=== PATIENT | female | born 1970 ===

== ENCOUNTER → 2022-07-25 13:51 | Outpatient (BNVA) | payer OTHER, SELFPAY | PROVIDERS: PCP Family Medicine; Visit Provider Physician Assistant | DX: M51.26 Other intervertebral disc displacement, lumbar region (principal) | CPT/HCPCS: 99212 ==

== ENCOUNTER 2022-08-25 12:40 | Outpatient (REF) | payer OTHER, SELFPAY ==
--- NOTE | ~2022-08-25 | MR_ITS ---
EXAMINATION: MR LUMBAR SPINE WITHOUT AND WITH CONTRAST CLINICAL INFORMATION: Other intervertebral disc displacement, lumbar region. Status post surgery. COMPARISON: Lumbar spine MRI 12/18/2021. TECHNIQUE: MRI of the lumbar spine was obtained using routine sequences without and with intravenous contrast. A total of 7 mL Gadavist was intravenously administered. FINDINGS: The lumbar vertebral bodies maintain normal heights and alignment. There is mild disc height loss at L4-L5. No bone marrow edema is seen. The distal spinal cord appears normal. The conus medullaris terminates normally at the T12-L1 level. There is no abnormal cauda equina nerve root enhancement. The extraspinal soft tissues are within normal limits. SPINAL LEVELS: L1-L2: No posterior disc abnormality. No spinal canal or neural foraminal stenosis. L2-L3: Unchanged shallow left foraminal protrusion. No spinal canal or neural foraminal stenosis. L3-L4: Postsurgical changes seen within the soft tissues presumably related to microdiscectomy. Small shallow left foraminal protrusion, decreased in size from prior and without compression of the exiting left L3 nerve root. No spinal canal stenosis. Mild facet arthropathy. L4-L5: Disc bulging with moderate facet arthropathy. Bilateral subarticular stenosis with compression of both traversing L5 nerve roots in the subarticular zones without significant change. No neural foraminal stenosis. L5-S1: Disc bulging with moderate facet arthropathy. Mild narrowing left subarticular zone without significant change. MR/MR lumbar spine wo/w con IMPRESSION: 1. At L4-L5 there is bilateral subarticular stenosis with compression of both traversing L5 nerve roots without significant change. 2. At L3-L4 there is interval decrease size of the left foraminal protrusion without compression of the exiting left L3 nerve root. 3. At L2-L3 there is unchanged shallow left foraminal protrusion without nerve root compression.
== END 2022-08-25 12:41 | disposition home or self-care (01) ==
LOC: HO.MRI 12:40
PROVIDERS: PCP Family Medicine; Visit Provider Physician Assistant
DX: M51.26 Other intervertebral disc displacement, lumbar region (principal)
CPT/HCPCS: 72158; A9585

== ENCOUNTER → 2022-08-29 15:16 | Outpatient (BNVA) | payer OTHER, SELFPAY | PROVIDERS: PCP Family Medicine; Visit Provider Physician Assistant | DX: M51.26 Other intervertebral disc displacement, lumbar region (principal); M54.40 Lumbago with sciatica, unspecified side | CPT/HCPCS: 99212 ==

== ENCOUNTER 2022-10-30 11:21 | Day surgery (SDC) | payer OTHER, SELFPAY ==
--- NOTE | 2022-09-25 | ECG_ITS ---
Test Reason : PREOP Blood Pressure : / mmHG Vent. Rate : 056 BPM Atrial Rate : 056 BPM P-R Int : 190 ms QRS Dur : 098 ms QT Int : 416 ms P-R-T Axes : 059 005 -01 degrees QTc Int : 401 ms Sinus bradycardia Nonspecific T wave abnormality Abnormal ECG No previous ECGs available Referred By: Genna Still Electronically Signed By:SCOTT MAS
[2022-09-25 13:35] VITALS: BP 132/87; PULSE 70; RESP 20; O2SAT 96; BMI 31.4
--- NOTE | 2022-09-25 13:59 | P.CONAN_ITS ---
HPI - Anesthesia Eval Consult details Narrative: 52yo F for Left L4-5 Lumbar Laminectomy/disc/decompression, 10/30/22 Medically optimized Chronic opioid No recent illness No chest pain. Chronic SOB at baseline. Activity limited to back pain MARILIN with CPAP QHS FBS ~140-150 PMFSH Active Problems Active Problems: All Active Problems (Updated 09/24/22 @ 13:53 by Nola Parmar RN) Lumbar disc herniation (Acute) Past Medical History Medical History (Updated 10/30/22 @ 13:21 by SYLVIE Wise) Anxiety Asthma Bipolar 1 disorder Depression Diabetes Elevated cholesterol GERD (gastroesophageal reflux disease) HTN (hypertension) Numbness Sleep apnea Family History Family history of problems with anesthesia: No Surgical History Surgical History (Updated 09/24/22 @ 13:55 by Nola Parmar RN) History of back surgery Hx of carpal tunnel repair Hx of section Hx of cholecystectomy Hx of knee surgery History of Problems with Anesthesia: No Social History Social History Are you a primary career development coordinator/teacher to a significant other at home: No Do you presently have visiting nurse or other home services: Yes Patient Tobacco Use Status: Current everyday Tobacco user Tobacco use type: Cigarette Cigarettes Per Day: 10 Meds Allergies Allergy/AdvReac Type Severity Reaction Status Date / Time morphine [From MS Contin] Allergy Itching Verified 09/24/22 13:56 quetiapine [From Seroquel] Allergy Swelling Verified 09/24/22 13:55 Home Medications Medication Instructions Recorded Confirmed Last Taken Type acetaminophen 325 mg tablet 650 mg PO TID PRN Headache 09/25/22 09/25/22 Unknown History albuterol sulfate 2.5 mg/3 mL 2.5 mg inhalation BID PRN Wheezing 09/25/22 09/25/22 10/30/22 History (0.083 %) solution for nebulization amlodipine 5 mg tablet 5 mg PO DAILY 09/25/22 09/25/22 Unknown History cetirizine 10 mg tablet 10 mg PO DAILY 09/25/22 09/25/22 Unknown History cholecalciferol (vitamin D3) 125 125 mcg PO DAILY 09/25/22 09/25/22 Unknown History mcg (5,000 unit) tablet clonazepam 0.5 mg tablet 0.5 mg PO BID PRN Anxiety 09/25/22 09/25/22 Unknown History clonidine HCl 0.3 mg tablet 0.3 mg PO BEDTIME 09/25/22 09/25/22 Unknown History dulaglutide 0.75 mg/0.5 mL 0.75 mg subcut QWEEK 09/25/22 09/25/22 10/25/22 History subcutaneous pen injector (Trulicity) duloxetine 60 mg capsule,delayed 120 mg PO DAILY 09/25/22 09/25/22 Unknown History release empagliflozin 10 mg tablet 10 mg PO DAILY 09/25/22 09/25/22 Unknown History (Jardiance) fluticasone 500 mcg-salmeterol 50 1 ea inhalation DAILY 09/25/22 09/25/22 Unknown History mcg/dose blistr powdr for inhalation (Advair Diskus) fluticasone propionate 50 2 spray intranasal DAILY 09/25/22 09/25/22 Unknown History mcg/actuation nasal spray,suspension ibuprofen 800 mg tablet 800 mg PO Q8H PRN Pain 09/25/22 09/25/22 Unknown History insulin glargine 100 unit/mL 40 unit subcut BEDTIME PRN 09/25/22 09/25/22 10/29/22 History subcutaneous solution (Lantus Hyperglycemia U-100 Insulin) lidocaine 5 % topical patch 1 patch topical DAILY 09/25/22 09/25/22 Unknown History lisinopril 20 mg tablet 20 mg PO DAILY 09/25/22 09/25/22 Unknown History mirtazapine 30 mg tablet 30 mg PO BEDTIME 09/25/22 09/25/22 Unknown History omeprazole 40 mg capsule,delayed 40 mg PO DAILY 09/25/22 09/25/22 Unknown History release oxycodone 15 mg tablet 15 mg PO TID PRN Pain 09/25/22 09/25/22 Unknown History prazosin 2 mg capsule 2 mg PO BEDTIME 09/25/22 09/25/22 Unknown History sennosides 8.6 mg-docusate sodium 2 tab PO BEDTIME 09/25/22 09/25/22 Unknown History 50 mg tablet (Senna Plus) tizanidine 4 mg tablet 4 mg PO TID 09/25/22 09/25/22 Unknown History trazodone 50 mg tablet 50 mg PO BEDTIME 09/25/22 09/25/22 Unknown History Exam Exam Date and Time: September 25, 2022 1359 Height,Weight and Vital Signs: Height 5 ft 1 in Weight 75.4 kg Last Vital Signs Pulse 70 09/25/22 13:35 Resp 20 09/25/22 13:35 BP 132/87 09/25/22 13:35 Pulse Ox 96 09/25/22 13:35 O2 Del Method Room Air 09/25/22 13:35 Pertinent Lab Results Pertinent Lab Results: Lab Results 09/25/22 09/25/22 Range/Units 14:23 14:23 WBC 9.1 (4.8-10.8) X10*3/uL RBC 5.08 (4.20-5.50) X10*6/uL Hgb 14.3 (12.0-16.0) g/dl Hct 43.0 (37.0-47.0) % MCV 84.6 (80.0-98.0) fL MCH 28.1 (27.0-33.0) pg MCHC 33.3 (31.0-35.0) g/dl RDW 14.8 (11.0-16.0) % Plt Count 297 (160-400) X10*3/uL MPV 10.2 (9.4-12.3) fL Absolute Nucleated RBC 0.000 (0.0-0.012) X10*3/uL Nucleated RBC % (auto) 0.0 (0.0-0.2) /100WBC Sodium 140 (135-145) mmol/L Potassium 4.0 (3.3-5.1) mmol/L Chloride 105 (96-108) mmol/L Carbon Dioxide 26 (22-29) mmol/L Anion Gap 13 (12-20) BUN 12 (9-16) mg/dL Creatinine 0.69 (0.5-1.4) mg/dL Estim Creat Clear Calc 87.6 Estimated GFR > 60 Random Glucose 96 (60-115) mg/dL Calcium 9.8 (8.4-10.2) mg/dL Narrative Narrative: EKG 09/2022 Vent. Rate : 056 BPM ? ? Atrial Rate : 056 BPM ?? P-R Int : 190 ms? QRS Dur : 098 ms ? ? QT Int : 416 ms ? ? ? P-R-T Axes : 059 005 -01 degrees ?? QTc Int : 401 ms ? Sinus bradycardia Nonspecific T wave abnormality Abnormal ECG No previous ECGs available (No change c/w outside facility) Airway Mallampati Class: I TM Dist: >3cm Neck ROM: Limited Loose/Missing/Broken Teeth: Yes (temporary crown right upper) Heart: RRR Lungs: CTAB Assessment and Plan Assessment Anesthesia Assessment: Anesthesia Plan Discussed, Smoking Cess. Discussed and PAT Visit Final Anesthetic Review Family History of Problems with Anesthesia: No History of Problems with Anesthesia: No
[2022-09-25 14:53] LABS: Hemoglobin 14.3 g/dl (12.0-16.0); Mean Corpuscular HGB Conc 33.3 g/dl (31.0-35.0); Mean Corpuscular Hemoglobin 28.1 pg (27.0-33.0); Mean Corpuscular Volume 84.6 fL (80.0-98.0); Mean Platelet Volume 10.2 fL (9.4-12.3); Platelet Count 297 X10*3/uL (160-400); Red Blood Count 5.08 X10*6/uL (4.20-5.50); Red Cell Distribution Width 14.8 % (11.0-16.0); White Blood Count 9.1 X10*3/uL (4.8-10.8)
[2022-09-25 16:12] LABS: Anion Gap 13 (12-20); Blood Urea Nitrogen 12 mg/dL (9-16); Calcium 9.8 mg/dL (8.4-10.2); Carbon Dioxide 26 mmol/L (22-29); Chloride 105 mmol/L (96-108); Creatinine Clr Calc Pharmacy 87.6; Estimated Glomerular Filt Rate > 60; Glucose Random 96 mg/dL (60-115); Sodium 140 mmol/L (135-145)
[2022-10-30] VITALS (13 sets, daily range): BP systolic 104–155; BP diastolic 66–93; PULSE 63–86; RESP 16–24; TEMP 36.1–36.4; O2SAT 93–98
--- NOTE | ~2022-10-30 | FL_ITS ---
EXAMINATION: XR FLUOROSCOPY WITH IMAGES CLINICAL INFORMATION: L4-L5 lumbar laminectomy-decompression, left. COMPARISON: None available. TECHNIQUE: Fluoroscopy Supervised By: Dr. Perez Colmenares. Fluoroscopy Time: 0.0 minutes (less than 10 seconds). Cumulative Dose: 1.25 mGy. DAP: 0.0201 Gycm2. Images: 1. FINDINGS: Single lateral interoperative view of the lumbar spine demonstrates instrument placement projecting over the posterior elements at the L4-L5 level. FL/FL guidance in OR IMPRESSION: Fluoroscopy for pain management procedure.
--- NOTE | 2022-10-30 07:13 | P.HPSUR_ITS ---
Pre-Procedural Eval Section A Date of Service: 10/30/22 The patient is an INPATIENT: No Changes since office visit: No Cold of Flu in the past 2 weeks, No New Medical Problems, No Changes in Medication and No Patient answered all questions The History & Physical has been completed within 30 days and I have reviewed it.: No Section B Chief Complaint: Lumbago with sciatica,intervertebral disc displace Allergies: Allergies Allergy/AdvReac Type Severity Reaction Status Date / Time morphine [From MS Contin] Allergy Itching Verified 09/24/22 13:56 quetiapine [From Seroquel] Allergy Swelling Verified 09/24/22 13:55 Review of Systems Sugical H&P ROS: Negative: Constitution, Cardiovascular, Respiratory, N eurological, Psychiatric, Hem-Onc, Allergic/Immunologic, Gastrointestinal, Genitourinary, Musculoskeletal, Integumentary, Endocrine and Eyes/Ears/Nose/Throat Exam Surgical H&P Exam: Not Evaluated: HEENT, Not Evaluated: Heart, Not Evaluated: Lungs, Not Evaluated: Extremities, Not Evaluated: Abdomen, Not Evaluated: Skin and Not Evaluated: Neurological Plan Diagnosis/Plan: Unchanged I have reviewed the history and physical and performed a pertinent physical examination on my patient. No changes have occurred unless specified. left L4-5 laminotomy and decompression Time Spent With Patient Time: Total time managing care of this patient today _10___ minutes.
--- NOTE | 2022-10-30 11:38 | P.CONAN_ITS ---
[facility] Active Problems Active Problems: All Active Problems (Updated 09/24/22 @ 13:53 by Nola Parmar RN) Lumbar disc herniation (Acute) Past Medical History Medical History (Updated 09/24/22 @ 13:53 by Nola Parmar RN) Anxiety Asthma Bipolar 1 disorder Depression Diabetes Elevated cholesterol GERD (gastroesophageal reflux disease) HTN (hypertension) Numbness Sleep apnea Family History Family history of problems with anesthesia: No Surgical History Surgical History (Updated 09/24/22 @ 13:55 by Nola Parmar RN) History of back surgery Hx of carpal tunnel repair Hx of section Hx of cholecystectomy Hx of knee surgery History of Problems with Anesthesia: No Social History Social History Are you a primary insurance healthcare consultant to a significant other at home: No Do you presently have visiting nurse or other home services: Yes Patient Tobacco Use Status: Current everyday Tobacco user Tobacco use type: Cigarette Cigarettes Per Day: 10 Use of substances other than those prescribed or required for medical reasons: No Have you been hit, kicked, punched, or otherwise hurt by someone within the past year? If so, by whom?: No Are you DNR?: No Advance Directives: No Advance Directives Information Provided: Yes Advance Directives on File: No Recently lost weight without trying: No Eating poorly because of decreased appetite: No Nutrition Risks: No Nutritional Risk Patient : No : No Poor oral hygiene: Yes (crown on the top) Meds Allergies Allergy/AdvReac Type Severity Reaction Status Date / Time morphine [From MS Contin] Allergy Itching Verified 09/24/22 13:56 quetiapine [From Seroquel] Allergy Swelling Verified 09/24/22 13:55 Active Medications: Current Medications Albuterol Sulfate (Albuterol Sulfate (0.083%) 2.5 Mg/3 Ml Vial.Neb) 2.5 mg INHALE ONCE PRN PRN Reason: Shortness of Breath/Wheezing Lactated Ringer's (Lr) 1,000 mls @ 100 mls/hr IVCONT .Q10H [facility] Home Medications Medication Instructions Recorded Confirmed Last Taken Type acetaminophen 325 mg tablet 650 mg PO TID PRN Headache 09/25/22 09/25/22 Unknown History albuterol sulfate 2.5 mg/3 mL 2.5 mg inhalation BID PRN Wheezing 09/25/22 09/25/22 Unknown History (0.083 %) solution for nebulization amlodipine 5 mg tablet 5 mg PO DAILY 09/25/22 09/25/22 Unknown History cetirizine 10 mg tablet 10 mg PO DAILY 09/25/22 09/25/22 Unknown History cholecalciferol (vitamin D3) 125 125 mcg PO DAILY 09/25/22 09/25/22 Unknown History mcg (5,000 unit) tablet clonazepam 0.5 mg tablet 0.5 mg PO BID PRN Anxiety 09/25/22 09/25/22 Unknown History clonidine HCl 0.3 mg tablet 0.3 mg PO BEDTIME 09/25/22 09/25/22 Unknown History dulaglutide 0.75 mg/0.5 mL 0.75 mg subcut QWEEK 09/25/22 09/25/22 Unknown History subcutaneous pen injector (Trulicity) duloxetine 60 mg capsule,delayed 120 mg PO DAILY 09/25/22 09/25/22 Unknown History release empagliflozin 10 mg tablet 10 mg PO DAILY 09/25/22 09/25/22 Unknown History (Jardiance) fluticasone 500 mcg-salmeterol 50 1 ea inhalation DAILY 09/25/22 09/25/22 Unknown History mcg/dose blistr powdr for inhalation (Advair Diskus) fluticasone propionate 50 2 spray intranasal DAILY 09/25/22 09/25/22 Unknown History mcg/actuation nasal spray,suspension ibuprofen 800 mg tablet 800 mg PO Q8H PRN Pain 09/25/22 09/25/22 Unknown History insulin glargine 100 unit/mL 40 unit subcut BEDTIME PRN 09/25/22 09/25/22 Unknown History subcutaneous solution (Lantus Hyperglycemia U-100 Insulin) lidocaine 5 % topical patch 1 patch topical DAILY 09/25/22 09/25/22 Unknown History lisinopril 20 mg tablet 20 mg PO DAILY 09/25/22 09/25/22 Unknown History mirtazapine 30 mg tablet 30 mg PO BEDTIME 09/25/22 09/25/22 Unknown History omeprazole 40 mg capsule,delayed 40 mg PO DAILY 09/25/22 09/25/22 Unknown History release oxycodone 15 mg tablet 15 mg PO TID PRN Pain 09/25/22 09/25/22 Unknown History prazosin 2 mg capsule 2 mg PO BEDTIME 09/25/22 09/25/22 Unknown History sennosides 8.6 mg-docusate sodium 2 tab PO BEDTIME 09/25/22 09/25/22 Unknown History 50 mg tablet (Senna Plus) tizanidine 4 mg tablet 4 mg PO TID 09/25/22 09/25/22 Unknown History trazodone 50 mg tablet 50 mg PO BEDTIME 09/25/22 09/25/22 Unknown History Exam Exam Date and Time: October 30, 2022 1138 Height,Weight and Vital Signs: Height 5 ft 1 in Weight 75.4 kg Last Vital Signs Pulse 70 09/25/22 13:35 Resp 20 09/25/22 13:35 BP 132/87 09/25/22 13:35 Pulse Ox 96 09/25/22 13:35 O2 Del Method Room Air 09/25/22 13:35 Pertinent Lab Results Pertinent Lab Results: Laboratory Tests 09/25/22 09/25/22 14:23 14:23 WBC 9.1 RBC 5.08 Hgb 14.3 Hct 43.0 MCV 84.6 MCH 28.1 MCHC 33.3 RDW 14.8 Plt Count 297 MPV 10.2 Absolute Nucleated RBC 0.000 Nucleated RBC % (auto) 0.0 Sodium 140 Potassium 4.0 Chloride 105 Carbon Dioxide 26 Anion Gap 13 BUN 12 Creatinine 0.69 Estim Creat Clear Calc 87.6 Estimated GFR > 60 Random Glucose 96 Calcium 9.8 Airway Mallampati Class: II TM Dist: >3cm Neck ROM: Full Assessment and Plan Assessment Anesthesia Assessment: Anesthesia Plan Discussed and Chart Reviewed Final Anesthetic Review Family History of Problems with Anesthesia: No History of Problems with Anesthesia: No NPO: Yes ASA Class: III Final Preanesthetic Review: No Changes in Pt Med Stat, Meds/Allgs Chart Reviewed, Consent Obtained/Reviewed and Anes Risks/Benef Reviewed Patient Risk: Intermediate Procedure Risk: Intermediate Anesthetic Plan Anesthetic Plan: GA Disposition: Standard PACU
[2022-10-30 12:09] LABS: Glucose, Whole Blood 138 mg/dL (60-115)
[2022-10-30] MEDS: methocarbamoL 750 MG TABLET PO (12:31)
[2022-10-30] MEDS: Lactated Ringers 1,000 ML 100 ML IVCONT (12:31)
[2022-10-30] MEDS: Gabapentin 300 MG CAPSULE PO (12:31)
--- NOTE | 2022-10-30 13:20 | P.DS_ITS ---
DS: Providers Provider Date of Service: 10/30/22 Primary care physician: Leonora Bai NP DS: Diagnosis Discharge Diagnosis (1) Lumbago: Status: Acute DS: Summary Time Spent with Patient Time attestation: Total time managing care of this patient today ____ minutes. Discharge coordination time: Less than 30 minutes Quality: Safe Use of Opioids Does Pt have an Active Cancer Diagnosis on the Problem List?: No Quality: Stroke Does the patient have a stroke diagnosis?: No Physical Exam Vital Signs: Vital Signs: Last Vital Signs Temp 97.0 F 10/30/22 12:01 Pulse 63 10/30/22 12:01 Resp 18 10/30/22 12:01 BP 146/80 H 10/30/22 12:01 Pulse Ox 97 10/30/22 12:01 O2 Del Method Room Air 10/30/22 12:01 BMI result Body Mass Index 31.4 DS: Data Data Completed and Pending Labs on day of discharge: Laboratory Results - last 24 hr 10/30/22 12:05 POC Glucose 138 H Discharge Plan Discharge Patient Disposition: Home, Self-Care Referrals: Leonora Bai NP [Primary Care Provider] - 1 Week Discharge Medications: Continued insulin glargine [Lantus U-100 Insulin] 100 unit/mL solution 40 unit subcut BEDTIME PRN (Reason: Hyperglycemia) Patient Comments: 10 units lantus last pm Dose Change Rx Instructions: if Blood sugar is greater that 140 duloxetine 60 mg capsule,delayed release(DR/EC) 120 mg PO DAILY cetirizine 10 mg tablet 10 mg PO DAILY tizanidine 4 mg tablet 4 mg PO TID cholecalciferol (vitamin D3) 125 mcg (5,000 unit) tablet 125 mcg PO DAILY fluticasone propionate 50 mcg/actuation [place],Suspension 2 spray INTRANASAL DAILY Rx Instructions: administer into each nostril fluticasone propion-salmeterol [Advair Diskus] 500-50 mcg/dose blister with device 1 ea inhalation DAILY sennosides-docusate sodium [Senna Plus] 8.6-50 mg tablet 2 tab PO BEDTIME oxycodone 15 mg tablet 15 mg PO TID PRN (Reason: Pain) lidocaine 5 % adhesive patch,medicated 1 patch topical DAILY prazosin 2 mg capsule 2 mg PO BEDTIME clonazepam 0.5 mg tablet 0.5 mg PO BID PRN (Reason: Anxiety) mirtazapine 30 mg tablet 30 mg PO BEDTIME albuterol sulfate 2.5 mg /3 mL (0.083 %) solution for nebulization 2.5 mg inhalation BID PRN (Reason: Wheezing) Trulicity 0.75 mg/0.5 mL Pen Injector 0.75 mg SUBCUT QWEEK Rx Instructions: thursday acetaminophen 325 mg Tablet 650 mg PO TID PRN (Reason: Headache) omeprazole 40 mg Capsule,Delayed Release(Dr/Ec) 40 mg PO DAILY trazodone 50 mg tablet 50 mg PO BEDTIME ibuprofen 800 mg Tablet 800 mg PO Q8H PRN (Reason: Pain) lisinopril 20 mg tablet 20 mg PO DAILY clonidine HCl 0.3 mg tablet 0.3 mg PO BEDTIME amlodipine 5 mg tablet 5 mg PO DAILY Jardiance 10 mg tablet 10 mg PO DAILY Discharge Orders: Discharge Order (Routine); Ordered 10/30/22 Ordered By: Karl Honeycutt Diet: Advance to usual diet Activity on Discharge: As tolerated Activity Restrictions/Additional Instructions: After your spinal surgery we ask you to observe the following restrictions/guidelines: Activity: It is normal to feel some discomfort as you increase your activity, but that will improve with time. We ask you avoid heavy lifting or acitivities that cause pain. As a general rule, 8lbs is a safe limit for lifting right after surgery. Walk as much as you feel comfortable but not to exhaustion. You will feel extra tired the first few days after surgery. Stay well hydrated. It is OK to walk up and down stairs You may return to driving when you are off narcotics (such as vicodin, oxycodone, dilaudid, etc), and you are back to normal functional capacity. If you have any concerns please check with office before driving. Return to work is specific to each patient and each surgery, so please speak with your doctor/PA at first follow up. Please bring paperwork such as FMLA at that time if you need it filled out. Medications: We will give you a short supply of narcotics after surgery (usually one weeks worth). If you need more please call the office but do not use more than pres cribed. You will need to give our office 48 hours notice if you need narcotics refilled and we do not fill narcotics on weekends or evenings. If you are on a narcotic, it is a good idea to take a stool softener such as colace or senna to avoid constipation If you take blood thinner such as aspirin, Plavix, Coumadin, Effient, Eliquis etc for conditions such as Afib, DVT, Pulmonary embolus, coronary disease, stents etc please speak with your surgeon about specific details as to when you can resume these medications. You can resume NSAIDs on post op day 1 (eg: Motrin, Naproxen, etc). Follow up: Please call the office, , after surgery to arrange a 3 week follow up for wound check. Wound Care: You may remove your dressing on the first day after surgery. You may leave open to air. Please do not remove the steri strips underneath. they will fall off on their own in one week. IT IS NORMAL FOR THE WOUND TO OOZE OR BE BLOODY FOR A FEW DAYS AFTER SURGERY. IF THIS HAPPENS JUST PLACE NEW DRESSING OVER IT TO AVOID STAINING CLOTHES. You may shower on post op day # 1 We ask that you do not let the water soak the wound. If it does get wet, just towel dry lightly. Please do not scrub your incision or place any type of chemical/ointment on the wound. No tub baths, pools or jacuzzis for one month. If you have any leaking or redness from your wound, or fevers, please call office Discharge Date/Time: 10/30/22 17:55
--- NOTE | 2022-10-30 15:12 | P.OP_ITS ---
Operative Note Operative Note Date of Service: 10/30/22 Narrative: Preoperative Diagnosis: Left L4-5 lateral recess stenosis with left radiculopathy Operation: left L4-5 pk Laminotomy, Partial facetectomy and foraminotomy with use of microscope Consent Informed Consent was obtained for this operation. I have explained the nature, purpose and benefits of the operation. I have discussed the risks and benefit of the operation including possible complications or adverse events with patient/family. Alternative(s) were discussed with the patient with their relative benefits and risks as well as the consequences of not accepting the operation were included in obtaining consent. Surgeon: CARMEN MOSER MD, PHD Procedure Assisted By: Jose Ramon Pac] Description of Procedure the patient is suffering from severe left lumbar radiculopathy. MRI shows mild to moderate L4-5 lateral recess stenosis.. The patient was offered a decompression Of the left L5 nerve root. The procedure complications were explained. The patient was consented. The patient was brought to the operating room and endotracheally intubated. The patient was turned in prone position on the Cale frame. Prep and drape was done followed by timeout. The Physician furniture removalist's assistant provided access. A mid lumbar incision was made followed by release of the paravertebral muscle on the left side to expose the L4-5 lamina and facet joints. An intraoperative x-ray was obtained to confirm the correct level. The microscope was brought in. I took over the procedure. The high-speed drill was used to do a L4-5 pk laminotomy until flavum ligament was reached. a 2. Kerr[place] was used to expand the laminotomy near flush to the pedicles and to include a partial facetectomy. The flavum and was opened and resected with a 3. Kerrison to decompress the underlying thecal sac. The flavum ligament was re moved from the lateral recess to decompress the exiting L5 nerve root. A long nerve hook could be easily passed along the medial side of the pedicle as a sign of adequate decompression. The microscope was removed. Hemostasis was done. The physician furniture removalist's assistant close the Incision in 2 layers. Steri-Strips were used to approximate incision. An OpSite with Tegaderm was used to cover the incision. Al l sponge needle counts were correct. Patient was extubated and transported in stable is to recovery room. Anesthesia: General Estimated Blood Loss (ml): 20 Complications: None Duration of Surgery: Under 30 Minutes Postoperative Plan: Discharge to home
[2022-10-30] MEDS: oxyCODONE HCl Immed Release 5 MG TABLET 10 MG PO (16:20)
[2022-10-30] MEDS: HYDROmorphone HCl 0.5 MG/0.5 ML SYRINGE IVPUSH ×4 (16:20→16:55)
== END 2022-10-30 17:55 | disposition home or self-care (01) ==
PROVIDERS: Nurse Practitioner; PCP Nurse Practitioner Family; Visit Provider Neurological Surgery
PROC: (CPT 63047; principal; 2022-10-30 13:10)
DX: M51.26 Other intervertebral disc displacement, lumbar region (principal); M54.40 Lumbago with sciatica, unspecified side; G89.29 Other chronic pain; M48.061 Spinal stenosis, lumbar region without neurogenic claudication; R20.0 Anesthesia of skin; J45.909 Unspecified asthma, uncomplicated; I10 Essential (primary) hypertension; E11.9 Type 2 diabetes mellitus without complications; E78.00 Pure hypercholesterolemia, unspecified; G47.33 Obstructive sleep apnea (adult) (pediatric); Z79.85 Long-term (current) use of injectable non-insulin antidiabetic drugs; Z79.899 Other long term (current) drug therapy; Z99.89 Dependence on other enabling machines and devices; F17.200 Nicotine dependence, unspecified, uncomplicated
CPT/HCPCS: 63047; 36415; 80048; 82947; 85027; 93005; J0131; J0690; J1100; J1170; J1885; J2250; J2370; J2371; J2405; J3010

== ENCOUNTER → 2022-10-30 11:21 | Outpatient (BNV) | payer OTHER, SELFPAY | PROVIDERS: PCP Nurse Practitioner Family; Visit Provider Neurological Surgery | DX: M48.07 Spinal stenosis, lumbosacral region (principal) | CPT/HCPCS: 63047; 99499 ==

== ENCOUNTER 2022-12-09 15:23 | Outpatient (AMB) | payer OTHER, SELFPAY ==
--- NOTE | 2022-12-09 15:29 | A.SPINEOV_ITS ---
Intake Intake Visit Reasons: 1st post op Intake Note: Mr. Virgilio Silvestre is here today for her 1st post-op visit. 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 ?She underwent a left L4-5 pk-laminotomy, partial facetectomy and foraminotomy on October 30 2022. She states that her left leg pain is slightly improved, but reports she continue radicular symptoms originating in her low back and radiating around the front of her leg to the top of her foot. She does feel that her low back is less painful, but still endorses axial low back pain. She states that she has been taking [id number] medications to help deal with the pain, and also will be starting physical therapy on December 11. She is hopeful that physical therapy will help her to increase her strength and reduce her pain in the lower extremities. She is able to complete the majority of her ADLs, and does feel that she is slowly getting better. We will schedule her for 6 week follow-up at which time we will review her progress with physical therapy, and obtain standing x-rays. On physical exam the patient has sensation grossly intact. She ambulates with the assistance of a walker. Her incision site is clean, dry, intact, and appears well healing. It is without erythema, edema, fluctuance, or purulence. Total amount of time spent in this visit was 20 minutes in discussion of symptoms, operative XR imaging results and subsequent plan of care. Karl Colmenares MD,PhD [facility] Coding Level of Care Code Est Pt Level 3 (57751) Diagnoses Status post lumbar spine surgery for decompression of spinal cord Z98.890
== END 2022-12-09 16:00 | disposition home or self-care (01) ==
PROVIDERS: PCP Nurse Practitioner Family; Visit Provider Physician Assistant
DX: Z98.890 Other specified postprocedural states (principal)
CPT/HCPCS: 99213

== ENCOUNTER → 2022-12-09 15:23 | Outpatient (BNVA) | payer OTHER, SELFPAY | PROVIDERS: PCP Nurse Practitioner Family; Visit Provider Physician Assistant | DX: Z48.89 Encounter for other specified surgical aftercare (principal) | CPT/HCPCS: 99212 ==

== ENCOUNTER 2022-12-30 11:54 | Outpatient (REF) | payer OTHER, SELFPAY | END 2022-12-30 11:55 | disposition home or self-care (01) | LOC: HO.HOSX 11:54 | PROVIDERS: Visit Provider Physician Assistant | DX: Z13.89 Encounter for screening for other disorder (principal) ==

== ENCOUNTER 2023-01-21 14:45 | Outpatient (REF) | payer OTHER, SELFPAY ==
--- NOTE | ~2023-01-21 | XR_ITS ---
EXAMINATION: XR LUMBOSACRAL SPINE WITH OBLIQUES CLINICAL INFORMATION: Postprocedural status. Status post L4-L5 laminectomy decompression left 11/05/2022, COMPARISON: Fluoroscopic guidance 06/02/2022. MR lumbar spine 08/25/2022. TECHNIQUE: 4 views of the lumbar spine including AP, lateral, flexion, extension. FINDINGS: Slight leftward curvature of the lumbar spine. Mild degenerative changes in the imaged lower thoracic spine. Straightening of the normal lumbar lordosis. Facet arthritis in the lower lumbar spine. Multilevel lumbar spondylosis most notable at L4-L5 with loss of disc space height and hypertrophic change. Alignment is preserved on flexion and extension views. XR/XR lumbar spine 4V min IMPRESSION: Multilevel lumbar spondylosis most notable at L4-L5 with loss of disc space height and hypertrophic change. Alignment is preserved on flexion and extension views.
== END 2023-01-21 14:46 | disposition home or self-care (01) ==
LOC: HO.HOSX 14:45
PROVIDERS: Visit Provider Physician Assistant
DX: Z48.89 Encounter for other specified surgical aftercare (principal)
CPT/HCPCS: 72110; 99212

== ENCOUNTER 2023-01-21 14:45 | Outpatient (AMB) | payer OTHER, SELFPAY ==
--- NOTE | 2023-01-21 15:44 | MHC.OFFVIS ---
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 Allergies morphine [From MS Contin] Allergy (Verified 09/24/22 13:56) Itching quetiapine [From Seroquel] Allergy (Verified 09/24/22 13:55) Swelling PFS Medical History (Updated 01/21/23 @ 15:54 by SYLVIE Wise) Diabetes GERD (gastroesophageal reflux disease) Bipolar 1 disorder Anxiety Depression Numbness Sleep apnea Asthma Elevated cholesterol HTN (hypertension) Surgical History (Updated 12/09/22 @ 16:11 by SYLVIE Wise) History of back surgery Hx of knee surgery Hx of carpal tunnel repair Hx of cholecystectomy Hx of section Social History Are you a primary health care marketing specialist to a significant other at home: No Do you presently have visiting nurse or other home services: Yes Patient Tobacco Use Status: Current everyday Tobacco user Tobacco use type: Cigarette Cigarettes Per Day: 10 Assessment & Plan Assessment & Plan (1) Left lumbar radiculopathy: Code(s): M54.16 - Radiculopathy, lumbar region Plan Procedure: Left L4-5 pk Laminotomy Josie comes in today for her 2nd postoperative visit after previously reporting she had no significant resolution of symptoms at her last visit. Unfortunately she continues to have her left lower extremity radiculopathy, and states that her pain is not improved much since she last saw us. She continues to describe her radiculopathy as a shooting pain that originates in her low back shoots down her left posterior thigh wraps around the anterior knee and through the anterior tibialis. On physical exam she has 5/5 strength in her lower extremities with the exception of 4/5 strength on the left with knee extension. She reports that this strength deficit is pain limiting. She has no other neurological deficits. She is able to ambulate without the assistance of a cane or walker. She is able to rise from seated position without help but does utilize the chair to do so. We completed a set of lumbar x-rays in the office today which cannot shows any information regarding central canal stenosis or foraminal stenosis/nerve root impingement. Due to the persistence of her radiculopathy despite decompression surgery, tincture of time, and continued pain medication regimens (currently on Oxycodone 15mg TID and Tizanidine and Ibuprofen), it is recommended that she have an MRI of the lumbar spine with and without contrast completed at this time. We will call her with the results of her MRI. Karl Colmenares MD,PhD [facility] Orders: Orders MR lumbar spine wo/w con Today M54.16 - Radiculopathy, lumbar region Coding Level of Care Code Global (38225) Diagnoses Left lumbar radiculopathy M54.16
== END 2023-01-21 15:59 | disposition home or self-care (01) ==
PROVIDERS: PCP Nurse Practitioner Family; Visit Provider Physician Assistant
DX: M54.16 Radiculopathy, lumbar region (principal)
CPT/HCPCS: 99024

== ENCOUNTER → 2023-01-21 14:45 | Outpatient (BNVA) | payer OTHER, SELFPAY | PROVIDERS: PCP Nurse Practitioner Family; Visit Provider Physician Assistant ==

== ENCOUNTER 2023-03-09 10:12 | Outpatient (AMB) | payer OTHER, SELFPAY ==
--- NOTE | 2023-03-09 10:18 | A.OFFVIS_ITS ---
Intake Vital Signs 3 03/09/23 10:19 Height 5 ft 4 in Weight 170 lb BMI 29.2 Blood Pressure Location Rt brachial Position Sitting Respiration 12 Pulse 89 Pulse Source Pulse Oximeter Pulse Oximetry (%) 95 Oxygen Delivery Method Room Air Intake Visit Reasons: Radiculopathy lumbar, eval for SCS/conf Allergies morphine [From MS Contin] Allergy (Verified 03/09/23 10:21) Itching quetiapine [From Seroquel] Allergy (Verified 03/09/23 10:21) Swelling Medication List - Last Reconciled 03/09/23 by Robyn Watts LPN acetaminophen 650 mg PO TID PRN albuterol sulfate 2.5 mg inhalation BID PRN amlodipine 5 mg PO DAILY cetirizine 10 mg PO DAILY cholecalciferol (vitamin D3) 125 mcg PO DAILY clonazepam 0.5 mg PO BID PRN clonidine HCl 0.3 mg PO BEDTIME dulaglutide (Trulicity) 0.75 mg subcut QWEEK duloxetine 120 mg PO DAILY empagliflozin (Jardiance) 10 mg PO DAILY fluticasone propion-salmeterol 500-50 mcg/dose (Advair Diskus) 1 ea inhalation DAILY fluticasone propionate 50 mcg/actuation 2 sprays intranasal DAILY ibuprofen 800 mg PO Q8H PRN insulin glargine (Lantus U-100 Insulin) 40 units subcut BEDTIME PRN lidocaine 5% 1 patch topical DAILY lisinopril 20 mg PO DAILY mirtazapine 30 mg PO BEDTIME omeprazole 40 mg PO DAILY oxycodone 15 mg PO TID PRN prazosin 2 mg PO BEDTIME sennosides-docusate sodium 8.6-50 mg (Senna Plus) 2 tabs PO BEDTIME tizanidine 4 mg PO TID trazodone 50 mg PO BEDTIME HPI Radiculopathy lumbar, eval for SCS/conf 2 HPI0 Details 52-year-old female who presents today to the office for an evaluation of lumbar radiculopathy. She underwent a left L4-5 pk-laminotomy, a partial facetectomy, and a foraminotomy on October 30, 2022. She underwent L3-4 left-sided decompression last year, for which she had excellent initial results before worsening again. She reports axial low back pain that shoots down her left posterior thigh and sides and wraps around the anterior knee and through the anterior tibialis. The pain is described as constant pins and needle sensations and is rated at 10/10 in intensity. She is taking OTC medication, which helps to take the edge off. She is currently on oxycodone 15mg TID, Tizanidine, and Ibuprofen. She is unable to go to sleep or do her daily activities. She is on permanent disability. [facility] Medical History (Updated 03/13/23 @ 09:10 by Ayaan Maza MD) Diabetes GERD (gastroesophageal reflux disease) Bipolar 1 disorder Anxiety Depression Numbness Sleep apnea Asthma Elevated cholesterol HTN (hypertension) Surgical History (Updated 12/09/22 @ 16:11 by SYLVIE Wise) History of back surgery Hx of knee surgery Hx of carpal tunnel repair Hx of cholecystectomy Hx of section Social History Are you a primary manager urgent care to a significant other at home: No Do you presently have visiting nurse or other home services: Yes Patient Tobacco Use Status: Current everyday Tobacco user Tobacco use type: Cigarette Cigarettes Per Day: 10 Review of Systems Const All systems reviewed & are unremarkable except as noted in HPI and below Physical Exam Vital Signs: Last Vital Signs Pulse 89 03/09/23 10:19 Resp 12 03/09/23 10:19 Pulse Ox 95 03/09/23 10:19 Oxygen Delivery Method Room Air 03/09/23 10:19 BMI result Body Mass Index 29.2 General: Appears afebrile. Alert and oriented. Mood and affect appropriate. Follows and participates in conversation appropriately. Respiratory effort is unlabored. Able to transition from sit to stand unassisted. Ambulates with bilaterally normal heel strike and toe off. There is a lidocaine patches in place overlying the left sacroiliac joint. SIJ provocation tests including thigh thrust, compression, distraction and Marlyn are all positive Results Reviewed Results Reviewed: 02/14/23: MR LUMBAR SPINE 01/21/23: XR LUMBOSACRAL SPINE WITH OBLIQUES FINDINGS: Slight leftward curvature of the lumbar spine. Mild degenerative changes in the imaged lower thoracic spine. Straightening of the normal lumbar lordosis. Facet arthritis in the lower lumbar spine. Multilevel lumbar spondylosis most notable at L4-L5 with loss of disc space height and hypertrophic change. Alignment is preserved on flexion and extension views. IMPRESSION: Multilevel lumbar spondylosis most notable at L4-L5 with loss of disc space height and hypertrophic change. Alignment is preserved on flexion and extension views. 08/25/22: MR LUMBAR SPINE WITHOUT AND WITH CONTRAST FINDINGS: The lumbar vertebral bodies maintain normal heights and alignment. There is mild disc height loss at L4-L5. No bone marrow edema is seen. The distal spinal cord appears normal. The conus medullaris terminates normally at the T12-L1 level. There is no abnormal cauda equina nerve root enhancement. The extraspinal soft tissues are within normal limits. SPINAL LEVELS: L1-L2: No posterior disc abnormality. No spinal canal or neural foraminal stenosis. L2-L3: Unchanged shallow left foraminal protrusion. No spinal canal or neural foraminal stenosis. L3-L4: Postsurgical changes seen within the soft tissues presumably related to microdiscectomy. Small shallow left foraminal protrusion, decreased in size from prior and without compression of the exiting left L3 nerve root. No spinal canal stenosis. Mild facet arthropathy. L4-L5: Disc bulging with moderate facet arthropathy. Bilateral subarticular stenosis with compression of both traversing L5 nerve roots in the subarticular zones without significant change. No neural foraminal stenosis. L5-S1: Disc bulging with moderate facet arthropathy. Mild narrowing left subarticular zone without significant change. IMPRESSION: 1. At L4-L5 there is bilateral subarticular stenosis with compression of both traversing L5 nerve roots without significant change. 2. At L3-L4 there is interval decrease size of the left foraminal protrusion without compression of the exiting left L3 nerve root. 3. At L2-L3 there is unchanged shallow left foraminal protrusion without nerve root compression. Assessment & Plan Assessment & Plan (1) Post laminectomy syndrome: Code(s): M96.1 - Postlaminectomy syndrome, not elsewhere classified (2) Sacroiliac joint dysfunction: Code(s): M53.3 - Sacrococcygeal disorders, not elsewhere classified Plan Symptoms are likely a combination of post-laminectomy syndrome as well as sacroiliac joint dysfunction. To start off with we will schedule her for a left diagnostic sacroiliac joint injection. Discussed the risks and benefits of the procedure with the patient in detail. All questions were answered. The patient is on board with the plan. Justification for interventional therapy: ? Patient with average pain > 6/10 ? Patient has exhausted conservative therapy including acetaminophen, NSAIDs and neuropathic medications. Her pain precludes participation in physical therapy. I did have a discussion about the details of the spinal cord stimulation trial and implant procedures, as well as the psychology evaluation. If the diagnostic sacroiliac joint injection is not helpful, we will proceed with the process for a spinal cord stimulation implant. The patient is in agreement. Scribed for Dr. Maza by Trino Sanchez, certified medical technician assistant, on 03/09/2023. I, Dr. Maza, have personally reviewed and agree with the information entered by the scribe. Coding Level of Care Code New Pt Level 4 (92283) Diagnoses Post laminectomy syndrome M96.1 Sacroiliac joint dysfunction M53.3
[2023-03-09 10:19] VITALS: PULSE 89; RESP 12; O2SAT 95; BMI 29.2
== END 2023-03-09 11:33 | disposition home or self-care (01) ==
PROVIDERS: PCP Nurse Practitioner Family; Referring Provider Physician Assistant; Visit Provider Internal Medicine
DX: M96.1 Postlaminectomy syndrome, not elsewhere classified (principal); M53.3 Sacrococcygeal disorders, not elsewhere classified
CPT/HCPCS: 99204

== ENCOUNTER → 2023-03-09 10:12 | Outpatient (BNVA) | payer OTHER, SELFPAY | PROVIDERS: PCP Nurse Practitioner Family; Referring Provider Physician Assistant; Visit Provider Internal Medicine | DX: M96.1 Postlaminectomy syndrome, not elsewhere classified (principal); M53.3 Sacrococcygeal disorders, not elsewhere classified | CPT/HCPCS: 99202 ==

== ENCOUNTER 2023-03-25 06:31 | Outpatient (REF) | payer OTHER, SELFPAY ==
--- NOTE | ~2023-03-25 | FL_ITS ---
EXAMINATION: XR FLUOROSCOPY WITH IMAGES CLINICAL INFORMATION: Sacrococcygeal disorders, not elsewhere classified. COMPARISON: None available. TECHNIQUE: Fluoroscopy Supervised By: Dr. Ayaan Maza. Fluoroscopy Time: 0.1 minute. Cumulative Dose: 3.47 mGy. DAP: 0.372 Gycm2. Images: 2. FINDINGS: Images demonstrate needle placement injecting over the left sacroiliac joint FL/FL guidance in treatment room IMPRESSION: Fluoroscopy guidance for left sacroiliac joint injection.
== END 2023-03-25 06:32 | disposition home or self-care (01) ==
LOC: CF 06:31
PROVIDERS: Visit Provider Internal Medicine
DX: M53.3 Sacrococcygeal disorders, not elsewhere classified (principal)
CPT/HCPCS: 27096; J2795

== ENCOUNTER 2023-03-25 08:15 | Outpatient (AMB) | payer OTHER, SELFPAY ==
--- OUTSIDE RECORDS SUMMARY | 2023-03-25 08:17 | XMS_ITS | Continuity of Care Document ---
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 Name Role Phone Richardson BEND UP, Leonora Pérez Primary Care Physician [phone] Encounter [facility] Date(s): 05/14/19 - 05/14/[address] [address]- [facility] Discharge Disposition: A-D/C Home Attending Physician: Kole Steward MD Admitting Physician: Kole Steward MD Referring Physician: Not on Staff, Referring MD Allergies, Adverse Reactions, Alerts Substance Reaction Severity Status gabapentin swelling Active Lyrica dysphagia Active SEROquel body swelling - all over Act tony Immunizations Given and Recorded Vaccine Date Status Refusal Reason pneumococcal 23-valent vaccine 03/12/19 Given influenza virus vaccine, inactivated 03/12/19 Give n influenza virus vaccine, inactivated 01/19/18 Give n influenza virus vaccine, inactivated 02/16/17 Give n tetanus/diphtheria/pertussis, acel(Tdap) 07/29/13 Given Medications Advair Diskus 500 mcg-50 mcg inhalation powder 1, puffs, Inhalation, 2 times a day, j45.909, # 1 each, Refills 6, Tot. Refills 6, Maintenance, 04/27/19 12:48:00 EST, Powder, Route to Pharmacy Electronically, [id number], [facility]/pharmacy #[id number], 158, cm, 04/26/19 9:58:00 EST, H... Start Date: 04/27/19 Status: Ordered albuterol 0.083% inhalation solution 3 mL = 2.5 mg, Inhalation, Every 4 hours, PRN for wheezing, # 100 each, 1 Refills, Maintenance, 12/28/18 13:21:26 EDT, Solution Start Date: 12/28/18 Stop Date: 01/04/19 Status: Ordered amitriptyline 50 mg oral tablet 1 tablet = 50 mg, By Mouth, Daily at bedtime, # 30 tablet, 5 Refills, Maintenance, 03/10/19 12:34:52 EST, Tablet, note increased dose, 163, cm, 02/28/19 16:57:41 EST, Height, 81, kg, 12/28/18 12:53:19 EDT, Dry Weight Start Date: 03/10/19 Status: Ordered cetirizine 10 mg oral tablet 1 tablet = 10 mg, By Mouth, Daily, # 30 tablet, 5 Refills, Maintenance, 04/19/19 15:40:00 EST, Tablet, [facility]/pharmacy #[id number], 158, cm, 04/04/19 15:21:00 EST, Height, 82, kg, 04/01/19 16:10:00 EST, Dry Weight Start Date: 04/19/19 Status: Ordered clonazePAM 1 mg oral tablet 1 tablet = 1 mg, By Mouth, 2 times a day, # 60 tablet, 0 Refills, Maintenance, 04/04/19 15:30:00 EST, Tablet, 158, cm, 04/04/19 15:21:00 EST, Height, 82, kg, 04/01/19 16:10:00 EST, Dry Weight Start Date: 04/04/19 Status: Ordered Disposable absorbant bed pads Disposable absorbant bed pads, See Instructions, # 60 each, Refills 11, Tot. Refills 11, Maintenance, Dx: stress urinary incontinence Use two per day Duration 1 year, 04/08/19 14:16:00 EST, Compound Start Date: 04/08/19 Status: Ordered duloxetine 60 mg oral enteric coated capsule TAKE 1 CAPSULE BY MOUTH EVERY DAY Start Date: 10/29/17 Status: Ordered fluticasone 50 mcg/inh nasal spray See Instructions, # 16 mL, Refills 5 Tot. Refills 5, USE 1 SPRAY IN BOTH NOSTRILS DAILY, [facility]/pharmacy #[id number] Start Date: 12/01/18 Status: Ordered Freestyle Lite Test Strips See Instructions, # 100 each, Refills 11, Tot. Refills 11, Maintenance, Dx: DM2 twice daily checks,04/11/19 12:32:00 EST, Compound, 158, cm, 04/04/19 15:21:00 EST, Height, 82, kg, 04/01/19 16:10:00 EST, Dry Weight Start Date: 04/11/19 Status: Ordered glipiZIDE 10 mg oral tablet, extended release 2 tablet = 20 mg, By Mouth, Daily, # 60 tablet, 11 Refills, Maintenance, 12/20/18 18:11:47 EDT, note dose increase Start Date: 12/20/18 Status: Ordered Golytely - oral powder for reconstitution 240 mL, By Mouth, Every 10 minutes, # 1 each, 0 Refills, Maintenance, 04/28/19 15:58:00 EST, REC Powder, [facility]/pharmacy #[id number], 240 mL By Mouth Every 10 minutes, 158, cm, 04/28/19 14:51:00 EST, Height, 82, kg, 04/01/19 16:10:00 EST, Dry Weight Start Date: 04/28/19 Status: Ordered Januvia 100 mg oral tablet 1 tablet = 100 mg, By Mouth, Daily, # 30 tablet, 5 Refills, Maintenance, 04/28/19 16:05:00 EST, Tablet, [facility]/pharmacy #[id number], 158, cm, 04/28/19 14:51:00 EST, Height, 82, kg, 04/01/19 16:10:00 EST, Dry Weight Start Date: 04/28/19 Status: Ordered lisinopril 10 mg oral tablet 10 mg, 1, tablet, By Mouth, Daily, # 90 tablet, Refills 3, Tot. Refills 3, Maintenance, 05/08/19 20:27:00 EST, Route to Pharmacy Electronically, [facility]/pharmacy #[id number], to replace 2.5mg dose, 158, cm, 05/05/19 13:36:00 EST, Height, 82, kg, 04/01/19 16:10:... Start Date: 05/08/19 Stop Date: 05/02/20 Status: Ordered lithium 450 mg oral tablet, extended release = 600 mg, By Mouth, Daily at bedtime, 0 Refills, Maintenance, 11/25/18 10:11:53 EDT Start Date: 11/25/18 Status: Ordered Medrol 4 mg oral tablet 1 pack/packet, By Mouth, Once, # 21 tablet, 0 Refills, Soft Stop, 05/14/19 19:08:00 EST, Tablet, [facility]/pharmacy #[id number], 163, cm, 05/14/19 17:09:00 EST, Height, 85.6, kg, 05/14/19 17:09:00 EST, Dry Weight Start Date: 05/14/19 Status: Ordered menthol-methyl salicylate 1%-15% topical cream See Instructions, Please apply to lower back, # 15 mL, 0 Refills, Maintenance, 04/04/19 16:22:00 EST, [facility]/pharmacy #[id number], Please apply to lower back, 158, cm, 04/04/19 15:21:00 EST, Height, 82, kg, 04/01/19 16:10:00 EST, Dry Weight Start Date: 04/04/19 Status: Ordered metFORMIN 750 mg oral tablet, extended release 1 tablet = 750 mg, By Mouth, Daily, # 30 tablet, 6 Refills, Maintenance, 04/04/19 16:29:00 EST, ER Tablet, [facility]/pharmacy #[id number], 158, cm, 04/04/19 15:21:00 EST, Height, 82, kg, 04/01/19 16:10:00 EST, Dry Weight Start Date: 04/04/19 Status: Ordered Nebulizer/Compressor See Instructions, # 1 each, Maintenance, Dx: uncontrolled Asthma, severe Use Q4hr PRN Duration: 1 year, 02/24/19 14:36:56 EST, Compound Start Date: 02/24/19 Status: Ordered oxyCODONE 10 mg oral tablet 1 tablet = 10 mg, By Mouth, 2 times a day, PRN pain, for 28 days, on contract at [facility]., # 56 tablet, 0 Refills, Acute 06/01/19 9:36:00 EST, 05/04/19 9:36:00 EST, [facility] #[id number], Partial fill uponpatient request, 158, cm, 04/28/19 14:51:00 EST, He... Start Date: 05/04/19 Stop Date: 06/01/19 Status: Ordered Pulmicort Flexhaler 180 mcg 1 puffs, Inhalation, 2 times a day, # 1 each, 5 Refills, Maintenance, 02/28/19 17:47:06 EST, Powder, 1 puffs Inhalation 2 times a day Start Date: 02/28/19 Status: Ordered raNITIdine 300 mg oral tablet See Instructions, # 30 tablet, Refills 2 Tot. Refills 2, TAKE 1 TABLET BY MOUTH EVERYDAY AT BEDTIME, [facility]/pharmacy #[id number] Start Date: 01/27/19 Status: Ordered Senexon-S 2 tablet, By Mouth, Daily at bedtime, 0 Refills, Maintenance, 11/25/18 10:10:49 EDT Start Date: 11/25/18 Status: Ordered senna 187 mg oral tablet 1 tablet = 8.6 mg, By Mouth, Daily at bedtime, PRN as needed for constipation, # 100 tablet, 5 Refills, Maintenance, 05/04/19 9:35:00 EST, [facility]/pharmacy #[id number], 158, cm, 04/28/19 14:51:00 EST, Height, 82, kg, 04/01/19 16:10:00 EST, Dry Weight Start Date: 05/04/19 Status: Ordered Spiriva Respimat 60 ACT 2.5 mcg/inh inhalation aerosol 2 puffs, Inhalation, Daily, # 1 each, 5 Refills, Maintenance, 04/26/19 10:30:00 EST, [facility]/pharmacy #[id number], 158, cm, 04/26/19 9:58:00 EST, Height, 82, kg, 04/01/19 16:10:00 EST, Dry Weight Start Date: 04/26/19 Status: Ordered Tums 500 mg oral tablet, chewable 500 mg, 1, tablet, Chew, 2 times a day, PRN, # 45 tablet, Refills 0, Tot. Refills 0, Maintenance, as needed for dyspepsia, 10/18/18 15:31:54 EDT, Route to Pharmacy Electronically, [id number], [facility]/pharmacy #[id number] Start Date: 10/18/18 Status: Ordered Urinary incontinence pantiliners Urinary incontinence pantiliners, See Instructions, # 90 each, Refills 11, Tot. Refills 11, Maintenance, Dx: stress urinary incontinence Use three per day. Duration 1 year, 04/08/19 14:16:00 EST, Compound Start Date: 04/08/19 Status: Ordered Vitamin D3 5000 intl units oral tablet 1 tablet = 5,000 International_Units, By Mouth, Daily, # 100 tablet, 0 Refills, Maintenance, 12/16/16 14:23:06, Tablet Start Date: 12/16/16 Status: Ordered Problem List Condition Effective Dates Status Health Status Inform ant Cutaneous abscess of abdomin al wall(Confirmed) Active Acute medial meniscus tear o f left knee(Confirmed) 1 10/2015 Active Back pain(Confirmed) 2, 3 Active Anxiety(Confirmed) Active Chronic low back pain(Confirmed) Active Pancreatic lesion(Confirmed) 4 Active Hypertension(Confirmed) Active Fibromyalgia(Confirmed) Active S/P total abdominal hysterectomy(Confirmed) 2011 Active Hyperlipidemia(Confirmed) Active Lesion of liver(Confirmed) 6 Active Hyperactivity of bladder(Confirmed) Active Facet syndrome, lumbar(Confirmed) Active Lumbar radiculopathy(Confirmed) Active Major depressive disorder(Confirmed) Active Obesity(Confirmed) Active MARILIN on CPAP(Confirmed) Active Panic attacks(Confirmed) Active *BHN/BHCP/SARAHarmony MacdonaldIadsmty-[phone]/Health [facility], active care coordination(Confirmed) Active Acute meniscal tear of right knee(Confirmed) 7 06/2015 Active Tobacco dependence(Confirmed) Active DM2 (diabetes mellitus, type 2)(Confirmed) 04/03/17 Active Incontinence of urine(Confirmed) 8 Active 1surgically repaired November 2015, Dr. Sg MENDEZ 2DJD Lumbar Spine per MRI 3L3-L4 disc herniation per client report 4seen on MRI 10/2016, rec repeat imaging in October 2017 5done in [place] 6seen on CT Abd 09/18/16 at [facility], pending MRI 7surgically repaired July 2015 Dr. Sg MENDEZ 8urge and stress Vital Signs Most recent to oldest [Reference Range]: 1 2 Height 163 cm (05/14/19 5:09 PM) Weight 85.6 kg (05/14/19 5:09 PM) Oxygen Saturation [94-100 %] 97 % (05/14/19 6:38 PM) 95 % (05/14/19 5:09 PM) Pulse Rate [55-90 bpm] 79 bpm (05/14/19 6:38 PM) 98 bpm *H* (05/14/19 5:09 PM) Blood Pressure [90-138/55-84 mm Hg] 135/ 103mm Hg (05/14/19 6:38 PM) 166/110mm Hg *H* (05/14/19 5:09 PM) Respiratory Rate [16-30 br/min] 20 br/mi n (05/14/19 6:38 PM) 22 br/min (05/14/19 5:09 PM) Temperature [96.8-100.4 DegF] 97.9 DegF (05/14/19 6:38 PM) 99.2 DegF (05/14/19 5:09 PM) Mode of Delivery (Oxygen) Room air (05/14/19 6:38 PM) Room air (05/14/19 5:09 PM) Blood pressure sites Arm, left (05/14/19 6:38 PM) Arm, left (05/14/19 5:09 PM) Temperature Route Oral (05/14/19 6:38 PM) Oral (05/14/19 5:09 PM) Dry Weight 85.6 kg (05/14/19 5:09 PM) Weight Obtained Via Standing scale (05/14/19 5:09 PM) Dry Weight Obtained Via Standing scale (05/14/19 5:09 PM) Social History Social History Type Response Tobacco Use: Pt states she q uit smoking 1 week ago. Sex Female
--- OUTSIDE RECORDS SUMMARY | 2023-03-25 08:18 | XMS_ITS | Continuity of Care Document ---
Author Name Unknown Organization [facility] Address [address] [address]- Care Team Providers Care Studio Engineer Name Role Phone Richardson QUIROZ, Leonora Pérez Primary Care Physician [facility] Date[facility]s): 07/18/19 - 07/28/19 [facility] [address] [place] [id number] [facility] Attending Physician: Clarence Reynaga Admitting Physician: AdmClarence brown Referring Physician: AdmtrClarence Allergies, Adverse Reactions, Alerts Substance Reaction Severity [...] 12:48:00 EST, Powder, Route to Pharmacy Electronically, [id number], [facility]/pharmacy #[id number], 158, cm, 04/26/19 9:58:00 EST, H... Start Date: 04/27/19 Status: Ordered albuterol 0.083% inhalation solution 3 mL = 2.5 mg, Inhalation, Every 4 hours, PRN for wheezing, # 100 each, 5 Refills, Maintenance, 03/23/20 14:32:00 EDT, Solution, [facility]/pharmacy #[id number], 160, cm, 06/01/19 14:08:00 EST, Height, 88.9, kg, 05/23/19 22:09:00 EST, Dry Weight Start Date: 06/27/19 Status: Ordered amitriptyline 50 mg oral tablet 1 tablet = 50 mg, By Mouth, Daily at bedtime, # 30 tablet, 5 Refills, Maintenance, 03/10/19 12:34:52 EST, Tablet, note increased dose, 163, cm, 02/28/19 16:57:41 EST, Height, 81, kg, 12/28/18 12:53:19 EDT, Dry Weight Start Date: 03/10/19 Status: Ordered atorvastatin 20 mg oral tablet 1 tablet = 20 mg, By Mouth, Daily, Maintenance, 05/24/19 9:12:00 EST, Tablet Start Date: 05/24/19 Status: Ordered Bactrim DS 800 mg-160 mg oral tablet 1 tablet, By Mouth, 2 times a day, for 10 days, # 20 tablet, 0 Refills, Acute 08/01/19 15:23:00 EDT, 07/22/19 15:23:00 EDT, Tablet, [facility]/pharmacy #[id number], 1 tablet By Mouth 2 times a day,x10 days, 160, cm, 07/22/19 15:08:00 EDT, Height, 86.8, kg, ... Start Date: 07/22/19 Stop Date: 08/01/19 Status: Ordered cetirizine 10 mg oral tablet 1 tablet = 10 mg, By Mouth, Daily, # 30 tablet, 5 Refills, Maintenance, 04/19/19 15:40:00 EST, Tablet, [facility]/pharmacy #[id number], 158, cm, 04/04/19 15:21:00 EST, Height, 82, kg, 04/01/19 16:10:00 EST, Dry Weight Start Date: 04/19/19 Status: Ordered clonazePAM 0.5 mg oral tablet TAKE 1 TABLET BY MOUTH TWICE A DAY NEEDED Start Date: 06/02/19 Status: Ordered clotrimazole 1% topical cream 1 application, Topically, 2 times a day, # 30 Gm, 0 Refills, Maintenance, 05/30/19 19:02:00 EST, Cream, [facility]/pharmacy #[id number], 1 application Topically 2 times a day, 160, cm, 05/30/19 18:08:00 EST, Height, 88.9, kg, 05/23/19 22:09:00 EST, Dry Weight Start Date: 05/30/19 Status: Ordered duloxetine 60 mg oral enteric coated capsule TAKE 1 CAPSULE BY MOUTH EVERY DAY Start Date: 10/29/17 Status: Ordered glipiZIDE 10 mg oral tablet, extended release 2 tablet = 20 mg, By Mouth, Daily, # 60 tablet, 11 Refills, Maintenance, 12/20/18 18:11:47 EDT, note dose increase Start Date: 12/20/18 Status: Ordered hydroCHLOROthiazide 12.5 mg oral capsule 1 capsule = 12.5 mg, By Mouth, Daily, Maintenance, 05/24/19 9:12:00 EST, Capsule Start Date: 05/24/19 Status: Ordered Januvia 100 mg oral tablet 1 tablet = 100 mg, By Mouth, Daily, # 30 tablet, 5 Refills, Maintenance, 04/28/19 16:05:00 EST, Tablet, [facility]/pharmacy #[id number], 158, cm, 04/28/19 14:51:00 EST, Height, 82, kg, 04/01/19 16:10:00 EST, Dry Weight Start Date: 04/28/19 Status: Ordered lidocaine 5% topical film 1 patch, Topically, Daily, For chronic radicular back pain, # 30 patch, 5 Refills, Maintenance, 06/27/19 14:37:00 EDT, [facility]/pharmacy #[id number], 1 patch Topically Daily,Instr:For chronic radicular back pain, 160, cm, 06/01/19 14:08:00 EST, Height, 88.9, kg,... Start Date: 06/27/19 Status: Ordered lisinopril 10 mg oral tablet 10 mg, 1, tablet, By Mouth, Daily, # 90 tablet, Refills 3, Tot. Refills 3, Maintenance, 05/08/19 20:27:00 EST, Route to Pharmacy Electronically, [facility]/pharmacy #[id number], to replace 2.5mg dose, 158, cm, 05/05/19 13:36:00 EST, Height, 82, kg, 04/01/19 16:10:... Start Date: 05/08/19 Stop Date: 05/02/20 Status: Ordered lithium 300 mg oral tablet, extended release 2 tablet = 600 mg, By Mouth, Daily at bedtime, Maintenance, 05/24/19 9:12:00 EST, ER Tablet Start Date: 05/24/19 Status: Ordered Mapap 325 mg oral tablet 2 tablet = 650 mg, By Mouth, Every 4 hours, PRN for pain, not to exceed 3000 mg/day. instructions in maldivian, # 120 tablet, 2 Refills, Maintenance, 07/25/19 8:41:00 EDT, Tablet, [facility]/pharmacy #[id number], 160, cm, 07/22/19 15:08:00 EDT, Height, 86.8, kg, 04... Start Date: 07/25/19 Status: Ordered metFORMIN 750 mg oral tablet, extended release 1 tablet = 750 mg, By Mouth, 2 times a day, # 60 tablet, 6 Refills, Maintenance, 05/30/19 18:54:00 EST, ER Tablet, [facility]/pharmacy #[id number], dose increased to BID 05/30/19, 160, cm, 05/30/19 18:08:00 EST, Height, 88.9, kg, 05/23/19 22:09:00 EST, Dry Weight Start Date: 05/30/19 Status: Ordered mirtazapine 30 mg oral tablet 1 tablet = 30 mg, By Mouth, Daily at bedtime, Maintenance, 05/24/19 9:12:00 EST, Tablet Start Date: 05/24/19 Status: Ordered oxyCODONE 10 mg oral tablet 1 tablet = 10 mg, By Mouth, 2 times a day, PRN pain, for 28 days, on contract at [facility]., # 56 tablet, 0 Refills, Acute 08/04/19 13:49:00 EDT, 07/07/19 13:49:00 EDT, [facility]/pharmacy #[id number], Partial fill upon patient request, 160, cm, 06/01/19 14:08:00 EST,... Start Date: 07/07/19 Stop Date: 08/04/19 Status: Ordered prazosin 1 mg oral capsule 1 mg, 1, capsule, By Mouth, Daily at bedtime, for nightmares, # 30 capsule, Refills 0, Tot. Refills0, Maintenance, 05/30/19 18:52:00 EST, Route to Pharmacy Electronically, [facility]/pharmacy #[id number], 160, cm, 05/30/19 18:08:00 EST, Height, 88.9, kg, 05/23/19... Start Date: 05/30/19 Status: Ordered predniSONE 20 mg oral tablet 2 tablet = 40 mg, By Mouth, Daily, for 5 days, # 10 tablet, 0 Refills, Acute 08/02/19 11:55:00 EDT,07/28/19 11:55:00 EDT, [facility]/pharmacy #[id number], 160, cm, 07/22/19 15:08:00 EDT, Height, 86.8, kg, 07/22/19 15:13:00 EDT, Dry Weight Start Date: 07/28/19 Stop Date: 08/02/19 Status: Ordered raNITIdine 300 mg oral tablet See Instructions, # 30 tablet, Refills 2 Tot. Refills 2, TAKE 1 TABLET BY MOUTH EVERYDAY AT BEDTIME, [facility]/pharmacy #[id number] Start Date: 01/27/19 Status: Ordered Senexon-S 2 tablet, By Mouth, Daily at bedtime, 0 Refills, Maintenance, 11/25/18 10:10:49 EDT Start Date: 11/25/18 Status: Ordered senna 187 mg oral tablet 1 tablet = 8.6 mg, By Mouth, Daily at bedtime, PRN as needed for constipation, # 100 tablet, 5 Refills, Maintenance, 05/04/19 9:35:00 EST, [facility]/pharmacy #[id number], 158, cm, 04/28/19 14:51:00 EST, Height, 82, kg, 04/01/19 16:10:00 EST, Dry Weight Start Date: 05/04/19 Status: Ordered Senna 8.6 mg oral tablet 8.6 mg, 1, tablet, By Mouth, Daily at bedtime, # 100 tablet, Refills 2, Tot. Refills 2, Maintenance, 06/10/19 16:12:00 EST, Route to Pharmacy Electronically, [facility]/pharmacy #[id number], 160, cm, 06/01/19 14:08:00 EST, Height, 88.9, kg, 05/23/19 22:09:00 EST,... Start Date: 06/10/19 Status: Ordered Spiriva Respimat 60 ACT 2.5 mcg/inh inhalation aerosol 2 puffs, Inhalation, Daily, # 1 each, 5 Refills, Maintenance, 04/26/19 10:30:00 EST, [facility]/pharmacy #[id number], 158, cm, 04/26/19 9:58:00 EST, Height, 82, kg, 04/01/19 16:10:00 EST, Dry Weight Start Date: 04/26/19 Status: Ordered tiZANidine 2 mg oral tablet 2 mg, 1, tablet, By Mouth, 2 times a day, PRN, # 30 tablet, Refills 2, Tot. Refills 2, Maintenance,as needed for muscle spasm, 07/25/19 8:41:00 EDT, Route to Pharmacy Electronically, [facility]/pharmacy #[id number], 160, cm, 07/22/19 15:08:00 EDT, Height, 86.8, k... Start Date: 07/25/19 Status: Ordered Vitamin D3 5000 intl units oral tablet 1 tablet = 5,000 International_Units, By Mouth, Daily, # 100 tablet, 0 Refills, Maintenance, 12/16/16 14:23:06, Tablet Start Date: 12/16/16 Status: Ordered Problem List Condition Effective Dates Status Health Status Inform ant Acute medial meniscus tear o f left knee(Confirmed) 1 10/2015 Active Back pain(Confirmed) 2, 3 Active Anxiety(Confirmed) Active Chronic low back pain(Confirmed) Active Pancreatic lesion(Confirmed) 4 Active Hypertension(Confirmed) Active Fibromyalgia(Confirmed) Active Hyperlipidemia(Confirmed) Active Lesion of liver(Confirmed) 5 Active Hyperactivity of bladder(Confirmed) Active Facet syndrome, lumbar(Confirmed) Active Lumbar radiculopathy(Confirmed) Active Major depressive disorder(Confirmed) Active Obesity(Confirmed) Active MARILIN on CPAP(Confirmed) Active Panic attacks(Confirmed) Active *[facility]Efrem Macdonald-[phone][facility], active care coordination(Confirmed) Active Acute meniscal tear of right knee(Confirmed) 6 06/2015 Active Tobacco dependence(Confirmed) Active DM2 (diabetes mellitus, type 2)(Confirmed) 04/03/17 Active Incontinence of urine(Confirmed) 7 Active 1surgically repaired November 2015, Dr. Sg MENDEZ 2DJD Lumbar Spine per MRI 3L3-L4 disc herniation per client report 4seen on MRI 10/2016, rec repeat imaging in October [address] Abd 09/18/16 at [facility], pending MRI 6surgically repaired July 2015 Dr. Sg MENDEZ 7urge and stress Social History Social History Type Response Tobacco Use: Pt states she q uit smoking 1 week ago. Sex Female
--- OUTSIDE RECORDS SUMMARY | 2023-03-25 08:18 | XMS_ITS | Continuity of Care Document ---
Author Name Unknown Organization [facility] Address [address] [place] [address]- Care Team Providers Care Photographic Engineer Name Role Phone Richardson QUIROZ, Leonora Pérez Primary Care Physician [facility] Date[facility]): 09/21[facility]20 - 10/21/20 [facility] [address] [place] [address]- Encounter Diagnosis INA (stress urinary incontinence, female)(Discharge Diagnosis) - 02/11/19 Attending Physician: Clarence Reynaga Admitting Physician: Clarence Reynaga Referring Physician: AdmtrClarence Allergies, Adverse Reactions, Alerts Substance Reaction Severity Status gabapentin swelling Active Lyrica dysphagia Active MetFORMIN Hydrochloride ER black tarry stool Active SEROquel body swelling - all over Act tony Immunizations Given and Recorded Vaccine Date Status Refusal Reason SARS-CoV-2 (COVID-19) mRNA BNT-162b2 vac 10/19/20 Given SARS-CoV-2 (COVID-19) mRNA BNT-162b2 vac 09/28/20 Given influenza virus vaccine, inactivated 1 04/19/20 Gi tonio influenza virus vaccine, inactivated 03/12/19 Give n influenza virus vaccine, inactivated 01/19/18 Give n influenza virus vaccine, inactivated 02/16/17 Give n pneumococcal 23-valent vaccine 03/12/19 Given tetanus/diphtheria/pertussis, acel(Tdap) 07/29/13 Given 1Early/Late Reason: Early/Late Reason: Patient Not Available/Off Unit Medications Advair Diskus 500 mcg-50 mcg inhalation powder 1, puffs, Inhalation, 2 times a day, [id number], # 1 each, Refills 11, Tot. Refills 11, Maintenance, 04/05/20 14:12:00 EST, Powder, Route to Pharmacy Electronically, [id number], [facility]/pharmacy #[id number], 162.56, cm, 03/27/20 11:36:00... Start Date: 04/05/20 Status: Ordered albuterol 0.083% inhalation solution 3 mL = 2.5 mg, Inhalation, Every 4 hours, PRN for wheezing, # 100 each, 2 Refills, Maintenance, 08/15/20 10:22:00 EDT, Solution, [facility]/pharmacy #[id number], 163, cm, 08/09/20 8:45:00 EDT, Height, 84.8, kg, 06/25/20 20:28:00 EDT, Dry Weight Start Date: 08/15/20 Status: Ordered amitriptyline 75 mg oral tablet 1 tablet = 75 mg, By Mouth, Daily at bedtime, # 30 tablet, 5 Refills, Maintenance, 08/16/20 11:58:00 EDT, Tablet, [facility]/pharmacy #[id number], Partial fill upon patient request if the prescription is for a schedule II opioid drug. INSTEAD OF 50mg SCRIPT PLEASE... Start Date: 08/16/20 Status: Ordered atorvastatin 20 mg oral tablet 1 tablet = 20 mg, By Mouth, Daily, # 90 tablet, 3 Refills, Maintenance, 04/05/20 14:11:00 EST, Tablet, [facility]/pharmacy #[id number], Partial fill upon patient request if the prescription is for a schedule II opioid drug., 162.56, cm, 03/27/20 11:36:00 EST, Heig... Start Date: 04/05/20 Status: Ordered capsaicin 0.025% topical cream 1 application, Topically, 3 times a day, # 45 Gm, 3 Refills, Maintenance, 11/01/19 15:25:00 EDT, Cream, [facility]/pharmacy #[id number], 1 application Topically 3 times a day, 163, cm, 11/01/19 14:40:00 EDT, Height, 80, kg, 10/29/19 0:29:00 EDT, Dry Weight Start Date: 11/01/19 Status: Ordered cetirizine 10 mg oral tablet 1 tablet = 10 mg, By Mouth, Daily, # 30 tablet, 5 Refills, Maintenance, 06/20/20 13:18:00 EDT, Tablet, [facility]/pharmacy #[id number], 162, cm, 05/24/20 9:01:00 EST, Height, 80, kg, 04/18/20 9:48:00 EST, Dry Weight Start Date: 06/20/20 Status: Ordered clonazePAM 0.5 mg oral tablet TAKE 1 TABLET BY MOUTH TWICE A DAY NEEDED Start Date: 06/02/19 Status: Ordered clotrimazole 1% topical cream 1 application, Topically, 2 times a day, # 30 Gm, 1 Refills, Maintenance, 07/30/20 19:49:00 EDT, Cream, [facility]/pharmacy #[id number], 1 application Topically 2 times a day, 163, cm, 07/05/20 9:29:00 EDT, Height, 84.8, kg, 06/25/20 20:28:00 EDT, Dry Weight Start Date: 07/30/20 Status: Ordered Disposable Bedpad Disposable Bedpad, See Instructions, # 120 each, Refills 11, Tot. Refills 11, Maintenance, 4 per day dx: N32.81, N39.46 duration: lifetime, 05/31/20 10:16:00 EST, Supply Start Date: 05/31/20 Status: Ordered duloxetine 60 mg oral enteric coated capsule 2 capsule = 120 mg, By Mouth, Daily, # 60 capsule, 5 Refills, Maintenance, 03/02/20 11:18:00 EST, Capsule, [facility]/pharmacy #[id number], Partial fill upon patient request. NOT INCREASED DOSE, 163, cm, 12/25/2012:58:00 EDT, Height, 80, kg, 10/29/19 0:29:00 EDT,... Start Date: 03/02/20 Status: Ordered fluticasone 50 mcg/inh nasal spray See Instructions, USE 1 SPRAY IN BOTH NOSTRILS 2 TIMES A DAY, # 16 mL, 1 Refills, Maintenance, [facility]ORE [id number], 30, USE 1 SPRAY IN BOTH NOSTRILS 2 TIMES A DAY, 163, cm, 08/15/20 14:23:00 EDT, Height,84.8, kg, 06/25/20 20:28:00 EDT, Dry Weight Start Date: 09/07/20 Status: Ordered hydrochlorothiazide 12.5 mg oral tablet 1 tablet = 12.5 mg, By Mouth, Daily, # 90 tablet, 3 Refills, Maintenance, 01/19/20 10:28:00 EDT, Tablet, [facility]/pharmacy #[id number], 163, cm, 12/26/19 13:58:00 EDT, Height, 80, kg, 10/29/19 0:29:00 EDT, Dry Weight Start Date: 01/19/20 Status: Ordered Januvia 100 mg oral tablet 1 tablet = 100 mg, By Mouth, Daily, # 30 tablet, 2 Refills, Maintenance, 08/27/20 11:00:00 EDT, Tablet, [facility]/pharmacy #[id number], 163, cm, 08/15/20 14:23:00 EDT, Height, 84.8, kg, 06/25/20 20:28:00 EDT, Dry Weight Start Date: 08/27/20 Status: Ordered Lantus 100 u/ml subcutaneous solution = 40 units, Subcutaneous Injection, Daily, # 12 mL, 11 Refills, Maintenance, 05/07/20 13:24:00 EST,Solution, [facility]/pharmacy #[id number], increased dose 12/26/19, 162, cm, 04/21/20 11:33:00 EST, Height, 80, kg, 04/18/20 9:48:00 EST, Dry Weight Start Date: 05/07/20 Status: Ordered lidocaine 5% topical film 1 patch, Topically, Daily, For chronic radicular back pain, # 30 patch, 5 Refills, Maintenance, 10/11/20 8:15:00 EDT, [facility]/pharmacy #[id number], 1 patch Topically Daily,Instr:For chronic radicular back pain, 163, cm, 08/15/20 14:23:00 EDT, Height, 84.8, kg,... Start Date: 10/11/20 Status: Ordered lisinopril 20 mg oral tablet 20 mg, 1, tablet, By Mouth, Daily, # 30 tablet, Refills 11, Tot. Refills 11, Maintenance, 05/07/20 13:30:00 EST, Route to Pharmacy Electronically, [facility]/pharmacy #[id number], 162, cm, 04/21/20 11:33:00 EST, Height, 80, kg, 04/18/20 9:48:00 EST, Dry Weight Start Date: 05/07/20 Status: Ordered loratadine 10 mg oral capsule 1 capsule = 10 mg, By Mouth, Daily, # 40 capsule, 0 Refills, Maintenance, 08/15/20 15:59:00 EDT, Capsule, [facility]/pharmacy #[id number], Partial fill upon patient request if the prescription is for a schedule II opioid drug., 163, cm, 08/15/20 14:23:00 EDT, Heig... Start Date: 08/15/20 Status: Ordered Mapap 325 mg oral tablet 2 tablet = 650 mg, By Mouth, Every 4 hours, PRN for pain, not to exceed 3000 mg/day. instructions in romanian, # 120 tablet, 2 Refills, Maintenance, 11/01/19 15:24:00 EDT, Tablet, [facility]/pharmacy #[id number], 163, cm, 11/01/19 14:40:00 EDT, Height, 80, kg, ... Start Date: 11/01/19 Status: Ordered mirtazapine 30 mg oral tablet 1 tablet = 30 mg, By Mouth, Daily at bedtime, Maintenance, 05/24/19 9:12:00 EST, Tablet Start Date: 05/24/19 Status: Ordered naproxen 500 mg oral tablet 1 tablet = 500 mg, By Mouth, 2 times a day, For back pain, # 60 tablet, 2 Refills, Maintenance, 04/05/20 14:08:00 EST, Tablet, [id number], Partial fill upon patient request if the prescription is for a schedule II opioid drug., 162.56, cm, ... Start Date: 04/05/20 Status: Ordered omeprazole 40 mg oral enteric coated capsule 1 capsule = 40 mg, By Mouth, Daily, # 90 capsule, 0 Refills, Maintenance, 08/13/20 10:34:00 EDT, ECCapsule, [id number], 163, cm, 08/09/20 8:45:00 EDT, Height, 84.8, kg, 06/25/20 20:28:00 EDT, Dry Weight Start Date: 08/13/20 Status: Ordered Oxycodone = 10 mg, By Mouth, Every 12 hours, PRN Pain , Severe, LBP, 0 Refills, Maintenance, 12/07/19 15:23:00 EDT, Partial fill upon patient request Start Date: 12/07/19 Status: Ordered oxyCODONE 10 mg oral tablet 1 tablet = 10 mg, By Mouth, 2 times a day, for 28 days, on contract at [facility], # 56 tablet, 0 Refills, Acute 10/25/20 15:14:00 EDT, 09/27/20 15:14:00 EDT, [facility]/pharmacy #[id number], Partial fill upon patient request if the prescription is for a schedule II opi... Start Date: 09/27/20 Stop Date: 10/25/20 Status: Ordered prazosin 2 mg oral capsule TAKE 1 CAPSULE BY MOUTH EVERYDAY AT BEDTIME Start Date: 08/09/20 Status: Ordered Senna 8.6 mg oral tablet 8.6 mg, 1, tablet, By Mouth, Daily at bedtime, # 100 tablet, Refills 2, Tot. Refills 2, Maintenance, 06/04/20 12:46:00 EST, Route to Pharmacy Electronically, [facility]/pharmacy #[id number], 162, cm, 05/24/20 9:01:00 EST, Height, 80, kg, 04/18/20 9:48:00 EST, Dry... Start Date: 06/04/20 Status: Ordered Soma 350 mg oral tablet 350 mg, 1, tablet, By Mouth, 3 times a day, # 9 tablet, Refills 0, Tot. Refills 0, Maintenance, 05/04/20 15:46:00 EST, Route to Pharmacy Electronically, [facility]/pharmacy #[id number], Partial fill upon patient request if the prescription is for a schedule II opi... Start Date: 05/04/20 Status: Ordered Spiriva Respimat 60 ACT 2.5 mcg/inh inhalation aerosol 2 puffs, Inhalation, Daily, # 1 each, 11 Refills, Maintenance, 04/05/20 14:17:00 EST, [id number], Partial fill upon patient request if the prescription is for a schedule II opioid drug., 162.56, cm, 03/27/20 11:36:00 EST, Height, 81.81, kg, 12... Start Date: 04/05/20 Status: Ordered Splint See Instructions, # 1 each, Maintenance, Right COCK-UP wrist splint for CTS, use nightly, 08/09/20 9:26:00 EDT, Supply Start Date: 08/09/20 Status: Ordered tiZANidine 4 mg oral tablet 4 mg, 1, tablet, By Mouth, Every 8 hours, PRN, # 84 tablet, Refills 1, Tot. Refills 1, Maintenance,Spasm, 08/16/20 11:59:00 EDT, Route to Pharmacy Electronically, [facility]/pharmacy #[id number], 163, cm, 08/15/20 14:23:00 EDT, Height, 84.8, kg, 06/25/20 20:28:00... Start Date: 08/16/20 Stop Date: 10/11/20 Status: Ordered Urinary Liners Urinary Liners, See Instructions, # 180 each, Refills 11, Tot. Refills 11, Maintenance, 6 per day dx: N32.81, N39.46 duration:lifetime, 05/31/20 10:13:00 EST, Supply Start Date: 05/31/20 Status: Ordered Vitamin D3 5000 intl units oral tablet 1 tablet = 5,000 International_Units, By Mouth, Daily, # 100 tablet, 0 Refills, Maintenance, 12/16/16 14:23:06, Tablet Start Date: 12/16/16 Status: Ordered Problem List Condition Effective Dates Status Health Status Inform ant Anxiety(Confirmed) Active Chronic low back pain(Confirmed) Active Pancreatic lesion(Confirmed) 1 Active Hypertension(Confirmed) Active Fibromyalgia(Confirmed) Active Food insecurity(Confirmed) Active Hyperglycemia due to diabete s mellitus(Confirmed) Active Hyperlipidemia(Confirmed) Active Hypokalemia(Confirmed) Active Lesion of liver(Confirmed) 2 Active Hyperactivity of bladder(Confirmed) Active Facet syndrome, lumbar(Confirmed) Active Lumbar radiculopathy(Confirmed) Active Major depressive disorder(Confirmed) Active Obesity(Confirmed) Active MARILIN on CPAP(Confirmed) Active Panic attacks(Confirmed) Active Syncope and collapse(Confirmed) Active Tobacco dependence(Confirmed) Active DM2 (diabetes mellitus, type 2)(Confirmed) 04/03/17 Active Incontinence of urine(Confirmed) 3 Active 1seen on MRI 10/2016, rec repeat imaging in October [address] Abd 09/18/16 at [facility], pending MRI 3urge and stress Diagnosis Diagnosis Type Effective Dates Health Status Cl inical Service Informant INA (stress urinary incontinence, female) Discharge Diagnosis 02/11/19 Social History Social History Type Response Tobacco Use: Pt states she q uit smoking 1 week ago. Sex
--- OUTSIDE RECORDS SUMMARY | 2023-03-25 08:18 | XMS_ITS | Continuity of Care Document ---
Author Name Unknown Organization [facility] Address [address] [place] [address]- Care Team Providers Care Quarter Backer Name Role Phone Richardson QUIROZ, Leonora Pérez Primary Care Physician [facility]): 07[facility]20 - 08/29/20 [facility] [address] [place] [address]- Allergies, Adverse Reactions, Alerts Substance Reaction Severity Status gabapentin swelling Active Lyrica dysphagia Active SEROquel body swelling - all over Act tony MetFORMIN Hydrochloride ER black tarry stool Active Immunizations Given and Recorded Vaccine Date Status Refusal Reason influenza virus vaccine, inactivated 1 04/19/20 Gi [...] 14:12:00 EST, Powder, Route to Pharmacy Electronically, [id number], [facility]/pharmacy #[id number], 162.56, cm, 03/27/20 11:36:00... Start Date: 04/05/20 Status: Ordered albuterol 0.083% inhalation solution 3 mL = 2.5 mg, Inhalation, Every 4 hours, PRN for wheezing, # 100 each, 2 Refills, Maintenance, 08/15/20 10:22:00 EDT, Solution, [id number], 163, cm, 08/09/20 8:45:00 EDT, Height, 84.8, kg, 06/25/20 20:28:00 EDT, Dry Weight Start Date: 08/15/20 Status: Ordered amitriptyline 75 mg oral tablet 1 tablet = 75 mg, By Mouth, Daily at bedtime, # 30 tablet, 5 Refills, Maintenance, 08/16/20 11:58:00 EDT, Tablet, [id number], Partial fill upon patient request if the prescription is for a schedule II opioid drug. INSTEAD OF 50mg SCRIPT PLEASE... Start Date: 08/16/20 Status: Ordered atorvastatin 20 mg oral tablet 1 tablet = 20 mg, By Mouth, Daily, # 90 tablet, 3 Refills, Maintenance, 04/05/20 14:11:00 EST, Tablet, [id number], Partial fill upon patient request if the prescription is for a schedule II opioid drug., 162.56, cm, 03/27/20 11:36:00 EST, Heig... Start Date: 04/05/20 Status: Ordered capsaicin 0.025% topical cream 1 application, Topically, 3 times a day, # 45 Gm, 3 Refills, Maintenance, 11/01/19 15:25:00 EDT, Cream, [id number], 1 application Topically 3 times a day, 163, cm, 11/01/19 14:40:00 EDT, Height, 80, kg, 10/29/19 0:29:00 EDT, Dry Weight Start Date: 11/01/19 Status: Ordered cetirizine 10 mg oral tablet 1 tablet = 10 mg, By Mouth, Daily, # 30 tablet, 5 Refills, Maintenance, 06/20/20 13:18:00 EDT, Tablet, [id number], 162, cm, 05/24/20 9:01:00 EST, Height, 80, kg, 04/18/20 9:48:00 EST, Dry Weight Start Date: 06/20/20 Status: Ordered clonazePAM 0.5 mg oral tablet TAKE 1 TABLET BY MOUTH TWICE A DAY NEEDED Start Date: 06/02/19 Status: Ordered clotrimazole 1% topical cream 1 application, Topically, 2 times a day, # 30 Gm, 1 Refills, Maintenance, 07/30/20 19:49:00 EDT, Cream, [id number], 1 application Topically 2 times a [...] 5 Refills, Maintenance, 03/02/20 11:18:00 EST, Capsule, [id number], Partial fill upon patient request. NOT INCREASED DOSE, 163, cm, 12/25/2012:58:00 EDT, Height, 80, kg, 10/29/19 0:29:00 EDT,... Start Date: 03/02/20 Status: Ordered Flonase 50 mcg/inh nasal spray 1 sprays, Nares, Both, 2 times a day, in each nostril, # 16 Gm, 1 Refills, Maintenance, 08/15/20 15:59:00 EDT, [place], [id number], Partial fill upon patient request if the prescription is for a schedule II opioid drug., 1 sprays Nares, Both 2 t... Start Date: 08/15/20 Status: Ordered hydrochlorothiazide 12.5 mg oral tablet 1 tablet = 12.5 mg, By Mouth, Daily, # 90 tablet, 3 Refills, Maintenance, 01/19/20 10:28:00 EDT, Tablet, [id number], 163, cm, 12/26/19 13:58:00 EDT, Height, 80, kg, 10/29/19 0:29:00 EDT, Dry Weight Start Date: 01/19/20 Status: Ordered Januvia 100 mg oral tablet 1 tablet = 100 mg, By Mouth, Daily, # 30 tablet, 2 Refills, Maintenance, 08/27/20 11:00:00 EDT, Tablet, [facility]/pharmacy #[id number], 163, cm, 08/15/20 14:23:00 EDT, Height, 84.8, kg, 06/25/20 20:28:00 EDT, Dry Weight Start Date: 08/27/20 Status: Ordered Lantus 100 u/ml subcutaneous solution = 40 units, Subcutaneous Injection, Daily, # 12 mL, 11 Refills, Maintenance, 05/07/20 13:24:00 EST,Solution, [facility]/pharmacy #[id number], increased dose 12/26/19, 162, cm, 04/21/20 11:33:00 EST, Height, 80, kg, 04/18/20 9:48:00 EST, Dry Weight Start Date: 05/07/20 Status: Ordered lidocaine 5% topical film 1 patch, Topically, Daily, For chronic radicular back pain, # 30 patch, 5 Refills, Maintenance, 03/09/20 8:53:00 EST, [facility]/pharmacy #[id number], 1 patch Topically Daily,Instr:For chronic radicular back pain, 163, cm, 12/26/19 13:58:00 EDT, Height, 80, kg, 07... Start Date: 03/09/20 Status: Ordered lisinopril 20 mg oral tablet 20 mg, 1, tablet, By Mouth, Daily, # 30 tablet, Refills 11, Tot. Refills 11, Maintenance, 05/07/20 13:30:00 EST, Route to Pharmacy Electronically, [facility]/pharmacy #[id number], 162, cm, 04/21/20 11:33:00 EST, Height, 80, kg, 04/18/20 9:48:00 EST, Dry Weight Start Date: 05/07/20 Status: Ordered loratadine 10 mg oral capsule 1 capsule = 10 mg, By Mouth, Daily, # 40 capsule, 0 Refills, Maintenance, 08/15/20 15:59:00 EDT, Capsule, [facility]/pharmacy #[id number], Partial fill upon patient request if the prescription is for a schedule II opioid drug., 163, cm, 08/15/20 14:23:00 EDT, Heig... Start Date: 08/15/20 Status: Ordered Mapap 325 mg oral tablet 2 tablet = 650 mg, By Mouth, Every 4 hours, PRN for pain, not to exceed 3000 mg/day. instructions in andorran, # 120 tablet, 2 Refills, Maintenance, 11/01/19 [...] for 28 days, on contract at [facility], # 56 tablet, 0 Refills, Acute 09/24/20 15:18:00 EDT, 08/27/20 15:18:00 EDT, [id number], Partial fill upon patient request if the prescription is for a schedule II opi... Start Date: 08/27/20 Stop Date: 09/24/20 Status: Ordered prazosin 2 mg oral capsule TAKE 1 CAPSULE BY MOUTH EVERYDAY AT BEDTIME Start Date: 08/09/20 Status: Ordered Senna 8.6 mg oral tablet 8.6 mg, 1, tablet, By Mouth, Daily at bedtime, # 100 tablet, Refills 2, Tot. Refills 2, Maintenance, 06/04/20 12:46:00 EST, Route to Pharmacy Electronically, [facility]/pharmacy #[id number], 162, cm, 05/24/20 9:01:00 EST, Height, 80, kg, 04/18/20 9:48:00 EST, Dry... Start Date: 06/04/20 Status: Ordered Soma 350 mg oral tablet 350 mg, 1, tablet, By Mouth, 3 times a day, # 9 tablet, Refills 0, Tot. Refills 0, Maintenance, 05/04/20 15:46:00 EST, Route to Pharmacy Electronically, [facility]/pharmacy #[id number], Partial fill upon patient request if the prescription is for a schedule II opi... Start Date: 05/04/20 Status: Ordered Spiriva Respimat 60 ACT 2.5 mcg/inh inhalation aerosol 2 puffs, Inhalation, Daily, # 1 each, 11 Refills, Maintenance, 04/05/20 14:17:00 EST, [facility]/pharmacy #[id number], Partial fill upon patient request if [...] 08/16/20 11:59:00 EDT, Route to Pharmacy Electronically, [facility]/pharmacy #[id number], 163, cm, 08/15/20 14:23:00 EDT, Height, [...] [address] [place] [facility] 3urge and stress Social History Social History Type Response Tobacco Use: Pt states she q uit smoking 1 week ago. Sex
--- OUTSIDE RECORDS SUMMARY | 2023-03-25 08:18 | XMS_ITS | Continuity of Care Document ---
Author Name Unknown Organization [facility]3] Adult Medicine Address [address] [place] [address]- Care Team Providers Care Wholesale Agronomist Name Role Phone Richardson QUIROZ, Leonora Pérez Primary Care Physician [facility] Date[facility]): 10/25[facility]20 - 11/24/20 [facility] Adult Medicine [address] [place] [address]- Allergies, Adverse Reactions, Alerts Substance Reaction Severity [...] 14:12:00 EST, Powder, Route to Pharmacy Electronically, [id number], [facility]/pharmacy #[id number], 162.56, cm, 03/27/20 11:36:00... Start Date: 04/05/20 Status: Ordered albuterol 0.083% inhalation solution 3 mL = 2.5 mg, Inhalation, Every 4 hours, PRN for wheezing, # 100 each, 2 Refills, Maintenance, 08/15/20 10:22:00 EDT, Solution, [facility]/pharmacy #[id number], 163, cm, 08/09/20 8:45:00 [...] 0:29:00 EDT,... Start Date: 03/02/20 Status: Ordered fluconazole 150 mg oral tablet 1 tablet = 150 mg, By Mouth, Once, epeat dose if still having symptoms in 72 hours, # 2 tablet, 0 Refills, Soft Stop, 11/23/20 14:43:00 EDT, Tablet, [id number], Partial fill upon patient request if the prescription is for a schedule II opioid... Start Date: 11/23/20 Status: Ordered fluticasone 50 mcg/inh nasal spray See Instructions, USE 1 SPRAY IN BOTH NOSTRILS 2 TIMES A DAY, # 16 mL, 1 Refills, Maintenance, [id number], 30, USE 1 SPRAY IN BOTH NOSTRILS 2 TIMES A DAY, 163, cm, 08/15/20 14:23:00 EDT, Height,84.8, kg, 06/25/20 20:28:00 EDT, Dry Weight Start Date: 09/07/20 Status: Ordered hydrochlorothiazide 12.5 mg oral tablet 1 tablet = 12.5 mg, By Mouth, Daily, # 90 tablet, 3 Refills, Maintenance, 01/19/20 10:28:00 EDT, Tablet, [facility]/pharmacy #[id number], 163, cm, 12/26/19 13:58:00 EDT, Height, 80, kg, 10/29/19 0:29:00 EDT, Dry Weight Start Date: 01/19/20 Status: Ordered Januvia 100 mg oral tablet 1 tablet = 100 mg, By Mouth, Daily, # 30 tablet, 2 Refills, Maintenance, 10/29/20 14:07:00 EDT, Tablet, [facility]/pharmacy #[id number], 163, cm, 08/15/20 14:23:00 EDT, Height, 84.8, kg, 06/25/20 20:28:00 EDT, Dry Weight Start Date: 10/29/20 Status: Ordered Lantus 100 u/ml subcutaneous solution = 40 units, Subcutaneous Injection, Daily, # 12 mL, 11 Refills, Maintenance, 05/07/20 13:24:00 EST,Solution, [facility]/pharmacy #[id number], increased dose 12/26/19, 162, cm, 04/21/20 11:33:00 EST, Height, 80, kg, 04/18/20 9:48:00 EST, Dry Weight Start Date: 05/07/20 Status: Ordered lidocaine 5% topical film 1 patch, Topically, Daily, For chronic radicular back pain, # 30 patch, 5 Refills, Maintenance, 10/11/20 8:15:00 EDT, [facility]/pharmacy #[id number], 1 patch Topically Daily,Instr:For chronic radicular back pain, 163, cm, 08/15/20 14:23:00 EDT, Height, 84.8, kg,... Start Date: 10/11/20 Status: Ordered lisinopril 20 mg oral tablet 20 mg, 1, tablet, By Mouth, Daily, # 30 tablet, Refills 11, Tot. Refills 11, Maintenance, 05/07/20 13:30:00 EST, Route to Pharmacy Electronically, [facility]/pharmacy #[id number], 162, cm, 04/21/20 11:33:00 EST, Height, 80, kg, 04/18/20 9:48:00 EST, Dry Weight Start Date: 05/07/20 Status: Ordered loratadine 10 mg oral capsule 1 capsule = 10 mg, By Mouth, Daily, # 40 capsule, 0 Refills, Maintenance, 08/15/20 15:59:00 EDT, Capsule, [facility]/pharmacy #[id number], Partial fill upon patient request if the prescription is for a schedule II opioid drug., 163, cm, 08/15/20 14:23:00 EDT, Heig... Start Date: 08/15/20 Status: Ordered Mapap 325 mg oral tablet 2 tablet = 650 mg, By Mouth, Every 4 hours, PRN for pain, not to exceed 3000 mg/day. instructions in [place], # 120 tablet, 2 Refills, Maintenance, 11/01/19 15:24:00 EDT, Tablet, [facility]/pharmacy #[id number], 163, cm, 11/01/19 14:40:00 EDT, Height, [...] 2 Refills, Maintenance, 04/05/20 14:08:00 EST, Tablet, [facility]/pharmacy #[id number], Partial fill upon patient request if the prescription is for a schedule II opioid drug., 162.56, cm, ... Start Date: 04/05/20 Status: Ordered omeprazole 40 mg oral enteric coated capsule 1 capsule = 40 mg, By Mouth, Daily, # 90 capsule, 0 Refills, Maintenance, 08/13/20 10:34:00 EDT, ECCapsule, [facility]/pharmacy #[id number], 163, cm, 08/09/20 8:45:00 [...] day, for 28 days, on contract at [facility], # 56 tablet, 0 Refills, Acute 11/27/20 11:37:00 EDT, 10/30/20 11:37:00 EDT, [facility]/pharmacy #[id number], Partial fill upon patient request if the prescription is for a schedule II opi... Start Date: 10/30/20 Stop Date: 11/27/20 Status: Ordered prazosin 2 mg oral capsule TAKE 1 CAPSULE BY MOUTH EVERYDAY AT BEDTIME Start Date: 08/09/20 Status: Ordered Senna 8.6 mg oral tablet 8.6 mg, 1, tablet, By Mouth, Daily at bedtime, # 100 tablet, Refills 11, Tot. Refills 11, Maintenance, 10/30/20 11:37:00 EDT, Route to Pharmacy Electronically, [facility]/pharmacy #[id number], 163, cm, 08/15/20 14:23:00 EDT, Height, 84.8, kg, 06/25/20 20:28:00 EDT... Start Date: 10/30/20 Status: Ordered Soma 350 mg oral tablet 350 mg, 1, tablet, By Mouth, 3 times a day, # 9 tablet, Refills 0, Tot. Refills 0, Maintenance, 05/04/20 15:46:00 EST, Route to Pharmacy Electronically, [facility]/pharmacy #[id number], Partial fill upon patient request if the prescription is for a schedule II opi... Start Date: 05/04/20 Status: Ordered Spiriva Respimat 60 ACT 2.5 mcg/inh inhalation aerosol 2 puffs, Inhalation, Daily, # 1 each, 11 Refills, Maintenance, 04/05/20 14:17:00 EST, [facility]/pharmacy #[id number], Partial fill upon patient [...] 08/16/20 11:59:00 EDT, Route to Pharmacy Electronically, [facility]/pharmacy #[id number], 163, cm, 08/15/20 14:23:00 EDT, Height, 84.8, kg, 06/25/20 20:28:00... Start Date: 08/16/20 Stop Date: 10/11/20 Status: Ordered Trulicity Pen 0.75 mg/0.5 mL subcutaneous solution 0.5 mL = 0.75 mg, Subcutaneous Injection, Every week, rotate injection sites, # 2 mL, 5 Refills, Maintenance, 10/31/20 15:27:00 EDT, Solution, [facility]/pharmacy #[id number], Partial fill upon patient request ifthe prescription is for a schedule II opioid drug.,... Start Date: 10/31/20 Status: Ordered Urinary Liners Urinary Liners, See [...] [address] Abd 09/18/16 at [facility] [place], pending MRI 3urge and stress Social History Social History Type Response Tobacco Use: Pt states she q uit smoking 1 week ago. Sex
--- OUTSIDE RECORDS SUMMARY | 2023-03-25 08:18 | XMS_ITS | Continuity of Care Document ---
Author Name Unknown Organization [facility] Address [address] [place] [address]- Care Team Providers Care Fashion Journalist Name Role Phone Richardson QUIROZ, Leonora Pérez Primary Care Physician [facility]): 06[facility]20 - 07/26/20 [facility] [address] [place] [address]- Allergies, Adverse Reactions, Alerts Substance Reaction Severity [...] 14:12:00 EST, Powder, Route to Pharmacy Electronically, [id number], [facility]/pharmacy #[id number], 162.56, cm, 03/27/20 11:36:00... Start Date: 04/05/20 Status: Ordered albuterol 0.083% inhalation solution 3 mL = 2.5 mg, Inhalation, Every 4 hours, PRN for wheezing, # 100 each, 5 Refills, Maintenance, 06/27/19 14:32:00 EDT, Solution, [facility]/pharmacy #[id number], 160, cm, 06/01/19 14:08:00 EST, Height, 88.9, kg, 05/23/19 22:09:00 EST, Dry Weight Start Date: 06/27/19 Status: Ordered amitriptyline 50 mg oral tablet 1 tablet = 50 mg, By Mouth, Daily at bedtime, # 30 tablet, 5 Refills, Maintenance, 12/30/19 18:21:00 EDT, Tablet, [facility]/pharmacy #[id number], 163, cm, 12/26/19 13:58:00 EDT, Height, 80, kg, 10/29/19 0:29:00 EDT, Dry Weight Start Date: 12/30/19 Status: Ordered atorvastatin 20 mg oral tablet 1 tablet = 20 mg, By Mouth, Daily, # 90 tablet, 3 Refills, Maintenance, 04/05/20 14:11:00 EST, Tablet, [facility]/pharmacy #[id number], Partial fill upon patient request if the prescription is for a schedule II opioid drug., 162.56, cm, 03/27/20 11:36:00 EST, Heig... Start Date: 04/05/20 Status: Ordered capsaicin 0.025% topical cream 1 application, Topically, 3 times a day, # 45 Gm, 3 Refills, Maintenance, 11/01/19 15:25:00 EDT, Cream, [facility]/pharmacy #[id number], 1 application Topically 3 times a day, 163, cm, 11/01/19 14:40:00 EDT, Height, 80, kg, 10/29/19 0:29:00 EDT, Dry Weight Start Date: 11/01/19 Status: Ordered cetirizine 10 mg oral tablet 1 tablet = 10 mg, By Mouth, Daily, # 30 tablet, 5 Refills, Maintenance, 06/20/20 13:18:00 EDT, Tablet, [facility]/pharmacy #[id number], 162, cm, 05/24/20 9:01:00 EST, Height, 80, kg, 04/18/20 9:48:00 EST, Dry Weight Start Date: 06/20/20 Status: Ordered clonazePAM 0.5 mg oral tablet TAKE 1 TABLET BY MOUTH TWICE A DAY NEEDED Start Date: 06/02/19 Status: Ordered clotrimazole 1% topical cream 1 application, Topically, 2 times a day, # 30 Gm, 1 Refills, Maintenance, 06/04/20 12:46:00 EST, Cream, [facility]/pharmacy #[id number], 1 application Topically 2 times a day, 162, cm, 05/24/20 9:01:00 EST, Height, 80, kg, 04/18/20 9:48:00 EST, Dry Weight Start Date: 06/04/20 Status: Ordered Disposable Bedpad Disposable Bedpad, See Instructions, # 120 each, Refills 11, Tot. 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 NOT INCREASED DOSE, 163, cm, 12/25/2012:58:00 EDT, Height, 80, kg, 10/29/19 0:29:00 EDT,... Start Date: 03/02/20 Status: Ordered hydrochlorothiazide 12.5 mg oral tablet [...] Daily, # 30 tablet, 5 Refills, Maintenance, 12/30/19 18:21:00 EDT, Tablet, [id number], 163, cm, 12/26/19 13:58:00 EDT, Height, 80, kg, 10/29/19 0:29:00 EDT, Dry Weight Start Date: 12/30/19 Status: Ordered Lantus 100 u/ml subcutaneous solution = 40 units, Subcutaneous Injection, Daily, # 12 mL, 11 Refills, Maintenance, 05/07/20 13:24:00 EST,Solution, [facility]/pharmacy #[id number], increased dose 12/26/19, 162, cm, 04/21/20 11:33:00 EST, Height, 80, kg, 04/18/20 9:48:00 EST, Dry Weight Start Date: 05/07/20 Status: Ordered lidocaine 5% topical film 1 patch, Topically, Daily, For chronic radicular back pain, # 30 patch, 5 Refills, Maintenance, 03/09/20 8:53:00 EST, [facility]/pharmacy #[id number], 1 patch Topically Daily,Instr:For chronic radicular back pain, 163, cm, 12/26/19 13:58:00 EDT, Height, 80, kg, 07... Start Date: 03/09/20 Status: Ordered lisinopril 20 mg oral tablet 20 mg, 1, tablet, By Mouth, Daily, # 30 tablet, Refills 11, Tot. Refills 11, Maintenance, 05/07/20 13:30:00 EST, Route to Pharmacy Electronically, [facility]/pharmacy #[id number], 162, cm, 04/21/20 11:33:00 EST, Height, 80, kg, 04/18/20 9:48:00 EST, Dry Weight Start Date: 05/07/20 Status: Ordered Mapap 325 mg oral tablet 2 tablet = 650 mg, By Mouth, Every 4 hours, PRN for pain, not to exceed 3000 mg/day. instructions in serbian, # 120 tablet, 2 Refills, Maintenance, 11/01/19 15:24:00 EDT, Tablet, [facility]/pharmacy #[id number], 163, cm, 11/01/19 14:40:00 EDT, Height, 80, kg, 07/... Start Date: 11/01/19 Status: Ordered mirtazapine 30 mg oral tablet 1 tablet = 30 mg, By Mouth, Daily at bedtime, Maintenance, 05/24/19 9:12:00 EST, Tablet Start Date: 05/24/19 Status: Ordered naproxen 500 mg oral tablet 1 tablet = 500 mg, By Mouth, 2 times a day, For back pain, # 60 tablet, 2 Refills, Maintenance, 04/05/20 14:08:00 EST, Tablet, [facility]/pharmacy #[id number], Partial fill upon patient request if the prescription is for a schedule II opioid drug., 162.56, cm, ... Start Date: 04/05/20 Status: Ordered omeprazole 40 mg oral enteric coated capsule 1 capsule = 40 mg, By Mouth, Daily, # 30 capsule, 3 Refills, Maintenance, 05/24/20 9:40:00 EST, EC Capsule, [facility]/pharmacy #[id number], note dose increase, 162, cm, 05/24/20 9:01:00 EST, Height, 80, kg, 04/18/20 9:48:00 EST, Dry Weight Start Date: 05/24/20 Status: Ordered Oxycodone = 10 mg, By Mouth, Every 12 hours, PRN Pain , Severe, LBP, 0 Refills, Maintenance, 12/07/19 15:23:00 EDT, Partial fill upon patient request Start Date: 12/07/19 Status: Ordered oxyCODONE 10 mg oral tablet 1 tablet = 10 mg, By Mouth, 2 times a day, for 28 days, on contract at [facility], # 56 tablet, 0 Refills, Acute 07/30/20 8:00:00 EDT, 07/02/20 8:00:00 EDT, [facility]/pharmacy #[id number], Partial fill upon patient request if the prescription is for a schedule II opioi... Start Date: 07/02/20 Stop Date: 07/30/20 Status: Ordered Senna 8.6 mg oral tablet 8.6 mg, 1, tablet, By Mouth, Daily at bedtime, # 100 tablet, Refills 2, Tot. Refills 2, Maintenance, 06/04/20 12:46:00 EST, Route to Pharmacy Electronically, [facility]/pharmacy #[id number], 162, cm, 05/24/20 9:01:00 EST, Height, 80, kg, 04/18/20 9:48:00 EST, Dry... Start Date: 06/04/20 Status: Ordered Soma 350 mg oral tablet 350 mg, 1, tablet, By Mouth, 3 times a day, # 9 tablet, Refills 0, Tot. Refills 0, Maintenance, 05/04/20 15:46:00 EST, Route to Pharmacy Electronically, [facility]/pharmacy #[id number], Partial fill upon patient request if the prescription is for a schedule II opi... Start Date: 05/04/20 Status: Ordered Spiriva Respimat 60 ACT 2.5 mcg/inh inhalation aerosol 2 puffs, Inhalation, Daily, # 1 each, 11 Refills, Maintenance, 04/05/20 14:17:00 EST, [facility]/pharmacy #[id number], Partial fill upon patient request if the prescription is for a schedule II opioid drug., 162.56, cm, 03/27/20 11:36:00 EST, Height, 81.81, kg, 12... Start Date: 04/05/20 Status: Ordered tiZANidine 4 mg oral tablet 4 mg, 1, tablet, By Mouth, Every 8 hours, PRN, # 84 tablet, Refills 1, Tot. Refills 1, Maintenance,Spasm, 05/03/20 11:26:00 EST, [id number] 162, cm, 04/21/20 11:33:00 EST, Height, 80, kg, 04/18/20 9:48:00 ES... Start Date: 05/03/20 Stop Date: 06/28/20 Status: Ordered Urinary Liners Urinary Liners, See [...] [address] Abd 09/18/16 at [place], pending MRI 3urge and stress Social History Social History Type Response Tobacco Use: Pt states she q uit smoking 1 week ago. Sex
--- OUTSIDE RECORDS SUMMARY | 2023-03-25 08:18 | XMS_ITS | Continuity of Care Document ---
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, Leonora Pérez Primary Care Physician Encounter [facility] Date(s): 10/14/22 - 11/13/22 [facility] [address] [place] [address]- Allergies, Adverse Reactions, Alerts Substance Reaction Severity Status morphine Active gabapentin swelling Active Lyrica dysphagia Active SEROquel body swelling - all over Act tony MetFORMIN Hydrochloride ER black tarry stool Active Immunizations Given and Recorded Vaccine Date Status Refusal Reason [id number] 12y+ bivalent booster vax 01/30/22 Given influenza virus vaccine, inactivated 01/30/22 Give n influenza virus vaccine, inactivated 02/04/21 Give n influenza virus vaccine, inactivated 1 04/19/20 Gi tonio influenza virus vaccine, inactivated 03/12/19 Give n influenza virus vaccine, inactivated 01/19/18 Give n influenza virus vaccine, inactivated 02/16/17 Give n pneumococcal 20-valent conjugate vaccine 12/26/21 Given SARS-CoV-2 mRNA (pituteu-aiit-ynego) vax 05/14/21 Given SARS-CoV-2 (COVID-19) mRNA BNT-162b2 vac 2 10/19/20 Given SARS-CoV-2 (COVID-19) mRNA BNT-162b2 vac 09/28/20 Given pneumococcal 23-valent vaccine 03/12/19 Given tetanus/diphtheria/pertussis, acel(Tdap) 07/29/13 Given 1Early/Late Reason: Early/Late Reason: Patient Not Available/Off Unit 2? Unknown: Resend to [facility]. Resend to [facility]. Medications acetaminophen 325 mg oral tablet 650 mg, 2, tablet, By Mouth, 3 times a day, # 100 tablet, Refills 5, Tot. Refills 5, Maintenance, 09/25/22 17:00:00 EDT, Route to Pharmacy Electronically, [facility], Partial fill upon patient request if the prescription is for a sched... Start Date: 09/25/22 Status: Ordered Advair Diskus 500 mcg-50 mcg inhalation powder 1, inhalation, Inhalation, 2 times a day, rinse mouth and throat after use, # 60 each, Refills 11, Tot. Refills 11, Maintenance, 09/25/22 17:00:00 EDT, Inhaler, Route to Pharmacy Electronically, [id number], [facility]... Start Date: 09/25/22 Status: Ordered albuterol 0.083% inhalation solution 3 mL = 2.5 mg, 0 Refills, Maintenance, 02/06/22 16:39:00 EDT, Partial fill upon patient request if the prescription is for a schedule II opioid drug. Start Date: 02/06/22 Status: Ordered All Day Allergy 10 mg oral tablet 1 tablet, By Mouth, Daily, # 90 tablet, 1 Refills, Maintenance, 07/25/22 12:30:00 EDT, [facility], 163, cm, 07/11/22 14:19:00 EDT, Height, 83, kg, 02/11/22 19:19:00 EST, Dry Weight Start Date: 07/25/22 Status: Ordered amLODIPine 5 mg oral tablet 5 mg, 1, tablet, By Mouth, Daily, # 90 tablet, Refills 3, Tot. Refills 3, Maintenance, 04/29/22 11:56:00 EST, Route to Pharmacy Electronically, [facility], Partial fill upon patient request if the prescription is for a schedule II opio... Start Date: 04/29/22 Status: Ordered atorvastatin 40 mg oral tablet 1 tablet = 40 mg, By Mouth, Daily, # 90 tablet, 3 Refills, Maintenance, 09/25/22 16:58:00 EDT, Tablet, [facility] Partial fill upon patient request if the prescription is for a schedule II opioid drug., 163, cm, 09/25/22 16:20:00 EDT,... Start Date: 09/25/22 Status: Ordered Bed Pads Bed Pads, See Instructions, # 60 each, Refills 11, Tot. Refills 11, Maintenance, Dx: mixed urinary incontinence, two per day, 11/10/22 9:43:00 EDT, Supply Start Date: 11/10/22 Status: Ordered clonazePAM 0.5 mg oral tablet 1 tablet = 0.5 mg, By Mouth, 2 times a day, # 60 tablet, 0 Refills, Maintenance, 07/25/22 17:58:00 EDT, [facility] Partial fill upon patient request if the prescription is for a schedule II opioid drug., 163, cm, 07/11/22 14:19:00 EDT... Start Date: 07/25/22 Status: Ordered clonazePAM 0.5 mg oral tablet TAKE 1 TABLET BY MOUTH TWICE A DAY NEEDED Start Date: 06/02/19 Status: Ordered clotrimazole 1% topical cream See Instructions, APPLY TOPICALLY TO AFFECTED AREA TWO TIMES A DAY, # 30 Gm, 1 Refills, Maintenance, 09/03/22 14:02:00 EDT, [facility], 15, APPLY TOPICALLY TO AFFECTED AREA TWO TIMES A DAY,163, cm, 08/14/22 16:50:00 EDT, Height, 83, kg, 11/... Start Date: 09/03/22 Status: Ordered docusate-senna 50 mg-187 mg oral tablet 2 tablet, By Mouth, 2 times a day, PRN Constipation, # 100 tablet, 11 Refills, Maintenance, 08/14/22 16:57:00 EDT, Tablet, [facility]., Partial fill upon patient request if the prescription is for a schedule II opioid drug., 2 tablet By... Start Date: 08/14/22 Status: Ordered duloxetine 60 mg oral enteric coated capsule 2 capsule = 120 mg, By Mouth, Daily, # 60 capsule, 5 Refills, Maintenance, 05/26/22 17:03:00 EST, Capsule, [facility] Partial fill upon patient request. NOT INCREASED DOSE. Please cancel all other Duloxetine scripts, 163, cm, 05/19/22... Start Date: 05/26/22 Status: Ordered empagliflozin 10 mg oral tablet 1 tablet = 10 mg, By Mouth, Daily in AM, # 90 tablet, 3 Refills, Maintenance, 09/25/22 17:01:00 EDT, Tablet, [facility]., Partial fill upon patient request if the prescription is for aschedule II opioid drug., 163, cm, 09/25/22 16:20:0... Start Date: 09/25/22 Status: Ordered Four wheeled walker with seat and brakes Four wheeled walker with seat and brakes, See Instructions, # 1 each, Refills 0, Tot. Refills 0, Maintenance, Use as directed when ambulating for fall prevention. Dx M54.9, M54.16, R26.81 Duration: Lifetime, 09/30/22 10:09:00 EDT, Supply Start Date: 09/30/22 Status: Ordered ibuprofen 800 mg oral tablet 1, tablet, By Mouth, 3 times a day, PRN, # 90 tablet, Refills 1, Tot. Refills 1, Maintenance, NEEDED FOR PAIN, 10/22/22 15:19:00 EDT, Route to Pharmacy Electronically, [facility] 163, cm, 09/25/22 16:20:00 EDT, Height, 83, kg, 11/0... Start Date: 10/22/22 Status: Ordered lidocaine 5% topical film 1 patch, Topically, Daily, PRN Pain , Mild, remove after 12 hours, # 13 each, 5 Refills, Maintenance, 09/25/22 16:59:00 EDT, Film, [facility] Partial fill upon patient request if theprescription is for a schedule II opioid drug., 1 p... Start Date: 09/25/22 Status: Ordered lisinopril 20 mg oral tablet 20 mg, 1, tablet, By Mouth, Daily, # 90 tablet, Refills 1, Tot. Refills 1, Maintenance, 07/25/22 12:31:00 EDT, Route to Pharmacy Electronically, [facility], 163, cm, 07/11/22 14:19:00EDT, Height, 83, kg, 02/11/22 19:19:00 EST, Dry Weight Start Date: 07/25/22 Status: Ordered mirtazapine 30 mg oral tablet 1 tablet = 30 mg, By Mouth, Daily at bedtime, # 90 tablet, 1 Refills, Maintenance, 09/25/22 17:00:00 EDT, Tablet, [facility], Partial fill upon patient request if the prescription is for a schedule II opioid drug., 163, cm, 09/25/22 16... Start Date: 09/25/22 Status: Ordered omeprazole 40 mg oral enteric coated capsule 1 capsule, By Mouth, Daily, PRN NEEDED, # 30 capsule, 2 Refills, 08/26/22 13:27:00 EDT, [facility], 163, cm, 08/14/22 16:50:00 EDT, Height, 83, kg, 02/11/22 19:19:00 EST, Dry Weight Start Date: 08/26/22 Status: Ordered oxyCODONE 15 mg oral tablet 1 tablet = 15 mg, By Mouth, 3 times a day, on contract at [facility], # 84 tablet, 0 Refills, Maintenance, 10/24/22 11:04:00 EDT, [facility], Partial fill upon patient request if the prescription is for a schedule II opioid drug., 163, cm, 0... Start Date: 10/24/22 Stop Date: 11/21/22 Status: Ordered Panty liners Panty liners, See Instructions, # 120 each, Refills 11, Tot. Refills 11, Maintenance, Dx: mixed urinary incontinence, four per day, 11/10/22 9:43:00 EDT, Supply Start Date: 11/10/22 Status: Ordered prazosin 2 mg oral capsule 0 Refills, Maintenance, 02/06/22 16:42:00 EDT, Partial fill upon patient request if the prescription is for a schedule II opioid drug. Start Date: 02/06/22 Status: Ordered tiZANidine 4 mg oral capsule 1 capsule = 4 mg, By Mouth, 3 times a day, PRN Pain , Severe, # 90 capsule, 1 Refills, Maintenance,09/25/22 16:54:00 EDT, [facility], 163, cm, 09/25/22 16:20:00 EDT, Height, 83, kg, 02/11/22 19:19:00 EST, Dry Weight Start Date: 09/25/22 Status: Ordered traZODone 50 mg oral tablet 1/2 TO 1 TABLET, By Mouth, Daily at bedtime, # 30 tablet, Refills 5, Maintenance, 08/29/22 11:31:00EDT, Route to Pharmacy Electronically, [facility], 163, cm, 08/14/22 16:50:00 EDT, Height, 83, kg, 02/11/22 19:19:00 EST, Dry Weight Start Date: 08/29/22 Status: Ordered triamcinolone 55 mcg/inh nasal spray 1 sprays = 55 mcg, Nares, Both, Daily, # 1 each, 5 Refills, Maintenance, 08/14/22 16:59:00 EDT, [facility], Partial fill upon patient request if the prescription is for a schedule II opioid drug., 1 sprays Nares, Both Daily, 163, cm, 0... Start Date: 08/14/22 Status: Ordered Trulicity Pen 1.5 mg/0.5 mL subcutaneous solution = 1.5 mg, Subcutaneous Infusion, Every week, # 4 each, 5 Refills, Maintenance, 07/25/22 18:12:00 EDT, [facility], Partial fill upon patient request if the prescription is for a schedule II opioid drug., 163, cm, 07/11/22 14:19:00 EDT,... Start Date: 07/25/22 Status: Ordered Walker See Instructions, # 1 each, Maintenance, Dispense: wheeled walker with seat and breaks Dx: Lumbar radiculopathy, 09/30/22 10:10:00 EDT, Supply Start Date: 09/30/22 Status: Ordered Problem List Condition Confirmation Course Effective Dates Status H ealth Status Informant Carpal tunnel syndrome, right Confirmed Active Anxiety Confirmed Active Chronic low back pain Confirmed Active Pancreatic lesion 1 Confirmed Active Hypertension Confirmed Active Fibromyalgia Confirmed Active Food insecurity Confirmed Active Hyperglycemia due to diabetes mellitus Confirmed Active Hyperlipidemia Confirmed Active Hypokalemia Confirmed Active Lesion of liver 2 Confirmed Active Hyperactivity of bladder Confirmed Active Facet syndrome, lumbar Confirmed Active Lumbar radiculopathy Confirmed Active Major depressive disorder Confirmed Active Obesity Confirmed Active MARILIN on CPAP Confirmed Active Panic attacks Confirmed Active 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 [phone] Confirmed Active Syncope and collapse Confirmed Active Tobacco dependence Confirmed Active DM2 (diabetes mellitus, type 2) Confirmed 04/03/17 Active Incontinence of urine 3 Confirmed Active 1seen on MRI 10/2016, rec repeat imaging in October [address] Abd 09/18/16 at [facility], pending MRI 3urge and stress Social History Social History Type Response Smoking Status Current every day sm oker; Type: Cigarettes; Tobacco use times per day: 1/2 ppd; entered on: 12/24/17 Sex Patient Care team information Care Team Personnel Name: Sindy Bernal RN Position: [facility] RN Member Role: Primary Care Nurse Name: Graciela Thrasher RN Position: [facility] RN Member Role: Primary Care Nurse Name: Stevie Angel RN Position: [facility] RN Member Role: Primary Care Nurse Name: Leonora Bai NP Position: [facility] PCO Associate Professional Member Role: PCP Address: Address: [address] [place] [id number] Name: Keily Ortega RN Position: [facility] RN Member Role: Primary Care Nurse Name: Nichole Pichardo RN Position: [facility] RN Member Role: Primary Care Nurse Name: Melvin Whitfield RN Position: [facility] AMB Nurse Member Role: Primary Care Nurse Name: Phuong Berkowitz RN Position: [facility] RN Member Role: Primary Care Nurse Name: Joselyn Rain RN Position: [facility] Hospital 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
--- OUTSIDE RECORDS SUMMARY | 2023-03-25 08:18 | XMS_ITS | Continuity of Care Document ---
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 Start Date: 04/05/20 Status: Ordered albuterol 0.083% inhalation solution 3 mL = 2.5 mg, Inhalation, Every 4 hours, PRN for wheezing, # 100 each, 5 Refills, Maintenance, 06/27/19 14:32:00 EDT, Solution, [id number], 160, cm, 06/01/19 14:08:00 EST, Height, [...] opioid drug., 162.56, cm, 03/27/20 11:36:00 EST, Dilshadig... Start Date: 04/05/20 Status: Ordered capsaicin 0.025% [...] Daily, # 30 tablet, 5 Refills, Maintenance, 12/13/19 18:32:00 EDT, Tablet, [id number], 163, cm, 12/13/19 15:57:00 EDT, Height, 80, kg, 10/29/19 0:29:00 EDT, Dry Weight Start Date: 12/13/19 Status: Ordered clonazePAM 0.5 mg oral tablet TAKE 1 TABLET BY MOUTH TWICE A DAY NEEDED Start Date: 06/02/19 Status: Ordered clotrimazole 1% topical cream 1 application, Topically, 2 times a day, # 30 Gm, 1 Refills, Maintenance, 02/03/20 13:47:00 EDT, Cream, [facility]acy #[id number], 1 application Topically 2 times a day, 163, cm, 12/26/19 13:58:00 EDT, Height, 80, kg, 10/29/19 0:29:00 EDT, Dry Weight Start Date: 02/03/20 Status: Ordered duloxetine 60 mg oral enteric [...] 5 Refills, Maintenance, 12/30/19 18:21:00 EDT, Tablet, [facility]pharmacy #[id number], 163, cm, 12/26/19 13:58:00 EDT, Height, 80, kg, 10/29/19 0:29:00 EDT, Dry Weight Start Date: 12/30/19 Status: Ordered Lantus 100 u/ml subcutaneous solution = 30 units, Subcutaneous Injection, Daily, # 10 mL, 11 Refills, Maintenance, 12/26/19 14:22:00 EDT,Solution, [id number], increased dose 12/26/19, 163, cm, 12/26/19 13:58:00 EDT, Height, 80, kg, 10/29/19 0:29:00 EDT, Dry Weight Start Date: 12/26/19 Status: Ordered lidocaine 5% topical film 1 patch, Topically, Daily, For chronic radicular back pain, # 30 patch, 5 Refills, Maintenance, 03/09/20 8:53:00 EST, [facility]/pharmacy #[id number], 1 patch Topically Daily,Instr:For chronic radicular back pain, 163, cm, 12/26/19 13:58:00 EDT, Height, 80, kg, 07... Start Date: 03/09/20 Status: Ordered lisinopril 20 mg oral tablet 20 mg, 1, tablet, By Mouth, Daily, # 30 tablet, Refills 0, Tot. Refills 0, Maintenance, 12/13/19 14:04:00 EDT, Print Requisition Start Date: 12/13/19 Status: Ordered Mapap 325 mg oral tablet 2 tablet = 650 mg, By Mouth, Every 4 hours, PRN for pain, not to exceed 3000 mg/day. instructions in [place], # 120 tablet, 2 Refills, Maintenance, 11/01/19 15:24:00 EDT, Tablet, [facility]/pharmacy #[id number], 163, cm, 11/01/19 14:40:00 EDT, Height, [...] 2 Refills, Maintenance, 04/05/20 14:08:00 EST, Tablet, [facility]/pharmacy #[id number], Partial fill upon patient request if the prescription is for a schedule II opioid drug., 162.56, cm, ... Start Date: 04/05/20 Status: Ordered omeprazole 20 mg oral enteric coated capsule 1 capsule = 20 mg, By Mouth, Daily, Use as little as possible to control symptoms., # 30 capsule, 2Refills, Maintenance, 10/06/19 7:45:00 EDT, EC Capsule, [facility]/pharmacy #[id number], cancel Ranitidine, 160,cm, 09/28/19 8:58:00 EDT, Height, 86.8, kg, ... Start Date: 10/06/19 Status: Ordered Oxycodone = 10 mg, By Mouth, Every 12 hours, PRN Pain , Severe, LBP, 0 Refills, Maintenance, 12/07/19 15:23:00 EDT, Partial fill upon patient request Start Date: 12/07/19 Status: Ordered oxyCODONE 10 mg oral tablet 1 tablet = 10 mg, By Mouth, 2 times a day, for 28 days, # 56 tablet, 0 Refills, Acute 05/03/20 14:10:00 EST, 04/05/20 14:10:00 EST, [facility]/pharmacy #[id number], Partial fill upon patient request if the prescription is for a schedule II opioid drug. Client on c... Start Date: 04/05/20 Stop Date: 05/03/20 Status: Ordered Senna 8.6 mg oral tablet 8.6 mg, 1, tablet, By Mouth, Daily at bedtime, # 100 tablet, Refills 2, Tot. Refills 2, Maintenance, 06/10/19 16:12:00 EST, Route to Pharmacy Electronically, [facility]/pharmacy #[id number], 160, cm, 06/01/19 14:08:00 EST, Height, 88.9, kg, 05/23/19 22:09:00 EST,... Start Date: 06/10/19 Status: Ordered Spiriva Respimat 60 ACT 2.5 mcg/inh inhalation aerosol 2 puffs, Inhalation, Daily, # 1 each, 11 Refills, Maintenance, 04/05/20 14:17:00 EST, [facility]/pharmacy #[id number], Partial fill upon patient request if the prescription is for a schedule II opioid drug., 162.56, cm, 03/27/20 11:36:00 EST, Height, 81.81, kg, 12... Start Date: 04/05/20 Status: Ordered tiZANidine 4 mg oral tablet 4 mg, 1, tablet, By Mouth, Every 8 hours, PRN, # 84 tablet, Refills 1, Tot. Refills 1, Maintenance,Spasm, 02/03/20 13:47:00 EDT, Route to Pharmacy Electronically, [facility]/pharmacy #[id number], 163, cm, 12/26/19 13:58:00 EDT, Height, 80, kg, 10/29/19 0:29:00 ED... Start Date: 02/03/20 Stop Date: 03/30/20 Status: Ordered Vitamin D3 5000 intl units [...] [address] Abd 09/18/16 at [facility], [place] 3urge and stress Social History Social History Type Response Tobacco Use: Pt states she q uit smoking 1 week ago. Sex Female
--- OUTSIDE RECORDS SUMMARY | 2023-03-25 08:18 | XMS_ITS | Continuity of Care Document ---
Author Name Unknown Organization [facility] Adult Medicine Address [address] [place] [address]- Care Team Providers Care Machine Candle Molder Name Role Phone Richardson DIETETICS PROFESSOR, Leonora Pérez Primary Care Physician [phone] Encounter [facility] Date(s): 10/01/22 - 10/31/22 [facility] Adult Medicine [address] [place] [address]- Allergies, Adverse Reactions, Alerts Substance Reaction Severity Status morphine Active gabapentin swelling Active Lyrica dysphagia Active SEROquel body swelling - all over Act tony MetFORMIN Hydrochloride ER black tarry stool Active Immunizations Given and Recorded Vaccine Date Status Refusal Reason [id number] 12y+ bivalent booster vax 01/30/22 Given influenza virus vaccine, inactivated 01/30/22 Give n influenza virus vaccine, inactivated 02/04/21 Give n influenza virus vaccine, inactivated 1 04/19/20 Gi tonio influenza virus vaccine, inactivated 03/12/19 Give n influenza virus vaccine, inactivated 01/19/18 Give n influenza virus vaccine, inactivated 02/16/17 Give n pneumococcal 20-valent conjugate vaccine 12/26/21 Given SARS-CoV-2 mRNA ([id number]) vax 05/14/21 Given SARS-CoV-2 (COVID-19) mRNA BNT-162b2 [...] 09/25/22 17:00:00 EDT, Route to Pharmacy Electronically, [facility], Partial fill upon patient request if the prescription is for a sched... Start Date: 09/25/22 Status: Ordered Advair Diskus 500 mcg-50 mcg inhalation powder 1, inhalation, Inhalation, 2 times a day, rinse mouth and throat after use, # 60 each, Refills 11, Tot. Refills 11, Maintenance, 09/25/22 17:00:00 EDT, Inhaler, Route to Pharmacy Electronically, [id number], [facility]... Start Date: 09/25/22 Status: Ordered albuterol 0.083% inhalation solution 3 mL = 2.5 mg, 0 Refills, Maintenance, 02/06/22 16:39:00 EDT, Partial fill upon patient request if the prescription is for a schedule II opioid drug. Start Date: 02/06/22 Status: Ordered All Day Allergy 10 mg oral tablet 1 tablet, By Mouth, Daily, # 90 tablet, 1 Refills, Maintenance, 07/25/22 12:30:00 EDT, [facility], 163, cm, 07/11/22 14:19:00 EDT, Height, 83, kg, 02/11/22 19:19:00 EST, Dry Weight Start Date: 07/25/22 Status: Ordered amLODIPine 5 mg oral tablet 5 mg, 1, tablet, By Mouth, Daily, # 90 tablet, Refills 3, Tot. Refills 3, Maintenance, 04/29/22 11:56:00 EST, Route to Pharmacy Electronically, [facility], Partial fill upon patient request if the prescription is for a schedule II opio... Start Date: 04/29/22 Status: Ordered atorvastatin 40 mg oral tablet 1 tablet = 40 mg, By Mouth, Daily, # 90 tablet, 3 Refills, Maintenance, 09/25/22 16:58:00 EDT, Tablet, [facility] Partial fill upon patient request if the prescription is for a schedule II opioid drug., 163, cm, 09/25/22 16:20:00 EDT,... Start Date: 09/25/22 Status: Ordered Bed Pads Bed Pads, See Instructions, # 60 each, Refills 11, Tot. Refills 11, Maintenance, Dx: mixed urinary incontinence, two per day, 10/22/22 15:02:00 EDT, Supply Start Date: 10/22/22 Status: Ordered clonazePAM 0.5 mg oral tablet 1 tablet = 0.5 mg, By Mouth, 2 times a day, # 60 tablet, 0 Refills, Maintenance, 07/25/22 17:58:00 EDT, [facility]., Partial fill upon patient request if the [...] Gm, 1 Refills, Maintenance, 09/03/22 14:02:00 EDT, [facility], 15, APPLY TOPICALLY TO AFFECTED AREA TWO TIMES A DAY,163, cm, 08/14/22 16:50:00 EDT, Height, 83, kg, 11/... Start Date: 09/03/22 Status: Ordered docusate-senna 50 mg-187 mg oral tablet 2 tablet, By Mouth, 2 times a day, PRN Constipation, # 100 tablet, 11 Refills, Maintenance, 08/14/22 16:57:00 EDT, Tablet, [facility]., Partial fill upon patient request if the prescription is for a schedule II opioid drug., 2 tablet By... Start Date: 08/14/22 Status: Ordered duloxetine 60 mg oral enteric coated capsule 2 capsule = 120 mg, By Mouth, Daily, # 60 capsule, 5 Refills, Maintenance, 05/26/22 17:03:00 EST, Capsule, [facility] Partial fill upon patient request. NOT INCREASED DOSE. Please cancel all other Duloxetine scripts, 163, cm, 05/19/22... Start Date: 05/26/22 Status: Ordered empagliflozin 10 mg oral tablet 1 tablet = 10 mg, By Mouth, Daily in AM, # 90 tablet, 3 Refills, Maintenance, 09/25/22 17:01:00 EDT, Tablet, [facility]., Partial fill upon patient request if the [...] 10/22/22 15:19:00 EDT, Route to Pharmacy Electronically, [facility]., 163, cm, 09/25/22 16:20:00 EDT, Height, 83, kg, 11/0... Start Date: 10/22/22 Status: Ordered lidocaine 5% topical film 1 patch, Topically, Daily, PRN Pain , Mild, remove after 12 hours, # 13 each, 5 Refills, Maintenance, 09/25/22 16:59:00 EDT, Film, [facility]., Partial fill upon patient request if theprescription is for a schedule II opioid drug., 1 p... Start Date: 09/25/22 Status: Ordered lisinopril 20 mg oral tablet 20 mg, 1, tablet, By Mouth, Daily, # 90 tablet, Refills 1, Tot. Refills 1, Maintenance, 07/25/22 12:31:00 EDT, Route to Pharmacy Electronically, [facility], 163, cm, 07/11/22 14:19:00EDT, Height, 83, kg, 02/11/22 19:19:00 EST, Dry Weight Start Date: 07/25/22 Status: Ordered mirtazapine 30 mg oral tablet 1 tablet = 30 mg, By Mouth, Daily at bedtime, # 90 tablet, 1 Refills, Maintenance, 09/25/22 17:00:00 EDT, Tablet, [facility], Partial fill upon patient request if the prescription is for a schedule II opioid drug., 163, cm, 09/25/22 16... Start Date: 09/25/22 Status: Ordered omeprazole 40 mg oral enteric coated capsule 1 capsule, By Mouth, Daily, PRN NEEDED, # 30 capsule, 2 Refills, 08/26/22 13:27:00 EDT, [facility], 163, cm, 08/14/22 16:50:00 EDT, Height, 83, kg, 02/11/22 19:19:00 EST, Dry Weight Start Date: 08/26/22 Status: Ordered oxyCODONE 15 mg oral tablet 1 tablet = 15 mg, By Mouth, 3 times a day, on contract at [facility], # 84 tablet, 0 Refills, Maintenance, 10/24/22 11:04:00 EDT, [facility], Partial fill upon patient request if the prescription is for a schedule II opioid drug., 163, cm, 0... Start Date: 10/24/22 Stop Date: 11/21/22 Status: Ordered Panty liners Panty liners, See Instructions, # 120 each, Refills 11, Tot. Refills 11, Maintenance, Dx: mixed urinary incontinence, four per day, 10/22/22 15:05:00 EDT, Supply Start Date: 10/22/22 Status: Ordered prazosin 2 mg oral capsule 0 Refills, Maintenance, 02/06/22 16:42:00 EDT, Partial fill upon patient request if the prescription is for a schedule II opioid drug. Start Date: 02/06/22 Status: Ordered tiZANidine 4 mg oral capsule 1 capsule = 4 mg, By Mouth, 3 times a day, PRN Pain , Severe, # 90 capsule, 1 Refills, Maintenance,09/25/22 16:54:00 EDT, [facility], 163, cm, 09/25/22 16:20:00 EDT, Height, 83, kg, 02/11/22 19:19:00 EST, Dry Weight Start Date: 09/25/22 Status: Ordered traZODone 50 mg oral tablet 1/2 TO 1 TABLET, By Mouth, Daily at bedtime, # 30 tablet, Refills 5, Maintenance, 08/29/22 11:31:00EDT, Route to Pharmacy Electronically, [facility], 163, cm, 08/14/22 16:50:00 EDT, Height, 83, kg, 02/11/22 19:19:00 EST, Dry Weight Start Date: 08/29/22 Status: Ordered triamcinolone 55 mcg/inh nasal spray 1 sprays = 55 mcg, Nares, Both, Daily, # 1 each, 5 Refills, Maintenance, 08/14/22 16:59:00 EDT, [facility], Partial fill upon patient request if the prescription is for a schedule II opioid drug., 1 sprays Nares, Both Daily, 163, cm, 0... Start Date: 08/14/22 Status: Ordered Trulicity Pen 1.5 mg/0.5 mL subcutaneous solution = 1.5 mg, Subcutaneous Infusion, Every week, # 4 each, 5 Refills, Maintenance, 07/25/22 18:12:00 EDT, [facility], Partial fill upon patient request if the [...] Confirmed Active Panic attacks Confirmed Active N/CP School Psychologist Assistant Charlene Fabian [phone] Confirmed Active Syncope and collapse Confirmed Active Tobacco dependence Confirmed Active DM2 (diabetes mellitus, type 2) Confirmed 04/03/17 Active Incontinence of urine 3 Confirmed Active 1seen on MRI 10/2016, rec repeat imaging in October [address] Abd 09/18/16 at [facility], pending MRI 3urge and stress Social History Social History Type Response Smoking Status Current every day sm oker; Type: Cigarettes; Tobacco use times per day: 1/2 ppd; entered on: 12/24/17 Sex Patient Care team information Care Team Personnel Name: Sindy Bernal RN Position: [facility] RN Member Role: Primary Care Nurse Name: Graciela Thrasher RN Position: [facility] RN Member Role: Primary Care Nurse Name: Stevie Angel RN Position: [facility] RN Member Role: Primary Care Nurse Name: Leonora Bai NP Position: [facility] PCO Associate Professional Member Role: PCP Address: Address: [address] [place] [id number] Name: Keily Ortega RN Position: [facility] RN Member Role: Primary Care Nurse Name: Nichole Pichardo RN Position: [facility] RN Member Role: Primary Care Nurse Name: Melvin Whitfield RN Position: [facility] AMB Nurse Member Role: Primary Care Nurse Name: Phuong Berkowitz RN Position: [facility] RN Member Role: Primary Care Nurse Name: Joselyn Rain RN Position: [facility] Hospital Progressive Care Nurse Member Role: Primary Care Nurse Care Team Related Persons Name: NICK IRA Address: home [address] [place] [address] Name: JHON LARSON Address: [address] [place] [address] Name: JHON LARSON Address: [address] [place] [address] Name: GALO CATALAN Name: NANCY CATALAN Address: home [address] [place] [address]
--- OUTSIDE RECORDS SUMMARY | 2023-03-25 08:18 | XMS_ITS | Continuity of Care Document ---
Author Name Unknown Organization [facility] Adult Medicine Address [address] [place] [address]- Care Team Providers Care Activities Leader Name Role Phone Richardson QUIROZ, Leonora Pérez Primary Care Physician Encounter [facility] Date(s): 09/27/19 - 10/28/19 [facility] [address] [place] [address]- [facility] Attending Physician: Not on Staff, Attending MD Allergies, Adverse Reactions, Alerts Substance Reaction [...] 12:48:00 EST, Powder, Route to Pharmacy Electronically, [id number], [id number], 158, cm, 04/26/19 9:58:00 EST, H... Start Date: 04/27/19 Status: Ordered albuterol 0.083% inhalation solution 3 mL = 2.5 mg, Inhalation, Every 4 hours, PRN for wheezing, # 100 each, 5 Refills, Maintenance, 06/27/19 14:32:00 EDT, Solution, [id number], 160, cm, 06/01/19 14:08:00 EST, Height, 88.9, kg, 05/23/19 22:09:00 EST, Dry Weight Start Date: 06/27/19 Status: Ordered Alcohol Pads See Instructions, # 200 each, Refills 11, Tot. Refills 11, Maintenance, Dx: DM2, once daily injections, for injection site hygiene, 09/05/19 14:11:00 EDT, Supply, 160, cm, 07/22/19 15:08:00 EDT, Height, 86.8, kg, 07/22/19 15:13:00 EDT, Dry Weight Start Date: 09/05/19 Status: Ordered amitriptyline 50 mg oral tablet 1 tablet = 50 mg, By Mouth, Daily at bedtime, # 30 tablet, 5 Refills, Maintenance, 10/06/19 7:45:00EDT, Tablet, [id number], 160, cm, 09/28/19 8:58:00 EDT, Height, 86.8, kg, 07/22/19 15:13:00EDT, Dry Weight Start Date: 10/06/19 Status: Ordered atorvastatin 20 mg oral tablet 1 tablet = 20 mg, By Mouth, Daily, Maintenance, 05/24/19 9:12:00 EST, Tablet Start Date: 05/24/19 Status: Ordered cetirizine 10 mg oral tablet 1 tablet = 10 mg, By Mouth, Daily, # 30 tablet, 5 Refills, Maintenance, 04/19/19 15:40:00 EST, Tablet, [id number], 158, cm, 04/04/19 15:21:00 EST, Height, 82, kg, 04/01/19 16:10:00 EST, Dry Weight Start Date: 04/19/19 Status: Ordered clonazePAM 0.5 mg oral tablet TAKE 1 TABLET BY MOUTH TWICE A DAY NEEDED Start Date: 06/02/19 Status: Ordered duloxetine 60 mg oral enteric coated capsule TAKE 1 CAPSULE BY MOUTH EVERY DAY Start Date: 10/29/17 Status: Ordered hydrochlorothiazide 12.5 mg oral tablet 1 tablet = 12.5 mg, By Mouth, Daily, # 90 tablet, 3 Refills, Maintenance, 09/02/19 10:23:00 EDT, Tablet, [id number], PLEASE CANCEL LISINOPRIL, 160, cm, 07/22/19 15:08:00 EDT, Height, 86.8, kg, 07/22/19 15:13:00 EDT, Dry Weight Start Date: 09/02/19 Status: Ordered HYDROmorphone 2 mg oral tablet 1 tablet = 2 mg, By Mouth, Every 4 hours, PRN for pain, Causes sedation. Do not drive or drink alcohol while taking. Do not combine with other narcotic medication., # 20 tablet, 0 Refills, Acute 11/01/19 7:00:00 EDT, 10/27/19 7:30:00 EDT, Tablet, [facility]... Start Date: 10/27/19 Stop Date: 11/01/19 Status: Ordered Insulin Syringe, BD Ultra-Fine 1 cc 31 G x 8 mm (516in) See Instructions, # 30 each, Refills 11, Tot. Refills 11, Maintenance, use to inject insulin daily dx DM E11.9, 09/08/19 13:30:00 EDT, Supply, 160, cm, 07/22/19 15:08:00 EDT, Height, 86.8, kg, 07/22/19 15:13:00 EDT, Dry Weight Start Date: 09/08/19 Status: Ordered Januvia 100 mg oral tablet 1 tablet = 100 mg, By Mouth, Daily, # 30 tablet, 5 Refills, Maintenance, 04/28/19 16:05:00 EST, Tablet, [id number], 158, cm, 04/28/19 14:51:00 EST, Height, 82, kg, 04/01/19 16:10:00 EST, Dry Weight Start Date: 04/28/19 Status: Ordered Lantus 100 u/ml subcutaneous solution = 13 units, Subcutaneous Injection, Daily, # 10 mL, 11 Refills, Maintenance, 09/05/19 14:10:00 EDT,Solution, [id number], 160, cm, 07/22/19 15:08:00 EDT, Height, 86.8, kg, 07/22/19 15:13:00 EDT, Dry Weight Start Date: 09/05/19 Status: Ordered lidocaine 5% topical film 1 patch, Topically, Daily, For chronic radicular back pain, # 30 patch, 5 Refills, Maintenance, 06/27/19 14:37:00 EDT, [id number], 1 patch Topically Daily,Instr:For chronic radicular back pain, 160, cm, 06/01/19 14:08:00 EST, Height, 88.9, kg,... Start Date: 06/27/19 Status: Ordered lithium 300 mg oral tablet, extended release 2 tablet = 600 mg, By Mouth, Daily at bedtime, Maintenance, 05/24/19 9:12:00 EST, ER Tablet Start Date: 05/24/19 Status: Ordered metFORMIN 1000 mg oral tablet 1 tablet = 1,000 mg, By Mouth, 2 times a day, # 60 tablet, 6 Refills, Maintenance, 09/12/19 14:39:00 EDT, Tablet, [id number], 160, cm, 07/22/19 15:08:00 EDT, Height, 86.8, kg, 07/22/19 15:13:00 EDT, Dry Weight Start Date: 09/12/19 Status: Ordered mirtazapine 30 mg oral tablet 1 tablet = 30 mg, By Mouth, Daily at bedtime, Maintenance, 05/24/19 9:12:00 EST, Tablet Start Date: 05/24/19 Status: Ordered omeprazole 20 mg oral enteric coated capsule 1 capsule = 20 mg, By Mouth, Daily, Use as little as possible to control symptoms., # 30 capsule, 2Refills, Maintenance, 10/06/19 7:45:00 EDT, EC Capsule, [id number], cancel Ranitidine, 160,cm, 09/28/19 8:58:00 EDT, Height, 86.8, kg, ... Start Date: 10/06/19 Status: Ordered Pen [place], 31 G x 5 mm BD Ultra Fine III See Instructions, # 100 each, Refills 11, Tot. Refills 11, Maintenance, Dx: Dm2, once daily injections, 09/05/19 14:11:00 EDT, Supply, 160, cm, 07/22/19 15:08:00 EDT, Height, 86.8, kg, 07/22/19 15:13:00 EDT, Dry Weight Start Date: 09/05/19 Status: Ordered prazosin 1 mg oral capsule 1 mg, 1, capsule, By Mouth, Daily at bedtime, for nightmares, # 30 capsule, Refills 0, Tot. Refills0, Maintenance, 05/30/19 18:52:00 EST, Route to Pharmacy Electronically, [id number], 160, cm, 05/30/19 18:08:00 EST, Height, 88.9, kg, 05/23/19... Start Date: 05/30/19 Status: Ordered predniSONE 20 mg oral tablet 2 tablet = 40 mg, By Mouth, Daily, for 4 days, To begin taking the morning of 10/28/19, # 8 tablet, 0 Refills, Acute 10/31/19 23:53:00 EDT, 10/27/19 23:53:00 EDT, Tablet, [id number], 163, cm, 10/27/19 21:10:00 EDT, Height, 75, kg, 10/27/19 21:1... Start Date: 10/27/19 Stop Date: 10/31/19 Status: Ordered Senexon-S 2 tablet, By Mouth, Daily at bedtime, 0 Refills, Maintenance, 11/25/18 10:10:49 EDT Start Date: 11/25/18 Status: Ordered Senna 8.6 mg oral tablet 8.6 mg, 1, tablet, By Mouth, Daily at bedtime, # 100 tablet, Refills 2, Tot. Refills 2, Maintenance, 06/10/19 16:12:00 EST, Route to Pharmacy Electronically, [id number], 160, cm, 06/01/19 14:08:00 EST, Height, 88.9, kg, 05/23/19 22:09:00 EST,... Start Date: 06/10/19 Status: Ordered Spiriva Respimat 60 ACT 2.5 mcg/inh inhalation aerosol 2 puffs, Inhalation, Daily, # 1 each, 5 Refills, Maintenance, 04/26/19 10:30:00 EST, [id number], 158, cm, 04/26/19 9:58:00 EST, Height, 82, kg, 04/01/19 16:10:00 EST, Dry Weight Start Date: 04/26/19 Status: Ordered tiZANidine 4 mg oral tablet 4 mg, 1, tablet, By Mouth, Every 8 hours, # 90 tablet, Refills 1, Tot. Refills 1, Maintenance, 09/02/19 10:12:00 EDT, Route to Pharmacy Electronically, [id number], 160, cm, 07/22/19 15:08:00 EDT, Height, 86.8, kg, 07/22/19 15:13:00 EDT, Dry We... Start Date: 09/02/19 Status: Ordered Vitamin D3 5000 intl units [...] lesion(Confirmed) 4 Active Hypertension(Confirmed) Active Fibromyalgia(Confirmed) Active Food insecurity(Confirmed) Active Hyperlipidemia(Confirmed) Active Lesion of liver(Confirmed) 5 Active Hyperactivity of bladder(Confirmed) Active Facet syndrome, lumbar(Confirmed) Active Lumbar radiculopathy(Confirmed) Active Major depressive disorder(Confirmed) Active Obesity(Confirmed) Active MARILIN on CPAP(Confirmed) Active Panic attacks(Confirmed) Active Acute meniscal tear of right knee(Confirmed) 6 06/2015 Active Tobacco dependence(Confirmed) Active DM2 (diabetes mellitus, type 2)(Confirmed) 04/03/17 Active Incontinence of urine(Confirmed) 7 Active 1surgically repaired November 2015, Dr. Sg MENDEZ 2DJD Lumbar Spine per MRI 3L3-L4 disc herniation per client report 4seen on MRI 10/2016, rec repeat imaging in October [address] Abd 09/18/16 at [facility], pending MRI 6surgically repaired July 2015 Dr. Sg MENDEZ 7urge and stress Vital Signs Most recent to oldest [Reference Range]: 1 Height 160 cm (09/28/19 8:58 AM) Social History Social History Type Response Tobacco Use: Pt states she q uit smoking 1 week ago. Sex Female
--- OUTSIDE RECORDS SUMMARY | 2023-03-25 08:18 | XMS_ITS | Continuity of Care Document ---
Author Name Unknown Organization [facility] Address [address] [place] [address]- Care Team Providers Care Property Field Inspector Name Role Phone Richardson QUIROZ, Leonora Pérez Primary Care Physician [phone] Encounter [facility] Date(s): 04/26/19 - 08/21/19 [facility] [address] [place] [address]- [facility] Attending Physician: Maame Luu MD Admitting Physician: Maame Luu MD Allergies, Adverse Reactions, Alerts Substance Reaction Severity Status gabapentin swelling Active Lyrica dysphagia Active SEROquel body swelling - all over Act toyn Immunizations Given and Recorded Vaccine Date Status [...] 12:48:00 EST, Powder, Route to Pharmacy Electronically, [id number], [facility]/pharmacy #[id number], 158, cm, 04/26/19 9:58:00 EST, H... Start Date: 04/27/19 Status: Ordered albuterol 0.083% inhalation solution 3 mL = 2.5 mg, Inhalation, Every 4 hours, PRN for wheezing, # 100 each, 5 Refills, Maintenance, 06/27/19 14:32:00 EDT, Solution, [facility]/pharmacy #[id number], 160, cm, 06/01/19 14:08:00 EST, [...] 5 Refills, Maintenance, 04/19/19 15:40:00 EST, Tablet, [facility]/pharmacy #[id number], 158, cm, 04/04/19 15:21:00 EST, Height, 82, kg, 04/01/19 16:10:00 EST, Dry Weight Start Date: 04/19/19 Status: Ordered clonazePAM 0.5 mg oral tablet TAKE 1 TABLET BY MOUTH TWICE A DAY NEEDED Start Date: 06/02/19 Status: Ordered clotrimazole 1% topical cream 1 application, Topically, 2 times a day, # 30 Gm, 0 Refills, Maintenance, 05/30/19 19:02:00 EST, Cream, [facility]/pharmacy #[id number], 1 application Topically 2 times [...] 5 Refills, Maintenance, 04/28/19 16:05:00 EST, Tablet, [facility]/pharmacy #[id number], 158, cm, 04/28/19 14:51:00 EST, Height, 82, kg, 04/01/19 16:10:00 EST, Dry Weight Start Date: 04/28/19 Status: Ordered lidocaine 5% topical film 1 patch, Topically, Daily, For chronic radicular back pain, # 30 patch, 5 Refills, Maintenance, 06/27/19 14:37:00 EDT, [facility]/pharmacy #[id number], 1 patch Topically Daily,Instr:For chronic radicular back pain, 160, cm, 06/01/19 14:08:00 EST, Height, 88.9, kg,... Start Date: 06/27/19 Status: Ordered lisinopril 10 mg oral tablet 10 mg, 1, tablet, By Mouth, Daily, # 90 tablet, Refills 3, Tot. Refills 3, Maintenance, 05/08/19 20:27:00 EST, Route to Pharmacy Electronically, [facility]/pharmacy #[id number], to replace 2.5mg dose, 158, [...] not to exceed 3000 mg/day. instructions in upper sorbian, # 120 tablet, 2 Refills, Maintenance, 07/25/19 8:41:00 EDT, Tablet, [facility]/pharmacy #[id number], 160, cm, 07/22/19 15:08:00 EDT, Height, 86.8, kg, 04... Start Date: 07/25/19 Status: Ordered metFORMIN 750 mg oral tablet, extended release 1 tablet = 750 mg, By Mouth, 2 times a day, # 60 tablet, 6 Refills, Maintenance, 05/30/19 18:54:00 EST, ER Tablet, [id number], dose increased to BID 05/30/19, 160, [...] pain, for 28 days, on contract at [facility] # 56 tablet, 0 Refills, Acute 09/12/19 14:55:00 EDT, 08/15/19 14:55:00 EDT, [facility]/pharmacy #[id number], Partial fill upon patient request, 160, cm, 07/22/19 15:08:00 EDT,... Start Date: 08/15/19 Stop Date: 09/12/19 Status: Ordered prazosin 1 mg oral capsule 1 mg, 1, capsule, By Mouth, Daily at bedtime, for nightmares, # 30 capsule, Refills 0, Tot. Refills0, Maintenance, 05/30/19 18:52:00 EST, Route to Pharmacy Electronically, [id number], 160, cm, 05/30/19 18:08:00 EST, Height, 88.9, kg, 05/23/19... Start Date: 05/30/19 Status: Ordered raNITIdine 300 mg oral tablet See Instructions, # 30 tablet, Refills 2 Tot. Refills 2, TAKE 1 TABLET BY MOUTH EVERYDAY AT BEDTIME, [id number] Start Date: 01/27/19 Status: Ordered Senexon-S 2 tablet, By Mouth, Daily at bedtime, 0 Refills, Maintenance, 11/25/18 10:10:49 EDT Start Date: 11/25/18 Status: Ordered senna 187 mg oral tablet 1 tablet = 8.6 mg, By Mouth, Daily at bedtime, PRN as needed for constipation, # 100 tablet, 5 Refills, Maintenance, 05/04/19 9:35:00 EST, [facility]/pharmacy #[id number], 158, cm, 04/28/19 14:51:00 EST, Height, 82, kg, 04/01/19 16:10:00 EST, Dry Weight Start Date: 05/04/19 Status: Ordered Senna 8.6 mg oral tablet 8.6 mg, 1, tablet, By Mouth, Daily at bedtime, # 100 tablet, Refills 2, Tot. Refills 2, Maintenance, 06/10/19 16:12:00 EST, Route to Pharmacy Electronically, [facility]/pharmacy #[id number], 160, cm, 06/01/19 14:08:00 EST, Height, 88.9, kg, 05/23/19 22:09:00 EST,... Start Date: 06/10/19 Status: Ordered Spiriva Respimat 60 ACT 2.5 mcg/inh inhalation aerosol 2 puffs, Inhalation, Daily, # 1 each, 5 Refills, Maintenance, 04/26/19 10:30:00 EST, [facility]/pharmacy #[id number], 158, cm, 04/26/19 9:58:00 EST, Height, 82, kg, 04/01/19 16:10:00 EST, Dry Weight Start Date: 04/26/19 Status: Ordered tiZANidine 2 mg oral tablet 2 mg, 1, tablet, By Mouth, 2 times a day, PRN, # 30 tablet, Refills 2, Tot. Refills 2, Maintenance,as needed for muscle spasm, 07/25/19 8:41:00 EDT, Route to Pharmacy Electronically, [facility]/pharmacy #[id number], 160, cm, 07/22/19 15:08:00 EDT, Height, [...] on CPAP(Confirmed) Active Panic attacks(Confirmed) Active *BHN/BHCP/Efrem Macdonald-[phone]/[facility], active care coordination(Confirmed) Active Acute meniscal tear of right knee(Confirmed) 6 06/2015 Active Tobacco dependence(Confirmed) Active DM2 (diabetes mellitus, type 2)(Confirmed) 04/03/17 Active Incontinence of urine(Confirmed) 7 Active 1surgically repaired November 2015, Dr. Sg MENDEZ 2DJD Lumbar Spine per MRI 3L3-L4 disc herniation per client report 4seen on MRI 10/2016, rec repeat imaging in October [address] Abd 09/18/16 at [facility], pending MRI 6surgically repaired July 2015 Dr. Sg MENDEZ 7urge and stress Social History Social History Type Response Tobacco Use: Pt states she q uit smoking 1 week ago. Sex Female
--- OUTSIDE RECORDS SUMMARY | 2023-03-25 08:18 | XMS_ITS | Continuity of Care Document ---
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 Name Role Phone Richardson QUIROZ, Leonora Pérez Primary Care Physician [phone] Encounter [facility] Date(s): 01/06/22 - 01/06/22 [facility] [address] [place] [address]- Encounter Diagnosis Syncope(Final) - 01/06/22 Discharge Disposition: A-D/C Home Attending Physician: Hugo Lua MD Admitting Physician: Hugo Lua MD Referring Physician: Not on Staff, Referring MD Allergies, Adverse Reactions, Alerts Substance Reaction Severity Status morphine Active gabapentin swelling Active Lyrica dysphagia Active SEROquel body swelling - all over Act tony MetFORMIN Hydrochloride ER black tarry stool Active Immunizations Given and Recorded Vaccine Date Status Refusal Reason pneumococcal 20-valent conjugate vaccine 12/26/21 Given SARS-CoV-2 mRNA ([id number]) vax 05/14/21 Given influenza virus vaccine, inactivated 02/04/21 Give n influenza virus vaccine, inactivated 1 04/19/20 Gi tonio influenza virus vaccine, inactivated 03/12/19 Give n influenza virus vaccine, inactivated 01/19/18 Give n influenza virus vaccine, inactivated 02/16/17 Give n SARS-CoV-2 (COVID-19) mRNA BNT-162b2 vac 2 10/19/20 Given SARS-CoV-2 (COVID-19) mRNA BNT-162b2 vac 09/28/20 Given pneumococcal 23-valent vaccine 03/12/19 Given tetanus/diphtheria/pertussis, acel(Tdap) 07/29/13 Given 1Early/Late Reason: Early/Late Reason: Patient Not Available/Off Unit 2? Unknown: Resend to [facility]. Resend to [facility]. Medications acetaminophen 325 mg oral tablet 650 mg, 2, tablet, By Mouth, 3 times a day, # 100 tablet, Refills 1, Tot. Refills 1, Maintenance, 10/22/21 9:23:00 EDT, Route to Pharmacy Electronically, [facility], Partial fill uponpatient request if the prescription is for a schedu... Start Date: 10/22/21 Status: Ordered Advair Diskus 500 mcg-50 mcg inhalation powder 1, puffs, Inhalation, 2 times a day, [id number], # 1 each, Refills 5, Tot. Refills 5, Maintenance, 05/15/21 9:20:00 EST, Powder, Route to Pharmacy Electronically, [id number], [facility], 162.5, cm, 05/10/21 14:47... Start Date: 05/15/21 Status: Ordered albuterol 0.083% inhalation solution 3 mL = 2.5 mg, Inhalation, Every 4 hours, PRN for wheezing, # 100 each, 2 Refills, Maintenance, 11/22/21 12:30:00 EDT, Solution, [facility], 162, cm, 11/14/21 11:01:00 EDT, Height, 86, kg, 07/23/21 0:58:00 EDT, Dry Weight Start Date: 11/22/21 Status: Ordered amitriptyline 25 mg oral tablet 25 mg, 1, tablet, By Mouth, Daily at bedtime, # 30 tablet, Refills 2, Tot. Refills 2, Maintenance, 08/30/21 12:06:00 EDT, Route to Pharmacy Electronically, [facility], Partial fill upon patient request if the prescription is for a sche... Start Date: 08/30/21 Status: Ordered Atrovent HFA 17 mcg/inh inhalation aerosol 2 puffs, Inhalation, 4 times a day, # 12.9 Gm, 5 Refills, Maintenance, 12/26/21 10:37:00 EDT, Aerosol, [facility] Partial fill upon patient request if the prescription is for a schedule II opioid drug., 162, cm, 12/26/21 10:16:00 EDT,... Start Date: 12/26/21 Status: Ordered cetirizine 10 mg oral tablet 1 tablet = 10 mg, By Mouth, Daily, # 30 tablet, 5 Refills, Maintenance, 08/28/21 9:07:00 EDT, Tablet, [facility] 162, cm, 08/22/21 9:46:00 EDT, Height, 86, kg, 07/23/21 0:58:00 EDT, Dry Weight Start Date: 08/28/21 Status: Ordered cholecalciferol 5000 intl units oral capsule 1 capsule = 125 mcg, By Mouth, Daily, with food, # 100 capsule, 2 Refills, Maintenance, 02/11/21 11:17:00 EST, Capsule, [facility]/pharmacy #[id number], Partial fill upon patient request if the prescription is for a schedule II opioid drug., 155, cm, 02/11/21 8:53... Start Date: 02/11/21 Status: Ordered clonazePAM 0.5 mg oral tablet TAKE 1 TABLET BY MOUTH TWICE A DAY NEEDED Start Date: 06/02/19 Status: Ordered cloNIDine 0.1 mg oral tablet 0.1 mg, 1, tablet, By Mouth, Daily at bedtime, # 30 tablet, Refills 0, Maintenance, 08/22/21 10:51:00 EDT, Partial fill upon patient request if the prescription is for a schedule II opioid drug. Start Date: 08/22/21 Status: Ordered clotrimazole 1% topical cream 1 application, Topically, 2 times a day, # 30 Gm, 1 Refills, Maintenance, 12/26/21 10:38:00 EDT, Cream, [facility] 1 application Topically 2 times a day, 162, cm, 12/26/21 10:16:00 EDT, Height, 86, kg, 07/23/21 0:58:00 EDT, Dry Weight Start Date: 12/26/21 Status: Ordered Disposable Bedpad Disposable Bedpad, See Instructions, # 120 each, Refills 11, Tot. Refills 11, Maintenance, 4 per day dx: N32.81, N39.46 duration: lifetime, 07/08/21 9:46:00 EDT, Supply Start Date: 07/08/21 Status: Ordered docusate-senna 50 mg-187 mg oral tablet 2 tablet, By Mouth, 2 times a day, PRN Constipation, # 100 tablet, 0 Refills, Maintenance, 10/24/2219:09:00 EDT, Tablet, [facility] Partial fill upon patient request if the prescription is for a schedule II opioid drug., 2 tablet By... Start Date: 10/23/21 Status: Ordered duloxetine 60 mg oral enteric coated capsule 2 capsule = 120 mg, By Mouth, Daily, # 60 capsule, 5 Refills, Maintenance, 11/14/21 11:41:00 EDT, Capsule, [facility] Partial fill upon patient request. NOT INCREASED DOSE. Please cancel all other Duloxetine scripts, 162, cm, 11/14/21... Start Date: 11/14/21 Status: Ordered empagliflozin 10 mg oral tablet 1 tablet = 10 mg, By Mouth, Daily in AM, # 30 tablet, 5 Refills, Maintenance, 08/28/21 9:07:00 EDT,Tablet, [facility] Partial fill upon patient request if the prescription is for a schedule II opioid drug., 162, cm, 08/22/21 9:46:00... Start Date: 08/28/21 Status: Ordered fluticasone 50 mcg/inh nasal spray See Instructions, USE 1 SPRAY IN BOTH NOSTRILS 2 TIMES A DAY, # 16 mL, 1 Refills, 07/08/21 9:44:00 EDT, [facility] 30, USE 1 SPRAY IN BOTH NOSTRILS 2 TIMES A DAY, 162.5, cm, 228:49:00 EDT, Height, 85.8, kg, 06/04/21 10:03:00 ES... Start Date: 07/08/21 Status: Ordered Hand held shower head Hand held shower head, See Instructions, # 1 each, Refills 0, Tot. Refills 0, Maintenance, Dx: severe lumbar DJD, risk of falls, 10/11/21 14:19:00 EDT, Supply Start Date: 10/11/21 Status: Ordered hydrochlorothiazide 12.5 mg oral tablet 1 tablet, By Mouth, Daily, # 30 tablet, 5 Refills, [facility], 162, cm, 11/14/21 11:01:00EDT, Height, 86, kg, 07/23/21 0:58:00 EDT, Dry Weight Start Date: 11/19/21 Status: Ordered ibuprofen 800 mg oral tablet 800 mg, 1, tablet, By Mouth, 3 times a day, PRN, # 90 tablet, Refills 1, Tot. Refills 1, Maintenance, Pain , Mild, 01/06/22 12:22:00 EDT, Route to Pharmacy Electronically, [facility],please fill 800mg instead of 600mg, 163, cm, 01/03/... Start Date: 01/06/22 Status: Ordered Insulin Syringe, BD Ultra-Fine 0.5 cc 31 G x 8 mm (5/16in) See Instructions, # 100 each, Refills 11, Tot. Refills 11, Maintenance, Dx: DM2 once daily injections, 07/08/21 9:48:00 EDT, Supply, 162.5, cm, 07/08/21 8:49:00 EDT, Height, 85.8, kg, 06/04/21 10:03:00 EST, Dry Weight Start Date: 07/08/21 Status: Ordered Januvia 100 mg oral tablet 1 tablet = 100 mg, By Mouth, Daily, # 90 tablet, 3 Refills, Maintenance, 06/18/21 21:04:00 EDT, Tablet, [facility], 162.5, cm, 06/17/21 13:04:00 EDT, Height, 85.8, kg, 06/04/21 10:03:00 EST, Dry Weight Start Date: 06/18/21 Status: Ordered Lantus 100 u/ml subcutaneous solution = 50 units, Subcutaneous Injection, Daily, # 15 mL, 2 Refills, Maintenance, 01/06/22 12:07:00 EDT, Solution, [facility], ;, 163, cm, 01/03/22 11:20:00 EDT, Height, 84, kg, 01/02/22 19:36:00 EDT, Dry Weight Start Date: 01/06/22 Status: Ordered lidocaine 5% topical film 1 patch, Topically, Daily, PRN Pain , Mild, remove after 12 hours, # 13 each, 5 Refills, Maintenance, 12/26/21 10:37:00 EDT, Film, [facility] Partial fill upon patient request if theprescription is for a schedule II opioid drug., 1 p... Start Date: 12/26/21 Status: Ordered lisinopril 20 mg oral tablet 20 mg, 1, tablet, By Mouth, Daily, # 90 tablet, Refills 3, Tot. Refills 3, Maintenance, 08/28/21 9:07:00 EDT, Route to Pharmacy Electronically, [facility], 162, cm, 08/22/21 9:46:00 EDT, Height, 86, kg, 07/23/21 0:58:00 EDT, Dry Weight Start Date: 08/28/21 Status: Ordered Melatonin 10 mg oral tablet 1 tablet = 10 mg, By Mouth, Daily at bedtime, # 30 each, 5 Refills, Maintenance, 11/14/21 11:42:00 EDT, [facility], Partial fill upon patient request if the prescription is for a schedule II opioid drug., 162, cm, 11/14/21 11:01:00 EDT... Start Date: 11/14/21 Status: Ordered mirtazapine 30 mg oral tablet 1 tablet = 30 mg, By Mouth, Daily at bedtime, Maintenance, 05/24/19 9:12:00 EST, Tablet Start Date: 05/24/19 Status: Ordered nystatin topical 842893 u/gm powder 1 application, Topically, 2 times a day, # 60 Gm, 1 Refills, Maintenance, 12/26/21 10:38:00 EDT, Powder, [facility]., Partial fill upon patient request if the prescription is for a schedule II opioid drug., 1 application Topically 2 quinton... Start Date: 12/26/21 Status: Ordered omeprazole 40 mg oral enteric coated capsule 1 capsule, By Mouth, Daily, PRN NEEDED, # 30 capsule, 2 Refills, [facility], 162, cm, 06/03/22 13:04:00 EDT, Height, 86, kg, 07/23/21 0:58:00 EDT, Dry Weight Start Date: 10/02/21 Status: Ordered oxyCODONE 5 mg oral tablet 5 mg, 1, tablet, By Mouth, 2 times a day, for 26 days, # 52 tablet, Refills 0, Tot. Refills 0, Acute 01/21/22 10:39:00 EDT, 12/26/21 10:39:00 EDT, Route to Pharmacy Electronically, [facility], Partial fill upon patient request if the p... Start Date: 12/26/21 Stop Date: 01/21/22 Status: Ordered OxyCONTIN 10 mg oral tablet, extended release 10 mg, 1, tablet, By Mouth, Every 12 hours, # 56 tablet, Refills 0, Tot. Refills 0, Maintenance, 12/23/21 17:17:00 EDT, Route to Pharmacy Electronically, [facility], Partial fill uponpatient request if the prescription is for a schedu... Start Date: 12/23/21 Stop Date: 01/20/22 Status: Ordered potassium chloride 10 mEq oral capsule, extended release 2 capsule = 20 mEq, By Mouth, Daily, do not crush or chew. with a full glass of water. with food., # 60 capsule, 0 Refills, Maintenance, 01/03/22 11:56:00 EDT, CR Capsule, [facility],Partial fill upon patient request if the pres... Start Date: 01/03/22 Stop Date: 02/02/22 Status: Ordered Senna 8.6 mg oral tablet 8.6 mg, 1, tablet, By Mouth, Daily at bedtime, # 100 tablet, Refills 11, Tot. Refills 11, Maintenance, 07/08/21 9:39:00 EDT, Route to Pharmacy Electronically, [facility], 162.5, cm, 07/08/21 8:49:00 EDT, Height, 85.8, kg, 06/04/21 10:0... Start Date: 07/08/21 Status: Ordered Tessalon Perles 100 mg oral capsule 1 capsule = 100 mg, By Mouth, 3 times a day, PRN Cough, for 14 days, # 42 capsule, 0 Refills, Acute01/17/22 11:55:00 EDT, 01/03/22 11:55:00 EDT, Capsule, [facility] Partial fill upon patient request if the prescription is for a sched... Start Date: 01/03/22 Stop Date: 01/17/22 Status: Ordered Trulicity Pen 3 mg/0.5 mL subcutaneous solution 0.5 mL = 3 mg, Subcutaneous Injection, Every week, rotate injection sites, # 2 mL, 5 Refills, Maintenance, 09/03/21 15:49:00 EDT, Solution, [facility] Partial fill upon patient request if the prescription is for a schedule II opioid d... Start Date: 09/03/21 Status: Ordered Urinary Liners Urinary Liners, See Instructions, # 180 each, Refills 11, Tot. 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 [phone] Confirmed Active Syncope and collapse Confirmed Active Tobacco dependence Confirmed Active DM2 (diabetes mellitus, type 2) Confirmed 04/03/17 Active Incontinence of urine 3 Confirmed Active 1seen on MRI 10/2016, rec repeat imaging in October [address] Abd 09/18/16 at [facility], pending MRI 3urge and stress Results Radiology Reports * Exam Date Time Procedure Performing Provider Status 01/06/22 5:04 AM Chest 2 Views Frontal and Lat Marilyn , Tom; Auth (Verified) Notes: (Chest 2 Views Frontal and Lat) Reason For Exam: Shortness of Breath, Fever;Other: RESULT: Chest 2 Views Frontal and Lat Examination: Chest performed on 01/06/2022. History: Syncopal episode. Shortness of breath. Findings: Frontal and lateral views of the chest are compared to a prior study dated 01/01/2022. The cardiac and mediastinal silhouettes are within normal limits. The lungs are clear. The osseous and soft tissue structures are unremarkable. Impression: There is no acute cardiopulmonary disease. WSN: [id number] Ordering Physician: Leonel Thomas Dictated By: Mago Allen MD Dictated Date/Time: 01/06/22 7:56 am Reviewed By: Mago Allen MD Signed By: Mago Allen MD Signed Date/Time: 01/06/22 7:56 am Transcribed By: WILVER Transcribed Date/Time: 01/06/22 7:56 am Vital Signs Most recent to oldest [Reference Range]: 1 2 3 Oxygen Saturation [94-100 %] 97 % (01/06/22 9:12 AM) 95 % (01/06/22 8:06 AM) 94 % (01/06/22 5:36 AM) Pulse Rate [55-90 bpm] 63 bpm (01/06/22 9:12 AM) 65 bpm (01/06/22 8:06 AM) 64 bpm (01/06/22 5:36 AM) Blood Pressure [90-138/55-84 mm Hg] 127/91mm Hg (01/06/22 9:12 AM) 116/85mm Hg (01/06/22 8:06 AM) 104/67mm Hg (01/06/22 5:36 AM) Respiratory Rate [16-30 br/min] 16 br/min (01/06/22 9:12 AM) 13 br/min *L* (01/06/22 8:06 AM) 16 br/min (01/06/22 5:36 AM) Temperature [96.8-100.4 DegF] 97.9 DegF (01/06/22 8:06 AM) 97.6 DegF (01/06/22 4:17 AM) 97.4 DegF (01/06/22 3:15 AM) Mode of Delivery (Oxygen) Room air (01/06/22 9:12 AM) Room air (01/06/22 8:06 AM) Room air (01/06/22 5:36 AM) Blood pressure sites Arm, left (01/06/22 9:12 AM) Arm, left (01/06/22 8:06 AM) Arm, left (01/06/22 4:17 AM) Temperature Route Oral (01/06/22 8:06 AM) Oral (01/06/22 4:17 AM) Oral (01/06/22 3:15 AM) Social History Social History Type Response Smoking Status Current every day sm oker; Type: Cigarettes; Tobacco use times per day: 1/2 ppd; entered on: 12/24/17 Sex Note * BHSP[facility]erscribe , CIS S: TRANSCRIBE Mago Allen MD: VERIFY Event Display: Result: Authored Date: [id number] Examination: Chest performed on 01/06/2022. History: Syncopal episode. Shortness of breath. Findings: Frontal and lateral views of the chest are compared to a prior study dated 01/01/2022. The cardiac and mediastinal silhouettes are within normal limits. The lungs are clear. The osseous and soft tissue structures are unremarkable. Impression: There is no acute cardiopulmonary disease. WSN: [id number] Ordering Physician: Leonel Thomas Dictated By: Mago Allen MD Dictated Date/Time: 01/06/22 7:56 am Reviewed By: Mago Allen MD Signed By: Mago Allen MD Signed Date/Time: 01/06/22 7:56 am Transcribed By: WILVER Transcribed Date/Time: 01/06/22 7:56 am Patient Care team information Personnel Name: Leonora Bai NP Address: Address: [address] [place] [address]
--- OUTSIDE RECORDS SUMMARY | 2023-03-25 08:18 | XMS_ITS | Continuity of Care Document ---
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 Name Role Phone Richardson QUIROZ, Leonora Pérez Primary Care Physician [facility] Date[facility]): 10/[facility]/19 - 11/04/19 [facility] [address] [place] [address]- [facility] Allergies, Adverse Reactions, Alerts Substance Reaction Severity [...] 12:48:00 EST, Powder, Route to Pharmacy Electronically, [id number], [id number], 158, cm, 04/26/19 9:58:00 EST, [...] tablet, 5 Refills, Maintenance, 10/06/19 7:45:00EDT, Tablet, [facility]/pharmacy #[id number], 160, cm, 09/28/19 8:58:00 EDT, Height, 86.8, kg, 07/22/19 15:13:00EDT, Dry Weight Start Date: 10/06/19 Status: Ordered atorvastatin 20 mg oral tablet 1 tablet = 20 mg, By Mouth, Daily, Maintenance, 05/24/19 9:12:00 EST, Tablet Start Date: 05/24/19 Status: Ordered capsaicin 0.025% topical cream 1 application, Topically, 3 times a day, # 45 Gm, 3 Refills, Maintenance, 11/01/19 15:25:00 EDT, Cream, [facility]/pharmacy #[id number], 1 application Topically 3 times a day, 163, cm, 11/01/19 14:40:00 EDT, Height, 80, kg, 10/29/19 0:29:00 EDT, Dry Weight Start Date: 11/01/19 Status: Ordered cetirizine 10 mg oral tablet 1 tablet = 10 mg, By Mouth, Daily, # 30 tablet, 5 Refills, Maintenance, 04/19/19 15:40:00 EST, Tablet, [facility]/pharmacy #[id number], 158, cm, 04/04/19 15:21:00 EST, Height, [...] 3 Refills, Maintenance, 09/02/19 10:23:00 EDT, Tablet, [facility]/pharmacy #[id number], PLEASE CANCEL LISINOPRIL, 160, cm, 07/22/19 15:08:00 EDT, Height, 86.8, kg, 07/22/19 15:13:00 EDT, Dry Weight Start Date: 09/02/19 Status: Ordered Insulin Syringe, BD Ultra-Fine 1 cc 31 G x 8 mm (5/16in) See Instructions, # 30 each, Refills 11, [...] 5 Refills, Maintenance, 04/28/19 16:05:00 EST, Tablet, [facility]/pharmacy #[id number], 158, cm, 04/28/19 14:51:00 EST, Height, 82, kg, 04/01/19 16:10:00 EST, Dry Weight Start Date: 04/28/19 Status: Ordered Lantus 100 u/ml subcutaneous solution = 13 units, Subcutaneous Injection, Daily, # 10 mL, 11 Refills, Maintenance, 09/05/19 14:10:00 EDT,Solution, [id number], 160, cm, 07/22/19 15:08:00 EDT, Height, 86.8, kg, 07/22/19 15:13:00 EDT, Dry Weight Start Date: 09/05/19 Status: Ordered lidocaine 5% topical film 1 patch, Topically, Daily, For chronic radicular back pain, # 30 patch, 5 Refills, Maintenance, 06/27/19 14:37:00 EDT, [facility]/pharmacy #[id number], 1 patch Topically Daily,Instr:For chronic [...] sorbian, # 120 tablet, 2 Refills, Maintenance, 11/01/19 15:24:00 EDT, Tablet, [facility]/pharmacy #[id number], 163, cm, 11/01/19 14:40:00 EDT, Height, 80, kg, 07/... Start Date: 11/01/19 Status: Ordered metFORMIN 1000 mg oral tablet 1 tablet = 1,000 mg, By Mouth, 2 times a day, # 60 tablet, 6 Refills, Maintenance, 09/12/19 14:39:00 EDT, Tablet, [facility]/pharmacy #[id number], 160, cm, 07/22/19 15:08:00 EDT, Height, [...] 2Refills, Maintenance, 10/06/19 7:45:00 EDT, EC Capsule, [facility]/pharmacy #[id number], cancel Ranitidine, 160,cm, 09/28/19 8:58:00 EDT, Height, 86.8, kg, ... Start Date: 10/06/19 Status: Ordered Pen [employer], 31 G x 5 mm BD Ultra [...] 05/30/19 18:52:00 EST, Route to Pharmacy Electronically, [facility]/pharmacy #[id number], 160, cm, 05/30/19 18:08:00 EST, Height, 88.9, kg, 05/23/19... Start Date: 05/30/19 Status: Ordered Senexon-S 2 tablet, By Mouth, Daily at bedtime, 0 Refills, Maintenance, 11/25/18 10:10:49 EDT Start Date: 11/25/18 Status: Ordered Senna 8.6 mg oral tablet 8.6 mg, 1, tablet, By Mouth, Daily at bedtime, # 100 tablet, Refills 2, Tot. Refills 2, Maintenance, 06/10/19 16:12:00 EST, Route to Pharmacy Electronically, [facility]/pharmacy #[id number], 160, cm, 06/01/19 14:08:00 EST, Height, 88.9, kg, 05/23/19 22:09:00 EST,... Start Date: 06/10/19 Status: Ordered Spiriva Respimat 60 ACT 2.5 mcg/inh inhalation aerosol 2 puffs, Inhalation, Daily, # 1 each, 5 Refills, Maintenance, 04/26/19 10:30:00 EST, [facility]/pharmacy #[id number], 158, cm, 04/26/19 9:58:00 EST, Height, 82, kg, 04/01/19 16:10:00 EST, Dry Weight Start Date: 04/26/19 Status: Ordered tiZANidine 4 mg oral tablet 4 mg, 1, tablet, By Mouth, Every 8 hours, # 21 tablet, Refills 1, Tot. Refills 1, Maintenance, 11/01/19 15:23:00 EDT, Route to Pharmacy Electronically, [facility]/pharmacy #[id number], 163, cm, 11/01/19 14:40:00 EDT, Height, 80, kg, 10/29/19 0:29:00 EDT, Dry Weight Start Date: 11/01/19 Stop Date: 11/15/19 Status: Ordered Vitamin D3 5000 intl units [...] [address] Abd 09/18/16 at [facility] [place], pending MRI 6surgically repaired July 2015 Dr. Sg MENDEZ 7urge and stress Social History Social History Type Response Tobacco Use: Pt states she q uit smoking 1 week ago. Sex Female
--- OUTSIDE RECORDS SUMMARY | 2023-03-25 08:18 | XMS_ITS | Continuity of Care Document ---
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 Role Phone Richardson QUIROZ, Leonora Pérez Primary Care Physician [facility] Date[facility]s): 10/23/21 - 11/22/21 [facility] [address] [place], [place] [address] Allergies, Adverse Reactions, Alerts Substance Reaction Severity Status morphine Active gabapentin swelling Active Lyrica dysphagia Active SEROquel body swelling - all over Act tony MetFORMIN Hydrochloride ER black tarry stool Active Immunizations Given and Recorded Vaccine Date Status Refusal Reason SARS-CoV-2 mRNA ([id number]) vax 05/14/21 Given influenza virus vaccine, inactivated [...] 10/22/21 9:23:00 EDT, Route to Pharmacy Electronically, [facility], Partial fill uponpatient request if the prescription is for a schedu... Start Date: 10/22/21 Status: Ordered Advair Diskus 500 mcg-50 mcg inhalation powder 1, puffs, Inhalation, 2 times a day, [id number], # 1 each, Refills 5, Tot. Refills 5, Maintenance, 05/15/21 9:20:00 EST, Powder, Route to Pharmacy Electronically, [id number], [facility], 162.5, cm, 05/10/21 14:47... Start Date: 05/15/21 Status: Ordered albuterol 0.083% inhalation solution 3 mL = 2.5 mg, Inhalation, Every 4 hours, PRN for wheezing, # 100 each, 2 Refills, Maintenance, 11/22/21 12:30:00 EDT, Solution, [facility], 162, cm, 11/14/21 11:01:00 EDT, Height, 86, kg, 07/23/21 0:58:00 EDT, Dry Weight Start Date: 11/22/21 Status: Ordered amitriptyline 25 mg oral tablet 25 mg, 1, tablet, By Mouth, Daily at bedtime, # 30 tablet, Refills 2, Tot. Refills 2, Maintenance, 08/30/21 12:06:00 EDT, Route to Pharmacy Electronically, [facility], Partial fill upon patient request if the prescription is for a sche... Start Date: 08/30/21 Status: Ordered CANCEL ATORVASTATIN CANCEL ATORVASTATIN, See Instructions, # 1 each, Refills 0, Tot. Refills 0, Maintenance, please cancel all atorvastatin script, 11/14/21 11:39:00 EDT, Supply, 162, cm, 11/14/21 11:01:00 EDT, Height, 86, kg, 07/23/21 0:58:00 EDT, Dry Weight Start Date: 11/14/21 Status: Ordered cetirizine 10 mg oral tablet 1 tablet = 10 mg, By Mouth, Daily, # 30 tablet, 5 Refills, Maintenance, 08/28/21 9:07:00 EDT, Tablet, [facility] 162, cm, 08/22/21 9:46:00 EDT, Height, 86, kg, 07/23/21 0:58:00 EDT, Dry Weight Start Date: 08/28/21 Status: Ordered cholecalciferol 5000 intl units oral capsule 1 capsule = 125 mcg, By Mouth, Daily, with food, # 100 capsule, 2 Refills, Maintenance, 02/11/21 11:17:00 EST, Capsule, [facility]/pharmacy #[id number], Partial fill upon patient request if [...] day, # 30 Gm, 1 Refills, Maintenance, 07/08/21 9:45:00 EDT, Cream, [facility]., PLEASE CANCEL ESTRADIOL VAGINAL CREAM, 1 application Topically 2 times a day, 162.5, cm, 07/08/21 8:49:00 EDT, Height, 8... Start Date: 07/08/21 Status: Ordered Disposable Bedpad Disposable Bedpad, See Instructions, # 120 each, Refills 11, Tot. Refills 11, Maintenance, 4 per day dx: N32.81, N39.46 duration: lifetime, 07/08/21 9:46:00 EDT, Supply Start Date: 07/08/21 Status: Ordered docusate-senna 50 mg-187 mg oral tablet 2 tablet, By Mouth, 2 times a day, PRN Constipation, # 100 tablet, 0 Refills, Maintenance, 10/24/2219:09:00 EDT, Tablet, [facility] Partial fill upon patient request if the prescription is for a schedule II opioid drug., 2 tablet By... Start Date: 10/23/21 Status: Ordered duloxetine 60 mg oral enteric coated capsule 2 capsule = 120 mg, By Mouth, Daily, # 60 capsule, 5 Refills, Maintenance, 11/14/21 11:41:00 EDT, Capsule, [facility] Partial fill upon patient request. NOT INCREASED DOSE. Please cancel all other Duloxetine scripts, 162, cm, 11/14/21... Start Date: 11/14/21 Status: Ordered empagliflozin 10 mg oral tablet 1 tablet = 10 mg, By Mouth, Daily in AM, # 30 tablet, 5 Refills, Maintenance, 08/28/21 9:07:00 EDT,Tablet, [facility] Partial fill upon patient request if the prescription is for a schedule II opioid drug., 162, cm, 08/22/21 9:46:00... Start Date: 08/28/21 Status: Ordered fluticasone 50 mcg/inh nasal spray See Instructions, USE 1 SPRAY IN BOTH NOSTRILS 2 TIMES A DAY, # 16 mL, 1 Refills, 07/08/21 9:44:00 EDT, [facility] 30, USE 1 SPRAY IN BOTH NOSTRILS 2 TIMES A DAY, 162.5, cm, :49:00 EDT, Height, 85.8, kg, 06/04/21 10:03:00 ES... Start Date: 07/08/21 Status: Ordered Hand held shower head Hand held shower head, See Instructions, # 1 each, Refills 0, Tot. Refills 0, Maintenance, Dx: severe lumbar DJD, risk of falls, 10/11/21 14:19:00 EDT, Supply Start Date: 10/11/21 Status: Ordered hydrochlorothiazide 12.5 mg oral tablet 1 tablet, By Mouth, Daily, # 30 tablet, 5 Refills, [facility], 162, cm, 11/14/21 11:01:00EDT, Height, 86, kg, 07/23/21 0:58:00 EDT, Dry Weight Start Date: 11/19/21 Status: Ordered ibuprofen 800 mg oral tablet 800 mg, 1, tablet, By Mouth, 3 times a day, PRN, # 90 tablet, Refills 1, Tot. Refills 1, Maintenance, Pain , Mild, 10/31/21 13:59:00 EDT, Route to Pharmacy Electronically, [facility],please fill 800mg instead of 600mg, 162, cm, ... Start Date: 10/31/21 Status: Ordered Insulin Syringe, BD Ultra-Fine 0.5 cc 31 G x 8 mm (516in) See Instructions, # 100 each, Refills 11, Tot. Refills 11, Maintenance, Dx: DM2 once daily injections, 07/08/21 9:48:00 EDT, Supply, 162.5, cm, 07/08/21 8:49:00 EDT, Height, 85.8, kg, 06/04/21 10:03:00 EST, Dry Weight Start Date: 07/08/21 Status: Ordered Januvia 100 mg oral tablet 1 tablet = 100 mg, By Mouth, Daily, # 90 tablet, 3 Refills, Maintenance, 06/18/21 21:04:00 EDT, Tablet, [facility], 162.5, cm, 06/17/21 13:04:00 EDT, Height, 85.8, kg, 06/04/21 10:03:00 EST, Dry Weight Start Date: 06/18/21 Status: Ordered Lantus 100 u/ml subcutaneous solution = 50 units, Subcutaneous Injection, Daily, # 15 mL, 5 Refills, Maintenance, 07/08/21 9:38:00 EDT, Solution, [facility], ;, 162.5, cm, 07/08/21 8:49:00 EDT, Height, 85.8, kg, 06/04/21 10:03:00 EST, Dry Weight Start Date: 07/08/21 Status: Ordered lisinopril 20 mg oral tablet 20 mg, 1, tablet, By Mouth, Daily, # 90 tablet, Refills 3, Tot. Refills 3, Maintenance, 08/28/21 9:07:00 EDT, Route to Pharmacy Electronically, [facility], 162, cm, 08/22/21 9:46:00 EDT, Height, 86, kg, 07/23/21 0:58:00 EDT, Dry Weight Start Date: 08/28/21 Status: Ordered Melatonin 10 mg oral tablet 1 tablet = 10 mg, By Mouth, Daily at bedtime, # 30 each, 5 Refills, Maintenance, 11/14/21 11:42:00 EDT, [facility], Partial fill upon patient request if the prescription is for a schedule II opioid drug., 162, cm, 11/14/21 11:01:00 EDT... Start Date: 11/14/21 Status: Ordered mirtazapine 30 mg oral tablet 1 tablet = 30 mg, By Mouth, Daily at bedtime, Maintenance, 05/24/19 9:12:00 EST, Tablet Start Date: 05/24/19 Status: Ordered omeprazole 40 mg oral enteric coated capsule 1 capsule, By Mouth, Daily, PRN NEEDED, # 30 capsule, 2 Refills, [facility], 162, cm, 09/06/21 13:04:00 EDT, Height, 86, kg, 07/23/21 0:58:00 EDT, Dry Weight Start Date: 10/02/21 Status: Ordered OxyCONTIN 15 mg oral tablet, extended release 1 tablet = 15 mg, By Mouth, Every 12 hours, # 56 tablet, 0 Refills, Maintenance, 11/26/21 8:00:00 EDT, ER Tablet, [facility], Partial fill upon patient request if the prescription is for a schedule II opioid drug. For fill 11/26/21, dos... Start Date: 11/26/21 Stop Date: 12/24/21 Status: Ordered OxyCONTIN 30 mg oral tablet, extended release 1 tablet = 30 mg, By Mouth, Every 12 hours, # 56 tablet, 0 Refills, Maintenance, 10/29/21 17:34:00 EDT, ER Tablet, [facility]/pharmacy #[id number], Partial fill upon patient request if the prescription is for a schedule II opioid drug. ON contract at [facility], 30mg E... Start Date: 10/29/21 Stop Date: 11/26/21 Status: Ordered Senna 8.6 mg oral tablet 8.6 mg, 1, tablet, By Mouth, Daily at bedtime, # 100 tablet, Refills 11, Tot. Refills 11, Maintenance, 07/08/21 9:39:00 EDT, Route to Pharmacy Electronically, [facility], 162.5, cm, 07/08/21 8:49:00 EDT, Height, 85.8, kg, 06/04/21 10:0... Start Date: 07/08/21 Status: Ordered Tessalon Perles 100 mg oral capsule 1 capsule = 100 mg, By Mouth, 3 times a day, for 10 days, # 30 capsule, 0 Refills, Acute 12/02/21 13:25:00 EDT, 11/22/21 13:25:00 EDT, Capsule, [facility], Partial fill upon patient request if the prescription is for a schedule II opio... Start Date: 11/22/21 Stop Date: 12/02/21 Status: Ordered Trulicity Pen 3 mg/0.5 mL subcutaneous solution 0.5 mL = 3 mg, Subcutaneous Injection, Every week, rotate injection sites, # 2 mL, 5 Refills, Maintenance, 09/03/21 15:49:00 EDT, Solution, [facility], Partial fill upon patient request if the prescription is for a schedule II opioid d... Start Date: 09/03/21 Status: Ordered Urinary Liners Urinary Liners, See Instructions, # 180 each, Refills 11, Tot. Refills 11, Maintenance, 6 per day dx: N32.81, N39.46 duration:lifetime, 07/08/21 9:46:00 EDT, Supply Start Date: 07/08/21 Status: Ordered Problem List Condition Effective Dates Status Health Status Inform ant Carpal tunnel syndrome, right(Confirmed) Active Anxiety(Confirmed) Active Chronic low back pain(Confirmed) Active Pancreatic lesion(Confirmed) 1 Active Hypertension(Confirmed) Active Fibromyalgia(Confirmed) Active Food insecurity(Confirmed) Active Hyperglycemia due to diabete s mellitus(Confirmed) Active Hyperlipidemia(Confirmed) Active Hypokalemia(Confirmed) Active Lesion of liver(Confirmed) 2 Active Hyperactivity of bladder(Confirmed) Active Facet syndrome, lumbar(Confirmed) Active Lumbar radiculopathy(Confirmed) Active Major depressive disorder(Confirmed) Active Obesity(Confirmed) Active MARILIN on CPAP(Confirmed) Active Panic attacks(Confirmed) Active 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
--- OUTSIDE RECORDS SUMMARY | 2023-03-25 08:18 | XMS_ITS | Continuity of Care Document ---
Author Name Unknown Organization [facility] Address [address] [place] [address]- Care Team Providers Care Sales And Marketing Director Name Role Phone Richardson QUIROZ, Leonora Pérez Primary Care Physician [phone] Encounter [facility] Date(s): 07/01/21 - 07/31/21 [facility] [address] [place] [address]- Allergies, Adverse Reactions, Alerts Substance Reaction Severity Status morphine Active gabapentin swelling Active MetFORMIN Hydrochloride ER black tarry stool Active Lyrica dysphagia Active SEROquel body swelling - all over Act tony Immunizations Given and Recorded Vaccine Date Status Refusal Reason SARS-CoV-2 mRNA ([id number]) vax 05/14/21 Given influenza virus vaccine, inactivated [...] tablet, Refills 1, Tot. Refills 1, Maintenance, 07/18/21 15:15:00 EDT, Route to Pharmacy Electronically, [facility] Partial fill upon patient request if the prescription is for a sched... Start Date: 07/18/21 Status: Ordered Advair Diskus 500 mcg-50 mcg inhalation powder 1, puffs, Inhalation, 2 times a day, j45.909, # 1 each, Refills 5, Tot. Refills 5, Maintenance, 05/15/21 9:20:00 EST, Powder, Route to Pharmacy Electronically, [id number], [facility]., 162.5, cm, 05/10/21 14:47... Start Date: 05/15/21 Status: Ordered albuterol 0.083% inhalation solution 3 mL = 2.5 mg, Inhalation, Every 4 hours, PRN for wheezing, # 100 each, 2 Refills, Maintenance, 05/15/21 9:30:00 EST, Solution, [facility]., 162.5, cm, 05/10/21 14:47:00 EST, Height, 90.9, kg, 02/02/21 5:59:00 EDT, Dry Weight Start Date: 05/15/21 Status: Ordered amitriptyline 75 mg oral tablet 1 tablet = 75 mg, By Mouth, Daily at bedtime, # 90 tablet, 1 Refills, Maintenance, 05/07/21 10:21:00 EST, Tablet, [facility]., Partial fill upon patient request if the prescription is for a schedule II opioid drug., 162.5, cm, 03/22/21... Start Date: 05/07/21 Status: Ordered atorvastatin 40 mg oral tablet 1 tablet = 40 mg, By Mouth, Daily, # 90 tablet, 3 Refills, Maintenance, 07/08/21 9:47:00 EDT, Tablet, [facility]., Partial fill upon patient request if the prescription is for a schedule II opioid drug., 162.5, cm, 07/08/21 8:49:00 EDT,... Start Date: 07/08/21 Status: Ordered cetirizine 10 mg oral tablet 1 tablet = 10 mg, By Mouth, Daily, # 30 tablet, 5 Refills, Maintenance, 07/08/21 9:44:00 EDT, Tablet, [facility] 162.5, cm, 07/08/21 8:49:00 EDT, Height, 85.8, kg, 06/04/21 10:03:00 EST, Dry Weight Start Date: 07/08/21 Status: Ordered cholecalciferol 5000 intl units oral capsule 1 capsule = 125 mcg, By Mouth, Daily, with food, # 100 capsule, 2 Refills, Maintenance, 02/11/21 11:17:00 EST, Capsule, [facility]/pharmacy #[id number], Partial fill upon patient [...] 1 Refills, Maintenance, 07/08/21 9:45:00 EDT, Cream, [facility]., PLEASE CANCEL ESTRADIOL VAGINAL CREAM, 1 application Topically 2 times a day, 162.5, cm, 07/08/21 8:49:00 EDT, Height, 8... Start Date: 07/08/21 Status: Ordered cyclobenzaprine 10 mg oral tablet 10 mg, 1, tablet, By Mouth, 3 times a day, PRN, Refills 0, Maintenance, Spasm, 07/24/21 15:31:00 EDT, Partial fill upon patient request if the prescription is for a schedule II opioid drug. Start Date: 07/24/21 Status: Ordered Disposable Bedpad Disposable Bedpad, See Instructions, # 120 each, Refills 11, Tot. Refills 11, Maintenance, 4 per day dx: N32.81, N39.46 duration: lifetime, 07/08/21 9:46:00 EDT, Supply Start Date: 07/08/21 Status: Ordered Docusate/Senna Tablet 1 tablet, By Mouth, 2 times a day, PRN Constipation, 0 Refills, Maintenance, 07/24/21 15:31:00 EDT,Tablet, Partial fill upon patient request if the prescription is for a schedule II opioid drug. Start Date: 07/24/21 Status: Ordered duloxetine 60 mg oral enteric coated capsule 2 capsule = 120 mg, By Mouth, Daily, # 60 capsule, 5 Refills, Maintenance, 02/18/21 15:09:00 EST, Capsule, [facility]/pharmacy #[id number], Partial fill upon patient request. NOT INCREASED DOSE, 155, cm, 02/18/2114:54:00 EST, Height, 90.9, kg, 02/02/21 5:59:00 ED... Start Date: 02/18/21 Status: Ordered empagliflozin 10 mg oral tablet 1 tablet = 10 mg, By Mouth, Daily in AM, # 30 tablet, 5 Refills, Maintenance, 07/08/21 9:43:00 EDT,Tablet, [facility], Partial fill upon patient request if the prescription is for a schedule II opioid drug., 162.5, cm, 07/08/21 8:49:0... Start Date: 07/08/21 Status: Ordered fluticasone 50 mcg/inh nasal spray See Instructions, USE 1 SPRAY IN BOTH NOSTRILS 2 TIMES A DAY, # 16 mL, 1 Refills, 07/08/21 9:44:00 EDT, [facility] 30, USE 1 SPRAY IN BOTH NOSTRILS 2 TIMES A DAY, 162.5, cm, :49:00 EDT, Height, 85.8, kg, 06/04/21 10:03:00 ES... Start Date: 07/08/21 Status: Ordered hydrochlorothiazide 12.5 mg oral tablet 1 tablet = 12.5 mg, By Mouth, Daily, TAKE 1 TABLET BY MOUTH EVERY DAY, # 30 capsule, 2 Refills, Maintenance, 05/15/21 9:20:00 EST, [facility] 162.5, cm, 05/10/21 14:47:00 EST, Height, 90.9, kg, 02/02/21 5:59:00 EDT, Dry Weight Start Date: 05/15/21 Status: Ordered Insulin Syringe, BD Ultra-Fine 0.5 [...] 3 Refills, Maintenance, 06/18/21 21:04:00 EDT, Tablet, [facility] 162.5, cm, 06/17/21 13:04:00 EDT, Height, 85.8, kg, 06/04/21 10:03:00 EST, Dry Weight Start Date: 06/18/21 Status: Ordered Lantus 100 u/ml subcutaneous solution = 50 units, Subcutaneous Injection, Daily, # 15 mL, 5 Refills, Maintenance, 07/08/21 9:38:00 EDT, Solution, [facility] ;, 162.5, cm, 07/08/21 8:49:00 EDT, Height, 85.8, kg, 06/04/21 10:03:00 EST, Dry Weight Start Date: 07/08/21 Status: Ordered lisinopril 20 mg oral tablet 20 mg, 1, tablet, By Mouth, Daily, # 90 tablet, Refills 3, Tot. Refills 3, Maintenance, 04/12/21 13:24:00 EST, Route to Pharmacy Electronically, [facility]/pharmacy #[id number], 162.5, cm, 03/22/21 14:58:00 EST, Height, 90.9, kg, 02/02/21 5:59:00 EDT, Dry Weight Start Date: 04/12/21 Status: Ordered meloxicam 7.5 mg oral tablet 1 tablet = 7.5 mg, By Mouth, Daily, # 30 tablet, 1 Refills, Maintenance, 06/24/21 16:30:00 EDT, Tablet, [facility] Partial fill upon patient request if the prescription is for a schedule II opioid drug., 162.5, cm, 06/24/21 15:35:00 E... Start Date: 06/24/21 Status: Ordered MiraLax Powder 1 pack/packet = 17 Gm, By Mouth, Daily, PRN Constipation, 0 Refills, Maintenance, 07/24/21 15:32:00EDT, Powder, Partial fill upon patient request if the prescription is for a schedule II opioid drug. Start Date: 07/24/21 Status: Ordered mirtazapine 30 mg oral tablet 1 tablet = 30 mg, By Mouth, Daily at bedtime, Maintenance, 05/24/19 9:12:00 EST, Tablet Start Date: 05/24/19 Status: Ordered omeprazole 40 mg oral enteric coated capsule 1 capsule = 40 mg, By Mouth, Daily, PRN Dyspepsia, # 90 capsule, 0 Refills, Maintenance, 05/09/21 10:45:00 EST, EC Capsule, [facility], 162.5, cm, 03/22/21 14:58:00 EST, Height, 90.9,kg, 02/02/21 5:59:00 EDT, Dry Weight Start Date: 05/09/21 Status: Ordered prazosin 2 mg oral capsule See Instructions, 0 Refills, Maintenance, 03/14/21 10:48:00 EST, Partial fill upon patient request if the prescription is for a schedule II opioid drug. Start Date: 03/14/21 Status: Ordered Robitussin DM Liquid 10 mL, By Mouth, Every 4 hours, PRN Cough, 0 Refills, Maintenance, 07/24/21 15:32:00 EDT, Syrup, Partial fill upon patient request if the prescription is for a schedule II opioid drug. Start Date: 07/24/21 Status: Ordered Senna 8.6 mg oral tablet 8.6 mg, 1, tablet, By Mouth, Daily at bedtime, # 100 tablet, Refills 11, Tot. Refills 11, Maintenance, 07/08/21 9:39:00 EDT, Route to Pharmacy Electronically, [facility], 162.5, cm, 07/08/21 8:49:00 EDT, Height, 85.8, kg, 06/04/21 10:0... Start Date: 07/08/21 Status: Ordered tiZANidine 4 mg oral tablet 4 mg, 1, tablet, By Mouth, Every 8 hours, PRN, # 84 tablet, Refills 1, Tot. Refills 1, Maintenance,Spasm, 06/24/21 19:16:00 EDT, Route to Pharmacy Electronically, [facility] 162.5, cm, 06/24/21 15:35:00 EDT, Height, 85.8, kg, ... Start Date: 06/24/21 Stop Date: 08/19/21 Status: Ordered topiramate 25 mg oral tablet 2 tablet = 50 mg, By Mouth, Daily, For nerve pain and headaches, # 60 tablet, 1 Refills, Maintenance, 07/01/21 15:05:00 EDT, Tablet, [facility], Partial fill upon patient request if the prescription is for a schedule II opioid drug., 1... Start Date: 07/01/21 Status: Ordered Trulicity Pen 1.5 mg/0.5 mL subcutaneous solution 0.5 mL = 1.5 mg, Subcutaneous Injection, Every week, # 2.5 mL, 11 Refills, Maintenance, 04/30/21 12:00:00 EST, Solution, [facility], Partial fill upon patient request if the prescription is for a schedule II opioid drug., 162.5, cm, 12... 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
--- OUTSIDE RECORDS SUMMARY | 2023-03-25 08:18 | XMS_ITS | Continuity of Care Document ---
Author Name Unknown Organization [facility] Address [address] [place] [id number] Care Team Providers Care Beauty Shop Manager Name Role Phone Richardson QUIROZ, Leonora Pérez Primary Care Physician Encounter [facility] Date(s): 04/11/19 - 05/28/19 [facility] [address] [place] [id number]- [facility] Attending Physician: Silviano Zurita MD Admitting Physician: Silviano Zurita MD Allergies, Adverse Reactions, Alerts Substance Reaction [...] 12:48:00 EST, Powder, Route to Pharmacy Electronically, [id number], [facility]/pharmacy #[id number], 158, cm, 04/26/19 9:58:00 EST, H... [...] 5 Refills, Maintenance, 04/19/19 15:40:00 EST, Tablet, [facility]/pharmacy #[id number], 158, cm, 04/04/19 15:21:00 EST, [...] Dry Weight Start Date: 04/04/19 Status: Ordered duloxetine 60 mg oral enteric coated capsule TAKE 1 CAPSULE BY MOUTH EVERY DAY Start Date: 10/29/17 Status: Ordered fluticasone 50 mcg/inh nasal spray See Instructions, # 16 mL, Refills 5 Tot. Refills 5, USE 1 SPRAY IN BOTH NOSTRILS DAILY, [facility]/pharmacy #[id number] Start Date: 12/01/18 Status: Ordered glipiZIDE 10 mg oral tablet, [...] 5 Refills, Maintenance, 04/28/19 16:05:00 EST, Tablet, [facility]/pharmacy #[id number], 158, cm, 04/28/19 14:51:00 EST, Height, 82, kg, 04/01/19 16:10:00 EST, Dry Weight Start Date: 04/28/19 Status: Ordered lisinopril 10 mg oral tablet 10 mg, 1, tablet, By Mouth, Daily, # 90 tablet, Refills 3, Tot. Refills 3, Maintenance, 05/08/19 20:27:00 EST, Route to Pharmacy Electronically, [facility]/pharmacy #[id number], to replace 2.5mg dose, 158, cm, [...] not to exceed 3000 mg/day. instructions in tajik, # 120 tablet, 2 Refills, Maintenance, 05/04/19 9:35:00 EST, Tablet, [facility]/pharmacy #[id number], 158, cm, 04/28/19 14:51:00 EST, Height, 82, kg, 2... Start Date: 05/04/19 Status: Ordered metFORMIN 750 mg oral tablet, extended release 1 tablet = 750 mg, By Mouth, Daily, # 30 tablet, 6 Refills, Maintenance, 04/04/19 16:29:00 EST, ER Tablet, [facility]/pharmacy #[id number], 158, cm, 04/04/19 15:21:00 EST, Height, 82, kg, 04/01/19 16:10:00 EST, Dry Weight Start Date: 04/04/19 Status: Ordered mirtazapine 30 mg oral tablet 1 tablet = 30 mg, By Mouth, Daily at bedtime, Maintenance, 05/24/19 9:12:00 EST, Tablet Start Date: 05/24/19 Status: Ordered oxyCODONE 10 mg oral tablet 1 tablet = 10 mg, By Mouth, 2 times a day, PRN pain, for 28 days, on contract at [facility]., # 56 tablet, 0 Refills, Acute 06/01/19 9:36:00 EST, 05/04/19 9:36:00 EST, [facility]/pharmacy #[id number], Partial fill uponpatient request, 158, cm, 04/28/19 14:51:00 EST, He... Start Date: 05/04/19 Stop Date: 06/01/19 Status: Ordered raNITIdine 300 mg oral tablet See Instructions, # 30 tablet, Refills 2 Tot. Refills 2, TAKE 1 TABLET BY MOUTH EVERYDAY AT BEDTIME, [facility]/pharmacy #[id number] Start Date: 01/27/19 Status: Ordered Senexon-S 2 tablet, By Mouth, Daily at bedtime, 0 Refills, Maintenance, 11/25/18 10:10:49 EDT Start Date: 11/25/18 Status: Ordered senna 187 mg oral tablet 1 tablet = 8.6 mg, By Mouth, Daily at bedtime, PRN as needed for constipation, # 100 tablet, 5 Refills, Maintenance, 05/04/19 9:35:00 EST, [facility]/pharmacy #[id number], 158, cm, 04/28/19 14:51:00 EST, Height, 82, kg, 04/01/19 16:10:00 EST, Dry Weight Start Date: 05/04/19 Status: Ordered Spiriva Respimat 60 ACT 2.5 mcg/inh inhalation aerosol 2 puffs, Inhalation, Daily, # 1 each, 5 Refills, Maintenance, 04/26/19 10:30:00 EST, [facility]pharmacy #[id number], 158, cm, 04/26/19 9:58:00 EST, Height, 82, kg, 04/01/19 16:10:00 EST, Dry Weight Start Date: 04/26/19 Status: Ordered Vitamin D3 5000 intl units [...] on CPAP(Confirmed) Active Panic attacks(Confirmed) Active *BHN/BHCP/Efrem Macdonald-[phone]/[facility], active care coordination(Confirmed) Active Acute meniscal tear of right knee(Confirmed) 6 06/2015 Active Tobacco dependence(Confirmed) Active DM2 (diabetes mellitus, type 2)(Confirmed) 04/03/17 Active Incontinence of urine(Confirmed) 7 Active 1surgically repaired November 2015, Dr. Sg MENDEZ 2DJD Lumbar Spine per MRI 3L3-L4 disc herniation per client report 4seen on MRI 10/2016, rec repeat imaging in October [address] Abd 09/18/16 at [facility], pending MRI 6surgically repaired July 2015 Dr. Sg MENDEZ 7urge and stress Social History Social History Type Response Tobacco Use: Pt states she q uit smoking 1 week ago. Sex Female
--- OUTSIDE RECORDS SUMMARY | 2023-03-25 08:18 | XMS_ITS | Continuity of Care Document ---
Author Name Unknown Organization [facility] Address [address] [place] [address]- Care Team Providers Care Programming Equipment Operator Name Role Phone Aaron GERARDO, Pura Mahajan Primary Care Physician Encounter [facility] [place] Date(s): 01/16/23 - 02/15/23 [facility] [address] [place] [address]- Allergies, Adverse Reactions, Alerts Substance Reaction Severity Status morphine Active gabapentin swelling Active Lyrica dysphagia Active SEROquel body swelling - all over Act tony MetFORMIN Hydrochloride ER black tarry stool Active Immunizations Given and Recorded Vaccine Date Status Refusal Reason [id number] 12y+ bivalent booster vax 01/30/22 Given influenza virus vaccine, inactivated 01/30/22 Give n influenza virus vaccine, inactivated 02/04/21 Give n influenza virus vaccine, inactivated 1 04/19/20 Gi tonio influenza virus vaccine, inactivated 03/12/19 Give n influenza virus vaccine, inactivated 01/19/18 Give n influenza virus vaccine, inactivated 02/16/17 Give n pneumococcal 20-valent conjugate vaccine 12/26/21 Given SARS-CoV-2 mRNA ([id number]) vax 05/14/21 Given SARS-CoV-2 (COVID-19) mRNA BNT-162b2 [...] 09/25/22 17:00:00 EDT, Route to Pharmacy Electronically, [facility], Partial fill upon patient request if the prescription is for a sched... Start Date: 09/25/22 Status: Ordered Advair Diskus 500 mcg-50 mcg inhalation powder 1, inhalation, Inhalation, 2 times a day, rinse mouth and throat after use, # 60 each, Refills 11, Tot. Refills 11, Maintenance, 09/25/22 17:00:00 EDT, Inhaler, Route to Pharmacy Electronically, [id number], [facility]-... Start Date: 09/25/22 Status: Ordered albuterol 0.083% inhalation solution 3 mL = 2.5 mg, Neb, Every 4 hours, PRN Wheezing/Shortness of Breath, # 100 each, 11 Refills, Maintenance, 12/26/22 8:14:00 EDT, Inhalation Solution, [facility], Partial fill upon patient request if the prescription is for a schedule II... Start Date: 12/26/22 Status: Ordered All Day Allergy 10 mg oral tablet 1 tablet, By Mouth, Daily, # 90 tablet, 3 Refills, Maintenance, 11/20/22 16:48:00 EDT, [facility], 163, cm, 11/20/22 16:00:00 EDT, Height, 83, kg, 02/11/22 19:19:00 EST, Dry Weight Start Date: 11/20/22 Status: Ordered amLODIPine 5 mg oral tablet 5 mg, 1, tablet, By Mouth, Daily, # 90 tablet, Refills 3, Tot. Refills 3, Maintenance, 04/29/22 11:56:00 EST, Route to Pharmacy Electronically, [facility], Partial fill upon patient request if the prescription is for a schedule II opio... Start Date: 04/29/22 Status: Ordered atorvastatin 40 mg oral tablet 1 tablet = 40 mg, By Mouth, Daily, # 90 tablet, 3 Refills, Maintenance, 09/25/22 16:58:00 EDT, Tablet, [facility] Partial fill upon patient request if the prescription is for a schedule II opioid drug., 163, cm, 09/25/22 16:20:00 EDT,... Start Date: 09/25/22 Status: Ordered clonazePAM 0.5 mg oral tablet via psychiatry A Lara, 0 Refills, Maintenance, 01/19/23 21:19:00 EDT, Partial fill upon patient request if the prescription is for a schedule II opioid drug. Start Date: 01/19/23 Status: Ordered cloNIDine 0.3 mg oral tablet via psychiatry A Lara, 0 Refills, Maintenance, 01/19/23 21:19:00 EDT, Partial fill upon patient request if the prescription is for a schedule II opioid drug. Start Date: 01/19/23 Status: Ordered clotrimazole 1% topical cream See Instructions, APPLY TOPICALLY TO AFFECTED AREA TWO TIMES A DAY FOR TWO WEEKS, # 30 Gm, 2 Refills, Maintenance, 12/26/22 8:13:00 EDT, [facility]., 15, APPLY TOPICALLY TO AFFECTED AREA TWO TIMES A DAY FOR TWO WEEKS, 163, cm, ... Start Date: 12/26/22 Status: Ordered docusate-senna 50 mg-187 mg oral tablet 2 tablet, By Mouth, 2 times a day, PRN Constipation, # 100 tablet, 11 Refills, Maintenance, 08/14/22 16:57:00 EDT, Tablet, [facility]., Partial fill upon patient request if the prescription is for a schedule II opioid drug., 2 tablet By... Start Date: 08/14/22 Status: Ordered duloxetine 20 mg oral enteric coated capsule via psychiatry A Lara, 0 Refills, Maintenance, 01/19/23 21:19:00 EDT, Partial fill upon patient request if the prescription is for a schedule II opioid drug. Start Date: 01/19/23 Status: Ordered empagliflozin 10 mg oral tablet 1 tablet = 10 mg, By Mouth, Daily in AM, # 90 tablet, 3 Refills, Maintenance, 09/25/22 17:01:00 EDT, Tablet, [facility], Partial fill upon patient request if the prescription is for aschedule II opioid drug., 163, cm, 09/25/22 16:20:0... Start Date: 09/25/22 Status: Ordered ibuprofen 800 mg oral tablet 1, tablet, By Mouth, 3 times a day, PRN, # 90 tablet, Refills 1, Tot. Refills 1, Maintenance, NEEDED FOR PAIN, 10/22/22 15:19:00 EDT, Route to Pharmacy Electronically, [facility], 163, cm, 09/25/22 16:20:00 EDT, Height, 83, kg, 11/0... Start Date: 10/22/22 Status: Ordered Januvia 100 mg oral tablet 1 tablet, By Mouth, Daily, # 30 tablet, 11 Refills, Maintenance, 11/26/22 10:02:00 EDT, [facility], 163, cm, 11/20/22 16:00:00 EDT, Height, 83, kg, 02/11/22 19:19:00 EST, Dry Weight Start Date: 11/26/22 Status: Ordered lidocaine 5% topical film 1 patch, Topically, Daily, PRN Pain , Mild, remove after 12 hours, # 13 each, 5 Refills, Maintenance, 09/25/22 16:59:00 EDT, Film, [facility], Partial fill upon patient request if theprescription is for a schedule II opioid drug., 1 p... Start Date: 09/25/22 Status: Ordered lisinopril 20 mg oral tablet 20 mg, 1, tablet, By Mouth, Daily, # 90 tablet, Refills 3, Tot. Refills 3, Maintenance, 11/20/22 16:48:00 EDT, Route to Pharmacy Electronically, [facility], 163, cm, 11/20/22 16:00:00EDT, Height, 83, kg, 02/11/22 19:19:00 EST, Dry Weight Start Date: 11/20/22 Status: Ordered mirtazapine 30 mg oral tablet 1 tablet = 30 mg, By Mouth, Daily at bedtime, # 90 tablet, 1 Refills, Maintenance, 09/25/22 17:00:00 EDT, Tablet, [facility] Partial fill upon patient request if the prescription is for a schedule II opioid drug., 163, cm, 09/25/22 16... Start Date: 09/25/22 Status: Ordered omeprazole 40 mg oral enteric coated capsule 1 capsule, By Mouth, Daily, PRN NEEDED, # 90 capsule, 1 Refills, Maintenance, 11/25/22 10:53:00 EDT, [facility], 163, cm, 11/20/22 16:00:00 EDT, Height, 83, kg, 02/11/22 19:19:00 EST, Dry Weight Start Date: 11/25/22 Status: Ordered oxyCODONE 15 mg oral tablet 1 tablet = 15 mg, By Mouth, Every 8 hours, PRN Pain , Severe, # 84 tablet, 0 Refills, Maintenance, 01/21/23 9:27:00 EDT, [facility]., Partial fill upon patient request if the prescription is for a schedule II opioid drug., 163, cm, 11/04... Start Date: 01/21/23 Stop Date: 02/18/23 Status: Ordered prazosin 2 mg oral capsule via psychiatry A Lara, 0 Refills, Maintenance, 01/19/23 21:19:00 EDT, Partial fill upon patient request if the prescription is for a schedule II opioid drug. Start Date: 01/19/23 Status: Ordered tiZANidine 4 mg oral tablet 1, tablet, By Mouth, 3 times a day, PRN, # 90 tablet, Refills 3, Tot. Refills 3, Maintenance, NEEDED FOR SEVERE PAIN, 01/27/23 9:28:00 EDT, Route to Pharmacy Electronically, [facility] 163, cm, 11/20/22 16:00:00 EDT, Height, 83, kg... Start Date: 01/27/23 Status: Ordered traZODone 50 mg oral tablet 1/2 TO 1 TABLET, By Mouth, Daily at bedtime, # 30 tablet, Refills 5, Maintenance, 08/29/22 11:31:00EDT, Route to Pharmacy Electronically, [facility], 163, cm, 08/14/22 16:50:00 EDT, Height, 83, kg, 02/11/22 19:19:00 EST, Dry Weight Start Date: 08/29/22 Status: Ordered triamcinolone 55 mcg/inh nasal spray 1 sprays = 55 mcg, Nares, Both, Daily, # 1 each, 5 Refills, Maintenance, 08/14/22 16:59:00 EDT, [facility], Partial fill upon patient request if the prescription is for a schedule II opioid drug., 1 sprays Nares, Both Daily, 163, cm, 0... Start Date: 08/14/22 Status: Ordered Trulicity Pen 1.5 mg/0.5 mL subcutaneous solution = 1.5 mg, Subcutaneous Infusion, Every week, # 4 each, 11 Refills, Maintenance, 11/20/22 16:49:00 EDT, [facility], Partial fill upon patient request if the prescription is for a schedule II opioid drug., 163, cm, 11/20/22 16:00:00 EDT,... Start Date: 11/20/22 Status: Ordered Problem List Condition Confirmation Course Effective Dates Status H ealth Status Informant Carpal tunnel syndrome, right Confirmed Active Anxiety Confirmed Active Chronic low back pain Confirmed Active Oxygen desaturation during sleep 1 Confirmed Active Pancreatic lesion 2 Confirmed Active Hypertension Confirmed Active Fibromyalgia - PMR Dr Diop thought this was source/cause of pain 3 Confirmed Active Food insecurity Confirmed Active Hyperglycemia due to diabetes mellitus Confirmed Active Hyperlipidemia Confirmed Active Hypokalemia Confirmed Active Lesion of liver 4 Confirmed Active Hyperactivity of bladder Confirmed Active Facet syndrome, lumbar Confirmed Active Lumbar radiculopathy Confirmed Active 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 Active Depression: Major depressive disorder/ setting of bipolar Confirmed Active Obesity Confirmed Active MARILIN on CPAP - Obstructive sleep apnea, sleep team /due Confirmed Active Panic attacks Confirmed Active BHN/BHCP Receivable Clerk Charlene Fabian [phone] Confirmed Active Syncope and collapse Confirmed Active Tobacco dependence Confirmed Active DM2 (diabetes mellitus, type 2) Confirmed 04/03/17 Active Incontinence of urine 5 Confirmed Active 1on polysomnogram 2seen on MRI 10/2016, rec repeat imaging in October 2017 pain managemnt team/ Dr Diop indicated they thought pain was fibromyalgia 4seen on CT Abd 09/18/16 at [facility] [place], pending MRI 5urge and stress Social History Social History Type Response Smoking Status Current every day sm oker; Type: Cigarettes; Tobacco use times per day: 1/2 ppd; entered on: 12/24/17 Sex Patient Care team information Care Team Personnel Name: Sindy Bernal RN Position: [facility] RN Member Role: Primary Care Nurse Name: Graciela Thrasher RN Position: [facility] SN RN Member Role: Primary Care Nurse Name: Stevie Angel RN Position: [facility] RN Member Role: Primary Care Nurse Name: Keily Ortega RN Position: [facility] RN Member Role: Primary Care Nurse Name: Graciela Munroe RN Position: [facility] RN Member Role: Primary Care Nurse Name: Nichole Pichardo RN Position: [facility] RN Member Role: Primary Care Nurse Name: Melvin Whitfield RN Position: [facility] AMB Nurse Member Role: Primary Care Nurse Name: Phuong Berkowitz RN Position: [facility] RN Member Role: Primary Care Nurse Name: Pura Walker MD Position: [facility] Physician - Primary Care Member Role: PCP Address: Address: [address] [place] [address] Name: Joselyn Rain RN Position: [facility] Hospital Senior Clinical Data Coordinator Member Role: Primary Care Nurse Care Team Related Persons Name: IRA ROMERO Address: home [address] [place] [address] Name: JHON LARSON Address: [address] [place] [address] Name: JHON LARSON Address: [address] [place] [address] Name: GALO CATALAN Name: NANCY CATALAN Address: home [address] [place] [address]
--- OUTSIDE RECORDS SUMMARY | 2023-03-25 08:18 | XMS_ITS | Continuity of Care Document ---
Author Name Unknown Organization [facility] Address [address] [place] [address]- Care Team Providers Care Slotter Operator Name Role Phone Richardson CONTESTANT COORDINATOR, Leonora Pérez Primary Care Physician Encounter [facility] [place] Date(s): 08/15/22 - 09/14/22 [facility] [address] [place] [address]- Allergies, Adverse Reactions, Alerts Substance Reaction Severity Status morphine Active gabapentin swelling Active Lyrica dysphagia Active SEROquel body swelling - all over Act tony MetFORMIN Hydrochloride ER black tarry stool Active Immunizations Given and Recorded Vaccine Date Status Refusal Reason [id number] 12y+ bivalent booster vax 01/30/22 Given influenza virus vaccine, inactivated 01/30/22 Give n influenza virus vaccine, inactivated 02/04/21 Give n influenza virus vaccine, inactivated 1 04/19/20 Gi tonio influenza virus vaccine, inactivated 03/12/19 Give n influenza virus vaccine, inactivated 01/19/18 Give n influenza virus vaccine, inactivated 02/16/17 Give n pneumococcal 20-valent conjugate vaccine 12/26/21 Given SARS-CoV-2 mRNA ([id number]) vax 05/14/21 Given SARS-CoV-2 (COVID-19) mRNA BNT-162b2 [...] 10/22/21 9:23:00 EDT, Route to Pharmacy Electronically, [facility], Partial fill uponpatient request if the prescription is for a schedu... Start Date: 10/22/21 Status: Ordered Advair Diskus 500 mcg-50 mcg inhalation powder 1, inhalation, Inhalation, 2 times a day, rinse mouth and throat after use, Refills 0, Maintenance,02/06/22 13:13:00 EDT, Powder Start Date: 02/06/22 Status: Ordered albuterol 0.083% inhalation solution 3 mL = 2.5 mg, 0 Refills, Maintenance, 02/06/22 16:39:00 EDT, Partial fill upon patient request if the prescription is for a schedule II opioid drug. Start Date: 02/06/22 Status: Ordered All Day Allergy 10 mg oral tablet 1 tablet, By Mouth, Daily, # 90 tablet, 1 Refills, Maintenance, 07/25/22 12:30:00 EDT, [facility]., 163, cm, 07/11/22 14:19:00 EDT, Height, 83, kg, 02/11/22 19:19:00 EST, Dry Weight Start Date: 07/25/22 Status: Ordered amLODIPine 5 mg oral tablet 5 mg, 1, tablet, By Mouth, Daily, # 90 tablet, Refills 3, Tot. Refills 3, Maintenance, 04/29/22 11:56:00 EST, Route to Pharmacy Electronically, [facility], Partial fill upon patient request if the prescription is for a schedule II opio... Start Date: 04/29/22 Status: Ordered cholecalciferol 5000 intl units oral capsule 1 capsule = 125 mcg, By Mouth, Daily, with food, # 100 capsule, 2 Refills, Maintenance, 02/11/21 11:17:00 EST, Capsule, [facility]/pharmacy #[id number], Partial fill upon patient request if the prescription is for a schedule II opioid drug., 155, cm, 02/11/21 8:53... Start Date: 02/11/21 Status: Ordered clonazePAM 0.5 mg oral tablet 1 tablet = 0.5 mg, By Mouth, 2 times a day, # 60 tablet, 0 Refills, Maintenance, 07/25/22 17:58:00 EDT[facility] fill upon patient request if [...] Gm, 1 Refills, Maintenance, 09/03/22 14:02:00 EDT, [facility], 15, APPLY TOPICALLY TO AFFECTED AREA TWO TIMES A DAY,163, cm, 08/14/22 16:50:00 EDT, Height, 83, kg, 11/... Start Date: 09/03/22 Status: Ordered docusate-senna 50 mg-187 mg oral tablet 2 tablet, By Mouth, 2 times a day, PRN Constipation, # 100 tablet, 11 Refills, Maintenance, 08/14/22 16:57:00 EDT, Tablet, [facility] Partial fill upon patient request if the prescription is for a schedule II opioid drug., 2 tablet By... Start Date: 08/14/22 Status: Ordered duloxetine 60 mg oral enteric coated capsule 2 capsule = 120 mg, By Mouth, Daily, # 60 capsule, 5 Refills, Maintenance, 05/26/22 17:03:00 EST, Capsule, [facility] Partial fill upon patient request. NOT INCREASED DOSE. Please cancel all other Duloxetine scripts, 163, cm, 05/19/22... Start Date: 05/26/22 Status: Ordered empagliflozin 10 mg oral tablet 1 tablet = 10 mg, By Mouth, Daily in AM, # 30 tablet, 5 Refills, Maintenance, 02/20/22 12:04:00 EST, Tablet, [facility], Partial fill upon patient request if the prescription is for aschedule II opioid drug., 163, cm, 02/11/22 19:19:0... Start Date: 02/20/22 Status: Ordered ibuprofen 800 mg oral tablet 1, tablet, By Mouth, 3 times a day, PRN, # 90 tablet, Refills 1, Tot. Refills 1, Maintenance, NEEDED FOR PAIN, 07/11/22 15:09:00 EDT, Route to Pharmacy Electronically, [facility], 163, cm, 07/11/22 14:19:00 EDT, Height, 83, kg, 110... Start Date: 07/11/22 Status: Ordered Lantus 100 u/ml subcutaneous solution = 50 units, Subcutaneous Injection, Daily, # 15 mL, 2 Refills, Maintenance, 01/06/22 12:07:00 EDT, Solution, [facility], ;, 163, cm, 01/03/22 11:20:00 EDT, Height, 84, kg, 01/02/22 19:36:00 EDT, Dry Weight Start Date: 01/06/22 Status: Ordered lidocaine 5% topical film 1 patch, Topically, Daily, PRN Pain , Mild, remove after 12 hours, # 13 each, 5 Refills, Maintenance, 04/29/22 11:56:00 EST, Film, [facility], Partial fill upon patient request if theprescription is for a schedule II opioid drug., 1 p... Start Date: 04/29/22 Status: Ordered lisinopril 20 mg oral tablet 20 mg, 1, tablet, By Mouth, Daily, # 90 tablet, Refills 1, Tot. Refills 1, Maintenance, 07/25/22 12:31:00 EDT, Route to Pharmacy Electronically, [facility], 163, cm, 07/11/22 14:19:00EDT, Height, 83, [...] 30 capsule, 2 Refills, 08/26/22 13:27:00 EDT, [facility], 163, cm, 08/14/22 16:50:00 EDT, Height, 83, kg, 02/11/22 19:19:00 EST, Dry Weight Start Date: 08/26/22 Status: Ordered oxyCODONE 15 mg oral tablet 1 tablet = 15 mg, By Mouth, 3 times a day, on contract at [facility], # 84 tablet, 0 Refills, Maintenance, 08/26/22 13:21:00 EDT, [facility], Partial fill upon patient request if the prescription is for a schedule II opioid drug., 163, cm, 0... Start Date: 08/26/22 Stop Date: 09/23/22 Status: Ordered prazosin 2 mg oral capsule 0 Refills, Maintenance, 02/06/22 16:42:00 EDT, Partial fill upon patient request if the prescription is for a schedule II opioid drug. Start Date: 02/06/22 Status: Ordered tiZANidine 4 mg oral capsule See Instructions, PRN Pain , Severe, take as little as possible to control pain not to exceed 3 doses/day, # 60 capsule, 0 Refills, Maintenance, 08/26/22 13:22:00 EDT, [facility], 163, cm, 08/14/22 16:50:00 EDT, Height, 83, kg, ... Start Date: 08/26/22 Status: Ordered traZODone 50 mg oral tablet 1/2 TO 1 TABLET, By Mouth, Daily at bedtime, # 30 tablet, Refills 5, Maintenance, 08/29/22 11:31:00EDT, Route to Pharmacy Electronically, [facility], 163, cm, 08/14/22 16:50:00 EDT, Height, 83, kg, 02/11/22 19:19:00 EST, Dry Weight Start Date: 08/29/22 Status: Ordered triamcinolone 55 mcg/inh nasal spray 1 sprays = 55 mcg, Nares, Both, Daily, # 1 each, 5 Refills, Maintenance, 08/14/22 16:59:00 EDT, [facility] Partial fill upon patient request if the prescription is for a schedule II opioid drug., 1 sprays Nares, Both Daily, 163, cm, 0... Start Date: 08/14/22 Status: Ordered Trulicity Pen 1.5 mg/0.5 mL subcutaneous solution = 1.5 mg, Subcutaneous Infusion, Every week, # 4 each, 5 Refills, Maintenance, 07/25/22 18:12:00 EDT, [facility]., Partial fill upon patient request if the prescription is for a schedule II opioid drug., 163, cm, 07/11/22 14:19:00 EDT,... Start Date: 07/25/22 Status: Ordered Problem List Condition Confirmation Course [...] Confirmed Active Panic attacks Confirmed Active N/CP Accounting Coordinator Charlene Fabian [phone] Confirmed Active Syncope and collapse Confirmed Active [...] Team Personnel Name: Sindy Bernal RN Position: [facility] RN Member Role: Primary Care Nurse Name: Graciela Thrasher RN Position: [facility] RN Member Role: Primary Care Nurse Name: Stevie Angel RN Position: [facility] RN Member Role: Primary Care Nurse Name: Leonora Bai NP Position: [facility] PCO Associate Professional Member Role: PCP Address: Address: [address] [place] [address] [place] [address]- Name: Keily Ortega RN Position: [facility] RN Member Role: Primary Care Nurse Name: Nichole Pichardo RN Position: [facility] RN Member Role: Primary Care Nurse Name: Melvin Whitfield RN Position: [facility] AMB Nurse Member Role: Primary Care Nurse Name: Phuong Berkowitz RN Position: [facility] RN Member Role: Primary Care Nurse Name: Joselyn Rain RN Position: [facility] Hospital Countersinker Balance Screw Hole Member Role: Primary Care Nurse Care Team Related Persons Name: ROMERO IRA Address: [address] [place] [address] Name: JHON LARSON Address: [address] [place] [address] Name: JHON LARSON Address: [address] [place] [address] Name: GALO CATALAN Name: NANCY CATALAN Address: home [address] [place] [address]
--- OUTSIDE RECORDS SUMMARY | 2023-03-25 08:18 | XMS_ITS | Continuity of Care Document ---
Author Name Unknown Organization [facility] Address [address] [place] [id number]- Care Team Providers Care Traffic Safety Administrator Name Role Phone Richardson QUIROZ, Leonora Pérez Primary Care Physician [place] [facility] [place] - 08/17/19 [facility] [address] [place] [id number] [facility] Attending Physician: Anatoly López MD Admitting Physician: Anatoly López MD Referring Physician: Richardson QUIROZ, Leonora Pérez Allergies, Adverse Reactions, Alerts Substance Reaction Severity [...] 12:48:00 EST, Powder, Route to Pharmacy Electronically, [id number], [facility]/pharmacy #[id number], 158, cm, 04/26/19 9:58:00 EST, H... Start Date: 04/27/19 Status: Ordered albuterol 0.083% inhalation solution 3 mL = 2.5 mg, Inhalation, Every 4 hours, PRN for wheezing, # 100 each, 5 Refills, Maintenance, 06/27/19 14:32:00 EDT, Solution, [facility]/pharmacy #[id number], 160, cm, 06/01/19 14:08:00 EST, Height, [...] 5 Refills, Maintenance, 04/19/19 15:40:00 EST, Tablet, [facility]/pharmacy #[id number], 158, cm, 04/04/19 15:21:00 EST, Height, 82, kg, 04/01/19 16:10:00 EST, Dry Weight Start Date: 04/19/19 Status: Ordered clonazePAM 0.5 mg oral tablet TAKE 1 TABLET BY MOUTH TWICE A DAY NEEDED Start Date: 06/02/19 Status: Ordered clotrimazole 1% topical cream 1 application, Topically, 2 times a day, # 30 Gm, 0 Refills, Maintenance, 05/30/19 19:02:00 EST, Cream, [facility]/pharmacy #[id number], 1 application Topically 2 times a [...] 5 Refills, Maintenance, 04/28/19 16:05:00 EST, Tablet, [facility]/pharmacy #[id number], 158, cm, 04/28/19 14:51:00 EST, Height, 82, kg, 04/01/19 16:10:00 EST, Dry Weight Start Date: 04/28/19 Status: Ordered lidocaine 5% topical film 1 patch, Topically, Daily, For chronic radicular back pain, # 30 patch, 5 Refills, Maintenance, 06/27/19 14:37:00 EDT, [facility]/pharmacy #[id number], 1 patch Topically Daily,Instr:For chronic radicular back pain, 160, cm, 06/01/19 14:08:00 EST, Height, 88.9, kg,... Start Date: 06/27/19 Status: Ordered lisinopril 10 mg oral tablet 10 mg, 1, tablet, By Mouth, Daily, # 90 tablet, Refills 3, Tot. Refills 3, Maintenance, 05/08/19 20:27:00 EST, Route to Pharmacy Electronically, [facility]/pharmacy #[id number], to replace 2.5mg dose, 158, cm, [...] not to exceed 3000 mg/day. instructions in romansh, # 120 tablet, 2 Refills, Maintenance, 07/25/19 8:41:00 EDT, Tablet, [facility]/pharmacy #[id number], 160, cm, 07/22/19 15:08:00 EDT, Height, 86.8, kg, 04... Start Date: 07/25/19 Status: Ordered metFORMIN 750 mg oral tablet, extended release 1 tablet = 750 mg, By Mouth, 2 times a day, # 60 tablet, 6 Refills, Maintenance, 05/30/19 18:54:00 EST, ER Tablet, [facility]/pharmacy #[id number], dose increased to BID 05/30/19, 160, [...] pain, for 28 days, on contract at [facility]., # 56 tablet, 0 Refills, Acute 09/12/19 14:55:00 EDT, 08/15/19 14:55:00 EDT, [facility]/pharmacy #[id number], Partial fill upon patient request, 160, cm, 07/22/19 15:08:00 EDT,... Start Date: 08/15/19 Stop Date: 09/12/19 Status: Ordered prazosin 1 mg oral capsule 1 mg, 1, capsule, By Mouth, Daily at bedtime, for nightmares, # 30 capsule, Refills 0, Tot. Refills0, Maintenance, 05/30/19 18:52:00 EST, Route to Pharmacy Electronically, [facility]/pharmacy #[id number], 160, cm, 05/30/19 18:08:00 EST, Height, [...] tablet, 5 Refills, Maintenance, 05/04/19 9:35:00 EST, [facility]/pharmacy #[id number], 158, cm, 04/28/19 14:51:00 EST, Height, 82, kg, 04/01/19 16:10:00 EST, Dry Weight Start Date: 05/04/19 Status: Ordered Senna 8.6 mg oral tablet 8.6 mg, 1, tablet, By Mouth, Daily at bedtime, # 100 tablet, Refills 2, Tot. Refills 2, Maintenance, 06/10/19 16:12:00 EST, Route to Pharmacy Electronically, [facility]/pharmacy #[id number], 160, cm, 06/01/19 14:08:00 EST, Height, 88.9, kg, 05/23/19 22:09:00 EST,... Start Date: 06/10/19 Status: Ordered Spiriva Respimat 60 ACT 2.5 mcg/inh inhalation aerosol 2 puffs, Inhalation, Daily, # 1 each, 5 Refills, Maintenance, 04/26/19 10:30:00 EST, [facility]/pharmacy #[id number], 158, cm, 04/26/19 9:58:00 EST, Height, 82, kg, 04/01/19 16:10:00 EST, Dry Weight Start Date: 04/26/19 Status: Ordered tiZANidine 2 mg oral tablet 2 mg, 1, tablet, By Mouth, 2 times a day, PRN, # 30 tablet, Refills 2, Tot. Refills 2, Maintenance,as needed for muscle spasm, 07/25/19 8:41:00 EDT, Route to Pharmacy Electronically, [facility]/pharmacy #[id number], 160, cm, 07/22/19 15:08:00 EDT, Height, 86.8, k... Start Date: 07/25/19 Status: Ordered Vitamin D3 5000 intl units oral tablet 1 tablet = 5,000 International_Units, By Mouth, Daily, # 100 tablet, 0 Refills, Maintenance, 12/16/16 14:23:06, Tablet Start Date: 12/16/16 Status: Ordered Problem List Condition Effective Dates Status Health Status Inform ant Acute medial meniscus tear o f left knee(Confirmed) 10/2015 Active Back pain(Confirmed) 2, 3 Active Anxiety(Confirmed) Active Chronic low back pain(Confirmed) Active Pancreatic lesion(Confirmed) 4 Active Hypertension(Confirmed) Active Fibromyalgia(Confirmed) Active Hyperlipidemia(Confirmed) Active Lesion of liver(Confirmed) 5 Active Hyperactivity of bladder(Confirmed) Active Facet syndrome, lumbar(Confirmed) Active Lumbar radiculopathy(Confirmed) Active Major depressive disorder(Confirmed) Active Obesity(Confirmed) Active MARILIN on CPAP(Confirmed) Active Panic attacks(Confirmed) Active *BHN/BHCP/Efrem Macdonald-[phone]/[facility], active care coordination(Confirmed) Active Acute meniscal tear of right knee(Confirmed) 6 06/2015 Active Tobacco dependence(Confirmed) Active DM2 (diabetes mellitus, type 2)(Confirmed) 04/03/17 Active Incontinence of urine(Confirmed) 7 Active 1surgically repaired November 2015, Dr. Sg MENDEZ 2DJD Lumbar Spine per MRI 3L3-L4 disc herniation per client report 4seen on MRI 10/2016, rec repeat imaging in October [address] Abd 09[place]18[place]16 [place] [facility] [place] 6surgically repaired July 2015 Dr. Sg MENDEZ 7urge and stress Social History Social History Type Response Tobacco Use: Pt states she q uit smoking 1 week ago. Sex Female
--- OUTSIDE RECORDS SUMMARY | 2023-03-25 08:18 | XMS_ITS | Continuity of Care Document ---
Author Name Unknown Organization [facility] Address [address] [place] [address]- Care Team Providers Care Edge Sander Name Role Phone Richardson WET MACHINE OPERATOR, Leonora Pérez Primary Care Physician Encounter [facility] [place] Date(s): 02/04/21 - 03/13/21 [facility] [address] [place] [address]- Attending Physician: Alon Cleveland MD Admitting Physician: Alon Cleveland MD Allergies, Adverse Reactions, Alerts Substance Reaction Severity Status gabapentin swelling Active Lyrica dysphagia Active SEROquel body swelling - all over Act tony MetFORMIN Hydrochloride ER black tarry stool Active Immunizations Given and Recorded Vaccine Date Status Refusal Reason influenza virus vaccine, inactivated 02/04/21 Give n [...] tablet, Refills 1, Tot. Refills 1, Maintenance, 01/16/21 19:30:00 EDT, Route to Pharmacy Electronically, [facility]/pharmacy #[id number], Partial fill upon patient request if the prescription is for a schedule II o... Start Date: 01/16/21 Status: Ordered Advair Diskus 500 mcg-50 mcg inhalation powder 1, puffs, Inhalation, 2 times a day, [id number], # 1 each, Refills 11, Tot. Refills 11, Maintenance, 04/05/20 14:12:00 EST, Powder, Route to Pharmacy Electronically, [id number], [facility]/pharmacy #[id number], 162.56, cm, 03/27/20 11:36:00... Start Date: 04/05/20 Status: Ordered albuterol 0.083% inhalation solution 3 mL = 2.5 mg, Inhalation, Every 4 hours, PRN for wheezing, # 100 each, 2 Refills, Maintenance, 08/15/20 10:22:00 EDT, Solution, [facility]/pharmacy #[id number], 163, cm, 08/09/20 8:45:00 EDT, Height, 84.8, kg, 06/25/20 20:28:00 EDT, Dry Weight Start Date: 08/15/20 Status: Ordered amitriptyline 50 mg oral tablet 1 tablet, By Mouth, Daily at bedtime, # 90 tablet, 1 Refills, [facility] [id number], 155, cm, 02/04/21 11:46:00 EDT, Height, 90.9, kg, 02/02/21 5:59:00 EDT, Dry Weight Start Date: 02/07/21 Status: Ordered atorvastatin 20 mg oral tablet 1 tablet = 20 mg, By Mouth, Daily, # 90 tablet, 3 Refills, Maintenance, 04/05/20 14:11:00 EST, Tablet, [facility]/pharmacy #[id number], Partial fill upon patient request if the prescription is for a schedule II opioid drug., 162.56, cm, 03/27/20 11:36:00 EST, Heig... Start Date: 04/05/20 Status: Ordered capsaicin 0.025% topical cream 1 application, Topically, 3 times a day, # 45 Gm, 3 Refills, Maintenance, 11/01/19 15:25:00 EDT, Cream, [facility]/pharmacy #[id number], 1 application Topically 3 times a day, 163, cm, 11/01/19 14:40:00 EDT, Height, 80, kg, 10/29/19 0:29:00 EDT, Dry Weight Start Date: 11/01/19 Status: Ordered cetirizine 10 mg oral tablet 1 tablet = 10 mg, By Mouth, Daily, # 30 tablet, 5 Refills, Maintenance, 06/20/20 13:18:00 EDT, Tablet, [facility]/pharmacy #[id number], 162, cm, 05/24/20 9:01:00 EST, Height, 80, kg, 04/18/20 9:48:00 EST, Dry Weight Start Date: 06/20/20 Status: Ordered cholecalciferol 5000 intl units oral capsule 1 capsule = 125 mcg, By Mouth, Daily, with food, # 100 capsule, 2 Refills, Maintenance, 02/11/21 11:17:00 EST, Capsule, [facility]/pharmacy #[id number], Partial fill upon patient request if the prescription is for a schedule II opioid drug., 155, cm, 02/11/21 8:53... Start Date: 02/11/21 Status: Ordered clonazePAM 0.5 mg oral tablet TAKE 1 TABLET BY MOUTH TWICE A DAY NEEDED Start Date: 06/02/19 Status: Ordered clotrimazole 1% topical cream 1 application, Topically, 2 times a day, # 30 Gm, 1 Refills, Maintenance, 12/05/20 12:42:00 EDT, Cream, [facility]/pharmacy #[id number], 1 application Topically 2 times a day, 165, cm, 11/22/20 8:40:00 EDT, Height, 84.8, kg, 06/25/20 20:28:00 EDT, Dry Weight Start Date: 12/05/20 Status: Ordered Disposable Bedpad Disposable Bedpad, See Instructions, # 120 each, Refills 11, Tot. Refills 11, Maintenance, 4 per day dx: N32.81, N39.46 duration: lifetime, 05/31/20 10:16:00 EST, Supply Start Date: 05/31/20 Status: Ordered duloxetine 60 mg oral enteric coated capsule 2 capsule = 120 mg, By Mouth, Daily, # 60 capsule, 5 Refills, Maintenance, 02/18/21 15:09:00 EST, Capsule, [facility]/pharmacy #[id number], Partial fill upon patient request. NOT INCREASED DOSE, 155, cm, 02/18/2114:54:00 EST, Height, 90.9, kg, 02/02/21 5:59:00 ED... Start Date: 02/18/21 Status: Ordered estradiol 0.1 mg/g vaginal cream = 1 Gm, Vaginally, Daily at bedtime, # 30 Gm, 11 Refills, Maintenance, 12/31/20 15:58:00 EDT, [id number], Partial fill upon patient request if the prescription is for a schedule II opioid drug., 165, cm, 12/31/20 14:56:00 EDT, Height, 87.6, kg... Start Date: 12/31/20 Status: Ordered fluticasone 50 mcg/inh nasal spray See Instructions, USE 1 SPRAY IN BOTH NOSTRILS 2 TIMES A DAY, # 16 mL, 1 Refills, Maintenance, [id number], 30, USE 1 SPRAY IN BOTH NOSTRILS 2 TIMES A DAY, 163, cm, 08/15/20 14:23:00 EDT, Height,84.8, kg, 06/25/20 20:28:00 EDT, Dry Weight Start Date: 09/07/20 Status: Ordered hydrochlorothiazide 12.5 mg oral tablet 1 tablet = 12.5 mg, By Mouth, Daily, # 30 tablet, 0 Refills, Maintenance, 02/11/21 11:07:00 EST, Tablet, Partial fill upon patient request if the prescription is for a schedule II opioid drug. Start Date: 02/11/21 Status: Ordered Januvia 100 mg oral tablet 1 tablet = 100 mg, By Mouth, Daily, # 30 tablet, 2 Refills, Maintenance, 03/01/21 12:42:00 EST, Tablet, [id number], 155, cm, 02/18/21 14:54:00 EST, Height, 90.9, kg, 02/02/21 5:59:00 EDT, DryWeight Start Date: 03/01/21 Status: Ordered Lantus 100 u/ml subcutaneous solution = 40 units, Subcutaneous Injection, Daily, # 12 mL, 2 Refills, Maintenance, 03/01/21 12:42:00 EST, Solution, [facility]/pharmacy #[id number], increased dose 12/26/19, 155, cm, 02/18/21 14:54:00 EST, Height, 90.9, kg, 02/02/21 5:59:00 EDT, Dry Weight Start Date: 03/01/21 Status: Ordered lidocaine 5% topical film 1 patch, Topically, Daily, For chronic radicular back pain, # 30 patch, 5 Refills, Maintenance, 10/11/20 8:15:00 EDT, [id number], 1 patch Topically Daily,Instr:For chronic radicular back pain, 163, cm, 08/15/20 14:23:00 EDT, Height, 84.8, kg,... Start Date: 10/11/20 Status: Ordered lisinopril 20 mg oral tablet 20 mg, 1, tablet, By Mouth, Daily, # 30 tablet, Refills 0, Maintenance, 02/11/21 11:07:00 EST, Partial fill upon patient request if the prescription is for a schedule II opioid drug. Start Date: 02/11/21 Status: Ordered loratadine 10 mg oral capsule 1 capsule = 10 mg, By Mouth, Daily, # 40 capsule, 0 Refills, Maintenance, 08/15/20 15:59:00 EDT, Capsule, [facility]/pharmacy #[id number], Partial fill upon patient request if the prescription is for a schedule II opioid drug., 163, cm, 08/15/20 14:23:00 EDT, Heig... Start Date: 08/15/20 Status: Ordered mirabegron 25 mg oral tablet, extended release 1 tablet = 25 mg, By Mouth, Daily, do not crush or chew, # 30 tablet, 11 Refills, Maintenance, 12/31/20 15:58:00 EDT, ER Tablet, [facility]/pharmacy #[id number], Partial fill upon patient request if the prescription is for a schedule II opioid drug., 165, cm, 12/06... Start Date: 12/31/20 Status: Ordered mirtazapine 30 mg oral tablet 1 tablet = 30 mg, By Mouth, Daily at bedtime, Maintenance, 05/24/19 9:12:00 EST, Tablet Start Date: 05/24/19 Status: Ordered nabumetone 750 mg oral tablet 1 tablet = 750 mg, By Mouth, 2 times a day, Do not take with Naproxen, # 60 tablet, 1 Refills, Maintenance, 01/31/21 14:16:00 EDT, Tablet, [facility], Partial fill upon patient request if the prescription is for a schedule II opioid . Start Date: 01/31/21 Status: Ordered omeprazole 40 mg oral enteric coated capsule 1 capsule = 40 mg, By Mouth, Daily, PRN Dyspepsia, # 90 capsule, 0 Refills, Maintenance, 01/11/21 13:46:00 EDT, EC Capsule, [facility]/pharmacy #[id number], 165, cm, 12/31/20 14:56:00 EDT, Height, 87.6, kg, 12/31/20 14:56:00 EDT, Dry Weight Start Date: 01/11/21 Status: Ordered oxyCODONE 15 mg oral tablet 1 tablet = 15 mg, By Mouth, 2 times a day, for 28 days, # 56 tablet, 0 Refills, Acute 03/18/21 15:20:00 EST, 02/18/21 15:20:00 EST, [facility], Client on contract at [facility], failed Morphine, switching to oxycodone 15mg BID today 02/18/21... Start Date: 02/18/21 Stop Date: 03/18/21 Status: Ordered Senna 8.6 mg oral tablet 8.6 mg, 1, tablet, By Mouth, Daily at bedtime, # 100 tablet, Refills 11, Tot. Refills 11, Maintenance, 10/30/20 11:37:00 EDT, Route to Pharmacy Electronically, [facility]/pharmacy #[id number], 163, cm, 08/15/20 14:23:00 EDT, Height, 84.8, kg, 06/25/20 20:28:00 EDT... Start Date: 10/30/20 Status: Ordered Spiriva Respimat 60 ACT 2.5 mcg/inh inhalation aerosol 2 puffs, Inhalation, Daily, # 1 each, 11 Refills, Maintenance, 04/05/20 14:17:00 EST, [facility]/pharmacy #[id number], Partial fill upon patient request [...] tablet, Refills 1, Tot. Refills 1, Maintenance,Spasm, 12/05/20 12:45:00 EDT, Route to Pharmacy Electronically, [facility]/pharmacy #[id number], 165, cm, 11/22/20 8:40:00 EDT, Height, 84.8, kg, 06/25/20 20:28:00... Start Date: 12/05/20 Stop Date: 01/30/21 Status: Ordered Trulicity Pen 0.75 mg/0.5 mL subcutaneous solution 0.5 mL = 0.75 mg, Subcutaneous Injection, Every week, rotate injection sites, # 2 mL, 5 Refills, Maintenance, 10/31/20 15:27:00 EDT, Solution, [facility]/pharmacy #[id number], Partial fill upon patient request ifthe prescription is for a schedule II opioid drug.,... Start Date: 10/31/20 Status: Ordered Urinary Liners Urinary Liners, See Instructions, # 180 each, Refills 11, Tot. Refills 11, Maintenance, 6 per day dx: N32.81, N39.46 duration:lifetime, 05/31/20 10:13:00 EST, Supply Start Date: 05/31/20 Status: Ordered Problem List Condition Effective Dates Status Health Status Inform ant Anxiety(Confirmed) Active Chronic low back pain(Confirmed) Active Pancreatic lesion(Confirmed) 1 Active Hypertension(Confirmed) Active Fibromyalgia(Confirmed) Active Food insecurity(Confirmed) Active Hyperglycemia due to diabete s mellitus(Confirmed) Active Hyperlipidemia(Confirmed) Active Hypokalemia(Confirmed) Active Lesion of liver(Confirmed) 2 Active Hyperactivity of bladder(Confirmed) Active Facet syndrome, lumbar(Confirmed) Active Lumbar radiculopathy(Confirmed) Active Major depressive disorder(Confirmed) Active Obese class II(Confirmed) Active Obesity(Confirmed) Active MARILIN on CPAP(Confirmed) Active Panic attacks(Confirmed) Active BHN/BHCP Bioinformatics Support Specialist Jb Fabian [phone](Confirmed) Active Syncope and collapse(Confirmed) Active Tobacco dependence(Confirmed) Active DM2 (diabetes mellitus, type 2)(Confirmed) 04/03/17 Active Incontinence of urine(Confirmed) 3 Active 1seen on MRI 10/2016, rec repeat imaging in October [address] Abd 09/18/[address] [facility] [place], pending MRI 3urge and stress Social History Social History Type Response Smoking Status Current every day kaitlin valle; Type: Cigarettes; Tobacco use times per day: 1/2 ppd; entered on: 12/24/17 Sex
--- OUTSIDE RECORDS SUMMARY | 2023-03-25 08:18 | XMS_ITS | Continuity of Care Document ---
Author Name Unknown Organization [facility] Address [address] [place] [address]- Care Team Providers Care Reed Maker Name Role Phone Richardson QUIROZ, Leonora Pérez Primary Care Physician [phone] Encounter [facility] Date(s): 07/29/21 - 10/04/21 [facility] [address] [place] [address]- Attending Physician: Not on Staff, Attending MD Allergies, Adverse Reactions, Alerts Substance Reaction Severity Status morphine Active gabapentin swelling Active MetFORMIN Hydrochloride ER black tarry stool Active Lyrica dysphagia Active SEROquel body swelling - all over Act tony Immunizations Given and Recorded Vaccine Date Status Refusal Reason SARS-CoV-2 mRNA ([id number]) vax 05/14/21 Given influenza virus vaccine, inactivated [...] tablet, Refills 1, Tot. Refills 1, Maintenance, 09/09/21 13:08:00 EDT, Route to Pharmacy Electronically, [facility], Partial fill upon patient request if the prescription is for a sched... Start Date: 09/09/21 Status: Ordered Advair Diskus 500 mcg-50 mcg inhalation powder 1, puffs, Inhalation, 2 times a day, j45.909, # 1 each, Refills 5, Tot. Refills 5, Maintenance, 05/15/21 9:20:00 EST, Powder, Route to Pharmacy Electronically, [id number], [facility], 162.5, cm, 05/10/21 14:47... Start Date: 05/15/21 Status: Ordered albuterol 0.083% inhalation solution 3 mL = 2.5 mg, Inhalation, Every 4 hours, PRN for wheezing, # 100 each, 2 Refills, Maintenance, 05/15/21 9:30:00 EST, Solution, [facility], 162.5, cm, 05/10/21 14:47:00 EST, Height, 90.9, kg, 02/02/21 5:59:00 EDT, Dry Weight Start Date: 05/15/21 Status: Ordered amitriptyline 25 mg oral tablet 25 mg, 1, tablet, By Mouth, Daily at bedtime, # 30 tablet, Refills 2, Tot. Refills 2, Maintenance, 08/30/21 12:06:00 EDT, Route to Pharmacy Electronically, [facility], Partial fill upon patient request if the prescription is for a sche... Start Date: 08/30/21 Status: Ordered cetirizine 10 mg oral tablet 1 tablet = 10 mg, By Mouth, Daily, # 30 tablet, 5 Refills, Maintenance, 08/28/21 9:07:00 EDT, Tablet, [facility], 162, cm, 08/22/21 9:46:00 EDT, Height, 86, kg, 07/23/21 0:58:00 EDT, Dry Weight Start Date: 08/28/21 Status: Ordered cholecalciferol 5000 intl units oral capsule 1 capsule = 125 mcg, By Mouth, Daily, with food, # 100 capsule, 2 Refills, Maintenance, 02/11/21 11:17:00 EST, Capsule, [facility] #[id number], Partial fill upon patient request if [...] 1 Refills, Maintenance, 07/08/21 9:45:00 EDT, Cream, [facility], PLEASE CANCEL ESTRADIOL VAGINAL CREAM, 1 application [...] tablet, 5 Refills, Maintenance, 08/28/21 9:07:00 EDT,Tablet, [facility], Partial fill upon patient request if the prescription is for a schedule II opioid drug., 162, cm, 08/22/21 9:46:00... Start Date: 08/28/21 Status: Ordered fluticasone 50 mcg/inh nasal spray See Instructions, USE 1 SPRAY IN BOTH NOSTRILS 2 TIMES A DAY, # 16 mL, 1 Refills, 07/08/21 9:44:00 EDT, [facility], 30, USE 1 SPRAY IN BOTH NOSTRILS 2 TIMES A DAY, 162.5, cm, :49:00 EDT, Height, 85.8, kg, 06/04/21 10:03:00 ES... Start Date: 07/08/21 Status: Ordered hydrochlorothiazide 12.5 mg oral tablet 1 tablet = 12.5 mg, By Mouth, Daily, TAKE 1 TABLET BY MOUTH EVERY DAY, # 30 capsule, 2 Refills, Maintenance, 08/28/21 9:07:00 EDT, [facility], 162, cm, 08/22/21 9:46:00 EDT, Height, 86, kg, 07/23/21 0:58:00 EDT, Dry Weight Start Date: 08/28/21 Status: Ordered ibuprofen 800 mg oral tablet 800 mg, 1, tablet, By Mouth, 3 times a day, PRN, # 90 tablet, Refills 1, Tot. Refills 1, Maintenance, Pain , Mild, 09/10/21 14:23:00 EDT, Route to Pharmacy Electronically, [facility],please fill 800mg instead of 600mg, 162, cm, 09/06/... Start Date: 09/10/21 Status: Ordered Insulin Syringe, BD Ultra-Fine 0.5 cc 31 G x 8 mm (16in) See Instructions, # 100 each, Refills 11, Tot. Refills 11, Maintenance, Dx: DM2 once daily injections, 07/08/21 9:48:00 EDT, Supply, 162.5, cm, 07/08/21 8:49:00 EDT, Height, 85.8, kg, 06/04/21 10:03:00 EST, Dry Weight Start Date: 07/08/21 Status: Ordered Januvia 100 mg oral tablet 1 tablet = 100 mg, By Mouth, Daily, # 90 tablet, 3 Refills, Maintenance, 06/18/21 21:04:00 EDT, Tablet, [facility], 162.5, cm, 06/17/21 13:04:00 EDT, Height, 85.8, kg, 06/04/21 10:03:00 EST, Dry Weight Start Date: 06/18/21 Status: Ordered Lantus 100 u/ml subcutaneous solution = 50 units, Subcutaneous Injection, Daily, # 15 mL, 5 Refills, Maintenance, 07/08/21 9:38:00 EDT, Solution, [facility], ;, 162.5, cm, 07/08/21 8:49:00 EDT, Height, 85.8, kg, 06/04/21 10:03:00 EST, Dry Weight Start Date: 07/08/21 Status: Ordered lisinopril 20 mg oral tablet 20 mg, 1, tablet, By Mouth, Daily, # 90 tablet, Refills 3, Tot. Refills 3, Maintenance, 08/28/21 9:07:00 EDT, Route to Pharmacy Electronically, [facility], 162, cm, 08/22/21 9:46:00 EDT, Height, 86, kg, 07/23/21 0:58:00 EDT, Dry Weight Start Date: 08/28/21 Status: Ordered mirtazapine 30 mg oral tablet 1 tablet = 30 mg, By Mouth, Daily at bedtime, Maintenance, 05/24/19 9:12:00 EST, Tablet Start Date: 05/24/19 Status: Ordered omeprazole 40 mg oral enteric coated capsule 1 capsule, By Mouth, Daily, PRN NEEDED, # 30 capsule, 2 Refills, [facility], 162, cm, 09/06/21 13:04:00 EDT, Height, 86, kg, 07/23/21 0:58:00 EDT, Dry Weight Start Date: 10/02/21 Status: Ordered OxyCONTIN 30 mg oral tablet, extended release 1 tablet = 30 mg, By Mouth, Every 12 hours, # 56 tablet, 0 Refills, Maintenance, 10/02/21 8:02:00 EDT, ER Tablet, [facility], Partial fill upon patient request if the prescription is for a schedule II opioid drug. ON contract at [facility],... Start Date: 10/02/21 Stop Date: 10/30/21 Status: Ordered Senna 8.6 mg oral tablet 8.6 mg, 1, tablet, By Mouth, Daily at bedtime, # 100 tablet, Refills 11, Tot. Refills 11, Maintenance, 07/08/21 9:39:00 EDT, Route to Pharmacy Electronically, [facility], 162.5, cm, 07/08/21 8:49:00 EDT, Height, 85.8, kg, 06/04/21 10:0... Start Date: 07/08/21 Status: Ordered Trulicity Pen 3 mg/0.5 mL subcutaneous solution 0.5 mL = 3 mg, Subcutaneous Injection, Every week, rotate injection sites, # 2 mL, 5 Refills, Maintenance, 09/03/21 15:49:00 EDT, Solution, [facility], Partial fill upon patient request if [...] on CPAP(Confirmed) Active Panic attacks(Confirmed) Active BHN/BHCP Jig Hand Jb Fabian [phone](Confirmed) Active Syncope and collapse(Confirmed) Active Tobacco dependence(Confirmed) Active DM2 (diabetes mellitus, type 2)(Confirmed) 04/03/17 Active Incontinence of urine(Confirmed) 3 Active 1seen on MRI 10/2016, rec repeat imaging in October [address] [place] [facility] [place] 3urge and stress Social History Social History Type Response Smoking Status Current every day kaitlin valle; Type: Cigarettes; Tobacco use times per day: 1/2 ppd; entered on: 12/24/17 Sex
--- OUTSIDE RECORDS SUMMARY | 2023-03-25 08:19 | XMS_ITS | Continuity of Care Document ---
Author Name Unknown Organization [facility] Address [address] [place] [address]- Care Team Providers Care Smog Technician Name Role Phone Richardson QUIROZ, Leonora Pérez Primary Care Physician [facility]counter [facility] Date(s): 08/09/21 - 09/08/21 [facility] [address], [place] [address] Allergies, Adverse Reactions, Alerts Substance Reaction Severity Status morphine Active gabapentin swelling Active Lyrica dysphagia Active SEROquel body swelling - all over Act tony MetFORMIN Hydrochloride ER black tarry stool Active Immunizations Given and Recorded Vaccine Date Status Refusal Reason SARS-CoV-2 mRNA ([id number]) vax 05/14/21 Given influenza virus vaccine, inactivated [...] 07/18/21 15:15:00 EDT, Route to Pharmacy Electronically, [facility], Partial fill upon patient request if the prescription is for a sched... Start Date: 07/18/21 Status: Ordered Advair Diskus 500 mcg-50 mcg inhalation powder 1, puffs, Inhalation, 2 times a day, j45.909, # 1 each, Refills 5, Tot. Refills 5, Maintenance, 05/15/21 9:20:00 EST, Powder, Route to Pharmacy Electronically, [id number], [facility], 162.5, cm, 05/10/21 14:47... Start Date: 05/15/21 Status: Ordered albuterol 0.083% inhalation solution 3 mL = 2.5 mg, Inhalation, Every 4 hours, PRN for wheezing, # 100 each, 2 Refills, Maintenance, 05/15/21 9:30:00 EST, Solution, [facility], 162.5, cm, 05/10/21 14:47:00 EST, Height, 90.9, kg, 02/02/21 5:59:00 EDT, Dry Weight Start Date: 05/15/21 Status: Ordered amitriptyline 25 mg oral tablet 25 mg, 1, tablet, By Mouth, Daily at bedtime, # 30 tablet, Refills 2, Tot. Refills 2, Maintenance, 08/30/21 12:06:00 EDT, Route to Pharmacy Electronically, [facility], Partial fill upon patient request if the prescription is for a sche... Start Date: 08/30/21 Status: Ordered cetirizine 10 mg oral tablet 1 tablet = 10 mg, By Mouth, Daily, # 30 tablet, 5 Refills, Maintenance, 08/28/21 9:07:00 EDT, Tablet, [facility], 162, cm, 08/22/21 9:46:00 EDT, Height, 86, kg, 07/23/21 0:58:00 EDT, Dry Weight Start Date: 08/28/21 Status: Ordered cholecalciferol 5000 intl units oral capsule 1 capsule = 125 mcg, By Mouth, Daily, with food, # 100 capsule, 2 Refills, Maintenance, 02/11/21 11:17:00 EST, Capsule, [id number], Partial fill upon patient request [...] 1 Refills, Maintenance, 07/08/21 9:45:00 EDT, Cream, [facility], PLEASE CANCEL ESTRADIOL VAGINAL CREAM, 1 [...] tablet, 5 Refills, Maintenance, 08/28/21 9:07:00 EDT,Tablet, [facility], Partial fill upon patient request if the prescription is for a schedule II opioid drug., 162, cm, 08/22/21 9:46:00... Start Date: 08/28/21 Status: Ordered fluticasone 50 mcg/inh nasal spray See Instructions, USE 1 SPRAY IN BOTH NOSTRILS 2 TIMES A DAY, # 16 mL, 1 Refills, 07/08/21 9:44:00 EDT, [facility]., 30, USE 1 SPRAY IN BOTH NOSTRILS 2 TIMES A DAY, 162.5, cm, :49:00 EDT, Height, 85.8, kg, 06/04/21 10:03:00 ES... Start Date: 07/08/21 Status: Ordered hydrochlorothiazide 12.5 mg oral tablet 1 tablet = 12.5 mg, By Mouth, Daily, TAKE 1 TABLET BY MOUTH EVERY DAY, # 30 capsule, 2 Refills, Maintenance, 08/28/21 9:07:00 EDT, [facility]., 162, cm, 08/22/21 9:46:00 EDT, Height, 86, kg, 07/23/21 0:58:00 EDT, Dry Weight Start Date: 08/28/21 Status: Ordered Insulin Syringe, BD Ultra-Fine 0.5 [...] 3 Refills, Maintenance, 06/18/21 21:04:00 EDT, Tablet, [facility], 162.5, cm, 06/17/21 13:04:00 EDT, Height, 85.8, kg, 06/04/21 10:03:00 EST, Dry Weight Start Date: 06/18/21 Status: Ordered Lantus 100 u/ml subcutaneous solution = 50 units, Subcutaneous Injection, Daily, # 15 mL, 5 Refills, Maintenance, 07/08/21 9:38:00 EDT, Solution, [facility], ;, 162.5, cm, 07/08/21 8:49:00 EDT, Height, 85.8, kg, 06/04/21 10:03:00 EST, Dry Weight Start Date: 07/08/21 Status: Ordered lisinopril 20 mg oral tablet 20 mg, 1, tablet, By Mouth, Daily, # 90 tablet, Refills 3, Tot. Refills 3, Maintenance, 08/28/21 9:07:00 EDT, Route to Pharmacy Electronically, [facility], 162, cm, 08/22/21 9:46:00 EDT, Height, [...] Refills, Maintenance, 05/09/21 10:45:00 EST, EC Capsule, [facility], 162.5, cm, 03/22/21 14:58:00 EST, Height, 90.9,kg, 02/02/21 5:59:00 EDT, Dry Weight Start Date: 05/09/21 Status: Ordered OxyCONTIN 30 mg oral tablet, extended release 1 tablet = 30 mg, By Mouth, Every 12 hours, # 56 tablet, 0 Refills, Maintenance, 09/06/21 13:32:00 EDT, ER Tablet, [facility], Partial fill upon patient request if the prescription isfor a schedule II opioid drug. ON contract at [facility],... Start Date: 09/06/21 Stop Date: 10/04/21 Status: Ordered Senna 8.6 mg oral tablet 8.6 mg, 1, tablet, By Mouth, Daily at bedtime, # 100 tablet, Refills 11, Tot. Refills 11, Maintenance, 07/08/21 9:39:00 EDT, Route to Pharmacy Electronically, [facility], 162.5, cm, 07/08/21 8:49:00 EDT, Height, 85.8, kg, 06/04/21 10:0... 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
--- OUTSIDE RECORDS SUMMARY | 2023-03-25 08:19 | XMS_ITS | Continuity of Care Document ---
Author Name Unknown Organization [facility] Address [address] [place] [address]- Care Team Providers Care Trustee Of Estate Name Role Phone Richardson RIDING SILKS CUSTODIAN, Leonora Pérez Primary Care Physician Encounter [facility] Date(s): 07/11/22 - 08/10/22 [facility] [address] [place] [address]- Encounter Diagnosis INA (stress urinary incontinence, female)(Discharge Diagnosis) - 02/11/19 Attending Physician: Clarence Reynaga Admitting Physician: Clarence Reynaga Referring Physician: AdmtrClarence Allergies, Adverse Reactions, Alerts Substance Reaction Severity Status morphine Active gabapentin swelling Active Lyrica dysphagia Active SEROquel body swelling - all over Act tony MetFORMIN Hydrochloride ER black tarry stool Active Immunizations Given and Recorded Vaccine Date Status Refusal Reason [id number] 12y+ bivalent booster vax 01/30/22 Given influenza virus vaccine, inactivated 01/30/22 Give n influenza virus vaccine, inactivated 02/04/21 Give n influenza virus vaccine, inactivated 1 04/19/20 Gi tonio influenza virus vaccine, inactivated 03/12/19 Give n influenza virus vaccine, inactivated 01/19/18 Give n influenza virus vaccine, inactivated 02/16/17 Give n pneumococcal 20-valent conjugate vaccine 12/26/21 Given SARS-CoV-2 mRNA ([id number]) vax 05/14/21 Given SARS-CoV-2 (COVID-19) mRNA [id number] [...] 10/22/21 9:23:00 EDT, Route to Pharmacy Electronically, [facility], Partial fill uponpatient request if the prescription [...] tablet, 1 Refills, Maintenance, 07/25/22 12:30:00 EDT, [facility], 163, cm, 07/11/22 14:19:00 EDT, Height, 83, kg, 02/11/22 19:19:00 EST, Dry Weight Start Date: 07/25/22 Status: Ordered amLODIPine 5 mg oral tablet 5 mg, 1, tablet, By Mouth, Daily, # 90 tablet, Refills 3, Tot. Refills 3, Maintenance, 04/29/22 11:56:00 EST, Route to Pharmacy Electronically, [facility], Partial fill upon patient request if the prescription is for a schedule II opio... Start Date: 04/29/22 Status: Ordered cholecalciferol 5000 intl units oral capsule 1 capsule = 125 mcg, By Mouth, Daily, with food, # 100 capsule, 2 Refills, Maintenance, 02/11/21 11:17:00 EST, Capsule, [facility]/pharmacy #[id number], Partial fill upon patient request if the prescription is for a schedule II opioid drug., 155, cm, 02/11/21 8:53... Start Date: 02/11/21 Status: Ordered clonazePAM 0.5 mg oral tablet 1 tablet = 0.5 mg, By Mouth, 2 times a day, # 60 tablet, 0 Refills, Maintenance, 07/25/22 17:58:00 EDT, [facility] Partial fill upon patient request if the prescription is for a schedule II opioid drug., 163, cm, 07/11/22 14:19:00 EDT... Start Date: 07/25/22 Status: Ordered clonazePAM 0.5 mg oral tablet TAKE 1 TABLET BY MOUTH TWICE A DAY NEEDED Start Date: 06/02/19 Status: Ordered docusate-senna 50 mg-187 mg oral tablet 2 tablet, By Mouth, 2 times a day, PRN Constipation, # 100 tablet, 11 Refills, Maintenance, 02/21/22 10:35:00 EST, Tablet, [facility] Partial fill upon patient request if the prescription is for a schedule II opioid drug., 2 tablet By... Start Date: 02/21/22 Status: Ordered duloxetine 60 mg oral enteric coated capsule 2 capsule = 120 mg, By Mouth, Daily, # 60 capsule, 5 Refills, Maintenance, 05/26/22 17:03:00 EST, Capsule, [facility] Partial fill upon patient request. NOT INCREASED DOSE. Please cancel all other Duloxetine scripts, 163, cm, 05/19/22... Start Date: 05/26/22 Status: Ordered empagliflozin 10 mg oral tablet 1 tablet = 10 mg, By Mouth, Daily in AM, # 30 tablet, 5 Refills, Maintenance, 02/20/22 12:04:00 EST, Tablet, [facility] Partial fill upon patient request if the prescription is for aschedule II opioid drug., 163, cm, 02/11/22 19:19:0... Start Date: 02/20/22 Status: Ordered fluticasone 50 mcg/inh nasal spray See Instructions, USE 1 SPRAY IN BOTH NOSTRILS 2 TIMES A DAY, # 16 mL, 1 Refills, 07/08/21 9:44:00 EDT, [facility] 30, USE 1 SPRAY IN BOTH NOSTRILS 2 TIMES A DAY, 162.5, cm, 228:49:00 EDT, Height, 85.8, kg, 06/04/21 10:03:00 ES... Start Date: 07/08/21 Status: Ordered ibuprofen 800 mg oral tablet 1, tablet, By Mouth, 3 times a day, PRN, # 90 tablet, Refills 1, Tot. Refills 1, Maintenance, NEEDED FOR PAIN, 07/11/22 15:09:00 EDT, Route to Pharmacy Electronically, [facility], 163, cm, 07/11/22 14:19:00 EDT, Height, 83, kg, 11/0... Start Date: 07/11/22 Status: Ordered Januvia 100 mg oral tablet 1 tablet = 100 mg, By Mouth, Daily, # 90 tablet, 3 Refills, Maintenance, 06/18/21 21:04:00 EDT, Tablet, [facility]., 162.5, cm, 06/17/21 13:04:00 EDT, Height, 85.8, kg, 06/04/21 10:03:00 EST, Dry Weight Start Date: 06/18/21 Status: Ordered Lantus 100 u/ml subcutaneous solution = 50 units, Subcutaneous Injection, Daily, # 15 mL, 2 Refills, Maintenance, 01/06/22 12:07:00 EDT, Solution, [facility]., ;, 163, cm, 01/03/22 11:20:00 EDT, Height, 84, kg, 01/02/22 19:36:00 EDT, Dry Weight Start Date: 01/06/22 Status: Ordered lidocaine 5% topical film 1 patch, Topically, Daily, PRN Pain , Mild, remove after 12 hours, # 13 each, 5 Refills, Maintenance, 04/29/22 11:56:00 EST, Film, [facility], Partial fill upon patient request if theprescription is for a schedule II opioid drug., 1 p... Start Date: 04/29/22 Status: Ordered lisinopril 20 mg oral tablet 20 mg, 1, tablet, By Mouth, Daily, # 90 tablet, Refills 1, Tot. Refills 1, Maintenance, 07/25/22 12:31:00 EDT, Route to Pharmacy Electronically, [facility], 163, cm, 07/11/22 14:19:00EDT, Height, 83, kg, 02/11/22 19:19:00 EST, Dry Weight Start Date: 07/25/22 Status: Ordered mirtazapine 30 mg oral tablet 1 tablet = 30 mg, By Mouth, Daily at bedtime, Maintenance, 05/24/19 9:12:00 EST, Tablet Start Date: 05/24/19 Status: Ordered omeprazole 40 mg oral enteric coated capsule 1 capsule, By Mouth, Daily, PRN NEEDED, # 30 capsule, 2 Refills, [facility], 162, cm, 09/06/21 13:04:00 EDT, Height, 86, kg, 07/23/21 0:58:00 EDT, Dry Weight Start Date: 10/02/21 Status: Ordered oxyCODONE 15 mg oral tablet 1 tablet = 15 mg, By Mouth, 3 times a day, on contract at [facility], # 84 tablet, 0 Refills, Maintenance, 07/22/22 9:08:00 EDT, [facility], Partial fill upon patient request if the prescription is for a schedule II opioid drug., 163, cm, 04... Start Date: 07/22/22 Stop Date: 08/19/22 Status: Ordered prazosin 2 mg oral capsule 0 Refills, Maintenance, 02/06/22 16:42:00 EDT, Partial fill upon patient request if the prescription is for a schedule II opioid drug. Start Date: 02/06/22 Status: Ordered Senna 8.6 mg oral tablet 8.6 mg, 1, tablet, By Mouth, Daily at bedtime, # 100 tablet, Refills 11, Tot. Refills 11, Maintenance, 07/08/21 9:39:00 EDT, Route to Pharmacy Electronically, [facility], 162.5, cm, 07/08/21 8:49:00 EDT, Height, 85.8, kg, 06/04/21 10:0... Start Date: 07/08/21 Status: Ordered tiZANidine 4 mg oral capsule See Instructions, PRN Pain , Severe, take as little as possible to control pain not to exceed 3 doses/day, # 60 capsule, 0 Refills, Maintenance, 07/25/22 17:17:00 EDT, [facility]., 163, cm, 07/11/22 14:19:00 EDT, Height, 83, kg, ... Start Date: 07/25/22 Status: Ordered traZODone 50 mg oral tablet See Instructions, 1/2- 1 tablet By Mouth Daily at bedtime, # 30 each, Refills 1, Tot. Refills 1, Maintenance, 06/30/22 14:07:00 EDT, Instructions Replace Required Details, Route to Pharmacy Electronically, [facility], Partial fill upon... Start Date: 06/30/22 Status: Ordered Trulicity Pen 1.5 mg/0.5 mL subcutaneous solution = 1.5 mg, Subcutaneous Infusion, Every week, # 4 each, 5 Refills, Maintenance, 07/25/22 18:12:00 EDT, [facility], Partial fill upon patient request if the prescription is for a schedule II opioid drug., 163, cm, 07/11/22 14:19:00 EDT,... Start Date: 07/25/22 Status: Ordered Trulicity Pen 3 mg/0.5 mL subcutaneous solution See Instructions, INJECT 0.5 ML SUBCUTANEOUSLY EVERY WEEK. 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 Fabian [phone] Confirmed Active Syncope and collapse Confirmed Active Tobacco dependence Confirmed Active DM2 (diabetes mellitus, type 2) Confirmed 04/03/17 Active Incontinence of urine 3 Confirmed Active 1seen on MRI 10/2016, rec repeat imaging in October [address] Abd 09/18/16 at [facility], pending MRI 3urge and stress Diagnosis Diagnosis Type Effective Dates Health Status Cl inical Service Informant INA (stress urinary incontinence, female) Discharge Diagnosis 02/11/19 Social History Social History Type Response Smoking Status Current every day sm oker; Type: Cigarettes; Tobacco use times per day: 1/2 ppd; entered on: 12/24/17 Sex Radiology * Event Display: MRI Spine, Non- BH Authored Date: * Event Display: X-Ray Spine, Non- Authored Date: * Event Display: MRI Spine, Non- BH Authored Date: * Event Display: IR Special Procedures, Non- Authored Date: Patient Care team information Care Team Personnel Name: Sindy Bernal RN Position: [facility] RN Member Role: Primary Care Nurse Name: Graciela Thrasher RN Position: [facility] SN RN Member Role: Primary Care Nurse Name: Stevie Angel RN Position: [facility] RN Member Role: Primary Care Nurse Name: Leonora Bai NP Position: [facility] Associate Professional Member Role: PCP Address: Address: [address] [place] [id number]- Name: Keily Ortega RN Position: S RN Member Role: Primary Care Nurse Name: Graciela Munroe RN Position: S RN Member Role: Primary Care Nurse Name: Nichole Pichardo RN Position: S RN Member Role: Primary Care Nurse Name: Melvin Whitfield RN Position: [facility] RN Member Role: Primary Care Nurse Name: Phuong Berkowitz RN Position: [facility] RN Member Role: Primary Care Nurse Name: Joselyn Rain RN Position: [facility] Hospital Computer Systems Analyst Member Role: Primary Care Nurse Care Team Related Persons Name: NICK IRA Address: home [address] [place] [address] Name: JHON LARSON Address: home [address] [place] [address] Name: JHON LARSON Address: home [address] [place] [address] Name: GALO CATALAN Name: NANCY CATALAN Address: home [address] [place] [address]
--- OUTSIDE RECORDS SUMMARY | 2023-03-25 08:19 | XMS_ITS | Continuity of Care Document ---
Author Name Unknown Organization [facility] Address [address] [place] [address]- Care Team Providers Care Group Account Director Name Role Phone Richardson QUIROZ, Leonora Pérez Primary Care Physician [phone] Encounter [facility] Date(s): 07/22/21 - 08/21/21 [facility] [address] [place], [place] [address] Allergies, Adverse Reactions, Alerts Substance Reaction Severity Status morphine Active gabapentin swelling Active Lyrica dysphagia Active SEROquel body swelling - all over Act tony MetFORMIN Hydrochloride ER black tarry stool Active Immunizations Given and Recorded Vaccine Date Status Refusal Reason SARS-CoV-2 mRNA ([id number]) vax 05/14/21 Given influenza virus vaccine, inactivated [...] 07/18/21 15:15:00 EDT, Route to Pharmacy Electronically, [facility], Partial fill upon patient request if the prescription is for a sched... Start Date: 07/18/21 Status: Ordered Advair Diskus 500 mcg-50 mcg inhalation powder 1, puffs, Inhalation, 2 times a day, [id number], # 1 each, Refills 5, Tot. Refills 5, Maintenance, 05/15/21 9:20:00 EST, Powder, Route to Pharmacy Electronically, [id number], [facility], 162.5, cm, 05/10/21 14:47... Start Date: 05/15/21 Status: Ordered albuterol 0.083% inhalation solution 3 mL = 2.5 mg, Inhalation, Every 4 hours, PRN for wheezing, # 100 each, 2 Refills, Maintenance, 05/15/21 9:30:00 EST, Solution, [facility], 162.5, cm, 05/10/21 14:47:00 EST, Height, 90.9, kg, 02/02/21 5:59:00 EDT, Dry Weight Start Date: 05/15/21 Status: Ordered amitriptyline 25 mg oral tablet 25 mg, 1, tablet, By Mouth, Daily at bedtime, Dose decrease, # 30 tablet, Refills 0, Tot. Refills 0, Maintenance, 08/01/21 15:07:00 EDT, Route to Pharmacy Electronically, [facility], Partial fill upon patient request if the prescriptio... Start Date: 08/01/21 Status: Ordered atorvastatin 40 mg oral tablet 1 tablet = 40 mg, By Mouth, Daily, # 90 tablet, 3 Refills, Maintenance, 07/08/21 9:47:00 EDT, Tablet, [facility], Partial fill upon patient request if the prescription is for a schedule II opioid drug., 162.5, cm, 07/08/21 8:49:00 EDT,... Start Date: 07/08/21 Status: Ordered cetirizine 10 mg oral tablet 1 tablet = 10 mg, By Mouth, Daily, # 30 tablet, 5 Refills, Maintenance, 07/08/21 9:44:00 EDT, Tablet, [facility] 162.5, cm, 07/08/21 8:49:00 EDT, Height, 85.8, kg, 06/04/21 10:03:00 EST, Dry Weight Start Date: 07/08/21 Status: Ordered cholecalciferol 5000 intl units oral capsule 1 capsule = 125 mcg, By Mouth, Daily, with food, # 100 capsule, 2 Refills, Maintenance, 02/11/21 11:17:00 EST, Capsule, [facility]/pharmacy #[id number], Partial fill upon patient request [...] 1 Refills, Maintenance, 07/08/21 9:45:00 EDT, Cream, [facility], PLEASE CANCEL ESTRADIOL VAGINAL CREAM, 1 application [...] 5 Refills, Maintenance, 02/18/21 15:09:00 EST, Capsule, [facility]/pharmacy #[id number], Partial fill upon patient request. NOT INCREASED DOSE, 155, cm, 02/18/2114:54:00 EST, Height, 90.9, kg, 02/02/21 5:59:00 ED... Start Date: 02/18/21 Status: Ordered empagliflozin 10 mg oral tablet 1 tablet = 10 mg, By Mouth, Daily in AM, # 30 tablet, 5 Refills, Maintenance, 07/08/21 9:43:00 EDT,Tablet, [facility], Partial fill upon patient request if the prescription is for a schedule II opioid drug., 162.5, cm, 07/08/21 8:49:0... Start Date: 07/08/21 Status: Ordered fluticasone 50 mcg/inh nasal spray See Instructions, USE 1 SPRAY IN BOTH NOSTRILS 2 TIMES A DAY, # 16 mL, 1 Refills, 07/08/21 9:44:00 EDT, [facility] 30, USE 1 SPRAY IN BOTH NOSTRILS 2 TIMES A DAY, 162.5, cm, :49:00 EDT, Height, 85.8, kg, 06/04/21 10:03:00 ES... Start Date: 07/08/21 Status: Ordered hydrochlorothiazide 12.5 mg oral tablet 1 tablet = 12.5 mg, By Mouth, Daily, TAKE 1 TABLET BY MOUTH EVERY DAY, # 30 capsule, 2 Refills, Maintenance, 05/15/21 9:20:00 EST, [facility] 162.5, cm, 05/10/21 14:47:00 EST, Height, 90.9, [...] 3 Refills, Maintenance, 06/18/21 21:04:00 EDT, Tablet, [facility] 162.5, cm, 06/17/21 13:04:00 EDT, Height, 85.8, kg, 06/04/21 10:03:00 EST, Dry Weight Start Date: 06/18/21 Status: Ordered Lantus 100 u/ml subcutaneous solution = 50 units, Subcutaneous Injection, Daily, # 15 mL, 5 Refills, Maintenance, 07/08/21 9:38:00 EDT, Solution, [facility] ;, 162.5, cm, 07/08/21 8:49:00 EDT, Height, 85.8, kg, 06/04/21 10:03:00 EST, Dry Weight Start Date: 07/08/21 Status: Ordered lisinopril 20 mg oral tablet 20 mg, 1, tablet, By Mouth, Daily, # 90 tablet, Refills 3, Tot. Refills 3, Maintenance, 04/12/21 13:24:00 EST, Route to Pharmacy Electronically, [facility]/pharmacy #[id number], 162.5, cm, 03/22/21 14:58:00 EST, Height, 90.9, kg, 02/02/21 5:59:00 EDT, Dry Weight Start Date: 04/12/21 Status: Ordered meloxicam 7.5 mg oral tablet 1 tablet = 7.5 mg, By Mouth, Daily, # 30 tablet, 1 Refills, Maintenance, 06/24/21 16:30:00 EDT, Tablet, [facility] Partial fill upon patient request [...] Refills, Maintenance, 05/09/21 10:45:00 EST, EC Capsule, [facility], 162.5, cm, 03/22/21 14:58:00 EST, Height, 90.9,kg, 02/02/21 5:59:00 EDT, Dry Weight Start Date: 05/09/21 Status: Ordered OxyCONTIN 15 mg oral tablet, extended release 1 tablet = 15 mg, By Mouth, Every 12 hours, # 56 tablet, 0 Refills, Maintenance, 08/03/21 7:30:00 EDT, ER Tablet, [facility], Partial fill upon patient request if the prescription is for a schedule II opioid drug. Patient on contract.... Start Date: 08/03/21 Stop Date: 08/31/21 Status: Ordered prazosin 2 mg oral capsule See Instructions, 0 Refills, Maintenance, 03/14/21 10:48:00 EST, Partial fill upon patient request if the prescription is for a schedule II opioid drug. Start Date: 03/14/21 Status: Ordered Senna 8.6 mg oral tablet [...] 06/24/21 19:16:00 EDT, Route to Pharmacy Electronically, [facility], 162.5, cm, 06/24/21 15:35:00 EDT, Height, 85.8, kg, ... Start Date: 06/24/21 Stop Date: 08/19/21 Status: Ordered topiramate 25 mg oral tablet See Instructions, Take 1 tablet by mouth in the AM, Take 2 tablets by mouth in PM for 1 week Then, take 2 tablets in AM and 2 tablets in PM Then follow up as schedule, # 105 tablet, 0 Refills, Maintenance, 08/01/21 14:59:00 EDT, Tablet, [facility]... Start Date: 08/01/21 Status: Ordered Trulicity Pen 3 mg/0.5 mL subcutaneous solution 0.5 mL = 3 mg, Subcutaneous Injection, Every week, rotate injection sites, # 2 mL, 5 Refills, Maintenance, 08/05/21 17:53:00 EDT, Solution, [facility], Partial fill upon patient request if the prescription is for a schedule II opioid d... 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
--- OUTSIDE RECORDS SUMMARY | 2023-03-25 08:19 | XMS_ITS | Continuity of Care Document ---
Author Name Unknown Organization [facility] Address [address] [place] [address]- Care Team Providers Care Odd Ticket Clerk Name Role Phone Richardson QUIROZ, Leonora Pérez Primary Care Physician [phone] [place]counter [facility] [place] Date(s): 03/13/21 - 04/12/21 [facility] [address], [place] [address] Encounter Diagnosis INA (stress urinary incontinence, female)(Discharge Diagnosis) - 02/11/19 Attending Physician: Clarence Reynaga Admitting Physician: Clarence Reynaga Referring Physician: AdmClarence brown Allergies, Adverse Reactions, Alerts Substance Reaction Severity [...] 01/16/21 19:30:00 EDT, Route to Pharmacy Electronically, [facility]/pharmacy #[id number], Partial fill upon patient request if the prescription is for a schedule II o... Start Date: 01/16/21 Status: Ordered Advair Diskus 500 mcg-50 mcg inhalation powder 1, puffs, Inhalation, 2 times a day, [id number], # 1 each, Refills 11, Tot. Refills 11, Maintenance, 04/05/20 14:12:00 EST, Powder, Route to Pharmacy Electronically, [id number], [facility]/pharmacy #[id number], 162.56, cm, 03/27/20 11:36:00... Start Date: 04/05/20 Status: Ordered albuterol 0.083% inhalation solution 3 mL = 2.5 mg, Inhalation, Every 4 hours, PRN for wheezing, # 100 each, 2 Refills, Maintenance, 08/15/20 10:22:00 EDT, Solution, [facility]/pharmacy #[id number], 163, cm, 08/09/20 8:45:00 EDT, Height, 84.8, kg, 06/25/20 20:28:00 EDT, Dry Weight Start Date: 08/15/20 Status: Ordered amitriptyline 50 mg oral tablet See Instructions, 1.5 tablets by Mouth Daily at bedtime, # 45 each, 1 Refills, 03/21/21 16:11:00 EST, [facility]/pharmacy #[id number], 162.5, cm, 03/14/21 10:31:00 EST, Height, 90.9, kg, 02/02/21 5:59:00 EDT, DryWeight Start Date: 03/21/21 Status: Ordered atorvastatin 20 mg oral tablet 3 tablet = 60 mg, By Mouth, Daily, # 90 tablet, 3 Refills, Maintenance, 04/05/20 14:11:00 EST, Tablet, [facility]/pharmacy #[id number], Partial fill upon patient [...] 1 Refills, Maintenance, 12/05/20 12:42:00 EDT, Cream, [id number], 1 application Topically [...] 5 Refills, Maintenance, 02/18/21 15:09:00 EST, Capsule, [facility]/pharmacy #[id number], Partial fill upon patient request. NOT INCREASED DOSE, 155, cm, 02/18/2114:54:00 EST, Height, 90.9, kg, 02/02/21 5:59:00 ED... Start Date: 02/18/21 Status: Ordered estradiol 0.1 mg/g vaginal cream = 1 Gm, Vaginally, Daily at bedtime, # 30 Gm, 11 Refills, Maintenance, 12/31/20 15:58:00 EDT, [facility]/pharmacy #[id number], Partial fill upon patient request if the prescription is for a schedule II opioid drug., 165, cm, 12/31/20 14:56:00 EDT, Height, 87.6, kg... Start Date: 12/31/20 Status: Ordered fluticasone 50 mcg/inh nasal spray See Instructions, USE 1 SPRAY IN BOTH NOSTRILS 2 TIMES A DAY, # 16 mL, 1 Refills, Maintenance, [id number], 30, USE 1 SPRAY IN BOTH NOSTRILS 2 TIMES A DAY, 163, cm, 08/15/20 14:23:00 EDT, Height,84.8, kg, 06/25/20 20:28:00 EDT, Dry Weight Start Date: 09/07/20 Status: Ordered hydrochlorothiazide 12.5 mg oral tablet 1 tablet = 12.5 mg, By Mouth, Daily, TAKE 1 TABLET BY MOUTH EVERY DAY, # 30 capsule, 2 Refills, Maintenance, 03/22/21 16:20:00 EST, [id number], 162.5, cm, 03/14/21 10:31:00 EST, Height, 90.9,kg, 02/02/21 5:59:00 EDT, Dry Weight Start Date: 03/22/21 Status: Ordered hydrochlorothiazide 12.5 mg oral tablet [...] 2 Refills, Maintenance, 03/01/21 12:42:00 EST, Tablet, [facility]/pharmacy #[id number], 155, cm, 02/18/21 14:54:00 EST, Height, 90.9, kg, 02/02/21 5:59:00 EDT, DryWeight Start Date: 03/01/21 Status: Ordered Lantus 100 u/ml subcutaneous solution = 40 units, Subcutaneous Injection, Daily, # 12 mL, 2 Refills, Maintenance, 03/01/21 12:42:00 EST, Solution, [facility]/pharmacy #[id number], increased dose 12/26/19, 155, cm, 02/18/21 14:54:00 EST, Height, 90.9, kg, 02/02/21 5:59:00 EDT, Dry Weight Start Date: 03/01/21 Status: Ordered lidocaine 5% topical film 1 patch, Topically, Daily, For chronic radicular back pain, # 30 patch, 5 Refills, Maintenance, 10/11/20 8:15:00 EDT, [facility]/pharmacy #[id number], 1 patch Topically Daily,Instr:For chronic radicular back pain, 163, cm, 08/15/20 14:23:00 EDT, Height, 84.8, kg,... Start Date: 10/11/20 Status: Ordered lisinopril 20 mg oral tablet 20 mg, 1, tablet, By Mouth, Daily, # 90 tablet, Refills 3, Tot. Refills 3, Maintenance, 04/12/21 13:24:00 EST, Route to Pharmacy Electronically, [facility]/pharmacy #[id number], 162.5, cm, 03/22/21 14:58:00 EST, Height, 90.9, kg, 02/02/21 5:59:00 EDT, Dry Weight Start Date: 04/12/21 Status: Ordered lisinopril 20 mg oral tablet [...] Refills, Maintenance, 08/15/20 15:59:00 EDT, Capsule, [facility]/pharmacy #[id number], Partial fill upon patient request if the prescription is for a schedule II opioid drug., 163, cm, 08/15/20 14:23:00 EDT, .. Start Date: 08/15/20 Status: Ordered mirabegron 25 mg oral tablet, extended release 1 tablet = 25 mg, By Mouth, Daily, do not crush or chew, # 30 tablet, 11 Refills, Maintenance, 12/31/20 15:58:00 EDT, ER Tablet, [facility]/pharmacy #[id number], Partial fill upon patient [...] 1 Refills, Maintenance, 01/31/21 14:16:00 EDT, Tablet, [facility], Partial fill upon patient request if the prescription is for a schedule II opioid drJose. Start Date: 01/31/21 Status: Ordered omeprazole 40 mg oral enteric coated capsule 1 capsule = 40 mg, By Mouth, Daily, PRN Dyspepsia, # 90 capsule, 0 Refills, Maintenance, 01/11/21 13:46:00 EDT, EC Capsule, [id number], 165, cm, 12/31/20 14:56:00 EDT, Height, 87.6, kg, 12/31/20 14:56:00 EDT, Dry Weight Start Date: 01/11/21 Status: Ordered oxyCODONE 15 mg oral tablet 1 tablet = 15 mg, By Mouth, 2 times a day, for 28 days, # 56 tablet, 0 Refills, Acute 04/19/21 11:49:00 EST, 03/22/21 11:49:00 EST, [id number], Client on contract at [facility], failed Morphine, switching to oxycodone 15mg BID today 02/18/21, 162.5,... Start Date: 03/22/21 Stop Date: 04/19/21 Status: Ordered prazosin 2 mg oral capsule [...] 10/30/20 11:37:00 EDT, Route to Pharmacy Electronically, [facility]/pharmacy #[id number], 163, cm, 08/15/20 14:23:00 EDT, Height, 84.8, kg, 06/25/20 20:28:00 EDT... Start Date: 10/30/20 Status: Ordered Spiriva Respimat 60 ACT 2.5 mcg/inh inhalation aerosol 2 puffs, Inhalation, Daily, # 1 each, 11 Refills, Maintenance, 04/05/20 14:17:00 EST, [facility]/pharmacy #[id number], Partial fill upon patient [...] 12/05/20 12:45:00 EDT, Route to Pharmacy Electronically, [facility]/pharmacy #[id number], 165, cm, 11/22/20 8:40:00 EDT, Height, 84.8, kg, 06/25/20 20:28:00... Start Date: 12/05/20 Stop Date: 01/30/21 Status: Ordered Trulicity Pen 0.75 mg/0.5 mL subcutaneous solution 0.5 mL = 0.75 mg, Subcutaneous Injection, Every week, rotate injection sites, # 2 mL, 5 Refills, Maintenance, 10/31/20 15:27:00 EDT, Solution, [facility]/pharmacy #[id number], Partial fill upon patient request ifthe prescription is for a schedule II opioid drug.,... Start Date: 10/31/20 Status: Ordered Urinary Liners Urinary Liners, See Instructions, # 180 each, Refills 11, Tot. Refills 11, Maintenance, 6 per day dx: N32.81, N39.46 duration:lifetime, 05/31/20 10:13:00 EST, Supply Start Date: 05/31/20 Status: Ordered VITAMIN D3 5,000 UNIT SOFTGEL See Instructions, Maintenance, 5000, 03/14/21 10:47:00 EST, Supply Start Date: 03/14/21 Status: Ordered Problem List Condition Effective Dates [...] on CPAP(Confirmed) Active Panic attacks(Confirmed) Active BHN/BHCP Consulting Technical Director Jb Fabian [phone](Confirmed) Active Syncope and collapse(Confirmed) Active Tobacco dependence(Confirmed) Active DM2 (diabetes mellitus, type 2)(Confirmed) 04/03/17 Active Incontinence of urine(Confirmed) 3 Active 1seen on MRI 10/2016, rec repeat imaging in October [address] [place] 09[place]18[place]16 [place] [facility] [place], pending [place] 3urge and stress Diagnosis Diagnosis Type Effective Dates Health Status Cl inical Service Informant INA (stress urinary incontinence, female) Discharge Diagnosis 02/11/19 Social History Social History Type Response Smoking Status Current every day kaitlin valle; Type: Cigarettes; Tobacco use times per day: 04/07 ppd; entered on: 12/24/17 Sex
--- OUTSIDE RECORDS SUMMARY | 2023-03-25 08:19 | XMS_ITS | Continuity of Care Document ---
Author Name Unknown Organization [facility] Address [address] [place] [address]- Care Team Providers Care Trust Manager Assistant Name Role Phone Richardson QUIROZ, Leonora Pérez Primary Care Physician Encounter [facility] Date(s): 10/09/20 - 11/08/20 [facility] [address] [place] [address]- Allergies, Adverse Reactions, Alerts Substance Reaction Severity [...] 14:12:00 EST, Powder, Route to Pharmacy Electronically, [id number], [facility]/pharmacy #[id number], 162.56, cm, 03/27/20 11:36:00... Start Date: 04/05/20 Status: Ordered albuterol 0.083% inhalation solution 3 mL = 2.5 mg, Inhalation, Every 4 hours, PRN for wheezing, # 100 each, 2 Refills, Maintenance, 08/15/20 10:22:00 EDT, Solution, [facility]/pharmacy #[id number], 163, cm, 08/09/20 8:45:00 EDT, [...] 3 Refills, Maintenance, 11/01/19 15:25:00 EDT, Cream, [facility]/pharmacy #[id number], 1 application Topically 3 times [...] 16 mL, 1 Refills, Maintenance, [id number], 30, USE 1 SPRAY IN BOTH NOSTRILS [...] 2 Refills, Maintenance, 10/29/20 14:07:00 EDT, Tablet, [facility]/pharmacy #[id number], 163, cm, 08/15/20 14:23:00 EDT, Height, 84.8, kg, 06/25/20 20:28:00 EDT, Dry Weight Start Date: 10/29/20 Status: Ordered Lantus 100 u/ml subcutaneous solution = 40 units, Subcutaneous Injection, Daily, # 12 mL, 11 Refills, Maintenance, 05/07/20 13:24:00 EST,Solution, [facility]/pharmacy #[id number], increased dose 12/26/19, 162, cm, 04/21/20 11:33:00 EST, Height, 80, kg, 04/18/20 9:48:00 EST, Dry Weight Start Date: 05/07/20 Status: Ordered lidocaine 5% topical film 1 patch, Topically, Daily, For chronic radicular back pain, # 30 patch, 5 Refills, Maintenance, 10/11/20 8:15:00 EDT, [facility]/pharmacy #[id number], 1 patch Topically Daily,Instr:For chronic radicular back pain, 163, cm, 08/15/20 14:23:00 EDT, Height, 84.8, kg,... Start Date: 10/11/20 Status: Ordered lisinopril 20 mg oral tablet 20 mg, 1, tablet, By Mouth, Daily, # 30 tablet, Refills 11, Tot. Refills 11, Maintenance, 05/07/20 13:30:00 EST, Route to Pharmacy Electronically, [facility]/pharmacy #[id number], 162, cm, 04/21/20 11:33:00 EST, Height, 80, kg, 04/18/20 9:48:00 EST, Dry Weight Start Date: 05/07/20 Status: Ordered loratadine 10 mg oral capsule 1 capsule = 10 mg, By Mouth, Daily, # 40 capsule, 0 Refills, Maintenance, 08/15/20 15:59:00 EDT, Capsule, [facility]/pharmacy #[id number], Partial fill upon patient request if the prescription is for a schedule II opioid drug., 163, cm, 08/15/20 14:23:00 EDT, Heig... Start Date: 08/15/20 Status: Ordered Mapap 325 mg oral tablet 2 tablet = 650 mg, By Mouth, Every 4 hours, PRN for pain, not to exceed 3000 mg/day. instructions in bangladeshi, # 120 tablet, 2 Refills, Maintenance, 11/01/19 [...] 2 Refills, Maintenance, 04/05/20 14:08:00 EST, Tablet, [facility]/pharmacy #[id number], Partial fill upon patient request if the prescription is for a schedule II opioid drug., 162.56, cm, ... Start Date: 04/05/20 Status: Ordered omeprazole 40 mg oral enteric coated capsule 1 capsule = 40 mg, By Mouth, Daily, # 90 capsule, 0 Refills, Maintenance, 08/13/20 10:34:00 EDT, ECCapsule, [facility]/pharmacy #[id number], 163, cm, 08/09/20 8:45:00 EDT, [...] day, for 28 days, on contract at [facility], # 56 tablet, 0 Refills, Acute 11/27/20 11:37:00 EDT, 10/30/20 11:37:00 EDT, [facility]/pharmacy #[id number], Partial fill upon patient request [...] 10/30/20 11:37:00 EDT, Route to Pharmacy Electronically, [facility]/pharmacy #[id number], 163, cm, 08/15/20 14:23:00 EDT, Height, 84.8, kg, 06/25/20 20:28:00 EDT... Start Date: 10/30/20 Status: Ordered Soma 350 mg oral tablet 350 mg, 1, tablet, By Mouth, 3 times a day, # 9 tablet, Refills 0, Tot. Refills 0, Maintenance, 05/04/20 15:46:00 EST, Route to Pharmacy Electronically, [facility]/pharmacy #[id number], Partial fill upon patient request if the prescription is for a schedule II opi... Start Date: 05/04/20 Status: Ordered Spiriva Respimat 60 ACT 2.5 mcg/inh inhalation aerosol 2 puffs, Inhalation, Daily, # 1 each, 11 Refills, Maintenance, 04/05/20 14:17:00 EST, [facility]/pharmacy #[id number], Partial fill upon patient request [...] 08/16/20 11:59:00 EDT, Route to Pharmacy Electronically, [facility]/pharmacy #[id number], 163, cm, 08/15/20 14:23:00 EDT, Height, 84.8, kg, 06/25/20 20:28:00... Start Date: 08/16/20 Stop Date: 10/11/20 Status: Ordered Trulicity Pen 0.75 mg/0.5 mL subcutaneous solution 0.5 mL = 0.75 mg, Subcutaneous Injection, Every week, rotate injection sites, # 2 mL, 5 Refills, Maintenance, 10/31/20 15:27:00 EDT, Solution, [facility]/pharmacy #[id number], Partial fill upon patient request ifthe prescription [...] [address] Abd 09/18/16 at [facility] [place], pending MRI 3urge and stress Social History Social History Type Response Tobacco Use: Pt states she q uit smoking 1 week ago. Sex
--- OUTSIDE RECORDS SUMMARY | 2023-03-25 08:19 | XMS_ITS | Continuity of Care Document ---
Author Name Unknown Organization [facility] Address [address] [place] [address]- Care Team Providers Care Pharmacy Care Coordinator Name Role Phone Richardson QUIROZ, Leonora Pérez Primary Care Physician Encounter [facility] Date(s): 08/25/19 - 09/01/19 [facility] [address] [place] [address]- [facility] Attending Physician: Megha GERARDO, Alon Rdz Allergies, Adverse Reactions, Alerts Substance Reaction Severity [...] 12:48:00 EST, Powder, Route to Pharmacy Electronically, [id number], [facility]/pharmacy #[id number], 158, cm, 04/26/19 9:58:00 EST, [...] 5 Refills, Maintenance, 04/19/19 15:40:00 EST, Tablet, [facility]/pharmacy #[id number], 158, cm, 04/04/19 15:21:00 EST, Height, 82, kg, 04/01/19 16:10:00 EST, Dry Weight Start Date: 04/19/19 Status: Ordered clonazePAM 0.5 mg oral tablet TAKE 1 TABLET BY MOUTH TWICE A DAY NEEDED Start Date: 06/02/19 Status: Ordered clotrimazole 1% topical cream 1 application, Topically, 2 times a day, # 30 Gm, 0 Refills, Maintenance, 05/30/19 19:02:00 EST, Cream, [facility]/pharmacy #[id number], 1 application Topically 2 times [...] 5 Refills, Maintenance, 04/28/19 16:05:00 EST, Tablet, [facility]/pharmacy #[id number], 158, cm, 04/28/19 14:51:00 EST, Height, 82, kg, 04/01/19 16:10:00 EST, Dry Weight Start Date: 04/28/19 Status: Ordered lidocaine 5% topical film 1 patch, Topically, Daily, For chronic radicular back pain, # 30 patch, 5 Refills, Maintenance, 06/27/19 14:37:00 EDT, [facility]/pharmacy #[id number], 1 patch Topically Daily,Instr:For chronic radicular back pain, 160, cm, 06/01/19 14:08:00 EST, Height, 88.9, kg,... Start Date: 06/27/19 Status: Ordered lisinopril 10 mg oral tablet 10 mg, 1, tablet, By Mouth, Daily, # 90 tablet, Refills 3, Tot. Refills 3, Maintenance, 05/08/19 20:27:00 EST, Route to Pharmacy Electronically, [facility]/pharmacy #[id number], to replace 2.5mg dose, 158, [...] not to exceed 3000 mg/day. instructions in chilean, # 120 tablet, 2 Refills, Maintenance, 07/25/19 8:41:00 EDT, Tablet, [facility]/pharmacy #[id number], 160, cm, 07/22/19 15:08:00 EDT, [...] pain, for 28 days, on contract at [facility]., # 56 tablet, 0 Refills, Acute 09/12/19 14:55:00 EDT, 08/15/19 14:55:00 EDT, [facility]/pharmacy #[id number], Partial fill upon patient request, 160, cm, 07/22/19 15:08:00 EDT,... Start Date: 08/15/19 Stop Date: 09/12/19 Status: Ordered prazosin 1 mg oral capsule 1 mg, 1, capsule, By Mouth, Daily at bedtime, for nightmares, # 30 capsule, Refills 0, Tot. Refills0, Maintenance, 05/30/19 18:52:00 EST, Route to Pharmacy Electronically, [facility]/pharmacy #[id number], 160, cm, 05/30/19 18:08:00 EST, Height, [...] tablet, 5 Refills, Maintenance, 05/04/19 9:35:00 EST, [facility]/pharmacy #[id number], 158, cm, 04/28/19 14:51:00 EST, Height, 82, kg, 04/01/19 16:10:00 EST, Dry Weight Start Date: 05/04/19 Status: Ordered Senna 8.6 mg oral tablet 8.6 mg, 1, tablet, By Mouth, Daily at bedtime, # 100 tablet, Refills 2, Tot. Refills 2, Maintenance, 06/10/19 16:12:00 EST, Route to Pharmacy Electronically, [facility]/pharmacy #[id number], 160, cm, 06/01/19 14:08:00 EST, Height, 88.9, kg, 05/23/19 22:09:00 EST,... Start Date: 06/10/19 Status: Ordered Spiriva Respimat 60 ACT 2.5 mcg/inh inhalation aerosol 2 puffs, Inhalation, Daily, # 1 each, 5 Refills, Maintenance, 04/26/19 10:30:00 EST, [facility]/pharmacy #[id number], 158, cm, 04/26/19 9:58:00 EST, Height, 82, kg, 04/01/19 16:10:00 EST, Dry Weight Start Date: 04/26/19 Status: Ordered tiZANidine 2 mg oral tablet 2 mg, 1, tablet, By Mouth, 2 times a day, PRN, # 30 tablet, Refills 2, Tot. Refills 2, Maintenance,as needed for muscle spasm, 07/25/19 8:41:00 EDT, Route to Pharmacy Electronically, [facility]/pharmacy #[id number], 160, cm, 07/22/19 15:08:00 EDT, [...] on CPAP(Confirmed) Active Panic attacks(Confirmed) Active *BHN/BHCP/SARAHarmony MacdonaldSxcfvds-[phone]/Health retirement, active care coordination(Confirmed) Active Acute meniscal tear of right knee(Confirmed) 6 06/2015 Active Tobacco dependence(Confirmed) Active DM2 (diabetes mellitus, type 2)(Confirmed) 04/03/17 Active Incontinence of urine(Confirmed) 7 Active 1surgically repaired November 2015, Dr. 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 Sg MENDEZ 7urge and stress Social History Social History Type Response Tobacco Use: Pt states she q uit smoking 1 week ago. Sex Female
--- OUTSIDE RECORDS SUMMARY | 2023-03-25 08:19 | XMS_ITS | Continuity of Care Document ---
Author Name Unknown Organization [facility] Address [address] [place] [address]- Care Team Providers Care Watershed Tender Name Role Phone Richardson CHIEF MEDICAL OFFICER, Leonora Pérez Primary Care Physician [facility]): 01/29/21 - 02/28/21 [facility] [address] [place] [address]- Allergies, Adverse Reactions, Alerts Substance Reaction Severity [...] Give n SARS-CoV-2 (COVID-19) mRNA BNT-162b2 vac 10/19/20 Given SARS-CoV-2 (COVID-19) mRNA BNT-162b2 vac 09/28/20 Given pneumococcal 23-valent vaccine 03/12/19 Given tetanus/diphtheria/pertussis, acel(Tdap) 07/29/13 Given 1Early/Late Reason: Early/Late Reason: Patient Not Available/Off Unit Medications acetaminophen 325 mg oral tablet 650 mg, 2, tablet, By Mouth, 3 times a day, # 100 tablet, Refills 1, Tot. Refills 1, Maintenance, 01/16/21 19:30:00 EDT, Route to Pharmacy Electronically, [facility]/pharmacy #[id number], Partial fill upon patient request if the prescription is for a schedule II o... Start Date: 01/16/21 Status: Ordered Advair Diskus 500 mcg-50 mcg inhalation powder 1, puffs, Inhalation, 2 times a day, [id number], # 1 each, Refills 11, Tot. Refills 11, Maintenance, 04/05/20 14:12:00 EST, Powder, Route to Pharmacy Electronically, [id number], [facility]/pharmacy #[id number], 162.56, cm, 03/27/20 11:36:00... Start Date: 04/05/20 Status: Ordered albuterol 0.083% inhalation solution 3 mL = 2.5 mg, Inhalation, Every 4 hours, PRN for wheezing, # 100 each, 2 Refills, Maintenance, 08/15/20 10:22:00 EDT, Solution, [facility]/pharmacy #[id number], 163, cm, 08/09/20 8:45:00 EDT, Height, 84.8, kg, 06/25/20 20:28:00 EDT, Dry Weight Start Date: 08/15/20 Status: Ordered amitriptyline 50 mg oral tablet 1 tablet, By Mouth, Daily at bedtime, # 90 tablet, 1 Refills, [facility] STORE [id number], 155, cm, 02/04/21 11:46:00 EDT, Height, 90.9, kg, 02/02/21 5:59:00 EDT, Dry Weight Start Date: 02/07/21 Status: Ordered atorvastatin 20 mg oral tablet 1 tablet = 20 mg, By Mouth, Daily, # 90 tablet, 3 Refills, Maintenance, 04/05/20 14:11:00 EST, Tablet, [facility]/pharmacy #[id number], Partial fill upon patient request if the prescription is for a schedule II opioid drug., 162.56, cm, 03/27/20 11:36:00 EST, Heig... Start Date: 04/05/20 Status: Ordered capsaicin 0.025% topical cream 1 application, Topically, 3 times a day, # 45 Gm, 3 Refills, Maintenance, 11/01/19 15:25:00 EDT, Cream, [facility]/pharmacy #[id number], 1 application Topically 3 times [...] DAY, # 16 mL, 1 Refills, Maintenance, [facility] STORE [id number], 30, USE 1 SPRAY IN BOTH NOSTRILS [...] 2 Refills, Maintenance, 10/29/20 14:07:00 EDT, Tablet, [facility]/pharmacy #[id number], 163, cm, 08/15/20 14:23:00 EDT, Height, 84.8, kg, 06/25/20 20:28:00 EDT, Dry Weight Start Date: 10/29/20 Status: Ordered Lantus 100 u/ml subcutaneous solution = 40 units, Subcutaneous Injection, Daily, # 12 mL, 11 Refills, Maintenance, 05/07/20 13:24:00 EST,Solution, [facility]/pharmacy #[id number], increased dose 12/26/19, 162, cm, 04/21/20 11:33:00 EST, Height, 80, kg, 04/18/20 9:48:00 EST, Dry Weight Start Date: 05/07/20 Status: Ordered lidocaine 5% topical film 1 patch, Topically, Daily, For chronic radicular back pain, # 30 patch, 5 Refills, Maintenance, 10/11/20 8:15:00 EDT, [facility]/pharmacy #[id number], 1 patch Topically Daily,Instr:For chronic [...] 0 Refills, Maintenance, 08/15/20 15:59:00 EDT, Capsule, [facility]/pharmacy #[id number], Partial fill upon patient request if the prescription is for a schedule II opioid drug., 163, cm, 08/15/20 14:23:00 EDT, Heig... Start Date: 08/15/20 Status: Ordered mirabegron 25 mg oral tablet, extended release 1 tablet = 25 mg, By Mouth, Daily, do not crush or chew, # 30 tablet, 11 Refills, Maintenance, 12/31/20 15:58:00 EDT, ER Tablet, [facility]/pharmacy #[id number], Partial fill upon patient request [...] 1 Refills, Maintenance, 01/31/21 14:16:00 EDT, Tablet, [facility], Partial fill upon patient request if the prescription is for a schedule II opioid drJose. Start Date: 01/31/21 Status: Ordered omeprazole 40 mg oral enteric coated capsule 1 capsule = 40 mg, By Mouth, Daily, PRN Dyspepsia, # 90 capsule, 0 Refills, Maintenance, 01/11/21 13:46:00 EDT, EC Capsule, [facility]/pharmacy #[id number], 165, cm, 12/31/20 14:56:00 EDT, Height, 87.6, kg, 12/31/20 14:56:00 EDT, Dry Weight Start Date: 01/11/21 Status: Ordered oxyCODONE 15 mg oral tablet 1 tablet = 15 mg, By Mouth, 2 times a day, for 28 days, # 56 tablet, 0 Refills, Acute 03/18/21 15:20:00 EST, 02/18/21 15:20:00 EST, [facility], Client on contract at [facility], failed Morphine, switching to oxycodone 15mg BID today 02/18/21... Start Date: 02/18/21 Stop Date: 03/18/21 Status: Ordered Senna 8.6 mg oral tablet 8.6 mg, 1, tablet, By Mouth, Daily at bedtime, # 100 tablet, Refills 11, Tot. Refills 11, Maintenance, 10/30/20 11:37:00 EDT, Route to Pharmacy Electronically, [facility]/pharmacy #[id number], 163, cm, 08/15/20 14:23:00 EDT, Height, 84.8, kg, 06/25/20 20:28:00 EDT... Start Date: 10/30/20 Status: Ordered Spiriva Respimat 60 ACT 2.5 mcg/inh inhalation aerosol 2 puffs, Inhalation, Daily, # 1 each, 11 Refills, Maintenance, 04/05/20 14:17:00 EST, [facility]/pharmacy #[id number], Partial fill upon patient request [...] 12/05/20 12:45:00 EDT, Route to Pharmacy Electronically, [facility]/pharmacy #[id number], 165, cm, 11/22/20 8:40:00 EDT, Height, 84.8, kg, 06/25/20 20:28:00... 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
--- OUTSIDE RECORDS SUMMARY | 2023-03-25 08:19 | XMS_ITS | Continuity of Care Document ---
Author Name Unknown Organization [facility] Address [address] [place] [address]- Care Team Providers Care Ordnance Handler Name Role Phone Richardson QUIROZ, Leonora Pérez Primary Care Physician [facility] Date[facility]): 08/13/20 - 09/12/20 [facility] [address] [place] [address]- Allergies, Adverse Reactions, Alerts Substance Reaction Severity [...] 14:12:00 EST, Powder, Route to Pharmacy Electronically, [id number], [facility]/pharmacy #[id number], 162.56, cm, 03/27/20 11:36:00... Start Date: 04/05/20 Status: Ordered albuterol 0.083% inhalation solution 3 mL = 2.5 mg, Inhalation, Every 4 hours, PRN for wheezing, # 100 each, 2 Refills, Maintenance, 08/15/20 10:22:00 EDT, Solution, [facility]/pharmacy #[id number], 163, cm, 08/09/20 8:45:00 EDT, Height, 84.8, kg, 06/25/20 20:28:00 EDT, Dry Weight Start Date: 08/15/20 Status: Ordered amitriptyline 75 mg oral tablet 1 tablet = 75 mg, By Mouth, Daily at bedtime, # 30 tablet, 5 Refills, Maintenance, 08/16/20 11:58:00 EDT, Tablet, [facility]/pharmacy #[id number], Partial fill upon patient request if the prescription is for a schedule II opioid drug. INSTEAD OF 50mg SCRIPT PLEASE... Start Date: 08/16/20 Status: Ordered atorvastatin 20 mg oral tablet 1 tablet = 20 mg, By Mouth, Daily, # 90 tablet, 3 Refills, Maintenance, 04/05/20 14:11:00 EST, Tablet, [facility]/pharmacy #[id number], Partial fill upon patient request if the prescription is for a schedule II opioid drug., 162.56, cm, 03/27/20 11:36:00 EST, Heig... Start Date: 04/05/20 Status: Ordered capsaicin 0.025% topical cream 1 application, Topically, 3 times a day, # 45 Gm, 3 Refills, Maintenance, 11/01/19 15:25:00 EDT, Cream, [facility]/pharmacy #[id number], 1 application Topically 3 times a day, 163, cm, 11/01/19 14:40:00 EDT, Height, 80, kg, 10/29/19 0:29:00 EDT, Dry Weight Start Date: 11/01/19 Status: Ordered cetirizine 10 mg oral tablet 1 tablet = 10 mg, By Mouth, Daily, # 30 tablet, 5 Refills, Maintenance, 06/20/20 13:18:00 EDT, Tablet, [facility]/pharmacy #[id number], 162, cm, 05/24/20 9:01:00 EST, Height, 80, kg, 04/18/20 9:48:00 EST, Dry Weight Start Date: 06/20/20 Status: Ordered clonazePAM 0.5 mg oral tablet TAKE 1 TABLET BY MOUTH TWICE A DAY NEEDED Start Date: 06/02/19 Status: Ordered clotrimazole 1% topical cream 1 application, Topically, 2 times a day, # 30 Gm, 1 Refills, Maintenance, 07/30/20 19:49:00 EDT, Cream, [facility]/pharmacy #[id number], 1 application Topically 2 times a [...] 5 Refills, Maintenance, 03/02/20 11:18:00 EST, Capsule, [facility]/pharmacy #[id number], Partial fill upon patient request. NOT INCREASED DOSE, 163, cm, 12/25/2012:58:00 EDT, Height, 80, kg, 10/29/19 0:29:00 EDT,... Start Date: 03/02/20 Status: Ordered fluticasone 50 mcg/inh nasal spray See Instructions, USE 1 SPRAY IN BOTH NOSTRILS 2 TIMES A DAY, # 16 mL, 1 Refills, Maintenance, [facility] STORE [id number], 30, USE 1 SPRAY IN BOTH NOSTRILS 2 TIMES A DAY, 163, cm, 08/15/20 14:23:00 EDT, Height,84.8, kg, 06/25/20 20:28:00 EDT, Dry Weight Start Date: 09/07/20 Status: Ordered hydrochlorothiazide 12.5 mg oral tablet 1 tablet = 12.5 mg, By Mouth, Daily, # 90 tablet, 3 Refills, Maintenance, 01/19/20 10:28:00 EDT, Tablet, [facility]/pharmacy #[id number], 163, cm, 12/26/19 13:58:00 EDT, Height, 80, kg, 10/29/19 0:29:00 EDT, Dry Weight Start Date: 01/19/20 Status: Ordered Januvia 100 mg oral tablet 1 tablet = 100 mg, By Mouth, Daily, # 30 tablet, 2 Refills, Maintenance, 08/27/20 11:00:00 EDT, Tablet, [facility]/pharmacy #[id number], 163, cm, 08/15/20 14:23:00 EDT, Height, 84.8, kg, 06/25/20 20:28:00 EDT, Dry Weight Start Date: 08/27/20 Status: Ordered Lantus 100 u/ml subcutaneous solution = 40 units, Subcutaneous Injection, Daily, # 12 mL, 11 Refills, Maintenance, 05/07/20 13:24:00 EST,Solution, [facility]/pharmacy #[id number], increased dose 12/26/19, 162, cm, 04/21/20 11:33:00 EST, Height, 80, kg, 04/18/20 9:48:00 EST, Dry Weight Start Date: 05/07/20 Status: Ordered lidocaine 5% topical film 1 patch, Topically, Daily, For chronic radicular back pain, # 30 patch, 5 Refills, Maintenance, 03/09/20 8:53:00 EST, [facility]/pharmacy #[id number], 1 patch Topically Daily,Instr:For chronic radicular back pain, 163, cm, 12/26/19 13:58:00 EDT, Height, 80, kg, 07... Start Date: 03/09/20 Status: Ordered lisinopril 20 mg oral tablet 20 mg, 1, tablet, By Mouth, Daily, # 30 tablet, Refills 11, Tot. Refills 11, Maintenance, 05/07/20 13:30:00 EST, Route to Pharmacy Electronically, [facility]/pharmacy #[id number], 162, cm, 04/21/20 11:33:00 EST, Height, 80, kg, 04/18/20 9:48:00 EST, Dry Weight Start Date: 05/07/20 Status: Ordered loratadine 10 mg oral capsule 1 capsule = 10 mg, By Mouth, Daily, # 40 capsule, 0 Refills, Maintenance, 08/15/20 15:59:00 EDT, Capsule, [facility]/pharmacy #[id number], Partial fill upon patient request if the prescription is for a schedule II opioid drug., 163, cm, 08/15/20 14:23:00 EDT, Heig... Start Date: 08/15/20 Status: Ordered Mapap 325 mg oral tablet 2 tablet = 650 mg, By Mouth, Every 4 hours, PRN for pain, not to exceed 3000 mg/day. instructions in maori, # 120 tablet, 2 Refills, Maintenance, 11/01/19 [...] day, for 28 days, on contract at [facility], # 56 tablet, 0 Refills, Acute 09/24/20 [...] 06/04/20 12:46:00 EST, Route to Pharmacy Electronically, [facility]/pharmacy #[id number], 162, cm, 05/24/20 9:01:00 EST, Height, 80, kg, 04/18/20 9:48:00 EST, Dry... Start Date: 06/04/20 Status: Ordered Soma 350 mg oral tablet 350 mg, 1, tablet, By Mouth, 3 times a day, # 9 tablet, Refills 0, Tot. Refills 0, Maintenance, 05/04/20 15:46:00 EST, Route to Pharmacy Electronically, [facility]/pharmacy #[id number], Partial fill upon patient request if [...] 08/16/20 11:59:00 EDT, Route to Pharmacy Electronically, [facility]/pharmacy #[id number], 163, cm, 08/15/20 14:23:00 EDT, Height, [...] [address] Abd 09/18/16 at [facility], pending MRI 3urge and stress Social History Social History Type Response Tobacco Use: Pt states she q uit smoking 1 week ago. Sex
--- OUTSIDE RECORDS SUMMARY | 2023-03-25 08:19 | XMS_ITS | Continuity of Care Document ---
Author Name Unknown Organization [facility] Address [address] [place] [address]- Care Team Providers Care Payroll Accounting Manager Name Role Phone Richardson QUIROZ, Leonora Pérez Primary Care Physician [phone] [facility]counter [facility] Date[facility]s): 12/13/19 - 01/12/20 [facility] [address] [place] [address]- [facility] Allergies, Adverse Reactions, Alerts Substance Reaction Severity [...] 12:48:00 EST, Powder, Route to Pharmacy Electronically, [id number], [facility]pharmacy #[id number], 158, cm, 04/26/19 9:58:00 EST, [...] EST, Tablet Start Date: 05/24/19 Status: Ordered Cane See Instructions, # 1 each, Maintenance, quad cane to assist with balance/ambulation d/t back pain M54.16, 01/10/20 13:37:00 EDT, Supply Start Date: 01/10/20 Status: Ordered capsaicin 0.025% topical cream 1 [...] day, # 30 Gm, 1 Refills, Maintenance, 12/15/19 9:12:00 EDT, Cream, [facility]/pharmacy #[id number], 1 application Topically 2 times a day, 163, cm, 12/13/19 15:57:00 EDT, Height, 80, kg, 10/29/19 0:29:00 EDT, Dry Weight Start Date: 12/15/19 Status: Ordered duloxetine 60 mg oral enteric coated capsule TAKE 1 CAPSULE BY MOUTH EVERY DAY Start Date: 10/29/17 Status: Ordered hydrochlorothiazide 12.5 mg oral tablet 1 tablet = 12.5 mg, By Mouth, Daily, # 90 tablet, 3 Refills, Maintenance, 12/26/19 14:21:00 EDT, Tablet, [facility]/pharmacy #[id number], 163, cm, 12/26/19 13:58:00 EDT, Height, 80, kg, 10/29/19 0:29:00 EDT, Dry Weight Start Date: 12/26/19 Status: Ordered Insulin Syringe, BD Ultra-Fine 1 [...] 5 Refills, Maintenance, 12/30/19 18:21:00 EDT, Tablet, [facility]/pharmacy #[id number], 163, cm, 12/26/19 13:58:00 EDT, Height, 80, kg, 10/29/19 0:29:00 EDT, Dry Weight Start Date: 12/30/19 Status: Ordered Lantus 100 u/ml subcutaneous solution = 35 units, Subcutaneous Injection, Daily, # 10 mL, 11 Refills, Maintenance, 12/26/19 14:22:00 EDT,Solution, [facility]/pharmacy #[id number], increased dose 12/26/19, 163, cm, 12/26/19 13:58:00 EDT, Height, 80, kg, 10/29/19 0:29:00 EDT, Dry Weight Start Date: 12/26/19 Status: Ordered lidocaine 5% topical film 1 patch, Topically, Daily, For chronic radicular back pain, # 30 patch, 5 Refills, Maintenance, 06/27/19 14:37:00 EDT, [facility]/pharmacy #[id number], 1 patch Topically Daily,Instr:For chronic radicular back pain, 160, cm, 06/01/19 14:08:00 EST, Height, 88.9, kg,... Start Date: 06/27/19 Status: Ordered lisinopril 20 mg oral tablet 20 mg, 1, tablet, By Mouth, Daily, # 30 tablet, Refills 0, Tot. Refills 0, Maintenance, 12/13/19 14:04:00 EDT, Print Requisition Start Date: 12/13/19 Status: Ordered lithium 300 mg oral tablet, extended release 2 tablet = 600 mg, By Mouth, Daily at bedtime, Maintenance, 05/24/19 9:12:00 EST, ER Tablet Start Date: 05/24/19 Status: Ordered Mapap 325 mg oral tablet 2 tablet = 650 mg, By Mouth, Every 4 hours, PRN for pain, not to exceed 3000 mg/day. instructions in omani, # 120 tablet, 2 Refills, Maintenance, 11/01/19 15:24:00 EDT, Tablet, [facility]/pharmacy #[id number], 163, cm, 11/01/19 14:40:00 EDT, Height, 80, kg, 07/... Start Date: 11/01/19 Status: Ordered mirtazapine 30 mg oral tablet 1 tablet = 30 mg, By Mouth, Daily at bedtime, Maintenance, 05/24/19 9:12:00 EST, Tablet Start Date: 05/24/19 Status: Ordered nitrofurantoin macrocrystals-monohydrate 100 mg oral capsule 1 capsule = 100 mg, By Mouth, 2 times a day, for 5 days, # 10 capsule, 0 Refills, Acute 01/16/20 15:00:00 EDT, 01/11/20 15:00:00 EDT, Capsule, [facility]/pharmacy #[id number], 163, cm, 12/26/19 13:58:00 EDT, Height, 80, kg, 10/29/19 0:29:00 EDT, Dry Weight Start Date: 01/11/20 Stop Date: 01/16/20 Status: Ordered omeprazole 20 mg oral enteric coated capsule 1 capsule = 20 mg, By Mouth, Daily, Use as little as possible to control symptoms., # 30 capsule, 2Refills, Maintenance, 10/06/19 7:45:00 EDT, EC Capsule, [facility]/pharmacy #[id number], cancel Ranitidine, 160,cm, 09/28/19 8:58:00 [...] pain, for 28 days, on contract at [facility]., # 56 tablet, 0 Refills, Acute 01/27/20 17:24:00 EDT, 12/30/19 17:24:00 EDT, [id number], Partial fill upon patient request, 163, cm, 12/26/19 13:58:00 EDT,... Start Date: 12/30/19 Stop Date: 01/27/20 Status: Ordered Pen [place], 31 G x 5 mm BD Ultra [...] 05/30/19 18:52:00 EST, Route to Pharmacy Electronically, [facility]/pharmacy #[id number], 160, cm, 05/30/19 18:08:00 EST, Height, 88.9, kg, 05/23/19... Start Date: 05/30/19 Status: Ordered Senna 8.6 mg oral tablet 8.6 mg, 1, tablet, By Mouth, Daily at bedtime, # 100 tablet, Refills 2, Tot. Refills 2, Maintenance, 06/10/19 16:12:00 EST, Route to Pharmacy Electronically, [facility]/pharmacy #[id number], 160, cm, 06/01/19 14:08:00 EST, Height, 88.9, kg, 05/23/19 22:09:00 EST,... Start Date: 06/10/19 Status: Ordered Spiriva Respimat 60 ACT 2.5 mcg/inh inhalation aerosol 2 puffs, Inhalation, Daily, # 1 each, 5 Refills, Maintenance, 04/26/19 10:30:00 EST, [facility]/pharmacy #[id number], 158, cm, 04/26/19 9:58:00 EST, Height, 82, kg, 04/01/19 16:10:00 EST, Dry Weight Start Date: 04/26/19 Status: Ordered tiZANidine 4 mg oral tablet 4 mg, 1, tablet, By Mouth, Every 8 hours, # 84 tablet, Refills 1, Tot. Refills 1, Maintenance, 11/24/19 8:16:00 EDT, Route to Pharmacy Electronically, [facility]/pharmacy #[id number], 163, cm, 11/01/19 14:40:00 EDT, Height, 80, kg, 10/29/19 0:29:00 EDT, Dry Weight Start Date: 11/24/19 Stop Date: 01/19/20 Status: Ordered Vitamin D3 5000 intl units [...] insecurity(Confirmed) Active Hyperlipidemia(Confirmed) Active Lesion of liver(Confirmed) 2 Active Hyperactivity of bladder(Confirmed) Active Facet syndrome, lumbar(Confirmed) Active Lumbar radiculopathy(Confirmed) Active Major depressive disorder(Confirmed) Active Obesity(Confirmed) Active MARILIN on CPAP(Confirmed) Active Panic attacks(Confirmed) Active Tobacco dependence(Confirmed) Active DM2 (diabetes mellitus, type 2)(Confirmed) 04/03/17 Active Incontinence of urine(Confirmed) 3 Active 1seen on MRI 10/2016, rec repeat imaging in October [address] Abd 09/18/16 at [facility], pending MRI 3urge and stress Social History Social History Type Response Tobacco Use: Pt states she q uit smoking 1 week ago. Sex Female
--- OUTSIDE RECORDS SUMMARY | 2023-03-25 08:19 | XMS_ITS | Continuity of Care Document ---
Author Name Unknown Organization [facility] Address [address] [place] [address]- Care Team Providers Care Customs House Broker Name Role Phone Richardson SHIPPING LEAD PERSON, Leonora Pérez Primary Care Physician [phone] Encounter [facility] Date(s): 10/09/22 - 11/08/22 [facility] [address] [place] [address]- Allergies, Adverse Reactions, Alerts Substance Reaction Severity Status morphine Active gabapentin swelling Active Lyrica dysphagia Active SEROquel body swelling - all over Act tony MetFORMIN Hydrochloride ER black tarry stool Active Immunizations Given and Recorded Vaccine Date Status Refusal Reason [id number] 12y+ bivalent booster vax 01/30/22 Given influenza virus vaccine, inactivated 01/30/22 Give n influenza virus vaccine, inactivated 02/04/21 Give n influenza virus vaccine, inactivated 1 04/19/20 Gi tonio influenza virus vaccine, inactivated 03/12/19 Give n influenza virus vaccine, inactivated 01/19/18 Give n influenza virus vaccine, inactivated 02/16/17 Give n pneumococcal 20-valent conjugate vaccine 12/26/21 Given SARS-CoV-2 mRNA ([id number]) vax 05/14/21 Given SARS-CoV-2 (COVID-19) mRNA BNT-162b2 [...] 09/25/22 17:00:00 EDT, Route to Pharmacy Electronically, [facility], Partial fill upon patient request if the prescription is for a sched... Start Date: 09/25/22 Status: Ordered Advair Diskus 500 mcg-50 mcg inhalation powder 1, inhalation, Inhalation, 2 times a day, rinse mouth and throat after use, # 60 each, Refills 11, Tot. Refills 11, Maintenance, 09/25/22 17:00:00 EDT, Inhaler, Route to Pharmacy Electronically, [id number], [facility]... Start Date: 09/25/22 Status: Ordered albuterol 0.083% inhalation solution 3 mL = 2.5 mg, 0 Refills, Maintenance, 02/06/22 16:39:00 EDT, Partial fill upon patient request if the prescription is for a schedule II opioid drug. Start Date: 02/06/22 Status: Ordered All Day Allergy 10 mg oral tablet 1 tablet, By Mouth, Daily, # 90 tablet, 1 Refills, Maintenance, 07/25/22 12:30:00 EDT, [facility], 163, cm, 07/11/22 14:19:00 EDT, Height, 83, kg, 02/11/22 19:19:00 EST, Dry Weight Start Date: 07/25/22 Status: Ordered amLODIPine 5 mg oral tablet 5 mg, 1, tablet, By Mouth, Daily, # 90 tablet, Refills 3, Tot. Refills 3, Maintenance, 04/29/22 11:56:00 EST, Route to Pharmacy Electronically, [facility], Partial fill upon patient request if the prescription is for a schedule II opio... Start Date: 04/29/22 Status: Ordered atorvastatin 40 mg oral tablet 1 tablet = 40 mg, By Mouth, Daily, # 90 tablet, 3 Refills, Maintenance, 09/25/22 16:58:00 EDT, Tablet, [facility] Partial fill upon patient request if [...] tablet, 0 Refills, Maintenance, 07/25/22 17:58:00 EDT, [facility]., Partial fill upon patient request if the [...] Gm, 1 Refills, Maintenance, 09/03/22 14:02:00 EDT, [facility], 15, APPLY TOPICALLY TO AFFECTED AREA TWO TIMES A DAY,163, cm, 08/14/22 16:50:00 EDT, Height, 83, kg, 11/... Start Date: 09/03/22 Status: Ordered docusate-senna 50 mg-187 mg oral tablet 2 tablet, By Mouth, 2 times a day, PRN Constipation, # 100 tablet, 11 Refills, Maintenance, 08/14/22 16:57:00 EDT, Tablet, [facility]., Partial fill upon patient request if the prescription is for a schedule II opioid drug., 2 tablet By... Start Date: 08/14/22 Status: Ordered duloxetine 60 mg oral enteric coated capsule 2 capsule = 120 mg, By Mouth, Daily, # 60 capsule, 5 Refills, Maintenance, 05/26/22 17:03:00 EST, Capsule, [facility] Partial fill upon patient request. NOT INCREASED DOSE. Please cancel all other Duloxetine scripts, 163, cm, 05/19/22... Start Date: 05/26/22 Status: Ordered empagliflozin 10 mg oral tablet 1 tablet = 10 mg, By Mouth, Daily in AM, # 90 tablet, 3 Refills, Maintenance, 09/25/22 17:01:00 EDT, Tablet, [facility] Partial fill upon patient request if [...] 10/22/22 15:19:00 EDT, Route to Pharmacy Electronically, [facility] 163, cm, 09/25/22 16:20:00 EDT, Height, 83, kg, 11/0... Start Date: 10/22/22 Status: Ordered lidocaine 5% topical film 1 patch, Topically, Daily, PRN Pain , Mild, remove after 12 hours, # 13 each, 5 Refills, Maintenance, 09/25/22 16:59:00 EDT, Film, [facility]., Partial fill upon patient request if theprescription is for a schedule II opioid drug., 1 p... Start Date: 09/25/22 Status: Ordered lisinopril 20 mg oral tablet 20 mg, 1, tablet, By Mouth, Daily, # 90 tablet, Refills 1, Tot. Refills 1, Maintenance, 07/25/22 12:31:00 EDT, Route to Pharmacy Electronically, [facility], 163, cm, 07/11/22 14:19:00EDT, Height, 83, kg, 02/11/22 19:19:00 EST, Dry Weight Start Date: 07/25/22 Status: Ordered mirtazapine 30 mg oral tablet 1 tablet = 30 mg, By Mouth, Daily at bedtime, # 90 tablet, 1 Refills, Maintenance, 09/25/22 17:00:00 EDT, Tablet, [facility], Partial fill upon patient request if the prescription is for a schedule II opioid drug., 163, cm, 09/25/22 16... Start Date: 09/25/22 Status: Ordered omeprazole 40 mg oral enteric coated capsule 1 capsule, By Mouth, Daily, PRN NEEDED, # 30 capsule, 2 Refills, 08/26/22 13:27:00 EDT, [facility], 163, cm, 08/14/22 16:50:00 EDT, Height, 83, kg, 02/11/22 19:19:00 EST, Dry Weight Start Date: 08/26/22 Status: Ordered oxyCODONE 15 mg oral tablet 1 tablet = 15 mg, By Mouth, 3 times a day, on contract at [facility], # 84 tablet, 0 Refills, Maintenance, 10/24/22 11:04:00 EDT, [facility], Partial fill upon patient request if [...] 90 capsule, 1 Refills, Maintenance,09/25/22 16:54:00 EDT, [facility], 163, cm, 09/25/22 16:20:00 EDT, Height, 83, kg, 02/11/22 19:19:00 EST, Dry Weight Start Date: 09/25/22 Status: Ordered traZODone 50 mg oral tablet 1/2 TO 1 TABLET, By Mouth, Daily at bedtime, # 30 tablet, Refills 5, Maintenance, 08/29/22 11:31:00EDT, Route to Pharmacy Electronically, [facility], 163, cm, 08/14/22 16:50:00 EDT, Height, 83, kg, 02/11/22 19:19:00 EST, Dry Weight Start Date: 08/29/22 Status: Ordered triamcinolone 55 mcg/inh nasal spray 1 sprays = 55 mcg, Nares, Both, Daily, # 1 each, 5 Refills, Maintenance, 08/14/22 16:59:00 EDT, [facility], Partial fill upon patient request if the prescription is for a schedule II opioid drug., 1 sprays Nares, Both Daily, 163, cm, 0... Start Date: 08/14/22 Status: Ordered Trulicity Pen 1.5 mg/0.5 mL subcutaneous solution = 1.5 mg, Subcutaneous Infusion, Every week, # 4 each, 5 Refills, Maintenance, 07/25/22 18:12:00 EDT, [facility], Partial fill upon patient request if [...] Confirmed Active Panic attacks Confirmed Active N/CP Intelligence Engineer Charlene Fabian [phone] Confirmed Active Syncope and collapse Confirmed Active [...] Team Personnel Name: Sindy Bernal RN Position: [facility] RN Member Role: Primary Care Nurse Name: Graciela Thrasher RN Position: [facility] RN Member Role: Primary Care Nurse Name: Stevie Angel RN Position: [facility] RN Member Role: Primary Care Nurse Name: Leonora Bai NP Position: [facility] PCO Associate Professional Member Role: PCP Address: Address: [address] [place] [id number] Name: Keily Ortega RN Position: [facility] RN Member Role: Primary Care Nurse Name: Nichole Pichardo RN Position: [facility] RN Member Role: Primary Care Nurse Name: Melvin Whitfield RN Position: [facility] AMB Nurse Member Role: Primary Care Nurse Name: Phuong Berkowitz RN Position: [facility] RN Member Role: Primary Care Nurse Name: Joselyn Rain RN Position: [facility] Hospital Machine Molder Member Role: Primary Care Nurse Care Team Related Persons Name: NICK IRA Address: home [address] [place] [address] Name: JHON LARSON Address: [address] [place] [address] Name: JHON LARSON Address: [address] [place] [address] Name: GALO CATALAN Name: NANCY CATALAN Address: home [address] [place] [address]
--- OUTSIDE RECORDS SUMMARY | 2023-03-25 08:19 | XMS_ITS | Continuity of Care Document ---
Author Name Unknown Organization [facility] Address [address] [place] [address]- Care Team Providers Care Telegraph Office Manager Name Role Phone Richardson PICKING TABLE WORKER, Leonora Pérez Primary Care Physician [phone] Encounter [facility] Date(s): 10/31/22 - 11/30/22 [facility] [address] [place] [address]- Allergies, Adverse Reactions, Alerts Substance Reaction Severity Status morphine Active gabapentin swelling Active Lyrica dysphagia Active SEROquel body swelling - all over Act tony MetFORMIN Hydrochloride ER black tarry stool Active Immunizations Given and Recorded Vaccine Date Status Refusal Reason [id number] 12y+ bivalent booster vax 01/30/22 Given influenza virus vaccine, inactivated 01/30/22 Give n influenza virus vaccine, inactivated 02/04/21 Give n influenza virus vaccine, inactivated 1 04/19/20 Gi tonio influenza virus vaccine, inactivated 03/12/19 Give n influenza virus vaccine, inactivated 01/19/18 Give n influenza virus vaccine, inactivated 02/16/17 Give n pneumococcal 20-valent conjugate vaccine 12/26/21 Given SARS-CoV-2 mRNA ([id number]) vax 05/14/21 Given SARS-CoV-2 (COVID-19) mRNA BNT-162b2 [...] 09/25/22 17:00:00 EDT, Route to Pharmacy Electronically, [facility], Partial fill upon patient request if the prescription is for a sched... Start Date: 09/25/22 Status: Ordered Advair Diskus 500 mcg-50 mcg inhalation powder 1, inhalation, Inhalation, 2 times a day, rinse mouth and throat after use, # 60 each, Refills 11, Tot. Refills 11, Maintenance, 09/25/22 17:00:00 EDT, Inhaler, Route to Pharmacy Electronically, [id number], [facility]... Start Date: 09/25/22 Status: Ordered albuterol 0.083% inhalation solution 3 mL = 2.5 mg, 0 Refills, Maintenance, 02/06/22 16:39:00 EDT, Partial fill upon patient request if the prescription is for a schedule II opioid drug. Start Date: 02/06/22 Status: Ordered All Day Allergy 10 mg oral tablet 1 tablet, By Mouth, Daily, # 90 tablet, 3 Refills, Maintenance, 11/20/22 16:48:00 EDT, [facility], 163, cm, 11/20/22 16:00:00 EDT, Height, 83, kg, 02/11/22 19:19:00 EST, Dry Weight Start Date: 11/20/22 Status: Ordered amLODIPine 5 mg oral tablet 5 mg, 1, tablet, By Mouth, Daily, # 90 tablet, Refills 3, Tot. Refills 3, Maintenance, 04/29/22 11:56:00 EST, Route to Pharmacy Electronically, [facility], Partial fill upon patient request if the prescription is for a schedule II opio... Start Date: 04/29/22 Status: Ordered atorvastatin 40 mg oral tablet 1 tablet = 40 mg, By Mouth, Daily, # 90 tablet, 3 Refills, Maintenance, 09/25/22 16:58:00 EDT, Tablet, [facility] Partial fill upon patient [...] tablet, 0 Refills, Maintenance, 07/25/22 17:58:00 EDT, [facility]., Partial fill upon patient request if the [...] Gm, 1 Refills, Maintenance, 09/03/22 14:02:00 EDT, [facility], 15, APPLY TOPICALLY TO AFFECTED AREA TWO TIMES A DAY,163, cm, 08/14/22 16:50:00 EDT, Height, 83, kg, 11/... Start Date: 09/03/22 Status: Ordered docusate-senna 50 mg-187 mg oral tablet 2 tablet, By Mouth, 2 times a day, PRN Constipation, # 100 tablet, 11 Refills, Maintenance, 08/14/22 16:57:00 EDT, Tablet, [facility]., Partial fill upon patient request if the prescription is for a schedule II opioid drug., 2 tablet By... Start Date: 08/14/22 Status: Ordered duloxetine 60 mg oral enteric coated capsule 2 capsule = 120 mg, By Mouth, Daily, # 60 capsule, 11 Refills, Maintenance, 11/20/22 16:48:00 EDT, Capsule, [facility]., Partial fill upon patient request. NOT INCREASED DOSE. Please cancel all other Duloxetine scripts, 163, cm, ... Start Date: 11/20/22 Status: Ordered empagliflozin 10 mg oral tablet 1 tablet = 10 mg, By Mouth, Daily in AM, # 90 tablet, 3 Refills, Maintenance, 09/25/22 17:01:00 EDT, Tablet, [facility]., Partial fill upon patient request if the [...] 10/22/22 15:19:00 EDT, Route to Pharmacy Electronically, [facility]., 163, cm, 09/25/22 16:20:00 EDT, Height, 83, kg, 11/0... Start Date: 10/22/22 Status: Ordered Januvia 100 mg oral tablet 1 tablet, By Mouth, Daily, # 30 tablet, 11 Refills, Maintenance, 11/26/22 10:02:00 EDT, [facility], 163, cm, 11/20/22 16:00:00 EDT, Height, 83, kg, 02/11/22 19:19:00 EST, Dry Weight Start Date: 11/26/22 Status: Ordered lidocaine 5% topical film 1 patch, Topically, Daily, PRN Pain , Mild, remove after 12 hours, # 13 each, 5 Refills, Maintenance, 09/25/22 16:59:00 EDT, Film, [facility]., Partial fill upon patient request if theprescription is for a schedule II opioid drug., 1 p... Start Date: 09/25/22 Status: Ordered lisinopril 20 mg oral tablet 20 mg, 1, tablet, By Mouth, Daily, # 90 tablet, Refills 3, Tot. Refills 3, Maintenance, 11/20/22 16:48:00 EDT, Route to Pharmacy Electronically, [facility]., 163, cm, 11/20/22 16:00:00EDT, Height, 83, kg, 02/11/22 19:19:00 EST, Dry Weight Start Date: 11/20/22 Status: Ordered mirtazapine 30 mg oral tablet 1 tablet = 30 mg, By Mouth, Daily at bedtime, # 90 tablet, 1 Refills, Maintenance, 09/25/22 17:00:00 EDT, Tablet, [facility]., Partial fill upon patient request if the prescription is for a schedule II opioid drug., 163, cm, 09/25/22 16... Start Date: 09/25/22 Status: Ordered omeprazole 40 mg oral enteric coated capsule 1 capsule, By Mouth, Daily, PRN NEEDED, # 90 capsule, 1 Refills, Maintenance, 11/25/22 10:53:00 EDT, [facility], 163, cm, 11/20/22 16:00:00 EDT, Height, 83, kg, 02/11/22 19:19:00 EST, Dry Weight Start Date: 11/25/22 Status: Ordered oxyCODONE 15 mg oral tablet 1 tablet = 15 mg, By Mouth, 3 times a day, on contract at [facility], # 84 tablet, 0 Refills, Maintenance, 11/21/22 15:54:00 EDT, [facility]., Partial fill upon patient request if the prescription is for a schedule II opioid drug., 163, cm, 0... Start Date: 11/21/22 Stop Date: 12/19/22 Status: Ordered Panty liners Panty liners, See [...] 02/06/22 Status: Ordered tiZANidine 4 mg oral tablet 1, tablet, By Mouth, 3 times a day, PRN, # 90 tablet, Refills 1, Maintenance, NEEDED FOR SEVERE PAIN, 11/21/22 15:54:00 EDT, Route to Pharmacy Electronically, [facility], 163, cm, 11/20/22 16:00:00 EDT, Height, 83, kg, 02/11/22 19:19:00 E... Start Date: 11/21/22 Status: Ordered traZODone 50 mg oral tablet 1/2 TO 1 TABLET, By Mouth, Daily at bedtime, # 30 tablet, Refills 5, Maintenance, 08/29/22 11:31:00EDT, Route to Pharmacy Electronically, [facility], 163, cm, 08/14/22 16:50:00 EDT, Height, 83, kg, 02/11/22 19:19:00 EST, Dry Weight Start Date: 08/29/22 Status: Ordered triamcinolone 55 mcg/inh nasal spray 1 sprays = 55 mcg, Nares, Both, Daily, # 1 each, 5 Refills, Maintenance, 08/14/22 16:59:00 EDT, [facility], Partial fill upon patient request if the prescription is for a schedule II opioid drug., 1 sprays Nares, Both Daily, 163, cm, 0... Start Date: 08/14/22 Status: Ordered Trulicity Pen 1.5 mg/0.5 mL subcutaneous solution = 1.5 mg, Subcutaneous Infusion, Every week, # 4 each, 11 Refills, Maintenance, 11/20/22 16:49:00 EDT, [facility], Partial fill upon patient request if the prescription is for a schedule II opioid drug., 163, cm, 11/20/22 16:00:00 EDT,... Start Date: 11/20/22 Status: Ordered Walker See Instructions, # 1 [...] Confirmed Active Panic attacks Confirmed Active N/CP Sugar Controller Charlene Fabian [phone] Confirmed Active Syncope and collapse Confirmed Active Tobacco dependence Confirmed Active DM2 (diabetes mellitus, type 2) Confirmed 04/03/17 Active Incontinence of urine 3 Confirmed Active 1seen on MRI 10/2016, rec repeat imaging in October [address] Abd 09/18/16 at [facility], pending MRI 3urge and stress Social History Social History Type Response Smoking Status Current every day sm oker; Type: Cigarettes; Tobacco use times per day: 1/2 ppd; entered on: 12/24/17 Sex Patient Care team information Care Team Personnel Name: Sindy Bernal RN Position: [facility] RN Member Role: Primary Care Nurse Name: Graciela Thrasher RN Position: [facility] SN RN Member Role: Primary Care Nurse Name: Stevie Angel RN Position: [facility] RN Member Role: Primary Care Nurse Name: Leonora Bai NP Position: [facility] PCO Associate Professional Member Role: PCP Address: Address: [address] [place] [id number] Name: Keily Ortega RN Position: [facility] RN Member Role: Primary Care Nurse Name: Nichole Pichardo RN Position: [facility] RN Member Role: Primary Care Nurse Name: Melvin Whitfield RN Position: [facility] AMB Nurse Member Role: Primary Care Nurse Name: Phuong Berkowitz RN Position: [facility] RN Member Role: Primary Care Nurse Name: Joselyn Rain RN Position: [facility] Hospital Abalone Fisherman Member Role: Primary Care Nurse Care Team Related Persons Name: IRA ROMERO Address: home [address] [place] [address] Name: JHON LARSON Address: [address] [place] [address] Name: JHON LARSON Address: [address] [place] [address] Name: GALO CATALAN Name: NANCY CATALAN Address: home [address] [place] [address]
--- OUTSIDE RECORDS SUMMARY | 2023-03-25 08:19 | XMS_ITS | Continuity of Care Document ---
Author Name Unknown Organization [facility] Address [address] [place] [address]- Care Team Providers Care Detailer Furniture Name Role Phone Richardson HEAD TENNIS PROFESSIONAL, Leonora Pérez Primary Care Physician [place] [facility] [place]22 [facility] [address] [place] [address]- Allergies, Adverse Reactions, Alerts Substance Reaction Severity Status morphine Active gabapentin swelling Active Lyrica dysphagia Active SEROquel body swelling - all over Act tony MetFORMIN Hydrochloride ER black tarry stool Active Immunizations Given and Recorded Vaccine Date Status Refusal Reason [id number] 12y+ bivalent booster vax 01/30/22 Given influenza virus vaccine, inactivated 01/30/22 Give n influenza virus vaccine, inactivated 02/04/21 Give n influenza virus vaccine, inactivated 1 04/19/20 Gi tonio influenza virus vaccine, inactivated 03/12/19 Give n influenza virus vaccine, inactivated 01/19/18 Give n influenza virus vaccine, inactivated 02/16/17 Give n pneumococcal 20-valent conjugate vaccine 12/26/21 Given SARS-CoV-2 mRNA ([id number]) vax 05/14/21 Given SARS-CoV-2 (COVID-19) mRNA BNT-162b2 [...] 10/22/21 9:23:00 EDT, Route to Pharmacy Electronically, [facility], Partial fill uponpatient request if [...] tablet, 1 Refills, Maintenance, 07/25/22 12:30:00 EDT, [facility]., 163, cm, 07/11/22 14:19:00 EDT, Height, 83, kg, 02/11/22 19:19:00 EST, Dry Weight Start Date: 07/25/22 Status: Ordered amLODIPine 5 mg oral tablet 5 mg, 1, tablet, By Mouth, Daily, # 90 tablet, Refills 3, Tot. Refills 3, Maintenance, 04/29/22 11:56:00 EST, Route to Pharmacy Electronically, [facility], Partial fill upon patient request if the prescription is for a schedule II opio... Start Date: 04/29/22 Status: Ordered cholecalciferol 5000 intl units oral capsule 1 capsule = 125 mcg, By Mouth, Daily, with food, # 100 capsule, 2 Refills, Maintenance, 02/11/21 11:17:00 EST, Capsule, [facility]/pharmacy #[id number], Partial fill upon patient request if the prescription is for a schedule II opioid drug., 155, cm, 02/11/21 8:53... Start Date: 02/11/21 Status: Ordered clonazePAM 0.5 mg oral tablet 1 tablet = 0.5 mg, By Mouth, 2 times a day, # 60 tablet, 0 Refills, Maintenance, 07/25/22 17:58:00 EDT[facility] fill upon patient request [...] 11 Refills, Maintenance, 02/21/22 10:35:00 EST, Tablet, [facility] Partial fill upon patient request if the prescription is for a schedule II opioid drug., 2 tablet By... Start Date: 02/21/22 Status: Ordered duloxetine 60 mg oral enteric coated capsule 2 capsule = 120 mg, By Mouth, Daily, # 60 capsule, 5 Refills, Maintenance, 05/26/22 17:03:00 EST, Capsule, [facility] Partial fill upon patient request. NOT INCREASED DOSE. Please cancel all other Duloxetine scripts, 163, cm, 05/19/22... Start Date: 05/26/22 Status: Ordered empagliflozin 10 mg oral tablet 1 tablet = 10 mg, By Mouth, Daily in AM, # 30 tablet, 5 Refills, Maintenance, 02/20/22 12:04:00 EST, Tablet, [facility] Partial fill upon patient request if the prescription is for aschedule II opioid drug., 163, cm, 02/11/22 19:19:0... Start Date: 02/20/22 Status: Ordered fluticasone 50 mcg/inh nasal spray See Instructions, USE 1 SPRAY IN BOTH NOSTRILS 2 TIMES A DAY, # 16 mL, 1 Refills, 07/08/21 9:44:00 EDT, [facility] 30, USE 1 SPRAY IN BOTH NOSTRILS 2 TIMES A DAY, 162.5, cm, :49:00 EDT, Height, 85.8, kg, 06/04/21 10:03:00 ES... Start Date: 07/08/21 Status: Ordered ibuprofen 800 mg oral tablet 1, tablet, By Mouth, 3 times a day, PRN, # 90 tablet, Refills 1, Tot. Refills 1, Maintenance, NEEDED FOR PAIN, 07/11/22 15:09:00 EDT, Route to Pharmacy Electronically, [facility], 163, cm, 07/11/22 14:19:00 EDT, Height, 83, kg, 11/0... Start Date: 07/11/22 Status: Ordered Januvia 100 mg oral tablet 1 tablet = 100 mg, By Mouth, Daily, # 90 tablet, 3 Refills, Maintenance, 06/18/21 21:04:00 EDT, Tablet, [facility], 162.5, cm, 06/17/21 13:04:00 EDT, Height, 85.8, kg, 06/04/21 10:03:00 EST, Dry Weight Start Date: 06/18/21 Status: Ordered Lantus 100 u/ml subcutaneous solution = 50 units, Subcutaneous Injection, Daily, # 15 mL, 2 Refills, Maintenance, 01/06/22 12:07:00 EDT, Solution, [facility]., ;, 163, cm, 01/03/22 11:20:00 EDT, Height, 84, kg, 01/02/22 19:36:00 EDT, Dry Weight Start Date: 01/06/22 Status: Ordered lidocaine 5% topical film 1 patch, Topically, Daily, PRN Pain , Mild, remove after 12 hours, # 13 each, 5 Refills, Maintenance, 04/29/22 11:56:00 EST, Film, [facility], Partial fill upon patient request if theprescription is for a schedule II opioid drug., 1 p... Start Date: 04/29/22 Status: Ordered lisinopril 20 mg oral tablet 20 mg, 1, tablet, By Mouth, Daily, # 90 tablet, Refills 1, Tot. Refills 1, Maintenance, 07/25/22 12:31:00 EDT, Route to Pharmacy Electronically, [facility], 163, cm, 07/11/22 14:19:00EDT, Height, [...] NEEDED, # 30 capsule, 2 Refills, [facility], 162, cm, 09/06/21 13:04:00 EDT, Height, 86, kg, 07/23/21 0:58:00 EDT, Dry Weight Start Date: 10/02/21 Status: Ordered oxyCODONE 15 mg oral tablet 1 tablet = 15 mg, By Mouth, 3 times a day, on contract at [facility], # 84 tablet, 0 Refills, Maintenance, 07/22/22 9:08:00 EDT, [facility], Partial fill upon patient request [...] 07/08/21 9:39:00 EDT, Route to Pharmacy Electronically, [facility], 162.5, cm, 07/08/21 8:49:00 EDT, Height, 85.8, kg, 06/04/21 10:0... Start Date: 07/08/21 Status: Ordered tiZANidine 4 mg oral capsule See Instructions, PRN Pain , Severe, take as little as possible to control pain not to exceed 3 doses/day, # 60 capsule, 0 Refills, Maintenance, 07/25/22 17:17:00 EDT, [facility]., 163, cm, 07/11/22 14:19:00 EDT, Height, 83, kg, ... Start Date: 07/25/22 Status: Ordered traZODone 50 mg oral tablet See Instructions, 1/2- 1 tablet By Mouth Daily at bedtime, # 30 each, Refills 1, Tot. Refills 1, Maintenance, 06/30/22 14:07:00 EDT, Instructions Replace Required Details, Route to Pharmacy Electronically, [facility], Partial fill upon... Start Date: 06/30/22 Status: Ordered Trulicity Pen 1.5 mg/0.5 mL subcutaneous solution = 1.5 mg, Subcutaneous Infusion, Every week, # 4 each, 5 Refills, Maintenance, 07/25/22 18:12:00 EDT, [facility], Partial fill upon patient request if the prescription is for a schedule II opioid drug., 163, cm, 07/11/22 14:19:00 EDT,... Start Date: 07/25/22 Status: Ordered Trulicity Pen 3 mg/0.5 mL subcutaneous solution See Instructions, INJECT 0.5 ML SUBCUTANEOUSLY EVERY WEEK. ROTATE INJECTION SITES, # 2 mL, 5 Refills, Maintenance, 02/05/22 19:58:00 EDT, [facility] 163, cm, 02/05/22 11:00:00 EDT, Height,84, kg, [...] Confirmed Active Panic attacks Confirmed Active BHN/BHCP Director Learning And Development Charlene Chung Caren [phone] Confirmed Active Syncope and collapse Confirmed Active Tobacco dependence Confirmed Active DM2 (diabetes mellitus, type 2) Confirmed 04/03/17 Active Incontinence of urine 3 Confirmed Active 1seen on MRI 10/2016, rec repeat imaging in October [address] [place] [facility] [place] 3urge and stress Social History Social History Type Response Smoking Status Current every day sm oker; Type: Cigarettes; Tobacco use times per day: 1/2 ppd; entered on: 12/24/17 Sex Patient Care team information Care Team Personnel Name: Sindy Bernal RN Position: [facility] RN Member Role: Primary Care Nurse Name: Graciela Thrasher RN Position: [facility] SN RN Member Role: Primary Care Nurse Name: Stevie Angel RN Position: [facility] RN Member Role: Primary Care Nurse Name: Richardson QUIROZ, Leonora Pérez Position: [facility] PCO Associate Professional Member Role: PCP Address: Address: [address] [place] [id number] Name: Keily Ortega RN Position: [facility] RN Member Role: Primary Care Nurse Name: Graciela Munroe RN Position: [facility] RN Member Role: Primary Care Nurse Name: Nichole Pichardo RN Position: [facility] RN Member Role: Primary Care Nurse Name: Melvin Whitfield RN Position: [facility] PCO RN Member Role: Primary Care Nurse Name: Phuong Berkowitz RN Position: [facility] RN Member Role: Primary Care Nurse Name: Joselyn Rain RN Position: [facility] Hadoop Architect Member Role: Primary Care Nurse Care Team Related Persons Name: NICK IRA Address: home [address] [place] [address] Name: JHON LARSON Address: [address] [place] [address] Name: JHON LARSON Address: home [address] [place] [address] Name: GALO CATALAN Name: NANCY CATALAN Address: home [address] [place] [address]
--- OUTSIDE RECORDS SUMMARY | 2023-03-25 08:19 | XMS_ITS | Continuity of Care Document ---
Author Name Unknown Organization [facility] Address [address] [place] [id number]- Care Team Providers Care Cook Morning Name Role Phone Richardson FRONT LINE LEADER, Leonora Pérez Primary Care Physician [phone] Encounter [facility] Date(s): 12/17/18 - 04/16/19 [facility] [address] [place] [id number] Attending Physician: Anatoly López MD Admitting Physician: Anatoly López MD Allergies, Adverse Reactions, Alerts Substance Reaction [...] 1, puffs, Inhalation, 2 times a day, # 1 cartridge, Refills 5, Tot. Refills 5, Maintenance, 11/15/18 15:03:51 EDT, Powder, Route to Pharmacy Electronically, [id number], [facility]/pharmacy #[id number] Start Date: 11/15/18 Status: Ordered albuterol 0.083% inhalation solution 3 [...] = 20 mg, By Mouth, Daily, # 30 tablet, 11 Refills, Maintenance, 12/20/18 18:02:55 EDT, Tablet Start Date: 12/20/18 Status: Ordered cetirizine 10 mg oral tablet 1 tablet = 10 mg, By Mouth, Daily, # 30 tablet, 5 Refills, Maintenance, 05/07/18 15:13:13 EST, Tablet Start Date: 05/07/18 Status: Ordered clonazePAM 1 mg oral tablet [...] USE 1 SPRAY IN BOTH NOSTRILS DAILY, [facility]/pharmacy #[id number] Start Date: 12/01/18 Status: Ordered Freestyle [...] dose increase Start Date: 12/20/18 Status: Ordered lisinopril 10 mg oral tablet 10 mg, 1, tablet, By Mouth, Daily, # 90 tablet, Refills 0, Tot. Refills 0, Maintenance, 04/01/19 8:48:00 EST, Route to Pharmacy Electronically, [facility]/pharmacy #[id number], to replace 2.5mg dose, 163, cm, 04/01/19 8:32:00 EST, Height, 84.8, kg, 03/11/19 20:38:... Start Date: 04/01/19 Stop Date: 06/30/19 Status: Ordered lithium 450 mg oral tablet, extended release = 600 mg, By Mouth, Daily at bedtime, 0 Refills, Maintenance, 11/25/18 10:11:53 EDT Start Date: 11/25/18 Status: Ordered Mapap 325 mg oral tablet 2 tablet = 650 mg, By Mouth, Every 4 hours, PRN for pain, not to exceed 3000 mg/day. instructions in persian, # 120 tablet, 2 Refills, Maintenance, 11/04/18 13:51:30 EDT, Tablet Start Date: 11/04/18 Status: Ordered menthol-methyl salicylate 1%-15% topical cream See Instructions, Please apply to lower back, # 15 mL, 0 Refills, Maintenance, 04/04/19 16:22:00 EST, [facility]/pharmacy #[id number], Please apply to lower back, 158, cm, 04/04/19 15:21:00 EST, Height, 82, kg, 04/01/19 16:10:00 EST, Dry Weight Start Date: 04/04/19 Status: Ordered metFORMIN 750 mg oral tablet, extended release 1 tablet = 750 mg, By Mouth, Daily, # 30 tablet, 6 Refills, Maintenance, 04/04/19 16:29:00 EST, ER Tablet, [facility]/pharmacy #[id number], 158, cm, 04/04/19 15:21:00 EST, Height, [...] pain, for 28 days, on contract at [facility]., # 56 tablet, 0 Refills, Acute 04/29/19 8:51:00 EST, 04/01/19 8:51:00 EST, [facility]/pharmacy #[id number], Partial fill uponpatient request, 163, cm, 04/01/19 8:32:00 EST, Hei... Start Date: 04/01/19 Stop Date: 04/29/19 Status: Ordered Pulmicort Flexhaler 180 mcg 1 puffs, Inhalation, 2 times a day, # 1 each, 5 Refills, Maintenance, 02/28/19 17:47:06 EST, Powder, 1 puffs Inhalation 2 times a day Start Date: 02/28/19 Status: Ordered raNITIdine 300 mg oral tablet See Instructions, # 30 tablet, Refills 2 Tot. Refills 2, TAKE 1 TABLET BY MOUTH EVERYDAY AT BEDTIME, [facility]/pharmacy #[id number] Start Date: 01/27/19 Status: Ordered Senexon-S 2 tablet, By Mouth, Daily at bedtime, 0 Refills, Maintenance, 11/25/18 10:10:49 EDT Start Date: 11/25/18 Status: Ordered tiZANidine 2 mg oral capsule 1 capsule = 2 mg, By Mouth, 2 times a day, PRN as needed for muscle spasm, # 30 capsule, 0 Refills,Maintenance, 04/04/19 16:17:00 EST, Capsule Start Date: 04/04/19 Stop Date: 05/04/19 Status: Ordered Tums 500 mg oral tablet, chewable 500 mg, 1, tablet, Chew, 2 times a day, PRN, # 45 tablet, Refills 0, Tot. Refills 0, Maintenance, as needed for dyspepsia, 10/18/18 15:31:54 EDT, Route to Pharmacy Electronically, [id number], [facility]/pharmacy #[id number] Start Date: 10/18/18 Status: Ordered Urinary [...] on CPAP(Confirmed) Active Panic attacks(Confirmed) Active *BHN/BHCP/SARAHarmony MacdonaldKpqsxod-[phone]/Health intermediate, active care coordination(Confirmed) Active Acute meniscal tear of right knee(Confirmed) 06/2015 Active Tobacco dependence(Confirmed) Active DM2 (diabetes mellitus, type 2)(Confirmed) 04/03/17 Active Incontinence of urine(Confirmed) 8 Active 1surgically repaired November 2015, Dr. Sg MENDEZ 2DJD Lumbar Spine per MRI 3L3-L4 disc herniation per client report 4seen on MRI 10/2016, rec repeat imaging in October 2017 5done in [place] 6seen on CT Abd 09/18/16 [place] [facility] [place], [place] 7surgically repaired July 2015 Dr. Sg MENDEZ 8urge and stress Social History Social History Type Response Tobacco Use: Pt states she q uit smoking 1 week ago. Sex Female
--- OUTSIDE RECORDS SUMMARY | 2023-03-25 08:19 | XMS_ITS | Continuity of Care Document ---
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 Name Role Phone Richardson QUIROZ, Leonora Pérez Primary Care Physician Encounter [facility] Date(s): 02/11/22 - 02/11/[address] [address]- Discharge Disposition: A-D/C Home Attending Physician: Rocky Carrillo MD Admitting Physician: Gerardo GERARDO, Rocky Kyle Referring Physician: Not on Staff, Referring MD Allergies, Adverse Reactions, Alerts Substance Reaction Severity Status morphine Active gabapentin swelling Active Lyrica dysphagia Active SEROquel body swelling - all over Act tony MetFORMIN Hydrochloride ER black tarry stool Active Immunizations Given and Recorded Vaccine Date Status Refusal Reason [id number] 12y+ bivalent booster vax 01/30/22 Given influenza virus vaccine, inactivated 01/30/22 Give n influenza virus vaccine, inactivated 02/04/21 Give n influenza virus vaccine, inactivated 1 04/19/20 Gi tonio influenza virus vaccine, inactivated 03/12/19 Give n influenza virus vaccine, inactivated 01/19/18 Give n influenza virus vaccine, inactivated 02/16/17 Give n pneumococcal 20-valent conjugate vaccine 12/26/21 Given SARS-CoV-2 mRNA ([id number]) vax 05/14/21 Given SARS-CoV-2 (COVID-19) mRNA [id number] [...] 10/22/21 9:23:00 EDT, Route to Pharmacy Electronically, [facility], Partial fill uponpatient request if the [...] opioid drug. Start Date: 02/06/22 Status: Ordered amitriptyline 25 mg oral tablet 25 mg, 1, tablet, By Mouth, Daily at bedtime, # 30 tablet, Refills 2, Tot. Refills 2, Maintenance, 08/30/21 12:06:00 EDT, Route to Pharmacy Electronically, [facility], Partial fill upon patient request if the prescription is for a sche... Start Date: 08/30/21 Status: Ordered amLODIPine 5 mg oral tablet 5 mg, 1, tablet, By Mouth, Daily, # 90 tablet, Refills 0, Tot. Refills 0, Maintenance, 01/30/22 10:50:00 EDT, Route to Pharmacy Electronically, [facility], Partial fill upon patient request if the prescription is for a schedule II opio... Start Date: 01/30/22 Status: Ordered cetirizine 10 mg oral tablet 1 tablet = 10 mg, By Mouth, Daily, # 30 tablet, 5 Refills, Maintenance, 08/28/21 9:07:00 EDT, Tablet, [facility], 162, cm, 08/22/21 9:46:00 EDT, Height, 86, kg, 07/23/21 0:58:00 EDT, Dry Weight Start Date: 08/28/21 Status: Ordered cholecalciferol 5000 intl units oral capsule 1 capsule = 125 mcg, By Mouth, Daily, with food, # 100 capsule, 2 Refills, Maintenance, 02/11/21 11:17:00 EST, Capsule, [facility]/pharmacy #[id number], Partial fill upon patient request if [...] opioid drug. Start Date: 08/22/21 Status: Ordered docusate-senna 50 mg-187 mg oral tablet 2 tablet, By Mouth, 2 times a day, PRN Constipation, # 100 tablet, 0 Refills, Maintenance, 10/24/2219:09:00 EDT, Tablet, [facility], Partial fill upon patient request if the prescription is for a schedule II opioid drug., 2 tablet By... Start Date: 10/23/21 Status: Ordered doxycycline monohydrate 100 mg oral capsule 1 capsule = 100 mg, By Mouth, 2 times a day, for 7 days, stay out of the sun while taking this medication as it increases risk of severe sunburn, # 14 capsule, 0 Refills, Acute 02/18/22 19:12:00 EST,02/11/22 19:12:00 EST, [facility] Start Date: 02/11/22 Stop Date: 02/18/22 Status: Ordered duloxetine 60 mg oral enteric coated capsule 2 capsule = 120 mg, By Mouth, Daily, # 60 capsule, 5 Refills, Maintenance, 11/14/21 11:41:00 EDT, Capsule, [facility] Partial fill upon patient request. NOT INCREASED DOSE. Please cancel all other Duloxetine scripts, 162, cm, 11/14/21... Start Date: 11/14/21 Status: Ordered empagliflozin 10 mg oral tablet 1 tablet = 10 mg, By Mouth, Daily in AM, # 30 tablet, 5 Refills, Maintenance, 08/28/21 9:07:00 EDT,Tablet, [facility]., Partial fill upon patient request if the prescription is for a schedule II opioid drug., 162, cm, 08/22/21 9:46:00... Start Date: 08/28/21 Status: Ordered fluticasone 50 mcg/inh nasal spray See Instructions, USE 1 SPRAY IN BOTH NOSTRILS 2 TIMES A DAY, # 16 mL, 1 Refills, 07/08/21 9:44:00 EDT, [facility]., 30, USE 1 SPRAY IN BOTH NOSTRILS 2 TIMES A DAY, 162.5, cm, :49:00 EDT, Height, 85.8, kg, 06/04/21 10:03:00 ES... Start Date: 07/08/21 Status: Ordered ibuprofen 800 mg oral tablet 800 mg, 1, tablet, By Mouth, 3 times a day, PRN, # 90 tablet, Refills 1, Tot. Refills 1, Maintenance, Pain , Mild, 01/06/22 12:22:00 EDT, Route to Pharmacy Electronically, [facility].,please fill 800mg instead of 600mg, 163, cm, 01/03/... Start Date: 01/06/22 Status: Ordered Januvia 100 mg oral tablet 1 tablet = 100 mg, By Mouth, Daily, # 90 tablet, 3 Refills, Maintenance, 06/18/21 21:04:00 EDT, Tablet, [facility] 162.5, cm, 06/17/21 13:04:00 EDT, Height, 85.8, kg, 06/04/21 10:03:00 EST, Dry Weight Start Date: 06/18/21 Status: Ordered Lantus 100 u/ml subcutaneous solution = 50 units, Subcutaneous Injection, Daily, # 15 mL, 2 Refills, Maintenance, 01/06/22 12:07:00 EDT, Solution, [facility]., ;, 163, cm, 01/03/22 11:20:00 EDT, Height, 84, kg, 01/02/22 19:36:00 EDT, Dry Weight Start Date: 01/06/22 Status: Ordered lidocaine 5% topical film 1 patch, Topically, Daily, PRN Pain , Mild, remove after 12 hours, # 13 each, 5 Refills, Maintenance, 12/26/21 10:37:00 EDT, Film, [facility]., Partial fill upon patient request if theprescription is for a schedule II opioid drug., 1 p... Start Date: 12/26/21 Status: Ordered lisinopril 20 mg oral tablet 20 mg, 1, tablet, By Mouth, Daily, # 90 tablet, Refills 3, Tot. Refills 3, Maintenance, 08/28/21 9:07:00 EDT, Route to Pharmacy Electronically, [facility], 162, cm, 08/22/21 9:46:00 EDT, Height, 86, kg, 07/23/21 0:58:00 EDT, Dry Weight Start Date: 08/28/21 Status: Ordered Melatonin 10 mg oral tablet 1 tablet = 10 mg, By Mouth, Daily at bedtime, # 30 each, 5 Refills, Maintenance, 11/14/21 11:42:00 EDT, [facility], Partial fill upon patient request if [...] PRN NEEDED, # 30 capsule, 2 Refills, [facility], 162, cm, 09/06/21 13:04:00 EDT, Height, 86, kg, 07/23/21 0:58:00 EDT, Dry Weight Start Date: 10/02/21 Status: Ordered oxyCODONE 15 mg oral tablet 1 tablet = 15 mg, By Mouth, 3 times a day, for 28 days, On contract at [facility]. Switching regimen and disposing of current tablets in exchange for these, # 84 tablet, 0 Refills, Acute 02/27/22 10:25:00 EST, 01/30/22 10:25:00 EDT, [facility]... Start Date: 01/30/22 Stop Date: 02/27/22 Status: Ordered prazosin 2 mg oral capsule 0 Refills, Maintenance, 02/06/22 16:42:00 EDT, Partial fill upon patient request if the prescription is for a schedule II opioid drug. Start Date: 02/06/22 Status: Ordered Senna 8.6 mg oral tablet 8.6 mg, 1, tablet, By Mouth, Daily at bedtime, # 100 tablet, Refills 11, Tot. Refills 11, Maintenance, 07/08/21 9:39:00 EDT, Route to Pharmacy Electronically, [facility], 162.5, cm, 07/08/21 8:49:00 EDT, Height, 85.8, kg, 06/04/21 10:0... Start Date: 07/08/21 Status: Ordered tiZANidine 4 mg oral capsule 1 capsule = 4 mg, By Mouth, 3 times a day, # 90 capsule, 0 Refills, Maintenance, 02/06/22 15:53:00 EDT, [facility], Partial fill upon patient request if the prescription is for a schedule II opioid drug., 163, cm, 02/06/22 15:10:00 EDT... Start Date: 02/06/22 Stop Date: 03/08/22 Status: Ordered Trulicity Pen 3 mg/0.5 mL subcutaneous solution See Instructions, INJECT 0.5 ML SUBCUTANEOUSLY EVERY WEEK. 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 [phone] Confirmed Active Syncope and collapse Confirmed Active Tobacco dependence Confirmed Active DM2 (diabetes mellitus, type 2) Confirmed 04/03/17 Active Incontinence of urine 3 Confirmed Active 1seen on MRI 10/2016, rec repeat imaging in October [address] Abd 09/18/16 at [facility], pending MRI 3urge and stress Vital Signs Most recent to oldest [Reference Range]: 1 2 3 Height 163 cm (02/11/22 7:19 PM) 163 cm (02/11/22 3:41 PM) 163 cm (02/11/22 3:38 PM) Weight 83 kg (02/11/22 7:19 PM) 83 kg (02/11/22 3:41 PM) 83 kg (02/11/22 3:38 PM) Oxygen Saturation [94-100 %] 94 % (02/11/22 7:19 PM) 96 % (02/11/22 3:38 PM) Pulse Rate [55-90 bpm] 74 bpm (02/11/22 7:19 PM) 86 bpm (02/11/22 3:38 PM) Body Mass Index [18.5-24.99 kg/m2] 31.24 kg/m2 *>HHI* (02/11/22 7:19 PM) 31.24 kg/m2 *>HHI* (02/11/22 3:38 PM) Blood Pressure [90-138/55-84 mm Hg] 138/94mm Hg (02/11/22 7:19 PM) 137/90mm Hg (02/11/22 3:38 PM) Respiratory Rate [16-30 br/min] 18 br/min (02/11/22 7:19 PM) 20 br/min (02/11/22 3:38 PM) Temperature [96.8-100.4 DegF] 98.2 DegF (02/11/22 7:19 PM) 98.9 DegF (02/11/22 3:38 PM) Mode of Delivery (Oxygen) Room air (02/11/22 7:19 PM) Room air (02/11/22 3:38 PM) Blood pressure sites Arm, left (02/11/22 7:19 PM) Arm, right (02/11/22 3:38 PM) Temperature Route Oral (02/11/22 7:19 PM) Oral (02/11/22 3:38 PM) Dry Weight 83 kg (02/11/22 7:19 PM) 83 kg (02/11/22 3:41 PM) 83 kg (02/11/22 3:38 PM) Dry Weight Obtained Via Standing scale (02/11/22 3:38 PM) Social History Social History Type Response Smoking Status Current every day sm oker; Type: Cigarettes; Tobacco use times per day: 1/2 ppd; entered on: 12/24/17 Sex Note * Vesna William: PERFORM, SIGN, VERIFY Event Display: Patient Education Handout Authored Date: Patient Care team information Care Team Personnel Name: Sindy Bernal RN Position: [facility] RN Member Role: Primary Care Nurse Name: Graciela Thrasher RN Position: [facility] RN Member Role: Primary Care Nurse Name: Stevie Angel RN Position: [facility] RN Member Role: Primary Care Nurse Name: Leonora Bai NP Position: [facility] Associate Professional Member Role: PCP Address: Address: [address] [place] [id number] Name: Keily Ortega RN Position: [facility] RN Member Role: Primary Care Nurse Name: Graciela Munroe RN Position: [facility] RN Member Role: Primary Care Nurse Name: Nichole Pichardo RN Position: [facility] RN Member Role: Primary Care Nurse Name: Melvin Whitfield RN Position: [facility] PCO RN Member Role: Primary Care Nurse Name: Phuong Berkowitz RN Position: [facility] RN Member Role: Primary Care Nurse Name: Joselyn Rain RN Position: [facility] Recreational Therapy Technician Member Role: Primary Care Nurse Name: Lolis Fraser RN Position: [facility] ED RN W/OE and Tasks Member Role: Patient Care Provider Name: Vesna William Position: [facility] Associate Professional Member Role: Physician Business Job Titles Address: Address: [address] [facility] [place] [address]- Name: Aria Ivy Position: [facility] ED OA Name: Rocky Carrillo MD Position: [facility] ED Medicine MD Member Role: Admitting Physician Address: Address: [address] [place] [address]- Care Team Related Persons Name: IRA ROMERO Address: home [address] [place] [address] Name: JHON LARSON Address: home [address] [place] [address] Name: JHON LARSON Address: home [address] [place] [address] Name: GALO CATALAN Name: NANCY CATALAN Address: home [address] [place] [address]
--- OUTSIDE RECORDS SUMMARY | 2023-03-25 08:19 | XMS_ITS | Continuity of Care Document ---
Author Name Unknown Organization [facility] Address [address] [place] [address]- Care Team Providers Care Fill Technician Name Role Phone Richardson QUIROZ, Leonora Pérez Primary Care Physician Encounter [facility] Date(s): 04/15/21 - 05/17/21 [facility] [address] [place] [address]- Attending Physician: Alon Cleveland MD Admitting Physician: Alon Cleveland MD Allergies, Adverse Reactions, Alerts Substance Reaction Severity Status morphine Active gabapentin swelling Active Lyrica dysphagia Active SEROquel body swelling - all over Act tony MetFORMIN Hydrochloride ER black tarry stool Active Immunizations Given and Recorded Vaccine Date Status Refusal Reason SARS-CoV-2 mRNA ([id number]) vax 05/14/21 Given influenza virus vaccine, inactivated [...] 01/16/21 19:30:00 EDT, [id number] Partial fill upon patient request if the prescription is for a schedule II o... Start Date: 01/16/21 Status: Ordered Advair Diskus 500 mcg-50 mcg inhalation powder 1, puffs, Inhalation, 2 times a day, [id number], # 1 each, Refills 5, Tot. Refills 5, Maintenance, 05/15/21 9:20:00 EST, Powder, Route to Pharmacy Electronically, [id number], [facility]., 162.5, cm, 05/10/21 14:47... Start Date: 05/15/21 Status: Ordered albuterol 0.083% inhalation solution 3 mL = 2.5 mg, Inhalation, Every 4 hours, PRN for wheezing, # 100 each, 2 Refills, Maintenance, 05/15/21 9:30:00 EST, Solution, [facility]., 162.5, cm, 05/10/21 14:47:00 EST, Height, 90.9, kg, 02/02/21 5:59:00 EDT, Dry Weight Start Date: 05/15/21 Status: Ordered amitriptyline 75 mg oral tablet 1 tablet = 75 mg, By Mouth, Daily at bedtime, # 90 tablet, 1 Refills, Maintenance, 05/07/21 10:21:00 EST, Tablet, [facility], Partial fill upon patient request if the prescription is for a schedule II opioid drug., 162.5, cm, 03/22/21... Start Date: 05/07/21 Status: Ordered atorvastatin 20 mg oral tablet 3 tablet = 60 mg, By Mouth, Daily, # 90 tablet, 3 Refills, Maintenance, 04/05/20 14:11:00 EST, Tablet, [id number] Partial fill upon patient request if the prescription is for a schedule II opioid drug., 162.56, cm, 03/27/20 11:36:00 EST, [place]ig... Start Date: 04/05/20 Status: Ordered capsaicin 0.025% topical cream 1 application, Topically, 3 times a day, # 45 Gm, 3 Refills, Maintenance, 11/01/19 15:25:00 EDT, Cream, [facility]/pharmacy #[id number], 1 application Topically 3 times a day, 163, cm, 11/01/19 14:40:00 EDT, Height, 80, kg, 10/29/19 0:29:00 EDT, Dry Weight Start Date: 11/01/19 Status: Ordered cetirizine 10 mg oral tablet 1 tablet = 10 mg, By Mouth, Daily, # 30 tablet, 5 Refills, Maintenance, 06/20/20 13:18:00 EDT, Tablet, [facility]/pharmacy #[id number], 162, cm, 05/24/20 9:01:00 EST, [...] 5 Refills, Maintenance, 02/18/21 15:09:00 EST, Capsule, [facility]/pharmacy #[id number], Partial fill upon patient request. NOT INCREASED DOSE, 155, cm, 02/18/2114:54:00 EST, Height, 90.9, kg, 02/02/21 5:59:00 ED... Start Date: 02/18/21 Status: Ordered estradiol 0.1 mg/g vaginal cream = 1 Gm, Vaginally, Daily at bedtime, # 30 Gm, 11 Refills, Maintenance, 12/31/20 15:58:00 EDT, [facility]/pharmacy #[id number], Partial fill upon patient request if the prescription is for a schedule II opioid drug., 165, cm, 12/31/20 14:56:00 EDT, Height, 87.6, kg... Start Date: 12/31/20 Status: Ordered fluticasone 50 mcg/inh nasal spray See Instructions, USE 1 SPRAY IN BOTH NOSTRILS 2 TIMES A DAY, # 16 mL, 1 Refills, Maintenance, [id number], 30, USE 1 SPRAY IN BOTH NOSTRILS [...] opioid drug. Start Date: 02/11/21 Status: Ordered hydrochlorothiazide 12.5 mg oral tablet 1 tablet = 12.5 mg, By Mouth, Daily, TAKE 1 TABLET BY MOUTH EVERY DAY, # 30 capsule, 2 Refills, Maintenance, 05/15/21 9:20:00 EST, [facility]., 162.5, cm, 05/10/21 14:47:00 EST, Height, 90.9, kg, 02/02/21 5:59:00 EDT, Dry Weight Start Date: 05/15/21 Status: Ordered Insulin Syringe, BD Ultra-Fine 0.5 cc 31 G x 8 mm (5/16in) See Instructions, # 100 each, Refills 11, Tot. Refills 11, Maintenance, Dx: DM2 once daily injections, 05/15/21 9:31:00 EST, Supply, 162.5, cm, 05/10/21 14:47:00 EST, Height, 90.9, kg, 02/02/21 5:59:00 EDT, Dry Weight Start Date: 05/15/21 Status: Ordered Januvia 100 mg oral tablet 1 tablet = 100 mg, By Mouth, Daily, # 30 tablet, 2 Refills, Maintenance, 03/01/21 12:42:00 EST, Tablet, [facility]/pharmacy #[id number], 155, cm, 02/18/21 14:54:00 EST, Height, 90.9, kg, 02/02/21 5:59:00 EDT, DryWeight Start Date: 03/01/21 Status: Ordered Lantus 100 u/ml subcutaneous solution = 40 units, Subcutaneous Injection, Daily, # 12 mL, 2 Refills, Maintenance, 03/01/21 12:42:00 EST, Solution, [facility]/pharmacy #[id number], increased dose 12/26/19, 155, cm, [...] 04/12/21 13:24:00 EST, Route to Pharmacy Electronically, [facility]/pharmacy #[id number], 162.5, cm, 03/22/21 14:58:00 EST, [...] 0 Refills, Maintenance, 08/15/20 15:59:00 EDT, Capsule, [facility]/pharmacy #[id number], Partial fill upon patient request if the prescription is for a schedule II opioid drug., 163, cm, 08/15/20 14:23:00 EDT, Heig... Start Date: 08/15/20 Status: Ordered mirabegron 25 mg oral tablet, extended release 1 tablet = 25 mg, By Mouth, Daily, do not crush or chew, # 30 tablet, 11 Refills, Maintenance, 12/31/20 15:58:00 EDT, ER Tablet, [facility]/pharmacy #[id number], Partial fill upon [...] 2 times a day, # 60 tablet, 1 Refills, Maintenance, 05/17/21 9:57:00 EST, Tablet, [facility], Partial fill upon patient request if the prescription is fora schedule II opioid drug., 162.5, cm, 05/17/21 9:2... Start Date: 05/17/21 Status: Ordered omeprazole 40 mg oral enteric coated capsule 1 capsule = 40 mg, By Mouth, Daily, PRN Dyspepsia, # 90 capsule, 0 Refills, Maintenance, 05/09/21 10:45:00 EST, EC Capsule, [facility]., 162.5, cm, 03/22/21 14:58:00 EST, Height, 90.9,kg, 02/02/21 5:59:00 EDT, Dry Weight Start Date: 05/09/21 Status: Ordered oxyCODONE 15 mg oral tablet 1 tablet = 15 mg, By Mouth, 3 times a day, for 28 days, MASSPAT CHECKED PT ON CONTRACT AT [facility], # 84 tablet, 0 Refills, Acute 06/14/21 10:00:00 EST, 05/17/21 10:00:00 EST, [facility]., Increase to TID 05/10/21, please request... Start Date: 05/17/21 Stop Date: 06/14/21 Status: Ordered Physical Therapy Physical Therapy, See Instructions, # 1 each, Refills 0, Tot. Refills 0, Maintenance, Physical Therapy Outpatient ICD: M79.605, M54.50 For chronic low back pain and left leg pain, 05/10/21 15:16:00 EST, Supply Start Date: 05/10/21 Status: Ordered prazosin 2 mg oral capsule See Instructions, 0 Refills, Maintenance, 03/14/21 10:48:00 EST, Partial fill upon patient request if the prescription is for a schedule II opioid drug. Start Date: 03/14/21 Status: Ordered predniSONE 20 mg oral tablet 2 tablet = 40 mg, By Mouth, Daily, for 5 days, # 10 tablet, 0 Refills, Acute 05/22/21 10:01:00 EST,05/17/21 10:01:00 EST, [facility], Partial fill upon patient request if the prescription is for a schedule II opioid drug., 162.5, cm,... Start Date: 05/17/21 Stop Date: 05/22/21 Status: Ordered Senna 8.6 mg oral tablet 8.6 mg, 1, tablet, By Mouth, Daily at bedtime, # 100 tablet, Refills 11, Tot. Refills 11, Maintenance, 10/30/20 11:37:00 EDT, [id number], 163, cm, 08/15/20 14:23:00 EDT, Height, 84.8, kg, 06/25/20 20:28:00 EDT... Start Date: 10/30/20 Status: Ordered Spiriva Respimat 60 ACT 2.5 mcg/inh inhalation aerosol 2 puffs, Inhalation, Daily, # 1 each, 11 Refills, Maintenance, 04/05/20 14:17:00 EST, [facility]/pharmacy #[id number], Partial fill upon [...] tablet, Refills 1, Tot. Refills 1, Maintenance,Spasm, 04/24/21 8:58:00 EST, Route to Pharmacy Electronically, [facility]., 162.5, cm, 03/22/21 14:58:00 EST, Height, 90.9, kg, 02/02/21... 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
--- OUTSIDE RECORDS SUMMARY | 2023-03-25 08:19 | XMS_ITS | Continuity of Care Document ---
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/pharmacy #[id number], 158, cm, 04/26/19 9:58:00 EST, H... Start Date: 04/27/19 Status: Ordered albuterol 0.083% inhalation solution 3 mL = 2.5 mg, Inhalation, Every 4 hours, PRN for wheezing, # 100 each, 5 Refills, Maintenance, 06/27/19 14:32:00 EDT, Solution, [facility]/pharmacy #[id number], 160, cm, 06/01/19 14:08:00 EST, Height, [...] 5 Refills, Maintenance, 04/19/19 15:40:00 EST, Tablet, [facility]/pharmacy #[id number], 158, cm, 04/04/19 15:21:00 EST, Height, 82, kg, 04/01/19 16:10:00 EST, Dry Weight Start Date: 04/19/19 Status: Ordered clonazePAM 0.5 mg oral tablet TAKE 1 TABLET BY MOUTH TWICE A DAY NEEDED Start Date: 06/02/19 Status: Ordered clotrimazole 1% topical cream 1 application, Topically, 2 times a day, # 30 Gm, 0 Refills, Maintenance, 05/30/19 19:02:00 EST, Cream, [facility]/pharmacy #[id number], 1 application Topically 2 times a [...] 5 Refills, Maintenance, 04/28/19 16:05:00 EST, Tablet, [facility]/pharmacy #[id number], 158, cm, 04/28/19 14:51:00 EST, Height, 82, kg, 04/01/19 16:10:00 EST, Dry Weight Start Date: 04/28/19 Status: Ordered lidocaine 5% topical film 1 patch, Topically, Daily, For chronic radicular back pain, # 30 patch, 5 Refills, Maintenance, 06/27/19 14:37:00 EDT, [facility]/pharmacy #[id number], 1 patch Topically Daily,Instr:For chronic radicular back pain, 160, cm, 06/01/19 14:08:00 EST, Height, 88.9, kg,... Start Date: 06/27/19 Status: Ordered lisinopril 10 mg oral tablet 10 mg, 1, tablet, By Mouth, Daily, # 90 tablet, Refills 3, Tot. Refills 3, Maintenance, 05/08/19 20:27:00 EST, Route to Pharmacy Electronically, [facility]/pharmacy #[id number], to replace 2.5mg dose, 158, cm, [...] not to exceed 3000 mg/day. instructions in belarusian, # 120 tablet, 2 Refills, Maintenance, 07/25/19 8:41:00 EDT, Tablet, [facility]/pharmacy #[id number], 160, cm, 07/22/19 15:08:00 EDT, Height, [...] pain, for 28 days, on contract at [facility]., # 56 tablet, 0 Refills, Acute 09/12/19 14:55:00 EDT, 08/15/19 14:55:00 EDT, [facility]/pharmacy #[id number], Partial fill upon patient request, 160, cm, 07/22/19 15:08:00 EDT,... Start Date: 08/15/19 Stop Date: 09/12/19 Status: Ordered prazosin 1 mg oral capsule 1 mg, 1, capsule, By Mouth, Daily at bedtime, for nightmares, # 30 capsule, Refills 0, Tot. Refills0, Maintenance, 05/30/19 18:52:00 EST, Route to Pharmacy Electronically, [facility]/pharmacy #[id number], 160, cm, 05/30/19 18:08:00 EST, Height, 88.9, kg, 05/23/19... Start Date: 05/30/19 Status: Ordered raNITIdine 300 mg oral tablet See Instructions, # 30 tablet, Refills 2 Tot. Refills 2, TAKE 1 TABLET BY MOUTH EVERYDAY AT BEDTIME, [facility]/pharmacy #[id number] Start Date: 01/27/19 Status: Ordered Senexon-S 2 tablet, By Mouth, Daily at bedtime, 0 Refills, Maintenance, 11/25/18 10:10:49 EDT Start Date: 11/25/18 Status: Ordered senna 187 mg oral tablet 1 tablet = 8.6 mg, By Mouth, Daily at bedtime, PRN as needed for constipation, # 100 tablet, 5 Refills, Maintenance, 05/04/19 9:35:00 EST, [facility]/pharmacy #[id number], 158, cm, 04/28/19 14:51:00 EST, Height, 82, kg, 04/01/19 16:10:00 EST, Dry Weight Start Date: 05/04/19 Status: Ordered Senna 8.6 mg oral tablet 8.6 mg, 1, tablet, By Mouth, Daily at bedtime, # 100 tablet, Refills 2, Tot. Refills 2, Maintenance, 06/10/19 16:12:00 EST, Route to Pharmacy Electronically, [facility]/pharmacy #[id number], 160, cm, 06/01/19 14:08:00 EST, Height, 88.9, kg, 05/23/19 22:09:00 EST,... Start Date: 06/10/19 Status: Ordered Spiriva Respimat 60 ACT 2.5 mcg/inh inhalation aerosol 2 puffs, Inhalation, Daily, # 1 each, 5 Refills, Maintenance, 04/26/19 10:30:00 EST, [facility]/pharmacy #[id number], 158, cm, 04/26/19 9:58:00 EST, Height, 82, kg, 04/01/19 16:10:00 EST, Dry Weight Start Date: 04/26/19 Status: Ordered tiZANidine 2 mg oral tablet 2 mg, 1, tablet, By Mouth, 2 times a day, PRN, # 30 tablet, Refills 2, Tot. Refills 2, Maintenance,as needed for muscle spasm, 07/25/19 8:41:00 EDT, Route to Pharmacy Electronically, [facility]/pharmacy #[id number], 160, cm, 07/22/19 15:08:00 EDT, Height, [...] on CPAP(Confirmed) Active Panic attacks(Confirmed) Active *[facility]/Efrem Macdonald-[phone]/Health residential, active care coordination(Confirmed) Active Acute meniscal tear of right knee(Confirmed) 6 06/2015 Active Tobacco dependence(Confirmed) Active DM2 (diabetes mellitus, type 2)(Confirmed) 04/03/17 Active Incontinence of urine(Confirmed) 7 Active 1surgically repaired November 2015, Dr. Sg MENDEZ 2DJD Lumbar Spine per MRI 3L3-L4 disc herniation per client report 4seen on MRI 10/2016, rec repeat imaging in October [address] Abd 09/18/16 at [facility] [place], pending MRI 6surgically repaired July 2015 Dr. Sg MENDEZ 7urge and stress Social History Social History Type Response Tobacco Use: Pt states she q uit smoking 1 week ago. Sex Female
--- OUTSIDE RECORDS SUMMARY | 2023-03-25 08:19 | XMS_ITS | Continuity of Care Document ---
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 Start Date: 04/05/20 Status: Ordered albuterol 0.083% inhalation solution 3 mL = 2.5 mg, Inhalation, Every 4 hours, PRN for wheezing, # 100 each, 5 Refills, Maintenance, 06/27/19 14:32:00 EDT, Solution, [facility]/pharmacy #[id number], 160, cm, 06/01/19 14:08:00 EST, Height, 88.9, kg, 05/23/19 22:09:00 EST, Dry Weight Start Date: 06/27/19 Status: Ordered amitriptyline 50 mg oral tablet 1 tablet = 50 mg, By Mouth, Daily at bedtime, # 30 tablet, 5 Refills, Maintenance, 12/30/19 18:21:00 EDT, Tablet, [facility]/pharmacy #[id number], 163, cm, 12/26/19 13:58:00 EDT, Height, 80, kg, 10/29/19 0:29:00 EDT, Dry Weight Start Date: 12/30/19 Status: Ordered atorvastatin 20 mg oral tablet 1 tablet = 20 mg, By Mouth, Daily, # 90 tablet, 3 Refills, Maintenance, 04/05/20 14:11:00 EST, Tablet, [facility]/pharmacy #[id number], Partial fill upon patient request if the prescription is for a schedule II opioid drug., 162.56, cm, 03/27/20 11:36:00 EST, Heig... Start Date: 04/05/20 Status: Ordered capsaicin 0.025% topical cream 1 application, Topically, 3 times a day, # 45 Gm, 3 Refills, Maintenance, 11/01/19 15:25:00 EDT, Cream, [facility]/pharmacy #[id number], 1 application Topically 3 times a day, 163, cm, 11/01/19 14:40:00 EDT, Height, 80, kg, 10/29/19 0:29:00 EDT, Dry Weight Start Date: 11/01/19 Status: Ordered cetirizine 10 mg oral tablet 1 tablet = 10 mg, By Mouth, Daily, # 30 tablet, 5 Refills, Maintenance, 06/20/20 13:18:00 EDT, Tablet, [facility]/pharmacy #[id number], 162, cm, 05/24/20 9:01:00 EST, Height, 80, kg, 04/18/20 9:48:00 EST, Dry Weight Start Date: 06/20/20 Status: Ordered clonazePAM 0.5 mg oral tablet TAKE 1 TABLET BY MOUTH TWICE A DAY NEEDED Start Date: 06/02/19 Status: Ordered clotrimazole 1% topical cream 1 application, Topically, 2 times a day, # 30 Gm, 1 Refills, Maintenance, 06/04/20 12:46:00 EST, Cream, [facility]/pharmacy #[id number], 1 application Topically 2 times [...] 5 Refills, Maintenance, 03/02/20 11:18:00 EST, Capsule, [facility]/pharmacy #[id number], Partial fill upon patient request. [...] mL, 11 Refills, Maintenance, 05/07/20 13:24:00 EST,Solution, [facility]/pharmacy #[id number], increased dose 12/26/19, 162, cm, 04/21/20 11:33:00 EST, Height, 80, kg, 04/18/20 9:48:00 EST, Dry Weight Start Date: 05/07/20 Status: Ordered lidocaine 5% topical film 1 patch, Topically, Daily, For chronic radicular back pain, # 30 patch, 5 Refills, Maintenance, 03/09/20 8:53:00 EST, [facility]/pharmacy #[id number], 1 patch Topically Daily,Instr:For chronic radicular back pain, 163, cm, 12/26/19 13:58:00 EDT, Height, 80, kg, 07... Start Date: 03/09/20 Status: Ordered lisinopril 20 mg oral tablet 20 mg, 1, tablet, By Mouth, Daily, # 30 tablet, Refills 11, Tot. Refills 11, Maintenance, 05/07/20 13:30:00 EST, Route to Pharmacy Electronically, [facility]/pharmacy #[id number], 162, cm, 04/21/20 11:33:00 EST, Height, 80, kg, 04/18/20 9:48:00 EST, Dry Weight Start Date: 05/07/20 Status: Ordered Mapap 325 mg oral tablet 2 tablet = 650 mg, By Mouth, Every 4 hours, PRN for pain, not to exceed 3000 mg/day. instructions in hebrew, # 120 tablet, 2 Refills, Maintenance, 11/01/19 15:24:00 EDT, Tablet, [facility]/pharmacy #[id number], 163, cm, 11/01/19 14:40:00 EDT, [...] 2 Refills, Maintenance, 04/05/20 14:08:00 EST, Tablet, [facility]/pharmacy #[id number], Partial fill upon patient request if the prescription is for a schedule II opioid drug., 162.56, cm, ... Start Date: 04/05/20 Status: Ordered omeprazole 40 mg oral enteric coated capsule 1 capsule = 40 mg, By Mouth, Daily, # 30 capsule, 3 Refills, Maintenance, 05/24/20 9:40:00 EST, EC Capsule, [facility]/pharmacy #[id number], note dose increase, 162, cm, 05/24/20 [...] day, for 28 days, on contract at [facility], # 56 tablet, 0 Refills, Acute 07/30/20 8:00:00 EDT, 07/02/20 8:00:00 EDT, [facility]/pharmacy #[id number], Partial fill upon patient request if the prescription is for a schedule II opioi... Start Date: 07/02/20 Stop Date: 07/30/20 Status: Ordered Senna 8.6 mg oral tablet 8.6 mg, 1, tablet, By Mouth, Daily at bedtime, # 100 tablet, Refills 2, Tot. Refills 2, Maintenance, 06/04/20 12:46:00 EST, Route to Pharmacy Electronically, [facility]/pharmacy #[id number], 162, cm, 05/24/20 9:01:00 EST, Height, 80, kg, 04/18/20 9:48:00 EST, Dry... Start Date: 06/04/20 Status: Ordered Soma 350 mg oral tablet 350 mg, 1, tablet, By Mouth, 3 times a day, # 9 tablet, Refills 0, Tot. Refills 0, Maintenance, 05/04/20 15:46:00 EST, Route to Pharmacy Electronically, [facility]/pharmacy #[id number], Partial fill upon patient request if the prescription is for a schedule II opi... Start Date: 05/04/20 Status: Ordered Spiriva Respimat 60 ACT 2.5 mcg/inh inhalation aerosol 2 puffs, Inhalation, Daily, # 1 each, 11 Refills, Maintenance, 04/05/20 14:17:00 EST, [facility]/pharmacy #[id number], Partial fill upon patient request if the prescription is for a schedule II opioid drug., 162.56, cm, 03/27/20 11:36:00 EST, Height, 81.81, kg, 12... Start Date: 04/05/20 Status: Ordered tiZANidine 4 mg oral tablet 4 mg, 1, tablet, By Mouth, Every 8 hours, PRN, # 84 tablet, Refills 1, Tot. Refills 1, Maintenance,Spasm, 05/03/20 11:26:00 EST, [id number], cm, 04/21/20 11:33:00 EST, Height, [...]
--- OUTSIDE RECORDS SUMMARY | 2023-03-25 08:19 | XMS_ITS | Continuity of Care Document ---
Author Name Unknown Organization [facility] Address [address] [place] [address]- Care Team Providers Care Communications Associate Name Role Phone Richardson QUIROZ, Leonora Pérez Primary Care Physician Encounter [facility] Date(s): 05/09/20 - 06/08/20 [facility] [address] [place] [address]- Allergies, Adverse Reactions, Alerts Substance Reaction Severity [...] 14:12:00 EST, Powder, Route to Pharmacy Electronically, [id number], [facility]/pharmacy #[id number], 162.56, cm, 03/27/20 11:36:00... Start [...] 5 Refills, Maintenance, 12/30/19 18:21:00 EDT, Tablet, [facility]/pharmacy #[id number], 163, cm, 12/26/19 13:58:00 EDT, Height, 80, kg, 10/29/19 0:29:00 EDT, Dry Weight Start Date: 12/30/19 Status: Ordered atorvastatin 20 mg oral tablet 1 tablet = 20 mg, By Mouth, Daily, # 90 tablet, 3 Refills, Maintenance, 04/05/20 14:11:00 EST, Tablet, [facility]/pharmacy #[id number], Partial fill upon patient request if the prescription is for a schedule II opioid drug., 162.56, cm, 03/27/20 11:36:00 EST, Heig... Start Date: 04/05/20 Status: Ordered capsaicin 0.025% topical cream 1 application, Topically, 3 times a day, # 45 Gm, 3 Refills, Maintenance, 11/01/19 15:25:00 EDT, Cream, [facility]/pharmacy #[id number], 1 application Topically 3 times a day, 163, cm, 11/01/19 14:40:00 EDT, Height, 80, kg, 10/29/19 0:29:00 EDT, Dry Weight Start Date: 11/01/19 Status: Ordered cetirizine 10 mg oral tablet 1 tablet = 10 mg, By Mouth, Daily, # 30 tablet, 5 Refills, Maintenance, 12/13/19 18:32:00 EDT, Tablet, [facility]/pharmacy #[id number], 163, cm, 12/13/19 15:57:00 EDT, Height, 80, kg, 10/29/19 0:29:00 EDT, Dry Weight Start Date: 12/13/19 Status: Ordered clonazePAM 0.5 mg oral tablet TAKE 1 TABLET BY MOUTH TWICE A DAY NEEDED Start Date: 06/02/19 Status: Ordered clotrimazole 1% topical cream 1 application, Topically, 2 times a day, # 30 Gm, 1 Refills, Maintenance, 06/04/20 12:46:00 EST, Cream, [facility]/pharmacy #[id number], 1 application Topically 2 [...] mL, 11 Refills, Maintenance, 05/07/20 13:24:00 EST,Solution, [facility]/pharmacy #[id number], increased dose 12/26/19, 162, cm, 04/21/20 11:33:00 EST, Height, 80, kg, 04/18/20 9:48:00 EST, Dry Weight Start Date: 05/07/20 Status: Ordered lidocaine 5% topical film 1 patch, Topically, Daily, For chronic radicular back pain, # 30 patch, 5 Refills, Maintenance, 03/09/20 8:53:00 EST, [facility]/pharmacy #[id number], 1 patch Topically Daily,Instr:For chronic radicular back pain, 163, cm, 12/26/19 13:58:00 EDT, Height, 80, kg, 07... Start Date: 03/09/20 Status: Ordered lisinopril 20 mg oral tablet 20 mg, 1, tablet, By Mouth, Daily, # 30 tablet, Refills 11, Tot. Refills 11, Maintenance, 05/07/20 13:30:00 EST, Route to Pharmacy Electronically, [facility]/pharmacy #[id number], 162, cm, 04/21/20 11:33:00 EST, Height, 80, kg, 04/18/20 9:48:00 EST, Dry Weight Start Date: 05/07/20 Status: Ordered Mapap 325 mg oral tablet 2 tablet = 650 mg, By Mouth, Every 4 hours, PRN for pain, not to exceed 3000 mg/day. instructions in [place], # 120 tablet, 2 Refills, Maintenance, 11/01/19 15:24:00 EDT, Tablet, [facility]/pharmacy #[id number], 163, cm, 11/01/19 14:40:00 EDT, [...] 2 Refills, Maintenance, 04/05/20 14:08:00 EST, Tablet, [facility]/pharmacy #[id number], Partial fill upon patient request if the prescription is for a schedule II opioid drug., 162.56, cm, ... Start Date: 04/05/20 Status: Ordered omeprazole 40 mg oral enteric coated capsule 1 capsule = 40 mg, By Mouth, Daily, # 30 capsule, 3 Refills, Maintenance, 05/24/20 9:40:00 EST, EC Capsule, [facility]/pharmacy #[id number], note dose increase, 162, cm, [...] days, # 56 tablet, 0 Refills, Acute 07/02/20 12:45:00 EDT, 06/04/20 12:45:00 EST, [facility]/pharmacy #[id number], Partial fill upon patient request if the prescription is for a schedule II opioid drug. Client on c... Start Date: 06/04/20 Stop Date: 07/02/20 Status: Ordered Senna 8.6 mg oral tablet 8.6 mg, 1, tablet, By Mouth, Daily at bedtime, # 100 tablet, Refills 2, Tot. Refills 2, Maintenance, 06/04/20 12:46:00 EST, Route to Pharmacy Electronically, [facility]/pharmacy #[id number], 162, cm, 05/24/20 9:01:00 EST, Height, 80, kg, 04/18/20 9:48:00 EST, Dry... Start Date: 06/04/20 Status: Ordered Soma 350 mg oral tablet 350 mg, 1, tablet, By Mouth, 3 times a day, # 9 tablet, Refills 0, Tot. Refills 0, Maintenance, 05/04/20 15:46:00 EST, Route to Pharmacy Electronically, [facility]/pharmacy #[id number], Partial fill upon patient request if the prescription is for a schedule II opi... Start Date: 05/04/20 Status: Ordered Spiriva Respimat 60 ACT 2.5 mcg/inh inhalation aerosol 2 puffs, Inhalation, Daily, # 1 each, 11 Refills, Maintenance, 04/05/20 14:17:00 EST, [facility]/pharmacy #[id number], Partial fill upon patient request if the prescription is for a schedule II opioid drug., 162.56, cm, 03/27/20 11:36:00 EST, Height, 81.81, kg, 12... Start Date: 04/05/20 Status: Ordered tiZANidine 4 mg oral tablet 4 mg, 1, tablet, By Mouth, Every 8 hours, PRN, # 84 tablet, Refills 1, Tot. Refills 1, Maintenance,Spasm, 05/03/20 11:26:00 EST, Route to Pharmacy Electronically, [facility]/pharmacy #[id number], 162, cm, 04/21/20 11:33:00 EST, [...] [address] Abd 09/18/16 at [facility], [place] 3urge and stress Social History Social History Type Response Tobacco Use: Pt states she q uit smoking 1 week ago. Sex
--- OUTSIDE RECORDS SUMMARY | 2023-03-25 08:19 | XMS_ITS | Continuity of Care Document ---
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 Role Phone Richardson QUIROZ, Leonora Pérez Primary Care Physician [facility] [facility] Date(s): 11/20/22 - 12/20/22 [facility] [address], [place] [address] Encounter Diagnosis INA (stress urinary incontinence, female)(Discharge Diagnosis) - 02/11/19 Attending Physician: Clarence Reynaga Admitting Physician: Clarence Reynaga Referring Physician: Clarence Reynaga Allergies, Adverse Reactions, Alerts Substance Reaction Severity Status morphine Active gabapentin swelling Active Lyrica dysphagia Active SEROquel body swelling - all over Act tony MetFORMIN Hydrochloride ER black tarry stool Active Immunizations Given and Recorded Vaccine Date Status Refusal Reason [id number] 12y+ bivalent booster vax 01/30/22 Given influenza virus vaccine, inactivated 01/30/22 Give n influenza virus vaccine, inactivated 02/04/21 Give n influenza virus vaccine, inactivated 1 04/19/20 Gi tonio influenza virus vaccine, inactivated 03/12/19 Give n influenza virus vaccine, inactivated 01/19/18 Give n influenza virus vaccine, inactivated 02/16/17 Give n pneumococcal 20-valent conjugate vaccine 12/26/21 Given SARS-CoV-2 mRNA ([id number]) vax 05/14/21 Given SARS-CoV-2 (COVID-19) mRNA BNT-162b2 [...] 09/25/22 17:00:00 EDT, Route to Pharmacy Electronically, [facility], Partial fill upon patient request if the prescription is for a sched... Start Date: 09/25/22 Status: Ordered Advair Diskus 500 mcg-50 mcg inhalation powder 1, inhalation, Inhalation, 2 times a day, rinse mouth and throat after use, # 60 each, Refills 11, Tot. Refills 11, Maintenance, 09/25/22 17:00:00 EDT, Inhaler, Route to Pharmacy Electronically, [id number], [facility]... Start Date: 09/25/22 Status: Ordered albuterol 0.083% inhalation solution 3 mL = 2.5 mg, 0 Refills, Maintenance, 02/06/22 16:39:00 EDT, Partial fill upon patient request if the prescription is for a schedule II opioid drug. Start Date: 02/06/22 Status: Ordered All Day Allergy 10 mg oral tablet 1 tablet, By Mouth, Daily, # 90 tablet, 3 Refills, Maintenance, 11/20/22 16:48:00 EDT, [facility], 163, cm, 11/20/22 16:00:00 EDT, Height, 83, kg, 02/11/22 19:19:00 EST, Dry Weight Start Date: 11/20/22 Status: Ordered amLODIPine 5 mg oral tablet 5 mg, 1, tablet, By Mouth, Daily, # 90 tablet, Refills 3, Tot. Refills 3, Maintenance, 04/29/22 11:56:00 EST, Route to Pharmacy Electronically, [facility], Partial fill upon patient request if the prescription is for a schedule II opio... Start Date: 04/29/22 Status: Ordered atorvastatin 40 mg oral tablet 1 tablet = 40 mg, By Mouth, Daily, # 90 tablet, 3 Refills, Maintenance, 09/25/22 16:58:00 EDT, Tablet, [facility] Partial fill upon patient request if [...] 0 Refills, Maintenance, 07/25/22 17:58:00 EDT, [facility]., Partial fill upon patient request [...] Gm, 1 Refills, Maintenance, 09/03/22 14:02:00 EDT, [facility], 15, APPLY TOPICALLY TO AFFECTED AREA TWO TIMES A DAY,163, cm, 08/14/22 16:50:00 EDT, Height, 83, kg, 11/... Start Date: 09/03/22 Status: Ordered docusate-senna 50 mg-187 mg oral tablet 2 tablet, By Mouth, 2 times a day, PRN Constipation, # 100 tablet, 11 Refills, Maintenance, 08/14/22 16:57:00 EDT, Tablet, [facility] Partial fill upon patient request if the prescription is for a schedule II opioid drug., 2 tablet By... Start Date: 08/14/22 Status: Ordered duloxetine 60 mg oral enteric coated capsule 2 capsule = 120 mg, By Mouth, Daily, # 60 capsule, 11 Refills, Maintenance, 11/20/22 16:48:00 EDT, Capsule, [facility], Partial fill upon patient request. NOT INCREASED DOSE. Please cancel all other Duloxetine scripts, 163, cm, ... Start Date: 11/20/22 Status: Ordered empagliflozin 10 mg oral tablet 1 tablet = 10 mg, By Mouth, Daily in AM, # 90 tablet, 3 Refills, Maintenance, 09/25/22 17:01:00 EDT, Tablet, [facility], Partial fill upon patient [...] 10/22/22 15:19:00 EDT, Route to Pharmacy Electronically, [facility], 163, cm, 09/25/22 16:20:00 EDT, Height, 83, kg, 11/0... Start Date: 10/22/22 Status: Ordered Januvia 100 mg oral tablet 1 tablet, By Mouth, Daily, # 30 tablet, 11 Refills, Maintenance, 11/26/22 10:02:00 EDT, [facility], 163, cm, 11/20/22 16:00:00 EDT, Height, 83, kg, 02/11/22 19:19:00 EST, Dry Weight Start Date: 11/26/22 Status: Ordered lidocaine 5% topical film 1 patch, Topically, Daily, PRN Pain , Mild, remove after 12 hours, # 13 each, 5 Refills, Maintenance, 09/25/22 16:59:00 EDT, Film, [facility]., Partial fill upon patient request if theprescription is for a schedule II opioid drug., 1 p... Start Date: 09/25/22 Status: Ordered lisinopril 20 mg oral tablet 20 mg, 1, tablet, By Mouth, Daily, # 90 tablet, Refills 3, Tot. Refills 3, Maintenance, 11/20/22 16:48:00 EDT, Route to Pharmacy Electronically, [facility]., 163, cm, 11/20/22 16:00:00EDT, Height, 83, kg, 02/11/22 19:19:00 EST, Dry Weight Start Date: 11/20/22 Status: Ordered mirtazapine 30 mg oral tablet 1 tablet = 30 mg, By Mouth, Daily at bedtime, # 90 tablet, 1 Refills, Maintenance, 09/25/22 17:00:00 EDT, Tablet, [facility], Partial fill upon patient request if the prescription is for a schedule II opioid drug., 163, cm, 09/25/22 16... Start Date: 09/25/22 Status: Ordered omeprazole 40 mg oral enteric coated capsule 1 capsule, By Mouth, Daily, PRN NEEDED, # 90 capsule, 1 Refills, Maintenance, 11/25/22 10:53:00 EDT, [facility], 163, cm, 11/20/22 16:00:00 EDT, Height, 83, kg, 02/11/22 19:19:00 EST, Dry Weight Start Date: 11/25/22 Status: Ordered oxyCODONE 15 mg oral tablet 1 tablet = 15 mg, By Mouth, 3 times a day, on contract at [facility], # 84 tablet, 0 Refills, Maintenance, 11/21/22 15:54:00 EDT, [facility]., Partial fill upon patient request [...] 11/21/22 15:54:00 EDT, Route to Pharmacy Electronically, [facility], 163, cm, 11/20/22 16:00:00 EDT, Height, 83, kg, 02/11/22 19:19:00 E... Start Date: 11/21/22 Status: Ordered traZODone 50 mg oral tablet 1/2 TO 1 TABLET, By Mouth, Daily at bedtime, # 30 tablet, Refills 5, Maintenance, 08/29/22 11:31:00EDT, Route to Pharmacy Electronically, [facility], 163, cm, 08/14/22 16:50:00 EDT, Height, 83, kg, 02/11/22 19:19:00 EST, Dry Weight Start Date: 08/29/22 Status: Ordered triamcinolone 55 mcg/inh nasal spray 1 sprays = 55 mcg, Nares, Both, Daily, # 1 each, 5 Refills, Maintenance, 08/14/22 16:59:00 EDT, [facility]., Partial fill upon patient request if the prescription is for a schedule II opioid drug., 1 sprays Nares, Both Daily, 163, cm, 0... 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 Charlene Fabian [phone] Confirmed Active Syncope and collapse Confirmed Active Tobacco dependence Confirmed Active DM2 (diabetes mellitus, type 2) Confirmed 04/03/17 Active Incontinence of urine 3 Confirmed Active 1seen on MRI 10/2016, rec repeat imaging in October [address] Abd 09/18/16 at [facility], pending [place] 3urge and stress Diagnosis Diagnosis [...] Date: * Event Display: X-Ray Spine, Non- BH Authored Date: * Event Display: MRI Spine, Non- BH Authored Date: * Event Display: IR Special Procedures, Non-BH Authored Date: Patient Care team information Care Team Personnel Name: Sindy Bernal RN Position: S RN Member Role: Primary Care Nurse Name: Graciela Thrasher RN Position: S RN Member Role: Primary Care Nurse Name: Stevie Angel RN Position: S RN Member Role: Primary Care Nurse Name: Richardson QUIROZ, Leonora Pérez Position: [facility] PCO Associate Professional Member Role: PCP Address: Address: [address] [place] [address] [place] [address]- Name: Keily Ortega RN Position: [facility] RN Member Role: Primary Care Nurse Name: Nichole Pichardo RN Position: [facility] RN Member Role: Primary Care Nurse Name: Melvin Whitfield RN Position: [facility] AMB Nurse Member Role: Primary Care Nurse Name: Phuong Berkowitz RN Position: [facility] RN Member Role: Primary Care Nurse Name: Joselyn Rain RN Position: [facility] Hospital Donor Support Technician Member Role: Primary Care Nurse Care Team Related Persons Name: IRA ROMERO Address: home [address] [place] [address] Name: JHON LARSON Address: home [address] [place] [address] Name: JHON LARSON Address: [address] [place] [address] Name: GALO CATALAN Name: NANCY CATALAN Address: home [address] [place] [address]
--- OUTSIDE RECORDS SUMMARY | 2023-03-25 08:19 | XMS_ITS | Continuity of Care Document ---
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 Start Date: 04/27/19 Status: Ordered albuterol 0.083% inhalation solution 3 mL = 2.5 mg, Inhalation, Every 4 hours, PRN for wheezing, # 100 each, 5 Refills, Maintenance, 06/27/19 14:32:00 EDT, Solution, [facility]/pharmacy #[id number], 160, cm, 06/01/19 14:08:00 EST, [...] 08/01/19 15:23:00 EDT, 07/22/19 15:23:00 EDT, Tablet, [facility]/pharmacy #[id number], 1 tablet By Mouth 2 times a day,x10 days, 160, cm, 07/22/19 15:08:00 EDT, Height, 86.8, kg, ... Start Date: 07/22/19 Stop Date: 08/01/19 Status: Ordered cetirizine 10 mg oral tablet 1 tablet = 10 mg, By Mouth, Daily, # 30 tablet, 5 Refills, Maintenance, 04/19/19 15:40:00 EST, Tablet, [facility]/pharmacy #[id number], 158, cm, 04/04/19 15:21:00 EST, Height, 82, kg, 04/01/19 16:10:00 EST, Dry Weight Start Date: 04/19/19 Status: Ordered clonazePAM 0.5 mg oral tablet TAKE 1 TABLET BY MOUTH TWICE A DAY NEEDED Start Date: 06/02/19 Status: Ordered clotrimazole 1% topical cream 1 application, Topically, 2 times a day, # 30 Gm, 0 Refills, Maintenance, 05/30/19 19:02:00 EST, Cream, [facility]/pharmacy #[id number], 1 application Topically 2 times [...] 5 Refills, Maintenance, 04/28/19 16:05:00 EST, Tablet, [facility]/pharmacy #[id number], 158, cm, 04/28/19 14:51:00 EST, Height, 82, kg, 04/01/19 16:10:00 EST, Dry Weight Start Date: 04/28/19 Status: Ordered lidocaine 5% topical film 1 patch, Topically, Daily, For chronic radicular back pain, # 30 patch, 5 Refills, Maintenance, 06/27/19 14:37:00 EDT, [facility]/pharmacy #[id number], 1 patch Topically Daily,Instr:For chronic radicular back pain, 160, cm, 06/01/19 14:08:00 EST, Height, 88.9, kg,... Start Date: 06/27/19 Status: Ordered lisinopril 10 mg oral tablet 10 mg, 1, tablet, By Mouth, Daily, # 90 tablet, Refills 3, Tot. Refills 3, Maintenance, 05/08/19 20:27:00 EST, Route to Pharmacy Electronically, [facility]/pharmacy #[id number], to replace 2.5mg dose, 158, cm, 05/05/19 13:36:00 EST, Height, 82, kg, 12/27/19 16:10:... Start Date: 05/08/19 Stop Date: 05/02/20 [...] romanian, # 120 tablet, 2 Refills, Maintenance, 07/25/19 8:41:00 EDT, Tablet, [facility]/pharmacy #[id number], 160, cm, 07/22/19 15:08:00 EDT, [...] pain, for 28 days, on contract at [facility]., # 56 tablet, 0 Refills, Acute 08/04/19 13:49:00 EDT, 07/07/19 13:49:00 EDT, [id number], Partial fill upon patient request, 160, cm, 06/01/19 14:08:00 EST,... Start Date: 07/07/19 Stop Date: 08/04/19 Status: Ordered prazosin 1 mg oral capsule 1 mg, 1, capsule, By Mouth, Daily at bedtime, for nightmares, # 30 capsule, Refills 0, Tot. Refills0, Maintenance, 05/30/19 18:52:00 EST, Route to Pharmacy Electronically, [facility]/pharmacy #[id number], 160, cm, 05/30/19 18:08:00 EST, Height, 88.9, kg, 05/23/19... Start Date: 05/30/19 Status: Ordered raNITIdine 300 mg oral tablet See Instructions, # 30 tablet, Refills 2 Tot. Refills 2, TAKE 1 TABLET BY MOUTH EVERYDAY AT BEDTIME, [facility]/pharmacy #[id number] Start Date: 01/27/19 Status: Ordered Senexon-S 2 tablet, By Mouth, Daily at bedtime, 0 Refills, Maintenance, 11/25/18 10:10:49 EDT Start Date: 11/25/18 Status: Ordered senna 187 mg oral tablet 1 tablet = 8.6 mg, By Mouth, Daily at bedtime, PRN as needed for constipation, # 100 tablet, 5 Refills, Maintenance, 05/04/19 9:35:00 EST, [facility]/pharmacy #[id number], 158, cm, 04/28/19 14:51:00 EST, Height, 82, kg, 04/01/19 16:10:00 EST, Dry Weight Start Date: 05/04/19 Status: Ordered Senna 8.6 mg oral tablet 8.6 mg, 1, tablet, By Mouth, Daily at bedtime, # 100 tablet, Refills 2, Tot. Refills 2, Maintenance, 06/10/19 16:12:00 EST, Route to Pharmacy Electronically, [facility]/pharmacy #[id number], 160, cm, 06/01/19 14:08:00 EST, Height, 88.9, kg, 05/23/19 22:09:00 EST,... Start Date: 06/10/19 Status: Ordered Spiriva Respimat 60 ACT 2.5 mcg/inh inhalation aerosol 2 puffs, Inhalation, Daily, # 1 each, 5 Refills, Maintenance, 04/26/19 10:30:00 EST, [facility]/pharmacy #[id number], 158, cm, 04/26/19 9:58:00 EST, Height, 82, kg, 04/01/19 16:10:00 EST, Dry Weight Start Date: 04/26/19 Status: Ordered tiZANidine 2 mg oral tablet 2 mg, 1, tablet, By Mouth, 2 times a day, PRN, # 30 tablet, Refills 2, Tot. Refills 2, Maintenance,as needed for muscle spasm, 07/25/19 8:41:00 EDT, Route to Pharmacy Electronically, [facility]/pharmacy #[id number], 160, cm, 07/22/19 15:08:00 EDT, [...] on CPAP(Confirmed) Active Panic attacks(Confirmed) Active *BHN/BHCP/Efrem Macdonald-[phone]/Health retirement, active care coordination(Confirmed) Active Acute meniscal tear of right knee(Confirmed) 06/2015 Active Tobacco dependence(Confirmed) Active DM2 (diabetes mellitus, type 2)(Confirmed) 04/03/17 Active Incontinence of urine(Confirmed) 7 Active 1surgically repaired November 2015, Dr. Sg MENDEZ 2DJD Lumbar Spine per MRI 3L3-L4 disc herniation per client report 4seen on MRI 10/2016, rec repeat imaging in October [address] Abd 09/18/16 at [facility], pending MRI 6surgically repaired July 2015 Dr. Sg MENDEZ 7urge and stress Vital Signs Most recent to oldest [Reference Range]: 1 Height 160 cm (07/18/19 2:05 PM) Weight 81.81 kg (07/18/19 2:05 PM) Body Mass Index [18.5-24.99] 31.96 *>HHI* (07/18/19 2:05 PM) Social History Social History Type Response Tobacco Use: Pt states she q uit smoking 1 week ago. Sex Female
--- OUTSIDE RECORDS SUMMARY | 2023-03-25 08:20 | XMS_ITS | Continuity of Care Document ---
Author Name Unknown Organization [facility] [facility] Address 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. Start Date: 01/16/21 Status: Ordered Advair Diskus 500 mcg-50 mcg inhalation powder 1, puffs, Inhalation, 2 times a day, [id number], # 1 each, Refills 11, Tot. Refills 11, Maintenance, 04/05/20 14:12:00 EST, Powder, Route to Pharmacy Electronically, [id number], [facility]/pharmacy #[id number], 162.56, cm, 03/27/20 11:36:00... Start Date: 04/05/20 Status: Ordered albuterol 0.083% inhalation solution 3 mL = 2.5 mg, Inhalation, Every 4 hours, PRN for wheezing, # 100 each, 2 Refills, Maintenance, 08/15/20 10:22:00 EDT, Solution, [facility]/pharmacy #[id number], 163, cm, 08/09/20 8:45:00 EDT, Height, 84.8, kg, 06/25/20 20:28:00 EDT, Dry Weight Start Date: 08/15/20 Status: Ordered amitriptyline 50 mg oral tablet See Instructions, 1.5 tablets by Mouth Daily at bedtime, # 45 each, 1 Refills, 03/21/21 16:11:00 EST, [facility]/pharmacy #[id number], 162.5, cm, 03/14/21 10:31:00 EST, Height, 90.9, kg, 02/02/21 5:59:00 EDT, DryWeight Start Date: 03/21/21 Status: Ordered atorvastatin 20 mg oral tablet 3 tablet = 60 mg, By Mouth, Daily, # 90 tablet, 3 Refills, Maintenance, 04/05/20 14:11:00 EST, Tablet, [facility]/pharmacy #[id number], Partial fill upon patient request if the prescription is for a schedule II opioid drug., 162.56, cm, 03/27/20 11:36:00 EST, Heig... Start Date: 04/05/20 Status: Ordered capsaicin 0.025% topical cream 1 application, Topically, 3 times a day, # 45 Gm, 3 Refills, Maintenance, 11/01/19 15:25:00 EDT, Cream, [facility]/pharmacy #[id number], 1 application Topically 3 times a day, 163, cm, 11/01/19 14:40:00 EDT, Height, 80, kg, 10/29/19 0:29:00 EDT, Dry Weight Start Date: 11/01/19 Status: Ordered cetirizine 10 mg oral tablet 1 tablet = 10 mg, By Mouth, Daily, # 30 tablet, 5 Refills, Maintenance, 06/20/20 13:18:00 EDT, Tablet, [facility]/pharmacy #[id number], 162, cm, 05/24/20 9:01:00 EST, Height, 80, kg, 04/18/20 9:48:00 EST, Dry Weight Start Date: 06/20/20 Status: Ordered cholecalciferol 5000 intl units oral capsule 1 capsule = 125 mcg, By Mouth, Daily, with food, # 100 capsule, 2 Refills, Maintenance, 02/11/21 11:17:00 EST, Capsule, [facility]/pharmacy #[id number], Partial fill upon patient request [...] 16 mL, 1 Refills, Maintenance, [id number], 30, USE 1 SPRAY IN BOTH NOSTRILS [...] 2 Refills, Maintenance, 03/01/21 12:42:00 EST, Tablet, [facility]/pharmacy #[id number], 155, cm, 02/18/21 14:54:00 EST, Height, 90.9, kg, 02/02/21 5:59:00 EDT, DryWeight Start Date: 03/01/21 Status: Ordered Lantus 100 u/ml subcutaneous solution = 40 units, Subcutaneous Injection, Daily, # 12 mL, 2 Refills, Maintenance, 03/01/21 12:42:00 EST, Solution, [facility]/pharmacy #[id number], increased dose 12/26/19, 155, cm, 02/18/21 14:54:00 EST, Height, 90.9, kg, 02/02/21 5:59:00 EDT, Dry Weight Start Date: 03/01/21 Status: Ordered lidocaine 5% topical film 1 patch, Topically, Daily, For chronic radicular back pain, # 30 patch, 5 Refills, Maintenance, 10/11/20 8:15:00 EDT, [facility]/pharmacy #[id number], 1 patch Topically Daily,Instr:For chronic radicular back pain, 163, cm, 08/15/20 14:23:00 EDT, Height, 84.8, kg,... Start Date: 10/11/20 Status: Ordered lisinopril 20 mg oral tablet 20 mg, 1, tablet, By Mouth, Daily, # 90 tablet, Refills 3, Tot. Refills 3, Maintenance, 04/12/21 13:24:00 EST, Route to Pharmacy Electronically, [facility]/pharmacy #[id number], 162.5, cm, 03/22/21 14:58:00 EST, [...] 0 Refills, Maintenance, 08/15/20 15:59:00 EDT, Capsule, [facility]/pharmacy #[id number], Partial fill upon patient request if the prescription is for a schedule II opioid drug., 163, cm, 08/15/20 14:23:00 EDT, Heig... Start Date: 08/15/20 Status: Ordered mirabegron 25 mg oral tablet, extended release 1 tablet = 25 mg, By Mouth, Daily, do not crush or chew, # 30 tablet, 11 Refills, Maintenance, 12/31/20 15:58:00 EDT, ER Tablet, [facility]/pharmacy #[id number], Partial fill upon patient request [...] 1 Refills, Maintenance, 01/31/21 14:16:00 EDT, Tablet, [facility], Partial fill upon patient request if the prescription is for a schedule II opioid drNishant.. Start Date: 01/31/21 Status: Ordered omeprazole 40 [...] 2 times a day, for 28 days, MASSPAT CHECKED PT ON CONTRACT AT [facility], # 56 tablet, 0 Refills, Acute 05/22/21 8:57:00 EST, 04/24/21 8:57:00 EST, [facility]., KELLEYPAT CHECKED ; PT ON CONTRACT AT [facility]... Start Date: 04/24/21 Stop Date: 05/22/21 Status: Ordered prazosin 2 mg oral capsule [...] 10/30/20 11:37:00 EDT, Route to Pharmacy Electronically, [facility]/pharmacy #[id number], 163, cm, 08/15/20 14:23:00 EDT, Height, 84.8, kg, 06/25/20 20:28:00 EDT... Start Date: 10/30/20 Status: Ordered Spiriva Respimat 60 ACT 2.5 mcg/inh inhalation aerosol 2 puffs, Inhalation, Daily, # 1 each, 11 Refills, Maintenance, 04/05/20 14:17:00 EST, [facility]/pharmacy #[id number], Partial fill upon patient request [...] 04/24/21 8:58:00 EST, Route to Pharmacy Electronically, [facility]., 162.5, cm, 03/22/21 14:58:00 EST, Height, 90.9, kg, 02/02/21... 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
--- OUTSIDE RECORDS SUMMARY | 2023-03-25 08:20 | XMS_ITS | Continuity of Care Document ---
Author Name Unknown Organization [facility] ter Address [address] [place] [id number]- Care Team Providers Care Thread Reeler Name Role Phone Richardson QUIROZ, Leonora Pérez Primary Care Physician [phone] Encounter [facility] Date(s): 05/04/20 - 05/04/[address] [address]- Discharge Disposition: A-D/C Home Attending Physician: Binh Goodman MD Admitting Physician: Binh Goodman MD Referring Physician: Not on Staff, Referring [...] 14:12:00 EST, Powder, Route to Pharmacy Electronically, [id number], [facility]/pharmacy #[id number], 162.56, cm, 03/27/20 11:36:00... Start Date: 04/05/20 Status: Ordered albuterol 0.083% inhalation solution 3 mL = 2.5 mg, Inhalation, Every 4 hours, PRN for wheezing, # 100 each, 5 Refills, Maintenance, 06/27/19 14:32:00 EDT, Solution, [facility]/pharmacy #[id number], 160, cm, 06/01/19 14:08:00 EST, Height, 88.9, kg, 05/23/19 22:09:00 EST, Dry Weight Start Date: 06/27/19 Status: Ordered amitriptyline 50 mg oral tablet 1 tablet = 50 mg, By Mouth, Daily at bedtime, # 30 tablet, 5 Refills, Maintenance, 12/30/19 18:21:00 EDT, Tablet, [facility]/pharmacy #[id number], 163, cm, 12/26/19 13:58:00 EDT, Height, 80, kg, 10/29/19 0:29:00 EDT, Dry Weight Start Date: 12/30/19 Status: Ordered atorvastatin 20 mg oral tablet 1 tablet = 20 mg, By Mouth, Daily, # 90 tablet, 3 Refills, Maintenance, 04/05/20 14:11:00 EST, Tablet, [facility]/pharmacy #[id number], Partial fill upon patient request if the prescription is for a schedule II opioid drug., 162.56, cm, 03/27/20 11:36:00 EST, Heig... Start Date: 04/05/20 Status: Ordered capsaicin 0.025% topical cream 1 application, Topically, 3 times a day, # 45 Gm, 3 Refills, Maintenance, 11/01/19 15:25:00 EDT, Cream, [facility]/pharmacy #[id number], 1 application Topically 3 [...] 1 Refills, Maintenance, 02/03/20 13:47:00 EDT, Cream, [facility]/pharmacy #[id number], 1 application Topically 2 times a day, 163, cm, 12/26/19 13:58:00 EDT, Height, 80, kg, 10/29/19 0:29:00 EDT, Dry Weight Start Date: 02/03/20 Status: Ordered duloxetine 60 mg oral enteric coated capsule 2 capsule = 120 mg, By Mouth, Daily, # 60 capsule, 5 Refills, Maintenance, 03/02/20 11:18:00 EST, Capsule, [facility]/pharmacy #[id number], Partial fill upon patient request. NOT INCREASED DOSE, 163, cm, 12/25/2012:58:00 EDT, Height, 80, kg, 10/29/19 0:29:00 EDT,... Start Date: 03/02/20 Status: Ordered hydrochlorothiazide 12.5 mg oral tablet 1 tablet = 12.5 mg, By Mouth, Daily, # 90 tablet, 3 Refills, Maintenance, 01/19/20 10:28:00 EDT, Tablet, [facility]/pharmacy #[id number], 163, cm, 12/26/19 13:58:00 EDT, Height, 80, kg, 10/29/19 0:29:00 EDT, Dry Weight Start Date: 01/19/20 Status: Ordered Januvia 100 mg oral tablet 1 tablet = 100 mg, By Mouth, Daily, # 30 tablet, 5 Refills, Maintenance, 12/30/19 18:21:00 EDT, Tablet, [facility]/pharmacy #[id number], 163, cm, 12/26/19 13:58:00 EDT, [...] patch, 5 Refills, Maintenance, 03/09/20 8:53:00 EST, [facility]/pharmacy #[id number], 1 patch Topically Daily,Instr:For [...] not to exceed 3000 mg/day. instructions in yemeni, # 120 tablet, 2 Refills, Maintenance, 11/01/19 15:24:00 EDT, Tablet, [facility]/pharmacy #[id number], 163, cm, 11/01/19 14:40:00 [...] 2 Refills, Maintenance, 04/05/20 14:08:00 EST, Tablet, [facility]/pharmacy #[id number], Partial fill upon patient request if the prescription is for a schedule II opioid drug., 162.56, cm, ... Start Date: 04/05/20 Status: Ordered omeprazole 20 mg oral enteric coated capsule 1 capsule = 20 mg, By Mouth, Daily, Use as little as possible to control symptoms., # 30 capsule, 2Refills, Maintenance, 10/06/19 7:45:00 EDT, EC Capsule, [facility]/pharmacy #[id number], cancel Ranitidine, 160,cm, 09/28/19 [...] days, # 56 tablet, 0 Refills, Acute 05/31/20 17:54:00 EST, 05/03/20 17:54:00 EST, [facility]/pharmacy #[id number], Partial fill upon patient request if the prescription is for a schedule II opioid drug. Client on c... Start Date: 05/03/20 Stop Date: 05/31/20 Status: Ordered Senna 8.6 mg oral tablet 8.6 mg, 1, tablet, By Mouth, Daily at bedtime, # 100 tablet, Refills 2, Tot. Refills 2, Maintenance, 06/10/19 16:12:00 EST, Route to Pharmacy Electronically, [facility]/pharmacy #[id number], 160, cm, 06/01/19 14:08:00 EST, Height, 88.9, kg, 05/23/19 22:09:00 EST,... Start Date: 06/10/19 Status: Ordered Soma 350 mg oral tablet 350 mg, 1, tablet, By Mouth, 3 times a day, # 9 tablet, Refills 0, Tot. Refills 0, Maintenance, 05/04/20 15:46:00 EST, Route to Pharmacy Electronically, [facility]/pharmacy #[id number], Partial fill upon patient request if the prescription is for a schedule II opi... Start Date: 05/04/20 Status: Ordered Spiriva Respimat 60 ACT 2.5 mcg/inh inhalation aerosol 2 puffs, Inhalation, Daily, # 1 each, 11 Refills, Maintenance, 04/05/20 14:17:00 EST, [facility]/pharmacy #[id number], Partial fill upon patient request if the prescription is for a schedule II opioid drug., 162.56, cm, 03/27/20 11:36:00 EST, Height, 81.81, kg, 12... Start Date: 04/05/20 Status: Ordered tiZANidine 4 mg oral tablet 4 mg, 1, tablet, By Mouth, Every 8 hours, PRN, # 84 tablet, Refills 1, Tot. Refills 1, Maintenance,Spasm, 05/03/20 11:26:00 EST, Route to Pharmacy Electronically, [facility]/pharmacy #[id number], 162, cm, 04/21/20 11:33:00 EST, Height, 80, kg, 04/18/20 9:48:00 ES... Start Date: 05/03/20 Stop Date: 06/28/20 Status: Ordered Vitamin D3 5000 intl units [...] [address] Abd 09/18/16 at [facility], pending MRI 3urge and stress Results Radiology Reports * Exam Date Time Procedure Performing Provider Status 05/04/20 12:19 PM Chest Portable Ekencynger , Mellisa L; Auth (Verified) Notes: (Chest Portable) Reason For Exam: Chest Pain;Other: RESULT: Chest Portable Chest Portable HX OF PRESENT ILLNESS: Patient reports high blood pressure, high blood sugars, headache, chest pressure, SOB and N V. x 2-3 days.; Reason: Chest Pain COMPARISON: 04/18/2020 FINDINGS: LINES AND TUBES: None. LUNGS AND PLEURA: Low lung volumes with a few small areas of linear scarring or atelectasis. No evidence of consolidation or pulmonary edema. No pleural effusion. No pneumothorax. HEART, MEDIASTINUM AND [place]: Heart is normal in size. Normal mediastinal and hilar contour. BONES AND SOFT TISSUES: No acute abnormality. IMPRESSION: No evidence of acute abnormality. WSN: [id number] Ordering Physician: Dia Calderon Dictated By: Cuba Willis MD Dictated Date/Time: 05/04/20 12:34 p Reviewed By: Cuba Willis MD Signed By: Cuba Willis MD Signed Date/Time: 05/04/20 12:34 pm Transcribed By: WILVER Transcribed Date/Time: 05/04/20 12:33 pm Vital Signs Most recent to oldest [Reference Range]: 1 2 3 Oxygen Saturation [94-100 %] 96 % (05/04/20 4:13 PM) 98 % (05/04/20 11:20 AM) Pulse Rate [55-90 bpm] 78 bpm (05/04/20 4:13 PM) 80 bpm (05/04/20 11:20 AM) Blood Pressure [90-138/55-84 mm Hg] 151/96mm Hg *H* (05/04/20 4:13 PM) 155/101mm Hg *H* (05/04/20 11:21 AM) 160/105mm Hg *H* (05/04/20 11:20 AM) Respiratory Rate [16-30 br/min] 18 br/min (05/04/20 4:13 PM) 20 br/min (05/04/20 11:20 AM) Temperature [96.8-100.4 DegF] 98.4 DegF (05/04/20 4:13 PM) 97.9 DegF (05/04/20 11:20 AM) Mode of Delivery (Oxygen) Room air (05/04/20 4:13 PM) Room air (05/04/20 11:20 AM) Blood pressure sites Arm, right (05/04/20 4:13 PM) Arm, left (05/04/20 11:21 AM) Arm, left (05/04/20 11:20 AM) Temperature Route Oral (05/04/20 4:13 PM) Oral (05/04/20 11:20 AM) Social History Social History Type Response Tobacco Use: Pt states she q uit smoking 1 week ago. Sex
--- OUTSIDE RECORDS SUMMARY | 2023-03-25 08:20 | XMS_ITS | Continuity of Care Document ---
Author Name Unknown Organization [facility] ter Address [address] [place] [address]- Care Team Providers Care Wood Heel Flap Trimmer Name Role Phone Richardson QUIROZ, Leonora Pérez Primary Care Physician Encounter [facility] Date(s): 03/27/21 - 05/09/[address] [address] Attending Physician: Santana Hernandez MD Allergies, Adverse Reactions, Alerts Substance Reaction [...] 01/16/21 19:30:00 EDT, Route to Pharmacy Electronically, [facility]/pharmacy #[id number], Partial fill upon patient request if the prescription is for a schedule II o... Start Date: 01/16/21 Status: Ordered Advair Diskus 500 mcg-50 mcg inhalation powder 1, puffs, Inhalation, 2 times a day, [id number], # 1 each, Refills 11, Tot. Refills 11, Maintenance, 04/05/20 14:12:00 EST, Powder, Route to Pharmacy Electronically, [id number], [facility]/pharmacy #[id number], 162.56, cm, 03/27/20 11:36:00... Start Date: 04/05/20 Status: Ordered albuterol 0.083% inhalation solution 3 mL = 2.5 mg, Inhalation, Every 4 hours, PRN for wheezing, # 100 each, 2 Refills, Maintenance, 08/15/20 10:22:00 EDT, Solution, [facility]/pharmacy #[id number], 163, cm, 08/09/20 8:45:00 EDT, Height, 84.8, kg, 06/25/20 20:28:00 EDT, Dry Weight Start Date: 08/15/20 Status: Ordered amitriptyline 75 mg oral tablet 1 tablet = 75 mg, By Mouth, Daily at bedtime, # 90 tablet, 1 Refills, Maintenance, 05/07/21 10:21:00 EST, Tablet, [facility], Partial fill upon patient request if the prescription is for a schedule II opioid drug., 162.5, cm, 03/22/21... Start Date: 05/07/21 Status: Ordered atorvastatin 20 mg oral tablet 3 tablet = 60 mg, By Mouth, Daily, # 90 tablet, 3 Refills, Maintenance, 04/05/20 14:11:00 EST, Tablet, [facility]/pharmacy #[id number], Partial fill upon patient request if the prescription is for a schedule II opioid drug., 162.56, cm, 03/27/20 11:36:00 EST, Heig... Start Date: 04/05/20 Status: Ordered capsaicin 0.025% topical cream 1 application, Topically, 3 times a day, # 45 Gm, 3 Refills, Maintenance, 11/01/19 15:25:00 EDT, Cream, [facility]/pharmacy #[id number], 1 application Topically 3 times a day, 163, cm, 11/01/19 14:40:00 EDT, Height, 80, kg, 10/29/19 0:29:00 EDT, Dry Weight Start Date: 11/01/19 Status: Ordered cetirizine 10 mg oral tablet 1 tablet = 10 mg, By Mouth, Daily, # 30 tablet, 5 Refills, Maintenance, 06/20/20 13:18:00 EDT, Tablet, [facility]/pharmacy #[id number], 162, cm, 05/24/20 9:01:00 EST, Height, 80, kg, 04/18/20 9:48:00 EST, Dry Weight Start Date: 06/20/20 Status: Ordered cholecalciferol 5000 intl units oral capsule 1 capsule = 125 mcg, By Mouth, Daily, with food, # 100 capsule, 2 Refills, Maintenance, 02/11/21 11:17:00 EST, Capsule, [facility]/pharmacy #[id number], Partial fill upon patient [...] 1 Refills, Maintenance, 12/05/20 12:42:00 EDT, Cream, [facility]/pharmacy #[id number], 1 application Topically 2 [...] 16 mL, 1 Refills, Maintenance, [id number], 30, USE 1 SPRAY IN BOTH NOSTRILS [...] 2 Refills, Maintenance, 03/01/21 12:42:00 EST, Tablet, [facility]/pharmacy #[id number], 155, cm, 02/18/21 14:54:00 EST, Height, 90.9, kg, 02/02/21 5:59:00 EDT, DryWeight Start Date: 03/01/21 Status: Ordered Lantus 100 u/ml subcutaneous solution = 40 units, Subcutaneous Injection, Daily, # 12 mL, 2 Refills, Maintenance, 03/01/21 12:42:00 EST, Solution, [facility]/pharmacy #[id number], increased dose 12/26/19, 155, cm, 02/18/21 14:54:00 EST, Height, 90.9, kg, 02/02/21 5:59:00 EDT, Dry Weight Start Date: 03/01/21 Status: Ordered lidocaine 5% topical film 1 patch, Topically, Daily, For chronic radicular back pain, # 30 patch, 5 Refills, Maintenance, 10/11/20 8:15:00 EDT, [facility]/pharmacy #[id number], 1 patch Topically Daily,Instr:For chronic radicular back pain, 163, cm, 08/15/20 14:23:00 EDT, Height, 84.8, kg,... Start Date: 10/11/20 Status: Ordered lisinopril 20 mg oral tablet 20 mg, 1, tablet, By Mouth, Daily, # 90 tablet, Refills 3, Tot. Refills 3, Maintenance, 04/12/21 13:24:00 EST, Route to Pharmacy Electronically, [facility]/pharmacy #[id number], 162.5, cm, 03/22/21 14:58:00 [...] 0 Refills, Maintenance, 08/15/20 15:59:00 EDT, Capsule, [facility]/pharmacy #[id number], Partial fill upon patient request if the prescription is for a schedule II opioid drug., 163, cm, 08/15/20 14:23:00 EDT, Aj Start Date: 08/15/20 Status: Ordered mirabegron 25 mg oral tablet, extended release 1 tablet = 25 mg, By Mouth, Daily, do not crush or chew, # 30 tablet, 11 Refills, Maintenance, 12/31/20 15:58:00 EDT, ER Tablet, [facility]/pharmacy #[id number], Partial fill upon patient [...] 1 Refills, Maintenance, 01/31/21 14:16:00 EDT, Tablet, [facility], Partial fill upon patient request if the prescription is for a schedule II opioid drCain Start Date: 01/31/21 Status: Ordered omeprazole 40 mg oral enteric coated capsule 1 capsule = 40 mg, By Mouth, Daily, PRN Dyspepsia, # 90 capsule, 0 Refills, Maintenance, 05/09/21 10:45:00 EST, EC Capsule, [facility]., 162.5, cm, 03/22/21 14:58:00 EST, Height, 90.9,kg, 02/02/21 5:59:00 EDT, Dry Weight Start Date: 05/09/21 Status: Ordered oxyCODONE 15 mg oral tablet 1 tablet = 15 mg, By Mouth, 2 times a day, for 28 days, MASSPAT CHECKED PT ON CONTRACT AT [facility], # 56 tablet, 0 Refills, Acute 05/22/21 8:57:00 EST, 04/24/21 8:57:00 EST, [facility]., MASSPAT CHECKED ; PT ON CONTRACT AT [facility]... Start Date: 04/24/21 Stop Date: 05/22/21 Status: [...] 11:37:00 EDT, [id number] 163, cm, 08/15/20 14:23:00 EDT, Height, 84.8, kg, 06/25/20 20:28:00 EDT... Start Date: 10/30/20 Status: Ordered Spiriva Respimat 60 ACT 2.5 mcg/inh inhalation aerosol 2 puffs, Inhalation, Daily, # 1 each, 11 Refills, Maintenance, 04/05/20 14:17:00 EST, [facility]/pharmacy #[id number], Partial fill upon patient [...] 04/24/21 8:58:00 EST, Route to Pharmacy Electronically, [facility]., 162.5, cm, 03/22/21 14:58:00 EST, Height, 90.9, kg, 02/02/21... Start Date: 04/24/21 Stop Date: 06/19/21 Status: Ordered Trulicity Pen 1.5 mg/0.5 mL subcutaneous solution 0.5 mL = 1.5 mg, Subcutaneous Injection, Every week, # 2.5 mL, 11 Refills, Maintenance, 04/30/21 12:00:00 EST, [facility] upon patient request [...] on CPAP(Confirmed) Active Panic attacks(Confirmed) Active BHN/BHCP Almond Huller Jb Fabian [phone](Confirmed) Active Syncope and collapse(Confirmed) Active Tobacco dependence(Confirmed) Active DM2 (diabetes mellitus, type 2)(Confirmed) 04/03/17 Active Incontinence of urine(Confirmed) 3 Active 1seen on MRI 10/2016, rec repeat imaging in October [address] Abd 09/18/16 at [facility], pending MRI 3urge and stress Social History Social History Type Response Smoking Status Current every day sm oker; Type: Cigarettes; Tobacco use times per day: 1/2 ppd; entered on: 12/24/17 Sex
--- OUTSIDE RECORDS SUMMARY | 2023-03-25 08:20 | XMS_ITS | Continuity of Care Document ---
Author Name Unknown Organization [facility] Address [address] [place] [address]- Care Team Providers Care Receiving Checker Name Role Phone Richardson QUIROZ, Leonora Pérez Primary Care Physician [phone] Encounter [facility] Date(s): 07/19/19 - 07/26/19 [facility] [address] [place] [address]- [facility] Attending Physician: Richardson QUIROZ, Leonora Pérez Allergies, Adverse [...] 12:48:00 EST, Powder, Route to Pharmacy Electronically, [id number], [id number], 158, cm, 04/26/19 9:58:00 EST, [...] 08/01/19 15:23:00 EDT, 07/22/19 15:23:00 EDT, Tablet, [facility]/pharmacy #[id number], 1 tablet By Mouth 2 times a day,x10 days, 160, cm, 07/22/19 15:08:00 EDT, Height, 86.8, kg, ... Start Date: 07/22/19 Stop Date: 08/01/19 Status: Ordered cetirizine 10 mg oral tablet 1 tablet = 10 mg, By Mouth, Daily, # 30 tablet, 5 Refills, Maintenance, 04/19/19 15:40:00 EST, Tablet, [facility]/pharmacy #[id number], 158, cm, 04/04/19 15:21:00 EST, Height, 82, kg, 04/01/19 16:10:00 EST, Dry Weight Start Date: 04/19/19 Status: Ordered clonazePAM 0.5 mg oral tablet TAKE 1 TABLET BY MOUTH TWICE A DAY NEEDED Start Date: 06/02/19 Status: Ordered clotrimazole 1% topical cream 1 application, Topically, 2 times a day, # 30 Gm, 0 Refills, Maintenance, 05/30/19 19:02:00 EST, Cream, [facility]/pharmacy #[id number], 1 application Topically 2 [...] 5 Refills, Maintenance, 04/28/19 16:05:00 EST, Tablet, [facility]/pharmacy #[id number], 158, cm, 04/28/19 14:51:00 EST, Height, 82, kg, 04/01/19 16:10:00 EST, Dry Weight Start Date: 04/28/19 Status: Ordered lidocaine 5% topical film 1 patch, Topically, Daily, For chronic radicular back pain, # 30 patch, 5 Refills, Maintenance, 06/27/19 14:37:00 EDT, [facility]/pharmacy #[id number], 1 patch Topically Daily,Instr:For chronic radicular back pain, 160, cm, 06/01/19 14:08:00 EST, Height, 88.9, kg,... Start Date: 06/27/19 Status: Ordered lisinopril 10 mg oral tablet 10 mg, 1, tablet, By Mouth, Daily, # 90 tablet, Refills 3, Tot. Refills 3, Maintenance, 05/08/19 20:27:00 EST, Route to Pharmacy Electronically, [facility]/pharmacy #[id number], to replace 2.5mg dose, 158, [...] not to exceed 3000 mg/day. instructions in comoran, # 120 tablet, 2 Refills, Maintenance, 07/25/19 8:41:00 EDT, Tablet, [facility]/pharmacy #[id number], 160, cm, 07/22/19 15:08:00 [...] on contract at [facility] [address] # 56 tablet, 0 Refills, Acute 08/04/19 13:49:00 EDT, 07/07/19 13:49:00 EDT, [id number], Partial fill upon patient request, 160, cm, 06/01/19 14:08:00 EST,... Start Date: 07/07/19 Stop Date: 08/04/19 Status: Ordered prazosin 1 mg oral capsule 1 mg, 1, capsule, By Mouth, Daily at bedtime, for nightmares, # 30 capsule, Refills 0, Tot. Refills0, Maintenance, 05/30/19 18:52:00 EST, Route to Pharmacy Electronically, [facility]/pharmacy #[id number], 160, cm, 05/30/19 18:08:00 EST, Height, 88.9, kg, 05/23/19... Start Date: 05/30/19 Status: Ordered raNITIdine 300 mg oral tablet See Instructions, # 30 tablet, Refills 2 Tot. Refills 2, TAKE 1 TABLET BY MOUTH EVERYDAY AT BEDTIME, [facility]/pharmacy #[id number] Start Date: 01/27/19 Status: Ordered Senexon-S 2 tablet, By Mouth, Daily at bedtime, 0 Refills, Maintenance, 11/25/18 10:10:49 EDT Start Date: 11/25/18 Status: Ordered senna 187 mg oral tablet 1 tablet = 8.6 mg, By Mouth, Daily at bedtime, PRN as needed for constipation, # 100 tablet, 5 Refills, Maintenance, 05/04/19 9:35:00 EST, [facility]/pharmacy #[id number], 158, cm, 04/28/19 14:51:00 EST, Height, 82, kg, 04/01/19 16:10:00 EST, Dry Weight Start Date: 05/04/19 Status: Ordered Senna 8.6 mg oral tablet 8.6 mg, 1, tablet, By Mouth, Daily at bedtime, # 100 tablet, Refills 2, Tot. Refills 2, Maintenance, 06/10/19 16:12:00 EST, Route to Pharmacy Electronically, [facility]/pharmacy #[id number], 160, cm, 06/01/19 14:08:00 EST, Height, 88.9, kg, 05/23/19 22:09:00 EST,... Start Date: 06/10/19 Status: Ordered Spiriva Respimat 60 ACT 2.5 mcg/inh inhalation aerosol 2 puffs, Inhalation, Daily, # 1 each, 5 Refills, Maintenance, 04/26/19 10:30:00 EST, [facility]/pharmacy #[id number], 158, cm, 04/26/19 9:58:00 EST, Height, 82, kg, 04/01/19 16:10:00 EST, Dry Weight Start Date: 04/26/19 Status: Ordered tiZANidine 2 mg oral tablet 2 mg, 1, tablet, By Mouth, 2 times a day, PRN, # 30 tablet, Refills 2, Tot. Refills 2, Maintenance,as needed for muscle spasm, 07/25/19 8:41:00 EDT, Route to Pharmacy Electronically, [facility]/pharmacy #[id number], 160, cm, 07/22/19 15:08:00 [...] on CPAP(Confirmed) Active Panic attacks(Confirmed) Active *BHN/BHCP/Efrem Macdonald-[phone]/Health intermediate, active care coordination(Confirmed) Active Acute meniscal tear of right knee(Confirmed) 6 06/2015 Active Tobacco dependence(Confirmed) Active DM2 (diabetes mellitus, type 2)(Confirmed) 04/03/17 Active Incontinence of urine(Confirmed) 7 Active 1surgically repaired November 2015, Dr. Sg MENDEZ 2DJD Lumbar Spine per MRI 3L3-L4 disc herniation per client report 4seen on MRI 10/2016, rec repeat imaging in October [address] Abd 09/18/16 at [facility], pending MRI 6surgically repaired July 2015 Dr. Sg MENDEZ 7urge and stress Social History Social History Type Response Tobacco Use: Pt states she q uit smoking 1 week ago. Sex Female
--- OUTSIDE RECORDS SUMMARY | 2023-03-25 08:20 | XMS_ITS | Continuity of Care Document ---
Author Name Unknown Organization [facility] Address [address] [place] [address]- Care Team Providers Care University Partnership Rep Name Role Phone Richardson DIRECTOR OF MEDIA, Leonora Pérez Primary Care Physician [phone] [place]counter [facility] Date(s): 09/29/22 - 10/29/22 [facility] [address] [place] [address]- Allergies, Adverse Reactions, Alerts Substance Reaction Severity Status morphine Active gabapentin swelling Active Lyrica dysphagia Active SEROquel body swelling - all over Act tony MetFORMIN Hydrochloride ER black tarry stool Active Immunizations Given and Recorded Vaccine Date Status Refusal Reason [id number] 12y+ bivalent booster vax 01/30/22 Given influenza virus vaccine, inactivated 01/30/22 Give n influenza virus vaccine, inactivated 02/04/21 Give n influenza virus vaccine, inactivated 1 04/19/20 Gi tonio influenza virus vaccine, inactivated 03/12/19 Give n influenza virus vaccine, inactivated 01/19/18 Give n influenza virus vaccine, inactivated 02/16/17 Give n pneumococcal 20-valent conjugate vaccine 12/26/21 Given SARS-CoV-2 mRNA ([id number]) vax 05/14/21 Given SARS-CoV-2 (COVID-19) mRNA BNT-[id number] [...] 09/25/22 17:00:00 EDT, Route to Pharmacy Electronically, [facility], Partial fill upon patient request if the prescription is for a sched... Start Date: 09/25/22 Status: Ordered Advair Diskus 500 mcg-50 mcg inhalation powder 1, inhalation, Inhalation, 2 times a day, rinse mouth and throat after use, # 60 each, Refills 11, Tot. Refills 11, Maintenance, 09/25/22 17:00:00 EDT, Inhaler, Route to Pharmacy Electronically, [id number], [facility]... Start Date: 09/25/22 Status: Ordered albuterol 0.083% inhalation solution 3 mL = 2.5 mg, 0 Refills, Maintenance, 02/06/22 16:39:00 EDT, Partial fill upon patient request if the prescription is for a schedule II opioid drug. Start Date: 02/06/22 Status: Ordered All Day Allergy 10 mg oral tablet 1 tablet, By Mouth, Daily, # 90 tablet, 1 Refills, Maintenance, 07/25/22 12:30:00 EDT, [facility], 163, cm, 07/11/22 14:19:00 EDT, Height, 83, kg, 02/11/22 19:19:00 EST, Dry Weight Start Date: 07/25/22 Status: Ordered amLODIPine 5 mg oral tablet 5 mg, 1, tablet, By Mouth, Daily, # 90 tablet, Refills 3, Tot. Refills 3, Maintenance, 04/29/22 11:56:00 EST, Route to Pharmacy Electronically, [facility], Partial fill upon patient request if the prescription is for a schedule II opio... Start Date: 04/29/22 Status: Ordered atorvastatin 40 mg oral tablet 1 tablet = 40 mg, By Mouth, Daily, # 90 tablet, 3 Refills, Maintenance, 09/25/22 16:58:00 EDT, Tablet, [facility] Partial fill [...] 0 Refills, Maintenance, 07/25/22 17:58:00 EDT, [facility]., Partial fill upon patient request [...] 1 Refills, Maintenance, 09/03/22 14:02:00 EDT, [facility], 15, APPLY TOPICALLY TO AFFECTED AREA TWO TIMES A DAY,163, cm, 08/14/22 16:50:00 EDT, Height, 83, kg, 11/... Start Date: 09/03/22 Status: Ordered docusate-senna 50 mg-187 mg oral tablet 2 tablet, By Mouth, 2 times a day, PRN Constipation, # 100 tablet, 11 Refills, Maintenance, 08/14/22 16:57:00 EDT, Tablet, [facility]., Partial fill upon patient request if the prescription is for a schedule II opioid drug., 2 tablet By... Start Date: 08/14/22 Status: Ordered duloxetine 60 mg oral enteric coated capsule 2 capsule = 120 mg, By Mouth, Daily, # 60 capsule, 5 Refills, Maintenance, 05/26/22 17:03:00 EST, Capsule, [facility] Partial fill upon patient request. NOT INCREASED DOSE. Please cancel all other Duloxetine scripts, 163, cm, 05/19/22... Start Date: 05/26/22 Status: Ordered empagliflozin 10 mg oral tablet 1 tablet = 10 mg, By Mouth, Daily in AM, # 90 tablet, 3 Refills, Maintenance, 09/25/22 17:01:00 EDT, Tablet, [facility]., Partial fill upon patient request [...] 15:19:00 EDT, Route to Pharmacy Electronically, [facility] 163, cm, 09/25/22 16:20:00 EDT, Height, 83, kg, 11/0... Start Date: 10/22/22 Status: Ordered lidocaine 5% topical film 1 patch, Topically, Daily, PRN Pain , Mild, remove after 12 hours, # 13 each, 5 Refills, Maintenance, 09/25/22 16:59:00 EDT, Film, [facility]., Partial fill upon patient request if theprescription is for a schedule II opioid drug., 1 p... Start Date: 09/25/22 Status: Ordered lisinopril 20 mg oral tablet 20 mg, 1, tablet, By Mouth, Daily, # 90 tablet, Refills 1, Tot. Refills 1, Maintenance, 07/25/22 12:31:00 EDT, Route to Pharmacy Electronically, [facility], 163, cm, 07/11/22 14:19:00EDT, Height, 83, kg, 02/11/22 19:19:00 EST, Dry Weight Start Date: 07/25/22 Status: Ordered mirtazapine 30 mg oral tablet 1 tablet = 30 mg, By Mouth, Daily at bedtime, # 90 tablet, 1 Refills, Maintenance, 09/25/22 17:00:00 EDT, Tablet, [facility], Partial fill upon patient request if the prescription is for a schedule II opioid drug., 163, cm, 09/25/22 16... Start Date: 09/25/22 Status: Ordered omeprazole 40 mg oral enteric coated capsule 1 capsule, By Mouth, Daily, PRN NEEDED, # 30 capsule, 2 Refills, 08/26/22 13:27:00 EDT, [facility], 163, cm, 08/14/22 16:50:00 EDT, Height, 83, kg, 02/11/22 19:19:00 EST, Dry Weight Start Date: 08/26/22 Status: Ordered oxyCODONE 15 mg oral tablet 1 tablet = 15 mg, By Mouth, 3 times a day, on contract at [facility], # 84 tablet, 0 Refills, Maintenance, 10/24/22 11:04:00 EDT, [facility], Partial fill upon patient request if [...] 90 capsule, 1 Refills, Maintenance,09/25/22 16:54:00 EDT, [facility], 163, cm, 09/25/22 16:20:00 EDT, Height, 83, kg, 02/11/22 19:19:00 EST, Dry Weight Start Date: 09/25/22 Status: Ordered traZODone 50 mg oral tablet 1/2 TO 1 TABLET, By Mouth, Daily at bedtime, # 30 tablet, Refills 5, Maintenance, 08/29/22 11:31:00EDT, Route to Pharmacy Electronically, [facility], 163, cm, 08/14/22 16:50:00 EDT, Height, 83, kg, 02/11/22 19:19:00 EST, Dry Weight Start Date: 08/29/22 Status: Ordered triamcinolone 55 mcg/inh nasal spray 1 sprays = 55 mcg, Nares, Both, Daily, # 1 each, 5 Refills, Maintenance, 08/14/22 16:59:00 EDT, [facility], Partial fill upon patient request if the prescription is for a schedule II opioid drug., 1 sprays Nares, Both Daily, 163, cm, 0... Start Date: 08/14/22 Status: Ordered Trulicity Pen 1.5 mg/0.5 mL subcutaneous solution = 1.5 mg, Subcutaneous Infusion, Every week, # 4 each, 5 Refills, Maintenance, 07/25/22 18:12:00 EDT, [facility], Partial fill upon patient request if [...] Confirmed Active Panic attacks Confirmed Active N/CP Mathematics Faculty Member Charlene Fabian [phone] Confirmed Active Syncope and collapse Confirmed Active Tobacco dependence Confirmed Active DM2 (diabetes mellitus, type 2) Confirmed 04/03/17 Active Incontinence of urine 3 Confirmed Active 1seen on MRI 10/2016, rec repeat imaging in October [address] Abd 09/18/16 at [facility], pending [place] 3urge and stress Social History Social History Type Response Smoking Status Current every day sm oker; Type: Cigarettes; Tobacco use times per day: 1/2 ppd; entered on: 12/24/17 Sex Patient Care team information Care Team Personnel Name: Sindy Bernal RN Position: [facility] RN Member Role: Primary Care Nurse Name: Graciela Thrasher RN Position: [facility] RN Member Role: Primary Care Nurse Name: Stevie Angel RN Position: [facility] RN Member Role: Primary Care Nurse Name: Leonora Bai NP Position: [facility] PCO Associate Professional Member Role: PCP Address: Address: [address] [place] [id number] Name: Keily Ortega RN Position: [facility] RN Member Role: Primary Care Nurse Name: Nichole Pichardo RN Position: [facility] RN Member Role: Primary Care Nurse Name: Melvin Whitfield RN Position: [facility] AMB Nurse Member Role: Primary Care Nurse Name: Phuong Berkowitz RN Position: [facility] RN Member Role: Primary Care Nurse Name: Joselyn Rain RN Position: [facility] Hospital Ammonium Hydroxide Operator Member Role: Primary Care Nurse Care Team Related Persons Name: NICK IRA Address: home [address] [place] [address] Name: JHON LARSON Address: home [address] [place] [address] Name: JHON LARSON Address: home [address] [place] [address] Name: GALO CATALAN Name: NANCY CATALAN Address: home [address] [place] [address]
--- OUTSIDE RECORDS SUMMARY | 2023-03-25 08:20 | XMS_ITS | Continuity of Care Document ---
Author Name Unknown Organization [facility] Address [address] [place] [address]- Care Team Providers Care Cobol Mainframe Developer Name Role Phone Richardson QUIROZ, Leonora Pérez Primary Care Physician [phone] Encounter [facility] Date(s): 06/24/21 - 07/24/21 [facility] [address] [place], [place] [address] Allergies, Adverse Reactions, Alerts Substance Reaction Severity Status morphine Active gabapentin swelling Active MetFORMIN Hydrochloride ER black tarry stool Active Lyrica dysphagia Active SEROquel body swelling - all over Act tony Immunizations Given and Recorded Vaccine Date Status Refusal Reason SARS-CoV-2 mRNA ([id number]) vax 05/14/21 Given influenza virus vaccine, inactivated [...] 07/18/21 15:15:00 EDT, Route to Pharmacy Electronically, [facility]., Partial fill upon patient request if the prescription is for a sched... Start Date: 07/18/21 Status: Ordered Advair Diskus 500 mcg-50 mcg inhalation powder 1, puffs, Inhalation, 2 times a day, [id number], # 1 each, Refills 5, Tot. Refills 5, Maintenance, 05/15/21 9:20:00 EST, Powder, Route to Pharmacy Electronically, [id number], [facility]., 162.5, cm, 05/10/21 14:47... Start Date: 05/15/21 Status: Ordered albuterol 0.083% inhalation solution 3 mL = 2.5 mg, Inhalation, Every 4 hours, PRN for wheezing, # 100 each, 2 Refills, Maintenance, 05/15/21 9:30:00 EST, Solution, [facility]., 162.5, cm, 05/10/21 14:47:00 EST, Height, 90.9, kg, 02/02/21 5:59:00 EDT, Dry Weight Start Date: 05/15/21 Status: Ordered amitriptyline 75 mg oral tablet 1 tablet = 75 mg, By Mouth, Daily at bedtime, # 90 tablet, 1 Refills, Maintenance, 05/07/21 10:21:00 EST, Tablet, [facility]., Partial fill upon patient request if the prescription is for a schedule II opioid drug., 162.5, cm, 03/22/21... Start Date: 05/07/21 Status: Ordered atorvastatin 40 mg oral tablet 1 tablet = 40 mg, By Mouth, Daily, # 90 tablet, 3 Refills, Maintenance, 07/08/21 9:47:00 EDT, Tablet, [facility]., Partial fill upon patient request if the prescription is for a schedule II opioid drug., 162.5, cm, 07/08/21 8:49:00 EDT,... Start Date: 07/08/21 Status: Ordered cetirizine 10 mg oral tablet 1 tablet = 10 mg, By Mouth, Daily, # 30 tablet, 5 Refills, Maintenance, 07/08/21 9:44:00 EDT, Tablet, [facility]., 162.5, cm, 07/08/21 8:49:00 EDT, Height, 85.8, kg, 06/04/21 10:03:00 EST, Dry Weight Start Date: 07/08/21 Status: Ordered cholecalciferol 5000 intl units oral capsule 1 capsule = 125 mcg, By Mouth, Daily, with food, # 100 capsule, 2 Refills, Maintenance, 02/11/21 11:17:00 EST, Capsule, [facility]/pharmacy #[id number], Partial fill upon patient request [...] 1 Refills, Maintenance, 07/08/21 9:45:00 EDT, Cream, [facility]., PLEASE CANCEL ESTRADIOL VAGINAL CREAM, 1 application [...] 5 Refills, Maintenance, 02/18/21 15:09:00 EST, Capsule, [facility]/pharmacy #[id number], Partial fill upon patient request. NOT INCREASED DOSE, 155, cm, 02/18/2114:54:00 EST, Height, 90.9, kg, 02/02/21 5:59:00 ED... Start Date: 02/18/21 Status: Ordered empagliflozin 10 mg oral tablet 1 tablet = 10 mg, By Mouth, Daily in AM, # 30 tablet, 5 Refills, Maintenance, 07/08/21 9:43:00 EDT,Tablet, [facility], Partial fill upon patient request if the prescription is for a schedule II opioid drug., 162.5, cm, 07/08/21 8:49:0... Start Date: 07/08/21 Status: Ordered fluticasone 50 mcg/inh nasal spray See Instructions, USE 1 SPRAY IN BOTH NOSTRILS 2 TIMES A DAY, # 16 mL, 1 Refills, 07/08/21 9:44:00 EDT, [facility]., 30, USE 1 SPRAY IN BOTH NOSTRILS 2 TIMES A DAY, 162.5, cm, :49:00 EDT, Height, 85.8, kg, 06/04/21 10:03:00 ES... Start Date: 07/08/21 Status: Ordered hydrochlorothiazide 12.5 mg oral tablet 1 tablet = 12.5 mg, By Mouth, Daily, TAKE 1 TABLET BY MOUTH EVERY DAY, # 30 capsule, 2 Refills, Maintenance, 05/15/21 9:20:00 EST, [facility]., 162.5, cm, 05/10/21 14:47:00 EST, Height, 90.9, [...] 3 Refills, Maintenance, 06/18/21 21:04:00 EDT, Tablet, [facility]., 162.5, cm, 06/17/21 13:04:00 EDT, Height, 85.8, kg, 06/04/21 10:03:00 EST, Dry Weight Start Date: 06/18/21 Status: Ordered Lantus 100 u/ml subcutaneous solution = 50 units, Subcutaneous Injection, Daily, # 15 mL, 5 Refills, Maintenance, 07/08/21 9:38:00 EDT, Solution, [facility]., ;, 162.5, cm, 07/08/21 8:49:00 EDT, Height, 85.8, kg, 06/04/21 10:03:00 EST, Dry Weight Start Date: 07/08/21 Status: Ordered lisinopril 20 mg oral tablet 20 mg, 1, tablet, By Mouth, Daily, # 90 tablet, Refills 3, Tot. Refills 3, Maintenance, 04/12/21 13:24:00 EST, Route to Pharmacy Electronically, [facility]/pharmacy #[id number], 162.5, cm, 03/22/21 14:58:00 EST, Height, 90.9, kg, 02/02/21 5:59:00 EDT, Dry Weight Start Date: 04/12/21 Status: Ordered meloxicam 7.5 mg oral tablet 1 tablet = 7.5 mg, By Mouth, Daily, # 30 tablet, 1 Refills, Maintenance, 06/24/21 16:30:00 EDT, Tablet, [facility] Partial fill upon patient request [...] Refills, Maintenance, 05/09/21 10:45:00 EST, EC Capsule, [facility]., 162.5, cm, 03/22/21 14:58:00 EST, Height, 90.9,kg, 02/02/21 5:59:00 EDT, Dry Weight Start Date: 05/09/21 Status: Ordered oxyCODONE 5 mg oral tablet 15 mg, 3, tablet, By Mouth, 3 times a day, # 10 tablet, Refills 0, Tot. Refills 0, Acute 07/31/21 15:31:00 EDT, 07/24/21 15:30:00 EDT, [facility], Partial fill upon patient request if the prescription is for a schedule II opioid drug. Start Date: 07/24/21 Stop Date: 07/31/21 Status: Ordered prazosin 2 mg oral capsule [...] 07/08/21 9:39:00 EDT, Route to Pharmacy Electronically, [facility] 162.5, cm, 07/08/21 8:49:00 EDT, Height, 85.8, kg, 06/04/21 10:0... Start Date: 07/08/21 Status: Ordered tiZANidine 4 mg oral tablet 4 mg, 1, tablet, By Mouth, Every 8 hours, PRN, # 84 tablet, Refills 1, Tot. Refills 1, Maintenance,Spasm, 06/24/21 19:16:00 EDT, Route to Pharmacy Electronically, [facility] 162.5, cm, 06/24/21 15:35:00 EDT, Height, 85.8, kg, ... Start Date: 06/24/21 Stop Date: 08/19/21 Status: Ordered topiramate 25 mg oral tablet 2 tablet = 50 mg, By Mouth, Daily, For nerve pain and headaches, # 60 tablet, 1 Refills, Maintenance, 07/01/21 15:05:00 EDT, Tablet, [facility]., Partial fill upon patient request if the prescription is for a schedule II opioid drug., 1... Start Date: 07/01/21 Status: Ordered Trulicity Pen 1.5 mg/0.5 mL subcutaneous solution 0.5 mL = 1.5 mg, Subcutaneous Injection, Every week, # 2.5 mL, 11 Refills, Maintenance, 04/30/21 12:00:00 EST, Solution, [facility]., Partial fill upon patient request if [...] on CPAP(Confirmed) Active Panic attacks(Confirmed) Active BHN/[facility]CP Paper Products Printer Jb Fabian [phone](Confirmed) Active Syncope and collapse(Confirmed) Active Tobacco dependence(Confirmed) [...]
--- OUTSIDE RECORDS SUMMARY | 2023-03-25 08:20 | XMS_ITS | Continuity of Care Document ---
Author Name Unknown Organization [facility] Address [address] [place] [address]- Care Team Providers Care Paper Coating Supervisor Name Role Phone Richardson RESEARCH MICROBIOLOGIST, Leonora Pérez Primary Care Physician Encounter [facility] Date(s): 12/04/20 - 01/03/21 [facility] [address] [place] [address]- Allergies, Adverse Reactions, Alerts Substance Reaction Severity [...] 14:12:00 EST, Powder, Route to Pharmacy Electronically, [id number], [facility]/pharmacy #[id number], 162.56, cm, 03/27/20 11:36:00... Start Date: 04/05/20 Status: Ordered albuterol 0.083% inhalation solution 3 mL = 2.5 mg, Inhalation, Every 4 hours, PRN for wheezing, # 100 each, 2 Refills, Maintenance, 08/15/20 10:22:00 EDT, Solution, [facility]/pharmacy #[id number], 163, cm, 08/09/20 8:45:00 EDT, Height, 84.8, kg, 06/25/20 20:28:00 EDT, Dry Weight Start Date: 08/15/20 Status: Ordered amitriptyline 75 mg oral tablet 1 tablet = 75 mg, By Mouth, Daily at bedtime, # 30 tablet, 5 Refills, Maintenance, 08/16/20 11:58:00 EDT, Tablet, [facility]/pharmacy #[id number], Partial fill upon patient request if [...] 3 Refills, Maintenance, 11/01/19 15:25:00 EDT, Cream, [facility]/pharmacy #[id number], 1 application Topically 3 times a [...] 0:29:00 EDT,... Start Date: 03/02/20 Status: Ordered estradiol 0.1 mg/g vaginal cream = 1 Gm, Vaginally, Daily at bedtime, # 30 Gm, 11 Refills, Maintenance, 12/31/20 15:58:00 EDT, [facility]/pharmacy #[id number], Partial fill upon patient request if the prescription is for a schedule II opioid drug., 165, cm, 12/31/20 14:56:00 EDT, Height, 87.6, kg... Start Date: 12/31/20 Status: Ordered fluconazole 150 mg oral tablet 1 tablet = 150 mg, By Mouth, Once, epeat dose if still having symptoms in 72 hours, # 2 tablet, 0 Refills, Soft Stop, 11/23/20 14:43:00 EDT, Tablet, [facility]/pharmacy #[id number], Partial fill upon patient request if the prescription is for a schedule II opioid... Start Date: 11/23/20 Status: Ordered fluticasone 50 mcg/inh nasal spray See Instructions, USE 1 SPRAY IN BOTH NOSTRILS 2 TIMES A DAY, # 16 mL, 1 Refills, Maintenance, [id number], 30, USE 1 SPRAY IN BOTH NOSTRILS 2 TIMES A DAY, 163, cm, 08/15/20 14:23:00 EDT, Height,84.8, kg, 06/25/20 20:28:00 EDT, Dry Weight Start Date: 09/07/20 Status: Ordered hydrochlorothiazide 12.5 mg oral tablet 1 tablet = 12.5 mg, By Mouth, Daily, # 90 tablet, 3 Refills, Maintenance, 01/19/20 10:28:00 EDT, Tablet, [facility]/pharmacy #[id number], 163, cm, 12/26/19 13:58:00 EDT, Height, 80, kg, 10/29/19 0:29:00 EDT, Dry Weight Start Date: 01/19/20 Status: Ordered Januvia 100 mg oral tablet 1 tablet = 100 mg, By Mouth, Daily, # 30 tablet, 2 Refills, Maintenance, 10/29/20 14:07:00 EDT, Tablet, [facility]/pharmacy #[id number], 163, cm, 08/15/20 14:23:00 EDT, Height, 84.8, kg, 06/25/20 20:28:00 EDT, Dry Weight Start Date: 10/29/20 Status: Ordered Lantus 100 u/ml subcutaneous solution = 40 units, Subcutaneous Injection, Daily, # 12 mL, 11 Refills, Maintenance, 05/07/20 13:24:00 EST,Solution, [facility] #[id number], increased dose 12/26/19, 162, cm, 04/21/20 11:33:00 EST, Height, 80, kg, 04/18/20 9:48:00 EST, Dry Weight Start Date: 05/07/20 Status: Ordered lidocaine 5% topical film 1 patch, Topically, Daily, For chronic radicular back pain, # 30 patch, 5 Refills, Maintenance, 10/11/20 8:15:00 EDT, [facility]/pharmacy #[id number], 1 patch Topically Daily,Instr:For chronic radicular back pain, 163, cm, 08/15/20 14:23:00 EDT, Height, 84.8, kg,... Start Date: 10/11/20 Status: Ordered lisinopril 20 mg oral tablet 20 mg, 1, tablet, By Mouth, Daily, # 30 tablet, Refills 11, Tot. Refills 11, Maintenance, 05/07/20 13:30:00 EST, Route to Pharmacy Electronically, [facility]/pharmacy #[id number], 162, cm, 04/21/20 11:33:00 EST, Height, 80, kg, 04/18/20 9:48:00 EST, Dry Weight Start Date: 05/07/20 Status: Ordered loratadine 10 mg oral capsule 1 capsule = 10 mg, By Mouth, Daily, # 40 capsule, 0 Refills, Maintenance, 08/15/20 15:59:00 EDT, Capsule, [facility]/pharmacy #[id number], Partial fill upon patient request if the prescription is for a schedule II opioid drug., 163, cm, 08/15/20 14:23:00 EDT, Heig... Start Date: 08/15/20 Status: Ordered Mapap 325 mg oral tablet 2 tablet = 650 mg, By Mouth, Every 4 hours, PRN for pain, not to exceed 3000 mg/day. instructions in german, # 120 tablet, 2 Refills, Maintenance, 11/01/19 15:24:00 EDT, Tablet, [facility]/pharmacy #[id number], 163, cm, 11/01/19 14:40:00 EDT, Height, 80, kg, /... Start Date: 11/01/19 Status: Ordered mirabegron 25 mg oral tablet, extended release 1 tablet = 25 mg, By Mouth, Daily, do not crush or chew, # 30 tablet, 11 Refills, Maintenance, 12/31/20 15:58:00 EDT, ER Tablet, [facility]/pharmacy #[id number], Partial fill upon patient request if [...] 2 Refills, Maintenance, 04/05/20 14:08:00 EST, Tablet, [facility]/pharmacy #[id number], Partial fill upon patient request if [...] request Start Date: 12/07/19 Status: Ordered oxyCODONE 5 mg oral tablet 10 mg, 2, tablet, By Mouth, 2 times a day, for 28 days, # 112 tablet, Refills 0, Tot. Refills 0, Acute 01/29/21 15:40:00 EDT, 01/01/21 15:40:00 EDT, Route to Pharmacy Electronically, [facility]/pharmacy #[id number], Partial fill upon patient request if the prescri... Start Date: 01/01/21 Stop Date: 01/29/21 Status: Ordered prazosin 2 mg oral capsule TAKE 1 CAPSULE BY MOUTH EVERYDAY AT BEDTIME Start Date: 08/09/20 Status: Ordered Senna 8.6 mg oral tablet 8.6 mg, 1, tablet, By Mouth, Daily at bedtime, # 100 tablet, Refills 11, Tot. Refills 11, Maintenance, 10/30/20 11:37:00 EDT, Route to Pharmacy Electronically, [id number], 163, cm, 08/15/20 14:23:00 EDT, Height, 84.8, kg, 06/25/20 20:28:00 EDT... Start Date: 10/30/20 Status: Ordered Soma 350 mg oral tablet 350 mg, 1, tablet, By Mouth, 3 times a day, # 9 tablet, Refills 0, Tot. Refills 0, Maintenance, 05/04/20 15:46:00 EST, Route to Pharmacy Electronically, [facility]/pharmacy #[id number], Partial fill upon patient request if [...] 12/05/20 12:45:00 EDT, Route to Pharmacy Electronically, [facility]/pharmacy #[id number], 165, cm, 11/22/20 8:40:00 EDT, Height, 84.8, kg, 06/25/20 20:28:00... Start Date: 12/05/20 Stop Date: 01/30/21 Status: Ordered Trulicity Pen 0.75 mg/0.5 mL subcutaneous solution 0.5 mL = 0.75 mg, Subcutaneous Injection, Every week, rotate injection sites, # 2 mL, 5 Refills, Maintenance, 10/31/20 15:27:00 EDT, Solution, [facility]/pharmacy #[id number], Partial fill upon patient request ifthe [...] [address] Abd 09/18/16 at [facility], pending MRI 3urge and stress Social History Social History Type Response Tobacco Use: Pt states she q uit smoking 1 week ago. Sex
--- OUTSIDE RECORDS SUMMARY | 2023-03-25 08:20 | XMS_ITS | Continuity of Care Document ---
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 Name Role Phone Richardson QUIROZ, Leonora Pérez Primary Care Physician [facility]): 12/30/19 - 01/29/20 [facility] [address] [place] [address]- [facility] Allergies, Adverse Reactions, Alerts Substance Reaction Severity [...] 12:48:00 EST, Powder, Route to Pharmacy Electronically, [id number], [id number], 158, cm, 04/26/19 9:58:00 EST, [...] Refills, Maintenance, 12/15/19 9:12:00 EDT, Cream, [facility]/pharmacy #[id number], 1 application Topically 2 times [...] 3 Refills, Maintenance, 01/19/20 10:28:00 EDT, Tablet, [facility]/pharmacy #[id number], 163, cm, 12/26/19 13:58:00 EDT, Height, 80, kg, 10/29/19 0:29:00 EDT, Dry Weight Start Date: 01/19/20 Status: Ordered Insulin Syringe, BD Ultra-Fine 1 [...] Refills, Maintenance, 12/30/19 18:21:00 EDT, Tablet, [facility]/pharmacy #[id number], 163, cm, 12/26/19 13:58:00 EDT, Height, 80, kg, 10/29/19 0:29:00 EDT, Dry Weight Start Date: 12/30/19 Status: Ordered Lantus 100 u/ml subcutaneous solution = 35 units, Subcutaneous Injection, Daily, # 10 mL, 11 Refills, Maintenance, 12/26/19 14:22:00 EDT,Solution, [facility]/pharmacy #[id number], increased dose 12/26/19, 163, cm, 12/26/19 13:58:00 EDT, Height, 80, kg, 10/29/19 0:29:00 EDT, Dry Weight Start Date: 12/26/19 Status: Ordered lidocaine 5% topical film 1 patch, Topically, Daily, For chronic radicular back pain, # 30 patch, 5 Refills, Maintenance, 06/27/19 14:37:00 EDT, [facility]/pharmacy #[id number], 1 patch Topically Daily,Instr:For chronic [...] not to exceed 3000 mg/day. instructions in bulgarian, # 120 tablet, 2 Refills, Maintenance, 11/01/19 15:24:00 EDT, Tablet, [facility]/pharmacy #[id number], 163, cm, 11/01/19 14:40:00 EDT, [...] Maintenance, 10/06/19 7:45:00 EDT, EC Capsule, [facility]/pharmacy #[id number], cancel Ranitidine, 160,cm, 09/28/19 8:58:00 [...] HOSPITAL., # 56 tablet, 0 Refills, Acute 02/23/20 17:14:00 EST, 01/26/20 17:14:00 EDT, [facility]/pharmacy #[id number], Partial fill upon patient request, 163, cm, 12/26/19 13:58:00 EDT,... Start Date: 01/26/20 Stop Date: 02/23/20 Status: Ordered Pen [place], 31 G x 5 mm BD Ultra [...] 18:52:00 EST, Route to Pharmacy Electronically, [facility]/pharmacy #[id number], 160, cm, 05/30/19 18:08:00 EST, Height, 88.9, kg, 05/23/19... Start Date: 05/30/19 Status: Ordered Senna 8.6 mg oral tablet 8.6 mg, 1, tablet, By Mouth, Daily at bedtime, # 100 tablet, Refills 2, Tot. Refills 2, Maintenance, 06/10/19 16:12:00 EST, Route to Pharmacy Electronically, [facility]/pharmacy #[id number], 160, cm, 06/01/19 14:08:00 EST, Height, 88.9, kg, 05/23/19 22:09:00 EST,... Start Date: 06/10/19 Status: Ordered Spiriva Respimat 60 ACT 2.5 mcg/inh inhalation aerosol 2 puffs, Inhalation, Daily, # 1 each, 5 Refills, Maintenance, 04/26/19 10:30:00 EST, [facility]/pharmacy #[id number], 158, cm, 04/26/19 9:58:00 EST, Height, 82, kg, 04/01/19 16:10:00 EST, Dry Weight Start Date: 04/26/19 Status: Ordered tiZANidine 4 mg oral tablet 4 mg, 1, tablet, By Mouth, Every 8 hours, # 84 tablet, Refills 1, Tot. Refills 1, Maintenance, 11/24/19 8:16:00 EDT, Route to Pharmacy Electronically, [facility]/pharmacy #[id number], 163, cm, 11/01/19 14:40:00 EDT, [...] [address] Abd 09/18/16 at [facility], pending MRI 3urge and stress Social History Social History Type Response Tobacco Use: Pt states she q uit smoking 1 week ago. Sex Female
--- OUTSIDE RECORDS SUMMARY | 2023-03-25 08:20 | XMS_ITS | Continuity of Care Document ---
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 Name Role Phone Richardson QUIROZ, Leonora Pérez Primary Care Physician [facility] Date[facility]): 08/06/21 - 09/05/21 [facility] [address] [place] [address]- Allergies, Adverse Reactions, Alerts Substance Reaction Severity Status morphine Active gabapentin swelling Active Lyrica dysphagia Active SEROquel body swelling - all over Act tony MetFORMIN Hydrochloride ER black tarry stool Active Immunizations Given and Recorded Vaccine Date Status Refusal Reason SARS-CoV-2 mRNA (thetmon-eopg-vamba) vax 05/14/21 Given influenza virus vaccine, inactivated [...] 07/18/21 15:15:00 EDT, Route to Pharmacy Electronically, [facility], Partial fill upon patient request if the prescription is for a sched... Start Date: 07/18/21 Status: Ordered Advair Diskus 500 mcg-50 mcg inhalation powder 1, puffs, Inhalation, 2 times a day, j45.909, # 1 each, Refills 5, Tot. Refills 5, Maintenance, 05/15/21 9:20:00 EST, Powder, Route to Pharmacy Electronically, [id number], [facility], 162.5, cm, 05/10/21 14:47... Start Date: 05/15/21 Status: Ordered albuterol 0.083% inhalation solution 3 mL = 2.5 mg, Inhalation, Every 4 hours, PRN for wheezing, # 100 each, 2 Refills, Maintenance, 05/15/21 9:30:00 EST, Solution, [facility], 162.5, cm, 05/10/21 14:47:00 EST, Height, 90.9, kg, 02/02/21 5:59:00 EDT, Dry Weight Start Date: 05/15/21 Status: Ordered amitriptyline 25 mg oral tablet 25 mg, 1, tablet, By Mouth, Daily at bedtime, # 30 tablet, Refills 2, Tot. Refills 2, Maintenance, 08/30/21 12:06:00 EDT, Route to Pharmacy Electronically, [facility], Partial fill upon patient request if the prescription is for a sche... Start Date: 08/30/21 Status: Ordered cetirizine 10 mg oral tablet 1 tablet = 10 mg, By Mouth, Daily, # 30 tablet, 5 Refills, Maintenance, 08/28/21 9:07:00 EDT, Tablet, [facility], 162, cm, 08/22/21 9:46:00 EDT, Height, 86, kg, 07/23/21 0:58:00 EDT, Dry Weight Start Date: 08/28/21 Status: Ordered cholecalciferol 5000 intl units oral capsule 1 capsule = 125 mcg, By Mouth, Daily, with food, # 100 capsule, 2 Refills, Maintenance, 02/11/21 11:17:00 EST, Capsule, [facility]/pharmacy #[id number], Partial fill upon patient request if [...] 1 Refills, Maintenance, 07/08/21 9:45:00 EDT, [facility] PLEASE CANCEL ESTRADIOL VAGINAL CREAM, [...] tablet, 5 Refills, Maintenance, 08/28/21 9:07:00 EDT,Tablet, [facility], Partial fill upon patient request if the prescription is for a schedule II opioid drug., 162, cm, 08/22/21 9:46:00... Start Date: 08/28/21 Status: Ordered fluticasone 50 mcg/inh nasal spray See Instructions, USE 1 SPRAY IN BOTH NOSTRILS 2 TIMES A DAY, # 16 mL, 1 Refills, 07/08/21 9:44:00 EDT, [facility]., 30, USE 1 SPRAY IN BOTH NOSTRILS 2 TIMES A DAY, 162.5, cm, :49:00 EDT, Height, 85.8, kg, 06/04/21 10:03:00 ES... Start Date: 07/08/21 Status: Ordered hydrochlorothiazide 12.5 mg oral tablet 1 tablet = 12.5 mg, By Mouth, Daily, TAKE 1 TABLET BY MOUTH EVERY DAY, # 30 capsule, 2 Refills, Maintenance, 08/28/21 9:07:00 EDT, [facility]., 162, cm, 08/22/21 9:46:00 EDT, Height, 86, kg, 07/23/21 0:58:00 EDT, Dry Weight Start Date: 08/28/21 Status: Ordered Insulin Syringe, BD Ultra-Fine 0.5 cc 31 G x 8 mm (08/19in) See Instructions, # 100 each, Refills 11, Tot. Refills 11, Maintenance, Dx: DM2 once daily injections, 07/08/21 9:48:00 EDT, Supply, 162.5, cm, 07/08/21 8:49:00 EDT, Height, 85.8, kg, 06/04/21 10:03:00 EST, Dry Weight Start Date: 07/08/21 Status: Ordered Januvia 100 mg oral tablet 1 tablet = 100 mg, By Mouth, Daily, # 90 tablet, 3 Refills, Maintenance, 06/18/21 21:04:00 EDT, Tablet, [facility], 162.5, cm, 06/17/21 13:04:00 EDT, Height, 85.8, kg, 06/04/21 10:03:00 EST, Dry Weight Start Date: 06/18/21 Status: Ordered Lantus 100 u/ml subcutaneous solution = 50 units, Subcutaneous Injection, Daily, # 15 mL, 5 Refills, Maintenance, 07/08/21 9:38:00 EDT, Solution, [facility], ;, 162.5, cm, 07/08/21 8:49:00 EDT, Height, 85.8, kg, 06/04/21 10:03:00 EST, Dry Weight Start Date: 07/08/21 Status: Ordered lisinopril 20 mg oral tablet 20 mg, 1, tablet, By Mouth, Daily, # 90 tablet, Refills 3, Tot. Refills 3, Maintenance, 08/28/21 9:07:00 EDT, Route to Pharmacy Electronically, [facility], 162, cm, 08/22/21 9:46:00 EDT, Height, [...] Refills, Maintenance, 05/09/21 10:45:00 EST, EC Capsule, [facility], 162.5, cm, 03/22/21 14:58:00 EST, Height, 90.9,kg, 02/02/21 5:59:00 EDT, Dry Weight Start Date: 05/09/21 Status: Ordered OxyCONTIN 15 mg oral tablet, extended release 1 tablet = 15 mg, By Mouth, Every 12 hours, # 56 tablet, 0 Refills, Maintenance, 08/03/21 7:30:00 EDT, ER Tablet, [facility], Partial fill upon patient request if the prescription is for a schedule II opioid drug. Patient on contract.... Start Date: 08/03/21 Stop Date: 08/31/21 Status: Ordered Senna 8.6 mg oral tablet 8.6 mg, 1, tablet, By Mouth, Daily at bedtime, # 100 tablet, Refills 11, Tot. Refills 11, Maintenance, 07/08/21 9:39:00 EDT, Route to Pharmacy Electronically, [facility] 162.5, cm, 07/08/21 8:49:00 EDT, Height, 85.8, kg, 06/04/21 10:0... Start Date: 07/08/21 Status: Ordered Trulicity Pen 3 mg/0.5 mL subcutaneous solution 0.5 mL = 3 mg, Subcutaneous Injection, Every week, rotate injection sites, # 2 mL, 5 Refills, Maintenance, 09/03/21 15:49:00 EDT, Solution, [facility], Partial fill upon patient request if [...] on CPAP(Confirmed) Active Panic attacks(Confirmed) Active BHN/BHCP Reference Investigator Jb Fabian [phone](Confirmed) Active Syncope and collapse(Confirmed) Active Tobacco dependence(Confirmed) Active DM2 (diabetes mellitus, type 2)(Confirmed) 04/03/17 Active Incontinence of urine(Confirmed) 3 Active 1seen on MRI 10/2016, rec repeat imaging in October [address] [place] [facility] 3urge and stress Social History Social History Type Response Smoking Status Current every day kaitlin valle; Type: Cigarettes; Tobacco use times per day: 1/2 ppd; entered on: 12/24/17 Sex
--- OUTSIDE RECORDS SUMMARY | 2023-03-25 08:20 | XMS_ITS | Continuity of Care Document ---
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 Name Role Phone Richardson QUIROZ, Leonora Pérez Primary Care Physician [facility]): 05/19/22 - 06/18/22 [facility] [address] [place] [address]- Encounter Diagnosis INA (stress urinary incontinence, female)(Discharge Diagnosis) - 02/11/19 Attending Physician: Clarence Reynaga Admitting Physician: Clarence Reynaga Referring Physician: Clarence Reynaga Allergies, Adverse Reactions, Alerts Substance Reaction Severity Status morphine Active gabapentin swelling Active Lyrica dysphagia Active SEROquel body swelling - all over Act tony MetFORMIN Hydrochloride ER black tarry stool Active Immunizations Given and Recorded Vaccine Date Status Refusal Reason [id number] 12y+ bivalent booster vax 01/30/22 Given influenza virus vaccine, inactivated 01/30/22 Give n influenza virus vaccine, inactivated 02/04/21 Give n influenza virus vaccine, inactivated 1 04/19/20 Gi tonio influenza virus vaccine, inactivated 03/12/19 Give n influenza virus vaccine, inactivated 01/19/18 Give n influenza virus vaccine, inactivated 02/16/17 Give n pneumococcal 20-valent conjugate vaccine 12/26/21 Given SARS-CoV-2 mRNA ([id number]) vax 05/14/21 Given SARS-CoV-2 (COVID-19) mRNA BNT-162b2 [...] 10/22/21 9:23:00 EDT, Route to Pharmacy Electronically, [facility], Partial fill uponpatient request if the [...] Daily, # 30 tablet, 5 Refills, Maintenance, 04/03/22 11:25:00 EST, [facility], 163, cm, 02/11/22 19:19:00 EST, Height, 83, kg, 02/11/22 19:19:00 EST, Dry Weight Start Date: 04/03/22 Status: Ordered amitriptyline 25 mg oral tablet 25 mg, 1, tablet, By Mouth, Daily at bedtime, # 30 tablet, Refills 2, Tot. Refills 2, Maintenance, 08/30/21 12:06:00 EDT, Route to Pharmacy Electronically, [facility], Partial fill upon patient request if the prescription is for a sche... Start Date: 08/30/21 Status: Ordered amLODIPine 5 mg oral tablet 5 mg, 1, tablet, By Mouth, Daily, # 90 tablet, Refills 3, Tot. Refills 3, Maintenance, 04/29/22 11:56:00 EST, Route to Pharmacy Electronically, [facility] Partial fill upon patient request if the prescription is for a schedule II opio... Start Date: 04/29/22 Status: Ordered cholecalciferol 5000 intl units oral capsule 1 capsule = 125 mcg, By Mouth, Daily, with food, # 100 capsule, 2 Refills, Maintenance, 02/11/21 11:17:00 EST, Capsule, [facility]/pharmacy #[id number], Partial fill upon patient [...] 11 Refills, Maintenance, 02/21/22 10:35:00 EST, Tablet, [facility] Partial fill upon patient request if the prescription is for a schedule II opioid drug., 2 tablet By... Start Date: 02/21/22 Status: Ordered duloxetine 60 mg oral enteric coated capsule 2 capsule = 120 mg, By Mouth, Daily, # 60 capsule, 5 Refills, Maintenance, 05/26/22 17:03:00 EST, Capsule, [facility] Partial fill upon patient request. NOT INCREASED DOSE. Please cancel all other Duloxetine scripts, 163, cm, 05/19/22... Start Date: 05/26/22 Status: Ordered empagliflozin 10 mg oral tablet 1 tablet = 10 mg, By Mouth, Daily in AM, # 30 tablet, 5 Refills, Maintenance, 02/20/22 12:04:00 EST, Tablet, [facility] Partial fill upon patient request [...] Tot. Refills 1, Maintenance, NEEDED FOR PAIN, 04/29/22 11:56:00 EST, Route to Pharmacy Electronically, [facility], 163, cm, 02/11/22 19:19:00 EST, Height, 83, kg, 11/0... Start Date: 04/29/22 Status: Ordered Januvia 100 mg oral tablet 1 tablet = 100 mg, By Mouth, Daily, # 90 tablet, 3 Refills, Maintenance, 06/18/21 21:04:00 EDT, Tablet, [facility], 162.5, cm, 06/17/21 13:04:00 EDT, Height, 85.8, kg, 06/04/21 10:03:00 EST, Dry Weight Start Date: 06/18/21 Status: Ordered Lantus 100 u/ml subcutaneous solution = 50 units, Subcutaneous Injection, Daily, # 15 mL, 2 Refills, Maintenance, 01/06/22 12:07:00 EDT, Solution, [facility], ;, 163, cm, 01/03/22 11:20:00 EDT, Height, 84, kg, 01/02/22 19:36:00 EDT, Dry Weight Start Date: 01/06/22 Status: Ordered lidocaine 5% topical film 1 patch, Topically, Daily, PRN Pain , Mild, remove after 12 hours, # 13 each, 5 Refills, Maintenance, 04/29/22 11:56:00 EST, Film, [facility]., Partial fill upon patient request if theprescription is for a schedule II opioid drug., 1 p... Start Date: 04/29/22 Status: Ordered lisinopril 20 mg oral tablet 20 mg, 1, tablet, By Mouth, Daily, # 90 tablet, Refills 3, Tot. Refills 3, Maintenance, 08/28/21 9:07:00 EDT, Route to Pharmacy Electronically, [facility]., 162, cm, 08/22/21 9:46:00 EDT, Height, 86, kg, 07/23/21 0:58:00 EDT, Dry Weight Start Date: 08/28/21 Status: Ordered Melatonin 10 mg oral tablet 1 tablet = 10 mg, By Mouth, Daily at bedtime, # 30 each, 11 Refills, Maintenance, 04/29/22 11:56:00EST, [facility]., Partial fill upon patient request if the prescription is for a schedule II opioid drug., 163, cm, 02/11/22 19:19:00 ES... Start Date: 04/29/22 Status: Ordered mirtazapine 30 mg oral tablet 1 tablet = 30 mg, By Mouth, Daily at bedtime, Maintenance, 05/24/19 9:12:00 EST, Tablet Start Date: 05/24/19 Status: Ordered omeprazole 40 mg oral enteric coated capsule 1 capsule, By Mouth, Daily, PRN NEEDED, # 30 capsule, 2 Refills, [facility], 162, cm, 09/06/21 13:04:00 EDT, Height, 86, kg, 07/23/21 0:58:00 EDT, Dry Weight Start Date: 10/02/21 Status: Ordered oxyCODONE 15 mg oral tablet 1 tablet = 15 mg, By Mouth, 3 times a day, on contract at [facility], # 84 tablet, 0 Refills, Maintenance, 05/28/22 14:56:00 EST, [facility]., Partial fill upon patient request if the prescription is for a schedule II opioid drug., 163, cm, 0... Start Date: 05/28/22 Stop Date: 06/25/22 Status: Ordered prazosin 2 mg oral capsule 0 Refills, Maintenance, 02/06/22 16:42:00 EDT, Partial fill upon patient request if the prescription is for a schedule II opioid drug. Start Date: 02/06/22 Status: Ordered Senna 8.6 mg oral tablet 8.6 mg, 1, tablet, By Mouth, Daily at bedtime, # 100 tablet, Refills 11, Tot. Refills 11, Maintenance, 07/08/21 9:39:00 EDT, Route to Pharmacy Electronically, [facility], 162.5, cm, 07/08/21 8:49:00 EDT, Height, 85.8, kg, 06/04/21 10:0... Start Date: 07/08/21 Status: Ordered tiZANidine 4 mg oral capsule 1 capsule, By Mouth, 3 times a day, # 90 capsule, 0 Refills, Maintenance, 05/26/22 17:03:00 EST, [facility], 163, cm, 05/19/22 15:33:00 EST, Height, 83, kg, 02/11/22 19:19:00 EST, DryWeight Start Date: 05/26/22 Status: Ordered Trulicity Pen 3 mg/0.5 mL subcutaneous solution See Instructions, INJECT 0.5 ML SUBCUTANEOUSLY EVERY WEEK. 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 Charlene Fabian [phone] Confirmed Active Syncope and collapse Confirmed Active Tobacco dependence Confirmed Active DM2 (diabetes mellitus, type 2) Confirmed 04/03/17 Active Incontinence of urine 3 Confirmed Active 1seen on MRI 10/2016, rec repeat imaging in October [address] Abd 09/18/16 at [facility] [place], pending MRI 3urge and stress Diagnosis Diagnosis Type Effective Dates Health Status Cl inical Service Informant INA (stress urinary incontinence, female) Discharge Diagnosis 02/11/19 Social History Social History Type Response Smoking Status Current every day sm oker; Type: Cigarettes; Tobacco use times per day: 1/2 ppd; entered on: 12/24/17 Sex Note * Event Display: MRI Spine, Non- Authored Date: * Event Display: X-Ray Spine, Non- Authored Date: * Event Display: MRI Spine, Non- Authored Date: * Event Display: IR Special Procedures, Non- Authored Date: Patient Care team information Care Team Personnel Name: Sindy Bernal RN Position: [facility] RN Member Role: Primary Care Nurse Name: Graciela Thrasher RN Position: [facility] RN Member Role: Primary Care Nurse Name: Stevie Angel RN Position: [facility] RN Member Role: Primary Care Nurse Name: Leonora Bai NP Position: [facility] Associate Professional Member Role: PCP Address: Address: [address] [place] [id number] Name: Keily Ortega RN Position: [facility] RN Member Role: Primary Care Nurse Name: Graciela Munroe RN Position: [facility] RN Member Role: Primary Care Nurse Name: Nichole Pichardo RN Position: [facility] RN Member Role: Primary Care Nurse Name: Melvin Whitfield RN Position: [facility] PCO RN Member Role: Primary Care Nurse Name: Phuong Berkowitz RN Position: [facility] RN Member Role: Primary Care Nurse Name: Joselyn Rain RN Position: [facility] Hospital Metal Fitter Member Role: Primary Care Nurse Care Team Related Persons Name: IRA ROMERO Address: home [address] [place] [id number] Name: JHON LARSON Address: [address] [place] [address] Name: JHON LARSON Address: [address] [place] [address] Name: GALO CATALAN Name: NANCY CATALAN Address: home [address] [place] [address]
--- OUTSIDE RECORDS SUMMARY | 2023-03-25 08:20 | XMS_ITS | Continuity of Care Document ---
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..] 10/22/21 9:23:00 EDT, Route to Pharmacy Electronically, [facility], Partial fill uponpatient request if the prescription is for a schedu... Start Date: 10/22/21 Status: Ordered Advair Diskus 500 mcg-50 mcg inhalation powder 1, puffs, Inhalation, 2 times a day, j45.909, # 1 each, Refills 5, Tot. Refills 5, Maintenance, 05/15/21 9:20:00 EST, Powder, Route to Pharmacy Electronically, [id number], [facility], 162.5, cm, 05/10/21 14:47... Start Date: 05/15/21 Status: Ordered albuterol 0.083% inhalation solution 3 mL = 2.5 mg, Inhalation, Every 4 hours, PRN for wheezing, # 100 each, 2 Refills, Maintenance, 11/22/21 12:30:00 EDT, Solution, [facility]., 162, cm, 11/14/21 11:01:00 EDT, Height, 86, kg, 07/23/21 0:58:00 EDT, Dry Weight Start Date: 11/22/21 Status: Ordered amitriptyline 25 mg oral tablet 25 mg, 1, tablet, By Mouth, Daily at bedtime, # 30 tablet, Refills 2, Tot. Refills 2, Maintenance, 08/30/21 12:06:00 EDT, Route to Pharmacy Electronically, [facility], Partial fill upon patient request if the prescription is for a sche... Start Date: 08/30/21 Status: Ordered Atrovent HFA 17 mcg/inh inhalation aerosol 2 puffs, Inhalation, 4 times a day, # 12.9 Gm, 5 Refills, Maintenance, 12/26/21 10:37:00 EDT, Aerosol, [facility], Partial fill upon patient request if the prescription is for a schedule II opioid drug., 162, cm, 12/26/21 10:16:00 EDT,... Start Date: 12/26/21 Status: Ordered cetirizine 10 mg oral tablet 1 tablet = 10 mg, By Mouth, Daily, # 30 tablet, 5 Refills, Maintenance, 08/28/21 9:07:00 EDT, Tablet, [facility]., 162, cm, 08/22/21 9:46:00 EDT, Height, 86, kg, 07/23/21 0:58:00 EDT, Dry Weight Start Date: 08/28/21 Status: Ordered cholecalciferol 5000 intl units oral capsule 1 capsule = 125 mcg, By Mouth, Daily, with food, # 100 capsule, 2 Refills, Maintenance, 02/11/21 11:17:00 EST, Capsule, [facility]/pharmacy #[id number], Partial fill upon patient request if [...] 1 Refills, Maintenance, 12/26/21 10:38:00 EDT, Cream, [facility]., 1 application Topically 2 times a [...] tablet, 0 Refills, Maintenance, 10/24/2219:09:00 EDT, [facility] Partial fill upon patient request if the prescription is for a schedule II opioid drug., 2 tablet By... Start Date: 10/23/21 Status: Ordered duloxetine 60 mg oral enteric coated capsule 2 capsule = 120 mg, By Mouth, Daily, # 60 capsule, 5 Refills, Maintenance, 11/14/21 11:41:00 EDT, Capsule, [facility] Partial fill upon patient request. NOT INCREASED DOSE. Please cancel all other Duloxetine scripts, 162, cm, 11/14/21... Start Date: 11/14/21 Status: Ordered empagliflozin 10 mg oral tablet 1 tablet = 10 mg, By Mouth, Daily in AM, # 30 tablet, 5 Refills, Maintenance, 08/28/21 9:07:00 EDT,Tablet, [facility] Partial fill upon patient request if the prescription is for a schedule II opioid drug., 162, cm, 08/22/21 9:46:00... Start Date: 08/28/21 Status: Ordered fluticasone 50 mcg/inh nasal spray See Instructions, USE 1 SPRAY IN BOTH NOSTRILS 2 TIMES A DAY, # 16 mL, 1 Refills, 07/08/21 9:44:00 EDT, [facility] 30, USE 1 SPRAY IN [...] Mouth, Daily, # 30 tablet, 5 Refills, [facility], 162, cm, 11/14/21 11:01:00EDT, Height, 86, kg, 07/23/21 0:58:00 EDT, Dry Weight Start Date: 11/19/21 Status: Ordered ibuprofen 800 mg oral tablet 800 mg, 1, tablet, By Mouth, 3 times a day, PRN, # 90 tablet, Refills 1, Tot. Refills 1, Maintenance, Pain , Mild, 01/06/22 12:22:00 EDT, Route to Pharmacy Electronically, [facility],please fill 800mg instead of 600mg, 163, cm, ... Start Date: 01/06/22 Status: Ordered Insulin Syringe, [...] 3 Refills, Maintenance, 06/18/21 21:04:00 EDT, Tablet, [facility], 162.5, cm, 06/17/21 13:04:00 EDT, Height, 85.8, kg, 06/04/21 10:03:00 EST, Dry Weight Start Date: 06/18/21 Status: Ordered Lantus 100 u/ml subcutaneous solution = 50 units, Subcutaneous Injection, Daily, # 15 mL, 2 Refills, Maintenance, 01/06/22 12:07:00 EDT, Solution, [facility], ;, 163, cm, 01/03/22 11:20:00 EDT, Height, 84, kg, 01/02/22 19:36:00 EDT, Dry Weight Start Date: 01/06/22 Status: Ordered lidocaine 5% topical film 1 patch, Topically, Daily, PRN Pain , Mild, remove after 12 hours, # 13 each, 5 Refills, Maintenance, 12/26/21 10:37:00 EDT, Film, [facility]., Partial fill upon patient request if theprescription is for a schedule II opioid drug., 1 p... Start Date: 12/26/21 Status: Ordered lisinopril 20 mg oral tablet 20 mg, 1, tablet, By Mouth, Daily, # 90 tablet, Refills 3, Tot. Refills 3, Maintenance, 08/28/21 9:07:00 EDT, Route to Pharmacy Electronically, [facility], 162, cm, 08/22/21 9:46:00 EDT, Height, 86, kg, 07/23/21 0:58:00 EDT, Dry Weight Start Date: 08/28/21 Status: Ordered Melatonin 10 mg oral tablet 1 tablet = 10 mg, By Mouth, Daily at bedtime, # 30 each, 5 Refills, Maintenance, 11/14/21 11:42:00 EDT, [facility], Partial fill upon patient request if the prescription is for a schedule II opioid drug., 162, cm, 11/14/21 11:01:00 EDT... Start Date: 11/14/21 Status: Ordered mirtazapine 30 mg oral tablet 1 tablet = 30 mg, By Mouth, Daily at bedtime, Maintenance, 05/24/19 9:12:00 EST, Tablet Start Date: 05/24/19 Status: Ordered nystatin topical 002629 u/gm powder 1 application, Topically, 2 times a day, # 60 Gm, 1 Refills, Maintenance, 12/26/21 10:38:00 EDT, Powder, [facility]., Partial fill upon patient request if the prescription is for a schedule II opioid drug., 1 application Topically 2 quinton... Start Date: 12/26/21 Status: Ordered omeprazole 40 mg oral enteric coated capsule 1 capsule, By Mouth, Daily, PRN NEEDED, # 30 capsule, 2 Refills, [facility], 162, cm, 09/06/21 13:04:00 EDT, Height, 86, kg, 07/23/21 0:58:00 EDT, Dry Weight Start Date: 10/02/21 Status: Ordered oxyCODONE 5 mg oral tablet 5 mg, 1, tablet, By Mouth, 2 times a day, for 26 days, # 52 tablet, Refills 0, Tot. Refills 0, Acute 01/21/22 10:39:00 EDT, 12/26/21 10:39:00 EDT, Route to Pharmacy Electronically, [facility], Partial fill upon patient request if the p... Start Date: 12/26/21 Stop Date: 01/21/22 Status: Ordered OxyCONTIN 10 mg oral tablet, extended release 10 mg, 1, tablet, By Mouth, Every 12 hours, # 56 tablet, Refills 0, Tot. Refills 0, Maintenance, 12/23/21 17:17:00 EDT, Route to Pharmacy Electronically, [facility], Partial fill uponpatient request if the prescription is for a schedu... Start Date: 12/23/21 Stop Date: 01/20/22 Status: Ordered potassium chloride 10 mEq oral capsule, extended release 2 capsule = 20 mEq, By Mouth, Daily, do not crush or chew. with a full glass of water. with food., # 60 capsule, 0 Refills, Maintenance, 01/03/22 11:56:00 EDT, CR Capsule, [facility],Partial fill upon patient request if the pres... Start Date: 01/03/22 Stop Date: 02/02/22 Status: Ordered Senna 8.6 mg oral tablet 8.6 mg, 1, tablet, By Mouth, Daily at bedtime, # 100 tablet, Refills 11, Tot. Refills 11, Maintenance, 07/08/21 9:39:00 EDT, Route to Pharmacy Electronically, [facility]., 162.5, cm, 07/08/21 8:49:00 EDT, Height, 85.8, kg, 06/04/21 10:0... 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 [phone] Confirmed Active Syncope and collapse Confirmed Active Tobacco dependence Confirmed Active DM2 (diabetes mellitus, type 2) Confirmed 04/03/17 Active Incontinence of urine 3 Confirmed Active 1seen on MRI 10/2016, rec repeat imaging in October [address] Abd 09/18/16 at [facility], pending MRI 3urge and stress Social History Social History Type Response Smoking Status Current every day kaitlin valle; Type: Cigarettes; Tobacco use times per day: 1/2 ppd; entered on: 12/24/17 Sex Patient Care team information Personnel Name: Richardson QUIROZ, Leonora Pérez Address: Address: [address] [place] [address]
--- OUTSIDE RECORDS SUMMARY | 2023-03-25 08:20 | XMS_ITS | Continuity of Care Document ---
Author Name Unknown Organization [facility] Address [address] [place] [address]- Care Team Providers Care Shield Runner Name Role Phone Richardson QUIROZ, Leonora Pérez Primary Care Physician Encounter [facility] ACCT R [id number] Date(s): 04/29/21 - 06/16/21 [facility] [address] [place], [place] [address] Attending Physician: Not on Staff, Attending MD Referring Physician: Leonora Bai NP Allergies, Adverse Reactions, Alerts Substance Reaction Severity Status morphine Active gabapentin swelling Active MetFORMIN Hydrochloride ER black tarry stool Active SEROquel body swelling - all over Act tony Lyrica dysphagia Active Immunizations Given and Recorded Vaccine Date Status Refusal Reason SARS-CoV-2 mRNA (zlymrhe-aluf-[id number]) vax 05/14/21 Given influenza virus vaccine, inactivated [...] tablet, Refills 1, Tot. Refills 1, Maintenance, 05/31/21 15:43:00 EST, Route to Pharmacy Electronically, [facility], Partial fill upon patient request if the prescription is for a sched... Start Date: 05/31/21 Status: Ordered Advair Diskus 500 mcg-50 mcg inhalation powder 1, puffs, Inhalation, 2 times a day, j45.909, # 1 each, Refills 5, Tot. Refills 5, Maintenance, 05/15/21 9:20:00 EST, Powder, Route to Pharmacy Electronically, [id number], [facility], 162.5, cm, 05/10/21 14:47... Start Date: 05/15/21 Status: Ordered albuterol 0.083% inhalation solution 3 mL = 2.5 mg, Inhalation, Every 4 hours, PRN for wheezing, # 100 each, 2 Refills, Maintenance, 05/15/21 9:30:00 EST, Solution, [facility], 162.5, cm, 05/10/21 14:47:00 EST, Height, 90.9, kg, 02/02/21 5:59:00 EDT, Dry Weight Start Date: 05/15/21 Status: Ordered amitriptyline 75 mg oral tablet 1 tablet = 75 mg, By Mouth, Daily at bedtime, # 90 tablet, 1 Refills, Maintenance, 05/07/21 10:21:00 EST, Tablet, [facility], Partial fill upon patient request if the prescription is for a schedule II opioid drug., 162.5, cm, 03/22/21... Start Date: 05/07/21 Status: Ordered atorvastatin 20 mg oral tablet 3 tablet = 60 mg, By Mouth, Daily, # 90 tablet, 3 Refills, Maintenance, 04/05/20 14:11:00 EST, Tablet, [facility]/pharmacy #[id number], Partial fill upon patient request if the prescription is for a schedule II opioid drug., 162.56, cm, 03/27/20 11:36:00 EST, Heig... Start Date: 04/05/20 Status: Ordered capsaicin 0.025% topical cream 1 application, Topically, 3 times a day, # 45 Gm, 3 Refills, Maintenance, 11/01/19 15:25:00 EDT, Cream, [facility]/pharmacy #[id number], 1 application Topically 3 times a day, 163, cm, 11/01/19 14:40:00 EDT, Height, 80, kg, 10/29/19 0:29:00 EDT, Dry Weight Start Date: 11/01/19 Status: Ordered cetirizine 10 mg oral tablet 1 tablet = 10 mg, By Mouth, Daily, # 30 tablet, 5 Refills, Maintenance, 06/20/20 13:18:00 EDT, Tablet, [facility]/pharmacy #[id number], 162, cm, 05/24/20 9:01:00 EST, Height, 80, kg, 04/18/20 9:48:00 EST, Dry Weight Start Date: 06/20/20 Status: Ordered cholecalciferol 5000 intl units oral capsule 1 capsule = 125 mcg, By Mouth, Daily, with food, # 100 capsule, 2 Refills, Maintenance, 02/11/21 11:17:00 EST, Capsule, [facility]/pharmacy #[id number], Partial fill upon patient request [...] 1 Refills, Maintenance, 12/05/20 12:42:00 EDT, Cream, [facility]/pharmacy #[id number], 1 application Topically 2 times [...] 5 Refills, Maintenance, 02/18/21 15:09:00 EST, Capsule, [facility]/pharmacy #[id number], Partial fill upon patient request. [...] DAY, # 16 mL, 1 Refills, Maintenance, [facility] STORE [id number], 30, USE 1 SPRAY IN BOTH NOSTRILS 2 TIMES A DAY, 163, cm, 08/15/20 14:23:00 EDT, Height,84.8, kg, 06/25/20 20:28:00 EDT, Dry Weight Start Date: 09/07/20 Status: Ordered hydrochlorothiazide 12.5 mg oral tablet 1 tablet = 12.5 mg, By Mouth, Daily, TAKE 1 TABLET BY MOUTH EVERY DAY, # 30 capsule, 2 Refills, Maintenance, 05/15/21 9:20:00 EST, [facility]., 162.5, cm, 05/10/21 14:47:00 EST, Height, 90.9, kg, 02/02/21 5:59:00 EDT, Dry Weight Start Date: 05/15/21 Status: Ordered ibuprofen 800 mg oral tablet 800 mg, 1, tablet, By Mouth, 3 times a day, PRN, for 14 days, Do not take with Nabumetone, # 42 tablet, Refills 1, Tot. Refills 1, Acute 07/03/21 15:55:00 EDT, Pain , Moderate, 06/05/21 15:55:00 EST,Route to Pharmacy Electronically, [facility]... Start Date: 06/05/21 Stop Date: 07/03/21 Status: Ordered Insulin Syringe, BD Ultra-Fine 0.5 [...] 2 Refills, Maintenance, 03/01/21 12:42:00 EST, Tablet, [facility]/pharmacy #[id number], 155, cm, 02/18/21 14:54:00 EST, Height, 90.9, kg, 02/02/21 5:59:00 EDT, DryWeight Start Date: 03/01/21 Status: Ordered Lantus 100 u/ml subcutaneous solution = 40 units, Subcutaneous Injection, Daily, # 12 mL, 2 Refills, Maintenance, 03/01/21 12:42:00 EST, Solution, [facility]/pharmacy #[id number], increased dose 12/26/19, 155, cm, [...] 04/12/21 13:24:00 EST, Route to Pharmacy Electronically, [facility]/pharmacy #[id number], 162.5, cm, 03/22/21 14:58:00 EST, Height, 90.9, kg, 02/02/21 5:59:00 EDT, Dry Weight Start Date: 04/12/21 Status: Ordered loratadine 10 mg oral capsule 1 capsule = 10 mg, By Mouth, Daily, # 40 capsule, 0 Refills, Maintenance, 08/15/20 15:59:00 EDT, Capsule, [facility]/pharmacy #[id number], Partial fill upon patient request if the prescription is for a schedule II opioid drug., 163, cm, 08/15/20 14:23:00 EDT, Heig... Start Date: 08/15/20 Status: Ordered mirabegron 25 mg oral tablet, extended release 1 tablet = 25 mg, By Mouth, Daily, do not crush or chew, # 30 tablet, 11 Refills, Maintenance, 12/31/20 15:58:00 EDT, ER Tablet, [facility]/pharmacy #[id number], Partial fill upon patient request [...] Refills, Maintenance, 05/09/21 10:45:00 EST, EC Capsule, [facility], 162.5, cm, 03/22/21 14:58:00 EST, Height, 90.9,kg, 02/02/21 5:59:00 EDT, Dry Weight Start Date: 05/09/21 Status: Ordered oxyCODONE 15 mg oral tablet 1 tablet = 15 mg, By Mouth, 3 times a day, for 28 days, MASSPAT CHECKED PT ON CONTRACT AT [facility], # 84 tablet, 0 Refills, Acute 07/11/21 16:22:00 EDT, 06/13/21 16:22:00 EST, [facility] 162.5, cm, 06/06/21 9:12:00 EST, Height... Start Date: 06/13/21 Stop Date: 07/11/21 Status: Ordered Physical Therapy Physical Therapy, See [...] 10/30/20 11:37:00 EDT, Route to Pharmacy Electronically, [facility]/pharmacy #[id number], 163, cm, 08/15/20 14:23:00 EDT, Height, 84.8, kg, 06/25/20 20:28:00 EDT... Start Date: 10/30/20 Status: Ordered Splint See Instructions, # 1 each, Maintenance, Right COCK-UP wrist splint for CTS, use nightly, 08/09/20 9:26:00 EDT, Supply Start Date: 08/09/20 Status: Ordered tiZANidine 4 mg oral tablet 4 mg, 1, tablet, By Mouth, Every 8 hours, PRN, # 84 tablet, Refills 1, Tot. Refills 1, Maintenance,Spasm, 04/24/21 8:58:00 EST, Route to Pharmacy Electronically, [facility]., 162.5, cm, 03/22/21 14:58:00 EST, Height, 90.9, kg, 02/02/21... 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
--- OUTSIDE RECORDS SUMMARY | 2023-03-25 08:20 | XMS_ITS | Continuity of Care Document ---
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 Role Phone Richardson EXAMINING OFFICER, Leonora Pérez Primary Care Physician Encounter [facility] Date(s): 08/21/22 - 09/21/22 [facility] [address] [place] [address]- Attending Physician: Kacie Acosta NP Admitting Physician: Kacie Acosta NP Allergies, Adverse Reactions, Alerts Substance Reaction Severity Status morphine Active gabapentin swelling Active Lyrica dysphagia Active SEROquel body swelling - all over Act tony MetFORMIN Hydrochloride ER black tarry stool Active Immunizations Given and Recorded Vaccine Date Status Refusal Reason [id number] 12y+ bivalent booster vax 01/30/22 Given influenza virus vaccine, inactivated 01/30/22 Give n influenza virus vaccine, inactivated 02/04/21 Give n influenza virus vaccine, inactivated 1 04/19/20 Gi tonio influenza virus vaccine, inactivated 03/12/19 Give n influenza virus vaccine, inactivated 01/19/18 Give n influenza virus vaccine, inactivated 02/16/17 Give n pneumococcal 20-valent conjugate vaccine 12/26/21 Given SARS-CoV-2 mRNA ([id number]) vax 05/14/21 Given SARS-CoV-2 (COVID-19) mRNA [id number] [...] 10/22/21 9:23:00 EDT, Route to Pharmacy Electronically, [facility], Partial fill uponpatient request if the [...] tablet, 1 Refills, Maintenance, 07/25/22 12:30:00 EDT, [facility], 163, cm, 07/11/22 14:19:00 EDT, Height, 83, kg, 02/11/22 19:19:00 EST, Dry Weight Start Date: 07/25/22 Status: Ordered amLODIPine 5 mg oral tablet 5 mg, 1, tablet, By Mouth, Daily, # 90 tablet, Refills 3, Tot. Refills 3, Maintenance, 04/29/22 11:56:00 EST, Route to Pharmacy Electronically, [facility], Partial fill upon patient request if [...] tablet, 0 Refills, Maintenance, 07/25/22 17:58:00 EDT, [facility]., Partial fill upon patient request if [...] 1 Refills, Maintenance, 09/03/22 14:02:00 EDT, [facility], 15, APPLY TOPICALLY TO AFFECTED AREA TWO TIMES A DAY,163, cm, 08/14/22 16:50:00 EDT, Height, 83, kg, ... Start Date: 09/03/22 Status: Ordered docusate-senna 50 mg-187 mg oral tablet 2 tablet, By Mouth, 2 times a day, PRN Constipation, # 100 tablet, 11 Refills, Maintenance, 08/14/22 16:57:00 EDT, Tablet, [facility]., Partial fill upon patient request if the prescription is for a schedule II opioid drug., 2 tablet By... Start Date: 08/14/22 Status: Ordered duloxetine 60 mg oral enteric coated capsule 2 capsule = 120 mg, By Mouth, Daily, # 60 capsule, 5 Refills, Maintenance, 05/26/22 17:03:00 EST, Capsule, [facility]., Partial fill upon patient request. NOT INCREASED DOSE. Please cancel all other Duloxetine scripts, 163, cm, 05/19/22... Start Date: 05/26/22 Status: Ordered empagliflozin 10 mg oral tablet 1 tablet = 10 mg, By Mouth, Daily in AM, # 30 tablet, 5 Refills, Maintenance, 02/20/22 12:04:00 EST, Tablet, [facility], Partial fill upon patient request if the prescription is for aschedule II opioid drug., 163, cm, 02/11/22 19:19:0... Start Date: 02/20/22 Status: Ordered ibuprofen 800 mg oral tablet 1, tablet, By Mouth, 3 times a day, PRN, # 90 tablet, Refills 1, Tot. Refills 1, Maintenance, NEEDED FOR PAIN, 07/11/22 15:09:00 EDT, Route to Pharmacy Electronically, [facility], 163, cm, 07/11/22 14:19:00 EDT, Height, 83, kg, 0... Start Date: 07/11/22 Status: Ordered Lantus 100 u/ml subcutaneous solution = 50 units, Subcutaneous Injection, Daily, # 15 mL, 2 Refills, Maintenance, 01/06/22 12:07:00 EDT, Solution, [facility], ;, 163, cm, 01/03/22 11:20:00 EDT, Height, 84, kg, 01/02/22 19:36:00 EDT, Dry Weight Start Date: 01/06/22 Status: Ordered lidocaine 5% topical film 1 patch, Topically, Daily, PRN Pain , Mild, remove after 12 hours, # 13 each, 5 Refills, Maintenance, 04/29/22 11:56:00 EST, Film, [facility], Partial fill upon patient request if theprescription is for a schedule II opioid drug., 1 p... Start Date: 04/29/22 Status: Ordered lisinopril 20 mg oral tablet 20 mg, 1, tablet, By Mouth, Daily, # 90 tablet, Refills 1, Tot. Refills 1, Maintenance, 07/25/22 12:31:00 EDT, Route to Pharmacy Electronically, [facility]., 163, cm, 07/11/22 14:19:00EDT, Height, 83, kg, [...] 30 capsule, 2 Refills, 08/26/22 13:27:00 EDT, [facility], 163, cm, 08/14/22 16:50:00 EDT, Height, 83, kg, 02/11/22 19:19:00 EST, Dry Weight Start Date: 08/26/22 Status: Ordered oxyCODONE 15 mg oral tablet 1 tablet = 15 mg, By Mouth, 3 times a day, on contract at [facility], # 84 tablet, 0 Refills, Maintenance, 08/26/22 13:21:00 EDT, [facility], Partial fill upon patient request if [...] capsule, 0 Refills, Maintenance, 08/26/22 13:22:00 EDT, [facility], 163, cm, 08/14/22 16:50:00 EDT, Height, 83, kg, ... Start Date: 08/26/22 Status: Ordered traZODone 50 mg oral tablet 1/2 TO 1 TABLET, By Mouth, Daily at bedtime, # 30 tablet, Refills 5, Maintenance, 08/29/22 11:31:00EDT, Route to Pharmacy Electronically, [facility], 163, cm, 08/14/22 16:50:00 EDT, Height, 83, kg, 02/11/22 19:19:00 EST, Dry Weight Start Date: 08/29/22 Status: Ordered triamcinolone 55 mcg/inh nasal spray 1 sprays = 55 mcg, Nares, Both, Daily, # 1 each, 5 Refills, Maintenance, 08/14/22 16:59:00 EDT, [facility]., Partial fill upon patient request if the prescription is for a schedule II opioid drug., 1 sprays Nares, Both Daily, 163, cm, 0... 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 [phone] Confirmed Active Syncope and collapse Confirmed Active [...] Team Personnel Name: Sindy Bernal RN Position: [facility] RN Member Role: Primary Care Nurse Name: Graciela Thrasher RN Position: [facility] RN Member Role: Primary Care Nurse Name: Stevie Angel RN Position: [facility] RN Member Role: Primary Care Nurse Name: Richardson QUIROZ, Leonora Pérez Position: [facility] PCO Associate Professional Member Role: PCP Address: Address: [address] [place] [address] [place] [address]- Name: Keily Ortega RN Position: [facility] RN Member Role: Primary Care Nurse Name: Nichole Pichardo RN Position: [facility] RN Member Role: Primary Care Nurse Name: Melvin Whitfield RN Position: [facility] AMB Nurse Member Role: Primary Care Nurse Name: Phuong Berkowitz RN Position: [facility] RN Member Role: Primary Care Nurse Name: Joselyn Rain RN Position: [facility] Hospital Stock Control Clerk Member Role: Primary Care Nurse Care Team Related Persons Name: IRA ROMERO Address: home [address] [place] [address] Name: JHON LARSON Address: home [address] [place] [address] Name: JHON LARSON Address: home [address] [place] [address] Name: GALO CATALAN Name: NANCY CATALAN Address: home [address] [place] [address]
--- OUTSIDE RECORDS SUMMARY | 2023-03-25 08:20 | XMS_ITS | Continuity of Care Document ---
Author Name Unknown Organization [facility] Address [address] [place] [address]- Care Team Providers Care Canvas Goods Supervisor Name Role Phone Richardson QUIROZ, Leonora Pérez Primary Care Physician Encounter [facility] Date(s): 08/28/21 - 09/27/21 [facility] [address], [place] [address] Allergies, Adverse Reactions, Alerts Substance Reaction Severity Status morphine Active gabapentin swelling Active Lyrica dysphagia Active SEROquel body swelling - all over Act tony MetFORMIN Hydrochloride ER black tarry stool Active Immunizations Given and Recorded Vaccine Date Status Refusal Reason SARS-CoV-2 mRNA ([id number]) vax 05/14/21 Given influenza virus vaccine, inactivated [...] 09/09/21 13:08:00 EDT, Route to Pharmacy Electronically, [facility], Partial fill upon patient request if the prescription is for a sched... Start Date: 09/09/21 Status: Ordered Advair Diskus 500 mcg-50 mcg inhalation powder 1, puffs, Inhalation, 2 times a day, [id number], # 1 each, Refills 5, Tot. Refills 5, Maintenance, 05/15/21 9:20:00 EST, Powder, Route to Pharmacy Electronically, [id number], [facility], 162.5, cm, 05/10/21 14:47... [...] 08/30/21 12:06:00 EDT, Route to Pharmacy Electronically, [facility], Partial fill upon patient request if the prescription is for a sche... Start Date: 08/30/21 Status: Ordered cetirizine 10 mg oral tablet 1 tablet = 10 mg, By Mouth, Daily, # 30 tablet, 5 Refills, Maintenance, 08/28/21 9:07:00 EDT, Tablet, [facility], 162, cm, 08/22/21 9:46:00 EDT, Height, 86, kg, 07/23/21 0:58:00 EDT, Dry Weight Start Date: 08/28/21 Status: Ordered cholecalciferol 5000 intl units oral capsule 1 capsule = 125 mcg, By Mouth, Daily, with food, # 100 capsule, 2 Refills, Maintenance, 02/11/21 11:17:00 EST, Capsule, [facility]/pharmacy #[id number], Partial fill upon patient request if [...] 1 Refills, Maintenance, 07/08/21 9:45:00 EDT, [facility] PLEASE CANCEL ESTRADIOL VAGINAL CREAM, 1 [...] tablet, 5 Refills, Maintenance, 08/28/21 9:07:00 EDT,Tablet, [facility], Partial fill upon patient request if the prescription is for a schedule II opioid drug., 162, cm, 08/22/21 9:46:00... Start Date: 08/28/21 Status: Ordered fluticasone 50 mcg/inh nasal spray See Instructions, USE 1 SPRAY IN BOTH NOSTRILS 2 TIMES A DAY, # 16 mL, 1 Refills, 07/08/21 9:44:00 EDT, [facility], 30, USE 1 SPRAY IN BOTH NOSTRILS 2 TIMES A DAY, 162.5, cm, :49:00 EDT, Height, 85.8, kg, 06/04/21 10:03:00 ES... Start Date: 07/08/21 Status: Ordered hydrochlorothiazide 12.5 mg oral tablet 1 tablet = 12.5 mg, By Mouth, Daily, TAKE 1 TABLET BY MOUTH EVERY DAY, # 30 capsule, 2 Refills, Maintenance, 08/28/21 9:07:00 EDT, [facility], 162, cm, 08/22/21 9:46:00 EDT, Height, 86, kg, 07/23/21 0:58:00 EDT, Dry Weight Start Date: 08/28/21 Status: Ordered ibuprofen 800 mg oral tablet 800 mg, 1, tablet, By Mouth, 3 times a day, PRN, # 90 tablet, Refills 1, Tot. Refills 1, Maintenance, Pain , Mild, 09/10/21 14:23:00 EDT, Route to Pharmacy Electronically, [facility],please fill 800mg instead of 600mg, 162, [...] 3 Refills, Maintenance, 06/18/21 21:04:00 EDT, Tablet, [facility], 162.5, cm, 06/17/21 13:04:00 EDT, Height, 85.8, kg, 06/04/21 10:03:00 EST, Dry Weight Start Date: 06/18/21 Status: Ordered Lantus 100 u/ml subcutaneous solution = 50 units, Subcutaneous Injection, Daily, # 15 mL, 5 Refills, Maintenance, 07/08/21 9:38:00 EDT, Solution, [facility], ;, 162.5, cm, 07/08/21 8:49:00 EDT, Height, 85.8, kg, 06/04/21 10:03:00 EST, Dry Weight Start Date: 07/08/21 Status: Ordered lisinopril 20 mg oral tablet 20 mg, 1, tablet, By Mouth, Daily, # 90 tablet, Refills 3, Tot. Refills 3, Maintenance, 08/28/21 9:07:00 EDT, Route to Pharmacy Electronically, [facility], 162, cm, 08/22/21 9:46:00 EDT, Height, [...] Refills, Maintenance, 09/06/21 13:32:00 EDT, ER Tablet, [facility], Partial fill upon patient request if the prescription isfor a schedule II opioid drug. ON contract at [facility],... Start Date: 09/06/21 Stop Date: 10/04/21 Status: Ordered Senna 8.6 mg oral tablet 8.6 mg, 1, tablet, By Mouth, Daily at bedtime, # 100 tablet, Refills 11, Tot. Refills 11, Maintenance, 07/08/21 9:39:00 EDT, Route to Pharmacy Electronically, [facility], 162.5, cm, 07/08/21 8:49:00 EDT, Height, 85.8, kg, 06/04/21 10:0... 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
--- OUTSIDE RECORDS SUMMARY | 2023-03-25 08:20 | XMS_ITS | Continuity of Care Document ---
Author Name Unknown Organization [facility] Address [address] [place] [address]- Care Team Providers Care Manager Investigations Name Role Phone Richardson QUIROZ, Leonora Pérez Primary Care Physician Encounter [facility] Date(s): 07/09/20 - 08/08/20 [facility] [address] [place] [address]- Allergies, Adverse Reactions, Alerts Substance Reaction Severity [...] 14:12:00 EST, Powder, Route to Pharmacy Electronically, [id number], [facility]/pharmacy #[id number], 162.56, cm, 03/27/20 11:36:00... Start Date: 04/05/20 Status: Ordered albuterol 0.083% inhalation solution 3 mL = 2.5 mg, Inhalation, Every 4 hours, PRN for wheezing, # 100 each, 5 Refills, Maintenance, 06/27/19 14:32:00 EDT, Solution, [facility]/pharmacy #[id number], 160, cm, 06/01/19 14:08:00 EST, Height, 88.9, kg, 05/23/19 22:09:00 EST, Dry Weight Start Date: 06/27/19 Status: Ordered amitriptyline 50 mg oral tablet 1 tablet = 50 mg, By Mouth, Daily at bedtime, # 30 tablet, 5 Refills, Maintenance, 12/30/19 18:21:00 EDT, Tablet, [facility]/pharmacy #[id number], 163, cm, 12/26/19 13:58:00 EDT, Height, 80, kg, 10/29/19 0:29:00 EDT, Dry Weight Start Date: 12/30/19 Status: Ordered atorvastatin 20 mg oral tablet 1 tablet = 20 mg, By Mouth, Daily, # 90 tablet, 3 Refills, Maintenance, 04/05/20 14:11:00 EST, Tablet, [facility]/pharmacy #[id number], Partial fill upon patient request if the prescription is for a schedule II opioid drug., 162.56, cm, 03/27/20 11:36:00 EST, Heig... Start Date: 04/05/20 Status: Ordered capsaicin 0.025% topical cream 1 application, Topically, 3 times a day, # 45 Gm, 3 Refills, Maintenance, 11/01/19 15:25:00 EDT, Cream, [facility]/pharmacy #[id number], 1 application Topically 3 times a day, 163, cm, 11/01/19 14:40:00 EDT, Height, 80, kg, 10/29/19 0:29:00 EDT, Dry Weight Start Date: 11/01/19 Status: Ordered cetirizine 10 mg oral tablet 1 tablet = 10 mg, By Mouth, Daily, # 30 tablet, 5 Refills, Maintenance, 06/20/20 13:18:00 EDT, Tablet, [facility]/pharmacy #[id number], 162, cm, 05/24/20 9:01:00 [...] 5 Refills, Maintenance, 03/02/20 11:18:00 EST, Capsule, [facility]/pharmacy #[id number], Partial fill upon patient [...] mL, 11 Refills, Maintenance, 05/07/20 13:24:00 EST,Solution, [facility]/pharmacy #[id number], increased dose 12/26/19, 162, [...] 05/07/20 13:30:00 EST, Route to Pharmacy Electronically, [facility]/pharmacy #[id number], 162, cm, 04/21/20 11:33:00 EST, Height, 80, kg, 04/18/20 9:48:00 EST, Dry Weight Start Date: 05/07/20 Status: Ordered Mapap 325 mg oral tablet 2 tablet = 650 mg, By Mouth, Every 4 hours, PRN for pain, not to exceed 3000 mg/day. instructions in arabic, # 120 tablet, 2 Refills, Maintenance, 11/01/19 15:24:00 EDT, Tablet, [facility]/pharmacy #[id number], 163, cm, 11/01/19 14:40:00 [...] 2 Refills, Maintenance, 04/05/20 14:08:00 EST, Tablet, [facility]/pharmacy #[id number], Partial fill upon patient request if the prescription is for a schedule II opioid drug., 162.56, cm, ... Start Date: 04/05/20 Status: Ordered omeprazole 40 mg oral enteric coated capsule 1 capsule = 40 mg, By Mouth, Daily, # 30 capsule, 3 Refills, Maintenance, 05/24/20 9:40:00 EST, EC Capsule, [facility]/pharmacy #[id number], note dose increase, 162, [...] day, for 28 days, on contract at [facility], # 56 tablet, 0 Refills, Acute 08/27/20 16:11:00 EDT, 07/30/20 16:11:00 EDT, [facility]/pharmacy #[id number], Partial fill upon patient request if the prescription is for a schedule II opi... Start Date: 07/30/20 Stop Date: 08/27/20 Status: Ordered Senna 8.6 mg oral tablet 8.6 mg, 1, tablet, By Mouth, Daily at bedtime, # 100 tablet, Refills 2, Tot. Refills 2, Maintenance, 06/04/20 12:46:00 EST, Route to Pharmacy Electronically, [facility]/pharmacy #[id number], 162, cm, 05/24/20 9:01:00 EST, Height, 80, kg, 04/18/20 9:48:00 EST, Dry... Start Date: 06/04/20 Status: Ordered Soma 350 mg oral tablet 350 mg, 1, tablet, By Mouth, 3 times a day, # 9 tablet, Refills 0, Tot. Refills 0, Maintenance, 05/04/20 15:46:00 EST, Route to Pharmacy Electronically, [facility]/pharmacy #[id number], Partial fill upon patient request if the prescription is for a schedule II opi... Start Date: 05/04/20 Status: Ordered Spiriva Respimat 60 ACT 2.5 mcg/inh inhalation aerosol 2 puffs, Inhalation, Daily, # 1 each, 11 Refills, Maintenance, 04/05/20 14:17:00 EST, [facility]/pharmacy #[id number], Partial fill upon patient request if the prescription is for a schedule II opioid drug., 162.56, cm, 03/27/20 11:36:00 EST, Height, 81.81, kg, 12... Start Date: 04/05/20 Status: Ordered tiZANidine 4 mg oral tablet 4 mg, 1, tablet, By Mouth, Every 8 hours, PRN, # 84 tablet, Refills 1, Tot. Refills 1, Maintenance,Spasm, 05/03/20 11:26:00 EST, Route to Pharmacy Electronically, [facility]/pharmacy #[id number], 162, cm, 04/21/20 11:33:00 [...] [address] Abd 09/18/16 at [facility], pending MRI 3urge and stress Social History Social History Type Response Tobacco Use: Pt states she q uit smoking 1 week ago. Sex
--- OUTSIDE RECORDS SUMMARY | 2023-03-25 08:20 | XMS_ITS | Continuity of Care Document ---
Author Name Unknown Organization [facility] Adult [facility] Address [address] [place] [address]- Care Team Providers Care V Belt Skiver Name Role Phone Richardson QUIROZ, Leonora Pérez Primary Care Physician [facility] Date[facility]): 06/[facility]21 - 07/11/21 [facility] [address], [place] [address] Allergies, Adverse Reactions, Alerts Substance Reaction Severity Status morphine Active gabapentin swelling Active Lyrica dysphagia Active SEROquel body swelling - all over Act tony MetFORMIN Hydrochloride ER black tarry stool Active Immunizations Given and Recorded Vaccine Date Status Refusal Reason SARS-CoV-2 mRNA ([id number]) vax 05/14/21 Given influenza virus vaccine, inactivated [...] 05/31/21 15:43:00 EST, Route to Pharmacy Electronically, [facility] Partial fill upon patient request if the prescription is for a sched... Start Date: 05/31/21 Status: Ordered Advair Diskus 500 mcg-50 mcg inhalation powder 1, puffs, Inhalation, 2 times a day, [id number], # 1 each, Refills 5, Tot. Refills 5, Maintenance, 05/15/21 9:20:00 EST, Powder, Route to Pharmacy Electronically, [id number], [facility]., 162.5, cm, 05/10/21 14:47... Start Date: 05/15/21 Status: Ordered albuterol 0.083% inhalation solution 3 mL = 2.5 mg, Inhalation, Every 4 hours, PRN for wheezing, # 100 each, 2 Refills, Maintenance, 05/15/21 9:30:00 EST, Solution, [facility]., 162.5, cm, 05/10/21 14:47:00 EST, Height, 90.9, kg, 02/02/21 5:59:00 EDT, Dry Weight Start Date: 05/15/21 Status: Ordered amitriptyline 75 mg oral tablet 1 tablet = 75 mg, By Mouth, Daily at bedtime, # 90 tablet, 1 Refills, Maintenance, 05/07/21 10:21:00 EST, Tablet, [facility]., Partial fill upon patient request if the prescription is for a schedule II opioid drug., 162.5, cm, 03/22/21... Start Date: 05/07/21 Status: Ordered atorvastatin 40 mg oral tablet 1 tablet = 40 mg, By Mouth, Daily, # 90 tablet, 3 Refills, Maintenance, 07/08/21 9:47:00 EDT, Tablet, [facility]., Partial fill upon patient request if the prescription is for a schedule II opioid drug., 162.5, cm, 07/08/21 8:49:00 EDT,... Start Date: 07/08/21 Status: Ordered cetirizine 10 mg oral tablet 1 tablet = 10 mg, By Mouth, Daily, # 30 tablet, 5 Refills, Maintenance, 07/08/21 9:44:00 EDT, Tablet, [facility]., 162.5, cm, 07/08/21 8:49:00 EDT, Height, 85.8, kg, 06/04/21 10:03:00 EST, Dry Weight Start Date: 07/08/21 Status: Ordered cholecalciferol 5000 intl units oral capsule 1 capsule = 125 mcg, By Mouth, Daily, with food, # 100 capsule, 2 Refills, Maintenance, 02/11/21 11:17:00 EST, Capsule, [facility]/pharmacy #[id number], Partial fill upon patient request [...] 1 Refills, Maintenance, 07/08/21 9:45:00 EDT, Cream, [facility]., PLEASE CANCEL ESTRADIOL VAGINAL CREAM, 1 application Topically 2 times a day, 162.5, cm, 07/08/21 8:49:00 EDT, Height, 8... Start Date: 07/08/21 Status: Ordered Disposable Bedpad Disposable Bedpad, See Instructions, # 120 each, Refills 11, Tot. Refills 11, Maintenance, 4 per day dx: N32.81, N39.46 duration: lifetime, 07/08/21 9:46:00 EDT, Supply Start Date: 07/08/21 Status: Ordered duloxetine 60 mg oral enteric coated capsule 2 capsule = 120 mg, By Mouth, Daily, # 60 capsule, 5 Refills, Maintenance, 02/18/21 15:09:00 EST, Capsule, [id number], Partial fill upon patient request. NOT INCREASED DOSE, 155, cm, 02/18/2114:54:00 EST, Height, 90.9, kg, 02/02/21 5:59:00 ED... Start Date: 11/15/21 Status: Ordered empagliflozin 10 mg oral tablet 1 tablet = 10 mg, By Mouth, Daily in AM, # 30 tablet, 5 Refills, Maintenance, 07/08/21 9:43:00 EDT,Tablet, [facility], Partial fill upon patient request if the prescription is for a schedule II opioid drug., 162.5, cm, 07/08/21 8:49:0... Start Date: 07/08/21 Status: Ordered fluticasone 50 mcg/inh nasal spray See Instructions, USE 1 SPRAY IN BOTH NOSTRILS 2 TIMES A DAY, # 16 mL, 1 Refills, 07/08/21 9:44:00 EDT, [facility] 30, USE 1 SPRAY IN BOTH NOSTRILS 2 TIMES A DAY, 162.5, cm, :49:00 EDT, Height, 85.8, kg, 06/04/21 10:03:00 ES... Start Date: 07/08/21 Status: Ordered hydrochlorothiazide 12.5 mg oral tablet 1 tablet = 12.5 mg, By Mouth, Daily, TAKE 1 TABLET BY MOUTH EVERY DAY, # 30 capsule, 2 Refills, Maintenance, 05/15/21 9:20:00 EST, [facility], 162.5, cm, 05/10/21 14:47:00 EST, Height, [...] 3 Refills, Maintenance, 06/18/21 21:04:00 EDT, Tablet, [facility], 162.5, cm, 06/17/21 13:04:00 EDT, Height, 85.8, kg, 06/04/21 10:03:00 EST, Dry Weight Start Date: 06/18/21 Status: Ordered Lantus 100 u/ml subcutaneous solution = 50 units, Subcutaneous Injection, Daily, # 15 mL, 5 Refills, Maintenance, 07/08/21 9:38:00 EDT, Solution, [facility] ;, 162.5, cm, 07/08/21 8:49:00 EDT, Height, 85.8, kg, 06/04/21 10:03:00 EST, Dry Weight Start Date: 07/08/21 Status: Ordered lisinopril 20 mg oral tablet 20 mg, 1, tablet, By Mouth, Daily, # 90 tablet, Refills 3, Tot. Refills 3, Maintenance, 04/12/21 13:24:00 EST, Route to Pharmacy Electronically, [facility]/pharmacy #[id number], 162.5, cm, 03/22/21 14:58:00 EST, Height, 90.9, kg, 02/02/21 5:59:00 EDT, Dry Weight Start Date: 04/12/21 Status: Ordered meloxicam 7.5 mg oral tablet 1 tablet = 7.5 mg, By Mouth, Daily, # 30 tablet, 1 Refills, Maintenance, 06/24/21 16:30:00 EDT, Tablet, [facility], Partial fill upon patient request if the prescription is for a schedule II opioid drug., 162.5, cm, 06/24/21 15:35:00 E... Start Date: 06/24/21 Status: Ordered mirtazapine 30 mg oral tablet 1 tablet = 30 mg, By Mouth, Daily at bedtime, Maintenance, 05/24/19 9:12:00 EST, Tablet Start Date: 05/24/19 Status: Ordered omeprazole 40 mg oral enteric coated capsule 1 capsule = 40 mg, By Mouth, Daily, PRN Dyspepsia, # 90 capsule, 0 Refills, Maintenance, 05/09/21 10:45:00 EST, EC Capsule, [facility]., 162.5, cm, 03/22/21 14:58:00 EST, Height, 90.9,kg, 02/02/21 5:59:00 EDT, Dry Weight Start Date: 05/09/21 Status: Ordered oxyCODONE 15 mg oral tablet 1 tablet = 15 mg, By Mouth, 3 times a day, for 28 days, MASSPAT CHECKED PT ON CONTRACT AT [facility], # 84 tablet, 0 Refills, Acute 08/08/21 16:38:00 EDT, 07/11/21 16:38:00 EDT, [facility], 162.5, cm, 07/08/21 8:49:00 EDT, Height... Start Date: 07/11/21 Stop Date: 08/08/21 Status: Ordered prazosin 2 mg oral capsule [...] 07/08/21 9:39:00 EDT, Route to Pharmacy Electronically, [facility], 162.5, cm, 07/08/21 8:49:00 EDT, Height, 85.8, kg, 06/04/21 10:0... Start Date: 07/08/21 Status: Ordered tiZANidine 4 mg oral tablet 4 mg, 1, tablet, By Mouth, Every 8 hours, PRN, # 84 tablet, Refills 1, Tot. Refills 1, Maintenance,Spasm, 06/24/21 19:16:00 EDT, Route to Pharmacy Electronically, [facility], 162.5, cm, 06/24/21 15:35:00 EDT, Height, 85.8, kg, ... Start Date: 06/24/21 Stop Date: 08/19/21 Status: Ordered topiramate 25 mg oral tablet 2 tablet = 50 mg, By Mouth, Daily, For nerve pain and headaches, # 60 tablet, 1 Refills, Maintenance, 07/01/21 15:05:00 EDT, Tablet, [facility] Partial fill upon patient request if the prescription is for a schedule II opioid drug., 1... 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
--- OUTSIDE RECORDS SUMMARY | 2023-03-25 08:20 | XMS_ITS | Continuity of Care Document ---
Author Name Unknown Organization [facility]3] Adult Medicine Address [address] [place] [address]- Care Team Providers Care Property Controller Name Role Phone Richardson QUIROZ, Leonora Pérez Primary Care Physician [phone] Encounter [facility] Date(s): 05/02/20 - 06/01/20 [facility] Adult Medicine [address], [place] [address] Allergies, Adverse Reactions, Alerts Substance Reaction [...] 14:12:00 EST, Powder, Route to Pharmacy Electronically, [id number], [facility]/pharmacy #[id number], 162.56, cm, 03/27/20 11:36:00... Start Date: 04/05/20 Status: Ordered albuterol 0.083% inhalation solution 3 mL = 2.5 mg, Inhalation, Every 4 hours, PRN for wheezing, # 100 each, 5 Refills, Maintenance, 06/27/19 14:32:00 EDT, Solution, [facility]/pharmacy #[id number], 160, cm, 06/01/19 14:08:00 EST, Height, 88.9, kg, 05/23/19 22:09:00 EST, Dry Weight Start Date: 06/27/19 Status: Ordered amitriptyline 50 mg oral tablet 1 tablet = 50 mg, By Mouth, Daily at bedtime, # 30 tablet, 5 Refills, Maintenance, 12/30/19 18:21:00 EDT, Tablet, [facility]/pharmacy #[id number], 163, cm, 12/26/19 13:58:00 EDT, Height, 80, kg, 10/29/19 0:29:00 EDT, Dry Weight Start Date: 12/30/19 Status: Ordered atorvastatin 20 mg oral tablet 1 tablet = 20 mg, By Mouth, Daily, # 90 tablet, 3 Refills, Maintenance, 04/05/20 14:11:00 EST, Tablet, [facility]/pharmacy #[id number], Partial fill upon patient request if the prescription is for a schedule II opioid drug., 162.56, cm, 03/27/20 11:36:00 EST, Heig... Start Date: 04/05/20 Status: Ordered capsaicin 0.025% topical cream 1 application, Topically, 3 times a day, # 45 Gm, 3 Refills, Maintenance, 11/01/19 15:25:00 EDT, Cream, [facility]/pharmacy #[id number], 1 application Topically 3 times a day, 163, cm, 11/01/19 14:40:00 EDT, Height, 80, kg, 10/29/19 0:29:00 EDT, Dry Weight Start Date: 11/01/19 Status: Ordered cetirizine 10 mg oral tablet 1 tablet = 10 mg, By Mouth, Daily, # 30 tablet, 5 Refills, Maintenance, 12/13/19 18:32:00 EDT, Tablet, [facility]/pharmacy #[id number], 163, cm, 12/13/19 15:57:00 EDT, Height, 80, kg, 10/29/19 0:29:00 EDT, Dry Weight Start Date: 12/13/19 Status: Ordered clonazePAM 0.5 mg oral tablet TAKE 1 TABLET BY MOUTH TWICE A DAY NEEDED Start Date: 06/02/19 Status: Ordered clotrimazole 1% topical cream 1 application, Topically, 2 times a day, # 30 Gm, 1 Refills, Maintenance, 02/03/20 13:47:00 EDT, Cream, [id number], 1 application Topically 2 times a day, 163, cm, 12/26/19 13:58:00 EDT, Height, 80, kg, 10/29/19 0:29:00 EDT, Dry Weight Start Date: 02/03/20 Status: Ordered Disposable Bedpad Disposable Bedpad, See [...] mL, 11 Refills, Maintenance, 05/07/20 13:24:00 EST,Solution, [facility]/pharmacy #[id number], increased dose 12/26/19, 162, cm, [...] 05/07/20 13:30:00 EST, Route to Pharmacy Electronically, [facility]/pharmacy #[id number], 162, cm, 04/21/20 11:33:00 EST, Height, 80, kg, 04/18/20 9:48:00 EST, Dry Weight Start Date: 05/07/20 Status: Ordered Mapap 325 mg oral tablet 2 tablet = 650 mg, By Mouth, Every 4 hours, PRN for pain, not to exceed 3000 mg/day. instructions in kiswahili, # 120 tablet, 2 Refills, Maintenance, 11/01/19 15:24:00 EDT, Tablet, [facility]/pharmacy #[id number], 163, cm, 11/01/19 14:40:00 EDT, [...] 2 Refills, Maintenance, 04/05/20 14:08:00 EST, Tablet, [facility]/pharmacy #[id number], Partial fill upon patient request if the prescription is for a schedule II opioid drug., 162.56, cm, ... Start Date: 04/05/20 Status: Ordered omeprazole 40 mg oral enteric coated capsule 1 capsule = 40 mg, By Mouth, Daily, # 30 capsule, 3 Refills, Maintenance, 05/24/20 9:40:00 EST, EC Capsule, [facility]/pharmacy #[id number], note dose increase, 162, cm, 05/24/20 9:01:00 EST, Height, 80, kg, 04/18/20 9:48:00 EST, Dry Weight Start Date: 05/24/20 Status: Ordered Oxycodone = 10 mg, By Mouth, Every 12 hours, PRN Pain , Severe, LBP, 0 Refills, Maintenance, 12/07/19 15:23:00 EDT, Partial fill upon patient request Start Date: 12/07/19 Status: Ordered Senna 8.6 mg oral tablet 8.6 mg, 1, tablet, By Mouth, Daily at bedtime, # 100 tablet, Refills 2, Tot. Refills 2, Maintenance, 06/10/19 16:12:00 EST, Route to Pharmacy Electronically, [facility]/pharmacy #[id number], 160, cm, 06/01/19 14:08:00 EST, Height, 88.9, kg, 05/23/19 22:09:00 EST,... Start Date: 06/10/19 Status: Ordered Soma 350 mg oral tablet 350 mg, 1, tablet, By Mouth, 3 times a day, # 9 tablet, Refills 0, Tot. Refills 0, Maintenance, 05/04/20 15:46:00 EST, Route to Pharmacy Electronically, [facility]/pharmacy #[id number], Partial fill upon [...] 05/03/20 11:26:00 EST, Route to Pharmacy Electronically, [facility]/pharmacy #[id number], 162, cm, 04/21/20 11:33:00 EST, [...] – [place], pending MRI 3urge and stress Social History Social History Type Response Tobacco Use: Pt states she q uit smoking 1 week ago. Sex
--- OUTSIDE RECORDS SUMMARY | 2023-03-25 08:20 | XMS_ITS | Continuity of Care Document ---
Author Name Unknown Organization [facility] Address [address] [place] [address]- Care Team Providers Care Creative Services Designer Name Role Phone Richardson QUIROZ, Leonora Pérez Primary Care Physician Encounter [facility] Date(s): 10/28/19 - 10/29/[address] [address]- [facility] Discharge Disposition: A-D/C Home Attending Physician: Irais Fernandes MD Admitting Physician: Irais Fernandes MD Referring Physician: Not on Staff, Referring [...] 12:48:00 EST, Powder, Route to Pharmacy Electronically, [id number], [facility]/pharmacy #[id number], 158, cm, 04/26/19 9:58:00 EST, H... Start Date: 04/27/19 Status: Ordered albuterol 0.083% inhalation solution 3 mL = 2.5 mg, Inhalation, Every 4 hours, PRN for wheezing, # 100 each, 5 Refills, Maintenance, 06/27/19 14:32:00 EDT, Solution, [facility]/pharmacy #[id number], 160, cm, 06/01/19 14:08:00 EST, [...] tablet, 5 Refills, Maintenance, 10/06/19 7:45:00EDT, Tablet, [facility]/pharmacy #[id number], 160, cm, 09/28/19 8:58:00 EDT, Height, [...] 5 Refills, Maintenance, 04/19/19 15:40:00 EST, Tablet, [facility]/pharmacy #[id number], 158, cm, 04/04/19 15:21:00 EST, [...] 3 Refills, Maintenance, 09/02/19 10:23:00 EDT, Tablet, [facility]/pharmacy #[id number], PLEASE CANCEL LISINOPRIL, 160, cm, 07/22/19 [...] 11/01/19 7:00:00 EDT, 10/27/19 7:30:00 EDT, Tablet, [facility]/... Start Date: 10/27/19 Stop Date: 11/01/19 Status: [...] 5 Refills, Maintenance, 04/28/19 16:05:00 EST, Tablet, [facility]/pharmacy #[id number], 158, cm, 04/28/19 14:51:00 EST, Height, 82, kg, 04/01/19 16:10:00 EST, Dry Weight Start Date: 04/28/19 Status: Ordered Lantus 100 u/ml subcutaneous solution = 13 units, Subcutaneous Injection, Daily, # 10 mL, 11 Refills, Maintenance, 09/05/19 14:10:00 EDT,Solution, [facility]/pharmacy #[id number], 160, cm, 07/22/19 15:08:00 EDT, Height, 86.8, kg, 07/22/19 15:13:00 EDT, Dry Weight Start Date: 09/05/19 Status: Ordered lidocaine 5% topical film 1 patch, Topically, Daily, For chronic radicular back pain, # 30 patch, 5 Refills, Maintenance, 06/27/19 14:37:00 EDT, [facility]/pharmacy #[id number], 1 patch Topically Daily,Instr:For chronic [...] 6 Refills, Maintenance, 09/12/19 14:39:00 EDT, Tablet, [facility]/pharmacy #[id number], 160, cm, 07/22/19 15:08:00 EDT, [...] 2Refills, Maintenance, 10/06/19 7:45:00 EDT, EC Capsule, [facility]/pharmacy #[id number], cancel Ranitidine, 160,cm, 09/28/19 8:58:00 EDT, Height, 86.8, kg, ... Start Date: 10/06/19 Status: Ordered Pen [place], 31 G x 5 mm BD Ultra [...] 05/30/19 18:52:00 EST, Route to Pharmacy Electronically, [facility]/pharmacy #[id number], 160, cm, 05/30/19 18:08:00 EST, Height, 88.9, kg, 05/23/19... Start Date: 05/30/19 Status: Ordered predniSONE 20 mg oral tablet 2 tablet = 40 mg, By Mouth, Daily, for 4 days, To begin taking the morning of 10/28/19, # 8 tablet, 0 Refills, Acute 10/31/19 23:53:00 EDT, 10/27/19 23:53:00 EDT, Tablet, [facility]/pharmacy #[id number], 163, cm, 10/27/19 21:10:00 EDT, Height, [...] 06/10/19 16:12:00 EST, Route to Pharmacy Electronically, [facility]/pharmacy #[id number], 160, cm, 06/01/19 14:08:00 EST, Height, 88.9, kg, 05/23/19 22:09:00 EST,... Start Date: 06/10/19 Status: Ordered Spiriva Respimat 60 ACT 2.5 mcg/inh inhalation aerosol 2 puffs, Inhalation, Daily, # 1 each, 5 Refills, Maintenance, 04/26/19 10:30:00 EST, [facility]/pharmacy #[id number], 158, cm, 04/26/19 9:58:00 EST, Height, 82, kg, 04/01/19 16:10:00 EST, Dry Weight Start Date: 04/26/19 Status: Ordered tiZANidine 4 mg oral tablet 4 mg, 1, tablet, By Mouth, Every 8 hours, # 90 tablet, Refills 1, Tot. Refills 1, Maintenance, 09/02/19 10:12:00 EDT, Route to Pharmacy Electronically, [facility]/pharmacy #[id number], 160, cm, 07/22/19 15:08:00 EDT, [...] [address] Abd 09/18/16 at [facility] [place] 6surgically repaired July 2015 Dr. Sg MENDEZ 7urge and stress Vital Signs Most recent to oldest [Reference Range]: 1 2 Height 163 cm (10/29/19 12:29 AM) Weight 80 kg (10/29/19 12:29 AM) Oxygen Saturation [94-100 %] 94 % (10/29/19 2:51 AM) 93 % *L* (10/29/19 12:29 AM) Pulse Rate [55-90 bpm] 80 bpm (10/29/19 2:51 AM) 94 bpm *H* (10/29/19 12:29 AM) Blood Pressure [90-138/55-84 mm Hg] 120/ 80mm Hg (10/29/19 2:51 AM) 117/68mm Hg (10/29/19 12:29 AM) Respiratory Rate [16-30 br/min] 17 br/mi n (10/29/19: AM) Temperature [96.8-100.4 DegF] 98.4 DegF (10/29/19: AM) Mode of Delivery (Oxygen) Room air (10/29/19 2:51 AM) Room air (10/29/19 12:29 AM) Blood pressure sites Arm, right (10/29/19 12: AM) Temperature Route Temporal (10/29/19 12:29 AM) Dry Weight 80 kg (10/29/19 12:29 AM) Weight Obtained Via Patient/family state d (10/29/19 12:29 AM) Dry Weight Obtained Via Patient/family s tated (10/29/19 12:29 AM) Social History Social History Type Response Tobacco Use: Pt states she q uit smoking 1 week ago. Sex Female
--- OUTSIDE RECORDS SUMMARY | 2023-03-25 08:20 | XMS_ITS | Continuity of Care Document ---
Author Name Unknown Organization [facility] Address [address] [place] [address]- Care Team Providers Care Spool Winder Name Role Phone Richardson QUIROZ, Leonora Pérez Primary Care Physician [facility]): [facility] - 06/30/19 [facility] [address] [place] [id number] [facility] Attending Physician: Not on Staff, Attending MD [...] 12:48:00 EST, Powder, Route to Pharmacy Electronically, [id number], [id number], 158, cm, 04/26/19 9:58:00 EST, [...] Maintenance, 04/19/19 15:40:00 EST, Tablet, [facility]/pharmacy #[id number], 158, cm, 04/04/19 15:21:00 EST, Height, 82, kg, 04/01/19 16:10:00 EST, Dry Weight Start Date: 04/19/19 Status: Ordered clonazePAM 0.5 mg oral tablet TAKE 1 TABLET BY MOUTH TWICE A DAY NEEDED Start Date: 06/02/19 Status: Ordered clotrimazole 1% topical cream 1 application, Topically, 2 times a day, # 30 Gm, 0 Refills, Maintenance, 05/30/19 19:02:00 EST, Cream, [facility]/pharmacy #[id number], 1 application Topically 2 [...] Maintenance, 04/28/19 16:05:00 EST, Tablet, [facility]/pharmacy #[id number], 158, cm, 04/28/19 14:51:00 EST, Height, 82, kg, 04/01/19 16:10:00 EST, Dry Weight Start Date: 04/28/19 Status: Ordered lidocaine 5% topical film 1 patch, Topically, Daily, For chronic radicular back pain, # 30 patch, 5 Refills, Maintenance, 06/27/19 14:37:00 EDT, [facility]/pharmacy #[id number], 1 patch Topically Daily,Instr:For chronic radicular back pain, 160, cm, 06/01/19 14:08:00 EST, Height, 88.9, kg,... Start Date: 06/27/19 Status: Ordered lisinopril 10 mg oral tablet 10 mg, 1, tablet, By Mouth, Daily, # 90 tablet, Refills 3, Tot. Refills 3, Maintenance, 05/08/19 20:27:00 EST, Route to Pharmacy Electronically, [facility]/pharmacy #[id number], to replace 2.5mg dose, 158, [...] not to exceed 3000 mg/day. instructions in french, # 120 tablet, 2 Refills, Maintenance, 05/04/19 9:35:00 EST, Tablet, [facility]/pharmacy #[id number], 158, cm, 04/28/19 14:51:00 EST, Height, 82, kg, 03/07... Start Date: 05/04/19 Status: Ordered metFORMIN 750 [...] pain, for 28 days, on contract at [facility]., # 56 tablet, 0 Refills, Acute 07/08/19 10:04:00 EDT, 06/10/19 10:04:00 EST, [facility]/pharmacy #[id number], Partial fill upon patient request, 160, cm, 06/01/19 14:08:00 EST,... Start Date: 06/10/19 Stop Date: 07/08/19 Status: Ordered prazosin 1 mg oral capsule 1 mg, 1, capsule, By Mouth, Daily at bedtime, for nightmares, # 30 capsule, Refills 0, Tot. Refills0, Maintenance, 05/30/19 18:52:00 EST, Route to Pharmacy Electronically, [facility]/pharmacy #[id number], 160, cm, 05/30/19 18:08:00 EST, Height, 88.9, kg, 05/23/19... Start Date: 05/30/19 Status: Ordered raNITIdine 300 mg oral tablet See Instructions, # 30 tablet, Refills 2 Tot. Refills 2, TAKE 1 TABLET BY MOUTH EVERYDAY AT BEDTIME, [facility]/pharmacy #[id number] Start Date: 01/27/19 Status: Ordered Senexon-S 2 tablet, By Mouth, Daily at bedtime, 0 Refills, Maintenance, 11/25/18 10:10:49 EDT Start Date: 11/25/18 Status: Ordered senna 187 mg oral tablet 1 tablet = 8.6 mg, By Mouth, Daily at bedtime, PRN as needed for constipation, # 100 tablet, 5 Refills, Maintenance, 05/04/19 9:35:00 EST, [facility]/pharmacy #[id number], 158, cm, 04/28/19 14:51:00 EST, Height, 82, kg, 04/01/19 16:10:00 EST, Dry Weight Start Date: 05/04/19 Status: Ordered Senna 8.6 mg oral tablet 8.6 mg, 1, tablet, By Mouth, Daily at bedtime, # 100 tablet, Refills 2, Tot. Refills 2, Maintenance, 06/10/19 16:12:00 EST, Route to Pharmacy Electronically, [facility]/pharmacy #[id number], 160, cm, 06/01/19 14:08:00 EST, Height, 88.9, kg, 05/23/19 22:09:00 EST,... Start Date: 06/10/19 Status: Ordered Spiriva Respimat 60 ACT 2.5 mcg/inh inhalation aerosol 2 puffs, Inhalation, Daily, # 1 each, 5 Refills, Maintenance, 04/26/19 10:30:00 EST, [facility]/pharmacy #[id number], 158, cm, 04/26/19 9:58:00 EST, Height, 82, kg, 04/01/19 16:10:00 EST, Dry Weight Start Date: 04/26/19 Status: Ordered tiZANidine 2 mg oral tablet 2 mg, 1, tablet, By Mouth, 2 times a day, PRN, # 30 tablet, Refills 2, Tot. Refills 2, Maintenance,as needed for muscle spasm, 06/13/19 18:17:00 EDT, Route to Pharmacy Electronically, [facility]/pharmacy #[id number], 160, cm, 06/01/19 14:08:00 EST, Height, 88.9,... Start Date: 06/13/19 Status: Ordered Vitamin D3 5000 intl units [...] MARILIN on CPAP(Confirmed) Active Panic attacks(Confirmed) Active *BHN/CP/SARAHarmony MacodnaldFdocffb-[phone]/[facility], active care coordination(Confirmed) Active Acute meniscal tear of right knee(Confirmed) 6 06/2015 Active Tobacco dependence(Confirmed) Active DM2 (diabetes mellitus, type 2)(Confirmed) 04/03/17 Active Incontinence of urine(Confirmed) 7 Active 1surgically repaired November 2015, Dr. Sg MENDEZ 2DJD Lumbar Spine per MRI 3L3-L4 disc herniation per client report 4seen on MRI 10/2016, rec repeat imaging in October [address] Abd 09/18/16 [place] [facility] [place] 6surgically repaired July 2015 Dr. Sg MENDEZ 7urge and stress Social History Social History Type Response Tobacco Use: Pt states she q uit smoking 1 week ago. Sex Female
[2023-03-25 08:21] VITALS: BP 110/62; PULSE 86; RESP 12; O2SAT 95
--- NOTE | 2023-03-25 08:21 | A.OFFVIS_ITS ---
Intake Vital Signs 03/25/23 08:21 03/25/23 08:58 BP 110/62 130/68 Blood Pressure Location Lt brachial Lt brachial Position Sitting Sitting Respiration 12 12 Pulse 86 82 Pulse Source Pulse Oximeter Pulse Oximeter Pulse Oximetry (%) 95 97 Oxygen Delivery Method Room Air Room Air Intake Visit Reasons: Left Dx SIJ inj Allergies morphine [From MS Contin] Allergy (Verified 03/25/23 08:22) Itching quetiapine [From Seroquel] Allergy (Verified 03/25/23 08:22) Swelling HPI Left Dx SIJ inj HPI Details Patient presents for scheduled procedure. Denies any recent cough, cold, infection, fever or other significant changes in medical history since last office visit. [facility] Medical History (Updated 03/13/23 @ 09:10 by Ayaan Maza MD) Diabetes GERD (gastroesophageal reflux disease) Bipolar 1 disorder Anxiety Depression Numbness Sleep apnea Asthma Elevated cholesterol HTN (hypertension) Surgical History (Updated 12/09/22 @ 16:11 by SYLVIE Wise) History of back surgery Hx of knee surgery Hx of carpal tunnel repair Hx of cholecystectomy Hx of section Social History Are you a primary daycare assistant to a significant other at home: No Do you presently have visiting nurse or other home services: Yes Patient Tobacco Use Status: Current everyday Tobacco user Tobacco use type: Cigarette Cigarettes Per Day: 10 Physical Exam Vital Signs: Last Vital Signs Pulse 82 03/25/23 08:58 Resp 12 03/25/23 08:58 BP 130/68 03/25/23 08:58 Pulse Ox 97 03/25/23 08:58 Oxygen Delivery Method Room Air 03/25/23 08:58 Office Procedures Joint Injection/Drain Joint Injection/Drain Details: Sacroiliac Joint Injection, Left The procedure, its benefits, and its risks were explained and written informed consent was obtained from the patient. Immediately prior to starting the procedure, a time-out safety check was conducted. The patient's identification, procedure name, procedure site, and procedure laterality were confirmed with the patient. ? Patient was placed prone on the fluoroscopy table and the lumbosacral area was prepped using ChloraPrep and draped with sterile drapein standard fashion. The C-arm was rotated in a contralateral oblique fashion until the medial border of the iliac crest no longer foreshadowed the posterior sacroiliac joint line. The skin and subcutaneous tissue was anesthetized using 1 mL of 0.75% plain lidocaine with 1.5-inch 25-gauge needle in the middle region of the joint line.? A 3.5-inch 22-gauge spinal needle with small bend on the tip was slowly advanced towards the joint line, coaxial to the x-ray beam. Once bony content was obtained, the needle was easily slid into the intra-articular space.? Intra- articular needle position was confirmed using lateral fluoroscopy.? A total vol ume of 2.5mL of solution containing 0.5% of ropivacaine was injected intra- articularly. The stylet was reinserted and needle was removed. The patient tolerated the procedure well. Patient denied any lower extremity weakness or numbness. Patient was observed for 30 min and was discharged after fulfilling the standard discharge criteria. Coding 07367 - Sacroiliac Procedure code (CPT) selection complete Assessment & Plan Assessment & Plan (1) Sacroiliac joint dysfunction: Code(s): M53.3 - Sacrococcygeal disorders, not elsewhere classified Plan Patient is status post intra-articular left diagnostic sacroiliac joint injectio n. Patient tolerated procedure well and was discharged home in stable condition with discharge instructions. All questions were answered. We will follow-up via telephone or in clinic to assess response to therapy. A follow-up appointment was made during today's visit. Orders: Orders FL guidance in treatment room Today M53.3 - Sacrococcygeal disorders, not elsewhere classified Coding Level of Care Code Procedure Only Diagnoses Sacroiliac joint dysfunction M53.3 CPT Codes Coding - Joint 9: 85899 - Sacroiliac ([id number])
--- OUTSIDE RECORDS SUMMARY | 2023-03-25 08:21 | XMS_ITS | Continuity of Care Document ---
Author Name Unknown Organization [facility] Address [address] [place] [address]- Care Team Providers Care Construction Specialist Name Role Phone Aaron GERARDO, Pura Mahajan Primary Care Physician [facility]): 12/22/22 - 01/21/23 [facility] [address] [place] [address]- Allergies, Adverse Reactions, Alerts Substance Reaction Severity Status morphine Active gabapentin swelling Active Lyrica dysphagia Active SEROquel body swelling - all over Act tony MetFORMIN Hydrochloride ER black tarry stool Active Immunizations Given and Recorded Vaccine Date Status Refusal Reason [id number] 12y+ bivalent booster vax 01/30/22 Given influenza virus vaccine, inactivated 01/30/22 Give n influenza virus vaccine, inactivated 02/04/21 Give n influenza virus vaccine, inactivated 1 04/19/20 Gi tonio influenza virus vaccine, inactivated 03/12/19 Give n influenza virus vaccine, inactivated 01/19/18 Give n influenza virus vaccine, inactivated 02/16/17 Give n pneumococcal 20-valent conjugate vaccine 12/26/21 Given SARS-CoV-2 mRNA ([id number]) vax 05/14/21 Given SARS-CoV-2 (COVID-19) mRNA BNT-162b2 vac 2 10/19/20 Given SARS-CoV-2 (COVID-19) mRNA BNT-162b2 vac 09/28/20 Given pneumococcal 23-valent vaccine 03/12/19 Given tetanus/diphtheria/pertussis, acel(Tdap) 07/29/13 Given 1Early/Late Reason: Early/Late Reason: Patient Not Available/Off Unit 2? Unknown: Resend to [facility]. Resend to [facility]. Medications acetaminophen 325 mg oral tablet 650 mg, 2, tablet, By Mouth, 3 times a day, # 100 tablet, Refills 5, Tot. Refills 5, Maintenance, 09/25/22 17:00:00 EDT, Route to Pharmacy Electronically, [facility], Partial fill upon patient request if the prescription is for a sched... Start Date: 09/25/22 Status: Ordered Advair Diskus 500 mcg-50 mcg inhalation powder 1, inhalation, Inhalation, 2 times a day, rinse mouth and throat after use, # 60 each, Refills 11, Tot. Refills 11, Maintenance, 09/25/22 17:00:00 EDT, Inhaler, Route to Pharmacy Electronically, [id number], [facility]... Start Date: 09/25/22 Status: Ordered albuterol 0.083% inhalation solution 3 mL = 2.5 mg, Neb, Every 4 hours, PRN Wheezing/Shortness of Breath, # 100 each, 11 Refills, Maintenance, 12/26/22 8:14:00 EDT, Inhalation Solution, [facility], Partial fill upon patient request if the prescription is for a schedule II... Start Date: 12/26/22 Status: Ordered All Day Allergy 10 mg oral tablet 1 tablet, By Mouth, Daily, # 90 tablet, 3 Refills, Maintenance, 11/20/22 16:48:00 EDT, [facility], 163, cm, 11/20/22 16:00:00 EDT, Height, 83, kg, 02/11/22 19:19:00 EST, Dry Weight Start Date: 11/20/22 Status: Ordered amLODIPine 5 mg oral tablet 5 mg, 1, tablet, By Mouth, Daily, # 90 tablet, Refills 3, Tot. Refills 3, Maintenance, 04/29/22 11:56:00 EST, Route to Pharmacy Electronically, [facility], Partial fill upon patient request if the prescription is for a schedule II opio... Start Date: 04/29/22 Status: Ordered atorvastatin 40 mg oral tablet 1 tablet = 40 mg, By Mouth, Daily, # 90 tablet, 3 Refills, Maintenance, 09/25/22 16:58:00 EDT, Tablet, [facility] Partial fill upon patient request if the [...] Gm, 2 Refills, Maintenance, 12/26/22 8:13:00 EDT, [facility]., 15, APPLY TOPICALLY TO AFFECTED AREA TWO TIMES A DAY FOR TWO WEEKS, 163, cm, ... Start Date: 12/26/22 Status: Ordered docusate-senna 50 mg-187 mg oral tablet 2 tablet, By Mouth, 2 times a day, PRN Constipation, # 100 tablet, 11 Refills, Maintenance, 08/14/22 16:57:00 EDT, Tablet, [facility]., Partial fill upon patient request if the [...] 3 Refills, Maintenance, 09/25/22 17:01:00 EDT, Tablet, [facility], Partial fill upon patient request if the prescription is for aschedule II opioid drug., 163, cm, 09/25/22 16:20:0... Start Date: 09/25/22 Status: Ordered ibuprofen 800 mg oral tablet 1, tablet, By Mouth, 3 times a day, PRN, # 90 tablet, Refills 1, Tot. Refills 1, Maintenance, NEEDED FOR PAIN, 10/22/22 15:19:00 EDT, Route to Pharmacy Electronically, [facility], 163, cm, 09/25/22 16:20:00 EDT, Height, 83, kg, 11/0... Start Date: 10/22/22 Status: Ordered Januvia 100 mg oral tablet 1 tablet, By Mouth, Daily, # 30 tablet, 11 Refills, Maintenance, 11/26/22 10:02:00 EDT, [facility], 163, cm, 11/20/22 16:00:00 EDT, Height, 83, kg, 02/11/22 19:19:00 EST, Dry Weight Start Date: 11/26/22 Status: Ordered lidocaine 5% topical film 1 patch, Topically, Daily, PRN Pain , Mild, remove after 12 hours, # 13 each, 5 Refills, Maintenance, 09/25/22 16:59:00 EDT, Film, [facility], Partial fill upon patient request if theprescription is for a schedule II opioid drug., 1 p... Start Date: 09/25/22 Status: Ordered lisinopril 20 mg oral tablet 20 mg, 1, tablet, By Mouth, Daily, # 90 tablet, Refills 3, Tot. Refills 3, Maintenance, 11/20/22 16:48:00 EDT, Route to Pharmacy Electronically, [facility], 163, cm, 11/20/22 16:00:00EDT, Height, 83, kg, 02/11/22 19:19:00 EST, Dry Weight Start Date: 11/20/22 Status: Ordered mirtazapine 30 mg oral tablet 1 tablet = 30 mg, By Mouth, Daily at bedtime, # 90 tablet, 1 Refills, Maintenance, 09/25/22 17:00:00 EDT, Tablet, [facility]., Partial fill upon patient request if the prescription is for a schedule II opioid drug., 163, cm, 09/25/22 16... Start Date: 09/25/22 Status: Ordered omeprazole 40 mg oral enteric coated capsule 1 capsule, By Mouth, Daily, PRN NEEDED, # 90 capsule, 1 Refills, Maintenance, 11/25/22 10:53:00 EDT, [facility], 163, cm, 11/20/22 16:00:00 EDT, Height, 83, kg, 02/11/22 19:19:00 EST, Dry Weight Start Date: 11/25/22 Status: Ordered oxyCODONE 15 mg oral tablet 1 tablet = 15 mg, By Mouth, Every 8 hours, PRN Pain , Severe, # 84 tablet, 0 Refills, Maintenance, 01/21/23 9:27:00 EDT, [facility], Partial fill upon patient request if the prescription is for a schedule II opioid drug., 163, cm, 11/04... Start Date: 01/21/23 Stop Date: 02/18/23 Status: Ordered oxyCODONE 15 mg oral tablet 1 tablet = 15 mg, By Mouth, 3 times a day, through [facility]. Opiate agreement history, 0 Refills, Maintenance, 01/20/23 18:26:00 EDT, Partial fill upon patient request if the prescriptionis for a schedule II opioid drug. Start Date: 01/20/23 Status: Ordered prazosin 2 mg oral capsule via psychiatry A [facility], 0 Refills, Maintenance, 01/19/23 21:19:00 EDT, Partial fill upon patient request if the prescription is for a schedule II opioid drug. Start Date: 01/19/23 Status: Ordered tiZANidine 4 mg oral tablet 1, tablet, By Mouth, 3 times a day, PRN, # 90 tablet, Refills 1, Maintenance, NEEDED FOR SEVERE PAIN, 11/21/22 15:54:00 EDT, Route to Pharmacy Electronically, [facility], 163, cm, 11/20/22 16:00:00 EDT, Height, 83, kg, 02/11/22 19:19:00 E... Start Date: 11/21/22 Status: Ordered traZODone 50 mg oral tablet 1/2 TO 1 TABLET, By Mouth, Daily at bedtime, # 30 tablet, Refills 5, Maintenance, 08/29/22 11:31:00EDT, Route to Pharmacy Electronically, [facility], 163, cm, 08/14/22 16:50:00 EDT, Height, 83, kg, 02/11/22 19:19:00 EST, Dry Weight Start Date: 08/29/22 Status: Ordered triamcinolone 55 mcg/inh nasal spray 1 sprays = 55 mcg, Nares, Both, Daily, # 1 each, 5 Refills, Maintenance, 08/14/22 16:59:00 EDT, [facility], Partial fill upon patient request if the prescription is for a schedule II opioid drug., 1 sprays Nares, Both Daily, 163, cm, 0... Start Date: 08/14/22 Status: Ordered Trulicity Pen 1.5 mg/0.5 mL subcutaneous solution = 1.5 mg, Subcutaneous Infusion, Every week, # 4 each, 11 Refills, Maintenance, 11/20/22 16:49:00 EDT, [facility], Partial fill upon patient request if [...] Confirmed Active Panic attacks Confirmed Active BHN/BHCP Morgue Keeper Charlene Fabian [phone] Confirmed Active Syncope and collapse Confirmed Active Tobacco dependence Confirmed Active DM2 (diabetes mellitus, type 2) Confirmed 04/03/17 Active Incontinence of urine 5 Confirmed Active 1on polysomnogram 2seen on MRI 10/2016, rec repeat imaging in October 2017 pain managemnt team/ Dr Diop indicated they thought pain was fibromyalgia 4seen on CT Abd 09/18/16 at [facility] [place], [place] 5urge and stress Social History Social History Type Response Smoking Status Current every day sm oker; Type: Cigarettes; Tobacco use times per day: 1/2 ppd; entered on: 12/24/17 Sex Patient Care team information Care Team Personnel Name: Sindy Bernal RN Position: [facility] RN Member Role: Primary Care Nurse Name: Graciela Thrasher RN Position: [facility] SN RN Member Role: Primary Care Nurse Name: Stevie Angel RN Position: [facility] RN Member Role: Primary Care Nurse Name: Keily Ortega RN Position: [facility] RN Member Role: Primary Care Nurse Name: Graciela Munroe RN Position: [facility] RN Member Role: Primary Care Nurse Name: Nichole Pichardo RN Position: [facility] RN Member Role: Primary Care Nurse Name: Melvin Whitfield RN Position: [facility] AMB Nurse Member Role: Primary Care Nurse Name: Phuong Berkowitz RN Position: [facility] RN Member Role: Primary Care Nurse Name: Pura Walker MD Position: [facility] Physician - Primary Care Member Role: PCP Address: Address: [address] [place] [address] Name: Joselyn Rain RN Position: [facility] Hospital Community Relations Advisor Member Role: Primary Care Nurse Care Team Related Persons Name: IRA ROMERO Address: home [address] [place] [address] Name: HJON LARSON Address: home [address] [place] [address] Name: JHON LARSON Address: [address] [place] [address] Name: GALO CATALAN Name: NANCY CATALAN Address: home [address] [place] [address]
--- OUTSIDE RECORDS SUMMARY | 2023-03-25 08:21 | XMS_ITS | Continuity of Care Document ---
Author Name Unknown Organization [facility] Address [address] [place] [address]- Care Team Providers Care Director Web Name Role Phone Richardson QUIROZ, Leonora Pérez Primary Care Physician [phone] [facility]19 - 01/29/20 [facility] [address] [place] [address]- [facility] Allergies, Adverse Reactions, Alerts Substance Reaction Severity [...] 12:48:00 EST, Powder, Route to Pharmacy Electronically, [id number], [id number], 158, cm, 04/26/19 9:58:00 EST, [...] 1 Refills, Maintenance, 12/15/19 9:12:00 EDT, Cream, [facility]/pharmacy #[id number], 1 application Topically 2 times a [...] 3 Refills, Maintenance, 01/19/20 10:28:00 EDT, Tablet, [facility]/pharmacy #[id number], 163, cm, 12/26/19 13:58:00 EDT, Height, [...] 5 Refills, Maintenance, 12/30/19 18:21:00 EDT, Tablet, [facility]/pharmacy #[id number], 163, cm, 12/26/19 13:58:00 EDT, Height, 80, kg, 10/29/19 0:29:00 EDT, Dry Weight Start Date: 12/30/19 Status: Ordered Lantus 100 u/ml subcutaneous solution = 35 units, Subcutaneous Injection, Daily, # 10 mL, 11 Refills, Maintenance, 12/26/19 14:22:00 EDT,Solution, [facility]/pharmacy #[id number], increased dose 12/26/19, 163, cm, 12/26/19 13:58:00 EDT, Height, 80, kg, 10/29/19 0:29:00 EDT, Dry Weight Start Date: 12/26/19 Status: Ordered lidocaine 5% topical film 1 patch, Topically, Daily, For chronic radicular back pain, # 30 patch, 5 Refills, Maintenance, 06/27/19 14:37:00 EDT, [facility]/pharmacy #[id number], 1 patch Topically Daily,Instr:For chronic radicular [...] not to exceed 3000 mg/day. instructions in albanian, # 120 tablet, 2 Refills, Maintenance, 11/01/19 15:24:00 EDT, Tablet, [facility]/pharmacy #[id number], 163, cm, 11/01/19 14:40:00 EDT, Height, [...] 2Refills, Maintenance, 10/06/19 7:45:00 EDT, EC Capsule, [facility]/pharmacy #[id number], cancel Ranitidine, 160,cm, 09/28/19 8:58:00 EDT, [...] pain, for 28 days, on contract at [facility]., # 56 tablet, 0 Refills, Acute 02/23/20 17:14:00 EST, 01/26/20 17:14:00 EDT, [facility]/pharmacy #[id number], Partial fill upon patient request, 163, cm, 12/26/19 13:58:00 EDT,... Start Date: 01/26/20 Stop Date: 02/23/20 Status: Ordered Pen [place], 31 G x 5 mm BD Ultra [...] 05/30/19 18:52:00 EST, Route to Pharmacy Electronically, [facility]/pharmacy #[id number], 160, cm, 05/30/19 18:08:00 EST, Height, 88.9, kg, 05/23/19... Start Date: 05/30/19 Status: Ordered Senna 8.6 mg oral tablet 8.6 mg, 1, tablet, By Mouth, Daily at bedtime, # 100 tablet, Refills 2, Tot. Refills 2, Maintenance, 06/10/19 16:12:00 EST, Route to Pharmacy Electronically, [facility]/pharmacy #[id number], 160, cm, 06/01/19 14:08:00 EST, Height, 88.9, kg, 05/23/19 22:09:00 EST,... Start Date: 06/10/19 Status: Ordered Spiriva Respimat 60 ACT 2.5 mcg/inh inhalation aerosol 2 puffs, Inhalation, Daily, # 1 each, 5 Refills, Maintenance, 04/26/19 10:30:00 EST, [facility]/pharmacy #[id number], 158, cm, 04/26/19 9:58:00 EST, Height, 82, kg, 04/01/19 16:10:00 EST, Dry Weight Start Date: 04/26/19 Status: Ordered tiZANidine 4 mg oral tablet 4 mg, 1, tablet, By Mouth, Every 8 hours, # 84 tablet, Refills 1, Tot. Refills 1, Maintenance, 11/24/19 8:16:00 EDT, Route to Pharmacy Electronically, [facility]/pharmacy #[id number], 163, cm, 11/01/19 14:40:00 EDT, Height, [...] [place] [facility] [place] 3urge and stress Social History Social History Type Response Tobacco Use: Pt states she q uit smoking 1 week ago. Sex Female
--- OUTSIDE RECORDS SUMMARY | 2023-03-25 08:21 | XMS_ITS | Continuity of Care Document ---
Author Name Unknown Organization [facility] (Former[facility] Adult Medicine Address [address] [place] [address]- Care Team Providers Care Rotor Plate Washer Name Role Phone Richardson QUIROZ, Leonora Pérez Primary Care Physician [facility]counter [facility] Date(s): 09/04/20 - 10/04/20 [facility] Adult Medicine [address] [place] [address]- Allergies, Adverse Reactions, Alerts Substance Reaction Severity Status gabapentin swelling Active Lyrica dysphagia Active MetFORMIN Hydrochloride ER black tarry stool Active SEROquel body swelling - all over Act tony Immunizations Given and Recorded Vaccine Date Status Refusal Reason SARS-CoV-2 (COVID-19) mRNA BNT-162b2 vac 09/28/20 Given [...] 14:12:00 EST, Powder, Route to Pharmacy Electronically, [id number], [facility]/pharmacy #[id number], 162.56, cm, [...] 1 Refills, Maintenance, 07/30/20 19:49:00 EDT, Cream, [facility]/pharmacy #[id number], 1 application Topically 2 [...] 5 Refills, Maintenance, 03/02/20 11:18:00 EST, Capsule, [facility]/pharmacy #[id number], Partial fill upon patient request. NOT INCREASED DOSE, 163, cm, 12/25/2012:58:00 EDT, Height, 80, kg, 10/29/19 0:29:00 EDT,... Start Date: 03/02/20 Status: Ordered fluticasone 50 mcg/inh nasal spray See Instructions, USE 1 SPRAY IN BOTH NOSTRILS 2 TIMES A DAY, # 16 mL, 1 Refills, Maintenance, [id number], 30, USE 1 SPRAY IN BOTH NOSTRILS [...] 2 Refills, Maintenance, 08/27/20 11:00:00 EDT, Tablet, [facility]/pharmacy #[id number], 163, cm, 08/15/20 14:23:00 EDT, Height, 84.8, kg, 06/25/20 20:28:00 EDT, Dry Weight Start Date: 08/27/20 Status: Ordered Lantus 100 u/ml subcutaneous solution = 40 units, Subcutaneous Injection, Daily, # 12 mL, 11 Refills, Maintenance, 05/07/20 13:24:00 EST,Solution, [facility]/pharmacy #[id number], increased dose 12/26/19, 162, cm, [...] 05/07/20 13:30:00 EST, Route to Pharmacy Electronically, [id number], 162, cm, 04/21/20 11:33:00 EST, Height, [...] 2 Refills, Maintenance, 11/01/19 15:24:00 EDT, Tablet, [facility]/pharmacy #[id number], 163, cm, 11/01/19 14:40:00 [...] 2 Refills, Maintenance, 04/05/20 14:08:00 EST, Tablet, [facility]/pharmacy #[id number], Partial fill upon patient request if the prescription is for a schedule II opioid drug., 162.56, cm, ... Start Date: 04/05/20 Status: Ordered omeprazole 40 mg oral enteric coated capsule 1 capsule = 40 mg, By Mouth, Daily, # 90 capsule, 0 Refills, Maintenance, 08/13/20 10:34:00 EDT, ECCapsule, [facility]/pharmacy #[id number], 163, cm, [...] day, for 28 days, on contract at [facility], # 56 tablet, 0 Refills, Acute 10/25/20 15:14:00 EDT, 06/24/21 15:14:00 EDT, [facility]/pharmacy #[id number], Partial fill [...] 06/04/20 12:46:00 EST, Route to Pharmacy Electronically, [facility]/pharmacy #[id number], 162, cm, 05/24/20 9:01:00 EST, Height, 80, kg, 04/18/20 9:48:00 EST, Dry... Start Date: 06/04/20 Status: Ordered Soma 350 mg oral tablet 350 mg, 1, tablet, By Mouth, 3 times a day, # 9 tablet, Refills 0, Tot. Refills 0, Maintenance, 05/04/20 15:46:00 EST, [facility], [facility] 08/16/20 11:59:00 EDT, [facility], [facility] [...] [address] [place]18[facility] at [facility] [place] pending [place] 3urge and stress Social History Social History Type Response Tobacco Use: Pt states she q uit smoking 1 week ago. Sex
--- OUTSIDE RECORDS SUMMARY | 2023-03-25 08:21 | XMS_ITS | Continuity of Care Document ---
Author Name Unknown Organization [facility] Adult Medicine Address [address] [place] [address]- Care Team Providers Care Pediatric Social Worker Name Role Phone Richardson CONSUMER SAFETY INSPECTOR, Leonora Pérez Primary Care Physician [phone] [place] [facility] [place]22 [place] 11/30/22 [facility] [address] [place] [address]- Allergies, Adverse Reactions, Alerts Substance Reaction Severity Status morphine Active gabapentin swelling Active Lyrica dysphagia Active SEROquel body swelling - all over Act tony MetFORMIN Hydrochloride ER black tarry stool Active Immunizations Given and Recorded Vaccine Date Status Refusal Reason [id number] 12y+ bivalent booster vax 01/30/22 Given influenza virus vaccine, inactivated 01/30/22 Give n influenza virus vaccine, inactivated 02/04/21 Give n influenza virus vaccine, inactivated 1 04/19/20 Gi tonio influenza virus vaccine, inactivated 03/12/19 Give n influenza virus vaccine, inactivated 01/19/18 Give n influenza virus vaccine, inactivated 02/16/17 Give n pneumococcal 20-valent conjugate vaccine 12/26/21 Given SARS-CoV-2 mRNA ([id number]) vax 05/14/21 Given SARS-CoV-2 (COVID-19) mRNA BNT-162b2 [...] 09/25/22 17:00:00 EDT, Route to Pharmacy Electronically, [facility], Partial fill upon patient request if the prescription is for a sched... Start Date: 09/25/22 Status: Ordered Advair Diskus 500 mcg-50 mcg inhalation powder 1, inhalation, Inhalation, 2 times a day, rinse mouth and throat after use, # 60 each, Refills 11, Tot. Refills 11, Maintenance, 09/25/22 17:00:00 EDT, Inhaler, Route to Pharmacy Electronically, [id number], [facility]... Start Date: 09/25/22 Status: Ordered albuterol 0.083% inhalation solution 3 mL = 2.5 mg, 0 Refills, Maintenance, 02/06/22 16:39:00 EDT, Partial fill upon patient request if the prescription is for a schedule II opioid drug. Start Date: 02/06/22 Status: Ordered All Day Allergy 10 mg oral tablet 1 tablet, By Mouth, Daily, # 90 tablet, 3 Refills, Maintenance, 11/20/22 16:48:00 EDT, [facility], 163, cm, 11/20/22 16:00:00 EDT, Height, 83, kg, 02/11/22 19:19:00 EST, Dry Weight Start Date: 11/20/22 Status: Ordered amLODIPine 5 mg oral tablet 5 mg, 1, tablet, By Mouth, Daily, # 90 tablet, Refills 3, Tot. Refills 3, Maintenance, 04/29/22 11:56:00 EST, Route to Pharmacy Electronically, [facility], Partial fill upon patient request if the prescription is for a schedule II opio... Start Date: 04/29/22 Status: Ordered atorvastatin 40 mg oral tablet 1 tablet = 40 mg, By Mouth, Daily, # 90 tablet, 3 Refills, Maintenance, 09/25/22 16:58:00 EDT, Tablet, [facility] Partial fill upon patient [...] tablet, 0 Refills, Maintenance, 07/25/22 17:58:00 EDT, [facility]., Partial fill upon patient request if [...] Gm, 1 Refills, Maintenance, 09/03/22 14:02:00 EDT, [facility], 15, APPLY TOPICALLY TO AFFECTED AREA TWO TIMES A DAY,163, cm, 08/14/22 16:50:00 EDT, Height, 83, kg, 11/... Start Date: 09/03/22 Status: Ordered docusate-senna 50 mg-187 mg oral tablet 2 tablet, By Mouth, 2 times a day, PRN Constipation, # 100 tablet, 11 Refills, Maintenance, 08/14/22 16:57:00 EDT, Tablet, [facility]., Partial fill upon patient request if the prescription is for a schedule II opioid drug., 2 tablet By... Start Date: 08/14/22 Status: Ordered duloxetine 60 mg oral enteric coated capsule 2 capsule = 120 mg, By Mouth, Daily, # 60 capsule, 11 Refills, Maintenance, 11/20/22 16:48:00 EDT, Capsule, [facility]., Partial fill upon patient request. NOT INCREASED DOSE. Please cancel all other Duloxetine scripts, 163, cm, ... Start Date: 11/20/22 Status: Ordered empagliflozin 10 mg oral tablet 1 tablet = 10 mg, By Mouth, Daily in AM, # 90 tablet, 3 Refills, Maintenance, 09/25/22 17:01:00 EDT, Tablet, [facility]., Partial fill upon patient request if [...] 10/22/22 15:19:00 EDT, Route to Pharmacy Electronically, [facility]., 163, cm, 09/25/22 16:20:00 EDT, Height, 83, kg, 11/0... Start Date: 10/22/22 Status: Ordered Januvia 100 mg oral tablet 1 tablet, By Mouth, Daily, # 30 tablet, 11 Refills, Maintenance, 11/26/22 10:02:00 EDT, [facility], 163, cm, 11/20/22 16:00:00 EDT, Height, 83, kg, 02/11/22 19:19:00 EST, Dry Weight Start Date: 11/26/22 Status: Ordered lidocaine 5% topical film 1 patch, Topically, Daily, PRN Pain , Mild, remove after 12 hours, # 13 each, 5 Refills, Maintenance, 09/25/22 16:59:00 EDT, Film, [facility]., Partial fill upon patient request if theprescription is for a schedule II opioid drug., 1 p... Start Date: 09/25/22 Status: Ordered lisinopril 20 mg oral tablet 20 mg, 1, tablet, By Mouth, Daily, # 90 tablet, Refills 3, Tot. Refills 3, Maintenance, 11/20/22 16:48:00 EDT, Route to Pharmacy Electronically, [facility]., 163, cm, 11/20/22 16:00:00EDT, Height, 83, kg, 02/11/22 19:19:00 EST, Dry Weight Start Date: 11/20/22 Status: Ordered mirtazapine 30 mg oral tablet 1 tablet = 30 mg, By Mouth, Daily at bedtime, # 90 tablet, 1 Refills, Maintenance, 09/25/22 17:00:00 EDT, Tablet, [facility]., Partial fill upon patient request if the prescription is for a schedule II opioid drug., 163, cm, 09/25/22 16... Start Date: 09/25/22 Status: Ordered omeprazole 40 mg oral enteric coated capsule 1 capsule, By Mouth, Daily, PRN NEEDED, # 90 capsule, 1 Refills, Maintenance, 11/25/22 10:53:00 EDT, [facility], 163, cm, 11/20/22 16:00:00 EDT, Height, 83, kg, 02/11/22 19:19:00 EST, Dry Weight Start Date: 11/25/22 Status: Ordered oxyCODONE 15 mg oral tablet 1 tablet = 15 mg, By Mouth, 3 times a day, on contract at [facility], # 84 tablet, 0 Refills, Maintenance, 11/21/22 15:54:00 EDT, [facility]., Partial fill upon patient request if [...] 11/21/22 15:54:00 EDT, Route to Pharmacy Electronically, [facility], 163, cm, 11/20/22 16:00:00 EDT, Height, 83, kg, 02/11/22 19:19:00 E... Start Date: 11/21/22 Status: Ordered traZODone 50 mg oral tablet 1/2 TO 1 TABLET, By Mouth, Daily at bedtime, # 30 tablet, Refills 5, Maintenance, 08/29/22 11:31:00EDT, [facility], [facility], 163, cm, 08/14/22 16:50:00 EDT, Height, 83, kg, 02/11/22 19:19:00 EST, Dry Weight Start Date: 08/29/22 Status: Ordered triamcinolone 55 mcg/inh nasal spray 1 sprays = 55 mcg, Nares, Both, Daily, # 1 each, 5 Refills, Maintenance, 08/14/22 16:59:00 EDT, [facility], Partial fill upon patient request if the prescription is for a schedule II opioid drug., 1 sprays Nares, Both Daily, 163, cm, 0... Start Date: 08/14/22 Status: Ordered Trulicity Pen 1.5 mg/0.5 mL subcutaneous solution = 1.5 mg, Subcutaneous Infusion, Every week, # 4 each, 11 Refills, Maintenance, 11/20/22 16:49:00 EDT, [facility], Partial fill upon patient request [...] Confirmed Active Panic attacks Confirmed Active N/CP Lip Cutter And Scorer Charlene Fabian [phone] Confirmed Active Syncope and collapse Confirmed Active [...] Team Personnel Name: Sindy Bernal RN Position: [facility] RN Member Role: Primary Care Nurse Name: Graciela Thrasher RN Position: [facility] SN RN Member Role: Primary Care Nurse Name: Stevie Angel RN Position: [facility] RN Member Role: Primary Care Nurse Name: Leonora Bai NP Position: [facility] PCO Associate Professional Member Role: PCP Address: Address: [address] [place] [address] Name: Keily Ortega RN Position: [facility] RN Member Role: Primary Care Nurse Name: Nichole Pichardo RN Position: [facility] RN Member Role: Primary Care Nurse Name: Melvin Whitfield RN Position: [facility] AMB Nurse Member Role: Primary Care Nurse Name: Phuong Berkowitz RN Position: [facility] RN Member Role: Primary Care Nurse Name: Joselyn Rain RN Position: [facility] Member Role: Primary Care Nurse Care Team Related Persons Name: IRA ROMERO Address: home [address] [place] [address] Name: JHON LARSON Address: home [address] [place] [address] Name: JHON LARSON Address: home [address] [place] [address] Name: GALO CATALAN Name: NANCY CATALAN Address: home [address] [place] [address]
--- OUTSIDE RECORDS SUMMARY | 2023-03-25 08:21 | XMS_ITS | Continuity of Care Document ---
Author Name Unknown Organization [facility] Adult [facility] Address [address] [place] [address]- Care Team Providers Care Digital Camera Technician Name Role Phone Richardson CREDIT CONTROL CLERK, Leonora Pérez Primary Care Physician [phone] Encounter [facility] Date(s): 03/21/21 - 04/20/21 [facility] Adult [facility] [address] [place] [address]- Allergies, Adverse Reactions, Alerts Substance Reaction Severity [...] 01/16/21 19:30:00 EDT, Route to Pharmacy Electronically, [id number], Partial fill upon patient request if the prescription is for a schedule II o... Start Date: 01/16/21 Status: Ordered Advair Diskus 500 mcg-50 mcg inhalation powder 1, puffs, Inhalation, 2 times a day, j45.909, # 1 each, Refills 11, Tot. Refills 11, Maintenance, 04/05/20 14:12:00 EST, Powder, Route to Pharmacy Electronically, [id number], [facility]/pharmacy #[id number], 162.56, cm, 03/27/20 11:36:00... Start Date: 04/05/20 Status: Ordered albuterol 0.083% inhalation solution 3 mL = 2.5 mg, Inhalation, Every 4 hours, PRN for wheezing, # 100 each, 2 Refills, Maintenance, 08/15/20 10:22:00 EDT, Solution, [facility]/pharmacy #[id number], 163, cm, 08/09/20 8:45:00 EDT, Height, 84.8, kg, 06/25/20 20:28:00 EDT, Dry Weight Start Date: 08/15/20 Status: Ordered amitriptyline 50 mg oral tablet See Instructions, 1.5 tablets by Mouth Daily at bedtime, # 45 each, 1 Refills, 03/21/21 16:11:00 EST, [facility]/pharmacy #[id number], 162.5, cm, 03/14/21 10:31:00 EST, Height, 90.9, kg, 02/02/21 5:59:00 EDT, DryWeight Start Date: 03/21/21 Status: Ordered atorvastatin 20 mg oral tablet 3 tablet = 60 mg, By Mouth, Daily, # 90 tablet, 3 Refills, Maintenance, 04/05/20 14:11:00 EST, Tablet, [facility]/pharmacy #[id number], Partial fill upon patient request if the prescription is for a schedule II opioid drug., 162.56, cm, 03/27/20 11:36:00 EST, Heig... Start Date: 04/05/20 Status: Ordered capsaicin 0.025% topical cream 1 application, Topically, 3 times a day, # 45 Gm, 3 Refills, Maintenance, 11/01/19 15:25:00 EDT, Cream, [facility]/pharmacy #[id number], 1 application Topically 3 times a day, 163, cm, 11/01/19 14:40:00 EDT, Height, 80, kg, 10/29/19 0:29:00 EDT, Dry Weight Start Date: 11/01/19 Status: Ordered cetirizine 10 mg oral tablet 1 tablet = 10 mg, By Mouth, Daily, # 30 tablet, 5 Refills, Maintenance, 06/20/20 13:18:00 EDT, Tablet, [facility]/pharmacy #[id number], 162, cm, 05/24/20 9:01:00 EST, Height, 80, kg, 04/18/20 9:48:00 EST, Dry Weight Start Date: 06/20/20 Status: Ordered cholecalciferol 5000 intl units oral capsule 1 capsule = 125 mcg, By Mouth, Daily, with food, # 100 capsule, 2 Refills, Maintenance, 02/11/21 11:17:00 EST, Capsule, [facility]/pharmacy #[id number], Partial fill upon patient [...] 1 Refills, Maintenance, 12/05/20 12:42:00 EDT, Cream, [facility]/pharmacy #[id number], 1 application Topically 2 [...] 5 Refills, Maintenance, 02/18/21 15:09:00 EST, Capsule, [facility]/pharmacy #[id number], Partial fill upon patient [...] 16 mL, 1 Refills, Maintenance, [id number], 30, USE 1 SPRAY IN BOTH NOSTRILS [...] 2 Refills, Maintenance, 03/01/21 12:42:00 EST, Tablet, [facility]/pharmacy #[id number], 155, cm, 02/18/21 14:54:00 EST, Height, 90.9, kg, 02/02/21 5:59:00 EDT, DryWeight Start Date: 03/01/21 Status: Ordered Lantus 100 u/ml subcutaneous solution = 40 units, Subcutaneous Injection, Daily, # 12 mL, 2 Refills, Maintenance, 03/01/21 12:42:00 EST, Solution, [facility]/pharmacy #[id number], increased dose 12/26/19, 155, cm, 02/18/21 14:54:00 EST, Height, 90.9, kg, 02/02/21 5:59:00 EDT, Dry Weight Start Date: 03/01/21 Status: Ordered lidocaine 5% topical film 1 patch, Topically, Daily, For chronic radicular back pain, # 30 patch, 5 Refills, Maintenance, 10/11/20 8:15:00 EDT, [facility]/pharmacy #[id number], 1 patch Topically Daily,Instr:For chronic radicular back pain, 163, cm, 08/15/20 14:23:00 EDT, Height, 84.8, kg,... Start Date: 10/11/20 Status: Ordered lisinopril 20 mg oral tablet 20 mg, 1, tablet, By Mouth, Daily, # 90 tablet, Refills 3, Tot. Refills 3, Maintenance, 04/12/21 13:24:00 EST, Route to Pharmacy Electronically, [facility]/pharmacy #[id number], 162.5, cm, 03/22/21 14:58:00 [...] 0 Refills, Maintenance, 08/15/20 15:59:00 EDT, Capsule, [facility]/pharmacy #[id number], Partial fill upon patient request if the prescription is for a schedule II opioid drug., 163, cm, 08/15/20 14:23:00 EDT, Aj Start Date: 08/15/20 Status: Ordered mirabegron 25 mg oral tablet, extended release 1 tablet = 25 mg, By Mouth, Daily, do not crush or chew, # 30 tablet, 11 Refills, Maintenance, 12/31/20 15:58:00 EDT, ER Tablet, [id number], Partial fill upon patient [...] 1 Refills, Maintenance, 01/31/21 14:16:00 EDT, Tablet, [facility], Partial fill upon patient request if [...] days, # 56 tablet, 0 Refills, Acute 05/17/21 16:23:00 EST, 04/19/21 16:23:00 EST, [id number], Client on contract at [facility],, 162.5, cm, 03/22/21 14:58:00 EST, Height, 90.9, kg, 02/02/21 5:59:00 E... Start Date: 04/19/21 Stop Date: 05/17/21 Status: Ordered prazosin 2 mg oral capsule [...] 10/30/20 11:37:00 EDT, Route to Pharmacy Electronically, [facility]/pharmacy #[id number], 163, cm, 08/15/20 14:23:00 EDT, Height, 84.8, kg, 06/25/20 20:28:00 EDT... Start Date: 10/30/20 Status: Ordered Spiriva Respimat 60 ACT 2.5 mcg/inh inhalation aerosol 2 puffs, Inhalation, Daily, # 1 each, 11 Refills, Maintenance, 04/05/20 14:17:00 EST, [facility]/pharmacy #[id number], Partial fill upon patient [...] 12/05/20 12:45:00 EDT, Route to Pharmacy Electronically, [facility]/pharmacy #[id number], 165, cm, 11/22/20 8:40:00 EDT, Height, 84.8, kg, 06/25/20 20:28:00... Start Date: 12/05/20 Stop Date: 01/30/21 Status: Ordered Trulicity Pen 0.75 mg/0.5 mL subcutaneous solution 0.5 mL = 0.75 mg, Subcutaneous Injection, Every week, rotate injection sites, # 2 mL, 5 Refills, Maintenance, 10/31/20 15:27:00 EDT, Solution, [id number], Partial fill upon patient request ifthe [...] on CPAP(Confirmed) Active Panic attacks(Confirmed) Active BHN/BHCP Piling Setter Jb Fabian [phone](Confirmed) Active Syncope and collapse(Confirmed) Active Tobacco dependence(Confirmed) [...]
--- OUTSIDE RECORDS SUMMARY | 2023-03-25 08:21 | XMS_ITS | Continuity of Care Document ---
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 Start Date: 04/05/20 Status: Ordered albuterol 0.083% inhalation solution 3 mL = 2.5 mg, Inhalation, Every 4 hours, PRN for wheezing, # 100 each, 5 Refills, Maintenance, 06/27/19 14:32:00 EDT, Solution, [facility]/pharmacy #[id number], 160, cm, 06/01/19 [...] EST, Heig... Start Date: 04/05/20 Status: Ordered Bactrim DS 800 mg-160 mg oral tablet 1 tablet, By Mouth, 2 times a day, for 14 days, # 28 tablet, 0 Refills, Acute 07/10/20 5:36:00 EDT,06/26/20 5:36:00 EDT, Tablet, [facility]/pharmacy #[id number], Partial fill upon patient request if the prescription is for a schedule II opioid drug., 1 tablet By... Start Date: 06/26/20 Stop Date: 07/10/20 Status: Ordered capsaicin 0.025% topical cream 1 [...] EST, Supply Start Date: 05/31/20 Status: Ordered doxycycline hyclate 100 mg oral capsule 1 capsule = 100 mg, By Mouth, 2 times a day, for 10 days, # 20 capsule, 0 Refills, Acute 06/29/20 14:14:00 EDT, 06/19/20 14:14:00 EDT, Capsule, [id number], Partial fill upon patient request if the prescription is for a schedule II opioid drug.... Start Date: 06/19/20 Stop Date: 06/29/20 Status: Ordered duloxetine 60 mg oral enteric [...] 3 Refills, Maintenance, 01/19/20 10:28:00 EDT, Tablet, [facility]/pharmacy #[id number], 163, cm, 12/26/19 [...] 05/07/20 13:30:00 EST, Route to Pharmacy Electronically, [facility]/pharmacy #[id number], 162, cm, 04/21/20 11:33:00 EST, Height, 80, kg, 04/18/20 9:48:00 EST, Dry Weight Start Date: 05/07/20 Status: Ordered Mapap 325 mg oral tablet 2 tablet = 650 mg, By Mouth, Every 4 hours, PRN for pain, not to exceed 3000 mg/day. instructions in upper sorbian, # 120 tablet, 2 Refills, Maintenance, 11/01/19 15:24:00 EDT, Tablet, [facility]/pharmacy #[id number], 163, cm, 11/01/19 [...] 2 Refills, Maintenance, 04/05/20 14:08:00 EST, Tablet, [facility]/pharmacy #[id number], Partial fill upon patient request if the prescription is for a schedule II opioid drug., 162.56, cm, ... Start Date: 04/05/20 Status: Ordered omeprazole 40 mg oral enteric coated capsule 1 capsule = 40 mg, By Mouth, Daily, # 30 capsule, 3 Refills, Maintenance, 05/24/20 9:40:00 EST, EC Capsule, [facility]/pharmacy #[id number], note dose increase, 162, cm, [...] Acute 07/02/20 12:45:00 EDT, 06/04/20 12:45:00 EST, [facility]/pharmacy #[id number], Partial fill upon patient request if the prescription is for a schedule II opioid drug. Client on c... Start Date: 06/04/20 Stop Date: 07/02/20 Status: Ordered Senna 8.6 mg oral tablet 8.6 mg, 1, tablet, By Mouth, Daily at bedtime, # 100 tablet, Refills 2, Tot. Refills 2, Maintenance, 06/04/20 12:46:00 EST, Route to Pharmacy Electronically, [facility]/pharmacy #[id number], 162, cm, 05/24/20 9:01:00 EST, Height, 80, kg, 04/18/20 9:48:00 EST, Dry... Start Date: 06/04/20 Status: Ordered Soma 350 mg oral tablet 350 mg, 1, tablet, By Mouth, 3 times a day, # 9 tablet, Refills 0, Tot. Refills 0, Maintenance, 05/04/20 15:46:00 EST, Route to Pharmacy Electronically, [facility]/pharmacy #[id number], Partial fill upon patient request if the prescription is for a schedule II opi... Start Date: 05/04/20 Status: Ordered Spiriva Respimat 60 ACT 2.5 mcg/inh inhalation aerosol 2 puffs, Inhalation, Daily, # 1 each, 11 Refills, Maintenance, 04/05/20 14:17:00 EST, [facility]/pharmacy #[id number], Partial fill upon [...] 05/03/20 11:26:00 EST, Route to Pharmacy Electronically, [facility]/pharmacy #[id number], 162, cm, 04/21/20 [...] [address] Abd 09/18/16 at [facility], pending MRI 3urge and stress Vital Signs Most recent to oldest [Reference Range]: 1 2 3 Oxygen Saturation [94-100 %] 97 % (06/27/20 9:19 PM) 99 % (06/27/20 7:44 PM) 100 % (06/27/20 5:20 PM) Pulse Rate [55-90 bpm] 68 bpm (06/27/20 9:19 PM) 66 bpm (06/27/20 7:44 PM) 70 bpm (06/27/20 5:20 PM) Blood Pressure [90-138/55-84 mm Hg] 111/85mm Hg (06/27/20 9:19 PM) 112/67mm Hg (06/27/20 7:44 PM) 100/59mm Hg (06/27/20 5:20 PM) Respiratory Rate [16-30 br/min] 17 br/min (06/27/20 9:19 PM) 17 br/min (06/27/20 7:44 PM) 17 br/min (06/27/20 5:20 PM) Temperature [96.8-100.4 DegF] 98.3 DegF (06/27/20 5:20 PM) 98.4 DegF (06/27/20 2:20 PM) Mode of Delivery (Oxygen) Room air (06/27/20 9:19 PM) Room air (06/27/20 7:44 PM) Room air (06/27/20 5:20 PM) Blood pressure sites Arm, left (06/27/20 9:19 PM) Arm, left (06/27/20 7:44 PM) Arm, left (06/27/20 5:20 PM) Temperature Route Oral (06/27/20 5:20 PM) Oral (06/27/20 2:20 PM) Social History Social History Type Response Tobacco Use: Pt states she q uit smoking 1 week ago. Sex
--- OUTSIDE RECORDS SUMMARY | 2023-03-25 08:21 | XMS_ITS | Continuity of Care Document ---
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 Start Date: 04/27/19 Status: Ordered albuterol 0.083% inhalation solution 3 mL = 2.5 mg, Inhalation, Every 4 hours, PRN for wheezing, # 100 each, 5 Refills, Maintenance, 06/27/19 14:32:00 EDT, Solution, [facility]/pharmacy #[id number], 160, cm, 06/01/19 14:08:00 EST, [...] 5 Refills, Maintenance, 12/30/19 18:21:00 EDT, Tablet, [facility]/pharmacy #[id number], 163, cm, 12/26/19 13:58:00 EDT, Height, [...] 3 Refills, Maintenance, 11/01/19 15:25:00 EDT, Cream, [facility]/pharmacy #[id number], 1 application Topically 3 times a [...] 5 Refills, Maintenance, 12/30/19 18:21:00 EDT, Tablet, [facility]/pharmacy #[id number], 163, cm, 12/26/19 13:58:00 EDT, Height, 80, kg, 10/29/19 0:29:00 EDT, Dry Weight Start Date: 12/30/19 Status: Ordered Lantus 100 u/ml subcutaneous solution = 35 units, Subcutaneous Injection, Daily, # 10 mL, 11 Refills, Maintenance, 12/26/19 14:22:00 EDT,Solution, [facility]/pharmacy #[id number], increased dose 12/26/19, 163, cm, 12/26/19 13:58:00 EDT, Height, 80, kg, 10/29/19 0:29:00 EDT, Dry Weight Start Date: 12/26/19 Status: Ordered lidocaine 5% topical film 1 patch, Topically, Daily, For chronic radicular back pain, # 30 patch, 5 Refills, Maintenance, 03/09/20 8:53:00 EST, [facility]/pharmacy #[id number], 1 patch Topically Daily,Instr:For chronic [...] belarusian, # 120 tablet, 2 Refills, Maintenance, 11/01/19 15:24:00 EDT, Tablet, [facility]/pharmacy #[id number], 163, cm, 11/01/19 14:40:00 EDT, Height, [...] 2Refills, Maintenance, 10/06/19 7:45:00 EDT, EC Capsule, [facility]/pharmacy #[id number], cancel Ranitidine, 160,cm, 09/28/19 8:58:00 EDT, [...] days, # 56 tablet, 0 Refills, Acute 04/05/20 8:22:00 EST, 03/08/20 8:22:00 EST, [facility]/pharmacy #[id number], Partial fill upon patient request if the prescription is for a schedule II opioid drug. Client on con... Start Date: 03/08/20 Stop Date: 04/05/20 Status: Ordered Pen [place], 31 G x 5 mm BD Ultra Fine III See Instructions, # 100 each, Refills 11, Tot. Refills 11, Maintenance, Dx: Dm2, once daily injections, 09/05/19 14:11:00 EDT, Supply, 160, cm, 07/22/19 15:08:00 EDT, Height, 86.8, kg, 07/22/19 15:13:00 EDT, Dry Weight Start Date: 09/05/19 Status: Ordered Senna 8.6 mg oral tablet 8.6 mg, 1, tablet, By Mouth, Daily at bedtime, # 100 tablet, Refills 2, Tot. Refills 2, Maintenance, 06/10/19 16:12:00 EST, Route to Pharmacy Electronically, [facility]/pharmacy #[id number], 160, cm, 06/01/19 14:08:00 EST, Height, 88.9, kg, 05/23/19 22:09:00 EST,... Start Date: 06/10/19 Status: Ordered Spiriva Respimat 60 ACT 2.5 mcg/inh inhalation aerosol 2 puffs, Inhalation, Daily, # 1 each, 5 Refills, Maintenance, 04/26/19 10:30:00 EST, [facility]/pharmacy #[id number], 158, cm, 04/26/19 9:58:00 EST, Height, 82, kg, 04/01/19 16:10:00 EST, Dry Weight Start Date: 04/26/19 Status: Ordered tiZANidine 4 mg oral tablet 4 mg, 1, tablet, By Mouth, Every 8 hours, # 84 tablet, Refills 1, Tot. Refills 1, Maintenance, 02/03/20 13:47:00 EDT, Route to Pharmacy Electronically, [facility]/pharmacy #[id number], 163, cm, 12/26/19 13:58:00 EDT, Height, 80, kg, 10/29/19 0:29:00 EDT, Dry Weight Start Date: 02/03/20 Stop Date: 03/30/20 Status: [...] [address] Abd 09/18/16 at [facility], pending MRI 3urge and stress Diagnosis Diagnosis Type Effective Dates Health Status Cl inical Service Informant INA (stress urinary incontinence, female) Discharge Diagnosis 02/11/19 Social History Social History Type Response Tobacco Use: Pt states she q uit smoking 1 week ago. Sex Female
--- OUTSIDE RECORDS SUMMARY | 2023-03-25 08:21 | XMS_ITS | Continuity of Care Document ---
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 Name Role Phone Richardson QUIROZ, Leonora Pérez Primary Care Physician Encounter [facility] Date(s): 06/17/21 - 06/24/21 [facility] [address] [place] [address] Drive [address] [place] [address]- Attending Physician: Santana Hernandez MD Allergies, Adverse Reactions, Alerts Substance Reaction Severity Status morphine Active gabapentin swelling Active Lyrica dysphagia Active SEROquel body swelling - all over Act tony MetFORMIN Hydrochloride ER black tarry stool Active Immunizations Given and Recorded Vaccine Date Status Refusal Reason SARS-CoV-2 mRNA ([id number]) vax 05/14/21 Given influenza virus vaccine, inactivated [...] 05/31/21 15:43:00 EST, Route to Pharmacy Electronically, [facility], Partial fill upon patient request if the prescription is for a sched... Start Date: 05/31/21 Status: Ordered Advair Diskus 500 mcg-50 mcg inhalation powder 1, puffs, Inhalation, 2 times a day, [id number], # 1 each, Refills 5, Tot. Refills 5, Maintenance, 05/15/21 9:20:00 EST, Powder, Route to Pharmacy Electronically, [id number], [facility], 162.5, cm, 05/10/21 14:47... Start Date: 05/15/21 Status: Ordered albuterol 0.083% inhalation solution 3 mL = 2.5 mg, Inhalation, Every 4 hours, PRN for wheezing, # 100 each, 2 Refills, Maintenance, 05/15/21 9:30:00 EST, Solution, [facility], 162.5, cm, 05/10/21 14:47:00 EST, Height, 90.9, kg, 02/02/21 5:59:00 EDT, Dry Weight Start Date: 05/15/21 Status: Ordered amitriptyline 75 mg oral tablet 1 tablet = 75 mg, By Mouth, Daily at bedtime, # 90 tablet, 1 Refills, Maintenance, 05/07/21 10:21:00 EST, Tablet, [facility], Partial fill upon patient request if the prescription is for a schedule II opioid drug., 162.5, cm, 03/22/21... Start Date: 05/07/21 Status: Ordered atorvastatin 20 mg oral tablet 3 tablet = 60 mg, By Mouth, Daily, # 90 tablet, 3 Refills, Maintenance, 04/05/20 14:11:00 EST, Tablet, [facility]/pharmacy #[id number], Partial fill upon patient request if the prescription is for a schedule II opioid drug., 162.56, cm, 03/27/20 11:36:00 EST, Heig... Start Date: 04/05/20 Status: Ordered capsaicin 0.025% topical cream 1 application, Topically, 3 times a day, # 45 Gm, 3 Refills, Maintenance, 11/01/19 15:25:00 EDT, Cream, [facility]/pharmacy #[id number], 1 application Topically 3 times a day, 163, cm, 11/01/19 14:40:00 EDT, Height, 80, kg, 10/29/19 0:29:00 EDT, Dry Weight Start Date: 11/01/19 Status: Ordered cetirizine 10 mg oral tablet 1 tablet = 10 mg, By Mouth, Daily, # 30 tablet, 5 Refills, Maintenance, 06/20/20 13:18:00 EDT, Tablet, [facility]/pharmacy #[id number], 162, cm, 05/24/20 9:01:00 EST, Height, [...] Refills, Maintenance, 12/05/20 12:42:00 EDT, Cream, [facility]/pharmacy #[id number], 1 application Topically 2 times a [...] 5 Refills, Maintenance, 02/18/21 15:09:00 EST, Capsule, [facility]/pharmacy #[id number], Partial fill upon patient request. NOT [...] DAY, # 16 mL, 1 Refills, Maintenance, [facility] STORE [id number], 30, USE 1 SPRAY IN BOTH NOSTRILS 2 TIMES A DAY, 163, cm, 08/15/20 14:23:00 EDT, Height,84.8, kg, 06/25/20 20:28:00 EDT, Dry Weight Start Date: 09/07/20 Status: Ordered hydrochlorothiazide 12.5 mg oral tablet 1 tablet = 12.5 mg, By Mouth, Daily, TAKE 1 TABLET BY MOUTH EVERY DAY, # 30 capsule, 2 Refills, Maintenance, 05/15/21 9:20:00 EST, [facility], 162.5, cm, 05/10/21 14:47:00 EST, Height, 90.9, kg, 02/02/21 5:59:00 EDT, Dry Weight Start Date: 05/15/21 Status: Ordered ibuprofen 800 mg oral tablet 800 mg, 1, tablet, By Mouth, 3 times a day, PRN, for 14 days, Do not take with Nabumetone, # 42 tablet, Refills 1, Tot. Refills 1, Acute 07/03/21 15:55:00 EDT, Pain , Moderate, 06/05/21 15:55:00 EST,Route to Pharmacy Electronically, [facility]... Start Date: 06/05/21 Stop Date: 07/03/21 [...] 3 Refills, Maintenance, 06/18/21 21:04:00 EDT, Tablet, [facility] 162.5, cm, 06/17/21 13:04:00 EDT, Height, 85.8, kg, 06/04/21 10:03:00 EST, Dry Weight Start Date: 06/18/21 Status: Ordered Lantus 100 u/ml subcutaneous solution = 40 units, Subcutaneous Injection, Daily, # 12 mL, 2 Refills, Maintenance, 03/01/21 12:42:00 EST, Solution, [facility]/pharmacy #[id number], increased dose 12/26/19, 155, cm, 02/18/21 14:54:00 EST, Height, 90.9, kg, 02/02/21 5:59:00 EDT, Dry Weight Start Date: 03/01/21 Status: Ordered lidocaine 5% topical film 1 patch, Topically, Daily, For chronic radicular back pain, # 30 patch, 5 Refills, Maintenance, 10/11/20 8:15:00 EDT, [facility]/pharmacy #[id number], 1 patch Topically Daily,Instr:For chronic radicular back pain, 163, cm, 08/15/20 14:23:00 EDT, Height, 84.8, kg,... Start Date: 10/11/20 Status: Ordered lisinopril 20 mg oral tablet 20 mg, 1, tablet, By Mouth, Daily, # 90 tablet, Refills 3, Tot. Refills 3, Maintenance, 04/12/21 13:24:00 EST, Route to Pharmacy Electronically, [facility]/pharmacy #[id number], 162.5, cm, 03/22/21 14:58:00 EST, Height, 90.9, kg, 02/02/21 5:59:00 EDT, Dry Weight Start Date: 04/12/21 Status: Ordered loratadine 10 mg oral capsule 1 capsule = 10 mg, By Mouth, Daily, # 40 capsule, 0 Refills, Maintenance, 08/15/20 15:59:00 EDT, Capsule, [facility]/pharmacy #[id number], Partial fill upon patient request if the prescription is for a schedule II opioid drug., 163, cm, 08/15/20 14:23:00 EDT, Heig... Start Date: 08/15/20 Status: Ordered meloxicam 7.5 mg oral tablet 1 tablet = 7.5 mg, By Mouth, Daily, # 30 tablet, 1 Refills, Maintenance, 06/24/21 16:30:00 EDT, Tablet, [facility], Partial fill upon patient request if the prescription is for a schedule II opioid drug., 162.5, cm, 06/24/21 15:35:00 E... Start Date: 06/24/21 Status: Ordered mirabegron 25 mg oral tablet, extended release 1 tablet = 25 mg, By Mouth, Daily, do not crush or chew, # 30 tablet, 11 Refills, Maintenance, 12/31/20 15:58:00 EDT, ER Tablet, [facility]/pharmacy #[id number], Partial fill upon [...] Refills, Maintenance, 05/09/21 10:45:00 EST, EC Capsule, [facility]., 162.5, cm, 03/22/21 14:58:00 EST, Height, 90.9,kg, 02/02/21 5:59:00 EDT, Dry Weight Start Date: 05/09/21 Status: Ordered oxyCODONE 15 mg oral tablet 1 tablet = 15 mg, By Mouth, 3 times a day, for 28 days, [facility] CHECKED PT ON CONTRACT AT [facility], # 84 tablet, 0 Refills, Acute 07/11/21 16:22:00 EDT, 06/13/21 16:22:00 EST, [facility]., 162.5, cm, 06/06/21 9:12:00 EST, Height... [...] 10/30/20 11:37:00 EDT, Route to Pharmacy Electronically, [facility]/pharmacy #[id number], 163, cm, 08/15/20 14:23:00 EDT, Height, [...] 06/24/21 19:16:00 EDT, Route to Pharmacy Electronically, [facility]., 162.5, cm, 06/24/21 15:35:00 EDT, Height, 85.8, kg, ... Start Date: 06/24/21 Stop Date: 08/19/21 Status: Ordered Trulicity Pen 1.5 mg/0.5 mL subcutaneous solution 0.5 mL = 1.5 mg, Subcutaneous Injection, Every week, # 2.5 mL, 11 Refills, Maintenance, 04/30/21 12:00:00 EST, Solution, 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
--- OUTSIDE RECORDS SUMMARY | 2023-03-25 08:21 | XMS_ITS | Continuity of Care Document ---
Author Name Unknown Organization [facility] Address [address] [place] [address]- Care Team Providers Care Hydrotherapist Name Role Phone Richardson STOCK PARTS FABRICATOR, Leonora Pérez Primary Care Physician Encounter [facility] Date(s): 05/13/22 - 08/03/22 [facility] [address] [place] [address]- Attending Physician: Not on Staff, Attending MD Admitting Physician: Rashmi Garrett MD Allergies, Adverse Reactions, Alerts Substance Reaction Severity Status morphine Active gabapentin swelling Active MetFORMIN Hydrochloride ER black tarry stool Active Lyrica dysphagia Active SEROquel body swelling - all over Act tony Immunizations Given and Recorded Vaccine Date Status Refusal Reason [id number] 12y+ bivalent booster vax 01/30/22 Given influenza virus vaccine, inactivated 01/30/22 Give n influenza virus vaccine, inactivated 02/04/21 Give n influenza virus vaccine, inactivated 1 04/19/20 Gi tonio influenza virus vaccine, inactivated 03/12/19 Give n influenza virus vaccine, inactivated 01/19/18 Give n influenza virus vaccine, inactivated 02/16/17 Give n pneumococcal 20-valent conjugate vaccine 12/26/21 Given SARS-CoV-2 mRNA ([id number]-syuv-[id number]) vax 05/14/21 Given SARS-CoV-2 (COVID-19) mRNA BNT-162b2 [...] 10/22/21 9:23:00 EDT, Route to Pharmacy Electronically, [facility], Partial fill uponpatient request if [...] tablet, 1 Refills, Maintenance, 07/25/22 12:30:00 EDT, [facility], 163, cm, 07/11/22 14:19:00 EDT, Height, 83, kg, 02/11/22 19:19:00 EST, Dry Weight Start Date: 07/25/22 Status: Ordered amLODIPine 5 mg oral tablet 5 mg, 1, tablet, By Mouth, Daily, # 90 tablet, Refills 3, Tot. Refills 3, Maintenance, 04/29/22 11:56:00 EST, Route to Pharmacy Electronically, [facility], Partial fill upon patient request if the prescription is for a schedule II opio... Start Date: 04/29/22 Status: Ordered cholecalciferol 5000 intl units oral capsule 1 capsule = 125 mcg, By Mouth, Daily, with food, # 100 capsule, 2 Refills, Maintenance, 02/11/21 11:17:00 EST, Capsule, [facility]/pharmacy #[id number], Partial fill upon patient request if the prescription is for a schedule II opioid drug., 155, cm, 02/11/21 8:53... Start Date: 02/11/21 Status: Ordered clonazePAM 0.5 mg oral tablet 1 tablet = 0.5 mg, By Mouth, 2 times a day, # 60 tablet, 0 Refills, Maintenance, 07/25/22 17:58:00 EDT, [facility] Partial fill upon patient [...] 11 Refills, Maintenance, 02/21/22 10:35:00 EST, Tablet, [facility] Partial fill upon patient request if the prescription is for a schedule II opioid drug., 2 tablet By... Start Date: 02/21/22 Status: Ordered duloxetine 60 mg oral enteric coated capsule 2 capsule = 120 mg, By Mouth, Daily, # 60 capsule, 5 Refills, Maintenance, 05/26/22 17:03:00 EST, Capsule, [facility] Partial fill upon patient request. NOT INCREASED DOSE. Please cancel all other Duloxetine scripts, 163, eugenia, 05/19/22... Start Date: 05/26/22 Status: Ordered empagliflozin 10 mg oral tablet 1 tablet = 10 mg, By Mouth, Daily in AM, # 30 tablet, 5 Refills, Maintenance, 02/20/22 12:04:00 EST, Tablet, [facility] Partial fill upon patient request if the prescription is for aschedule II opioid drug., 163, cm, 02/11/22 19:19:0... Start Date: 02/20/22 Status: Ordered fluticasone 50 mcg/inh nasal spray See Instructions, USE 1 SPRAY IN BOTH NOSTRILS 2 TIMES A DAY, # 16 mL, 1 Refills, 07/08/21 9:44:00 EDT, [facility] 30, USE 1 SPRAY IN BOTH NOSTRILS 2 TIMES A DAY, 162.5, cm, 228:49:00 EDT, Height, 85.8, kg, 06/04/21 10:03:00 ES... Start Date: 07/08/21 Status: Ordered ibuprofen 800 mg oral tablet 1, tablet, By Mouth, 3 times a day, PRN, # 90 tablet, Refills 1, Tot. Refills 1, Maintenance, NEEDED FOR PAIN, 07/11/22 15:09:00 EDT, Route to Pharmacy Electronically, [facility], 163, cm, 07/11/22 14:19:00 EDT, Height, 83, kg, 11/0... Start Date: 07/11/22 Status: Ordered Januvia 100 mg oral tablet 1 tablet = 100 mg, By Mouth, Daily, # 90 tablet, 3 Refills, Maintenance, 06/18/21 21:04:00 EDT, Tablet, [facility], 162.5, cm, 06/17/21 13:04:00 EDT, Height, 85.8, kg, 06/04/21 10:03:00 EST, Dry Weight Start Date: 06/18/21 Status: Ordered Lantus 100 u/ml subcutaneous solution = 50 units, Subcutaneous Injection, Daily, # 15 mL, 2 Refills, Maintenance, 01/06/22 12:07:00 EDT, Solution, [facility], ;, 163, cm, 01/03/22 11:20:00 EDT, Height, 84, kg, 01/02/22 19:36:00 EDT, Dry Weight Start Date: 01/06/22 Status: Ordered lidocaine 5% topical film 1 patch, Topically, Daily, PRN Pain , Mild, remove after 12 hours, # 13 each, 5 Refills, Maintenance, 04/29/22 11:56:00 EST, Film, [facility]., Partial fill upon patient request if theprescription is for a schedule II opioid drug., 1 p... Start Date: 04/29/22 Status: Ordered lisinopril 20 mg oral tablet 20 mg, 1, tablet, By Mouth, Daily, # 90 tablet, Refills 1, Tot. Refills 1, Maintenance, 07/25/22 12:31:00 EDT, Route to Pharmacy Electronically, [facility], 163, cm, 07/11/22 14:19:00EDT, Height, 83, kg, 02/11/22 19:19:00 EST, Dry Weight Start Date: 07/25/22 Status: Ordered mirtazapine 30 mg oral tablet 1 tablet = 30 mg, By Mouth, Daily at bedtime, Maintenance, 05/24/19 9:12:00 EST, Tablet Start Date: 05/24/19 Status: Ordered omeprazole 40 mg oral enteric coated capsule 1 capsule, By Mouth, Daily, PRN NEEDED, # 30 capsule, 2 Refills, [facility], 162, cm, 09/06/21 13:04:00 EDT, Height, 86, kg, 07/23/21 0:58:00 EDT, Dry Weight Start Date: 10/02/21 Status: Ordered oxyCODONE 15 mg oral tablet 1 tablet = 15 mg, By Mouth, 3 times a day, on contract at [facility], # 84 tablet, 0 Refills, Maintenance, 07/22/22 9:08:00 EDT, [facility], Partial fill upon patient request [...] 9:39:00 EDT, Route to Pharmacy Electronically, [facility], 162.5, cm, 07/08/21 8:49:00 EDT, Height, 85.8, kg, 06/04/21 10:0... Start Date: 07/08/21 Status: Ordered tiZANidine 4 mg oral capsule See Instructions, PRN Pain , Severe, take as little as possible to control pain not to exceed 3 doses/day, # 60 capsule, 0 Refills, Maintenance, 07/25/22 17:17:00 EDT, [facility]., 163, cm, 07/11/22 14:19:00 EDT, Height, 83, kg, ... Start Date: 07/25/22 Status: Ordered traZODone 50 mg oral tablet See Instructions, 1/2- 1 tablet By Mouth Daily at bedtime, # 30 each, Refills 1, Tot. Refills 1, Maintenance, 06/30/22 14:07:00 EDT, Instructions Replace Required Details, Route to Pharmacy Electronically, [facility], Partial fill upon... Start Date: 06/30/22 Status: Ordered Trulicity Pen 1.5 mg/0.5 mL subcutaneous solution = 1.5 mg, Subcutaneous Infusion, Every week, # 4 each, 5 Refills, Maintenance, 07/25/22 18:12:00 EDT, [facility], Partial fill upon patient request if the prescription is for a schedule II opioid drug., 163, cm, 07/11/22 14:19:00 EDT,... Start Date: 07/25/22 Status: Ordered Trulicity Pen 3 mg/0.5 mL subcutaneous solution See Instructions, INJECT 0.5 ML SUBCUTANEOUSLY EVERY WEEK. ROTATE INJECTION SITES, # 2 mL, 5 Refills, Maintenance, 02/05/22 19:58:00 EDT, [facility], 163, cm, 02/05/22 11:00:00 EDT, Height,84, [...] Confirmed Active Panic attacks Confirmed Active N/CP Dev Manager Charlene Fabian [phone] Confirmed Active Syncope and collapse Confirmed Active Tobacco dependence Confirmed Active DM2 (diabetes mellitus, type 2) Confirmed 04/03/17 Active Incontinence of urine 3 Confirmed Active 1seen on MRI 10/2016, rec repeat imaging in October [address] Abd 09/18/16 at [facility], pending MRI 3urge and stress Social History Social History Type Response Smoking Status Current every day sm oker; Type: Cigarettes; Tobacco use times per day: 1/2 ppd; entered on: 12/24/17 Sex Patient Care team information Care Team Personnel Name: Sindy Bernal RN Position: [facility] RN Member Role: Primary Care Nurse Name: Graciela Thrasher RN Position: [facility] RN Member Role: Primary Care Nurse Name: Stevie Angel RN Position: [facility] RN Member Role: Primary Care Nurse Name: Leonora Bai [facility] Associate Professional Member Role: PCP Address: Address: [address] [place] [address] Name: Keily Ortega RN Position: [facility] RN Member Role: Primary Care Nurse Name: Graciela Munroe RN Position: [facility] RN Member Role: Primary Care Nurse Name: Nichole Pichardo RN Position: [facility] RN Member Role: Primary Care Nurse Name: Melvin Whitfield RN Position: [facility] PCO RN Member Role: Primary Care Nurse Name: Phuong Berkowitz RN Position: [facility] RN Member Role: Primary Care Nurse Name: Joselyn Rain RN Position: [facility] Floor Nurse Member Role: Primary Care Nurse Care Team Related Persons Name: ROMERO IRA Address: home [address] [place] [address] Name: JHON LARSON Address: home [address] [place], [place] Name: JHON LARSON Address: home [address], [place] Name: GALO CATALAN Name: NANCY CATALAN Address: home [address] [place] [address]
--- OUTSIDE RECORDS SUMMARY | 2023-03-25 08:21 | XMS_ITS | Continuity of Care Document ---
Author Name Unknown Organization [facility] Address [address] [place] [address]- Care Team Providers Care Ct Scan Technician Name Role Phone Richardson QUIROZ, Leonora Pérez Primary Care Physician Encounter [facility] Date(s): 08/27/21 - 09/26/21 [facility] [address] [place] [address]- Allergies, Adverse Reactions, Alerts Substance Reaction Severity Status morphine Active gabapentin swelling Active Lyrica dysphagia Active SEROquel body swelling - all over Act tony MetFORMIN Hydrochloride ER black tarry stool Active Immunizations Given and Recorded Vaccine Date Status Refusal Reason SARS-CoV-2 mRNA ([id number]) vax 05/14/21 Given influenza virus vaccine, inactivated [...] 09/09/21 13:08:00 EDT, Route to Pharmacy Electronically, [facility], Partial fill upon patient request if the prescription is for a sched... Start Date: 09/09/21 Status: Ordered Advair Diskus 500 mcg-50 mcg inhalation powder 1, puffs, Inhalation, 2 times a day, [id number], # 1 each, Refills 5, Tot. Refills 5, Maintenance, 05/15/21 9:20:00 EST, Powder, Route to Pharmacy Electronically, [id number], [facility], 162.5, cm, 05/10/21 14:47... Start Date: 05/15/21 Status: Ordered albuterol 0.083% inhalation solution 3 mL = 2.5 mg, Inhalation, Every 4 hours, PRN for wheezing, # 100 each, 2 Refills, Maintenance, 05/15/21 9:30:00 EST, Solution, [facility], 162.5, cm, 05/10/21 14:47:00 EST, Height, 90.9, kg, 02/02/21 5:59:00 EDT, Dry Weight Start Date: 05/15/21 Status: Ordered amitriptyline 25 mg oral tablet 25 mg, 1, tablet, By Mouth, Daily at bedtime, # 30 tablet, Refills 2, Tot. Refills 2, Maintenance, 08/30/21 12:06:00 EDT, Route to Pharmacy Electronically, [facility], Partial fill upon patient request if the prescription is for a sche... Start Date: 08/30/21 Status: Ordered cetirizine 10 mg oral tablet 1 tablet = 10 mg, By Mouth, Daily, # 30 tablet, 5 Refills, Maintenance, 08/28/21 9:07:00 EDT, Tablet, [facility], 162, cm, 08/22/21 9:46:00 EDT, Height, 86, kg, 07/23/21 0:58:00 EDT, Dry Weight Start Date: 08/28/21 Status: Ordered cholecalciferol 5000 intl units oral capsule 1 capsule = 125 mcg, By Mouth, Daily, with food, # 100 capsule, 2 Refills, Maintenance, 02/11/21 11:17:00 EST, Capsule, [facility]/pharmacy #[id number], Partial fill upon patient [...] 1 Refills, Maintenance, 07/08/21 9:45:00 EDT, [facility] PLEASE CANCEL ESTRADIOL VAGINAL CREAM, 1 [...] tablet, 5 Refills, Maintenance, 08/28/21 9:07:00 EDT,Tablet, [facility], Partial fill upon patient request if the prescription is for a schedule II opioid drug., 162, cm, 08/22/21 9:46:00... Start Date: 08/28/21 Status: Ordered fluticasone 50 mcg/inh nasal spray See Instructions, USE 1 SPRAY IN BOTH NOSTRILS 2 TIMES A DAY, # 16 mL, 1 Refills, 07/08/21 9:44:00 EDT, [facility], 30, USE 1 SPRAY IN BOTH NOSTRILS 2 TIMES A DAY, 162.5, cm, :49:00 EDT, Height, 85.8, kg, 06/04/21 10:03:00 ES... Start Date: 07/08/21 Status: Ordered hydrochlorothiazide 12.5 mg oral tablet 1 tablet = 12.5 mg, By Mouth, Daily, TAKE 1 TABLET BY MOUTH EVERY DAY, # 30 capsule, 2 Refills, Maintenance, 08/28/21 9:07:00 EDT, [facility], 162, cm, 08/22/21 9:46:00 EDT, Height, 86, kg, 07/23/21 0:58:00 EDT, Dry Weight Start Date: 08/28/21 Status: Ordered ibuprofen 800 mg oral tablet 800 mg, 1, tablet, By Mouth, 3 times a day, PRN, # 90 tablet, Refills 1, Tot. Refills 1, Maintenance, Pain , Mild, 09/10/21 14:23:00 EDT, Route to Pharmacy Electronically, [facility],please fill 800mg instead of 600mg, 162, cm, [...] 3 Refills, Maintenance, 06/18/21 21:04:00 EDT, Tablet, [facility], 162.5, cm, 06/17/21 13:04:00 EDT, Height, 85.8, kg, 06/04/21 10:03:00 EST, Dry Weight Start Date: 06/18/21 Status: Ordered Lantus 100 u/ml subcutaneous solution = 50 units, Subcutaneous Injection, Daily, # 15 mL, 5 Refills, Maintenance, 07/08/21 9:38:00 EDT, Solution, [facility], ;, 162.5, cm, 07/08/21 8:49:00 EDT, Height, 85.8, kg, 06/04/21 10:03:00 EST, Dry Weight Start Date: 07/08/21 Status: Ordered lisinopril 20 mg oral tablet 20 mg, 1, tablet, By Mouth, Daily, # 90 tablet, Refills 3, Tot. Refills 3, Maintenance, 08/28/21 9:07:00 EDT, Route to Pharmacy Electronically, [facility], 162, cm, 08/22/21 9:46:00 EDT, Height, 86, [...] Refills, Maintenance, 05/09/21 10:45:00 EST, EC Capsule, [facility], 162.5, cm, 03/22/21 14:58:00 EST, Height, 90.9,kg, 02/02/21 5:59:00 EDT, Dry Weight Start Date: 05/09/21 Status: Ordered OxyCONTIN 30 mg oral tablet, extended release 1 tablet = 30 mg, By Mouth, Every 12 hours, # 56 tablet, 0 Refills, Maintenance, 09/06/21 13:32:00 EDT, ER Tablet, [facility], Partial fill upon patient request if the prescription isfor a schedule II opioid drug. ON contract at [facility],... Start Date: 09/06/21 Stop Date: 10/04/21 Status: Ordered Senna 8.6 mg oral tablet 8.6 mg, 1, tablet, By Mouth, Daily at bedtime, # 100 tablet, Refills 11, Tot. Refills 11, Maintenance, 07/08/21 9:39:00 EDT, Route to Pharmacy Electronically, [facility], 162.5, cm, 07/08/21 8:49:00 EDT, Height, 85.8, kg, 06/04/21 10:0... Start Date: 07/08/21 Status: Ordered Trulicity Pen 3 mg/0.5 mL subcutaneous solution 0.5 mL = 3 mg, Subcutaneous Injection, Every week, rotate injection sites, # 2 mL, 5 Refills, Maintenance, 09/03/21 15:49:00 EDT, Solution, [facility], Partial fill upon patient request if [...] on CPAP(Confirmed) Active Panic attacks(Confirmed) Active BHN/BHCP Wood Last Maker Jb Fabian [phone](Confirmed) Active Syncope and collapse(Confirmed) Active Tobacco dependence(Confirmed) [...]
--- OUTSIDE RECORDS SUMMARY | 2023-03-25 08:21 | XMS_ITS | Continuity of Care Document ---
Author Name Unknown Organization [facility] Address [address] [place] [address]- Care Team Providers Care Category Manager Name Role Phone Richardson QUIROZ, Leonora Pérez Primary Care Physician [phone] Encounter [facility] Date(s): 02/11/22 - 03/13/22 [facility] [address] [place] [address]- Attending Physician: Clarence Reynaga Admitting Physician: Clarence Reynaga Referring Physician: AdmClarence brown Allergies, Adverse Reactions, Alerts Substance Reaction Severity Status morphine Active gabapentin swelling Active Lyrica dysphagia Active MetFORMIN Hydrochloride ER black tarry stool Active SEROquel body swelling - all over Act tony Immunizations Given and Recorded Vaccine Date Status Refusal Reason [id number] 12y+ bivalent booster vax 01/30/22 Given influenza virus vaccine, inactivated 01/30/22 Give n influenza virus vaccine, inactivated 02/04/21 Give n influenza virus vaccine, inactivated 1 04/19/20 Gi tonio influenza virus vaccine, inactivated 03/12/19 Give n influenza virus vaccine, inactivated 01/19/18 Give n influenza virus vaccine, inactivated 02/16/17 Give n pneumococcal 20-valent conjugate vaccine 12/26/21 Given SARS-CoV-2 mRNA (rpatvuo-[id number]) vax 05/14/21 Given SARS-CoV-2 (COVID-19) mRNA BNT-162b2 [...] 10/22/21 9:23:00 EDT, Route to Pharmacy Electronically, [facility], Partial fill uponpatient request if the [...] 08/30/21 12:06:00 EDT, Route to Pharmacy Electronically, [facility], Partial fill upon patient request if the prescription is for a sche... Start Date: 08/30/21 Status: Ordered amLODIPine 5 mg oral tablet 5 mg, 1, tablet, By Mouth, Daily, # 90 tablet, Refills 0, Tot. Refills 0, Maintenance, 01/30/22 10:50:00 EDT, Route to Pharmacy Electronically, [facility], Partial fill upon patient request if the prescription is for a schedule II opio... Start Date: 01/30/22 Status: Ordered cetirizine 10 mg oral tablet 1 tablet = 10 mg, By Mouth, Daily, # 30 tablet, 5 Refills, Maintenance, 08/28/21 9:07:00 EDT, Tablet, [facility], 162, cm, 08/22/21 9:46:00 EDT, Height, 86, kg, 07/23/21 0:58:00 EDT, Dry Weight Start Date: 08/28/21 Status: Ordered cholecalciferol 5000 intl units oral capsule 1 capsule = 125 mcg, By Mouth, Daily, with food, # 100 capsule, 2 Refills, Maintenance, 02/11/21 11:17:00 EST, Capsule, [facility]/pharmacy #[id number], Partial fill upon [...] 11 Refills, Maintenance, 02/21/22 10:35:00 EST, Tablet, [facility] Partial fill upon patient request if the prescription is for a schedule II opioid drug., 2 tablet By... Start Date: 02/21/22 Status: Ordered duloxetine 60 mg oral enteric coated capsule 2 capsule = 120 mg, By Mouth, Daily, # 60 capsule, 5 Refills, Maintenance, 11/14/21 11:41:00 EDT, Capsule, [facility] Partial fill upon patient request. NOT INCREASED DOSE. Please cancel all other Duloxetine scripts, 162, cm, 11/14/21... Start Date: 11/14/21 Status: Ordered empagliflozin 10 mg oral tablet 1 tablet = 10 mg, By Mouth, Daily in AM, # 30 tablet, 5 Refills, Maintenance, 02/20/22 12:04:00 EST, Tablet, [facility] Partial fill upon patient request if the prescription is for aschedule II opioid drug., 163, cm, 02/11/22 19:19:0... Start Date: 02/20/22 Status: Ordered fluticasone 50 mcg/inh nasal spray See Instructions, USE 1 SPRAY IN BOTH NOSTRILS 2 TIMES A DAY, # 16 mL, 1 Refills, 07/08/21 9:44:00 EDT, [facility] 30, USE 1 SPRAY IN BOTH NOSTRILS 2 TIMES A DAY, 162.5, cm, :49:00 EDT, Height, 85.8, kg, 06/04/21 10:03:00 ES... Start Date: 07/08/21 Status: Ordered ibuprofen 800 mg oral tablet 1, tablet, By Mouth, 3 times a day, PRN, # 90 tablet, Refills 1, Maintenance, NEEDED FOR PAIN, 03/05/22 15:56:00 EST, Route to Pharmacy Electronically, [facility], 163, cm, 02/11/22 19:19:00 EST, Height, 83, kg, 02/11/22 19:19:00 EST, Dry... Start Date: 03/05/22 Status: Ordered Januvia 100 mg oral tablet 1 tablet = 100 mg, By Mouth, Daily, # 90 tablet, 3 Refills, Maintenance, 06/18/21 21:04:00 EDT, Tablet, [facility]., 162.5, cm, 06/17/21 13:04:00 EDT, Height, 85.8, kg, 06/04/21 10:03:00 EST, Dry Weight Start Date: 06/18/21 Status: Ordered Lantus 100 u/ml subcutaneous solution = 50 units, Subcutaneous Injection, Daily, # 15 mL, 2 Refills, Maintenance, 01/06/22 12:07:00 EDT, Solution, [facility]., ;, 163, cm, 01/03/22 11:20:00 EDT, Height, 84, kg, 01/02/22 19:36:00 EDT, Dry Weight Start Date: 01/06/22 Status: Ordered lidocaine 5% topical film 1 patch, Topically, Daily, PRN Pain , Mild, remove after 12 hours, # 13 each, 5 Refills, Maintenance, 12/26/21 10:37:00 EDT, Film, [facility]., Partial fill upon patient request if theprescription is for a schedule II opioid drug., 1 p... Start Date: 12/26/21 Status: Ordered lisinopril 20 mg oral tablet 20 mg, 1, tablet, By Mouth, Daily, # 90 tablet, Refills 3, Tot. Refills 3, Maintenance, 08/28/21 9:07:00 EDT, Route to Pharmacy Electronically, [facility], 162, cm, 08/22/21 9:46:00 EDT, Height, 86, kg, 07/23/21 0:58:00 EDT, Dry Weight Start Date: 08/28/21 Status: Ordered Melatonin 10 mg oral tablet 1 tablet = 10 mg, By Mouth, Daily at bedtime, # 30 each, 5 Refills, Maintenance, 11/14/21 11:42:00 EDT, [facility], Partial fill upon patient request if [...] PRN NEEDED, # 30 capsule, 2 Refills, [facility], 162, cm, 09/06/21 13:04:00 EDT, Height, 86, kg, 07/23/21 0:58:00 EDT, Dry Weight Start Date: 10/02/21 Status: Ordered oxyCODONE 15 mg oral tablet 1 tablet = 15 mg, By Mouth, 3 times a day, for 28 days, On contract at [facility]., # 84 tablet, 0 Refills, Acute 03/26/22 15:15:00 EST, 02/26/22 15:15:00 EST, [facility], Partial fill uponpatient request if the prescription is for a schedu... Start Date: 02/26/22 Stop Date: 03/26/22 Status: Ordered prazosin 2 mg oral capsule 0 Refills, Maintenance, 02/06/22 16:42:00 EDT, Partial fill upon patient request if the prescription is for a schedule II opioid drug. Start Date: 02/06/22 Status: Ordered Senna 8.6 mg oral tablet 8.6 mg, 1, tablet, By Mouth, Daily at bedtime, # 100 tablet, Refills 11, Tot. Refills 11, Maintenance, 07/08/21 9:39:00 EDT, Route to Pharmacy Electronically, [facility], 162.5, cm, 07/08/21 8:49:00 EDT, Height, 85.8, kg, 06/04/21 10:0... Start Date: 07/08/21 Status: Ordered tiZANidine 4 mg oral capsule 1 capsule, By Mouth, 3 times a day, # 90 capsule, 0 Refills, Maintenance, 03/06/22 16:55:00 EST, [facility], 163, cm, 02/11/22 19:19:00 EST, Height, 83, kg, 02/11/22 19:19:00 EST, Dry Weight Start Date: 03/06/22 Status: Ordered Trulicity Pen 3 mg/0.5 mL subcutaneous solution See Instructions, INJECT 0.5 ML SUBCUTANEOUSLY EVERY WEEK. ROTATE INJECTION SITES, # 2 mL, 5 Refills, Maintenance, 02/05/22 19:58:00 EDT, [facility], 163, cm, 02/05/22 11:00:00 EDT, Height,84, [...] Confirmed Active Panic attacks Confirmed Active BHN/BHCP Electric Cell Tender Charlene Fabian [phone] Confirmed Active Syncope and collapse Confirmed Active [...] Team Personnel Name: Sindy Bernal RN Position: [facility] RN Member Role: Primary Care Nurse Name: Graciela Thrasher RN Position: [facility] SN RN Member Role: Primary Care Nurse Name: Stevie Angel RN Position: [facility] RN Member Role: Primary Care Nurse Name: Leonora Bai NP Position: [facility] PCO Associate Professional Member Role: PCP Address: Address: [address] [place] [address] Name: Keily Ortega RN Position: [facility] RN Member Role: Primary Care Nurse Name: Graciela Munroe RN Position: [facility] RN Member Role: Primary Care Nurse Name: Nichole Pichardo RN Position: [facility] RN Member Role: Primary Care Nurse Name: Melvin Whitfield RN Position: [facility] PCO RN Member Role: Primary Care Nurse Name: Phuong Berkowitz RN Position: [facility] RN Member Role: Primary Care Nurse Name: Joselyn Rain RN Position: [facility] Software Development Analyst Member Role: Primary Care Nurse Care Team Related Persons Name: IRA ROMERO Address: home [address] [place] [address] Name: JHON LARSON Address: [address] [place] [address] Name: JHON LARSON Address: [address] [place] [address] Name: GALO CATALAN Name: NANCY CATALAN Address: home [address] [place] [address]
--- OUTSIDE RECORDS SUMMARY | 2023-03-25 08:21 | XMS_ITS | Continuity of Care Document ---
Author Name Unknown Organization [facility] Address [address] [place] [address]- Care Team Providers Care College Dean Name Role Phone Richardson UNIVERSITY ADMINISTRATOR, Leonora Pérez Primary Care Physician [place] [facility]22 - 11/23/22 [facility] [address] [place] [address]- Allergies, Adverse Reactions, Alerts Substance Reaction Severity Status morphine Active gabapentin swelling Active MetFORMIN Hydrochloride ER black tarry stool Active Lyrica dysphagia Active SEROquel body swelling - all over Act tony Immunizations Given and Recorded Vaccine Date Status Refusal Reason [id number] 12y+ bivalent booster vax 01/30/22 Given influenza virus vaccine, inactivated 01/30/22 Give n influenza virus vaccine, inactivated 02/04/21 Give n influenza virus vaccine, inactivated 1 04/19/20 Gi tonio influenza virus vaccine, inactivated 03/12/19 Give n influenza virus vaccine, inactivated 01/19/18 Give n influenza virus vaccine, inactivated 02/16/17 Give n pneumococcal 20-valent conjugate vaccine 12/26/21 Given SARS-CoV-2 mRNA ([id number]) vax 05/14/21 Given SARS-CoV-2 (COVID-19) mRNA BNT-[id number] [...] 09/25/22 17:00:00 EDT, Route to Pharmacy Electronically, [facility], Partial fill upon patient request if the prescription is for a sched... Start Date: 09/25/22 Status: Ordered Advair Diskus 500 mcg-50 mcg inhalation powder 1, inhalation, Inhalation, 2 times a day, rinse mouth and throat after use, # 60 each, Refills 11, Tot. Refills 11, Maintenance, 09/25/22 17:00:00 EDT, Inhaler, Route to Pharmacy Electronically, [id number], [facility]... Start Date: 09/25/22 Status: Ordered albuterol 0.083% inhalation solution 3 mL = 2.5 mg, 0 Refills, Maintenance, 02/06/22 16:39:00 EDT, Partial fill upon patient request if the prescription is for a schedule II opioid drug. Start Date: 02/06/22 Status: Ordered All Day Allergy 10 mg oral tablet 1 tablet, By Mouth, Daily, # 90 tablet, 3 Refills, Maintenance, 11/20/22 16:48:00 EDT, [facility], 163, cm, 11/20/22 16:00:00 EDT, Height, 83, kg, 02/11/22 19:19:00 EST, Dry Weight Start Date: 11/20/22 Status: Ordered amLODIPine 5 mg oral tablet 5 mg, 1, tablet, By Mouth, Daily, # 90 tablet, Refills 3, Tot. Refills 3, Maintenance, 04/29/22 11:56:00 EST, Route to Pharmacy Electronically, [facility], Partial fill upon patient request if the prescription is for a schedule II opio... Start Date: 04/29/22 Status: Ordered atorvastatin 40 mg oral tablet 1 tablet = 40 mg, By Mouth, Daily, # 90 tablet, 3 Refills, Maintenance, 09/25/22 16:58:00 EDT, Tablet, [facility] Partial fill upon patient request [...] tablet, 0 Refills, Maintenance, 07/25/22 17:58:00 EDT, [facility]., Partial fill upon patient request if [...] Gm, 1 Refills, Maintenance, 09/03/22 14:02:00 EDT, [facility], 15, APPLY TOPICALLY TO AFFECTED AREA TWO TIMES A DAY,163, cm, 08/14/22 16:50:00 EDT, Height, 83, kg, 11/... Start Date: 09/03/22 Status: Ordered docusate-senna 50 mg-187 mg oral tablet 2 tablet, By Mouth, 2 times a day, PRN Constipation, # 100 tablet, 11 Refills, Maintenance, 08/14/22 16:57:00 EDT, Tablet, [facility]., Partial fill upon patient request if the prescription is for a schedule II opioid drug., 2 tablet By... Start Date: 08/14/22 Status: Ordered doxycycline hyclate 100 mg oral tablet 1 tablet = 100 mg, By Mouth, 2 times a day, for 7 days, # 14 tablet, 0 Refills, Acute 11/27/22 16:35:00 EDT, 11/20/22 16:35:00 EDT, Tablet, [facility] Partial fill upon patient request if the prescription is for a schedule II opioid d... Start Date: 11/20/22 Stop Date: 11/27/22 Status: Ordered duloxetine 60 mg oral enteric coated capsule 2 capsule = 120 mg, By Mouth, Daily, # 60 capsule, 11 Refills, Maintenance, 11/20/22 16:48:00 EDT, Capsule, [facility] Partial fill upon patient request. NOT INCREASED DOSE. Please cancel all other Duloxetine scripts, 163, cm, ... Start Date: 11/20/22 Status: Ordered empagliflozin 10 mg oral tablet 1 tablet = 10 mg, By Mouth, Daily in AM, # 90 tablet, 3 Refills, Maintenance, 09/25/22 17:01:00 EDT, Tablet, [facility]., Partial fill upon patient request if [...] 10/22/22 15:19:00 EDT, Route to Pharmacy Electronically, [facility]., 163, cm, 09/25/22 16:20:00 EDT, Height, 83, kg, 11/0... Start Date: 10/22/22 Status: Ordered lidocaine 5% topical film 1 patch, Topically, Daily, PRN Pain , Mild, remove after 12 hours, # 13 each, 5 Refills, Maintenance, 09/25/22 16:59:00 EDT, Film, [facility]., Partial fill upon patient request if theprescription is for a schedule II opioid drug., 1 p... Start Date: 09/25/22 Status: Ordered lisinopril 20 mg oral tablet 20 mg, 1, tablet, By Mouth, Daily, # 90 tablet, Refills 3, Tot. Refills 3, Maintenance, 11/20/22 16:48:00 EDT, Route to Pharmacy Electronically, [facility]., 163, cm, 11/20/22 16:00:00EDT, Height, 83, kg, 02/11/22 19:19:00 EST, Dry Weight Start Date: 11/20/22 Status: Ordered mirtazapine 30 mg oral tablet 1 tablet = 30 mg, By Mouth, Daily at bedtime, # 90 tablet, 1 Refills, Maintenance, 09/25/22 17:00:00 EDT, Tablet, [facility]., Partial fill upon patient request if the prescription is for a schedule II opioid drug., 163, cm, 09/25/22 16... Start Date: 09/25/22 Status: Ordered omeprazole 40 mg oral enteric coated capsule 1 capsule, By Mouth, Daily, PRN NEEDED, # 30 capsule, 2 Refills, 08/26/22 13:27:00 EDT, [facility], 163, cm, 08/14/22 16:50:00 EDT, Height, 83, kg, 02/11/22 19:19:00 EST, Dry Weight Start Date: 08/26/22 Status: Ordered oxyCODONE 15 mg oral tablet 1 tablet = 15 mg, By Mouth, 3 times a day, on contract at [facility], # 84 tablet, 0 Refills, Maintenance, 11/21/22 15:54:00 EDT, [facility]., Partial fill upon patient request if [...] 11/21/22 15:54:00 EDT, Route to Pharmacy Electronically, [facility], 163, cm, 11/20/22 16:00:00 EDT, Height, 83, kg, 02/11/22 19:19:00 E... Start Date: 11/21/22 Status: Ordered traZODone 50 mg oral tablet 1/2 TO 1 TABLET, By Mouth, Daily at bedtime, # 30 tablet, Refills 5, Maintenance, 08/29/22 11:31:00EDT, [facility] to Pharmacy [facility]ically, [facility], 163, cm, 08/14/22 16:50:00 EDT, Height, 83, kg, 02/11/22 19:19:00 EST, Dry Weight Start Date: 08/29/22 Status: Ordered triamcinolone 55 mcg/inh nasal spray 1 sprays = 55 mcg, Nares, Both, Daily, # 1 each, 5 Refills, Maintenance, 08/14/22 16:59:00 EDT, [facility], Partial fill upon patient request if the prescription is for a schedule II opioid drug., 1 sprays Nares, Both Daily, 163, cm, 0... 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 Fabian [phone] Confirmed Active Syncope and collapse Confirmed Active Tobacco dependence Confirmed Active DM2 (diabetes mellitus, type 2) Confirmed 04/03/17 Active Incontinence of urine 3 Confirmed Active 1seen on MRI 10/2016, rec repeat imaging in October [address] [place] [facility] 3urge and stress Social History Social History Type Response Smoking Status Current every day sm oker; Type: Cigarettes; Tobacco use times per day: 1/2 ppd; entered on: 12/24/17 Sex Patient Care team information Care Team Personnel Name: Sindy Bernal RN Position: [facility] RN Member Role: Primary Care Nurse Name: Graciela Thrasher RN Position: [facility] SN RN Member Role: Primary Care Nurse Name: Stevie Angel RN Position: [facility] RN Member Role: Primary Care Nurse Name: Leonora Bai NP Position: [facility] PCO Associate Professional Member Role: PCP Address: Address: [address] [place] [id number] Name: Keily Ortega RN Position: [facility] RN Member Role: Primary Care Nurse Name: Nichole Pichardo RN Position: [facility] RN Member Role: Primary Care Nurse Name: Melvin Whitfield RN Position: [facility] AMB Nurse Member Role: Primary Care Nurse Name: Phuong Berkowitz RN Position: [facility] RN Member Role: Primary Care Nurse Name: Joselyn Rain RN Position: [facility] Turn Out Member Role: Primary Care Nurse Care Team Related Persons Name: IRA ROMERO Address: home [address] [place] [address] Name: JHON LARSON Address: home [address] [place] [address] Name: JHON LARSON Address: [address] [place] [address] Name: GALO CATALAN Name: NANCY CATALAN Address: home [address] [place] [address]
--- OUTSIDE RECORDS SUMMARY | 2023-03-25 08:21 | XMS_ITS | Continuity of Care Document ---
Author Name Unknown Organization [facility] Address [address] [place] [address]- Care Team Providers Care Tire Tester Name Role Phone Richardson QUIROZ, Leonora Pérez Primary Care Physician [phone] Encounter [facility] Date(s): 06/27/19 - 07/07/19 [facility] [address] [place] [address] Encounter Diagnosis INA (stress urinary incontinence, female)(Discharge Diagnosis) - 02/11/19 Attending Physician: Clarence Reynaga Admitting Physician: Clarence Reynaga Referring Physician: Admtr, Clarence Allergies, Adverse Reactions, Alerts Substance Reaction Severity [...] 12:48:00 EST, Powder, Route to Pharmacy Electronically, [id number], [facility]/pharmacy #[id number], 158, cm, 04/26/19 9:58:00 EST, H... Start Date: 04/27/19 Status: Ordered albuterol 0.083% inhalation solution 3 mL = 2.5 mg, Inhalation, Every 4 hours, PRN for wheezing, # 100 each, 5 Refills, Maintenance, 06/27/19 14:32:00 EDT, Solution, [facility]/pharmacy #[id number], 160, cm, 06/01/19 14:08:00 [...] 5 Refills, Maintenance, 04/19/19 15:40:00 EST, Tablet, [facility]/pharmacy #[id number], 158, cm, 04/04/19 15:21:00 EST, Height, 82, kg, 04/01/19 16:10:00 EST, Dry Weight Start Date: 04/19/19 Status: Ordered clonazePAM 0.5 mg oral tablet TAKE 1 TABLET BY MOUTH TWICE A DAY NEEDED Start Date: 06/02/19 Status: Ordered clotrimazole 1% topical cream 1 application, Topically, 2 times a day, # 30 Gm, 0 Refills, Maintenance, 05/30/19 19:02:00 EST, Cream, [facility]/pharmacy #[id number], 1 application Topically 2 [...] 5 Refills, Maintenance, 04/28/19 16:05:00 EST, Tablet, [facility]/pharmacy #[id number], 158, cm, 04/28/19 14:51:00 EST, Height, 82, kg, 04/01/19 16:10:00 EST, Dry Weight Start Date: 04/28/19 Status: Ordered lidocaine 5% topical film 1 patch, Topically, Daily, For chronic radicular back pain, # 30 patch, 5 Refills, Maintenance, 06/27/19 14:37:00 EDT, [facility]/pharmacy #[id number], 1 patch Topically Daily,Instr:For chronic radicular back pain, 160, cm, 06/01/19 14:08:00 EST, Height, 88.9, kg,... Start Date: 06/27/19 Status: Ordered lisinopril 10 mg oral tablet 10 mg, 1, tablet, By Mouth, Daily, # 90 tablet, Refills 3, Tot. Refills 3, Maintenance, 05/08/19 20:27:00 EST, Route to Pharmacy Electronically, [facility]/pharmacy #[id number], to replace 2.5mg dose, 158, [...] not to exceed 3000 mg/day. instructions in danish, # 120 tablet, 2 Refills, Maintenance, 05/04/19 9:35:00 EST, Tablet, [facility]/pharmacy #[id number], 158, cm, 04/28/19 14:51:00 EST, Height, 82, kg, 03/07... Start Date: 05/04/19 Status: Ordered metFORMIN 750 mg oral tablet, extended release 1 tablet = 750 mg, By Mouth, 2 times a day, # 60 tablet, 6 Refills, Maintenance, 05/30/19 18:54:00 EST, ER Tablet, [facility]/pharmacy #[id number], dose increased to BID 05/30/19, 160, [...] pain, for 28 days, on contract at [facility]., # 56 tablet, 0 Refills, Acute 08/04/19 13:49:00 EDT, 07/07/19 13:49:00 EDT, [facility]/pharmacy #[id number], Partial fill upon patient request, 160, cm, 06/01/19 14:08:00 EST,... Start Date: 07/07/19 Stop Date: 08/04/19 Status: Ordered prazosin 1 mg oral capsule 1 mg, 1, capsule, By Mouth, Daily at bedtime, for nightmares, # 30 capsule, Refills 0, Tot. Refills0, Maintenance, 05/30/19 18:52:00 EST, Route to Pharmacy Electronically, [facility]/pharmacy #[id number], 160, cm, 05/30/19 18:08:00 EST, Height, 88.9, kg, 05/23/19... Start Date: 05/30/19 Status: Ordered raNITIdine 300 mg oral tablet See Instructions, # 30 tablet, Refills 2 Tot. Refills 2, TAKE 1 TABLET BY MOUTH EVERYDAY AT BEDTIME, [facility]/pharmacy #[id number] Start Date: 01/27/19 Status: Ordered Senexon-S 2 tablet, By Mouth, Daily at bedtime, 0 Refills, Maintenance, 11/25/18 10:10:49 EDT Start Date: 11/25/18 Status: Ordered senna 187 mg oral tablet 1 tablet = 8.6 mg, By Mouth, Daily at bedtime, PRN as needed for constipation, # 100 tablet, 5 Refills, Maintenance, 05/04/19 9:35:00 EST, [facility]/pharmacy #[id number], 158, cm, 04/28/19 14:51:00 EST, Height, 82, kg, 04/01/19 16:10:00 EST, Dry Weight Start Date: 05/04/19 Status: Ordered Senna 8.6 mg oral tablet 8.6 mg, 1, tablet, By Mouth, Daily at bedtime, # 100 tablet, Refills 2, Tot. Refills 2, Maintenance, 06/10/19 16:12:00 EST, Route to Pharmacy Electronically, [facility]/pharmacy #[id number], 160, cm, 06/01/19 14:08:00 EST, Height, 88.9, kg, 05/23/19 22:09:00 EST,... Start Date: 06/10/19 Status: Ordered Spiriva Respimat 60 ACT 2.5 mcg/inh inhalation aerosol 2 puffs, Inhalation, Daily, # 1 each, 5 Refills, Maintenance, 04/26/19 10:30:00 EST, [facility]/pharmacy #[id number], 158, cm, 04/26/19 9:58:00 EST, Height, 82, kg, 04/01/19 16:10:00 EST, Dry Weight Start Date: 04/26/19 Status: Ordered tiZANidine 2 mg oral tablet 2 mg, 1, tablet, By Mouth, 2 times a day, PRN, # 30 tablet, Refills 2, Tot. Refills 2, Maintenance,as needed for muscle spasm, 06/13/19 18:17:00 EDT, Route to Pharmacy Electronically, [facility]/pharmacy #[id number], 160, cm, 06/01/19 14:08:00 [...] on CPAP(Confirmed) Active Panic attacks(Confirmed) Active *BHN/BHCP/Efrem Macdonald-[phone]/[facility], active care coordination(Confirmed) Active Acute meniscal tear of right knee(Confirmed) 6 06/2015 Active Tobacco dependence(Confirmed) Active DM2 (diabetes mellitus, type 2)(Confirmed) 04/03/17 Active Incontinence of urine(Confirmed) 7 Active 1surgically repaired November 2015, Dr. 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 Sg MENDEZ 7urge and stress Diagnosis Diagnosis Type Effective Dates Health Status Cl inical Service Informant INA (stress urinary incontinence, female) Discharge Diagnosis 02/11/19 Social History Social History Type Response Tobacco Use: Pt states she q uit smoking 1 week ago. Sex Female
--- OUTSIDE RECORDS SUMMARY | 2023-03-25 08:21 | XMS_ITS | Continuity of Care Document ---
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 Date(s): 02/11/21 - 03/13/21 [facility] [address] [place] [address]- Allergies, Adverse Reactions, Alerts Substance Reaction Severity [...] 19:30:00 EDT, Route to Pharmacy Electronically, [facility]/pharmacy #[id number], Partial fill upon patient request if the prescription is for a schedule II o... Start Date: 01/16/21 Status: Ordered Advair Diskus 500 mcg-50 mcg inhalation powder 1, puffs, Inhalation, 2 times a day, [id number], # 1 each, Refills 11, Tot. Refills 11, Maintenance, 04/05/20 14:12:00 EST, Powder, Route to Pharmacy Electronically, [id number], [facility]/pharmacy #[id number], 162.56, cm, 03/27/20 11:36:00... Start Date: 04/05/20 Status: Ordered albuterol 0.083% inhalation solution 3 mL = 2.5 mg, Inhalation, Every 4 hours, PRN for wheezing, # 100 each, 2 Refills, Maintenance, 08/15/20 10:22:00 EDT, Solution, [facility]/pharmacy #[id number], 163, cm, 08/09/20 8:45:00 EDT, Height, 84.8, kg, 06/25/20 20:28:00 EDT, Dry Weight Start Date: 08/15/20 Status: Ordered amitriptyline 50 mg oral tablet 1 tablet, By Mouth, Daily at bedtime, # 90 tablet, 1 Refills, [id number], 155, cm, 02/04/21 11:46:00 EDT, Height, 90.9, kg, 02/02/21 5:59:00 EDT, Dry Weight Start Date: 02/07/21 Status: Ordered atorvastatin 20 mg oral tablet 1 tablet = 20 mg, By Mouth, Daily, # 90 tablet, 3 Refills, Maintenance, 04/05/20 14:11:00 EST, Tablet, [facility]/pharmacy #[id number], Partial fill upon patient request if the prescription is for a schedule II opioid drug., 162.56, cm, 03/27/20 11:36:00 EST, Heig... Start Date: 04/05/20 Status: Ordered capsaicin 0.025% topical cream 1 application, Topically, 3 times a day, # 45 Gm, 3 Refills, Maintenance, 11/01/19 15:25:00 EDT, Cream, [facility]/pharmacy #[id number], 1 application Topically 3 times a day, 163, cm, 11/01/19 14:40:00 EDT, Height, 80, kg, 10/29/19 0:29:00 EDT, Dry Weight Start Date: 11/01/19 Status: Ordered cetirizine 10 mg oral tablet 1 tablet = 10 mg, By Mouth, Daily, # 30 tablet, 5 Refills, Maintenance, 06/20/20 13:18:00 EDT, Tablet, [facility]/pharmacy #[id number], 162, cm, 05/24/20 9:01:00 EST, Height, [...] Refills, Maintenance, 12/05/20 12:42:00 EDT, Cream, [facility]/pharmacy #[id number], 1 [...] 16 mL, 1 Refills, Maintenance, [id number], 30, USE 1 SPRAY IN BOTH NOSTRILS [...] Refills, Maintenance, 03/01/21 12:42:00 EST, Solution, [facility]/pharmacy #[id number], increased dose 12/26/19, 155, cm, 02/18/21 14:54:00 EST, Height, 90.9, kg, 02/02/21 5:59:00 EDT, Dry Weight Start Date: 03/01/21 Status: Ordered lidocaine 5% topical film 1 patch, Topically, Daily, For chronic radicular back pain, # 30 patch, 5 Refills, Maintenance, 10/11/20 8:15:00 EDT, [facility]/pharmacy #[id number], 1 patch [...] Refills, Maintenance, 08/15/20 15:59:00 EDT, Capsule, [facility]/pharmacy #[id number], Partial fill upon patient request if the prescription is for a schedule II opioid drug., 163, cm, 08/15/20 14:23:00 EDT, Heig... Start Date: 08/15/20 Status: Ordered mirabegron 25 mg oral tablet, extended release 1 tablet = 25 mg, By Mouth, Daily, do not crush or chew, # 30 tablet, 11 Refills, Maintenance, 12/31/20 15:58:00 EDT, ER Tablet, [facility]/pharmacy #[id number], [...] 1 Refills, Maintenance, 01/31/21 14:16:00 EDT, Tablet, [facility], Partial fill upon patient request if the prescription is for a schedule II opioid . Start Date: 01/31/21 Status: Ordered omeprazole 40 mg oral enteric coated capsule 1 capsule = 40 mg, By Mouth, Daily, PRN Dyspepsia, # 90 capsule, 0 Refills, Maintenance, 01/11/21 13:46:00 EDT, EC Capsule, [facility]/pharmacy #[id number], 165, cm, 12/31/20 14:56:00 EDT, Height, 87.6, kg, 12/31/20 14:56:00 EDT, Dry Weight Start Date: 01/11/21 Status: Ordered oxyCODONE 15 mg oral tablet 1 tablet = 15 mg, By Mouth, 2 times a day, for 28 days, # 56 tablet, 0 Refills, Acute 03/18/21 15:20:00 EST, 02/18/21 15:20:00 EST, [facility], Client on contract at [facility], failed Morphine, switching to oxycodone 15mg BID today 02/18/21... Start Date: 02/18/21 Stop Date: 03/18/21 Status: Ordered Senna 8.6 mg oral tablet 8.6 mg, 1, tablet, By Mouth, Daily at bedtime, # 100 tablet, Refills 11, Tot. Refills 11, Maintenance, 10/30/20 11:37:00 EDT, Route to Pharmacy Electronically, [facility]/pharmacy #[id number], 163, cm, 08/15/20 14:23:00 EDT, Height, 84.8, kg, 06/25/20 20:28:00 EDT... Start Date: 10/30/20 Status: Ordered Spiriva Respimat 60 ACT 2.5 mcg/inh inhalation aerosol 2 puffs, Inhalation, Daily, # 1 each, 11 Refills, Maintenance, 04/05/20 14:17:00 EST, [facility]/pharmacy #[id number], Partial fill upon [...] 12/05/20 12:45:00 EDT, Route to Pharmacy Electronically, [facility]/pharmacy #[id number], 165, cm, 11/22/20 8:40:00 EDT, Height, 84.8, kg, 06/25/20 20:28:00... 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, pending MRI 3urge and stress Social History Social History Type Response Smoking Status Current every day kaitlin valle; Type: Cigarettes; Tobacco use times per day: 1/2 ppd; entered on: 12/24/17 Sex
--- OUTSIDE RECORDS SUMMARY | 2023-03-25 08:21 | XMS_ITS | Continuity of Care Document ---
Author Name Unknown Organization [facility] Address [address] [place] [address]- Care Team Providers Care Assistant Name Role Phone Richardson QUIROZ, Leonora Pérez Primary Care Physician [facility] - 05/16/20 [facility] [address], [place] [address] Allergies, Adverse Reactions, Alerts Substance Reaction [...] 14:12:00 EST, Powder, Route to Pharmacy Electronically, [id number], [facility]/pharmacy #[id number], 162.56, cm, 03/27/20 11:36:00... Start Date: 04/05/20 Status: Ordered albuterol 0.083% inhalation solution 3 mL = 2.5 mg, Inhalation, Every 4 hours, PRN for wheezing, # 100 each, 5 Refills, Maintenance, 06/27/19 14:32:00 EDT, Solution, [facility]/pharmacy #[id number], 160, cm, 06/01/19 14:08:00 EST, Height, 88.9, kg, 05/23/19 22:09:00 EST, Dry Weight Start Date: 06/27/19 Status: Ordered amitriptyline 50 mg oral tablet 1 tablet = 50 mg, By Mouth, Daily at bedtime, # 30 tablet, 5 Refills, Maintenance, 12/30/19 18:21:00 EDT, Tablet, [facility]/pharmacy #[id number], 163, cm, 12/26/19 13:58:00 EDT, Height, 80, kg, 10/29/19 0:29:00 EDT, Dry Weight Start Date: 12/30/19 Status: Ordered atorvastatin 20 mg oral tablet 1 tablet = 20 mg, By Mouth, Daily, # 90 tablet, 3 Refills, Maintenance, 04/05/20 14:11:00 EST, Tablet, [facility]/pharmacy #[id number], Partial fill upon patient request if the prescription is for a schedule II opioid drug., 162.56, cm, 03/27/20 11:36:00 EST, Heig... Start Date: 04/05/20 Status: Ordered capsaicin 0.025% topical cream 1 application, Topically, 3 times a day, # 45 Gm, 3 Refills, Maintenance, 11/01/19 15:25:00 EDT, Cream, [facility]/pharmacy #[id number], 1 application Topically 3 times a day, 163, cm, 11/01/19 14:40:00 EDT, Height, 80, kg, 10/29/19 0:29:00 EDT, Dry Weight Start Date: 11/01/19 Status: Ordered cetirizine 10 mg oral tablet 1 tablet = 10 mg, By Mouth, Daily, # 30 tablet, 5 Refills, Maintenance, 12/13/19 18:32:00 EDT, Tablet, [facility]/pharmacy #[id number], 163, cm, 12/13/19 15:57:00 EDT, Height, 80, kg, 10/29/19 0:29:00 EDT, Dry Weight Start Date: 12/13/19 Status: Ordered clonazePAM 0.5 mg oral tablet TAKE 1 TABLET BY MOUTH TWICE A DAY NEEDED Start Date: 06/02/19 Status: Ordered clotrimazole 1% topical cream 1 application, Topically, 2 times a day, # 30 Gm, 1 Refills, Maintenance, 02/03/20 13:47:00 EDT, Cream, [facility]/pharmacy #[id number], 1 application Topically 2 [...] patch, 5 Refills, Maintenance, 03/09/20 8:53:00 EST, [facility]/pharmacy #[id number], 1 patch Topically Daily,Instr:For chronic radicular back pain, 163, cm, 12/26/19 13:58:00 EDT, Height, 80, kg, 07... Start Date: 03/09/20 Status: Ordered lisinopril 20 mg oral tablet 20 mg, 1, tablet, By Mouth, Daily, # 30 tablet, Refills 11, Tot. Refills 11, Maintenance, 05/07/20 13:30:00 EST, Route to Pharmacy Electronically, [facility]/pharmacy #[id number], 162, cm, 04/21/20 11:33:00 EST, Height, 80, kg, 04/18/20 9:48:00 EST, Dry Weight Start Date: 05/07/20 Status: Ordered Mapap 325 mg oral tablet 2 tablet = 650 mg, By Mouth, Every 4 hours, PRN for pain, not to exceed 3000 mg/day. instructions in [facility], # 120 tablet, 2 Refills, Maintenance, 11/01/19 15:24:00 EDT, Tablet, [facility]/pharmacy #[id number], 163, cm, 11/01/19 14:40:00 [...] 2 Refills, Maintenance, 04/05/20 14:08:00 EST, Tablet, [facility]/pharmacy #[id number], Partial fill upon patient request if the prescription is for a schedule II opioid drug., 162.56, cm, ... Start Date: 04/05/20 Status: Ordered omeprazole 20 mg oral enteric coated capsule 1 capsule = 20 mg, By Mouth, Daily, Use as little as possible to control symptoms., # 30 capsule, 2Refills, Maintenance, 10/06/19 7:45:00 EDT, EC Capsule, [facility]/pharmacy #[id number], cancel Ranitidine, 160,cm, 09/28/19 [...] Acute 05/31/20 17:54:00 EST, 05/03/20 17:54:00 EST, [facility]/pharmacy #[id number], Partial fill upon patient request if the prescription is for a schedule II opioid drug. Client on c... Start Date: 05/03/20 Stop Date: 05/31/20 Status: Ordered Senna 8.6 mg oral tablet 8.6 mg, 1, tablet, By Mouth, Daily at bedtime, # 100 tablet, Refills 2, Tot. Refills 2, Maintenance, 06/10/19 16:12:00 EST, Route to Pharmacy Electronically, [facility]/pharmacy #[id number], 160, cm, 06/01/19 14:08:00 EST, Height, 88.9, kg, 05/23/19 22:09:00 EST,... Start Date: 06/10/19 Status: Ordered Soma 350 mg oral tablet 350 mg, 1, tablet, By Mouth, 3 times a day, # 9 tablet, Refills 0, Tot. Refills 0, Maintenance, 05/04/20 15:46:00 EST, Route to Pharmacy Electronically, [facility]/pharmacy #[id number], Partial fill upon patient request if the prescription is for a schedule II opi... Start Date: 05/04/20 Status: Ordered Spiriva Respimat 60 ACT 2.5 mcg/inh inhalation aerosol 2 puffs, Inhalation, Daily, # 1 each, 11 Refills, Maintenance, 04/05/20 14:17:00 EST, [facility]/pharmacy #[id number], Partial fill upon [...] 11:26:00 EST, Route to Pharmacy Electronically, [facility]/pharmacy #[id number], 162, cm, 04/21/20 11:33:00 [...] – [facility], pending MRI 3urge and stress Social History Social History Type Response Tobacco Use: Pt states she q uit smoking 1 week ago. Sex
--- OUTSIDE RECORDS SUMMARY | 2023-03-25 08:21 | XMS_ITS | Continuity of Care Document ---
Author Name Unknown Organization [facility] Address [address] [place] [address]- Care Team Providers Care Electrician Master Name Role Phone Richardson QUIROZ, Leonora Pérez Primary Care Physician [facility]): 06/[facility]/21 - 07/05/21 [facility] [address], [place] [address] Allergies, Adverse Reactions, Alerts Substance Reaction Severity Status morphine Active gabapentin swelling Active Lyrica dysphagia Active SEROquel body swelling - all over Act tony MetFORMIN Hydrochloride ER black tarry stool Active Immunizations Given and Recorded Vaccine Date Status Refusal Reason SARS-CoV-2 mRNA ([id number]) vax 05/14/21 Given influenza virus vaccine, inactivated [...] 05/31/21 15:43:00 EST, Route to Pharmacy Electronically, [facility], Partial fill upon patient request if the prescription is for a sched... Start Date: 05/31/21 Status: Ordered Advair Diskus 500 mcg-50 mcg inhalation powder 1, puffs, Inhalation, 2 times a day, j45.909, # 1 each, Refills 5, Tot. Refills 5, Maintenance, 05/15/21 9:20:00 EST, Powder, Route to Pharmacy Electronically, [id number], [facility], 162.5, cm, 05/10/21 14:47... Start Date: 05/15/21 Status: Ordered albuterol 0.083% inhalation solution 3 mL = 2.5 mg, Inhalation, Every 4 hours, PRN for wheezing, # 100 each, 2 Refills, Maintenance, 05/15/21 9:30:00 EST, Solution, [facility], 162.5, cm, 05/10/21 14:47:00 EST, Height, 90.9, kg, 02/02/21 5:59:00 EDT, Dry Weight Start Date: 05/15/21 Status: Ordered amitriptyline 75 mg oral tablet 1 tablet = 75 mg, By Mouth, Daily at bedtime, # 90 tablet, 1 Refills, Maintenance, 05/07/21 10:21:00 EST, Tablet, [facility], Partial fill upon patient request if the prescription is for a schedule II opioid drug., 162.5, cm, 03/22/21... Start Date: 05/07/21 Status: Ordered atorvastatin 20 mg oral tablet 3 tablet = 60 mg, By Mouth, Daily, # 90 tablet, 3 Refills, Maintenance, 04/05/20 14:11:00 EST, Tablet, [facility]/pharmacy #[id number], Partial fill upon patient request if the prescription is for a schedule II opioid drug., 162.56, cm, 03/27/20 11:36:00 EST, Heig... Start Date: 04/05/20 Status: Ordered capsaicin 0.025% topical cream 1 application, Topically, 3 times a day, # 45 Gm, 3 Refills, Maintenance, 11/01/19 15:25:00 EDT, Cream, [facility]/pharmacy #[id number], 1 application Topically 3 times a day, 163, cm, 11/01/19 14:40:00 EDT, Height, 80, kg, 10/29/19 0:29:00 EDT, Dry Weight Start Date: 11/01/19 Status: Ordered cetirizine 10 mg oral tablet 1 tablet = 10 mg, By Mouth, Daily, # 30 tablet, 5 Refills, Maintenance, 06/20/20 13:18:00 EDT, Tablet, [facility]/pharmacy #[id number], 162, cm, 05/24/20 9:01:00 EST, Height, 80, kg, 04/18/20 9:48:00 EST, Dry Weight Start Date: 06/20/20 Status: Ordered cholecalciferol 5000 intl units oral capsule 1 capsule = 125 mcg, By Mouth, Daily, with food, # 100 capsule, 2 Refills, Maintenance, 02/11/21 11:17:00 EST, Capsule, [facility]/pharmacy #[id number], Partial fill upon patient request [...] 1 Refills, Maintenance, 12/05/20 12:42:00 EDT, Cream, [facility]/pharmacy #[id number], 1 application Topically 2 times [...] 5 Refills, Maintenance, 02/18/21 15:09:00 EST, Capsule, [facility]/pharmacy #[id number], Partial fill upon patient request. [...] DAY, # 16 mL, 1 Refills, Maintenance, [id number], 30, USE 1 SPRAY IN BOTH NOSTRILS 2 TIMES A DAY, 163, cm, 08/15/20 14:23:00 EDT, Height,84.8, kg, 06/25/20 20:28:00 EDT, Dry Weight Start Date: 09/07/20 Status: Ordered hydrochlorothiazide 12.5 mg oral tablet 1 tablet = 12.5 mg, By Mouth, Daily, TAKE 1 TABLET BY MOUTH EVERY DAY, # 30 capsule, 2 Refills, Maintenance, 05/15/21 9:20:00 EST, [facility]., 162.5, cm, 05/10/21 14:47:00 EST, Height, [...] 3 Refills, Maintenance, 06/18/21 21:04:00 EDT, Tablet, [facility], 162.5, cm, 06/17/21 13:04:00 EDT, Height, 85.8, kg, 06/04/21 10:03:00 EST, Dry Weight Start Date: 06/18/21 Status: Ordered Lantus 100 u/ml subcutaneous solution = 40 units, Subcutaneous Injection, Daily, # 12 mL, 2 Refills, Maintenance, 03/01/21 12:42:00 EST, Solution, [facility]/pharmacy #[id number], increased dose 12/26/19, 155, cm, [...] 04/12/21 13:24:00 EST, Route to Pharmacy Electronically, [facility]/pharmacy #[id number], 162.5, cm, 03/22/21 14:58:00 EST, Height, 90.9, kg, 02/02/21 5:59:00 EDT, Dry Weight Start Date: 04/12/21 Status: Ordered loratadine 10 mg oral capsule 1 capsule = 10 mg, By Mouth, Daily, # 40 capsule, 0 Refills, Maintenance, 08/15/20 15:59:00 EDT, [id number] fill upon patient request if the prescription is for a schedule II opioid drug., 163, cm, 08/15/20 14:23:00 EDT, Heig... Start Date: 08/15/20 Status: Ordered meloxicam 7.5 mg oral tablet 1 tablet = 7.5 mg, By Mouth, Daily, # 30 tablet, 1 Refills, Maintenance, 06/24/21 16:30:00 EDT, Tablet, [facility]., Partial fill upon patient request if the prescription is for a schedule II opioid drug., 162.5, cm, 06/24/21 15:35:00 E... Start Date: 06/24/21 Status: Ordered mirabegron 25 mg oral tablet, extended release 1 tablet = 25 mg, By Mouth, Daily, do not crush or chew, # 30 tablet, 11 Refills, Maintenance, 12/31/20 15:58:00 EDT, ER Tablet[id number] fill upon patient request if [...] Refills, Maintenance, 05/09/21 10:45:00 EST, EC Capsule, [facility]., 162.5, cm, 03/22/21 14:58:00 EST, Height, 90.9,kg, 02/02/21 5:59:00 EDT, Dry Weight Start Date: 05/09/21 Status: Ordered oxyCODONE 15 mg oral tablet 1 tablet = 15 mg, By Mouth, 3 times a day, for 28 days, MASSPAT CHECKED PT ON CONTRACT AT [facility], # 84 tablet, 0 Refills, Acute 07/11/21 16:22:00 EDT, 06/13/21 16:22:00 EST, [facility]., 162.5, cm, 06/06/21 9:12:00 EST, Height... [...] drug. Start Date: 03/14/21 Status: Ordered predniSONE 50 mg oral tablet 1 tablet = 50 mg, By Mouth, Daily, # 5 tablet, 0 Refills, Maintenance, 07/01/21 15:03:00 EDT, [facility], Partial fill upon patient request if the prescription is for a schedule II opioid drug., 162.5, cm, 07/01/21 14:34:00 EDT, Height... Start Date: 07/01/21 Stop Date: 07/06/21 Status: Ordered Senna 8.6 mg oral tablet 8.6 mg, 1, tablet, By Mouth, Daily at bedtime, # 100 tablet, Refills 11, Tot. Refills 11, Maintenance, 10/30/20 11:37:00 EDT, Route to Pharmacy Electronically, [facility]/pharmacy #[id number], 163, cm, 08/15/20 14:23:00 EDT, [...] 06/24/21 19:16:00 EDT, Route to Pharmacy Electronically, [facility]., 162.5, cm, 06/24/21 15:35:00 EDT, Height, 85.8, kg, ... Start Date: 06/24/21 Stop Date: 08/19/21 Status: Ordered topiramate 25 mg oral tablet 2 tablet = 50 mg, By Mouth, Daily, For nerve pain and headaches, # 60 tablet, 1 Refills, Maintenance, 07/01/21 15:05:00 EDT, Tablet, [facility]., Partial fill upon patient request if the prescription is for a schedule II opioid drug., 1... 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
--- OUTSIDE RECORDS SUMMARY | 2023-03-25 08:21 | XMS_ITS | Continuity of Care Document ---
Author Name Unknown Organization [facility] Erika mary Address [address] [place] [address] [address] [place] [address]- Care Team Providers Care Merchandising Director Name Role Phone Richardson QUIROZ, Leonora Pérez Primary Care Physician [phone] [facility]counter [facility] Date[facility]s): 06/17/21 - 07/17/21 [facility] [address] [place], [place] [address] Attending Physician: Clarence Reynaga Admitting Physician: Admtr, Ar8 Referring Physician: Admtr, Ar8 Allergies, Adverse Reactions, Alerts Substance Reaction Severity Status morphine Active gabapentin swelling Active Lyrica dysphagia Active SEROquel body swelling - all over Act tony MetFORMIN Hydrochloride ER black tarry stool Active Immunizations Given and Recorded Vaccine Date Status Refusal Reason SARS-CoV-2 mRNA ([id number]-nbdu-crdmq) vax 05/14/21 Given influenza virus vaccine, inactivated [...] 05/31/21 15:43:00 EST, Route to Pharmacy Electronically, [facility], Partial fill upon patient request if the prescription is for a sched... Start Date: 05/31/21 Status: Ordered Advair Diskus 500 mcg-50 mcg inhalation powder 1, puffs, Inhalation, 2 times a day, j45.909, # 1 each, Refills 5, Tot. Refills 5, Maintenance, 05/15/21 9:20:00 EST, Powder, Route to Pharmacy Electronically, [id number], [facility]., 162.5, cm, 05/10/21 14:47... Start Date: 05/15/21 Status: Ordered albuterol 0.083% inhalation solution 3 mL = 2.5 mg, Inhalation, Every 4 hours, PRN for wheezing, # 100 each, 2 Refills, Maintenance, 05/15/21 9:30:00 EST, Solution, [facility]., 162.5, cm, 05/10/21 14:47:00 EST, Height, 90.9, kg, 02/02/21 5:59:00 EDT, Dry Weight Start Date: 05/15/21 Status: Ordered amitriptyline 75 mg oral tablet 1 tablet = 75 mg, By Mouth, Daily at bedtime, # 90 tablet, 1 Refills, Maintenance, 05/07/21 10:21:00 EST, Tablet, [facility]., Partial fill upon patient request if the prescription is for a schedule II opioid drug., 162.5, cm, 03/22/21... Start Date: 05/07/21 Status: Ordered atorvastatin 40 mg oral tablet 1 tablet = 40 mg, By Mouth, Daily, # 90 tablet, 3 Refills, Maintenance, 07/08/21 9:47:00 EDT, Tablet, [facility]., Partial fill upon patient request if the prescription is for a schedule II opioid drug., 162.5, cm, 07/08/21 8:49:00 EDT,... Start Date: 07/08/21 Status: Ordered cetirizine 10 mg oral tablet 1 tablet = 10 mg, By Mouth, Daily, # 30 tablet, 5 Refills, Maintenance, 07/08/21 9:44:00 EDT, Tablet, [facility]., 162.5, cm, 07/08/21 8:49:00 EDT, Height, 85.8, kg, 06/04/21 10:03:00 EST, Dry Weight Start Date: 07/08/21 Status: Ordered cholecalciferol 5000 intl units oral capsule 1 capsule = 125 mcg, By Mouth, Daily, with food, # 100 capsule, 2 Refills, Maintenance, 02/11/21 11:17:00 EST, Capsule, [facility]/pharmacy #[id number], Partial fill upon patient [...] 1 Refills, Maintenance, 07/08/21 9:45:00 EDT, Cream, [facility], PLEASE CANCEL ESTRADIOL VAGINAL CREAM, 1 [...] 155, cm, 02/18/2114:54:00 EST, Height, 90.9, kg, 10/30/21 5:59:00 ED... Start Date: 02/18/21 Status: Ordered empagliflozin 10 mg oral tablet 1 tablet = 10 mg, By Mouth, Daily in AM, # 30 tablet, 5 Refills, Maintenance, 07/08/21 9:43:00 EDT,Tablet, [facility], Partial fill upon patient request if the prescription is for a schedule II opioid drug., 162.5, cm, 07/08/21 8:49:0... Start Date: 07/08/21 Status: Ordered fluticasone 50 mcg/inh nasal spray See Instructions, USE 1 SPRAY IN BOTH NOSTRILS 2 TIMES A DAY, # 16 mL, 1 Refills, 07/08/21 9:44:00 EDT, [facility]., 30, USE 1 SPRAY IN BOTH NOSTRILS 2 TIMES A DAY, 162.5, cm, :49:00 EDT, Height, 85.8, kg, 06/04/21 10:03:00 ES... Start Date: 07/08/21 Status: Ordered hydrochlorothiazide 12.5 mg oral tablet 1 tablet = 12.5 mg, By Mouth, Daily, TAKE 1 TABLET BY MOUTH EVERY DAY, # 30 capsule, 2 Refills, Maintenance, 05/15/21 9:20:00 EST, [facility]., 162.5, cm, 05/10/21 14:47:00 EST, Height, [...] Maintenance, 06/18/21 21:04:00 EDT, Tablet, [facility]., 162.5, cm, 06/17/21 13:04:00 EDT, Height, 85.8, kg, 06/04/21 10:03:00 EST, Dry Weight Start Date: 06/18/21 Status: Ordered Lantus 100 u/ml subcutaneous solution = 50 units, Subcutaneous Injection, Daily, # 15 mL, 5 Refills, Maintenance, 07/08/21 9:38:00 EDT, Solution, [facility]., ;, 162.5, cm, 07/08/21 8:49:00 EDT, Height, 85.8, kg, 06/04/21 10:03:00 EST, Dry Weight Start Date: 07/08/21 Status: Ordered lisinopril 20 mg oral tablet 20 mg, 1, tablet, By Mouth, Daily, # 90 tablet, Refills 3, Tot. Refills 3, Maintenance, 04/12/21 13:24:00 EST, Route to Pharmacy Electronically, [facility]/pharmacy #[id number], 162.5, cm, 03/22/21 14:58:00 EST, Height, 90.9, kg, 02/02/21 5:59:00 EDT, Dry Weight Start Date: 04/12/21 Status: Ordered meloxicam 7.5 mg oral tablet 1 tablet = 7.5 mg, By Mouth, Daily, # 30 tablet, 1 Refills, Maintenance, 06/24/21 16:30:00 EDT, Tablet, [facility], Partial fill upon patient [...] Refills, Maintenance, 05/09/21 10:45:00 EST, EC Capsule, [facility], 162.5, cm, 03/22/21 14:58:00 EST, Height, 90.9,kg, 02/02/21 5:59:00 EDT, Dry Weight Start Date: 05/09/21 Status: Ordered oxyCODONE 15 mg oral tablet 1 tablet = 15 mg, By Mouth, 3 times a day, for 28 days, MASSPAT CHECKED PT ON CONTRACT AT [facility], # 84 tablet, 0 Refills, Acute 08/08/21 16:38:00 EDT, 07/11/21 16:38:00 EDT, [facility], 162.5, cm, 07/08/21 8:49:00 EDT, Height... [...] 07/08/21 9:39:00 EDT, Route to Pharmacy Electronically, [facility], 162.5, cm, 07/08/21 8:49:00 EDT, Height, 85.8, kg, 06/04/21 10:0... Start Date: 07/08/21 Status: Ordered tiZANidine 4 mg oral tablet 4 mg, 1, tablet, By Mouth, Every 8 hours, PRN, # 84 tablet, Refills 1, Tot. Refills 1, Maintenance,Spasm, 06/24/21 19:16:00 EDT, Route to Pharmacy Electronically, [facility], 162.5, cm, 06/24/21 15:35:00 EDT, Height, 85.8, kg, ... Start Date: 06/24/21 Stop Date: 08/19/21 Status: Ordered topiramate 25 mg oral tablet 2 tablet = 50 mg, By Mouth, Daily, For nerve pain and headaches, # 60 tablet, 1 Refills, Maintenance, 07/01/21 15:05:00 EDT, Tablet, [facility] Partial fill upon patient request if the prescription is for a schedule II opioid drug., 1... 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
--- OUTSIDE RECORDS SUMMARY | 2023-03-25 08:21 | XMS_ITS | Continuity of Care Document ---
Author Name Unknown Organization [facility] Adult Medicine Address [address] [place] [address]- Care Team Providers Care Director Clinical Pharmacology Name Role Phone Richardson QUIROZ, Leonora Pérez Primary Care Physician [phone] [facility] 06[facility]14/20 - 07/14/20 [facility] [address], [place] [address] Allergies, Adverse Reactions, Alerts Substance Reaction [...] 14:12:00 EST, Powder, Route to Pharmacy Electronically, [id number], [facility]/pharmacy #[id number], 162.56, cm, 03/27/20 11:36:00... Start Date: 04/05/20 Status: Ordered albuterol 0.083% inhalation solution 3 mL = 2.5 mg, Inhalation, Every 4 hours, PRN for wheezing, # 100 each, 5 Refills, Maintenance, 06/27/19 14:32:00 EDT, Solution, [facility]/pharmacy #[id number], 160, cm, 06/01/19 14:08:00 EST, Height, 88.9, kg, 05/23/19 22:09:00 EST, Dry Weight Start Date: 06/27/19 Status: Ordered amitriptyline 50 mg oral tablet 1 tablet = 50 mg, By Mouth, Daily at bedtime, # 30 tablet, 5 Refills, Maintenance, 12/30/19 18:21:00 EDT, Tablet, [facility]/pharmacy #[id number], 163, cm, 12/26/19 13:58:00 EDT, Height, 80, kg, 10/29/19 0:29:00 EDT, Dry Weight Start Date: 12/30/19 Status: Ordered atorvastatin 20 mg oral tablet 1 tablet = 20 mg, By Mouth, Daily, # 90 tablet, 3 Refills, Maintenance, 04/05/20 14:11:00 EST, Tablet, [facility]/pharmacy #[id number], Partial fill upon patient request if the prescription is for a schedule II opioid drug., 162.56, cm, 03/27/20 11:36:00 EST, Heig... Start Date: 04/05/20 Status: Ordered capsaicin 0.025% topical cream 1 application, Topically, 3 times a day, # 45 Gm, 3 Refills, Maintenance, 11/01/19 15:25:00 EDT, Cream, [facility]/pharmacy #[id number], 1 application Topically 3 times a day, 163, cm, 11/01/19 14:40:00 EDT, Height, 80, kg, 10/29/19 0:29:00 EDT, Dry Weight Start Date: 11/01/19 Status: Ordered cetirizine 10 mg oral tablet 1 tablet = 10 mg, By Mouth, Daily, # 30 tablet, 5 Refills, Maintenance, 06/20/20 13:18:00 EDT, Tablet, [facility]/pharmacy #[id number], 162, cm, 05/24/20 [...] mL, 11 Refills, Maintenance, 05/07/20 13:24:00 EST,Solution, [facility]/pharmacy #[id number], increased dose 12/26/19, [...] 05/07/20 13:30:00 EST, Route to Pharmacy Electronically, [facility]/pharmacy #[id number], 162, cm, 04/21/20 11:33:00 EST, Height, 80, kg, 04/18/20 9:48:00 EST, Dry Weight Start Date: 05/07/20 Status: Ordered Mapap 325 mg oral tablet 2 tablet = 650 mg, By Mouth, Every 4 hours, PRN for pain, not to exceed 3000 mg/day. instructions in angolan, # 120 tablet, 2 Refills, Maintenance, 11/01/19 15:24:00 EDT, Tablet, [facility]/pharmacy #[id number], 163, cm, 11/01/19 [...] 2 Refills, Maintenance, 04/05/20 14:08:00 EST, Tablet, [facility]/pharmacy #[id number], Partial fill upon patient request if the prescription is for a schedule II opioid drug., 162.56, cm, ... Start Date: 04/05/20 Status: Ordered omeprazole 40 mg oral enteric coated capsule 1 capsule = 40 mg, By Mouth, Daily, # 30 capsule, 3 Refills, Maintenance, 05/24/20 9:40:00 EST, EC Capsule, [facility]/pharmacy #[id number], note dose increase, [...] day, for 28 days, on contract at [facility], # 56 tablet, 0 Refills, Acute 07/30/20 8:00:00 EDT, 07/02/20 8:00:00 EDT, [facility]/pharmacy #[id number], Partial fill upon patient request if the prescription is for a schedule II opioi... Start Date: 07/02/20 Stop Date: 07/30/20 Status: Ordered Senna 8.6 mg oral tablet 8.6 mg, 1, tablet, By Mouth, Daily at bedtime, # 100 tablet, Refills 2, Tot. Refills 2, Maintenance, 06/04/20 12:46:00 EST, Route to Pharmacy Electronically, [facility]/pharmacy #[id number], 162, cm, 05/24/20 9:01:00 EST, Height, 80, kg, 04/18/20 9:48:00 EST, Dry... Start Date: 06/04/20 Status: Ordered Soma 350 mg oral tablet 350 mg, 1, tablet, By Mouth, 3 times a day, # 9 tablet, Refills 0, Tot. Refills 0, Maintenance, 05/04/20 15:46:00 EST, Route to Pharmacy Electronically, [facility]/pharmacy #[id number], Partial fill upon patient request if the prescription is for a schedule II opi... Start Date: 05/04/20 Status: Ordered Spiriva Respimat 60 ACT 2.5 mcg/inh inhalation aerosol 2 puffs, Inhalation, Daily, # 1 each, 11 Refills, Maintenance, 04/05/20 14:17:00 EST, [facility]/pharmacy #[id number], Partial fill upon [...] 05/03/20 11:26:00 EST, [id number] 162, cm, 04/21/20 11:33:00 EST, [...] [address] Abd 09/18/16 at [facility], pending MRI 3urge and stress Social History Social History Type Response Tobacco Use: Pt states she q uit smoking 1 week ago. Sex
--- OUTSIDE RECORDS SUMMARY | 2023-03-25 08:21 | XMS_ITS | Continuity of Care Document ---
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 Start Date: 04/05/20 Status: Ordered albuterol 0.083% inhalation solution 3 mL = 2.5 mg, Inhalation, Every 4 hours, PRN for wheezing, # 100 each, 5 Refills, Maintenance, 06/27/19 14:32:00 EDT, Solution, [facility]/pharmacy #[id number], 160, cm, 06/01/19 14:08:00 EST, Height, 88.9, kg, 05/23/19 22:09:00 EST, Dry Weight Start Date: 06/27/19 Status: Ordered amitriptyline 50 mg oral tablet 1 tablet = 50 mg, By Mouth, Daily at bedtime, # 30 tablet, 5 Refills, Maintenance, 12/30/19 18:21:00 EDT, Tablet, [facility]/pharmacy #[id number], 163, cm, 12/26/19 13:58:00 EDT, Height, 80, kg, 10/29/19 0:29:00 EDT, Dry Weight Start Date: 12/30/19 Status: Ordered atorvastatin 20 mg oral tablet 1 tablet = 20 mg, By Mouth, Daily, # 90 tablet, 3 Refills, Maintenance, 04/05/20 14:11:00 EST, Tablet, [facility]/pharmacy #[id number], Partial fill upon patient request if the prescription is for a schedule II opioid drug., 162.56, cm, 03/27/20 11:36:00 EST, Heig... Start Date: 04/05/20 Status: Ordered capsaicin 0.025% topical cream 1 application, Topically, 3 times a day, # 45 Gm, 3 Refills, Maintenance, 11/01/19 15:25:00 EDT, Cream, [facility]/pharmacy #[id number], 1 application Topically 3 times a day, 163, cm, 11/01/19 14:40:00 EDT, Height, 80, kg, 10/29/19 0:29:00 EDT, Dry Weight Start Date: 11/01/19 Status: Ordered cetirizine 10 mg oral tablet 1 tablet = 10 mg, By Mouth, Daily, # 30 tablet, 5 Refills, Maintenance, 06/20/20 13:18:00 EDT, Tablet, [facility]/pharmacy #[id number], 162, cm, 05/24/20 9:01:00 EST, Height, 80, kg, 04/18/20 9:48:00 EST, Dry Weight Start Date: 06/20/20 Status: Ordered clonazePAM 0.5 mg oral tablet TAKE 1 TABLET BY MOUTH TWICE A DAY NEEDED Start Date: 06/02/19 Status: Ordered clotrimazole 1% topical cream 1 application, Topically, 2 times a day, # 30 Gm, 1 Refills, Maintenance, 06/04/20 12:46:00 EST, Cream, [facility]/pharmacy #[id number], 1 application Topically 2 times [...] 5 Refills, Maintenance, 03/02/20 11:18:00 EST, Capsule, [facility]/pharmacy #[id number], Partial fill upon patient request. [...] mL, 11 Refills, Maintenance, 05/07/20 13:24:00 EST,Solution, [facility]/pharmacy #[id number], increased dose 12/26/19, 162, cm, 04/21/20 11:33:00 EST, Height, 80, kg, 04/18/20 9:48:00 EST, Dry Weight Start Date: 05/07/20 Status: Ordered lidocaine 5% topical film 1 patch, Topically, Daily, For chronic radicular back pain, # 30 patch, 5 Refills, Maintenance, 03/09/20 8:53:00 EST, [facility]/pharmacy #[id number], 1 patch Topically Daily,Instr:For chronic radicular back pain, 163, cm, 12/26/19 13:58:00 EDT, Height, 80, kg, 07... Start Date: 03/09/20 Status: Ordered lisinopril 20 mg oral tablet 20 mg, 1, tablet, By Mouth, Daily, # 30 tablet, Refills 11, Tot. Refills 11, Maintenance, 05/07/20 13:30:00 EST, Route to Pharmacy Electronically, [facility]/pharmacy #[id number], 162, cm, 04/21/20 11:33:00 EST, Height, 80, kg, 04/18/20 9:48:00 EST, Dry Weight Start Date: 05/07/20 Status: Ordered Mapap 325 mg oral tablet 2 tablet = 650 mg, By Mouth, Every 4 hours, PRN for pain, not to exceed 3000 mg/day. instructions in kazakh, # 120 tablet, 2 Refills, Maintenance, 11/01/19 15:24:00 EDT, Tablet, [facility]/pharmacy #[id number], 163, cm, 11/01/19 14:40:00 EDT, [...] 2 Refills, Maintenance, 04/05/20 14:08:00 EST, Tablet, [facility]/pharmacy #[id number], Partial fill upon patient request if the prescription is for a schedule II opioid drug., 162.56, cm, ... Start Date: 04/05/20 Status: Ordered omeprazole 40 mg oral enteric coated capsule 1 capsule = 40 mg, By Mouth, Daily, # 30 capsule, 3 Refills, Maintenance, 05/24/20 9:40:00 EST, EC Capsule, [facility]/pharmacy #[id number], note dose increase, 162, cm, [...] day, for 28 days, on contract at [facility], # 56 tablet, 0 Refills, Acute 07/30/20 8:00:00 EDT, 07/02/20 8:00:00 EDT, [facility]/pharmacy #[id number], Partial fill upon patient request if the prescription is for a schedule II opioi... Start Date: 07/02/20 Stop Date: 07/30/20 Status: Ordered Senna 8.6 mg oral tablet 8.6 mg, 1, tablet, By Mouth, Daily at bedtime, # 100 tablet, Refills 2, Tot. Refills 2, Maintenance, 06/04/20 12:46:00 EST, Route to Pharmacy Electronically, [facility]/pharmacy #[id number], 162, cm, 05/24/20 9:01:00 EST, Height, 80, kg, 04/18/20 9:48:00 EST, Dry... Start Date: 06/04/20 Status: Ordered Soma 350 mg oral tablet 350 mg, 1, tablet, By Mouth, 3 times a day, # 9 tablet, Refills 0, Tot. Refills 0, Maintenance, 05/04/20 15:46:00 EST, Route to Pharmacy Electronically, [facility]/pharmacy #[id number], Partial fill upon patient request if the prescription is for a schedule II opi... Start Date: 05/04/20 Status: Ordered Spiriva Respimat 60 ACT 2.5 mcg/inh inhalation aerosol 2 puffs, Inhalation, Daily, # 1 each, 11 Refills, Maintenance, 04/05/20 14:17:00 EST, [facility]/pharmacy #[id number], Partial fill upon patient request if the prescription is for a schedule II opioid drug., 162.56, cm, 03/27/20 11:36:00 EST, Height, 81.81, kg, 12... Start Date: 04/05/20 Status: Ordered tiZANidine 4 mg oral tablet 4 mg, 1, tablet, By Mouth, Every 8 hours, PRN, # 84 tablet, Refills 1, Tot. Refills 1, Maintenance,Spasm, 05/03/20 11:26:00 EST, [id number], cm, 04/21/20 11:33:00 EST, [...] 2[place] CT [place] [facility] 3urge and stress Social History Social History Type Response Tobacco Use: Pt states she q uit smoking 1 week ago. Sex
--- OUTSIDE RECORDS SUMMARY | 2023-03-25 08:21 | XMS_ITS | Continuity of Care Document ---
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 Role Phone Richardson QUIROZ, Leonora Pérez Primary Care Physician [phone] [facility] Date(s): 09/30/21 - 10/30/21 [facility] Adult Medicine [address], [place] [address] Allergies, Adverse Reactions, Alerts Substance Reaction Severity Status morphine Active gabapentin swelling Active MetFORMIN Hydrochloride ER black tarry stool Active Lyrica dysphagia Active SEROquel body swelling - all over Act tony Immunizations Given and Recorded Vaccine Date Status Refusal Reason SARS-CoV-2 mRNA ([id number]) vax 05/14/21 Given influenza virus vaccine, inactivated [...] 9:23:00 EDT, Route to Pharmacy Electronically, [facility], Partial fill uponpatient request if the prescription is for a schedu... Start Date: 10/22/21 Status: Ordered Advair Diskus 500 mcg-50 mcg inhalation powder 1, puffs, Inhalation, 2 times a day, [id number], # 1 each, Refills 5, Tot. Refills 5, Maintenance, 05/15/21 9:20:00 EST, Powder, Route to Pharmacy Electronically, [id number], [facility], 162.5, cm, 05/10/21 14:47... Start Date: 05/15/21 Status: Ordered albuterol 0.083% inhalation solution 3 mL = 2.5 mg, Inhalation, Every 4 hours, PRN for wheezing, # 100 each, 2 Refills, Maintenance, 05/15/21 9:30:00 EST, Solution, [facility], 162.5, cm, 05/10/21 14:47:00 EST, Height, 90.9, kg, 02/02/21 5:59:00 EDT, Dry Weight Start Date: 05/15/21 Status: Ordered amitriptyline 25 mg oral tablet 25 mg, 1, tablet, By Mouth, Daily at bedtime, # 30 tablet, Refills 2, Tot. Refills 2, Maintenance, 08/30/21 12:06:00 EDT, Route to Pharmacy Electronically, [facility], Partial fill upon patient request if the prescription is for a sche... Start Date: 08/30/21 Status: Ordered cetirizine 10 mg oral tablet 1 tablet = 10 mg, By Mouth, Daily, # 30 tablet, 5 Refills, Maintenance, 08/28/21 9:07:00 EDT, Tablet, [facility], 162, cm, 08/22/21 9:46:00 EDT, Height, 86, kg, 07/23/21 0:58:00 EDT, Dry Weight Start Date: 08/28/21 Status: Ordered cholecalciferol 5000 intl units oral capsule 1 capsule = 125 mcg, By Mouth, Daily, with food, # 100 capsule, 2 Refills, Maintenance, 02/11/21 11:17:00 EST, Capsule, [facility]/pharmacy #[id number], Partial fill upon [...] 1 Refills, Maintenance, 07/08/21 9:45:00 EDT, Cream, [facility]., PLEASE CANCEL ESTRADIOL VAGINAL CREAM, 1 [...] tablet, 0 Refills, Maintenance, 10/24/2219:09:00 EDT, Tablet, [facility], Partial fill upon patient request if the prescription is for a schedule II opioid drug., 2 tablet By... Start Date: 10/23/21 Status: Ordered duloxetine 60 mg oral enteric coated capsule 2 capsule = 120 mg, By Mouth, Daily, # 60 capsule, 5 Refills, Maintenance, 10/21/21 21:05:00 EDT, Capsule, [facility] Partial fill upon patient request. NOT INCREASED DOSE, 162, cm, 10/10/21 9:11:00 EDT, Height, 86, kg, 07/23/21 0:58:... Start Date: 10/21/21 Status: Ordered empagliflozin 10 mg oral tablet 1 tablet = 10 mg, By Mouth, Daily in AM, # 30 tablet, 5 Refills, Maintenance, 08/28/21 9:07:00 EDT,Tablet, [facility]., Partial fill upon patient request if the prescription is for a schedule II opioid drug., 162, cm, 08/22/21 9:46:00... Start Date: 08/28/21 Status: Ordered fluticasone 50 mcg/inh nasal spray See Instructions, USE 1 SPRAY IN BOTH NOSTRILS 2 TIMES A DAY, # 16 mL, 1 Refills, 07/08/21 9:44:00 EDT, [facility]., 30, USE 1 SPRAY IN BOTH [...] capsule, 2 Refills, Maintenance, 08/28/21 9:07:00 EDT, [facility]., 162, cm, 08/22/21 9:46:00 EDT, Height, 86, kg, 07/23/21 0:58:00 EDT, Dry Weight Start Date: 08/28/21 Status: Ordered ibuprofen 800 mg oral tablet 800 mg, 1, tablet, By Mouth, 3 times a day, PRN, # 90 tablet, Refills 1, Tot. Refills 1, Maintenance, Pain , Mild, 10/22/21 9:23:00 EDT, Route to Pharmacy Electronically, [facility], please fill 800mg instead of 600mg, 162, cm, ... Start Date: 10/22/21 Status: Ordered Insulin Syringe, BD Ultra-Fine 0.5 [...] Refills, Maintenance, 06/18/21 21:04:00 EDT, Tablet, [facility], 162.5, cm, 06/17/21 13:04:00 EDT, Height, 85.8, kg, 06/04/21 10:03:00 EST, Dry Weight Start Date: 06/18/21 Status: Ordered Lantus 100 u/ml subcutaneous solution = 50 units, Subcutaneous Injection, Daily, # 15 mL, 5 Refills, Maintenance, 07/08/21 9:38:00 EDT, Solution, [facility], ;, 162.5, cm, 07/08/21 8:49:00 EDT, Height, 85.8, kg, 06/04/21 10:03:00 EST, Dry Weight Start Date: 07/08/21 Status: Ordered lisinopril 20 mg oral tablet 20 mg, 1, tablet, By Mouth, Daily, # 90 tablet, Refills 3, Tot. Refills 3, Maintenance, 08/28/21 9:07:00 EDT, Route to Pharmacy Electronically, [facility], 162, cm, 08/22/21 9:46:00 EDT, Height, 86, kg, 07/23/21 0:58:00 EDT, Dry Weight Start Date: 08/28/21 Status: Ordered mirtazapine 30 mg oral tablet 1 tablet = 30 mg, By Mouth, Daily at bedtime, Maintenance, 05/24/19 9:12:00 EST, Tablet Start Date: 05/24/19 Status: Ordered omeprazole 40 mg oral enteric coated capsule 1 capsule, By Mouth, Daily, PRN NEEDED, # 30 capsule, 2 Refills, [facility], 162, cm, 09/06/21 13:04:00 EDT, Height, 86, kg, 07/23/21 0:58:00 EDT, Dry Weight Start Date: 10/02/21 Status: Ordered OxyCONTIN 30 mg oral tablet, extended release 1 tablet = 30 mg, By Mouth, Every 12 hours, # 56 tablet, 0 Refills, Maintenance, 10/29/21 17:34:00 EDT, ER Tablet, [facility]/pharmacy #[id number], Partial fill upon patient request if the prescription is for a schedule II opioid drug. ON contract at [facility], 30mg E... Start Date: 10/29/21 Stop Date: 11/26/21 Status: Ordered Senna 8.6 mg oral tablet 8.6 mg, 1, tablet, By Mouth, Daily at bedtime, # 100 tablet, Refills 11, Tot. Refills 11, Maintenance, 07/08/21 9:39:00 EDT, Route to Pharmacy Electronically, [facility], 162.5, cm, 07/08/21 8:49:00 EDT, Height, 85.8, kg, 06/04/21 10:0... 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
--- OUTSIDE RECORDS SUMMARY | 2023-03-25 08:22 | XMS_ITS | Continuity of Care Document ---
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 Role Phone Richardson QUIROZ, Leonora Pérez Primary Care Physician [phone] Encounter [facility] Date(s): 10/31/21 - 11/30/21 [facility] [address], [place] [address] Allergies, Adverse Reactions, Alerts Substance Reaction Severity Status morphine Active gabapentin swelling Active Lyrica dysphagia Active SEROquel body swelling - all over Act tony MetFORMIN Hydrochloride ER black tarry stool Active Immunizations Given and Recorded Vaccine Date Status Refusal Reason SARS-CoV-2 mRNA ([id number]) vax 05/14/21 Given influenza virus vaccine, inactivated [...] 10/22/21 9:23:00 EDT, Route to Pharmacy Electronically, [facility], Partial fill uponpatient request if the prescription is for a schedu... Start Date: 10/22/21 Status: Ordered Advair Diskus 500 mcg-50 mcg inhalation powder 1, puffs, Inhalation, 2 times a day, j45.909, # 1 each, Refills 5, Tot. Refills 5, Maintenance, 05/15/21 9:20:00 EST, Powder, Route to Pharmacy Electronically, [id number], [facility], 162.5, cm, 05/10/21 14:47... Start Date: 05/15/21 Status: Ordered albuterol 0.083% inhalation solution 3 mL = 2.5 mg, Inhalation, Every 4 hours, PRN for wheezing, # 100 each, 2 Refills, Maintenance, 11/22/21 12:30:00 EDT, Solution, [facility], 162, cm, 11/14/21 11:01:00 EDT, Height, 86, kg, 07/23/21 0:58:00 EDT, Dry Weight Start Date: 11/22/21 Status: Ordered amitriptyline 25 mg oral tablet 25 mg, 1, tablet, By Mouth, Daily at bedtime, # 30 tablet, Refills 2, Tot. Refills 2, Maintenance, 08/30/21 12:06:00 EDT, Route to Pharmacy Electronically, [facility], Partial fill upon patient request if [...] 5 Refills, Maintenance, 08/28/21 9:07:00 EDT, Tablet, [facility] 162, cm, 08/22/21 9:46:00 EDT, Height, 86, kg, 07/23/21 0:58:00 EDT, Dry Weight Start Date: 08/28/21 Status: Ordered cholecalciferol 5000 intl units oral capsule 1 capsule = 125 mcg, By Mouth, Daily, with food, # 100 capsule, 2 Refills, Maintenance, 02/11/21 11:17:00 EST, Capsule, [facility]/pharmacy #[id number], Partial fill upon patient [...] 1 Refills, Maintenance, 07/08/21 9:45:00 EDT, Cream, [facility]., PLEASE CANCEL ESTRADIOL VAGINAL CREAM, 1 [...] tablet, 0 Refills, Maintenance, 10/24/2219:09:00 EDT, Tablet, [facility] Partial fill upon patient request if the prescription is for a schedule II opioid drug., 2 tablet By... Start Date: 10/23/21 Status: Ordered duloxetine 60 mg oral enteric coated capsule 2 capsule = 120 mg, By Mouth, Daily, # 60 capsule, 5 Refills, Maintenance, 11/14/21 11:41:00 EDT, Capsule, [facility] Partial fill upon patient request. NOT INCREASED DOSE. Please cancel all other Duloxetine scripts, 162, cm, 11/14/21... Start Date: 11/14/21 Status: Ordered empagliflozin 10 mg oral tablet 1 tablet = 10 mg, By Mouth, Daily in AM, # 30 tablet, 5 Refills, Maintenance, 08/28/21 9:07:00 EDT,Tablet, [facility] Partial fill upon patient request if the prescription is for a schedule II opioid drug., 162, cm, 08/22/21 9:46:00... Start Date: 08/28/21 Status: Ordered fluticasone 50 mcg/inh nasal spray See Instructions, USE 1 SPRAY IN BOTH NOSTRILS 2 TIMES A DAY, # 16 mL, 1 Refills, 07/08/21 9:44:00 EDT, [facility] 30, USE 1 SPRAY [...] Mouth, Daily, # 30 tablet, 5 Refills, [facility], 162, cm, 11/14/21 11:01:00EDT, Height, 86, kg, 07/23/21 0:58:00 EDT, Dry Weight Start Date: 11/19/21 Status: Ordered ibuprofen 800 mg oral tablet 800 mg, 1, tablet, By Mouth, 3 times a day, PRN, # 90 tablet, Refills 1, Tot. Refills 1, Maintenance, Pain , Mild, 10/31/21 13:59:00 EDT, Route to Pharmacy Electronically, [facility],please fill 800mg instead of 600mg, 162, [...] 3 Refills, Maintenance, 06/18/21 21:04:00 EDT, Tablet, [facility], 162.5, cm, 06/17/21 13:04:00 EDT, Height, 85.8, kg, 06/04/21 10:03:00 EST, Dry Weight Start Date: 06/18/21 Status: Ordered Lantus 100 u/ml subcutaneous solution = 50 units, Subcutaneous Injection, Daily, # 15 mL, 5 Refills, Maintenance, 07/08/21 9:38:00 EDT, Solution, [facility], ;, 162.5, cm, 07/08/21 8:49:00 EDT, Height, 85.8, kg, 06/04/21 10:03:00 EST, Dry Weight Start Date: 07/08/21 Status: Ordered lisinopril 20 mg oral tablet 20 mg, 1, tablet, By Mouth, Daily, # 90 tablet, Refills 3, Tot. Refills 3, Maintenance, 08/28/21 9:07:00 EDT, Route to Pharmacy Electronically, [facility], 162, cm, 08/22/21 9:46:00 EDT, Height, 86, kg, 07/23/21 0:58:00 EDT, Dry Weight Start Date: 08/28/21 Status: Ordered Melatonin 10 mg oral tablet 1 tablet = 10 mg, By Mouth, Daily at bedtime, # 30 each, 5 Refills, Maintenance, 11/14/21 11:42:00 EDT, [facility], Partial fill upon patient request if [...] PRN NEEDED, # 30 capsule, 2 Refills, [facility], 162, cm, 09/06/21 13:04:00 EDT, Height, 86, kg, 07/23/21 0:58:00 EDT, Dry Weight Start Date: 10/02/21 Status: Ordered OxyCONTIN 15 mg oral tablet, extended release 1 tablet = 15 mg, By Mouth, Every 12 hours, # 56 tablet, 0 Refills, Maintenance, 11/26/21 8:00:00 EDT, ER Tablet, [facility], Partial fill upon patient request if the prescription is for a schedule II opioid drug. For fill 11/26/21, dos... Start Date: 11/26/21 Stop Date: 12/24/21 Status: Ordered OxyCONTIN 30 mg oral tablet, extended release 1 tablet = 30 mg, By Mouth, Every 12 hours, # 56 tablet, 0 Refills, Maintenance, 10/29/21 17:34:00 EDT, ER Tablet, [facility]/pharmacy #[id number], Partial fill upon patient request if the prescription is for a schedule II opioid drug. ON contract at [facility], 30mg E... Start Date: 10/29/21 Stop Date: 11/26/21 Status: Ordered Senna 8.6 mg oral tablet 8.6 mg, 1, tablet, By Mouth, Daily at bedtime, # 100 tablet, Refills 11, Tot. Refills 11, Maintenance, 07/08/21 9:39:00 EDT, Route to Pharmacy Electronically, [facility], 162.5, cm, 07/08/21 8:49:00 EDT, Height, 85.8, kg, 06/04/21 10:0... Start Date: 07/08/21 Status: Ordered Tessalon Perles 100 mg oral capsule 1 capsule = 100 mg, By Mouth, 3 times a day, for 10 days, # 30 capsule, 0 Refills, Acute 12/02/21 13:25:00 EDT, 11/22/21 13:25:00 EDT, Capsule, [facility], Partial fill upon patient request if the prescription is for a schedule II opio... 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
--- OUTSIDE RECORDS SUMMARY | 2023-03-25 08:22 | XMS_ITS | Continuity of Care Document ---
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 Start Date: 01/16/21 Status: Ordered Advair Diskus 500 mcg-50 mcg inhalation powder 1, puffs, Inhalation, 2 times a day, j45.909, # 1 each, Refills 11, Tot. Refills 11, Maintenance, 04/05/20 14:12:00 EST, Powder, Route to Pharmacy Electronically, [id number], [facility]/pharmacy #[id number], 162.56, cm, 03/27/20 11:36:00... Start Date: 04/05/20 Status: Ordered albuterol 0.083% inhalation solution 3 mL = 2.5 mg, Inhalation, Every 4 hours, PRN for wheezing, # 100 each, 2 Refills, Maintenance, 08/15/20 10:22:00 EDT, Solution, [facility]/pharmacy #[id number], 163, cm, 08/09/20 8:45:00 EDT, Height, 84.8, kg, 06/25/20 20:28:00 EDT, Dry Weight Start Date: 08/15/20 Status: Ordered amitriptyline 50 mg oral tablet See Instructions, 1.5 tablets by Mouth Daily at bedtime, # 45 each, 1 Refills, 03/21/21 16:11:00 EST, [facility]/pharmacy #[id number], 162.5, cm, 03/14/21 10:31:00 EST, Height, 90.9, kg, 02/02/21 5:59:00 EDT, DryWeight Start Date: 03/21/21 Status: Ordered atorvastatin 20 mg oral tablet 3 tablet = 60 mg, By Mouth, Daily, # 90 tablet, 3 Refills, Maintenance, 04/05/20 14:11:00 EST, Tablet, [facility]/pharmacy #[id number], Partial fill upon patient request if the prescription is for a schedule II opioid drug., 162.56, cm, 03/27/20 11:36:00 EST, Heig... Start Date: 04/05/20 Status: Ordered capsaicin 0.025% topical cream 1 application, Topically, 3 times a day, # 45 Gm, 3 Refills, Maintenance, 11/01/19 15:25:00 EDT, Cream, [facility]/pharmacy #[id number], 1 application Topically 3 times a day, 163, cm, 11/01/19 14:40:00 EDT, Height, 80, kg, 10/29/19 0:29:00 EDT, Dry Weight Start Date: 11/01/19 Status: Ordered cetirizine 10 mg oral tablet 1 tablet = 10 mg, By Mouth, Daily, # 30 tablet, 5 Refills, Maintenance, 06/20/20 13:18:00 EDT, Tablet, [facility]/pharmacy #[id number], 162, cm, 05/24/20 9:01:00 EST, Height, 80, kg, 04/18/20 9:48:00 EST, Dry Weight Start Date: 06/20/20 Status: Ordered cholecalciferol 5000 intl units oral capsule 1 capsule = 125 mcg, By Mouth, Daily, with food, # 100 capsule, 2 Refills, Maintenance, 02/11/21 11:17:00 EST, Capsule, [facility]/pharmacy #[id number], Partial fill upon patient request [...] 1 Refills, Maintenance, 12/05/20 12:42:00 EDT, Cream, [facility]/pharmacy #[id number], 1 application Topically 2 times [...] DAY, # 16 mL, 1 Refills, Maintenance, [id number], 30, USE 1 SPRAY IN BOTH NOSTRILS [...] 2 Refills, Maintenance, 03/01/21 12:42:00 EST, Tablet, [facility]/pharmacy #[id number], 155, cm, 02/18/21 14:54:00 EST, Height, 90.9, kg, 02/02/21 5:59:00 EDT, DryWeight Start Date: 03/01/21 Status: Ordered Lantus 100 u/ml subcutaneous solution = 40 units, Subcutaneous Injection, Daily, # 12 mL, 2 Refills, Maintenance, 03/01/21 12:42:00 EST, Solution, [facility]/pharmacy #[id number], increased dose 12/26/19, 155, cm, 02/18/21 14:54:00 EST, Height, 90.9, kg, 02/02/21 5:59:00 EDT, Dry Weight Start Date: 03/01/21 Status: Ordered lidocaine 5% topical film 1 patch, Topically, Daily, For chronic radicular back pain, # 30 patch, 5 Refills, Maintenance, 10/11/20 8:15:00 EDT, [facility]/pharmacy #[id number], 1 patch Topically Daily,Instr:For chronic radicular back pain, 163, cm, 08/15/20 14:23:00 EDT, Height, 84.8, kg,... Start Date: 10/11/20 Status: Ordered lisinopril 20 mg oral tablet 20 mg, 1, tablet, By Mouth, Daily, # 90 tablet, Refills 3, Tot. Refills 3, Maintenance, 04/12/21 13:24:00 EST, Route to Pharmacy Electronically, [facility]/pharmacy #[id number], 162.5, cm, 03/22/21 14:58:00 EST, [...] 0 Refills, Maintenance, 08/15/20 15:59:00 EDT, Capsule, [facility]/pharmacy #[id number], Partial fill upon patient request if the prescription is for a schedule II opioid drug., 163, cm, 08/15/20 14:23:00 EDT, Teddy. Start Date: 08/15/20 Status: Ordered mirabegron 25 [...] 1 Refills, Maintenance, 01/31/21 14:16:00 EDT, Tablet, [facility], Partial fill upon patient request if the prescription is for a schedule II opioid drCain Start Date: 01/31/21 Status: Ordered omeprazole 40 mg oral enteric coated capsule 1 capsule = 40 mg, By Mouth, Daily, PRN Dyspepsia, # 90 capsule, 0 Refills, Maintenance, 01/11/21 13:46:00 EDT, EC Capsule, [facility]/pharmacy #[id number], 165, cm, 12/31/20 14:56:00 EDT, Height, 87.6, kg, 12/31/20 14:56:00 EDT, Dry Weight Start Date: 01/11/21 Status: Ordered oxyCODONE 15 mg oral tablet 1 tablet = 15 mg, By Mouth, 2 times a day, for 28 days, # 56 tablet, 0 Refills, Acute 04/19/21 11:49:00 EST, 03/22/21 11:49:00 EST, [facility]acy #[id number], Client on contract at [facility], failed Morphine, switching to oxycodone 15mg BID [...] 10/30/20 11:37:00 EDT, Route to Pharmacy Electronically, [facility]/pharmacy #[id number], 163, cm, 08/15/20 14:23:00 EDT, Height, 84.8, kg, 06/25/20 20:28:00 EDT... Start Date: 10/30/20 Status: Ordered Spiriva Respimat 60 ACT 2.5 mcg/inh inhalation aerosol 2 puffs, Inhalation, Daily, # 1 each, 11 Refills, Maintenance, 04/05/20 14:17:00 EST, [facility]/pharmacy #[id number], Partial fill upon patient request [...] 12/05/20 12:45:00 EDT, Route to Pharmacy Electronically, [facility]/pharmacy #[id number], 165, cm, 11/22/20 8:40:00 EDT, Height, 84.8, kg, 06/25/20 20:28:00... 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
--- OUTSIDE RECORDS SUMMARY | 2023-03-25 08:22 | XMS_ITS | Continuity of Care Document ---
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 Start Date: 04/05/20 Status: Ordered albuterol 0.083% inhalation solution 3 mL = 2.5 mg, Inhalation, Every 4 hours, PRN for wheezing, # 100 each, 5 Refills, Maintenance, 06/27/19 14:32:00 EDT, Solution, [facility]/pharmacy #[id number], 160, cm, 06/01/19 14:08:00 EST, Height, 88.9, kg, 05/23/19 22:09:00 EST, Dry Weight Start Date: 06/27/19 Status: Ordered amitriptyline 50 mg oral tablet 1 tablet = 50 mg, By Mouth, Daily at bedtime, # 30 tablet, 5 Refills, Maintenance, 12/30/19 18:21:00 EDT, Tablet, [facility]/pharmacy #[id number], 163, cm, 12/26/19 13:58:00 EDT, Height, 80, kg, 10/29/19 0:29:00 EDT, Dry Weight Start Date: 12/30/19 Status: Ordered atorvastatin 20 mg oral tablet 1 tablet = 20 mg, By Mouth, Daily, # 90 tablet, 3 Refills, Maintenance, 04/05/20 14:11:00 EST, Tablet, [facility]/pharmacy #[id number], Partial fill upon patient request if the prescription is for a schedule II opioid drug., 162.56, cm, 03/27/20 11:36:00 EST, Heig... Start Date: 04/05/20 Status: Ordered capsaicin 0.025% topical cream 1 application, Topically, 3 times a day, # 45 Gm, 3 Refills, Maintenance, 11/01/19 15:25:00 EDT, Cream, [facility]/pharmacy #[id number], 1 application Topically 3 times a day, 163, cm, 11/01/19 14:40:00 EDT, Height, 80, kg, 10/29/19 0:29:00 EDT, Dry Weight Start Date: 11/01/19 Status: Ordered cetirizine 10 mg oral tablet 1 tablet = 10 mg, By Mouth, Daily, # 30 tablet, 5 Refills, Maintenance, 12/13/19 18:32:00 EDT, Tablet, [facility]/pharmacy #[id number], 163, cm, 12/13/19 15:57:00 EDT, Height, 80, kg, 10/29/19 0:29:00 EDT, Dry Weight Start Date: 12/13/19 Status: Ordered clonazePAM 0.5 mg oral tablet TAKE 1 TABLET BY MOUTH TWICE A DAY NEEDED Start Date: 06/02/19 Status: Ordered clotrimazole 1% topical cream 1 application, Topically, 2 times a day, # 30 Gm, 1 Refills, Maintenance, 02/03/20 13:47:00 EDT, Cream, [facility]/pharmacy #[id number], 1 application Topically 2 times a [...] 5 Refills, Maintenance, 03/09/20 8:53:00 EST, [facility]/pharmacy #[id number], 1 patch Topically Daily,Instr:For chronic radicular back pain, 163, cm, 12/26/19 13:58:00 EDT, Height, 80, kg, 07... Start Date: 03/09/20 Status: Ordered lisinopril 20 mg oral tablet 20 mg, 1, tablet, By Mouth, Daily, # 30 tablet, Refills 11, Tot. Refills 11, Maintenance, 05/07/20 13:30:00 EST, Route to Pharmacy Electronically, [facility]/pharmacy #[id number], 162, cm, 04/21/20 11:33:00 EST, Height, 80, kg, 04/18/20 9:48:00 EST, Dry Weight Start Date: 05/07/20 Status: Ordered Mapap 325 mg oral tablet 2 tablet = 650 mg, By Mouth, Every 4 hours, PRN for pain, not to exceed 3000 mg/day. instructions in guyanese, # 120 tablet, 2 Refills, Maintenance, 11/01/19 15:24:00 EDT, Tablet, [facility]/pharmacy #[id number], 163, cm, 11/01/19 14:40:00 EDT, Height, [...] Refills, Maintenance, 04/05/20 14:08:00 EST, Tablet, [facility]/pharmacy #[id number], Partial fill upon patient request if the prescription is for a schedule II opioid drug., 162.56, cm, ... Start Date: 04/05/20 Status: Ordered omeprazole 40 mg oral enteric coated capsule 1 capsule = 40 mg, By Mouth, Daily, # 30 capsule, 3 Refills, Maintenance, 05/24/20 9:40:00 EST, EC Capsule, [facility]/pharmacy #[id number], note dose increase, 162, cm, 05/24/20 [...] 05/31/20 17:54:00 EST, 05/03/20 17:54:00 EST, [facility]/pharmacy #[id number], Partial fill upon patient request if the prescription is for a schedule II opioid drug. Client on c... Start Date: 05/03/20 Stop Date: 05/31/20 Status: Ordered Senna 8.6 mg oral tablet 8.6 mg, 1, tablet, By Mouth, Daily at bedtime, # 100 tablet, Refills 2, Tot. Refills 2, Maintenance, 06/10/19 16:12:00 EST, Route to Pharmacy Electronically, [facility]/pharmacy #[id number], 160, cm, 06/01/19 14:08:00 EST, Height, 88.9, kg, 05/23/19 22:09:00 EST,... Start Date: 06/10/19 Status: Ordered Soma 350 mg oral tablet 350 mg, 1, tablet, By Mouth, 3 times a day, # 9 tablet, Refills 0, Tot. Refills 0, Maintenance, 05/04/20 15:46:00 EST, Route to Pharmacy Electronically, [facility]/pharmacy #[id number], Partial fill upon patient request if the prescription is for a schedule II opi... Start Date: 05/04/20 Status: Ordered Spiriva Respimat 60 ACT 2.5 mcg/inh inhalation aerosol 2 puffs, Inhalation, Daily, # 1 each, 11 Refills, Maintenance, 04/05/20 14:17:00 EST, [facility]/pharmacy #[id number], Partial fill upon patient request if the prescription is for a schedule II opioid drug., 162.56, cm, 03/27/20 11:36:00 EST, Height, 81.81, kg, 12... Start Date: 04/05/20 Status: Ordered tiZANidine 4 mg oral tablet 4 mg, 1, tablet, By Mouth, Every 8 hours, PRN, # 84 tablet, Refills 1, Tot. Refills 1, Maintenance,Spasm, 05/03/20 11:26:00 EST, Route to Pharmacy Electronically, [facility]/pharmacy #[id number], 162, cm, 04/21/20 11:33:00 EST, Height, [...]
--- OUTSIDE RECORDS SUMMARY | 2023-03-25 08:22 | XMS_ITS | Continuity of Care Document ---
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, Leonora Pérez Primary Care Physician [phone] [place] [facility] [place]): 06/23/22 - 07/23/22 [facility] [address] [place] [address]- Allergies, Adverse Reactions, Alerts Substance Reaction Severity Status morphine Active gabapentin swelling Active Lyrica dysphagia Active SEROquel body swelling - all over Act tony MetFORMIN Hydrochloride ER black tarry stool Active Immunizations Given and Recorded Vaccine Date Status Refusal Reason [id number] 12y+ bivalent booster vax 01/30/22 Given influenza virus vaccine, inactivated 01/30/22 Give n influenza virus vaccine, inactivated 02/04/21 Give n influenza virus vaccine, inactivated 1 04/19/20 Gi tonio influenza virus vaccine, inactivated 03/12/19 Give n influenza virus vaccine, inactivated 01/19/18 Give n influenza virus vaccine, inactivated 02/16/17 Give n pneumococcal 20-valent conjugate vaccine 12/26/21 Given SARS-CoV-2 mRNA ([id number]-fyxup) vax 05/14/21 Given SARS-CoV-2 (COVID-19) mRNA BNT-162b2 [...] 10/22/21 9:23:00 EDT, Route to Pharmacy Electronically, [facility], Partial fill uponpatient request if the [...] tablet, 5 Refills, Maintenance, 04/03/22 11:25:00 EST, [facility], 163, cm, 02/11/22 19:19:00 EST, Height, 83, kg, 02/11/22 19:19:00 EST, Dry Weight Start Date: 04/03/22 Status: Ordered amLODIPine 5 mg oral tablet 5 mg, 1, tablet, By Mouth, Daily, # 90 tablet, Refills 3, Tot. Refills 3, Maintenance, 04/29/22 11:56:00 EST, Route to Pharmacy Electronically, [facility], Partial fill upon patient request [...] 11 Refills, Maintenance, 02/21/22 10:35:00 EST, Tablet, [facility] Partial fill upon patient request if the prescription is for a schedule II opioid drug., 2 tablet By... Start Date: 02/21/22 Status: Ordered duloxetine 60 mg oral enteric coated capsule 2 capsule = 120 mg, By Mouth, Daily, # 60 capsule, 5 Refills, Maintenance, 05/26/22 17:03:00 EST, Capsule, [facility] Partial fill upon patient request. NOT INCREASED DOSE. Please cancel all other Duloxetine scripts, 163, cm, 05/19/22... Start Date: 05/26/22 Status: Ordered empagliflozin 10 mg oral tablet 1 tablet = 10 mg, By Mouth, Daily in AM, # 30 tablet, 5 Refills, Maintenance, 02/20/22 12:04:00 EST, Tablet, [facility] Partial fill upon patient request if the prescription is for aschedule II opioid drug., 163, cm, 02/11/22 19:19:0... Start Date: 02/20/22 Status: Ordered fluticasone 50 mcg/inh nasal spray See Instructions, USE 1 SPRAY IN BOTH NOSTRILS 2 TIMES A DAY, # 16 mL, 1 Refills, 07/08/21 9:44:00 EDT, [facility] 30, USE 1 SPRAY IN BOTH NOSTRILS 2 TIMES A DAY, 162.5, cm, 228:49:00 EDT, Height, 85.8, kg, 06/04/21 10:03:00 ES... Start Date: 07/08/21 Status: Ordered ibuprofen 800 mg oral tablet 1, tablet, By Mouth, 3 times a day, PRN, # 90 tablet, Refills 1, Tot. Refills 1, Maintenance, NEEDED FOR PAIN, 07/11/22 15:09:00 EDT, Route to Pharmacy Electronically, [facility] 163, cm, 07/11/22 14:19:00 EDT, Height, 83, kg, 11/0... Start Date: 07/11/22 Status: Ordered Januvia 100 mg oral tablet 1 tablet = 100 mg, By Mouth, Daily, # 90 tablet, 3 Refills, Maintenance, 06/18/21 21:04:00 EDT, Tablet, [facility]., 162.5, cm, 06/17/21 13:04:00 EDT, Height, 85.8, kg, 06/04/21 10:03:00 EST, Dry Weight Start Date: 06/18/21 Status: Ordered Lantus 100 u/ml subcutaneous solution = 50 units, Subcutaneous Injection, Daily, # 15 mL, 2 Refills, Maintenance, 01/06/22 12:07:00 EDT, Solution, [facility], ;, 163, cm, 01/03/22 11:20:00 EDT, Height, 84, kg, 01/02/22 19:36:00 EDT, Dry Weight Start Date: 01/06/22 Status: Ordered lidocaine 5% topical film 1 patch, Topically, Daily, PRN Pain , Mild, remove after 12 hours, # 13 each, 5 Refills, Maintenance, 04/29/22 11:56:00 EST, Film, [facility], Partial fill upon patient request if theprescription is for a schedule II opioid drug., 1 p... Start Date: 04/29/22 Status: Ordered lisinopril 20 mg oral tablet 20 mg, 1, tablet, By Mouth, Daily, # 90 tablet, Refills 3, Tot. Refills 3, Maintenance, 08/28/21 9:07:00 EDT, Route to Pharmacy Electronically, [facility]., 162, cm, 08/22/21 9:46:00 EDT, [...] PRN NEEDED, # 30 capsule, 2 Refills, [facility], 162, cm, 09/06/21 13:04:00 EDT, Height, 86, kg, 07/23/21 0:58:00 EDT, Dry Weight Start Date: 10/02/21 Status: Ordered oxyCODONE 15 mg oral tablet 1 tablet = 15 mg, By Mouth, 3 times a day, on contract at [facility], # 84 tablet, 0 Refills, Maintenance, 07/22/22 9:08:00 EDT, [facility], Partial fill upon patient request [...] 07/08/21 9:39:00 EDT, Route to Pharmacy Electronically, [facility], 162.5, cm, 07/08/21 8:49:00 EDT, Height, 85.8, kg, 06/04/21 10:0... Start Date: 07/08/21 Status: Ordered tiZANidine 4 mg oral capsule See Instructions, PRN Pain , Severe, take as little as possible to control pain not to exceed 3 doses/day, # 60 capsule, 0 Refills, Maintenance, 06/24/22 13:18:00 EDT, [facility]., 163, cm, 05/19/22 15:33:00 EST, Height, 83, kg, ... Start Date: 06/24/22 Status: Ordered traZODone 50 mg oral tablet See Instructions, 1/2- 1 tablet By Mouth Daily at bedtime, # 30 each, Refills 1, Tot. Refills 1, Maintenance, 06/30/22 14:07:00 EDT, Instructions Replace Required Details, [facility] upon... Start Date: 06/30/22 Status: Ordered Trulicity Pen 3 mg/0.5 mL subcutaneous solution See Instructions, INJECT 0.5 ML SUBCUTANEOUSLY EVERY WEEK. 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 Charlene Fabian [phone] Confirmed Active Syncope and collapse Confirmed Active Tobacco dependence Confirmed Active DM2 (diabetes mellitus, type 2) Confirmed 04/03/17 Active Incontinence of urine 3 Confirmed Active 1seen on MRI 10/2016, rec repeat imaging in October [address] [place] 09[place]18/16 [place] [facility] 3urge and stress Social History Social History Type Response Smoking Status Current every day sm oker; Type: Cigarettes; Tobacco use times per day: 1/2 ppd; entered on: 12/24/17 Sex Patient Care team information Care Team Personnel Name: Sindy Bernal RN Position: [facility] RN Member Role: Primary Care Nurse Name: Graciela Thrasher RN Position: [facility] RN Member Role: Primary Care Nurse Name: Stevie Angel RN Position: [facility] RN Member Role: Primary Care Nurse Name: Leonora Bai NP Position: [facility] PCO Associate Professional Member Role: PCP Address: Address: [address] [place] [address] [place] [address]- Name: Keily Ortega RN Position: [facility] RN Member Role: Primary Care Nurse Name: Garciela Munroe RN Position: [facility] RN Member Role: Primary Care Nurse Name: Nichole Pichardo RN Position: [facility] RN Member Role: Primary Care Nurse Name: Melvin Whitfield RN Position: [facility] PCO RN Member Role: Primary Care Nurse Name: Phuong Berkowitz RN Position: [facility] RN Member Role: Primary Care Nurse Name: Joselyn Rain RN Position: [facility] Audio Visual Coordinator Member Role: Primary Care Nurse Care Team Related Persons Name: IRA ROMERO Address: home [address] [place] [address] Name: JHON LARSON Address: [address] [place] [address] Name: JHON LARSON Address: [address] [place] [address] Name: GALO CATALAN Name: NANCY CATALAN Address: home [address] [place] [address]
--- OUTSIDE RECORDS SUMMARY | 2023-03-25 08:22 | XMS_ITS | Continuity of Care Document ---
Author Name Unknown Organization [facility] Address [address] [place] [address]- Care Team Providers Care Manager Civil Name Role Phone Richardson QUIROZ, Leonora Pérez Primary Care Physician Encounter [facility] Date(s): 03/04/21 - 04/03/21 [facility] [address] [place] [address]- Allergies, Adverse Reactions, Alerts Substance Reaction Severity [...] 01/16/21 19:30:00 EDT, Route to Pharmacy Electronically, [facility]/pharmacy #[id number], Partial fill upon patient request if the prescription is for a schedule II o... Start Date: 01/16/21 Status: Ordered Advair Diskus 500 mcg-50 mcg inhalation powder 1, puffs, Inhalation, 2 times a day, [id number], # 1 each, Refills 11, Tot. Refills 11, Maintenance, 04/05/20 14:12:00 EST, Powder, Route to Pharmacy Electronically, [id number], [facility]/pharmacy #[id number], 162.56, cm, 03/27/20 11:36:00... Start Date: 04/05/20 Status: Ordered albuterol 0.083% inhalation solution 3 mL = 2.5 mg, Inhalation, Every 4 hours, PRN for wheezing, # 100 each, 2 Refills, Maintenance, 08/15/20 10:22:00 EDT, Solution, [facility]/pharmacy #[id number], 163, cm, 08/09/20 8:45:00 EDT, Height, 84.8, kg, 06/25/20 20:28:00 EDT, Dry Weight Start Date: 08/15/20 Status: Ordered amitriptyline 50 mg oral tablet See Instructions, 1.5 tablets by Mouth Daily at bedtime, # 45 each, 1 Refills, 03/21/21 16:11:00 EST, [facility]/pharmacy #[id number], 162.5, cm, 03/14/21 10:31:00 EST, Height, 90.9, kg, 02/02/21 5:59:00 EDT, DryWeight Start Date: 03/21/21 Status: Ordered atorvastatin 20 mg oral tablet 3 tablet = 60 mg, By Mouth, Daily, # 90 tablet, 3 Refills, Maintenance, 04/05/20 14:11:00 EST, Tablet, [facility]/pharmacy #[id number], Partial fill upon patient request if the prescription is for a schedule II opioid drug., 162.56, cm, 03/27/20 11:36:00 EST, Heig... Start Date: 04/05/20 Status: Ordered capsaicin 0.025% topical cream 1 application, Topically, 3 times a day, # 45 Gm, 3 Refills, Maintenance, 11/01/19 15:25:00 EDT, Cream, [facility]/pharmacy #[id number], 1 application Topically 3 times a day, 163, cm, 11/01/19 14:40:00 EDT, Height, 80, kg, 10/29/19 0:29:00 EDT, Dry Weight Start Date: 11/01/19 Status: Ordered cetirizine 10 mg oral tablet 1 tablet = 10 mg, By Mouth, Daily, # 30 tablet, 5 Refills, Maintenance, 06/20/20 13:18:00 EDT, Tablet, [facility]/pharmacy #[id number], 162, cm, 05/24/20 9:01:00 EST, Height, 80, kg, 04/18/20 9:48:00 EST, Dry Weight Start Date: 06/20/20 Status: Ordered cholecalciferol 5000 intl units oral capsule 1 capsule = 125 mcg, By Mouth, Daily, with food, # 100 capsule, 2 Refills, Maintenance, 02/11/21 11:17:00 EST, Capsule, [facility]/pharmacy #[id number], Partial fill upon [...] 1 Refills, Maintenance, 12/05/20 12:42:00 EDT, Cream, [facility]/pharmacy #[id number], 1 application Topically [...] 5 Refills, Maintenance, 02/18/21 15:09:00 EST, Capsule, [facility]/pharmacy #[id number], Partial fill upon patient request. NOT INCREASED DOSE, 155, cm, 02/18/2114:54:00 EST, Height, 90.9, kg, 02/02/21 5:59:00 ED... Start Date: 02/18/21 Status: Ordered estradiol 0.1 mg/g vaginal cream = 1 Gm, Vaginally, Daily at bedtime, # 30 Gm, 11 Refills, Maintenance, 12/31/20 15:58:00 EDT, [facility]/pharmacy #[id number], Partial fill upon patient request if the prescription is for a schedule II opioid drug., 165, cm, 12/31/20 14:56:00 EDT, Height, 87.6, kg... Start Date: 12/31/20 Status: Ordered fluticasone 50 mcg/inh nasal spray See Instructions, USE 1 SPRAY IN BOTH NOSTRILS 2 TIMES A DAY, # 16 mL, 1 Refills, Maintenance, [id number], 30, USE 1 SPRAY IN BOTH NOSTRILS 2 TIMES A DAY, 163, cm, 08/15/20 14:23:00 EDT, Height,84.8, kg, 06/25/20 20:28:00 EDT, Dry Weight Start Date: 09/07/20 Status: Ordered hydrochlorothiazide 12.5 mg oral tablet 1 tablet = 12.5 mg, By Mouth, Daily, TAKE 1 TABLET BY MOUTH EVERY DAY, # 30 capsule, 2 Refills, Maintenance, 03/22/21 16:20:00 EST, [facility]/pharmacy #[id number], 162.5, cm, 03/14/21 10:31:00 EST, [...] 2 Refills, Maintenance, 03/01/21 12:42:00 EST, Tablet, [facility]/pharmacy #[id number], 155, cm, 02/18/21 14:54:00 EST, Height, 90.9, kg, 02/02/21 5:59:00 EDT, DryWeight Start Date: 03/01/21 Status: Ordered Lantus 100 u/ml subcutaneous solution = 40 units, Subcutaneous Injection, Daily, # 12 mL, 2 Refills, Maintenance, 03/01/21 12:42:00 EST, Solution, [facility]/pharmacy #[id number], increased dose 12/26/19, 155, cm, 02/18/21 14:54:00 EST, Height, 90.9, kg, 02/02/21 5:59:00 EDT, Dry Weight Start Date: 03/01/21 Status: Ordered lidocaine 5% topical film 1 patch, Topically, Daily, For chronic radicular back pain, # 30 patch, 5 Refills, Maintenance, 10/11/20 8:15:00 EDT, [facility]/pharmacy #[id number], 1 patch Topically [...] 0 Refills, Maintenance, 08/15/20 15:59:00 EDT, Capsule, [facility]/pharmacy #[id number], Partial fill upon patient request if the prescription is for a schedule II opioid drug., 163, cm, 08/15/20 14:23:00 EDT, Heig... Start Date: 08/15/20 Status: Ordered mirabegron 25 mg oral tablet, extended release 1 tablet = 25 mg, By Mouth, Daily, do not crush or chew, # 30 tablet, 11 Refills, Maintenance, 12/31/20 15:58:00 EDT, ER Tablet, [facility]/pharmacy #[id number], Partial fill upon [...] 1 Refills, Maintenance, 01/31/21 14:16:00 EDT, Tablet, [facility], Partial fill upon patient request if the prescription is for a schedule II opioid drJose. Start Date: 01/31/21 Status: Ordered omeprazole 40 mg oral enteric coated capsule 1 capsule = 40 mg, By Mouth, Daily, PRN Dyspepsia, # 90 capsule, 0 Refills, Maintenance, 01/11/21 13:46:00 EDT, EC Capsule, [facility]/pharmacy #[id number], 165, cm, 12/31/20 14:56:00 EDT, Height, 87.6, kg, 12/31/20 14:56:00 EDT, Dry Weight Start Date: 01/11/21 Status: Ordered oxyCODONE 15 mg oral tablet 1 tablet = 15 mg, By Mouth, 2 times a day, for 28 days, # 56 tablet, 0 Refills, Acute 04/19/21 11:49:00 EST, 03/22/21 11:49:00 EST, [facility]/pharmacy #[id number], Client on contract at [facility], failed Morphine, switching to oxycodone [...] 10/30/20 11:37:00 EDT, Route to Pharmacy Electronically, [facility]/pharmacy #[id number], 163, cm, 08/15/20 14:23:00 EDT, Height, 84.8, kg, 06/25/20 20:28:00 EDT... Start Date: 10/30/20 Status: Ordered Spiriva Respimat 60 ACT 2.5 mcg/inh inhalation aerosol 2 puffs, Inhalation, Daily, # 1 each, 11 Refills, Maintenance, 04/05/20 14:17:00 EST, [facility]/pharmacy #[id number], Partial fill upon [...] 12/05/20 12:45:00 EDT, Route to Pharmacy Electronically, [facility]/pharmacy #[id number], 165, cm, 11/22/20 8:40:00 EDT, Height, 84.8, kg, 06/25/20 20:28:00... Start Date: 12/05/20 Stop Date: 01/30/21 Status: Ordered Trulicity Pen 0.75 mg/0.5 mL subcutaneous solution 0.5 mL = 0.75 mg, Subcutaneous Injection, Every week, rotate injection sites, # 2 mL, 5 Refills, Maintenance, 10/31/20 15:27:00 EDT, Solution, [facility]/pharmacy #[id number], Partial fill upon [...] on CPAP(Confirmed) Active Panic attacks(Confirmed) Active BHN/BHCP Litigation Counsel Jb Fabian [phone](Confirmed) Active Syncope and collapse(Confirmed) Active Tobacco dependence(Confirmed) Active DM2 (diabetes mellitus, type 2)(Confirmed) 04/03/17 Active Incontinence of urine(Confirmed) 3 Active 1seen on MRI 10/2016, rec repeat imaging in October [address] Abd 09/18/16 at [facility], pending MRI 3urge and stress Social History Social History Type Response Smoking Status Current every day sm tori; Type: Cigarettes; Tobacco use times per day: 1/2 ppd; entered on: 12/24/17 Sex
--- OUTSIDE RECORDS SUMMARY | 2023-03-25 08:22 | XMS_ITS | Continuity of Care Document ---
Author Name Unknown Organization [facility] Address [address] [place] [address]- Care Team Providers Care Food Analyst Name Role Phone Richardson LOCAL AREA NETWORK SYSTEMS ADMINSTRATOR, Leonora Pérez Primary Care Physician Encounter [facility] [place] Date(s): 05/26/22 - 06/25/22 [facility] [address] [place] [address]- Allergies, Adverse Reactions, Alerts Substance Reaction Severity Status morphine Active gabapentin swelling Active Lyrica dysphagia Active SEROquel body swelling - all over Act tony MetFORMIN Hydrochloride ER black tarry stool Active Immunizations Given and Recorded Vaccine Date Status Refusal Reason [id number] 12y+ bivalent booster vax 01/30/22 Given influenza virus vaccine, inactivated 01/30/22 Give n influenza virus vaccine, inactivated 02/04/21 Give n influenza virus vaccine, inactivated 1 04/19/20 Gi tonio influenza virus vaccine, inactivated 03/12/19 Give n influenza virus vaccine, inactivated 01/19/18 Give n influenza virus vaccine, inactivated 02/16/17 Give n pneumococcal 20-valent conjugate vaccine 12/26/21 Given SARS-CoV-2 mRNA ([id number]) vax 05/14/21 Given SARS-CoV-2 (COVID-19) mRNA BNT-162b2 [...] 10/22/21 9:23:00 EDT, Route to Pharmacy Electronically, [facility], Partial fill uponpatient request if the [...] tablet, 5 Refills, Maintenance, 04/03/22 11:25:00 EST, [facility], 163, cm, 02/11/22 19:19:00 EST, Height, 83, kg, 02/11/22 19:19:00 EST, Dry Weight Start Date: 04/03/22 Status: Ordered amitriptyline 25 mg oral tablet 25 mg, 1, tablet, By Mouth, Daily at bedtime, # 30 tablet, Refills 2, Tot. Refills 2, Maintenance, 08/30/21 12:06:00 EDT, Route to Pharmacy Electronically, [facility], Partial fill upon patient request if the prescription is for a sche... Start Date: 08/30/21 Status: Ordered amLODIPine 5 mg oral tablet 5 mg, 1, tablet, By Mouth, Daily, # 90 tablet, Refills 3, Tot. Refills 3, Maintenance, 04/29/22 11:56:00 EST, Route to Pharmacy Electronically, [facility], Partial fill upon patient request if the prescription is for a schedule II opio... Start Date: 04/29/22 Status: Ordered cholecalciferol 5000 intl units oral capsule 1 capsule = 125 mcg, By Mouth, Daily, with food, # 100 capsule, 2 Refills, Maintenance, 02/11/21 11:17:00 EST, Capsule, [facility]/pharmacy #[id number], Partial fill upon patient request if [...] 11 Refills, Maintenance, 02/21/22 10:35:00 EST, [facility] Partial fill upon patient request if the prescription is for a schedule II opioid drug., 2 tablet By... Start Date: 02/21/22 Status: Ordered duloxetine 60 mg oral enteric coated capsule 2 capsule = 120 mg, By Mouth, Daily, # 60 capsule, 5 Refills, Maintenance, 05/26/22 17:03:00 EST, Capsule, [facility] Partial fill upon patient request. NOT INCREASED DOSE. Please cancel all other Duloxetine scripts, 163, cm, 05/19/22... Start Date: 05/26/22 Status: Ordered empagliflozin 10 mg oral tablet 1 tablet = 10 mg, By Mouth, Daily in AM, # 30 tablet, 5 Refills, Maintenance, 02/20/22 12:04:00 EST, Tablet, [facility] Partial fill upon patient request if the prescription is for aschedule II opioid drug., 163, cm, 02/11/22 19:19:0... Start Date: 02/20/22 Status: Ordered fluticasone 50 mcg/inh nasal spray See Instructions, USE 1 SPRAY IN BOTH NOSTRILS 2 TIMES A DAY, # 16 mL, 1 Refills, 07/08/21 9:44:00 EDT, [facility] 30, USE 1 SPRAY IN BOTH NOSTRILS 2 TIMES A DAY, 162.5, cm, :49:00 EDT, Height, 85.8, kg, 06/04/21 10:03:00 ES... Start Date: 07/08/21 Status: Ordered ibuprofen 800 mg oral tablet 1, tablet, By Mouth, 3 times a day, PRN, # 90 tablet, Refills 1, Tot. Refills 1, Maintenance, NEEDED FOR PAIN, 06/23/22 9:42:00 EDT, Route to Pharmacy Electronically, [facility], 163, cm, 05/19/22 15:33:00 EST, Height, 83, kg, 02/11... Start Date: 06/23/22 Status: Ordered Januvia 100 mg oral tablet 1 tablet = 100 mg, By Mouth, Daily, # 90 tablet, 3 Refills, Maintenance, 06/18/21 21:04:00 EDT, Tablet, [facility] 162.5, cm, 06/17/21 13:04:00 EDT, Height, 85.8, kg, 06/04/21 10:03:00 EST, Dry Weight Start Date: 06/18/21 Status: Ordered Lantus 100 u/ml subcutaneous solution = 50 units, Subcutaneous Injection, Daily, # 15 mL, 2 Refills, Maintenance, 01/06/22 12:07:00 EDT, Solution, [facility]., ;, 163, cm, 01/03/22 11:20:00 EDT, Height, 84, kg, 01/02/22 19:36:00 EDT, Dry Weight Start Date: 01/06/22 Status: Ordered lidocaine 5% topical film 1 patch, Topically, Daily, PRN Pain , Mild, remove after 12 hours, # 13 each, 5 Refills, Maintenance, 04/29/22 11:56:00 EST, Film, [facility], Partial fill upon patient request if theprescription is for a schedule II opioid drug., 1 p... Start Date: 04/29/22 Status: Ordered lisinopril 20 mg oral tablet 20 mg, 1, tablet, By Mouth, Daily, # 90 tablet, Refills 3, Tot. Refills 3, Maintenance, 08/28/21 9:07:00 EDT, Route to Pharmacy Electronically, [facility], 162, cm, 08/22/21 9:46:00 EDT, Height, 86, kg, 07/23/21 0:58:00 EDT, Dry Weight Start Date: 08/28/21 Status: Ordered Melatonin 10 mg oral tablet 1 tablet = 10 mg, By Mouth, Daily at bedtime, # 30 each, 11 Refills, Maintenance, 04/29/22 11:56:00EST, [facility], Partial fill upon patient request if [...] PRN NEEDED, # 30 capsule, 2 Refills, [facility], 162, cm, 09/06/21 13:04:00 EDT, Height, 86, kg, 07/23/21 0:58:00 EDT, Dry Weight Start Date: 10/02/21 Status: Ordered oxyCODONE 15 mg oral tablet 1 tablet = 15 mg, By Mouth, 3 times a day, on contract at [facility], # 84 tablet, 0 Refills, Maintenance, 06/24/22 13:16:00 EDT, [facility], Partial fill upon patient request if the prescription is for a schedule II opioid drug., 163, cm, 0... Start Date: 06/24/22 Stop Date: 07/22/22 Status: Ordered prazosin 2 mg oral capsule 0 Refills, Maintenance, 02/06/22 16:42:00 EDT, Partial fill upon patient request if the prescription is for a schedule II opioid drug. Start Date: 02/06/22 Status: Ordered Senna 8.6 mg oral tablet 8.6 mg, 1, tablet, By Mouth, Daily at bedtime, # 100 tablet, Refills 11, Tot. Refills 11, Maintenance, 07/08/21 9:39:00 EDT, Route to Pharmacy Electronically, [facility], 162.5, cm, 07/08/21 8:49:00 EDT, Height, 85.8, kg, 06/04/21 10:0... Start Date: 07/08/21 Status: Ordered tiZANidine 4 mg oral capsule See Instructions, PRN Pain , Severe, take as little as possible to control pain not to exceed 3 doses/day, # 60 capsule, 0 Refills, Maintenance, 06/24/22 13:18:00 EDT, [facility], 163, cm, 05/19/22 15:33:00 EST, Height, 83, kg, ... Start Date: 06/24/22 Status: Ordered Trulicity Pen 3 mg/0.5 mL subcutaneous solution See Instructions, INJECT 0.5 ML SUBCUTANEOUSLY EVERY WEEK. ROTATE INJECTION SITES, # 2 mL, 5 Refills, Maintenance, 02/05/22 19:58:00 EDT, [facility], 163, cm, 02/05/22 11:00:00 EDT, Height,84, kg, [...] Confirmed Active Panic attacks Confirmed Active BHN/BHCP Offset Press Assistant Charlene Fabian [phone] Confirmed Active Syncope and collapse Confirmed Active Tobacco dependence Confirmed Active DM2 (diabetes mellitus, type 2) Confirmed 04/03/17 Active Incontinence of urine 3 Confirmed Active 1seen on MRI 10/2016, rec repeat imaging in October [address] Abd 09/18/16 at [facility] [place], pending MRI 3urge and stress Social History Social History Type Response Smoking Status Current every day sm oker; Type: Cigarettes; Tobacco use times per day: 1/2 ppd; entered on: 12/24/17 Sex Patient Care team information Care Team Personnel Name: Sindy Bernal RN Position: [facility] RN Member Role: Primary Care Nurse Name: Graciela Thrasher RN Position: [facility] SN RN Member Role: Primary Care Nurse Name: Stevie Angel RN Position: [facility] RN Member Role: Primary Care Nurse Name: Richardson LOCAL AREA NETWORK SYSTEMS ADMINSTRATORLeonora Position: [facility] PCO Associate Professional Member Role: PCP Address: Address: [address] [place] [id number] Name: Keily Ortega RN Position: [facility] RN Member Role: Primary Care Nurse Name: Graciela Munroe RN Position: [facility] RN Member Role: Primary Care Nurse Name: Nichole Pichardo RN Position: [facility] RN Member Role: Primary Care Nurse Name: Melvin Whitfield RN Position: [facility] PCO RN Member Role: Primary Care Nurse Name: Phuong Berkowitz RN Position: [facility] RN Member Role: Primary Care Nurse Name: Joselyn Rain RN Position: [facility] Vamp Strap Ironer Member Role: Primary Care Nurse Care Team Related Persons Name: IRA ROMERO Address: home [address] [place] [address] Name: JHON LARSON Address: home [address] [place] [address] Name: JHON LARSON Address: [address] [place] [address] Name: GALO CATALAN Name: NANCY CATALAN Address: home [address] [place] [address]
--- OUTSIDE RECORDS SUMMARY | 2023-03-25 08:22 | XMS_ITS | Continuity of Care Document ---
Author Name Unknown Organization [facility] Address [address] [place] [address]- Care Team Providers Care Hall Coordinator Name Role Phone Richardson QUIROZ, Leonora Pérez Primary Care Physician Encounter [facility] Date(s): 05/02/20 - 06/01/20 [facility] [address] [place], [place] [address] Allergies, Adverse Reactions, Alerts [...] 14:12:00 EST, Powder, Route to Pharmacy Electronically, [id number], [facility]/pharmacy #[id number], 162.56, cm, 03/27/20 11:36:00... Start Date: 04/05/20 Status: Ordered albuterol 0.083% inhalation solution 3 mL = 2.5 mg, Inhalation, Every 4 hours, PRN for wheezing, # 100 each, 5 Refills, Maintenance, 06/27/19 14:32:00 EDT, Solution, [facility]/pharmacy #[id number], 160, cm, 06/01/19 14:08:00 EST, Height, 88.9, kg, 05/23/19 22:09:00 EST, Dry Weight Start Date: 06/27/19 Status: Ordered amitriptyline 50 mg oral tablet 1 tablet = 50 mg, By Mouth, Daily at bedtime, # 30 tablet, 5 Refills, Maintenance, 12/30/19 18:21:00 EDT, Tablet, [facility]/pharmacy #[id number], 163, cm, 12/26/19 13:58:00 EDT, Height, 80, kg, 10/29/19 0:29:00 EDT, Dry Weight Start Date: 12/30/19 Status: Ordered atorvastatin 20 mg oral tablet 1 tablet = 20 mg, By Mouth, Daily, # 90 tablet, 3 Refills, Maintenance, 04/05/20 14:11:00 EST, Tablet, [facility]/pharmacy #[id number], Partial fill upon patient request if the prescription is for a schedule II opioid drug., 162.56, cm, 03/27/20 11:36:00 EST, Heig... Start Date: 04/05/20 Status: Ordered capsaicin 0.025% topical cream 1 application, Topically, 3 times a day, # 45 Gm, 3 Refills, Maintenance, 11/01/19 15:25:00 EDT, Cream, [facility]/pharmacy #[id number], 1 application Topically 3 times a day, 163, cm, 11/01/19 14:40:00 EDT, Height, 80, kg, 10/29/19 0:29:00 EDT, Dry Weight Start Date: 11/01/19 Status: Ordered cetirizine 10 mg oral tablet 1 tablet = 10 mg, By Mouth, Daily, # 30 tablet, 5 Refills, Maintenance, 12/13/19 18:32:00 EDT, Tablet, [facility]/pharmacy #[id number], 163, cm, 12/13/19 15:57:00 EDT, [...] mL, 11 Refills, Maintenance, 05/07/20 13:24:00 EST,Solution, [facility]/pharmacy #[id number], increased dose 12/26/19, 162, cm, [...] 05/07/20 13:30:00 EST, Route to Pharmacy Electronically, [facility]/pharmacy #[id number], 162, cm, 04/21/20 11:33:00 EST, Height, 80, kg, 04/18/20 9:48:00 EST, Dry Weight Start Date: 05/07/20 Status: Ordered Mapap 325 mg oral tablet 2 tablet = 650 mg, By Mouth, Every 4 hours, PRN for pain, not to exceed 3000 mg/day. instructions in macedonian, # 120 tablet, 2 Refills, Maintenance, 11/01/19 15:24:00 EDT, Tablet, [facility]/pharmacy #[id number], 163, cm, 11/01/19 14:40:00 EDT, [...] 2 Refills, Maintenance, 04/05/20 14:08:00 EST, Tablet, [facility]/pharmacy #[id number], Partial fill upon patient request if the prescription is for a schedule II opioid drug., 162.56, cm, ... Start Date: 04/05/20 Status: Ordered omeprazole 40 mg oral enteric coated capsule 1 capsule = 40 mg, By Mouth, Daily, # 30 capsule, 3 Refills, Maintenance, 05/24/20 9:40:00 EST, EC Capsule, [facility]/pharmacy #[id number], note dose increase, 162, cm, [...] 06/10/19 16:12:00 EST, Route to Pharmacy Electronically, [facility]/pharmacy #[id number], 160, cm, 06/01/19 14:08:00 EST, Height, 88.9, kg, 05/23/19 22:09:00 EST,... Start Date: 06/10/19 Status: Ordered Soma 350 mg oral tablet 350 mg, 1, tablet, By Mouth, 3 times a day, # 9 tablet, Refills 0, Tot. Refills 0, Maintenance, 05/04/20 15:46:00 EST, Route to Pharmacy Electronically, [facility]/pharmacy #[id number], Partial fill upon patient request [...] 05/03/20 11:26:00 EST, Route to Pharmacy Electronically, [facility]/pharmacy #[id number], 162, cm, 04/21/20 11:33:00 EST, [...] [address] Abd 09/18/16 at [facility] [place], [place] 3urge and stress Social History Social History Type Response Tobacco Use: Pt states she q uit smoking 1 week ago. Sex
--- OUTSIDE RECORDS SUMMARY | 2023-03-25 08:22 | XMS_ITS | Continuity of Care Document ---
Author Name Unknown Organization [facility] Address [address] [place] [address]- Care Team Providers Care Dialysis Registered Nurse Name Role Phone Gerry GERARDO, Rashmi Primary Care Physician Encounter [facility] Date(s): 12/09/22 - 01/08/23 [facility] [address] [place] [address]- Allergies, Adverse Reactions, Alerts Substance Reaction Severity Status morphine Active gabapentin swelling Active Lyrica dysphagia Active SEROquel body swelling - all over Act tony MetFORMIN Hydrochloride ER black tarry stool Active Immunizations Given and Recorded Vaccine Date Status Refusal Reason [id number] 12y+ bivalent booster vax 01/30/22 Given influenza virus vaccine, inactivated 01/30/22 Give n influenza virus vaccine, inactivated 02/04/21 Give n influenza virus vaccine, inactivated 1 04/19/20 Gi tonio influenza virus vaccine, inactivated 03/12/19 Give n influenza virus vaccine, inactivated 01/19/18 Give n influenza virus vaccine, inactivated 02/16/17 Give n pneumococcal 20-valent conjugate vaccine 12/26/21 Given SARS-CoV-2 mRNA ([id number]) vax 05/14/21 Given SARS-CoV-2 (COVID-19) mRNA BNT-162b2 vac 2 10/19/20 Given SARS-CoV-2 (COVID-19) mRNA BNT-162b2 vac 09/28/20 Given pneumococcal 23-valent vaccine 03/12/19 Given tetanus/diphtheria/pertussis, acel(Tdap) 07/29/13 Given 1Early/Late Reason: Early/Late Reason: Patient Not Available/Off Unit 2? Unknown: Resend to [facility]. Resend to [facility]. Medications acetaminophen 325 mg oral tablet 650 mg, 2, tablet, By Mouth, 3 times a day, # 100 tablet, Refills 5, Tot. Refills 5, Maintenance, 09/25/22 17:00:00 EDT, Route to Pharmacy Electronically, [facility], Partial fill upon patient request if the prescription is for a sched... Start Date: 09/25/22 Status: Ordered Advair Diskus 500 mcg-50 mcg inhalation powder 1, inhalation, Inhalation, 2 times a day, rinse mouth and throat after use, # 60 each, Refills 11, Tot. Refills 11, Maintenance, 09/25/22 17:00:00 EDT, Inhaler, Route to Pharmacy Electronically, [id number], [facility]-... Start Date: 09/25/22 Status: Ordered albuterol 0.083% inhalation solution 3 mL = 2.5 mg, Neb, Every 4 hours, PRN Wheezing/Shortness of Breath, # 100 each, 11 Refills, Maintenance, 12/26/22 8:14:00 EDT, Inhalation Solution, [facility], Partial fill upon patient request if the prescription is for a schedule II... Start Date: 12/26/22 Status: Ordered All Day Allergy 10 mg oral tablet 1 tablet, By Mouth, Daily, # 90 tablet, 3 Refills, Maintenance, 11/20/22 16:48:00 EDT, [facility], 163, cm, 11/20/22 16:00:00 EDT, Height, 83, kg, 02/11/22 19:19:00 EST, Dry Weight Start Date: 11/20/22 Status: Ordered amLODIPine 5 mg oral tablet 5 mg, 1, tablet, By Mouth, Daily, # 90 tablet, Refills 3, Tot. Refills 3, Maintenance, 04/29/22 11:56:00 EST, Route to Pharmacy Electronically, [facility], Partial fill upon patient request if the prescription is for a schedule II opio... Start Date: 04/29/22 Status: Ordered atorvastatin 40 mg oral tablet 1 tablet = 40 mg, By Mouth, Daily, # 90 tablet, 3 Refills, Maintenance, 09/25/22 16:58:00 EDT, Tablet, [facility] Partial fill upon [...] tablet, 0 Refills, Maintenance, 07/25/22 17:58:00 EDT, [facility] Partial fill upon [...] Gm, 2 Refills, Maintenance, 12/26/22 8:13:00 EDT, [facility] 15, APPLY TOPICALLY TO AFFECTED AREA TWO TIMES A DAY FOR TWO WEEKS, 163, cm, ... Start Date: 12/26/22 Status: Ordered docusate-senna 50 mg-187 mg oral tablet 2 tablet, By Mouth, 2 times a day, PRN Constipation, # 100 tablet, 11 Refills, Maintenance, 08/14/22 16:57:00 EDT, Tablet, [facility] Partial fill upon patient request if the prescription is for a schedule II opioid drug., 2 tablet By... Start Date: 08/14/22 Status: Ordered duloxetine 60 mg oral enteric coated capsule 2 capsule = 120 mg, By Mouth, Daily, # 60 capsule, 11 Refills, Maintenance, 11/20/22 16:48:00 EDT, Capsule, [facility]., Partial fill upon patient request. NOT INCREASED DOSE. Please cancel all other Duloxetine scripts, 163, cm, ... Start Date: 11/20/22 Status: Ordered empagliflozin 10 mg oral tablet 1 tablet = 10 mg, By Mouth, Daily in AM, # 90 tablet, 3 Refills, Maintenance, 09/25/22 17:01:00 EDT, Tablet, [facility]., Partial fill upon patient request if [...] 10/22/22 15:19:00 EDT, Route to Pharmacy Electronically, [facility]., 163, cm, 09/25/22 16:20:00 EDT, Height, 83, kg, 11/0... Start Date: 10/22/22 Status: Ordered Januvia 100 mg oral tablet 1 tablet, By Mouth, Daily, # 30 tablet, 11 Refills, Maintenance, 11/26/22 10:02:00 EDT, [facility], 163, cm, 11/20/22 16:00:00 EDT, Height, 83, kg, 02/11/22 19:19:00 EST, Dry Weight Start Date: 11/26/22 Status: Ordered lidocaine 5% topical film 1 patch, Topically, Daily, PRN Pain , Mild, remove after 12 hours, # 13 each, 5 Refills, Maintenance, 09/25/22 16:59:00 EDT, Film, [facility]., Partial fill upon patient request if theprescription is for a schedule II opioid drug., 1 p... Start Date: 09/25/22 Status: Ordered lisinopril 20 mg oral tablet 20 mg, 1, tablet, By Mouth, Daily, # 90 tablet, Refills 3, Tot. Refills 3, Maintenance, 11/20/22 16:48:00 EDT, Route to Pharmacy Electronically, [facility]., 163, cm, 11/20/22 16:00:00EDT, Height, 83, kg, 02/11/22 19:19:00 EST, Dry Weight Start Date: 11/20/22 Status: Ordered mirtazapine 30 mg oral tablet 1 tablet = 30 mg, By Mouth, Daily at bedtime, # 90 tablet, 1 Refills, Maintenance, 09/25/22 17:00:00 EDT, Tablet, [facility]., Partial fill upon patient request if the prescription is for a schedule II opioid drug., 163, cm, 09/25/22 16... Start Date: 09/25/22 Status: Ordered omeprazole 40 mg oral enteric coated capsule 1 capsule, By Mouth, Daily, PRN NEEDED, # 90 capsule, 1 Refills, Maintenance, 11/25/22 10:53:00 EDT, [facility], 163, cm, 11/20/22 16:00:00 EDT, Height, 83, kg, 02/11/22 19:19:00 EST, Dry Weight Start Date: 11/25/22 Status: Ordered oxyCODONE 15 mg oral tablet 1 tablet = 15 mg, By Mouth, 3 times a day, on contract at [facility], # 84 tablet, 0 Refills, Maintenance, 12/23/22 7:56:00 EDT, [facility]., Partial fill upon patient request if the prescription is for a schedule II opioid drug., 163, cm, 08... Start Date: 12/23/22 Stop Date: 01/20/23 Status: Ordered Panty liners Panty liners, See [...] 11/21/22 15:54:00 EDT, [facility], 163, cm, 11/20/22 16:00:00 EDT, Height, 83, kg, 02/11/22 19:19:00 E... Start Date: 11/21/22 Status: Ordered traZODone 50 mg oral tablet 1/2 TO 1 TABLET, By Mouth, Daily at bedtime, # 30 tablet, Refills 5, Maintenance, 08/29/22 11:31:00EDT, [facility], 163, cm, 08/14/22 16:50:00 EDT, Height, 83, kg, 02/11/22 19:19:00 EST, Dry Weight Start Date: 08/29/22 Status: Ordered triamcinolone 55 mcg/inh nasal spray 1 sprays = 55 mcg, Nares, Both, Daily, # 1 each, 5 Refills, Maintenance, 08/14/22 16:59:00 EDT, [facility], Partial fill upon patient request if the prescription is for a schedule II opioid drug., 1 sprays Nares, Both Daily, 163, cm, 0... 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 Fabian [phone] Confirmed Active Syncope and collapse Confirmed Active Tobacco dependence Confirmed Active DM2 (diabetes mellitus, type 2) Confirmed 04/03/17 Active Incontinence of urine 3 Confirmed Active 1seen on MRI 10/2016, rec repeat imaging in October [address] Abd 09/18/16 at [facility] [place], pending [place] 3urge and stress Social History Social History Type Response Smoking Status Current every day sm oker; Type: Cigarettes; Tobacco use times per day: 1/2 ppd; entered on: 12/24/17 Sex Patient Care team information Care Team Personnel Name: Sindy Bernal RN Position: [facility] RN Member Role: Primary Care Nurse Name: Graciela Thrasher RN Position: [facility] SN RN Member Role: Primary Care Nurse Name: Stevie Angel RN Position: [facility] RN Member Role: Primary Care Nurse Name: Rashmi Garrett MD Position: [facility] Physician - Primary Care Member Role: PCP Address: Address: [address] [place] [id number] Name: Keily Ortega RN Position: [facility] RN Member Role: Primary Care Nurse Name: Graciela Munroe RN Position: [facility] RN Member Role: Primary Care Nurse Name: Nichole Pichardo RN Position: [facility] RN Member Role: Primary Care Nurse Name: Melvin Whitfield RN Position: [facility] AMB Nurse Member Role: Primary Care Nurse Name: Phuong Berkowitz RN Position: [facility] RN Member Role: Primary Care Nurse Name: Joselyn Rain RN Position: [facility] Rail Gang Supervisor Member Role: Primary Care Nurse Care Team Related Persons Name: IRA ROMERO Address: home [address] [place] [address] Name: JHON LARSON Address: home [address] [place] [address] Name: JHON LARSON Address: [address] [place] [address] Name: GALO CATALAN Name: NANCY CATALAN Address: home [address] [place] [address]
--- OUTSIDE RECORDS SUMMARY | 2023-03-25 08:22 | XMS_ITS | Continuity of Care Document ---
Author Name Unknown Organization [facility] Address [address] [place] [address]- Care Team Providers Care Law Reporter Name Role Phone Richardson TRAVEL CONSULTANT, Leonora Pérez Primary Care Physician [phone] [facility]): 05/15/22 - 06/14/22 [facility] [address] [place] [address]- Allergies, Adverse Reactions, Alerts Substance Reaction Severity Status morphine Active gabapentin swelling Active Lyrica dysphagia Active SEROquel body swelling - all over Act tony MetFORMIN Hydrochloride ER black tarry stool Active Immunizations Given and Recorded Vaccine Date Status Refusal Reason [id number] 12y+ bivalent booster vax 01/30/22 Given influenza virus vaccine, inactivated 01/30/22 Give n influenza virus vaccine, inactivated 02/04/21 Give n influenza virus vaccine, inactivated 1 04/19/20 Gi tonio influenza virus vaccine, inactivated 03/12/19 Give n influenza virus vaccine, inactivated 01/19/18 Give n influenza virus vaccine, inactivated 02/16/17 Give n pneumococcal 20-valent conjugate vaccine 12/26/21 Given SARS-CoV-2 mRNA ([id number]) vax 05/14/21 Given SARS-CoV-2 (COVID-19) mRNA BNT-162b2 vac 2 10/19/20 Given SARS-CoV-2 (COVID-19) mRNA BNT-162b2 vac 09/28/20 Given pneumococcal 23-valent vaccine 03/12/19 Given tetanus/diphtheria/pertussis, acel(Tdap) 07/29/13 Given 1Early/Late Reason: Early/Late Reason: Patient Not Available/Off Unit 2? Unknown: Resend to [facility]. Resend to [facility]. Medications acetaminophen 325 mg oral tablet 650 mg, 2, tablet, By Mouth, 3 times a day, # 100 tablet, Refills 1, Tot. Refills 1, Maintenance, 10/22/21 9:23:00 EDT, Route to Pharmacy Electronically, [facility], Partial fill uponpatient request if the [...] tablet, 5 Refills, Maintenance, 04/03/22 11:25:00 EST, [facility], 163, cm, 02/11/22 19:19:00 EST, Height, 83, kg, 02/11/22 19:19:00 EST, Dry Weight Start Date: 04/03/22 Status: Ordered amitriptyline 25 mg oral tablet 25 mg, 1, tablet, By Mouth, Daily at bedtime, # 30 tablet, Refills 2, Tot. Refills 2, Maintenance, 08/30/21 12:06:00 EDT, Route to Pharmacy Electronically, [facility], Partial fill upon patient request if the prescription is for a sche... Start Date: 08/30/21 Status: Ordered amLODIPine 5 mg oral tablet 5 mg, 1, tablet, By Mouth, Daily, # 90 tablet, Refills 3, Tot. Refills 3, Maintenance, 04/29/22 11:56:00 EST, Route to Pharmacy Electronically, [facility], Partial fill upon patient request if the prescription is for a schedule II opio... Start Date: 04/29/22 Status: Ordered cholecalciferol 5000 intl units oral capsule 1 capsule = 125 mcg, By Mouth, Daily, with food, # 100 capsule, 2 Refills, Maintenance, 02/11/21 11:17:00 EST, Capsule, [facility]/pharmacy #[id number], Partial fill upon patient request if [...] 11 Refills, Maintenance, 02/21/22 10:35:00 EST, [facility] Partial fill upon patient request if the prescription is for a schedule II opioid drug., 2 tablet By... Start Date: 02/21/22 Status: Ordered duloxetine 60 mg oral enteric coated capsule 2 capsule = 120 mg, By Mouth, Daily, # 60 capsule, 5 Refills, Maintenance, 05/26/22 17:03:00 EST, [facility] Partial fill upon patient request. NOT INCREASED DOSE. Please cancel all other Duloxetine scripts, 163, cm, 05/19/22... Start Date: 05/26/22 Status: Ordered empagliflozin 10 mg oral tablet 1 tablet = 10 mg, By Mouth, Daily in AM, # 30 tablet, 5 Refills, Maintenance, 02/20/22 12:04:00 EST, Tablet, [facility] Partial fill upon patient request if the prescription is for aschedule II opioid drug., 163, cm, 02/11/22 19:19:0... Start Date: 02/20/22 Status: Ordered fluticasone 50 mcg/inh nasal spray See Instructions, USE 1 SPRAY IN BOTH NOSTRILS 2 TIMES A DAY, # 16 mL, 1 Refills, 07/08/21 9:44:00 EDT, [facility] 30, USE 1 SPRAY IN BOTH NOSTRILS 2 TIMES A DAY, 162.5, cm, :49:00 EDT, Height, 85.8, kg, 06/04/21 10:03:00 ES... Start Date: 07/08/21 Status: Ordered ibuprofen 800 mg oral tablet 1, tablet, By Mouth, 3 times a day, PRN, # 90 tablet, Refills 1, Tot. Refills 1, Maintenance, NEEDED FOR PAIN, 04/29/22 11:56:00 EST, Route to Pharmacy Electronically, [facility], 163, cm, 02/11/22 19:19:00 EST, Height, 83, kg, 11/0... Start Date: 04/29/22 Status: Ordered Januvia 100 mg oral tablet 1 tablet = 100 mg, By Mouth, Daily, # 90 tablet, 3 Refills, Maintenance, 06/18/21 21:04:00 EDT, Tablet, [facility]., 162.5, cm, 06/17/21 13:04:00 EDT, Height, 85.8, kg, 06/04/21 10:03:00 EST, Dry Weight Start Date: 06/18/21 Status: Ordered Lantus 100 u/ml subcutaneous solution = 50 units, Subcutaneous Injection, Daily, # 15 mL, 2 Refills, Maintenance, 01/06/22 12:07:00 EDT, Solution, [facility] ;, 163, cm, 01/03/22 11:20:00 EDT, Height, 84, kg, 01/02/22 19:36:00 EDT, Dry Weight Start Date: 01/06/22 Status: Ordered lidocaine 5% topical film 1 patch, Topically, Daily, PRN Pain , Mild, remove after 12 hours, # 13 each, 5 Refills, Maintenance, 04/29/22 11:56:00 EST, Film, [facility], Partial fill upon patient request if theprescription is for a schedule II opioid drug., 1 p... Start Date: 04/29/22 Status: Ordered lisinopril 20 mg oral tablet 20 mg, 1, tablet, By Mouth, Daily, # 90 tablet, Refills 3, Tot. Refills 3, Maintenance, 08/28/21 9:07:00 EDT, Route to Pharmacy Electronically, [facility] 162, cm, 08/22/21 9:46:00 EDT, Height, 86, kg, 07/23/21 0:58:00 EDT, Dry Weight Start Date: 08/28/21 Status: Ordered Melatonin 10 mg oral tablet 1 tablet = 10 mg, By Mouth, Daily at bedtime, # 30 each, 11 Refills, Maintenance, 04/29/22 11:56:00EST, [facility], Partial fill upon patient request if [...] PRN NEEDED, # 30 capsule, 2 Refills, [facility], 162, cm, 09/06/21 13:04:00 EDT, Height, 86, kg, 07/23/21 0:58:00 EDT, Dry Weight Start Date: 10/02/21 Status: Ordered oxyCODONE 15 mg oral tablet 1 tablet = 15 mg, By Mouth, 3 times a day, on contract at [facility], # 84 tablet, 0 Refills, Maintenance, 05/28/22 14:56:00 EST, [facility], Partial fill upon patient request if [...] 07/08/21 9:39:00 EDT, Route to Pharmacy Electronically, [facility], 162.5, cm, 07/08/21 8:49:00 EDT, Height, 85.8, kg, 06/04/21 10:0... Start Date: 07/08/21 Status: Ordered tiZANidine 4 mg oral capsule 1 capsule, By Mouth, 3 times a day, # 90 capsule, 0 Refills, Maintenance, 05/26/22 17:03:00 EST, [facility], 163, cm, 05/19/22 15:33:00 EST, Height, 83, kg, 02/11/22 19:19:00 EST, DryWeight Start Date: 05/26/22 Status: Ordered Trulicity Pen 3 mg/0.5 mL subcutaneous solution See Instructions, INJECT 0.5 ML SUBCUTANEOUSLY EVERY WEEK. 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 Fabian [phone] Confirmed Active Syncope and collapse Confirmed Active Tobacco dependence Confirmed Active DM2 (diabetes mellitus, type 2) Confirmed 04/03/17 Active Incontinence of urine 3 Confirmed Active 1seen on MRI 10/2016, rec repeat imaging in October [address] Abd 09/18/16 at [facility], pending MRI 3urge and stress Social History Social History Type Response Smoking Status Current every day sm tori; Type: Cigarettes; Tobacco use times per day: 1/2 ppd; entered on: 12/24/17 Sex Patient Care team information Care Team Personnel Name: Sindy Bernal RN Position: [facility] RN Member Role: Primary Care Nurse Name: Graciela Thrasher RN Position: [facility] SN RN Member Role: Primary Care Nurse Name: Stevie Angel RN Position: [facility] RN Member Role: Primary Care Nurse Name: Richardson TRAVEL CONSULTANT, Leonora Pérez Position: [facility] PCO Associate Professional Member Role: PCP Address: Address: [address] [place] [id number] Name: Keily Ortega RN Position: [facility] RN Member Role: Primary Care Nurse Name: Graciela Munroe RN Position: [facility] RN Member Role: Primary Care Nurse Name: Nichole Pichardo RN Position: [facility] RN Member Role: Primary Care Nurse Name: Melvin Whitfield RN Position: [facility] PCO RN Member Role: Primary Care Nurse Name: Phuong Berkowitz RN Position: [facility] RN Member Role: Primary Care Nurse Name: Joselyn Rain RN Position: [facility] Cleaning Handyman Member Role: Primary Care Nurse Care Team Related Persons Name: IRA ROMERO Address: home [address] [place] [address] Name: JHON LARSON Address: [address] [place] [address] Name: JHON LARSON Address: [address] [place] [address] Name: CATALANGALO VAZQUEZ Name: NANCY CATALAN Address: home [address] [place] [address]
--- OUTSIDE RECORDS SUMMARY | 2023-03-25 08:22 | XMS_ITS | Continuity of Care Document ---
Author Name Unknown Organization [facility] Address [address] [place] [address]- Care Team Providers Care Collar Setter Name Role Phone Richardson QUIROZ, Leonora Pérez Primary Care Physician [facility]): 05/04/20 - 06/03/20 [facility] [address] [place] [address]- Allergies, Adverse Reactions, Alerts Substance Reaction Severity [...] 14:12:00 EST, Powder, Route to Pharmacy Electronically, [id number], [facility]/pharmacy #[id number], 162.56, cm, 03/27/20 11:36:00... Start Date: 04/05/20 Status: Ordered albuterol 0.083% inhalation solution 3 mL = 2.5 mg, Inhalation, Every 4 hours, PRN for wheezing, # 100 each, 5 Refills, Maintenance, 06/27/19 14:32:00 EDT, Solution, [facility]/pharmacy #[id number], 160, cm, 06/01/19 14:08:00 EST, Height, 88.9, kg, 05/23/19 22:09:00 EST, Dry Weight Start Date: 06/27/19 Status: Ordered amitriptyline 50 mg oral tablet 1 tablet = 50 mg, By Mouth, Daily at bedtime, # 30 tablet, 5 Refills, Maintenance, 12/30/19 18:21:00 EDT, Tablet, [facility]/pharmacy #[id number], 163, cm, 12/26/19 13:58:00 EDT, Height, 80, kg, 10/29/19 0:29:00 EDT, Dry Weight Start Date: 12/30/19 Status: Ordered atorvastatin 20 mg oral tablet 1 tablet = 20 mg, By Mouth, Daily, # 90 tablet, 3 Refills, Maintenance, 04/05/20 14:11:00 EST, Tablet, [facility]/pharmacy #[id number], Partial fill upon patient request if the prescription is for a schedule II opioid drug., 162.56, cm, 03/27/20 11:36:00 EST, Heig... Start Date: 04/05/20 Status: Ordered capsaicin 0.025% topical cream 1 application, Topically, 3 times a day, # 45 Gm, 3 Refills, Maintenance, 11/01/19 15:25:00 EDT, Cream, [facility]/pharmacy #[id number], 1 application Topically 3 times a day, 163, cm, 11/01/19 14:40:00 EDT, Height, 80, kg, 10/29/19 0:29:00 EDT, Dry Weight Start Date: 11/01/19 Status: Ordered cetirizine 10 mg oral tablet 1 tablet = 10 mg, By Mouth, Daily, # 30 tablet, 5 Refills, Maintenance, 12/13/19 18:32:00 EDT, Tablet, [facility]/pharmacy #[id number], 163, cm, 12/13/19 15:57:00 EDT, Height, [...] mL, 11 Refills, Maintenance, 05/07/20 13:24:00 EST,Solution, [facility]/pharmacy #[id number], increased dose 12/26/19, 162, cm, 04/21/20 [...] 05/07/20 13:30:00 EST, Route to Pharmacy Electronically, [facility]/pharmacy #[id number], 162, cm, 04/21/20 11:33:00 EST, Height, 80, kg, 04/18/20 9:48:00 EST, Dry Weight Start Date: 05/07/20 Status: Ordered Mapap 325 mg oral tablet 2 tablet = 650 mg, By Mouth, Every 4 hours, PRN for pain, not to exceed 3000 mg/day. instructions in french, # 120 tablet, 2 Refills, Maintenance, 11/01/19 15:24:00 EDT, Tablet, [facility]/pharmacy #[id number], 163, cm, 11/01/19 14:40:00 EDT, Height, [...] 2 Refills, Maintenance, 04/05/20 14:08:00 EST, Tablet, [facility]/pharmacy #[id number], Partial fill upon patient request if the prescription is for a schedule II opioid drug., 162.56, cm, ... Start Date: 04/05/20 Status: Ordered omeprazole 40 mg oral enteric coated capsule 1 capsule = 40 mg, By Mouth, Daily, # 30 capsule, 3 Refills, Maintenance, 05/24/20 9:40:00 EST, EC Capsule, [facility]/pharmacy #[id number], note dose increase, 162, cm, 05/24/20 [...] 06/10/19 16:12:00 EST, Route to Pharmacy Electronically, [facility]/pharmacy #[id number], 160, cm, 06/01/19 14:08:00 EST, Height, 88.9, kg, 05/23/19 22:09:00 EST,... Start Date: 06/10/19 Status: Ordered Soma 350 mg oral tablet 350 mg, 1, tablet, By Mouth, 3 times a day, # 9 tablet, Refills 0, Tot. Refills 0, Maintenance, 05/04/20 15:46:00 EST, Route to Pharmacy Electronically, [facility]/pharmacy #[id number], Partial fill upon patient request if [...] 05/03/20 11:26:00 EST, Route to Pharmacy Electronically, [facility]/pharmacy #[id number], 162, cm, 04/21/20 11:33:00 EST, Height, [...] [address] Abd 09/18/16 at [facility], pending MRI 3urge and stress Social History Social History Type Response Tobacco Use: Pt states she q uit smoking 1 week ago. Sex
--- OUTSIDE RECORDS SUMMARY | 2023-03-25 08:22 | XMS_ITS | Continuity of Care Document ---
Author Name Unknown Organization [facility] Address [address] [place] [address]- Care Team Providers Care Plate Sensitizer Name Role Phone Rashmi Garrett MD Primary Care Physician [phone] Encounter 12/09/22 - 01/18/23 [facility] [address], [address] [place] [address]- Attending Physician: Anastasia , Provider Admitting Physician: AriaBreastExam , Provider Referring Physician: NoBreastExam , Provider Allergies, Adverse Reactions, Alerts Substance Reaction Severity Status morphine Active gabapentin swelling Active SEROquel body swelling - all over Act tony MetFORMIN Hydrochloride ER black tarry stool Active Lyrica dysphagia Active Immunizations Given and Recorded Vaccine Date Status Refusal Reason [id number] 12y+ bivalent booster vax 01/30/22 Given influenza virus vaccine, inactivated 01/30/22 Give n influenza virus vaccine, inactivated 02/04/21 Give n influenza virus vaccine, inactivated 1 04/19/20 Gi tonio influenza virus vaccine, inactivated 03/12/19 Give n influenza virus vaccine, inactivated 01/19/18 Give n influenza virus vaccine, inactivated 02/16/17 Give n pneumococcal 20-valent conjugate vaccine 12/26/21 Given SARS-CoV-2 mRNA ([id number]) vax 05/14/21 Given SARS-CoV-2 (COVID-19) mRNA BNT-162b2 [...] 17:00:00 EDT, Inhaler, Route to Pharmacy Electronically, [id number], [facility]... Start Date: 09/25/22 Status: Ordered albuterol 0.083% inhalation solution 3 mL = 2.5 mg, Neb, Every 4 hours, PRN Wheezing/Shortness of Breath, # 100 each, 11 Refills, Maintenance, 12/26/22 8:14:00 EDT, Inhalation Solution, [facility], Partial fill upon [...] 3 Refills, Maintenance, 09/25/22 16:58:00 EDT, Tablet, [facility] Partial fill upon patient [...] tablet, 0 Refills, Maintenance, 07/25/22 17:58:00 EDT, [facility] Partial fill upon patient [...] Gm, 2 Refills, Maintenance, 12/26/22 8:13:00 EDT, [facility] 15, APPLY TOPICALLY TO AFFECTED AREA TWO TIMES A DAY FOR TWO WEEKS, 163, cm, ... Start Date: 12/26/22 Status: Ordered docusate-senna 50 mg-187 mg oral tablet 2 tablet, By Mouth, 2 times a day, PRN Constipation, # 100 tablet, 11 Refills, Maintenance, 08/14/22 16:57:00 EDT, Tablet, [facility] Partial fill upon patient request if the prescription is for a schedule II opioid drug., 2 tablet By... Start Date: 08/14/22 Status: Ordered duloxetine 60 mg oral enteric coated capsule 2 capsule = 120 mg, By Mouth, Daily, # 60 capsule, 11 Refills, Maintenance, 11/20/22 16:48:00 EDT, Capsule, [facility], Partial fill upon patient request. NOT INCREASED DOSE. Please cancel all other Duloxetine scripts, 163, cm, ... Start Date: 11/20/22 Status: Ordered empagliflozin 10 mg oral tablet 1 tablet = 10 mg, By Mouth, Daily in AM, # 90 tablet, 3 Refills, Maintenance, 09/25/22 17:01:00 EDT, Tablet, [facility], Partial [...] 10/22/22 15:19:00 EDT, Route to Pharmacy Electronically, [facility], 163, cm, 09/25/22 16:20:00 EDT, Height, 83, kg, 11/0... Start Date: 10/22/22 Status: Ordered Januvia 100 mg oral tablet 1 tablet, By Mouth, Daily, # 30 tablet, 11 Refills, Maintenance, 11/26/22 10:02:00 EDT, [facility], 163, cm, 11/20/22 16:00:00 EDT, Height, 83, kg, 02/11/22 19:19:00 EST, Dry Weight Start Date: 11/26/22 Status: Ordered lidocaine 5% topical film 1 patch, Topically, Daily, PRN Pain , Mild, remove after 12 hours, # 13 each, 5 Refills, Maintenance, 09/25/22 16:59:00 EDT, Film, [facility]., Partial fill upon patient request if theprescription is for a schedule II opioid drug., 1 p... Start Date: 09/25/22 Status: Ordered lisinopril 20 mg oral tablet 20 mg, 1, tablet, By Mouth, Daily, # 90 tablet, Refills 3, Tot. Refills 3, Maintenance, 11/20/22 16:48:00 EDT, Route to Pharmacy Electronically, [facility] 163, cm, 11/20/22 16:00:00EDT, Height, 83, kg, 02/11/22 19:19:00 EST, Dry Weight Start Date: 11/20/22 Status: Ordered mirtazapine 30 mg oral tablet 1 tablet = 30 mg, By Mouth, Daily at bedtime, # 90 tablet, 1 Refills, Maintenance, 09/25/22 17:00:00 EDT, Tablet, [facility], Partial fill upon patient request if the prescription is for a schedule II opioid drug., 163, cm, 09/25/22 16... Start Date: 09/25/22 Status: Ordered omeprazole 40 mg oral enteric coated capsule 1 capsule, By Mouth, Daily, PRN NEEDED, # 90 capsule, 1 Refills, Maintenance, 11/25/22 10:53:00 EDT, [facility], 163, cm, 11/20/22 16:00:00 EDT, Height, 83, kg, 02/11/22 19:19:00 EST, Dry Weight Start Date: 11/25/22 Status: Ordered oxyCODONE 15 mg oral tablet 1 tablet = 15 mg, By Mouth, 3 times a day, on contract at [facility], # 84 tablet, 0 Refills, Maintenance, 12/23/22 7:56:00 EDT, [facility] Partial fill upon patient [...] 11/21/22 15:54:00 EDT, [facility], 163, cm, 11/20/22 16:00:00 EDT, Height, 83, kg, 02/11/22 19:19:00 E... Start Date: 11/21/22 Status: Ordered traZODone 50 mg oral tablet 1/2 TO 1 TABLET, By Mouth, Daily at bedtime, # 30 tablet, Refills 5, Maintenance, 08/29/22 11:31:00EDT, [facility], 163, cm, 08/14/22 16:50:00 EDT, Height, 83, kg, 02/11/22 19:19:00 EST, Dry Weight Start Date: 08/29/22 Status: Ordered triamcinolone 55 mcg/inh nasal spray 1 sprays = 55 mcg, Nares, Both, Daily, # 1 each, 5 Refills, Maintenance, 08/14/22 16:59:00 EDT, [facility] Partial fill upon patient request if the prescription is for a schedule II opioid drug., 1 sprays Nares, Both Daily, 163, cm, 0... 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 [phone] Confirmed Active Syncope and collapse Confirmed Active Tobacco dependence Confirmed Active DM2 (diabetes mellitus, type 2) Confirmed 04/03/17 Active Incontinence of urine 3 Confirmed Active 1seen on MRI 10/2016, rec repeat imaging in October [address] Abd 09/18/16 at [facility], pending MRI 3urge and stress Social History Social History Type Response Smoking Status Current every day sm oker; Type: Cigarettes; Tobacco use times per day: 1/2 ppd; entered on: 12/24/17 Sex Patient Care team information Care Team Personnel Name: Sindy Bernal RN Position: [facility] RN Member Role: Primary Care Nurse Name: Graciela Thrasher RN Position: [facility] SN RN Member Role: Primary Care Nurse Name: Stevie Angel RN Position: [facility] RN Member Role: Primary Care Nurse Name: Rashmi Garrett MD Position: [facility] Physician - Primary Care Member Role: PCP Address: Address: [address] [place] [address] Name: Keily Ortega RN Position: [facility] RN Member Role: Primary Care Nurse Name: Graciela Munroe RN Position: [facility] RN Member Role: Primary Care Nurse Name: Nichole Pichardo RN Position: [facility] RN Member Role: Primary Care Nurse Name: Melvin Whitfield RN Position: [facility] AMB Nurse Member Role: Primary Care Nurse Name: Phuong Berkowitz RN Position: [facility] RN Member Role: Primary Care Nurse Name: Joselyn Rain RN Position: [facility] Hospital Print Room Worker Member Role: Primary Care Nurse Care Team Related Persons Name: IRA ROMERO Address: home [address] [place] [address] Name: JHON LARSON Address: [address] [place] [address] Name: JHON LARSON Address: [address] [place] [address] Name: GALO CATALAN Name: NANCY CATALAN Address: [address] [place] [address]
--- OUTSIDE RECORDS SUMMARY | 2023-03-25 08:22 | XMS_ITS | Continuity of Care Document ---
Author Name Unknown Organization [facility] Address [address] [place] [address]- Care Team Providers Care Polymerization Engineer Name Role Phone Richardson QUIROZ, Leonora Pérez Primary Care Physician [phone] [facility]counter [facility] Date[facility]s): 08/07/20 - 09/06/20 [facility] [address] [place] [address]- Allergies, Adverse Reactions, Alerts Substance Reaction Severity [...] 14:12:00 EST, Powder, Route to Pharmacy Electronically, [id number], [facility]/pharmacy #[id number], 162.56, cm, 03/27/20 11:36:00... Start Date: 04/05/20 Status: Ordered albuterol 0.083% inhalation solution 3 mL = 2.5 mg, Inhalation, Every 4 hours, PRN for wheezing, # 100 each, 2 Refills, Maintenance, 08/15/20 10:22:00 EDT, Solution, [facility]/pharmacy #[id number], 163, cm, 08/09/20 8:45:00 EDT, Height, 84.8, kg, 06/25/20 20:28:00 EDT, Dry Weight Start Date: 08/15/20 Status: Ordered amitriptyline 75 mg oral tablet 1 tablet = 75 mg, By Mouth, Daily at bedtime, # 30 tablet, 5 Refills, Maintenance, 08/16/20 11:58:00 EDT, Tablet, [facility]/pharmacy #[id number], Partial fill upon patient request if the prescription is for a schedule II opioid drug. INSTEAD OF 50mg SCRIPT PLEASE... Start Date: 08/16/20 Status: Ordered atorvastatin 20 mg oral tablet 1 tablet = 20 mg, By Mouth, Daily, # 90 tablet, 3 Refills, Maintenance, 04/05/20 14:11:00 EST, Tablet, [facility]/pharmacy #[id number], Partial fill upon patient request if the prescription is for a schedule II opioid drug., 162.56, cm, 03/27/20 11:36:00 EST, [place]... Start Date: 04/05/20 Status: Ordered capsaicin 0.025% topical cream 1 application, Topically, 3 times a day, # 45 Gm, 3 Refills, Maintenance, 11/01/19 15:25:00 EDT, Cream, [facility]/pharmacy #[id number], 1 application Topically 3 times a day, 163, cm, 11/01/19 14:40:00 EDT, Height, 80, kg, 10/29/19 0:29:00 EDT, Dry Weight Start Date: 11/01/19 Status: Ordered cetirizine 10 mg oral tablet 1 tablet = 10 mg, By Mouth, Daily, # 30 tablet, 5 Refills, Maintenance, 06/20/20 13:18:00 EDT, Tablet, [facility]/pharmacy #[id number], 162, cm, 05/24/20 9:01:00 EST, Height, [...] Gm, 1 Refills, Maintenance, 08/15/20 15:59:00 EDT, [place], [id number], Partial fill upon patient request [...] 2 Refills, Maintenance, 08/27/20 11:00:00 EDT, Tablet, [facility]/pharmacy #[id number], 163, cm, 08/15/20 14:23:00 EDT, Height, 84.8, kg, 06/25/20 20:28:00 EDT, Dry Weight Start Date: 08/27/20 Status: Ordered Lantus 100 u/ml subcutaneous solution = 40 units, Subcutaneous Injection, Daily, # 12 mL, 11 Refills, Maintenance, 05/07/20 13:24:00 EST,Solution, [facility]/pharmacy #[id number], increased dose 12/26/19, 162, cm, 04/21/20 11:33:00 EST, Height, 80, kg, 04/18/20 9:48:00 EST, Dry Weight Start Date: 05/07/20 Status: Ordered lidocaine 5% topical film 1 patch, Topically, Daily, For chronic radicular back pain, # 30 patch, 5 Refills, Maintenance, 03/09/20 8:53:00 EST, [facility]/pharmacy #[id number], 1 patch Topically Daily,Instr:For chronic radicular back pain, 163, cm, 12/26/19 13:58:00 EDT, Height, 80, kg, 07... Start Date: 03/09/20 Status: Ordered lisinopril 20 mg oral tablet 20 mg, 1, tablet, By Mouth, Daily, # 30 tablet, Refills 11, Tot. Refills 11, Maintenance, 05/07/20 13:30:00 EST, Route to Pharmacy Electronically, [facility]/pharmacy #[id number], 162, cm, 04/21/20 11:33:00 EST, Height, 80, kg, 04/18/20 9:48:00 EST, Dry Weight Start Date: 05/07/20 Status: Ordered loratadine 10 mg oral capsule 1 capsule = 10 mg, By Mouth, Daily, # 40 capsule, 0 Refills, Maintenance, 08/15/20 15:59:00 EDT, Capsule, [facility]/pharmacy #[id number], Partial fill upon patient request if [...] day, for 28 days, on contract at [facility], # 56 tablet, 0 Refills, [...] 06/04/20 12:46:00 EST, Route to Pharmacy Electronically, [facility]/pharmacy #[id number], 162, cm, 05/24/20 9:01:00 EST, Height, 80, kg, 04/18/20 9:48:00 EST, Dry... Start Date: 06/04/20 Status: Ordered Soma 350 mg oral tablet 350 mg, 1, tablet, By Mouth, 3 times a day, # 9 tablet, Refills 0, Tot. Refills 0, Maintenance, 05/04/20 15:46:00 EST, Route to Pharmacy Electronically, [facility]/pharmacy #[id number], Partial fill upon patient request if [...]
--- OUTSIDE RECORDS SUMMARY | 2023-03-25 08:22 | XMS_ITS | Continuity of Care Document ---
Author Name Unknown Organization [facility] Address [address] [place] [address]- Care Team Providers Care Carpenter Ship Name Role Phone Richardson QUIROZ, Leonora Pérez Primary Care Physician [facility] Date[facility]s): 07/05/20 - 08/04/20 [facility] [address], [place] [address] Attending Physician: Clarence Reynaga Admitting Physician: Admtr, Clarence Referring Physician: Admtr, Ar8 Allergies, Adverse Reactions, [...] 14:12:00 EST, Powder, Route to Pharmacy Electronically, [id number], [facility]/pharmacy #[id number], 162.56, cm, 03/27/20 11:36:00... Start Date: 04/05/20 Status: Ordered albuterol 0.083% inhalation solution 3 mL = 2.5 mg, Inhalation, Every 4 hours, PRN for wheezing, # 100 each, 5 Refills, Maintenance, 06/27/19 14:32:00 EDT, Solution, [facility]/pharmacy #[id number], 160, cm, 06/01/19 14:08:00 EST, Height, [...] 04/05/20 14:11:00 EST, Tablet, [facility]/pharmacy #[id number], Partial fill upon patient request if the prescription is for a schedule II opioid drug., 162.56, cm, 03/27/20 11:36:00 EST, [place]... Start Date: 04/05/20 Status: Ordered capsaicin 0.025% topical cream 1 application, Topically, 3 times a day, # 45 Gm, 3 Refills, Maintenance, 11/01/19 15:25:00 EDT, Cream, [facility]/pharmacy #[id number], 1 application Topically 3 times a [...] 5 Refills, Maintenance, 03/02/20 11:18:00 EST, Capsule, [facility]/pharmacy #[id number], Partial fill upon patient request. NOT [...] mL, 11 Refills, Maintenance, 05/07/20 13:24:00 EST,Solution, [facility]/pharmacy #[id number], increased dose 12/26/19, 162, cm, 04/21/20 [...] Route to Pharmacy Electronically, [facility]/pharmacy #[id number], 162, cm, 04/21/20 11:33:00 EST, Height, 80, kg, 04/18/20 9:48:00 EST, Dry Weight Start Date: 05/07/20 Status: Ordered Mapap 325 mg oral tablet 2 tablet = 650 mg, By Mouth, Every 4 hours, PRN for pain, not to exceed 3000 mg/day. instructions in barbadian, # 120 tablet, 2 Refills, Maintenance, 11/01/19 [...] 04/05/20 14:08:00 EST, Tablet, [facility]/pharmacy #[id number], Partial fill upon patient request if the prescription is for a schedule II opioid drug., 162.56, cm, ... Start Date: 04/05/20 Status: Ordered omeprazole 40 mg oral enteric coated capsule 1 capsule = 40 mg, By Mouth, Daily, # 30 capsule, 3 Refills, Maintenance, 05/24/20 9:40:00 EST, EC Capsule, [facility]/pharmacy #[id number], note dose increase, 162, cm, 05/24/20 [...] day, for 28 days, on contract at [facility], # 56 tablet, 0 Refills, Acute 08/27/20 16:11:00 EDT, 07/30/20 16:11:00 EDT, [facility]/pharmacy #[id number], Partial fill upon patient request if the prescription is for a schedule II opi... Start Date: 07/30/20 Stop Date: 08/27/20 Status: Ordered Senna 8.6 mg oral tablet 8.6 mg, 1, tablet, By Mouth, Daily at bedtime, # 100 tablet, Refills 2, Tot. Refills 2, Maintenance, 06/04/20 12:46:00 EST, Route to Pharmacy Electronically, [facility]/pharmacy #[id number], 162, cm, 05/24/20 9:01:00 EST, Height, 80, kg, 04/18/20 9:48:00 EST, Dry... Start Date: 06/04/20 Status: Ordered Soma 350 mg oral tablet 350 mg, 1, tablet, By Mouth, 3 times a day, # 9 tablet, Refills 0, Tot. Refills 0, Maintenance, 05/04/20 15:46:00 EST, Route to Pharmacy Electronically, [facility]/pharmacy #[id number], Partial fill upon patient request if the prescription is for a schedule II opi... Start Date: 05/04/20 Status: Ordered Spiriva Respimat 60 ACT 2.5 mcg/inh inhalation aerosol 2 puffs, Inhalation, Daily, # 1 each, 11 Refills, Maintenance, 04/05/20 14:17:00 EST, [facility]/pharmacy #[id number], Partial fill upon patient request if [...] Route to Pharmacy Electronically, [facility]/pharmacy #[id number], 162, cm, 04/21/20 11:33:00 EST, Height, [...]
--- OUTSIDE RECORDS SUMMARY | 2023-03-25 08:22 | XMS_ITS | Continuity of Care Document ---
Author Name Unknown Organization [facility] ter Address [address] [place] [address]- Care Team Providers Care Wire Walker Name Role Phone Richardson QUIROZ, Leonora Pérez Primary Care Physician [facility] Date[facility]s): 04/04/19 - 06/19/[address] [address]- [facility] Attending Physician: Richardson QUIROZ, Leonora Pérez Admitting Physician: Richardson QUIROZ, Leonora Pérez Referring Physician: Richardson QUIROZ, Leonora Pérez Allergies, [...] 12:48:00 EST, Powder, Route to Pharmacy Electronically, [id number], [facility]/pharmacy #[id number], 158, cm, 04/26/19 9:58:00 [...] 5 Refills, Maintenance, 04/19/19 15:40:00 EST, Tablet, [facility]/pharmacy #[id number], 158, cm, 04/04/19 15:21:00 EST, Height, 82, kg, 04/01/19 16:10:00 EST, Dry Weight Start Date: 04/19/19 Status: Ordered clonazePAM 0.5 mg oral tablet TAKE 1 TABLET BY MOUTH TWICE A DAY NEEDED Start Date: 06/02/19 Status: Ordered clotrimazole 1% topical cream 1 application, Topically, 2 times a day, # 30 Gm, 0 Refills, Maintenance, 05/30/19 19:02:00 EST, Cream, [facility]/pharmacy #[id number], 1 application Topically [...] 5 Refills, Maintenance, 04/28/19 16:05:00 EST, Tablet, [facility]/pharmacy #[id number], 158, cm, 04/28/19 14:51:00 EST, Height, 82, kg, 04/01/19 16:10:00 EST, Dry Weight Start Date: 04/28/19 Status: Ordered lisinopril 10 mg oral tablet 10 mg, 1, tablet, By Mouth, Daily, # 90 tablet, Refills 3, Tot. Refills 3, Maintenance, 05/08/19 20:27:00 EST, Route to Pharmacy Electronically, [facility]/pharmacy #[id number], to replace 2.5mg dose, [...] not to exceed 3000 mg/day. instructions in north korean, # 120 tablet, 2 Refills, Maintenance, 05/04/19 9:35:00 EST, Tablet, [facility]/pharmacy #[id number], 158, cm, 04/28/19 14:51:00 EST, Height, 82, kg, 03/07... Start Date: 05/04/19 Status: Ordered metFORMIN 750 mg oral tablet, extended release 1 tablet = 750 mg, By Mouth, 2 times a day, # 60 tablet, 6 Refills, Maintenance, 05/30/19 18:54:00 EST, ER Tablet, [facility]/pharmacy #[id number], dose increased to BID 05/30/19, 160, [...] pain, for 28 days, on contract at [facility]., # 56 tablet, 0 Refills, Acute 07/08/19 10:04:00 EDT, 06/10/19 10:04:00 EST, [facility]/pharmacy #[id number], Partial fill upon patient request, 160, cm, 06/01/19 14:08:00 EST,... Start Date: 06/10/19 Stop Date: 07/08/19 Status: Ordered prazosin 1 mg oral capsule 1 mg, 1, capsule, By Mouth, Daily at bedtime, for nightmares, # 30 capsule, Refills 0, Tot. Refills0, Maintenance, 05/30/19 18:52:00 EST, Route to Pharmacy Electronically, [facility]/pharmacy #[id number], 160, cm, 05/30/19 18:08:00 EST, Height, 88.9, kg, 05/23/19... Start Date: 05/30/19 Status: Ordered raNITIdine 300 mg oral tablet See Instructions, # 30 tablet, Refills 2 Tot. Refills 2, TAKE 1 TABLET BY MOUTH EVERYDAY AT BEDTIME, [facility]/pharmacy #[id number] Start Date: 01/27/19 Status: Ordered Senexon-S 2 tablet, By Mouth, Daily at bedtime, 0 Refills, Maintenance, 11/25/18 10:10:49 EDT Start Date: 11/25/18 Status: Ordered senna 187 mg oral tablet 1 tablet = 8.6 mg, By Mouth, Daily at bedtime, PRN as needed for constipation, # 100 tablet, 5 Refills, Maintenance, 05/04/19 9:35:00 EST, [id number], 158, cm, 04/28/19 14:51:00 EST, Height, 82, kg, 04/01/19 16:10:00 EST, Dry Weight Start Date: 05/04/19 Status: Ordered Senna 8.6 mg oral tablet 8.6 mg, 1, tablet, By Mouth, Daily at bedtime, # 100 tablet, Refills 2, Tot. Refills 2, Maintenance, 06/10/19 16:12:00 EST, Route to Pharmacy Electronically, [facility]/pharmacy #[id number], 160, cm, 06/01/19 14:08:00 EST, Height, 88.9, kg, 05/23/19 22:09:00 EST,... Start Date: 06/10/19 Status: Ordered Spiriva Respimat 60 ACT 2.5 mcg/inh inhalation aerosol 2 puffs, Inhalation, Daily, # 1 each, 5 Refills, Maintenance, 04/26/19 10:30:00 EST, [facility]/pharmacy #[id number], 158, cm, 04/26/19 9:58:00 EST, Height, 82, kg, 04/01/19 16:10:00 EST, Dry Weight Start Date: 04/26/19 Status: Ordered tiZANidine 2 mg oral tablet 2 mg, 1, tablet, By Mouth, 2 times a day, PRN, # 30 tablet, Refills 2, Tot. Refills 2, Maintenance,as needed for muscle spasm, 06/13/19 18:17:00 EDT, Route to Pharmacy Electronically, [facility]/pharmacy #[id number], 160, cm, 06/01/19 [...] MARILIN on CPAP(Confirmed) Active Panic attacks(Confirmed) Active *BHN/BHCP/SARA-Harmony MacdonaldBhxiaop-[phone]/Health intermediate, active care coordination(Confirmed) Active Acute meniscal [...] 5seen on CT Abd 09/18/16 at [facility], pending MRI 6surgically repaired July 2015 Dr. Sg MENDEZ 7urge and stress Social History Social History Type Response Tobacco Use: Pt states she q uit smoking 1 week ago. Sex Female
--- OUTSIDE RECORDS SUMMARY | 2023-03-25 08:22 | XMS_ITS | Continuity of Care Document ---
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/pharmacy #[id number], 158, cm, 04/26/19 9:58:00 EST, H... Start Date: 04/27/19 Status: Ordered albuterol 0.083% inhalation solution 3 mL = 2.5 mg, Inhalation, Every 4 hours, PRN for wheezing, # 100 each, 5 Refills, Maintenance, 06/27/19 14:32:00 EDT, Solution, [facility]/pharmacy #[id number], 160, cm, 06/01/19 14:08:00 EST, Height, 88.9, kg, 05/23/19 22:09:00 EST, Dry Weight Start Date: 06/27/19 Status: Ordered amitriptyline 50 mg oral tablet 1 tablet = 50 mg, By Mouth, Daily at bedtime, # 30 tablet, 5 Refills, Maintenance, 12/30/19 18:21:00 EDT, Tablet, [facility]/pharmacy #[id number], 163, cm, 12/26/19 13:58:00 EDT, [...] 5 Refills, Maintenance, 12/13/19 18:32:00 EDT, Tablet, [facility]/pharmacy #0488, 163, cm, 12/13/19 15:57:00 EDT, [...] 3 Refills, Maintenance, 01/19/20 10:28:00 EDT, Tablet, [facility]/pharmacy #0488, 163, cm, 12/26/19 13:58:00 EDT, Height, 80, kg, 10/29/19 0:29:00 EDT, Dry Weight Start Date: 01/19/20 Status: Ordered Januvia 100 mg oral tablet 1 tablet = 100 mg, By Mouth, Daily, # 30 tablet, 5 Refills, Maintenance, 12/30/19 18:21:00 EDT, Tablet, [facility]/pharmacy #[id number], 163, cm, 12/26/19 13:58:00 EDT, [...] patch, 5 Refills, Maintenance, 03/09/20 8:53:00 EST, [facility]/pharmacy #0488, 1 [...] not to exceed 3000 mg/day. instructions in yakut, # 120 tablet, 2 Refills, Maintenance, 11/01/19 15:24:00 EDT, Tablet, [facility]/pharmacy #0488, 163, cm, 11/01/19 14:40:00 EDT, [...] 2Refills, Maintenance, 10/06/19 7:45:00 EDT, EC Capsule, [facility]/pharmacy #[id number], cancel Ranitidine, 160,cm, 09/28/19 8:58:00 EDT, Height, 86.8, kg, ... Start Date: 10/06/19 Status: Ordered Oxycodone = 10 mg, By Mouth, Every 12 hours, PRN Pain , Severe, LBP, 0 Refills, Maintenance, 12/07/19 15:23:00 EDT, Partial fill upon patient request Start Date: 12/07/19 Status: Ordered oxyCODONE 5 mg oral tablet 10 mg, Tablet, By Mouth, Every 12 hours, PRN for Pain , Moderate, Routine, 03/26/20 4:01:00 EST Start Date: 03/26/20 Stop Date: 03/27/20 Status: Discontinued Senna 8.6 mg oral tablet 8.6 mg, 1, tablet, By Mouth, Daily at bedtime, # 100 tablet, Refills 2, Tot. Refills 2, Maintenance, 06/10/19 16:12:00 EST, Route to Pharmacy Electronically, [facility]/pharmacy #[id number], 160, cm, 06/01/19 14:08:00 EST, Height, 88.9, kg, 05/23/19 22:09:00 EST,... Start Date: 06/10/19 Status: Ordered tiZANidine 4 mg oral tablet 4 mg, 1, tablet, By Mouth, Every 8 hours, PRN, # 84 tablet, Refills 1, Tot. Refills 1, Maintenance,Spasm, 02/03/20 13:47:00 EDT, Route to Pharmacy Electronically, [facility]/pharmacy #[id number], 163, cm, 12/26/19 13:58:00 EDT, [...] [facility], pending MRI 3urge and stress Results Radiology Reports * Exam Date Time Procedure Performing Provider Status 03/25/20 11:02 PM Chest Portable Genna Torres; Ya (Verified) Notes: (Chest Portable) Reason For Exam: chest pain;Other: RESULT: Chest Portable AP upright portable chest dated March 25, 2020. Comparison films are from . Comparison films are from March 20172018. HISTORY: Syncope. Chest pain. FINDINGS: The cardiac silhouette is within normal limits for size. Hilar and mediastinal structuresare unremarkable. Some linear density is present in the right midlung consistent with atelectasis or scarring. The left lung is clear. Visualized osseous structures are unremarkable. IMPRESSION: Right midlung atelectasis or scarring. This is not significantly changed from the previous study. Examination 68833. Thank you for allowing me to participate in the care of this patient. WSN: [id number] Ordering Physician: Lizy Jesus Dictated By: Robert Lund MD Dictated Date/Time: 03/25/20 11:05 p Reviewed By: Robert Lund MD Signed By: Robert Lund MD Signed Date/Time: 03/25/20 11:05 pm Transcribed By: WILVER Transcribed Date/Time: 03/25/20 11:04 pm Vital Signs Most recent to oldest [Reference Range]: 1 2 3 Height 162.56 cm (03/27/20 11:36 AM) 162.56 cm (03/27/20 7:42 AM) 162.56 cm (03/27/20 4:59 AM) Weight 80.2 kg (03/26/20 2:04 AM) 81.81 kg (03/26/20 1:59 AM) Oxygen Saturation [94-100 %] 99 % (03/27/20 11:36 AM) 96 % (03/27/20 7:42 AM) 96 % (03/27/20 4:59 AM) Pulse Rate [55-90 bpm] 71 bpm (03/27/20 11:36 AM) 70 bpm (03/27/20 7:42 AM) 68 bpm (03/27/20 4:59 AM) Body Mass Index [18.5-24.99] 30.96 *>HHI* (03/26/20 1:59 AM) Blood Pressure [90-138/55-84 mm Hg] 154/87mm Hg *H* (03/27/20 11:36 AM) 161/92mm Hg *H* (03/27/20 7:42 AM) 134/77mm Hg (03/27/20 4:59 AM) Respiratory Rate [16-30 br/min] 20 br/min (03/27/20 1:29 PM) 18 br/min (03/27/20 11:36 AM) 20 br/min (03/27/20 10:13 AM) Temperature [96.8-100.4 DegF] 97.5 DegF (03/27/20 11:36 AM) 97.6 DegF (03/27/20 7:42 AM) 98.7 DegF (03/27/20 12:13 AM) Mode of Delivery (Oxygen) Room air (03/27/20 11:36 AM) CPAP (03/27/20 7:42 AM) CPAP (03/27/20 4:59 AM) Blood pressure sites Arm, right (03/27/20 11:36 AM) Arm, right (03/27/20 7:42 AM) Arm, right (03/27/20 4:59 AM) Temperature Route Oral (03/27/20 11:36 AM) Oral (03/27/20 7:42 AM) Oral (03/27/20 12:13 AM) Dry Weight 81.81 kg (03/26/20 1:59 AM) Weight Obtained Via Bed scale (03/26/20 2:04 AM) Social History Social History Type Response Tobacco Use: Pt states she q uit smoking 1 week ago. Sex Female
--- OUTSIDE RECORDS SUMMARY | 2023-03-25 08:22 | XMS_ITS | Continuity of Care Document ---
Author Name Unknown Organization [facility] ter Address [address] [place] [id number]- Care Team Providers Care Audio/Video Technician Name Role Phone Richardson QUIROZ, Leonora Pérez Primary Care Physician ([phone] Encounter [facility] [place] Date(s): 05/09/20 - 07/09/[address] [address] Attending Physician: Richardson QUIROZ, Leonora Pérez Admitting [...] 14:12:00 EST, Powder, Route to Pharmacy Electronically, [id number], [facility]/pharmacy #[id number], 162.56, cm, 03/27/20 11:36:00... Start Date: 04/05/20 Status: Ordered albuterol 0.083% inhalation solution 3 mL = 2.5 mg, Inhalation, Every 4 hours, PRN for wheezing, # 100 each, 5 Refills, Maintenance, 06/27/19 14:32:00 EDT, Solution, [facility]/pharmacy #[id number], 160, cm, 06/01/19 14:08:00 EST, Height, 88.9, kg, 05/23/19 22:09:00 EST, Dry Weight Start Date: 06/27/19 Status: Ordered amitriptyline 50 mg oral tablet 1 tablet = 50 mg, By Mouth, Daily at bedtime, # 30 tablet, 5 Refills, Maintenance, 12/30/19 18:21:00 EDT, Tablet, [facility]/pharmacy #[id number], 163, cm, 12/26/19 13:58:00 EDT, Height, 80, kg, 10/29/19 0:29:00 EDT, Dry Weight Start Date: 12/30/19 Status: Ordered atorvastatin 20 mg oral tablet 1 tablet = 20 mg, By Mouth, Daily, # 90 tablet, 3 Refills, Maintenance, 04/05/20 14:11:00 EST, Tablet, [facility]/pharmacy #[id number], Partial fill upon patient request if the prescription is for a schedule II opioid drug., 162.56, cm, 03/27/20 11:36:00 EST, [place]... Start Date: 04/05/20 Status: Ordered Bactrim DS 800 mg-160 mg oral tablet 1 tablet, By Mouth, 2 times a day, for 14 days, # 28 tablet, 0 Refills, Acute 07/10/20 5:36:00 EDT,06/26/20 5:36:00 EDT, Tablet, [facility]/pharmacy #[id number], Partial [...] Dry Weight Start Date: 06/20/20 Status: Ordered clindamycin 300 mg oral capsule 1 capsule = 300 mg, By Mouth, Every 8 hours, for 7 days, # 21 capsule, 0 Refills, Acute 07/12/20 10:04:00 EDT, 07/05/20 10:04:00 EDT, Capsule, [facility]/pharmacy #[id number], Partial fill upon patient request ifthe prescription is for a schedule II opioid drug.,... Start Date: 07/05/20 Stop Date: 07/12/20 Status: Ordered clonazePAM 0.5 mg oral tablet [...] 3 Refills, Maintenance, 01/19/20 10:28:00 EDT, Tablet, [facility]/pharmacy #[id number], 163, cm, 12/26/19 13:58:00 EDT, Height, 80, kg, 10/29/19 0:29:00 EDT, Dry Weight Start Date: 01/19/20 Status: Ordered Januvia 100 mg oral tablet 1 tablet = 100 mg, By Mouth, Daily, # 30 tablet, 5 Refills, Maintenance, 12/30/19 18:21:00 EDT, Tablet, [facility]/pharmacy #[id number], 163, cm, 12/26/19 13:58:00 EDT, Height, 80, kg, 10/29/19 0:29:00 EDT, Dry Weight Start Date: 12/30/19 Status: Ordered Lantus 100 u/ml subcutaneous solution = 40 units, Subcutaneous Injection, Daily, # 12 mL, 11 Refills, Maintenance, 05/07/20 13:24:00 EST,Solution, [facility]/pharmacy #[id number], increased dose 12/26/19, 162, [...] 05/07/20 13:30:00 EST, Route to Pharmacy Electronically, [facility]/pharmacy #[id number], 162, cm, 04/21/20 11:33:00 EST, Height, 80, kg, 04/18/20 9:48:00 EST, Dry Weight Start Date: 05/07/20 Status: Ordered Mapap 325 mg oral tablet 2 tablet = 650 mg, By Mouth, Every 4 hours, PRN for pain, not to exceed 3000 mg/day. instructions in jordanian, # 120 tablet, 2 Refills, Maintenance, 11/01/19 15:24:00 EDT, Tablet, [facility]/pharmacy #[id number], 163, cm, 11/01/19 [...] 2 Refills, Maintenance, 04/05/20 14:08:00 EST, Tablet, [facility]/pharmacy #[id number], Partial fill upon patient request if the prescription is for a schedule II opioid drug., 162.56, cm, ... Start Date: 04/05/20 Status: Ordered omeprazole 40 mg oral enteric coated capsule 1 capsule = 40 mg, By Mouth, Daily, # 30 capsule, 3 Refills, Maintenance, 05/24/20 9:40:00 EST, EC Capsule, [facility]/pharmacy #[id number], note dose increase, 162, cm, [...] for 28 days, on contract at [facility], # 56 tablet, 0 Refills, Acute 07/30/20 8:00:00 EDT, 07/02/20 8:00:00 EDT, [facility]/pharmacy #[id number], Partial fill upon patient request if the prescription is for a schedule II opioi... Start Date: 07/02/20 Stop Date: 07/30/20 Status: Ordered Senna 8.6 mg oral tablet 8.6 mg, 1, tablet, By Mouth, Daily at bedtime, # 100 tablet, Refills 2, Tot. Refills 2, Maintenance, 06/04/20 12:46:00 EST, Route to Pharmacy Electronically, [facility]/pharmacy #[id number], 162, cm, 05/24/20 9:01:00 EST, Height, 80, kg, 04/18/20 9:48:00 EST, Dry... Start Date: 06/04/20 Status: Ordered Soma 350 mg oral tablet 350 mg, 1, tablet, By Mouth, 3 times a day, # 9 tablet, Refills 0, Tot. Refills 0, Maintenance, 05/04/20 15:46:00 EST, Route to Pharmacy Electronically, [facility]/pharmacy #[id number], Partial fill upon patient request if the prescription is for a schedule II opi... Start Date: 05/04/20 Status: Ordered Spiriva Respimat 60 ACT 2.5 mcg/inh inhalation aerosol 2 puffs, Inhalation, Daily, # 1 each, 11 Refills, Maintenance, 04/05/20 14:17:00 EST, [facility]/pharmacy #[id number], Partial fill [...] 05/03/20 11:26:00 EST, Route to Pharmacy Electronically, [facility]/pharmacy #[id number], 162, cm, 04/21/20 [...] 2seen on CT Abd 09/18/16 at [facility] [place], pending MRI 3urge and stress Social History Social History Type Response Tobacco Use: Pt states she q uit smoking 1 week ago. Sex
--- OUTSIDE RECORDS SUMMARY | 2023-03-25 08:22 | XMS_ITS | Continuity of Care Document ---
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 Start Date: 04/27/19 Status: Ordered albuterol 0.083% inhalation solution 3 mL = 2.5 mg, Inhalation, Every 4 hours, PRN for wheezing, # 100 each, 5 Refills, Maintenance, 06/27/19 14:32:00 EDT, Solution, [facility]/pharmacy #[id number], 160, cm, 06/01/19 14:08:00 [...] Refills, Maintenance, 04/19/19 15:40:00 EST, Tablet, [facility]/pharmacy #[id number], 158, cm, 04/04/19 15:21:00 EST, Height, 82, kg, 04/01/19 16:10:00 EST, Dry Weight Start Date: 04/19/19 Status: Ordered clonazePAM 0.5 mg oral tablet TAKE 1 TABLET BY MOUTH TWICE A DAY NEEDED Start Date: 06/02/19 Status: Ordered clotrimazole 1% topical cream 1 application, Topically, 2 times a day, # 30 Gm, 0 Refills, Maintenance, 05/30/19 19:02:00 EST, Cream, [facility]/pharmacy #[id number], 1 application Topically 2 [...] Refills, Maintenance, 04/28/19 16:05:00 EST, Tablet, [facility]/pharmacy #[id number], 158, cm, 04/28/19 14:51:00 EST, Height, 82, kg, 04/01/19 16:10:00 EST, Dry Weight Start Date: 04/28/19 Status: Ordered lidocaine 5% topical film 1 patch, Topically, Daily, For chronic radicular back pain, # 30 patch, 5 Refills, Maintenance, 06/27/19 14:37:00 EDT, [facility]/pharmacy #[id number], 1 patch Topically Daily,Instr:For chronic radicular back pain, 160, cm, 06/01/19 14:08:00 EST, Height, 88.9, kg,... Start Date: 06/27/19 Status: Ordered lisinopril 10 mg oral tablet 10 mg, 1, tablet, By Mouth, Daily, # 90 tablet, Refills 3, Tot. Refills 3, Maintenance, 05/08/19 20:27:00 EST, Route to Pharmacy Electronically, [facility]/pharmacy #[id number], to replace 2.5mg dose, [...] not to exceed 3000 mg/day. instructions in portuguese, # 120 tablet, 2 Refills, Maintenance, 07/25/19 8:41:00 EDT, Tablet, [facility]/pharmacy #[id number], 160, cm, 07/22/19 15:08:00 EDT, Height, 86.8, kg, 04... Start Date: 07/25/19 Status: Ordered metFORMIN 750 mg oral tablet, extended release 1 tablet = 750 mg, By Mouth, 2 times a day, # 60 tablet, 6 Refills, Maintenance, 05/30/19 18:54:00 EST, ER Tablet, [facility]/pharmacy #[id number], dose increased to BID [...] pain, for 28 days, on contract at [facility]., # 56 tablet, 0 Refills, Acute 08/04/19 13:49:00 EDT, 07/07/19 13:49:00 EDT, [facility]/pharmacy #[id number], Partial fill upon patient request, 160, cm, 06/01/19 14:08:00 EST,... Start Date: 07/07/19 Stop Date: 08/04/19 Status: Ordered prazosin 1 mg oral capsule 1 mg, 1, capsule, By Mouth, Daily at bedtime, for nightmares, # 30 capsule, Refills 0, Tot. Refills0, Maintenance, 05/30/19 18:52:00 EST, Route to Pharmacy Electronically, [facility]/pharmacy #[id number], 160, cm, 05/30/19 18:08:00 EST, Height, 88.9, kg, 05/23/19... Start Date: 05/30/19 Status: Ordered predniSONE 20 mg oral tablet 2 tablet = 40 mg, By Mouth, Daily, for 5 days, # 10 tablet, 0 Refills, Acute 08/02/19 11:55:00 EDT,07/28/19 11:55:00 EDT, [facility]/pharmacy #[id number], 160, cm, 07/22/19 15:08:00 EDT, Height, 86.8, kg, 07/22/19 15:13:00 EDT, Dry Weight Start Date: 07/28/19 Stop Date: 08/02/19 Status: Ordered raNITIdine 300 mg oral tablet See Instructions, # 30 tablet, Refills 2 Tot. Refills 2, TAKE 1 TABLET BY MOUTH EVERYDAY AT BEDTIME, [facility]/pharmacy #[id number] Start Date: 01/27/19 Status: Ordered Senexon-S 2 tablet, By Mouth, Daily at bedtime, 0 Refills, Maintenance, 11/25/18 10:10:49 EDT Start Date: 11/25/18 Status: Ordered senna 187 mg oral tablet 1 tablet = 8.6 mg, By Mouth, Daily at bedtime, PRN as needed for constipation, # 100 tablet, 5 Refills, Maintenance, 05/04/19 9:35:00 EST, [facility]/pharmacy #[id number], 158, cm, 04/28/19 14:51:00 EST, Height, 82, kg, 04/01/19 16:10:00 EST, Dry Weight Start Date: 05/04/19 Status: Ordered Senna 8.6 mg oral tablet 8.6 mg, 1, tablet, By Mouth, Daily at bedtime, # 100 tablet, Refills 2, Tot. Refills 2, Maintenance, 06/10/19 16:12:00 EST, Route to Pharmacy Electronically, [facility]/pharmacy #[id number], 160, cm, 06/01/19 14:08:00 EST, Height, 88.9, kg, 05/23/19 22:09:00 EST,... Start Date: 06/10/19 Status: Ordered Spiriva Respimat 60 ACT 2.5 mcg/inh inhalation aerosol 2 puffs, Inhalation, Daily, # 1 each, 5 Refills, Maintenance, 04/26/19 10:30:00 EST, [facility]/pharmacy #[id number], 158, cm, 04/26/19 9:58:00 EST, Height, 82, kg, 04/01/19 16:10:00 EST, Dry Weight Start Date: 04/26/19 Status: Ordered tiZANidine 2 mg oral tablet 2 mg, 1, tablet, By Mouth, 2 times a day, PRN, # 30 tablet, Refills 2, Tot. Refills 2, Maintenance,as needed for muscle spasm, 07/25/19 8:41:00 EDT, Route to Pharmacy Electronically, [facility]/pharmacy #[id number], 160, cm, 07/22/19 15:08:00 EDT, [...] on CPAP(Confirmed) Active Panic attacks(Confirmed) Active *BHN/BHCP/Efrem Macdonald-[phone]/Health alf, active care coordination(Confirmed) Active Acute meniscal tear of right knee(Confirmed) 6 06/2015 Active Tobacco dependence(Confirmed) Active DM2 (diabetes mellitus, type 2)(Confirmed) 04/03/17 Active Incontinence of urine(Confirmed) 7 Active 1surgically repaired November 2015, Dr. Sg MENDEZ 2DJD Lumbar Spine per MRI 3L3-L4 disc herniation per client report 4seen on MRI 10/2016, rec repeat imaging in October [address] Abd 09/18/16 at [facility] [place], [place] 6surgically repaired July 2015 Dr. Sg MENDEZ 7urge and stress Social History Social History Type Response Tobacco Use: Pt states she q uit smoking 1 week ago. Sex Female
--- OUTSIDE RECORDS SUMMARY | 2023-03-25 08:22 | XMS_ITS | Continuity of Care Document ---
Author Name Unknown Organization [facility] Address [address] [place] [address]- Care Team Providers Care Nutritional Services Host Name Role Phone Richardson DRY CANS OPERATOR, Leonora Pérez Primary Care Physician [phone] Encounter [facility] [place] Date(s): 10/22/22 - 11/21/22 [facility] [address] [place] [address]- Allergies, Adverse Reactions, Alerts Substance Reaction Severity Status morphine Active gabapentin swelling Active Lyrica dysphagia Active SEROquel body swelling - all over Act tony MetFORMIN Hydrochloride ER black tarry stool Active Immunizations Given and Recorded Vaccine Date Status Refusal Reason [id number] 12y+ bivalent booster vax 01/30/22 Given influenza virus vaccine, inactivated 01/30/22 Give n influenza virus vaccine, inactivated 02/04/21 Give n influenza virus vaccine, inactivated 1 04/19/20 Gi tonio influenza virus vaccine, inactivated 03/12/19 Give n influenza virus vaccine, inactivated 01/19/18 Give n influenza virus vaccine, inactivated 02/16/17 Give n pneumococcal 20-valent conjugate vaccine 12/26/21 Given SARS-CoV-2 mRNA ([id number]) vax 05/14/21 Given SARS-CoV-2 (COVID-19) mRNA BNT-162b2 [...] 09/25/22 17:00:00 EDT, Route to Pharmacy Electronically, [facility], Partial fill upon patient request if the prescription is for a sched... Start Date: 09/25/22 Status: Ordered Advair Diskus 500 mcg-50 mcg inhalation powder 1, inhalation, Inhalation, 2 times a day, rinse mouth and throat after use, # 60 each, Refills 11, Tot. Refills 11, Maintenance, 09/25/22 17:00:00 EDT, Inhaler, Route to Pharmacy Electronically, [id number], [facility]... Start Date: 09/25/22 Status: Ordered albuterol 0.083% inhalation solution 3 mL = 2.5 mg, 0 Refills, Maintenance, 02/06/22 16:39:00 EDT, Partial fill upon patient request if the prescription is for a schedule II opioid drug. Start Date: 02/06/22 Status: Ordered All Day Allergy 10 mg oral tablet 1 tablet, By Mouth, Daily, # 90 tablet, 3 Refills, Maintenance, 11/20/22 16:48:00 EDT, [facility], 163, cm, 11/20/22 16:00:00 EDT, Height, 83, kg, 02/11/22 19:19:00 EST, Dry Weight Start Date: 11/20/22 Status: Ordered amLODIPine 5 mg oral tablet 5 mg, 1, tablet, By Mouth, Daily, # 90 tablet, Refills 3, Tot. Refills 3, Maintenance, 04/29/22 11:56:00 EST, Route to Pharmacy Electronically, [facility], Partial fill upon patient request if the prescription is for a schedule II opio... Start Date: 04/29/22 Status: Ordered atorvastatin 40 mg oral tablet 1 tablet = 40 mg, By Mouth, Daily, # 90 tablet, 3 Refills, Maintenance, 09/25/22 16:58:00 EDT, Tablet, [facility] [...] tablet, 0 Refills, Maintenance, 07/25/22 17:58:00 EDT, [facility]., Partial fill upon patient request if the [...] Gm, 1 Refills, Maintenance, 09/03/22 14:02:00 EDT, [facility], 15, APPLY TOPICALLY TO AFFECTED AREA TWO TIMES A DAY,163, cm, 08/14/22 16:50:00 EDT, Height, 83, kg, 11/... Start Date: 09/03/22 Status: Ordered docusate-senna 50 mg-187 mg oral tablet 2 tablet, By Mouth, 2 times a day, PRN Constipation, # 100 tablet, 11 Refills, Maintenance, 08/14/22 16:57:00 EDT, Tablet, [facility]., Partial fill upon patient request if the prescription is for a schedule II opioid drug., 2 tablet By... Start Date: 08/14/22 Status: Ordered doxycycline hyclate 100 mg oral tablet 1 tablet = 100 mg, By Mouth, 2 times a day, for 7 days, # 14 tablet, 0 Refills, Acute 11/27/22 16:35:00 EDT, 11/20/22 16:35:00 EDT, Tablet, [facility] Partial fill upon patient request if the prescription is for a schedule II opioid d... Start Date: 11/20/22 Stop Date: 11/27/22 Status: Ordered duloxetine 60 mg oral enteric coated capsule 2 capsule = 120 mg, By Mouth, Daily, # 60 capsule, 11 Refills, Maintenance, 11/20/22 16:48:00 EDT, Capsule, [facility] Partial fill upon patient request. NOT INCREASED DOSE. Please cancel all other Duloxetine scripts, 163, cm, ... Start Date: 11/20/22 Status: Ordered empagliflozin 10 mg oral tablet 1 tablet = 10 mg, By Mouth, Daily in AM, # 90 tablet, 3 Refills, Maintenance, 09/25/22 17:01:00 EDT, Tablet, [facility]., Partial fill upon patient request if the [...] 10/22/22 15:19:00 EDT, Route to Pharmacy Electronically, [facility]., 163, cm, 09/25/22 16:20:00 EDT, Height, 83, kg, 11/0... Start Date: 10/22/22 Status: Ordered lidocaine 5% topical film 1 patch, Topically, Daily, PRN Pain , Mild, remove after 12 hours, # 13 each, 5 Refills, Maintenance, 09/25/22 16:59:00 EDT, Film, [facility]., Partial fill upon patient request if theprescription is for a schedule II opioid drug., 1 p... Start Date: 09/25/22 Status: Ordered lisinopril 20 mg oral tablet 20 mg, 1, tablet, By Mouth, Daily, # 90 tablet, Refills 3, Tot. Refills 3, Maintenance, 11/20/22 16:48:00 EDT, Route to Pharmacy Electronically, [facility]., 163, cm, 11/20/22 16:00:00EDT, Height, 83, kg, 02/11/22 19:19:00 EST, Dry Weight Start Date: 11/20/22 Status: Ordered mirtazapine 30 mg oral tablet 1 tablet = 30 mg, By Mouth, Daily at bedtime, # 90 tablet, 1 Refills, Maintenance, 09/25/22 17:00:00 EDT, Tablet, [facility]., Partial fill upon patient request if the prescription is for a schedule II opioid drug., 163, cm, 09/25/22 16... Start Date: 09/25/22 Status: Ordered omeprazole 40 mg oral enteric coated capsule 1 capsule, By Mouth, Daily, PRN NEEDED, # 30 capsule, 2 Refills, 08/26/22 13:27:00 EDT, [facility]., 163, cm, 08/14/22 16:50:00 EDT, Height, 83, kg, 02/11/22 19:19:00 EST, Dry Weight Start Date: 08/26/22 Status: Ordered oxyCODONE 15 mg oral tablet 1 tablet = 15 mg, By Mouth, 3 times a day, on contract at [facility], # 84 tablet, 0 Refills, Maintenance, 11/21/22 15:54:00 EDT, [facility]., Partial fill upon patient request if the [...] 11/21/22 15:54:00 EDT, [facility], [facility], 163, cm, 11/20/22 16:00:00 EDT, Height, 83, kg, 02/11/22 19:19:00 E... Start Date: 11/21/22 Status: Ordered traZODone 50 mg oral tablet 1/2 TO 1 TABLET, By Mouth, Daily at bedtime, # 30 tablet, Refills 5, Maintenance, 08/29/22 11:31:00EDT, Route to Pharmacy Electronically, [facility], 163, cm, 08/14/22 16:50:00 EDT, Height, 83, kg, 02/11/22 19:19:00 EST, Dry Weight Start Date: 08/29/22 Status: Ordered triamcinolone 55 mcg/inh nasal spray 1 sprays = 55 mcg, Nares, Both, Daily, # 1 each, 5 Refills, Maintenance, 08/14/22 16:59:00 EDT, [facility], Partial fill upon patient request if the prescription is for a schedule II opioid drug., 1 sprays Nares, Both Daily, 163, cm, 0... 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 Charlene Fabian [phone] Confirmed Active Syncope and collapse Confirmed Active [...] Team Personnel Name: Sindy Bernal RN Position: [facility] RN Member Role: Primary Care Nurse Name: Graciela Thrasher RN Position: [facility] SN RN Member Role: Primary Care Nurse Name: Stevie Angel RN Position: [facility] RN Member Role: Primary Care Nurse Name: Leonora Bai NP Position: [facility] PCO Associate Professional Member Role: PCP Address: Address: [address] [place] [id number] Name: Keily Ortega RN Position: [facility] RN Member Role: Primary Care Nurse Name: Nichole Pichardo RN Position: [facility] RN Member Role: Primary Care Nurse Name: Melvin Whitfield RN Position: [facility] AMB Nurse Member Role: Primary Care Nurse Name: Phuong Berkowitz RN Position: [facility] RN Member Role: Primary Care Nurse Name: Joselyn Rain RN Position: [facility] Credentialing Specialist Member Role: Primary Care Nurse Care Team Related Persons Name: IRA ROMERO Address: [address] [place] [address] Name: JHON LARSON Address: home [address] [place] [address] Name: JHON LARSON Address: [address] [place] [address] Name: GALO CATALAN Name: NANCY CATALAN Address: home [address] [place] [address]
--- OUTSIDE RECORDS SUMMARY | 2023-03-25 08:22 | XMS_ITS | Continuity of Care Document ---
Author Name Unknown Organization [facility] Address [address] [place] [address]- Care Team Providers Care Reception Agent Name Role Phone Richardson QUIROZ, Leonora Pérez Primary Care Physician [facility]counter [facility] Date(s): 08/05/21 - 09/04/21 [facility] [address], [place] [address] Allergies, Adverse Reactions, Alerts Substance Reaction Severity Status morphine Active gabapentin swelling Active Lyrica dysphagia Active SEROquel body swelling - all over Act tony MetFORMIN Hydrochloride ER black tarry stool Active Immunizations Given and Recorded Vaccine Date Status Refusal Reason SARS-CoV-2 mRNA ([id number]) vax 05/14/21 Given influenza virus vaccine, inactivated [...] 07/18/21 15:15:00 EDT, Route to Pharmacy Electronically, [facility], Partial fill upon patient request if the prescription is for a sched... Start Date: 07/18/21 Status: Ordered Advair Diskus 500 mcg-50 mcg inhalation powder 1, puffs, Inhalation, 2 times a day, [id number], # 1 each, Refills 5, Tot. Refills 5, Maintenance, 05/15/21 9:20:00 EST, Powder, Route to Pharmacy Electronically, [id number], [facility], 162.5, cm, 05/10/21 14:47... Start Date: 05/15/21 Status: Ordered albuterol 0.083% inhalation solution 3 mL = 2.5 mg, Inhalation, Every 4 hours, PRN for wheezing, # 100 each, 2 Refills, Maintenance, 05/15/21 9:30:00 EST, Solution, [facility], 162.5, cm, 05/10/21 14:47:00 EST, Height, 90.9, kg, 02/02/21 5:59:00 EDT, Dry Weight Start Date: 05/15/21 Status: Ordered amitriptyline 25 mg oral tablet 25 mg, 1, tablet, By Mouth, Daily at bedtime, # 30 tablet, Refills 2, Tot. Refills 2, Maintenance, 08/30/21 12:06:00 EDT, Route to Pharmacy Electronically, [facility], Partial fill upon patient request if the prescription is for a sche... Start Date: 08/30/21 Status: Ordered cetirizine 10 mg oral tablet 1 tablet = 10 mg, By Mouth, Daily, # 30 tablet, 5 Refills, Maintenance, 08/28/21 9:07:00 EDT, Tablet, [facility], 162, cm, 08/22/21 9:46:00 EDT, Height, 86, kg, 07/23/21 0:58:00 EDT, Dry Weight Start Date: 08/28/21 Status: Ordered cholecalciferol 5000 intl units oral capsule 1 capsule = 125 mcg, By Mouth, Daily, with food, # 100 capsule, 2 Refills, Maintenance, 02/11/21 11:17:00 EST, Capsule, [facility]/pharmacy #[id number], Partial fill upon [...] 1 Refills, Maintenance, 07/08/21 9:45:00 EDT, [facility] PLEASE CANCEL ESTRADIOL VAGINAL CREAM, [...] tablet, 5 Refills, Maintenance, 08/28/21 9:07:00 EDT,Tablet, [facility], Partial fill upon patient request if the prescription is for a schedule II opioid drug., 162, cm, 08/22/21 9:46:00... Start Date: 08/28/21 Status: Ordered fluticasone 50 mcg/inh nasal spray See Instructions, USE 1 SPRAY IN BOTH NOSTRILS 2 TIMES A DAY, # 16 mL, 1 Refills, 07/08/21 9:44:00 EDT, [facility]., 30, USE 1 SPRAY IN BOTH NOSTRILS 2 TIMES A DAY, 162.5, cm, :49:00 EDT, Height, 85.8, kg, 06/04/21 10:03:00 ES... Start Date: 07/08/21 Status: Ordered hydrochlorothiazide 12.5 mg oral tablet 1 tablet = 12.5 mg, By Mouth, Daily, TAKE 1 TABLET BY MOUTH EVERY DAY, # 30 capsule, 2 Refills, Maintenance, 08/28/21 9:07:00 EDT, [facility]., 162, cm, 08/22/21 9:46:00 EDT, Height, [...] 3 Refills, Maintenance, 06/18/21 21:04:00 EDT, Tablet, [facility], 162.5, cm, 06/17/21 13:04:00 EDT, Height, 85.8, kg, 06/04/21 10:03:00 EST, Dry Weight Start Date: 06/18/21 Status: Ordered Lantus 100 u/ml subcutaneous solution = 50 units, Subcutaneous Injection, Daily, # 15 mL, 5 Refills, Maintenance, 07/08/21 9:38:00 EDT, Solution, [facility], ;, 162.5, cm, 07/08/21 8:49:00 EDT, Height, 85.8, kg, 06/04/21 10:03:00 EST, Dry Weight Start Date: 07/08/21 Status: Ordered lisinopril 20 mg oral tablet 20 mg, 1, tablet, By Mouth, Daily, # 90 tablet, Refills 3, Tot. Refills 3, Maintenance, 08/28/21 9:07:00 EDT, Route to Pharmacy Electronically, [facility], 162, cm, 08/22/21 9:46:00 EDT, Height, [...] Refills, Maintenance, 05/09/21 10:45:00 EST, EC Capsule, [facility], 162.5, cm, 03/22/21 14:58:00 EST, Height, 90.9,kg, 02/02/21 5:59:00 EDT, Dry Weight Start Date: 05/09/21 Status: Ordered OxyCONTIN 15 mg oral tablet, extended release 1 tablet = 15 mg, By Mouth, Every 12 hours, # 56 tablet, 0 Refills, Maintenance, 08/03/21 7:30:00 EDT, ER Tablet, [facility], Partial fill upon patient request if the prescription is for a schedule II opioid drug. Patient on contract.... Start Date: 08/03/21 Stop Date: 08/31/21 Status: Ordered Senna 8.6 mg oral tablet 8.6 mg, 1, tablet, By Mouth, Daily at bedtime, # 100 tablet, Refills 11, Tot. Refills 11, Maintenance, 07/08/21 9:39:00 EDT, Route to Pharmacy Electronically, [facility]., 162.5, cm, 07/08/21 8:49:00 EDT, Height, 85.8, kg, 06/04/21 10:0... 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
--- OUTSIDE RECORDS SUMMARY | 2023-03-25 08:22 | XMS_ITS | Continuity of Care Document ---
Author Name Unknown Organization [facility] Address [address] [place] [address]- Care Team Providers Care Motor Hotel Manager Name Role Phone Richardson BROOM STITCHER, Leonora Pérez Primary Care Physician [facility]counter [facility] Date(s): 02/20/22 - 03/22/22 [facility] [address] [place] [address]- Allergies, Adverse Reactions, Alerts Substance Reaction Severity Status morphine Active gabapentin swelling Active Lyrica dysphagia Active MetFORMIN Hydrochloride ER black tarry stool Active SEROquel body swelling - all over Act tony Immunizations Given and Recorded Vaccine Date Status Refusal Reason [id number] 12y+ bivalent booster vax 01/30/22 Given influenza virus vaccine, inactivated 01/30/22 Give n influenza virus vaccine, inactivated 02/04/21 Give n influenza virus vaccine, inactivated 1 04/19/20 Gi tonio influenza virus vaccine, inactivated 03/12/19 Give n influenza virus vaccine, inactivated 01/19/18 Give n influenza virus vaccine, inactivated 02/16/17 Give n pneumococcal 20-valent conjugate vaccine 12/26/21 Given SARS-CoV-2 mRNA ([id number]) vax 05/14/21 Given SARS-CoV-2 (COVID-19) mRNA BNT-162b2 vac 2 10/19/20 Given SARS-CoV-2 (COVID-19) mRNA BNT-162b2 vac 09/28/20 Given pneumococcal 23-valent vaccine 03/12/19 Given tetanus/diphtheria/pertussis, acel(Tdap) 07/29/13 Given 1Early/Late Reason: Early/Late Reason: Patient Not Available/Off Unit 2? Unknown: Resend to [facility]. Resend to [facility]. Medications acetaminophen 325 mg oral tablet 650 mg, 2, tablet, By Mouth, 3 times a day, # 100 tablet, Refills 1, Tot. Refills 1, Maintenance, 10/22/21 9:23:00 EDT, Route to Pharmacy Electronically, [facility], Partial fill uponpatient request if the prescription [...] 08/30/21 12:06:00 EDT, Route to Pharmacy Electronically, [facility], Partial fill upon patient request if the prescription is for a sche... Start Date: 08/30/21 Status: Ordered amLODIPine 5 mg oral tablet 5 mg, 1, tablet, By Mouth, Daily, # 90 tablet, Refills 0, Tot. Refills 0, Maintenance, 01/30/22 10:50:00 EDT, Route to Pharmacy Electronically, [facility], Partial fill upon patient request if the prescription is for a schedule II opio... Start Date: 01/30/22 Status: Ordered cetirizine 10 mg oral tablet 1 tablet = 10 mg, By Mouth, Daily, # 30 tablet, 5 Refills, Maintenance, 08/28/21 9:07:00 EDT, Tablet, [facility], 162, cm, 08/22/21 9:46:00 EDT, Height, 86, kg, 07/23/21 0:58:00 EDT, Dry Weight Start Date: 08/28/21 Status: Ordered cholecalciferol 5000 intl units oral capsule 1 capsule = 125 mcg, By Mouth, Daily, with food, # 100 capsule, 2 Refills, Maintenance, 02/11/21 11:17:00 EST, Capsule, [facility]/pharmacy #[id number], Partial fill upon patient request [...] 11 Refills, Maintenance, 02/21/22 10:35:00 EST, [facility] Partial fill upon patient request if the prescription is for a schedule II opioid drug., 2 tablet By... Start Date: 02/21/22 Status: Ordered duloxetine 60 mg oral enteric coated capsule 2 capsule = 120 mg, By Mouth, Daily, # 60 capsule, 5 Refills, Maintenance, 11/14/21 11:41:00 EDT, [facility]apsule, [facility] Partial fill upon patient request. NOT INCREASED DOSE. Please cancel all other Duloxetine scripts, 162, cm, 11/14/21... Start Date: 11/14/21 Status: Ordered empagliflozin 10 mg oral tablet 1 tablet = 10 mg, By Mouth, Daily in AM, # 30 tablet, 5 Refills, Maintenance, 02/20/22 12:04:00 EST, Tablet, [facility] Partial fill upon patient request if the prescription is for aschedule II opioid drug., 163, cm, 02/11/22 19:19:0... Start Date: 02/20/22 Status: Ordered fluticasone 50 mcg/inh nasal spray See Instructions, USE 1 SPRAY IN BOTH NOSTRILS 2 TIMES A DAY, # 16 mL, 1 Refills, 07/08/21 9:44:00 EDT, [facility] 30, USE 1 SPRAY IN BOTH NOSTRILS 2 TIMES A DAY, 162.5, cm, :49:00 EDT, Height, 85.8, kg, 06/04/21 10:03:00 ES... Start Date: 07/08/21 Status: Ordered ibuprofen 800 mg oral tablet 1, tablet, By Mouth, 3 times a day, PRN, # 90 tablet, Refills 1, Maintenance, NEEDED FOR PAIN, 03/05/22 15:56:00 EST, Route to Pharmacy Electronically, [facility], 163, cm, 02/11/22 19:19:00 EST, Height, 83, kg, 02/11/22 19:19:00 EST, Dry... Start Date: 03/05/22 Status: Ordered Januvia 100 mg oral tablet 1 tablet = 100 mg, By Mouth, Daily, # 90 tablet, 3 Refills, Maintenance, 06/18/21 21:04:00 EDT, Tablet, [facility]., 162.5, cm, 06/17/21 13:04:00 EDT, Height, 85.8, kg, 06/04/21 10:03:00 EST, Dry Weight Start Date: 06/18/21 Status: Ordered Lantus 100 u/ml subcutaneous solution = 50 units, Subcutaneous Injection, Daily, # 15 mL, 2 Refills, Maintenance, 01/06/22 12:07:00 EDT, Solution, [facility], ;, 163, cm, 01/03/22 11:20:00 EDT, Height, 84, kg, 01/02/22 19:36:00 EDT, Dry Weight Start Date: 01/06/22 Status: Ordered lidocaine 5% topical film 1 patch, Topically, Daily, PRN Pain , Mild, remove after 12 hours, # 13 each, 5 Refills, Maintenance, 12/26/21 10:37:00 EDT, Film, [facility], Partial fill upon patient request if theprescription is for a schedule II opioid drug., 1 p... Start Date: 12/26/21 Status: Ordered lisinopril 20 mg oral tablet 20 mg, 1, tablet, By Mouth, Daily, # 90 tablet, Refills 3, Tot. Refills 3, Maintenance, 08/28/21 9:07:00 EDT, Route to Pharmacy Electronically, [facility], 162, cm, 08/22/21 9:46:00 EDT, Height, 86, kg, 07/23/21 0:58:00 EDT, Dry Weight Start Date: 08/28/21 Status: Ordered Melatonin 10 mg oral tablet 1 tablet = 10 mg, By Mouth, Daily at bedtime, # 30 each, 5 Refills, Maintenance, 11/14/21 11:42:00 EDT, [facility], Partial fill upon patient request if the [...] PRN NEEDED, # 30 capsule, 2 Refills, [facility], 162, cm, 09/06/21 13:04:00 EDT, Height, 86, kg, 07/23/21 0:58:00 EDT, Dry Weight Start Date: 10/02/21 Status: Ordered oxyCODONE 15 mg oral tablet 1 tablet = 15 mg, By Mouth, 3 times a day, for 28 days, On contract at [facility]., # 84 tablet, 0 Refills, Acute 03/26/22 15:15:00 EST, 02/26/22 15:15:00 EST, [facility], Partial fill uponpatient request if the prescription [...] 07/08/21 9:39:00 EDT, Route to Pharmacy Electronically, [facility], 162.5, cm, 07/08/21 8:49:00 EDT, Height, 85.8, kg, 06/04/21 10:0... Start Date: 07/08/21 Status: Ordered tiZANidine 4 mg oral capsule 1 capsule, By Mouth, 3 times a day, # 90 capsule, 0 Refills, Maintenance, 03/06/22 16:55:00 EST, [facility], 163, cm, 02/11/22 19:19:00 EST, Height, 83, kg, 02/11/22 19:19:00 EST, Dry Weight Start Date: 03/06/22 Status: Ordered Trulicity Pen 3 mg/0.5 mL subcutaneous solution See Instructions, INJECT 0.5 ML SUBCUTANEOUSLY EVERY WEEK. 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 Fabian [phone] Confirmed Active Syncope and collapse Confirmed Active [...] Team Personnel Name: Sindy Bernal RN Position: [facility] RN Member Role: Primary Care Nurse Name: Graciela Thrasher RN Position: [facility] SN RN Member Role: Primary Care Nurse Name: Stevie Angel RN Position: [facility] RN Member Role: Primary Care Nurse Name: Leonora Bai NP Position: [facility] PCO Associate Professional Member Role: PCP Address: Address: [address] [place] [address] Name: Keily Ortega RN Position: [facility] RN Member Role: Primary Care Nurse Name: Graciela Munroe RN Position: [facility] RN Member Role: Primary Care Nurse Name: Nichole Pichardo RN Position: [facility] RN Member Role: Primary Care Nurse Name: Melvin Whitfield RN Position: [facility] PCO RN Member Role: Primary Care Nurse Name: Phuong Berkowitz RN Position: [facility] RN Member Role: Primary Care Nurse Name: Joselyn Rain RN Position: [facility] Hospital Evp Strategy Member Role: Primary Care Nurse Care Team Related Persons Name: NICK IRA Address: home [address] [place] [address] Name: JHON LARSON Address: [address] [place] [address] Name: JHON LARSON Address: [address] [place] [address] Name: GALO CATALAN Name: NANCY CATALAN Address: home [address] [place] [address]
--- OUTSIDE RECORDS SUMMARY | 2023-03-25 08:23 | XMS_ITS | Continuity of Care Document ---
Author Name Unknown Organization [facility] Address [address] [place] [address]- Care Team Providers Care Cook Vegetable Name Role Phone Richardson PECAN SHELLER, Leonora Pérez Primary Care Physician Encounter [facility] Date(s): 10/21/22 - 11/20/22 [facility] [address] [place] [address]- Allergies, Adverse Reactions, Alerts Substance Reaction Severity Status morphine Active gabapentin swelling Active Lyrica dysphagia Active SEROquel body swelling - all over Act tony MetFORMIN Hydrochloride ER black tarry stool Active Immunizations Given and Recorded Vaccine Date Status Refusal Reason [id number] 12y+ bivalent booster vax 01/30/22 Given influenza virus vaccine, inactivated 01/30/22 Give n influenza virus vaccine, inactivated 02/04/21 Give n influenza virus vaccine, inactivated 1 04/19/20 Gi tonio influenza virus vaccine, inactivated 03/12/19 Give n influenza virus vaccine, inactivated 01/19/18 Give n influenza virus vaccine, inactivated 02/16/17 Give n pneumococcal 20-valent conjugate vaccine 12/26/21 Given SARS-CoV-2 mRNA ([id number]) vax 05/14/21 Given SARS-CoV-2 (COVID-19) mRNA BNT-162b2 [...] 09/25/22 17:00:00 EDT, Route to Pharmacy Electronically, [facility], Partial fill upon patient request if the prescription is for a sched... Start Date: 09/25/22 Status: Ordered Advair Diskus 500 mcg-50 mcg inhalation powder 1, inhalation, Inhalation, 2 times a day, rinse mouth and throat after use, # 60 each, Refills 11, Tot. Refills 11, Maintenance, 09/25/22 17:00:00 EDT, Inhaler, Route to Pharmacy Electronically, [id number], [facility]... Start Date: 09/25/22 Status: Ordered albuterol 0.083% inhalation solution 3 mL = 2.5 mg, 0 Refills, Maintenance, 02/06/22 16:39:00 EDT, Partial fill upon patient request if the prescription is for a schedule II opioid drug. Start Date: 02/06/22 Status: Ordered All Day Allergy 10 mg oral tablet 1 tablet, By Mouth, Daily, # 90 tablet, 3 Refills, Maintenance, 11/20/22 16:48:00 EDT, [facility], 163, cm, 11/20/22 16:00:00 EDT, Height, 83, kg, 02/11/22 19:19:00 EST, Dry Weight Start Date: 11/20/22 Status: Ordered amLODIPine 5 mg oral tablet 5 mg, 1, tablet, By Mouth, Daily, # 90 tablet, Refills 3, Tot. Refills 3, Maintenance, 04/29/22 11:56:00 EST, Route to Pharmacy Electronically, [facility], Partial fill upon patient request if the prescription is for a schedule II opio... Start Date: 04/29/22 Status: Ordered atorvastatin 40 mg oral tablet 1 tablet = 40 mg, By Mouth, Daily, # 90 tablet, 3 Refills, Maintenance, 09/25/22 16:58:00 EDT, Tablet, [facility] Partial fill upon patient request [...] Gm, 1 Refills, Maintenance, 09/03/22 14:02:00 EDT, [facility], 15, APPLY TOPICALLY TO AFFECTED AREA TWO [...] 11/27/22 16:35:00 EDT, 11/20/22 16:35:00 EDT, Tablet, [facility] Partial fill upon patient request if the prescription is for a schedule II opioid d... Start Date: 11/20/22 Stop Date: 11/27/22 Status: Ordered duloxetine 60 mg oral enteric coated capsule 2 capsule = 120 mg, By Mouth, Daily, # 60 capsule, 11 Refills, Maintenance, 11/20/22 16:48:00 EDT, Capsule, [facility] Partial fill upon patient request. NOT INCREASED DOSE. Please cancel all other Duloxetine scripts, 163, cm, ... Start Date: 11/20/22 Status: Ordered empagliflozin 10 mg oral tablet 1 tablet = 10 mg, By Mouth, Daily in AM, # 90 tablet, 3 Refills, Maintenance, 09/25/22 17:01:00 EDT, Tablet, [facility]., Partial fill [...] 10/22/22 15:19:00 EDT, Route to Pharmacy Electronically, [facility]., 163, cm, 09/25/22 16:20:00 EDT, Height, 83, kg, 11/0... Start Date: 10/22/22 Status: Ordered lidocaine 5% topical film 1 patch, Topically, Daily, PRN Pain , Mild, remove after 12 hours, # 13 each, 5 Refills, Maintenance, 09/25/22 16:59:00 EDT, Film, [facility]., Partial fill upon patient request if theprescription is for a schedule II opioid drug., 1 p... Start Date: 09/25/22 Status: Ordered lisinopril 20 mg oral tablet 20 mg, 1, tablet, By Mouth, Daily, # 90 tablet, Refills 3, Tot. Refills 3, Maintenance, 11/20/22 16:48:00 EDT, Route to Pharmacy Electronically, [facility]., 163, cm, 11/20/22 16:00:00EDT, Height, 83, kg, 02/11/22 19:19:00 EST, Dry Weight Start Date: 11/20/22 Status: Ordered mirtazapine 30 mg oral tablet 1 tablet = 30 mg, By Mouth, Daily at bedtime, # 90 tablet, 1 Refills, Maintenance, 09/25/22 17:00:00 EDT, Tablet, [facility]., Partial fill upon patient request if the prescription is for a schedule II opioid drug., 163, cm, 09/25/22 16... Start Date: 09/25/22 Status: Ordered omeprazole 40 mg oral enteric coated capsule 1 capsule, By Mouth, Daily, PRN NEEDED, # 30 capsule, 2 Refills, 08/26/22 13:27:00 EDT, [facility] 163, cm, 08/14/22 16:50:00 EDT, Height, 83, kg, 02/11/22 19:19:00 EST, Dry Weight Start Date: 08/26/22 Status: Ordered oxyCODONE 15 mg oral tablet 1 tablet = 15 mg, By Mouth, 3 times a day, on contract at [facility], # 84 tablet, 0 Refills, Maintenance, 10/24/22 11:04:00 EDT, [facility]., Partial fill upon [...] 90 capsule, 1 Refills, Maintenance,09/25/22 16:54:00 EDT, [facility] 163, cm, 09/25/22 16:20:00 EDT, Height, 83, kg, 02/11/22 19:19:00 EST, Dry Weight Start Date: 09/25/22 Status: Ordered traZODone 50 mg oral tablet 1/2 TO 1 TABLET, By Mouth, Daily at bedtime, # 30 tablet, Refills 5, Maintenance, 08/29/22 11:31:00EDT, Route to Pharmacy Electronically, [facility], 163, cm, 08/14/22 16:50:00 EDT, Height, 83, kg, 02/11/22 19:19:00 EST, Dry Weight Start Date: 08/29/22 Status: Ordered triamcinolone 55 mcg/inh nasal spray 1 sprays = 55 mcg, Nares, Both, Daily, # 1 each, 5 Refills, Maintenance, 08/14/22 16:59:00 EDT, [facility], Partial fill upon patient request if the prescription is for a schedule II opioid drug., 1 sprays Nares, Both Daily, 163, cm, 0... 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 Charlene Fabian [phone] Confirmed Active Syncope and collapse Confirmed Active Tobacco dependence Confirmed Active DM2 (diabetes mellitus, type 2) Confirmed 04/03/17 Active Incontinence of urine 3 Confirmed Active 1seen on MRI 10/2016, rec repeat imaging in October [address] Abd 09/18/16 at [facility], pending MRI 3urge and stress Social History Social History Type Response Smoking Status Current every day sm oker; Type: Cigarettes; Tobacco use times per day: 1/2 ppd; entered on: 12/24/17 Sex Patient Care team information Care Team Personnel Name: Sindy Bernal RN Position: [facility] RN Member Role: Primary Care Nurse Name: Graciela Thrasher RN Position: [facility] SN RN Member Role: Primary Care Nurse Name: Stevie Angel RN Position: [facility] RN Member Role: Primary Care Nurse Name: Leonora Bai NP Position: [facility] PCO Associate Professional Member Role: PCP Address: Address: [address] [place] [id number] Name: Keily Ortega RN Position: [facility] RN Member Role: Primary Care Nurse Name: Nichole Pichardo RN Position: [facility] RN Member Role: Primary Care Nurse Name: Melvin Whitfield RN Position: [facility] AMB Nurse Member Role: Primary Care Nurse Name: Phuong Berkowitz RN Position: [facility] RN Member Role: Primary Care Nurse Name: Joselyn Rain RN Position: [facility] Hospital Marketing Manager Member Role: Primary Care Nurse Care Team Related Persons Name: IRA ROMERO Address: home [address] [place] [address] Name: JHON LARSON Address: [address] [place] [address] Name: JHON LARSON Address: [address] [place] [address] Name: GALO CATALAN Name: NANCY CATALAN Address: home [address] [place] [address]
--- OUTSIDE RECORDS SUMMARY | 2023-03-25 08:23 | XMS_ITS | Continuity of Care Document ---
Author Name Unknown Organization [facility] Address [address] [place] [address]- Care Team Providers Care Induction Machine Operator Name Role Phone Aaron GERARDO, Pura Mahajan Primary Care Physician Encounter [facility] Date(s): 01/26/23 - 02/25/23 [facility] [address] [place] [address]- Allergies, Adverse Reactions, Alerts Substance Reaction Severity Status morphine Active gabapentin swelling Active Lyrica dysphagia Active MetFORMIN Hydrochloride ER black tarry stool Active SEROquel body swelling - all over Act tony Immunizations Given and Recorded Vaccine Date Status Refusal Reason [id number] 12y+ bivalent booster vax 01/30/22 Given influenza virus vaccine, inactivated 01/30/22 Give n influenza virus vaccine, inactivated 02/04/21 Give n influenza virus vaccine, inactivated 1 04/19/20 Gi tonio influenza virus vaccine, inactivated 03/12/19 Give n influenza virus vaccine, inactivated 01/19/18 Give n influenza virus vaccine, inactivated 02/16/17 Give n pneumococcal 20-valent conjugate vaccine 12/26/21 Given SARS-CoV-2 mRNA ([id number]) vax 05/14/21 Given SARS-CoV-2 (COVID-19) mRNA [id number]-162b2 [...] 09/25/22 17:00:00 EDT, Route to Pharmacy Electronically, [facility], Partial fill upon patient request if the prescription is for a sched... Start Date: 09/25/22 Status: Ordered Advair Diskus 500 mcg-50 mcg inhalation powder 1, inhalation, Inhalation, 2 times a day, rinse mouth and throat after use, # 60 each, Refills 11, Tot. Refills 11, Maintenance, 09/25/22 17:00:00 EDT, Inhaler, Route to Pharmacy Electronically, [id number], [facility]... Start Date: 09/25/22 Status: Ordered albuterol 0.083% inhalation solution 3 mL = 2.5 mg, Neb, Every 4 hours, PRN Wheezing/Shortness of Breath, # 100 each, 11 Refills, Maintenance, 12/26/22 8:14:00 EDT, Inhalation Solution, [facility], Partial fill upon patient request if the prescription is for a schedule II... Start Date: 12/26/22 Status: Ordered All Day Allergy 10 mg oral tablet 1 tablet, By Mouth, Daily, # 90 tablet, 3 Refills, Maintenance, 11/20/22 16:48:00 EDT, [facility], 163, cm, 11/20/22 16:00:00 EDT, Height, 83, kg, 02/11/22 19:19:00 EST, Dry Weight Start Date: 11/20/22 Status: Ordered amLODIPine 5 mg oral tablet 5 mg, 1, tablet, By Mouth, Daily, # 90 tablet, Refills 3, Tot. Refills 3, Maintenance, 04/29/22 11:56:00 EST, Route to Pharmacy Electronically, [facility], Partial fill upon patient request if the prescription is for a schedule II opio... Start Date: 04/29/22 Status: Ordered atorvastatin 40 mg oral tablet 1 tablet = 40 mg, By Mouth, Daily, # 90 tablet, 3 Refills, Maintenance, 09/25/22 16:58:00 EDT, Tablet, [facility] [place] Partial fill upon patient request if the [...] Gm, 2 Refills, Maintenance, 12/26/22 8:13:00 EDT, [facility] 15, APPLY TOPICALLY TO AFFECTED AREA TWO TIMES A DAY FOR TWO WEEKS, 163, cm, ... Start Date: 12/26/22 Status: Ordered docusate-senna 50 mg-187 mg oral tablet 2 tablet, By Mouth, 2 times a day, PRN Constipation, # 100 tablet, 11 Refills, Maintenance, 08/14/22 16:57:00 EDT, Tablet, [facility] [place]., Partial fill upon patient request if the [...] 3 Refills, Maintenance, 09/25/22 17:01:00 EDT, Tablet, [facility], Partial fill upon patient request if the prescription is for aschedule II opioid drug., 163, cm, 09/25/22 16:20:0... Start Date: 09/25/22 Status: Ordered ibuprofen 800 mg oral tablet 1, tablet, By Mouth, 3 times a day, PRN, # 90 tablet, Refills 1, Tot. Refills 1, Maintenance, NEEDED FOR PAIN, 10/22/22 15:19:00 EDT, Route to Pharmacy Electronically, [facility], 163, cm, 09/25/22 16:20:00 EDT, Height, 83, kg, 11/0... Start Date: 10/22/22 Status: Ordered Januvia 100 mg oral tablet 1 tablet, By Mouth, Daily, # 30 tablet, 11 Refills, Maintenance, 11/26/22 10:02:00 EDT, [facility], 163, cm, 11/20/22 16:00:00 EDT, Height, 83, kg, 02/11/22 19:19:00 EST, Dry Weight Start Date: 11/26/22 Status: Ordered lidocaine 5% topical film 1 patch, Topically, Daily, PRN Pain , Mild, remove after 12 hours, # 13 each, 5 Refills, Maintenance, 09/25/22 16:59:00 EDT, Film, [facility], Partial fill upon patient request if theprescription is for a schedule II opioid drug., 1 p... Start Date: 09/25/22 Status: Ordered lisinopril 20 mg oral tablet 20 mg, 1, tablet, By Mouth, Daily, # 90 tablet, Refills 3, Tot. Refills 3, Maintenance, 11/20/22 16:48:00 EDT, Route to Pharmacy Electronically, [facility], 163, cm, 11/20/22 16:00:00EDT, Height, 83, kg, 02/11/22 19:19:00 EST, Dry Weight Start Date: 11/20/22 Status: Ordered mirtazapine 30 mg oral tablet 1 tablet = 30 mg, By Mouth, Daily at bedtime, # 90 tablet, 1 Refills, Maintenance, 09/25/22 17:00:00 EDT, Tablet, [facility] [place] Partial fill upon patient request if the prescription is for a schedule II opioid drug., 163, cm, 09/25/22 16... Start Date: 09/25/22 Status: Ordered omeprazole 40 mg oral enteric coated capsule 1 capsule, By Mouth, Daily, PRN NEEDED, # 90 capsule, 1 Refills, Maintenance, 11/25/22 10:53:00 EDT, [facility], 163, cm, 11/20/22 16:00:00 EDT, Height, 83, kg, 02/11/22 19:19:00 EST, Dry Weight Start Date: 11/25/22 Status: Ordered oxyCODONE 15 mg oral tablet 1 tablet = 15 mg, By Mouth, Every 8 hours, PRN Pain , Severe, [facility] checked. Opioid agreement at [facility], # 84 tablet, 0 Refills, Maintenance, 02/18/23 16:52:00 EST, [facility], Partial fill upon patient request if the prescription is... Start Date: 02/18/23 Stop Date: 03/18/23 Status: Ordered prazosin 2 mg oral capsule [...] 01/27/23 9:28:00 EDT, Route to Pharmacy Electronically, [facility]., 163, cm, 11/20/22 16:00:00 EDT, Height, 83, kg... Start Date: 01/27/23 Status: Ordered traZODone 50 mg oral tablet 1/2 TO 1 TABLET, By Mouth, Daily at bedtime, # 30 tablet, Refills 5, Tot. Refills 5, Maintenance, 02/18/23 14:55:00 EST, Route to Pharmacy Electronically, [facility] [place] 163, cm, 11/20/22 16:00:00 EDT, Height, 83, kg, 02/11/22 19:19:00 ES... Start Date: 02/18/23 Status: Ordered triamcinolone 55 mcg/inh nasal spray 1 sprays = 55 mcg, Nares, Both, Daily, # 1 each, 5 Refills, Maintenance, 08/14/22 16:59:00 EDT, [facility], Partial fill upon patient request if the prescription is for a schedule II opioid drug., 1 sprays Nares, Both Daily, 163, cm, 0... 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 Active Depression: Major depressive disorder/ setting of bipolar Confirmed Active Obesity Confirmed Active MARILIN on CPAP - Obstructive sleep apnea, sleep team /due Confirmed Active Panic attacks Confirmed Active BHN/BHCP Calibration 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 Charlene Fabian [phone] Confirmed Active Syncope and collapse Confirmed Active Tobacco dependence Confirmed Active DM2 (diabetes mellitus, type 2) Confirmed 04/03/17 Active Incontinence of urine 5 Confirmed Active 1on polysomnogram 2seen on MRI 10/2016, rec repeat imaging in October 2017 pain managemnt team/ Dr Diop indicated they thought pain was fibromyalgia 4seen on CT Abd 09/18/16 at [facility], pending MRI 5urge and stress Social History Social History Type Response Smoking Status Current every day sm oker; Type: Cigarettes; Tobacco use times per day: 1/2 ppd; entered on: 12/24/17 Sex Patient Care team information Care Team Personnel Name: Sindy Bernal RN Position: [facility] RN Member Role: Primary Care Nurse Name: Graciela Thrasher RN Position: [facility] SN RN Member Role: Primary Care Nurse Name: Stevie Angel RN Position: [facility] RN Member Role: Primary Care Nurse Name: Keily Ortega RN Position: [facility] RN Member Role: Primary Care Nurse Name: Graciela Munroe RN Position: [facility] RN Member Role: Primary Care Nurse Name: Nichole Pichardo RN Position: [facility] RN Member Role: Primary Care Nurse Name: Melvin Whitfield RN Position: [facility] Nurse Member Role: Primary Care Nurse Name: Phuong Berkowitz RN Position: [facility] RN Member Role: Primary Care Nurse Name: Pura Walker MD Position: [facility] Physician - Primary Care Member Role: PCP Address: Address: [address] [place] [address] Name: Joselyn Rain RN Position: [facility] Hospital Playground Attendant Member Role: Primary Care Nurse Care Team Related Persons Name: IRA ROMERO Address: home [address] [place] [address] Name: JHON LARSON Address: home [address] [place] [address] Name: JHON LARSON Address: home [address] [place] [address] Name: GALO CATALAN Name: NANCY CATALAN Address: home [address] [place] [address]
--- OUTSIDE RECORDS SUMMARY | 2023-03-25 08:23 | XMS_ITS | Continuity of Care Document ---
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 Allergies, Adverse Reactions, Alerts Substance Reaction [...] 12:48:00 EST, Powder, Route to Pharmacy Electronically, [id number], [id number], 158, cm, 04/26/19 9:58:00 EST, [...] tablet, 5 Refills, Maintenance, 10/06/19 7:45:00EDT, Tablet, [id number], 160, cm, 09/28/19 8:58:00 EDT, Height, 86.8, kg, 07/22/19 15:13:00EDT, Dry Weight Start Date: 10/06/19 Status: Ordered atorvastatin 20 mg oral tablet 1 tablet = 20 mg, By Mouth, Daily, Maintenance, 05/24/19 9:12:00 EST, Tablet Start Date: 05/24/19 Status: Ordered capsaicin 0.025% topical cream 1 application, Topically, 3 times a day, # 45 Gm, 3 Refills, Maintenance, 11/01/19 15:25:00 EDT, Cream, [id number], 1 application Topically 3 times a day, 163, cm, 11/01/19 14:40:00 EDT, Height, 80, kg, 10/29/19 0:29:00 EDT, Dry Weight Start Date: 11/01/19 Status: Ordered cetirizine 10 mg oral tablet 1 tablet = 10 mg, By Mouth, Daily, # 30 tablet, 5 Refills, Maintenance, 04/19/19 15:40:00 EST, Tablet, [id number], 158, cm, 04/04/19 15:21:00 EST, Height, [...] 3 Refills, Maintenance, 09/02/19 10:23:00 EDT, Tablet, [id number], PLEASE CANCEL LISINOPRIL, 160, cm, 07/22/19 [...] 5 Refills, Maintenance, 04/28/19 16:05:00 EST, Tablet, [id number], 158, cm, 04/28/19 14:51:00 EST, Height, [...] patch, 5 Refills, Maintenance, 06/27/19 14:37:00 EDT, [id number], 1 patch Topically Daily,Instr:For chronic radicular [...] not to exceed 3000 mg/day. instructions in syriac, # 120 tablet, 2 Refills, Maintenance, 11/01/19 15:24:00 EDT, Tablet, [id number], 163, cm, 11/01/19 14:40:00 EDT, Height, 80, kg, 07/... Start Date: 11/01/19 Status: Ordered metFORMIN 1000 mg oral tablet 1 tablet = 1,000 mg, By Mouth, 2 times a day, # 60 tablet, 2 Refills, Maintenance, 11/09/19 16:12:00 EDT, Tablet, [id number], 163, cm, 11/01/19 14:40:00 EDT, Height, 80, kg, 10/29/19 0:29:00 EDT, Dry Weight Start Date: 11/09/19 Status: Ordered mirtazapine 30 mg oral tablet 1 tablet = 30 mg, By Mouth, Daily at bedtime, Maintenance, 05/24/19 9:12:00 EST, Tablet Start Date: 05/24/19 Status: Ordered omeprazole 20 mg oral enteric coated capsule 1 capsule = 20 mg, By Mouth, Daily, Use as little as possible to control symptoms., # 30 capsule, 2Refills, Maintenance, 10/06/19 7:45:00 EDT, EC Capsule, [id number], cancel Ranitidine, 160,cm, 09/28/19 8:58:00 EDT, Height, 86.8, kg, ... Start Date: 10/06/19 Status: Ordered oxyCODONE 10 mg oral tablet 1 tablet = 10 mg, By Mouth, 2 times a day, PRN pain, for 28 days, on contract at [facility]., # 56 tablet, 0 Refills, Acute 12/05/19 9:20:00 EDT, 11/07/19 9:20:00 EDT, [id number], Partial fill uponpatient request, 163, cm, 11/01/19 14:40:00 EDT, He... Start Date: 11/07/19 Stop Date: 12/05/19 Status: Ordered Pen [place], 31 G x 5 mm BD Ultra [...] 05/30/19 18:52:00 EST, Route to Pharmacy Electronically, [id number], 160, cm, 05/30/19 18:08:00 EST, Height, [...] 06/10/19 16:12:00 EST, Route to Pharmacy Electronically, [id number], 160, cm, 06/01/19 14:08:00 EST, Height, 88.9, kg, 05/23/19 22:09:00 EST,... Start Date: 06/10/19 Status: Ordered Spiriva Respimat 60 ACT 2.5 mcg/inh inhalation aerosol 2 puffs, Inhalation, Daily, # 1 each, 5 Refills, Maintenance, 04/26/19 10:30:00 EST, [id number], 158, cm, 04/26/19 9:58:00 EST, Height, 82, kg, 04/01/19 16:10:00 EST, Dry Weight Start Date: 04/26/19 Status: Ordered tiZANidine 4 mg oral tablet 4 mg, 1, tablet, By Mouth, Every 8 hours, # 84 tablet, Refills 1, Tot. Refills 1, Maintenance, 11/24/19 8:16:00 EDT, Route to Pharmacy Electronically, [id number], 163, cm, 11/01/19 14:40:00 EDT, Height, [...] [address] [place]18[place] [facility] 6surgically repaired July 2015 Dr. Sg MENDEZ 7urge and stress Social History Social History Type Response Tobacco Use: Pt states she q uit smoking 1 week ago. Sex Female
--- OUTSIDE RECORDS SUMMARY | 2023-03-25 08:23 | XMS_ITS | Continuity of Care Document ---
Author Name Unknown Organization [facility] Address [address] [place] [address]- Care Team Providers Care Divisional Human Resources Director Name Role Phone Richardson QUIROZ, Leonora Pérez Primary Care Physician Encounter [facility] Date(s): 02/11/22 - 02/18/22 [facility] [address] [place] [address]- Encounter Diagnosis Boil(Discharge Diagnosis) - 02/11/22 Attending Physician: Jean Paul Dupree DO Referring Physician: Richardson QUIROZ, Leonora Pérez Allergies, Adverse Reactions, Alerts Substance Reaction Severity Status morphine Active gabapentin swelling Active Lyrica dysphagia Active SEROquel body swelling - all over Act tony MetFORMIN Hydrochloride ER black tarry stool Active Immunizations Given and Recorded Vaccine Date Status Refusal Reason [id number] 12y+ bivalent booster vax 01/30/22 Given influenza virus vaccine, inactivated 01/30/22 Give n influenza virus vaccine, inactivated 02/04/21 Give n influenza virus vaccine, inactivated 1 04/19/20 Gi tonio influenza virus vaccine, inactivated 03/12/19 Give n influenza virus vaccine, inactivated 01/19/18 Give n influenza virus vaccine, inactivated 02/16/17 Give n pneumococcal 20-valent conjugate vaccine 12/26/21 Given SARS-CoV-2 mRNA ([id number]) vax 05/14/21 Given SARS-CoV-2 (COVID-19) mRNA [id number]-[id number] [...] 10/22/21 9:23:00 EDT, Route to Pharmacy Electronically, [facility], Partial fill uponpatient request if the [...] 08/30/21 12:06:00 EDT, Route to Pharmacy Electronically, [facility], Partial fill upon patient request if the prescription is for a sche... Start Date: 08/30/21 Status: Ordered amLODIPine 5 mg oral tablet 5 mg, 1, tablet, By Mouth, Daily, # 90 tablet, Refills 0, Tot. Refills 0, Maintenance, 01/30/22 10:50:00 EDT, Route to Pharmacy Electronically, [facility], Partial fill upon patient request if the prescription is for a schedule II opio... Start Date: 01/30/22 Status: Ordered cetirizine 10 mg oral tablet 1 tablet = 10 mg, By Mouth, Daily, # 30 tablet, 5 Refills, Maintenance, 08/28/21 9:07:00 EDT, Tablet, [facility], 162, cm, 08/22/21 9:46:00 EDT, Height, 86, kg, 07/23/21 0:58:00 EDT, Dry Weight Start Date: 08/28/21 Status: Ordered cholecalciferol 5000 intl units oral capsule 1 capsule = 125 mcg, By Mouth, Daily, with food, # 100 capsule, 2 Refills, Maintenance, 02/11/21 11:17:00 EST, Capsule, [facility]/pharmacy #[id number], Partial fill upon patient [...] tablet, 0 Refills, Maintenance, 10/24/2219:09:00 EDT, Tablet, [facility] Partial fill upon patient request if the prescription is for a schedule II opioid drug., 2 tablet By... Start Date: 10/23/21 Status: Ordered duloxetine 60 mg oral enteric coated capsule 2 capsule = 120 mg, By Mouth, Daily, # 60 capsule, 5 Refills, Maintenance, 11/14/21 11:41:00 EDT, Capsule, [facility] Partial fill upon patient request. NOT INCREASED DOSE. Please cancel all other Duloxetine scripts, 162, cm, 11/14/21... Start Date: 11/14/21 Status: Ordered empagliflozin 10 mg oral tablet 1 tablet = 10 mg, By Mouth, Daily in AM, # 30 tablet, 5 Refills, Maintenance, 08/28/21 9:07:00 EDT,Tablet, [facility] Partial fill upon patient request if the prescription is for a schedule II opioid drug., 162, cm, 08/22/21 9:46:00... Start Date: 08/28/21 Status: Ordered fluticasone 50 mcg/inh nasal spray See Instructions, USE 1 SPRAY IN BOTH NOSTRILS 2 TIMES A DAY, # 16 mL, 1 Refills, 07/08/21 9:44:00 EDT, [facility]., 30, USE 1 SPRAY IN BOTH NOSTRILS 2 TIMES A DAY, 162.5, cm, 228:49:00 EDT, Height, 85.8, kg, 06/04/21 10:03:00 ES... Start Date: 07/08/21 Status: Ordered ibuprofen 800 mg oral tablet 800 mg, 1, tablet, By Mouth, 3 times a day, PRN, # 90 tablet, Refills 1, Tot. Refills 1, Maintenance, Pain , Mild, 01/06/22 12:22:00 EDT, Route to Pharmacy Electronically, [facility].,please fill 800mg instead of 600mg, 163, cm, 01/03/... Start Date: 01/06/22 Status: Ordered Januvia 100 mg oral tablet 1 tablet = 100 mg, By Mouth, Daily, # 90 tablet, 3 Refills, Maintenance, 06/18/21 21:04:00 EDT, Tablet, [facility]., 162.5, cm, 06/17/21 13:04:00 EDT, Height, 85.8, kg, 06/04/21 10:03:00 EST, Dry Weight Start Date: 06/18/21 Status: Ordered Lantus 100 u/ml subcutaneous solution = 50 units, Subcutaneous Injection, Daily, # 15 mL, 2 Refills, Maintenance, 01/06/22 12:07:00 EDT, Solution, [facility]., ;, 163, cm, 01/03/22 11:20:00 EDT, Height, 84, kg, 01/02/22 19:36:00 EDT, Dry Weight Start Date: 01/06/22 Status: Ordered lidocaine 5% topical film 1 patch, Topically, Daily, PRN Pain , Mild, remove after 12 hours, # 13 each, 5 Refills, Maintenance, 12/26/21 10:37:00 EDT, Film, [facility]., Partial fill upon patient request if theprescription is for a schedule II opioid drug., 1 p... Start Date: 12/26/21 Status: Ordered lisinopril 20 mg oral tablet 20 mg, 1, tablet, By Mouth, Daily, # 90 tablet, Refills 3, Tot. Refills 3, Maintenance, 08/28/21 9:07:00 EDT, Route to Pharmacy Electronically, [facility]., 162, cm, 08/22/21 9:46:00 EDT, Height, 86, kg, 07/23/21 0:58:00 EDT, Dry Weight Start Date: 08/28/21 Status: Ordered Melatonin 10 mg oral tablet 1 tablet = 10 mg, By Mouth, Daily at bedtime, # 30 each, 5 Refills, Maintenance, 11/14/21 11:42:00 EDT, [facility], Partial fill upon patient request if [...] PRN NEEDED, # 30 capsule, 2 Refills, [facility], 162, cm, 09/06/21 13:04:00 EDT, Height, 86, kg, 07/23/21 0:58:00 EDT, Dry Weight Start Date: 10/02/21 Status: Ordered oxyCODONE 15 mg oral tablet 1 tablet = 15 mg, By Mouth, 3 times a day, for 28 days, On contract at [facility]. Switching regimen and disposing of current tablets in exchange for these, # 84 tablet, 0 Refills, Acute 02/27/22 10:25:00 EST, 01/30/22 10:25:00 EDT, [facility]... Start Date: 01/30/22 Stop Date: 02/27/22 [...] 07/08/21 9:39:00 EDT, Route to Pharmacy Electronically, [facility]., 162.5, cm, 07/08/21 8:49:00 EDT, Height, 85.8, kg, 06/04/21 10:0... Start Date: 07/08/21 Status: Ordered tiZANidine 4 mg oral capsule 1 capsule = 4 mg, By Mouth, 3 times a day, # 90 capsule, 0 Refills, Maintenance, 02/06/22 15:53:00 EDT, [facility], Partial fill upon patient request if the prescription is for a schedule II opioid drug., 163, cm, 02/06/22 15:10:00 EDT... Start Date: 02/06/22 Stop Date: 03/08/22 Status: Ordered Trulicity Pen 3 mg/0.5 mL subcutaneous solution See Instructions, INJECT 0.5 ML SUBCUTANEOUSLY EVERY WEEK. 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 [phone] Confirmed Active Syncope and collapse Confirmed Active Tobacco dependence Confirmed Active DM2 (diabetes mellitus, type 2) Confirmed 04/03/17 Active Incontinence of urine 3 Confirmed Active 1seen on MRI 10/2016, rec repeat imaging in October [address] Abd 09/18/16 at [facility], pending MRI 3urge and stress Diagnosis Diagnosis Type Effective Dates Health Status Clini roseanne Service Informant Boil Discharge Diagnosis 02/11/22 Vital Signs Most recent to oldest [Reference Range]: 1 Height 163 cm (02/11/22 1:44 PM) Oxygen Saturation [94-100 %] 99 % (02/11/22 1:44 PM) Pulse Rate [55-90 bpm] 70 bpm (02/11/22 1:44 PM) Blood Pressure [90-138/55-84 mm Hg] 121/ 88mm Hg (02/11/22 1:44 PM) Respiratory Rate [16-30 br/min] 20 br/mi n (02/11/22 1:44 PM) Temperature [96.8-100.4 DegF] 97.7 DegF (02/11/22 1:44 PM) Mode of Delivery (Oxygen) Room air (02/11/22 1:44 PM) Blood pressure sites Arm, right (02/11/22 1:44 PM) Temperature Route Temporal (02/11/22 1:44 PM) Social History Social History Type Response Smoking Status Current every day sm oker; Type: Cigarettes; Tobacco use times per day: 1/2 ppd; entered on: 12/24/17 Sex Note * Pattie Benson: PERFORM, SIGN, VERIFY Event Display: Patient Education/Instruction Authored Date: [id number] [facility] *[facility] Clinical Summary Name HUANG YIN Age 51 Years 1970 PCP Richardson QUIROZ, Leonora Pérez PCP Visit Date 02/11/2022 11:44:00 Additional Instructions: Scheduled Appointments?? Future Appointments ?No Future Appointments Scheduled Follow-Up Instructions ?? Diagnosis Furuncle, unspecified Medications: Please continue your medications until treatment is completed or stopped by your provider. Discuss any questions related to medications with your provider. Medications to Continue with No Changes These medications were not printed or sent to your pharmacy Acetaminophen (acetaminophen 325 mg oral tablet) 2 tab(s) Oral 3 times a day. Refills: 1. Next Dose: Albuterol (albuterol 0.083% inhalation solution) 3 Milliliter. Next Dose: amiTRIPTYLINE (amitriptyline 25 mg oral tablet) 1 tab(s) Oral Daily at Bedtime. Refills: 2. Next Dose: Amlodipine (amLODIPine 5 mg oral tablet) 1 tab(s) Oral Daily. Refills: 0. Next Dose: Cetirizine (cetirizine 10 mg oral tablet) 1 tab(s) Oral Daily. Refills: 5. Next Dose: Cholecalciferol (cholecalciferol 5000 intl units oral capsule) 1 capsule Oral Daily. with food. Refills: 2. Next Dose: Clonazepam (clonazePAM 0.5 mg oral tablet) TAKE 1 TABLET BY MOUTH TWICE A DAY NEEDED. Next Dose: Clonidine (cloNIDine 0.1 mg oral tablet) 1 tab(s) Oral Daily at Bedtime. Next Dose: Docusate-Senna (docusate-senna 50 mg-187 mg oral tablet) 2 tab(s) Oral twice a day as needed Constipation. Refills: 0. Next Dose: dulaglutide (Trulicity Pen 3 mg/0.5 mL subcutaneous solution) INJECT 0.5 ML SUBCUTANEOUSLY EVERY WEEK. ROTATE INJECTION SITES. Refills: 5. Next Dose: Duloxetine (duloxetine 60 mg oral enteric coated capsule) 2 capsule Oral Daily. Refills: 5. Next Dose: empagliflozin (empagliflozin 10 mg oral tablet) 1 tab(s) Oral Daily in the morning. Refills: 5. Next Dose: Fluticasone Nasal (fluticasone 50 mcg/inh nasal spray) USE 1 SPRAY IN BOTH NOSTRILS 2 TIMES A DAY. Refills: 1. Next Dose: Fluticasone-Salmeterol (Advair Diskus 500 mcg-50 mcg inhalation powder) 1 inhalation Inhalation twice a day. rinse mouth and throat after use. Next Dose: Ibuprofen (ibuprofen 800 mg oral tablet) 1 tab(s) Oral 3 times a day as needed Pain , Mild. Refills: 1. Next Dose: Insulin Glargine (Lantus 100 u/ml subcutaneous solution) 50 unit(s) Subcutaneous Injection Daily. Refills: 2. Next Dose: Lidocaine Topical (lidocaine 5% topical film) 1 patch(es) Topically Daily as needed Pain , Mild. remove after 12 hours. Refills: 5. Next Dose: Lisinopril (lisinopril 20 mg oral tablet) 1 tab(s) Oral Daily. Refills: 3. Next Dose: Melatonin (Melatonin 10 mg oral tablet) 1 tab(s) Oral Daily at Bedtime. Refills: 5. Next Dose: Mirtazapine (mirtazapine 30 mg oral tablet) 1 tab(s) Oral Daily at Bedtime. Next Dose: Omeprazole (omeprazole 40 mg oral enteric coated capsule) 1 capsule Oral Daily as needed. Refills: 2. Next Dose: Oxycodone (oxyCODONE 15 mg oral tablet) 1 tab(s) Oral 3 times a day for 28 Days. On contract at [facility]. Switching regimen and disposing of current tablets in exchange for these. Refills: 0. Next Dose: Prazosin (prazosin 2 mg oral capsule) Next Dose: Senna (Senna 8.6 mg oral tablet) 1 tab(s) Oral Daily at Bedtime. Refills: 11. Next Dose: sitagliptin (Januvia 100 mg oral tablet) 1 tab(s) Oral Daily. Refills: 3. Next Dose: Tizanidine (tiZANidine 4 mg oral capsule) 1 capsule Oral 3 times a day for 30 Days. Refills: 0. Next Dose: Allergy Info:?? MetFORMIN Hydrochloride ER; SEROquel; Lyrica; gabapentin; morphine Medications Given This Visit Future Orders ?No future orders Vital Signs Height 163 cm Weight BMI Blood Pressure 121 mm Hg/88 mm Hg Temperature 97.7 DegF Pulse Rate 70 bpm Respiratory Rate 20 br/min 02 Sat Mode of Delivery 99 %/Room air You can now view a summary of your hospital visit from the comfort of your home through a free online portal called [employer]. [employer] is a website that allows you to securely view your medical information including discharge summary, medications and follow-up visits. ??You can alsosend a secure electronic message to your doctor???s office to request appointments, renew medications or just ask a question. You can enroll at [email or web address] or register during your next office visit. Disclaimer:?? The information provided is of a general nature and is intended to be used in conjunction with the recommendations and advice of your health care practitioner. ??Every effort has been made to ensure that the information provided is accurate and complete at the time it is provided to you however, as your needs change, or, as new ??information becomes available, different or additional instructions may be required. If you have questions, please consult with your primary care provider or pharmacist, as appropriate. ??This information is not intended to serve as substitution for assessment and evaluation by a qualified health care provider. If you do not have a primary care provider, you may find a [facility] provider by calling [facility] at [phone]. For information about the plan of care including goals and instructions for your diagnosis, please see the patient education orders section of this document. Patient Education Materials?? The content of this educational material or handout may have been modified, supplemented, or adapted from its original content and format to support your individualized medical care. Patient Care team information Care Team Personnel Name: Sindy Bernal RN Position: [facility] RN Member Role: Primary Care Nurse Name: Graciela Thrasher RN Position: [facility] SN RN Member Role: Primary Care Nurse Name: Stevie Angel RN Position: S RN Member Role: Primary Care Nurse Name: Leonora Bai NP Position: [facility] PCO Associate Professional Member Role: PCP Address: Address: [address] [place] [id number] Name: Keily Ortega RN Position: S RN Member Role: Primary Care Nurse Name: Graciela Munroe RN Position: S RN Member Role: Primary Care Nurse Name: Nichole Pichardo RN Position: S RN Member Role: Primary Care Nurse Name: Melvin Whitfield RN Position: [facility] PCO RN Member Role: Primary Care Nurse Name: Phuong Berkowitz RN Position: [facility] RN Member Role: Primary Care Nurse Name: Joselyn Rain RN Position: [facility] [employer] Freight Handler Member Role: Primary Care Nurse Care Team Related Persons Name: IRA ROMERO Address: home [address] [place] [address] Name: JHON LARSON Address: [address] [place] [address] Name: JHON LARSON Address: [address] [place] [address] Name: GALO CATALAN Name: NANCY CATALAN Address: home [address] [place] [address]
--- OUTSIDE RECORDS SUMMARY | 2023-03-25 08:23 | XMS_ITS | Continuity of Care Document ---
Author Name Unknown Organization [facility] Address [address] [place] [address]- Care Team Providers Care Supervisor Histology Name Role Phone Richardson QUIROZ, Leonora Pérez Primary Care Physician Encounter [facility] Date(s): 01/04/20 - 02/03/20 [facility] [address] [place] [address]- [facility] Allergies, Adverse Reactions, Alerts Substance Reaction [...] 12:48:00 EST, Powder, Route to Pharmacy Electronically, [id number], [id number], 158, cm, 04/26/19 9:58:00 EST, [...] 1 Refills, Maintenance, 02/03/20 13:47:00 EDT, Cream, [facility]/pharmacy #[id number], 1 application Topically 2 [...] 3 Refills, Maintenance, 01/19/20 10:28:00 EDT, Tablet, [facility]/pharmacy #[id number], 163, cm, 12/26/19 13:58:00 [...] 5 Refills, Maintenance, 12/30/19 18:21:00 EDT, Tablet, [facility]/pharmacy #[id number], 163, cm, 12/26/19 13:58:00 EDT, Height, 80, kg, 10/29/19 0:29:00 EDT, Dry Weight Start Date: 12/30/19 Status: Ordered Lantus 100 u/ml subcutaneous solution = 35 units, Subcutaneous Injection, Daily, # 10 mL, 11 Refills, Maintenance, 12/26/19 14:22:00 EDT,Solution, [facility]/pharmacy #[id number], increased dose 12/26/19, 163, cm, 12/26/19 13:58:00 EDT, Height, 80, kg, 10/29/19 0:29:00 EDT, Dry Weight Start Date: 12/26/19 Status: Ordered lidocaine 5% topical film 1 patch, Topically, Daily, For chronic radicular back pain, # 30 patch, 5 Refills, Maintenance, 06/27/19 14:37:00 EDT, [facility]/pharmacy #[id number], 1 patch Topically Daily,Instr:For [...] not to exceed 3000 mg/day. instructions in guamanian, # 120 tablet, 2 Refills, Maintenance, 11/01/19 15:24:00 EDT, Tablet, [facility]/pharmacy #[id number], 163, cm, 11/01/19 14:40:00 [...] 2Refills, Maintenance, 10/06/19 7:45:00 EDT, EC Capsule, [facility]/pharmacy #[id number], cancel Ranitidine, 160,cm, 09/28/19 [...] pain, for 28 days, on contract at [facility]., # 56 tablet, 0 Refills, Acute 02/23/20 17:14:00 EST, 01/26/20 17:14:00 EDT, [facility]/pharmacy #[id number], Partial fill upon patient request, 163, cm, 12/26/19 13:58:00 EDT,... Start Date: 01/26/20 Stop Date: 02/23/20 Status: Ordered Pen [place], 31 G x 5 mm BD Ultra [...] 05/30/19 18:52:00 EST, Route to Pharmacy Electronically, [facility]/pharmacy #[id number], 160, cm, 05/30/19 18:08:00 EST, Height, 88.9, kg, 05/23/19... Start Date: 05/30/19 Status: Ordered Senna 8.6 mg oral tablet 8.6 mg, 1, tablet, By Mouth, Daily at bedtime, # 100 tablet, Refills 2, Tot. Refills 2, Maintenance, 06/10/19 16:12:00 EST, [id number], cm, 06/01/19 14:08:00 EST, Height, 88.9, kg, 05/23/19 22:09:00 EST,... Start Date: 06/10/19 Status: Ordered Spiriva Respimat 60 ACT 2.5 mcg/inh inhalation aerosol 2 puffs, Inhalation, Daily, # 1 each, 5 Refills, Maintenance, 04/26/19 10:30:00 EST, [facility]/pharmacy #[id number], 158, cm, 04/26/19 9:58:00 EST, Height, 82, kg, 04/01/19 16:10:00 EST, Dry Weight Start Date: 04/26/19 Status: Ordered tiZANidine 4 mg oral tablet 4 mg, 1, tablet, By Mouth, Every 8 hours, # 84 tablet, Refills 1, Tot. Refills 1, Maintenance, 02/03/20 13:47:00 EDT, Route to Pharmacy Electronically, [facility]/pharmacy #[id number], 163, cm, 12/26/19 13:58:00 [...] [address] Abd 09/18/16 at [facility], pending MRI 3urge and stress Social History Social History Type Response Tobacco Use: Pt states she q uit smoking 1 week ago. Sex Female
--- OUTSIDE RECORDS SUMMARY | 2023-03-25 08:23 | XMS_ITS | Continuity of Care Document ---
[facility] [address] [place] [address]- Care Team Providers Care Program Coordinator Executive Education Name Role Phone Richardson DICE TABLE OPERATOR, Leonora Pérez Primary Care Physician [phone] Encounter [facility] Date(s): 03/11/19 - 03/15/[address] [address]- [facility] Discharge Disposition: A-D/C Home Attending Physician: Noreen Mart DO Admitting Physician: Theresa Pacheco MD Referring Physician: Shawn Escoto MD Allergies, Adverse Reactions, Alerts Substance Reaction [...] 15:03:51 EDT, Powder, Route to Pharmacy Electronically, [id number], [facility]/pharmacy #[id number] Start Date: 11/15/18 Status: Ordered albuterol [...] EDT, Tablet Start Date: 12/20/18 Status: Ordered benzonatate 200 mg oral capsule 1 capsule = 200 mg, By Mouth, 2 times a day, # 8 capsule, 0 Refills, Acute 03/16/19 10:00:00 EST, 03/15/19 9:56:28 EST, Capsule, 163, cm, 03/15/19 6:25:33 EST, Height, 84.8, kg, 03/11/19 20:38:02 EST, Dry Weight Start Date: 03/15/19 Stop Date: 03/16/19 Status: Ordered capsaicin 0.025% topical cream 1 application, Topically, 2 times a day, PRN Pain , Mild, # 60 Gm, 5 Refills, Maintenance, 10/29/1813:47:09 EDT, Cream, 1 application Topically 2 times a day,PRN:Pain , Mild Start Date: 10/29/17 Status: Ordered cetirizine 10 mg oral tablet 1 tablet = 10 mg, By Mouth, Daily, # 30 tablet, 5 Refills, Maintenance, 05/07/18 15:13:13 EST, Tablet Start Date: 05/07/18 Status: Ordered clonazePAM 0.5 mg oral tablet 0 Refills, Maintenance, 04/22/18 11:41:50 EST Start Date: 04/22/18 Status: Ordered Disposable absorbant bed pads Disposable absorbant bed pads, See Instructions, # 60 each, Refills 11, Tot. Refills 11, Maintenance, Dx: stress urinary incontinence Use two per day Duration 1 year, 02/18/19 13:24:27 EST, Compound Start Date: 02/18/19 Status: Ordered doxycycline hyclate 100 mg oral capsule 1 capsule = 100 mg, By Mouth, Every 12 hours, # 6 capsule, 0 Refills, Acute 03/16/19 10:00:00 EST, 03/15/19 9:57:03 EST, Capsule, 163, cm, 03/15/19 6:25:33 EST, Height, 84.8, kg, 03/11/19 20:38:02 EST, Dry Weight Start Date: 03/15/19 Stop Date: 03/16/19 Status: Ordered duloxetine 60 mg oral enteric coated capsule TAKE 1 CAPSULE BY MOUTH EVERY DAY Start Date: 10/29/17 Status: Ordered fluticasone 50 mcg/inh nasal spray See Instructions, # 16 mL, Refills 5 Tot. Refills 5, USE 1 SPRAY IN BOTH NOSTRILS DAILY, [facility]/pharmacy #[id number] Start Date: 12/01/18 Status: Ordered glipiZIDE 10 mg oral tablet, extended release 2 tablet = 20 mg, By Mouth, Daily, # 60 tablet, 11 Refills, Maintenance, 12/20/18 18:11:47 EDT, note dose increase Start Date: 12/20/18 Status: Ordered lidocaine 5% topical film See Instructions, # 30 patch, Refills 5 Tot. Refills 5, APPLY ONE PATCH TOPICALLY DAILY. LEAVE ON FOR 12 HOURS THEN LEAVE OFF FOR 12 HOURS, [facility]/pharmacy #[id number] Start Date: 12/20/18 Status: Ordered lisinopril 5 mg oral tablet 2.5 mg, 0.5, tablet, By Mouth, Daily, # 15 tablet, Refills 0, Tot. Refills 0, Maintenance, 03/15/1910:26:38 EST, Route to Pharmacy Electronically, [id number], [facility]/pharmacy #[id number], 163, cm, 03/15/19 6:25:33 EST, Height, 84.8,... Start Date: 03/15/19 Status: Ordered lithium 450 mg oral tablet, extended release = 600 mg, By Mouth, Daily at bedtime, 0 Refills, Maintenance, 11/25/18 10:11:53 EDT Start Date: 11/25/18 Status: Ordered magnesium citrate 8.85% oral liquid 150 mL = 8.725 Gm, By Mouth, Once, for severe constipation, # 300 mL, 5 Refills, Soft Stop, 07/05/18 13:30:07 EDT, Liquid, 150 mL By Mouth Once,Instr:for severe constipation Start Date: 07/05/18 Status: Ordered Mapap 325 mg oral tablet 2 tablet = 650 mg, By Mouth, Every 4 hours, PRN for pain, not to exceed 3000 mg/day. instructions in japanese, # 120 tablet, 2 Refills, Maintenance, 11/04/18 13:51:30 EDT, Tablet Start Date: 11/04/18 Status: Ordered mirtazapine 15 mg oral tablet 1 tablet = 15 mg, By Mouth, Daily at bedtime, # 30 tablet, 0 Refills, Maintenance, 01/19/18 9:10:18EDT, Tablet Start Date: 01/19/18 Status: Ordered Nebulizer/Compressor See Instructions, # 1 each, Maintenance, Dx: uncontrolled Asthma, severe Use Q4hr PRN Duration: 1 year, 02/24/19 14:36:56 EST, Compound Start Date: 02/24/19 Status: Ordered nicotine 7 mg/24 hr transdermal film, extended release 1 patch, Topically, Daily, # 30 patch, 0 Refills, Acute 03/16/19 10:00:00 EST, 03/15/19 9:57:31 EST, Patch, 1 patch Topically Daily, 163, cm, 03/15/19 6:25:33 EST, Height, 84.8, kg, 03/11/19 20:38:02EST, Dry Weight Start Date: 03/15/19 Stop Date: 03/16/19 Status: Ordered oxyCODONE 10 mg oral tablet 1 tablet = 10 mg, By Mouth, 2 times a day, for 28 days, on contract at [facility]., # 56 tablet, 0 Refills, Acute 03/29/19 15:22:59 EST, 03/01/19 15:22:59 EST, Partial fill upon patient request Start Date: 03/01/19 Stop Date: 03/29/19 Status: Ordered predniSONE 20 mg oral tablet 2 tablet = 40 mg, By Mouth, Daily, for 3 days, # 6 tablet, 0 Refills, Acute 03/18/19 9:57:20 EST, 03/15/19 9:57:20 EST, Tablet, 163, cm, 03/15/19 6:25:33 EST, Height, 84.8, kg, 03/11/19 20:38:02 EST,Dry Weight Start Date: 03/15/19 Stop Date: 03/18/19 Status: Ordered Pulmicort Flexhaler 180 mcg 1 puffs, Inhalation, 2 times a day, # 1 each, 5 Refills, Maintenance, 02/28/19 17:47:06 EST, Powder, 1 puffs Inhalation 2 times a day Start Date: 02/28/19 Status: Ordered Qvar Redihaler 80 mcg/inh inhalation aerosol Inhalation, 2 times a day, 0 Refills, Maintenance, 11/25/18 10:09:36 EDT Start Date: 11/25/18 Status: Ordered raNITIdine 300 mg oral tablet See Instructions, # 30 tablet, Refills 2 Tot. Refills 2, TAKE 1 TABLET BY MOUTH EVERYDAY AT BEDTIME, [facility]/pharmacy #[id number] Start Date: 01/27/19 Status: Ordered Senexon-S 2 tablet, By Mouth, Daily at bedtime, 0 Refills, Maintenance, 11/25/18 10:10:49 EDT Start Date: 11/25/18 Status: Ordered tiZANidine 4 mg oral tablet 4 mg, 1, tablet, By Mouth, Every 8 hours, # 90 tablet, Refills 2, Tot. Refills 2, Soft Stop, 03/10/19 12:35:20 EST, Route to Pharmacy Electronically, [id number], [facility]/pharmacy #[id number], 163, cm, 02/28/19 16:57:41 EST, Height, 81,... Start Date: 03/10/19 Status: Ordered Tums 500 mg oral tablet, chewable 500 mg, 1, tablet, Chew, 2 times a day, PRN, # 45 tablet, Refills 0, Tot. Refills 0, Maintenance, as needed for dyspepsia, 10/18/18 15:31:54 EDT, Route to Pharmacy Electronically, [id number], [facility]/pharmacy #[id number] Start Date: 10/18/18 Status: Ordered Urinary incontinence pantiliners Urinary incontinence pantiliners, See Instructions, # 90 each, Refills 11, Tot. Refills 11, Maintenance, Dx: stress urinary incontinence Use three per day. Duration 1 year, 02/18/19 13:24:43 EST, Compound Start Date: 02/18/19 Status: Ordered Vitamin D3 5000 intl units [...] on CPAP(Confirmed) Active Panic attacks(Confirmed) Active *BHN/BHCP/SARAHarmony MacdonaldCqvjuer-[phone]/[facility], active care coordination(Confirmed) Active Acute meniscal tear of right knee(Confirmed) 7 06/2015 Active Tobacco dependence(Confirmed) Active DM2 (diabetes mellitus, type 2)(Confirmed) 04/03/17 Active Incontinence of urine(Confirmed) 8 Active 1surgically repaired November 2015, Dr. Sg MNEDEZ 2DJD Lumbar Spine per MRI 3L3-L4 disc herniation per client report 4seen on MRI 10/2016, rec repeat imaging in October 2017 5done in [place] 6[place] [facility] [place] 7surgically repaired July 2015 Dr. Sg MENDEZ 8urge and stress Vital Signs Most recent to oldest [Reference Range]: 1 2 3 Height 163 cm (03/15/19 6:25 AM) 163 cm (03/14/19 8:44 PM) 163 cm (03/14/19 1:25 PM) Weight 84.8 kg (03/11/19 8:00 PM) 85.8 kg (03/11/19 5:25 PM) 85.8 kg (03/11/19 2:26 PM) Oxygen Saturation [94-100 %] 97 % (03/15/19 6:25 AM) 95 % (03/14/19 8:44 PM) 94 % (03/14/19 1:25 PM) Pulse Rate [55-90 bpm] 72 bpm (03/15/19 6:25 AM) 90 bpm (03/14/19 8:44 PM) 84 bpm (03/14/19 1:25 PM) Body Mass Index [18.5-24.99] 31.92 *>HHI* (03/11/19 8:00 PM) 32.29 *>HHI* (03/11/19 5:25 PM) Blood Pressure [90-138/55-84 mm Hg] 140/94mm Hg *H* (03/15/19 8:12 AM) 135/88mm Hg (03/15/19 6:25 AM) 129/88mm Hg (03/14/19 8:44 PM) Respiratory Rate [16-30 br/min] 18 br/min (03/15/19 6:25 AM) 18 br/min (03/14/19 8:44 PM) 18 br/min (03/14/19 7:30 PM) Temperature [96.8-100.4 DegF] 96.3 DegF *L* (03/15/19 6:25 AM) 96.3 DegF *L* (03/14/19 8:44 PM) 97 DegF (03/14/19 1:25 PM) Liters per Minute 0 L/min (03/12/19 3:41 PM) Mode of Delivery (Oxygen) Room air (03/15/19 6:25 AM) Room air (03/14/19 8:44 PM) Room air (03/14/19 1:25 PM) Blood pressure sites Arm, right (03/15/19 6:25 AM) Arm, left (03/14/19 8:44 PM) Arm, left (03/14/19 5:32 AM) Temperature Route Temporal (03/15/19 6:25 AM) Temporal (03/14/19 8:44 PM) Temporal (03/14/19 1:25 PM) Dry Weight 84.8 kg (03/11/19 8:00 PM) 85.8 kg (03/11/19 5:25 PM) 85.8 kg (03/11/19 2:26 PM) Weight Obtained Via Standing scale (03/11/19 8:00 PM) Standing scale (03/11/19 2:26 PM) Dry Weight Obtained Via Standing scale (03/11/19 8:00 PM) Sensory deficits None (03/11/19 8:09 PM) Mobility assistance Independent (03/11/19 8:09 PM) Social History Social History Type Response Tobacco Use: Pt states she q uit smoking 1 week ago. Sex
--- OUTSIDE RECORDS SUMMARY | 2023-03-25 08:23 | XMS_ITS | Continuity of Care Document ---
Author Name Unknown Organization [facility] Address [address] [place] [address]- Care Team Providers Care Rejoiner Name Role Phone Richardson QUIROZ, Leonora Pérez Primary Care Physician [phone] Encounter [facility] Date(s): 02/18/21 - 03/20/21 [facility] [address], [place] [address] Allergies, Adverse Reactions, Alerts [...] 01/16/21 19:30:00 EDT, Route to Pharmacy Electronically, [facility]/pharmacy #[id number], Partial fill upon patient request if the prescription is for a schedule II o... Start Date: 01/16/21 Status: Ordered Advair Diskus 500 mcg-50 mcg inhalation powder 1, puffs, Inhalation, 2 times a day, [id number], # 1 each, Refills 11, Tot. Refills 11, Maintenance, 04/05/20 14:12:00 EST, Powder, Route to Pharmacy Electronically, [id number], [facility]/pharmacy #[id number], 162.56, cm, 03/27/20 11:36:00... Start Date: 04/05/20 Status: Ordered albuterol 0.083% inhalation solution 3 mL = 2.5 mg, Inhalation, Every 4 hours, PRN for wheezing, # 100 each, 2 Refills, Maintenance, 08/15/20 10:22:00 EDT, Solution, [facility]/pharmacy #[id number], 163, cm, 08/09/20 8:45:00 EDT, Height, 84.8, kg, 06/25/20 20:28:00 EDT, Dry Weight Start Date: 08/15/20 Status: Ordered amitriptyline 50 mg oral tablet = 75 mg, By Mouth, Daily at bedtime, # 90 tablet, 1 Refills, [id number], 155, cm, 02/04/21 11:46:00 EDT, Height, 90.9, [...] 1 Refills, Maintenance, 12/05/20 12:42:00 EDT, Cream, [facility]/pharmacy #[id number], 1 application Topically 2 times [...] DAY, # 16 mL, 1 Refills, Maintenance, [id number], 30, USE 1 SPRAY IN BOTH NOSTRILS [...] 2 Refills, Maintenance, 03/01/21 12:42:00 EST, Solution, [facility]/pharmacy #[id number], increased dose 9/21/20, 155, cm, 02/18/21 14:54:00 EST, Height, 90.9, kg, 02/02/21 5:59:00 EDT, Dry Weight Start Date: 03/01/21 Status: Ordered lidocaine 5% topical film 1 patch, Topically, Daily, For chronic radicular back pain, # 30 patch, 5 Refills, Maintenance, 10/11/20 8:15:00 EDT, [facility]/pharmacy #[id number], 1 patch Topically Daily,Instr:For chronic [...] 0 Refills, Maintenance, 08/15/20 15:59:00 EDT, Capsule, [facility]/pharmacy #[id number], Partial fill upon patient request if the prescription is for a schedule II opioid drug., 163, cm, 08/15/20 14:23:00 EDT, Heig... Start Date: 08/15/20 Status: Ordered mirabegron 25 mg oral tablet, extended release 1 tablet = 25 mg, By Mouth, Daily, do not crush or chew, # 30 tablet, 11 Refills, Maintenance, 12/31/20 15:58:00 EDT, ER Tablet, [facility]/pharmacy #[id number], Partial [...] 1 Refills, Maintenance, 01/31/21 14:16:00 EDT, [facility] upon patient request if the prescription is for a schedule II opioid dr... Start Date: 01/31/21 Status: Ordered omeprazole 40 mg oral enteric coated capsule 1 capsule = 40 mg, By Mouth, Daily, PRN Dyspepsia, # 90 capsule, 0 Refills, Maintenance, 01/11/21 13:46:00 EDT, EC Capsule, [facility]/pharmacy #[id number], 165, cm, 12/31/20 14:56:00 EDT, Height, 87.6, kg, 12/31/20 14:56:00 EDT, Dry Weight Start Date: 01/11/21 Status: Ordered prazosin 2 mg oral capsule [...] 10/30/20 11:37:00 EDT, Route to Pharmacy Electronically, [facility]/pharmacy #[id number], 163, cm, 08/15/20 14:23:00 EDT, Height, 84.8, kg, 06/25/20 20:28:00 EDT... Start Date: 10/30/20 Status: Ordered Spiriva Respimat 60 ACT 2.5 mcg/inh inhalation aerosol 2 puffs, Inhalation, Daily, # 1 each, 11 Refills, Maintenance, 04/05/20 14:17:00 EST, [facility]/pharmacy #[id number], Partial fill [...] 12/05/20 12:45:00 EDT, Route to Pharmacy Electronically, [facility]/pharmacy #[id number], 165, cm, 11/22/20 8:40:00 EDT, Height, 84.8, kg, 06/25/20 20:28:00... Start Date: 12/05/20 Stop Date: 01/30/21 Status: Ordered Trulicity Pen 0.75 mg/0.5 mL subcutaneous solution 0.5 mL = 0.75 mg, Subcutaneous Injection, Every week, rotate injection sites, # 2 mL, 5 Refills, Maintenance, 10/31/20 15:27:00 EDT, Solution, [facility]/pharmacy #[id number], Partial fill [...] on CPAP(Confirmed) Active Panic attacks(Confirmed) Active BHN/BHCP Senior Construction Estimator Jb Fabian [phone](Confirmed) Active Syncope and collapse(Confirmed) Active Tobacco dependence(Confirmed) Active DM2 (diabetes mellitus, type 2)(Confirmed) 04/03/17 Active Incontinence of urine(Confirmed) 3 Active 1seen on MRI 10/2016, rec repeat imaging in October [address] Abd 09/18/16 at [facility] [place], pending MRI 3urge and stress Social History Social History Type Response Smoking Status Current every day kaitlin valle; Type: Cigarettes; Tobacco use times per day: 1/2 ppd; entered on: 12/24/17 Sex
--- OUTSIDE RECORDS SUMMARY | 2023-03-25 08:23 | XMS_ITS | Continuity of Care Document ---
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 Start Date: 04/27/19 Status: Ordered albuterol 0.083% inhalation solution 3 mL = 2.5 mg, Inhalation, Every 4 hours, PRN for wheezing, # 100 each, 5 Refills, Maintenance, 06/27/19 14:32:00 EDT, Solution, [facility]/pharmacy #[id number], 160, cm, 06/01/19 14:08:00 EST, Height, [...] 08/01/19 15:23:00 EDT, 07/22/19 15:23:00 EDT, Tablet, [facility]/pharmacy #[id number], 1 tablet By Mouth 2 times a day,x10 days, 160, cm, 07/22/19 15:08:00 EDT, Height, 86.8, kg, ... Start Date: 07/22/19 Stop Date: 08/01/19 Status: Ordered cetirizine 10 mg oral tablet 1 tablet = 10 mg, By Mouth, Daily, # 30 tablet, 5 Refills, Maintenance, 04/19/19 15:40:00 EST, Tablet, [facility]/pharmacy #[id number], 158, cm, 04/04/19 15:21:00 EST, Height, 82, kg, 04/01/19 16:10:00 EST, Dry Weight Start Date: 04/19/19 Status: Ordered clonazePAM 0.5 mg oral tablet TAKE 1 TABLET BY MOUTH TWICE A DAY NEEDED Start Date: 06/02/19 Status: Ordered clotrimazole 1% topical cream 1 application, Topically, 2 times a day, # 30 Gm, 0 Refills, Maintenance, 05/30/19 19:02:00 EST, Cream, [facility]/pharmacy #[id number], 1 application Topically 2 times a [...] 5 Refills, Maintenance, 04/28/19 16:05:00 EST, Tablet, [facility]/pharmacy #[id number], 158, cm, 04/28/19 14:51:00 EST, Height, 82, kg, 04/01/19 16:10:00 EST, Dry Weight Start Date: 04/28/19 Status: Ordered lidocaine 5% topical film 1 patch, Topically, Daily, For chronic radicular back pain, # 30 patch, 5 Refills, Maintenance, 06/27/19 14:37:00 EDT, [facility]/pharmacy #[id number], 1 patch Topically Daily,Instr:For chronic radicular back pain, 160, cm, 06/01/19 14:08:00 EST, Height, 88.9, kg,... Start Date: 06/27/19 Status: Ordered lisinopril 10 mg oral tablet 10 mg, 1, tablet, By Mouth, Daily, # 90 tablet, Refills 3, Tot. Refills 3, Maintenance, 05/08/19 20:27:00 EST, Route to Pharmacy Electronically, [facility]/pharmacy #[id number], to replace 2.5mg dose, 158, cm, [...] not to exceed 3000 mg/day. instructions in maltese, # 120 tablet, 2 Refills, Maintenance, 07/25/19 8:41:00 EDT, Tablet, [facility]/pharmacy #[id number], 160, cm, 07/22/19 15:08:00 EDT, Height, [...] pain, for 28 days, on contract at [facility]., # 56 tablet, 0 Refills, Acute 08/04/19 13:49:00 EDT, 07/07/19 13:49:00 EDT, [facility]/pharmacy #[id number], Partial fill upon patient request, 160, cm, 06/01/19 14:08:00 EST,... Start Date: 07/07/19 Stop Date: 08/04/19 Status: Ordered prazosin 1 mg oral capsule 1 mg, 1, capsule, By Mouth, Daily at bedtime, for nightmares, # 30 capsule, Refills 0, Tot. Refills0, Maintenance, 05/30/19 18:52:00 EST, Route to Pharmacy Electronically, [facility]/pharmacy #[id number], 160, cm, 05/30/19 18:08:00 EST, Height, 88.9, kg, 05/23/19... Start Date: 05/30/19 Status: Ordered predniSONE 20 mg oral tablet 2 tablet = 40 mg, By Mouth, Daily, for 5 days, # 10 tablet, 0 Refills, Acute 08/02/19 11:55:00 EDT,07/28/19 11:55:00 EDT, [facility]/pharmacy #[id number], 160, cm, 07/22/19 15:08:00 EDT, Height, 86.8, kg, 07/22/19 15:13:00 EDT, Dry Weight Start Date: 07/28/19 Stop Date: 08/02/19 Status: Ordered raNITIdine 300 mg oral tablet See Instructions, # 30 tablet, Refills 2 Tot. Refills 2, TAKE 1 TABLET BY MOUTH EVERYDAY AT BEDTIME, [facility]/pharmacy #[id number] Start Date: 01/27/19 Status: Ordered Senexon-S 2 tablet, By Mouth, Daily at bedtime, 0 Refills, Maintenance, 11/25/18 10:10:49 EDT Start Date: 11/25/18 Status: Ordered senna 187 mg oral tablet 1 tablet = 8.6 mg, By Mouth, Daily at bedtime, PRN as needed for constipation, # 100 tablet, 5 Refills, Maintenance, 05/04/19 9:35:00 EST, [facility]/pharmacy #[id number], 158, cm, 04/28/19 14:51:00 EST, Height, 82, kg, 04/01/19 16:10:00 EST, Dry Weight Start Date: 05/04/19 Status: Ordered Senna 8.6 mg oral tablet 8.6 mg, 1, tablet, By Mouth, Daily at bedtime, # 100 tablet, Refills 2, Tot. Refills 2, Maintenance, 06/10/19 16:12:00 EST, Route to Pharmacy Electronically, [facility]/pharmacy #[id number], 160, cm, 06/01/19 14:08:00 EST, Height, 88.9, kg, 05/23/19 22:09:00 EST,... Start Date: 06/10/19 Status: Ordered Spiriva Respimat 60 ACT 2.5 mcg/inh inhalation aerosol 2 puffs, Inhalation, Daily, # 1 each, 5 Refills, Maintenance, 04/26/19 10:30:00 EST, [facility]/pharmacy #[id number], 158, cm, 04/26/19 9:58:00 EST, Height, 82, kg, 04/01/19 16:10:00 EST, Dry Weight Start Date: 04/26/19 Status: Ordered tiZANidine 2 mg oral tablet 2 mg, 1, tablet, By Mouth, 2 times a day, PRN, # 30 tablet, Refills 2, Tot. Refills 2, Maintenance,as needed for muscle spasm, 07/25/19 8:41:00 EDT, Route to Pharmacy Electronically, [facility]/pharmacy #[id number], 160, cm, 07/22/19 15:08:00 EDT, Height, [...] on CPAP(Confirmed) Active Panic attacks(Confirmed) Active *BHN/BHCP/Efrem Macdonald-[phone]/[facility], active care coordination(Confirmed) [...] [address] Abd 09/18/16 at [facility], pending MRI 6surgically repaired July 2015 Dr. Sg MENDEZ 7urge and stress Vital Signs Most recent to oldest [Reference Range]: 1 Height 160 cm (07/22/19 3:08 PM) Weight 86.8 kg (07/22/19 3:08 PM) Oxygen Saturation [94-100 %] 96 % (07/22/19 3:08 PM) Pulse Rate [55-90 bpm] 93 bpm *H* (07/22/19 3:08 PM) Body Mass Index [18.5-24.99] 33.91 *>HHI* (07/22/19 3:08 PM) Blood Pressure [90-138/55-84 mm Hg] 168/ 108mm Hg *H* (07/22/19 3:08 PM) Respiratory Rate [16-30 br/min] 18 br/mi n (07/22/19 3:08 PM) Temperature [96.8-100.4 DegF] 99.3 DegF (07/22/19 3:08 PM) Mode of Delivery (Oxygen) Room air (07/22/19 3:08 PM) Blood pressure sites Arm, right (07/22/19 3:08 PM) Temperature Route Oral (07/22/19 3:08 PM) Dry Weight 86.8 kg (07/22/19 3:08 PM) Weight Obtained Via Standing scale (07/22/19 3:08 PM) Dry Weight Obtained Via Standing scale (07/22/19 3:08 PM) Social History Social History Type Response Tobacco Use: Pt states she q uit smoking 1 week ago. Sex Female
--- OUTSIDE RECORDS SUMMARY | 2023-03-25 08:23 | XMS_ITS | Continuity of Care Document ---
Author Name Unknown Organization [facility] Address [address] [place] [address]- Care Team Providers Care Recordak Operator Name Role Phone Richardson QUIROZ, Leonora Pérez Primary Care Physician [facility] Date[facility]): [facility]19 - 12/04/19 [facility] [address] [place] [address]- [facility] Allergies, Adverse Reactions, Alerts Substance Reaction [...] 12:48:00 EST, Powder, Route to Pharmacy Electronically, [id number], [id number], 158, cm, 04/26/19 9:58:00 EST, [...] tablet, 5 Refills, Maintenance, 10/06/19 7:45:00EDT, Tablet, [facility]/pharmacy #[id number], 160, cm, 09/28/19 8:58:00 EDT, Height, 86.8, kg, 07/22/19 15:13:00EDT, Dry Weight Start Date: 10/06/19 Status: Ordered atorvastatin 20 mg oral tablet 1 tablet = 20 mg, By Mouth, Daily, Maintenance, 05/24/19 9:12:00 EST, Tablet Start Date: 05/24/19 Status: Ordered capsaicin 0.025% topical cream 1 application, Topically, 3 times a day, # 45 Gm, 3 Refills, Maintenance, 11/01/19 15:25:00 EDT, Cream, [facility]/pharmacy #[id number], 1 application Topically 3 times a day, 163, cm, 11/01/19 14:40:00 EDT, Height, 80, kg, 10/29/19 0:29:00 EDT, Dry Weight Start Date: 11/01/19 Status: Ordered cetirizine 10 mg oral tablet 1 tablet = 10 mg, By Mouth, Daily, # 30 tablet, 5 Refills, Maintenance, 04/19/19 15:40:00 EST, Tablet, [facility]/pharmacy #[id number], 158, cm, 04/04/19 15:21:00 EST, [...] 3 Refills, Maintenance, 09/02/19 10:23:00 EDT, Tablet, [facility]/pharmacy #[id number], PLEASE CANCEL LISINOPRIL, 160, cm, [...] 5 Refills, Maintenance, 04/28/19 16:05:00 EST, Tablet, [facility]/pharmacy #[id number], 158, cm, 04/28/19 14:51:00 EST, [...] patch, 5 Refills, Maintenance, 06/27/19 14:37:00 EDT, [facility]/pharmacy #[id number], 1 patch Topically Daily,Instr:For chronic [...] danish, # 120 tablet, 2 Refills, Maintenance, 11/01/19 15:24:00 EDT, Tablet, [facility]/pharmacy #[id number], 163, cm, 11/01/19 14:40:00 EDT, Height, 80, kg, 07/... Start Date: 11/01/19 Status: Ordered metFORMIN 1000 mg oral tablet 1 tablet = 1,000 mg, By Mouth, 2 times a day, # 60 tablet, 2 Refills, Maintenance, 11/09/19 16:12:00 EDT, Tablet, [facility]/pharmacy #[id number], 163, cm, 11/01/19 14:40:00 EDT, [...] 2Refills, Maintenance, 10/06/19 7:45:00 EDT, EC Capsule, [facility]/pharmacy #[id number], cancel Ranitidine, 160,cm, 09/28/19 8:58:00 EDT, Height, 86.8, kg, ... Start Date: 10/06/19 Status: Ordered oxyCODONE 10 mg oral tablet 1 tablet = 10 mg, By Mouth, 2 times a day, PRN pain, for 28 days, on contract at [facility]., # 56 tablet, 0 Refills, Acute 12/05/19 9:20:00 EDT, 11/07/19 9:20:00 EDT, [facility]/pharmacy #[id number], Partial fill uponpatient request, 163, cm, 11/01/19 14:40:00 EDT, He... Start Date: 11/07/19 Stop Date: 12/05/19 Status: Ordered Pen [place], 31 G x 5 mm BD Ultra [...] 05/30/19 18:52:00 EST, Route to Pharmacy Electronically, [facility]/pharmacy #[id number], 160, cm, 05/30/19 18:08:00 EST, [...] 06/10/19 16:12:00 EST, Route to Pharmacy Electronically, [facility]/pharmacy #[id number], 160, cm, 06/01/19 14:08:00 EST, Height, 88.9, kg, 05/23/19 22:09:00 EST,... Start Date: 06/10/19 Status: Ordered Spiriva Respimat 60 ACT 2.5 mcg/inh inhalation aerosol 2 puffs, Inhalation, Daily, # 1 each, 5 Refills, Maintenance, 04/26/19 10:30:00 EST, [facility]/pharmacy #[id number], 158, cm, 04/26/19 9:58:00 EST, Height, 82, kg, 04/01/19 16:10:00 EST, Dry Weight Start Date: 04/26/19 Status: Ordered tiZANidine 4 mg oral tablet 4 mg, 1, tablet, By Mouth, Every 8 hours, # 84 tablet, Refills 1, Tot. Refills 1, Maintenance, 11/24/19 8:16:00 EDT, Route to Pharmacy Electronically, [facility]/pharmacy #[id number], 163, cm, 11/01/19 14:40:00 EDT, [...] [address] Abd 09/18/16 at [facility] [place], pending MRI 6surgically repaired July 2015 Dr. Sg MENDEZ 7urge and stress Social History Social History Type Response Tobacco Use: Pt states she q uit smoking 1 week ago. Sex Female
--- OUTSIDE RECORDS SUMMARY | 2023-03-25 08:23 | XMS_ITS | Continuity of Care Document ---
Author Name Unknown Organization [facility] Address [address] [place] [address]- Care Team Providers Care Brick Paver Name Role Phone Richardson QUIROZ, Leonora Pérez Primary Care Physician [facility] Date[facility]s): 09/05/20 - 10/05/20 [facility] [address] [place] [address]- Allergies, Adverse Reactions, Alerts Substance Reaction Severity [...] 14:12:00 EST, Powder, Route to Pharmacy Electronically, [id number], [facility]/pharmacy #[id number], 162.56, cm, 03/27/20 11:36:00... Start Date: 04/05/20 Status: Ordered albuterol 0.083% inhalation solution 3 mL = 2.5 mg, Inhalation, Every 4 hours, PRN for wheezing, # 100 each, 2 Refills, Maintenance, 08/15/20 10:22:00 EDT, Solution, [facility]/pharmacy #[id number], 163, cm, 08/09/20 8:45:00 EDT, [...] Maintenance, 04/05/20 14:11:00 EST, Tablet, [facility]/pharmacy #[id number], Partial fill upon patient request if the prescription is for a schedule II opioid drug., 162.56, cm, 03/27/20 11:36:00 EST, Heig... Start Date: 04/05/20 Status: Ordered capsaicin 0.025% topical cream 1 application, Topically, 3 times a day, # 45 Gm, 3 Refills, Maintenance, 11/01/19 15:25:00 EDT, Cream, [facility]/pharmacy #[id number], 1 application Topically 3 [...] 1 Refills, Maintenance, 07/30/20 19:49:00 EDT, Cream, [facility]/pharmacy #[id number], 1 application Topically 2 [...] Refills, Maintenance, 03/02/20 11:18:00 EST, Capsule, [facility]/pharmacy #[id number], Partial fill upon patient request. NOT INCREASED DOSE, 163, cm, 12/25/2012:58:00 EDT, Height, 80, kg, 10/29/19 0:29:00 EDT,... Start Date: 03/02/20 Status: Ordered fluticasone 50 mcg/inh nasal spray See Instructions, USE 1 SPRAY IN BOTH NOSTRILS 2 TIMES A DAY, # 16 mL, 1 Refills, Maintenance, [id number], 30, USE 1 SPRAY IN BOTH NOSTRILS 2 TIMES A DAY, 163, cm, 08/15/20 14:23:00 EDT, Height,84.8, kg, 06/25/20 20:28:00 EDT, Dry Weight Start Date: 09/07/20 Status: Ordered hydrochlorothiazide 12.5 mg oral tablet 1 tablet = 12.5 mg, By Mouth, Daily, # 90 tablet, 3 Refills, Maintenance, 01/19/20 10:28:00 EDT, Tablet, [facility]/pharmacy #[id number], 163, cm, 12/26/19 13:58:00 EDT, Height, 80, kg, 10/29/19 0:29:00 EDT, Dry Weight Start Date: 01/19/20 Status: Ordered Januvia 100 mg oral tablet 1 tablet = 100 mg, By Mouth, Daily, # 30 tablet, 2 Refills, Maintenance, 08/27/20 11:00:00 EDT, Tablet, [facility]/pharmacy #[id number], 163, cm, 08/15/20 14:23:00 EDT, Height, 84.8, kg, 06/25/20 20:28:00 EDT, Dry Weight Start Date: 08/27/20 Status: Ordered Lantus 100 u/ml subcutaneous solution = 40 units, Subcutaneous Injection, Daily, # 12 mL, 11 Refills, Maintenance, 05/07/20 13:24:00 EST,Solution, [facility]/pharmacy #[id number], increased dose 12/26/19, 162, [...] Refills, Maintenance, 08/15/20 15:59:00 EDT, Capsule, [facility]/pharmacy #[id number], Partial fill upon patient request if the prescription is for a schedule II opioid drug., 163, cm, 08/15/20 14:23:00 EDT, Heig... Start Date: 08/15/20 Status: Ordered Mapap 325 mg oral tablet 2 tablet = 650 mg, By Mouth, Every 4 hours, PRN for pain, not to exceed 3000 mg/day. instructions in [place] of [place], # 120 tablet, 2 Refills, Maintenance, 11/01/19 15:24:00 EDT, Tablet, [facility]/pharmacy #[id number], 163, cm, 11/01/19 14:40:00 [...] Maintenance, 04/05/20 14:08:00 EST, Tablet, [facility]/pharmacy #[id number], Partial fill upon patient request if the prescription is for a schedule II opioid drug., 162.56, cm, ... Start Date: 04/05/20 Status: Ordered omeprazole 40 mg oral enteric coated capsule 1 capsule = 40 mg, By Mouth, Daily, # 90 capsule, 0 Refills, Maintenance, 08/13/20 10:34:00 EDT, ECCapsule, [facility]/pharmacy #[id number], 163, cm, 08/09/20 8:45:00 EDT, [...] day, for 28 days, on contract at [facility], # 56 tablet, 0 Refills, Acute 10/25/20 15:14:00 EDT, 09/27/20 15:14:00 EDT, [facility]/pharmacy #[id number], Partial fill upon patient [...] 12:46:00 EST, Route to Pharmacy Electronically, [facility]/pharmacy #[id number], 162, cm, 05/24/20 9:01:00 EST, Height, 80, kg, 04/18/20 9:48:00 EST, Dry... Start Date: 06/04/20 Status: Ordered Soma 350 mg oral tablet 350 mg, 1, tablet, By Mouth, 3 times a day, # 9 tablet, Refills 0, Tot. Refills 0, Maintenance, 05/04/20 15:46:00 EST, Route to Pharmacy Electronically, [facility]/pharmacy #[id number], Partial fill upon patient request if the prescription is for a schedule II opi... Start Date: 05/04/20 Status: Ordered Spiriva Respimat 60 ACT 2.5 mcg/inh inhalation aerosol 2 puffs, Inhalation, Daily, # 1 each, 11 Refills, Maintenance, 04/05/20 14:17:00 EST, [facility]/pharmacy #[id number], Partial fill upon patient [...] 08/16/20 11:59:00 EDT, Route to Pharmacy Electronically, [facility]/pharmacy #[id number], 163, cm, 08/15/20 14:23:00 EDT, [...] [address] Abd 09/18/16 at [facility], pending MRI 3urge and stress Social History Social History Type Response Tobacco Use: Pt states she q uit smoking 1 week ago. Sex
--- OUTSIDE RECORDS SUMMARY | 2023-03-25 08:23 | XMS_ITS | Continuity of Care Document ---
Author Name Unknown Organization [facility] Address [address] [place] [address]- Care Team Providers Care Pharmacologist Name Role Phone Richardson QUIROZ, Leonora Pérez Primary Care Physician [phone] Encounter [facility] Date(s): 04/02/20 - 05/02/20 [facility] [address] [place], [place] [address] Attending Physician: Not on Staff, Attending MD [...] 14:12:00 EST, Powder, Route to Pharmacy Electronically, [id number], [facility]/pharmacy #[id number], [...] 1 Refills, Maintenance, 02/03/20 13:47:00 EDT, Cream, [facility] [...] not to exceed 3000 mg/day. instructions in nepali, # 120 tablet, 2 Refills, Maintenance, 11/01/19 15:24:00 EDT, Tablet, [facility]/pharmacy #[id number], 163, cm, 11/01/19 14:40:00 EDT, Height, [...] 2 Refills, Maintenance, 04/05/20 14:08:00 EST, Tablet, [facility] [...] 2Refills, Maintenance, 10/06/19 7:45:00 EDT, EC Capsule, [facility]/pharmacy #[id number], cancel Ranitidine, 160,cm, 09/28/19 8:58:00 EDT, [...] Acute 05/03/20 14:10:00 EST, 04/05/20 14:10:00 EST, [facility]/pharmacy [...] 06/10/19 16:12:00 EST, Route to Pharmacy Electronically, [facility]/pharmacy #[id number], 160, cm, 06/01/19 14:08:00 EST, Height, 88.9, kg, 05/23/19 22:09:00 EST,... Start Date: 06/10/19 Status: Ordered Spiriva Respimat 60 ACT 2.5 mcg/inh inhalation aerosol 2 puffs, Inhalation, Daily, # 1 each, 11 Refills, Maintenance, 04/05/20 14:17:00 EST, [facility]/pharmacy [...] 02/03/20 13:47:00 EDT, [facility] Electronically, [facility] [...]
--- OUTSIDE RECORDS SUMMARY | 2023-03-25 08:23 | XMS_ITS | Continuity of Care Document ---
Author Name Unknown Organization [facility] Address [address] [place] [address]- Care Team Providers Care Printing Machine Mechanic Name Role Phone Richardson FURNITURE RENTAL CONSULTANT, Leonora Pérez Primary Care Physician [phone] [facility] Date(s): 08/28/20 - 09/27/20 [facility] [address] [place] [address]- Allergies, Adverse Reactions, Alerts Substance Reaction Severity [...] 14:12:00 EST, Powder, Route to Pharmacy Electronically, [id number], [facility]/pharmacy #[id number], 162.56, cm, 03/27/20 11:36:00... Start Date: [...] 1 Refills, Maintenance, 07/30/20 19:49:00 EDT, Cream, [facility]/pharmacy #[id number], 1 application Topically 2 times [...] 16 mL, 1 Refills, Maintenance, [id number], 30, USE 1 SPRAY IN BOTH NOSTRILS [...] 2 Refills, Maintenance, 08/27/20 11:00:00 EDT, Tablet, [facility]/pharmacy #0488, 163, cm, 08/15/20 14:23:00 EDT, Height, [...] 05/07/20 13:30:00 EST, Route to Pharmacy Electronically, [facility]/pharmacy #0488, 162, cm, 04/21/20 11:33:00 EST, Height, 80, kg, 04/18/20 9:48:00 EST, Dry Weight Start Date: 05/07/20 Status: Ordered loratadine 10 mg oral capsule 1 capsule = 10 mg, By Mouth, Daily, # 40 capsule, 0 Refills, Maintenance, 08/15/20 15:59:00 EDT, Capsule, [facility]/pharmacy #[id number], Partial fill upon patient request if the prescription is for a schedule II opioid drug., 163, cm, 08/15/20 14:23:00 EDT, Heig... Start Date: 08/15/20 Status: Ordered Mapap 325 mg oral tablet 2 tablet = 650 mg, By Mouth, Every 4 hours, PRN for pain, not to exceed 3000 mg/day. instructions in [place], # 120 tablet, 2 Refills, Maintenance, 11/01/19 15:24:00 EDT, Tablet, [facility]/pharmacy #0488, 163, cm, 11/01/19 14:40:00 EDT, [...] 2 Refills, Maintenance, 04/05/20 14:08:00 EST, Tablet, [facility]/pharmacy #0488, Partial fill upon patient request if the prescription is for a schedule II opioid drug., 162.56, cm, ... Start Date: 04/05/20 Status: Ordered omeprazole 40 mg oral enteric coated capsule 1 capsule = 40 mg, By Mouth, Daily, # 90 capsule, 0 Refills, Maintenance, 08/13/20 10:34:00 EDT, ECCapsule, [facility]/pharmacy #0488, 163, cm, 08/09/20 8:45:00 EDT, Height, [...] day, for 28 days, on contract at [facility], # 56 tablet, 0 Refills, Acute 10/25/20 15:14:00 EDT, 09/27/20 15:14:00 EDT, [id number], Partial fill upon patient [...] 06/04/20 12:46:00 EST, Route to Pharmacy Electronically, [facility]/pharmacy #0488, 162, cm, 05/24/20 9:01:00 EST, Height, 80, kg, 04/18/20 9:48:00 EST, Dry... Start Date: 06/04/20 Status: Ordered Soma 350 mg oral tablet 350 mg, 1, tablet, By Mouth, 3 times a day, # 9 tablet, Refills 0, Tot. Refills 0, Maintenance, 05/04/20 15:46:00 EST, Route to Pharmacy Electronically, [facility]/pharmacy #[id number], Partial fill upon patient request if the prescription is for a schedule II opi... Start Date: 05/04/20 Status: Ordered Spiriva Respimat 60 ACT 2.5 mcg/inh inhalation aerosol 2 puffs, Inhalation, Daily, # 1 each, 11 Refills, Maintenance, 04/05/20 14:17:00 EST, [facility]/pharmacy #0488, Partial fill upon patient [...] 08/16/20 11:59:00 EDT, Route to Pharmacy Electronically, [facility]/pharmacy #[id number], 163, cm, 08/15/20 14:23:00 EDT, Height, [...]
--- OUTSIDE RECORDS SUMMARY | 2023-03-25 08:23 | XMS_ITS | Continuity of Care Document ---
Author Name Unknown Organization [facility] Address [address] [place] [address]- Care Team Providers Care Demonstrator Sales Name Role Phone Richardson QUIROZ, Leonora Pérez Primary Care Physician [phone] [facility] Date(s): 07/25/19 - 08/01/19 [facility] [address] [place] [address]- [facility] Encounter Diagnosis Suspected 2019-nCoV infection(Discharge Diagnosis) - 07/25/19 Asthma(Discharge Diagnosis) - 07/25/19 Breast cyst(Discharge Diagnosis) - 07/25/19 Attending Physician: Richardson QUIROZ, Leonora Pérez Allergies, [...] 12:48:00 EST, Powder, Route to Pharmacy Electronically, [id number], [facility]/pharmacy #[id number], 158, cm, 04/26/19 9:58:00 EST, H... Start Date: 04/27/19 Status: Ordered albuterol 0.083% inhalation solution 3 mL = 2.5 mg, Inhalation, Every 4 hours, PRN for wheezing, # 100 each, 5 Refills, Maintenance, 06/27/19 14:32:00 EDT, Solution, [facility]/pharmacy #[id number], 160, cm, 06/01/19 14:08:00 [...] 5 Refills, Maintenance, 04/19/19 15:40:00 EST, Tablet, [facility]/pharmacy #0488, 158, cm, 04/04/19 15:21:00 EST, Height, 82, kg, 04/01/19 16:10:00 EST, Dry Weight Start Date: 04/19/19 Status: Ordered clonazePAM 0.5 mg oral tablet TAKE 1 TABLET BY MOUTH TWICE A DAY NEEDED Start Date: 06/02/19 Status: Ordered clotrimazole 1% topical cream 1 application, Topically, 2 times a day, # 30 Gm, 0 Refills, Maintenance, 05/30/19 19:02:00 EST, Cream, [facility]/pharmacy #0488, 1 application Topically 2 [...] 5 Refills, Maintenance, 04/28/19 16:05:00 EST, Tablet, [facility]/pharmacy #0488, 158, cm, 04/28/19 14:51:00 EST, Height, 82, kg, 04/01/19 16:10:00 EST, Dry Weight Start Date: 04/28/19 Status: Ordered lidocaine 5% topical film 1 patch, Topically, Daily, For chronic radicular back pain, # 30 patch, 5 Refills, Maintenance, 06/27/19 14:37:00 EDT, [facility]/pharmacy #[id number], 1 patch Topically Daily,Instr:For chronic radicular back pain, 160, cm, 06/01/19 14:08:00 EST, Height, 88.9, kg,... Start Date: 06/27/19 Status: Ordered lisinopril 10 mg oral tablet 10 mg, 1, tablet, By Mouth, Daily, # 90 tablet, Refills 3, Tot. Refills 3, Maintenance, 05/08/19 20:27:00 EST, Route to Pharmacy Electronically, [facility]/pharmacy #[id number], to replace 2.5mg dose, 158, cm, [...] danish, # 120 tablet, 2 Refills, Maintenance, 07/25/19 8:41:00 EDT, Tablet, [facility]/pharmacy #0488, 160, cm, 07/22/19 15:08:00 EDT, Height, 86.8, kg, 04... Start Date: 07/25/19 Status: Ordered metFORMIN 750 mg oral tablet, extended release 1 tablet = 750 mg, By Mouth, 2 times a day, # 60 tablet, 6 Refills, Maintenance, 05/30/19 18:54:00 EST, ER Tablet, [facility]/pharmacy #0488, dose increased to BID 05/30/19, 160, [...] pain, for 28 days, on contract at [facility]., # 56 tablet, 0 Refills, Acute 08/04/19 13:49:00 EDT, 07/07/19 13:49:00 EDT, [facility]/pharmacy #[id number], Partial fill upon patient request, 160, cm, 06/01/19 14:08:00 EST,... Start Date: 07/07/19 Stop Date: 08/04/19 Status: Ordered prazosin 1 mg oral capsule 1 mg, 1, capsule, By Mouth, Daily at bedtime, for nightmares, # 30 capsule, Refills 0, Tot. Refills0, Maintenance, 05/30/19 18:52:00 EST, Route to Pharmacy Electronically, [facility]/pharmacy #[id number], 160, cm, 05/30/19 18:08:00 EST, Height, 88.9, kg, 05/23/19... Start Date: 05/30/19 Status: Ordered predniSONE 20 mg oral tablet 2 tablet = 40 mg, By Mouth, Daily, for 5 days, # 10 tablet, 0 Refills, Acute 08/02/19 11:55:00 EDT,07/28/19 11:55:00 EDT, [facility]/pharmacy #[id number], 160, cm, 07/22/19 15:08:00 EDT, Height, 86.8, kg, 07/22/19 15:13:00 EDT, Dry Weight Start Date: 07/28/19 Stop Date: 08/02/19 Status: Ordered raNITIdine 300 mg oral tablet See Instructions, # 30 tablet, Refills 2 Tot. Refills 2, TAKE 1 TABLET BY MOUTH EVERYDAY AT BEDTIME, [facility]/pharmacy #[id number] Start Date: 01/27/19 Status: Ordered Senexon-S 2 tablet, By Mouth, Daily at bedtime, 0 Refills, Maintenance, 11/25/18 10:10:49 EDT Start Date: 11/25/18 Status: Ordered senna 187 mg oral tablet 1 tablet = 8.6 mg, By Mouth, Daily at bedtime, PRN as needed for constipation, # 100 tablet, 5 Refills, Maintenance, 05/04/19 9:35:00 EST, [facility]/pharmacy #0488, 158, cm, 04/28/19 14:51:00 EST, Height, 82, kg, 04/01/19 16:10:00 EST, Dry Weight Start Date: 05/04/19 Status: Ordered Senna 8.6 mg oral tablet 8.6 mg, 1, tablet, By Mouth, Daily at bedtime, # 100 tablet, Refills 2, Tot. Refills 2, Maintenance, 06/10/19 16:12:00 EST, Route to Pharmacy Electronically, [facility]/pharmacy #[id number], 160, cm, 06/01/19 14:08:00 EST, Height, 88.9, kg, 05/23/19 22:09:00 EST,... Start Date: 06/10/19 Status: Ordered Spiriva Respimat 60 ACT 2.5 mcg/inh inhalation aerosol 2 puffs, Inhalation, Daily, # 1 each, 5 Refills, Maintenance, 04/26/19 10:30:00 EST, [facility]/pharmacy #0488, 158, cm, 04/26/19 9:58:00 EST, Height, 82, kg, 04/01/19 16:10:00 EST, Dry Weight Start Date: 04/26/19 Status: Ordered tiZANidine 2 mg oral tablet 2 mg, 1, tablet, By Mouth, 2 times a day, PRN, # 30 tablet, Refills 2, Tot. Refills 2, Maintenance,as needed for muscle spasm, 07/25/19 8:41:00 EDT, Route to Pharmacy Electronically, [facility]/pharmacy #[id number], 160, cm, 07/22/19 15:08:00 EDT, Height, [...] MARILIN on CPAP(Confirmed) Active Panic attacks(Confirmed) Active *[phone]/Health longterm, active care coordination(Confirmed) Active Acute meniscal tear of right knee(Confirmed) 06/2015 Active Tobacco dependence(Confirmed) Active DM2 (diabetes mellitus, type 2)(Confirmed) 04/03/17 Active Incontinence of urine(Confirmed) 7 Active 1surgically repaired November 2015, Dr. 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 Sg MENDEZ 7urge and stress Diagnosis Diagnosis Type Effective Dates Health Status Cl inical Service Informant Suspected 2019-nCoV infection Discharge Diagnosis 07/25/19 Asthma Discharge Diagnosis 07/25/19 Breast cyst Discharge Diagnosis 07/25/19 Social History Social History Type Response Tobacco Use: Pt states she q uit smoking 1 week ago. Sex Female
--- OUTSIDE RECORDS SUMMARY | 2023-03-25 08:23 | XMS_ITS | Continuity of Care Document ---
Author Name Unknown Organization [facility] Address [address] [place] [address]- Care Team Providers Care Operations Tech Name Role Phone Richardson QUIROZ, Leonora Pérez Primary Care Physician [facility] Date[facility]): 07/[facility]/21 - 08/21/21 [facility] [address] [place], [place] [address] Allergies, Adverse Reactions, Alerts Substance Reaction Severity Status morphine Active gabapentin swelling Active Lyrica dysphagia Active SEROquel body swelling - all over Act tony MetFORMIN Hydrochloride ER black tarry stool Active Immunizations Given and Recorded Vaccine Date Status Refusal Reason SARS-CoV-2 mRNA ([id number]) vax 05/14/21 Given influenza virus vaccine, inactivated [...] 07/18/21 15:15:00 EDT, Route to Pharmacy Electronically, [facility], Partial fill upon patient request if the prescription is for a sched... Start Date: 07/18/21 Status: Ordered Advair Diskus 500 mcg-50 mcg inhalation powder 1, puffs, Inhalation, 2 times a day, j45.909, # 1 each, Refills 5, Tot. Refills 5, Maintenance, 05/15/21 9:20:00 EST, Powder, Route to Pharmacy Electronically, [id number], [facility], 162.5, cm, 05/10/21 14:47... Start Date: 05/15/21 Status: Ordered albuterol 0.083% inhalation solution 3 mL = 2.5 mg, Inhalation, Every 4 hours, PRN for wheezing, # 100 each, 2 Refills, Maintenance, 05/15/21 9:30:00 EST, Solution, [facility], 162.5, cm, 05/10/21 14:47:00 EST, Height, 90.9, kg, 02/02/21 5:59:00 EDT, Dry Weight Start Date: 05/15/21 Status: Ordered amitriptyline 25 mg oral tablet 25 mg, 1, tablet, By Mouth, Daily at bedtime, Dose decrease, # 30 tablet, Refills 0, Tot. Refills 0, Maintenance, 08/01/21 15:07:00 EDT, Route to Pharmacy Electronically, [facility], Partial fill upon patient request if the prescriptio... Start Date: 08/01/21 Status: Ordered atorvastatin 40 mg oral tablet 1 tablet = 40 mg, By Mouth, Daily, # 90 tablet, 3 Refills, Maintenance, 07/08/21 9:47:00 EDT, Tablet, [facility], Partial fill upon patient request if the prescription is for a schedule II opioid drug., 162.5, cm, 07/08/21 8:49:00 EDT,... Start Date: 07/08/21 Status: Ordered cetirizine 10 mg oral tablet 1 tablet = 10 mg, By Mouth, Daily, # 30 tablet, 5 Refills, Maintenance, 07/08/21 9:44:00 EDT, Tablet, [facility] 162.5, cm, 07/08/21 8:49:00 EDT, Height, 85.8, kg, 06/04/21 10:03:00 EST, Dry Weight Start Date: 07/08/21 Status: Ordered cholecalciferol 5000 intl units oral capsule 1 capsule = 125 mcg, By Mouth, Daily, with food, # 100 capsule, 2 Refills, Maintenance, 02/11/21 11:17:00 EST, Capsule, [facility]/pharmacy #[id number], Partial fill upon patient request [...] 1 Refills, Maintenance, 07/08/21 9:45:00 EDT, Cream, [facility], PLEASE CANCEL ESTRADIOL VAGINAL CREAM, 1 [...] 5 Refills, Maintenance, 02/18/21 15:09:00 EST, Capsule, [facility]/pharmacy #[id number], Partial fill upon patient request. NOT INCREASED DOSE, 155, cm, 02/18/2114:54:00 EST, Height, 90.9, kg, 02/02/21 5:59:00 ED... Start Date: 02/18/21 Status: Ordered empagliflozin 10 mg oral tablet 1 tablet = 10 mg, By Mouth, Daily in AM, # 30 tablet, 5 Refills, Maintenance, 07/08/21 9:43:00 EDT,Tablet, [facility], Partial fill upon patient request if the prescription is for a schedule II opioid drug., 162.5, cm, 07/08/21 8:49:0... Start Date: 07/08/21 Status: Ordered fluticasone 50 mcg/inh nasal spray See Instructions, USE 1 SPRAY IN BOTH NOSTRILS 2 TIMES A DAY, # 16 mL, 1 Refills, 07/08/21 9:44:00 EDT, [facility]., 30, USE 1 SPRAY IN BOTH NOSTRILS 2 TIMES A DAY, 162.5, cm, :49:00 EDT, Height, 85.8, kg, 06/04/21 10:03:00 ES... Start Date: 07/08/21 Status: Ordered hydrochlorothiazide 12.5 mg oral tablet 1 tablet = 12.5 mg, By Mouth, Daily, TAKE 1 TABLET BY MOUTH EVERY DAY, # 30 capsule, 2 Refills, Maintenance, 05/15/21 9:20:00 EST, [facility]., 162.5, cm, 05/10/21 14:47:00 EST, Height, [...] 3 Refills, Maintenance, 06/18/21 21:04:00 EDT, Tablet, [facility]., 162.5, cm, 06/17/21 13:04:00 EDT, Height, 85.8, kg, 06/04/21 10:03:00 EST, Dry Weight Start Date: 06/18/21 Status: Ordered Lantus 100 u/ml subcutaneous solution = 50 units, Subcutaneous Injection, Daily, # 15 mL, 5 Refills, Maintenance, 07/08/21 9:38:00 EDT, Solution, [facility]., ;, 162.5, cm, 07/08/21 8:49:00 EDT, Height, 85.8, kg, 06/04/21 10:03:00 EST, Dry Weight Start Date: 07/08/21 Status: Ordered lisinopril 20 mg oral tablet 20 mg, 1, tablet, By Mouth, Daily, # 90 tablet, Refills 3, Tot. Refills 3, Maintenance, 04/12/21 13:24:00 EST, Route to Pharmacy Electronically, [facility]/pharmacy #[id number], 162.5, cm, 03/22/21 14:58:00 EST, Height, 90.9, kg, 02/02/21 5:59:00 EDT, Dry Weight Start Date: 04/12/21 Status: Ordered meloxicam 7.5 mg oral tablet 1 tablet = 7.5 mg, By Mouth, Daily, # 30 tablet, 1 Refills, Maintenance, 06/24/21 16:30:00 EDT, Tablet, [facility] Partial fill upon patient request [...] Refills, Maintenance, 05/09/21 10:45:00 EST, EC Capsule, [facility], 162.5, cm, 03/22/21 14:58:00 EST, Height, 90.9,kg, 02/02/21 5:59:00 EDT, Dry Weight Start Date: 05/09/21 Status: Ordered OxyCONTIN 15 mg oral tablet, extended release 1 tablet = 15 mg, By Mouth, Every 12 hours, # 56 tablet, 0 Refills, Maintenance, 08/03/21 7:30:00 EDT, ER Tablet, [facility], Partial fill upon patient request if [...] 07/08/21 9:39:00 EDT, Route to Pharmacy Electronically, [facility], 162.5, cm, 07/08/21 8:49:00 EDT, Height, 85.8, kg, 06/04/21 10:0... Start Date: 07/08/21 Status: Ordered tiZANidine 4 mg oral tablet 4 mg, 1, tablet, By Mouth, Every 8 hours, PRN, # 84 tablet, Refills 1, Tot. Refills 1, Maintenance,Spasm, 06/24/21 19:16:00 EDT, Route to Pharmacy Electronically, [facility], 162.5, cm, 06/24/21 15:35:00 EDT, Height, [...] 0 Refills, Maintenance, 08/01/21 14:59:00 EDT, Tablet, [facility]... 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
--- OUTSIDE RECORDS SUMMARY | 2023-03-25 08:23 | XMS_ITS | Continuity of Care Document ---
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 Start Date: 01/16/21 Status: Ordered Advair Diskus 500 mcg-50 mcg inhalation powder 1, puffs, Inhalation, 2 times a day, j45.909, # 1 each, Refills 11, Tot. Refills 11, Maintenance, 04/05/20 14:12:00 EST, Powder, Route to Pharmacy Electronically, [id number], [facility]/pharmacy #[id number], 162.56, cm, 03/27/20 11:36:00... Start Date: 04/05/20 Status: Ordered albuterol 0.083% inhalation solution 3 mL = 2.5 mg, Inhalation, Every 4 hours, PRN for wheezing, # 100 each, 2 Refills, Maintenance, 08/15/20 10:22:00 EDT, Solution, [facility]/pharmacy #[id number], 163, cm, 08/09/20 8:45:00 EDT, Height, 84.8, kg, 06/25/20 20:28:00 EDT, Dry Weight Start Date: 08/15/20 Status: Ordered amitriptyline 50 mg oral tablet 1 tablet, By Mouth, Daily at bedtime, # 90 tablet, 1 Refills, [id number], 155, cm, 02/04/21 11:46:00 EDT, Height, 90.9, [...] DAY, # 16 mL, 1 Refills, Maintenance, [facility] [id number], 30, USE 1 SPRAY IN BOTH NOSTRILS [...] 2 Refills, Maintenance, 10/29/20 14:07:00 EDT, Tablet, [facility]/pharmacy #[id number], 163, cm, 08/15/20 14:23:00 [...] patch, 5 Refills, Maintenance, 10/11/20 8:15:00 EDT, [facility]/pharmacy #[id number], 1 patch Topically Daily,Instr:For [...] 0 Refills, Maintenance, 08/15/20 15:59:00 EDT, Capsule, [facility]/pharmacy #[id number], Partial fill upon patient request if the prescription is for a schedule II opioid drug., 163, cm, 08/15/20 14:23:00 EDT, Heig... Start Date: 08/15/20 Status: Ordered mirabegron 25 mg oral tablet, extended release 1 tablet = 25 mg, By Mouth, Daily, do not crush or chew, # 30 tablet, 11 Refills, Maintenance, 12/31/20 15:58:00 EDT, ER Tablet, [facility]/pharmacy #[id number], Partial fill upon patient request if the prescription is for a schedule II opioid drug., 165, cm, 12/06... Start Date: 12/31/20 Status: Ordered mirtazapine 30 mg oral tablet 1 tablet = 30 mg, By Mouth, Daily at bedtime, Maintenance, 05/24/19 9:12:00 EST, Tablet Start Date: 05/24/19 Status: Ordered morphine 15 mg oral tablet, immediate release 1 tablet = 15 mg, By Mouth, 2 times a day, for 28 days, # 56 tablet, 0 Refills, Acute 02/28/21 14:14:00 EST, 01/31/21 14:14:00 EDT, [facility]., CANCEL OXYCODONE- DO NOT FILL. PRESCRIBING MORPHINE INSTEAD. ON CONTRACT AT [facility], 165, cm,... Start Date: 01/31/21 Stop Date: 02/28/21 Status: Ordered nabumetone 750 mg oral tablet 1 tablet = 750 mg, By Mouth, 2 times a day, Do not take with Naproxen, # 60 tablet, 1 Refills, Maintenance, 01/31/21 14:16:00 EDT, Tablet, [facility]., Partial fill upon patient request if the prescription is for a schedule II opioid drNishant.. Start Date: 01/31/21 Status: Ordered omeprazole 40 mg oral enteric coated capsule 1 capsule = 40 mg, By Mouth, Daily, PRN Dyspepsia, # 90 capsule, 0 Refills, Maintenance, 01/11/21 13:46:00 EDT, EC Capsule, [facility]/pharmacy #[id number], 165, cm, 12/31/20 14:56:00 EDT, Height, 87.6, kg, 12/31/20 14:56:00 EDT, Dry Weight Start Date: 01/11/21 Status: Ordered Senna 8.6 mg oral tablet 8.6 mg, 1, tablet, By Mouth, Daily at bedtime, # 100 tablet, Refills 11, Tot. Refills 11, Maintenance, 10/30/20 11:37:00 EDT, Route to Pharmacy Electronically, [facility]/pharmacy #[id number], 163, cm, 08/15/20 14:23:00 [...] 12/05/20 12:45:00 EDT, Route to Pharmacy Electronically, [facility]/pharmacy #[id number], 165, cm, 11/22/20 8:40:00 EDT, Height, 84.8, kg, 06/25/20 20:28:00... Start Date: 12/05/20 Stop Date: 01/30/21 Status: Ordered Trulicity Pen 0.75 mg/0.5 mL subcutaneous solution 0.5 mL = 0.75 mg, Subcutaneous Injection, Every week, rotate injection sites, # 2 mL, 5 Refills, Maintenance, 10/31/20 15:27:00 EDT, Solution, [facility]/pharmacy #[id number], Partial fill upon [...] [place] [facility] [place] 3urge and stress Social History Social History Type Response Smoking Status Current every day kaitlin valle; Type: Cigarettes; Tobacco use times per day: 1/2 ppd; entered on: 12/24/17 Sex
--- OUTSIDE RECORDS SUMMARY | 2023-03-25 08:23 | XMS_ITS | Continuity of Care Document ---
Author Name Unknown Organization [facility] Address [address] [place] [address]- Care Team Providers Care Supervisor Ship Maintenance Services Name Role Phone Richardson QUIROZ, Leonora Pérez Primary Care Physician [facility] 03[facility]21 - 04/05/21 [facility] [address] [place], [place] [address] Allergies, Adverse Reactions, Alerts Substance Reaction [...] 01/16/21 19:30:00 EDT, Route to Pharmacy Electronically, [facility]/pharmacy #[id number], Partial fill upon patient request if the prescription is for a schedule II o... Start Date: 01/16/21 Status: Ordered Advair Diskus 500 mcg-50 mcg inhalation powder 1, puffs, Inhalation, 2 times a day, j45.909, # 1 each, Refills 11, Tot. Refills 11, Maintenance, 04/05/20 14:12:00 EST, Powder, Route to Pharmacy Electronically, [id number], [facility]/pharmacy #[id number], 162.56, cm, 03/27/20 11:36:00... Start Date: 04/05/20 Status: Ordered albuterol 0.083% inhalation solution 3 mL = 2.5 mg, Inhalation, Every 4 hours, PRN for wheezing, # 100 each, 2 Refills, Maintenance, 08/15/20 10:22:00 EDT, Solution, [facility]/pharmacy #[id number], 163, cm, 08/09/20 8:45:00 EDT, Height, 84.8, kg, 06/25/20 20:28:00 EDT, Dry Weight Start Date: 08/15/20 Status: Ordered amitriptyline 50 mg oral tablet See Instructions, 1.5 tablets by Mouth Daily at bedtime, # 45 each, 1 Refills, 03/21/21 16:11:00 EST, [facility]/pharmacy #[id number], 162.5, cm, 03/14/21 10:31:00 EST, Height, 90.9, kg, 02/02/21 5:59:00 EDT, DryWeight Start Date: 03/21/21 Status: Ordered atorvastatin 20 mg oral tablet 3 tablet = 60 mg, By Mouth, Daily, # 90 tablet, 3 Refills, Maintenance, 04/05/20 14:11:00 EST, Tablet, [facility]/pharmacy #[id number], Partial fill upon patient request if the prescription is for a schedule II opioid drug., 162.56, cm, 03/27/20 11:36:00 EST, Heig... Start Date: 04/05/20 Status: Ordered capsaicin 0.025% topical cream 1 application, Topically, 3 times a day, # 45 Gm, 3 Refills, Maintenance, 11/01/19 15:25:00 EDT, Cream, [facility]/pharmacy #[id number], 1 application Topically 3 times a day, 163, cm, 11/01/19 14:40:00 EDT, Height, 80, kg, 10/29/19 0:29:00 EDT, Dry Weight Start Date: 11/01/19 Status: Ordered cetirizine 10 mg oral tablet 1 tablet = 10 mg, By Mouth, Daily, # 30 tablet, 5 Refills, Maintenance, 06/20/20 13:18:00 EDT, Tablet, [facility]/pharmacy #[id number], 162, cm, 05/24/20 9:01:00 EST, Height, 80, kg, 04/18/20 9:48:00 EST, Dry Weight Start Date: 06/20/20 Status: Ordered cholecalciferol 5000 intl units oral capsule 1 capsule = 125 mcg, By Mouth, Daily, with food, # 100 capsule, 2 Refills, Maintenance, 02/11/21 11:17:00 EST, Capsule, [facility]/pharmacy #[id number], Partial fill upon patient request [...] 1 Refills, Maintenance, 12/05/20 12:42:00 EDT, Cream, [facility]/pharmacy #[id number], 1 application Topically 2 times [...] 5 Refills, Maintenance, 02/18/21 15:09:00 EST, Capsule, [facility]/pharmacy #[id number], Partial fill upon patient request. NOT INCREASED DOSE, 155, cm, 02/18/2114:54:00 EST, Height, 90.9, kg, 02/02/21 5:59:00 ED... Start Date: 02/18/21 Status: Ordered estradiol 0.1 mg/g vaginal cream = 1 Gm, Vaginally, Daily at bedtime, # 30 Gm, 11 Refills, Maintenance, 12/31/20 15:58:00 EDT, [facility]/pharmacy #[id number], Partial fill upon patient request if the prescription is for a schedule II opioid drug., 165, cm, 12/31/20 14:56:00 EDT, Height, 87.6, kg... Start Date: 12/31/20 Status: Ordered fluticasone 50 mcg/inh nasal spray See Instructions, USE 1 SPRAY IN BOTH NOSTRILS 2 TIMES A DAY, # 16 mL, 1 Refills, Maintenance, [facility], 30, USE 1 SPRAY IN BOTH NOSTRILS 2 TIMES A DAY, 163, cm, 08/15/20 14:23:00 EDT, Height,84.8, kg, 06/25/20 20:28:00 EDT, Dry Weight Start Date: 09/07/20 Status: Ordered hydrochlorothiazide 12.5 mg oral tablet 1 tablet = 12.5 mg, By Mouth, Daily, TAKE 1 TABLET BY MOUTH EVERY DAY, # 30 capsule, 2 Refills, Maintenance, 03/22/21 16:20:00 EST, [facility]/pharmacy #[id number], 162.5, cm, 03/14/21 10:31:00 EST, [...] 2 Refills, Maintenance, 03/01/21 12:42:00 EST, Tablet, [facility]/pharmacy #[id number], 155, cm, 02/18/21 14:54:00 EST, Height, 90.9, kg, 02/02/21 5:59:00 EDT, DryWeight Start Date: 03/01/21 Status: Ordered Lantus 100 u/ml subcutaneous solution = 40 units, Subcutaneous Injection, Daily, # 12 mL, 2 Refills, Maintenance, 03/01/21 12:42:00 EST, Solution, [facility]/pharmacy #[id number], increased dose 12/26/19, 155, cm, 02/18/21 14:54:00 EST, Height, 90.9, kg, 02/02/21 5:59:00 EDT, Dry Weight Start Date: 03/01/21 Status: Ordered lidocaine 5% topical film 1 patch, Topically, Daily, For chronic radicular back pain, # 30 patch, 5 Refills, Maintenance, 10/11/20 8:15:00 EDT, [facility]/pharmacy #[id number], 1 patch Topically Daily,Instr:For chronic [...] 0 Refills, Maintenance, 08/15/20 15:59:00 EDT, Capsule, [facility]/pharmacy #[id number], Partial fill upon patient request if the prescription is for a schedule II opioid drug., 163, cm, 08/15/20 14:23:00 EDT, Heig... Start Date: 08/15/20 Status: Ordered mirabegron 25 mg oral tablet, extended release 1 tablet = 25 mg, By Mouth, Daily, do not crush or chew, # 30 tablet, 11 Refills, Maintenance, 12/31/20 15:58:00 EDT, ER Tablet, [facility]/pharmacy #[id number], Partial fill upon patient request [...] 1 Refills, Maintenance, 01/31/21 14:16:00 EDT, Tablet, [facility], Partial fill upon patient request if the prescription is for a schedule II opioid drJose. Start Date: 01/31/21 Status: Ordered omeprazole 40 mg oral enteric coated capsule 1 capsule = 40 mg, By Mouth, Daily, PRN Dyspepsia, # 90 capsule, 0 Refills, Maintenance, 01/11/21 13:46:00 EDT, EC Capsule, [facility]/pharmacy #[id number], 165, cm, 12/31/20 14:56:00 EDT, Height, 87.6, kg, 12/31/20 14:56:00 EDT, Dry Weight Start Date: 01/11/21 Status: Ordered oxyCODONE 15 mg oral tablet 1 tablet = 15 mg, By Mouth, 2 times a day, for 28 days, # 56 tablet, 0 Refills, Acute 04/19/21 11:49:00 EST, 03/22/21 11:49:00 EST, [facility]/pharmacy #[id number], Client on contract at [facility], failed Morphine, switching to oxycodone 15mg [...] 10/30/20 11:37:00 EDT, Route to Pharmacy Electronically, [facility]/pharmacy #[id number], 163, cm, 08/15/20 14:23:00 EDT, Height, 84.8, kg, 06/25/20 20:28:00 EDT... Start Date: 10/30/20 Status: Ordered Spiriva Respimat 60 ACT 2.5 mcg/inh inhalation aerosol 2 puffs, Inhalation, Daily, # 1 each, 11 Refills, Maintenance, 04/05/20 14:17:00 EST, [facility]/pharmacy #[id number], Partial fill upon patient request [...] 12/05/20 12:45:00 EDT, Route to Pharmacy Electronically, [facility]/pharmacy #[id number], 165, cm, 11/22/20 8:40:00 EDT, Height, 84.8, kg, 06/25/20 20:28:00... 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
--- OUTSIDE RECORDS SUMMARY | 2023-03-25 08:23 | XMS_ITS | Continuity of Care Document ---
Author Name Unknown Organization [facility] Address [address] [place] [address]- Care Team Providers Care Pre Billing Clinician Name Role Phone Richardson QUIROZ, Leonora Pérez Primary Care Physician [facility] Date[facility]s): 03/14/21 - 04/13/21 [facility] [address], [place] [address] Attending Physician: Clarence Reynaga Admitting Physician: Admtr, [...] 01/16/21 19:30:00 EDT, Route to Pharmacy Electronically, [facility]/pharmacy #[id number], Partial fill upon patient request if the prescription is for a schedule II o... Start Date: 01/16/21 Status: Ordered Advair Diskus 500 mcg-50 mcg inhalation powder 1, puffs, Inhalation, 2 times a day, j45.909, # 1 each, Refills 11, Tot. Refills 11, Maintenance, 04/05/20 14:12:00 EST, Powder, Route to Pharmacy Electronically, [id number], [facility]/pharmacy #[id number], 162.56, cm, 03/27/20 11:36:00... Start Date: 04/05/20 Status: Ordered albuterol 0.083% inhalation solution 3 mL = 2.5 mg, Inhalation, Every 4 hours, PRN for wheezing, # 100 each, 2 Refills, Maintenance, 08/15/20 10:22:00 EDT, Solution, [facility]/pharmacy #[id number], 163, cm, 08/09/20 8:45:00 EDT, Height, 84.8, kg, 06/25/20 20:28:00 EDT, Dry Weight Start Date: 08/15/20 Status: Ordered amitriptyline 50 mg oral tablet See Instructions, 1.5 tablets by Mouth Daily at bedtime, # 45 each, 1 Refills, 03/21/21 16:11:00 EST, [facility]/pharmacy #[id number], 162.5, cm, 03/14/21 10:31:00 EST, Height, 90.9, kg, 02/02/21 5:59:00 EDT, DryWeight Start Date: 03/21/21 Status: Ordered atorvastatin 20 mg oral tablet 3 tablet = 60 mg, By Mouth, Daily, # 90 tablet, 3 Refills, Maintenance, 04/05/20 14:11:00 EST, Tablet, [facility]/pharmacy #[id number], Partial fill upon patient request if the prescription is for a schedule II opioid drug., 162.56, cm, 03/27/20 11:36:00 EST, Heig... Start Date: 04/05/20 Status: Ordered capsaicin 0.025% topical cream 1 application, Topically, 3 times a day, # 45 Gm, 3 Refills, Maintenance, 11/01/19 15:25:00 EDT, Cream, [facility]/pharmacy #[id number], 1 application Topically 3 times a day, 163, cm, 11/01/19 14:40:00 EDT, Height, 80, kg, 10/29/19 0:29:00 EDT, Dry Weight Start Date: 11/01/19 Status: Ordered cetirizine 10 mg oral tablet 1 tablet = 10 mg, By Mouth, Daily, # 30 tablet, 5 Refills, Maintenance, 06/20/20 13:18:00 EDT, Tablet, [facility]/pharmacy #[id number], 162, cm, 05/24/20 9:01:00 EST, Height, 80, kg, 04/18/20 9:48:00 EST, Dry Weight Start Date: 06/20/20 Status: Ordered cholecalciferol 5000 intl units oral capsule 1 capsule = 125 mcg, By Mouth, Daily, with food, # 100 capsule, 2 Refills, Maintenance, 02/11/21 11:17:00 EST, Capsule, [facility]/pharmacy #[id number], Partial fill [...] 1 Refills, Maintenance, 12/05/20 12:42:00 EDT, Cream, [facility]/pharmacy #[id number], 1 application [...] 5 Refills, Maintenance, 02/18/21 15:09:00 EST, Capsule, [facility]/pharmacy #[id number], Partial fill [...] 16 mL, 1 Refills, Maintenance, [id number], 30, USE 1 SPRAY IN BOTH NOSTRILS [...] 2 Refills, Maintenance, 03/01/21 12:42:00 EST, Tablet, [facility]/pharmacy #[id number], 155, cm, 02/18/21 14:54:00 EST, Height, 90.9, kg, 02/02/21 5:59:00 EDT, DryWeight Start Date: 03/01/21 Status: Ordered Lantus 100 u/ml subcutaneous solution = 40 units, Subcutaneous Injection, Daily, # 12 mL, 2 Refills, Maintenance, 03/01/21 12:42:00 EST, Solution, [facility]/pharmacy #[id number], increased dose 12/26/19, 155, cm, 02/18/21 14:54:00 EST, Height, 90.9, kg, 02/02/21 5:59:00 EDT, Dry Weight Start Date: 03/01/21 Status: Ordered lidocaine 5% topical film 1 patch, Topically, Daily, For chronic radicular back pain, # 30 patch, 5 Refills, Maintenance, 10/11/20 8:15:00 EDT, [facility]/pharmacy #[id number], 1 patch Topically Daily,Instr:For chronic radicular back pain, 163, cm, 08/15/20 14:23:00 EDT, Height, 84.8, kg,... Start Date: 10/11/20 Status: Ordered lisinopril 20 mg oral tablet 20 mg, 1, tablet, By Mouth, Daily, # 90 tablet, Refills 3, Tot. Refills 3, Maintenance, 04/12/21 13:24:00 EST, Route to Pharmacy Electronically, [facility]/pharmacy #[id number], 162.5, cm, 03/22/21 14:58:00 [...] 0 Refills, Maintenance, 08/15/20 15:59:00 EDT, Capsule, [facility]/pharmacy #[id number], Partial fill upon patient request if the prescription is for a schedule II opioid drug., 163, cm, 08/15/20 14:23:00 EDT, Heig... Start Date: 08/15/20 Status: Ordered mirabegron 25 mg oral tablet, extended release 1 tablet = 25 mg, By Mouth, Daily, do not crush or chew, # 30 tablet, 11 Refills, Maintenance, 12/31/20 15:58:00 EDT, ER Tablet, [facility]/pharmacy #[id number], Partial fill [...] 1 Refills, Maintenance, 01/31/21 14:16:00 EDT, Tablet, [facility], Partial fill upon patient request if the prescription is for a schedule II opioid drCain Start Date: 01/31/21 Status: Ordered omeprazole 40 mg oral enteric coated capsule 1 capsule = 40 mg, By Mouth, Daily, PRN Dyspepsia, # 90 capsule, 0 Refills, Maintenance, 01/11/21 13:46:00 EDT, EC Capsule, [facility]/pharmacy #[id number], 165, cm, 12/31/20 14:56:00 EDT, Height, 87.6, kg, 12/31/20 14:56:00 EDT, Dry Weight Start Date: 01/11/21 Status: Ordered oxyCODONE 15 mg oral tablet 1 tablet = 15 mg, By Mouth, 2 times a day, for 28 days, # 56 tablet, 0 Refills, Acute 04/19/21 11:49:00 EST, 03/22/21 11:49:00 EST, [facility]/pharmacy #[id number], Client on contract at [facility], failed Morphine, switching to oxycodone 15mg [...] 10/30/20 11:37:00 EDT, Route to Pharmacy Electronically, [facility]/pharmacy #[id number], 163, cm, 08/15/20 14:23:00 EDT, Height, 84.8, kg, 06/25/20 20:28:00 EDT... 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
--- OUTSIDE RECORDS SUMMARY | 2023-03-25 08:23 | XMS_ITS | Continuity of Care Document ---
Author Name Unknown Organization [facility] Address [address] [place] [address]- Care Team Providers Care Installations Inspector Name Role Phone Richardson QUIROZ, Leonora Pérez Primary Care Physician [facility] Date[facility]s): 03/28/20 - 04/27/20 [facility] [address], [place] [address] Allergies, Adverse Reactions, Alerts Substance [...] 14:12:00 EST, Powder, Route to Pharmacy Electronically, [id number], [facility]/pharmacy #[id number], 162.56, cm, 03/27/20 11:36:00... Start Date: 04/05/20 Status: Ordered albuterol 0.083% inhalation solution 3 mL = 2.5 mg, Inhalation, Every 4 hours, PRN for wheezing, # 100 each, 5 Refills, Maintenance, 06/27/19 14:32:00 EDT, Solution, [facility]/pharmacy #[id number], 160, cm, 06/01/19 14:08:00 EST, Height, 88.9, kg, 05/23/19 22:09:00 EST, Dry Weight Start Date: 06/27/19 Status: Ordered amitriptyline 50 mg oral tablet 1 tablet = 50 mg, By Mouth, Daily at bedtime, # 30 tablet, 5 Refills, Maintenance, 12/30/19 18:21:00 EDT, Tablet, [facility]/pharmacy #[id number], 163, cm, 12/26/19 13:58:00 EDT, Height, 80, kg, 10/29/19 0:29:00 EDT, Dry Weight Start Date: 12/30/19 Status: Ordered atorvastatin 20 mg oral tablet 1 tablet = 20 mg, By Mouth, Daily, # 90 tablet, 3 Refills, Maintenance, 04/05/20 14:11:00 EST, Tablet, [facility]/pharmacy #[id number], Partial fill upon patient request if the prescription is for a schedule II opioid drug., 162.56, cm, 03/27/20 11:36:00 EST, Heig... Start Date: 04/05/20 Status: Ordered capsaicin 0.025% topical cream 1 application, Topically, 3 times a day, # 45 Gm, 3 Refills, Maintenance, 11/01/19 15:25:00 EDT, Cream, [facility]/pharmacy #[id number], 1 application Topically 3 times a day, 163, cm, 11/01/19 14:40:00 EDT, Height, 80, kg, 10/29/19 0:29:00 EDT, Dry Weight Start Date: 11/01/19 Status: Ordered cetirizine 10 mg oral tablet 1 tablet = 10 mg, By Mouth, Daily, # 30 tablet, 5 Refills, Maintenance, 12/13/19 18:32:00 EDT, Tablet, [facility]/pharmacy #[id number], 163, cm, 12/13/19 15:57:00 EDT, Height, 80, kg, 10/29/19 0:29:00 EDT, Dry Weight Start Date: 12/13/19 Status: Ordered clonazePAM 0.5 mg oral tablet TAKE 1 TABLET BY MOUTH TWICE A DAY NEEDED Start Date: 06/02/19 Status: Ordered clotrimazole 1% topical cream 1 application, Topically, 2 times a day, # 30 Gm, 1 Refills, Maintenance, 02/03/20 13:47:00 EDT, Cream, [facility]/pharmacy #[id number], 1 application Topically [...] patch, 5 Refills, Maintenance, 03/09/20 8:53:00 EST, [facility]/pharmacy #[id number], 1 patch Topically [...] not to exceed 3000 mg/day. instructions in filipino, # 120 tablet, 2 Refills, Maintenance, 11/01/19 15:24:00 EDT, Tablet, [facility]/pharmacy #0488, 163, cm, 11/01/19 [...] 2 Refills, Maintenance, 04/05/20 14:08:00 EST, Tablet, [facility]/pharmacy #[id number], Partial fill upon patient request if the prescription is for a schedule II opioid drug., 162.56, cm, 12/... Start Date: 04/05/20 Status: Ordered omeprazole 20 mg oral enteric coated capsule 1 capsule = 20 mg, By Mouth, Daily, Use as little as possible to control symptoms., # 30 capsule, 2Refills, Maintenance, 10/06/19 7:45:00 EDT, EC Capsule, [facility]/pharmacy #[id number], cancel Ranitidine, 160,cm, 09/28/19 8:58:00 [...] Acute 05/03/20 14:10:00 EST, 04/05/20 14:10:00 EST, [facility]/pharmacy #[id number], Partial fill upon patient request if the prescription is for a schedule II opioid drug. Client on c... Start Date: 04/05/20 Stop Date: 05/03/20 Status: Ordered Senna 8.6 mg oral tablet 8.6 mg, 1, tablet, By Mouth, Daily at bedtime, # 100 tablet, Refills 2, Tot. Refills 2, Maintenance, 06/10/19 16:12:00 EST, Route to Pharmacy Electronically, [facility]/pharmacy #[id number], 160, cm, 06/01/19 [...] 02/03/20 13:47:00 EDT, Route to Pharmacy Electronically, [facility]/pharmacy #[id number], 163, cm, 12/26/19 [...] [address] [place] 09[place]18[place]16 [place] [facility] [place] 3urge and stress Social History Social History Type Response Tobacco Use: Pt states she q uit smoking 1 week ago. Sex
--- OUTSIDE RECORDS SUMMARY | 2023-03-25 08:24 | XMS_ITS | Continuity of Care Document ---
Author Name Unknown Organization [facility] Address [address] [place] [address]- Care Team Providers Care Optometry Assistant Name Role Phone Richardson QUIROZ, Leonora Pérez Primary Care Physician [phone] [facility]s): 09/24/20 - 10/24/20 [facility] [address] [place] [address]- Allergies, Adverse Reactions, Alerts Substance Reaction Severity Status gabapentin swelling Active Lyrica dysphagia Active SEROquel body swelling - all over Act tony MetFORMIN Hydrochloride ER black tarry stool Active Immunizations Given and Recorded Vaccine Date Status Refusal Reason SARS-CoV-2 (COVID-19) mRNA BNT-162b2 vac 10/19/20 Given SARS-CoV-2 (COVID-19) mRNA BNT-162b2 vac 09/28/20 Given influenza virus vaccine, inactivated 1 04/19/20 Gi tnoio influenza virus vaccine, inactivated 03/12/19 Give n [...] 14:12:00 EST, Powder, Route to Pharmacy Electronically, [id number], [facility]/pharmacy #[id number], 162.56, cm, 03/27/20 11:36:00... Start Date: 04/05/20 Status: Ordered albuterol 0.083% inhalation solution 3 mL = 2.5 mg, Inhalation, Every 4 hours, PRN for wheezing, # 100 each, 2 Refills, Maintenance, 08/15/20 10:22:00 EDT, Solution, [facility]/pharmacy #[id number], 163, cm, 08/09/20 8:45:00 [...] 16 mL, 1 Refills, Maintenance, [id number], 30, USE 1 SPRAY IN BOTH NOSTRILS [...] 2 Refills, Maintenance, 08/27/20 11:00:00 EDT, Tablet, [facility]/pharmacy #[id number], 163, cm, 08/15/20 14:23:00 EDT, Height, 84.8, kg, 06/25/20 20:28:00 EDT, Dry Weight Start Date: 08/27/20 Status: Ordered Lantus 100 u/ml subcutaneous solution = 40 units, Subcutaneous Injection, Daily, # 12 mL, 11 Refills, Maintenance, 05/07/20 13:24:00 EST,Solution, [facility]/pharmacy #[id number], increased dose 12/26/19, 162, cm, 04/21/20 11:33:00 EST, Height, 80, kg, 04/18/20 9:48:00 EST, Dry Weight Start Date: 05/07/20 Status: Ordered lidocaine 5% topical film 1 patch, Topically, Daily, For chronic radicular back pain, # 30 patch, 5 Refills, Maintenance, 10/11/20 8:15:00 EDT, [facility]/pharmacy #[id number], 1 patch Topically Daily,Instr:For chronic radicular back pain, 163, cm, 08/15/20 14:23:00 EDT, Height, 84.8, kg,... Start Date: 10/11/20 Status: Ordered lisinopril 20 mg oral tablet 20 mg, 1, tablet, By Mouth, Daily, # 30 tablet, Refills 11, Tot. Refills 11, Maintenance, 05/07/20 13:30:00 EST, Route to Pharmacy Electronically, [facility]/pharmacy #[id number], 162, cm, 04/21/20 [...] not to exceed 3000 mg/day. instructions in ethiopian, # 120 tablet, 2 Refills, Maintenance, 11/01/19 [...] 2 Refills, Maintenance, 04/05/20 14:08:00 EST, Tablet, [facility]/pharmacy #[id number], Partial fill [...] day, for 28 days, on contract at [facility], # 56 tablet, 0 Refills, Acute 10/25/20 15:14:00 EDT, 09/27/20 15:14:00 EDT, [facility]/pharmacy #[id number], Partial fill [...] 06/04/20 12:46:00 EST, Route to Pharmacy Electronically, [facility]/pharmacy #[id number], 162, cm, 05/24/20 9:01:00 EST, Height, 80, kg, 04/18/20 9:48:00 EST, Dry... Start Date: 06/04/20 Status: Ordered Soma 350 mg oral tablet 350 mg, 1, tablet, By Mouth, 3 times a day, # 9 tablet, Refills 0, Tot. Refills 0, Maintenance, 05/04/20 15:46:00 EST, Route to Pharmacy Electronically, [facility]/pharmacy #[id number], Partial fill upon patient request if the prescription is for a schedule II opi... Start Date: 05/04/20 Status: Ordered Spiriva Respimat 60 ACT 2.5 mcg/inh inhalation aerosol 2 puffs, Inhalation, Daily, # 1 each, 11 Refills, Maintenance, 04/05/20 14:17:00 EST, [facility]/pharmacy #[id number], Partial [...] 08/16/20 11:59:00 EDT, Route to Pharmacy Electronically, [facility]/pharmacy #[id number], 163, cm, 08/15/20 14:23:00 [...]
--- OUTSIDE RECORDS SUMMARY | 2023-03-25 08:24 | XMS_ITS | Continuity of Care Document ---
Author Name Unknown Organization [facility] Address [address] [place] [address]- Care Team Providers Care Top Dyeing Machine Loader Name Role Phone Richardson QUIROZ, Leonora Pérez Primary Care Physician [phone] [facility]s): 08/28/21 - 09/27/21 [facility] [address] [place], [place] [address] [[email or web address]] Allergies, Adverse Reactions, Alerts Substance Reaction Severity Status morphine Active gabapentin swelling Active Lyrica dysphagia Active SEROquel body swelling - all over Act tony MetFORMIN Hydrochloride ER black tarry stool Active Immunizations Given and Recorded Vaccine Date Status Refusal Reason SARS-CoV-2 mRNA ([id number]) vax 05/14/21 Given influenza virus vaccine, inactivated [...] 09/09/21 13:08:00 EDT, Route to Pharmacy Electronically, [facility], Partial fill upon patient request if the prescription is for a sched... Start Date: 09/09/21 Status: Ordered Advair Diskus 500 mcg-50 mcg inhalation powder 1, puffs, Inhalation, 2 times a day, j45.909, # 1 each, Refills 5, Tot. Refills 5, Maintenance, 05/15/21 9:20:00 EST, Powder, Route to Pharmacy Electronically, [id number], [facility], 162.5, cm, 05/10/21 14:47... Start Date: 05/15/21 Status: Ordered albuterol 0.083% inhalation solution 3 mL = 2.5 mg, Inhalation, Every 4 hours, PRN for wheezing, # 100 each, 2 Refills, Maintenance, 05/15/21 9:30:00 EST, Solution, [facility], 162.5, cm, 05/10/21 14:47:00 EST, Height, 90.9, kg, 02/02/21 5:59:00 EDT, Dry Weight Start Date: 05/15/21 Status: Ordered amitriptyline 25 mg oral tablet 25 mg, 1, tablet, By Mouth, Daily at bedtime, # 30 tablet, Refills 2, Tot. Refills 2, Maintenance, 08/30/21 12:06:00 EDT, Route to Pharmacy Electronically, [facility], Partial fill upon patient request if the prescription is for a sche... Start Date: 08/30/21 Status: Ordered cetirizine 10 mg oral tablet 1 tablet = 10 mg, By Mouth, Daily, # 30 tablet, 5 Refills, Maintenance, 08/28/21 9:07:00 EDT, Tablet, [facility], 162, cm, 08/22/21 9:46:00 EDT, Height, 86, kg, 07/23/21 0:58:00 EDT, Dry Weight Start Date: 08/28/21 Status: Ordered cholecalciferol 5000 intl units oral capsule 1 capsule = 125 mcg, By Mouth, Daily, with food, # 100 capsule, 2 Refills, Maintenance, 02/11/21 11:17:00 EST, Capsule, [facility]/pharmacy #[id number], Partial fill upon patient [...] 1 Refills, Maintenance, 07/08/21 9:45:00 EDT, [facility] P[facility] CANCEL ESTRADIOL VAGINAL CREAM, [...] tablet, 5 Refills, Maintenance, 08/28/21 9:07:00 EDT,Tablet, [facility], Partial fill upon patient request if the prescription is for a schedule II opioid drug., 162, cm, 08/22/21 9:46:00... Start Date: 08/28/21 Status: Ordered fluticasone 50 mcg/inh nasal spray See Instructions, USE 1 SPRAY IN BOTH NOSTRILS 2 TIMES A DAY, # 16 mL, 1 Refills, 07/08/21 9:44:00 EDT, [facility], 30, USE 1 SPRAY IN BOTH NOSTRILS 2 TIMES A DAY, 162.5, cm, :49:00 EDT, Height, 85.8, kg, 06/04/21 10:03:00 ES... Start Date: 07/08/21 Status: Ordered hydrochlorothiazide 12.5 mg oral tablet 1 tablet = 12.5 mg, By Mouth, Daily, TAKE 1 TABLET BY MOUTH EVERY DAY, # 30 capsule, 2 Refills, Maintenance, 08/28/21 9:07:00 EDT, [facility], 162, cm, 08/22/21 9:46:00 EDT, Height, 86, kg, 07/23/21 0:58:00 EDT, Dry Weight Start Date: 08/28/21 Status: Ordered ibuprofen 800 mg oral tablet 800 mg, 1, tablet, By Mouth, 3 times a day, PRN, # 90 tablet, Refills 1, Tot. Refills 1, Maintenance, Pain , Mild, 09/10/21 14:23:00 EDT, Route to Pharmacy Electronically, [facility],please fill 800mg instead of 600mg, 162, [...] 3 Refills, Maintenance, 06/18/21 21:04:00 EDT, Tablet, [facility], 162.5, cm, 06/17/21 13:04:00 EDT, Height, 85.8, kg, 06/04/21 10:03:00 EST, Dry Weight Start Date: 06/18/21 Status: Ordered Lantus 100 u/ml subcutaneous solution = 50 units, Subcutaneous Injection, Daily, # 15 mL, 5 Refills, Maintenance, 07/08/21 9:38:00 EDT, Solution, [facility], ;, 162.5, cm, 07/08/21 8:49:00 EDT, Height, 85.8, kg, 06/04/21 10:03:00 EST, Dry Weight Start Date: 07/08/21 Status: Ordered lisinopril 20 mg oral tablet 20 mg, 1, tablet, By Mouth, Daily, # 90 tablet, Refills 3, Tot. Refills 3, Maintenance, 08/28/21 9:07:00 EDT, Route to Pharmacy Electronically, [facility], 162, cm, 08/22/21 9:46:00 EDT, Height, [...] Refills, Maintenance, 05/09/21 10:45:00 EST, EC Capsule, [facility], 162.5, cm, 03/22/21 14:58:00 EST, Height, 90.9,kg, 02/02/21 5:59:00 EDT, Dry Weight Start Date: 05/09/21 Status: Ordered OxyCONTIN 30 mg oral tablet, extended release 1 tablet = 30 mg, By Mouth, Every 12 hours, # 56 tablet, 0 Refills, Maintenance, 09/06/21 13:32:00 EDT, ER Tablet, [facility], Partial fill upon patient request if the prescription isfor a schedule II opioid drug. ON contract at [facility],... Start Date: 09/06/21 Stop Date: 10/04/21 Status: Ordered Senna 8.6 mg oral tablet 8.6 mg, 1, tablet, By Mouth, Daily at bedtime, # 100 tablet, Refills 11, Tot. Refills 11, Maintenance, 07/08/21 9:39:00 EDT, Route to Pharmacy Electronically, [facility], 162.5, cm, 07/08/21 8:49:00 EDT, Height, 85.8, kg, 06/04/21 10:0... 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
--- OUTSIDE RECORDS SUMMARY | 2023-03-25 08:24 | XMS_ITS | Continuity of Care Document ---
Author Name Unknown Organization [facility] Address [address] [place] [address]- Care Team Providers Care Call Center Operator Name Role Phone Richardson QUIROZ, Leonora Pérez Primary Care Physician Encounter [facility] Date(s): 03/10/19 - 03/17/19 [facility] [address] [place] [address]- [facility] Attending Physician: Darshan GERARDO, Serge Cruz [...] 15:03:51 EDT, Powder, Route to Pharmacy Electronically, [id number], [facility]/pharmacy #[id number] Start Date: 11/15/18 Status: Ordered [...] EDT, Tablet Start Date: 12/20/18 Status: Ordered capsaicin 0.025% topical cream 1 [...] EST, Compound Start Date: 02/18/19 Status: Ordered duloxetine 60 mg oral enteric coated capsule TAKE 1 CAPSULE BY MOUTH EVERY DAY Start Date: 10/29/17 Status: Ordered fluticasone 50 mcg/inh nasal spray See Instructions, # 16 mL, Refills 5 Tot. Refills 5, USE 1 SPRAY IN BOTH NOSTRILS DAILY, [facility]/pharmacy #[id number] Start Date: 12/01/18 Status: Ordered [...] HOURS THEN LEAVE OFF FOR 12 HOURS, [facility]/pharmacy #[id number] Start Date: 12/20/18 Status: Ordered lisinopril 5 mg oral tablet 2.5 mg, 0.5, tablet, By Mouth, Daily, # 15 tablet, Refills 0, Tot. Refills 0, Maintenance, 03/15/1910:26:38 EST, Route to Pharmacy Electronically, [id number], [facility]/pharmacy #[id number], 163, cm, 03/15/19 6:25:33 EST, [...] danish, # 120 tablet, 2 Refills, Maintenance, 11/04/18 [...] day, for 28 days, on contract at [facility] # 56 tablet, 0 Refills, Acute [...] 1 TABLET BY MOUTH EVERYDAY AT BEDTIME, [facility]/pharmacy #[id number] Start Date: 01/27/19 Status: Ordered Senexon-S 2 tablet, By Mouth, Daily at bedtime, 0 Refills, Maintenance, 11/25/18 10:10:49 EDT Start Date: 11/25/18 Status: Ordered tiZANidine 4 mg oral tablet 4 mg, 1, tablet, By Mouth, Every 8 hours, # 90 tablet, Refills 2, Tot. Refills 2, Soft Stop, 03/10/19 12:35:20 EST, Route to Pharmacy Electronically, [id number], [facility]/pharmacy #[id number], 163, cm, 02/28/19 16:57:41 EST, Height, 81,... Start Date: 03/10/19 Status: Ordered Tums 500 mg oral tablet, chewable 500 mg, 1, tablet, Chew, 2 times a day, PRN, # 45 tablet, Refills 0, Tot. Refills 0, Maintenance, as needed for dyspepsia, 10/18/18 15:31:54 EDT, Route to Pharmacy Electronically, [id number], [facility]/pharmacy #[id number] Start Date: 10/18/18 Status: Ordered [...] on CPAP(Confirmed) Active Panic attacks(Confirmed) Active *BHN/BHCP/Efrem Macdonald-[phone]/[facility], active care coordination(Confirmed) Active Acute meniscal tear of right knee(Confirmed) 7 06/2015 Active Tobacco dependence(Confirmed) Active DM2 (diabetes mellitus, type 2)(Confirmed) 04/03/17 Active Incontinence of urine(Confirmed) 8 Active 1surgically repaired November 2015, Dr. Sg MENDEZ 2DJD Lumbar Spine per MRI 3L3-L4 disc herniation per client report 4seen on MRI 10/2016, rec repeat imaging in October 2017 5done in [place] 6seen on CT Abd 09/18/16 at [facility], pending MRI 7surgically repaired July 2015 Dr. Sg MENDEZ 8urge and stress Vital Signs Most recent to oldest [Reference Range]: 1 Height 163 cm (03/10/19 3:00 PM) Weight 85.4 kg (03/10/19 3:00 PM) Oxygen Saturation [94-100 %] 97 % (03/10/19 3:00 PM) Pulse Rate [55-90 bpm] 98 bpm *H* (03/10/19 3:00 PM) Body Mass Index [18.5-24.99] 32.14 *>HHI* (03/10/19 3:00 PM) Blood Pressure [90-138/55-84 mm Hg] 167/ 90mm Hg *H* (03/10/19 3:00 PM) Respiratory Rate [16-30 br/min] 30 br/mi n (03/10/19 3:00 PM) Temperature [96.8-100.4 DegF] 98.3 DegF (03/10/19 3:00 PM) Mode of Delivery (Oxygen) Room air (03/10/19 3:00 PM) Blood pressure sites Arm, left (03/10/19 3:00 PM) Temperature Route Oral (03/10/19 3:00 PM) Dry Weight 85.4 kg (03/10/19 3:00 PM) Weight Obtained Via Standing scale (03/10/19 3:00 PM) Dry Weight Obtained Via Standing scale (03/10/19 3:00 PM) Social History Social History Type Response Tobacco Use: Pt states she q uit smoking 1 week ago. Sex
--- OUTSIDE RECORDS SUMMARY | 2023-03-25 08:24 | XMS_ITS | Continuity of Care Document ---
Author Name Unknown Organization [facility] Address [address] [place] [address]- Care Team Providers Care Web Content Manager Name Role Phone Richardson QUIROZ, Leonora Pérez Primary Care Physician Encounter [facility] Date(s): 03/25/21 - 04/24/21 [facility] [address], [place] [address] Allergies, Adverse Reactions, Alerts Substance Reaction Severity [...] 01/16/21 19:30:00 EDT, Route to Pharmacy Electronically, [facility]/pharmacy #[id number], Partial fill upon patient request if the prescription is for a schedule II o... Start Date: 01/16/21 Status: Ordered Advair Diskus 500 mcg-50 mcg inhalation powder 1, puffs, Inhalation, 2 times a day, [id number], # 1 each, Refills 11, Tot. Refills 11, Maintenance, 04/05/20 14:12:00 EST, Powder, Route to Pharmacy Electronically, [id number], [facility]/pharmacy #[id number], 162.56, cm, 03/27/20 11:36:00... Start Date: 04/05/20 Status: Ordered albuterol 0.083% inhalation solution 3 mL = 2.5 mg, Inhalation, Every 4 hours, PRN for wheezing, # 100 each, 2 Refills, Maintenance, 08/15/20 10:22:00 EDT, Solution, [facility]/pharmacy #[id number], 163, cm, 08/09/20 8:45:00 EDT, Height, 84.8, kg, 06/25/20 20:28:00 EDT, Dry Weight Start Date: 08/15/20 Status: Ordered amitriptyline 50 mg oral tablet See Instructions, 1.5 tablets by Mouth Daily at bedtime, # 45 each, 1 Refills, 03/21/21 16:11:00 EST, [facility]/pharmacy #[id number], 162.5, cm, 03/14/21 10:31:00 EST, [...] 5 Refills, Maintenance, 06/20/20 13:18:00 EDT, Tablet, [facility]/pharmacy #[id number], 162, cm, 05/24/20 9:01:00 EST, Height, 80, kg, 04/18/20 9:48:00 EST, Dry Weight Start Date: 06/20/20 Status: Ordered cholecalciferol 5000 intl units oral capsule 1 capsule = 125 mcg, By Mouth, Daily, with food, # 100 capsule, 2 Refills, Maintenance, 02/11/21 11:17:00 EST, Capsule, [facility]/pharmacy #[id number], Partial fill [...] 1 Refills, Maintenance, 12/05/20 12:42:00 EDT, Cream, [facility]/pharmacy #[id number], [...] 5 Refills, Maintenance, 02/18/21 15:09:00 EST, Capsule, [facility]/pharmacy #[id number], Partial fill upon patient request. NOT INCREASED DOSE, 155, cm, 02/18/2114:54:00 EST, Height, 90.9, kg, 02/02/21 5:59:00 ED... Start Date: 02/18/21 Status: Ordered estradiol 0.1 mg/g vaginal cream = 1 Gm, Vaginally, Daily at bedtime, # 30 Gm, 11 Refills, Maintenance, 12/31/20 15:58:00 EDT, [facility]/pharmacy #[id number], Partial fill upon patient request if the prescription is for a schedule II opioid drug., 165, cm, 12/31/20 14:56:00 EDT, Height, 87.6, kg... Start Date: 12/31/20 Status: Ordered fluticasone 50 mcg/inh nasal spray See Instructions, USE 1 SPRAY IN BOTH NOSTRILS 2 TIMES A DAY, # 16 mL, 1 Refills, Maintenance, [id number], 30, USE 1 SPRAY IN BOTH NOSTRILS 2 TIMES A DAY, 163, cm, 08/15/20 14:23:00 EDT, Height,84.8, kg, 06/25/20 20:28:00 EDT, Dry Weight Start Date: 09/07/20 Status: Ordered hydrochlorothiazide 12.5 mg oral tablet 1 tablet = 12.5 mg, By Mouth, Daily, TAKE 1 TABLET BY MOUTH EVERY DAY, # 30 capsule, 2 Refills, Maintenance, 03/22/21 16:20:00 EST, [facility]/pharmacy #[id number], 162.5, cm, 03/14/21 10:31:00 EST, [...] 2 Refills, Maintenance, 03/01/21 12:42:00 EST, Tablet, [facility]/pharmacy #[id number], 155, cm, 02/18/21 14:54:00 EST, Height, 90.9, kg, 02/02/21 5:59:00 EDT, DryWeight Start Date: 03/01/21 Status: Ordered Lantus 100 u/ml subcutaneous solution = 40 units, Subcutaneous Injection, Daily, # 12 mL, 2 Refills, Maintenance, 03/01/21 12:42:00 EST, Solution, [facility]/pharmacy #[id number], increased dose 12/26/19, 155, cm, 02/18/21 14:54:00 EST, Height, 90.9, kg, 02/02/21 5:59:00 EDT, Dry Weight Start Date: 03/01/21 Status: Ordered lidocaine 5% topical film 1 patch, Topically, Daily, For chronic radicular back pain, # 30 patch, 5 Refills, Maintenance, 10/11/20 8:15:00 EDT, [facility]/pharmacy #[id number], 1 patch Topically Daily,Instr:For chronic radicular back pain, 163, cm, 08/15/20 14:23:00 EDT, Height, 84.8, kg,... Start Date: 10/11/20 Status: Ordered lisinopril 20 mg oral tablet 20 mg, 1, tablet, By Mouth, Daily, # 90 tablet, Refills 3, Tot. Refills 3, Maintenance, 04/12/21 13:24:00 EST, Route to Pharmacy Electronically, [facility]/pharmacy #[id number], 162.5, cm, 03/22/21 [...] 0 Refills, Maintenance, 08/15/20 15:59:00 EDT, Capsule, [facility]/pharmacy #[id number], Partial fill upon patient request if the prescription is for a schedule II opioid drug., 163, cm, 08/15/20 14:23:00 EDT, Hetat[place]. Start Date: 08/15/20 Status: Ordered mirabegron 25 mg oral tablet, extended release 1 tablet = 25 mg, By Mouth, Daily, do not crush or chew, # 30 tablet, 11 Refills, Maintenance, 12/31/20 15:58:00 EDT, ER Tablet, [facility]/pharmacy #[id number], Partial [...] 1 Refills, Maintenance, 01/31/21 14:16:00 EDT, Tablet, [facility]., Partial fill upon patient request if the prescription is for a schedule II opioid drCain Start Date: 01/31/21 Status: Ordered omeprazole 40 mg oral enteric coated capsule 1 capsule = 40 mg, By Mouth, Daily, PRN Dyspepsia, # 90 capsule, 0 Refills, Maintenance, 01/11/21 13:46:00 EDT, EC Capsule, [facility]/pharmacy #[id number], 165, cm, 12/31/20 14:56:00 EDT, Height, 87.6, kg, 12/31/20 14:56:00 EDT, Dry Weight Start Date: 01/11/21 Status: Ordered oxyCODONE 15 mg oral tablet 1 tablet = 15 mg, By Mouth, 2 times a day, for 28 days, MASSPAT CHECKED PT ON CONTRACT AT [facility], # 56 tablet, 0 Refills, Acute 05/22/21 8:57:00 EST, 04/24/21 8:57:00 EST, [facility]., MASSPAT CHECKED ; PT ON CONTRACT AT [facility]... Start Date: 04/24/21 Stop Date: 05/22/21 Status: [...] 10/30/20 11:37:00 EDT, [id number], 163, cm, 08/15/20 14:23:00 EDT, Height, 84.8, kg, 06/25/20 20:28:00 EDT... Start Date: 10/30/20 Status: Ordered Spiriva Respimat 60 ACT 2.5 mcg/inh inhalation aerosol 2 puffs, Inhalation, Daily, # 1 each, 11 Refills, Maintenance, 04/05/20 14:17:00 EST, [id number] fill upon patient request if [...] 04/24/21 8:58:00 EST, Route to Pharmacy Electronically, [facility]., 162.5, cm, 03/22/21 14:58:00 EST, Height, 90.9, kg, 02/02/21... 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
--- OUTSIDE RECORDS SUMMARY | 2023-03-25 08:24 | XMS_ITS | Continuity of Care Document ---
Author Name Unknown Organization [facility] Address [address] [place] [id number]- Care Team Providers Care Spinneret Cleaner Name Role Phone Richardson QUIROZ, Leonora Pérez Primary Care Physician [phone] [facility] AC[facility] R [id number] Date(s): 09/28/20 - 10/28/[address] [address]- Attending Physician: Admkevin, Clarence Admitting Physician: Admtr, [id number] Referring Physician: [...] 14:12:00 EST, Powder, Route to Pharmacy Electronically, [id number], [facility]/pharmacy #[id number], 162.56, cm, 03/27/20 11:36:00... Start Date: 04/05/20 Status: Ordered albuterol 0.083% inhalation solution 3 mL = 2.5 mg, Inhalation, Every 4 hours, PRN for wheezing, # 100 each, 2 Refills, Maintenance, 08/15/20 10:22:00 EDT, Solution, [facility]/pharmacy #[id number], 163, cm, 08/09/20 8:45:00 EDT, Height, 84.8, kg, 06/25/20 20:28:00 EDT, Dry Weight Start Date: 08/15/20 Status: Ordered amitriptyline 75 mg oral tablet 1 tablet = 75 mg, By Mouth, Daily at bedtime, # 30 tablet, 5 Refills, Maintenance, 08/16/20 11:58:00 EDT, Tablet, [facility]/pharmacy [...] Maintenance, 06/20/20 13:18:00 EDT, Tablet, [facility]/pharmacy #[id number], 162, cm, 05/24/20 9:01:00 EST, Height, 80, kg, 04/18/20 9:48:00 EST, Dry Weight Start Date: 06/20/20 Status: Ordered clonazePAM 0.5 mg oral tablet TAKE 1 TABLET BY MOUTH TWICE A DAY NEEDED Start Date: 06/02/19 Status: Ordered clotrimazole 1% topical cream 1 application, Topically, 2 times a day, # 30 Gm, 1 Refills, Maintenance, 07/30/20 19:49:00 EDT, Cream, [facility]/pharmacy [...] 03/02/20 11:18:00 EST, Capsule, [facility]/pharmacy #[id number], Partial fill upon patient request. NOT INCREASED DOSE, 163, cm, 12/25/2012:58:00 EDT, Height, 80, kg, 10/29/19 0:29:00 EDT,... Start Date: 03/02/20 Status: Ordered fluticasone 50 mcg/inh nasal spray See Instructions, USE 1 SPRAY IN BOTH NOSTRILS 2 TIMES A DAY, # 16 mL, 1 Refills, Maintenance, [id number], 30, USE 1 SPRAY IN BOTH NOSTRILS 2 TIMES A DAY, 163, cm, 08/15/20 14:23:00 EDT, Height,84.8, kg, 06/25/20 20:28:00 EDT, Dry Weight Start Date: 09/07/20 Status: Ordered hydrochlorothiazide 12.5 mg oral tablet 1 tablet = 12.5 mg, By Mouth, Daily, # 90 tablet, 3 Refills, Maintenance, 01/19/20 10:28:00 EDT, Tablet, [facility]/pharmacy #[id number], 163, cm, 12/26/19 13:58:00 EDT, Height, 80, kg, 10/29/19 0:29:00 EDT, Dry Weight Start Date: 01/19/20 Status: Ordered Januvia 100 mg oral tablet 1 tablet = 100 mg, By Mouth, Daily, # 30 tablet, 2 Refills, Maintenance, 08/27/20 11:00:00 EDT, Tablet, [facility]/pharmacy #[id number], 163, cm, 08/15/20 14:23:00 EDT, Height, 84.8, kg, 06/25/20 20:28:00 EDT, Dry Weight Start Date: 08/27/20 Status: Ordered Lantus 100 u/ml subcutaneous solution = 40 units, Subcutaneous Injection, Daily, # 12 mL, 11 Refills, Maintenance, 05/07/20 13:24:00 EST,Solution, [facility]/pharmacy #[id number], increased dose 12/26/19, 162, cm, 04/21/20 11:33:00 EST, Height, 80, kg, 04/18/20 9:48:00 EST, Dry Weight Start Date: 05/07/20 Status: Ordered lidocaine 5% topical film 1 patch, Topically, Daily, For chronic radicular back pain, # 30 patch, 5 Refills, Maintenance, 10/11/20 8:15:00 EDT, [facility]/pharmacy #[id number], 1 [...] portuguese, # 120 tablet, 2 Refills, Maintenance, 11/01/19 [...] patient request Start Date: 12/07/19 Status: Ordered prazosin 2 mg oral capsule TAKE 1 CAPSULE BY MOUTH EVERYDAY AT BEDTIME Start Date: 08/09/20 Status: Ordered Senna 8.6 mg oral tablet 8.6 mg, 1, tablet, By Mouth, Daily at bedtime, # 100 tablet, Refills 2, Tot. Refills 2, Maintenance, 06/04/20 12:46:00 EST, Route to Pharmacy Electronically, [facility]/pharmacy #[id number], 162, cm, 05/24/20 9:01:00 EST, Height, [...] 11:59:00 EDT, Route to Pharmacy Electronically, [facility]/pharmacy #[id number], 163, cm, 08/15/20 14:23:00 EDT, Height, [...]
--- OUTSIDE RECORDS SUMMARY | 2023-03-25 08:24 | XMS_ITS | Continuity of Care Document ---
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 DRIVER, Leonora Pérez Primary Care Physician [phone] Encounter [facility] Date(s): 02/25/22 - 03/27/22 [facility] [address] [place] [address]- Allergies, Adverse Reactions, Alerts Substance Reaction Severity Status morphine Active gabapentin swelling Active Lyrica dysphagia Active SEROquel body swelling - all over Act tony MetFORMIN Hydrochloride ER black tarry stool Active Immunizations Given and Recorded Vaccine Date Status Refusal Reason [id number] 12y+ bivalent booster vax 01/30/22 Given influenza virus vaccine, inactivated 01/30/22 Give n influenza virus vaccine, inactivated 02/04/21 Give n influenza virus vaccine, inactivated 1 04/19/20 Gi tonio influenza virus vaccine, inactivated 03/12/19 Give n influenza virus vaccine, inactivated 01/19/18 Give n influenza virus vaccine, inactivated 02/16/17 Give n pneumococcal 20-valent conjugate vaccine 12/26/21 Given SARS-CoV-2 mRNA ([id number]) vax 05/14/21 Given SARS-CoV-2 (COVID-19) mRNA BNT-162b2 vac 2 10/19/20 Given SARS-CoV-2 (COVID-19) mRNA BNT-162b2 vac 09/28/20 Given pneumococcal 23-valent vaccine 03/12/19 Given tetanus/diphtheria/pertussis, acel(Tdap) 07/29/13 Given 1Early/Late Reason: Early/Late Reason: Patient Not Available/Off Unit 2? Unknown: [facility]end to [facility]. [facility]. Medications acetaminophen 325 mg oral tablet 650 mg, 2, tablet, By Mouth, 3 times a day, # 100 tablet, Refills 1, Tot. Refills 1, Maintenance, 10/22/21 9:23:00 EDT, Route to Pharmacy Electronically, [facility], Partial fill uponpatient request if [...] 08/30/21 12:06:00 EDT, Route to Pharmacy Electronically, [facility], Partial fill upon patient request if the prescription is for a sche... Start Date: 08/30/21 Status: Ordered amLODIPine 5 mg oral tablet 5 mg, 1, tablet, By Mouth, Daily, # 90 tablet, Refills 0, Tot. Refills 0, Maintenance, 01/30/22 10:50:00 EDT, Route to Pharmacy Electronically, [facility], Partial fill upon patient request if the prescription is for a schedule II opio... Start Date: 01/30/22 Status: Ordered cetirizine 10 mg oral tablet 1 tablet = 10 mg, By Mouth, Daily, # 30 tablet, 5 Refills, Maintenance, 08/28/21 9:07:00 EDT, Tablet, [facility], 162, cm, 08/22/21 9:46:00 EDT, Height, 86, kg, 07/23/21 0:58:00 EDT, Dry Weight Start Date: 08/28/21 Status: Ordered cholecalciferol 5000 intl units oral capsule 1 capsule = 125 mcg, By Mouth, Daily, with food, # 100 capsule, 2 Refills, Maintenance, 02/11/21 11:17:00 EST, Capsule, [facility]/pharmacy #[id number], Partial fill upon patient [...] 11 Refills, Maintenance, 02/21/22 10:35:00 EST, [facility] Partial fill upon patient request if the prescription is for a schedule II opioid drug., 2 tablet By... Start Date: 02/21/22 Status: Ordered duloxetine 60 mg oral enteric coated capsule 2 capsule = 120 mg, By Mouth, Daily, # 60 capsule, 5 Refills, Maintenance, 11/14/21 11:41:00 EDT, [facility]ule[facility] Partial fill upon patient request. NOT INCREASED DOSE. Please cancel all other Duloxetine scripts, 162, cm, 11/14/21... Start Date: 11/14/21 Status: Ordered empagliflozin 10 mg oral tablet 1 tablet = 10 mg, By Mouth, Daily in AM, # 30 tablet, 5 Refills, Maintenance, 02/20/22 12:04:00 EST, Tablet, [facility] Partial fill upon patient request if the prescription is for aschedule II opioid drug., 163, cm, 02/11/22 19:19:0... Start Date: 02/20/22 Status: Ordered fluticasone 50 mcg/inh nasal spray See Instructions, USE 1 SPRAY IN BOTH NOSTRILS 2 TIMES A DAY, # 16 mL, 1 Refills, 07/08/21 9:44:00 EDT, [facility] 30, USE 1 SPRAY IN BOTH NOSTRILS 2 TIMES A DAY, 162.5, cm, :49:00 EDT, Height, 85.8, kg, 06/04/21 10:03:00 ES... Start Date: 07/08/21 Status: Ordered ibuprofen 800 mg oral tablet 1, tablet, By Mouth, 3 times a day, PRN, # 90 tablet, Refills 1, Maintenance, NEEDED FOR PAIN, 03/05/22 15:56:00 EST, Route to Pharmacy Electronically, [facility], 163, cm, 02/11/22 19:19:00 EST, Height, 83, kg, 02/11/22 19:19:00 EST, Dry... Start Date: 03/05/22 Status: Ordered Januvia 100 mg oral tablet 1 tablet = 100 mg, By Mouth, Daily, # 90 tablet, 3 Refills, Maintenance, 06/18/21 21:04:00 EDT, Tablet, [facility]., 162.5, cm, 06/17/21 13:04:00 EDT, Height, 85.8, kg, 06/04/21 10:03:00 EST, Dry Weight Start Date: 06/18/21 Status: Ordered Lantus 100 u/ml subcutaneous solution = 50 units, Subcutaneous Injection, Daily, # 15 mL, 2 Refills, Maintenance, 01/06/22 12:07:00 EDT, Solution, [facility], ;, 163, cm, 01/03/22 11:20:00 EDT, Height, 84, kg, 01/02/22 19:36:00 EDT, Dry Weight Start Date: 01/06/22 Status: Ordered lidocaine 5% topical film 1 patch, Topically, Daily, PRN Pain , Mild, remove after 12 hours, # 13 each, 5 Refills, Maintenance, 12/26/21 10:37:00 EDT, Film, [facility], Partial fill upon patient request if theprescription is for a schedule II opioid drug., 1 p... Start Date: 12/26/21 Status: Ordered lisinopril 20 mg oral tablet 20 mg, 1, tablet, By Mouth, Daily, # 90 tablet, Refills 3, Tot. Refills 3, Maintenance, 08/28/21 9:07:00 EDT, Route to Pharmacy Electronically, [facility], 162, cm, 08/22/21 9:46:00 EDT, Height, 86, kg, 07/23/21 0:58:00 EDT, Dry Weight Start Date: 08/28/21 Status: Ordered Melatonin 10 mg oral tablet 1 tablet = 10 mg, By Mouth, Daily at bedtime, # 30 each, 5 Refills, Maintenance, 11/14/21 11:42:00 EDT, [facility], Partial fill upon [...] PRN NEEDED, # 30 capsule, 2 Refills, [facility], 162, cm, 09/06/21 13:04:00 EDT, Height, 86, kg, 07/23/21 0:58:00 EDT, Dry Weight Start Date: 10/02/21 Status: Ordered oxyCODONE 15 mg oral tablet 1 tablet = 15 mg, By Mouth, 3 times a day, for 28 days, On contract at [facility]., # 84 tablet, 0 Refills, Acute 04/23/22 14:02:00 EST, 03/26/22 14:02:00 EST, [facility], Partial fill uponpatient request if the prescription is for a schedu... Start Date: 03/26/22 Stop Date: 04/23/22 Status: Ordered prazosin 2 mg oral capsule 0 Refills, Maintenance, 02/06/22 16:42:00 EDT, Partial fill upon patient request if the prescription is for a schedule II opioid drug. Start Date: 02/06/22 Status: Ordered Senna 8.6 mg oral tablet 8.6 mg, 1, tablet, By Mouth, Daily at bedtime, # 100 tablet, Refills 11, Tot. Refills 11, Maintenance, 07/08/21 9:39:00 EDT, Route to Pharmacy Electronically, [facility], 162.5, cm, 07/08/21 8:49:00 EDT, Height, 85.8, kg, 06/04/21 10:0... Start Date: 07/08/21 Status: Ordered tiZANidine 4 mg oral capsule 1 capsule, By Mouth, 3 times a day, # 90 capsule, 0 Refills, Maintenance, 03/06/22 16:55:00 EST, [facility], 163, cm, 02/11/22 19:19:00 EST, Height, 83, kg, 02/11/22 19:19:00 EST, Dry Weight Start Date: 03/06/22 Status: Ordered Trulicity Pen 3 mg/0.5 mL subcutaneous solution See Instructions, INJECT 0.5 ML SUBCUTANEOUSLY EVERY WEEK. 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 Fabian [phone] Confirmed Active Syncope and collapse Confirmed Active [...] Team Personnel Name: Sindy Bernal RN Position: [facility] RN Member Role: Primary Care Nurse Name: Graciela Thrasher RN Position: [facility] SN RN Member Role: Primary Care Nurse Name: Stevie Angel RN Position: [facility] RN Member Role: Primary Care Nurse Name: Leonora Bai NP Position: [facility] PCO Associate Professional Member Role: PCP Address: Address: [address] [place] [id number] Name: Keily Ortega RN Position: [facility] RN Member Role: Primary Care Nurse Name: Graciela Munroe RN Position: [facility] RN Member Role: Primary Care Nurse Name: Nichole Pichardo RN Position: [facility] RN Member Role: Primary Care Nurse Name: Melvin Whitfield RN Position: [facility] PCO RN Member Role: Primary Care Nurse Name: Phuong Berkowitz RN Position: [facility] RN Member Role: Primary Care Nurse Name: Joselyn Rain RN Position: [facility] Dealership Manager Member Role: Primary Care Nurse Care Team Related Persons Name: IRA ROMERO Address: home [address] [place] [address] Name: JHON LARSON Address: home [address] [place] [address] Name: JHON LARSON Address: home [address] [place] [address] Name: GALO CATALAN Name: NANCY CATALAN Address: home [address] [place] [address]
--- OUTSIDE RECORDS SUMMARY | 2023-03-25 08:24 | XMS_ITS | Continuity of Care Document ---
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 Start Date: 04/05/20 Status: Ordered albuterol 0.083% inhalation solution 3 mL = 2.5 mg, Inhalation, Every 4 hours, PRN for wheezing, # 100 each, 5 Refills, Maintenance, 06/27/19 14:32:00 EDT, Solution, [facility]/pharmacy #[id number], 160, cm, 06/01/19 14:08:00 EST, Height, 88.9, kg, 05/23/19 22:09:00 EST, Dry Weight Start Date: 06/27/19 Status: Ordered amitriptyline 50 mg oral tablet 1 tablet = 50 mg, By Mouth, Daily at bedtime, # 30 tablet, 5 Refills, Maintenance, 12/30/19 18:21:00 EDT, Tablet, [facility]/pharmacy #[id number], 163, cm, 12/26/19 13:58:00 EDT, Height, 80, kg, 10/29/19 0:29:00 EDT, Dry Weight Start Date: 12/30/19 Status: Ordered atorvastatin 20 mg oral tablet 1 tablet = 20 mg, By Mouth, Daily, # 90 tablet, 3 Refills, Maintenance, 04/05/20 14:11:00 EST, Tablet, [facility]/pharmacy #[id number], Partial fill upon patient request if the prescription is for a schedule II opioid drug., 162.56, cm, 03/27/20 11:36:00 EST, Heig... Start Date: 04/05/20 Status: Ordered capsaicin 0.025% topical cream 1 application, Topically, 3 times a day, # 45 Gm, 3 Refills, Maintenance, 11/01/19 15:25:00 EDT, Cream, [facility]/pharmacy #[id number], 1 application Topically 3 times a day, 163, cm, 11/01/19 14:40:00 EDT, Height, 80, kg, 10/29/19 0:29:00 EDT, Dry Weight Start Date: 11/01/19 Status: Ordered cetirizine 10 mg oral tablet 1 tablet = 10 mg, By Mouth, Daily, # 30 tablet, 5 Refills, Maintenance, 12/13/19 18:32:00 EDT, Tablet, [facility]/pharmacy #[id number], 163, cm, 12/13/19 15:57:00 EDT, Height, 80, kg, 10/29/19 0:29:00 EDT, Dry Weight Start Date: 12/13/19 Status: Ordered clonazePAM 0.5 mg oral tablet TAKE 1 TABLET BY MOUTH TWICE A DAY NEEDED Start Date: 06/02/19 Status: Ordered clotrimazole 1% topical cream 1 application, Topically, 2 times a day, # 30 Gm, 1 Refills, Maintenance, 02/03/20 13:47:00 EDT, Cream, [facility]/pharmacy #[id number], 1 application Topically 2 [...] patch, 5 Refills, Maintenance, 03/09/20 8:53:00 EST, [facility]/pharmacy #[id number], 1 patch Topically Daily,Instr:For chronic radicular back pain, 163, cm, 12/26/19 13:58:00 EDT, Height, 80, kg, 07... Start Date: 03/09/20 Status: Ordered lisinopril 20 mg oral tablet 20 mg, 1, tablet, By Mouth, Daily, # 30 tablet, Refills 11, Tot. Refills 11, Maintenance, 05/07/20 13:30:00 EST, Route to Pharmacy Electronically, [facility]/pharmacy #[id number], 162, cm, 04/21/20 11:33:00 EST, Height, 80, kg, 04/18/20 9:48:00 EST, Dry Weight Start Date: 05/07/20 Status: Ordered Mapap 325 mg oral tablet 2 tablet = 650 mg, By Mouth, Every 4 hours, PRN for pain, not to exceed 3000 mg/day. instructions in estonian, # 120 tablet, 2 Refills, Maintenance, 11/01/19 15:24:00 EDT, Tablet, [facility]/pharmacy #[id number], 163, cm, 11/01/19 14:40:00 [...] 2 Refills, Maintenance, 04/05/20 14:08:00 EST, Tablet, [facility]/pharmacy #[id number], Partial fill upon patient request if the prescription is for a schedule II opioid drug., 162.56, cm, ... Start Date: 04/05/20 Status: Ordered omeprazole 20 mg oral enteric coated capsule 1 capsule = 20 mg, By Mouth, Daily, Use as little as possible to control symptoms., # 30 capsule, 2Refills, Maintenance, 10/06/19 7:45:00 EDT, EC Capsule, [facility]/pharmacy #[id number], cancel Ranitidine, 160,cm, 09/28/19 8:58:00 [...] Acute 05/31/20 17:54:00 EST, 05/03/20 17:54:00 EST, [facility]/pharmacy #[id number], Partial fill upon patient request if the prescription is for a schedule II opioid drug. Client on c... Start Date: 05/03/20 Stop Date: 05/31/20 Status: Ordered Senna 8.6 mg oral tablet 8.6 mg, 1, tablet, By Mouth, Daily at bedtime, # 100 tablet, Refills 2, Tot. Refills 2, Maintenance, 06/10/19 16:12:00 EST, Route to Pharmacy Electronically, [facility]/pharmacy #[id number], 160, cm, 06/01/19 14:08:00 EST, Height, 88.9, kg, 05/23/19 22:09:00 EST,... Start Date: 06/10/19 Status: Ordered Soma 350 mg oral tablet 350 mg, 1, tablet, By Mouth, 3 times a day, # 9 tablet, Refills 0, Tot. Refills 0, Maintenance, 05/04/20 15:46:00 EST, Route to Pharmacy Electronically, [facility]/pharmacy #[id number], Partial fill upon patient request if the prescription is for a schedule II opi... Start Date: 05/04/20 Status: Ordered Spiriva Respimat 60 ACT 2.5 mcg/inh inhalation aerosol 2 puffs, Inhalation, Daily, # 1 each, 11 Refills, Maintenance, 04/05/20 14:17:00 EST, [facility]/pharmacy #[id number], Partial fill upon [...] 05/03/20 11:26:00 EST, Route to Pharmacy Electronically, [facility]/pharmacy #[id number], 162, cm, 04/21/20 11:33:00 [...]
--- OUTSIDE RECORDS SUMMARY | 2023-03-25 08:24 | XMS_ITS | Continuity of Care Document ---
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 Name Role Phone Richardson QUIROZ, Leonora Pérez Primary Care Physician [place] [facility] [place]): 07/22[facility]21 - 07/25/21 [facility] [address] [place] [id number] Encounter Diagnosis Back pain(Final) - 07/22/21 Discharge Disposition: A-Transfer SNF Attending Physician: Jus GERARDO, Michael Admitting Physician: Anais Briseno MD Referring Physician: Not on Staff, Referring MD Allergies, Adverse Reactions, Alerts Substance Reaction Severity Status morphine Active gabapentin swelling Active Lyrica dysphagia Active SEROquel body swelling - all over Act tony MetFORMIN Hydrochloride ER black tarry stool Active Immunizations Given and Recorded Vaccine Date Status Refusal Reason SARS-CoV-2 mRNA ([id number]) vax 05/14/21 Given influenza virus vaccine, inactivated [...] Unknown: Resend to [facility]. Resend to [facility]. Medications acetaminophen 325 mg oral tablet 650 mg, 2, tablet, By Mouth, 3 times a day, # 100 tablet, Refills 1, Tot. Refills 1, Maintenance, 07/18/21 15:15:00 EDT, Route to Pharmacy Electronically, [facility], Partial fill upon patient request if the prescription is for a sched... Start Date: 07/18/21 Status: Ordered Advair Diskus 500 mcg-50 mcg inhalation powder 1, puffs, Inhalation, 2 times a day, [id number], # 1 each, Refills 5, Tot. Refills 5, Maintenance, 05/15/21 9:20:00 EST, Powder, Route to Pharmacy Electronically, [id number], [facility]., 162.5, cm, 05/10/21 14:47... Start Date: 05/15/21 Status: Ordered albuterol 0.083% inhalation solution 3 mL = 2.5 mg, Inhalation, Every 4 hours, PRN for wheezing, # 100 each, 2 Refills, Maintenance, 05/15/21 9:30:00 EST, Solution, [facility]., 162.5, cm, 05/10/21 14:47:00 EST, Height, 90.9, kg, 02/02/21 5:59:00 EDT, Dry Weight Start Date: 05/15/21 Status: Ordered amitriptyline 75 mg oral tablet 1 tablet = 75 mg, By Mouth, Daily at bedtime, # 90 tablet, 1 Refills, Maintenance, 05/07/21 10:21:00 EST, Tablet, [facility], Partial fill upon patient request if the prescription is for a schedule II opioid drug., 162.5, cm, 03/22/21... Start Date: 05/07/21 Status: Ordered atorvastatin 40 mg oral tablet 1 tablet = 40 mg, By Mouth, Daily, # 90 tablet, 3 Refills, Maintenance, 07/08/21 9:47:00 EDT, Tablet, [facility], Partial fill upon patient request if the prescription is for a schedule II opioid drug., 162.5, cm, 07/08/21 8:49:00 EDT,... Start Date: 07/08/21 Status: Ordered cetirizine 10 mg oral tablet 1 tablet = 10 mg, By Mouth, Daily, # 30 tablet, 5 Refills, Maintenance, 07/08/21 9:44:00 EDT, Tablet, [facility]., 162.5, cm, 07/08/21 8:49:00 EDT, Height, 85.8, kg, 06/04/21 10:03:00 EST, Dry Weight Start Date: 07/08/21 Status: Ordered cholecalciferol 5000 intl units oral capsule 1 capsule = 125 mcg, By Mouth, Daily, with food, # 100 capsule, 2 Refills, Maintenance, 02/11/21 11:17:00 EST, Capsule, [facility]/pharmacy #[id number], Partial fill upon patient [...] 1 Refills, Maintenance, 07/08/21 9:45:00 EDT, Cream, [facility]., PLEASE CANCEL ESTRADIOL VAGINAL CREAM, 1 [...] 5 Refills, Maintenance, 02/18/21 15:09:00 EST, Capsule, [facility]/pharmacy #[id number], Partial fill upon patient request. NOT INCREASED DOSE, 155, cm, 02/18/2114:54:00 EST, Height, 90.9, kg, 02/02/21 5:59:00 ED... Start Date: 02/18/21 Status: Ordered empagliflozin 10 mg oral tablet 1 tablet = 10 mg, By Mouth, Daily in AM, # 30 tablet, 5 Refills, Maintenance, 07/08/21 9:43:00 EDT,Tablet, [facility]., Partial fill upon patient request if the prescription is for a schedule II opioid drug., 162.5, cm, 07/08/21 8:49:0... Start Date: 07/08/21 Status: Ordered fluticasone 50 mcg/inh nasal spray See Instructions, USE 1 SPRAY IN BOTH NOSTRILS 2 TIMES A DAY, # 16 mL, 1 Refills, 07/08/21 9:44:00 EDT, [facility] 30, USE 1 SPRAY IN BOTH NOSTRILS 2 TIMES A DAY, 162.5, cm, 228:49:00 EDT, Height, 85.8, kg, 06/04/21 10:03:00 ES... Start Date: 07/08/21 Status: Ordered hydrochlorothiazide 12.5 mg oral tablet 1 tablet = 12.5 mg, By Mouth, Daily, TAKE 1 TABLET BY MOUTH EVERY DAY, # 30 capsule, 2 Refills, Maintenance, 05/15/21 9:20:00 EST, [facility] 162.5, cm, 05/10/21 14:47:00 EST, Height, 90.9, [...] Refills, Maintenance, 06/18/21 21:04:00 EDT, Tablet, [facility], 162.5, cm, 06/17/21 13:04:00 EDT, Height, 85.8, kg, 06/04/21 10:03:00 EST, Dry Weight Start Date: 06/18/21 Status: Ordered Lantus 100 u/ml subcutaneous solution = 50 units, Subcutaneous Injection, Daily, # 15 mL, 5 Refills, Maintenance, 07/08/21 9:38:00 EDT, Solution, [facility], ;, 162.5, cm, 07/08/21 8:49:00 EDT, Height, 85.8, kg, 06/04/21 10:03:00 EST, Dry Weight Start Date: 07/08/21 Status: Ordered lisinopril 20 mg oral tablet 20 mg, Tablet, By Mouth, 07/25/21 9:00:00 EDT Start Date: 07/25/21 Stop Date: 07/25/21 Status: Completed lisinopril 20 mg oral tablet 20 mg, 1, tablet, By Mouth, Daily, # 90 tablet, Refills 3, Tot. Refills 3, Maintenance, 04/12/21 13:24:00 EST, Route to Pharmacy Electronically, [facility]/pharmacy #[id number], 162.5, cm, 03/22/21 14:58:00 EST, Height, 90.9, kg, 02/02/21 5:59:00 EDT, Dry Weight Start Date: 04/12/21 Status: Ordered meloxicam 7.5 mg oral tablet 1 tablet = 7.5 mg, By Mouth, Daily, # 30 tablet, 1 Refills, Maintenance, 06/24/21 16:30:00 EDT, Tablet, [facility]., Partial fill upon patient request [...] Maintenance, 05/09/21 10:45:00 EST, EC Capsule, [facility]., 162.5, cm, 03/22/21 14:58:00 EST, Height, 90.9,kg, 02/02/21 5:59:00 EDT, Dry Weight Start Date: 05/09/21 Status: Ordered oxyCODONE 5 mg oral tablet 15 mg, Tablet, By Mouth, 07/25/21 9:00:00 EDT Start Date: 07/25/21 Stop Date: 07/25/21 Status: Completed oxyCODONE 5 mg oral tablet 15 mg, [...] 07/08/21 9:39:00 EDT, Route to Pharmacy Electronically, [facility], 162.5, cm, 07/08/21 8:49:00 EDT, Height, 85.8, kg, 06/04/21 10:0... Start Date: 07/08/21 Status: Ordered tiZANidine 4 mg oral tablet 4 mg, 1, tablet, By Mouth, Every 8 hours, PRN, # 84 tablet, Refills 1, Tot. Refills 1, Maintenance,Spasm, 06/24/21 19:16:00 EDT, Route to Pharmacy Electronically, [facility], 162.5, cm, 06/24/21 15:35:00 EDT, Height, 85.8, kg, 2... Start Date: 06/24/21 Stop Date: 08/19/21 Status: Ordered topiramate 25 mg oral tablet 2 tablet = 50 mg, By Mouth, Daily, For nerve pain and headaches, # 60 tablet, 1 Refills, Maintenance, 07/01/21 15:05:00 EDT, Tablet, [facility], Partial fill upon patient request if the prescription is for a schedule II opioid drug., 1... 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 [phone](Confirmed) Active Syncope and collapse(Confirmed) Active Tobacco dependence(Confirmed) Active DM2 (diabetes mellitus, type 2)(Confirmed) 04/03/17 Active Incontinence of urine(Confirmed) 3 Active 1seen on MRI 10/2016, rec repeat imaging in October [address] [place] 09[place]18/[place] [facility] MRI 3urge and stress Vital Signs Most recent to oldest [Reference Range]: 1 2 3 Height 162 cm (07/25/21 7:47 AM) 162 cm (07/24/21 4:50 PM) 162 cm (07/24/21 12:05 PM) Weight 86 kg (07/22/21 9:08 PM) Oxygen Saturation [94-100 %] 96 % (07/25/21 7:47 AM) 97 % (07/24/21 11:00 PM) 95 % (07/24/21 7:00 PM) Pulse Rate [55-90 bpm] 77 bpm (07/25/21 7:47 AM) 72 bpm (07/24/21 11:00 PM) 72 bpm (07/24/21 7:00 PM) Body Mass Index [18.5-24.99] 32.77 *>HHI* (07/22/21 9:08 PM) Blood Pressure [90-138/55-84 mm Hg] 140/4mm Hg *H* (07/25/21 8:19 AM) 141/75mm Hg *H* (07/25/21 7:47 AM) 140/92mm Hg *H* (07/24/21 11:00 PM) Respiratory Rate [16-30 br/min] 18 br/min (07/25/21 10:19 AM) 18 br/min (07/25/21 10:19 AM) 18 br/min (07/25/21 8:19 AM) Temperature [96.8-100.4 DegF] 98.1 DegF (07/25/21 7:47 AM) 98.3 DegF (07/24/21 11:00 PM) 98.4 DegF (07/24/21 7:00 PM) Mode of Delivery (Oxygen) Room air (07/25/21 7:47 AM) Room air (07/24/21 11:00 PM) Room air (07/24/21 7:00 PM) Blood pressure sites Arm, right (07/25/21 7:47 AM) Arm, left (07/24/21 11:00 PM) Arm, left (07/24/21 7:00 PM) Temperature Route Oral (07/25/21 7:47 AM) Oral (07/24/21 11:00 PM) Oral (07/24/21 7:00 PM) Dry Weight 86 kg (07/22/21 9:08 PM) Social History Social History Type Response Smoking Status Current every day kaitlin valle; Type: Cigarettes; Tobacco use times per day: 1/2 ppd; entered on: 12/24/17 Sex
--- OUTSIDE RECORDS SUMMARY | 2023-03-25 08:24 | XMS_ITS | Continuity of Care Document ---
Author Name Unknown Organization [facility] Address [address] [place] [address]- Care Team Providers Care Retirement Actuary Name Role Phone Richardson SALES CONSULTING DIRECTOR, Leonora Pérez Primary Care Physician [facility]counter [facility] Date(s): 04/23/21 - 05/23/21 [facility] [address] [place] [address]- Allergies, Adverse Reactions, Alerts Substance Reaction Severity Status morphine Active gabapentin swelling Active MetFORMIN Hydrochloride ER black tarry stool Active Lyrica dysphagia Active SEROquel body swelling - all over Act tony Immunizations Given and Recorded Vaccine Date Status Refusal Reason SARS-CoV-2 mRNA ([id number]) vax 05/14/21 Given influenza virus vaccine, inactivated [...] 01/16/21 19:30:00 EDT, [id number] Partial fill upon patient request if the prescription is for a schedule II o... Start Date: 01/16/21 Status: Ordered Advair Diskus 500 mcg-50 mcg inhalation powder 1, puffs, Inhalation, 2 times a day, j45.909, # 1 each, Refills 5, Tot. Refills 5, Maintenance, 05/15/21 9:20:00 EST, Powder, Route to Pharmacy Electronically, [id number], [facility], 162.5, cm, 05/10/21 14:47... Start Date: 05/15/21 Status: Ordered albuterol 0.083% inhalation solution 3 mL = 2.5 mg, Inhalation, Every 4 hours, PRN for wheezing, # 100 each, 2 Refills, Maintenance, 05/15/21 9:30:00 EST, Solution, [facility], 162.5, cm, 05/10/21 14:47:00 EST, Height, 90.9, kg, 02/02/21 5:59:00 EDT, Dry Weight Start Date: 05/15/21 Status: Ordered amitriptyline 75 mg oral tablet 1 tablet = 75 mg, By Mouth, Daily at bedtime, # 90 tablet, 1 Refills, Maintenance, 05/07/21 10:21:00 EST, Tablet, [facility], Partial fill upon patient request if the prescription is for a schedule II opioid drug., 162.5, cm, 03/22/21... Start Date: 05/07/21 Status: Ordered atorvastatin 20 mg oral tablet 3 tablet = 60 mg, By Mouth, Daily, # 90 tablet, 3 Refills, Maintenance, 04/05/20 14:11:00 EST, Tablet, [id number] Partial fill upon patient request if the prescription is for a schedule II opioid drug., 162.56, cm, 03/27/20 11:36:00 EST, [place]... Start Date: 04/05/20 Status: Ordered capsaicin 0.025% topical cream 1 application, Topically, 3 times a day, # 45 Gm, 3 Refills, Maintenance, 11/01/19 15:25:00 EDT, Cream, [facility]/pharmacy #[id number], 1 application Topically 3 times a day, 163, cm, 11/01/19 14:40:00 EDT, Height, 80, kg, 10/29/19 0:29:00 EDT, Dry Weight Start Date: 11/01/19 Status: Ordered cetirizine 10 mg oral tablet 1 tablet = 10 mg, By Mouth, Daily, # 30 tablet, 5 Refills, Maintenance, 06/20/20 13:18:00 EDT, Tablet, [facility]/pharmacy #[id number], 162, cm, 05/24/20 9:01:00 EST, Height, 80, kg, 04/18/20 9:48:00 EST, Dry Weight Start Date: 06/20/20 Status: Ordered cholecalciferol 5000 intl units oral capsule 1 capsule = 125 mcg, By Mouth, Daily, with food, # 100 capsule, 2 Refills, Maintenance, 02/11/21 11:17:00 EST, Capsule, [facility]/pharmacy #[id number], Partial fill upon patient request if [...] Refills, Maintenance, 12/05/20 12:42:00 EDT, Cream, [facility]/pharmacy #[id number], 1 application Topically 2 times a [...] Refills, Maintenance, 02/18/21 15:09:00 EST, Capsule, [facility]/pharmacy #[id number], Partial fill upon patient request. NOT [...] # 16 mL, 1 Refills, Maintenance, [id number], 30, USE 1 SPRAY IN BOTH NOSTRILS [...] capsule, 2 Refills, Maintenance, 05/15/21 9:20:00 EST, [facility] 162.5, cm, 05/10/21 14:47:00 EST, Height, [...] 2 Refills, Maintenance, 03/01/21 12:42:00 EST, Tablet, [facility]/pharmacy #[id number], 155, cm, 02/18/21 14:54:00 EST, Height, 90.9, kg, 02/02/21 5:59:00 EDT, DryWeight Start Date: 03/01/21 Status: Ordered Lantus 100 u/ml subcutaneous solution = 40 units, Subcutaneous Injection, Daily, # 12 mL, 2 Refills, Maintenance, 03/01/21 12:42:00 EST, Solution, [facility]/pharmacy #[id number], increased dose 12/26/19, 155, cm, 02/18/21 14:54:00 EST, Height, 90.9, kg, 02/02/21 5:59:00 EDT, Dry Weight Start Date: 03/01/21 Status: Ordered lidocaine 5% topical film 1 patch, Topically, Daily, For chronic radicular back pain, # 30 patch, 5 Refills, Maintenance, 10/11/20 8:15:00 EDT, [facility]/pharmacy #[id number], 1 patch Topically Daily,Instr:For chronic radicular back pain, 163, cm, 08/15/20 14:23:00 EDT, Height, 84.8, kg,... Start Date: 10/11/20 Status: Ordered lisinopril 20 mg oral tablet 20 mg, 1, tablet, By Mouth, Daily, # 90 tablet, Refills 3, Tot. Refills 3, Maintenance, 04/12/21 13:24:00 EST, Route to Pharmacy Electronically, [facility]/pharmacy #[id number], 162.5, cm, 03/22/21 14:58:00 EST, Height, [...] 0 Refills, Maintenance, 08/15/20 15:59:00 EDT, Capsule, [facility]/pharmacy #[id number], Partial fill upon patient request if the prescription is for a schedule II opioid drug., 163, cm, 08/15/20 14:23:00 EDT, [place]... Start Date: 08/15/20 Status: Ordered mirabegron 25 mg oral tablet, extended release 1 tablet = 25 mg, By Mouth, Daily, do not crush or chew, # 30 tablet, 11 Refills, Maintenance, 12/31/20 15:58:00 EDT, ER Tablet, [facility]/pharmacy #[id number], Partial fill upon patient request if [...] 1 Refills, Maintenance, 05/17/21 9:57:00 EST, Tablet, [facility], Partial fill upon patient request if the prescription is fora schedule II opioid drug., 162.5, cm, 05/17/21 9:2... Start Date: 05/17/21 Status: Ordered omeprazole 40 mg oral enteric coated capsule 1 capsule = 40 mg, By Mouth, Daily, PRN Dyspepsia, # 90 capsule, 0 Refills, Maintenance, 05/09/21 10:45:00 EST, EC Capsule, [facility], 162.5, cm, 03/22/21 14:58:00 EST, Height, 90.9,kg, 02/02/21 5:59:00 EDT, Dry Weight Start Date: 05/09/21 Status: Ordered oxyCODONE 15 mg oral tablet 1 tablet = 15 mg, By Mouth, 3 times a day, for 28 days, MASSPAT CHECKED PT ON CONTRACT AT [facility], # 84 tablet, 0 Refills, Acute 06/14/21 10:00:00 EST, 05/17/21 10:00:00 EST, [facility], Increase to TID 05/10/21, please request... Start [...] 11:37:00 EDT, Route to Pharmacy Electronically, [facility]/pharmacy #[id number], 163, cm, 08/15/20 14:23:00 EDT, Height, 84.8, kg, 06/25/20 20:28:00 EDT... Start Date: 10/30/20 Status: Ordered Spiriva Respimat 60 ACT 2.5 mcg/inh inhalation aerosol 2 puffs, Inhalation, Daily, # 1 each, 11 Refills, Maintenance, 04/05/20 14:17:00 EST, [facility]/pharmacy #[id number], Partial fill upon patient request if [...] 04/24/21 8:58:00 EST, Route to Pharmacy Electronically, [facility]., 162.5, cm, 03/22/21 14:58:00 EST, Height, 90.9, kg, 02/02/21... 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
--- OUTSIDE RECORDS SUMMARY | 2023-03-25 08:24 | XMS_ITS | Continuity of Care Document ---
Author Name Unknown Organization [facility] Address [address] [place] [address]- Care Team Providers Care Maltster Name Role Phone Richardson QUIROZ, Leonora Pérez Primary Care Physician [facility]counter [facility] Date(s): 06/18/20 - 07/18/20 [facility] [address] [place] [address]- Allergies, Adverse Reactions, Alerts Substance Reaction Severity [...] 14:12:00 EST, Powder, Route to Pharmacy Electronically, [id number], [facility]/pharmacy #[id number], 162.56, cm, 03/27/20 11:36:00... Start Date: 04/05/20 Status: Ordered albuterol 0.083% inhalation solution 3 mL = 2.5 mg, Inhalation, Every 4 hours, PRN for wheezing, # 100 each, 5 Refills, Maintenance, 06/27/19 14:32:00 EDT, Solution, [facility]/pharmacy #[id number], 160, cm, 06/01/19 14:08:00 EST, Height, 88.9, kg, 05/23/19 22:09:00 EST, Dry Weight Start Date: 06/27/19 Status: Ordered amitriptyline 50 mg oral tablet 1 tablet = 50 mg, By Mouth, Daily at bedtime, # 30 tablet, 5 Refills, Maintenance, 12/30/19 18:21:00 EDT, Tablet, [facility]/pharmacy #[id number], 163, cm, 12/26/19 13:58:00 EDT, Height, 80, kg, 10/29/19 0:29:00 EDT, Dry Weight Start Date: 12/30/19 Status: Ordered atorvastatin 20 mg oral tablet 1 tablet = 20 mg, By Mouth, Daily, # 90 tablet, 3 Refills, Maintenance, 04/05/20 14:11:00 EST, Tablet, [facility]/pharmacy #[id number], Partial fill upon patient request if the prescription is for a schedule II opioid drug., 162.56, cm, 03/27/20 11:36:00 EST, Heig... Start Date: 04/05/20 Status: Ordered capsaicin 0.025% topical cream 1 application, Topically, 3 times a day, # 45 Gm, 3 Refills, Maintenance, 11/01/19 15:25:00 EDT, Cream, [facility]/pharmacy #[id number], 1 application Topically 3 times a day, 163, cm, 11/01/19 14:40:00 EDT, Height, 80, kg, 10/29/19 0:29:00 EDT, Dry Weight Start Date: 11/01/19 Status: Ordered cetirizine 10 mg oral tablet 1 tablet = 10 mg, By Mouth, Daily, # 30 tablet, 5 Refills, Maintenance, 06/20/20 13:18:00 EDT, Tablet, [facility]/pharmacy #[id number], 162, cm, 05/24/20 9:01:00 EST, Height, 80, kg, 04/18/20 9:48:00 EST, Dry Weight Start Date: 06/20/20 Status: Ordered clonazePAM 0.5 mg oral tablet TAKE 1 TABLET BY MOUTH TWICE A DAY NEEDED Start Date: 2/27/20 Status: Ordered clotrimazole 1% topical cream 1 [...] 5 Refills, Maintenance, 03/02/20 11:18:00 EST, Capsule, [facility]/pharmacy #[id number], Partial fill upon patient [...] mL, 11 Refills, Maintenance, 05/07/20 13:24:00 EST,Solution, [facility]/pharmacy #[id number], increased dose 12/26/19, 162, [...] 05/07/20 13:30:00 EST, Route to Pharmacy Electronically, [facility]/pharmacy #[id number], 162, cm, 04/21/20 11:33:00 EST, Height, 80, kg, 04/18/20 9:48:00 EST, Dry Weight Start Date: 05/07/20 Status: Ordered Mapap 325 mg oral tablet 2 tablet = 650 mg, By Mouth, Every 4 hours, PRN for pain, not to exceed 3000 mg/day. instructions in beninese, # 120 tablet, 2 Refills, Maintenance, 11/01/19 15:24:00 EDT, Tablet, [facility]/pharmacy #[id number], 163, cm, 11/01/19 14:40:00 [...] 2 Refills, Maintenance, 04/05/20 14:08:00 EST, Tablet, [facility]/pharmacy #[id number], Partial fill upon patient request if the prescription is for a schedule II opioid drug., 162.56, cm, ... Start Date: 04/05/20 Status: Ordered omeprazole 40 mg oral enteric coated capsule 1 capsule = 40 mg, By Mouth, Daily, # 30 capsule, 3 Refills, Maintenance, 05/24/20 9:40:00 EST, EC Capsule, [facility]/pharmacy #[id number], note dose increase, 162, [...] Acute 07/30/20 8:00:00 EDT, 07/02/20 8:00:00 EDT, [facility]/pharmacy #[id number], Partial fill upon patient request if the prescription is for a schedule II opioi... Start Date: 07/02/20 Stop Date: 07/30/20 Status: Ordered Senna 8.6 mg oral tablet 8.6 mg, 1, tablet, By Mouth, Daily at bedtime, # 100 tablet, Refills 2, Tot. Refills 2, Maintenance, 06/04/20 12:46:00 EST, Route to Pharmacy Electronically, [facility]/pharmacy #[id number], 162, cm, 05/24/20 9:01:00 EST, Height, 80, kg, 04/18/20 9:48:00 EST, Dry... Start Date: 06/04/20 Status: Ordered Soma 350 mg oral tablet 350 mg, 1, tablet, By Mouth, 3 times a day, # 9 tablet, Refills 0, Tot. Refills 0, Maintenance, 05/04/20 15:46:00 EST, Route to Pharmacy Electronically, [facility]/pharmacy #[id number], Partial fill upon patient request if the prescription is for a schedule II opi... Start Date: 05/04/20 Status: Ordered Spiriva Respimat 60 ACT 2.5 mcg/inh inhalation aerosol 2 puffs, Inhalation, Daily, # 1 each, 11 Refills, Maintenance, 04/05/20 14:17:00 EST, [facility]/pharmacy #[id number], Partial fill upon patient request if the prescription is for a schedule II opioid drug., 162.56, cm, 03/27/20 11:36:00 EST, Height, 81.81, kg, 12... Start Date: 04/05/20 Status: Ordered tiZANidine 4 mg oral tablet 4 mg, 1, tablet, By Mouth, Every 8 hours, PRN, # 84 tablet, Refills 1, Tot. Refills 1, Maintenance,Spasm, 05/03/20 11:26:00 EST, Route to Pharmacy Electronically, [facility]/pharmacy #[id number], 162, cm, 04/21/20 11:33:00 [...]
--- OUTSIDE RECORDS SUMMARY | 2023-03-25 08:24 | XMS_ITS | Continuity of Care Document ---
Author Name Unknown Organization [facility] Address [address] [place] [address]- Care Team Providers Care Sole Edge Inker Machine Name Role Phone Richardson QUIROZ, Leonora Pérez Primary Care Physician Encounter [facility] Date(s): 06/11/21 - 07/11/[address] [address] Attending Physician: Clarence Reyngaa Admitting Physician: Admtr, [id number] Referring Physician: Admtr, [id number] Allergies, Adverse Reactions, Alerts Substance Reaction Severity Status morphine Active gabapentin swelling Active MetFORMIN Hydrochloride ER black tarry stool Active Lyrica dysphagia Active SEROquel body swelling - all over Act tony Immunizations Given and Recorded Vaccine Date Status Refusal Reason SARS-CoV-2 mRNA ([id number]) vax 05/14/21 Given influenza virus vaccine, inactivated [...] 05/31/21 15:43:00 EST, Route to Pharmacy Electronically, [facility]., Partial fill upon patient request if the prescription is for a sched... Start Date: 05/31/21 Status: Ordered Advair Diskus 500 mcg-50 mcg inhalation powder 1, puffs, Inhalation, 2 times a day, [id number], # 1 each, Refills 5, Tot. Refills 5, Maintenance, 05/15/21 9:20:00 EST, Powder, Route to Pharmacy Electronically, [id number], [facility]., 162.5, cm, 05/10/21 14:47... Start Date: 05/15/21 Status: Ordered albuterol 0.083% inhalation solution 3 mL = 2.5 mg, Inhalation, Every 4 hours, PRN for wheezing, # 100 each, 2 Refills, Maintenance, 05/15/21 9:30:00 EST, Solution, [facility]., 162.5, cm, 05/10/21 14:47:00 EST, Height, 90.9, kg, 02/02/21 5:59:00 EDT, Dry Weight Start Date: 05/15/21 Status: Ordered amitriptyline 75 mg oral tablet 1 tablet = 75 mg, By Mouth, Daily at bedtime, # 90 tablet, 1 Refills, Maintenance, 05/07/21 10:21:00 EST, Tablet, [facility]., Partial fill upon patient request if the prescription is for a schedule II opioid drug., 162.5, cm, 03/22/21... Start Date: 05/07/21 Status: Ordered atorvastatin 40 mg oral tablet 1 tablet = 40 mg, By Mouth, Daily, # 90 tablet, 3 Refills, Maintenance, 07/08/21 9:47:00 EDT, Tablet, [facility]., Partial fill upon patient request if the prescription is for a schedule II opioid drug., 162.5, cm, 07/08/21 8:49:00 EDT,... Start Date: 07/08/21 Status: Ordered cetirizine 10 mg oral tablet 1 tablet = 10 mg, By Mouth, Daily, # 30 tablet, 5 Refills, Maintenance, 07/08/21 9:44:00 EDT, Tablet, [facility]., 162.5, cm, 07/08/21 8:49:00 EDT, Height, 85.8, kg, 06/04/21 10:03:00 EST, Dry Weight Start Date: 07/08/21 Status: Ordered cholecalciferol 5000 intl units oral capsule 1 capsule = 125 mcg, By Mouth, Daily, with food, # 100 capsule, 2 Refills, Maintenance, 02/11/21 11:17:00 EST, Capsule, [facility]/pharmacy #[id number], Partial fill upon patient [...] 1 Refills, Maintenance, 07/08/21 9:45:00 EDT, Cream, [facility], PLEASE CANCEL ESTRADIOL VAGINAL CREAM, [...] tablet, 5 Refills, Maintenance, 07/08/21 9:43:00 EDT,Tablet, [facility], Partial fill upon patient request if the prescription is for a schedule II opioid drug., 162.5, cm, 07/08/21 8:49:0... Start Date: 07/08/21 Status: Ordered fluticasone 50 mcg/inh nasal spray See Instructions, USE 1 SPRAY IN BOTH NOSTRILS 2 TIMES A DAY, # 16 mL, 1 Refills, 07/08/21 9:44:00 EDT, [facility], 30, USE 1 SPRAY IN BOTH NOSTRILS 2 TIMES A DAY, 162.5, cm, :49:00 EDT, Height, 85.8, kg, 06/04/21 10:03:00 ES... Start Date: 07/08/21 Status: Ordered hydrochlorothiazide 12.5 mg oral tablet 1 tablet = 12.5 mg, By Mouth, Daily, TAKE 1 TABLET BY MOUTH EVERY DAY, # 30 capsule, 2 Refills, Maintenance, 05/15/21 9:20:00 EST, [facility]., 162.5, cm, 05/10/21 14:47:00 EST, [...] 3 Refills, Maintenance, 06/18/21 21:04:00 EDT, Tablet, [facility]., 162.5, cm, 06/17/21 13:04:00 EDT, Height, 85.8, kg, 06/04/21 10:03:00 EST, Dry Weight Start Date: 06/18/21 Status: Ordered Lantus 100 u/ml subcutaneous solution = 50 units, Subcutaneous Injection, Daily, # 15 mL, 5 Refills, Maintenance, 07/08/21 9:38:00 EDT, Solution, [facility] ;, 162.5, cm, 07/08/21 8:49:00 EDT, Height, 85.8, kg, 06/04/21 10:03:00 EST, Dry Weight Start Date: 07/08/21 Status: Ordered lisinopril 20 mg oral tablet 20 mg, 1, tablet, By Mouth, Daily, # 90 tablet, Refills 3, Tot. Refills 3, Maintenance, 04/12/21 13:24:00 EST, Route to Pharmacy Electronically, [facility]/pharmacy #[id number], 162.5, cm, 03/22/21 14:58:00 EST, Height, 90.9, kg, 02/02/21 5:59:00 EDT, Dry Weight Start Date: 04/12/21 Status: Ordered meloxicam 7.5 mg oral tablet 1 tablet = 7.5 mg, By Mouth, Daily, # 30 tablet, 1 Refills, Maintenance, 06/24/21 16:30:00 EDT, Tablet, [facility]., Partial fill upon patient request [...] Refills, Maintenance, 05/09/21 10:45:00 EST, EC Capsule, [facility]., 162.5, cm, 03/22/21 14:58:00 EST, Height, 90.9,kg, 02/02/21 5:59:00 EDT, Dry Weight Start Date: 05/09/21 Status: Ordered oxyCODONE 15 mg oral tablet 1 tablet = 15 mg, By Mouth, 3 times a day, for 28 days, MASSPAT CHECKED PT ON CONTRACT AT [facility], # 84 tablet, 0 Refills, Acute 08/08/21 16:38:00 EDT, 07/11/21 16:38:00 EDT, [facility], 162.5, cm, 07/08/21 8:49:00 EDT, Height... Start [...] 07/08/21 9:39:00 EDT, Route to Pharmacy Electronically, [facility], 162.5, cm, 07/08/21 8:49:00 EDT, Height, 85.8, kg, 06/04/21 10:0... Start Date: 07/08/21 Status: Ordered tiZANidine 4 mg oral tablet 4 mg, 1, tablet, By Mouth, Every 8 hours, PRN, # 84 tablet, Refills 1, Tot. Refills 1, Maintenance,Spasm, 06/24/21 19:16:00 EDT, Route to Pharmacy Electronically, [facility], 162.5, cm, 06/24/21 15:35:00 EDT, Height, 85.8, kg, ... Start Date: 06/24/21 Stop Date: 08/19/21 Status: Ordered topiramate 25 mg oral tablet 2 tablet = 50 mg, By Mouth, Daily, For nerve pain and headaches, # 60 tablet, 1 Refills, Maintenance, 07/01/21 15:05:00 EDT, Tablet[facility] Partial fill upon patient request if the prescription is for a schedule II opioid drug., 1... 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
--- OUTSIDE RECORDS SUMMARY | 2023-03-25 08:24 | XMS_ITS | Continuity of Care Document ---
Author Name Unknown Organization [facility] ter Address [address] [place] [address]- Care Team Providers Care Entry Level Account Executive Name Role Phone Richardson QUIROZ, Leonora Pérez Primary Care Physician [phone] Encounter [facility] [place] Date(s): 11/12/20 - 11/12/[address] [address]- Discharge Disposition: A-D/C Walkout Attending Physician: Not on Staff, Attending MD Admitting Physician: Not on Staff, Admitting MD Referring Physician: Not on Staff, Referring [...] 14:12:00 EST, Powder, Route to Pharmacy Electronically, [id number], [facility]/pharmacy #[id number], 162.56, cm, 03/27/20 11:36:00... Start Date: 04/05/20 Status: Ordered albuterol 0.083% inhalation solution 3 mL = 2.5 mg, Inhalation, Every 4 hours, PRN for wheezing, # 100 each, 2 Refills, Maintenance, 08/15/20 10:22:00 EDT, Solution, [facility]/pharmacy #[id number], 163, cm, 08/09/20 8:45:00 EDT, Height, 84.8, kg, 06/25/20 20:28:00 EDT, Dry Weight Start Date: 08/15/20 Status: Ordered amitriptyline 75 mg oral tablet 1 tablet = 75 mg, By Mouth, Daily at bedtime, # 30 tablet, 5 Refills, Maintenance, 08/16/20 11:58:00 EDT, Tablet, [facility]/pharmacy #[id number], Partial fill [...] 1 Refills, Maintenance, 07/30/20 19:49:00 EDT, Cream, [facility]/pharmacy #[id number], 1 [...] 5 Refills, Maintenance, 03/02/20 11:18:00 EST, Capsule, [facility]/pharmacy #[id number], Partial fill upon patient request. NOT INCREASED DOSE, 163, cm, 12/25/2012:58:00 EDT, Height, 80, kg, 10/29/19 0:29:00 EDT,... Start Date: 03/02/20 Status: Ordered fluticasone 50 mcg/inh nasal spray See Instructions, USE 1 SPRAY IN BOTH NOSTRILS 2 TIMES A DAY, # 16 mL, 1 Refills, Maintenance, [id number], 30, USE 1 SPRAY IN BOTH NOSTRILS 2 TIMES A DAY, 163, cm, 08/15/20 14:23:00 EDT, Height,84.8, kg, 06/25/20 20:28:00 EDT, Dry Weight Start Date: 09/07/20 Status: Ordered hydrochlorothiazide 12.5 mg oral tablet 1 tablet = 12.5 mg, By Mouth, Daily, # 90 tablet, 3 Refills, Maintenance, 01/19/20 10:28:00 EDT, Tablet, [facility]/pharmacy #[id number], 163, cm, 12/26/19 13:58:00 EDT, Height, 80, kg, 10/29/19 0:29:00 EDT, Dry Weight Start Date: 01/19/20 Status: Ordered Januvia 100 mg oral tablet 1 tablet = 100 mg, By Mouth, Daily, # 30 tablet, 2 Refills, Maintenance, 10/29/20 14:07:00 EDT, Tablet, [facility]/pharmacy #[id number], 163, cm, 08/15/20 14:23:00 EDT, Height, 84.8, kg, 06/25/20 20:28:00 EDT, Dry Weight Start Date: 10/29/20 Status: Ordered Lantus 100 u/ml subcutaneous solution = 40 units, Subcutaneous Injection, Daily, # 12 mL, 11 Refills, Maintenance, 05/07/20 13:24:00 EST,Solution, [facility]/pharmacy #[id number], increased dose 12/26/19, 162, cm, 04/21/20 [...] 05/07/20 13:30:00 EST, Route to Pharmacy Electronically, [facility]/pharmacy #[id number], 162, cm, 04/21/20 11:33:00 EST, Height, [...] not to exceed 3000 mg/day. instructions in namibian, # 120 tablet, 2 Refills, Maintenance, 11/01/19 [...] day, for 28 days, on contract at [facility], # 56 tablet, 0 Refills, Acute 11/27/20 11:37:00 EDT, 10/30/20 11:37:00 EDT, [facility]/pharmacy #[id number], Partial fill upon [...] 05/04/20 15:46:00 EST, Route to Pharmacy Electronically, [id number], Partial [...] 08/16/20 11:59:00 EDT, Route to Pharmacy Electronically, [facility]/pharmacy #[id number], 163, cm, 08/15/20 14:23:00 EDT, Height, 84.8, kg, 06/25/20 20:28:00... Start Date: 08/16/20 Stop Date: 10/11/20 Status: Ordered Trulicity Pen 0.75 mg/0.5 mL subcutaneous solution 0.5 mL = 0.75 mg, Subcutaneous Injection, Every week, rotate injection sites, # 2 mL, 5 Refills, Maintenance, 10/31/20 15:27:00 EDT, Solution, [facility]/pharmacy #[id number], Partial fill upon patient request ifthe [...] [place], pending MRI 3urge and stress Vital Signs Most recent to oldest [Reference Range]: 1 2 Height 165 cm (11/12/20 4:58 PM) Oxygen Saturation [94-100 %] 96 % (11/12/20 4:58 PM) 98 % (11/12/20 4:39 PM) Pulse Rate [55-90 bpm] 93 bpm *H* (11/12/20 4:58 PM) 98 bpm *H* (11/12/20 4:39 PM) Blood Pressure [90-138/55-84 mm Hg] 126/ 79mm Hg (11/12/20 4:58 PM) Respiratory Rate [16-30 br/min] 20 br/mi n (11/12/20 4:58 PM) Temperature [96.8-100.4 DegF] 99.0 DegF (11/12/20 4:58 PM) Mode of Delivery (Oxygen) Room air (11/12/20 4:58 PM) Room air (11/12/20 4:39 PM) Blood pressure sites Arm, right (11/12/20 4:58 PM) Temperature Route Oral (11/12/20 4:58 PM) Social History Social History Type Response Tobacco Use: Pt states she q uit smoking 1 week ago. Sex
--- OUTSIDE RECORDS SUMMARY | 2023-03-25 08:24 | XMS_ITS | Continuity of Care Document ---
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 Start Date: 04/27/19 Status: Ordered albuterol 0.083% inhalation solution 3 mL = 2.5 mg, Inhalation, Every 4 hours, PRN for wheezing, # 100 each, 5 Refills, Maintenance, 06/27/19 14:32:00 EDT, Solution, [facility]/pharmacy #[id number], 160, cm, 06/01/19 14:08:00 EST, [...] tablet, 5 Refills, Maintenance, 10/06/19 7:45:00EDT, Tablet, [facility]/pharmacy #[id number], 160, cm, 09/28/19 8:58:00 EDT, [...] 5 Refills, Maintenance, 12/13/19 18:32:00 EDT, Tablet, [facility]/pharmacy #[id number], 163, cm, 12/13/19 15:57:00 EDT, Height, 80, kg, 10/29/19 0:29:00 EDT, Dry Weight Start Date: 12/13/19 Status: Ordered clonazePAM 0.5 mg oral tablet TAKE 1 TABLET BY MOUTH TWICE A DAY NEEDED Start Date: 06/02/19 Status: Ordered clotrimazole 1% topical cream 1 application, Topically, 2 times a day, # 30 Gm, 1 Refills, Maintenance, 12/15/19 9:12:00 EDT, Cream, [facility]/pharmacy #[id number], 1 application Topically 2 times a day, 163, cm, 12/13/19 15:57:00 EDT, Height, 80, kg, 10/29/19 0:29:00 EDT, Dry Weight Start Date: 12/15/19 Status: Ordered doxycycline hyclate 100 mg oral capsule 1 capsule = 100 mg, By Mouth, 2 times a day, for 10 days, # 20 capsule, 0 Refills, Acute 12/23/19 16:09:00 EDT, 12/13/19 16:09:00 EDT, Capsule, [facility]/pharmacy #[id number], 163, cm, 12/13/19 15:57:00 EDT, Height, 80, kg, 10/29/19 0:29:00 EDT, Dry Weight Start Date: 12/13/19 Stop Date: 12/23/19 Status: Ordered duloxetine 60 mg oral enteric coated capsule TAKE 1 CAPSULE BY MOUTH EVERY DAY Start Date: 10/29/17 Status: Ordered Insulin Syringe, BD Ultra-Fine 1 [...] 5 Refills, Maintenance, 04/28/19 16:05:00 EST, Tablet, [id number], 158, cm, 04/28/19 14:51:00 EST, Height, 82, kg, 04/01/19 16:10:00 EST, Dry Weight Start Date: 04/28/19 Status: Ordered Lantus 100 u/ml subcutaneous solution = 25 units, Subcutaneous Injection, Daily, # 10 mL, 11 Refills, Maintenance, 09/05/19 14:10:00 EDT,Solution, [facility]/pharmacy #[id number], 160, cm, 07/22/19 15:08:00 EDT, Height, 86.8, kg, 07/22/19 15:13:00 EDT, Dry Weight Start Date: 09/05/19 Status: Ordered lidocaine 5% topical film 1 patch, Topically, Daily, For chronic radicular back pain, # 30 patch, 5 Refills, Maintenance, 06/27/19 14:37:00 EDT, [facility]/pharmacy #[id number], 1 [...] not to exceed 3000 mg/day. instructions in slovenian, # 120 tablet, 2 Refills, Maintenance, 11/01/19 [...] 2Refills, Maintenance, 10/06/19 7:45:00 EDT, EC Capsule, [facility]/pharmacy #[id number], cancel Ranitidine, 160,cm, 09/28/19 8:58:00 EDT, Height, 86.8, kg, ... Start Date: 10/06/19 Status: Ordered Oxycodone = 10 mg, By Mouth, Every 12 hours, PRN Pain , Severe, LBP, 0 Refills, Maintenance, 12/07/19 15:23:00 EDT, Partial fill upon patient request Start Date: 12/07/19 Status: Ordered Pen [place], 31 G x 5 mm BD Ultra [...] 05/30/19 18:52:00 EST, Route to Pharmacy Electronically, [facility]/pharmacy #[id number], 160, cm, 05/30/19 18:08:00 EST, Height, 88.9, kg, 05/23/19... Start Date: 05/30/19 Status: Ordered Senna 8.6 mg oral tablet 8.6 mg, 1, tablet, By Mouth, Daily at bedtime, # 100 tablet, Refills 2, Tot. Refills 2, Maintenance, 06/10/19 16:12:00 EST, Route to Pharmacy Electronically, [facility]/pharmacy #[id number], 160, cm, 06/01/19 14:08:00 EST, Height, 88.9, kg, 05/23/19 22:09:00 EST,... Start Date: 06/10/19 Status: Ordered Spiriva Respimat 60 ACT 2.5 mcg/inh inhalation aerosol 2 puffs, Inhalation, Daily, # 1 each, 5 Refills, Maintenance, 04/26/19 10:30:00 EST, [facility]/pharmacy #[id number], 158, cm, 04/26/19 9:58:00 EST, Height, 82, kg, 04/01/19 16:10:00 EST, Dry Weight Start Date: 04/26/19 Status: Ordered tiZANidine 4 mg oral tablet 4 mg, 1, tablet, By Mouth, Every 8 hours, # 84 tablet, Refills 1, Tot. Refills 1, Maintenance, 11/24/19 8:16:00 EDT, Route to Pharmacy Electronically, [facility]/pharmacy #[id number], 163, cm, 11/01/19 14:40:00 EDT, [...] oldest [Reference Range]: 1 Height 163 cm (12/13/19 3:57 PM) Oxygen Saturation [94-100 %] 99 % (12/13/19 3:57 PM) Pulse Rate [55-90 bpm] 90 bpm (12/13/19 3:57 PM) Blood Pressure [90-138/55-84 mm Hg] 159/ 108mm Hg *H* (12/13/19 3:57 PM) Respiratory Rate [16-30 br/min] 23 br/mi n (12/13/19 3:57 PM) Temperature [96.8-100.4 DegF] 97.9 DegF (12/13/19 3:57 PM) Mode of Delivery (Oxygen) Room air (12/13/19 3:57 PM) Blood pressure sites Arm, left (12/13/19 3:57 PM) Temperature Route Temporal (12/13/19 3:57 PM) Social History Social History Type Response Tobacco Use: Pt states she q uit smoking 1 week ago. Sex Female
--- OUTSIDE RECORDS SUMMARY | 2023-03-25 08:24 | XMS_ITS | Continuity of Care Document ---
Author Name Unknown Organization [facility] ter Address [address] [place] [id number]- Care Team Providers Care Zoo Veterinarian Name Role Phone Richardson QUIROZ, Leonora Pérez Primary Care Physician [phone] Encounter [facility] Date(s): 11/15/19 - 03/14/[address] [address] Attending Physician: Richardson QUIROZ, Leonora Pérez Admitting [...] 12:48:00 EST, Powder, Route to Pharmacy Electronically, [id number], [facility]/pharmacy #[id number], 158, cm, 04/26/19 9:58:00 EST, [...] 5 Refills, Maintenance, 12/30/19 18:21:00 EDT, Tablet, [facility]/pharmacy #[id number], 163, cm, 12/26/19 13:58:00 EDT, [...] 5 Refills, Maintenance, 12/13/19 18:32:00 EDT, Tablet, [facility]/pharmacy #[id number], 163, cm, 12/13/19 15:57:00 EDT, Height, 80, kg, 10/29/19 0:29:00 EDT, Dry Weight Start Date: 12/13/19 Status: Ordered clonazePAM 0.5 mg oral tablet TAKE 1 TABLET BY MOUTH TWICE A DAY NEEDED Start Date: 06/02/19 Status: Ordered clotrimazole 1% topical cream 1 application, Topically, 2 times a day, # 30 Gm, 1 Refills, Maintenance, 02/03/20 13:47:00 EDT, Cream, [facility]/pharmacy #[id number], 1 application Topically 2 times a day, 163, cm, 12/26/19 13:58:00 EDT, Height, 80, kg, 10/29/19 0:29:00 EDT, Dry Weight Start Date: 02/03/20 Status: Ordered duloxetine 60 mg oral enteric coated capsule 2 capsule = 120 mg, By Mouth, Daily, # 60 capsule, 5 Refills, Maintenance, 03/02/20 11:18:00 EST, Capsule, [facility]/pharmacy #[id number], Partial fill upon patient request. NOT INCREASED DOSE, 163, cm, 12/25/2012:58:00 EDT, Height, 80, kg, 10/29/19 0:29:00 EDT,... Start Date: 03/02/20 Status: Ordered hydrochlorothiazide 12.5 mg oral tablet 1 tablet = 12.5 mg, By Mouth, Daily, # 90 tablet, 3 Refills, Maintenance, 01/19/20 10:28:00 EDT, Tablet, [facility]/pharmacy #[id number], 163, cm, 12/26/19 13:58:00 EDT, [...] 5 Refills, Maintenance, 12/30/19 18:21:00 EDT, Tablet, [facility]/pharmacy #[id number], 163, cm, 12/26/19 13:58:00 EDT, Height, 80, kg, 10/29/19 0:29:00 EDT, Dry Weight Start Date: 12/30/19 Status: Ordered Lantus 100 u/ml subcutaneous solution = 35 units, Subcutaneous Injection, Daily, # 10 mL, 11 Refills, Maintenance, 12/26/19 14:22:00 EDT,Solution, [facility]/pharmacy #[id number], increased dose 12/26/19, 163, cm, 12/26/19 13:58:00 EDT, Height, 80, kg, 10/29/19 0:29:00 EDT, Dry Weight Start Date: 12/26/19 Status: Ordered lidocaine 5% topical film 1 patch, Topically, Daily, For chronic radicular back pain, # 30 patch, 5 Refills, Maintenance, 03/09/20 8:53:00 EST, [facility]/pharmacy #[id number], 1 patch Topically Daily,Instr:For [...] not to exceed 3000 mg/day. instructions in armenian, # 120 tablet, 2 Refills, Maintenance, 11/01/19 15:24:00 EDT, Tablet, [facility]/pharmacy #[id number], 163, cm, 11/01/19 14:40:00 EDT, [...] 2Refills, Maintenance, 10/06/19 7:45:00 EDT, EC Capsule, [facility]/pharmacy #[id number], cancel Ranitidine, 160,cm, 09/28/19 8:58:00 [...] Acute 04/05/20 8:22:00 EST, 03/08/20 8:22:00 EST, [facility]/pharmacy #[id number], Partial fill upon patient request if the prescription is for a schedule II opioid drug. Client on con... Start Date: 03/08/20 Stop Date: 04/05/20 Status: Ordered Pen [place], 31 G x 5 mm BD Ultra [...] 06/10/19 16:12:00 EST, Route to Pharmacy Electronically, [facility]/pharmacy #[id number], 160, cm, 06/01/19 14:08:00 EST, Height, 88.9, kg, 05/23/19 22:09:00 EST,... Start Date: 06/10/19 Status: Ordered Spiriva Respimat 60 ACT 2.5 mcg/inh inhalation aerosol 2 puffs, Inhalation, Daily, # 1 each, 5 Refills, Maintenance, 04/26/19 10:30:00 EST, [facility]/pharmacy #[id number], 158, cm, 04/26/19 9:58:00 EST, Height, 82, kg, 04/01/19 16:10:00 EST, Dry Weight Start Date: 04/26/19 Status: Ordered tiZANidine 4 mg oral tablet 4 mg, 1, tablet, By Mouth, Every 8 hours, # 84 tablet, Refills 1, Tot. Refills 1, Maintenance, 02/03/20 13:47:00 EDT, [id number], cm, 12/26/19 13:58:00 EDT, Height, [...] 2seen on CT Abd 09/18/16 at [facility], pending MRI 3urge and stress Social History Social History Type Response Tobacco Use: Pt states she q uit smoking 1 week ago. Sex Female
--- OUTSIDE RECORDS SUMMARY | 2023-03-25 08:24 | XMS_ITS | Continuity of Care Document ---
Author Name Unknown Organization [facility] Address [address] [place] [address]- Care Team Providers Care Senior Licensing Manager Name Role Phone Richardson QUIROZ, Leonora Pérez Primary Care Physician Encounter [facility] Date(s): 06/05/21 - 07/05/21 [facility] [address], [place] [address] Allergies, Adverse Reactions, Alerts Substance Reaction Severity Status morphine Active gabapentin swelling Active Lyrica dysphagia Active SEROquel body swelling - all over Act tony MetFORMIN Hydrochloride ER black tarry stool Active Immunizations Given and Recorded Vaccine Date Status Refusal Reason SARS-CoV-2 mRNA ([id number]) vax 05/14/21 Given influenza virus vaccine, inactivated [...] 05/31/21 15:43:00 EST, Route to Pharmacy Electronically, [facility], Partial fill upon patient request if the prescription is for a sched... Start Date: 05/31/21 Status: Ordered Advair Diskus 500 mcg-50 mcg inhalation powder 1, puffs, Inhalation, 2 times a day, j45.909, # 1 each, Refills 5, Tot. Refills 5, Maintenance, 05/15/21 9:20:00 EST, Powder, Route to Pharmacy Electronically, [id number], [facility], 162.5, cm, 05/10/21 14:47... Start Date: 05/15/21 Status: Ordered albuterol 0.083% inhalation solution 3 mL = 2.5 mg, Inhalation, Every 4 hours, PRN for wheezing, # 100 each, 2 Refills, Maintenance, 05/15/21 9:30:00 EST, Solution, [facility], 162.5, cm, 05/10/21 14:47:00 EST, Height, 90.9, kg, 02/02/21 5:59:00 EDT, Dry Weight Start Date: 05/15/21 Status: Ordered amitriptyline 75 mg oral tablet 1 tablet = 75 mg, By Mouth, Daily at bedtime, # 90 tablet, 1 Refills, Maintenance, 05/07/21 10:21:00 EST, Tablet, [facility], Partial fill upon patient request if the prescription is for a schedule II opioid drug., 162.5, cm, 03/22/21... Start Date: 05/07/21 Status: Ordered atorvastatin 20 mg oral tablet 3 tablet = 60 mg, By Mouth, Daily, # 90 tablet, 3 Refills, Maintenance, 04/05/20 14:11:00 EST, Tablet, [facility]/pharmacy #[id number], Partial fill upon patient request if the prescription is for a schedule II opioid drug., 162.56, cm, 03/27/20 11:36:00 EST, Heig... Start Date: 04/05/20 Status: Ordered capsaicin 0.025% topical cream 1 application, Topically, 3 times a day, # 45 Gm, 3 Refills, Maintenance, 11/01/19 15:25:00 EDT, Cream, [facility]/pharmacy #[id number], 1 application Topically 3 times a day, 163, cm, 11/01/19 14:40:00 EDT, Height, 80, kg, 10/29/19 0:29:00 EDT, Dry Weight Start Date: 11/01/19 Status: Ordered cetirizine 10 mg oral tablet 1 tablet = 10 mg, By Mouth, Daily, # 30 tablet, 5 Refills, Maintenance, 06/20/20 13:18:00 EDT, Tablet, [facility]/pharmacy #[id number], 162, cm, 05/24/20 9:01:00 EST, Height, 80, kg, 04/18/20 9:48:00 EST, Dry Weight Start Date: 06/20/20 Status: Ordered cholecalciferol 5000 intl units oral capsule 1 capsule = 125 mcg, By Mouth, Daily, with food, # 100 capsule, 2 Refills, Maintenance, 02/11/21 11:17:00 EST, Capsule, [facility]/pharmacy #[id number], Partial fill upon [...] 1 Refills, Maintenance, 12/05/20 12:42:00 EDT, Cream, [facility]/pharmacy #[id number], 1 application [...] 5 Refills, Maintenance, 02/18/21 15:09:00 EST, Capsule, [facility]/pharmacy #[id number], Partial fill upon [...] DAY, # 16 mL, 1 Refills, Maintenance, [id number], 30, USE 1 SPRAY IN BOTH NOSTRILS 2 TIMES A DAY, 163, cm, 08/15/20 14:23:00 EDT, Height,84.8, kg, 06/25/20 20:28:00 EDT, Dry Weight Start Date: 09/07/20 Status: Ordered hydrochlorothiazide 12.5 mg oral tablet 1 tablet = 12.5 mg, By Mouth, Daily, TAKE 1 TABLET BY MOUTH EVERY DAY, # 30 capsule, 2 Refills, Maintenance, 05/15/21 9:20:00 EST, [facility] 162.5, cm, 05/10/21 14:47:00 EST, Height, 90.9, [...] Maintenance, 06/18/21 21:04:00 EDT, Tablet, [facility], 162.5, cm, 06/17/21 13:04:00 EDT, Height, 85.8, kg, 06/04/21 10:03:00 EST, Dry Weight Start Date: 06/18/21 Status: Ordered Lantus 100 u/ml subcutaneous solution = 40 units, Subcutaneous Injection, Daily, # 12 mL, 2 Refills, Maintenance, 03/01/21 12:42:00 EST, Solution, [facility]/pharmacy #[id number], increased dose 12/26/19, 155, cm, 02/18/21 14:54:00 EST, Height, 90.9, kg, 02/02/21 5:59:00 EDT, Dry Weight Start Date: 03/01/21 Status: Ordered lidocaine 5% topical film 1 patch, Topically, Daily, For chronic radicular back pain, # 30 patch, 5 Refills, Maintenance, 10/11/20 8:15:00 EDT, [facility]/pharmacy #[id number], 1 patch Topically Daily,Instr:For chronic radicular back pain, 163, cm, 08/15/20 14:23:00 EDT, Height, 84.8, kg,... Start Date: 10/11/20 Status: Ordered lisinopril 20 mg oral tablet 20 mg, 1, tablet, By Mouth, Daily, # 90 tablet, Refills 3, Tot. Refills 3, Maintenance, 04/12/21 13:24:00 EST, Route to Pharmacy Electronically, [facility]/pharmacy #[id number], 162.5, cm, 03/22/21 14:58:00 EST, Height, 90.9, kg, 02/02/21 5:59:00 EDT, Dry Weight Start Date: 04/12/21 Status: Ordered loratadine 10 mg oral capsule 1 capsule = 10 mg, By Mouth, Daily, # 40 capsule, 0 Refills, Maintenance, 08/15/20 15:59:00 EDT, [facility]apsule, [id number] Partial fill upon patient request if the prescription is for a schedule II opioid drug., 163, cm, 08/15/20 14:23:00 EDT, Heig... Start Date: 08/15/20 Status: Ordered meloxicam 7.5 mg oral tablet 1 tablet = 7.5 mg, By Mouth, Daily, # 30 tablet, 1 Refills, Maintenance, 06/24/21 16:30:00 EDT, Tablet, [facility]., Partial fill upon patient request if the prescription is for a schedule II opioid drug., 162.5, cm, 06/24/21 15:35:00 E... Start Date: 06/24/21 Status: Ordered mirabegron 25 mg oral tablet, extended release 1 tablet = 25 mg, By Mouth, Daily, do not crush or chew, # 30 tablet, 11 Refills, Maintenance, 12/31/20 15:58:00 EDT, ER Tablet, [id number], Partial fill upon patient request [...] Refills, Maintenance, 05/09/21 10:45:00 EST, EC Capsule, [facility] 162.5, cm, 03/22/21 14:58:00 EST, Height, 90.9,kg, 02/02/21 5:59:00 EDT, Dry Weight Start Date: 05/09/21 Status: Ordered oxyCODONE 15 mg oral tablet 1 tablet = 15 mg, By Mouth, 3 times a day, for 28 days, [facility] CHECKED PT ON CONTRACT AT [facility], # 84 tablet, 0 Refills, Acute 07/11/21 16:22:00 EDT, 06/13/21 16:22:00 EST, [facility] 162.5, cm, 06/06/21 9:12:00 EST, Height... Start [...] tablet, 0 Refills, Maintenance, 07/01/21 15:03:00 EDT, [facility], Partial fill upon patient request if the prescription is for a schedule II opioid drug., 162.5, cm, 07/01/21 14:34:00 EDT, Height... Start Date: 07/01/21 Stop Date: 07/06/21 Status: Ordered Senna 8.6 mg oral tablet 8.6 mg, 1, tablet, By Mouth, Daily at bedtime, # 100 tablet, Refills 11, Tot. Refills 11, Maintenance, 10/30/20 11:37:00 EDT, Route to Pharmacy Electronically, [facility]/pharmacy #[id number], 163, cm, 08/15/20 14:23:00 [...] 06/24/21 19:16:00 EDT, Route to Pharmacy Electronically, [facility] 162.5, cm, 06/24/21 15:35:00 EDT, Height, 85.8, kg, ... Start Date: 06/24/21 Stop Date: 08/19/21 Status: Ordered topiramate 25 mg oral tablet 2 tablet = 50 mg, By Mouth, Daily, For nerve pain and headaches, # 60 tablet, 1 Refills, Maintenance, 07/01/21 15:05:00 EDT, Tablet, [facility]., Partial fill upon patient request if the prescription is for a schedule II opioid drug., 1... 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
--- OUTSIDE RECORDS SUMMARY | 2023-03-25 08:24 | XMS_ITS | Continuity of Care Document ---
Author Name Unknown Organization [facility] Address [address] [place] [address]- Care Team Providers Care Radio Division Captain Name Role Phone Richardson QUIROZ, Leonora Pérez Primary Care Physician Encounter [facility] Date(s): 07/17/21 - 08/24/21 [facility] [address] [address], [place] [address] Attending Physician: Not on Staff, Attending MD Allergies, Adverse Reactions, Alerts Substance Reaction Severity Status morphine Active gabapentin swelling Active MetFORMIN Hydrochloride ER black tarry stool Active SEROquel body swelling - all over Act tony Lyrica dysphagia Active Immunizations Given and Recorded Vaccine Date Status Refusal Reason SARS-CoV-2 mRNA (nqydlnt-gteu-vmube) vax 05/14/21 Given influenza virus vaccine, inactivated [...] 07/18/21 15:15:00 EDT, Route to Pharmacy Electronically, [facility], Partial fill upon patient request if the prescription is for a sched... Start Date: 07/18/21 Status: Ordered Advair Diskus 500 mcg-50 mcg inhalation powder 1, puffs, Inhalation, 2 times a day, [id number], # 1 each, Refills 5, Tot. Refills 5, Maintenance, 05/15/21 9:20:00 EST, Powder, Route to Pharmacy Electronically, [id number], [facility], 162.5, cm, 05/10/21 14:47... Start Date: 05/15/21 Status: Ordered albuterol 0.083% inhalation solution 3 mL = 2.5 mg, Inhalation, Every 4 hours, PRN for wheezing, # 100 each, 2 Refills, Maintenance, 05/15/21 9:30:00 EST, Solution, [facility], 162.5, cm, 05/10/21 14:47:00 EST, Height, 90.9, kg, 02/02/21 5:59:00 EDT, Dry Weight Start Date: 05/15/21 Status: Ordered amitriptyline 25 mg oral tablet 25 mg, 1, tablet, By Mouth, Daily at bedtime, Dose decrease, # 30 tablet, Refills 0, Tot. Refills 0, Maintenance, 08/01/21 15:07:00 EDT, Route to Pharmacy Electronically, [facility], Partial fill upon patient request if the prescriptio... Start Date: 08/01/21 Status: Ordered cetirizine 10 mg oral tablet 1 tablet = 10 mg, By Mouth, Daily, # 30 tablet, 5 Refills, Maintenance, 07/08/21 9:44:00 EDT, Tablet, [facility], 162.5, cm, 07/08/21 8:49:00 EDT, Height, 85.8, kg, 06/04/21 10:03:00 EST, Dry Weight Start Date: 07/08/21 Status: Ordered cholecalciferol 5000 intl units oral capsule 1 capsule = 125 mcg, By Mouth, Daily, with food, # 100 capsule, 2 Refills, Maintenance, 02/11/21 11:17:00 EST, Capsule, [facility]/pharmacy #[id number], Partial fill upon patient [...] 1 Refills, Maintenance, 07/08/21 9:45:00 EDT, [facility] CANCEL ESTRADIOL VAGINAL CREAM, 1 [...] tablet, 5 Refills, Maintenance, 07/08/21 9:43:00 EDT,Tablet, [facility], Partial fill upon patient request if the prescription is for a schedule II opioid drug., 162.5, cm, 07/08/21 8:49:0... Start Date: 07/08/21 Status: Ordered fluticasone 50 mcg/inh nasal spray See Instructions, USE 1 SPRAY IN BOTH NOSTRILS 2 TIMES A DAY, # 16 mL, 1 Refills, 07/08/21 9:44:00 EDT, [facility]., 30, USE 1 SPRAY IN BOTH NOSTRILS 2 TIMES A DAY, 162.5, cm, :49:00 EDT, Height, 85.8, kg, 06/04/21 10:03:00 ES... Start Date: 07/08/21 Status: Ordered hydrochlorothiazide 12.5 mg oral tablet 1 tablet = 12.5 mg, By Mouth, Daily, TAKE 1 TABLET BY MOUTH EVERY DAY, # 30 capsule, 2 Refills, Maintenance, 05/15/21 9:20:00 EST, [facility]., 162.5, cm, 05/10/21 14:47:00 EST, Height, [...] 3 Refills, Maintenance, 06/18/21 21:04:00 EDT, Tablet, [facility]., 162.5, cm, 06/17/21 13:04:00 EDT, Height, 85.8, kg, 06/04/21 10:03:00 EST, Dry Weight Start Date: 06/18/21 Status: Ordered Lantus 100 u/ml subcutaneous solution = 50 units, Subcutaneous Injection, Daily, # 15 mL, 5 Refills, Maintenance, 07/08/21 9:38:00 EDT, Solution, [facility], ;, 162.5, cm, 07/08/21 8:49:00 EDT, Height, 85.8, kg, 06/04/21 10:03:00 EST, Dry Weight Start Date: 07/08/21 Status: Ordered lisinopril 20 mg oral tablet 20 mg, 1, tablet, By Mouth, Daily, # 90 tablet, Refills 3, Tot. Refills 3, Maintenance, 04/12/21 13:24:00 EST, Route to Pharmacy Electronically, [facility]/pharmacy #[id number], 162.5, cm, 03/22/21 14:58:00 EST, Height, 90.9, kg, 02/02/21 5:59:00 EDT, Dry Weight Start Date: 04/12/21 Status: Ordered mirtazapine 30 mg oral tablet 1 tablet = 30 mg, By Mouth, Daily at bedtime, Maintenance, 05/24/19 9:12:00 EST, Tablet Start Date: 05/24/19 Status: Ordered omeprazole 40 mg oral enteric coated capsule 1 capsule = 40 mg, By Mouth, Daily, PRN Dyspepsia, # 90 capsule, 0 Refills, Maintenance, 05/09/21 10:45:00 EST, EC Capsule, [facility], 162.5, cm, 03/22/21 14:58:00 EST, Height, 90.9,kg, 02/02/21 5:59:00 EDT, Dry Weight Start Date: 05/09/21 Status: Ordered OxyCONTIN 15 mg oral tablet, extended release 1 tablet = 15 mg, By Mouth, Every 12 hours, # 56 tablet, 0 Refills, Maintenance, 08/03/21 7:30:00 EDT, ER Tablet, [facility], Partial fill upon patient request if the prescription is for a schedule II opioid drug. Patient on contract.... Start Date: 08/03/21 Stop Date: 08/31/21 Status: Ordered Senna 8.6 mg oral tablet 8.6 mg, 1, tablet, By Mouth, Daily at bedtime, # 100 tablet, Refills 11, Tot. Refills 11, Maintenance, 07/08/21 9:39:00 EDT, Route to Pharmacy Electronically, [facility]., 162.5, cm, 07/08/21 8:49:00 EDT, Height, 85.8, kg, 06/04/21 10:0... 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
--- OUTSIDE RECORDS SUMMARY | 2023-03-25 08:24 | XMS_ITS | Continuity of Care Document ---
Author Name Unknown Organization [facility] Address [address] [place] [id number]- Care Team Providers Care Slitter Service And Setter Name Role Phone Richardson FARROWING MANAGER, Leonora Pérez Primary Care Physician Encounter [facility] Date(s): 05/05/22 - 06/04/22 [facility] [address] [place], [place] [address] Attending Physician: Clarence Reynaga Admitting Physician: Clarence Reynaga Referring Physician: AdmtrClarence Allergies, Adverse Reactions, Alerts Substance Reaction Severity Status morphine Active gabapentin swelling Active Lyrica dysphagia Active SEROquel body swelling - all over Act tony MetFORMIN Hydrochloride ER black tarry stool Active Immunizations Given and Recorded Vaccine Date Status Refusal Reason [id number] 12y+ bivalent booster vax 01/30/22 Given influenza virus vaccine, inactivated 01/30/22 Give n influenza virus vaccine, inactivated 02/04/21 Give n influenza virus vaccine, inactivated 1 04/19/20 Gi tonio influenza virus vaccine, inactivated 03/12/19 Give n influenza virus vaccine, inactivated 01/19/18 Give n influenza virus vaccine, inactivated 02/16/17 Give n pneumococcal 20-valent conjugate vaccine 12/26/21 Given SARS-CoV-2 mRNA (izlfmyr-jsqk-sfipe) vax 05/14/21 Given SARS-CoV-2 (COVID-19) mRNA BNT-162b2 vac 2 10/19/20 Given SARS-CoV-2 (COVID-19) mRNA BNT-162b2 vac 09/28/20 Given pneumococcal 23-valent vaccine 03/12/19 Given tetanus/diphtheria/pertussis, acel(Tdap) 4/25/14 Given 1Early/Late Reason: Early/Late Reason: Patient Not Available/Off Unit 2? Unknown: Resend to [facility]. Resend to [facility]. Medications acetaminophen 325 mg oral tablet 650 mg, 2, tablet, By Mouth, 3 times a day, # 100 tablet, Refills 1, Tot. Refills 1, Maintenance, 10/22/21 9:23:00 EDT, Route to Pharmacy Electronically, [facility], Partial fill uponpatient request if the [...] 5 Refills, Maintenance, 04/03/22 11:25:00 EST, [facility], 163, cm, 02/11/22 19:19:00 EST, Height, 83, kg, 02/11/22 19:19:00 EST, Dry Weight Start Date: 04/03/22 Status: Ordered amitriptyline 25 mg oral tablet 25 mg, 1, tablet, By Mouth, Daily at bedtime, # 30 tablet, Refills 2, Tot. Refills 2, Maintenance, 08/30/21 12:06:00 EDT, Route to Pharmacy Electronically, [facility], Partial fill upon patient request if the prescription is for a sche... Start Date: 08/30/21 Status: Ordered amLODIPine 5 mg oral tablet 5 mg, 1, tablet, By Mouth, Daily, # 90 tablet, Refills 3, Tot. Refills 3, Maintenance, 04/29/22 11:56:00 EST, Route to Pharmacy Electronically, [facility]., Partial fill upon patient request if the prescription is for a schedule II opio... Start Date: 04/29/22 Status: Ordered cholecalciferol 5000 intl units oral capsule 1 capsule = 125 mcg, By Mouth, Daily, with food, # 100 capsule, 2 Refills, Maintenance, 02/11/21 11:17:00 EST, Capsule, [facility]/pharmacy #[id number], Partial fill upon patient [...] 11 Refills, Maintenance, 02/21/22 10:35:00 EST, Tablet, [facility]., Partial fill upon patient request if the prescription is for a schedule II opioid drug., 2 tablet By... Start Date: 02/21/22 Status: Ordered duloxetine 60 mg oral enteric coated capsule 2 capsule = 120 mg, By Mouth, Daily, # 60 capsule, 5 Refills, Maintenance, 05/26/22 17:03:00 EST, Capsule, [facility] Partial fill upon patient request. NOT INCREASED DOSE. Please cancel all other Duloxetine scripts, 163, cm, 05/19/22... Start Date: 05/26/22 Status: Ordered empagliflozin 10 mg oral tablet 1 tablet = 10 mg, By Mouth, Daily in AM, # 30 tablet, 5 Refills, Maintenance, 02/20/22 12:04:00 EST, Tablet, [facility]., Partial fill upon patient request if the prescription is for aschedule II opioid drug., 163, cm, 02/11/22 19:19:0... Start Date: 02/20/22 Status: Ordered fluticasone 50 mcg/inh nasal spray See Instructions, USE 1 SPRAY IN BOTH NOSTRILS 2 TIMES A DAY, # 16 mL, 1 Refills, 07/08/21 9:44:00 EDT, [facility] 30, USE 1 SPRAY IN BOTH NOSTRILS 2 TIMES A DAY, 162.5, cm, :49:00 EDT, Height, 85.8, kg, 06/04/21 10:03:00 ES... Start Date: 07/08/21 Status: Ordered ibuprofen 800 mg oral tablet 1, tablet, By Mouth, 3 times a day, PRN, # 90 tablet, Refills 1, Tot. Refills 1, Maintenance, NEEDED FOR PAIN, 04/29/22 11:56:00 EST, Route to Pharmacy Electronically, [facility]., 163, cm, 02/11/22 19:19:00 EST, Height, 83, kg, 11/0... Start Date: 04/29/22 Status: Ordered Januvia 100 mg oral tablet 1 tablet = 100 mg, By Mouth, Daily, # 90 tablet, 3 Refills, Maintenance, 06/18/21 21:04:00 EDT, Tablet, [facility]., 162.5, cm, 06/17/21 13:04:00 EDT, Height, 85.8, kg, 06/04/21 10:03:00 EST, Dry Weight Start Date: 06/18/21 Status: Ordered Lantus 100 u/ml subcutaneous solution = 50 units, Subcutaneous Injection, Daily, # 15 mL, 2 Refills, Maintenance, 01/06/22 12:07:00 EDT, Solution, [facility]., ;, 163, cm, 01/03/22 11:20:00 EDT, Height, 84, kg, 01/02/22 19:36:00 EDT, Dry Weight Start Date: 01/06/22 Status: Ordered lidocaine 5% topical film 1 patch, Topically, Daily, PRN Pain , Mild, remove after 12 hours, # 13 each, 5 Refills, Maintenance, 04/29/22 11:56:00 EST, Film, [facility]., Partial fill upon patient request if theprescription is for a schedule II opioid drug., 1 p... Start Date: 04/29/22 Status: Ordered lisinopril 20 mg oral tablet 20 mg, 1, tablet, By Mouth, Daily, # 90 tablet, Refills 3, Tot. Refills 3, Maintenance, 08/28/21 9:07:00 EDT, Route to Pharmacy Electronically, [facility]., 162, cm, 08/22/21 9:46:00 EDT, Height, 86, kg, 07/23/21 0:58:00 EDT, Dry Weight Start Date: 08/28/21 Status: Ordered Melatonin 10 mg oral tablet 1 tablet = 10 mg, By Mouth, Daily at bedtime, # 30 each, 11 Refills, Maintenance, 04/29/22 11:56:00EST, [facility], Partial fill upon patient request if [...] PRN NEEDED, # 30 capsule, 2 Refills, [facility], 162, cm, 09/06/21 13:04:00 EDT, Height, 86, kg, 07/23/21 0:58:00 EDT, Dry Weight Start Date: 10/02/21 Status: Ordered oxyCODONE 15 mg oral tablet 1 tablet = 15 mg, By Mouth, 3 times a day, on contract at [facility], # 84 tablet, 0 Refills, Maintenance, 05/28/22 14:56:00 EST, [facility]., Partial fill upon patient request if [...] 07/08/21 9:39:00 EDT, Route to Pharmacy Electronically, [facility], 162.5, cm, 07/08/21 8:49:00 EDT, Height, 85.8, kg, 06/04/21 10:0... Start Date: 07/08/21 Status: Ordered tiZANidine 4 mg oral capsule 1 capsule, By Mouth, 3 times a day, # 90 capsule, 0 Refills, Maintenance, 05/26/22 17:03:00 EST, [facility]., 163, cm, 05/19/22 15:33:00 EST, Height, 83, kg, 02/11/22 19:19:00 EST, DryWeight Start Date: 05/26/22 Status: Ordered Trulicity Pen 3 mg/0.5 mL subcutaneous solution See Instructions, INJECT 0.5 ML SUBCUTANEOUSLY EVERY WEEK. 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 Charlene Fabian [phone] Confirmed Active Syncope and collapse Confirmed Active [...] Team Personnel Name: Sindy Bernal RN Position: [facility] RN Member Role: Primary Care Nurse Name: Graciela Thrasher RN Position: [facility] SN RN Member Role: Primary Care Nurse Name: Stevie Angel RN Position: [facility] RN Member Role: Primary Care Nurse Name: Leonora Bai NP Position: [facility] Associate Professional Member Role: PCP Address: Address: [address] [place] [id number] Name: Keily Ortega RN Position: [facility] RN Member Role: Primary Care Nurse Name: Graciela Munroe RN Position: [facility] RN Member Role: Primary Care Nurse Name: Nichole Pichardo RN Position: [facility] RN Member Role: Primary Care Nurse Name: Melvin Whitfield RN Position: [facility] RN Member Role: Primary Care Nurse Name: Phuong Berkowitz RN Position: [facility] RN Member Role: Primary Care Nurse Name: Joselyn Rain RN Position: [facility] Caramel Cutter Helper Member Role: Primary Care Nurse Care Team Related Persons Name: IRA ROMERO Address: home [address] [place] [address] Name: JHON LARSON Address: [address] [place] [address] Name: JHON LARSON Address: [address] [place] [address] Name: GALO CATALAN Name: NANCY CATALAN Address: home [address] [place] [address]
--- OUTSIDE RECORDS SUMMARY | 2023-03-25 08:24 | XMS_ITS | Continuity of Care Document ---
Author Name Unknown Organization [facility] Address [address] [place] [address]- Care Team Providers Care Program Developer Name Role Phone Richardson HIGH RAW SUGAR BOILER, Leonora Pérez Primary Care Physician Encounter [facility] Date(s): 04/01/19 - 04/01/[address] [address]- [facility] Encounter Diagnosis Diabetes mellitus type II, uncontrolled(Final) - 04/01/19 Discharge Disposition: A-D/C Home Attending Physician: Byron Escoto MD Admitting Physician: Byron Escoto MD Referring Physician: Not on Staff, Referring [...] 15:03:51 EDT, Powder, Route to Pharmacy Electronically, [id number], [facility]/pharmacy #[id number] Start Date: 11/15/18 Status: Ordered albuterol [...] USE 1 SPRAY IN BOTH NOSTRILS DAILY, [facility]/pharmacy #[id number] Start Date: 12/01/18 Status: Ordered glipiZIDE [...] HOURS THEN LEAVE OFF FOR 12 HOURS, [facility]/pharmacy #[id number] Start Date: 12/20/18 Status: Ordered lisinopril 10 mg oral tablet 10 mg, 1, tablet, By Mouth, Daily, # 90 tablet, Refills 0, Tot. Refills 0, Maintenance, 04/01/19 8:48:00 EST, Route to Pharmacy Electronically, [facility]/pharmacy #[id number], to replace 2.5mg dose, 163, cm, [...] french, # 120 tablet, 2 Refills, Maintenance, 11/04/18 [...] pain, for 28 days, on contract at [facility]., # 56 tablet, 0 Refills, Acute 04/29/19 8:51:00 EST, 04/01/19 8:51:00 EST, [facility]/pharmacy #[id number], Partial fill uponpatient request, 163, cm, [...] 1 TABLET BY MOUTH EVERYDAY AT BEDTIME, [facility]/pharmacy #[id number] Start Date: 01/27/19 Status: Ordered Senexon-S 2 tablet, By Mouth, Daily at bedtime, 0 Refills, Maintenance, 11/25/18 10:10:49 EDT Start Date: 11/25/18 Status: Ordered tiZANidine 4 mg oral tablet 4 mg, 1, tablet, By Mouth, Every 8 hours, # 90 tablet, Refills 2, Tot. Refills 2, Soft Stop, 03/10/19 12:35:20 EST, Route to Pharmacy Electronically, [id number], [facility]/pharmacy #[id number], 163, cm, 02/28/19 16:57:41 EST, Height, 81,... Start Date: 03/10/19 Status: Ordered Trulicity Pen 0.75 mg/0.5 mL subcutaneous solution 0.5 mL = 0.75 mg, Subcutaneous Injection, Every week, # 2.5 mL, 0 Refills, Maintenance, 04/01/19 8:53:00 EST, Solution, [facility]/pharmacy #[id number], 163, cm, 04/01/19 8:32:00 EST, Height, 84.8, kg, 03/11/19 20:38:00 EST, Dry Weight Start Date: 04/01/19 Status: Ordered Tums 500 mg oral tablet, chewable 500 mg, 1, tablet, Chew, 2 times a day, PRN, # 45 tablet, Refills 0, Tot. Refills 0, Maintenance, as needed for dyspepsia, 10/18/18 15:31:54 EDT, Route to Pharmacy Electronically, [id number], [facility]/pharmacy #[id number] Start Date: 10/18/18 Status: Ordered Urinary [...] MARILIN on CPAP(Confirmed) Active Panic attacks(Confirmed) Active *BHN/BHSARA/Efrem Macdonald-[phone]/Health halfway, active care coordination(Confirmed) Active Acute meniscal tear of right knee(Confirmed) 7 06/2015 Active Tobacco dependence(Confirmed) Active DM2 (diabetes mellitus, type 2)(Confirmed) 04/03/17 Active Incontinence of urine(Confirmed) 8 Active 1surgically repaired November 2015, Dr. Sg MENDEZ 2DJD Lumbar Spine per MRI 3L3-L4 disc herniation per client report 4seen on MRI 10/2016, rec repeat imaging in October 2017 5done in [place] 6seen on CT Abd 09/18/16 at [facility], pending MRI 7surgically repaired July 2015 Dr. Sg MENDEZ 8urge and stress Results Radiology Reports * Exam Date Time Procedure Performing Provider Status 04/01/19 5:30 PM Chest 2 Views Frontal and Lat Thuy Newby; Auth (Verified) Notes: (Chest 2 Views Frontal and Lat) Reason For Exam: DKA;Other: RESULT: Chest 2 Views Frontal and Lat Chest 2 Views Frontal and Lat Reason: Other:; DKA; Clinical Question(s): Other:; Infiltrate; Hx of Present Illness: patient presents with c o increased tiredness for the past week - blood glucose 470 last night and ems today was high - denies being on a research trial for her diabetes - was here 3 weeks ago and is to follow up with her md COMPARISON: 03/10/2019 and 11/15/2018. FINDINGS: LINES AND TUBES: None. LUNGS AND PLEURA: There is a linear opacity in the mid right lower lung lobe. No pleural effusion. No pneumothorax. HEART, MEDIASTINUM AND [place]: Heart is normal in size. Normal mediastinal and hilar contour. BONES AND SOFT TISSUES: No acute abnormality. IMPRESSION: Linear opacity in the right lower lung lobe compatible with atelectasis versus airspace disease. Clinical correlation and follow-up is recommended. WSN: [id number] Dictated By: Laura Hermosillo MD Dictated Date/Time: 04/01/19 5:37 pm Reviewed By: Laura Hermosillo MD Signed By: Laura Hermosillo MD Signed Date/Time: 04/01/19 5:37 pm Transcribed By: WILVER Transcribed Date/Time: 04/01/19 5:35 pm Vital Signs Most recent to oldest [Reference Range]: 1 2 3 Height 158 cm (04/01/19 4:10 PM) Weight 82 kg (04/01/19 4:10 PM) Oxygen Saturation [94-100 %] 99 % (04/01/19 7:56 PM) 97 % (04/01/19 6:26 PM) 94 % (04/01/19 4:10 PM) Pulse Rate [55-90 bpm] 86 bpm (04/01/19 7:56 PM) 83 bpm (04/01/19 6:26 PM) 85 bpm (04/01/19 4:10 PM) Blood Pressure [90-138/55-84 mm Hg] 149/98mm Hg *H* (04/01/19 7:56 PM) 150/103mm Hg *H* (04/01/19 6:26 PM) 132/93mm Hg (04/01/19 4:10 PM) Respiratory Rate [16-30 br/min] 20 br/min (04/01/19 7:56 PM) 18 br/min (04/01/19 6:26 PM) 16 br/min (04/01/19 4:10 PM) Temperature [96.8-100.4 DegF] 98.2 DegF (04/01/19 6:26 PM) 98.1 DegF (04/01/19 4:10 PM) Mode of Delivery (Oxygen) Room air (04/01/19 7:56 PM) Room air (04/01/19 6:26 PM) Room air (04/01/19 4:10 PM) Blood pressure sites Arm, left (04/01/19 7:56 PM) Arm, left (04/01/19 6:26 PM) Arm, left (04/01/19 4:10 PM) Temperature Route Oral (04/01/19 6:26 PM) Oral (04/01/19 4:10 PM) Dry Weight 82 kg (04/01/19 4:10 PM) Weight Obtained Via Patient/family state d (04/01/19 4:10 PM) Dry Weight Obtained Via Patient/family s tated (04/01/19 4:10 PM) Social History Social History Type Response Tobacco Use: Pt states she q uit smoking 1 week ago. Sex Female
--- OUTSIDE RECORDS SUMMARY | 2023-03-25 08:24 | XMS_ITS | Continuity of Care Document ---
Author Name Unknown Organization [facility] Address [address] [place] [address]- Care Team Providers Care Field Human Resources Manager Name Role Phone Aaron GERARDO, Pura Mahajan Primary Care Physician Encounter [facility] Date(s): 01/27/23 - 02/26/23 [facility] [address] [place] [address]- Allergies, Adverse Reactions, Alerts Substance Reaction Severity Status morphine Active gabapentin swelling Active Lyrica dysphagia Active MetFORMIN Hydrochloride ER black tarry stool Active SEROquel body swelling - all over Act tony Immunizations Given and Recorded Vaccine Date Status Refusal Reason [id number] 12y+ bivalent booster vax 01/30/22 Given influenza virus vaccine, inactivated 01/30/22 Give n influenza virus vaccine, inactivated 02/04/21 Give n influenza virus vaccine, inactivated 1 04/19/20 Gi tonio influenza virus vaccine, inactivated 03/12/19 Give n influenza virus vaccine, inactivated 01/19/18 Give n influenza virus vaccine, inactivated 02/16/17 Give n pneumococcal 20-valent conjugate vaccine 12/26/21 Given SARS-CoV-2 mRNA ([id number]) vax 05/14/21 Given SARS-CoV-2 (COVID-19) mRNA BNT-162b2 [...] 09/25/22 17:00:00 EDT, Route to Pharmacy Electronically, [facility], Partial fill upon patient request if the prescription is for a sched... Start Date: 09/25/22 Status: Ordered Advair Diskus 500 mcg-50 mcg inhalation powder 1, inhalation, Inhalation, 2 times a day, rinse mouth and throat after use, # 60 each, Refills 11, Tot. Refills 11, Maintenance, 09/25/22 17:00:00 EDT, Inhaler, Route to Pharmacy Electronically, [id number], [facility]... Start Date: 09/25/22 Status: Ordered albuterol 0.083% inhalation solution 3 mL = 2.5 mg, Neb, Every 4 hours, PRN Wheezing/Shortness of Breath, # 100 each, 11 Refills, Maintenance, 12/26/22 8:14:00 EDT, Inhalation Solution, [facility], Partial fill upon patient request if the prescription is for a schedule II... Start Date: 12/26/22 Status: Ordered All Day Allergy 10 mg oral tablet 1 tablet, By Mouth, Daily, # 90 tablet, 3 Refills, Maintenance, 11/20/22 16:48:00 EDT, [facility], 163, cm, 11/20/22 16:00:00 EDT, Height, 83, kg, 02/11/22 19:19:00 EST, Dry Weight Start Date: 11/20/22 Status: Ordered amLODIPine 5 mg oral tablet 5 mg, 1, tablet, By Mouth, Daily, # 90 tablet, Refills 3, Tot. Refills 3, Maintenance, 04/29/22 11:56:00 EST, Route to Pharmacy Electronically, [facility], Partial fill upon patient request if the prescription is for a schedule II opio... Start Date: 04/29/22 Status: Ordered atorvastatin 40 mg oral tablet 1 tablet = 40 mg, By Mouth, Daily, # 90 tablet, 3 Refills, Maintenance, 09/25/22 16:58:00 EDT, Tablet, [facility] Partial fill upon patient request if the [...] Gm, 2 Refills, Maintenance, 12/26/22 8:13:00 EDT, [facility]., 15, APPLY TOPICALLY TO AFFECTED AREA TWO TIMES A DAY FOR TWO WEEKS, 163, cm, ... Start Date: 12/26/22 Status: Ordered docusate-senna 50 mg-187 mg oral tablet 2 tablet, By Mouth, 2 times a day, PRN Constipation, # 100 tablet, 11 Refills, Maintenance, 08/14/22 16:57:00 EDT, Tablet, [facility]., Partial fill upon patient request if the [...] 3 Refills, Maintenance, 09/25/22 17:01:00 EDT, Tablet, [facility], Partial fill upon patient request if the prescription is for aschedule II opioid drug., 163, cm, 09/25/22 16:20:0... Start Date: 09/25/22 Status: Ordered ibuprofen 800 mg oral tablet 1, tablet, By Mouth, 3 times a day, PRN, # 90 tablet, Refills 1, Tot. Refills 1, Maintenance, NEEDED FOR PAIN, 10/22/22 15:19:00 EDT, Route to Pharmacy Electronically, [facility], 163, cm, 09/25/22 16:20:00 EDT, Height, 83, kg, 11/0... Start Date: 10/22/22 Status: Ordered Januvia 100 mg oral tablet 1 tablet, By Mouth, Daily, # 30 tablet, 11 Refills, Maintenance, 11/26/22 10:02:00 EDT, [facility], 163, cm, 11/20/22 16:00:00 EDT, Height, 83, kg, 02/11/22 19:19:00 EST, Dry Weight Start Date: 11/26/22 Status: Ordered lidocaine 5% topical film 1 patch, Topically, Daily, PRN Pain , Mild, remove after 12 hours, # 13 each, 5 Refills, Maintenance, 09/25/22 16:59:00 EDT, Film, [facility], Partial fill upon patient request if theprescription is for a schedule II opioid drug., 1 p... Start Date: 09/25/22 Status: Ordered lisinopril 20 mg oral tablet 20 mg, 1, tablet, By Mouth, Daily, # 90 tablet, Refills 3, Tot. Refills 3, Maintenance, 11/20/22 16:48:00 EDT, Route to Pharmacy Electronically, [facility], 163, cm, 11/20/22 16:00:00EDT, Height, 83, kg, 02/11/22 19:19:00 EST, Dry Weight Start Date: 11/20/22 Status: Ordered mirtazapine 30 mg oral tablet 1 tablet = 30 mg, By Mouth, Daily at bedtime, # 90 tablet, 1 Refills, Maintenance, 09/25/22 17:00:00 EDT, Tablet, [facility]., Partial fill upon patient request if the prescription is for a schedule II opioid drug., 163, cm, 09/25/22 16... Start Date: 09/25/22 Status: Ordered omeprazole 40 mg oral enteric coated capsule 1 capsule, By Mouth, Daily, PRN NEEDED, # 90 capsule, 1 Refills, Maintenance, 11/25/22 10:53:00 EDT, [facility], 163, cm, 11/20/22 16:00:00 EDT, Height, 83, kg, 02/11/22 19:19:00 EST, Dry Weight Start Date: 11/25/22 Status: Ordered oxyCODONE 15 mg oral tablet 1 tablet = 15 mg, By Mouth, Every 8 hours, PRN Pain , Severe, [employer] checked. Opioid agreement at [facility], # 84 tablet, 0 Refills, Maintenance, 02/18/23 16:52:00 EST, [facility], Partial fill upon patient [...] 01/27/23 9:28:00 EDT, Route to Pharmacy Electronically, [facility]., 163, cm, 11/20/22 16:00:00 EDT, Height, 83, kg... Start Date: 01/27/23 Status: Ordered traZODone 50 mg oral tablet 1/2 TO 1 TABLET, By Mouth, Daily at bedtime, # 30 tablet, Refills 5, Tot. Refills 5, Maintenance, 02/18/23 14:55:00 EST, Route to Pharmacy Electronically, [facility]., 163, cm, 11/20/22 16:00:00 EDT, Height, 83, kg, 02/11/22 19:19:00 ES... Start Date: 02/18/23 Status: Ordered triamcinolone 55 mcg/inh nasal spray 1 sprays = 55 mcg, Nares, Both, Daily, # 1 each, 5 Refills, Maintenance, 08/14/22 16:59:00 EDT, [facility], Partial fill upon patient request if the prescription is for a schedule II opioid drug., 1 sprays Nares, Both Daily, 163, cm, 0... 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 Charlene Fabian [phone] Confirmed Active Syncope and collapse Confirmed Active Tobacco dependence Confirmed Active DM2 (diabetes mellitus, type 2) Confirmed 04/03/17 Active Incontinence of urine 5 Confirmed Active 1on polysomnogram 2seen on MRI 10/2016, rec repeat imaging in October 2017 pain managemnt team/ Dr Diop indicated they thought pain was fibromyalgia 4seen on CT Abd 09/18/16 at [facility], pending MRI 5urge and stress Social History Social History Type Response Smoking Status Current every day sm oker; Type: Cigarettes; Tobacco use times per day: 1/2 ppd; entered on: 12/24/17 Sex Patient Care team information Care Team Personnel Name: Sindy Bernal RN Position: [facility] RN Member Role: Primary Care Nurse Name: Graciela Thrasher RN Position: [facility] SN RN Member Role: Primary Care Nurse Name: Stevie Angel RN Position: [facility] RN Member Role: Primary Care Nurse Name: Keily Ortega RN Position: [facility] RN Member Role: Primary Care Nurse Name: Graciela Munroe RN Position: [facility] RN Member Role: Primary Care Nurse Name: Nichole Pichardo RN Position: [facility] RN Member Role: Primary Care Nurse Name: Melvin Whitfield RN Position: [facility] Nurse Member Role: Primary Care Nurse Name: Phuong Berkowitz RN Position: [facility] RN Member Role: Primary Care Nurse Name: Pura Walker MD Position: [facility] Physician - Primary Care Member Role: PCP Address: Address: [address] [place] [address] Name: Joselyn Rain RN Position: [facility] Hospital House Detective Member Role: Primary Care Nurse Care Team Related Persons Name: IRA ROMERO Address: home [address] [place] [address] Name: JHON LARSON Address: home [address] [place] [address] Name: JHON LARSON Address: home [address] [place] [address] Name: GALO CATALAN Name: NANCY CATALAN Address: home [address] [place] [address]
--- OUTSIDE RECORDS SUMMARY | 2023-03-25 08:25 | XMS_ITS | Continuity of Care Document ---
Author Name Unknown Organization [facility] Address [address] [place] [address]- Care Team Providers Care Luncheonette Manager Name Role Phone Richardson PHOTOENGRAVING APPRENTICE, Leonora Pérez Primary Care Physician [phone] Encounter [facility] Date(s): 08/27/20 - 09/26/20 [facility] [address] [place] [address]- Allergies, Adverse Reactions, Alerts Substance Reaction Severity [...] 14:12:00 EST, Powder, Route to Pharmacy Electronically, [id number], [facility]/pharmacy #[id number], 162.56, cm, 03/27/20 11:36:00... Start [...] 16 mL, 1 Refills, Maintenance, [id number], 30, USE 1 SPRAY IN BOTH NOSTRILS [...] 2 Refills, Maintenance, 08/27/20 11:00:00 EDT, Tablet, [facility]/pharmacy #[id number], 163, cm, 08/15/20 14:23:00 EDT, Height, 84.8, kg, 06/25/20 20:28:00 EDT, Dry Weight Start Date: 08/27/20 Status: Ordered Lantus 100 u/ml subcutaneous solution = 40 units, Subcutaneous Injection, Daily, # 12 mL, 11 Refills, Maintenance, 05/07/20 13:24:00 EST,Solution, [facility]/pharmacy #[id number], increased dose 12/26/19, 162, cm, 04/21/20 [...] 05/07/20 13:30:00 EST, Route to Pharmacy Electronically, [facility]/pharmacy #[id number], 162, cm, 04/21/20 11:33:00 EST, Height, 80, kg, 04/18/20 9:48:00 EST, Dry Weight Start Date: 05/07/20 Status: Ordered loratadine 10 mg oral capsule 1 capsule = 10 mg, By Mouth, Daily, # 40 capsule, 0 Refills, Maintenance, 08/15/20 15:59:00 EDT, Capsule, [facility]/pharmacy #[id number], Partial fill upon patient request if the prescription is for a schedule II opioid drug., 163, cm, 08/15/20 14:23:00 EDT, Heig... Start Date: 08/15/20 Status: Ordered Mapap 325 mg oral tablet 2 tablet = 650 mg, By Mouth, Every 4 hours, PRN for pain, not to exceed 3000 mg/day. instructions in tuvaluan, # 120 tablet, 2 Refills, Maintenance, 11/01/19 15:24:00 EDT, Tablet, [facility]/pharmacy #[id number], 163, cm, 11/01/19 14:40:00 EDT, [...] 2 Refills, Maintenance, 04/05/20 14:08:00 EST, Tablet, [facility]/pharmacy #[id number], Partial fill upon patient request if the prescription is for a schedule II opioid drug., 162.56, cm, ... Start Date: 04/05/20 Status: Ordered omeprazole 40 mg oral enteric coated capsule 1 capsule = 40 mg, By Mouth, Daily, # 90 capsule, 0 Refills, Maintenance, 08/13/20 10:34:00 EDT, ECCapsule, [facility]/pharmacy #[id number], 163, cm, 08/09/20 8:45:00 EDT, [...] 06/04/20 12:46:00 EST, Route to Pharmacy Electronically, [facility]/pharmacy #[id number], 162, cm, 05/24/20 9:01:00 EST, Height, 80, kg, 04/18/20 9:48:00 EST, Dry... Start Date: 06/04/20 Status: Ordered Soma 350 mg oral tablet 350 mg, 1, tablet, By Mouth, 3 times a day, # 9 tablet, Refills 0, Tot. Refills 0, Maintenance, 05/04/20 15:46:00 EST, Route to Pharmacy Electronically, [facility]/pharmacy #[id number], Partial fill upon patient request if the prescription is for a schedule II opi... Start Date: 05/04/20 Status: Ordered Spiriva Respimat 60 ACT 2.5 mcg/inh inhalation aerosol 2 puffs, Inhalation, Daily, # 1 each, 11 Refills, Maintenance, 04/05/20 14:17:00 EST, [facility]/pharmacy #[id number], Partial fill upon patient request [...] 08/16/20 11:59:00 EDT, Route to Pharmacy Electronically, [facility]/pharmacy #[id number], 163, cm, 08/15/20 14:23:00 EDT, [...]
--- OUTSIDE RECORDS SUMMARY | 2023-03-25 08:25 | XMS_ITS | Continuity of Care Document ---
Author Name Unknown Organization [facility] Address [address] [place] [address]- Care Team Providers Care Dish Room Worker Name Role Phone Richardson QUIROZ, Leonora Pérez Primary Care Physician [phone] Encounter [facility] Date(s): 05/13/21 - 06/12/21 [facility] [address] [place], [place] [address] [[email or web address]] Allergies, Adverse Reactions, Alerts Substance Reaction Severity Status morphine Active gabapentin swelling Active Lyrica dysphagia Active SEROquel body swelling - all over Act tony MetFORMIN Hydrochloride ER black tarry stool Active Immunizations Given and Recorded Vaccine Date Status Refusal Reason SARS-CoV-2 mRNA ([id number]) vax 05/14/21 Given influenza virus vaccine, inactivated [...] 05/31/21 15:43:00 EST, Route to Pharmacy Electronically, [facility], Partial fill upon patient request if the prescription is for a sched... Start Date: 05/31/21 Status: Ordered Advair Diskus 500 mcg-50 mcg inhalation powder 1, puffs, Inhalation, 2 times a day, [id number], # 1 each, Refills 5, Tot. Refills 5, Maintenance, 05/15/21 9:20:00 EST, Powder, Route to Pharmacy Electronically, [id number], [facility], 162.5, cm, 05/10/21 14:47... Start Date: 05/15/21 Status: Ordered albuterol 0.083% inhalation solution 3 mL = 2.5 mg, Inhalation, Every 4 hours, PRN for wheezing, # 100 each, 2 Refills, Maintenance, 05/15/21 9:30:00 EST, Solution, [facility], 162.5, cm, 05/10/21 14:47:00 EST, Height, 90.9, kg, 02/02/21 5:59:00 EDT, Dry Weight Start Date: 05/15/21 Status: Ordered amitriptyline 75 mg oral tablet 1 tablet = 75 mg, By Mouth, Daily at bedtime, # 90 tablet, 1 Refills, Maintenance, 05/07/21 10:21:00 EST, Tablet, [facility], Partial fill upon patient request if the prescription is for a schedule II opioid drug., 162.5, cm, 03/22/21... Start Date: 05/07/21 Status: Ordered atorvastatin 20 mg oral tablet 3 tablet = 60 mg, By Mouth, Daily, # 90 tablet, 3 Refills, Maintenance, 04/05/20 14:11:00 EST, Tablet, [facility]/pharmacy #[id number], Partial fill upon patient request if the prescription is for a schedule II opioid drug., 162.56, cm, 03/27/20 11:36:00 EST, Heig... Start Date: 04/05/20 Status: Ordered capsaicin 0.025% topical cream 1 application, Topically, 3 times a day, # 45 Gm, 3 Refills, Maintenance, 11/01/19 15:25:00 EDT, Cream, [facility]/pharmacy #[id number], 1 application Topically 3 times a day, 163, cm, 11/01/19 14:40:00 EDT, Height, 80, kg, 10/29/19 0:29:00 EDT, Dry Weight Start Date: 11/01/19 Status: Ordered cetirizine 10 mg oral tablet 1 tablet = 10 mg, By Mouth, Daily, # 30 tablet, 5 Refills, Maintenance, 06/20/20 13:18:00 EDT, Tablet, [facility]/pharmacy #[id number], 162, cm, 05/24/20 [...] 1 Refills, Maintenance, 12/05/20 12:42:00 EDT, Cream, [facility]/pharmacy #[id number], 1 application Topically [...] 5 Refills, Maintenance, 02/18/21 15:09:00 EST, Capsule, [facility]/pharmacy #[id number], [...] DAY, # 16 mL, 1 Refills, Maintenance, [id number], 30, USE 1 SPRAY IN BOTH NOSTRILS 2 TIMES A DAY, 163, cm, 08/15/20 14:23:00 EDT, Height,84.8, kg, 06/25/20 20:28:00 EDT, Dry Weight Start Date: 09/07/20 Status: Ordered hydrochlorothiazide 12.5 mg oral tablet 1 tablet = 12.5 mg, By Mouth, Daily, TAKE 1 TABLET BY MOUTH EVERY DAY, # 30 capsule, 2 Refills, Maintenance, 05/15/21 9:20:00 EST, [facility], 162.5, cm, 05/10/21 14:47:00 EST, [...] Moderate, 06/05/21 15:55:00 EST,Route to Pharmacy Electronically, [facility]... Start Date: 06/05/21 Stop Date: 07/03/21 [...] 2 Refills, Maintenance, 03/01/21 12:42:00 EST, Tablet, [facility]/pharmacy #[id number], 155, cm, 02/18/21 14:54:00 EST, Height, 90.9, kg, 02/02/21 5:59:00 EDT, DryWeight Start Date: 03/01/21 Status: Ordered Lantus 100 u/ml subcutaneous solution = 40 units, Subcutaneous Injection, Daily, # 12 mL, 2 Refills, Maintenance, 03/01/21 12:42:00 EST, Solution, [facility]/pharmacy #[id number], increased dose 12/26/19, [...] 04/12/21 13:24:00 EST, Route to Pharmacy Electronically, [facility]/pharmacy #[id number], 162.5, cm, 03/22/21 14:58:00 EST, Height, 90.9, kg, 02/02/21 5:59:00 EDT, Dry Weight Start Date: 04/12/21 Status: Ordered loratadine 10 mg oral capsule 1 capsule = 10 mg, By Mouth, Daily, # 40 capsule, 0 Refills, Maintenance, 08/15/20 15:59:00 EDT, Capsule, [facility]/pharmacy #[id number], Partial fill upon patient request if the prescription is for a schedule II opioid drug., 163, cm, 08/15/20 14:23:00 EDT, Heig... Start Date: 08/15/20 Status: Ordered mirabegron 25 mg oral tablet, extended release 1 tablet = 25 mg, By Mouth, Daily, do not crush or chew, # 30 tablet, 11 Refills, Maintenance, 12/31/20 15:58:00 EDT, ER Tablet, [facility]/pharmacy #[id number], Partial fill [...] Refills, Maintenance, 05/09/21 10:45:00 EST, EC Capsule, [facility]., 162.5, cm, 03/22/21 14:58:00 EST, Height, 90.9,kg, 02/02/21 5:59:00 EDT, Dry Weight Start Date: 05/09/21 Status: Ordered oxyCODONE 15 mg oral tablet 1 tablet = 15 mg, By Mouth, 3 times a day, for 28 days, [employer]SP[employer] CHECKED PT ON CONTRACT AT [facility], # 84 tablet, 0 Refills, Acute 06/14/21 10:00:00 EST, 05/17/21 10:00:00 EST, [facility]., Increase to TID 05/10/21, please request... Start [...] 11:37:00 EDT, [id number] 163, cm, 08/15/20 14:23:00 EDT, Height, [...] 04/24/21 8:58:00 EST, Route to Pharmacy Electronically, [facility], 162.5, cm, 03/22/21 14:58:00 EST, Height, 90.9, kg, 02/02/21... Start Date: 04/24/21 Stop Date: 06/19/21 Status: Ordered Trulicity Pen 1.5 mg/0.5 mL subcutaneous solution 0.5 mL = 1.5 mg, Subcutaneous Injection, Every week, # 2.5 mL, 11 Refills, Maintenance, 04/30/21 12:00:00 EST, [facility] upon patient request [...] on CPAP(Confirmed) Active Panic attacks(Confirmed) Active BHN/BHCP [employer] Jb Fabian [phone](Confirmed) Active Syncope and collapse(Confirmed) Active Tobacco dependence(Confirmed) [...]
--- OUTSIDE RECORDS SUMMARY | 2023-03-25 08:25 | XMS_ITS | Continuity of Care Document ---
Author Name Unknown Organization [facility] Address [address] [place] [address]- Care Team Providers Care Dba Developer Name Role Phone Gerry GERARDO, Rashmi Primary Care Physician [phone] [facility]counter [facility] Date(s): 12/17/22 - 01/16/23 [facility] [address] [place] [address]- Allergies, Adverse Reactions, Alerts Substance Reaction Severity Status morphine Active gabapentin swelling Active Lyrica dysphagia Active SEROquel body swelling - all over Act tony MetFORMIN Hydrochloride ER black tarry stool Active Immunizations Given and Recorded Vaccine Date Status Refusal Reason [id number] 12y+ bivalent booster vax 01/30/22 Given influenza virus vaccine, inactivated 01/30/22 Give n influenza virus vaccine, inactivated 02/04/21 Give n influenza virus vaccine, inactivated 1 04/19/20 Gi tonio influenza virus vaccine, inactivated 03/12/19 Give n influenza virus vaccine, inactivated 01/19/18 Give n influenza virus vaccine, inactivated 02/16/17 Give n pneumococcal 20-valent conjugate vaccine 12/26/21 Given SARS-CoV-2 mRNA ([id number]) vax 05/14/21 Given SARS-CoV-2 (COVID-19) mRNA BNT-162b2 vac 2 10/19/20 Given SARS-CoV-2 (COVID-19) mRNA BNT-162b2 vac 09/28/20 Given pneumococcal 23-valent vaccine 03/12/19 Given tetanus/diphtheria/pertussis, acel(Tdap) 07/29/13 Given 1Early/Late Reason: Early/Late Reason: Patient Not Available/Off Unit 2? Unknown: Resend to [facility]. Resend to [facility]. Medications acetaminophen 325 mg oral tablet 650 mg, 2, tablet, By Mouth, 3 times a day, # 100 tablet, Refills 5, Tot. Refills 5, Maintenance, 09/25/22 17:00:00 EDT, Route to Pharmacy Electronically, [facility], Partial fill upon patient request if the prescription is for a sched... Start Date: 09/25/22 Status: Ordered Advair Diskus 500 mcg-50 mcg inhalation powder 1, inhalation, Inhalation, 2 times a day, rinse mouth and throat after use, # 60 each, Refills 11, Tot. Refills 11, Maintenance, 09/25/22 17:00:00 EDT, Inhaler, Route to Pharmacy Electronically, [id number], [facility]... Start Date: 09/25/22 Status: Ordered albuterol 0.083% inhalation solution 3 mL = 2.5 mg, Neb, Every 4 hours, PRN Wheezing/Shortness of Breath, # 100 each, 11 Refills, Maintenance, 12/26/22 8:14:00 EDT, Inhalation Solution, [facility], Partial fill upon patient request if the prescription is for a schedule II... Start Date: 12/26/22 Status: Ordered All Day Allergy 10 mg oral tablet 1 tablet, By Mouth, Daily, # 90 tablet, 3 Refills, Maintenance, 11/20/22 16:48:00 EDT, [facility], 163, cm, 11/20/22 16:00:00 EDT, Height, 83, kg, 02/11/22 19:19:00 EST, Dry Weight Start Date: 11/20/22 Status: Ordered amLODIPine 5 mg oral tablet 5 mg, 1, tablet, By Mouth, Daily, # 90 tablet, Refills 3, Tot. Refills 3, Maintenance, 04/29/22 11:56:00 EST, Route to Pharmacy Electronically, [facility], Partial fill upon patient request if the prescription is for a schedule II opio... Start Date: 04/29/22 Status: Ordered atorvastatin 40 mg oral tablet 1 tablet = 40 mg, By Mouth, Daily, # 90 tablet, 3 Refills, Maintenance, 09/25/22 16:58:00 EDT, Tablet, [facility] Partial [...] tablet, 0 Refills, Maintenance, 07/25/22 17:58:00 EDT, [facility] Partial [...] Gm, 2 Refills, Maintenance, 12/26/22 8:13:00 EDT, [facility] 15, APPLY TOPICALLY TO AFFECTED AREA TWO TIMES A DAY FOR TWO WEEKS, 163, cm, ... Start Date: 12/26/22 Status: Ordered docusate-senna 50 mg-187 mg oral tablet 2 tablet, By Mouth, 2 times a day, PRN Constipation, # 100 tablet, 11 Refills, Maintenance, 08/14/22 16:57:00 EDT, Tablet, [facility] Partial fill upon patient request if the prescription is for a schedule II opioid drug., 2 tablet By... Start Date: 08/14/22 Status: Ordered duloxetine 60 mg oral enteric coated capsule 2 capsule = 120 mg, By Mouth, Daily, # 60 capsule, 11 Refills, Maintenance, 11/20/22 16:48:00 EDT, Capsule, [facility]., Partial fill upon patient request. NOT INCREASED DOSE. Please cancel all other Duloxetine scripts, 163, cm, ... Start Date: 11/20/22 Status: Ordered empagliflozin 10 mg oral tablet 1 tablet = 10 mg, By Mouth, Daily in AM, # 90 tablet, 3 Refills, Maintenance, 09/25/22 17:01:00 EDT, Tablet, [facility]., Partial fill upon patient request [...] 10/22/22 15:19:00 EDT, Route to Pharmacy Electronically, [facility]., 163, cm, 09/25/22 16:20:00 EDT, Height, 83, kg, 11/0... Start Date: 10/22/22 Status: Ordered Januvia 100 mg oral tablet 1 tablet, By Mouth, Daily, # 30 tablet, 11 Refills, Maintenance, 11/26/22 10:02:00 EDT, [facility], 163, cm, 11/20/22 16:00:00 EDT, Height, 83, kg, 02/11/22 19:19:00 EST, Dry Weight Start Date: 11/26/22 Status: Ordered lidocaine 5% topical film 1 patch, Topically, Daily, PRN Pain , Mild, remove after 12 hours, # 13 each, 5 Refills, Maintenance, 09/25/22 16:59:00 EDT, Film, [facility]., Partial fill upon patient request if theprescription is for a schedule II opioid drug., 1 p... Start Date: 09/25/22 Status: Ordered lisinopril 20 mg oral tablet 20 mg, 1, tablet, By Mouth, Daily, # 90 tablet, Refills 3, Tot. Refills 3, Maintenance, 11/20/22 16:48:00 EDT, Route to Pharmacy Electronically, [facility]., 163, cm, 11/20/22 16:00:00EDT, Height, 83, kg, 02/11/22 19:19:00 EST, Dry Weight Start Date: 11/20/22 Status: Ordered mirtazapine 30 mg oral tablet 1 tablet = 30 mg, By Mouth, Daily at bedtime, # 90 tablet, 1 Refills, Maintenance, 09/25/22 17:00:00 EDT, Tablet, [facility]., Partial fill upon patient request if the prescription is for a schedule II opioid drug., 163, cm, 09/25/22 16... Start Date: 09/25/22 Status: Ordered omeprazole 40 mg oral enteric coated capsule 1 capsule, By Mouth, Daily, PRN NEEDED, # 90 capsule, 1 Refills, Maintenance, 11/25/22 10:53:00 EDT, [facility], 163, cm, 11/20/22 16:00:00 EDT, Height, 83, kg, 02/11/22 19:19:00 EST, Dry Weight Start Date: 11/25/22 Status: Ordered oxyCODONE 15 mg oral tablet 1 tablet = 15 mg, By Mouth, 3 times a day, on contract at [facility], # 84 tablet, 0 Refills, Maintenance, 12/23/22 7:56:00 EDT, [facility]., Partial fill upon patient request [...] 11/21/22 15:54:00 EDT, Route to Pharmacy Electronically, [facility], 163, cm, 11/20/22 16:00:00 EDT, Height, 83, kg, 02/11/22 19:19:00 E... Start Date: 11/21/22 Status: Ordered traZODone 50 mg oral tablet 1/2 TO 1 TABLET, By Mouth, Daily at bedtime, # 30 tablet, Refills 5, Maintenance, 08/29/22 11:31:00EDT, Route to Pharmacy Electronically, [facility], 163, cm, 08/14/22 16:50:00 EDT, Height, 83, kg, 02/11/22 19:19:00 EST, Dry Weight Start Date: 08/29/22 Status: Ordered triamcinolone 55 mcg/inh nasal spray 1 sprays = 55 mcg, Nares, Both, Daily, # 1 each, 5 Refills, Maintenance, 08/14/22 16:59:00 EDT, [facility], Partial fill upon patient request if the prescription is for a schedule II opioid drug., 1 sprays Nares, Both Daily, 163, cm, 0... Start Date: 08/14/22 Status: Ordered Trulicity Pen 1.5 mg/0.5 mL subcutaneous solution = 1.5 mg, Subcutaneous Infusion, Every week, # 4 each, 11 Refills, Maintenance, 11/20/22 16:49:00 EDT, [facility], Partial fill upon [...] Confirmed Active Panic attacks Confirmed Active N/CP Senior Facilities Manager Charlene Fabian [phone] Confirmed Active Syncope and collapse Confirmed Active Tobacco dependence Confirmed Active DM2 (diabetes mellitus, type 2) Confirmed 04/03/17 Active Incontinence of urine 3 Confirmed Active 1seen on MRI 10/2016, rec repeat imaging in October [address] Abd 09/18/16 [place] [facility] [place] 3urge and stress Social History Social History Type Response Smoking Status Current every day sm oker; Type: Cigarettes; Tobacco use times per day: 1/2 ppd; entered on: 12/24/17 Sex Patient Care team information Care Team Personnel Name: Sindy Bernal RN Position: [facility] RN Member Role: Primary Care Nurse Name: Graciela Thrasher RN Position: [facility] SN RN Member Role: Primary Care Nurse Name: Stevie Angel RN Position: [facility] RN Member Role: Primary Care Nurse Name: Rashmi Garrett MD Position: [facility] Physician - Primary Care Member Role: PCP Address: Address: [address] [place] [id number] Name: Keily Ortega RN Position: [facility] RN Member Role: Primary Care Nurse Name: Graciela Munroe RN Position: [facility] RN Member Role: Primary Care Nurse Name: Nichole Pichardo RN Position: [facility] RN Member Role: Primary Care Nurse Name: Melvin Whitfield RN Position: [facility] AMB Nurse Member Role: Primary Care Nurse Name: Phuong Berkowitz RN Position: [facility] RN Member Role: Primary Care Nurse Name: Joselyn Rain RN Position: [facility] Wine Pasteurizer Member Role: Primary Care Nurse Care Team Related Persons Name: IRA ROMERO Address: home [address] [place] [address] Name: JHON LARSON Address: home [address] [place] [address] Name: JHON LARSON Address: [address] [place] [address] Name: GALO CATALAN Name: NANCY CATALAN Address: home [address] [place] [address]
--- OUTSIDE RECORDS SUMMARY | 2023-03-25 08:25 | XMS_ITS | Continuity of Care Document ---
Author Name Unknown Organization [facility] Address [address] [place] [address]- Care Team Providers Care Evaluation Advisor Name Role Phone Richardson WEAVING INSTRUCTOR, Leonora Pérez Primary Care Physician [facility] 03[facility]21 - 04/20/21 [facility] [address] [place] [address]- Allergies, Adverse Reactions, Alerts Substance Reaction Severity [...] 14:12:00 EST, Powder, Route to Pharmacy Electronically, [id number], [facility]/pharmacy #[id number], 162.56, cm, 03/27/20 11:36:00... Start Date: 04/05/20 Status: Ordered albuterol 0.083% inhalation solution 3 mL = 2.5 mg, Inhalation, Every 4 hours, PRN for wheezing, # 100 each, 2 Refills, Maintenance, 08/15/20 10:22:00 EDT, Solution, [facility]/pharmacy #[id number], 163, cm, 08/09/20 8:45:00 EDT, Height, 84.8, kg, 06/25/20 20:28:00 EDT, Dry Weight Start Date: 08/15/20 Status: Ordered amitriptyline 50 mg oral tablet See Instructions, 1.5 tablets by Mouth Daily at bedtime, # 45 each, 1 Refills, 03/21/21 16:11:00 EST, [facility]/pharmacy #[id number], 162.5, cm, 03/14/21 10:31:00 EST, Height, 90.9, kg, 02/02/21 5:59:00 EDT, DryWeight Start Date: 03/21/21 Status: Ordered atorvastatin 20 mg oral tablet 3 tablet = 60 mg, By Mouth, Daily, # 90 tablet, 3 Refills, Maintenance, 04/05/20 14:11:00 EST, Tablet, [facility]/pharmacy #[id number], Partial fill upon patient request if the prescription is for a schedule II opioid drug., 162.56, cm, 03/27/20 11:36:00 EST, Heig... Start Date: 04/05/20 Status: Ordered capsaicin 0.025% topical cream 1 application, Topically, 3 times a day, # 45 Gm, 3 Refills, Maintenance, 11/01/19 15:25:00 EDT, Cream, [facility]/pharmacy #[id number], 1 application Topically 3 times a day, 163, cm, 11/01/19 14:40:00 EDT, Height, 80, kg, 10/29/19 0:29:00 EDT, Dry Weight Start Date: 11/01/19 Status: Ordered cetirizine 10 mg oral tablet 1 tablet = 10 mg, By Mouth, Daily, # 30 tablet, 5 Refills, Maintenance, 06/20/20 13:18:00 EDT, Tablet, [facility]/pharmacy #[id number], 162, cm, 05/24/20 9:01:00 EST, Height, 80, kg, 04/18/20 9:48:00 EST, Dry Weight Start Date: 06/20/20 Status: Ordered cholecalciferol 5000 intl units oral capsule 1 capsule = 125 mcg, By Mouth, Daily, with food, # 100 capsule, 2 Refills, Maintenance, 02/11/21 11:17:00 EST, Capsule, [facility]/pharmacy #[id number], Partial fill upon patient request [...] 1 Refills, Maintenance, 12/05/20 12:42:00 EDT, Cream, [facility]/pharmacy #[id number], 1 application Topically 2 times [...] 5 Refills, Maintenance, 02/18/21 15:09:00 EST, Capsule, [facility]/pharmacy #[id number], Partial fill upon patient request. [...] 16 mL, 1 Refills, Maintenance, [id number], 30, USE 1 SPRAY IN BOTH NOSTRILS [...] 2 Refills, Maintenance, 03/01/21 12:42:00 EST, Tablet, [facility]/pharmacy #[id number], 155, cm, 02/18/21 14:54:00 EST, Height, 90.9, kg, 02/02/21 5:59:00 EDT, DryWeight Start Date: 03/01/21 Status: Ordered Lantus 100 u/ml subcutaneous solution = 40 units, Subcutaneous Injection, Daily, # 12 mL, 2 Refills, Maintenance, 03/01/21 12:42:00 EST, Solution, [facility]/pharmacy #[id number], increased dose 12/26/19, 155, cm, 02/18/21 14:54:00 EST, Height, 90.9, kg, 02/02/21 5:59:00 EDT, Dry Weight Start Date: 03/01/21 Status: Ordered lidocaine 5% topical film 1 patch, Topically, Daily, For chronic radicular back pain, # 30 patch, 5 Refills, Maintenance, 10/11/20 8:15:00 EDT, [facility]/pharmacy #[id number], 1 patch Topically Daily,Instr:For chronic radicular back pain, 163, cm, 08/15/20 14:23:00 EDT, Height, 84.8, kg,... Start Date: 10/11/20 Status: Ordered lisinopril 20 mg oral tablet 20 mg, 1, tablet, By Mouth, Daily, # 90 tablet, Refills 3, Tot. Refills 3, Maintenance, 04/12/21 13:24:00 EST, Route to Pharmacy Electronically, [facility]/pharmacy #[id number], 162.5, cm, 03/22/21 14:58:00 EST, [...] 0 Refills, Maintenance, 08/15/20 15:59:00 EDT, Capsule, [facility]/pharmacy #[id number], Partial fill upon patient request [...] 1 Refills, Maintenance, 01/31/21 14:16:00 EDT, Tablet, [facility], Partial fill upon [...] EST, [id number], Client on contract at [facility],, 162.5, cm, 03/22/21 14:58:00 EST, Height, 90.9, [...] 10/30/20 11:37:00 EDT, Route to Pharmacy Electronically, [facility]/pharmacy #[id number], 163, cm, 08/15/20 14:23:00 EDT, Height, 84.8, kg, 06/25/20 20:28:00 EDT... Start Date: 10/30/20 Status: Ordered Spiriva Respimat 60 ACT 2.5 mcg/inh inhalation aerosol 2 puffs, Inhalation, Daily, # 1 each, 11 Refills, Maintenance, 04/05/20 14:17:00 EST, [facility]/pharmacy #[id number], Partial fill upon patient request [...] 12/05/20 12:45:00 EDT, Route to Pharmacy Electronically, [facility]/pharmacy #[id number], 165, cm, 11/22/20 8:40:00 EDT, [...] on CPAP(Confirmed) Active Panic attacks(Confirmed) Active [facility] Financial Investment Manager Jb Fabian [phone](Confirmed) Active Syncope and collapse(Confirmed) Active Tobacco dependence(Confirmed) Active DM2 (diabetes mellitus, type 2)(Confirmed) 04/03/17 Active Incontinence of urine(Confirmed) 3 Active 1seen on MRI 10/2016, rec repeat imaging in October [address] Abd 09/18/16 at [facility] [place], pending MRI 3urge and stress Social History Social History Type Response Smoking Status Current every day sm oker; Type: Cigarettes; Tobacco use times per day: 1/2 ppd; entered on: 12/24/17 Sex
--- OUTSIDE RECORDS SUMMARY | 2023-03-25 08:25 | XMS_ITS | Continuity of Care Document ---
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 [...] 16 mL, 1 Refills, Maintenance, [id number], 30, USE 1 SPRAY IN BOTH NOSTRILS [...] 2 Refills, Maintenance, 08/27/20 11:00:00 EDT, Tablet, [facility]/pharmacy #[id number], 163, cm, 08/15/20 14:23:00 EDT, Height, 84.8, kg, 06/25/20 20:28:00 EDT, Dry Weight Start Date: 08/27/20 Status: Ordered Lantus 100 u/ml subcutaneous solution = 40 units, Subcutaneous Injection, Daily, # 12 mL, 11 Refills, Maintenance, 05/07/20 13:24:00 EST,Solution, [facility]/pharmacy #[id number], increased dose 12/26/19, 162, [...] 05/07/20 13:30:00 EST, Route to Pharmacy Electronically, [facility]/pharmacy #[id number], 162, cm, 04/21/20 11:33:00 EST, Height, 80, kg, 04/18/20 9:48:00 EST, Dry Weight Start Date: 05/07/20 Status: Ordered loratadine 10 mg oral capsule 1 capsule = 10 mg, By Mouth, Daily, # 40 capsule, 0 Refills, Maintenance, 08/15/20 15:59:00 EDT, Capsule, [facility]/pharmacy #[id number], Partial fill upon patient request if the prescription is for a schedule II opioid drug., 163, cm, 08/15/20 14:23:00 EDT, Heig... Start Date: 08/15/20 Status: Ordered Mapap 325 mg oral tablet 2 tablet = 650 mg, By Mouth, Every 4 hours, PRN for pain, not to exceed 3000 mg/day. instructions in indonesian, # 120 tablet, 2 Refills, Maintenance, 11/01/19 15:24:00 EDT, Tablet, [facility]/pharmacy #[id number], 163, cm, 11/01/19 14:40:00 [...] 2 Refills, Maintenance, 04/05/20 14:08:00 EST, Tablet, [facility]/pharmacy #[id number], Partial fill upon patient request if the prescription is for a schedule II opioid drug., 162.56, cm, ... Start Date: 04/05/20 Status: Ordered omeprazole 40 mg oral enteric coated capsule 1 capsule = 40 mg, By Mouth, Daily, # 90 capsule, 0 Refills, Maintenance, 08/13/20 10:34:00 EDT, ECCapsule, [facility]/pharmacy #[id number], 163, cm, 08/09/20 8:45:00 [...] 06/04/20 12:46:00 EST, Route to Pharmacy Electronically, [facility]/pharmacy #[id number], 162, cm, 05/24/20 9:01:00 EST, Height, 80, kg, 04/18/20 9:48:00 EST, Dry... Start Date: 06/04/20 Status: Ordered Soma 350 mg oral tablet 350 mg, 1, tablet, By Mouth, 3 times a day, # 9 tablet, Refills 0, Tot. Refills 0, Maintenance, 05/04/20 15:46:00 EST, Route to Pharmacy Electronically, [facility]/pharmacy #[id number], Partial fill upon patient request if the prescription is for a schedule II opi... Start Date: 05/04/20 Status: Ordered Spiriva Respimat 60 ACT 2.5 mcg/inh inhalation aerosol 2 puffs, Inhalation, Daily, # 1 each, 11 Refills, Maintenance, 04/05/20 14:17:00 EST, [facility]/pharmacy #[id number], Partial fill upon patient [...] 08/16/20 11:59:00 EDT, Route to Pharmacy Electronically, [facility]/pharmacy #[id number], 163, cm, 08/15/20 14:23:00 [...] 2seen on CT Abd 09/18/16 at [facility] [place], pending MRI 3urge and stress Social History Social History Type Response Tobacco Use: Pt states she q uit smoking 1 week ago. Sex
--- OUTSIDE RECORDS SUMMARY | 2023-03-25 08:25 | XMS_ITS | Continuity of Care Document ---
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 Primary Care Physician Encounter [facility] Date(s): 09/29/22 - 10/29/22 [facility] [address] [place] [address]- Allergies, Adverse Reactions, Alerts Substance Reaction Severity Status morphine Active gabapentin swelling Active MetFORMIN Hydrochloride ER black tarry stool Active Lyrica dysphagia Active SEROquel body swelling - all over Act tony Immunizations Given and Recorded Vaccine Date Status Refusal Reason [id number] 12y+ bivalent booster vax 01/30/22 Given influenza virus vaccine, inactivated 01/30/22 Give n influenza virus vaccine, inactivated 02/04/21 Give n influenza virus vaccine, inactivated 1 04/19/20 Gi tonio influenza virus vaccine, inactivated 03/12/19 Give n influenza virus vaccine, inactivated 01/19/18 Give n influenza virus vaccine, inactivated 02/16/17 Give n pneumococcal 20-valent conjugate vaccine 12/26/21 Given SARS-CoV-2 mRNA ([id number]) vax 05/14/21 Given SARS-CoV-2 (COVID-19) mRNA [id number] [...] 09/25/22 17:00:00 EDT, Route to Pharmacy Electronically, [facility], Partial fill upon patient request if the prescription is for a sched... Start Date: 09/25/22 Status: Ordered Advair Diskus 500 mcg-50 mcg inhalation powder 1, inhalation, Inhalation, 2 times a day, rinse mouth and throat after use, # 60 each, Refills 11, Tot. Refills 11, Maintenance, 09/25/22 17:00:00 EDT, Inhaler, Route to Pharmacy Electronically, [id number], [facility]... Start Date: 09/25/22 Status: Ordered albuterol 0.083% inhalation solution 3 mL = 2.5 mg, 0 Refills, Maintenance, 02/06/22 16:39:00 EDT, Partial fill upon patient request if the prescription is for a schedule II opioid drug. Start Date: 02/06/22 Status: Ordered All Day Allergy 10 mg oral tablet 1 tablet, By Mouth, Daily, # 90 tablet, 1 Refills, Maintenance, 07/25/22 12:30:00 EDT, [facility], 163, cm, 07/11/22 14:19:00 EDT, Height, 83, kg, 02/11/22 19:19:00 EST, Dry Weight Start Date: 07/25/22 Status: Ordered amLODIPine 5 mg oral tablet 5 mg, 1, tablet, By Mouth, Daily, # 90 tablet, Refills 3, Tot. Refills 3, Maintenance, 04/29/22 11:56:00 EST, Route to Pharmacy Electronically, [facility], Partial fill upon patient request if the prescription is for a schedule II opio... Start Date: 04/29/22 Status: Ordered atorvastatin 40 mg oral tablet 1 tablet = 40 mg, By Mouth, Daily, # 90 tablet, 3 Refills, Maintenance, 09/25/22 16:58:00 EDT, Tablet, [facility] Partial fill upon patient request [...] tablet, 0 Refills, Maintenance, 07/25/22 17:58:00 EDT, [facility] Partial fill upon patient request if [...] Gm, 1 Refills, Maintenance, 09/03/22 14:02:00 EDT, [facility], 15, APPLY TOPICALLY TO AFFECTED AREA TWO TIMES A DAY,163, cm, 08/14/22 16:50:00 EDT, Height, 83, kg, 11/... Start Date: 09/03/22 Status: Ordered docusate-senna 50 mg-187 mg oral tablet 2 tablet, By Mouth, 2 times a day, PRN Constipation, # 100 tablet, 11 Refills, Maintenance, 08/14/22 16:57:00 EDT, Tablet, [facility]., Partial fill upon patient request if the prescription is for a schedule II opioid drug., 2 tablet By... Start Date: 08/14/22 Status: Ordered duloxetine 60 mg oral enteric coated capsule 2 capsule = 120 mg, By Mouth, Daily, # 60 capsule, 5 Refills, Maintenance, 05/26/22 17:03:00 EST, Capsule, [facility] Partial fill upon patient request. NOT INCREASED DOSE. Please cancel all other Duloxetine scripts, 163, cm, 05/19/22... Start Date: 05/26/22 Status: Ordered empagliflozin 10 mg oral tablet 1 tablet = 10 mg, By Mouth, Daily in AM, # 90 tablet, 3 Refills, Maintenance, 09/25/22 17:01:00 EDT, Tablet, [facility]., Partial fill upon patient request if [...] EDT, Route to Pharmacy Electronically, [facility] 163, cm, 09/25/22 16:20:00 EDT, Height, 83, kg, 11/0... Start Date: 10/22/22 Status: Ordered lidocaine 5% topical film 1 patch, Topically, Daily, PRN Pain , Mild, remove after 12 hours, # 13 each, 5 Refills, Maintenance, 09/25/22 16:59:00 EDT, Film, [facility]., Partial fill upon patient request if theprescription is for a schedule II opioid drug., 1 p... Start Date: 09/25/22 Status: Ordered lisinopril 20 mg oral tablet 20 mg, 1, tablet, By Mouth, Daily, # 90 tablet, Refills 1, Tot. Refills 1, Maintenance, 07/25/22 12:31:00 EDT, Route to Pharmacy Electronically, [facility], 163, cm, 07/11/22 14:19:00EDT, Height, 83, kg, 02/11/22 19:19:00 EST, Dry Weight Start Date: 07/25/22 Status: Ordered mirtazapine 30 mg oral tablet 1 tablet = 30 mg, By Mouth, Daily at bedtime, # 90 tablet, 1 Refills, Maintenance, 09/25/22 17:00:00 EDT, Tablet, [facility], Partial fill upon patient request if the prescription is for a schedule II opioid drug., 163, cm, 09/25/22 16... Start Date: 09/25/22 Status: Ordered omeprazole 40 mg oral enteric coated capsule 1 capsule, By Mouth, Daily, PRN NEEDED, # 30 capsule, 2 Refills, 08/26/22 13:27:00 EDT, [facility], 163, cm, 08/14/22 16:50:00 EDT, Height, 83, kg, 02/11/22 19:19:00 EST, Dry Weight Start Date: 08/26/22 Status: Ordered oxyCODONE 15 mg oral tablet 1 tablet = 15 mg, By Mouth, 3 times a day, on contract at [facility], # 84 tablet, 0 Refills, Maintenance, 10/24/22 11:04:00 EDT, [facility], Partial fill upon patient [...] 90 capsule, 1 Refills, Maintenance,09/25/22 16:54:00 EDT, [facility], 163, cm, 09/25/22 16:20:00 EDT, Height, 83, kg, 02/11/22 19:19:00 EST, Dry Weight Start Date: 09/25/22 Status: Ordered traZODone 50 mg oral tablet 1/2 TO 1 TABLET, By Mouth, Daily at bedtime, # 30 tablet, Refills 5, Maintenance, 08/29/22 11:31:00EDT, Route to Pharmacy Electronically, [facility], 163, cm, 08/14/22 16:50:00 EDT, Height, 83, kg, 02/11/22 19:19:00 EST, Dry Weight Start Date: 08/29/22 Status: Ordered triamcinolone 55 mcg/inh nasal spray 1 sprays = 55 mcg, Nares, Both, Daily, # 1 each, 5 Refills, Maintenance, 08/14/22 16:59:00 EDT, [facility], Partial fill upon patient request if the prescription is for a schedule II opioid drug., 1 sprays Nares, Both Daily, 163, cm, 0... 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 [phone] Confirmed Active Syncope and collapse Confirmed Active [...] Team Personnel Name: Sindy Bernal RN Position: [facility] RN Member Role: Primary Care Nurse Name: Graciela Thrasher RN Position: [facility] RN Member Role: Primary Care Nurse Name: Stevie Angel RN Position: [facility] RN Member Role: Primary Care Nurse Name: Leonora Bai NP Position: [facility] PCO Associate Professional Member Role: PCP Address: Address: [address] [place] [id number] Name: Keily Ortega RN Position: [facility] RN Member Role: Primary Care Nurse Name: Nichole Pichardo RN Position: [facility] RN Member Role: Primary Care Nurse Name: Melvin Whitfield RN Position: [facility] AMB Nurse Member Role: Primary Care Nurse Name: Phuong Berkowitz RN Position: [facility] RN Member Role: Primary Care Nurse Name: Joselyn Rain RN Position: [facility] Hospital Pot Fireman Member Role: Primary Care Nurse Care Team Related Persons Name: NICK IRA Address: home [address] [place] [address] Name: JHON LARSON Address: home [address] [place] [address] Name: JHON LARSON Address: [address] [place] [address] Name: GALO CATALAN Name: NANCY CATALAN Address: home [address] [place] [address]
--- OUTSIDE RECORDS SUMMARY | 2023-03-25 08:25 | XMS_ITS | Continuity of Care Document ---
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 Start Date: 04/05/20 Status: Ordered albuterol 0.083% inhalation solution 3 mL = 2.5 mg, Inhalation, Every 4 hours, PRN for wheezing, # 100 each, 5 Refills, Maintenance, 06/27/19 14:32:00 EDT, Solution, [facility]/pharmacy #[id number], 160, cm, 06/01/19 14:08:00 EST, Height, 88.9, kg, 05/23/19 22:09:00 EST, Dry Weight Start Date: 06/27/19 Status: Ordered amitriptyline 50 mg oral tablet 1 tablet = 50 mg, By Mouth, Daily at bedtime, # 30 tablet, 5 Refills, Maintenance, 12/30/19 18:21:00 EDT, Tablet, [facility]/pharmacy #[id number], 163, cm, 12/26/19 13:58:00 EDT, Height, 80, kg, 10/29/19 0:29:00 EDT, Dry Weight Start Date: 12/30/19 Status: Ordered atorvastatin 20 mg oral tablet 1 tablet = 20 mg, By Mouth, Daily, # 90 tablet, 3 Refills, Maintenance, 04/05/20 14:11:00 EST, Tablet, [facility]/pharmacy #[id number], Partial fill upon patient request if the prescription is for a schedule II opioid drug., 162.56, cm, 03/27/20 11:36:00 EST, Heig... Start Date: 04/05/20 Status: Ordered capsaicin 0.025% topical cream 1 application, Topically, 3 times a day, # 45 Gm, 3 Refills, Maintenance, 11/01/19 15:25:00 EDT, Cream, [facility]/pharmacy #[id number], 1 application Topically 3 times a day, 163, cm, 11/01/19 14:40:00 EDT, Height, 80, kg, 10/29/19 0:29:00 EDT, Dry Weight Start Date: 11/01/19 Status: Ordered cetirizine 10 mg oral tablet 1 tablet = 10 mg, By Mouth, Daily, # 30 tablet, 5 Refills, Maintenance, 12/13/19 18:32:00 EDT, Tablet, [facility]/pharmacy #[id number], 163, cm, 12/13/19 15:57:00 EDT, Height, 80, kg, 10/29/19 0:29:00 EDT, Dry Weight Start Date: 12/13/19 Status: Ordered clonazePAM 0.5 mg oral tablet TAKE 1 TABLET BY MOUTH TWICE A DAY NEEDED Start Date: 06/02/19 Status: Ordered clotrimazole 1% topical cream 1 application, Topically, 2 times a day, # 30 Gm, 1 Refills, Maintenance, 02/03/20 13:47:00 EDT, Cream, [facility]/pharmacy #[id number], 1 application Topically 2 times [...] patch, 5 Refills, Maintenance, 03/09/20 8:53:00 EST, [facility]/pharmacy #[id number], 1 patch Topically Daily,Instr:For chronic radicular back pain, 163, cm, 12/26/19 13:58:00 EDT, Height, 80, kg, 07... Start Date: 03/09/20 Status: Ordered lisinopril 20 mg oral tablet 20 mg, 1, tablet, By Mouth, Daily, # 30 tablet, Refills 11, Tot. Refills 11, Maintenance, 05/07/20 13:30:00 EST, Route to Pharmacy Electronically, [facility]/pharmacy #[id number], 162, cm, 04/21/20 11:33:00 EST, Height, 80, kg, 04/18/20 9:48:00 EST, Dry Weight Start Date: 05/07/20 Status: Ordered Mapap 325 mg oral tablet 2 tablet = 650 mg, By Mouth, Every 4 hours, PRN for pain, not to exceed 3000 mg/day. instructions in mohawk, # 120 tablet, 2 Refills, Maintenance, 11/01/19 15:24:00 EDT, Tablet, [facility]/pharmacy #[id number], 163, cm, 11/01/19 14:40:00 EDT, [...] 2 Refills, Maintenance, 04/05/20 14:08:00 EST, Tablet, [facility]/pharmacy #[id number], Partial fill upon patient request if the prescription is for a schedule II opioid drug., 162.56, cm, ... Start Date: 04/05/20 Status: Ordered omeprazole 20 mg oral enteric coated capsule 1 capsule = 20 mg, By Mouth, Daily, Use as little as possible to control symptoms., # 30 capsule, 2Refills, Maintenance, 10/06/19 7:45:00 EDT, EC Capsule, [facility]/pharmacy #[id number], cancel Ranitidine, 160,cm, 09/28/19 8:58:00 [...] Acute 05/31/20 17:54:00 EST, 05/03/20 17:54:00 EST, [facility]/pharmacy #[id number], Partial fill upon patient request if the prescription is for a schedule II opioid drug. Client on c... Start Date: 05/03/20 Stop Date: 05/31/20 Status: Ordered Senna 8.6 mg oral tablet 8.6 mg, 1, tablet, By Mouth, Daily at bedtime, # 100 tablet, Refills 2, Tot. Refills 2, Maintenance, 06/10/19 16:12:00 EST, Route to Pharmacy Electronically, [facility]/pharmacy #[id number], 160, cm, 06/01/19 14:08:00 EST, Height, 88.9, kg, 05/23/19 22:09:00 EST,... Start Date: 06/10/19 Status: Ordered Soma 350 mg oral tablet 350 mg, 1, tablet, By Mouth, 3 times a day, # 9 tablet, Refills 0, Tot. Refills 0, Maintenance, 05/04/20 15:46:00 EST, Route to Pharmacy Electronically, [facility]/pharmacy #[id number], Partial fill upon patient request if the prescription is for a schedule II opi... Start Date: 05/04/20 Status: Ordered Spiriva Respimat 60 ACT 2.5 mcg/inh inhalation aerosol 2 puffs, Inhalation, Daily, # 1 each, 11 Refills, Maintenance, 04/05/20 14:17:00 EST, [facility]/pharmacy #[id number], Partial fill upon patient request if the prescription is for a schedule II opioid drug., 162.56, cm, 03/27/20 11:36:00 EST, Height, 81.81, kg, 12... Start Date: 04/05/20 Status: Ordered tiZANidine 4 mg oral tablet 4 mg, 1, tablet, By Mouth, Every 8 hours, PRN, # 84 tablet, Refills 1, Tot. Refills 1, Maintenance,Spasm, 05/03/20 11:26:00 EST, Route to Pharmacy Electronically, [facility]/pharmacy #[id number], 162, cm, 04/21/20 11:33:00 EST, [...]
--- OUTSIDE RECORDS SUMMARY | 2023-03-25 08:25 | XMS_ITS | Continuity of Care Document ---
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 Name Role Phone Richardson QUIROZ, Leonora Pérez Primary Care Physician Encounter [facility] Date(s): 06/25/20 - 06/26/[address] [address]- Encounter Diagnosis DM2 (diabetes mellitus, type 2)(Discharge Diagnosis) - 06/26/20 Discharge Disposition: A-D/C Home Attending Physician: Rozina Rodríguez MD Admitting Physician: Rozina Rodríguez MD Referring Physician: Rozina Rodríguez MD Allergies, Adverse Reactions, Alerts Substance Reaction [...] 14:12:00 EST, Powder, Route to Pharmacy Electronically, [id number], [facility]/pharmacy #[id number], 162.56, cm, 03/27/20 11:36:00... Start [...] 5 Refills, Maintenance, 06/20/20 13:18:00 EDT, Tablet, [facility]/pharmacy #[id number], 162, cm, 05/24/20 9:01:00 EST, Height, 80, kg, 04/18/20 9:48:00 EST, Dry Weight Start Date: 06/20/20 Status: Ordered clonazePAM 0.5 mg oral tablet TAKE 1 TABLET BY MOUTH TWICE A DAY NEEDED Start Date: 06/02/19 Status: Ordered clotrimazole 1% topical cream 1 application, Topically, 2 times a day, # 30 Gm, 1 Refills, Maintenance, 06/04/20 12:46:00 EST, Cream, [facility]/pharmacy #[id number], 1 application Topically 2 times [...] 06/29/20 14:14:00 EDT, 06/19/20 14:14:00 EDT, Capsule, [facility]/pharmacy #[id number], Partial fill upon patient [...] 5 Refills, Maintenance, 12/30/19 18:21:00 EDT, Tablet, [facility]/pharmacy #[id number], 163, cm, 12/26/19 13:58:00 EDT, [...] 05/07/20 13:30:00 EST, Route to Pharmacy Electronically, [facility]/pharmacy #[id number], 162, cm, 04/21/20 11:33:00 EST, Height, 80, kg, 04/18/20 9:48:00 EST, Dry Weight Start Date: 05/07/20 Status: Ordered Mapap 325 mg oral tablet 2 tablet = 650 mg, By Mouth, Every 4 hours, PRN for pain, not to exceed 3000 mg/day. instructions in azeri, # 120 tablet, 2 Refills, Maintenance, 11/01/19 15:24:00 EDT, Tablet, [facility]/pharmacy #[id number], 163, cm, 11/01/19 14:40:00 EDT, [...] 2 Refills, Maintenance, 04/05/20 14:08:00 EST, Tablet, [facility]/pharmacy #[id number], Partial fill upon patient request if the prescription is for a schedule II opioid drug., 162.56, cm, ... Start Date: 04/05/20 Status: Ordered omeprazole 40 mg oral enteric coated capsule 1 capsule = 40 mg, By Mouth, Daily, # 30 capsule, 3 Refills, Maintenance, 05/24/20 9:40:00 EST, EC Capsule, [facility]/pharmacy #[id number], note dose increase, 162, cm, [...] Acute 07/02/20 12:45:00 EDT, 06/04/20 12:45:00 EST, [facility]/pharmacy #[id number], Partial fill upon patient request if the prescription is for a schedule II opioid drug. Client on c... Start Date: 06/04/20 Stop Date: 07/02/20 Status: Ordered Senna 8.6 mg oral tablet 8.6 mg, 1, tablet, By Mouth, Daily at bedtime, # 100 tablet, Refills 2, Tot. Refills 2, Maintenance, 06/04/20 12:46:00 EST, Route to Pharmacy Electronically, [facility]/pharmacy #[id number], 162, cm, 05/24/20 9:01:00 EST, [...] 05/03/20 11:26:00 EST, Route to Pharmacy Electronically, [facility]/pharmacy #[id number], 162, cm, 04/21/20 11:33:00 EST, Height, 80, kg, 04/18/20 9:48:00 ES... Start Date: 05/03/20 Stop Date: 06/28/20 Status: Ordered Tylenol 325 mg oral tablet 975 mg, Tablet, By Mouth, Once, PRN for Pain , Moderate, Routine, 06/25/20 20:59:00 EDT Start Date: 06/25/20 Stop Date: 06/25/20 Status: Completed Urinary Liners Urinary Liners, See Instructions, # [...] [facility], pending MRI 3urge and stress Diagnosis Diagnosis Type Effective Dates Health Status Cl inical Service Informant DM2 (diabetes mellitus, type 2) Discharge Diagnosis 06/26/20 Vital Signs Most recent to oldest [Reference Range]: 1 2 Height 163 cm (06/25/20 8:38 PM) 163 cm (06/25/20 8:28 PM) Weight 84.8 kg (06/25/20 8:28 PM) Oxygen Saturation [94-100 %] 99 % (06/25/20 8:28 PM) Pulse Rate [55-90 bpm] 71 bpm (06/25/20 8:28 PM) Body Mass Index [18.5-24.99] 31.92 *>HHI* (06/25/20 8:28 PM) Blood Pressure [90-138/55-84 mm Hg] 123/ 98mm Hg (06/25/20 8:28 PM) Respiratory Rate [16-30 br/min] 16 br/mi n (06/25/20 10:03 PM) 18 br/min (06/25/20 8:28 PM) Temperature [96.8-100.4 DegF] 98.4 DegF (06/25/20 8:28 PM) Mode of Delivery (Oxygen) Room air (06/25/20 8:28 PM) Blood pressure sites Arm, left (06/25/20 8:28 PM) Temperature Route Oral (06/25/20 8:28 PM) Dry Weight 84.8 kg (06/25/20 8:28 PM) Weight Obtained Via Standing scale (06/25/20 8:28 PM) Dry Weight Obtained Via Standing scale (06/25/20 8:28 PM) Social History Social History Type Response Tobacco Use: Pt states she q uit smoking 1 week ago. Sex
--- OUTSIDE RECORDS SUMMARY | 2023-03-25 08:25 | XMS_ITS | Continuity of Care Document ---
Author Name Unknown Organization [facility] Address [address] [place] [address]- Care Team Providers Care Operators School Manager Name Role Phone Richardson COMBUSTION ANALYST, Leonora Pérze Primary Care Physician [facility]counter [facility] Date(s): 05/13/22 - 06/12/22 [facility] [address] [place] [address]- Allergies, Adverse Reactions, Alerts Substance Reaction Severity Status morphine Active gabapentin swelling Active Lyrica dysphagia Active SEROquel body swelling - all over Act tony MetFORMIN Hydrochloride ER black tarry stool Active Immunizations Given and Recorded Vaccine Date Status Refusal Reason [id number] 12y+ bivalent booster vax 01/30/22 Given influenza virus vaccine, inactivated 01/30/22 Give n influenza virus vaccine, inactivated 02/04/21 Give n influenza virus vaccine, inactivated 1 04/19/20 Gi tonio influenza virus vaccine, inactivated 03/12/19 Give n influenza virus vaccine, inactivated 01/19/18 Give n influenza virus vaccine, inactivated 02/16/17 Give n pneumococcal 20-valent conjugate vaccine 12/26/21 Given SARS-CoV-2 mRNA ([id number]) vax 05/14/21 Given SARS-CoV-2 (COVID-19) mRNA BNT-162b2 vac 2 10/19/20 Given SARS-CoV-2 (COVID-19) mRNA BNT-162b2 vac 09/28/20 Given pneumococcal 23-valent vaccine 03/12/19 Given tetanus/diphtheria/pertussis, acel(Tdap) 07/29/13 Given 1Early/Late Reason: Early/Late Reason: Patient Not Available/Off Unit 2? Unknown: Resend to [facility]. Resend to [facility]. Medications acetaminophen 325 mg oral tablet 650 mg, 2, tablet, By Mouth, 3 times a day, # 100 tablet, Refills 1, Tot. Refills 1, Maintenance, 10/22/21 9:23:00 EDT, Route to Pharmacy Electronically, [facility], Partial fill uponpatient request if [...] tablet, 5 Refills, Maintenance, 04/03/22 11:25:00 EST, [facility], 163, cm, 02/11/22 19:19:00 EST, Height, 83, kg, 02/11/22 19:19:00 EST, Dry Weight Start Date: 04/03/22 Status: Ordered amitriptyline 25 mg oral tablet 25 mg, 1, tablet, By Mouth, Daily at bedtime, # 30 tablet, Refills 2, Tot. Refills 2, Maintenance, 08/30/21 12:06:00 EDT, Route to Pharmacy Electronically, [facility], Partial fill upon patient request if the prescription is for a sche... Start Date: 08/30/21 Status: Ordered amLODIPine 5 mg oral tablet 5 mg, 1, tablet, By Mouth, Daily, # 90 tablet, Refills 3, Tot. Refills 3, Maintenance, 04/29/22 11:56:00 EST, Route to Pharmacy Electronically, [facility], Partial fill upon patient request if the prescription is for a schedule II opio... Start Date: 04/29/22 Status: Ordered cholecalciferol 5000 intl units oral capsule 1 capsule = 125 mcg, By Mouth, Daily, with food, # 100 capsule, 2 Refills, Maintenance, 02/11/21 11:17:00 EST, Capsule, [facility] [...] 11 Refills, Maintenance, 02/21/22 10:35:00 EST, Tablet[facility] Partial fill upon patient request if the prescription is for a schedule II opioid drug., 2 tablet By... Start Date: 02/21/22 Status: Ordered duloxetine 60 mg oral enteric coated capsule 2 capsule = 120 mg, By Mouth, Daily, # 60 capsule, 5 Refills, Maintenance, 05/26/22 17:03:00 EST, Capsule, [facility] Partial fill upon patient request. NOT INCREASED DOSE. Please cancel all other Duloxetine scripts, 163, cm, 05/19/22... Start Date: 05/26/22 Status: Ordered empagliflozin 10 mg oral tablet 1 tablet = 10 mg, By Mouth, Daily in AM, # 30 tablet, 5 Refills, Maintenance, 02/20/22 12:04:00 EST, Tablet, [facility] Partial fill upon patient request if the prescription is for aschedule II opioid drug., 163, cm, 02/11/22 19:19:0... Start Date: 02/20/22 Status: Ordered fluticasone 50 mcg/inh nasal spray See Instructions, USE 1 SPRAY IN BOTH NOSTRILS 2 TIMES A DAY, # 16 mL, 1 Refills, 07/08/21 9:44:00 EDT, [facility]., 30, USE 1 SPRAY IN BOTH NOSTRILS 2 TIMES A DAY, 162.5, cm, :49:00 EDT, Height, 85.8, kg, 06/04/21 10:03:00 ES... Start Date: 07/08/21 Status: Ordered ibuprofen 800 mg oral tablet 1, tablet, By Mouth, 3 times a day, PRN, # 90 tablet, Refills 1, Tot. Refills 1, Maintenance, NEEDED FOR PAIN, 04/29/22 11:56:00 EST, Route to Pharmacy Electronically, [facility], 163, cm, 02/11/22 19:19:00 EST, Height, 83, kg, 11/0... Start Date: 04/29/22 Status: Ordered Januvia 100 mg oral tablet 1 tablet = 100 mg, By Mouth, Daily, # 90 tablet, 3 Refills, Maintenance, 06/18/21 21:04:00 EDT, Tablet, [facility]., 162.5, cm, 06/17/21 13:04:00 EDT, Height, 85.8, kg, 06/04/21 10:03:00 EST, Dry Weight Start Date: 06/18/21 Status: Ordered Lantus 100 u/ml subcutaneous solution = 50 units, Subcutaneous Injection, Daily, # 15 mL, 2 Refills, Maintenance, 01/06/22 12:07:00 EDT, Solution, [facility] ;, 163, cm, 01/03/22 11:20:00 EDT, Height, 84, kg, 01/02/22 19:36:00 EDT, Dry Weight Start Date: 01/06/22 Status: Ordered lidocaine 5% topical film 1 patch, Topically, Daily, PRN Pain , Mild, remove after 12 hours, # 13 each, 5 Refills, Maintenance, 04/29/22 11:56:00 EST, Film, [facility], Partial fill upon patient request if theprescription is for a schedule II opioid drug., 1 p... Start Date: 04/29/22 Status: Ordered lisinopril 20 mg oral tablet 20 mg, 1, tablet, By Mouth, Daily, # 90 tablet, Refills 3, Tot. Refills 3, Maintenance, 08/28/21 9:07:00 EDT, Route to Pharmacy Electronically, [facility]., 162, cm, 08/22/21 9:46:00 EDT, Height, 86, kg, 07/23/21 0:58:00 EDT, Dry Weight Start Date: 08/28/21 Status: Ordered Melatonin 10 mg oral tablet 1 tablet = 10 mg, By Mouth, Daily at bedtime, # 30 each, 11 Refills, Maintenance, 04/29/22 11:56:00EST, [facility], Partial fill upon patient request [...] PRN NEEDED, # 30 capsule, 2 Refills, [facility], 162, cm, 09/06/21 13:04:00 EDT, Height, 86, kg, 07/23/21 0:58:00 EDT, Dry Weight Start Date: 10/02/21 Status: Ordered oxyCODONE 15 mg oral tablet 1 tablet = 15 mg, By Mouth, 3 times a day, on contract at [facility], # 84 tablet, 0 Refills, Maintenance, 05/28/22 14:56:00 EST, [facility], Partial fill upon patient request [...] 07/08/21 9:39:00 EDT, Route to Pharmacy Electronically, [facility], 162.5, cm, 07/08/21 8:49:00 EDT, Height, 85.8, kg, 06/04/21 10:0... Start Date: 07/08/21 Status: Ordered tiZANidine 4 mg oral capsule 1 capsule, By Mouth, 3 times a day, # 90 capsule, 0 Refills, Maintenance, 05/26/22 17:03:00 EST, [facility], 163, cm, 05/19/22 15:33:00 EST, Height, 83, kg, 02/11/22 19:19:00 EST, DryWeight Start Date: 05/26/22 Status: Ordered Trulicity Pen 3 mg/0.5 mL subcutaneous solution See Instructions, INJECT 0.5 ML SUBCUTANEOUSLY EVERY WEEK. ROTATE INJECTION SITES, # 2 mL, 5 Refills, Maintenance, 02/05/22 19:58:00 EDT, [facility], 163, cm, 02/05/22 11:00:00 EDT, Height,84, [...] Active Panic attacks Confirmed Active BHN/BHCP Director Technical Charlene Fabian [phone] Confirmed Active Syncope and collapse Confirmed Active [...] Name: Graciela Thrasher RN Position: [facility] SN RN Member Role: Primary Care Nurse Name: Stevie Angel RN Position: [facility] RN Member Role: Primary Care Nurse Name: Richardson COMBUSTION ANALYST, Leonora Pérez Position: [facility] PCO Associate Professional Member Role: PCP Address: Address: [address] [place] [id number] Name: Keily Ortega RN Position: [facility] RN Member Role: Primary Care Nurse Name: Graciela Munroe RN Position: [facility] RN Member Role: Primary Care Nurse Name: Nichole Pichardo RN Position: [facility] RN Member Role: Primary Care Nurse Name: Melvin Whitfield RN Position: [facility] PCO RN Member Role: Primary Care Nurse Name: Phuong Berkowitz RN Position: [facility] RN Member Role: Primary Care Nurse Name: Joselyn Rain RN Position: [facility] Education Professor Member Role: Primary Care Nurse Care Team Related Persons Name: IRA ROMERO Address: [address] [place] [address] Name: JHON LARSON Address: home [address] [place] [address] Name: JHON LARSON Address: home [address] [place] [address] Name: CATALANGALO VAZQUEZ Name: NANCY CATALAN Address: home [address] [place] [address]
--- OUTSIDE RECORDS SUMMARY | 2023-03-25 08:25 | XMS_ITS | Continuity of Care Document ---
Author Name Unknown Organization [facility] Address [address] [place] [address]- Care Team Providers Care Manager Facility Name Role Phone Richardson CABLE SUPERVISOR, Leonora Pérez Primary Care Physician [phone] Encounter [facility] Date(s): 07/03/22 - 08/02/22 [facility] [address] [place] [address]- Allergies, Adverse Reactions, Alerts Substance Reaction Severity Status morphine Active gabapentin swelling Active Lyrica dysphagia Active SEROquel body swelling - all over Act tony MetFORMIN Hydrochloride ER black tarry stool Active Immunizations Given and Recorded Vaccine Date Status Refusal Reason [id number] 12y+ bivalent booster vax 01/30/22 Given influenza virus vaccine, inactivated 01/30/22 Give n influenza virus vaccine, inactivated 02/04/21 Give n influenza virus vaccine, inactivated 1 04/19/20 Gi tonio influenza virus vaccine, inactivated 03/12/19 Give n influenza virus vaccine, inactivated 01/19/18 Give n influenza virus vaccine, inactivated 02/16/17 Give n pneumococcal 20-valent conjugate vaccine 12/26/21 Given SARS-CoV-2 mRNA ([id number]) vax 05/14/21 Given SARS-CoV-2 (COVID-19) mRNA BNT-162b2 [...] 10/22/21 9:23:00 EDT, Route to Pharmacy Electronically, [facility], Partial fill uponpatient request if the [...] tablet, 1 Refills, Maintenance, 07/25/22 12:30:00 EDT, [facility]., 163, cm, 07/11/22 14:19:00 EDT, Height, 83, kg, 02/11/22 19:19:00 EST, Dry Weight Start Date: 07/25/22 Status: Ordered amLODIPine 5 mg oral tablet 5 mg, 1, tablet, By Mouth, Daily, # 90 tablet, Refills 3, Tot. Refills 3, Maintenance, 04/29/22 11:56:00 EST, Route to Pharmacy Electronically, [facility], Partial fill upon patient request if the prescription is for a schedule II opio... Start Date: 04/29/22 Status: Ordered cholecalciferol 5000 intl units oral capsule 1 capsule = 125 mcg, By Mouth, Daily, with food, # 100 capsule, 2 Refills, Maintenance, 02/11/21 11:17:00 EST, Capsule, [facility]/pharmacy #[id number], Partial fill upon patient request if the prescription is for a schedule II opioid drug., 155, cm, 02/11/21 8:53... Start Date: 02/11/21 Status: Ordered clonazePAM 0.5 mg oral tablet 1 tablet = 0.5 mg, By Mouth, 2 times a day, # 60 tablet, 0 Refills, Maintenance, 07/25/22 17:58:00 EDT, [facility] Partial fill [...] 11 Refills, Maintenance, 02/21/22 10:35:00 EST, Tablet, [facility] Partial fill upon patient request if the prescription is for a schedule II opioid drug., 2 tablet By... Start Date: 02/21/22 Status: Ordered duloxetine 60 mg oral enteric coated capsule 2 capsule = 120 mg, By Mouth, Daily, # 60 capsule, 5 Refills, Maintenance, 05/26/22 17:03:00 EST, Capsule, [facility] Partial fill upon patient request. NOT INCREASED DOSE. Please cancel all other Duloxetine scripts, 163, cm, 05/19/22... Start Date: 05/26/22 Status: Ordered empagliflozin 10 mg oral tablet 1 tablet = 10 mg, By Mouth, Daily in AM, # 30 tablet, 5 Refills, Maintenance, 02/20/22 12:04:00 EST, Tablet, [facility] Partial fill upon patient request if the prescription is for aschedule II opioid drug., 163, cm, 02/11/22 19:19:0... Start Date: 02/20/22 Status: Ordered fluticasone 50 mcg/inh nasal spray See Instructions, USE 1 SPRAY IN BOTH NOSTRILS 2 TIMES A DAY, # 16 mL, 1 Refills, 07/08/21 9:44:00 EDT, [facility] 30, USE 1 SPRAY IN BOTH NOSTRILS 2 TIMES A DAY, 162.5, cm, :49:00 EDT, Height, 85.8, kg, 06/04/21 10:03:00 ES... Start Date: 07/08/21 Status: Ordered ibuprofen 800 mg oral tablet 1, tablet, By Mouth, 3 times a day, PRN, # 90 tablet, Refills 1, Tot. Refills 1, Maintenance, NEEDED FOR PAIN, 07/11/22 15:09:00 EDT, Route to Pharmacy Electronically, [facility], 163, cm, 07/11/22 14:19:00 EDT, Height, 83, kg, 11/0... Start Date: 07/11/22 Status: Ordered Januvia 100 mg oral tablet 1 tablet = 100 mg, By Mouth, Daily, # 90 tablet, 3 Refills, Maintenance, 06/18/21 21:04:00 EDT, Tablet, [facility], 162.5, cm, 06/17/21 13:04:00 EDT, Height, 85.8, kg, 06/04/21 10:03:00 EST, Dry Weight Start Date: 06/18/21 Status: Ordered Lantus 100 u/ml subcutaneous solution = 50 units, Subcutaneous Injection, Daily, # 15 mL, 2 Refills, Maintenance, 01/06/22 12:07:00 EDT, Solution, [facility]., ;, 163, cm, 01/03/22 11:20:00 EDT, Height, 84, kg, 01/02/22 19:36:00 EDT, Dry Weight Start Date: 01/06/22 Status: Ordered lidocaine 5% topical film 1 patch, Topically, Daily, PRN Pain , Mild, remove after 12 hours, # 13 each, 5 Refills, Maintenance, 04/29/22 11:56:00 EST, Film, [facility], Partial fill upon patient request if theprescription is for a schedule II opioid drug., 1 p... Start Date: 04/29/22 Status: Ordered lisinopril 20 mg oral tablet 20 mg, 1, tablet, By Mouth, Daily, # 90 tablet, Refills 1, Tot. Refills 1, Maintenance, 07/25/22 12:31:00 EDT, Route to Pharmacy Electronically, [facility], 163, cm, 07/11/22 14:19:00EDT, Height, 83, kg, 02/11/22 19:19:00 EST, Dry Weight Start Date: 07/25/22 Status: Ordered mirtazapine 30 mg oral tablet 1 tablet = 30 mg, By Mouth, Daily at bedtime, Maintenance, 05/24/19 9:12:00 EST, Tablet Start Date: 05/24/19 Status: Ordered omeprazole 40 mg oral enteric coated capsule 1 capsule, By Mouth, Daily, PRN NEEDED, # 30 capsule, 2 Refills, [facility], 162, cm, 09/06/21 13:04:00 EDT, Height, 86, kg, 07/23/21 0:58:00 EDT, Dry Weight Start Date: 10/02/21 Status: Ordered oxyCODONE 15 mg oral tablet 1 tablet = 15 mg, By Mouth, 3 times a day, on contract at [facility], # 84 tablet, 0 Refills, Maintenance, 07/22/22 9:08:00 EDT, [facility], Partial fill upon patient request if [...] 07/08/21 9:39:00 EDT, Route to Pharmacy Electronically, [facility], 162.5, cm, 07/08/21 8:49:00 EDT, Height, 85.8, kg, 06/04/21 10:0... Start Date: 07/08/21 Status: Ordered tiZANidine 4 mg oral capsule See Instructions, PRN Pain , Severe, take as little as possible to control pain not to exceed 3 doses/day, # 60 capsule, 0 Refills, Maintenance, 07/25/22 17:17:00 EDT, [facility] 163, cm, 07/11/22 14:19:00 EDT, Height, 83, kg, ... Start Date: 07/25/22 Status: Ordered traZODone 50 mg oral tablet See Instructions, 1/2- 1 tablet By Mouth Daily at bedtime, # 30 each, Refills 1, Tot. Refills 1, Maintenance, 06/30/22 14:07:00 EDT, Instructions Replace Required Details, Route to Pharmacy Electronically, [facility], Partial fill upon... Start Date: 06/30/22 Status: Ordered Trulicity Pen 1.5 mg/0.5 mL subcutaneous solution = 1.5 mg, Subcutaneous Infusion, Every week, # 4 each, 5 Refills, Maintenance, 07/25/22 18:12:00 EDT, [facility], Partial fill upon patient request if the prescription is for a schedule II opioid drug., 163, cm, 07/11/22 14:19:00 EDT,... Start Date: 07/25/22 Status: Ordered Trulicity Pen 3 mg/0.5 mL subcutaneous solution See Instructions, INJECT 0.5 ML SUBCUTANEOUSLY EVERY WEEK. ROTATE INJECTION SITES, # 2 mL, 5 Refills, Maintenance, 02/05/22 19:58:00 EDT, [facility], 163, cm, 02/05/22 11:00:00 EDT, Height,84, kg, [...] Confirmed Active Panic attacks Confirmed Active BHN/BHCP Child Study Team Director Charlene Chung Caren [phone] Confirmed Active Syncope and collapse Confirmed Active [...] Name: Sindy Bernal RN Position: [facility] RN Member Role: Primary Care Nurse Name: Graciela Thrasher RN Position: [facility] SN RN Member Role: Primary Care Nurse Name: Stevie Angel RN Position: [facility] RN Member Role: Primary Care Nurse Name: Richardson QUIROZ, Leonora Pérez Position: [facility] PCO Associate Professional Member Role: PCP Address: Address: [address] [place] [address] Name: Keily Ortega RN Position: [facility] RN Member Role: Primary Care Nurse Name: Graciela Munroe RN Position: [facility] RN Member Role: Primary Care Nurse Name: Nichole Pichardo RN Position: [facility] RN Member Role: Primary Care Nurse Name: Melvin Whitfield RN Position: [facility] PCO RN Member Role: Primary Care Nurse Name: Phuong Berkowitz RN Position: [facility] RN Member Role: Primary Care Nurse Name: Joselyn Rain RN Position: [facility] Fireperson Member Role: Primary Care Nurse Care Team Related Persons Name: NICK IRA Address: home [address] [place] [address] Name: JHON LARSON Address: [address] [place] [address] Name: JHON LARSON Address: [address] [place] [address] Name: GALO CATALAN Name: NANCY CATALAN Address: home [address] [place] [address]
--- OUTSIDE RECORDS SUMMARY | 2023-03-25 08:25 | XMS_ITS | Continuity of Care Document ---
Author Name Unknown Organization [facility] Address [address] [place] [address]- Care Team Providers Care Java Tech Lead Name Role Phone Richardson QUIROZ, Leonora Pérez Primary Care Physician [facility] Date[facility]s): 11/02/19 - 12/02/19 [facility] [address] [place] [address]- [facility] Allergies, Adverse Reactions, Alerts Substance Reaction Severity [...] 12:48:00 EST, Powder, Route to Pharmacy Electronically, [id number], [id number], 158, cm, 04/26/19 9:58:00 EST, [...] tablet, 5 Refills, Maintenance, 10/06/19 7:45:00EDT, Tablet, [facility]/pharmacy #[id number], 160, cm, 09/28/19 8:58:00 EDT, [...] 5 Refills, Maintenance, 04/19/19 15:40:00 EST, Tablet, [facility]/pharmacy #[id number], 158, cm, 04/04/19 15:21:00 EST, [...] 3 Refills, Maintenance, 09/02/19 10:23:00 EDT, Tablet, [facility]/pharmacy #[id number], PLEASE CANCEL LISINOPRIL, 160, cm, [...] 5 Refills, Maintenance, 04/28/19 16:05:00 EST, Tablet, [facility]/pharmacy #[id number], 158, cm, 04/28/19 14:51:00 EST, [...] patch, 5 Refills, Maintenance, 06/27/19 14:37:00 EDT, [facility]/pharmacy #[id number], 1 patch Topically [...] persian, # 120 tablet, 2 Refills, Maintenance, 11/01/19 15:24:00 EDT, Tablet, [facility]/pharmacy #[id number], 163, cm, 11/01/19 14:40:00 EDT, Height, 80, kg, ... Start Date: 11/01/19 Status: Ordered metFORMIN 1000 mg oral tablet 1 tablet = 1,000 mg, By Mouth, 2 times a day, # 60 tablet, 2 Refills, Maintenance, 11/09/19 16:12:00 EDT, Tablet, [facility]/pharmacy #[id number], 163, [...] 2Refills, Maintenance, 10/06/19 7:45:00 EDT, EC Capsule, [facility]/pharmacy #[id number], cancel Ranitidine, 160,cm, 09/28/19 8:58:00 EDT, Height, 86.8, kg, ... Start Date: 10/06/19 Status: Ordered oxyCODONE 10 mg oral tablet 1 tablet = 10 mg, By Mouth, 2 times a day, PRN pain, for 28 days, on contract at [facility] # 56 tablet, 0 Refills, Acute 12/05/19 9:20:00 EDT, 11/07/19 9:20:00 EDT, [facility]/pharmacy #[id number], Partial fill uponpatient request, 163, cm, 11/01/19 14:40:00 EDT, He... Start Date: 11/07/19 Stop Date: 12/05/19 Status: Ordered Pen Graham, 31 G x 5 mm BD Ultra [...] 05/30/19 18:52:00 EST, Route to Pharmacy Electronically, [facility]/pharmacy #[id number], 160, cm, 05/30/19 18:08:00 EST, [...] 06/10/19 16:12:00 EST, Route to Pharmacy Electronically, [facility]acy #[id number], 160, cm, 06/01/19 14:08:00 EST, Height, 88.9, kg, 05/23/19 22:09:00 EST,... Start Date: 06/10/19 Status: Ordered Spiriva Respimat 60 ACT 2.5 mcg/inh inhalation aerosol 2 puffs, Inhalation, Daily, # 1 each, 5 Refills, Maintenance, 04/26/19 10:30:00 EST, [facility]/pharmacy #[id number], 158, cm, 04/26/19 9:58:00 EST, Height, 82, kg, 04/01/19 16:10:00 EST, Dry Weight Start Date: 04/26/19 Status: Ordered tiZANidine 4 mg oral tablet 4 mg, 1, tablet, By Mouth, Every 8 hours, # 84 tablet, Refills 1, Tot. Refills 1, Maintenance, 11/24/19 8:16:00 EDT, Route to Pharmacy Electronically, [facility]/pharmacy #[id number], 163, cm, 11/01/19 [...] 5seen on CT Abd 09/18/16 at [facility], pending MRI 6surgically repaired July 2015 Dr. Sg MENDEZ 7urge and stress Social History Social History Type Response Tobacco Use: Pt states she q uit smoking 1 week ago. Sex Female
--- OUTSIDE RECORDS SUMMARY | 2023-03-25 08:25 | XMS_ITS | Continuity of Care Document ---
Author Name Unknown Organization [facility] Address [address] [place] [address]- Care Team Providers Care Workforce Staffing Advisor Name Role Phone Richardson QUIROZ, Leonora Pérez Primary Care Physician [phone] Encounter [facility] Date(s): 08/08/21 - 09/07/21 [facility] [address] [place] [id number]- Attending Physician: Clarence Reynaga Admitting Physician: Clarence Reynaga Referring Physician: Admtr, Alexis8 Allergies, Adverse Reactions, Alerts Substance Reaction Severity Status morphine Active gabapentin swelling Active Lyrica dysphagia Active SEROquel body swelling - all over Act tony MetFORMIN Hydrochloride ER black tarry stool Active Immunizations Given and Recorded Vaccine Date Status Refusal Reason SARS-CoV-2 mRNA ([id number]) vax 05/14/21 Given influenza virus vaccine, inactivated [...] 07/18/21 15:15:00 EDT, Route to Pharmacy Electronically, [facility], Partial fill upon patient request if the prescription is for a sched... Start Date: 07/18/21 Status: Ordered Advair Diskus 500 mcg-50 mcg inhalation powder 1, puffs, Inhalation, 2 times a day, j45.909, # 1 each, Refills 5, Tot. Refills 5, Maintenance, 05/15/21 9:20:00 EST, Powder, Route to Pharmacy Electronically, [id number], [facility], 162.5, cm, 05/10/21 14:47... Start Date: 05/15/21 Status: Ordered albuterol 0.083% inhalation solution 3 mL = 2.5 mg, Inhalation, Every 4 hours, PRN for wheezing, # 100 each, 2 Refills, Maintenance, 05/15/21 9:30:00 EST, Solution, [facility], 162.5, cm, 05/10/21 14:47:00 EST, [...] 5 Refills, Maintenance, 08/28/21 9:07:00 EDT, Tablet, [facility], 162, cm, 08/22/21 9:46:00 EDT, Height, 86, kg, 07/23/21 0:58:00 EDT, Dry Weight Start Date: 08/28/21 Status: Ordered cholecalciferol 5000 intl units oral capsule 1 capsule = 125 mcg, By Mouth, Daily, with food, # 100 capsule, 2 Refills, Maintenance, 02/11/21 11:17:00 EST, Capsule, [facility]/pharmacy #[id number], Partial fill upon patient [...] 1 Refills, Maintenance, 07/08/21 9:45:00 EDT, [facility] P[facility] CANCEL ESTRADIOL VAGINAL CREAM, 1 [...] tablet, 5 Refills, Maintenance, 08/28/21 9:07:00 EDT,Tablet, [facility], Partial fill upon patient [...] capsule, 2 Refills, Maintenance, 08/28/21 9:07:00 EDT, [facility], 162, cm, 08/22/21 9:46:00 [...] Refills, Maintenance, 05/09/21 10:45:00 EST, EC Capsule, [facility], 162.5, cm, 03/22/21 14:58:00 EST, Height, 90.9,kg, 02/02/21 5:59:00 EDT, Dry Weight Start Date: 05/09/21 Status: Ordered OxyCONTIN 30 mg oral tablet, extended release 1 tablet = 30 mg, By Mouth, Every 12 hours, # 56 tablet, 0 Refills, Maintenance, 09/06/21 13:32:00 EDT, ER Tablet, [facility], Partial fill upon patient request if the prescription isfor a schedule II opioid drug. ON contract at [facility],... Start Date: 09/06/21 Stop Date: 10/04/21 Status: Ordered Senna 8.6 mg oral tablet 8.6 mg, 1, tablet, By Mouth, Daily at bedtime, # 100 tablet, Refills 11, Tot. Refills 11, Maintenance, 07/08/21 9:39:00 EDT, Route to Pharmacy Electronically, [facility]., 162.5, cm, 07/08/21 8:49:00 EDT, Height, 85.8, kg, 06/04/21 10:0... Start Date: 07/08/21 Status: Ordered Trulicity Pen 3 mg/0.5 mL subcutaneous solution 0.5 mL = 3 mg, Subcutaneous Injection, Every week, rotate injection sites, # 2 mL, 5 Refills, Maintenance, 09/03/21 15:49:00 EDT, Solution, [facility], Partial fill upon patient request if [...] on CPAP(Confirmed) Active Panic attacks(Confirmed) Active BHN/BHCP Character Actress Jb Fabian [phone](Confirmed) Active Syncope and collapse(Confirmed) Active Tobacco dependence(Confirmed) Active DM2 (diabetes mellitus, type 2)(Confirmed) 04/03/17 Active Incontinence of urine(Confirmed) 3 Active 1seen on MRI 10/2016, rec repeat imaging in October [address] Abd 09/18/16 at [facility], pending MRI 3urge and stress Social History Social History Type Response Smoking Status Current every day kaitlin valle; Type: Cigarettes; Tobacco use times per day: 1/2 ppd; entered on: 12/24/17 Sex
--- OUTSIDE RECORDS SUMMARY | 2023-03-25 08:25 | XMS_ITS | Continuity of Care Document ---
Author Name Unknown Organization [facility] Address [address] [place] [address]- Care Team Providers Care Urban Forester Name Role Phone Richardson QUIROZ, Leonora Pérez Primary Care Physician [phone] Encounter [facility] Date(s): 04/24/20 - 06/06/20 [facility] [address] [place], [place] [address] Attending Physician: Not on Staff, Attending MD Referring Physician: Richardson QUIROZ, Leonora Pérez [...] 14:12:00 EST, Powder, Route to Pharmacy Electronically, [id number], [facility]/pharmacy #[id number], 162.56, cm, 03/27/20 11:36:00... Start Date: 04/05/20 Status: Ordered albuterol 0.083% inhalation solution 3 mL = 2.5 mg, Inhalation, Every 4 hours, PRN for wheezing, # 100 each, 5 Refills, Maintenance, 06/27/19 14:32:00 EDT, Solution, [facility]/pharmacy #[id number], 160, cm, 06/01/19 14:08:00 EST, Height, [...] Refills, Maintenance, 04/05/20 14:11:00 EST, Tablet, [facility]/pharmacy #[id number], Partial fill upon patient [...] 1 Refills, Maintenance, 06/04/20 12:46:00 EST, Cream, [facility]/pharmacy #[id number], 1 application Topically 2 times a [...] 11 Refills, Maintenance, 05/07/20 13:24:00 EST,Solution, [facility]/pharmacy #[id number], increased dose 12/26/19, 162, cm, 04/21/20 [...] 13:30:00 EST, Route to Pharmacy Electronically, [facility]/pharmacy #[id number], 162, cm, 04/21/20 11:33:00 EST, Height, 80, kg, 04/18/20 9:48:00 EST, Dry Weight Start Date: 05/07/20 Status: Ordered Mapap 325 mg oral tablet 2 tablet = 650 mg, By Mouth, Every 4 hours, PRN for pain, not to exceed 3000 mg/day. instructions in luxembourgish, # 120 tablet, 2 Refills, Maintenance, 11/01/19 15:24:00 EDT, Tablet, [facility]/pharmacy #[id number], 163, cm, 11/01/19 14:40:00 EDT, Height, [...] Refills, Maintenance, 04/05/20 14:08:00 EST, Tablet, [facility]/pharmacy #[id number], Partial fill upon patient request if the prescription is for a schedule II opioid drug., 162.56, cm, ... Start Date: 04/05/20 Status: Ordered omeprazole 40 mg oral enteric coated capsule 1 capsule = 40 mg, By Mouth, Daily, # 30 capsule, 3 Refills, Maintenance, 05/24/20 9:40:00 EST, EC Capsule, [facility]/pharmacy #[id number], note dose increase, 162, cm, 05/24/20 [...] Acute 07/02/20 12:45:00 EDT, 06/04/20 12:45:00 EST, [facility]/pharmacy #[id number], Partial fill upon patient request if the prescription is for a schedule II opioid drug. Client on c... Start Date: 06/04/20 Stop Date: 07/02/20 Status: Ordered Senna 8.6 mg oral tablet 8.6 mg, 1, tablet, By Mouth, Daily at bedtime, # 100 tablet, Refills 2, Tot. Refills 2, Maintenance, 06/04/20 12:46:00 EST, Route to Pharmacy Electronically, [facility]/pharmacy #[id number], 162, cm, 05/24/20 9:01:00 EST, Height, 80, kg, 04/18/20 9:48:00 EST, Dry... Start Date: 06/04/20 Status: Ordered Soma 350 mg oral tablet 350 mg, 1, tablet, By Mouth, 3 times a day, # 9 tablet, Refills 0, Tot. Refills 0, Maintenance, 05/04/20 15:46:00 EST, Route to Pharmacy Electronically, [facility]/pharmacy #[id number], Partial fill upon patient request if the prescription is for a schedule II opi... Start Date: 05/04/20 Status: Ordered Spiriva Respimat 60 ACT 2.5 mcg/inh inhalation aerosol 2 puffs, Inhalation, Daily, # 1 each, 11 Refills, Maintenance, 04/05/20 14:17:00 EST, [facility]/pharmacy #[id number], Partial fill upon patient request if the prescription is for a schedule II opioid drug., 162.56, cm, 03/27/20 11:36:00 EST, Height, 81.81, kg, 12... Start Date: 04/05/20 Status: Ordered tiZANidine 4 mg oral tablet 4 mg, 1, tablet, By Mouth, Every 8 hours, PRN, # 84 tablet, Refills 1, Tot. Refills 1, Maintenance,Spasm, 05/03/20 11:26:00 EST, Route to Pharmacy Electronically, [facility]/pharmacy #[id number], 162, cm, 04/21/20 11:33:00 EST, Height, [...] [address] Abd 09/18/16 at [facility], pending MRI 3urge and stress Social History Social History Type Response Tobacco Use: Pt states she q uit smoking 1 week ago. Sex
--- OUTSIDE RECORDS SUMMARY | 2023-03-25 08:25 | XMS_ITS | Continuity of Care Document ---
Author Name Unknown Organization [facility] Address [address] [place] [address]- Care Team Providers Care Behavioral Health Counselor Name Role Phone Richardson QUIROZ, Leonora Pérez Primary Care Physician [facility] Date[facility]s): 11/23/19 - 12/23/19 [facility] [address] [place] [address]- [facility] Allergies, Adverse Reactions, Alerts Substance [...] 12:48:00 EST, Powder, Route to Pharmacy Electronically, [id number], [facility] #[id number], 158, cm, 04/26/19 9:58:00 EST, [...] tablet, 5 Refills, Maintenance, 10/06/19 7:45:00EDT, Tablet, [facility]/pharmacy #[id number], 160, cm, 09/28/19 8:58:00 EDT, Height, 86.8, kg, 07/22/19 15:13:00EDT, Dry Weight Start Date: 10/06/19 Status: Ordered atorvastatin 20 mg oral tablet 1 tablet = 20 mg, By Mouth, Daily, Maintenance, 05/24/19 9:12:00 EST, Tablet Start Date: 05/24/19 Status: Ordered capsaicin 0.025% topical cream 1 application, Topically, 3 times a day, # 45 Gm, 3 Refills, Maintenance, 11/01/19 15:25:00 EDT, Cream, [facility]/pharmacy #[id number], [...] 1 Refills, Maintenance, 12/15/19 9:12:00 EDT, Cream, [facility]/pharmacy #[id number], [...] mL, 11 Refills, Maintenance, 09/05/19 14:10:00 EDT,Solution, [facility]/pharmacy #[id number], 160, cm, 07/22/19 15:08:00 [...] 2 Refills, Maintenance, 11/01/19 15:24:00 EDT, Tablet, [facility]/pharmacy #[id number], 163, cm, 11/01/19 14:40:00 [...] 2Refills, Maintenance, 10/06/19 7:45:00 EDT, EC Capsule, [facility]/pharmacy #[id number], cancel Ranitidine, 160,cm, 09/28/19 8:58:00 EDT, Height, 86.8, kg, ... Start Date: 10/06/19 Status: Ordered Oxycodone = 10 mg, By Mouth, Every 12 hours, PRN Pain , Severe, LBP, 0 Refills, Maintenance, 12/07/19 15:23:00 EDT, Partial fill upon patient request Start Date: 12/07/19 Status: Ordered Pen [place], 31 G x 5 mm BD Ultra [...] 11/24/19 8:16:00 EDT, Route to Pharmacy Electronically, [facility]/pharmacy #[id number], 163, cm, 11/01/19 14:40:00 [...] [address] Abd 09/18/16 at [facility], pending MRI 3urge and stress Social History Social History Type Response Tobacco Use: Pt states she q uit smoking 1 week ago. Sex Female
--- OUTSIDE RECORDS SUMMARY | 2023-03-25 08:25 | XMS_ITS | Continuity of Care Document ---
Author Name Unknown Organization [facility] Address [address] [place] [address]- Care Team Providers Care Portfolio Analyst Name Role Phone Richardson CATALYST RECOVERY OPERATOR, Leonora Pérez Primary Care Physician [facility] Date(s): 01/11/21 - 02/10/21 [facility] [address] [place] [address]- Allergies, Adverse Reactions, Alerts Substance Reaction Severity [...] 19:30:00 EDT, Route to Pharmacy Electronically, [facility]/pharmacy #[id number], Partial fill upon patient request if the prescription is for a schedule II o... Start Date: 01/16/21 Status: Ordered Advair Diskus 500 mcg-50 mcg inhalation powder 1, puffs, Inhalation, 2 times a day, j45.909, # 1 each, Refills 11, Tot. Refills 11, Maintenance, 04/05/20 14:12:00 EST, Powder, Route to Pharmacy Electronically, [id number], [facility]/pharmacy #[id number], 162.56, cm, 03/27/20 [...] bedtime, # 90 tablet, 1 Refills, [facility] STORE [id number], 155, cm, 02/04/21 11:46:00 EDT, Height, 90.9, [...] 1 Refills, Maintenance, [facility] STORE [address], 30, USE 1 SPRAY IN BOTH NOSTRILS 2 TIMES A DAY, 163, cm, 08/15/20 14:23:00 EDT, Height,84.8, kg, 06/25/20 20:28:00 EDT, Dry Weight Start Date: 09/07/20 Status: Ordered Januvia 100 mg oral tablet [...] 84.8, kg,... Start Date: 10/11/20 Status: Ordered loratadine 10 mg oral capsule [...] Acute 02/28/21 14:14:00 EST, 01/31/21 14:14:00 EDT, [facility]., CANCEL OXYCODONE- DO NOT FILL. PRESCRIBING MORPHINE INSTEAD. ON CONTRACT AT [facility], 165, cm,... Start Date: 01/31/21 Stop Date: 02/28/21 Status: Ordered nabumetone 750 mg oral tablet 1 tablet = 750 mg, By Mouth, 2 times a day, Do not take with Naproxen, # 60 tablet, 1 Refills, Maintenance, 01/31/21 14:16:00 EDT, Tablet, [facility]., Partial fill upon patient request if the prescription is for a schedule II opioid drJose. Start Date: 01/31/21 Status: Ordered omeprazole 40 mg oral enteric coated capsule 1 capsule = 40 mg, By Mouth, Daily, PRN Dyspepsia, # 90 capsule, 0 Refills, Maintenance, 01/11/21 13:46:00 EDT, EC Capsule, [facility]/pharmacy #[id number], 165, cm, 12/31/20 14:56:00 EDT, Height, [...] 11 Refills, Maintenance, 04/05/20 14:17:00 EST, [facility]/pharmacy #[id number], Partial fill upon [...] 12:45:00 EDT, Route to Pharmacy Electronically, [facility]/pharmacy #[id number], 165, cm, 11/22/20 8:40:00 EDT, Height, 84.8, kg, 06/25/20 20:28:00... Start Date: 12/05/20 Stop Date: 01/30/21 Status: Ordered Trulicity Pen 0.75 mg/0.5 mL subcutaneous solution 0.5 mL = 0.75 mg, Subcutaneous Injection, Every week, rotate injection sites, # 2 mL, 5 Refills, Maintenance, 10/31/20 15:27:00 EDT, Solution, [facility]/pharmacy #[id number], Partial fill upon patient request ifthe prescription [...]
--- OUTSIDE RECORDS SUMMARY | 2023-03-25 08:25 | XMS_ITS | Continuity of Care Document ---
Author Name Unknown Organization [facility] Address [address] [place] [address]- Care Team Providers Care Shipping Clerk/Admin Name Role Phone Richardson QUIROZ, Leonora Pérez Primary Care Physician [facility] Date[facility]s): 05/09/21 - 06/08/21 [facility] [address], [place] [address] Allergies, Adverse Reactions, Alerts Substance Reaction Severity Status morphine Active gabapentin swelling Active Lyrica dysphagia Active SEROquel body swelling - all over Act tony MetFORMIN Hydrochloride ER black tarry stool Active Immunizations Given and Recorded Vaccine Date Status Refusal Reason SARS-CoV-2 mRNA ([id number]) vax 05/14/21 Given influenza virus vaccine, inactivated [...] 05/31/21 15:43:00 EST, Route to Pharmacy Electronically, [facility], Partial fill upon patient request if the prescription is for a sched... Start Date: 05/31/21 Status: Ordered Advair Diskus 500 mcg-50 mcg inhalation powder 1, puffs, Inhalation, 2 times a day, j45.909, # 1 each, Refills 5, Tot. Refills 5, Maintenance, 05/15/21 9:20:00 EST, Powder, Route to Pharmacy Electronically, [id number], [facility], 162.5, cm, 05/10/21 14:47... Start Date: 05/15/21 Status: Ordered albuterol 0.083% inhalation solution 3 mL = 2.5 mg, Inhalation, Every 4 hours, PRN for wheezing, # 100 each, 2 Refills, Maintenance, 05/15/21 9:30:00 EST, Solution, [facility], 162.5, cm, 05/10/21 14:47:00 EST, Height, 90.9, kg, 02/02/21 5:59:00 EDT, Dry Weight Start Date: 05/15/21 Status: Ordered amitriptyline 75 mg oral tablet 1 tablet = 75 mg, By Mouth, Daily at bedtime, # 90 tablet, 1 Refills, Maintenance, 05/07/21 10:21:00 EST, Tablet, [facility], Partial fill upon patient request if the prescription is for a schedule II opioid drug., 162.5, cm, 03/22/21... Start Date: 05/07/21 Status: Ordered atorvastatin 20 mg oral tablet 3 tablet = 60 mg, By Mouth, Daily, # 90 tablet, 3 Refills, Maintenance, 04/05/20 14:11:00 EST, Tablet, [facility]/pharmacy #[id number], Partial fill [...] Refills, Maintenance, 06/20/20 13:18:00 EDT, Tablet, [facility]/pharmacy #0488, 162, cm, 05/24/20 9:01:00 EST, Height, 80, kg, 04/18/20 9:48:00 EST, Dry Weight Start Date: 06/20/20 Status: Ordered cholecalciferol 5000 intl units oral capsule 1 capsule = 125 mcg, By Mouth, Daily, with food, # 100 capsule, 2 Refills, Maintenance, 02/11/21 11:17:00 EST, Capsule, [facility]/pharmacy #[id number], Partial fill upon [...] 1 Refills, Maintenance, 12/05/20 12:42:00 EDT, Cream, [facility]/pharmacy #0488, 1 application Topically 2 times a [...] 5 Refills, Maintenance, 02/18/21 15:09:00 EST, Capsule, [facility]/pharmacy #0488, Partial fill upon patient request. NOT [...] mL, 1 Refills, Maintenance, [facility] STORE [facility], 30, USE 1 SPRAY IN BOTH NOSTRILS 2 TIMES A DAY, 163, cm, 08/15/20 14:23:00 EDT, Height,84.8, kg, 06/25/20 20:28:00 EDT, Dry Weight Start Date: 09/07/20 Status: Ordered hydrochlorothiazide 12.5 mg oral tablet 1 tablet = 12.5 mg, By Mouth, Daily, TAKE 1 TABLET BY MOUTH EVERY DAY, # 30 capsule, 2 Refills, Maintenance, 05/15/21 9:20:00 EST, [facility], 162.5, cm, 05/10/21 14:47:00 EST, Height, 90.9, kg, 02/02/21 5:59:00 EDT, Dry Weight Start Date: 05/15/21 Status: Ordered ibuprofen 800 mg oral tablet 800 mg, 1, tablet, By Mouth, 3 times a day, PRN, for 14 days, Do not take with Nabumetone, # 42 tablet, Refills 1, Tot. Refills 1, Acute 07/03/21 15:55:00 EDT, Pain , Moderate, 06/05/21 15:55:00 EST,Route to Pharmacy Electronically, [facility]... Start Date: 06/05/21 Stop Date: [...] 2 Refills, Maintenance, 03/01/21 12:42:00 EST, Tablet, [facility]/pharmacy #0488, 155, cm, 02/18/21 14:54:00 EST, Height, 90.9, kg, 02/02/21 5:59:00 EDT, DryWeight Start Date: 03/01/21 Status: Ordered Lantus 100 u/ml subcutaneous solution = 40 units, Subcutaneous Injection, Daily, # 12 mL, 2 Refills, Maintenance, 03/01/21 12:42:00 EST, Solution, [facility]/pharmacy #0488, increased dose 12/26/19, 155, cm, 02/18/21 [...] 04/12/21 13:24:00 EST, Route to Pharmacy Electronically, [facility]/pharmacy #[id number], 162.5, cm, 03/22/21 14:58:00 EST, Height, [...] Refills, Maintenance, 05/09/21 10:45:00 EST, EC Capsule, [facility]., 162.5, cm, 03/22/21 14:58:00 EST, Height, 90.9,kg, 02/02/21 5:59:00 EDT, Dry Weight Start Date: 05/09/21 Status: Ordered oxyCODONE 15 mg oral tablet 1 tablet = 15 mg, By Mouth, 3 times a day, for 28 days, MASSPAT CHECKED PT ON CONTRACT AT [facility], # 84 tablet, 0 Refills, Acute 06/14/21 10:00:00 EST, 05/17/21 10:00:00 EST, [facility]., Increase to TID 05/10/21, please request... [...] 10/30/20 11:37:00 EDT, [id number], 163, cm, 08/15/20 14:23:00 EDT, Height, [...] 04/24/21 8:58:00 EST, Route to Pharmacy Electronically, [facility], 162.5, cm, 03/22/21 14:58:00 EST, Height, 90.9, kg, 02/02/21... Start Date: 04/24/21 Stop Date: 06/19/21 Status: Ordered Trulicity Pen 1.5 mg/0.5 mL subcutaneous solution 0.5 mL = 1.5 mg, Subcutaneous Injection, Every week, # 2.5 mL, 11 Refills, Maintenance, 04/30/21 12:00:00 EST, Solution, [facility], Partial fill upon patient request if [...] on CPAP(Confirmed) Active Panic attacks(Confirmed) Active BHN/BHCP Vice President Of Academic Affairs bJ Fabian [phone](Confirmed) Active Syncope and collapse(Confirmed) Active Tobacco dependence(Confirmed) [...]
--- OUTSIDE RECORDS SUMMARY | 2023-03-25 08:25 | XMS_ITS | Continuity of Care Document ---
Author Name Unknown Organization [facility] Address [address] [place] [address]- Care Team Providers Care Aircraft Cleaning Supervisor Name Role Phone Richardson QUIROZ, Leonora Pérez Primary Care Physician [phone] [facility] Date(s): 04/02/20 - 05/02/20 [facility] [address], [place] [address] Allergies, Adverse Reactions, [...] 14:12:00 EST, Powder, Route to Pharmacy Electronically, [id number], [facility]/pharmacy #[id number], 162.56, cm, 03/27/20 11:36:00... Start Date: 04/05/20 Status: Ordered albuterol 0.083% inhalation solution 3 mL = 2.5 mg, Inhalation, Every 4 hours, PRN for wheezing, # 100 each, 5 Refills, Maintenance, 06/27/19 14:32:00 EDT, Solution, [facility]/pharmacy #0488, 160, cm, 06/01/19 14:08:00 EST, Height, 88.9, kg, 05/23/19 22:09:00 EST, Dry Weight Start Date: 06/27/19 Status: Ordered amitriptyline 50 mg oral tablet 1 tablet = 50 mg, By Mouth, Daily at bedtime, # 30 tablet, 5 Refills, Maintenance, 12/30/19 18:21:00 EDT, Tablet, [facility]/pharmacy #[id number], 163, cm, 12/26/19 13:58:00 EDT, Height, 80, kg, 10/29/19 0:29:00 EDT, Dry Weight Start Date: 12/30/19 Status: Ordered atorvastatin 20 mg oral tablet 1 tablet = 20 mg, By Mouth, Daily, # 90 tablet, 3 Refills, Maintenance, 04/05/20 14:11:00 EST, Tablet, [facility]/pharmacy #[id number], Partial fill upon patient request if the prescription is for a schedule II opioid drug., 162.56, cm, 03/27/20 11:36:00 EST, Heig... Start Date: 04/05/20 Status: Ordered capsaicin 0.025% topical cream 1 application, Topically, 3 times a day, # 45 Gm, 3 Refills, Maintenance, 11/01/19 15:25:00 EDT, Cream, [facility]/pharmacy #[id number], 1 application Topically 3 times a day, 163, cm, 11/01/19 14:40:00 EDT, Height, 80, kg, 10/29/19 0:29:00 EDT, Dry Weight Start Date: 11/01/19 Status: Ordered cetirizine 10 mg oral tablet 1 tablet = 10 mg, By Mouth, Daily, # 30 tablet, 5 Refills, Maintenance, 12/13/19 18:32:00 EDT, Tablet, [facility]/pharmacy #0488, 163, cm, 12/13/19 15:57:00 EDT, Height, 80, kg, 10/29/19 0:29:00 EDT, Dry Weight Start Date: 12/13/19 Status: Ordered clonazePAM 0.5 mg oral tablet TAKE 1 TABLET BY MOUTH TWICE A DAY NEEDED Start Date: 06/02/19 Status: Ordered clotrimazole 1% topical cream 1 application, Topically, 2 times a day, # 30 Gm, 1 Refills, Maintenance, 02/03/20 13:47:00 EDT, Cream, [facility]/pharmacy #[id number], 1 application Topically 2 times a [...] patch, 5 Refills, Maintenance, 03/09/20 8:53:00 EST, [facility]/pharmacy #0488, 1 patch Topically Daily,Instr:For chronic radicular [...] not to exceed 3000 mg/day. instructions in puerto rican, # 120 tablet, 2 Refills, Maintenance, 11/01/19 15:24:00 EDT, Tablet, [facility]/pharmacy #0488, 163, cm, 11/01/19 14:40:00 EDT, Height, [...] 2 Refills, Maintenance, 04/05/20 14:08:00 EST, Tablet, [facility]/pharmacy #[id number], Partial fill upon patient request if the prescription is for a schedule II opioid drug., 162.56, cm, 12/... Start Date: 04/05/20 Status: Ordered omeprazole 20 mg oral enteric coated capsule 1 capsule = 20 mg, By Mouth, Daily, Use as little as possible to control symptoms., # 30 capsule, 2Refills, Maintenance, 10/06/19 7:45:00 EDT, EC Capsule, [facility]/pharmacy #[id number], cancel Ranitidine, 160,cm, 09/28/19 8:58:00 EDT, [...] Acute 05/03/20 14:10:00 EST, 04/05/20 14:10:00 EST, [facility]/pharmacy #[id number], Partial fill upon patient request if the prescription is for a schedule II opioid drug. Client on c... Start Date: 04/05/20 Stop Date: 05/03/20 Status: Ordered Senna 8.6 mg oral tablet 8.6 mg, 1, tablet, By Mouth, Daily at bedtime, # 100 tablet, Refills 2, Tot. Refills 2, Maintenance, 06/10/19 16:12:00 EST, Route to Pharmacy Electronically, [facility]/pharmacy #[id number], 160, cm, 06/01/19 14:08:00 EST, Height, [...] 02/03/20 13:47:00 EDT, Route to Pharmacy Electronically, [facility]/pharmacy #[id number], 163, cm, 12/26/19 13:58:00 EDT, Height, [...]
--- OUTSIDE RECORDS SUMMARY | 2023-03-25 08:25 | XMS_ITS | Continuity of Care Document ---
Author Name Unknown Organization [facility] Address [address] [place] [address]- Care Team Providers Care Manager Retail Store Name Role Phone Aaron GERARDO, Pura Mahajan Primary Care Physician Encounter [facility] Date(s): 01/19/23 - 02/18/23 [facility] [address] [place] [address]- Allergies, Adverse Reactions, Alerts Substance Reaction Severity Status morphine Active gabapentin swelling Active MetFORMIN Hydrochloride ER black tarry stool Active SEROquel body swelling - all over Act tony Lyrica dysphagia Active Immunizations Given and Recorded Vaccine Date Status Refusal Reason [id number] 12y+ bivalent booster vax 01/30/22 Given influenza virus vaccine, inactivated 01/30/22 Give n influenza virus vaccine, inactivated 02/04/21 Give n influenza virus vaccine, inactivated 1 04/19/20 Gi tonio influenza virus vaccine, inactivated 03/12/19 Give n influenza virus vaccine, inactivated 01/19/18 Give n influenza virus vaccine, inactivated 02/16/17 Give n pneumococcal 20-valent conjugate vaccine 12/26/21 Given SARS-CoV-2 mRNA ([id number]) vax 05/14/21 Given SARS-CoV-2 (COVID-19) mRNA BNT-162b2 [...] 09/25/22 17:00:00 EDT, Route to Pharmacy Electronically, [facility], Partial fill upon patient request if the prescription is for a sched... Start Date: 09/25/22 Status: Ordered Advair Diskus 500 mcg-50 mcg inhalation powder 1, inhalation, Inhalation, 2 times a day, rinse mouth and throat after use, # 60 each, Refills 11, Tot. Refills 11, Maintenance, 09/25/22 17:00:00 EDT, Inhaler, Route to Pharmacy Electronically, [id number], [facility]-... Start Date: 09/25/22 Status: Ordered albuterol 0.083% inhalation solution 3 mL = 2.5 mg, Neb, Every 4 hours, PRN Wheezing/Shortness of Breath, # 100 each, 11 Refills, Maintenance, 12/26/22 8:14:00 EDT, Inhalation Solution, [facility], Partial fill upon patient request if the prescription is for a schedule II... Start Date: 12/26/22 Status: Ordered All Day Allergy 10 mg oral tablet 1 tablet, By Mouth, Daily, # 90 tablet, 3 Refills, Maintenance, 11/20/22 16:48:00 EDT, [facility], 163, cm, 11/20/22 16:00:00 EDT, Height, 83, kg, 02/11/22 19:19:00 EST, Dry Weight Start Date: 11/20/22 Status: Ordered amLODIPine 5 mg oral tablet 5 mg, 1, tablet, By Mouth, Daily, # 90 tablet, Refills 3, Tot. Refills 3, Maintenance, 04/29/22 11:56:00 EST, Route to Pharmacy Electronically, [facility], Partial fill upon patient request if the prescription is for a schedule II opio... Start Date: 04/29/22 Status: Ordered atorvastatin 40 mg oral tablet 1 tablet = 40 mg, By Mouth, Daily, # 90 tablet, 3 Refills, Maintenance, 09/25/22 16:58:00 EDT, Tablet, [facility]., Partial fill upon [...] Gm, 2 Refills, Maintenance, 12/26/22 8:13:00 EDT, [facility]., 15, APPLY TOPICALLY TO AFFECTED AREA TWO TIMES A DAY FOR TWO WEEKS, 163, cm, ... Start Date: 12/26/22 Status: Ordered docusate-senna 50 mg-187 mg oral tablet 2 tablet, By Mouth, 2 times a day, PRN Constipation, # 100 tablet, 11 Refills, Maintenance, 08/14/22 16:57:00 EDT, Tablet, [facility]., Partial fill upon [...] 3 Refills, Maintenance, 09/25/22 17:01:00 EDT, Tablet, [facility], Partial fill upon patient request if the prescription is for aschedule II opioid drug., 163, cm, 09/25/22 16:20:0... Start Date: 09/25/22 Status: Ordered ibuprofen 800 mg oral tablet 1, tablet, By Mouth, 3 times a day, PRN, # 90 tablet, Refills 1, Tot. Refills 1, Maintenance, NEEDED FOR PAIN, 10/22/22 15:19:00 EDT, Route to Pharmacy Electronically, [facility], 163, cm, 09/25/22 16:20:00 EDT, Height, 83, kg, 11/0... Start Date: 10/22/22 Status: Ordered Januvia 100 mg oral tablet 1 tablet, By Mouth, Daily, # 30 tablet, 11 Refills, Maintenance, 11/26/22 10:02:00 EDT, [facility], 163, cm, 11/20/22 16:00:00 EDT, Height, 83, kg, 02/11/22 19:19:00 EST, Dry Weight Start Date: 11/26/22 Status: Ordered lidocaine 5% topical film 1 patch, Topically, Daily, PRN Pain , Mild, remove after 12 hours, # 13 each, 5 Refills, Maintenance, 09/25/22 16:59:00 EDT, Film, [facility], Partial fill upon patient request if theprescription is for a schedule II opioid drug., 1 p... Start Date: 09/25/22 Status: Ordered lisinopril 20 mg oral tablet 20 mg, 1, tablet, By Mouth, Daily, # 90 tablet, Refills 3, Tot. Refills 3, Maintenance, 11/20/22 16:48:00 EDT, Route to Pharmacy Electronically, [facility], 163, cm, 11/20/22 16:00:00EDT, Height, 83, kg, 02/11/22 19:19:00 EST, Dry Weight Start Date: 11/20/22 Status: Ordered mirtazapine 30 mg oral tablet 1 tablet = 30 mg, By Mouth, Daily at bedtime, # 90 tablet, 1 Refills, Maintenance, 09/25/22 17:00:00 EDT, Tablet, [facility]., Partial fill upon patient request if the prescription is for a schedule II opioid drug., 163, cm, 09/25/22 16... Start Date: 09/25/22 Status: Ordered omeprazole 40 mg oral enteric coated capsule 1 capsule, By Mouth, Daily, PRN NEEDED, # 90 capsule, 1 Refills, Maintenance, 11/25/22 10:53:00 EDT, [facility], 163, cm, 11/20/22 16:00:00 EDT, Height, 83, kg, 02/11/22 19:19:00 EST, Dry Weight Start Date: 11/25/22 Status: Ordered oxyCODONE 15 mg oral tablet 1 tablet = 15 mg, By Mouth, Every 8 hours, PRN Pain , Severe, [facility] checked. Opioid agreement at [facility], # 84 tablet, 0 Refills, Maintenance, 02/18/23 16:52:00 EST, [facility], Partial fill upon patient request [...] 01/27/23 9:28:00 EDT, Route to Pharmacy Electronically, [facility]., 163, cm, 11/20/22 16:00:00 EDT, Height, 83, kg... Start Date: 01/27/23 Status: Ordered traZODone 50 mg oral tablet 1/2 TO 1 TABLET, By Mouth, Daily at bedtime, # 30 tablet, Refills 5, Tot. Refills 5, Maintenance, 02/18/23 14:55:00 EST, Route to Pharmacy Electronically, [facility]., 163, cm, 11/20/22 16:00:00 EDT, Height, 83, kg, 02/11/22 19:19:00 ES... Start Date: 02/18/23 Status: Ordered triamcinolone 55 mcg/inh nasal spray 1 sprays = 55 mcg, Nares, Both, Daily, # 1 each, 5 Refills, Maintenance, 08/14/22 16:59:00 EDT, [facility], Partial fill upon patient request if the prescription is for a schedule II opioid drug., 1 sprays Nares, Both Daily, 163, cm, 0... 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 [phone] Confirmed Active Syncope and collapse Confirmed Active Tobacco dependence Confirmed Active DM2 (diabetes mellitus, type 2) Confirmed 04/03/17 Active Incontinence of urine 5 Confirmed Active 1on polysomnogram 2seen on MRI 10/2016, rec repeat imaging in October 2017 pain managemnt team/ Dr Diop indicated they thought pain was fibromyalgia 4seen on CT Abd 09/18/16 at [facility], pending MRI 5urge and stress Procedures Procedure Date Related Diagnosis Body Site Status History of lumbar laminectomy 10/2022 Completed Social History Social History Type Response Smoking Status Current every day sm tori; Type: Cigarettes; Tobacco use times per day: 1/2 ppd; entered on: 12/24/17 Sex Patient Care team information Care Team Personnel Name: Sindy Bernal RN Position: [facility] RN Member Role: Primary Care Nurse Name: Graciela Thrasher RN Position: [facility] SN RN Member Role: Primary Care Nurse Name: Stevie Angel RN Position: [facility] RN Member Role: Primary Care Nurse Name: Keily Ortega RN Position: [facility] RN Member Role: Primary Care Nurse Name: Graciela Munroe RN Position: [facility] RN Member Role: Primary Care Nurse Name: Nichole Pichardo RN Position: [facility] RN Member Role: Primary Care Nurse Name: Melvin Whitfield RN Position: [facility] Nurse Member Role: Primary Care Nurse Name: Phuong Berkowitz RN Position: [facility] RN Member Role: Primary Care Nurse Name: Pura Walker MD Position: [facility] Physician - Primary Care Member Role: PCP Address: Address: [address] [place] [address] Name: Joselyn Rain RN Position: [facility] Welding Machine 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
--- OUTSIDE RECORDS SUMMARY | 2023-03-25 08:25 | XMS_ITS | Continuity of Care Document ---
Author Name Unknown Organization [facility] Address [address] [place] [address]- Care Team Providers Care Firewall Security Engineer Name Role Phone Richardson QUIROZ, Leonora Pérez Primary Care Physician [phone] Encounter [facility] Date(s): 05/03/20 - 06/02/20 [facility] [address] [place], [place] [address] Allergies, Adverse Reactions, Alerts Substance Reaction [...] 14:12:00 EST, Powder, Route to Pharmacy Electronically, [id number], [facility]/pharmacy #[id number], 162.56, cm, [...] 5 Refills, Maintenance, 12/13/19 18:32:00 EDT, Tablet, [facility]/pharmacy #[id number], 163, cm, 12/13/19 15:57:00 EDT, [...] mL, 11 Refills, Maintenance, 05/07/20 13:24:00 EST,Solution, [facility]/pharmacy #[id number], increased dose 12/26/19, 162, [...] 05/07/20 13:30:00 EST, Route to Pharmacy Electronically, [facility]/pharmacy #[id number], 162, cm, 04/21/20 11:33:00 EST, Height, 80, kg, 04/18/20 9:48:00 EST, Dry Weight Start Date: 05/07/20 Status: Ordered Mapap 325 mg oral tablet 2 tablet = 650 mg, By Mouth, Every 4 hours, PRN for pain, not to exceed 3000 mg/day. instructions in frisian, # 120 tablet, 2 Refills, Maintenance, 11/01/19 [...] Refills, Maintenance, 05/24/20 9:40:00 EST, EC Capsule, [facility]/pharmacy #[id number], note dose increase, [...]
--- OUTSIDE RECORDS SUMMARY | 2023-03-25 08:26 | XMS_ITS | Continuity of Care Document ---
Author Name Unknown Organization [facility] Address [address] [place] [address]- Care Team Providers Care Aviation Electrical Technician Name Role Phone Aaron GERARDO, Pura Mahajan Primary Care Physician Encounter [facility] Date(s): 12/29/22 - 01/28/23 [facility] [address] [place] [address]- Allergies, Adverse Reactions, Alerts Substance Reaction Severity Status morphine Active gabapentin swelling Active SEROquel body swelling - all over Act tony MetFORMIN Hydrochloride ER black tarry stool Active Lyrica dysphagia Active Immunizations Given and Recorded Vaccine Date Status Refusal Reason [id number] 12y+ bivalent booster vax 01/30/22 Given influenza virus vaccine, inactivated 01/30/22 Give n influenza virus vaccine, inactivated 02/04/21 Give n influenza virus vaccine, inactivated 1 04/19/20 Gi tonio influenza virus vaccine, inactivated 03/12/19 Give n influenza virus vaccine, inactivated 01/19/18 Give n influenza virus vaccine, inactivated 02/16/17 Give n pneumococcal 20-valent conjugate vaccine 12/26/21 Given SARS-CoV-2 mRNA ([id number]-[id number]-dlifl) vax 05/14/21 Given SARS-CoV-2 (COVID-19) mRNA BNT-162b2 [...] 09/25/22 17:00:00 EDT, Route to Pharmacy Electronically, [facility], Partial fill upon patient request if the prescription is for a sched... Start Date: 09/25/22 Status: Ordered Advair Diskus 500 mcg-50 mcg inhalation powder 1, inhalation, Inhalation, 2 times a day, rinse mouth and throat after use, # 60 each, Refills 11, Tot. Refills 11, Maintenance, 09/25/22 17:00:00 EDT, Inhaler, Route to Pharmacy Electronically, [id number], [facility]-... Start Date: 09/25/22 Status: Ordered albuterol 0.083% inhalation solution 3 mL = 2.5 mg, Neb, Every 4 hours, PRN Wheezing/Shortness of Breath, # 100 each, 11 Refills, Maintenance, 12/26/22 8:14:00 EDT, Inhalation Solution, [facility], Partial fill upon patient request if the prescription is for a schedule II... Start Date: 12/26/22 Status: Ordered All Day Allergy 10 mg oral tablet 1 tablet, By Mouth, Daily, # 90 tablet, 3 Refills, Maintenance, 11/20/22 16:48:00 EDT, [facility], 163, cm, 11/20/22 16:00:00 EDT, Height, 83, kg, 02/11/22 19:19:00 EST, Dry Weight Start Date: 11/20/22 Status: Ordered amLODIPine 5 mg oral tablet 5 mg, 1, tablet, By Mouth, Daily, # 90 tablet, Refills 3, Tot. Refills 3, Maintenance, 04/29/22 11:56:00 EST, Route to Pharmacy Electronically, [facility], Partial fill upon patient request if the prescription is for a schedule II opio... Start Date: 04/29/22 Status: Ordered atorvastatin 40 mg oral tablet 1 tablet = 40 mg, By Mouth, Daily, # 90 tablet, 3 Refills, Maintenance, 09/25/22 16:58:00 EDT, Tablet, [facility]., Partial fill [...] Gm, 2 Refills, Maintenance, 12/26/22 8:13:00 EDT, [facility]., 15, APPLY TOPICALLY TO AFFECTED AREA [...] 3 Refills, Maintenance, 09/25/22 17:01:00 EDT, Tablet, [facility], Partial fill upon patient request if the prescription is for aschedule II opioid drug., 163, cm, 09/25/22 16:20:0... Start Date: 09/25/22 Status: Ordered ibuprofen 800 mg oral tablet 1, tablet, By Mouth, 3 times a day, PRN, # 90 tablet, Refills 1, Tot. Refills 1, Maintenance, NEEDED FOR PAIN, 10/22/22 15:19:00 EDT, Route to Pharmacy Electronically, [facility], 163, cm, 09/25/22 16:20:00 EDT, Height, 83, kg, 11/0... Start Date: 10/22/22 Status: Ordered Januvia 100 mg oral tablet 1 tablet, By Mouth, Daily, # 30 tablet, 11 Refills, Maintenance, 11/26/22 10:02:00 EDT, [facility], 163, cm, 11/20/22 16:00:00 EDT, Height, 83, kg, 02/11/22 19:19:00 EST, Dry Weight Start Date: 11/26/22 Status: Ordered lidocaine 5% topical film 1 patch, Topically, Daily, PRN Pain , Mild, remove after 12 hours, # 13 each, 5 Refills, Maintenance, 09/25/22 16:59:00 EDT, Film, [facility], Partial fill upon patient request if theprescription is for a schedule II opioid drug., 1 p... Start Date: 09/25/22 Status: Ordered lisinopril 20 mg oral tablet 20 mg, 1, tablet, By Mouth, Daily, # 90 tablet, Refills 3, Tot. Refills 3, Maintenance, 11/20/22 16:48:00 EDT, Route to Pharmacy Electronically, [facility], 163, cm, 11/20/22 16:00:00EDT, Height, 83, kg, 02/11/22 19:19:00 EST, Dry Weight Start Date: 11/20/22 Status: Ordered mirtazapine 30 mg oral tablet 1 tablet = 30 mg, By Mouth, Daily at bedtime, # 90 tablet, 1 Refills, Maintenance, 09/25/22 17:00:00 EDT, Tablet, [facility] Partial fill upon patient request if the prescription is for a schedule II opioid drug., 163, cm, 09/25/22 16... Start Date: 09/25/22 Status: Ordered omeprazole 40 mg oral enteric coated capsule 1 capsule, By Mouth, Daily, PRN NEEDED, # 90 capsule, 1 Refills, Maintenance, 11/25/22 10:53:00 EDT, [facility], 163, cm, 11/20/22 16:00:00 EDT, Height, 83, kg, 02/11/22 19:19:00 EST, Dry Weight Start Date: 11/25/22 Status: Ordered oxyCODONE 15 mg oral tablet 1 tablet = 15 mg, By Mouth, Every 8 hours, PRN Pain , Severe, # 84 tablet, 0 Refills, Maintenance, 01/21/23 9:27:00 EDT, [facility]., Partial fill upon [...] 01/27/23 9:28:00 EDT, Route to Pharmacy Electronically, [facility]., 163, cm, 11/20/22 16:00:00 EDT, Height, 83, kg... Start Date: 01/27/23 Status: Ordered traZODone 50 mg oral tablet 1/2 TO 1 TABLET, By Mouth, Daily at bedtime, # 30 tablet, Refills 5, Maintenance, 08/29/22 11:31:00EDT, Route to Pharmacy Electronically, [facility], 163, cm, 08/14/22 16:50:00 EDT, Height, 83, kg, 02/11/22 19:19:00 EST, Dry Weight Start Date: 08/29/22 Status: Ordered triamcinolone 55 mcg/inh nasal spray 1 sprays = 55 mcg, Nares, Both, Daily, # 1 each, 5 Refills, Maintenance, 08/14/22 16:59:00 EDT, [facility], Partial fill upon patient request if the prescription is for a schedule II opioid drug., 1 sprays Nares, Both Daily, 163, cm, 0... 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, pending MRI 5urge and stress Social History Social History Type Response Smoking Status Current every day sm oker; Type: Cigarettes; Tobacco use times per day: 1/2 ppd; entered on: 12/24/17 Sex Patient Care team information Care Team Personnel Name: Sindy Bernal RN Position: [facility] RN Member Role: Primary Care Nurse Name: Graciela Thrasher RN Position: [facility] SN RN Member Role: Primary Care Nurse Name: Stevie Angel RN Position: [facility] RN Member Role: Primary Care Nurse Name: Keily Ortega RN Position: [facility] RN Member Role: Primary Care Nurse Name: Graciela Munroe RN Position: [facility] RN Member Role: Primary Care Nurse Name: Nichole Pichardo RN Position: [facility] RN Member Role: Primary Care Nurse Name: Melvin Whitfield RN Position: [facility] AMB Nurse Member Role: Primary Care Nurse Name: Phuong Berkowitz RN Position: [facility] RN Member Role: Primary Care Nurse Name: Pura Walker MD Position: [facility] Physician - Primary Care Member Role: PCP Address: Address: [address] [place] [address] Name: Joselyn Rain RN Position: [facility] Hospital Healthcare Liaison Member Role: Primary Care Nurse Care Team Related Persons Name: IRA ROMERO Address: home [address] [place] [address] Name: JHON LARSON Address: [address] [place] [address] Name: JHON LARSON Address: [address] [place] [address] Name: GALO CATALAN Name: NANCY CATALAN Address: home [address] [place] [address]
--- OUTSIDE RECORDS SUMMARY | 2023-03-25 08:26 | XMS_ITS | Continuity of Care Document ---
Author Name Unknown Organization [facility] Address [address] [place] [address]- Care Team Providers Care Car Mover Name Role Phone Richardson MANAGER SEMICONDUCTOR, Leonora Pérez Primary Care Physician [phone] Encounter [facility] Date(s): 08/27/20 - 09/26/20 [facility] [address] [place] [address]- Allergies, Adverse Reactions, Alerts Substance Reaction Severity [...] 14:12:00 EST, Powder, Route to Pharmacy Electronically, [id number], [facility]/pharmacy #[id number], 162.56, cm, 03/27/20 11:36:00... [...] 16 mL, 1 Refills, Maintenance, [id number], 30, USE 1 SPRAY IN BOTH NOSTRILS [...] Refills, Maintenance, 08/27/20 11:00:00 EDT, Tablet, [facility]/pharmacy #[id number], 163, cm, 08/15/20 14:23:00 EDT, Height, 84.8, kg, 06/25/20 20:28:00 EDT, Dry Weight Start Date: 08/27/20 Status: Ordered Lantus 100 u/ml subcutaneous solution = 40 units, Subcutaneous Injection, Daily, # 12 mL, 11 Refills, Maintenance, 05/07/20 13:24:00 EST,Solution, [facility]/pharmacy #[id number], increased dose 12/26/19, 162, cm, 04/21/20 [...] 05/07/20 13:30:00 EST, Route to Pharmacy Electronically, [facility]/pharmacy #[id number], 162, cm, 04/21/20 11:33:00 EST, Height, 80, kg, 04/18/20 9:48:00 EST, Dry Weight Start Date: 05/07/20 Status: Ordered loratadine 10 mg oral capsule 1 capsule = 10 mg, By Mouth, Daily, # 40 capsule, 0 Refills, Maintenance, 08/15/20 15:59:00 EDT, Capsule, [facility]/pharmacy #[id number], Partial fill upon patient request if the prescription is for a schedule II opioid drug., 163, cm, 08/15/20 14:23:00 EDT, He[place]... Start Date: 08/15/20 Status: Ordered Mapap 325 mg oral tablet 2 tablet = 650 mg, By Mouth, Every 4 hours, PRN for pain, not to exceed 3000 mg/day. instructions in latvian, # 120 tablet, 2 Refills, Maintenance, 11/01/19 15:24:00 EDT, Tablet, [facility]/pharmacy #[id number], 163, cm, 11/01/19 14:40:00 EDT, Height, [...] Refills, Maintenance, 04/05/20 14:08:00 EST, Tablet, [facility]/pharmacy #[id number], Partial fill upon patient request if the prescription is for a schedule II opioid drug., 162.56, cm, ... Start Date: 04/05/20 Status: Ordered omeprazole 40 mg oral enteric coated capsule 1 capsule = 40 mg, By Mouth, Daily, # 90 capsule, 0 Refills, Maintenance, 08/13/20 10:34:00 EDT, ECCapsule, [facility]/pharmacy #[id number], 163, cm, 08/09/20 8:45:00 [...] 12:46:00 EST, Route to Pharmacy Electronically, [facility]/pharmacy #[id number], 162, cm, 05/24/20 9:01:00 EST, Height, 80, kg, 04/18/20 9:48:00 EST, Dry... Start Date: 06/04/20 Status: Ordered Soma 350 mg oral tablet 350 mg, 1, tablet, By Mouth, 3 times a day, # 9 tablet, Refills 0, Tot. Refills 0, Maintenance, 05/04/20 15:46:00 EST, Route to Pharmacy Electronically, [facility]/pharmacy #[id number], Partial fill upon patient request if the prescription is for a schedule II opi... Start Date: 05/04/20 Status: Ordered Spiriva Respimat 60 ACT 2.5 mcg/inh inhalation aerosol 2 puffs, Inhalation, Daily, # 1 each, 11 Refills, Maintenance, 04/05/20 14:17:00 EST, [facility]/pharmacy #[id number], Partial fill upon [...] 11:59:00 EDT, Route to Pharmacy Electronically, [facility]/pharmacy #[id number], 163, cm, 08/15/20 14:23:00 [...]
--- OUTSIDE RECORDS SUMMARY | 2023-03-25 08:26 | XMS_ITS | Continuity of Care Document ---
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 Name Role Phone Richardson BANK RUNNER, Leonora Pérez Primary Care Physician En[place] [facility] Date(s): 08/25/22 - 09/24/22 [facility] [address] [place] [address]- Allergies, Adverse Reactions, Alerts Substance Reaction Severity Status morphine Active gabapentin swelling Active Lyrica dysphagia Active SEROquel body swelling - all over Act tony MetFORMIN Hydrochloride ER black tarry stool Active Immunizations Given and Recorded Vaccine Date Status Refusal Reason [id number] 12y+ bivalent booster vax 01/30/22 Given influenza virus vaccine, inactivated 01/30/22 Give n influenza virus vaccine, inactivated 02/04/21 Give n influenza virus vaccine, inactivated 1 04/19/20 Gi tonio influenza virus vaccine, inactivated 03/12/19 Give n influenza virus vaccine, inactivated 01/19/18 Give n influenza virus vaccine, inactivated 02/16/17 Give n pneumococcal 20-valent conjugate vaccine 12/26/21 Given SARS-CoV-2 mRNA ([id number]) vax 05/14/21 Given SARS-CoV-2 (COVID-19) mRNA [id number]-[id number] [...] 10/22/21 9:23:00 EDT, Route to Pharmacy Electronically, [facility], Partial fill uponpatient request if the [...] tablet, 1 Refills, Maintenance, 07/25/22 12:30:00 EDT, [facility] 163, cm, 07/11/22 14:19:00 EDT, Height, 83, kg, 02/11/22 19:19:00 EST, Dry Weight Start Date: 07/25/22 Status: Ordered amLODIPine 5 mg oral tablet 5 mg, 1, tablet, By Mouth, Daily, # 90 tablet, Refills 3, Tot. Refills 3, Maintenance, 04/29/22 11:56:00 EST, Route to Pharmacy Electronically, [facility], Partial fill upon patient request if the prescription is for a schedule II opio... Start Date: 04/29/22 Status: Ordered cholecalciferol 5000 intl units oral capsule 1 capsule = 125 mcg, By Mouth, Daily, with food, # 100 capsule, 2 Refills, Maintenance, 02/11/21 11:17:00 EST, Capsule, [facility]/pharmacy #[id number], Partial fill upon patient request if the prescription is for a schedule II opioid drug., 155, cm, 02/11/21 8:53... Start Date: 02/11/21 Status: Ordered clonazePAM 0.5 mg oral tablet 1 tablet = 0.5 mg, By Mouth, 2 times a day, # 60 tablet, 0 Refills, Maintenance, 07/25/22 17:58:00 EDT, [facility] Partial fill upon patient [...] Gm, 1 Refills, Maintenance, 09/03/22 14:02:00 EDT, [facility], 15, APPLY TOPICALLY TO AFFECTED AREA TWO TIMES A DAY,163, cm, 08/14/22 16:50:00 EDT, Height, 83, kg, 11/... Start Date: 09/03/22 Status: Ordered docusate-senna 50 mg-187 mg oral tablet 2 tablet, By Mouth, 2 times a day, PRN Constipation, # 100 tablet, 11 Refills, Maintenance, 08/14/22 16:57:00 EDT, Tablet, [facility] Partial fill upon patient request if the prescription is for a schedule II opioid drug., 2 tablet By... Start Date: 08/14/22 Status: Ordered duloxetine 60 mg oral enteric coated capsule 2 capsule = 120 mg, By Mouth, Daily, # 60 capsule, 5 Refills, Maintenance, 05/26/22 17:03:00 EST, Capsule, [facility] Partial fill upon patient request. NOT INCREASED DOSE. Please cancel all other Duloxetine scripts, 163, cm, 05/19/22... Start Date: 05/26/22 Status: Ordered empagliflozin 10 mg oral tablet 1 tablet = 10 mg, By Mouth, Daily in AM, # 30 tablet, 5 Refills, Maintenance, 02/20/22 12:04:00 EST, Tablet, [facility], Partial fill upon patient request if the prescription is for aschedule II opioid drug., 163, cm, 02/11/22 19:19:0... Start Date: 02/20/22 Status: Ordered ibuprofen 800 mg oral tablet 1, tablet, By Mouth, 3 times a day, PRN, # 90 tablet, Refills 1, Tot. Refills 1, Maintenance, NEEDED FOR PAIN, 07/11/22 15:09:00 EDT, Route to Pharmacy Electronically, [facility], 163, cm, 07/11/22 14:19:00 EDT, Height, 83, kg, 110... Start Date: 07/11/22 Status: Ordered Lantus 100 u/ml subcutaneous solution = 50 units, Subcutaneous Injection, Daily, # 15 mL, 2 Refills, Maintenance, 01/06/22 12:07:00 EDT, Solution, [facility], ;, 163, cm, 01/03/22 11:20:00 EDT, Height, 84, kg, 01/02/22 19:36:00 EDT, Dry Weight Start Date: 01/06/22 Status: Ordered lidocaine 5% topical film 1 patch, Topically, Daily, PRN Pain , Mild, remove after 12 hours, # 13 each, 5 Refills, Maintenance, 04/29/22 11:56:00 EST, Film, [facility], Partial fill upon patient request if theprescription is for a schedule II opioid drug., 1 p... Start Date: 04/29/22 Status: Ordered lisinopril 20 mg oral tablet 20 mg, 1, tablet, By Mouth, Daily, # 90 tablet, Refills 1, Tot. Refills 1, Maintenance, 07/25/22 12:31:00 EDT, Route to Pharmacy Electronically, [facility], 163, cm, 07/11/22 14:19:00EDT, Height, 83, [...] 30 capsule, 2 Refills, 08/26/22 13:27:00 EDT, [facility], 163, cm, 08/14/22 16:50:00 EDT, Height, 83, kg, 02/11/22 19:19:00 EST, Dry Weight Start Date: 08/26/22 Status: Ordered oxyCODONE 15 mg oral tablet 1 tablet = 15 mg, By Mouth, 3 times a day, on contract at [facility], # 84 tablet, 0 Refills, Maintenance, 08/26/22 13:21:00 EDT, [facility], Partial fill upon patient [...] capsule, 0 Refills, Maintenance, 08/26/22 13:22:00 EDT, [facility], 163, cm, 08/14/22 16:50:00 EDT, Height, 83, kg, ... Start Date: 08/26/22 Status: Ordered traZODone 50 mg oral tablet 1/2 TO 1 TABLET, By Mouth, Daily at bedtime, # 30 tablet, Refills 5, Maintenance, 08/29/22 11:31:00EDT, Route to Pharmacy Electronically, [facility], 163, cm, 08/14/22 16:50:00 EDT, Height, 83, kg, 02/11/22 19:19:00 EST, Dry Weight Start Date: 08/29/22 Status: Ordered triamcinolone 55 mcg/inh nasal spray 1 sprays = 55 mcg, Nares, Both, Daily, # 1 each, 5 Refills, Maintenance, 08/14/22 16:59:00 EDT, [facility]., Partial fill upon patient request if the prescription is for a schedule II opioid drug., 1 sprays Nares, Both Daily, 163, cm, 0... 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 Fabian [phone] Confirmed Active Syncope and collapse Confirmed Active [...] Team Personnel Name: Sindy Bernal RN Position: [facility] RN Member Role: Primary Care Nurse Name: Graciela Thrasher RN Position: [facility] RN Member Role: Primary Care Nurse Name: Stevie Angel RN Position: [facility] RN Member Role: Primary Care Nurse Name: Leonora Bai NP Position: [facility] PCO Associate Professional Member Role: PCP Address: Address: [address] [place] [address] [place] [address]- Name: Keily Ortega RN Position: [facility] RN Member Role: Primary Care Nurse Name: Nichole Pichardo RN Position: [facility] RN Member Role: Primary Care Nurse Name: Melvin Whitfield RN Position: [facility] AMB Nurse Member Role: Primary Care Nurse Name: Phuong Berkowitz RN Position: [facility] RN Member Role: Primary Care Nurse Name: Joselyn Rain RN Position: [facility] Hospital Paint Mixer Machine Member Role: Primary Care Nurse Care Team Related Persons Name: ROMERO IRA Address: home [address] [place] [address] Name: JHON LARSON Address: home [address] [place] [address] Name: JHON LARSON Address: home [address] [place] [address] Name: GALO CATALAN Name: NANCY CATALAN Address: home [address] [place] [address]
--- OUTSIDE RECORDS SUMMARY | 2023-03-25 08:26 | XMS_ITS | Continuity of Care Document ---
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 Start Date: 04/05/20 Status: Ordered albuterol 0.083% inhalation solution 3 mL = 2.5 mg, Inhalation, Every 4 hours, PRN for wheezing, # 100 each, 5 Refills, Maintenance, 06/27/19 14:32:00 EDT, Solution, [facility]/pharmacy #[id number], 160, cm, 06/01/19 14:08:00 EST, Height, 88.9, kg, 05/23/19 22:09:00 EST, Dry Weight Start Date: 06/27/19 Status: Ordered amitriptyline 50 mg oral tablet 1 tablet = 50 mg, By Mouth, Daily at bedtime, # 30 tablet, 5 Refills, Maintenance, 12/30/19 18:21:00 EDT, Tablet, [facility]/pharmacy #[id number], 163, cm, 12/26/19 13:58:00 EDT, Height, 80, kg, 10/29/19 0:29:00 EDT, Dry Weight Start Date: 12/30/19 Status: Ordered atorvastatin 20 mg oral tablet 1 tablet = 20 mg, By Mouth, Daily, # 90 tablet, 3 Refills, Maintenance, 04/05/20 14:11:00 EST, Tablet, [facility]/pharmacy #[id number], Partial fill [...] 5 Refills, Maintenance, 03/02/20 11:18:00 EST, Capsule, [facility]/pharmacy #[id number], Partial [...] mL, 11 Refills, Maintenance, 05/07/20 13:24:00 EST,Solution, [facility]/pharmacy #[id number], increased dose 12/26/19, 162, cm, 04/21/20 [...] 05/07/20 13:30:00 EST, Route to Pharmacy Electronically, [facility]/pharmacy #[id number], 162, cm, 04/21/20 11:33:00 EST, Height, 80, kg, 04/18/20 9:48:00 EST, Dry Weight Start Date: 05/07/20 Status: Ordered Mapap 325 mg oral tablet 2 tablet = 650 mg, By Mouth, Every 4 hours, PRN for pain, not to exceed 3000 mg/day. instructions in kittitian, # 120 tablet, 2 Refills, Maintenance, 11/01/19 15:24:00 EDT, Tablet, [facility]/pharmacy #[id number], 163, cm, 11/01/19 14:40:00 EDT, Height, [...] 2 Refills, Maintenance, 04/05/20 14:08:00 EST, Tablet, [facility]/pharmacy #[id number], Partial fill upon patient request if the prescription is for a schedule II opioid drug., 162.56, cm, ... Start Date: 04/05/20 Status: Ordered omeprazole 40 mg oral enteric coated capsule 1 capsule = 40 mg, By Mouth, Daily, # 30 capsule, 3 Refills, Maintenance, 05/24/20 9:40:00 EST, EC Capsule, [facility]/pharmacy #[id number], note dose increase, 162, cm, 05/24/20 [...] CENTER, # 56 tablet, 0 Refills, Acute 07/30/20 8:00:00 EDT, 07/02/20 8:00:00 EDT, [facility]/pharmacy #[id number], Partial fill upon patient request if the prescription is for a schedule II opioi... Start Date: 07/02/20 Stop Date: 07/30/20 Status: Ordered Senna 8.6 mg oral tablet 8.6 mg, 1, tablet, By Mouth, Daily at bedtime, # 100 tablet, Refills 2, Tot. Refills 2, Maintenance, 06/04/20 12:46:00 EST, Route to Pharmacy Electronically, [facility]/pharmacy #[id number], 162, cm, 05/24/20 9:01:00 EST, Height, 80, kg, 04/18/20 9:48:00 EST, Dry... Start Date: 06/04/20 Status: Ordered Soma 350 mg oral tablet 350 mg, 1, tablet, By Mouth, 3 times a day, # 9 tablet, Refills 0, Tot. Refills 0, Maintenance, 05/04/20 15:46:00 EST, Route to Pharmacy Electronically, [facility]/pharmacy #[id number], Partial fill upon [...] 05/03/20 11:26:00 EST, Route to Pharmacy Electronically, [facility]/pharmacy #[id number], 162, cm, 04/21/20 11:33:00 EST, Height, [...] [address] Abd 09/18/16 at [facility] [place], pending MRI 3urge and stress Social History Social History Type Response Tobacco Use: Pt states she q uit smoking 1 week ago. Sex
--- OUTSIDE RECORDS SUMMARY | 2023-03-25 08:26 | XMS_ITS | Continuity of Care Document ---
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 Start Date: 04/05/20 Status: Ordered albuterol 0.083% inhalation solution 3 mL = 2.5 mg, Inhalation, Every 4 hours, PRN for wheezing, # 100 each, 2 Refills, Maintenance, 08/15/20 10:22:00 EDT, Solution, [facility]/pharmacy #[id number], 163, cm, 08/09/20 8:45:00 [...] Refills, Maintenance, 04/05/20 14:11:00 EST, Tablet, [facility]/pharmacy #[id number], Partial fill upon patient request if the prescription is for a schedule II opioid drug., 162.56, cm, 03/27/20 11:36:00 EST, Heig... Start Date: 04/05/20 Status: Ordered capsaicin 0.025% topical cream 1 application, Topically, 3 times a day, # 45 Gm, 3 Refills, Maintenance, 11/01/19 15:25:00 EDT, Cream, [facility]/pharmacy #[id number], 1 application Topically 3 [...] Refills, Maintenance, 07/30/20 19:49:00 EDT, Cream, [facility]/pharmacy #[id number], 1 application Topically 2 times [...] Refills, Maintenance, 03/02/20 11:18:00 EST, Capsule, [facility]/pharmacy #[id number], Partial fill upon patient request. NOT INCREASED DOSE, 163, cm, 12/25/2012:58:00 EDT, Height, 80, kg, 10/29/19 0:29:00 EDT,... Start Date: 03/02/20 Status: Ordered fluticasone 50 mcg/inh nasal spray See Instructions, USE 1 SPRAY IN BOTH NOSTRILS 2 TIMES A DAY, # 16 mL, 1 Refills, Maintenance, [id number], 30, USE 1 SPRAY IN BOTH NOSTRILS 2 TIMES A DAY, 163, cm, 08/15/20 14:23:00 EDT, Height,84.8, kg, 06/25/20 20:28:00 EDT, Dry Weight Start Date: 09/07/20 Status: Ordered hydrochlorothiazide 12.5 mg oral tablet 1 tablet = 12.5 mg, By Mouth, Daily, # 90 tablet, 3 Refills, Maintenance, 01/19/20 10:28:00 EDT, Tablet, [facility]/pharmacy #[id number], 163, cm, 12/26/19 13:58:00 EDT, Height, 80, kg, 10/29/19 0:29:00 EDT, Dry Weight Start Date: 01/19/20 Status: Ordered Januvia 100 mg oral tablet 1 tablet = 100 mg, By Mouth, Daily, # 30 tablet, 2 Refills, Maintenance, 08/27/20 11:00:00 EDT, Tablet, [facility]/pharmacy #[id number], 163, cm, 08/15/20 14:23:00 EDT, Height, 84.8, kg, 06/25/20 20:28:00 EDT, Dry Weight Start Date: 08/27/20 Status: Ordered Lantus 100 u/ml subcutaneous solution = 40 units, Subcutaneous Injection, Daily, # 12 mL, 11 Refills, Maintenance, 05/07/20 13:24:00 EST,Solution, [facility]/pharmacy #[id number], increased dose 12/26/19, 162, [...] Refills, Maintenance, 08/15/20 15:59:00 EDT, Capsule, [facility]/pharmacy #[id number], Partial fill upon patient request if the prescription is for a schedule II opioid drug., 163, cm, 08/15/20 14:23:00 EDT, Heig... Start Date: 08/15/20 Status: Ordered Mapap 325 mg oral tablet 2 tablet = 650 mg, By Mouth, Every 4 hours, PRN for pain, not to exceed 3000 mg/day. instructions in [facility], # 120 tablet, 2 Refills, Maintenance, 11/01/19 15:24:00 EDT, Tablet, [facility]/pharmacy #[id number], 163, cm, 11/01/19 14:40:00 EDT, [...] 2 Refills, Maintenance, 04/05/20 14:08:00 EST, Tablet, [facility]/pharmacy #[id number], Partial fill upon patient request if the prescription is for a schedule II opioid drug., 162.56, cm, ... Start Date: 04/05/20 Status: Ordered omeprazole 40 mg oral enteric coated capsule 1 capsule = 40 mg, By Mouth, Daily, # 90 capsule, 0 Refills, Maintenance, 08/13/20 10:34:00 EDT, ECCapsule, [facility]/pharmacy #[id number], 163, cm, 08/09/20 8:45:00 [...] day, for 28 days, on contract at [facility], # 56 tablet, 0 Refills, Acute 10/25/20 15:14:00 EDT, 09/27/20 15:14:00 EDT, [facility]/pharmacy #[id number], Partial fill upon patient [...] 06/04/20 12:46:00 EST, Route to Pharmacy Electronically, [facility]/pharmacy #[id number], 162, cm, 05/24/20 9:01:00 EST, Height, 80, kg, 04/18/20 9:48:00 EST, Dry... Start Date: 06/04/20 Status: Ordered Soma 350 mg oral tablet 350 mg, 1, tablet, By Mouth, 3 times a day, # 9 tablet, Refills 0, Tot. Refills 0, Maintenance, 05/04/20 15:46:00 EST, Route to Pharmacy Electronically, [facility]/pharmacy #[id number], Partial fill upon patient request if the prescription is for a schedule II opi... Start Date: 05/04/20 Status: Ordered Spiriva Respimat 60 ACT 2.5 mcg/inh inhalation aerosol 2 puffs, Inhalation, Daily, # 1 each, 11 Refills, Maintenance, 04/05/20 14:17:00 EST, [facility]/pharmacy #[id number], Partial fill upon patient [...] 11:59:00 EDT, Route to Pharmacy Electronically, [facility]/pharmacy #[id number], 163, cm, 08/15/20 14:23:00 [...]
--- OUTSIDE RECORDS SUMMARY | 2023-03-25 08:26 | XMS_ITS | Continuity of Care Document ---
Author Name Unknown Organization [facility] Address [address] [place] [address]- Care Team Providers Care Marketing Content Specialist Name Role Phone Richardson QUIROZ, Leonora Pérez Primary Care Physician [facility]counter [facility] Date(s): 06/02/19 - 08/24/19 [facility] [address] [place] [address]- [place] Attending Physician: Alon Cleveland MD Admitting Physician: [...] 12:48:00 EST, Powder, Route to Pharmacy Electronically, [id number], [facility]/pharmacy #[id number], 158, cm, 04/26/19 9:58:00 EST, H... Start Date: 04/27/19 Status: Ordered albuterol 0.083% inhalation solution 3 mL = 2.5 mg, Inhalation, Every 4 hours, PRN for wheezing, # 100 each, 5 Refills, Maintenance, 06/27/19 14:32:00 EDT, Solution, [facility]/pharmacy #[id number], 160, cm, 06/01/19 14:08:00 [...] Refills, Maintenance, 04/19/19 15:40:00 EST, Tablet, [facility]/pharmacy #[id number], 158, cm, 04/04/19 15:21:00 EST, Height, 82, kg, 04/01/19 16:10:00 EST, Dry Weight Start Date: 04/19/19 Status: Ordered clonazePAM 0.5 mg oral tablet TAKE 1 TABLET BY MOUTH TWICE A DAY NEEDED Start Date: 06/02/19 Status: Ordered clotrimazole 1% topical cream 1 application, Topically, 2 times a day, # 30 Gm, 0 Refills, Maintenance, 05/30/19 19:02:00 EST, Cream, [facility]/pharmacy #[id number], 1 application Topically 2 [...] Refills, Maintenance, 04/28/19 16:05:00 EST, Tablet, [facility]/pharmacy #[id number], 158, cm, 04/28/19 14:51:00 EST, Height, 82, kg, 04/01/19 16:10:00 EST, Dry Weight Start Date: 04/28/19 Status: Ordered lidocaine 5% topical film 1 patch, Topically, Daily, For chronic radicular back pain, # 30 patch, 5 Refills, Maintenance, 06/27/19 14:37:00 EDT, [facility]/pharmacy #[id number], 1 patch Topically Daily,Instr:For chronic radicular back pain, 160, cm, 06/01/19 14:08:00 EST, Height, 88.9, kg,... Start Date: 06/27/19 Status: Ordered lisinopril 10 mg oral tablet 10 mg, 1, tablet, By Mouth, Daily, # 90 tablet, Refills 3, Tot. Refills 3, Maintenance, 05/08/19 20:27:00 EST, Route to Pharmacy Electronically, [facility]/pharmacy #[id number], to replace 2.5mg dose, [...] not to exceed 3000 mg/day. instructions in yi, # 120 tablet, 2 Refills, Maintenance, 07/25/19 [...] pain, for 28 days, on contract at [facility]., # 56 tablet, 0 Refills, Acute 09/12/19 14:55:00 EDT, 08/15/19 14:55:00 EDT, [facility]/pharmacy #[id number], Partial fill upon patient request, 160, cm, 07/22/19 15:08:00 EDT,... Start Date: 08/15/19 Stop Date: 09/12/19 Status: Ordered prazosin 1 mg oral capsule 1 mg, 1, capsule, By Mouth, Daily at bedtime, for nightmares, # 30 capsule, Refills 0, Tot. Refills0, Maintenance, 05/30/19 18:52:00 EST, Route to Pharmacy Electronically, [facility]/pharmacy #[id number], 160, cm, 05/30/19 18:08:00 [...] 5 Refills, Maintenance, 05/04/19 9:35:00 EST, [facility]/pharmacy #[id number], 158, cm, 04/28/19 14:51:00 EST, Height, 82, kg, 04/01/19 16:10:00 EST, Dry Weight Start Date: 05/04/19 Status: Ordered Senna 8.6 mg oral tablet 8.6 mg, 1, tablet, By Mouth, Daily at bedtime, # 100 tablet, Refills 2, Tot. Refills 2, Maintenance, 06/10/19 16:12:00 EST, Route to Pharmacy Electronically, [facility]/pharmacy #[id number], 160, cm, 06/01/19 14:08:00 [...] 8:41:00 EDT, Route to Pharmacy Electronically, [facility]/pharmacy #[id number], 160, cm, 07/22/19 15:08:00 [...] on CPAP(Confirmed) Active Panic attacks(Confirmed) Active *[facility]/Efrem Macdonald-[phone]/Health group home, active care coordination(Confirmed) Active Acute meniscal tear of right knee(Confirmed) 6 06/2015 Active Tobacco dependence(Confirmed) Active DM2 (diabetes mellitus, type 2)(Confirmed) 04/03/17 Active Incontinence of urine(Confirmed) 7 Active 1surgically repaired November 2015, Dr. Sg MENDEZ 2DJD Lumbar Spine per MRI 3L3-L4 disc herniation per client report 4seen on MRI 10/2016, rec repeat imaging in October [address] [place] [facility] [place] 6surgically repaired July 2015 Dr. Sg MENDEZ 7urge and stress Social History Social History Type Response Tobacco Use: Pt states she q uit smoking 1 week ago. Sex Female
--- OUTSIDE RECORDS SUMMARY | 2023-03-25 08:26 | XMS_ITS | Continuity of Care Document ---
Author Name Unknown Organization [facility] Address [address] [place] [id number]- Care Team Providers Care Public Works Director Name Role Phone Richardson TONGUE CARRIER, Leonora Pérez Primary Care Physician Encounter [facility] Date(s): 02/07/22 - 03/09/22 [facility] [address] [place], [place] [address] Attending Physician: Clarence Reynaga Admitting Physician: Clarence Reynaga Referring Physician: AdmtrClarence Allergies, Adverse Reactions, Alerts Substance Reaction Severity Status morphine Active gabapentin swelling Active Lyrica dysphagia Active MetFORMIN Hydrochloride ER black tarry stool Active SEROquel body swelling - all over Act tony Immunizations Given and Recorded Vaccine Date Status Refusal Reason [id number] 12y+ bivalent booster vax 01/30/22 Given influenza virus vaccine, inactivated 01/30/22 Give n influenza virus vaccine, inactivated 02/04/21 Give n influenza virus vaccine, inactivated 1 04/19/20 Gi tonio influenza virus vaccine, inactivated 03/12/19 Give n influenza virus vaccine, inactivated 01/19/18 Give n influenza virus vaccine, inactivated 02/16/17 Give n pneumococcal 20-valent conjugate vaccine 12/26/21 Given SARS-CoV-2 mRNA ([id number]) vax 05/14/21 Given SARS-CoV-2 (COVID-19) mRNA BNT-162b2 [...] 10/22/21 9:23:00 EDT, Route to Pharmacy Electronically, [facility], Partial fill uponpatient request if the [...] 08/30/21 12:06:00 EDT, Route to Pharmacy Electronically, [facility], Partial fill upon patient request if the prescription is for a sche... Start Date: 08/30/21 Status: Ordered amLODIPine 5 mg oral tablet 5 mg, 1, tablet, By Mouth, Daily, # 90 tablet, Refills 0, Tot. Refills 0, Maintenance, 01/30/22 10:50:00 EDT, Route to Pharmacy Electronically, [facility], Partial fill upon patient request if the prescription is for a schedule II opio... Start Date: 01/30/22 Status: Ordered cetirizine 10 mg oral tablet 1 tablet = 10 mg, By Mouth, Daily, # 30 tablet, 5 Refills, Maintenance, 08/28/21 9:07:00 EDT, Tablet, [facility], 162, cm, 08/22/21 9:46:00 EDT, Height, 86, kg, 07/23/21 0:58:00 EDT, Dry Weight Start Date: 08/28/21 Status: Ordered cholecalciferol 5000 intl units oral capsule 1 capsule = 125 mcg, By Mouth, Daily, with food, # 100 capsule, 2 Refills, Maintenance, 02/11/21 11:17:00 EST, Capsule, [facility]/pharmacy #[id number], Partial fill upon patient request if [...] 11 Refills, Maintenance, 02/21/22 10:35:00 EST, Tablet, [facility] Partial fill upon patient request if the prescription is for a schedule II opioid drug., 2 tablet By... Start Date: 02/21/22 Status: Ordered duloxetine 60 mg oral enteric coated capsule 2 capsule = 120 mg, By Mouth, Daily, # 60 capsule, 5 Refills, Maintenance, 11/14/21 11:41:00 EDT, Capsule, [facility] Partial fill upon patient request. NOT INCREASED DOSE. Please cancel all other Duloxetine scripts, 162, cm, 11/14/21... Start Date: 11/14/21 Status: Ordered empagliflozin 10 mg oral tablet 1 tablet = 10 mg, By Mouth, Daily in AM, # 30 tablet, 5 Refills, Maintenance, 02/20/22 12:04:00 EST, Tablet, [facility] Partial fill upon patient request if the prescription is for aschedule II opioid drug., 163, cm, 02/11/22 19:19:0... Start Date: 02/20/22 Status: Ordered fluticasone 50 mcg/inh nasal spray See Instructions, USE 1 SPRAY IN BOTH NOSTRILS 2 TIMES A DAY, # 16 mL, 1 Refills, 07/08/21 9:44:00 EDT, [facility]., 30, USE 1 SPRAY IN BOTH NOSTRILS 2 TIMES A DAY, 162.5, cm, 228:49:00 EDT, Height, 85.8, kg, 06/04/21 10:03:00 ES... Start Date: 07/08/21 Status: Ordered ibuprofen 800 mg oral tablet 1, tablet, By Mouth, 3 times a day, PRN, # 90 tablet, Refills 1, Maintenance, NEEDED FOR PAIN, 03/05/22 15:56:00 EST, Route to Pharmacy Electronically, [facility], 163, cm, 02/11/22 19:19:00 EST, Height, 83, kg, 02/11/22 19:19:00 EST, Dry... Start Date: 03/05/22 Status: Ordered Januvia 100 mg oral tablet 1 tablet = 100 mg, By Mouth, Daily, # 90 tablet, 3 Refills, Maintenance, 06/18/21 21:04:00 EDT, Tablet, [facility]., 162.5, cm, 06/17/21 13:04:00 EDT, Height, 85.8, kg, 06/04/21 10:03:00 EST, Dry Weight Start Date: 06/18/21 Status: Ordered Lantus 100 u/ml subcutaneous solution = 50 units, Subcutaneous Injection, Daily, # 15 mL, 2 Refills, Maintenance, 01/06/22 12:07:00 EDT, Solution, [facility]., ;, 163, cm, 01/03/22 11:20:00 EDT, Height, 84, kg, 01/02/22 19:36:00 EDT, Dry Weight Start Date: 01/06/22 Status: Ordered lidocaine 5% topical film 1 patch, Topically, Daily, PRN Pain , Mild, remove after 12 hours, # 13 each, 5 Refills, Maintenance, 12/26/21 10:37:00 EDT, Film, [facility], Partial fill upon patient request if theprescription is for a schedule II opioid drug., 1 p... Start Date: 12/26/21 Status: Ordered lisinopril 20 mg oral tablet 20 mg, 1, tablet, By Mouth, Daily, # 90 tablet, Refills 3, Tot. Refills 3, Maintenance, 08/28/21 9:07:00 EDT, Route to Pharmacy Electronically, [facility], 162, cm, 08/22/21 9:46:00 EDT, Height, 86, kg, 07/23/21 0:58:00 EDT, Dry Weight Start Date: 08/28/21 Status: Ordered Melatonin 10 mg oral tablet 1 tablet = 10 mg, By Mouth, Daily at bedtime, # 30 each, 5 Refills, Maintenance, 11/14/21 11:42:00 EDT, [facility], Partial fill upon patient request if [...] PRN NEEDED, # 30 capsule, 2 Refills, [facility], 162, cm, 09/06/21 13:04:00 EDT, Height, 86, kg, 07/23/21 0:58:00 EDT, Dry Weight Start Date: 10/02/21 Status: Ordered oxyCODONE 15 mg oral tablet 1 tablet = 15 mg, By Mouth, 3 times a day, for 28 days, On contract at [facility]., # 84 tablet, 0 Refills, Acute 03/26/22 15:15:00 EST, 02/26/22 15:15:00 EST, [facility], Partial fill uponpatient request if the [...] 07/08/21 9:39:00 EDT, Route to Pharmacy Electronically, [facility], 162.5, cm, 07/08/21 8:49:00 EDT, Height, 85.8, kg, 06/04/21 10:0... Start Date: 07/08/21 Status: Ordered tiZANidine 4 mg oral capsule 1 capsule, By Mouth, 3 times a day, # 90 capsule, 0 Refills, Maintenance, 03/06/22 16:55:00 EST, [facility], 163, cm, 02/11/22 19:19:00 EST, Height, 83, kg, 02/11/22 19:19:00 EST, Dry Weight Start Date: 03/06/22 Status: Ordered Trulicity Pen 3 mg/0.5 mL subcutaneous solution See Instructions, INJECT 0.5 ML SUBCUTANEOUSLY EVERY WEEK. ROTATE INJECTION SITES, # 2 mL, 5 Refills, Maintenance, 02/05/22 19:58:00 EDT, [facility], 163, cm, 02/05/22 11:00:00 EDT, Height,84, kg, [...] Confirmed Active Panic attacks Confirmed Active BHN/BHCP Workforce Planner Charlene Chung Caren [phone] Confirmed Active Syncope and collapse Confirmed Active Tobacco dependence Confirmed Active DM2 (diabetes mellitus, type 2) Confirmed 04/03/17 Active Incontinence of urine 3 Confirmed Active 1seen on MRI 10/2016, rec repeat imaging in October [address] Abd 09/18/16 at [facility], pending MRI 3urge and stress [...] Nurse Name: Richardson QUIROZ, Leonora Pérez Position: [facility] PCO Associate Professional Member Role: PCP Address: Address: [address] [place] [id number] Name: Keily Ortega RN [facility] RN Member Role: Primary Care Nurse Name: Phuong Berkowitz RN Position: [facility] RN Member Role: Primary Care Nurse Name: Joselyn Rain RN Position: [facility] Petroleum Plant Operator Member Role: Primary Care Nurse Care Team Related Persons Name: NICK IRA Address: home [address] [place] [address] Name: JHON LARSON Address: [address] [place] [address] Name: JHON LARSON Address: [address] [place] [address] Name: GALO CATALAN Name: NANCY CATALAN Address: home [address] [place] [address]
--- OUTSIDE RECORDS SUMMARY | 2023-03-25 08:26 | XMS_ITS | Continuity of Care Document ---
Author Name Unknown Organization [facility] Address [address] [place] [address]- Care Team Providers Care Poultry Veterinarian Name Role Phone Richardson BYPRODUCTS MAKER, Leonora Pérez Primary Care Physician Encounter [facility] Date(s): 10/20/22 - 11/19/22 [facility] [address] [place] [address]- Allergies, Adverse Reactions, Alerts Substance Reaction Severity Status morphine Active gabapentin swelling Active Lyrica dysphagia Active MetFORMIN Hydrochloride ER black tarry stool Active SEROquel body swelling - all over Act tony Immunizations Given and Recorded Vaccine Date Status Refusal Reason [id number] 12y+ bivalent booster vax 01/30/22 Given influenza virus vaccine, inactivated 01/30/22 Give n influenza virus vaccine, inactivated 02/04/21 Give n influenza virus vaccine, inactivated 1 04/19/20 Gi tonio influenza virus vaccine, inactivated 03/12/19 Give n influenza virus vaccine, inactivated 01/19/18 Give n influenza virus vaccine, inactivated 02/16/17 Give n pneumococcal 20-valent conjugate vaccine 12/26/21 Given SARS-CoV-2 mRNA ([id number]) vax 05/14/21 Given SARS-CoV-2 (COVID-19) mRNA BNT-162b2 [...] 09/25/22 17:00:00 EDT, Route to Pharmacy Electronically, [facility], Partial fill upon patient request if the prescription is for a sched... Start Date: 09/25/22 Status: Ordered Advair Diskus 500 mcg-50 mcg inhalation powder 1, inhalation, Inhalation, 2 times a day, rinse mouth and throat after use, # 60 each, Refills 11, Tot. Refills 11, Maintenance, 09/25/22 17:00:00 EDT, Inhaler, Route to Pharmacy Electronically, [id number], [facility]... Start Date: 09/25/22 Status: Ordered albuterol 0.083% inhalation solution 3 mL = 2.5 mg, 0 Refills, Maintenance, 02/06/22 16:39:00 EDT, Partial fill upon patient request if the prescription is for a schedule II opioid drug. Start Date: 02/06/22 Status: Ordered All Day Allergy 10 mg oral tablet 1 tablet, By Mouth, Daily, # 90 tablet, 1 Refills, Maintenance, 07/25/22 12:30:00 EDT, [facility], 163, cm, 07/11/22 14:19:00 EDT, Height, 83, kg, 02/11/22 19:19:00 EST, Dry Weight Start Date: 07/25/22 Status: Ordered amLODIPine 5 mg oral tablet 5 mg, 1, tablet, By Mouth, Daily, # 90 tablet, Refills 3, Tot. Refills 3, Maintenance, 04/29/22 11:56:00 EST, Route to Pharmacy Electronically, [facility], Partial fill upon patient request if the prescription is for a schedule II opio... Start Date: 04/29/22 Status: Ordered atorvastatin 40 mg oral tablet 1 tablet = 40 mg, By Mouth, Daily, # 90 tablet, 3 Refills, Maintenance, 09/25/22 16:58:00 EDT, Tablet, [facility] Partial fill upon patient request [...] tablet, 0 Refills, Maintenance, 07/25/22 17:58:00 EDT, [facility] Partial fill upon patient request if [...] Gm, 1 Refills, Maintenance, 09/03/22 14:02:00 EDT, [facility], 15, APPLY TOPICALLY TO AFFECTED AREA TWO TIMES A DAY,163, cm, 08/14/22 16:50:00 EDT, Height, 83, kg, 11/... Start Date: 09/03/22 Status: Ordered docusate-senna 50 mg-187 mg oral tablet 2 tablet, By Mouth, 2 times a day, PRN Constipation, # 100 tablet, 11 Refills, Maintenance, 08/14/22 16:57:00 EDT, Tablet, [facility]., Partial fill upon patient request if the prescription is for a schedule II opioid drug., 2 tablet By... Start Date: 08/14/22 Status: Ordered duloxetine 60 mg oral enteric coated capsule 2 capsule = 120 mg, By Mouth, Daily, # 60 capsule, 5 Refills, Maintenance, 05/26/22 17:03:00 EST, Capsule, [facility] Partial fill upon patient request. NOT INCREASED DOSE. Please cancel all other Duloxetine scripts, 163, cm, 05/19/22... Start Date: 05/26/22 Status: Ordered empagliflozin 10 mg oral tablet 1 tablet = 10 mg, By Mouth, Daily in AM, # 90 tablet, 3 Refills, Maintenance, 09/25/22 17:01:00 EDT, Tablet, [facility]., Partial fill upon patient request if [...] 10/22/22 15:19:00 EDT, Route to Pharmacy Electronically, [facility] 163, cm, 09/25/22 16:20:00 EDT, Height, 83, kg, 11/0... Start Date: 10/22/22 Status: Ordered lidocaine 5% topical film 1 patch, Topically, Daily, PRN Pain , Mild, remove after 12 hours, # 13 each, 5 Refills, Maintenance, 09/25/22 16:59:00 EDT, Film, [facility]., Partial fill upon patient request if theprescription is for a schedule II opioid drug., 1 p... Start Date: 09/25/22 Status: Ordered lisinopril 20 mg oral tablet 20 mg, 1, tablet, By Mouth, Daily, # 90 tablet, Refills 1, Tot. Refills 1, Maintenance, 07/25/22 12:31:00 EDT, Route to Pharmacy Electronically, [facility], 163, cm, 07/11/22 14:19:00EDT, Height, 83, kg, 02/11/22 19:19:00 EST, Dry Weight Start Date: 07/25/22 Status: Ordered mirtazapine 30 mg oral tablet 1 tablet = 30 mg, By Mouth, Daily at bedtime, # 90 tablet, 1 Refills, Maintenance, 09/25/22 17:00:00 EDT, Tablet, [facility], Partial fill upon patient request [...] HEALTH, # 84 tablet, 0 Refills, Maintenance, 10/24/22 11:04:00 EDT, [facility], Partial fill upon patient request [...] 90 capsule, 1 Refills, Maintenance,09/25/22 16:54:00 EDT, [facility], 163, cm, 09/25/22 16:20:00 EDT, Height, 83, kg, 02/11/22 19:19:00 EST, Dry Weight Start Date: 09/25/22 Status: Ordered traZODone 50 mg oral tablet 1/2 TO 1 TABLET, By Mouth, Daily at bedtime, # 30 tablet, Refills 5, Maintenance, 08/29/22 11:31:00EDT, Route to Pharmacy Electronically, [facility], 163, cm, 08/14/22 16:50:00 EDT, Height, 83, kg, 02/11/22 19:19:00 EST, Dry Weight Start Date: 08/29/22 Status: Ordered triamcinolone 55 mcg/inh nasal spray 1 sprays = 55 mcg, Nares, Both, Daily, # 1 each, 5 Refills, Maintenance, 08/14/22 16:59:00 EDT, [facility], Partial fill upon patient request if the prescription is for a schedule II opioid drug., 1 sprays Nares, Both Daily, 163, cm, 0... Start Date: 08/14/22 Status: Ordered Trulicity Pen 1.5 mg/0.5 mL subcutaneous solution = 1.5 mg, Subcutaneous Infusion, Every week, # 4 each, 5 Refills, Maintenance, 07/25/22 18:12:00 EDT, [facility], Partial fill upon patient request [...] Confirmed Active Panic attacks Confirmed Active N/CP Hr Business Partner Consultant Charlene Fabian [phone] Confirmed Active Syncope and collapse Confirmed Active Tobacco dependence Confirmed Active DM2 (diabetes mellitus, type 2) Confirmed 04/03/17 Active Incontinence of urine 3 Confirmed Active 1seen on MRI 10/2016, rec repeat imaging in October [address] Abd 09/18/16 at [facility], pending MRI 3urge and stress Social History Social History Type Response Smoking Status Current every day sm oker; Type: Cigarettes; Tobacco use times per day: 1/2 ppd; entered on: 12/24/17 Sex Patient Care team information Care Team Personnel Name: Sindy Bernal RN Position: [facility] RN Member Role: Primary Care Nurse Name: Graciela Thrasher RN Position: [facility] RN Member Role: Primary Care Nurse Name: Stevie Angel RN Position: [facility] RN Member Role: Primary Care Nurse Name: Leonora Bai NP Position: [facility] PCO Associate Professional Member Role: PCP Address: Address: [address] [place] [id number] Name: Keily Ortega RN Position: [facility] RN Member Role: Primary Care Nurse Name: Nichole Pichardo RN Position: [facility] RN Member Role: Primary Care Nurse Name: Melvin Whitfield RN Position: [facility] AMB Nurse Member Role: Primary Care Nurse Name: Phuong Berkowitz RN Position: [facility] RN Member Role: Primary Care Nurse Name: Joselyn Rain RN Position: [facility] Hospital Nba Player Member Role: Primary Care Nurse Care Team Related Persons Name: NICK IRA Address: home [address] [place] [address] Name: JHON LARSON Address: [address] [place] [address] Name: JHON LARSON Address: [address] [place] [address] Name: GALO CATALAN Name: NANCY CATALAN Address: home [address] [place] [address]
--- OUTSIDE RECORDS SUMMARY | 2023-03-25 08:26 | XMS_ITS | Continuity of Care Document ---
Author Name Unknown Organization [facility] Address [address] [place] [address]- Care Team Providers Care Incident Handler Name Role Phone Gerry GERARDO, Rashmi Primary Care Physician [facility]counter [facility] Date(s): 12/09/22 - 01/08/23 [facility] [address], [place] [address] Allergies, Adverse Reactions, Alerts Substance Reaction Severity Status morphine Active gabapentin swelling Active Lyrica dysphagia Active SEROquel body swelling - all over Act tony MetFORMIN Hydrochloride ER black tarry stool Active Immunizations Given and Recorded Vaccine Date Status Refusal Reason [id number] 12y+ bivalent booster vax 01/30/22 Given influenza virus vaccine, inactivated 01/30/22 Give n influenza virus vaccine, inactivated 02/04/21 Give n influenza virus vaccine, inactivated 1 04/19/20 Gi tonio influenza virus vaccine, inactivated 03/12/19 Give n influenza virus vaccine, inactivated 01/19/18 Give n influenza virus vaccine, inactivated 02/16/17 Give n pneumococcal 20-valent conjugate vaccine 12/26/21 Given SARS-CoV-2 mRNA ([id number]) vax 05/14/21 Given SARS-CoV-2 (COVID-19) mRNA BNT-162b2 vac 2 10/19/20 Given SARS-CoV-2 (COVID-19) mRNA BNT-162b2 vac 09/28/20 Given pneumococcal 23-valent vaccine 03/12/19 Given tetanus/diphtheria/pertussis, acel(Tdap) 07/29/13 Given 1Early/Late Reason: Early/Late Reason: Patient Not Available/Off Unit 2? Unknown: Resend to [facility]. Resend to [facility]. Medications acetaminophen 325 mg oral tablet 650 mg, 2, tablet, By Mouth, 3 times a day, # 100 tablet, Refills 5, Tot. Refills 5, Maintenance, 09/25/22 17:00:00 EDT, Route to Pharmacy Electronically, [facility], Partial fill upon patient request if the prescription is for a sched... Start Date: 09/25/22 Status: Ordered Advair Diskus 500 mcg-50 mcg inhalation powder 1, inhalation, Inhalation, 2 times a day, rinse mouth and throat after use, # 60 each, Refills 11, Tot. Refills 11, Maintenance, 09/25/22 17:00:00 EDT, Inhaler, Route to Pharmacy Electronically, [id number], [facility]... Start Date: 09/25/22 Status: Ordered albuterol 0.083% inhalation solution 3 mL = 2.5 mg, Neb, Every 4 hours, PRN Wheezing/Shortness of Breath, # 100 each, 11 Refills, Maintenance, 12/26/22 8:14:00 EDT, Inhalation Solution, [facility], Partial fill upon patient request if the prescription is for a schedule II... Start Date: 12/26/22 Status: Ordered All Day Allergy 10 mg oral tablet 1 tablet, By Mouth, Daily, # 90 tablet, 3 Refills, Maintenance, 11/20/22 16:48:00 EDT, [facility], 163, cm, 11/20/22 16:00:00 EDT, Height, 83, kg, 02/11/22 19:19:00 EST, Dry Weight Start Date: 11/20/22 Status: Ordered amLODIPine 5 mg oral tablet 5 mg, 1, tablet, By Mouth, Daily, # 90 tablet, Refills 3, Tot. Refills 3, Maintenance, 04/29/22 11:56:00 EST, Route to Pharmacy Electronically, [facility], Partial fill upon patient request if the prescription is for a schedule II opio... Start Date: 04/29/22 Status: Ordered atorvastatin 40 mg oral tablet 1 tablet = 40 mg, By Mouth, Daily, # 90 tablet, 3 Refills, Maintenance, 09/25/22 16:58:00 EDT, Tablet, [facility] Partial fill upon patient request [...] tablet, 0 Refills, Maintenance, 07/25/22 17:58:00 EDT, [facility] Partial fill upon patient request [...] Gm, 2 Refills, Maintenance, 12/26/22 8:13:00 EDT, [facility] 15, APPLY TOPICALLY TO AFFECTED AREA TWO TIMES A DAY FOR TWO WEEKS, 163, cm, ... Start Date: 12/26/22 Status: Ordered docusate-senna 50 mg-187 mg oral tablet 2 tablet, By Mouth, 2 times a day, PRN Constipation, # 100 tablet, 11 Refills, Maintenance, 08/14/22 16:57:00 EDT, Tablet, [facility] Partial fill upon patient request if the prescription is for a schedule II opioid drug., 2 tablet By... Start Date: 08/14/22 Status: Ordered duloxetine 60 mg oral enteric coated capsule 2 capsule = 120 mg, By Mouth, Daily, # 60 capsule, 11 Refills, Maintenance, 11/20/22 16:48:00 EDT, Capsule, [facility]., Partial fill upon patient request. NOT INCREASED DOSE. Please cancel all other Duloxetine scripts, 163, cm, ... Start Date: 11/20/22 Status: Ordered empagliflozin 10 mg oral tablet 1 tablet = 10 mg, By Mouth, Daily in AM, # 90 tablet, 3 Refills, Maintenance, 09/25/22 17:01:00 EDT, Tablet, [facility]., Partial fill upon patient request if [...] 10/22/22 15:19:00 EDT, Route to Pharmacy Electronically, [facility]., 163, cm, 09/25/22 16:20:00 EDT, Height, 83, kg, 11/0... Start Date: 10/22/22 Status: Ordered Januvia 100 mg oral tablet 1 tablet, By Mouth, Daily, # 30 tablet, 11 Refills, Maintenance, 11/26/22 10:02:00 EDT, [facility], 163, cm, 11/20/22 16:00:00 EDT, Height, 83, kg, 02/11/22 19:19:00 EST, Dry Weight Start Date: 11/26/22 Status: Ordered lidocaine 5% topical film 1 patch, Topically, Daily, PRN Pain , Mild, remove after 12 hours, # 13 each, 5 Refills, Maintenance, 09/25/22 16:59:00 EDT, Film, [facility]., Partial fill upon patient request if theprescription is for a schedule II opioid drug., 1 p... Start Date: 09/25/22 Status: Ordered lisinopril 20 mg oral tablet 20 mg, 1, tablet, By Mouth, Daily, # 90 tablet, Refills 3, Tot. Refills 3, Maintenance, 11/20/22 16:48:00 EDT, Route to Pharmacy Electronically, [facility]., 163, cm, 11/20/22 16:00:00EDT, Height, 83, kg, 02/11/22 19:19:00 EST, Dry Weight Start Date: 11/20/22 Status: Ordered mirtazapine 30 mg oral tablet 1 tablet = 30 mg, By Mouth, Daily at bedtime, # 90 tablet, 1 Refills, Maintenance, 09/25/22 17:00:00 EDT, Tablet, [facility]., Partial fill upon patient request if the prescription is for a schedule II opioid drug., 163, cm, 09/25/22 16... Start Date: 09/25/22 Status: Ordered omeprazole 40 mg oral enteric coated capsule 1 capsule, By Mouth, Daily, PRN NEEDED, # 90 capsule, 1 Refills, Maintenance, 11/25/22 10:53:00 EDT, [facility], 163, cm, 11/20/22 16:00:00 EDT, Height, 83, kg, 02/11/22 19:19:00 EST, Dry Weight Start Date: 11/25/22 Status: Ordered oxyCODONE 15 mg oral tablet 1 tablet = 15 mg, By Mouth, 3 times a day, on contract at [facility], # 84 tablet, 0 Refills, Maintenance, 12/23/22 7:56:00 EDT, [facility]., Partial fill upon patient request if [...] 11/21/22 15:54:00 EDT, Route to Pharmacy Electronically, [facility], 163, cm, 11/20/22 16:00:00 EDT, Height, 83, kg, 02/11/22 19:19:00 E... Start Date: 11/21/22 Status: Ordered traZODone 50 mg oral tablet 1/2 TO 1 TABLET, By Mouth, Daily at bedtime, # 30 tablet, Refills 5, Maintenance, 08/29/22 11:31:00EDT, Route to Pharmacy Electronically, [facility], 163, cm, 08/14/22 16:50:00 EDT, Height, 83, kg, 02/11/22 19:19:00 EST, Dry Weight Start Date: 08/29/22 Status: Ordered triamcinolone 55 mcg/inh nasal spray 1 sprays = 55 mcg, Nares, Both, Daily, # 1 each, 5 Refills, Maintenance, 08/14/22 16:59:00 EDT, [facility], Partial fill upon patient request if the prescription is for a schedule II opioid drug., 1 sprays Nares, Both Daily, 163, cm, 0... Start Date: 08/14/22 Status: Ordered Trulicity Pen 1.5 mg/0.5 mL subcutaneous solution = 1.5 mg, Subcutaneous Infusion, Every week, # 4 each, 11 Refills, Maintenance, 11/20/22 16:49:00 EDT, [facility], Partial fill upon patient request [...] Confirmed Active Panic attacks Confirmed Active N/CP Human Intelligence Charlene Fabian [phone] Confirmed Active Syncope and collapse Confirmed Active Tobacco dependence Confirmed Active DM2 (diabetes mellitus, type 2) Confirmed 04/03/17 Active Incontinence of urine 3 Confirmed Active 1seen on MRI 10/2016, rec repeat imaging in October [address] Abd 09/18/16 at [facility], pending MRI 3urge and stress Social History Social History Type Response Smoking Status Current every day sm oker; Type: Cigarettes; Tobacco use times per day: 1/2 ppd; entered on: 12/24/17 Sex Patient Care team information Care Team Personnel Name: Sindy Bernal RN Position: [facility] RN Member Role: Primary Care Nurse Name: Graciela Thrasher RN Position: [facility] SN RN Member Role: Primary Care Nurse Name: Stevie Angel RN Position: [facility] RN Member Role: Primary Care Nurse Name: Rashmi Garrett MD Position: [facility] Physician - Primary Care Member Role: PCP Address: Address: [address] [place] [id number] Name: Keily Ortega RN Position: [facility] RN Member Role: Primary Care Nurse Name: Graciela Munroe RN Position: [facility] RN Member Role: Primary Care Nurse Name: Nichole Pichardo RN Position: [facility] RN Member Role: Primary Care Nurse Name: Melvin Whitfield RN Position: [facility] AMB Nurse Member Role: Primary Care Nurse Name: Phuong Berkowitz RN Position: [facility] RN Member Role: Primary Care Nurse Name: Joselyn Rain RN Position: [facility] Boiler Plant Operator Member Role: Primary Care Nurse Care Team Related Persons Name: IRA ROMERO Address: home [address] [place] [address] Name: JHON LARSON Address: home [address] [place] [address] Name: JHON LARSON Address: [address] [place] [address] Name: GALO CATALAN Name: NANCY CATALAN Address: home [address] [place] [address]
--- OUTSIDE RECORDS SUMMARY | 2023-03-25 08:26 | XMS_ITS | Continuity of Care Document ---
Author Name Unknown Organization [facility] Address [address] [place] [address]- Care Team Providers Care Mail Carrier And Clerk Name Role Phone Richardson QUIROZ, Leonora Pérez Primary Care Physician Encounter [facility] Date(s): 07/29/21 - 10/09/21 [facility] [address] [place], [place] [address] Attending Physician: Not on Staff, Attending MD Allergies, Adverse Reactions, Alerts Substance Reaction Severity Status morphine Active gabapentin swelling Active Lyrica dysphagia Active SEROquel body swelling - all over Act tony MetFORMIN Hydrochloride ER black tarry stool Active Immunizations Given and Recorded Vaccine Date Status Refusal Reason SARS-CoV-2 mRNA ([id number]) vax 05/14/21 Given influenza virus vaccine, inactivated [...] 09/09/21 13:08:00 EDT, Route to Pharmacy Electronically, [facility], Partial fill upon patient request if the prescription is for a sched... Start Date: 09/09/21 Status: Ordered Advair Diskus 500 mcg-50 mcg inhalation powder 1, puffs, Inhalation, 2 times a day, [id number], # 1 each, Refills 5, Tot. Refills 5, Maintenance, 05/15/21 9:20:00 EST, Powder, Route to Pharmacy Electronically, [id number], [facility], 162.5, cm, 05/10/21 14:47... Start Date: 05/15/21 Status: Ordered albuterol 0.083% inhalation solution 3 mL = 2.5 mg, Inhalation, Every 4 hours, PRN for wheezing, # 100 each, 2 Refills, Maintenance, 05/15/21 9:30:00 EST, Solution, [facility], 162.5, cm, 05/10/21 14:47:00 EST, Height, 90.9, kg, 02/02/21 5:59:00 EDT, Dry Weight Start Date: 05/15/21 Status: Ordered amitriptyline 25 mg oral tablet 25 mg, 1, tablet, By Mouth, Daily at bedtime, # 30 tablet, Refills 2, Tot. Refills 2, Maintenance, 08/30/21 12:06:00 EDT, Route to Pharmacy Electronically, [facility], Partial fill upon patient request if the prescription is for a sche... Start Date: 08/30/21 Status: Ordered cetirizine 10 mg oral tablet 1 tablet = 10 mg, By Mouth, Daily, # 30 tablet, 5 Refills, Maintenance, 08/28/21 9:07:00 EDT, Tablet, [facility], 162, cm, 08/22/21 9:46:00 EDT, Height, 86, kg, 07/23/21 0:58:00 EDT, Dry Weight Start Date: 08/28/21 Status: Ordered cholecalciferol 5000 intl units oral capsule 1 capsule = 125 mcg, By Mouth, Daily, with food, # 100 capsule, 2 Refills, Maintenance, 02/11/21 11:17:00 EST, Capsule, [facility]/pharmacy #[id number], Partial fill upon [...] 1 Refills, Maintenance, 07/08/21 9:45:00 EDT, [facility] PLEASE CANCEL ESTRADIOL VAGINAL CREAM, [...] tablet, 5 Refills, Maintenance, 08/28/21 9:07:00 EDT,Tablet, [facility], Partial fill upon patient request if the prescription is for a schedule II opioid drug., 162, cm, 08/22/21 9:46:00... Start Date: 08/28/21 Status: Ordered fluticasone 50 mcg/inh nasal spray See Instructions, USE 1 SPRAY IN BOTH NOSTRILS 2 TIMES A DAY, # 16 mL, 1 Refills, 07/08/21 9:44:00 EDT, [facility], 30, USE 1 SPRAY IN BOTH NOSTRILS 2 TIMES A DAY, 162.5, cm, :49:00 EDT, Height, 85.8, kg, 06/04/21 10:03:00 ES... Start Date: 07/08/21 Status: Ordered hydrochlorothiazide 12.5 mg oral tablet 1 tablet = 12.5 mg, By Mouth, Daily, TAKE 1 TABLET BY MOUTH EVERY DAY, # 30 capsule, 2 Refills, Maintenance, 08/28/21 9:07:00 EDT, [facility], 162, cm, 08/22/21 9:46:00 EDT, Height, 86, kg, 07/23/21 0:58:00 EDT, Dry Weight Start Date: 08/28/21 Status: Ordered ibuprofen 800 mg oral tablet 800 mg, 1, tablet, By Mouth, 3 times a day, PRN, # 90 tablet, Refills 1, Tot. Refills 1, Maintenance, Pain , Mild, 09/10/21 14:23:00 EDT, Route to Pharmacy Electronically, [facility],please fill 800mg instead of 600mg, 162, cm, [...] Refills, Maintenance, 06/18/21 21:04:00 EDT, Tablet, [facility], 162.5, cm, 06/17/21 13:04:00 EDT, Height, 85.8, kg, 06/04/21 10:03:00 EST, Dry Weight Start Date: 06/18/21 Status: Ordered Lantus 100 u/ml subcutaneous solution = 50 units, Subcutaneous Injection, Daily, # 15 mL, 5 Refills, Maintenance, 07/08/21 9:38:00 EDT, Solution, [facility]., ;, 162.5, cm, 07/08/21 8:49:00 EDT, Height, 85.8, kg, 06/04/21 10:03:00 EST, Dry Weight Start Date: 07/08/21 Status: Ordered lisinopril 20 mg oral tablet 20 mg, 1, tablet, By Mouth, Daily, # 90 tablet, Refills 3, Tot. Refills 3, Maintenance, 08/28/21 9:07:00 EDT, Route to Pharmacy Electronically, [facility], 162, cm, 08/22/21 9:46:00 EDT, Height, 86, kg, 07/23/21 0:58:00 EDT, Dry Weight Start Date: 08/28/21 Status: Ordered mirtazapine 30 mg oral tablet 1 tablet = 30 mg, By Mouth, Daily at bedtime, Maintenance, 05/24/19 9:12:00 EST, Tablet Start Date: 05/24/19 Status: Ordered omeprazole 40 mg oral enteric coated capsule 1 capsule, By Mouth, Daily, PRN NEEDED, # 30 capsule, 2 Refills, [facility], 162, cm, 09/06/21 13:04:00 EDT, Height, 86, kg, 07/23/21 0:58:00 EDT, Dry Weight Start Date: 10/02/21 Status: Ordered OxyCONTIN 30 mg oral tablet, extended release 1 tablet = 30 mg, By Mouth, Every 12 hours, # 56 tablet, 0 Refills, Maintenance, 10/02/21 8:02:00 EDT, ER Tablet, [facility], Partial fill upon patient request if the prescription is for a schedule II opioid drug. ON contract at [facility] Start Date: 10/02/21 Stop Date: 10/30/21 Status: Ordered Senna 8.6 mg oral tablet 8.6 mg, 1, tablet, By Mouth, Daily at bedtime, # 100 tablet, Refills 11, Tot. 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
--- OUTSIDE RECORDS SUMMARY | 2023-03-25 08:26 | XMS_ITS | Continuity of Care Document ---
Author Name Unknown Organization [facility] Address [address] [place] [address]- Care Team Providers Care Computer Education Professor Name Role Phone Richardson WHITE SHOE RAGGER, Leonora Pérez Primary Care Physician [facility]counter [facility] Date(s): 11/28/20 - 12/28/20 [facility] [address] [place] [address]- Allergies, Adverse Reactions, Alerts Substance Reaction Severity [...] 14:12:00 EST, Powder, Route to Pharmacy Electronically, [id number], [facility]/pharmacy #[id number], 162.56, cm, 03/27/20 11:36:00... Start Date: 04/05/20 Status: Ordered albuterol 0.083% inhalation solution 3 mL = 2.5 mg, Inhalation, Every 4 hours, PRN for wheezing, # 100 each, 2 Refills, Maintenance, 08/15/20 10:22:00 EDT, Solution, [facility]/pharmacy #[id number], 163, cm, 08/09/20 8:45:00 EDT, Height, 84.8, kg, 06/25/20 20:28:00 EDT, Dry Weight Start Date: 08/15/20 Status: Ordered amitriptyline 75 mg oral tablet 1 tablet = 75 mg, By Mouth, Daily at bedtime, # 30 tablet, 5 Refills, Maintenance, 08/16/20 11:58:00 EDT, Tablet, [facility]/pharmacy #[id number], Partial fill upon patient request if the prescription is for a schedule II opioid drug. INSTEAD OF 50mg SCRIPT PLEASE... Start Date: 08/16/20 Status: Ordered atorvastatin 20 mg oral tablet 1 tablet = 20 mg, By Mouth, Daily, # 90 tablet, 3 Refills, Maintenance, 04/05/20 14:11:00 EST, Tablet, [facility]/pharmacy #[id number], Partial fill upon patient request if the prescription is for a schedule II opioid drug., 162.56, cm, 03/27/20 11:36:00 EST, Heig... Start Date: 04/05/20 Status: Ordered capsaicin 0.025% topical cream 1 application, Topically, 3 times a day, # 45 Gm, 3 Refills, Maintenance, 11/01/19 15:25:00 EDT, Cream, [facility]/pharmacy #[id number], 1 application Topically 3 times a day, 163, cm, 11/01/19 14:40:00 EDT, Height, 80, kg, 10/29/19 0:29:00 EDT, Dry Weight Start Date: 11/01/19 Status: Ordered cetirizine 10 mg oral tablet 1 tablet = 10 mg, By Mouth, Daily, # 30 tablet, 5 Refills, Maintenance, 06/20/20 13:18:00 EDT, Tablet, [facility]/pharmacy #[id number], 162, cm, 05/24/20 9:01:00 EST, Height, 80, kg, 04/18/20 9:48:00 EST, Dry Weight Start Date: 06/20/20 Status: Ordered clonazePAM 0.5 mg oral tablet TAKE 1 TABLET BY MOUTH TWICE A DAY NEEDED Start Date: 06/02/19 Status: Ordered clotrimazole 1% topical cream 1 application, Topically, 2 times a day, # 30 Gm, 1 Refills, Maintenance, 12/05/20 12:42:00 EDT, Cream, [facility]/pharmacy #[id number], 1 application Topically 2 [...] 16 mL, 1 Refills, Maintenance, [id number], 30, USE 1 SPRAY IN BOTH NOSTRILS 2 TIMES A DAY, 163, cm, 08/15/20 14:23:00 EDT, Height,84.8, kg, 06/25/20 20:28:00 EDT, Dry Weight Start Date: 09/07/20 Status: Ordered hydrochlorothiazide 12.5 mg oral tablet 1 tablet = 12.5 mg, By Mouth, Daily, # 90 tablet, 3 Refills, Maintenance, 01/19/20 10:28:00 EDT, Tablet, [facility]/pharmacy #[id number], 163, cm, 12/26/19 13:58:00 EDT, Height, 80, kg, 10/29/19 0:29:00 EDT, Dry Weight Start Date: 01/19/20 Status: Ordered Januvia 100 mg oral tablet 1 tablet = 100 mg, By Mouth, Daily, # 30 tablet, 2 Refills, Maintenance, 10/29/20 14:07:00 EDT, Tablet, [facility]/pharmacy #[id number], 163, cm, 08/15/20 14:23:00 [...] 13:30:00 EST, Route to Pharmacy Electronically, [facility]/pharmacy #[id number], 162, cm, 04/21/20 11:33:00 EST, Height, 80, kg, 04/18/20 9:48:00 EST, Dry Weight Start Date: 05/07/20 Status: Ordered loratadine 10 mg oral capsule 1 capsule = 10 mg, By Mouth, Daily, # 40 capsule, 0 Refills, Maintenance, 08/15/20 15:59:00 EDT, Capsule, [facility]/pharmacy #[id number], Partial fill upon patient request if the prescription is for a schedule II opioid drug., 163, cm, 08/15/20 14:23:00 EDT, Heig... Start Date: 08/15/20 Status: Ordered Mapap 325 mg oral tablet 2 tablet = 650 mg, By Mouth, Every 4 hours, PRN for pain, not to exceed 3000 mg/day. instructions in greek, # 120 tablet, 2 Refills, Maintenance, 11/01/19 15:24:00 EDT, Tablet, [facility]/pharmacy #[id number], 163, cm, 11/01/19 14:40:00 [...] Refills, Maintenance, 04/05/20 14:08:00 EST, Tablet, [facility]/pharmacy #[id number], Partial fill upon patient request if the prescription is for a schedule II opioid drug., 162.56, cm, ... Start Date: 04/05/20 Status: Ordered omeprazole 40 mg oral enteric coated capsule 1 capsule = 40 mg, By Mouth, Daily, # 90 capsule, 0 Refills, Maintenance, 08/13/20 10:34:00 EDT, ECCapsule, [facility]/pharmacy #[id number], 163, cm, 08/09/20 8:45:00 [...] tablet, Refills 0, Tot. Refills 0, Acute 01/02/21 12:46:00 EDT, 12/05/20 12:46:00 EDT, Route to Pharmacy Electronically, [facility]/pharmacy #[id number], Partial fill upon patient request if the prescri... Start Date: 12/05/20 Stop Date: 01/02/21 Status: Ordered prazosin 2 mg oral capsule TAKE 1 CAPSULE BY MOUTH EVERYDAY AT BEDTIME Start Date: 08/09/20 Status: Ordered Senna 8.6 mg oral tablet 8.6 mg, 1, tablet, By Mouth, Daily at bedtime, # 100 tablet, Refills 11, Tot. Refills 11, Maintenance, 10/30/20 11:37:00 EDT, Route to Pharmacy Electronically, [facility]/pharmacy #[id number], 163, cm, 08/15/20 14:23:00 [...] 11 Refills, Maintenance, 04/05/20 14:17:00 EST, [facility]/pharmacy #[id number], Partial fill [...] 12:45:00 EDT, Route to Pharmacy Electronically, [facility]/pharmacy #[id number], 165, cm, 11/22/20 8:40:00 EDT, Height, 84.8, kg, 06/25/20 20:28:00... Start Date: 12/05/20 Stop Date: 01/30/21 Status: Ordered Trulicity Pen 0.75 mg/0.5 mL subcutaneous solution 0.5 mL = 0.75 mg, Subcutaneous Injection, Every week, rotate injection sites, # 2 mL, 5 Refills, Maintenance, 10/31/20 15:27:00 EDT, Solution, [facility]/pharmacy #[id number], Partial fill [...]
--- OUTSIDE RECORDS SUMMARY | 2023-03-25 08:26 | XMS_ITS | Continuity of Care Document ---
Author Name Unknown Organization [facility] Address [address] [place] [address]- Care Team Providers Care Manager Of Sustainability Name Role Phone Richardson QUIROZ, Leonora Pérez Primary Care Physician [facility]): 07/16/21 - 08/15/21 [facility] [address] [place] [address]- Allergies, Adverse Reactions, Alerts Substance Reaction Severity Status morphine Active gabapentin swelling Active Lyrica dysphagia Active MetFORMIN Hydrochloride ER black tarry stool Active SEROquel body swelling - all over Act tony Immunizations Given and Recorded Vaccine Date Status Refusal Reason SARS-CoV-2 mRNA ([id number]) vax 05/14/21 Given influenza virus vaccine, inactivated [...] 07/18/21 15:15:00 EDT, Route to Pharmacy Electronically, [facility], Partial fill upon patient request if the prescription is for a sched... Start Date: 07/18/21 Status: Ordered Advair Diskus 500 mcg-50 mcg inhalation powder 1, puffs, Inhalation, 2 times a day, j45.909, # 1 each, Refills 5, Tot. Refills 5, Maintenance, 05/15/21 9:20:00 EST, Powder, Route to Pharmacy Electronically, [id number], [facility], 162.5, cm, 05/10/21 14:47... Start Date: 05/15/21 Status: Ordered albuterol 0.083% inhalation solution 3 mL = 2.5 mg, Inhalation, Every 4 hours, PRN for wheezing, # 100 each, 2 Refills, Maintenance, 05/15/21 9:30:00 EST, Solution, [facility], 162.5, cm, 05/10/21 14:47:00 EST, Height, 90.9, kg, 02/02/21 5:59:00 EDT, Dry Weight Start Date: 05/15/21 Status: Ordered amitriptyline 25 mg oral tablet 25 mg, 1, tablet, By Mouth, Daily at bedtime, Dose decrease, # 30 tablet, Refills 0, Tot. Refills 0, Maintenance, 08/01/21 15:07:00 EDT, Route to Pharmacy Electronically, [facility], Partial fill upon patient request if the prescriptio... Start Date: 08/01/21 Status: Ordered atorvastatin 40 mg oral tablet 1 tablet = 40 mg, By Mouth, Daily, # 90 tablet, 3 Refills, Maintenance, 07/08/21 9:47:00 EDT, Tablet, [facility], Partial fill upon patient request if the prescription is for a schedule II opioid drug., 162.5, cm, 07/08/21 8:49:00 EDT,... Start Date: 07/08/21 Status: Ordered cetirizine 10 mg oral tablet 1 tablet = 10 mg, By Mouth, Daily, # 30 tablet, 5 Refills, Maintenance, 07/08/21 9:44:00 EDT, Tablet, [facility] [place] 162.5, cm, 07/08/21 8:49:00 EDT, Height, 85.8, [...] Maintenance, 07/08/21 9:45:00 EDT, Cream, [facility], PLEASE CANCEL ESTRADIOL VAGINAL CREAM, 1 [...] tablet, 5 Refills, Maintenance, 07/08/21 9:43:00 EDT,Tablet, [facility], Partial fill upon patient request if the prescription is for a schedule II opioid drug., 162.5, cm, 07/08/21 8:49:0... Start Date: 07/08/21 Status: Ordered fluticasone 50 mcg/inh nasal spray See Instructions, USE 1 SPRAY IN BOTH NOSTRILS 2 TIMES A DAY, # 16 mL, 1 Refills, 07/08/21 9:44:00 EDT, [facility] [place] 30, USE 1 SPRAY IN BOTH NOSTRILS 2 TIMES A DAY, 162.5, cm, :49:00 EDT, Height, 85.8, kg, 06/04/21 10:03:00 ES... Start Date: 07/08/21 Status: Ordered hydrochlorothiazide 12.5 mg oral tablet 1 tablet = 12.5 mg, By Mouth, Daily, TAKE 1 TABLET BY MOUTH EVERY DAY, # 30 capsule, 2 Refills, Maintenance, 05/15/21 9:20:00 EST, [facility] [place] 162.5, cm, 05/10/21 14:47:00 EST, Height, 90.9, [...] 3 Refills, Maintenance, 06/18/21 21:04:00 EDT, Tablet, [facility] [place] 162.5, cm, 06/17/21 13:04:00 EDT, Height, 85.8, kg, 06/04/21 10:03:00 EST, Dry Weight Start Date: 06/18/21 Status: Ordered Lantus 100 u/ml subcutaneous solution = 50 units, Subcutaneous Injection, Daily, # 15 mL, 5 Refills, Maintenance, 07/08/21 9:38:00 EDT, Solution, [facility] [place] ;, 162.5, cm, 07/08/21 8:49:00 EDT, Height, [...] 1 Refills, Maintenance, 06/24/21 16:30:00 EDT, Tablet, [facility] Partial fill upon patient [...] Maintenance, 05/09/21 10:45:00 EST, EC Capsule, [facility], 162.5, cm, 03/22/21 14:58:00 EST, Height, 90.9,kg, 02/02/21 5:59:00 EDT, Dry Weight Start Date: 05/09/21 Status: Ordered OxyCONTIN 15 mg oral tablet, extended release 1 tablet = 15 mg, By Mouth, Every 12 hours, # 56 tablet, 0 Refills, Maintenance, 08/03/21 7:30:00 EDT, ER Tablet, [facility], Partial fill upon patient request if [...] 9:39:00 EDT, Route to Pharmacy Electronically, [facility], 162.5, cm, 07/08/21 8:49:00 EDT, Height, 85.8, kg, 06/04/21 10:0... Start Date: 07/08/21 Status: Ordered tiZANidine 4 mg oral tablet 4 mg, 1, tablet, By Mouth, Every 8 hours, PRN, # 84 tablet, Refills 1, Tot. Refills 1, Maintenance,Spasm, 06/24/21 19:16:00 EDT, Route to Pharmacy Electronically, [facility], 162.5, cm, 06/24/21 15:35:00 EDT, Height, [...] 0 Refills, Maintenance, 08/01/21 14:59:00 EDT, Tablet, [facility]... 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
--- OUTSIDE RECORDS SUMMARY | 2023-03-25 08:26 | XMS_ITS | Continuity of Care Document ---
Author Name Unknown Organization [facility] Address [address] [place] [address]- Care Team Providers Care Pharm Tech Name Role Phone Richardson QUIROZ, Leonora Pérez Primary Care Physician [facility]): 10[facility]28[facility]21 - 11/27/21 [facility] [address] [place], [place] [address] Allergies, Adverse Reactions, Alerts Substance Reaction Severity Status morphine Active gabapentin swelling Active Lyrica dysphagia Active SEROquel body swelling - all over Act tony MetFORMIN Hydrochloride ER black tarry stool Active Immunizations Given and Recorded Vaccine Date Status Refusal Reason SARS-CoV-2 mRNA ([id number]-[id number]) vax 05/14/21 Given influenza virus vaccine, inactivated [...] 10/22/21 9:23:00 EDT, Route to Pharmacy Electronically, [facility], Partial fill uponpatient request if the prescription is for a schedu... Start Date: 10/22/21 Status: Ordered Advair Diskus 500 mcg-50 mcg inhalation powder 1, puffs, Inhalation, 2 times a day, j45.909, # 1 each, Refills 5, Tot. Refills 5, Maintenance, 05/15/21 9:20:00 EST, Powder, Route to Pharmacy Electronically, [id number], [facility], 162.5, cm, 05/10/21 14:47... Start Date: 05/15/21 Status: Ordered albuterol 0.083% inhalation solution 3 mL = 2.5 mg, Inhalation, Every 4 hours, PRN for wheezing, # 100 each, 2 Refills, Maintenance, 11/22/21 12:30:00 EDT, Solution, [facility], 162, cm, 11/14/21 11:01:00 EDT, Height, 86, kg, 07/23/21 0:58:00 EDT, Dry Weight Start Date: 11/22/21 Status: Ordered amitriptyline 25 mg oral tablet 25 mg, 1, tablet, By Mouth, Daily at bedtime, # 30 tablet, Refills 2, Tot. Refills 2, Maintenance, 08/30/21 12:06:00 EDT, Route to Pharmacy Electronically, [facility], Partial fill upon patient request if [...] Refills, Maintenance, 08/28/21 9:07:00 EDT, Tablet, [facility] 162, cm, 08/22/21 9:46:00 EDT, Height, 86, kg, 07/23/21 0:58:00 EDT, Dry Weight Start Date: 08/28/21 Status: Ordered cholecalciferol 5000 intl units oral capsule 1 capsule = 125 mcg, By Mouth, Daily, with food, # 100 capsule, 2 Refills, Maintenance, 02/11/21 11:17:00 EST, Capsule, [facility]/pharmacy #[id number], [...] Refills, Maintenance, 07/08/21 9:45:00 EDT, Cream, [facility]., PLEASE CANCEL ESTRADIOL VAGINAL CREAM, 1 [...] tablet, 0 Refills, Maintenance, 10/24/2219:09:00 EDT, Tablet, [facility] Partial fill upon patient request if the prescription is for a schedule II opioid drug., 2 tablet By... Start Date: 10/23/21 Status: Ordered duloxetine 60 mg oral enteric coated capsule 2 capsule = 120 mg, By Mouth, Daily, # 60 capsule, 5 Refills, Maintenance, 11/14/21 11:41:00 EDT, Capsule, [facility] Partial fill upon patient request. NOT INCREASED DOSE. Please cancel all other Duloxetine scripts, 162, cm, 11/14/21... Start Date: 11/14/21 Status: Ordered empagliflozin 10 mg oral tablet 1 tablet = 10 mg, By Mouth, Daily in AM, # 30 tablet, 5 Refills, Maintenance, 08/28/21 9:07:00 EDT,Tablet, [facility] Partial fill upon patient request if the prescription is for a schedule II opioid drug., 162, cm, 08/22/21 9:46:00... Start Date: 08/28/21 Status: Ordered fluticasone 50 mcg/inh nasal spray See Instructions, USE 1 SPRAY IN BOTH NOSTRILS 2 TIMES A DAY, # 16 mL, 1 Refills, 07/08/21 9:44:00 EDT, [facility] 30, USE 1 SPRAY IN BOTH [...] Mouth, Daily, # 30 tablet, 5 Refills, [facility], 162, cm, 11/14/21 11:01:00EDT, Height, 86, kg, 07/23/21 0:58:00 EDT, Dry Weight Start Date: 11/19/21 Status: Ordered ibuprofen 800 mg oral tablet 800 mg, 1, tablet, By Mouth, 3 times a day, PRN, # 90 tablet, Refills 1, Tot. Refills 1, Maintenance, Pain , Mild, 10/31/21 13:59:00 EDT, Route to Pharmacy Electronically, [facility],please fill 800mg instead of 600mg, 162, [...] Maintenance, 06/18/21 21:04:00 EDT, Tablet, [facility], 162.5, cm, 06/17/21 13:04:00 EDT, Height, 85.8, kg, 06/04/21 10:03:00 EST, Dry Weight Start Date: 06/18/21 Status: Ordered Lantus 100 u/ml subcutaneous solution = 50 units, Subcutaneous Injection, Daily, # 15 mL, 5 Refills, Maintenance, 07/08/21 9:38:00 EDT, Solution, [facility], ;, 162.5, cm, 07/08/21 8:49:00 EDT, Height, 85.8, kg, 06/04/21 10:03:00 EST, Dry Weight Start Date: 07/08/21 Status: Ordered lisinopril 20 mg oral tablet 20 mg, 1, tablet, By Mouth, Daily, # 90 tablet, Refills 3, Tot. Refills 3, Maintenance, 08/28/21 9:07:00 EDT, Route to Pharmacy Electronically, [facility], 162, cm, 08/22/21 9:46:00 EDT, Height, 86, kg, 07/23/21 0:58:00 EDT, Dry Weight Start Date: 08/28/21 Status: Ordered Melatonin 10 mg oral tablet 1 tablet = 10 mg, By Mouth, Daily at bedtime, # 30 each, 5 Refills, Maintenance, 11/14/21 11:42:00 EDT, [facility], Partial fill upon patient request if [...] PRN NEEDED, # 30 capsule, 2 Refills, [facility], 162, cm, 09/06/21 13:04:00 EDT, Height, 86, kg, 07/23/21 0:58:00 EDT, Dry Weight Start Date: 10/02/21 Status: Ordered OxyCONTIN 15 mg oral tablet, extended release 1 tablet = 15 mg, By Mouth, Every 12 hours, # 56 tablet, 0 Refills, Maintenance, 11/26/21 8:00:00 EDT, ER Tablet, [facility], Partial fill upon patient request if the prescription is for a schedule II opioid drug. For fill 11/26/21, dos... Start Date: 11/26/21 Stop Date: 12/24/21 Status: Ordered OxyCONTIN 30 mg oral tablet, extended release 1 tablet = 30 mg, By Mouth, Every 12 hours, # 56 tablet, 0 Refills, Maintenance, 10/29/21 17:34:00 EDT, ER Tablet, [facility]/pharmacy #[id number], Partial fill upon patient request if the prescription is for a schedule II opioid drug. ON contract at [facility], 30mg E... Start Date: 10/29/21 Stop Date: 11/26/21 Status: Ordered Senna 8.6 mg oral tablet 8.6 mg, 1, tablet, By Mouth, Daily at bedtime, # 100 tablet, Refills 11, Tot. Refills 11, Maintenance, 07/08/21 9:39:00 EDT, Route to Pharmacy Electronically, [facility], 162.5, cm, 07/08/21 8:49:00 EDT, Height, 85.8, kg, 06/04/21 10:0... Start Date: 07/08/21 Status: Ordered Tessalon Perles 100 mg oral capsule 1 capsule = 100 mg, By Mouth, 3 times a day, for 10 days, # 30 capsule, 0 Refills, Acute 12/02/21 13:25:00 EDT, 11/22/21 13:25:00 EDT, Capsule, [facility], Partial fill upon patient request if the prescription is for a schedule II opio... 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
--- OUTSIDE RECORDS SUMMARY | 2023-03-25 08:26 | XMS_ITS | Continuity of Care Document ---
Author Name Unknown Organization [facility] Address [address] [place] [address]- Care Team Providers Care Cafe Manager Name Role Phone Richardson CURER FOAM RUBBER, Leonora Pérez Primary Care Physician [facility]): 12/28/20 - 01/27/21 [facility] [address] [place] [address]- Allergies, Adverse Reactions, Alerts Substance Reaction Severity [...] 01/16/21 19:30:00 EDT, Route to Pharmacy Electronically, [facility]/pharmacy #[id number], Partial fill upon patient request if the prescription is for a schedule II o... Start Date: 01/16/21 Status: Ordered Advair Diskus 500 mcg-50 mcg inhalation powder 1, puffs, Inhalation, 2 times a day, j45.909, # 1 each, Refills 11, Tot. Refills 11, Maintenance, 04/05/20 14:12:00 EST, Powder, Route to Pharmacy Electronically, [id number], [facility]/pharmacy #[id number], 162.56, cm, 03/27/20 11:36:00... Start Date: 04/05/20 Status: Ordered albuterol 0.083% inhalation solution 3 mL = 2.5 mg, Inhalation, Every 4 hours, PRN for wheezing, # 100 each, 2 Refills, Maintenance, 08/15/20 10:22:00 EDT, Solution, [facility]/pharmacy #[id number], 163, cm, 08/09/20 8:45:00 EDT, Height, 84.8, kg, 06/25/20 20:28:00 EDT, Dry Weight Start Date: 08/15/20 Status: Ordered amitriptyline 75 mg oral tablet 1 tablet = 75 mg, By Mouth, Daily at bedtime, # 30 tablet, 5 Refills, Maintenance, 08/16/20 11:58:00 EDT, Tablet, [facility]/pharmacy #[id number], Partial fill upon patient request if the prescription is for a schedule II opioid drug. INSTEAD OF 50mg SCRIPT PLEASE... Start Date: 08/16/20 Status: Ordered atorvastatin 20 mg oral tablet 1 tablet = 20 mg, By Mouth, Daily, # 90 tablet, 3 Refills, Maintenance, 04/05/20 14:11:00 EST, Tablet, [facility]/pharmacy #[id number], Partial fill upon patient request if the prescription is for a schedule II opioid drug., 162.56, cm, 03/27/20 11:36:00 EST, Heig... Start Date: 04/05/20 Status: Ordered capsaicin 0.025% topical cream 1 application, Topically, 3 times a day, # 45 Gm, 3 Refills, Maintenance, 11/01/19 15:25:00 EDT, Cream, [facility]/pharmacy #[id number], 1 application Topically 3 times a [...] 16 mL, 1 Refills, Maintenance, [id number], 30, USE 1 SPRAY IN BOTH NOSTRILS [...] 2 Refills, Maintenance, 10/29/20 14:07:00 EDT, Tablet, [facility]pharm[id number], 163, cm, 08/15/20 14:23:00 EDT, [...] 5 Refills, Maintenance, 10/11/20 8:15:00 EDT, [facility]/pharmacy #[id number], 1 patch Topically Daily,Instr:For chronic radicular back pain, 163, cm, 08/15/20 14:23:00 EDT, Height, 84.8, kg,... Start Date: 10/11/20 Status: Ordered lisinopril 20 mg oral tablet 20 mg, 1, tablet, By Mouth, Daily, # 30 tablet, Refills 11, Tot. Refills 11, Maintenance, 05/07/20 13:30:00 EST, Route to Pharmacy Electronically, [facility]/pharmacy #[id number], 162, cm, 04/21/20 11:33:00 EST, Height, 80, kg, 04/18/20 9:48:00 EST, Dry Weight Start Date: 05/07/20 Status: Ordered loratadine 10 mg oral capsule 1 capsule = 10 mg, By Mouth, Daily, # 40 capsule, 0 Refills, Maintenance, 08/15/20 15:59:00 EDT, Capsule, [facility]/pharmacy #[id number], Partial fill upon patient request if the prescription is for a schedule II opioid drug., 163, cm, 08/15/20 14:23:00 EDT, Heig... Start Date: 08/15/20 Status: Ordered mirabegron 25 mg oral tablet, extended release 1 tablet = 25 mg, By Mouth, Daily, do not crush or chew, # 30 tablet, 11 Refills, Maintenance, 12/31/20 15:58:00 EDT, ER Tablet, [facility]/pharmacy #[id number], Partial fill upon patient request if [...] Refills, Maintenance, 04/05/20 14:08:00 EST, Tablet, [facility]/pharmacy #[id number], Partial fill upon patient request if [...] Dry Weight Start Date: 01/11/21 Status: Ordered Oxycodone = 10 mg, By [...] 01/01/21 15:40:00 EDT, Route to Pharmacy Electronically, [facility]/pharmacy #[id number], Partial fill upon patient request if [...] 15:46:00 EST, Route to Pharmacy Electronically, [facility]/pharmacy #[id number], Partial fill upon patient request if [...] 12/05/20 12:45:00 EDT, Route to Pharmacy Electronically, [facility]/pharmacy #[id number], 165, cm, 11/22/20 8:40:00 EDT, Height, 84.8, kg, 06/25/20 20:28:00... Start Date: 12/05/20 Stop Date: 01/30/21 Status: Ordered Trulicity Pen 0.75 mg/0.5 mL subcutaneous solution 0.5 mL = 0.75 mg, Subcutaneous Injection, Every week, rotate injection sites, # 2 mL, 5 Refills, Maintenance, 10/31/20 15:27:00 EDT, Solution, [facility]/pharmacy #[id number], Partial fill upon patient request ifthe [...]
--- OUTSIDE RECORDS SUMMARY | 2023-03-25 08:26 | XMS_ITS | Continuity of Care Document ---
Author Name Unknown Organization [facility] Address [address] [place] [address]- Care Team Providers Care Butter Maker Name Role Phone Richardson QUIROZ, Leonora Pérez Primary Care Physician [facility] 08[facility]20 - 09/13/20 [facility] [address] [place] [address]- Allergies, Adverse Reactions, Alerts Substance Reaction Severity [...] 14:12:00 EST, Powder, Route to Pharmacy Electronically, [id number], [facility]/pharmacy #[id number], 162.56, [...] 5 Refills, Maintenance, 08/16/20 11:58:00 EDT, Tablet, [facility]/pharmacy [...] 1 Refills, Maintenance, 07/30/20 19:49:00 EDT, Cream, [facility]/pharmacy [...] 5 Refills, Maintenance, 03/02/20 11:18:00 EST, Capsule, [facility]/pharmacy #[id number], Partial fill upon patient request. NOT INCREASED DOSE, 163, cm, 12/25/2012:58:00 EDT, Height, 80, kg, 10/29/19 0:29:00 EDT,... Start Date: 03/02/20 Status: Ordered fluticasone 50 mcg/inh nasal spray See Instructions, USE 1 SPRAY IN BOTH NOSTRILS 2 TIMES A DAY, # 16 mL, 1 Refills, Maintenance, [facility], 30, USE 1 SPRAY IN BOTH NOSTRILS 2 TIMES A DAY, 163, cm, 08/15/20 14:23:00 EDT, Height,84.8, kg, 06/25/20 20:28:00 EDT, Dry Weight Start Date: 09/07/20 Status: Ordered hydrochlorothiazide 12.5 mg oral tablet 1 tablet = 12.5 mg, By Mouth, Daily, # 90 tablet, 3 Refills, Maintenance, 01/19/20 10:28:00 EDT, Tablet, [facility]/pharmacy #[id number], 163, cm, 12/26/19 13:58:00 EDT, Height, 80, kg, 10/29/19 0:29:00 EDT, Dry Weight Start Date: 01/19/20 Status: Ordered Januvia 100 mg oral tablet 1 tablet = 100 mg, By Mouth, Daily, # 30 tablet, 2 Refills, Maintenance, 08/27/20 11:00:00 EDT, Tablet, [facility]/pharmacy #[id number], 163, cm, 08/15/20 14:23:00 EDT, Height, 84.8, kg, 06/25/20 20:28:00 EDT, Dry Weight Start Date: 08/27/20 Status: Ordered Lantus 100 u/ml subcutaneous solution = 40 units, Subcutaneous Injection, Daily, # 12 mL, 11 Refills, Maintenance, 05/07/20 13:24:00 EST,Solution, [facility]/pharmacy #[id number], increased dose 12/26/19, 162, cm, 04/21/20 11:33:00 EST, Height, 80, kg, 04/18/20 9:48:00 EST, Dry Weight Start Date: 05/07/20 Status: Ordered lidocaine 5% topical film 1 patch, Topically, Daily, For chronic radicular back pain, # 30 patch, 5 Refills, Maintenance, 03/09/20 8:53:00 EST, [facility]/pharmacy #[id number], 1 patch Topically Daily,Instr:For chronic radicular back pain, 163, cm, 12/26/19 13:58:00 EDT, Height, 80, kg, 07... Start Date: 03/09/20 Status: Ordered lisinopril 20 mg oral tablet 20 mg, 1, tablet, By Mouth, Daily, # 30 tablet, Refills 11, Tot. Refills 11, Maintenance, 05/07/20 13:30:00 EST, Route to Pharmacy Electronically, [facility]/pharmacy #[id number], 162, cm, 04/21/20 11:33:00 [...] 28 days, on contract at [facility], # 56 tablet, 0 Refills, Acute 09/24/20 [...] 06/04/20 12:46:00 EST, Route to Pharmacy Electronically, [facility]/pharmacy #[id number], 162, cm, 05/24/20 9:01:00 EST, Height, 80, kg, 04/18/20 9:48:00 EST, Dry... Start Date: 06/04/20 Status: Ordered Soma 350 mg oral tablet 350 mg, 1, tablet, By Mouth, 3 times a day, # 9 tablet, Refills 0, Tot. Refills 0, Maintenance, 05/04/20 15:46:00 EST, Route to Pharmacy Electronically, [facility]/pharmacy #[id number], Partial [...] [address] Abd 09/18/16 at [facility], pending MRI 3urge and stress Social History Social History Type Response Tobacco Use: Pt states she q uit smoking 1 week ago. Sex
--- OUTSIDE RECORDS SUMMARY | 2023-03-25 08:26 | XMS_ITS | Continuity of Care Document ---
Author Name Unknown Organization [facility] Address [address] [place] [address]- Care Team Providers Care Java Groovy Developer Name Role Phone Richardson QUIROZ, Leonora Pérez Primary Care Physician [phone] [facility]counter [facility] Date[facility]s): 09/[facility]/21 - 10/06/21 [facility] [address], [place] [address] Encounter Diagnosis INA (stress urinary incontinence, female)(Discharge [...] Vaccine Date Status Refusal Reason SARS-CoV-2 mRNA ([id number]) vax 05/14/21 Given influenza virus vaccine, inactivated [...] Not Available/Off Unit 2? Unknown: Resend to [facility]. Resend to [facility]. Medications acetaminophen 325 mg oral tablet 650 mg, 2, tablet, By Mouth, 3 times a day, # 100 tablet, Refills 1, Tot. Refills 1, Maintenance, 09/09/21 13:08:00 EDT, Route to Pharmacy Electronically, [facility], [place], Partial fill upon patient request if the prescription is for a sched... Start Date: 09/09/21 Status: Ordered Advair Diskus 500 mcg-50 mcg inhalation powder 1, puffs, Inhalation, 2 times a day, j45.909, # 1 each, Refills 5, Tot. Refills 5, Maintenance, 05/15/21 9:20:00 EST, Powder, Route to Pharmacy Electronically, [id number], [facility], [place], 162.5, cm, 05/10/21 14:47... Start Date: 05/15/21 Status: Ordered albuterol 0.083% inhalation solution 3 mL = 2.5 mg, Inhalation, Every 4 hours, PRN for wheezing, # 100 each, 2 Refills, Maintenance, 05/15/21 9:30:00 EST, Solution, [facility], [place], 162.5, cm, 05/10/21 14:47:00 EST, Height, 90.9, kg, 02/02/21 5:59:00 EDT, Dry Weight Start Date: 05/15/21 Status: Ordered amitriptyline 25 mg oral tablet 25 mg, 1, tablet, By Mouth, Daily at bedtime, # 30 tablet, Refills 2, Tot. Refills 2, Maintenance, 08/30/21 12:06:00 EDT, Route to Pharmacy Electronically, [facility], [place], Partial fill upon patient request if the prescription is for a sche... Start Date: 08/30/21 Status: Ordered cetirizine 10 mg oral tablet 1 tablet = 10 mg, By Mouth, Daily, # 30 tablet, 5 Refills, Maintenance, 08/28/21 9:07:00 EDT, Tablet, [facility], [place], 162, cm, 08/22/21 9:46:00 EDT, Height, 86, [...] 1 Refills, Maintenance, 07/08/21 9:45:00 EDT, Cream, [facility], PLEASE CANCEL ESTRADIOL VAGINAL CREAM, 1 [...] 5 Refills, Maintenance, 02/18/21 15:09:00 EST, Capsule, [facility]/pharmacy #[id number], Partial fill upon patient request. NOT INCREASED DOSE, 155, cm, 02/18/2114:54:00 EST, Height, 90.9, kg, 02/02/21 5:59:00 ED... Start Date: 02/18/21 Status: Ordered empagliflozin 10 mg oral tablet 1 tablet = 10 mg, By Mouth, Daily in AM, # 30 tablet, 5 Refills, Maintenance, 08/28/21 9:07:00 EDT,Tablet, [facility], [place], Partial fill upon patient request if the prescription is for a schedule II opioid drug., 162, cm, 08/22/21 9:46:00... Start Date: 08/28/21 Status: Ordered fluticasone 50 mcg/inh nasal spray See Instructions, USE 1 SPRAY IN BOTH NOSTRILS 2 TIMES A DAY, # 16 mL, 1 Refills, 07/08/21 9:44:00 EDT, [facility]., 30, USE 1 SPRAY IN BOTH NOSTRILS 2 TIMES A DAY, 162.5, cm, :49:00 EDT, Height, 85.8, kg, 06/04/21 10:03:00 ES... Start Date: 07/08/21 Status: Ordered hydrochlorothiazide 12.5 mg oral tablet 1 tablet = 12.5 mg, By Mouth, Daily, TAKE 1 TABLET BY MOUTH EVERY DAY, # 30 capsule, 2 Refills, Maintenance, 08/28/21 9:07:00 EDT, [facility]., 162, cm, 08/22/21 9:46:00 EDT, Height, 86, kg, 07/23/21 0:58:00 EDT, Dry Weight Start Date: 08/28/21 Status: Ordered ibuprofen 800 mg oral tablet 800 mg, 1, tablet, By Mouth, 3 times a day, PRN, # 90 tablet, Refills 1, Tot. Refills 1, Maintenance, Pain , Mild, 09/10/21 14:23:00 EDT, Route to Pharmacy Electronically, [facility], [place],please fill 800mg instead of 600mg, 162, cm, ... Start Date: 09/10/21 Status: Ordered Insulin Syringe, [...] 06/18/21 21:04:00 EDT, Tablet, [facility] [place], 162.5, cm, 06/17/21 13:04:00 EDT, Height, 85.8, kg, 06/04/21 10:03:00 EST, Dry Weight Start Date: 06/18/21 Status: Ordered Lantus 100 u/ml subcutaneous solution = 50 units, Subcutaneous Injection, Daily, # 15 mL, 5 Refills, Maintenance, 07/08/21 9:38:00 EDT, Solution, [facility], [place], ;, 162.5, cm, 07/08/21 8:49:00 EDT, Height, 85.8, kg, 06/04/21 10:03:00 EST, Dry Weight Start Date: 07/08/21 Status: Ordered lisinopril 20 mg oral tablet 20 mg, 1, tablet, By Mouth, Daily, # 90 tablet, Refills 3, Tot. Refills 3, Maintenance, 08/28/21 9:07:00 EDT, Route to Pharmacy Electronically, [facility], [place], 162, cm, 08/22/21 9:46:00 EDT, Height, 86, kg, 07/23/21 0:58:00 EDT, Dry Weight Start Date: 08/28/21 Status: Ordered mirtazapine 30 mg oral tablet 1 tablet = 30 mg, By Mouth, Daily at bedtime, Maintenance, 05/24/19 9:12:00 EST, Tablet Start Date: 05/24/19 Status: Ordered omeprazole 40 mg oral enteric coated capsule 1 capsule, By Mouth, Daily, PRN NEEDED, # 30 capsule, 2 [facility]ills[facility], cm, 09/06/21 13:04:00 EDT, Height, 86, kg, 07/23/21 0:58:00 EDT, Dry Weight Start Date: 10/02/21 Status: Ordered OxyCONTIN 30 mg oral tablet, extended release 1 tablet = 30 mg, By Mouth, Every 12 hours, # 56 tablet, 0 Refills, Maintenance, 10/02/21 8:02:00 EDT, ER Tablet, [facility], [place], Partial fill upon patient request if the prescription is for a schedule II opioid drug. ON contract at [facility],... Start Date: 10/02/21 Stop Date: 10/30/21 Status: Ordered Senna 8.6 mg oral tablet 8.6 mg, 1, tablet, By Mouth, Daily at bedtime, # 100 tablet, Refills 11, Tot. Refills 11, Maintenance, 07/08/21 9:39:00 EDT, Route to Pharmacy Electronically, [facility], [place], 162.5, cm, 07/08/21 8:49:00 EDT, Height, 85.8, kg, 06/04/21 10:0... 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 Jb Fabian [phone](Confirmed) Active Syncope and collapse(Confirmed) Active Tobacco dependence(Confirmed) Active DM2 (diabetes mellitus, type 2)(Confirmed) 04/03/17 Active Incontinence of urine(Confirmed) 3 Active 1seen on MRI 10/2016, rec repeat imaging in October [address] Abd 09/18/16 at [facility], pending MRI 3urge and stress Diagnosis Diagnosis Type Effective Dates Health Status Cl inical Service Informant INA (stress urinary incontinence, female) Discharge Diagnosis 02/11/19 Social History Social History Type Response Smoking Status Current every day kaitlin valle; Type: Cigarettes; Tobacco use times per day: 1/2 ppd; entered on: 12/24/17 Sex
--- OUTSIDE RECORDS SUMMARY | 2023-03-25 08:26 | XMS_ITS | Continuity of Care Document ---
Author Name Unknown Organization [facility] Address [address] [place] [address]- Care Team Providers Care Supervisor Gluing Name Role Phone Richardson QUIROZ, Leonora Pérez Primary Care Physician [phone] [facility]counter [facility] Date(s): 01/10/20 - 02/09/20 [facility] [address], [place] [address] Allergies, Adverse Reactions, Alerts Substance Reaction Severity [...] 12:48:00 EST, Powder, Route to Pharmacy Electronically, [id number], [id number], 158, cm, 04/26/19 9:58:00 EST, [...] not to exceed 3000 mg/day. instructions in russian, # 120 tablet, 2 Refills, Maintenance, 11/01/19 [...] for 28 days, on contract at [facility]., # 56 tablet, 0 Refills, Acute 02/23/20 17:14:00 EST, 01/26/20 17:14:00 EDT, [facility]/pharmacy #[id number], Partial fill upon patient request, 163, cm, 12/26/19 13:58:00 EDT,... Start Date: 01/26/20 Stop Date: 02/23/20 Status: Ordered Pen [place], 31 G x 5 mm BD Ultra [...] 06/10/19 16:12:00 EST, Route to Pharmacy Electronically, [facility]/pharmacy #[id number], 160, cm, 06/01/19 14:08:00 [...] CT Abd 09/18/16 at [facility], pending MRI 3urge and stress Social History Social History Type Response Tobacco Use: Pt states she q uit smoking 1 week ago. Sex Female
--- OUTSIDE RECORDS SUMMARY | 2023-03-25 08:26 | XMS_ITS | Continuity of Care Document ---
Author Name Unknown Organization [facility] Address [address] [place] [address]- Care Team Providers Care Funeral Car Driver Name Role Phone Richardson SALON STYLIST, Leonora Pérez Primary Care Physician [facility] Date(s): 12/05/21 - 01/04/22 [facility] [address] [place] [address]- Allergies, Adverse Reactions, Alerts Substance Reaction Severity Status morphine Active gabapentin swelling Active SEROquel body swelling - all over Act tony MetFORMIN Hydrochloride ER black tarry stool Active Lyrica dysphagia Active Immunizations Given and Recorded Vaccine Date Status Refusal Reason pneumococcal 20-valent conjugate vaccine 12/26/21 Given SARS-CoV-2 mRNA ([id number]) vax 05/14/21 Given influenza virus vaccine, inactivated [...] 9:20:00 EST, Powder, Route to Pharmacy Electronically, [id number], [facility], 162.5, cm, 05/10/21 14:47... Start Date: 05/15/21 Status: Ordered albuterol 0.083% inhalation solution 3 mL = 2.5 mg, Inhalation, Every 4 hours, PRN for wheezing, # 100 each, 2 Refills, Maintenance, 11/22/21 12:30:00 EDT, Solution, [facility]., 162, cm, 11/14/21 11:01:00 EDT, Height, 86, kg, 07/23/21 0:58:00 EDT, Dry Weight Start Date: 11/22/21 Status: Ordered amitriptyline 25 mg oral tablet 25 mg, 1, tablet, By Mouth, Daily at bedtime, # 30 tablet, Refills 2, Tot. Refills 2, Maintenance, 08/30/21 12:06:00 EDT, Route to Pharmacy Electronically, [facility], Partial fill upon patient request if the prescription is for a sche... Start Date: 08/30/21 Status: Ordered Atrovent HFA 17 mcg/inh inhalation aerosol 2 puffs, Inhalation, 4 times a day, # 12.9 Gm, 5 Refills, Maintenance, 12/26/21 10:37:00 EDT, Aerosol, [facility], Partial fill upon patient request if the prescription is for a schedule II opioid drug., 162, cm, 12/26/21 10:16:00 EDT,... Start Date: 12/26/21 Status: Ordered cetirizine 10 mg oral tablet 1 tablet = 10 mg, By Mouth, Daily, # 30 tablet, 5 Refills, Maintenance, 08/28/21 9:07:00 EDT, Tablet, [facility]., 162, cm, 08/22/21 9:46:00 EDT, Height, 86, kg, 07/23/21 0:58:00 EDT, Dry Weight Start Date: 08/28/21 Status: Ordered cholecalciferol 5000 intl units oral capsule 1 capsule = 125 mcg, By Mouth, Daily, with food, # 100 capsule, 2 Refills, Maintenance, 02/11/21 11:17:00 EST, Capsule, [facility]/pharm[facility] #[id number], Partial fill upon patient request if [...] 1 Refills, Maintenance, 12/26/21 10:38:00 EDT, Cream, [facility]., 1 application Topically 2 times a day, [...] tablet, 0 Refills, Maintenance, 10/24/2219:09:00 EDT, Tablet, [facility] Partial fill upon patient request if the prescription is for a schedule II opioid drug., 2 tablet By... Start Date: 10/23/21 Status: Ordered duloxetine 60 mg oral enteric coated capsule 2 capsule = 120 mg, By Mouth, Daily, # 60 capsule, 5 Refills, Maintenance, 11/14/21 11:41:00 EDT, Capsule, [facility] Partial fill upon patient request. NOT INCREASED DOSE. Please cancel all other Duloxetine scripts, 162, cm, 11/14/21... Start Date: 11/14/21 Status: Ordered empagliflozin 10 mg oral tablet 1 tablet = 10 mg, By Mouth, Daily in AM, # 30 tablet, 5 Refills, Maintenance, 08/28/21 9:07:00 EDT,Tablet, [facility] Partial fill upon patient request if the prescription is for a schedule II opioid drug., 162, cm, 08/22/21 9:46:00... Start Date: 08/28/21 Status: Ordered fluticasone 50 mcg/inh nasal spray See Instructions, USE 1 SPRAY IN BOTH NOSTRILS 2 TIMES A DAY, # 16 mL, 1 Refills, 07/08/21 9:44:00 EDT, [facility] 30, USE 1 SPRAY IN [...] Mouth, Daily, # 30 tablet, 5 Refills, [facility], 162, cm, 11/14/21 11:01:00EDT, Height, 86, kg, 07/23/21 0:58:00 EDT, Dry Weight Start Date: 11/19/21 Status: Ordered ibuprofen 800 mg oral tablet 800 mg, 1, tablet, By Mouth, 3 times a day, PRN, # 90 tablet, Refills 1, Tot. Refills 1, Maintenance, Pain , Mild, 10/31/21 13:59:00 EDT, Route to Pharmacy Electronically, [facility],please fill 800mg instead of 600mg, 162, [...] 3 Refills, Maintenance, 06/18/21 21:04:00 EDT, Tablet, [facility], 162.5, cm, 06/17/21 13:04:00 EDT, Height, 85.8, kg, 06/04/21 10:03:00 EST, Dry Weight Start Date: 06/18/21 Status: Ordered Lantus 100 u/ml subcutaneous solution = 50 units, Subcutaneous Injection, Daily, # 15 mL, 5 Refills, Maintenance, 07/08/21 9:38:00 EDT, Solution, [facility], ;, 162.5, cm, 07/08/21 8:49:00 EDT, Height, 85.8, kg, 06/04/21 10:03:00 EST, Dry Weight Start Date: 07/08/21 Status: Ordered lidocaine 5% topical film 1 patch, Topically, Daily, PRN Pain , Mild, remove after 12 hours, # 13 each, 5 Refills, Maintenance, 12/26/21 10:37:00 EDT, Film, [facility]., Partial fill upon patient request if theprescription is for a schedule II opioid drug., 1 p... Start Date: 12/26/21 Status: Ordered lisinopril 20 mg oral tablet 20 mg, 1, tablet, By Mouth, Daily, # 90 tablet, Refills 3, Tot. Refills 3, Maintenance, 08/28/21 9:07:00 EDT, Route to Pharmacy Electronically, [facility], 162, cm, 08/22/21 9:46:00 EDT, Height, 86, kg, 07/23/21 0:58:00 EDT, Dry Weight Start Date: 08/28/21 Status: Ordered Melatonin 10 mg oral tablet 1 tablet = 10 mg, By Mouth, Daily at bedtime, # 30 each, 5 Refills, Maintenance, 11/14/21 11:42:00 EDT, [facility], Partial fill upon patient request if the prescription is for a schedule II opioid drug., 162, cm, 11/14/21 11:01:00 EDT... Start Date: 11/14/21 Status: Ordered mirtazapine 30 mg oral tablet 1 tablet = 30 mg, By Mouth, Daily at bedtime, Maintenance, 05/24/19 9:12:00 EST, Tablet Start Date: 05/24/19 Status: Ordered nystatin topical [id number] u/gm powder 1 application, Topically, 2 times a day, # 60 Gm, 1 Refills, Maintenance, 12/26/21 10:38:00 EDT, Powder, [facility]., Partial fill upon patient request if the prescription is for a schedule II opioid drug., 1 application Topically 2 quinton... Start Date: 12/26/21 Status: Ordered omeprazole 40 mg oral enteric coated capsule 1 capsule, By Mouth, Daily, PRN NEEDED, # 30 capsule, 2 Refills, [facility], 162, cm, 09/06/21 13:04:00 EDT, Height, 86, kg, 07/23/21 0:58:00 EDT, Dry Weight Start Date: 10/02/21 Status: Ordered oxyCODONE 5 mg oral tablet 5 mg, 1, tablet, By Mouth, 2 times a day, for 26 days, # 52 tablet, Refills 0, Tot. Refills 0, Acute 01/21/22 10:39:00 EDT, 12/26/21 10:39:00 EDT, Route to Pharmacy Electronically, [facility]., Partial fill upon patient request if the p... Start Date: 12/26/21 Stop Date: 01/21/22 Status: Ordered OxyCONTIN 10 mg oral tablet, extended release 10 mg, 1, tablet, By Mouth, Every 12 hours, # 56 tablet, Refills 0, Tot. Refills 0, Maintenance, 12/23/21 17:17:00 EDT, Route to Pharmacy Electronically, [facility]., Partial fill uponpatient request if the prescription is for a schedu... Start Date: 12/23/21 Stop Date: 01/20/22 Status: Ordered potassium chloride 10 mEq oral capsule, extended release 2 capsule = 20 mEq, By Mouth, Daily, do not crush or chew. with a full glass of water. with food., # 60 capsule, 0 Refills, Maintenance, 01/03/22 11:56:00 EDT, CR Capsule, [facility].,Partial fill upon patient request if the pres... Start Date: 01/03/22 Stop Date: 02/02/22 Status: Ordered predniSONE 20 mg oral tablet 2 tablet = 40 mg, By Mouth, Daily, for 3 days, # 6 tablet, 0 Refills, Acute 01/06/22 11:55:00 EDT, 01/03/22 11:55:00 EDT, Tablet, [facility]., Partial fill upon patient request if the prescription is for a schedule II opioid drug., 163,... Start Date: 01/03/22 Stop Date: 01/06/22 Status: Ordered Senna 8.6 mg oral tablet 8.6 mg, 1, tablet, By Mouth, Daily at bedtime, # 100 tablet, Refills 11, Tot. Refills 11, Maintenance, 07/08/21 9:39:00 EDT, Route to Pharmacy Electronically, [facility]., 162.5, cm, 07/08/21 8:49:00 EDT, Height, 85.8, kg, 06/04/21 10:0... Start Date: 07/08/21 Status: Ordered Tessalon Perles 100 mg oral capsule 1 capsule = 100 mg, By Mouth, 3 times a day, PRN Cough, for 14 days, # 42 capsule, 0 Refills, Acute01/17/22 11:55:00 EDT, 01/03/22 11:55:00 EDT, Capsule, [facility]., Partial fill upon patient request if the prescription is for a sched... 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 Fabian [phone] Confirmed Active Syncope and collapse Confirmed Active Tobacco dependence Confirmed Active DM2 (diabetes mellitus, type 2) Confirmed 04/03/17 Active Incontinence of urine 3 Confirmed Active 1seen on MRI 10/2016, rec repeat imaging in October [address] Abd 09/18/16 at [facility], pending MRI 3urge and stress Social History Social History Type Response Smoking Status Current every day sm oker; Type: Cigarettes; Tobacco use times per day: 1/2 ppd; entered on: 12/24/17 Sex Patient Care team information Personnel Name: Richardson QUIROZ, Leonora Pérez Address: Address: [address] [place] [address]
--- OUTSIDE RECORDS SUMMARY | 2023-03-25 08:26 | XMS_ITS | Continuity of Care Document ---
Author Name Unknown Organization [facility] Address [address] [place] [address]- Care Team Providers Care Estimating Manager Name Role Phone Richardson QUIROZ, Leonora Pérez Primary Care Physician Encounter [facility] Date(s): 03/22/21 - 03/29/21 [facility] [address], [place] [address] Encounter Diagnosis Boil(Discharge Diagnosis) - 03/22/21 Attending Physician: Eloy Isabel MD Referring Physician: Richardson QUIROZ, Leonora Pérez [...] 01/16/21 19:30:00 EDT, Route to Pharmacy Electronically, [facility]/pharmacy #[id number], Partial fill upon patient request if the prescription is for a schedule II o... Start Date: 01/16/21 Status: Ordered Advair Diskus 500 mcg-50 mcg inhalation powder 1, puffs, Inhalation, 2 times a day, j45.909, # 1 each, Refills 11, Tot. Refills 11, Maintenance, 04/05/20 14:12:00 EST, Powder, Route to Pharmacy Electronically, [id number], [facility]/pharmacy #[id number], 162.56, cm, 03/27/20 [...] 16 mL, 1 Refills, Maintenance, [id number], 30, USE 1 SPRAY IN BOTH NOSTRILS [...] 2 Refills, Maintenance, 03/01/21 12:42:00 EST, Solution, [id number], increased dose 12/26/19, 155, cm, 02/18/21 [...] Refills, Maintenance, 12/31/20 15:58:00 EDT, ER Tablet, [facility]/pharmacy #[id number], Partial fill [...] 1 Refills, Maintenance, 01/31/21 14:16:00 EDT, Tablet, [facility], Partial fill upon patient request if the prescription is for a schedule II opioid drCain Start Date: 01/31/21 Status: Ordered omeprazole 40 mg oral enteric coated capsule 1 capsule = 40 mg, By Mouth, Daily, PRN Dyspepsia, # 90 capsule, 0 Refills, Maintenance, 01/11/21 13:46:00 EDT, EC Capsule, [facility]/pharmacy #[id number], 165, cm, 12/31/20 14:56:00 EDT, Height, 87.6, kg, 12/31/20 14:56:00 EDT, Dry Weight Start Date: 01/11/21 Status: Ordered oxyCODONE 15 mg oral tablet 1 tablet = 15 mg, By Mouth, 2 times a day, for 28 days, # 56 tablet, 0 Refills, Acute 04/19/21 11:49:00 EST, 03/22/21 11:49:00 EST, [id number], Client on contract at [facility], failed Morphine, switching to oxycodone 15mg [...] 5 Refills, Maintenance, 10/31/20 15:27:00 EDT, Solution, [facility]/pharmacy #[id number], Partial fill upon [...] on CPAP(Confirmed) Active Panic attacks(Confirmed) Active BHN/BHCP 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 Jb Fabian [phone](Confirmed) Active Syncope and collapse(Confirmed) Active Tobacco dependence(Confirmed) Active DM2 (diabetes mellitus, type 2)(Confirmed) 04/03/17 Active Incontinence of urine(Confirmed) 3 Active 1seen on MRI 10/2016, rec repeat imaging in October [address] Abd 09/18/16 at [facility], pending MRI 3urge and stress Diagnosis Diagnosis Type Effective Dates Health Status Clini roseanne Service Informant Boil Discharge Diagnosis 03/22/21 Vital Signs Most recent to oldest [Reference Range]: 1 Height 162.5 cm (03/22/21 2:58 PM) Oxygen Saturation [94-100 %] 96 % (03/22/21 2:58 PM) Pulse Rate [55-90 bpm] 105 bpm *H* (03/22/21 2:58 PM) Blood Pressure [90-138/55-84 mm Hg] 147/ 92mm Hg *H* (03/22/21 2:58 PM) Temperature [96.8-100.4 DegF] 98.1 DegF (12/17/21 2:58 PM) Mode of Delivery (Oxygen) Room air (03/22/21 2:58 PM) Blood pressure sites Arm, right (03/22/21 2:58 PM) Temperature Route Temporal (03/22/21 2:58 PM) Social History Social History Type Response Smoking Status Current every day kaitlin valle; Type: Cigarettes; Tobacco use times per day: 1/2 ppd; entered on: 12/24/17 Sex
--- OUTSIDE RECORDS SUMMARY | 2023-03-25 08:26 | XMS_ITS | Continuity of Care Document ---
Author Name Unknown Organization [facility] Address [address] [place] [address]- Care Team Providers Care Cna Hha Name Role Phone Richardson AUTOMATIC CASTING MACHINE OPERATOR, Leonora Pérez Primary Care Physician [place] [facility] [place]): 07/25/22 - 08/24/22 [facility] [address] [place] [address]- Allergies, Adverse Reactions, Alerts Substance Reaction Severity Status morphine Active gabapentin swelling Active Lyrica dysphagia Active SEROquel body swelling - all over Act tony MetFORMIN Hydrochloride ER black tarry stool Active Immunizations Given and Recorded Vaccine Date Status Refusal Reason [id number] 12y+ bivalent booster vax 01/30/22 Given influenza virus vaccine, inactivated 01/30/22 Give n influenza virus vaccine, inactivated 02/04/21 Give n influenza virus vaccine, inactivated 1 04/19/20 Gi tonio influenza virus vaccine, inactivated 03/12/19 Give n influenza virus vaccine, inactivated 01/19/18 Give n influenza virus vaccine, inactivated 02/16/17 Give n pneumococcal 20-valent conjugate vaccine 12/26/21 Given SARS-CoV-2 mRNA ([id number]) vax 05/14/21 Given SARS-CoV-2 (COVID-19) mRNA BNT-162b2 [...] 10/22/21 9:23:00 EDT, Route to Pharmacy Electronically, [facility], Partial fill uponpatient request if the prescription [...] tablet, 1 Refills, Maintenance, 07/25/22 12:30:00 EDT, [facility] 163, cm, 07/11/22 14:19:00 EDT, Height, [...] Maintenance, 02/11/21 11:17:00 EST, Capsule, [facility]/pharmacy #[id number], Partial fill upon patient request if the prescription is for a schedule II opioid drug., 155, cm, 02/11/21 8:53... Start Date: 02/11/21 Status: Ordered clonazePAM 0.5 mg oral tablet 1 tablet = 0.5 mg, By Mouth, 2 times a day, # 60 tablet, 0 Refills, Maintenance, 07/25/22 17:58:00 EDT, [facility] Partial fill upon patient request [...] 11 Refills, Maintenance, 08/14/22 16:57:00 EDT, Tablet, [facility] Partial fill upon patient request if the prescription is for a schedule II opioid drug., 2 tablet By... Start Date: 08/14/22 Status: Ordered duloxetine 60 mg oral enteric coated capsule 2 capsule = 120 mg, By Mouth, Daily, # 60 capsule, 5 Refills, Maintenance, 05/26/22 17:03:00 EST, [facility]apsule, [facility] Partial fill upon patient request. NOT INCREASED DOSE. Please cancel all other Duloxetine scripts, 163, eugenia, 05/19/22... Start Date: 05/26/22 Status: Ordered empagliflozin 10 mg oral tablet 1 tablet = 10 mg, By Mouth, Daily in AM, # 30 tablet, 5 Refills, Maintenance, 02/20/22 12:04:00 EST, Tablet, [facility] Partial fill upon patient request if the prescription is for aschedule II opioid drug., 163, cm, 02/11/22 19:19:0... Start Date: 02/20/22 Status: Ordered ibuprofen 800 mg oral tablet 1, tablet, By Mouth, 3 times a day, PRN, # 90 tablet, Refills 1, Tot. Refills 1, Maintenance, NEEDED FOR PAIN, 07/11/22 15:09:00 EDT, Route to Pharmacy Electronically, [facility], 163, cm, 07/11/22 14:19:00 EDT, Height, 83, kg, 11/0... Start Date: 07/11/22 Status: Ordered Lantus 100 u/ml subcutaneous solution = 50 units, Subcutaneous Injection, Daily, # 15 mL, 2 Refills, Maintenance, 01/06/22 12:07:00 EDT, Solution, [facility], ;, 163, cm, 01/03/22 11:20:00 EDT, Height, 84, kg, 01/02/22 19:36:00 EDT, Dry Weight Start Date: 01/06/22 Status: Ordered lidocaine 5% topical film 1 patch, Topically, Daily, PRN Pain , Mild, remove after 12 hours, # 13 each, 5 Refills, Maintenance, 04/29/22 11:56:00 EST, Film, [facility], Partial fill upon patient request if theprescription is for a schedule II opioid drug., 1 p... Start Date: 04/29/22 Status: Ordered lisinopril 20 mg oral tablet 20 mg, 1, tablet, By Mouth, Daily, # 90 tablet, Refills 1, Tot. Refills 1, Maintenance, 07/25/22 12:31:00 EDT, Route to Pharmacy Electronically, [facility], 163, cm, 07/11/22 14:19:00EDT, Height, 83, kg, 02/11/22 19:19:00 EST, Dry Weight Start Date: 07/25/22 Status: Ordered mirtazapine 30 mg oral tablet 1 tablet = 30 mg, By Mouth, Daily at bedtime, Maintenance, 05/24/19 9:12:00 EST, Tablet Start Date: 05/24/19 Status: Ordered omeprazole 40 mg oral enteric coated capsule 1 capsule, By Mouth, Daily, PRN NEEDED, # 30 capsule, 2 Refills, [facility], 162, cm, 09/06/21 13:04:00 EDT, Height, 86, kg, 07/23/21 0:58:00 EDT, Dry Weight Start Date: 10/02/21 Status: Ordered oxyCODONE 15 mg oral tablet 1 tablet = 15 mg, By Mouth, 3 times a day, on contract at [facility], # 84 tablet, 0 Refills, Maintenance, 07/22/22 9:08:00 EDT, [facility], Partial fill upon patient [...] capsule, 0 Refills, Maintenance, 07/25/22 17:17:00 EDT, [facility]., 163, cm, 07/11/22 14:19:00 EDT, Height, 83, kg, ... Start Date: 07/25/22 Status: Ordered traZODone 50 mg oral tablet See Instructions, 1/2- 1 tablet By Mouth Daily at bedtime, # 30 each, Refills 1, Tot. Refills 1, Maintenance, 06/30/22 14:07:00 EDT, Instructions Replace Required Details, Route to Pharmacy Electronically, [facility], Partial fill upon... 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 [phone] Confirmed Active Syncope and collapse Confirmed Active Tobacco dependence Confirmed Active DM2 (diabetes mellitus, type 2) Confirmed 04/03/17 Active Incontinence of urine 3 Confirmed Active 1seen on MRI 10/2016, rec repeat imaging in October [address] Abd 09/18/16 at [facility], pending MRI 3urge and stress Social History Social History Type Response Smoking Status Current every day sm oker; Type: Cigarettes; Tobacco use times per day: 1/2 ppd; entered on: 12/24/17 Sex Patient Care team information Care Team Personnel Name: Sindy Bernal RN Position: [facility] RN Member Role: Primary Care Nurse Name: Graciela Thrasher RN Position: [facility] SN RN Member Role: Primary Care Nurse Name: Stevie Angel RN Position: [facility] RN Member Role: Primary Care Nurse Name: Leonora Bai NP Position: [facility] Associate Professional Member Role: PCP Address: Address: [address] [place] [id number] Name: Keily Ortega RN Position: [facility] RN Member Role: Primary Care Nurse Name: Graciela Munroe RN Position: [facility] RN Member Role: Primary Care Nurse Name: Nichole Pichardo RN Position: [facility] RN Member Role: Primary Care Nurse Name: Melvin Whitfield RN Position: [facility] PCO RN Member Role: Primary Care Nurse Name: Phuong Berkowitz RN Position: [facility] RN Member Role: Primary Care Nurse Name: Joselyn Rain RN Position: [facility] Property Administrator Member Role: Primary Care Nurse Care Team Related Persons Name: IRA ROMERO Address: [address] [place] [address] Name: JHON LARSON Address: [address] [place] [address] Name: JHON LARSON Address: [address] [place] [address] Name: GALO CATALAN Name: NANCY CATALAN Address: home [address] [place] [address]
--- OUTSIDE RECORDS SUMMARY | 2023-03-25 08:27 | XMS_ITS | Continuity of Care Document ---
Author Name Unknown Organization [facility] Address [address] [place] [address]- Care Team Providers Care Web Development Consultant Name Role Phone Richardson QUIROZ, Leonora Pérez Primary Care Physician [place] [facility] [place] 05/22/21 - 10/10/[address] [id number] Discharge Disposition: A-D/C Home Attending Physician: Richardson QUIROZ, Leonora Pérez Admitting Physician: Richardson QUIROZ, Leonora Pérez Referring Physician: Nhung Foster MD Allergies, Adverse Reactions, Alerts Substance Reaction Severity Status morphine Active gabapentin swelling Active MetFORMIN Hydrochloride ER black tarry stool Active SEROquel body swelling - all over Act tony Lyrica dysphagia Active Immunizations Given and Recorded Vaccine Date Status Refusal Reason SARS-CoV-2 mRNA ([id number]) vax 05/14/21 Given influenza virus vaccine, inactivated [...] 09/09/21 13:08:00 EDT, Route to Pharmacy Electronically, [facility], Partial fill upon patient request if the prescription is for a sched... Start Date: 09/09/21 Status: Ordered Advair Diskus 500 mcg-50 mcg inhalation powder 1, puffs, Inhalation, 2 times a day, [id number], # 1 each, Refills 5, Tot. Refills 5, Maintenance, 05/15/21 9:20:00 EST, Powder, Route to Pharmacy Electronically, [id number], [facility], 162.5, cm, 05/10/21 14:47... Start Date: 05/15/21 Status: Ordered albuterol 0.083% inhalation solution 3 mL = 2.5 mg, Inhalation, Every 4 hours, PRN for wheezing, # 100 each, 2 Refills, Maintenance, 05/15/21 9:30:00 EST, Solution, [facility], 162.5, cm, 05/10/21 14:47:00 EST, Height, 90.9, kg, 02/02/21 5:59:00 EDT, Dry Weight Start Date: 05/15/21 Status: Ordered amitriptyline 25 mg oral tablet 25 mg, 1, tablet, By Mouth, Daily at bedtime, # 30 tablet, Refills 2, Tot. Refills 2, Maintenance, 08/30/21 12:06:00 EDT, Route to Pharmacy Electronically, [facility], Partial fill upon patient request if the prescription is for a sche... Start Date: 08/30/21 Status: Ordered cetirizine 10 mg oral tablet 1 tablet = 10 mg, By Mouth, Daily, # 30 tablet, 5 Refills, Maintenance, 08/28/21 9:07:00 EDT, Tablet, [facility], 162, cm, 08/22/21 9:46:00 EDT, Height, [...] 1 Refills, Maintenance, 07/08/21 9:45:00 EDT, [facility], [facility] PLEASE CANCEL ESTRADIOL VAGINAL CREAM, 1 application [...] opioid drug. Start Date: 07/24/21 Status: Ordered empagliflozin 10 mg oral tablet 1 tablet = 10 mg, By Mouth, Daily in AM, # 30 tablet, 5 Refills, Maintenance, 08/28/21 9:07:00 EDT,Tablet, [facility], Partial fill upon patient request if the prescription is for a schedule II opioid drug., 162, cm, 08/22/21 9:46:00... Start Date: 08/28/21 Status: Ordered fluticasone 50 mcg/inh nasal spray See Instructions, USE 1 SPRAY IN BOTH NOSTRILS 2 TIMES A DAY, # 16 mL, 1 Refills, 07/08/21 9:44:00 EDT, [facility]., 30, USE 1 SPRAY IN BOTH NOSTRILS 2 TIMES A DAY, 162.5, cm, 228:49:00 EDT, Height, 85.8, kg, 06/04/21 10:03:00 ES... Start Date: 07/08/21 Status: Ordered hydrochlorothiazide 12.5 mg oral tablet 1 tablet = 12.5 mg, By Mouth, Daily, TAKE 1 TABLET BY MOUTH EVERY DAY, # 30 capsule, 2 Refills, Maintenance, 08/28/21 9:07:00 EDT, [facility]., 162, cm, 08/22/21 9:46:00 EDT, Height, 86, kg, 07/23/21 0:58:00 EDT, Dry Weight Start Date: 08/28/21 Status: Ordered ibuprofen 800 mg oral tablet 800 mg, 1, tablet, By Mouth, 3 times a day, PRN, # 90 tablet, Refills 1, Tot. Refills 1, Maintenance, Pain , Mild, 09/10/21 14:23:00 EDT, Route to Pharmacy Electronically, [facility],please fill 800mg instead of 600mg, 162, [...] 3 Refills, Maintenance, 06/18/21 21:04:00 EDT, Tablet, [facility], 162.5, cm, 06/17/21 13:04:00 EDT, Height, 85.8, kg, 06/04/21 10:03:00 EST, Dry Weight Start Date: 06/18/21 Status: Ordered Lantus 100 u/ml subcutaneous solution = 50 units, Subcutaneous Injection, Daily, # 15 mL, 5 Refills, Maintenance, 07/08/21 9:38:00 EDT, Solution, [facility], ;, 162.5, cm, 07/08/21 8:49:00 EDT, Height, 85.8, kg, 06/04/21 10:03:00 EST, Dry Weight Start Date: 07/08/21 Status: Ordered lisinopril 20 mg oral tablet 20 mg, 1, tablet, By Mouth, Daily, # 90 tablet, Refills 3, Tot. Refills 3, Maintenance, 08/28/21 9:07:00 EDT, Route to Pharmacy Electronically, [facility], 162, cm, 08/22/21 9:46:00 EDT, Height, [...] NEEDED, # 30 capsule, 2 Refills, [facility], 162, cm, 09/06/21 13:04:00 EDT, Height, 86, kg, 07/23/21 0:58:00 EDT, Dry Weight Start Date: 10/02/21 Status: Ordered OxyCONTIN 30 mg oral tablet, extended release 1 tablet = 30 mg, By Mouth, Every 12 hours, # 56 tablet, 0 Refills, Maintenance, 10/02/21 8:02:00 EDT, ER Tablet, [facility], Partial fill upon patient request if the prescription is for a schedule II opioid drug. ON contract at [facility],... Start Date: 10/02/21 Stop Date: 10/30/21 Status: Ordered Senna 8.6 mg oral tablet 8.6 mg, 1, tablet, By Mouth, Daily at bedtime, # 100 tablet, Refills 11, Tot. Refills 11, Maintenance, 07/08/21 9:39:00 EDT, Route to Pharmacy Electronically, [facility]., 162.5, cm, 07/08/21 8:49:00 EDT, Height, 85.8, kg, 06/04/21 10:0... 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
--- OUTSIDE RECORDS SUMMARY | 2023-03-25 08:27 | XMS_ITS | Continuity of Care Document ---
Author Name Unknown Organization [facility] Address [address] [place] [address]- Care Team Providers Care Road Inspector Name Role Phone Richardson MEDICAL MALPRACTICE PARALEGAL, Leonora Pérez Primary Care Physician [place] [facility] [place](s): 07/10/22 - 08/09/22 [facility] [address] [place] [address]- Allergies, Adverse Reactions, Alerts Substance Reaction Severity Status morphine Active gabapentin swelling Active Lyrica dysphagia Active SEROquel body swelling - all over Act tony MetFORMIN Hydrochloride ER black tarry stool Active Immunizations Given and Recorded Vaccine Date Status Refusal Reason [id number] 12y+ bivalent booster vax 01/30/22 Given influenza virus vaccine, inactivated 01/30/22 Give n influenza virus vaccine, inactivated 02/04/21 Give n influenza virus vaccine, inactivated 1 04/19/20 Gi tonio influenza virus vaccine, inactivated 03/12/19 Give n influenza virus vaccine, inactivated 01/19/18 Give n influenza virus vaccine, inactivated 02/16/17 Give n pneumococcal 20-valent conjugate vaccine 12/26/21 Given SARS-CoV-2 mRNA (cunecge-[id number]) vax 05/14/21 Given SARS-CoV-2 (COVID-19) mRNA BNT-162b2 [...] EDT, Route to Pharmacy Electronically, [facility], Partial fill uponpatient request if the prescription [...] tablet, 1 Refills, Maintenance, 07/25/22 12:30:00 EDT, [facility] 163, cm, 07/11/22 14:19:00 EDT, Height, 83, kg, 02/11/22 19:19:00 EST, Dry Weight Start Date: 07/25/22 Status: Ordered amLODIPine 5 mg oral tablet 5 mg, 1, tablet, By Mouth, Daily, # 90 tablet, Refills 3, Tot. Refills 3, Maintenance, 04/29/22 11:56:00 EST, Route to Pharmacy Electronically, [facility], Partial fill upon patient request if the [...] tablet, 0 Refills, Maintenance, 07/25/22 17:58:00 EDT, [facility] fill upon patient [...] 11 Refills, Maintenance, 02/21/22 10:35:00 EST, Tablet, [facility] Partial fill upon patient request if the prescription is for a schedule II opioid drug., 2 tablet By... Start Date: 02/21/22 Status: Ordered duloxetine 60 mg oral enteric coated capsule 2 capsule = 120 mg, By Mouth, Daily, # 60 capsule, 5 Refills, Maintenance, 05/26/22 17:03:00 EST, Capsule, [facility] Partial fill upon patient request. NOT INCREASED DOSE. Please cancel all other Duloxetine scripts, 163, cm, 05/19/22... Start Date: 05/26/22 Status: Ordered empagliflozin 10 mg oral tablet 1 tablet = 10 mg, By Mouth, Daily in AM, # 30 tablet, 5 Refills, Maintenance, 02/20/22 12:04:00 EST, Tablet, [facility] Partial fill upon patient request if the prescription is for aschedule II opioid drug., 163, cm, 02/11/22 19:19:0... Start Date: 02/20/22 Status: Ordered fluticasone 50 mcg/inh nasal spray See Instructions, USE 1 SPRAY IN BOTH NOSTRILS 2 TIMES A DAY, # 16 mL, 1 Refills, 07/08/21 9:44:00 EDT, [facility] 30, USE 1 SPRAY IN BOTH NOSTRILS 2 TIMES A DAY, 162.5, cm, :49:00 EDT, Height, 85.8, kg, 06/04/21 10:03:00 ES... Start Date: 07/08/21 Status: Ordered ibuprofen 800 mg oral tablet 1, tablet, By Mouth, 3 times a day, PRN, # 90 tablet, Refills 1, Tot. Refills 1, Maintenance, NEEDED FOR PAIN, 07/11/22 15:09:00 EDT, Route to Pharmacy Electronically, [facility], 163, cm, 07/11/22 14:19:00 EDT, Height, 83, kg, 11/0... Start Date: 07/11/22 Status: Ordered Januvia 100 mg oral tablet 1 tablet = 100 mg, By Mouth, Daily, # 90 tablet, 3 Refills, Maintenance, 06/18/21 21:04:00 EDT, Tablet, [facility], 162.5, cm, 06/17/21 13:04:00 EDT, Height, 85.8, kg, 06/04/21 10:03:00 EST, Dry Weight Start Date: 06/18/21 Status: Ordered Lantus 100 u/ml subcutaneous solution = 50 units, Subcutaneous Injection, Daily, # 15 mL, 2 Refills, Maintenance, 01/06/22 12:07:00 EDT, Solution, [facility] ;, 163, cm, 01/03/22 11:20:00 EDT, Height, 84, kg, 01/02/22 19:36:00 EDT, Dry Weight Start Date: 01/06/22 Status: Ordered lidocaine 5% topical film 1 patch, Topically, Daily, PRN Pain , Mild, remove after 12 hours, # 13 each, 5 Refills, Maintenance, 04/29/22 11:56:00 EST, Film, [facility], Partial fill upon patient request if theprescription is for a schedule II opioid drug., 1 p... Start Date: 04/29/22 Status: Ordered lisinopril 20 mg oral tablet 20 mg, 1, tablet, By Mouth, Daily, # 90 tablet, Refills 1, Tot. Refills 1, Maintenance, 07/25/22 12:31:00 EDT, Route to Pharmacy Electronically, [facility], 163, cm, 07/11/22 14:19:00EDT, Height, 83, kg, 02/11/22 19:19:00 EST, Dry Weight Start Date: 07/25/22 Status: Ordered mirtazapine 30 mg oral tablet 1 tablet = 30 mg, By Mouth, Daily at bedtime, Maintenance, 05/24/19 9:12:00 EST, Tablet Start Date: 05/24/19 Status: Ordered omeprazole 40 mg oral enteric coated capsule 1 capsule, By Mouth, Daily, PRN NEEDED, # 30 capsule, 2 Refills, [facility], 162, cm, 09/06/21 13:04:00 EDT, Height, 86, kg, 07/23/21 0:58:00 EDT, Dry Weight Start Date: 10/02/21 Status: Ordered oxyCODONE 15 mg oral tablet 1 tablet = 15 mg, By Mouth, 3 times a day, on contract at [facility], # 84 tablet, 0 Refills, Maintenance, 07/22/22 9:08:00 EDT, [facility], Partial fill upon patient request if the [...] EDT, Route to Pharmacy Electronically, [facility], 162.5, cm, 07/08/21 8:49:00 EDT, Height, 85.8, kg, 06/04/21 10:0... Start Date: 07/08/21 Status: Ordered tiZANidine 4 mg oral capsule See Instructions, PRN Pain , Severe, take as little as possible to control pain not to exceed 3 doses/day, # 60 capsule, 0 Refills, Maintenance, 07/25/22 17:17:00 EDT, [facility] 163, cm, 07/11/22 14:19:00 EDT, Height, 83, kg, ... Start Date: 07/25/22 Status: Ordered traZODone 50 mg oral tablet See Instructions, 1/2- 1 tablet By Mouth Daily at bedtime, # 30 each, Refills 1, Tot. Refills 1, Maintenance, 06/30/22 14:07:00 EDT, Instructions Replace Required Details, Route to Pharmacy Electronically, [facility], Partial fill upon... Start Date: 06/30/22 Status: Ordered Trulicity Pen 1.5 mg/0.5 mL subcutaneous solution = 1.5 mg, Subcutaneous Infusion, Every week, # 4 each, 5 Refills, Maintenance, 07/25/22 18:12:00 EDT, [facility], Partial fill upon patient request if the prescription is for a schedule II opioid drug., 163, cm, 07/11/22 14:19:00 EDT,... Start Date: 07/25/22 Status: Ordered Trulicity Pen 3 mg/0.5 mL subcutaneous solution See Instructions, INJECT 0.5 ML SUBCUTANEOUSLY EVERY WEEK. 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 Charlene Chung Caren [phone] Confirmed Active Syncope and collapse Confirmed Active Tobacco dependence Confirmed Active DM2 (diabetes mellitus, type 2) Confirmed 04/03/17 Active Incontinence of urine 3 Confirmed Active 1seen on MRI 10/2016, rec repeat imaging in October [address] Abd 09/18/16 at [facility], pending MRI 3urge and stress Social History Social History Type Response Smoking Status Current every day sm oker; Type: Cigarettes; Tobacco use times per day: 1/2 ppd; entered on: 12/24/17 Sex Patient Care team information Care Team Personnel Name: Sindy Bernal RN Position: [facility] RN Member Role: Primary Care Nurse Name: Graciela Thrasher RN Position: [facility] SN RN Member Role: Primary Care Nurse Name: Stevie Angel RN Position: [facility] RN Member Role: Primary Care Nurse Name: Richardson QUIROZ, Leonora Pérez Position: [facility] PCO Associate Professional Member Role: PCP Address: Address: [address] [place] [id number] Name: Keily Ortega RN Position: [facility] RN Member Role: Primary Care Nurse Name: Graciela Munroe RN Position: [facility] RN Member Role: Primary Care Nurse Name: Nichole Pichardo RN Position: [facility] RN Member Role: Primary Care Nurse Name: Melvin Whitfield RN Position: [facility] PCO RN Member Role: Primary Care Nurse Name: Phuong Berkowitz RN Position: [facility] RN Member Role: Primary Care Nurse Name: Joselyn Rain RN Position: [facility] Rn Clinical Quality Member Role: Primary Care Nurse Care Team Related Persons Name: NICK IRA Address: home [address] [place] [address] Name: JHON LARSON Address: [address] [place] [address] Name: JHON LARSON Address: [address] [place] [address] Name: GALO CATALAN Name: NANCY CATALAN Address: home [address] [place] [address]
--- OUTSIDE RECORDS SUMMARY | 2023-03-25 08:27 | XMS_ITS | Continuity of Care Document ---
Author Name Unknown Organization [facility] ter Address [address] [place] [address]- Care Team Providers Care Civil Design Technician Name Role Phone Richardson QUIROZ, Leonora Pérez Primary Care Physician [phone] Encounter [facility] Date(s): 07/20/21 - 07/20/[address] [address]- Encounter Diagnosis Lumbar radiculopathy(Final) - 07/20/21 Bulging lumbar disc(Final) - 07/20/21 Discharge Disposition: A-D/C Home Attending Physician: Charly Snider MD Admitting Physician: Charly Snider MD Referring Physician: Not on Staff, Referring MD Allergies, Adverse Reactions, Alerts Substance Reaction Severity Status morphine Active gabapentin swelling Active MetFORMIN Hydrochloride ER black tarry stool Active Lyrica dysphagia Active SEROquel body swelling - all over Act tony Immunizations Given and Recorded Vaccine Date Status Refusal Reason SARS-CoV-2 mRNA ([id number]) vax 05/14/21 Given influenza virus vaccine, inactivated [...] Not Available/Off Unit 2? Unknown: Resend to [facility]. Resend to [facility]. Medications acetaminophen 325 mg oral tablet 650 mg, 2, tablet, By Mouth, 3 times a day, # 100 tablet, Refills 1, Tot. Refills 1, Maintenance, 07/18/21 15:15:00 EDT, Route to Pharmacy Electronically, [facility], Partial fill upon patient request if the prescription is for a sched... Start Date: 07/18/21 Status: Ordered Advair Diskus 500 mcg-50 mcg inhalation powder 1, puffs, Inhalation, 2 times a day, [id number], # 1 each, Refills 5, Tot. Refills 5, Maintenance, 05/15/21 9:20:00 EST, Powder, Route to Pharmacy Electronically, [id number], [facility]., 162.5, cm, 05/10/21 14:47... Start Date: 05/15/21 Status: Ordered albuterol 0.083% inhalation solution 3 mL = 2.5 mg, Inhalation, Every 4 hours, PRN for wheezing, # 100 each, 2 Refills, Maintenance, 05/15/21 9:30:00 EST, Solution, [facility]., 162.5, cm, 05/10/21 14:47:00 EST, Height, 90.9, kg, 02/02/21 5:59:00 EDT, Dry Weight Start Date: 05/15/21 Status: Ordered amitriptyline 75 mg oral tablet 1 tablet = 75 mg, By Mouth, Daily at bedtime, # 90 tablet, 1 Refills, Maintenance, 05/07/21 10:21:00 EST, Tablet, [facility]., Partial fill upon patient request if the prescription is for a schedule II opioid drug., 162.5, cm, 03/22/21... Start Date: 05/07/21 Status: Ordered atorvastatin 40 mg oral tablet 1 tablet = 40 mg, By Mouth, Daily, # 90 tablet, 3 Refills, Maintenance, 07/08/21 9:47:00 EDT, Tablet, [facility] Partial fill upon patient request if the prescription is for a schedule II opioid drug., 162.5, cm, 07/08/21 8:49:00 EDT,... Start Date: 07/08/21 Status: Ordered cetirizine 10 mg oral tablet 1 tablet = 10 mg, By Mouth, Daily, # 30 tablet, 5 Refills, Maintenance, 07/08/21 9:44:00 EDT, Tablet, [facility]., 162.5, cm, 07/08/21 8:49:00 EDT, Height, [...] 1 Refills, Maintenance, 07/08/21 9:45:00 EDT, Cream, [facility], PLEASE CANCEL ESTRADIOL VAGINAL CREAM, 1 application [...] tablet, 5 Refills, Maintenance, 07/08/21 9:43:00 EDT,Tablet, [facility], Partial fill upon patient request if the prescription is for a schedule II opioid drug., 162.5, cm, 07/08/21 8:49:0... Start Date: 07/08/21 Status: Ordered fluticasone 50 mcg/inh nasal spray See Instructions, USE 1 SPRAY IN BOTH NOSTRILS 2 TIMES A DAY, # 16 mL, 1 Refills, 07/08/21 9:44:00 EDT, [facility], 30, USE 1 SPRAY IN BOTH NOSTRILS 2 TIMES A DAY, 162.5, cm, :49:00 EDT, Height, 85.8, kg, 06/04/21 10:03:00 ES... Start Date: 07/08/21 Status: Ordered hydrochlorothiazide 12.5 mg oral tablet 1 tablet = 12.5 mg, By Mouth, Daily, TAKE 1 TABLET BY MOUTH EVERY DAY, # 30 capsule, 2 Refills, Maintenance, 05/15/21 9:20:00 EST, [facility], 162.5, cm, 05/10/21 14:47:00 EST, Height, 90.9, [...] Maintenance, 06/18/21 21:04:00 EDT, Tablet, [facility] 162.5, cm, 06/17/21 13:04:00 EDT, Height, 85.8, kg, 06/04/21 10:03:00 EST, Dry Weight Start Date: 06/18/21 Status: Ordered Lantus 100 u/ml subcutaneous solution = 50 units, Subcutaneous Injection, Daily, # 15 mL, 5 Refills, Maintenance, 07/08/21 9:38:00 EDT, Solution, [facility] ;, 162.5, cm, 07/08/21 8:49:00 EDT, Height, 85.8, kg, 06/04/21 10:03:00 EST, Dry Weight Start Date: 07/08/21 Status: Ordered lisinopril 20 mg oral tablet 20 mg, 1, tablet, By Mouth, Daily, # 90 tablet, Refills 3, Tot. Refills 3, Maintenance, 04/12/21 13:24:00 EST, Route to Pharmacy Electronically, [facility]/pharmacy #[id number], 162.5, cm, 03/22/21 14:58:00 EST, Height, 90.9, kg, 02/02/21 5:59:00 EDT, Dry Weight Start Date: 04/12/21 Status: Ordered Medrol Dosepak 4 mg oral tablet 1 pack/packet, By Mouth, Daily, for 6 days, as directed on package labeling, # 21 tablet, 5 Refills, Acute 08/25/21 14:43:00 EDT, 07/20/21 14:43:00 EDT, Tablet, [facility], Partial fillupon patient request if the prescription is for a s... Start Date: 07/20/21 Stop Date: 08/25/21 Status: Ordered meloxicam 7.5 mg oral tablet 1 tablet = 7.5 mg, By Mouth, Daily, # 30 tablet, 1 Refills, Maintenance, 06/24/21 16:30:00 EDT, Tablet, [facility]., Partial fill upon patient request if [...] days, [facility] CHECKED PT ON CONTRACT AT [facility], # 84 tablet, 0 Refills, Acute 08/08/21 16:38:00 EDT, 07/11/21 16:38:00 EDT, [facility], 162.5, cm, 07/08/21 8:49:00 EDT, Height... Start Date: 07/11/21 Stop Date: 08/08/21 Status: Ordered oxyCODONE 5 mg oral tablet 15 mg, Tablet, By Mouth, Once, STAT, 07/20/21 20:53:00 EDT, Stop date 07/20/21 20:53:00 EDT Start Date: 07/20/21 Stop Date: 07/20/21 Status: Completed prazosin 2 mg oral capsule See Instructions, 0 Refills, Maintenance, 03/14/21 10:48:00 EST, Partial fill upon patient request if the prescription is for a schedule II opioid drug. Start Date: 03/14/21 Status: Ordered Senna 8.6 mg oral tablet 8.6 mg, 1, tablet, By Mouth, Daily at bedtime, # 100 tablet, Refills 11, Tot. Refills 11, Maintenance, 07/08/21 9:39:00 EDT, Route to Pharmacy Electronically, [facility]., 162.5, cm, 07/08/21 8:49:00 EDT, Height, [...] 1 Refills, Maintenance, 07/01/21 15:05:00 EDT, Tablet, [facility], Partial fill upon patient request if the prescription is for a schedule II opioid drug., 1... 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 [phone](Confirmed) Active Syncope and collapse(Confirmed) Active Tobacco dependence(Confirmed) Active DM2 (diabetes mellitus, type 2)(Confirmed) 04/03/17 Active Incontinence of urine(Confirmed) 3 Active 1seen on MRI 10/2016, rec repeat imaging in October [address] Abd 09/18/16 at [facility] [place], pending MRI 3urge and stress Vital Signs Most recent to oldest [Reference Range]: 1 2 3 Height 163 cm (07/20/21 1:40 PM) 163 cm (07/20/21 12:47 PM) Weight 86 kg (07/20/21 1:40 PM) 86 kg (07/20/21 12:47 PM) Oxygen Saturation [94-100 %] 94 % (07/20/21 6:36 PM) 96 % (07/20/21 5:09 PM) 98 % (07/20/21 1:40 PM) Pulse Rate [55-90 bpm] 94 bpm *H* (07/20/21 6:36 PM) 92 bpm *H* (07/20/21 5:09 PM) 104 bpm *H* (07/20/21 1:40 PM) Body Mass Index [18.5-24.99] 32.37 *>HHI* (07/20/21 12:47 PM) Blood Pressure [90-138/55-84 mm Hg] 109/70mm Hg (07/20/21 8:30 PM) 92/55mm Hg (07/20/21 6:36 PM) 87/55mm Hg *L* (07/20/21 5:09 PM) Respiratory Rate [16-30 br/min] 16 br/min (07/20/21 9:37 PM) 18 br/min (07/20/21 6:36 PM) 16 br/min (07/20/21 5:09 PM) Temperature [96.8-100.4 DegF] 97.8 DegF (07/20/21 5:09 PM) 98.1 DegF (07/20/21 1:40 PM) 99.1 DegF (07/20/21 12:47 PM) Mode of Delivery (Oxygen) Room air (07/20/21 6:36 PM) Room air (07/20/21 5:09 PM) Room air (07/20/21 1:40 PM) Blood pressure sites Arm, right (07/20/21 6:36 PM) Arm, right (07/20/21 5:09 PM) Arm, right (07/20/21 1:40 PM) Temperature Route Oral (07/20/21 5:09 PM) Oral (07/20/21 1:40 PM) Oral (07/20/21 12:47 PM) Dry Weight 86 kg (07/20/21 1:40 PM) 86 kg (07/20/21 12:47 PM) Weight Obtained Via Patient/family state d (07/20/21 12:47 PM) Dry Weight Obtained Via Patient/family s tated (07/20/21 12:47 PM) Social History Social History Type Response Smoking Status Current every day kaitlin valle; Type: Cigarettes; Tobacco use times per day: 1/2 ppd; entered on: 12/24/17 Sex
--- OUTSIDE RECORDS SUMMARY | 2023-03-25 08:27 | XMS_ITS | Continuity of Care Document ---
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 Start Date: 04/27/19 Status: Ordered albuterol 0.083% inhalation solution 3 mL = 2.5 mg, Inhalation, Every 4 hours, PRN for wheezing, # 100 each, 5 Refills, Maintenance, 06/27/19 14:32:00 EDT, Solution, [facility]/pharmacy #[id number], 160, cm, 06/01/19 14:08:00 EST, [...] tablet, 5 Refills, Maintenance, 10/06/19 7:45:00EDT, Tablet, [facility]/pharmacy #[id number], 160, cm, 09/28/19 8:58:00 EDT, Height, [...] 5 Refills, Maintenance, 04/19/19 15:40:00 EST, Tablet, [facility]/pharmacy #[id number], 158, cm, 04/04/19 15:21:00 EST, Height, 82, kg, 04/01/19 16:10:00 EST, Dry Weight Start Date: 04/19/19 Status: Ordered clonazePAM 0.5 mg oral tablet TAKE 1 TABLET BY MOUTH TWICE A DAY NEEDED Start Date: 06/02/19 Status: Ordered clotrimazole 1% topical cream 1 application, Topically, 2 times a day, # 30 Gm, 0 Refills, Maintenance, 05/30/19 19:02:00 EST, Cream, [facility]/pharmacy #[id number], 1 application Topically 2 times a day, 160, cm, 05/30/19 18:08:00 EST, Height, 88.9, kg, 05/23/19 22:09:00 EST, Dry Weight Start Date: 05/30/19 Status: Ordered duloxetine 60 mg oral enteric coated capsule TAKE 1 CAPSULE BY MOUTH EVERY DAY Start Date: 10/29/17 Status: Ordered hydroCHLOROthiazide 12.5 mg oral capsule 1 capsule = 12.5 mg, By Mouth, Daily, Maintenance, 05/24/19 9:12:00 EST, Capsule Start Date: 05/24/19 Status: Ordered hydrochlorothiazide 12.5 mg oral tablet 1 tablet = 12.5 mg, By Mouth, Daily, # 90 tablet, 3 Refills, Maintenance, 09/02/19 10:23:00 EDT, Tablet, [facility]/pharmacy #[id number], PLEASE CANCEL LISINOPRIL, 160, cm, 07/22/19 15:08:00 EDT, Height, 86.8, kg, 07/22/19 15:13:00 EDT, Dry Weight Start Date: 09/02/19 Status: Ordered Insulin Syringe, BD Ultra-Fine 1 cc 31 G x 8 mm (08/19in) See Instructions, # 30 each, Refills 11, [...] 5 Refills, Maintenance, 04/28/19 16:05:00 EST, Tablet, [facility]/pharmacy #[id number], 158, cm, 04/28/19 14:51:00 EST, Height, 82, kg, 04/01/19 16:10:00 EST, Dry Weight Start Date: 04/28/19 Status: Ordered Lantus 100 u/ml subcutaneous solution = 13 units, Subcutaneous Injection, Daily, # 10 mL, 11 Refills, Maintenance, 09/05/19 14:10:00 EDT,Solution, [facility]/pharmacy #[id number], 160, cm, 07/22/19 15:08:00 EDT, Height, 86.8, kg, 07/22/19 15:13:00 EDT, Dry Weight Start Date: 09/05/19 Status: Ordered lidocaine 5% topical film 1 patch, Topically, Daily, For chronic radicular back pain, # 30 patch, 5 Refills, Maintenance, 06/27/19 14:37:00 EDT, [facility]/pharmacy #[id number], 1 patch Topically Daily,Instr:For chronic [...] not to exceed 3000 mg/day. instructions in swedish, # 120 tablet, 2 Refills, Maintenance, 07/25/19 8:41:00 EDT, Tablet, [facility]/pharmacy #[id number], 160, cm, 07/22/19 15:08:00 EDT, Height, 86.8, kg, 04... Start Date: 07/25/19 Status: Ordered metFORMIN 1000 mg oral tablet 1 tablet = 1,000 mg, By Mouth, 2 times a day, # 60 tablet, 6 Refills, Maintenance, 09/12/19 14:39:00 EDT, Tablet, [facility]/pharmacy #[id number], 160, cm, 07/22/19 15:08:00 EDT, Height, [...] 2Refills, Maintenance, 10/06/19 7:45:00 EDT, EC Capsule, [facility]/pharmacy #[id number], cancel Ranitidine, 160,cm, 09/28/19 8:58:00 EDT, Height, 86.8, kg, ... Start Date: 10/06/19 Status: Ordered oxyCODONE 10 mg oral tablet 1 tablet = 10 mg, By Mouth, 2 times a day, PRN pain, for 28 days, on contract at [facility]., # 56 tablet, 0 Refills, Acute 11/07/19 15:11:00 EDT, 10/10/19 15:11:00 EDT, [facility]/pharmacy #[id number], Partial fill upon patient request, 160, cm, 09/28/19 8:58:00 EDT, H... Start Date: 10/10/19 Stop Date: 11/07/19 Status: Ordered Pen [place], 31 G x 5 mm BD Ultra [...] 05/30/19 18:52:00 EST, Route to Pharmacy Electronically, [facility]/pharmacy #[id number], 160, cm, 05/30/19 18:08:00 EST, [...] tablet, 5 Refills, Maintenance, 05/04/19 9:35:00 EST, [facility]/pharmacy #[id number], 158, cm, 04/28/19 14:51:00 EST, Height, 82, kg, 04/01/19 16:10:00 EST, Dry Weight Start Date: 05/04/19 Status: Ordered Senna 8.6 mg oral tablet 8.6 mg, 1, tablet, By Mouth, Daily at bedtime, # 100 tablet, Refills 2, Tot. Refills 2, Maintenance, 06/10/19 16:12:00 EST, Route to Pharmacy Electronically, [facility]/pharmacy #[id number], 160, cm, 06/01/19 14:08:00 EST, Height, 88.9, kg, 05/23/19 22:09:00 EST,... Start Date: 06/10/19 Status: Ordered Spiriva Respimat 60 ACT 2.5 mcg/inh inhalation aerosol 2 puffs, Inhalation, Daily, # 1 each, 5 Refills, Maintenance, 04/26/19 10:30:00 EST, [facility]/pharmacy #[id number], 158, cm, 04/26/19 9:58:00 EST, Height, 82, kg, 04/01/19 16:10:00 EST, Dry Weight Start Date: 04/26/19 Status: Ordered tiZANidine 4 mg oral tablet 4 mg, 1, tablet, By Mouth, Every 8 hours, # 90 tablet, Refills 1, Tot. Refills 1, Maintenance, 09/02/19 10:12:00 EDT, Route to Pharmacy Electronically, [facility]/pharmacy #[id number], 160, cm, 07/22/19 15:08:00 EDT, Height, [...] [address] [place] 09[place]18[place]16 [place] [facility] [place] 6surgically repaired July 2015 Dr. Sg MENDEZ 7urge and stress Social History Social History Type Response Tobacco Use: Pt states she q uit smoking 1 week ago. Sex Female
--- OUTSIDE RECORDS SUMMARY | 2023-03-25 08:27 | XMS_ITS | Continuity of Care Document ---
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, Leonora Pérez Primary Care Physician [place] [facility] [place] 08/21[place]22 - 09/20/22 [facility] [address] [place] [address]- Attending Physician: Not on Staff, Attending MD Allergies, Adverse Reactions, Alerts Substance Reaction Severity Status morphine Active gabapentin swelling Active Lyrica dysphagia Active SEROquel body swelling - all over Act tony MetFORMIN Hydrochloride ER black tarry stool Active Immunizations Given and Recorded Vaccine Date Status Refusal Reason [id number] 12y+ bivalent booster vax 01/30/22 Given influenza virus vaccine, inactivated 01/30/22 Give n influenza virus vaccine, inactivated 02/04/21 Give n influenza virus vaccine, inactivated 1 04/19/20 Gi tonio influenza virus vaccine, inactivated 03/12/19 Give n influenza virus vaccine, inactivated 01/19/18 Give n influenza virus vaccine, inactivated 02/16/17 Give n pneumococcal 20-valent conjugate vaccine 12/26/21 Given SARS-CoV-2 mRNA ([id number]) vax 05/14/21 Given SARS-CoV-2 (COVID-19) mRNA [id number]-[id number] [...] 10/22/21 9:23:00 EDT, Route to Pharmacy Electronically, [facility], Partial fill uponpatient request if the prescription [...] tablet, 1 Refills, Maintenance, 07/25/22 12:30:00 EDT, [facility], 163, cm, 07/11/22 14:19:00 EDT, Height, 83, kg, 02/11/22 19:19:00 EST, Dry Weight Start Date: 07/25/22 Status: Ordered amLODIPine 5 mg oral tablet 5 mg, 1, tablet, By Mouth, Daily, # 90 tablet, Refills 3, Tot. Refills 3, Maintenance, 04/29/22 11:56:00 EST, Route to Pharmacy Electronically, [facility], Partial fill upon patient request if the prescription is for a schedule II opio... Start Date: 04/29/22 Status: Ordered cholecalciferol 5000 intl units oral capsule 1 capsule = 125 mcg, By Mouth, Daily, with food, # 100 capsule, 2 Refills, Maintenance, 02/11/21 11:17:00 EST, Capsule, [facility]/pharmacy #[id number], Partial fill upon patient request if the prescription is for a schedule II opioid drug., 155, cm, 02/11/21 8:53... Start Date: 02/11/21 Status: Ordered clonazePAM 0.5 mg oral tablet 1 tablet = 0.5 mg, By Mouth, 2 times a day, # 60 tablet, 0 Refills, Maintenance, 07/25/22 17:58:00 EDT, [facility] Partial fill upon patient request [...] Gm, 1 Refills, Maintenance, 09/03/22 14:02:00 EDT, [facility], 15, APPLY TOPICALLY TO AFFECTED AREA TWO TIMES A DAY,163, cm, 08/14/22 16:50:00 EDT, Height, 83, kg, 11/... Start Date: 09/03/22 Status: Ordered docusate-senna 50 mg-187 mg oral tablet 2 tablet, By Mouth, 2 times a day, PRN Constipation, # 100 tablet, 11 Refills, Maintenance, 08/14/22 16:57:00 EDT, Tablet, [facility]., Partial fill upon patient request if the prescription is for a schedule II opioid drug., 2 tablet By... Start Date: 08/14/22 Status: Ordered duloxetine 60 mg oral enteric coated capsule 2 capsule = 120 mg, By Mouth, Daily, # 60 capsule, 5 Refills, Maintenance, 05/26/22 17:03:00 EST, Capsule, [facility] Partial fill upon patient request. NOT INCREASED DOSE. Please cancel all other Duloxetine scripts, 163, cm, 05/19/22... Start Date: 05/26/22 Status: Ordered empagliflozin 10 mg oral tablet 1 tablet = 10 mg, By Mouth, Daily in AM, # 30 tablet, 5 Refills, Maintenance, 02/20/22 12:04:00 EST, Tablet, [facility]., Partial fill upon patient request if the prescription is for aschedule II opioid drug., 163, cm, 02/11/22 19:19:0... Start Date: 02/20/22 Status: Ordered ibuprofen 800 mg oral tablet 1, tablet, By Mouth, 3 times a day, PRN, # 90 tablet, Refills 1, Tot. Refills 1, Maintenance, NEEDED FOR PAIN, 07/11/22 15:09:00 EDT, Route to Pharmacy Electronically, [facility], 163, cm, 07/11/22 14:19:00 EDT, Height, 83, kg, 11/0... Start Date: 07/11/22 Status: Ordered Lantus 100 u/ml subcutaneous solution = 50 units, Subcutaneous Injection, Daily, # 15 mL, 2 Refills, Maintenance, 01/06/22 12:07:00 EDT, Solution, [facility], ;, 163, cm, 01/03/22 11:20:00 EDT, Height, 84, kg, 01/02/22 19:36:00 EDT, Dry Weight Start Date: 01/06/22 Status: Ordered lidocaine 5% topical film 1 patch, Topically, Daily, PRN Pain , Mild, remove after 12 hours, # 13 each, 5 Refills, Maintenance, 04/29/22 11:56:00 EST, Film, [facility], Partial fill upon patient request if theprescription is for a schedule II opioid drug., 1 p... Start Date: 04/29/22 Status: Ordered lisinopril 20 mg oral tablet 20 mg, 1, tablet, By Mouth, Daily, # 90 tablet, Refills 1, Tot. Refills 1, Maintenance, 07/25/22 12:31:00 EDT, Route to Pharmacy Electronically, [facility], 163, cm, 07/11/22 14:19:00EDT, Height, 83, kg, [...] 30 capsule, 2 Refills, 08/26/22 13:27:00 EDT, [facility], 163, cm, 08/14/22 16:50:00 EDT, Height, 83, kg, 02/11/22 19:19:00 EST, Dry Weight Start Date: 08/26/22 Status: Ordered oxyCODONE 15 mg oral tablet 1 tablet = 15 mg, By Mouth, 3 times a day, on contract at [facility], # 84 tablet, 0 Refills, Maintenance, 08/26/22 13:21:00 EDT, [facility], Partial fill upon patient request if the [...] capsule, 0 Refills, Maintenance, 08/26/22 13:22:00 EDT, [facility], 163, cm, 08/14/22 16:50:00 EDT, Height, 83, [...] each, 5 Refills, Maintenance, 08/14/22 16:59:00 EDT, [facility]., Partial fill upon patient request if the prescription is for a schedule II opioid drug., 1 sprays Nares, Both Daily, 163, cm, 0... 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 Charlene Fabian [phone] Confirmed Active Syncope and collapse Confirmed Active [...] Team Personnel Name: Sindy Bernal RN Position: [facility] RN Member Role: Primary Care Nurse Name: Graciela Thrasher RN Position: [facility] RN Member Role: Primary Care Nurse Name: Stevie Angel RN Position: [facility] RN Member Role: Primary Care Nurse Name: Leonora Bai NP Position: [facility] PCO Associate Professional Member Role: PCP Address: Address: [address] [place] [address] [place] [address]- Name: Keily Ortega RN Position: [facility] RN Member Role: Primary Care Nurse Name: Nichole Pichardo RN Position: [facility] RN Member Role: Primary Care Nurse Name: Nahid RNMelvin Position: [facility] AMB Nurse Member Role: Primary Care Nurse Name: Phuong Berkowitz RN Position: [facility] RN Member Role: Primary Care Nurse Name: Joselyn Rain RN Position: [facility] Hospital Geological Aide Member Role: Primary Care Nurse Care Team Related Persons Name: IRA ROMERO Address: home [address] [place] [address] Name: JHON LARSON Address: [address] [place] [address] Name: JHON LARSON Address: [address] [place] [address] Name: GALO CATALAN Name: NANCY CATALAN Address: home [address] [place] [address]
--- OUTSIDE RECORDS SUMMARY | 2023-03-25 08:27 | XMS_ITS | Continuity of Care Document ---
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 [...] 5 Refills, Maintenance, 04/19/19 15:40:00 EST, Tablet, [facility]/pharmacy #[id number], 158, cm, 04/04/19 15:21:00 EST, Height, [...] USE 1 SPRAY IN BOTH NOSTRILS DAILY, [facility]/pharmacy #[id number] Start Date: 12/01/18 Status: Ordered Freestyle [...] Refills, Maintenance, 04/28/19 15:58:00 EST, REC Powder, [facility]/pharmacy #[id number], 240 mL By Mouth Every 10 minutes, 158, cm, 04/28/19 14:51:00 EST, Height, 82, kg, 04/01/19 16:10:00 EST, Dry Weight Start Date: 04/28/19 Status: Ordered Januvia 100 mg oral tablet 1 tablet = 100 mg, By Mouth, Daily, # 30 tablet, 5 Refills, Maintenance, 04/28/19 16:05:00 EST, Tablet, [facility]/pharmacy #[id number], 158, cm, 04/28/19 14:51:00 EST, Height, 82, kg, 04/01/19 16:10:00 EST, Dry Weight Start Date: 04/28/19 Status: Ordered lisinopril 10 mg oral tablet 10 mg, 1, tablet, By Mouth, Daily, # 90 tablet, Refills 3, Tot. Refills 3, Maintenance, 05/08/19 20:27:00 EST, Route to Pharmacy Electronically, [facility]/pharmacy #[id number], to replace 2.5mg dose, 158, cm, [...] Refills, Soft Stop, 05/14/19 19:08:00 EST, Tablet, [facility]/pharmacy #[id number], 163, cm, 05/14/19 17:09:00 EST, Height, 85.6, kg, 05/14/19 17:09:00 EST, Dry Weight Start Date: 05/14/19 Status: Ordered menthol-methyl salicylate 1%-15% topical cream See Instructions, Please apply to lower back, # 15 mL, 0 Refills, Maintenance, 04/04/19 16:22:00 EST, [facility]/pharmacy #[id number], Please apply to lower back, 158, cm, 04/04/19 15:21:00 EST, Height, 82, kg, 04/01/19 16:10:00 EST, Dry Weight Start Date: 04/04/19 Status: Ordered metFORMIN 750 mg oral tablet, extended release 1 tablet = 750 mg, By Mouth, Daily, # 30 tablet, 6 Refills, Maintenance, 04/04/19 16:29:00 EST, ER Tablet, [facility]/pharmacy #[id number], 158, cm, 04/04/19 15:21:00 EST, Height, [...] pain, for 28 days, on contract at [facility] # 56 tablet, 0 Refills, Acute 06/01/19 9:36:00 EST, 05/04/19 9:36:00 EST, [facility]/pharmacy #[id number], Partial fill uponpatient request, 158, cm, [...] 1 TABLET BY MOUTH EVERYDAY AT BEDTIME, [facility]/pharmacy #[id number] Start Date: 01/27/19 Status: Ordered Senexon-S 2 tablet, By Mouth, Daily at bedtime, 0 Refills, Maintenance, 11/25/18 10:10:49 EDT Start Date: 11/25/18 Status: Ordered senna 187 mg oral tablet 1 tablet = 8.6 mg, By Mouth, Daily at bedtime, PRN as needed for constipation, # 100 tablet, 5 Refills, Maintenance, 05/04/19 9:35:00 EST, [facility]/pharmacy #[id number], 158, cm, 04/28/19 14:51:00 EST, Height, 82, kg, 04/01/19 16:10:00 EST, Dry Weight Start Date: 05/04/19 Status: Ordered Spiriva Respimat 60 ACT 2.5 mcg/inh inhalation aerosol 2 puffs, Inhalation, Daily, # 1 each, 5 Refills, Maintenance, 04/26/19 10:30:00 EST, [facility]/pharmacy #[id number], 158, cm, 04/26/19 9:58:00 EST, Height, 82, kg, 04/01/19 16:10:00 EST, Dry Weight Start Date: 04/26/19 Status: Ordered Tums 500 mg oral tablet, chewable 500 mg, 1, tablet, Chew, 2 times a day, PRN, # 45 tablet, Refills 0, Tot. Refills 0, Maintenance, as needed for dyspepsia, 10/18/18 15:31:54 EDT, Route to Pharmacy Electronically, [id number], [facility]/pharmacy #[id number] Start Date: 10/18/18 Status: Ordered Urinary incontinence pantiliners Urinary incontinence pantiliners, See Instructions, # 90 each, Refills 11, Tot. Refills 11, Maintenance, Dx: stress urinary incontinence Use three per day. Duration 1 year, 04/08/19 14:16:00 EST, Compound Start Date: 1/3/20 Status: Ordered Vitamin D3 5000 intl units [...] MARILIN on CPAP(Confirmed) Active Panic attacks(Confirmed) Active *[facility] [phone]/Health fdc, active care coordination(Confirmed) Active Acute meniscal tear [...] [place] 6seen on CT Abd [place]18[place] [facility] 7surgically repaired July 2015 Dr. Sg MENDEZ 8urge and stress Social History Social History Type Response Tobacco Use: Pt states she q uit smoking 1 week ago. Sex Female
--- OUTSIDE RECORDS SUMMARY | 2023-03-25 08:27 | XMS_ITS | Continuity of Care Document ---
Author Name Unknown Organization [facility] Address [address] [place] [address]- Care Team Providers Care Rn Gastroenterology Name Role Phone Aaron GERARDO, Pura Mahajan Primary Care Physician [phone] Encounter [facility] Date(s): 02/18/23 - 03/20/23 [facility] [address] [place] [address]- Allergies, Adverse Reactions, Alerts Substance Reaction Severity Status morphine Active gabapentin swelling Active Lyrica dysphagia Active MetFORMIN Hydrochloride ER black tarry stool Active SEROquel body swelling - all over Act tony Immunizations Given and Recorded Vaccine Date Status Refusal Reason pneumococcal 20-valent conjugate vaccine 03/05/23 Given pneumococcal 20-valent conjugate vaccine 12/26/21 Given influenza virus vaccine, inactivated 03/05/23 Give n influenza virus vaccine, inactivated 01/30/22 Give n influenza virus vaccine, inactivated 02/04/21 Give n influenza virus vaccine, inactivated 1 04/19/20 Gi tonio influenza virus vaccine, inactivated 03/12/19 Give n influenza virus vaccine, inactivated 01/19/18 Give n influenza virus vaccine, inactivated 02/16/17 Give n [id number] 12y+ bivalent booster vax 01/30/22 Given SARS-CoV-2 mRNA ([id number]) vax 05/14/21 Given SARS-CoV-2 (COVID-19) mRNA BNT-162b2 vac 2 10/19/20 Given SARS-CoV-2 (COVID-19) mRNA BNT-162b2 vac 09/28/20 Given pneumococcal 23-valent vaccine 03/12/19 Given tetanus/diphtheria/pertussis, acel(Tdap) 07/29/13 Given 1Early/Late Reason: Early/Late Reason: Patient Not Available/Off Unit 2? Unknown: Resend to [facility]. Resend to [facility]. Medications acetaminophen 325 mg oral tablet 650 mg, 2, tablet, By Mouth, 3 times a day, # 540 tablet, Refills 3, Tot. Refills 3, Maintenance, 03/05/23 16:21:00 EST, Route to Pharmacy Electronically, [facility], Partial fill upon patient request if the prescription is for a sched... Start Date: 03/05/23 Status: Ordered Advair Diskus 500 mcg-50 mcg inhalation powder 1, inhalation, Inhalation, 2 times a day, rinse mouth and throat after use, # 60 each, Refills 11, Tot. Refills 11, Maintenance, 09/25/22 17:00:00 EDT, Inhaler, Route to Pharmacy Electronically, [id number], [facility]... Start Date: 09/25/22 Status: Ordered albuterol 0.083% inhalation solution 3 mL = 2.5 mg, Neb, Every 4 hours, PRN Wheezing/Shortness of Breath, # 100 each, 11 Refills, Maintenance, 12/26/22 8:14:00 EDT, Inhalation Solution, [facility], Partial fill upon patient request if the prescription is for a schedule II... Start Date: 12/26/22 Status: Ordered All Day Allergy 10 mg oral tablet 1 tablet, By Mouth, Daily, # 90 tablet, 3 Refills, Maintenance, 11/20/22 16:48:00 EDT, [facility], 163, cm, 11/20/22 16:00:00 EDT, Height, 83, kg, 02/11/22 19:19:00 EST, Dry Weight Start Date: 11/20/22 Status: Ordered amLODIPine 5 mg oral tablet 5 mg, 1, tablet, By Mouth, Daily, # 90 tablet, Refills 3, Tot. Refills 3, Maintenance, 03/05/23 16:29:00 EST, Route to Pharmacy Electronically, [facility] Partial fill upon patient request if the prescription is for a schedule II opio... Start Date: 03/05/23 Status: Ordered atorvastatin 40 mg oral tablet 1 tablet = 40 mg, By Mouth, Daily, # 90 tablet, 3 Refills, Maintenance, 09/25/22 16:58:00 EDT, Tablet, [facility] Partial fill upon patient [...] 2 Refills, Maintenance, 12/26/22 8:13:00 EDT, [facility] 15, APPLY TOPICALLY TO AFFECTED AREA TWO TIMES A DAY FOR TWO WEEKS, 163, cm, ... Start Date: 12/26/22 Status: Ordered diclofenac 1% topical gel 1 application, Topically, 4 times a day, # 100 Gm, 4 Refills, Maintenance, 03/05/23 16:21:00 EST, Gel, [facility]., Partial fill upon patient request if the prescription is for a schedule II opioid drug., 163, cm, 03/05/23 15:09:00 EST,... Start Date: 03/05/23 Status: Ordered docusate-senna 50 mg-187 mg oral tablet 2 tablet, By Mouth, 2 times a day, PRN Constipation, # 360 tablet, 3 Refills, Maintenance, 03/05/2316:29:00 EST, Tablet, [facility]., Partial fill upon patient request if the prescription is for a schedule II opioid drug., 2 tablet By... Start Date: 03/05/23 Status: Ordered duloxetine 20 mg oral enteric [...] 3 Refills, Maintenance, 09/25/22 17:01:00 EDT, Tablet, [facility], Partial fill upon patient request if the prescription is for aschedule II opioid drug., 163, cm, 09/25/22 16:20:0... Start Date: 09/25/22 Status: Ordered ibuprofen 800 mg oral tablet 1, tablet, By Mouth, 3 times a day, PRN, # 90 tablet, Refills 1, Tot. Refills 1, Maintenance, NEEDED FOR PAIN, 10/22/22 15:19:00 EDT, Route to Pharmacy Electronically, [facility], 163, cm, 09/25/22 16:20:00 EDT, Height, 83, kg, 11/0... Start Date: 10/22/22 Status: Ordered Januvia 100 mg oral tablet 1 tablet, By Mouth, Daily, # 30 tablet, 11 Refills, Maintenance, 11/26/22 10:02:00 EDT, [facility], 163, cm, 11/20/22 16:00:00 EDT, Height, 83, kg, 02/11/22 19:19:00 EST, Dry Weight Start Date: 11/26/22 Status: Ordered lidocaine 5% topical film 1 patch, Topically, Daily, PRN Pain , Mild, remove after 12 hours, # 13 each, 5 Refills, Maintenance, 09/25/22 16:59:00 EDT, Film, [facility], Partial fill upon patient request if theprescription is for a schedule II opioid drug., 1 p... Start Date: 09/25/22 Status: Ordered Lidoderm 5% film 2 patch, Topically, Daily, remove patches after 12 hours; 2 patches to pain areas; can cut patches in half; do not excede 2 patches., # 60 patch, 4 Refills, Maintenance, 03/05/23 16:22:00 EST, [facility], Partial fill upon patient requ... Start Date: 03/05/23 Stop Date: 08/02/23 Status: Ordered lisinopril 20 mg oral tablet 20 mg, 1, tablet, By Mouth, Daily, # 90 tablet, Refills 3, Tot. Refills 3, Maintenance, 11/20/22 16:48:00 EDT, Route to Pharmacy Electronically, [facility], 163, cm, 11/20/22 16:00:00EDT, Height, 83, kg, 02/11/22 19:19:00 EST, Dry Weight Start Date: 11/20/22 Status: Ordered mirtazapine 30 mg oral tablet 1 tablet = 30 mg, By Mouth, Daily at bedtime, # 90 tablet, 1 Refills, Maintenance, 09/25/22 17:00:00 EDT, Tablet, [facility], Partial fill upon patient request if the prescription is for a schedule II opioid drug., 163, cm, 09/25/22 16... Start Date: 09/25/22 Status: Ordered omeprazole 40 mg oral enteric coated capsule 1 capsule, By Mouth, Daily, PRN NEEDED, # 90 capsule, 1 Refills, Maintenance, 11/25/22 10:53:00 EDT, [facility], 163, cm, 11/20/22 16:00:00 EDT, Height, 83, kg, 02/11/22 19:19:00 EST, Dry Weight Start Date: 11/25/22 Status: Ordered oxyCODONE 15 mg oral tablet 1 tablet = 15 mg, By Mouth, Every 8 hours, PRN Pain , Severe, [employer] checked. Opioid agreement at [facility], # 84 tablet, 0 Refills, Maintenance, 03/20/23 9:34:00 EST, [facility], Partialfill upon patient request if the prescription is f... Start Date: 03/20/23 Stop Date: 04/17/23 Status: Ordered prazosin 2 mg oral capsule [...] 01/27/23 9:28:00 EDT, Route to Pharmacy Electronically, [facility] 163, cm, 11/20/22 16:00:00 EDT, Height, 83, kg... Start Date: 01/27/23 Status: Ordered topiramate 25 mg oral capsule 2 capsule = 50 mg, By Mouth, Daily, take 1 cap daily x 2 weeks then 2 caps daily, # 60 capsule, 4 Refills, Maintenance, 03/05/23 16:23:00 EST, Capsule, [facility]., Partial fill upon patient request if the prescription is for a schedule... Start Date: 03/05/23 Status: Ordered traZODone 50 mg oral tablet 1/2 TO 1 TABLET, By Mouth, Daily at bedtime, # 30 tablet, Refills 5, Tot. Refills 5, Maintenance, 02/18/23 14:55:00 EST, Route to Pharmacy Electronically, [facility]., 163, cm, 11/20/22 16:00:00 EDT, Height, 83, kg, 02/11/22 19:19:00 ES... Start Date: 02/18/23 Status: Ordered triamcinolone 55 mcg/inh nasal spray 1 sprays = 55 mcg, Nares, Both, Daily, # 3 each, 3 Refills, Maintenance, 03/05/23 16:29:00 EST, [facility]., Partial fill upon patient request if the prescription is for a schedule II opioid drug., 1 sprays Nares, Both Daily, 163, cm, 1... 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 Active Depression: Major depressive disorder/ setting of bipolar Confirmed Active Obesity Confirmed Active MARILIN on CPAP - Obstructive sleep apnea, sleep team /due Confirmed Active Panic attacks Confirmed Active N/CP 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 Charlene Fabian [phone] Confirmed Active Syncope and collapse Confirmed Active Tobacco dependence Confirmed Active DM2 (diabetes mellitus, type 2) Confirmed 04/03/17 Active Incontinence of urine 5 Confirmed Active 1on polysomnogram 2seen on MRI 10/2016, rec repeat imaging in October 2017 pain managemnt team/ Dr Diop indicated they thought pain was fibromyalgia 4seen on CT Abd 09[place]18/16 [place] [facility], pending [place] 5urge and stress Social History [...] Care Nurse Name: Keily Ortega RN Position: S RN Member Role: Primary Care Nurse Name: Graciela Munroe RN Position: S RN Member Role: Primary Care Nurse Name: Nichole Pichardo RN Position: [facility] RN Member Role: Primary Care Nurse Name: Melvin Whitfield RN Position: [facility] AMB Nurse Member Role: Primary Care Nurse Name: Phuong Berkowitz RN Position: [facility] RN Member Role: Primary Care Nurse Name: Pura Walker MD Position: [facility] Physician - Primary Care Member Role: PCP Address: Address: [address] [place] [id number] Name: Joselyn Rain RN Position: [facility] Hospital Tank Wagon Operator Member Role: Primary Care Nurse Care Team Related Persons Name: NICK IRA Address: home [address] [place] [address] Name: JHON LARSON Address: home [address] [place] [address] Name: JHON LARSON Address: [address] [place] [address] Name: GALO CATALAN Name: NANCY CATALAN Address: home [address] [place] [address]
--- OUTSIDE RECORDS SUMMARY | 2023-03-25 08:27 | XMS_ITS | Continuity of Care Document ---
Author Name Unknown Organization [facility] Address [address] [place] [address]- Care Team Providers Care Circle Shear Operator Name Role Phone Richardson DEFENSIVE FIRE CONTROL SYSTEMS OPERATOR, Leonora Pérez Primary Care Physician [phone] Encounter [facility] Date(s): 10/21/22 - 11/20/22 [facility] [address] [place] [address]- Allergies, Adverse Reactions, Alerts Substance Reaction Severity Status morphine Active gabapentin swelling Active Lyrica dysphagia Active SEROquel body swelling - all over Act tony MetFORMIN Hydrochloride ER black tarry stool Active Immunizations Given and Recorded Vaccine Date Status Refusal Reason [id number] 12y+ bivalent booster vax 01/30/22 Given influenza virus vaccine, inactivated 01/30/22 Give n influenza virus vaccine, inactivated 02/04/21 Give n influenza virus vaccine, inactivated 1 04/19/20 Gi tonio influenza virus vaccine, inactivated 03/12/19 Give n influenza virus vaccine, inactivated 01/19/18 Give n influenza virus vaccine, inactivated 02/16/17 Give n pneumococcal 20-valent conjugate vaccine 12/26/21 Given SARS-CoV-2 mRNA ([id number]) vax 05/14/21 Given SARS-CoV-2 (COVID-19) mRNA BNT-162b2 [...] 09/25/22 17:00:00 EDT, Route to Pharmacy Electronically, [facility], Partial fill upon patient request if the prescription is for a sched... Start Date: 09/25/22 Status: Ordered Advair Diskus 500 mcg-50 mcg inhalation powder 1, inhalation, Inhalation, 2 times a day, rinse mouth and throat after use, # 60 each, Refills 11, Tot. Refills 11, Maintenance, 09/25/22 17:00:00 EDT, Inhaler, Route to Pharmacy Electronically, [id number], [facility]... Start Date: 09/25/22 Status: Ordered albuterol 0.083% inhalation solution 3 mL = 2.5 mg, 0 Refills, Maintenance, 02/06/22 16:39:00 EDT, Partial fill upon patient request if the prescription is for a schedule II opioid drug. Start Date: 02/06/22 Status: Ordered All Day Allergy 10 mg oral tablet 1 tablet, By Mouth, Daily, # 90 tablet, 3 Refills, Maintenance, 11/20/22 16:48:00 EDT, [facility], 163, cm, 11/20/22 16:00:00 EDT, Height, 83, kg, 02/11/22 19:19:00 EST, Dry Weight Start Date: 11/20/22 Status: Ordered amLODIPine 5 mg oral tablet 5 mg, 1, tablet, By Mouth, Daily, # 90 tablet, Refills 3, Tot. Refills 3, Maintenance, 04/29/22 11:56:00 EST, Route to Pharmacy Electronically, [facility], Partial fill upon patient request if the prescription is for a schedule II opio... Start Date: 04/29/22 Status: Ordered atorvastatin 40 mg oral tablet 1 tablet = 40 mg, By Mouth, Daily, # 90 tablet, 3 Refills, Maintenance, 09/25/22 16:58:00 EDT, Tablet, [facility] Partial fill upon patient request [...] tablet, 0 Refills, Maintenance, 07/25/22 17:58:00 EDT, [facility]., Partial fill upon patient request [...] Gm, 1 Refills, Maintenance, 09/03/22 14:02:00 EDT, [facility], 15, APPLY TOPICALLY TO AFFECTED AREA TWO TIMES A DAY,163, cm, 08/14/22 16:50:00 EDT, Height, 83, kg, 11/... Start Date: 09/03/22 Status: Ordered docusate-senna 50 mg-187 mg oral tablet 2 tablet, By Mouth, 2 times a day, PRN Constipation, # 100 tablet, 11 Refills, Maintenance, 08/14/22 16:57:00 EDT, Tablet, [facility]., Partial fill upon patient request if the prescription is for a schedule II opioid drug., 2 tablet By... Start Date: 08/14/22 Status: Ordered doxycycline hyclate 100 mg oral tablet 1 tablet = 100 mg, By Mouth, 2 times a day, for 7 days, # 14 tablet, 0 Refills, Acute 11/27/22 16:35:00 EDT, 11/20/22 16:35:00 EDT, Tablet, [facility] Partial fill upon patient request if the prescription is for a schedule II opioid d... Start Date: 11/20/22 Stop Date: 11/27/22 Status: Ordered duloxetine 60 mg oral enteric coated capsule 2 capsule = 120 mg, By Mouth, Daily, # 60 capsule, 11 Refills, Maintenance, 11/20/22 16:48:00 EDT, Capsule, [facility] Partial fill upon patient request. NOT INCREASED DOSE. Please cancel all other Duloxetine scripts, 163, cm, ... Start Date: 11/20/22 Status: Ordered empagliflozin 10 mg oral tablet 1 tablet = 10 mg, By Mouth, Daily in AM, # 90 tablet, 3 Refills, Maintenance, 09/25/22 17:01:00 EDT, Tablet, [facility]., Partial fill upon patient request [...] 10/22/22 15:19:00 EDT, Route to Pharmacy Electronically, [facility] 163, cm, 09/25/22 16:20:00 EDT, Height, 83, kg, 11/0... Start Date: 10/22/22 Status: Ordered lidocaine 5% topical film 1 patch, Topically, Daily, PRN Pain , Mild, remove after 12 hours, # 13 each, 5 Refills, Maintenance, 09/25/22 16:59:00 EDT, Film, [facility]., Partial fill upon patient request if theprescription is for a schedule II opioid drug., 1 p... Start Date: 09/25/22 Status: Ordered lisinopril 20 mg oral tablet 20 mg, 1, tablet, By Mouth, Daily, # 90 tablet, Refills 3, Tot. Refills 3, Maintenance, 11/20/22 16:48:00 EDT, Route to Pharmacy Electronically, [facility] 163, cm, 11/20/22 16:00:00EDT, Height, 83, kg, 02/11/22 19:19:00 EST, Dry Weight Start Date: 11/20/22 Status: Ordered mirtazapine 30 mg oral tablet 1 tablet = 30 mg, By Mouth, Daily at bedtime, # 90 tablet, 1 Refills, Maintenance, 09/25/22 17:00:00 EDT, Tablet, [facility]., Partial fill upon patient request if the prescription is for a schedule II opioid drug., 163, cm, 09/25/22 16... Start Date: 09/25/22 Status: Ordered omeprazole 40 mg oral enteric coated capsule 1 capsule, By Mouth, Daily, PRN NEEDED, # 30 capsule, 2 Refills, 08/26/22 13:27:00 EDT, [facility], 163, cm, 08/14/22 16:50:00 EDT, Height, 83, kg, 02/11/22 19:19:00 EST, Dry Weight Start Date: 08/26/22 Status: Ordered oxyCODONE 15 mg oral tablet 1 tablet = 15 mg, By Mouth, 3 times a day, on contract at [facility], # 84 tablet, 0 Refills, Maintenance, 10/24/22 11:04:00 EDT, [facility]., Partial fill upon patient request [...] 90 capsule, 1 Refills, Maintenance,09/25/22 16:54:00 EDT, [facility]., 163, cm, 09/25/22 16:20:00 EDT, Height, 83, kg, 02/11/22 19:19:00 EST, Dry Weight Start Date: 09/25/22 Status: Ordered traZODone 50 mg oral tablet 1/2 TO 1 TABLET, By Mouth, Daily at bedtime, # 30 tablet, Refills 5, Maintenance, 08/29/22 11:31:00EDT, Route to Pharmacy Electronically, [facility], 163, cm, 08/14/22 16:50:00 EDT, Height, 83, kg, 02/11/22 19:19:00 EST, Dry Weight Start Date: 08/29/22 Status: Ordered triamcinolone 55 mcg/inh nasal spray 1 sprays = 55 mcg, Nares, Both, Daily, # 1 each, 5 Refills, Maintenance, 08/14/22 16:59:00 EDT, [facility], Partial fill upon patient request if the prescription is for a schedule II opioid drug., 1 sprays Nares, Both Daily, 163, cm, 0... 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 Fabian [phone] Confirmed Active Syncope and collapse Confirmed Active [...] Associate Professional Member Role: PCP Address: Address: [address] [place] [address] Name: Keily Ortega RN Position: [facility] RN Member Role: Primary Care Nurse Name: Nichole Pichardo RN Position: [facility] RN Member Role: Primary Care Nurse Name: Melvin Whitfield RN Position: [facility] AMB Nurse Member Role: Primary Care Nurse Name: Phuong Berkowitz RN Position: [facility] RN Member Role: Primary Care Nurse Name: Joselyn Rain RN Position: [facility] Hospital Diplomatic Interpreter/Translator Member Role: Primary Care Nurse Care Team Related Persons Name: IRA ROMERO Address: home [address] [place] [address] Name: JHON LARSON Address: home [address] [place] [address] Name: JHON LARSON Address: home [address] [place] [address] Name: GALO CATALAN Name: NANCY CATALAN Address: home [address] [place] [address]
--- OUTSIDE RECORDS SUMMARY | 2023-03-25 08:27 | XMS_ITS | Continuity of Care Document ---
Author Name Unknown Organization [facility] Address [address] [place] [address]- Care Team Providers Care Well Logger Name Role Phone Richardson TALEND ETL DEVELOPER, Leonora Pérez Primary Care Physician Encounter [facility] Date(s): 08/27/20 - 09/26/20 [facility] [address] [place] [address]- Allergies, Adverse Reactions, Alerts Substance Reaction Severity [...] 14:12:00 EST, Powder, Route to Pharmacy Electronically, [id number], [facility]/pharmacy #[id number], 162.56, cm, 03/27/20 [...] 16 mL, 1 Refills, Maintenance, [id number], 30, USE 1 SPRAY IN BOTH NOSTRILS [...] 2 Refills, Maintenance, 08/27/20 11:00:00 EDT, Tablet, [facility]/pharmacy #[id number], 163, cm, 08/15/20 14:23:00 EDT, Height, 84.8, kg, 06/25/20 20:28:00 EDT, Dry Weight Start Date: 08/27/20 Status: Ordered Lantus 100 u/ml subcutaneous solution = 40 units, Subcutaneous Injection, Daily, # 12 mL, 11 Refills, Maintenance, 05/07/20 13:24:00 EST,Solution, [facility]/pharmacy #[id number], increased dose [...] 05/07/20 13:30:00 EST, Route to Pharmacy Electronically, [facility]/pharmacy #[id number], 162, cm, 04/21/20 [...] not to exceed 3000 mg/day. instructions in eritrean, # 120 tablet, 2 Refills, Maintenance, 11/01/19 15:24:00 EDT, Tablet, [facility]/pharmacy #[id number], 163, cm, 11/01/19 [...] 2 Refills, Maintenance, 04/05/20 14:08:00 EST, Tablet, [facility]/pharmacy #[id number], Partial fill upon patient request if the prescription is for a schedule II opioid drug., 162.56, cm, ... Start Date: 04/05/20 Status: Ordered omeprazole 40 mg oral enteric coated capsule 1 capsule = 40 mg, By Mouth, Daily, # 90 capsule, 0 Refills, Maintenance, 08/13/20 10:34:00 EDT, ECCapsule, [facility]/pharmacy #[id number], 163, cm, 08/09/20 [...] 06/04/20 12:46:00 EST, Route to Pharmacy Electronically, [facility]/pharmacy #[id number], 162, cm, 05/24/20 9:01:00 EST, Height, 80, kg, 04/18/20 9:48:00 EST, Dry... Start Date: 06/04/20 Status: Ordered Soma 350 mg oral tablet 350 mg, 1, tablet, By Mouth, 3 times a day, # 9 tablet, Refills 0, Tot. Refills 0, Maintenance, 05/04/20 15:46:00 EST, Route to Pharmacy Electronically, [facility]/pharmacy #[id number], Partial fill [...] 08/16/20 11:59:00 EDT, Route to Pharmacy Electronically, [facility]/pharmacy #[id number], 163, cm, 08/15/20 [...]
--- OUTSIDE RECORDS SUMMARY | 2023-03-25 08:27 | XMS_ITS | Continuity of Care Document ---
Author Name Unknown Organization [facility] Address [address] [place] [address]- Care Team Providers Care Spearer Name Role Phone Richardson QUIROZ, Leonora Pérez Primary Care Physician [phone] Encounter [facility] Date(s): 07/05/20 - 08/04/20 [facility] [address] [place] [address]- Allergies, Adverse Reactions, Alerts Substance Reaction Severity [...] 14:12:00 EST, Powder, Route to Pharmacy Electronically, [id number], [facility]/pharmacy #[id number], 162.56, cm, 03/27/20 11:36:00... Start Date: 04/05/20 Status: Ordered albuterol 0.083% inhalation solution 3 mL = 2.5 mg, Inhalation, Every 4 hours, PRN for wheezing, # 100 each, 5 Refills, Maintenance, 06/27/19 14:32:00 EDT, Solution, [facility]/pharmacy #[id number], 160, cm, 06/01/19 14:08:00 EST, [...] 3 Refills, Maintenance, 04/05/20 14:11:00 EST, Tablet, [facility]/pharmacy #[id number], Partial fill upon patient request if the prescription is for a schedule II opioid drug., 162.56, cm, 03/27/20 11:36:00 EST, Heig... Start Date: 04/05/20 Status: Ordered capsaicin 0.025% topical cream 1 application, Topically, 3 times a day, # 45 Gm, 3 Refills, Maintenance, 11/01/19 15:25:00 EDT, Cream, [facility]/pharmacy #[id number], 1 application Topically 3 times [...] 5 Refills, Maintenance, 03/02/20 11:18:00 EST, Capsule, [facility]/pharmacy #[id number], Partial fill upon patient request. [...] mL, 11 Refills, Maintenance, 05/07/20 13:24:00 EST,Solution, [facility]/pharmacy #[id number], increased dose 12/26/19, 162, cm, [...] not to exceed 3000 mg/day. instructions in sinhala, # 120 tablet, 2 Refills, Maintenance, 11/01/19 [...] day, for 28 days, on contract at [facility], # 56 tablet, 0 Refills, Acute 08/27/20 16:11:00 EDT, 07/30/20 16:11:00 EDT, [facility]/pharmacy #[id number], Partial fill upon patient request if the prescription is for a schedule II opi... Start Date: 07/30/20 Stop Date: 08/27/20 Status: Ordered Senna 8.6 mg oral tablet 8.6 mg, 1, tablet, By Mouth, Daily at bedtime, # 100 tablet, Refills 2, Tot. Refills 2, Maintenance, 06/04/20 12:46:00 EST, Route to Pharmacy Electronically, [facility]/pharmacy #[id number], 162, cm, 05/24/20 9:01:00 EST, Height, 80, kg, 04/18/20 9:48:00 EST, Dry... Start Date: 06/04/20 Status: Ordered Soma 350 mg oral tablet 350 mg, 1, tablet, By Mouth, 3 times a day, # 9 tablet, Refills 0, Tot. Refills 0, Maintenance, 05/04/20 15:46:00 EST, Route to Pharmacy Electronically, [facility]/pharmacy #[id number], Partial fill upon patient request if the prescription is for a schedule II opi... Start Date: 05/04/20 Status: Ordered Spiriva Respimat 60 ACT 2.5 mcg/inh inhalation aerosol 2 puffs, Inhalation, Daily, # 1 each, 11 Refills, Maintenance, 04/05/20 14:17:00 EST, [facility]/pharmacy #[id number], Partial [...] 05/03/20 11:26:00 EST, [facility] Electronically, [facility] [place], pending [place] 3urge and stress Social History Social History Type Response Tobacco Use: Pt states she q uit smoking 1 week ago. Sex
--- OUTSIDE RECORDS SUMMARY | 2023-03-25 08:27 | XMS_ITS | Continuity of Care Document ---
Author Name Unknown Organization [facility] Address [address] [place] [address]- Care Team Providers Care Laborer Car Barn Name Role Phone Richardson QUIROZ, Leonora Pérez Primary Care Physician [phone] Encounter [facility] Date(s): 10/29/20 - 11/28/20 [facility] [address] [place] [address]- Allergies, Adverse Reactions, Alerts Substance Reaction Severity [...] 14:12:00 EST, Powder, Route to Pharmacy Electronically, [id number], [facility]/pharmacy #[id number], 162.56, cm, 03/27/20 11:36:00... Start Date: 04/05/20 Status: Ordered albuterol 0.083% inhalation solution 3 mL = 2.5 mg, Inhalation, Every 4 hours, PRN for wheezing, # 100 each, 2 Refills, Maintenance, 08/15/20 10:22:00 EDT, Solution, [facility]/pharmacy #[id number], 163, cm, 08/09/20 8:45:00 EDT, [...] 16 mL, 1 Refills, Maintenance, [id number], 30, USE 1 SPRAY IN BOTH NOSTRILS 2 TIMES A DAY, 163, cm, 08/15/20 14:23:00 EDT, Height,84.8, kg, 06/25/20 20:28:00 EDT, Dry Weight Start Date: 09/07/20 Status: Ordered hydrochlorothiazide 12.5 mg oral tablet 1 tablet = 12.5 mg, By Mouth, Daily, # 90 tablet, 3 Refills, Maintenance, 01/19/20 10:28:00 EDT, Tablet, [facility]/pharmacy #[id number], 163, cm, 12/26/19 13:58:00 EDT, Height, 80, kg, 10/29/19 0:29:00 EDT, Dry Weight Start Date: 01/19/20 Status: Ordered Januvia 100 mg oral tablet 1 tablet = 100 mg, By Mouth, Daily, # 30 tablet, 2 Refills, Maintenance, 10/29/20 14:07:00 EDT, Tablet, [facility]/pharmacy #[id number], 163, cm, 08/15/20 14:23:00 EDT, Height, 84.8, kg, 06/25/20 20:28:00 EDT, Dry Weight Start Date: 10/29/20 Status: Ordered Lantus 100 u/ml subcutaneous solution = 40 units, Subcutaneous Injection, Daily, # 12 mL, 11 Refills, Maintenance, 05/07/20 13:24:00 EST,Solution, [facility]/pharmacy #[id number], increased dose 12/26/19, 162, cm, 04/21/20 [...] 05/07/20 13:30:00 EST, Route to Pharmacy Electronically, [facility]/pharmacy #[id number], 162, cm, 04/21/20 11:33:00 EST, Height, 80, kg, 04/18/20 9:48:00 EST, Dry Weight Start Date: 05/07/20 Status: Ordered loratadine 10 mg oral capsule 1 capsule = 10 mg, By Mouth, Daily, # 40 capsule, 0 Refills, Maintenance, 08/15/20 15:59:00 EDT, Capsule, [facility]/pharmacy #[id number], Partial fill upon patient request if the prescription is for a schedule II opioid drug., 163, cm, 08/15/20 14:23:00 EDT, Heig... Start Date: 08/15/20 Status: Ordered Mapap 325 mg oral tablet 2 tablet = 650 mg, By Mouth, Every 4 hours, PRN for pain, not to exceed 3000 mg/day. instructions in moroccan, # 120 tablet, 2 Refills, Maintenance, 11/01/19 [...] 2 Refills, Maintenance, 04/05/20 14:08:00 EST, Tablet, [facility]/pharmacy #[id number], Partial fill upon patient request if the prescription is for a schedule II opioid drug., 162.56, cm, ... Start Date: 04/05/20 Status: Ordered omeprazole 40 mg oral enteric coated capsule 1 capsule = 40 mg, By Mouth, Daily, # 90 capsule, 0 Refills, Maintenance, 08/13/20 10:34:00 EDT, ECCapsule, [facility]/pharmacy #[id number], 163, cm, 08/09/20 8:45:00 EDT, [...] day, for 28 days, on contract at [facility], # 56 tablet, 0 Refills, Acute 12/26/20 13:59:00 EDT, 11/28/20 13:59:00 EDT, [facility]/pharmacy #[id number], Partial fill upon patient request if the prescription is for a schedule II opi... Start Date: 11/28/20 Stop Date: 12/26/20 Status: Ordered prazosin 2 mg oral capsule TAKE 1 CAPSULE BY MOUTH EVERYDAY AT BEDTIME Start Date: 08/09/20 Status: Ordered Senna 8.6 mg oral tablet 8.6 mg, 1, tablet, By Mouth, Daily at bedtime, # 100 tablet, Refills 11, Tot. Refills 11, Maintenance, 10/30/20 11:37:00 EDT, Route to Pharmacy Electronically, [facility]/pharmacy #[id number], 163, cm, 08/15/20 14:23:00 EDT, Height, 84.8, kg, 06/25/20 20:28:00 EDT... Start Date: 10/30/20 Status: Ordered Soma 350 mg oral tablet 350 mg, 1, tablet, By Mouth, 3 times a day, # 9 tablet, Refills 0, Tot. Refills 0, Maintenance, 05/04/20 15:46:00 EST, Route to Pharmacy Electronically, [facility]/pharmacy #[id number], Partial fill upon patient request if the prescription is for a schedule II opi... Start Date: 05/04/20 Status: Ordered Spiriva Respimat 60 ACT 2.5 mcg/inh inhalation aerosol 2 puffs, Inhalation, Daily, # 1 each, 11 Refills, Maintenance, 04/05/20 14:17:00 EST, [facility]/pharmacy #[id number], Partial fill upon [...] 08/16/20 11:59:00 EDT, Route to Pharmacy Electronically, [facility]/pharmacy #[id number], 163, cm, 08/15/20 14:23:00 EDT, Height, 84.8, kg, 06/25/20 20:28:00... Start Date: 08/16/20 Stop Date: 10/11/20 Status: Ordered Trulicity Pen 0.75 mg/0.5 mL subcutaneous solution 0.5 mL = 0.75 mg, Subcutaneous Injection, Every week, rotate injection sites, # 2 mL, 5 Refills, Maintenance, 10/31/20 15:27:00 EDT, Solution, [facility]/pharmacy #[id number], Partial fill upon patient request ifthe [...]
--- OUTSIDE RECORDS SUMMARY | 2023-03-25 08:27 | XMS_ITS | Continuity of Care Document ---
Author Name Unknown Organization [facility] Address [address] [place] [address]- Care Team Providers Care Manager Of Business Name Role Phone Richardson SCIENTIST PROPAGATOR, Leonora Pérez Primary Care Physician [phone] Encounter [facility] Date(s): 06/23/22 - 07/23/22 [facility] [address] [place] [address]- Allergies, Adverse Reactions, Alerts Substance Reaction Severity Status morphine Active gabapentin swelling Active Lyrica dysphagia Active SEROquel body swelling - all over Act tony MetFORMIN Hydrochloride ER black tarry stool Active Immunizations Given and Recorded Vaccine Date Status Refusal Reason [id number] 12y+ bivalent booster vax 01/30/22 Given influenza virus vaccine, inactivated 01/30/22 Give n influenza virus vaccine, inactivated 02/04/21 Give n influenza virus vaccine, inactivated 1 04/19/20 Gi tonio influenza virus vaccine, inactivated 03/12/19 Give n influenza virus vaccine, inactivated 01/19/18 Give n influenza virus vaccine, inactivated 02/16/17 Give n pneumococcal 20-valent conjugate vaccine 12/26/21 Given SARS-CoV-2 mRNA ([id number]) vax 05/14/21 Given SARS-CoV-2 (COVID-19) mRNA [id number] [...] 10/22/21 9:23:00 EDT, Route to Pharmacy Electronically, [facility], Partial fill uponpatient request if the [...] tablet, 5 Refills, Maintenance, 04/03/22 11:25:00 EST, [facility], 163, cm, 02/11/22 19:19:00 EST, [...] 11 Refills, Maintenance, 02/21/22 10:35:00 EST, Tablet, [facility] Partial fill upon patient request if the prescription is for a schedule II opioid drug., 2 tablet By... Start Date: 02/21/22 Status: Ordered duloxetine 60 mg oral enteric coated capsule 2 capsule = 120 mg, By Mouth, Daily, # 60 capsule, 5 Refills, Maintenance, 05/26/22 17:03:00 EST, Capsule, [facility] Partial fill upon patient request. NOT INCREASED DOSE. Please cancel all other Duloxetine scripts, 163, cm, 05/19/22... Start Date: 05/26/22 Status: Ordered empagliflozin 10 mg oral tablet 1 tablet = 10 mg, By Mouth, Daily in AM, # 30 tablet, 5 Refills, Maintenance, 02/20/22 12:04:00 EST, Tablet, [facility] Partial fill upon patient request if the prescription is for aschedule II opioid drug., 163, cm, 02/11/22 19:19:0... Start Date: 02/20/22 Status: Ordered fluticasone 50 mcg/inh nasal spray See Instructions, USE 1 SPRAY IN BOTH NOSTRILS 2 TIMES A DAY, # 16 mL, 1 Refills, 07/08/21 9:44:00 EDT, [facility] 30, USE 1 SPRAY IN BOTH NOSTRILS 2 TIMES A DAY, 162.5, cm, 228:49:00 EDT, Height, 85.8, kg, 06/04/21 10:03:00 ES... Start Date: 07/08/21 Status: Ordered ibuprofen 800 mg oral tablet 1, tablet, By Mouth, 3 times a day, PRN, # 90 tablet, Refills 1, Tot. Refills 1, Maintenance, NEEDED FOR PAIN, 07/11/22 15:09:00 EDT, Route to Pharmacy Electronically, [facility] 163, cm, 07/11/22 14:19:00 EDT, Height, 83, kg, 11/0... Start Date: 07/11/22 Status: Ordered Januvia 100 mg oral tablet 1 tablet = 100 mg, By Mouth, Daily, # 90 tablet, 3 Refills, Maintenance, 06/18/21 21:04:00 EDT, Tablet, [facility]., 162.5, cm, 06/17/21 13:04:00 EDT, Height, 85.8, kg, 06/04/21 10:03:00 EST, Dry Weight Start Date: 06/18/21 Status: Ordered Lantus 100 u/ml subcutaneous solution = 50 units, Subcutaneous Injection, Daily, # 15 mL, 2 Refills, Maintenance, 01/06/22 12:07:00 EDT, Solution, [facility], ;, 163, cm, 01/03/22 11:20:00 EDT, Height, 84, kg, 01/02/22 19:36:00 EDT, Dry Weight Start Date: 01/06/22 Status: Ordered lidocaine 5% topical film 1 patch, Topically, Daily, PRN Pain , Mild, remove after 12 hours, # 13 each, 5 Refills, Maintenance, 04/29/22 11:56:00 EST, Film, [facility], Partial fill upon patient request if theprescription is for a schedule II opioid drug., 1 p... Start Date: 04/29/22 Status: Ordered lisinopril 20 mg oral tablet 20 mg, 1, tablet, By Mouth, Daily, # 90 tablet, Refills 3, Tot. Refills 3, Maintenance, 08/28/21 9:07:00 EDT, Route to Pharmacy Electronically, [facility]., 162, cm, 08/22/21 9:46:00 EDT, [...] PRN NEEDED, # 30 capsule, 2 Refills, [facility], 162, cm, 09/06/21 13:04:00 EDT, Height, 86, kg, 07/23/21 0:58:00 EDT, Dry Weight Start Date: 10/02/21 Status: Ordered oxyCODONE 15 mg oral tablet 1 tablet = 15 mg, By Mouth, 3 times a day, on contract at [facility], # 84 tablet, 0 Refills, Maintenance, 07/22/22 9:08:00 EDT, [facility], Partial fill upon [...] 07/08/21 9:39:00 EDT, Route to Pharmacy Electronically, [facility], 162.5, cm, 07/08/21 8:49:00 EDT, Height, 85.8, kg, 06/04/21 10:0... Start Date: 07/08/21 Status: Ordered tiZANidine 4 mg oral capsule See Instructions, PRN Pain , Severe, take as little as possible to control pain not to exceed 3 doses/day, # 60 capsule, 0 Refills, Maintenance, 06/24/22 13:18:00 EDT, [facility]., 163, cm, 05/19/22 15:33:00 EST, Height, 83, kg, ... Start Date: 06/24/22 Status: Ordered traZODone 50 mg oral tablet See Instructions, 1/2- 1 tablet By Mouth Daily at bedtime, # 30 each, Refills 1, Tot. Refills 1, Maintenance, 06/30/22 14:07:00 EDT, Instructions Replace Required Details, [facility]... Start Date: 06/30/22 Status: Ordered Trulicity Pen 3 mg/0.5 mL subcutaneous solution See Instructions, INJECT 0.5 ML SUBCUTANEOUSLY EVERY WEEK. ROTATE INJECTION SITES, # 2 mL, 5 Refills, Maintenance, 02/05/22 19:58:00 EDT, [facility], 163, cm, 02/05/22 11:00:00 EDT, [...] Confirmed Active Panic attacks Confirmed Active N/CP Advanced Registered Nurse Charlene Fabian [phone] Confirmed Active Syncope and collapse Confirmed Active [...] Team Personnel Name: Sindy Bernal RN Position: [facility] RN Member Role: Primary Care Nurse Name: Graciela Thrasher RN Position: [facility] RN Member Role: Primary Care Nurse Name: Stevie Angel RN Position: [facility] RN Member Role: Primary Care Nurse Name: Leonora Bai NP Position: [facility] PCO Associate Professional Member Role: PCP Address: Address: [address] [place] [address] [place] [address]- Name: Keily Ortega RN Position: [facility] RN Member Role: Primary Care Nurse Name: Graciela Munroe RN Position: [facility] RN Member Role: Primary Care Nurse Name: Nichole Pichardo RN Position: [facility] RN Member Role: Primary Care Nurse Name: Melvin Whitfield RN Position: [facility] PCO RN Member Role: Primary Care Nurse Name: Phuong Berkowitz RN Position: [facility] RN Member Role: Primary Care Nurse Name: Joselyn Rain RN Position: [facility] Grappler Member Role: Primary Care Nurse Care Team Related Persons Name: IRA ROMERO Address: home [address] [place] [address] Name: JHON LARSON Address: home [address] [place] [address] Name: JHON LARSON Address: [address] [place] [address] Name: GALO CATALAN Name: NANCY CATALAN Address: home [address] [place] [address]
--- OUTSIDE RECORDS SUMMARY | 2023-03-25 08:27 | XMS_ITS | Continuity of Care Document ---
Author Name Unknown Organization [facility] Address [address] [place] [address]- Care Team Providers Care Riveter Portable Machine Name Role Phone Richardson JUNIOR LINUX SYSTEMS ADMINISTRATOR, Leonora Pérez Primary Care Physician [phone] Encounter [facility] Date(s): 08/27/20 - 09/26/20 [facility] [address] [place] [address]- Allergies, Adverse Reactions, Alerts Substance Reaction Severity [...] 14:12:00 EST, Powder, Route to Pharmacy Electronically, [id number], [facility]/pharmacy #[id number], 162.56, [...] 16 mL, 1 Refills, Maintenance, [id number], 30, USE 1 SPRAY IN BOTH NOSTRILS [...] Refills, Maintenance, 08/27/20 11:00:00 EDT, Tablet, [facility]/pharmacy #[id number], 163, cm, 08/15/20 14:23:00 EDT, Height, 84.8, kg, 06/25/20 20:28:00 EDT, Dry Weight Start Date: 08/27/20 Status: Ordered Lantus 100 u/ml subcutaneous solution = 40 units, Subcutaneous Injection, Daily, # 12 mL, 11 Refills, Maintenance, 05/07/20 13:24:00 EST,Solution, [facility]/pharmacy #[id number], increased dose 12/26/19, 162, cm, [...] 08/15/20 15:59:00 EDT, Capsule, [facility]/pharmacy #[id number], Partial fill upon patient request if the prescription is for a schedule II opioid drug., 163, cm, 08/15/20 14:23:00 EDT, [place]... Start Date: 08/15/20 Status: Ordered Mapap 325 mg oral tablet 2 tablet = 650 mg, By Mouth, Every 4 hours, PRN for pain, not to exceed 3000 mg/day. instructions in [place], # 120 tablet, 2 Refills, Maintenance, [...] 0 Refills, Maintenance, 08/13/20 10:34:00 EDT, ECCapsule, [facility]/pharmacy #[id number], 163, cm, 08/09/20 8:45:00 EDT, [...] 12:46:00 EST, Route to Pharmacy Electronically, [facility]/pharmacy #[id number], 162, cm, 05/24/20 9:01:00 EST, [...] 11:59:00 EDT, Route to Pharmacy Electronically, [facility]/pharmacy #[id number], 163, cm, 08/15/20 14:23:00 EDT, [...] 2seen on CT Abd 09/18/16 at [facility] [place], pending MRI 3urge and stress Social History Social History Type Response Tobacco Use: Pt states she q uit smoking 1 week ago. Sex
--- OUTSIDE RECORDS SUMMARY | 2023-03-25 08:27 | XMS_ITS | Continuity of Care Document ---
Author Name Unknown Organization [facility] Address [address] [place] [address]- Care Team Providers Care Reliability Engineer Name Role Phone Richardson QUIROZ, Leonora Pérez Primary Care Physician Encounter [facility] R [id number] Date(s): 08/10/20 - 10/21/20 [facility] [address] [place], [place] [address] Attending Physician: Richardson QUIROZ, Leonora Pérez Admitting Physician: Richardson QUIROZ, Leonora Pérez Allergies, Adverse [...] 14:12:00 EST, Powder, Route to Pharmacy Electronically, [id number], [id number], 162.56, cm, 03/27/20 11:36:00... Start Date: 04/05/20 Status: Ordered albuterol 0.083% inhalation solution 3 mL = 2.5 mg, Inhalation, Every 4 hours, PRN for wheezing, # 100 each, 2 Refills, Maintenance, 08/15/20 10:22:00 EDT, Solution, [facility]/pharmacy #[id number], 163, cm, 08/09/20 8:45:00 EDT, Height, 84.8, kg, 06/25/20 20:28:00 EDT, Dry Weight Start Date: 08/15/20 Status: Ordered amitriptyline 75 mg oral tablet 1 tablet = 75 mg, By Mouth, Daily at bedtime, # 30 tablet, 5 Refills, Maintenance, 08/16/20 11:58:00 EDT, Tablet, [facility]/pharmacy #[id number], Partial fill upon patient request if the prescription is for a schedule II opioid drug. INSTEAD OF 50mg SCRIPT PLEASE... Start Date: 08/16/20 Status: Ordered atorvastatin 20 mg oral tablet 1 tablet = 20 mg, By Mouth, Daily, # 90 tablet, 3 Refills, Maintenance, 04/05/20 14:11:00 EST, Tablet, [facility]/pharmacy #[id number], Partial fill upon patient request [...] Refills, Maintenance, 06/20/20 13:18:00 EDT, Tablet, [facility]/pharmacy #[id number], 162, cm, 05/24/20 9:01:00 EST, Height, 80, kg, 04/18/20 9:48:00 EST, Dry Weight Start Date: 06/20/20 Status: Ordered clonazePAM 0.5 mg oral tablet TAKE 1 TABLET BY MOUTH TWICE A DAY NEEDED Start Date: 06/02/19 Status: Ordered clotrimazole 1% topical cream 1 application, Topically, 2 times a day, # 30 Gm, 1 Refills, Maintenance, 07/30/20 19:49:00 EDT, Cream, [facility]/pharmacy #[id number], 1 application Topically 2 times [...] 16 mL, 1 Refills, Maintenance, [id number], 30, USE 1 SPRAY IN BOTH NOSTRILS 2 TIMES A DAY, 163, cm, 08/15/20 14:23:00 EDT, Height,84.8, kg, 06/25/20 20:28:00 EDT, Dry Weight Start Date: 09/07/20 Status: Ordered hydrochlorothiazide 12.5 mg oral tablet 1 tablet = 12.5 mg, By Mouth, Daily, # 90 tablet, 3 Refills, Maintenance, 01/19/20 10:28:00 EDT, Tablet, [facility]/pharmacy #[id number], 163, cm, 12/26/19 13:58:00 EDT, Height, 80, kg, 10/29/19 0:29:00 EDT, Dry Weight Start Date: 01/19/20 Status: Ordered Januvia 100 mg oral tablet 1 tablet = 100 mg, By Mouth, Daily, # 30 tablet, 2 Refills, Maintenance, 08/27/20 11:00:00 EDT, Tablet, [facility]/pharmacy #[id number], 163, cm, 08/15/20 14:23:00 EDT, Height, 84.8, kg, 06/25/20 20:28:00 EDT, Dry Weight Start Date: 08/27/20 Status: Ordered Lantus 100 u/ml subcutaneous solution = 40 units, Subcutaneous Injection, Daily, # 12 mL, 11 Refills, Maintenance, 05/07/20 13:24:00 EST,Solution, [facility]/pharmacy #[id number], increased dose 12/26/19, 162, cm, 04/21/20 11:33:00 EST, Height, 80, kg, 04/18/20 9:48:00 EST, Dry Weight Start Date: 05/07/20 Status: Ordered lidocaine 5% topical film 1 patch, Topically, Daily, For chronic radicular back pain, # 30 patch, 5 Refills, Maintenance, 10/11/20 8:15:00 EDT, [facility]/pharmacy #[id number], 1 patch Topically Daily,Instr:For chronic radicular back pain, 163, cm, 08/15/20 14:23:00 EDT, Height, 84.8, kg,... Start Date: 10/11/20 Status: Ordered lisinopril 20 mg oral tablet 20 mg, 1, tablet, By Mouth, Daily, # 30 tablet, Refills 11, Tot. Refills 11, Maintenance, 05/07/20 13:30:00 EST, Route to Pharmacy Electronically, [facility]/pharmacy #[id number], 162, cm, 04/21/20 11:33:00 EST, [...] not to exceed 3000 mg/day. instructions in cypriot, # 120 tablet, 2 Refills, Maintenance, 11/01/19 [...] CENTER, # 56 tablet, 0 Refills, Acute 10/25/20 15:14:00 EDT, 09/27/20 15:14:00 EDT, [facility]/pharmacy #[id number], Partial fill upon patient request [...] EST, Route to Pharmacy Electronically, [facility]/pharmacy #[id number], 162, cm, 05/24/20 9:01:00 EST, Height, 80, kg, 04/18/20 9:48:00 EST, Dry... Start Date: 06/04/20 Status: Ordered Soma 350 mg oral tablet 350 mg, 1, tablet, By Mouth, 3 times a day, # 9 tablet, Refills 0, Tot. Refills 0, Maintenance, 05/04/20 15:46:00 EST, Route to Pharmacy Electronically, [facility]/pharmacy #[id number], Partial fill upon patient request [...] EDT, Route to Pharmacy Electronically, [facility]/pharmacy #[id number], 163, cm, 08/15/20 14:23:00 EDT, [...]
--- OUTSIDE RECORDS SUMMARY | 2023-03-25 08:27 | XMS_ITS | Continuity of Care Document ---
Author Name Unknown Organization [facility] Address [address] [place] [address]- Care Team Providers Care Can Filling And Closing Machine Tender Name Role Phone Richardson QUIROZ, Leonora Pérez Primary Care Physician Encounter [facility] Date(s): 05/15/21 - 06/14/21 [facility] [address] [place], [place] [address] Allergies, Adverse Reactions, Alerts Substance Reaction Severity Status morphine Active gabapentin swelling Active Lyrica dysphagia Active SEROquel body swelling - all over Act tony MetFORMIN Hydrochloride ER black tarry stool Active Immunizations Given and Recorded Vaccine Date Status Refusal Reason SARS-CoV-2 mRNA ([id number]) vax 05/14/21 Given influenza virus vaccine, inactivated [...] 05/31/21 15:43:00 EST, Route to Pharmacy Electronically, [facility], Partial fill upon patient request if the prescription is for a sched... Start Date: 05/31/21 Status: Ordered Advair Diskus 500 mcg-50 mcg inhalation powder 1, puffs, Inhalation, 2 times a day, j45.909, # 1 each, Refills 5, Tot. Refills 5, Maintenance, 05/15/21 9:20:00 EST, Powder, Route to Pharmacy Electronically, [id number], [facility], 162.5, cm, 05/10/21 14:47... Start Date: 05/15/21 Status: Ordered albuterol 0.083% inhalation solution 3 mL = 2.5 mg, Inhalation, Every 4 hours, PRN for wheezing, # 100 each, 2 Refills, Maintenance, 05/15/21 9:30:00 EST, Solution, [facility], 162.5, cm, 05/10/21 14:47:00 EST, Height, 90.9, kg, 02/02/21 5:59:00 EDT, Dry Weight Start Date: 05/15/21 Status: Ordered amitriptyline 75 mg oral tablet 1 tablet = 75 mg, By Mouth, Daily at bedtime, # 90 tablet, 1 Refills, Maintenance, 05/07/21 10:21:00 EST, Tablet, [facility], Partial fill upon patient request if the prescription is for a schedule II opioid drug., 162.5, cm, 03/22/21... Start Date: 05/07/21 Status: Ordered atorvastatin 20 mg oral tablet 3 tablet = 60 mg, By Mouth, Daily, # 90 tablet, 3 Refills, Maintenance, 04/05/20 14:11:00 EST, Tablet, [facility]/pharmacy #[id number], Partial fill upon patient request if the prescription is for a schedule II opioid drug., 162.56, cm, 03/27/20 11:36:00 EST, Heig... Start Date: 04/05/20 Status: Ordered capsaicin 0.025% topical cream 1 application, Topically, 3 times a day, # 45 Gm, 3 Refills, Maintenance, 11/01/19 15:25:00 EDT, Cream, [facility]/pharmacy #[id number], 1 application Topically 3 times a day, 163, cm, 11/01/19 14:40:00 EDT, Height, 80, kg, 10/29/19 0:29:00 EDT, Dry Weight Start Date: 11/01/19 Status: Ordered cetirizine 10 mg oral tablet 1 tablet = 10 mg, By Mouth, Daily, # 30 tablet, 5 Refills, Maintenance, 06/20/20 13:18:00 EDT, Tablet, [facility]/pharmacy #[id number], 162, cm, 05/24/20 9:01:00 EST, Height, [...] Refills, Maintenance, 12/05/20 12:42:00 EDT, Cream, [facility]/pharmacy #[id number], 1 application Topically 2 times a [...] Refills, Maintenance, 02/18/21 15:09:00 EST, Capsule, [facility]/pharmacy #[id number], Partial fill upon patient request. NOT [...] # 16 mL, 1 Refills, Maintenance, [id number], 30, USE 1 SPRAY IN BOTH NOSTRILS 2 TIMES A DAY, 163, cm, 08/15/20 14:23:00 EDT, Height,84.8, kg, 06/25/20 20:28:00 EDT, Dry Weight Start Date: 09/07/20 Status: Ordered hydrochlorothiazide 12.5 mg oral tablet 1 tablet = 12.5 mg, By Mouth, Daily, TAKE 1 TABLET BY MOUTH EVERY DAY, # 30 capsule, 2 Refills, Maintenance, 05/15/21 9:20:00 EST, [facility], 162.5, cm, 05/10/21 14:47:00 EST, Height, [...] Moderate, 06/05/21 15:55:00 EST,Route to Pharmacy Electronically, [facility]... Start Date: 06/05/21 Stop Date: [...] 2 Refills, Maintenance, 03/01/21 12:42:00 EST, Tablet, [facility]/pharmacy #[id number], 155, cm, 02/18/21 14:54:00 EST, Height, 90.9, kg, 02/02/21 5:59:00 EDT, DryWeight Start Date: 03/01/21 Status: Ordered Lantus 100 u/ml subcutaneous solution = 40 units, Subcutaneous Injection, Daily, # 12 mL, 2 Refills, Maintenance, 03/01/21 12:42:00 EST, Solution, [facility]/pharmacy #[id number], increased dose 12/26/19, 155, cm, 02/18/21 [...] 13:24:00 EST, Route to Pharmacy Electronically, [facility]/pharmacy #[id number], 162.5, cm, 03/22/21 14:58:00 EST, Height, 90.9, kg, 02/02/21 5:59:00 EDT, Dry Weight Start Date: 04/12/21 Status: Ordered loratadine 10 mg oral capsule 1 capsule = 10 mg, By Mouth, Daily, # 40 capsule, 0 Refills, Maintenance, 08/15/20 15:59:00 EDT, Capsule, [facility]/pharmacy [...] Maintenance, 12/31/20 15:58:00 EDT, ER Tablet, [facility] [...] Refills, Maintenance, 05/09/21 10:45:00 EST, EC Capsule, [facility]., 162.5, cm, 03/22/21 14:58:00 EST, Height, 90.9,kg, 02/02/21 5:59:00 EDT, Dry Weight Start Date: 05/09/21 Status: Ordered oxyCODONE 15 mg oral tablet 1 tablet = 15 mg, By Mouth, 3 times a day, for 28 days, MASSPAT CHECKED PT ON CONTRACT AT [facility], # 84 tablet, 0 Refills, Acute 07/11/21 16:22:00 EDT, 03/10/22 16:22:00 EST, [facility]., 162.5, cm, 06/06/21 9:12:00 EST, Height... [...] 04/24/21 8:58:00 EST, Route to Pharmacy Electronically, [facility], 162.5, cm, 03/22/21 14:58:00 EST, Height, 90.9, kg, 02/02/21... Start Date: 04/24/21 Stop Date: 06/19/21 Status: Ordered Trulicity Pen 1.5 mg/0.5 mL subcutaneous solution 0.5 mL = 1.5 mg, Subcutaneous Injection, Every week, # 2.5 mL, 11 Refills, Maintenance, 04/30/21 12:00:00 EST, [facility] upon patient [...] on CPAP(Confirmed) Active Panic attacks(Confirmed) Active BHN/BHCP Forest Supervisor Jb Fabian [phone](Confirmed) Active Syncope and collapse(Confirmed) Active Tobacco dependence(Confirmed) Active DM2 (diabetes mellitus, type 2)(Confirmed) 04/03/17 Active Incontinence of urine(Confirmed) 3 Active 1seen on MRI 10/2016, rec repeat imaging in October [address] Abd 09/18/16 at [facility] [place], pending MRI 3urge and stress Social History Social History Type Response Smoking Status Current every day kaitlin valle; Type: Cigarettes; Tobacco use times per day: 1/2 ppd; entered on: 12/24/17 Sex
--- OUTSIDE RECORDS SUMMARY | 2023-03-25 08:27 | XMS_ITS | Continuity of Care Document ---
Author Name Unknown Organization [facility] Address [address] [place] [id number]- Care Team Providers Care Speedometer Inspector Name Role Phone Richardson PROCESS LINE OPERATOR, Leonora Pérez Primary Care Physician [phone] Encounter [facility] Date(s): 06/06/22 - 07/06/22 [facility] [address] [place] [id number] Attending Physician: Clarence Reynaga Admitting Physician: Clarence Reynaga Referring Physician: AdmtrClarence Allergies, Adverse Reactions, Alerts Substance Reaction Severity Status morphine Active gabapentin swelling Active Lyrica dysphagia Active SEROquel body swelling - all over Act tony MetFORMIN Hydrochloride ER black tarry stool Active Immunizations Given and Recorded Vaccine Date Status Refusal Reason [id number] 12y+ bivalent booster vax 01/30/22 Given influenza virus vaccine, inactivated 01/30/22 Give n influenza virus vaccine, inactivated 02/04/21 Give n influenza virus vaccine, inactivated 1 04/19/20 Gi tonio influenza virus vaccine, inactivated 03/12/19 Give n influenza virus vaccine, inactivated 01/19/18 Give n influenza virus vaccine, inactivated 02/16/17 Give n pneumococcal 20-valent conjugate vaccine 12/26/21 Given SARS-CoV-2 mRNA ([id number]) vax 05/14/21 Given SARS-CoV-2 (COVID-19) mRNA BNT-162b2 [...] 10/22/21 9:23:00 EDT, Route to Pharmacy Electronically, [facility], Partial fill uponpatient request if the [...] tablet, 5 Refills, Maintenance, 04/03/22 11:25:00 EST, [facility], 163, cm, 02/11/22 19:19:00 EST, Height, 83, kg, 02/11/22 19:19:00 EST, Dry Weight Start Date: 04/03/22 Status: Ordered amLODIPine 5 mg oral tablet 5 mg, 1, tablet, By Mouth, Daily, # 90 tablet, Refills 3, Tot. Refills 3, Maintenance, 04/29/22 11:56:00 EST, Route to Pharmacy Electronically, [facility], Partial fill upon patient request if [...] 11 Refills, Maintenance, 02/21/22 10:35:00 EST, Tablet, [facility] Partial fill upon patient request if the prescription is for a schedule II opioid drug., 2 tablet By... Start Date: 02/21/22 Status: Ordered duloxetine 60 mg oral enteric coated capsule 2 capsule = 120 mg, By Mouth, Daily, # 60 capsule, 5 Refills, Maintenance, 05/26/22 17:03:00 EST, Capsule, [facility] Partial fill upon patient request. NOT INCREASED DOSE. Please cancel all other Duloxetine scripts, 163, cm, 05/19/22... Start Date: 05/26/22 Status: Ordered empagliflozin 10 mg oral tablet 1 tablet = 10 mg, By Mouth, Daily in AM, # 30 tablet, 5 Refills, Maintenance, 02/20/22 12:04:00 EST, Tablet, [facility] Partial fill upon patient request if the prescription is for aschedule II opioid drug., 163, cm, 02/11/22 19:19:0... Start Date: 02/20/22 Status: Ordered fluticasone 50 mcg/inh nasal spray See Instructions, USE 1 SPRAY IN BOTH NOSTRILS 2 TIMES A DAY, # 16 mL, 1 Refills, 07/08/21 9:44:00 EDT, [facility] 30, USE 1 SPRAY IN BOTH NOSTRILS 2 TIMES A DAY, 162.5, cm, 228:49:00 EDT, Height, 85.8, kg, 06/04/21 10:03:00 ES... Start Date: 07/08/21 Status: Ordered ibuprofen 800 mg oral tablet 1, tablet, By Mouth, 3 times a day, PRN, # 90 tablet, Refills 1, Tot. Refills 1, Maintenance, NEEDED FOR PAIN, 06/23/22 9:42:00 EDT, Route to Pharmacy Electronically, [facility], 163, cm, 05/19/22 15:33:00 EST, Height, 83, kg, 08... Start Date: 06/23/22 Status: Ordered Januvia 100 mg oral tablet 1 tablet = 100 mg, By Mouth, Daily, # 90 tablet, 3 Refills, Maintenance, 06/18/21 21:04:00 EDT, Tablet, [facility], 162.5, cm, 06/17/21 13:04:00 EDT, Height, 85.8, kg, 06/04/21 10:03:00 EST, Dry Weight Start Date: 06/18/21 Status: Ordered Lantus 100 u/ml subcutaneous solution = 50 units, Subcutaneous Injection, Daily, # 15 mL, 2 Refills, Maintenance, 01/06/22 12:07:00 EDT, Solution, [facility], ;, 163, cm, 01/03/22 11:20:00 EDT, Height, 84, kg, 01/02/22 19:36:00 EDT, Dry Weight Start Date: 01/06/22 Status: Ordered lidocaine 5% topical film 1 patch, Topically, Daily, PRN Pain , Mild, remove after 12 hours, # 13 each, 5 Refills, Maintenance, 04/29/22 11:56:00 EST, Film, [facility], Partial fill upon patient request if theprescription is for a schedule II opioid drug., 1 p... Start Date: 04/29/22 Status: Ordered lisinopril 20 mg oral tablet 20 mg, 1, tablet, By Mouth, Daily, # 90 tablet, Refills 3, Tot. Refills 3, Maintenance, 08/28/21 9:07:00 EDT, Route to Pharmacy Electronically, [facility], 162, cm, 08/22/21 9:46:00 EDT, Height, [...] 3 times a day, on contract at [facility], # 84 tablet, 0 Refills, Maintenance, 06/24/22 13:16:00 EDT, [facility], Partial fill upon patient request if [...] 07/08/21 9:39:00 EDT, Route to Pharmacy Electronically, [facility], 162.5, cm, 07/08/21 8:49:00 EDT, Height, 85.8, kg, 06/04/21 10:0... Start Date: 07/08/21 Status: Ordered tiZANidine 4 mg oral capsule See Instructions, PRN Pain , Severe, take as little as possible to control pain not to exceed 3 doses/day, # 60 capsule, 0 Refills, Maintenance, 06/24/22 13:18:00 EDT, [facility], 163, cm, 05/19/22 15:33:00 EST, Height, 83, kg, 11/08/... Start Date: 06/24/22 Status: Ordered traZODone 50 mg oral tablet See Instructions, 1/2- 1 tablet By Mouth Daily at bedtime, # 30 each, Refills 1, Tot. Refills 1, Maintenance, 06/30/22 14:07:00 EDT, Instructions Replace Required Details, [facility]... Start Date: 06/30/22 Status: Ordered Trulicity Pen 3 mg/0.5 mL subcutaneous solution See Instructions, INJECT 0.5 ML SUBCUTANEOUSLY EVERY WEEK. ROTATE INJECTION SITES, # 2 mL, 5 Refills, Maintenance, 02/05/22 19:58:00 EDT, [facility], 163, cm, 02/05/22 11:00:00 EDT, Height,84, [...] Confirmed Active Panic attacks Confirmed Active BHN/BHCP Winder Fixer Charlene Fabian [phone] Confirmed Active Syncope and collapse Confirmed Active [...] Care Nurse Name: Graciela Thrasher RN Position: [facility] RN Member Role: Primary Care Nurse Name: Stevie Angel RN Position: [facility] RN Member Role: Primary Care Nurse Name: Richardson QUIROZ, Leonora Pérez Position: [facility] PCO Associate Professional Member Role: PCP Address: Address: [address] [place] [id number]- Name: Keily Ortega RN Position: [facility] RN Member Role: Primary Care Nurse Name: Graciela Munroe RN Position: [facility] RN Member Role: Primary Care Nurse Name: Nichole Pichardo RN Position: [facility] RN Member Role: Primary Care Nurse Name: Melvin Whitfield RN Position: [facility] PCO RN Member Role: Primary Care Nurse Name: Phuong Berkowitz RN Position: [facility] RN Member Role: Primary Care Nurse Name: Joselyn Rain RN Position: [facility] Mk 2 Advanced Operator Member Role: Primary Care Nurse Care Team Related Persons Name: IRA ROMERO Address: home [address] [place] [address] Name: JHON LARSON Address: [address] [place] [address] Name: JHON LARSON Address: [address] [place] [address] Name: GALO CATALAN Name: NANCY CATALAN Address: home [address] [place] [address]
--- OUTSIDE RECORDS SUMMARY | 2023-03-25 08:27 | XMS_ITS | Continuity of Care Document ---
Author Name Unknown Organization [facility] Address [address] [place] [address]- Care Team Providers Care Planting Material Carrier Name Role Phone Aaron GERARDO, Pura Mahajan Primary Care Physician Encounter [facility] Date(s): 01/16/23 - 02/15/23 [facility] [address] [place] [address]- Allergies, Adverse Reactions, Alerts Substance Reaction Severity Status morphine Active gabapentin swelling Active Lyrica dysphagia Active SEROquel body swelling - all over Act tony MetFORMIN Hydrochloride ER black tarry stool Active Immunizations Given and Recorded Vaccine Date Status Refusal Reason [id number] 12y+ bivalent booster vax 01/30/22 Given influenza virus vaccine, inactivated 01/30/22 Give n influenza virus vaccine, inactivated 02/04/21 Give n influenza virus vaccine, inactivated 1 04/19/20 Gi tonio influenza virus vaccine, inactivated 03/12/19 Give n influenza virus vaccine, inactivated 01/19/18 Give n influenza virus vaccine, inactivated 02/16/17 Give n pneumococcal 20-valent conjugate vaccine 12/26/21 Given SARS-CoV-2 mRNA ([id number]) vax 05/14/21 Given SARS-CoV-2 (COVID-19) mRNA BNT-162b2 [...] 09/25/22 17:00:00 EDT, Route to Pharmacy Electronically, [facility], Partial fill upon patient request if the prescription is for a sched... Start Date: 09/25/22 Status: Ordered Advair Diskus 500 mcg-50 mcg inhalation powder 1, inhalation, Inhalation, 2 times a day, rinse mouth and throat after use, # 60 each, Refills 11, Tot. Refills 11, Maintenance, 09/25/22 17:00:00 EDT, Inhaler, Route to Pharmacy Electronically, [id number], [facility]... Start Date: 09/25/22 Status: Ordered albuterol 0.083% inhalation solution 3 mL = 2.5 mg, Neb, Every 4 hours, PRN Wheezing/Shortness of Breath, # 100 each, 11 Refills, Maintenance, 12/26/22 8:14:00 EDT, Inhalation Solution, [facility], Partial fill upon patient request if the prescription is for a schedule II... Start Date: 12/26/22 Status: Ordered All Day Allergy 10 mg oral tablet 1 tablet, By Mouth, Daily, # 90 tablet, 3 Refills, Maintenance, 11/20/22 16:48:00 EDT, [facility], 163, cm, 11/20/22 16:00:00 EDT, Height, 83, kg, 02/11/22 19:19:00 EST, Dry Weight Start Date: 11/20/22 Status: Ordered amLODIPine 5 mg oral tablet 5 mg, 1, tablet, By Mouth, Daily, # 90 tablet, Refills 3, Tot. Refills 3, Maintenance, 04/29/22 11:56:00 EST, Route to Pharmacy Electronically, [facility], Partial fill upon patient request if the prescription is for a schedule II opio... Start Date: 04/29/22 Status: Ordered atorvastatin 40 mg oral tablet 1 tablet = 40 mg, By Mouth, Daily, # 90 tablet, 3 Refills, Maintenance, 09/25/22 16:58:00 EDT, Tablet, [facility] Partial fill upon patient request if [...] 2 Refills, Maintenance, 12/26/22 8:13:00 EDT, [facility] 15, APPLY TOPICALLY TO AFFECTED AREA TWO TIMES A DAY FOR TWO WEEKS, 163, cm, ... Start Date: 12/26/22 Status: Ordered docusate-senna 50 mg-187 mg oral tablet 2 tablet, By Mouth, 2 times a day, PRN Constipation, # 100 tablet, 11 Refills, Maintenance, 08/14/22 16:57:00 EDT, Tablet, [facility]., Partial fill upon patient request if [...] 3 Refills, Maintenance, 09/25/22 17:01:00 EDT, Tablet, [facility], Partial fill upon patient request if the prescription is for aschedule II opioid drug., 163, cm, 09/25/22 16:20:0... Start Date: 09/25/22 Status: Ordered ibuprofen 800 mg oral tablet 1, tablet, By Mouth, 3 times a day, PRN, # 90 tablet, Refills 1, Tot. Refills 1, Maintenance, NEEDED FOR PAIN, 10/22/22 15:19:00 EDT, Route to Pharmacy Electronically, [facility], 163, cm, 09/25/22 16:20:00 EDT, Height, 83, kg, 11/0... Start Date: 10/22/22 Status: Ordered Januvia 100 mg oral tablet 1 tablet, By Mouth, Daily, # 30 tablet, 11 Refills, Maintenance, 11/26/22 10:02:00 EDT, [facility], 163, cm, 11/20/22 16:00:00 EDT, Height, 83, kg, 02/11/22 19:19:00 EST, Dry Weight Start Date: 11/26/22 Status: Ordered lidocaine 5% topical film 1 patch, Topically, Daily, PRN Pain , Mild, remove after 12 hours, # 13 each, 5 Refills, Maintenance, 09/25/22 16:59:00 EDT, Film, [facility], Partial fill upon patient request if theprescription is for a schedule II opioid drug., 1 p... Start Date: 09/25/22 Status: Ordered lisinopril 20 mg oral tablet 20 mg, 1, tablet, By Mouth, Daily, # 90 tablet, Refills 3, Tot. Refills 3, Maintenance, 11/20/22 16:48:00 EDT, Route to Pharmacy Electronically, [facility], 163, cm, 11/20/22 16:00:00EDT, Height, 83, kg, 02/11/22 19:19:00 EST, Dry Weight Start Date: 11/20/22 Status: Ordered mirtazapine 30 mg oral tablet 1 tablet = 30 mg, By Mouth, Daily at bedtime, # 90 tablet, 1 Refills, Maintenance, 09/25/22 17:00:00 EDT, Tablet, [facility] Partial fill upon patient request if the prescription is for a schedule II opioid drug., 163, cm, 09/25/22 16... Start Date: 09/25/22 Status: Ordered omeprazole 40 mg oral enteric coated capsule 1 capsule, By Mouth, Daily, PRN NEEDED, # 90 capsule, 1 Refills, Maintenance, 11/25/22 10:53:00 EDT, [facility], 163, cm, 11/20/22 16:00:00 EDT, Height, 83, kg, 02/11/22 19:19:00 EST, Dry Weight Start Date: 11/25/22 Status: Ordered oxyCODONE 15 mg oral tablet 1 tablet = 15 mg, By Mouth, Every 8 hours, PRN Pain , Severe, # 84 tablet, 0 Refills, Maintenance, 01/21/23 9:27:00 EDT, [facility]., Partial fill upon patient request if [...] 01/27/23 9:28:00 EDT, Route to Pharmacy Electronically, [facility] 163, cm, 11/20/22 16:00:00 EDT, Height, 83, kg... Start Date: 01/27/23 Status: Ordered traZODone 50 mg oral tablet 1/2 TO 1 TABLET, By Mouth, Daily at bedtime, # 30 tablet, Refills 5, Maintenance, 08/29/22 11:31:00EDT, Route to Pharmacy Electronically, [facility], 163, cm, 08/14/22 16:50:00 EDT, Height, 83, kg, 02/11/22 19:19:00 EST, Dry Weight Start Date: 08/29/22 Status: Ordered triamcinolone 55 mcg/inh nasal spray 1 sprays = 55 mcg, Nares, Both, Daily, # 1 each, 5 Refills, Maintenance, 08/14/22 16:59:00 EDT, [facility], Partial fill upon patient request if the prescription is for a schedule II opioid drug., 1 sprays Nares, Both Daily, 163, cm, 0... 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 Charlene Fabian [phone] Confirmed Active Syncope and collapse Confirmed Active Tobacco dependence Confirmed Active DM2 (diabetes mellitus, type 2) Confirmed 04/03/17 Active Incontinence of urine 5 Confirmed Active 1on polysomnogram 2seen on MRI 10/2016, rec repeat imaging in October 2017 pain managemnt team/ Dr Diop indicated they thought pain was fibromyalgia 4seen on CT Abd 09/18/16 at [facility], pending MRI 5urge and stress Social History Social History Type Response Smoking Status Current every day sm oker; Type: Cigarettes; Tobacco use times per day: 1/2 ppd; entered on: 12/24/17 Sex Patient Care team information Care Team Personnel Name: Sindy Bernal RN Position: [facility] RN Member Role: Primary Care Nurse Name: Graciela Thrasher RN Position: [facility] SN RN Member Role: Primary Care Nurse Name: Stevie Angel RN Position: [facility] RN Member Role: Primary Care Nurse Name: Keily Ortega RN Position: [facility] RN Member Role: Primary Care Nurse Name: Graciela Munroe RN Position: [facility] RN Member Role: Primary Care Nurse Name: Nichole Pichardo RN Position: [facility] RN Member Role: Primary Care Nurse Name: Melvin Whitfield RN Position: [facility] AMB Nurse Member Role: Primary Care Nurse Name: Phuong Berkowitz RN Position: [facility] RN Member Role: Primary Care Nurse Name: Pura Walker MD Position: [facility] Physician - Primary Care Member Role: PCP Address: Address: [address] [place] [id number] Name: Joselyn Rain RN Position: [facility] Hospital System Engineer Member Role: Primary Care Nurse Care Team Related Persons Name: IRA ROMERO Address: home [address] [place] [address] Name: JHON LARSON Address: [address] [place] [address] Name: JHON LARSON Address: [address] [place] [address] Name: GALO CATALAN Name: NANCY CATALAN Address: home [address] [place] [address]
--- OUTSIDE RECORDS SUMMARY | 2023-03-25 08:27 | XMS_ITS | Continuity of Care Document ---
Author Name Unknown Organization [facility] Address [address] [place] [address]- Care Team Providers Care Veterinary Medicine Scientist Name Role Phone Richardson QUIROZ, Leonora Pérez Primary Care Physician Encounter [facility] Date(s): 05/23/19 - 05/24/[address] [address]- [facility] Discharge Disposition: A-D/C Home Attending Physician: Junior GERARDO, Theresa Morin Admitting Physician: Ubaldo Lambert DO Referring Physician: Not on Staff, Referring [...] 12:48:00 EST, Powder, Route to Pharmacy Electronically, [id number], [facility] #[id number], 158, cm, 04/26/19 9:58:00 EST, H... Start Date: 04/27/19 Status: Ordered albuterol 0.083% inhalation solution 3 mL = 2.5 mg, Inhalation, Every 4 hours, PRN for wheezing, # 100 each, 1 Refills, Maintenance, 09/24/19 13:21:26 EDT, Solution Start Date: 12/28/18 Stop [...] USE 1 SPRAY IN BOTH NOSTRILS DAILY, [facility] #[id number] Start Date: 12/01/18 Status: Ordered glipiZIDE [...] Weight Start Date: 04/28/19 Status: Ordered lidocaine 4% topical film 1 patch, Topically, 2 times a day, # 6 each, 0 Refills, Acute 05/26/19 18:40:00 EST, 05/23/19 18:40:00 EST, Film, [facility]/pharmacy #[id number], 1 patch Topically 2 times a day, 160, cm, 05/23/19 18:05:00 EST, Height, 89.2, kg, 05/23/19 18:05:00 EST, Dry Weight Start Date: 05/23/19 Stop Date: 05/26/19 Status: Ordered lisinopril 10 mg oral tablet [...] not to exceed 3000 mg/day. instructions in cambodian, # 120 tablet, 2 Refills, Maintenance, 05/04/19 9:35:00 EST, Tablet, [facility]/pharmacy #[id number], 158, cm, 04/28/19 14:51:00 EST, Height, 82, kg, 03/07... Start Date: 05/04/19 Status: Ordered metFORMIN 750 mg oral tablet, extended release 1 tablet = 750 mg, By Mouth, Daily, # 30 tablet, 6 Refills, Maintenance, 04/04/19 16:29:00 EST, ER Tablet, [facility]/pharmacy #[id number], 158, cm, 04/04/19 [...] pain, for 28 days, on contract at [facility]., # 56 tablet, 0 Refills, Acute 06/01/19 9:36:00 EST, 05/04/19 9:36:00 EST, [facility]/pharmacy #[id number], Partial fill uponpatient request, 158, cm, [...] on CPAP(Confirmed) Active Panic attacks(Confirmed) Active *BHN/BHCP/SARAHarmony Cetawgm-[phone]/Health correction, active care coordination(Confirmed) Active Acute meniscal tear of right knee(Confirmed) 06/2015 Active Tobacco dependence(Confirmed) Active DM2 (diabetes mellitus, type 2)(Confirmed) 04/03/17 Active Incontinence of urine(Confirmed) 7 Active 1surgically repaired November 2015, Dr. Sg MENDEZ 2DJD Lumbar Spine per MRI 3L3-L4 disc herniation per client report 4seen on MRI 10/2016, rec repeat imaging in October [address] Abd 09/18/16 at [facility], pending MRI 6surgically repaired July 2015 Dr. Sg MENDEZ 7urge and stress Vital Signs Most recent to oldest [Reference Range]: 1 2 3 Height 160 cm (05/24/19 4:36 AM) 160 cm (05/23/19 10:09 PM) 160 cm (05/23/19 9:12 PM) Weight 88.9 kg (05/23/19 10:09 PM) 89.2 kg (05/23/19 9:12 PM) 89.2 kg (05/23/19 8:19 PM) Oxygen Saturation [94-100 %] 93 % *L* (05/24/19 4:36 AM) 100 % (05/23/19 10:09 PM) 94 % (05/23/19 9:12 PM) Pulse Rate [55-90 bpm] 87 bpm (05/24/19 4:36 AM) 68 bpm (05/23/19 10:09 PM) 76 bpm (05/23/19 9:12 PM) Body Mass Index [18.5-24.99] 34.73 *>HHI* (05/23/19 10:09 PM) 34.84 *>HHI* (05/23/19 9:12 PM) 34.84 *>HHI* (05/23/19 8:19 PM) Blood Pressure [90-138/55-84 mm Hg] 128/80mm Hg (05/24/19 10:02 AM) 130/82mm Hg (05/24/19 4:36 AM) 118/68mm Hg (05/23/19 10:09 PM) Respiratory Rate [16-30 br/min] 17 br/min (05/24/19 11:02 AM) 18 br/min (05/24/19 10:35 AM) 18 br/min (05/24/19 5:36 AM) Temperature [96.8-100.4 DegF] 97.7 DegF (05/24/19 4:36 AM) 97.7 DegF (05/23/19 10:09 PM) 97.9 DegF (05/23/19 6:50 PM) Mode of Delivery (Oxygen) Room air (05/24/19 4:36 AM) Room air (05/23/19 10:09 PM) Room air (05/23/19 6:50 PM) Blood pressure sites Arm, left (05/24/19 4:36 AM) Arm, left (05/23/19 10:09 PM) Arm, left (05/23/19 6:50 PM) Temperature Route Temporal (05/24/19 4:36 AM) Temporal (05/23/19 10:09 PM) Oral (05/23/19 6:50 PM) Dry Weight 88.9 kg (05/23/19 10:09 PM) 89.2 kg (05/23/19 9:12 PM) 89.2 kg (05/23/19 8:19 PM) Weight Obtained Via Standing scale (05/23/19 10:09 PM) Dry Weight Obtained Via Standing scale (05/23/19 10:09 PM) Bed scale (05/23/19 6:05 PM) Sensory deficits Uncorrected visual impairment (05/23/19 10:09 PM) Mobility assistance Independent (05/23/19 10:09 PM) Social History Social History Type Response Tobacco Use: Pt states she q uit smoking 1 week ago. Sex Female
--- OUTSIDE RECORDS SUMMARY | 2023-03-25 08:27 | XMS_ITS | Continuity of Care Document ---
Author Name Unknown Organization [facility] Address [address] [place] [address]- Care Team Providers Care Financial Economist Name Role Phone Richardson QUIROZ, Leonora Pérez Primary Care Physician [phone] Encounter [facility] Date(s): 12/13/19 - 01/12/20 [facility] [address] [place] [address]- [facility] Attending Physician: AdmClarence brown Admitting Physician: Admtr, [id number] Referring Physician: Admtr, [...] 12:48:00 EST, Powder, Route to Pharmacy Electronically, [id number], [facility]/pharmacy #[id number], 158, cm, 04/26/19 9:58:00 EST, H... Start Date: 04/27/19 Status: Ordered albuterol 0.083% inhalation solution 3 mL = 2.5 mg, Inhalation, Every 4 hours, PRN for wheezing, # 100 each, 5 Refills, Maintenance, 06/27/19 14:32:00 EDT, Solution, [facility] [...] 5 Refills, Maintenance, 12/30/19 18:21:00 EDT, Tablet, [facility] [...] 5 Refills, Maintenance, 12/13/19 18:32:00 EDT, Tablet, [facility]/pharmacy #[id number], 163, cm, 12/13/19 15:57:00 EDT, Height, 80, kg, 10/29/19 0:29:00 EDT, Dry Weight Start Date: 12/13/19 Status: Ordered clonazePAM 0.5 mg oral tablet TAKE 1 TABLET BY MOUTH TWICE A DAY NEEDED Start Date: 06/02/19 Status: Ordered clotrimazole 1% topical cream 1 application, Topically, 2 times a day, # 30 Gm, 1 Refills, Maintenance, 12/15/19 9:12:00 EDT, Cream, [facility] [...] 3 Refills, Maintenance, 12/26/19 14:21:00 EDT, Tablet, [facility] [...] 5 Refills, Maintenance, 12/30/19 18:21:00 EDT, Tablet, [facility]/pharmacy #[id number], 163, cm, 12/26/19 13:58:00 EDT, Height, 80, kg, 10/29/19 0:29:00 EDT, Dry Weight Start Date: 12/30/19 Status: Ordered Lantus 100 u/ml subcutaneous solution = 35 units, Subcutaneous Injection, Daily, # 10 mL, 11 Refills, Maintenance, 12/26/19 14:22:00 EDT,Solution, [facility]/pharmacy #[id number], increased dose 12/26/19, 163, cm, 12/26/19 13:58:00 EDT, Height, 80, kg, 10/29/19 0:29:00 EDT, Dry Weight Start Date: 12/26/19 Status: Ordered lidocaine 5% topical film 1 patch, Topically, Daily, For chronic radicular back pain, # 30 patch, 5 Refills, Maintenance, 06/27/19 14:37:00 EDT, [facility]/pharmacy #[id number], [...] not to exceed 3000 mg/day. instructions in micronesian, # 120 tablet, 2 Refills, Maintenance, 11/01/19 [...] 01/16/20 15:00:00 EDT, 01/11/20 15:00:00 EDT, Capsule, [facility] [...] pain, for 28 days, on contract at [facility]., # 56 tablet, 0 Refills, Acute 01/27/20 17:24:00 EDT, 12/30/19 17:24:00 EDT, [id number], Partial fill upon patient request, 163, cm, 12/26/19 13:58:00 EDT,... Start Date: 12/30/19 Stop Date: 01/27/20 Status: Ordered Pen Seale, 31 G x 5 mm BD Ultra [...] 05/30/19 18:52:00 EST, Route to Pharmacy Electronically, [facility]/pharmacy #[id number], 160, cm, 05/30/19 18:08:00 [...] each, 5 Refills, Maintenance, 04/26/19 10:30:00 EST, [facility]/pharmacy #[id number], 158, cm, 04/26/19 9:58:00 EST, Height, 82, kg, 04/01/19 16:10:00 EST, Dry Weight Start Date: 04/26/19 Status: Ordered tiZANidine 4 mg oral tablet 4 mg, 1, tablet, By Mouth, Every 8 hours, # 84 tablet, Refills 1, Tot. Refills 1, Maintenance, 11/24/19 8:16:00 EDT, Route to Pharmacy Electronically, [facility] [...]
--- OUTSIDE RECORDS SUMMARY | 2023-03-25 08:27 | XMS_ITS | Continuity of Care Document ---
Author Name Unknown Organization [facility] mary Address [address] [place] [address] Dr [address] [place] [address]- Care Team Providers Care Massage Operator Name Role Phone Richardson QUIROZ, Leonora Pérez Primary Care Physician Encounter [facility] Date(s): 03/18/21 - 05/24/21 [facility] [address] [place] [address] Drive [address] [place], [place] [address] Attending Physician: Santana Hernandez MD Allergies, Adverse Reactions, Alerts Substance Reaction Severity Status morphine Active gabapentin swelling Active Lyrica dysphagia Active SEROquel body swelling - all over Act tony MetFORMIN Hydrochloride ER black tarry stool Active Immunizations Given and Recorded Vaccine Date Status Refusal Reason SARS-CoV-2 mRNA ([id number]) vax 05/14/21 Given influenza virus vaccine, inactivated [...] 19:30:00 EDT, [id number] Partial fill upon patient request if the prescription is for a schedule II o... Start Date: 01/16/21 Status: Ordered Advair Diskus 500 mcg-50 mcg inhalation powder 1, puffs, Inhalation, 2 times a day, j45.909, # 1 each, Refills 5, Tot. Refills 5, Maintenance, 05/15/21 9:20:00 EST, Powder, Route to Pharmacy Electronically, [id number], [facility] 162.5, cm, 05/10/21 14:47... Start Date: 05/15/21 Status: Ordered albuterol 0.083% inhalation solution 3 mL = 2.5 mg, Inhalation, Every 4 hours, PRN for wheezing, # 100 each, 2 Refills, Maintenance, 05/15/21 9:30:00 EST, Solution, [facility]., 162.5, cm, 05/10/21 14:47:00 EST, Height, 90.9, kg, 02/02/21 5:59:00 EDT, Dry Weight Start Date: 05/15/21 Status: Ordered amitriptyline 75 mg oral tablet 1 tablet = 75 mg, By Mouth, Daily at bedtime, # 90 tablet, 1 Refills, Maintenance, 05/07/21 10:21:00 EST, Tablet, [facility], Partial fill upon patient request if the prescription is for a schedule II opioid drug., 162.5, cm, 03/22/21... Start Date: 05/07/21 Status: Ordered atorvastatin 20 mg oral tablet 3 tablet = 60 mg, By Mouth, Daily, # 90 tablet, 3 Refills, Maintenance, 04/05/20 14:11:00 EST, Tablet, [id number], Partial fill upon patient request [...] 5 Refills, Maintenance, 02/18/21 15:09:00 EST, Capsule, [facility]/pharmacy #[id number], Partial fill upon patient request. [...] 16 mL, 1 Refills, Maintenance, [id number], 30, USE 1 SPRAY IN BOTH NOSTRILS [...] capsule, 2 Refills, Maintenance, 05/15/21 9:20:00 EST, [facility], 162.5, cm, 05/10/21 14:47:00 EST, [...] 0 Refills, Maintenance, 08/15/20 15:59:00 EDT, Capsule, [facility]/pharmacy #[id number], Partial fill upon patient request if the prescription is for a schedule II opioid drug., 163, cm, 08/15/20 14:23:00 EDT, Heig... Start Date: 08/15/20 Status: Ordered mirabegron 25 mg oral tablet, extended release 1 tablet = 25 mg, By Mouth, Daily, do not crush or chew, # 30 tablet, 11 Refills, Maintenance, 12/31/20 15:58:00 EDT, ER Tablet, [facility]/pharmacy #[id number], Partial fill upon [...] 1 Refills, Maintenance, 05/17/21 9:57:00 EST, Tablet, [facility], Partial fill upon patient request if the prescription is fora schedule II opioid drug., 162.5, cm, 05/17/21 9:2... Start Date: 05/17/21 Status: Ordered omeprazole 40 mg oral enteric coated capsule 1 capsule = 40 mg, By Mouth, Daily, PRN Dyspepsia, # 90 capsule, 0 Refills, Maintenance, 05/09/21 10:45:00 EST, EC Capsule, [facility], 162.5, cm, 03/22/21 14:58:00 EST, Height, 90.9,kg, 02/02/21 5:59:00 EDT, Dry Weight Start Date: 05/09/21 Status: Ordered oxyCODONE 15 mg oral tablet 1 tablet = 15 mg, By Mouth, 3 times a day, for 28 days, MASSPAT CHECKED PT ON CONTRACT AT [facility], # 84 tablet, 0 Refills, Acute 06/14/21 10:00:00 EST, 05/17/21 10:00:00 EST, [facility], Increase to TID 05/10/21, please request... [...] 04/24/21 8:58:00 EST, Route to Pharmacy Electronically, [facility]., 162.5, cm, 03/22/21 14:58:00 EST, Height, 90.9, kg, 02/02/21... 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
--- OUTSIDE RECORDS SUMMARY | 2023-03-25 08:28 | XMS_ITS | Continuity of Care Document ---
Author Name Unknown Organization [facility] Address [address] [place] [address]- Care Team Providers Care Weatherization Coordinator Name Role Phone Richardson QUIROZ, Leonora Pérez Primary Care Physician [place] [facility] [place] 11/06/20 - 12/06/20 [facility] [address] [place] [address]- Allergies, Adverse Reactions, Alerts Substance Reaction Severity [...] 14:12:00 EST, Powder, Route to Pharmacy Electronically, [id number], [facility]/pharmacy #[id number], 162.56, cm, 03/27/20 11:36:00... Start Date: 04/05/20 Status: Ordered albuterol 0.083% inhalation solution 3 mL = 2.5 mg, Inhalation, Every 4 hours, PRN for wheezing, # 100 each, 2 Refills, Maintenance, 08/15/20 10:22:00 EDT, Solution, [facility]/pharmacy #[id number], 163, cm, 08/09/20 8:45:00 EDT, [...] 3 Refills, Maintenance, 11/01/19 15:25:00 EDT, Cream, [facility]/pharmacy #[id number], 1 application Topically 3 times [...] 16 mL, 1 Refills, Maintenance, [facility], 30, USE 1 SPRAY IN BOTH NOSTRILS 2 TIMES A DAY, 163, cm, 08/15/20 14:23:00 EDT, Height,84.8, kg, 06/25/20 20:28:00 EDT, Dry Weight Start Date: 09/07/20 Status: Ordered hydrochlorothiazide 12.5 mg oral tablet 1 tablet = 12.5 mg, By Mouth, Daily, # 90 tablet, 3 Refills, Maintenance, 01/19/20 10:28:00 EDT, Tablet, [facility]/pharmacy #[id number], 163, cm, 12/26/19 13:58:00 EDT, Height, 80, kg, 10/29/19 0:29:00 EDT, Dry Weight Start Date: 01/19/20 Status: Ordered Januvia 100 mg oral tablet 1 tablet = 100 mg, By Mouth, Daily, # 30 tablet, 2 Refills, Maintenance, 10/29/20 14:07:00 EDT, Tablet, [facility]/pharmacy #0488, 163, cm, 08/15/20 14:23:00 EDT, Height, 84.8, kg, 06/25/20 20:28:00 EDT, Dry Weight Start Date: 10/29/20 Status: Ordered Lantus 100 u/ml subcutaneous solution = 40 units, Subcutaneous Injection, Daily, # 12 mL, 11 Refills, Maintenance, 05/07/20 13:24:00 EST,Solution, [facility]/pharmacy #[id number], increased dose 12/26/19, 162, cm, [...] 05/07/20 13:30:00 EST, Route to Pharmacy Electronically, [facility]/pharmacy #[id number], 162, cm, 04/21/20 11:33:00 EST, Height, 80, kg, 04/18/20 9:48:00 EST, Dry Weight Start Date: 05/07/20 Status: Ordered loratadine 10 mg oral capsule 1 capsule = 10 mg, By Mouth, Daily, # 40 capsule, 0 Refills, Maintenance, 08/15/20 15:59:00 EDT, Capsule, [facility]/pharmacy #[id number], Partial fill upon patient request if the prescription is for a schedule II opioid drug., 163, cm, 08/15/20 14:23:00 EDT, Heig... Start Date: 08/15/20 Status: Ordered Mapap 325 mg oral tablet 2 tablet = 650 mg, By Mouth, Every 4 hours, PRN for pain, not to exceed 3000 mg/day. instructions in tunisian, # 120 tablet, 2 Refills, Maintenance, 11/01/19 15:24:00 EDT, Tablet, [facility]/pharmacy #0488, 163, cm, 11/01/19 14:40:00 EDT, [...] 2 Refills, Maintenance, 04/05/20 14:08:00 EST, Tablet, [facility]/pharmacy #[id number], Partial fill upon patient request if the prescription is for a schedule II opioid drug., 162.56, cm, ... Start Date: 04/05/20 Status: Ordered omeprazole 40 mg oral enteric coated capsule 1 capsule = 40 mg, By Mouth, Daily, # 90 capsule, 0 Refills, Maintenance, 08/13/20 10:34:00 EDT, ECCapsule, [facility]/pharmacy #[id number], 163, cm, 08/09/20 8:45:00 EDT, [...] 12/05/20 12:46:00 EDT, Route to Pharmacy Electronically, [facility]/pharmacy #[id number], Partial fill upon patient request [...] 10/30/20 11:37:00 EDT, Route to Pharmacy Electronically, [facility]/pharmacy #[id number], 163, cm, 08/15/20 14:23:00 EDT, Height, 84.8, kg, 06/25/20 20:28:00 EDT... Start Date: 10/30/20 Status: Ordered Soma 350 mg oral tablet 350 mg, 1, tablet, By Mouth, 3 times a day, # 9 tablet, Refills 0, Tot. Refills 0, Maintenance, 05/04/20 15:46:00 EST, Route to Pharmacy Electronically, [facility]/pharmacy #[id number], Partial fill upon patient request [...] 12/05/20 12:45:00 EDT, Route to Pharmacy Electronically, [facility]/pharmacy #[id number], 165, cm, 11/22/20 8:40:00 EDT, Height, 84.8, kg, 06/25/20 20:28:00... Start Date: 12/05/20 Stop Date: 01/30/21 Status: Ordered Trulicity Pen 0.75 mg/0.5 mL subcutaneous solution 0.5 mL = 0.75 mg, Subcutaneous Injection, Every week, rotate injection sites, # 2 mL, 5 Refills, Maintenance, 10/31/20 15:27:00 EDT, Solution, [facility]/pharmacy #[id number], Partial fill upon patient request [...]
--- OUTSIDE RECORDS SUMMARY | 2023-03-25 08:28 | XMS_ITS | Continuity of Care Document ---
Author Name Unknown Organization [facility] Address [address] [place] [address]- Care Team Providers Care Animal Trainer Supervisor Name Role Phone Richardson QUIROZ, Leonora Pérez Primary Care Physician [facility]counter [facility] Date[facility]s): 12/18/20 - 01/17/21 [facility] [address] [place] [address]- Attending Physician: Not on Staff, Attending MD [...] 01/16/21 19:30:00 EDT, Route to Pharmacy Electronically, [facility]/pharmacy #[id number], Partial fill upon patient request if the prescription is for a schedule II o... Start Date: 01/16/21 Status: Ordered Advair Diskus 500 mcg-50 mcg inhalation powder 1, puffs, Inhalation, 2 times a day, j45.909, # 1 each, Refills 11, Tot. Refills 11, Maintenance, 04/05/20 14:12:00 EST, Powder, Route to Pharmacy Electronically, [id number], [facility]/pharmacy #[id number], 162.56, cm, 03/27/20 11:36:00... Start Date: 04/05/20 Status: Ordered albuterol 0.083% inhalation solution 3 mL = 2.5 mg, Inhalation, Every 4 hours, PRN for wheezing, # 100 each, 2 Refills, Maintenance, 08/15/20 10:22:00 EDT, Solution, [facility]/pharmacy #[id number], 163, cm, 08/09/20 8:45:00 EDT, Height, 84.8, kg, 06/25/20 20:28:00 EDT, Dry Weight Start Date: 08/15/20 Status: Ordered amitriptyline 75 mg oral tablet 1 tablet = 75 mg, By Mouth, Daily at bedtime, # 30 tablet, 5 Refills, Maintenance, 08/16/20 11:58:00 EDT, Tablet, [facility]/pharmacy #[id number], Partial fill upon patient request if the prescription is for a schedule II opioid drug. INSTEAD OF 50mg SCRIPT PLEASE... Start Date: 08/16/20 Status: Ordered atorvastatin 20 mg oral tablet 1 tablet = 20 mg, By Mouth, Daily, # 90 tablet, 3 Refills, Maintenance, 04/05/20 14:11:00 EST, Tablet, [facility]/pharmacy #[id number], Partial fill upon patient request if the prescription is for a schedule II opioid drug., 162.56, cm, 03/27/20 11:36:00 EST, Heig... Start Date: 04/05/20 Status: Ordered capsaicin 0.025% topical cream 1 application, Topically, 3 times a day, # 45 Gm, 3 Refills, Maintenance, 11/01/19 15:25:00 EDT, Cream, [facility]/pharmacy #[id number], 1 application Topically 3 times [...] Refills, Soft Stop, 11/23/20 14:43:00 EDT, Tablet, [facility]/pharmacy #[id number], Partial fill upon patient request if the prescription is for a schedule II opioid... Start Date: 11/23/20 Status: Ordered fluticasone 50 mcg/inh nasal spray See Instructions, USE 1 SPRAY IN BOTH NOSTRILS 2 TIMES A DAY, # 16 mL, 1 Refills, Maintenance, [id number], 30, USE 1 SPRAY IN BOTH NOSTRILS 2 TIMES A DAY, 163, cm, 08/15/20 14:23:00 EDT, Height,84.8, kg, 06/25/20 20:28:00 EDT, Dry Weight Start Date: 09/07/20 Status: Ordered hydrochlorothiazide 12.5 mg oral tablet 1 tablet = 12.5 mg, By Mouth, Daily, # 90 tablet, 3 Refills, Maintenance, 01/19/20 10:28:00 EDT, Tablet, [facility]/pharmacy #[id number], 163, cm, 12/26/19 13:58:00 EDT, Height, 80, kg, 10/29/19 0:29:00 EDT, Dry Weight Start Date: 01/19/20 Status: Ordered Januvia 100 mg oral tablet 1 tablet = 100 mg, By Mouth, Daily, # 30 tablet, 2 Refills, Maintenance, 10/29/20 14:07:00 EDT, Tablet, [facility]/pharmacy #0488, 163, cm, 08/15/20 14:23:00 EDT, Height, 84.8, kg, 06/25/20 20:28:00 EDT, Dry Weight Start Date: 10/29/20 Status: Ordered Lantus 100 u/ml subcutaneous solution = 40 units, Subcutaneous Injection, Daily, # 12 mL, 11 Refills, Maintenance, 05/07/20 13:24:00 EST,Solution, [facility]/pharmacy #[id number], increased dose 12/26/19, 162, cm, 04/21/20 11:33:00 EST, Height, 80, kg, 04/18/20 9:48:00 EST, Dry Weight Start Date: 05/07/20 Status: Ordered lidocaine 5% topical film 1 patch, Topically, Daily, For chronic radicular back pain, # 30 patch, 5 Refills, Maintenance, 10/11/20 8:15:00 EDT, [facility]/pharmacy #[id number], 1 patch Topically Daily,Instr:For chronic radicular back pain, 163, cm, 08/15/20 14:23:00 EDT, Height, 84.8, kg,... Start Date: 10/11/20 Status: Ordered lisinopril 20 mg oral tablet 20 mg, 1, tablet, By Mouth, Daily, # 30 tablet, Refills 11, Tot. Refills 11, Maintenance, 05/07/20 13:30:00 EST, Route to Pharmacy Electronically, [facility]/pharmacy #[id number], 162, cm, 04/21/20 11:33:00 EST, Height, 80, kg, 04/18/20 9:48:00 EST, Dry Weight Start Date: 05/07/20 Status: Ordered loratadine 10 mg oral capsule 1 capsule = 10 mg, By Mouth, Daily, # 40 capsule, 0 Refills, Maintenance, 08/15/20 15:59:00 EDT, Capsule, [facility]/pharmacy #[id number], Partial fill upon patient request if the prescription is for a schedule II opioid drug., 163, cm, 08/15/20 14:23:00 EDT, Heig... Start Date: 08/15/20 Status: Ordered mirabegron 25 mg oral tablet, extended release 1 tablet = 25 mg, By Mouth, Daily, do not crush or chew, # 30 tablet, 11 Refills, Maintenance, 12/31/20 15:58:00 EDT, ER Tablet, [facility]/pharmacy #[id number], Partial fill upon patient request [...] 01/01/21 15:40:00 EDT, Route to Pharmacy Electronically, [facility]/pharmacy #[id number], Partial fill upon patient request [...] 05/04/20 15:46:00 EST, Route to Pharmacy Electronically, [facility]/pharmacy #[id number], Partial fill upon patient request [...] 12/05/20 12:45:00 EDT, Route to Pharmacy Electronically, [facility]/pharmacy #[id number], 165, cm, 11/22/20 8:40:00 EDT, Height, 84.8, kg, 06/25/20 20:28:00... Start Date: 12/05/20 Stop Date: 01/30/21 Status: Ordered Trulicity Pen 0.75 mg/0.5 mL subcutaneous solution 0.5 mL = 0.75 mg, Subcutaneous Injection, Every week, rotate injection sites, # 2 mL, 5 Refills, Maintenance, 10/31/20 15:27:00 EDT, Solution, [facility]/pharmacy #[id number], Partial fill upon patient request [...]
--- OUTSIDE RECORDS SUMMARY | 2023-03-25 08:28 | XMS_ITS | Continuity of Care Document ---
Author Name Unknown Organization [facility] Address [address] [place] [address]- Care Team Providers Care Circulating Process Inspector Name Role Phone Richardson QUIROZ, Leonora Pérez Primary Care Physician [facility] Date[facility]): 11/[facility]19 - 12/09/19 [facility] [address] [place] [address]- [facility] Allergies, Adverse Reactions, Alerts Substance [...] 12:48:00 EST, Powder, Route to Pharmacy Electronically, [id number], [id number], 158, cm, 04/26/19 9:58:00 EST, [...] tablet, 5 Refills, Maintenance, 10/06/19 7:45:00EDT, Tablet, [facility]/pharmacy #[id number], 160, cm, 09/28/19 8:58:00 [...] Maintenance, 11/01/19 15:25:00 EDT, Cream, [facility]/pharmacy #[id number], 1 application Topically 3 times a day, 163, cm, 11/01/19 14:40:00 EDT, Height, 80, kg, 10/29/19 0:29:00 EDT, Dry Weight Start Date: 11/01/19 Status: Ordered cetirizine 10 mg oral tablet 1 tablet = 10 mg, By Mouth, Daily, # 30 tablet, 5 Refills, Maintenance, 04/19/19 15:40:00 EST, Tablet, [facility]/pharmacy #[id number], 158, cm, 04/04/19 15:21:00 [...] 3 Refills, Maintenance, 09/02/19 10:23:00 EDT, Tablet, [facility]/pharmacy #0488, PLEASE CANCEL LISINOPRIL, 160, [...] Refills, Maintenance, 04/28/19 16:05:00 EST, Tablet, [facility]/pharmacy #[id number], 158, cm, 04/28/19 14:51:00 [...] 5 Refills, Maintenance, 06/27/19 14:37:00 EDT, [facility]/pharmacy #[id number], 1 patch Topically Daily,Instr:For chronic radicular back pain, 160, cm, 06/01/19 14:08:00 EST, Height, 88.9, kg,... Start Date: 06/27/19 Status: Ordered Lisinopril By Mouth, Daily, 0 Refills, Maintenance, 12/07/19 15:21:00 EDT Start Date: 12/07/19 Status: Ordered lithium 300 mg oral tablet, extended release 2 tablet = 600 mg, By Mouth, Daily at bedtime, Maintenance, 05/24/19 9:12:00 EST, ER Tablet Start Date: 05/24/19 Status: Ordered Mapap 325 mg oral tablet 2 tablet = 650 mg, By Mouth, Every 4 hours, PRN for pain, not to exceed 3000 mg/day. instructions in maltese, # 120 tablet, 2 Refills, Maintenance, 11/01/19 15:24:00 EDT, Tablet, [facility]/pharmacy #0488, 163, cm, 11/01/19 14:40:00 EDT, Height, 80, kg, 07/... Start Date: 11/01/19 Status: Ordered metFORMIN 1000 mg oral tablet 1 tablet = 1,000 mg, By Mouth, 2 times a day, # 60 tablet, 2 Refills, Maintenance, 11/09/19 16:12:00 EDT, Tablet, [facility]/pharmacy #[id number], 163, cm, 11/01/19 [...] 10/06/19 7:45:00 EDT, EC Capsule, [facility]/pharmacy #[id number], cancel Ranitidine, 160,cm, 09/28/19 8:58:00 EDT, Height, 86.8, kg, ... Start Date: 10/06/19 Status: Ordered Oxycodone By Mouth, 0 Refills, Maintenance, 12/07/19 15:23:00 EDT, Partial fill upon patient request Start Date: 12/07/19 Status: Ordered Pen Geary, 31 G x 5 mm BD Ultra [...] 18:52:00 EST, Route to Pharmacy Electronically, [facility]/pharmacy #[id number], 160, cm, 05/30/19 18:08:00 [...] EST, Route to Pharmacy Electronically, [facility]/pharmacy #[id number], 160, cm, 06/01/19 14:08:00 EST, Height, 88.9, kg, 05/23/19 22:09:00 EST,... Start Date: 06/10/19 Status: Ordered Spiriva Respimat 60 ACT 2.5 mcg/inh inhalation aerosol 2 puffs, Inhalation, Daily, # 1 each, 5 Refills, Maintenance, 04/26/19 10:30:00 EST, [facility]/pharmacy #[id number], 158, cm, 04/26/19 9:58:00 EST, Height, 82, kg, 04/01/19 16:10:00 EST, Dry Weight Start Date: 04/26/19 Status: Ordered tiZANidine 4 mg oral tablet 4 mg, 1, tablet, By Mouth, Every 8 hours, # 84 tablet, Refills 1, Tot. Refills 1, Maintenance, 11/24/19 8:16:00 EDT, Route to Pharmacy Electronically, [facility]/pharmacy #[id number], 163, cm, 11/01/19 [...] [address] [place] [facility] [place] 6surgically repaired July 2015 Dr. Sg MENDEZ 7urge and stress Social History Social History Type Response Tobacco Use: Pt states she q uit smoking 1 week ago. Sex Female
--- OUTSIDE RECORDS SUMMARY | 2023-03-25 08:28 | XMS_ITS | Continuity of Care Document ---
Author Name Unknown Organization [facility] Address [address] [place] [address]- Care Team Providers Care Patient Placement Coordinator Name Role Phone Richardson QUIROZ, Leonora Pérez Primary Care Physician [facility]): [facility]/21 - 12/22/21 [facility] [address] [place], [place] [address] Allergies, Adverse Reactions, Alerts Substance Reaction Severity Status morphine Active gabapentin swelling Active Lyrica dysphagia Active SEROquel body swelling - all over Act tony MetFORMIN Hydrochloride ER black tarry stool Active Immunizations Given and Recorded Vaccine Date Status Refusal Reason SARS-CoV-2 mRNA ([id number]) vax 05/14/21 Given influenza virus vaccine, inactivated [...] 10/22/21 9:23:00 EDT, Route to Pharmacy Electronically, [facility], Partial fill uponpatient request if the prescription is for a schedu... Start Date: 10/22/21 Status: Ordered Advair Diskus 500 mcg-50 mcg inhalation powder 1, puffs, Inhalation, 2 times a day, [id number], # 1 each, Refills 5, Tot. Refills 5, Maintenance, 05/15/21 9:20:00 EST, Powder, Route to Pharmacy Electronically, [id number], [facility], 162.5, cm, 05/10/21 14:47... Start Date: 05/15/21 Status: Ordered albuterol 0.083% inhalation solution 3 mL = 2.5 mg, Inhalation, Every 4 hours, PRN for wheezing, # 100 each, 2 Refills, Maintenance, 11/22/21 12:30:00 EDT, Solution, [facility], 162, cm, 11/14/21 11:01:00 EDT, Height, 86, kg, 07/23/21 0:58:00 EDT, Dry Weight Start Date: 11/22/21 Status: Ordered amitriptyline 25 mg oral tablet 25 mg, 1, tablet, By Mouth, Daily at bedtime, # 30 tablet, Refills 2, Tot. Refills 2, Maintenance, 08/30/21 12:06:00 EDT, Route to Pharmacy Electronically, [facility], Partial fill upon patient request [...] 5 Refills, Maintenance, 08/28/21 9:07:00 EDT, Tablet, [facility]., 162, cm, 08/22/21 9:46:00 EDT, Height, 86, kg, 07/23/21 0:58:00 EDT, Dry Weight Start Date: 08/28/21 Status: Ordered cholecalciferol 5000 intl units oral capsule 1 capsule = 125 mcg, By Mouth, Daily, with food, # 100 capsule, 2 Refills, Maintenance, 02/11/21 11:17:00 EST, Capsule, [facility]/pharmacy #[id number], Partial fill upon patient [...] 07/08/21 9:45:00 EDT, Cream, [facility]., PLEASE CANCEL ESTRADIOL VAGINAL CREAM, 1 [...] tablet, 0 Refills, Maintenance, 10/24/2219:09:00 EDT, Tablet, [facility] Partial fill upon patient request if the prescription is for a schedule II opioid drug., 2 tablet By... Start Date: 10/23/21 Status: Ordered duloxetine 60 mg oral enteric coated capsule 2 capsule = 120 mg, By Mouth, Daily, # 60 capsule, 5 Refills, Maintenance, 11/14/21 11:41:00 EDT, Capsule, [facility] Partial fill upon patient request. NOT INCREASED DOSE. Please cancel all other Duloxetine scripts, 162, cm, 11/14/21... Start Date: 11/14/21 Status: Ordered empagliflozin 10 mg oral tablet 1 tablet = 10 mg, By Mouth, Daily in AM, # 30 tablet, 5 Refills, Maintenance, 08/28/21 9:07:00 EDT,Tablet, [facility] Partial fill upon patient request if the prescription is for a schedule II opioid drug., 162, cm, 08/22/21 9:46:00... Start Date: 08/28/21 Status: Ordered fluticasone 50 mcg/inh nasal spray See Instructions, USE 1 SPRAY IN BOTH NOSTRILS 2 TIMES A DAY, # 16 mL, 1 Refills, 07/08/21 9:44:00 EDT, [facility] 30, USE 1 SPRAY IN [...] Mouth, Daily, # 30 tablet, 5 Refills, [facility], 162, cm, 11/14/21 11:01:00EDT, Height, 86, kg, 07/23/21 0:58:00 EDT, Dry Weight Start Date: 11/19/21 Status: Ordered ibuprofen 800 mg oral tablet 800 mg, 1, tablet, By Mouth, 3 times a day, PRN, # 90 tablet, Refills 1, Tot. Refills 1, Maintenance, Pain , Mild, 10/31/21 13:59:00 EDT, Route to Pharmacy Electronically, [facility],please fill 800mg instead of 600mg, [...] 3 Refills, Maintenance, 06/18/21 21:04:00 EDT, Tablet, [facility], 162.5, cm, 06/17/21 13:04:00 EDT, Height, 85.8, kg, 06/04/21 10:03:00 EST, Dry Weight Start Date: 06/18/21 Status: Ordered Lantus 100 u/ml subcutaneous solution = 50 units, Subcutaneous Injection, Daily, # 15 mL, 5 Refills, Maintenance, 07/08/21 9:38:00 EDT, Solution, [facility], ;, 162.5, cm, 07/08/21 8:49:00 EDT, Height, 85.8, kg, 06/04/21 10:03:00 EST, Dry Weight Start Date: 07/08/21 Status: Ordered lisinopril 20 mg oral tablet 20 mg, 1, tablet, By Mouth, Daily, # 90 tablet, Refills 3, Tot. Refills 3, Maintenance, 08/28/21 9:07:00 EDT, Route to Pharmacy Electronically, [facility], 162, cm, 08/22/21 9:46:00 EDT, Height, 86, kg, 07/23/21 0:58:00 EDT, Dry Weight Start Date: 08/28/21 Status: Ordered Melatonin 10 mg oral tablet 1 tablet = 10 mg, By Mouth, Daily at bedtime, # 30 each, 5 Refills, Maintenance, 11/14/21 11:42:00 EDT, [facility], Partial fill upon patient request [...] PRN NEEDED, # 30 capsule, 2 Refills, [facility], 162, cm, 09/06/21 13:04:00 EDT, Height, 86, kg, 07/23/21 0:58:00 EDT, Dry Weight Start Date: 10/02/21 Status: Ordered OxyCONTIN 15 mg oral tablet, extended release 1 tablet = 15 mg, By Mouth, Every 12 hours, # 56 tablet, 0 Refills, Maintenance, 11/26/21 8:00:00 EDT, ER Tablet, [facility], Partial fill upon patient request if the prescription is for a schedule II opioid drug. For fill 11/26/21, dos... Start Date: 11/26/21 Stop Date: 12/24/21 Status: Ordered OxyCONTIN 30 mg oral tablet, extended release 1 tablet = 30 mg, By Mouth, Every 12 hours, # 56 tablet, 0 Refills, Maintenance, 10/29/21 17:34:00 EDT, ER Tablet, [facility]/pharmacy #[id number], Partial fill upon patient request if the prescription is for a schedule II opioid drug. ON contract at [facility], 30mg E... Start Date: 10/29/21 Stop Date: 11/26/21 Status: Ordered Senna 8.6 mg oral tablet 8.6 mg, 1, tablet, By Mouth, Daily at bedtime, # 100 tablet, Refills 11, Tot. Refills 11, Maintenance, 07/08/21 9:39:00 EDT, Route to Pharmacy Electronically, [facility]., 162.5, cm, 07/08/21 8:49:00 EDT, Height, 85.8, kg, 06/04/21 10:0... 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 Fabian [phone](Confirmed) Active Syncope and collapse(Confirmed) Active Tobacco dependence(Confirmed) Active DM2 (diabetes mellitus, type 2)(Confirmed) 04/03/17 Active Incontinence of urine(Confirmed) 3 Active 1seen on MRI 10/2016, rec repeat imaging in October [address] Abd 09/18/16 at [facility], pending MRI 3urge and stress Social History Social History Type Response Smoking Status Current every day sm oker; Type: Cigarettes; Tobacco use times per day: 1/2 ppd; entered on: 12/24/17 Sex Care Team Personnel Name: Richardson QUIROZ, Leonora Pérez Address: [address] [place] [address] [place], [place] [address]
--- OUTSIDE RECORDS SUMMARY | 2023-03-25 08:28 | XMS_ITS | Continuity of Care Document ---
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, Leonora Pérez Primary Care Physician [facility]): 02[facility]22 - 03/08/22 [facility] [address] [place] [address]- Allergies, Adverse Reactions, Alerts Substance Reaction Severity Status morphine Active gabapentin swelling Active MetFORMIN Hydrochloride ER black tarry stool Active Lyrica dysphagia Active SEROquel body swelling - all over Act tony Immunizations Given and Recorded Vaccine Date Status Refusal Reason [id number] 12y+ bivalent booster vax 01/30/22 Given influenza virus vaccine, inactivated 01/30/22 Give n influenza virus vaccine, inactivated 02/04/21 Give n influenza virus vaccine, inactivated 1 04/19/20 Gi tonio influenza virus vaccine, inactivated 03/12/19 Give n influenza virus vaccine, inactivated 01/19/18 Give n influenza virus vaccine, inactivated 02/16/17 Give n pneumococcal 20-valent conjugate vaccine 12/26/21 Given SARS-CoV-2 mRNA (reaoonj-ghnq-hwgfx) vax 05/14/21 Given SARS-CoV-2 (COVID-19) mRNA BNT-162b2 vac 2 10/19/20 Given SARS-CoV-2 (COVID-19) mRNA BNT-162b2 vac 09/28/20 Given pneumococcal 23-valent vaccine 03/12/19 Given tetanus/diphtheria/pertussis, acel(Tdap) 07/29/13 Given 1Early/Late Reason: Early/Late Reason: Patient Not Available/Off Unit 2? Unknown: Resend to [facility]. Resend to [facility]. Medications acetaminophen 325 mg oral tablet 650 [...] 08/30/21 12:06:00 EDT, Route to Pharmacy Electronically, [facility], Partial fill upon patient request if the prescription is for a sche... Start Date: 08/30/21 Status: Ordered amLODIPine 5 mg oral tablet 5 mg, 1, tablet, By Mouth, Daily, # 90 tablet, Refills 0, Tot. Refills 0, Maintenance, 01/30/22 10:50:00 EDT, Route to Pharmacy Electronically, [facility], Partial fill upon patient request if the prescription is for a schedule II opio... Start Date: 01/30/22 Status: Ordered cetirizine 10 mg oral tablet 1 tablet = 10 mg, By Mouth, Daily, # 30 tablet, 5 Refills, Maintenance, 08/28/21 9:07:00 EDT, Tablet, [facility], 162, cm, 08/22/21 9:46:00 EDT, [...] Refills, Maintenance, 02/21/22 10:35:00 EST, [facility] Partial fill upon patient request if the prescription is for a schedule II opioid drug., 2 tablet By... Start Date: 02/21/22 Status: Ordered duloxetine 60 mg oral enteric coated capsule 2 capsule = 120 mg, By Mouth, Daily, # 60 capsule, 5 Refills, Maintenance, 11/14/21 11:41:00 EDT, Capsule, [facility] Partial fill upon patient request. NOT INCREASED DOSE. Please cancel all other Duloxetine scripts, 162, cm, 11/14/21... Start Date: 11/14/21 Status: Ordered empagliflozin 10 mg oral tablet 1 tablet = 10 mg, By Mouth, Daily in AM, # 30 tablet, 5 Refills, Maintenance, 02/20/22 12:04:00 EST, Tablet, [facility] Partial fill upon patient request if the prescription is for aschedule II opioid drug., 163, cm, 02/11/22 19:19:0... Start Date: 02/20/22 Status: Ordered fluticasone 50 mcg/inh nasal spray See Instructions, USE 1 SPRAY IN BOTH NOSTRILS 2 TIMES A DAY, # 16 mL, 1 Refills, 07/08/21 9:44:00 EDT, [facility] 30, USE 1 SPRAY IN BOTH NOSTRILS 2 TIMES A DAY, 162.5, cm, :49:00 EDT, Height, 85.8, kg, 06/04/21 10:03:00 ES... Start Date: 07/08/21 Status: Ordered ibuprofen 800 mg oral tablet 1, tablet, By Mouth, 3 times a day, PRN, # 90 tablet, Refills 1, Maintenance, NEEDED FOR PAIN, 03/05/22 15:56:00 EST, Route to Pharmacy Electronically, [facility], 163, cm, 02/11/22 19:19:00 EST, Height, 83, kg, 02/11/22 19:19:00 EST, Dry... Start Date: 03/05/22 Status: Ordered Januvia 100 mg oral tablet 1 tablet = 100 mg, By Mouth, Daily, # 90 tablet, 3 Refills, Maintenance, 06/18/21 21:04:00 EDT, Tablet, [facility]., 162.5, cm, 06/17/21 13:04:00 EDT, Height, 85.8, kg, 06/04/21 10:03:00 EST, Dry Weight Start Date: 06/18/21 Status: Ordered Lantus 100 u/ml subcutaneous solution = 50 units, Subcutaneous Injection, Daily, # 15 mL, 2 Refills, Maintenance, 01/06/22 12:07:00 EDT, Solution, [facility], ;, 163, cm, 01/03/22 11:20:00 EDT, Height, 84, kg, 01/02/22 19:36:00 EDT, Dry Weight Start Date: 01/06/22 Status: Ordered lidocaine 5% topical film 1 patch, Topically, Daily, PRN Pain , Mild, remove after 12 hours, # 13 each, 5 Refills, Maintenance, 12/26/21 10:37:00 EDT, Film, [facility], Partial fill upon patient request if theprescription is for a schedule II opioid drug., 1 p... Start Date: 12/26/21 Status: Ordered lisinopril 20 mg oral tablet 20 mg, 1, tablet, By Mouth, Daily, # 90 tablet, Refills 3, Tot. Refills 3, Maintenance, 08/28/21 9:07:00 EDT, Route to Pharmacy Electronically, [facility], 162, cm, 08/22/21 9:46:00 EDT, Height, 86, kg, 07/23/21 0:58:00 EDT, Dry Weight Start Date: 08/28/21 Status: Ordered Melatonin 10 mg oral tablet 1 tablet = 10 mg, By Mouth, Daily at bedtime, # 30 each, 5 Refills, Maintenance, 11/14/21 11:42:00 EDT, [facility], Partial fill upon [...] PRN NEEDED, # 30 capsule, 2 Refills, [facility], 162, cm, 09/06/21 13:04:00 EDT, Height, 86, kg, 07/23/21 0:58:00 EDT, Dry Weight Start Date: 10/02/21 Status: Ordered oxyCODONE 15 mg oral tablet 1 tablet = 15 mg, By Mouth, 3 times a day, for 28 days, On contract at [facility]., # 84 tablet, 0 Refills, Acute 03/26/22 15:15:00 EST, 02/26/22 15:15:00 EST, [facility], Partial fill uponpatient request [...] capsule, 0 Refills, Maintenance, 03/06/22 16:55:00 EST, [facility], 163, cm, 02/11/22 19:19:00 EST, Height, 83, kg, 02/11/22 19:19:00 EST, Dry Weight Start Date: 03/06/22 Status: Ordered Trulicity Pen 3 mg/0.5 mL subcutaneous solution See Instructions, INJECT 0.5 ML SUBCUTANEOUSLY EVERY WEEK. 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 Fabian [phone] Confirmed Active Syncope and collapse Confirmed Active [...] Team Personnel Name: Sindy Bernal RN Position: [facility] RN Member Role: Primary Care Nurse Name: Graciela Thrasher RN Position: [facility] SN RN Member Role: Primary Care Nurse Name: Stevie Angel RN Position: [facility] RN Member Role: Primary Care Nurse Name: Leonora Bai NP Position: [facility] PCO Associate Professional Member Role: PCP Address: Address: [address] [place] [id number] Name: Keily Ortega RN Position: [facility] RN Member Role: Primary Care Nurse Name: Graciela Munroe RN Position: [facility] RN Member Role: Primary Care Nurse Name: Nichole Pichardo RN Position: [facility] RN Member Role: Primary Care Nurse Name: Melvin Whitfield RN Position: [facility] PCO RN Member Role: Primary Care Nurse Name: Phuong Berkowitz RN Position: [facility] RN Member Role: Primary Care Nurse Name: Joselyn Rain RN Position: [facility] Chemist Inorganic Member Role: Primary Care Nurse Care Team Related Persons Name: IRA ROMERO Address: home [address] [place] [address] Name: JHON LARSON Address: [address] [place] [address] Name: JHON LARSON Address: [address] [place] [address] Name: GALO CATALAN Name: NANCY CATALAN Address: home [address] [place] [address]
--- OUTSIDE RECORDS SUMMARY | 2023-03-25 08:28 | XMS_ITS | Continuity of Care Document ---
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, Leonora Pérez Primary Care Physician [facility]s): 04/29/22 - 05/29/22 [facility] [address] [place] [address]- Encounter Diagnosis Hypertension(Discharge Diagnosis) - 04/29/22 Allergies, Adverse Reactions, Alerts Substance Reaction Severity Status morphine Active gabapentin swelling Active Lyrica dysphagia Active SEROquel body swelling - all over Act tony MetFORMIN Hydrochloride ER black tarry stool Active Immunizations Given and Recorded Vaccine Date Status Refusal Reason [id number] 12y+ bivalent booster vax 01/30/22 Given influenza virus vaccine, inactivated 01/30/22 Give n influenza virus vaccine, inactivated 02/04/21 Give n influenza virus vaccine, inactivated 1 04/19/20 Gi tonio influenza virus vaccine, inactivated 03/12/19 Give n influenza virus vaccine, inactivated 01/19/18 Give n influenza virus vaccine, inactivated 02/16/17 Give n pneumococcal 20-valent conjugate vaccine 12/26/21 Given SARS-CoV-2 mRNA (uevrvsi-rwvw-oauys) vax 05/14/21 Given SARS-CoV-2 (COVID-19) mRNA BNT-162b2 [...] tablet, 5 Refills, Maintenance, 04/03/22 11:25:00 EST, [facility], 163, cm, 02/11/22 19:19:00 EST, Height, 83, kg, 02/11/22 19:19:00 EST, Dry Weight Start Date: 04/03/22 Status: Ordered amitriptyline 25 mg oral tablet 25 mg, 1, tablet, By Mouth, Daily at bedtime, # 30 tablet, Refills 2, Tot. Refills 2, Maintenance, 08/30/21 12:06:00 EDT, [facility], [facility] 2 Refills, Maintenance, 02/11/21 11:17:00 EST, Capsule, [facility]/pharmacy #[id number], Partial fill upon patient [...] 11 Refills, Maintenance, 02/21/22 10:35:00 EST, Tablet, [facility] Partial fill upon patient request if the prescription is for a schedule II opioid drug., 2 tablet By... Start Date: 02/21/22 Status: Ordered duloxetine 60 mg oral enteric coated capsule 2 capsule = 120 mg, By Mouth, Daily, # 60 capsule, 5 Refills, Maintenance, 05/26/22 17:03:00 EST, Capsule, [facility] Partial fill upon patient request. NOT INCREASED DOSE. Please cancel all other Duloxetine scripts, 163, cm, 05/19/22... Start Date: 05/26/22 Status: Ordered empagliflozin 10 mg oral tablet 1 tablet = 10 mg, By Mouth, Daily in AM, # 30 tablet, 5 Refills, Maintenance, 02/20/22 12:04:00 EST, Tablet, [facility] Partial fill upon patient request if the prescription is for aschedule II opioid drug., 163, cm, 02/11/22 19:19:0... Start Date: 02/20/22 Status: Ordered fluticasone 50 mcg/inh nasal spray See Instructions, USE 1 SPRAY IN BOTH NOSTRILS 2 TIMES A DAY, # 16 mL, 1 Refills, 07/08/21 9:44:00 EDT, [facility] 30, USE 1 SPRAY IN [...] [facility], 163, cm, 02/11/22 19:19:00 EST, Height, 83, kg, 11/0... Start Date: 04/29/22 Status: Ordered Januvia 100 mg oral tablet 1 tablet = 100 mg, By Mouth, Daily, # 90 tablet, 3 Refills, Maintenance, 06/18/21 21:04:00 EDT, Tablet, [facility] 162.5, cm, 06/17/21 13:04:00 EDT, Height, 85.8, kg, 06/04/21 10:03:00 EST, Dry Weight Start Date: 06/18/21 Status: Ordered Lantus 100 u/ml subcutaneous solution = 50 units, Subcutaneous Injection, Daily, # 15 mL, 2 Refills, Maintenance, 01/06/22 12:07:00 EDT, Solution, [facility]., ;, 163, cm, 01/03/22 11:20:00 EDT, [...] 08/28/21 9:07:00 EDT, Route to Pharmacy Electronically, [facility], 162, cm, 08/22/21 9:46:00 EDT, Height, 86, kg, 07/23/21 0:58:00 EDT, Dry Weight Start Date: 08/28/21 Status: Ordered Melatonin 10 mg oral tablet 1 tablet = 10 mg, By Mouth, Daily at bedtime, # 30 each, 11 Refills, Maintenance, 04/29/22 11:56:00EST, [facility], Partial fill [...] PRN NEEDED, # 30 capsule, 2 Refills, [facility], 162, cm, 09/06/21 13:04:00 EDT, Height, 86, kg, 07/23/21 0:58:00 EDT, Dry Weight Start Date: 10/02/21 Status: Ordered oxyCODONE 15 mg oral tablet 1 tablet = 15 mg, By Mouth, 3 times a day, on contract at [facility], # 84 tablet, 0 Refills, Maintenance, 05/28/22 14:56:00 EST, [facility], Partial fill [...] 07/08/21 9:39:00 EDT, Route to Pharmacy Electronically, [facility], 162.5, cm, 07/08/21 8:49:00 EDT, Height, 85.8, kg, 06/04/21 10:0... Start Date: 07/08/21 Status: Ordered tiZANidine 4 mg oral capsule 1 capsule, By Mouth, 3 times a day, # 90 capsule, 0 Refills, Maintenance, 05/26/22 17:03:00 EST, [facility] 163, cm, 05/19/22 15:33:00 EST, Height, 83, kg, 02/11/22 19:19:00 EST, DryWeight Start Date: 05/26/22 Status: Ordered Trulicity Pen 3 mg/0.5 mL subcutaneous solution See Instructions, INJECT 0.5 ML SUBCUTANEOUSLY EVERY WEEK. 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 [phone] Confirmed Active Syncope and collapse Confirmed Active Tobacco dependence Confirmed Active DM2 (diabetes mellitus, type 2) Confirmed 04/03/17 Active Incontinence of urine 3 Confirmed Active 1seen on MRI 10/2016, rec repeat imaging in October [address] [place] [facility] 3urge and stress Diagnosis Diagnosis Type Effective Dates Health Status Cl inical Service Informant Hypertension Discharge Diagnosis 04/29/22 Non-Specified Social History Social History Type Response Smoking Status Current every day sm oker; Type: Cigarettes; Tobacco use times per day: 1/2 ppd; entered on: 12/24/17 Sex Patient Care team information Care Team Personnel Name: Sindy Bernal RN Position: [facility] RN Member Role: Primary Care Nurse Name: Graciela Thrasher RN Position: [facility] SN RN Member Role: Primary Care Nurse Name: Stevie Angel RN Position: [facility] RN Member Role: Primary Care Nurse Name: Richardson QUIROZ, Leonora Pérez Position: [facility] PCO Associate Professional Member Role: PCP Address: Address: [address] [place] [address] Name: Keily Ortega RN Position: [facility] RN Member Role: Primary Care Nurse Name: Graciela Munroe RN Position: [facility] RN Member Role: Primary Care Nurse Name: Nichole Pichardo RN Position: [facility] RN Member Role: Primary Care Nurse Name: Melvin Whitfield [facility] RN Member Role: Primary Care Nurse Name: Phuong Berkowitz RN Position: [facility] RN Member Role: Primary Care Nurse Name: Joselyn Rain RN Position: [facility] Motor Coach Bus Driver Member Role: Primary Care Nurse Care Team Related Persons Name: RIA ROMERO Address: home [address] [place] [address] Name: JHON LARSON Address: [address] [place] [address] Name: JHON LARSON Address: home [address] [place] [address] Name: GALO CATALAN Name: NANCY CATALAN Address: home [address] [place] [address]
--- OUTSIDE RECORDS SUMMARY | 2023-03-25 08:28 | XMS_ITS | Continuity of Care Document ---
Author Name Unknown Organization [facility] Address [address] [place] [address]- Care Team Providers Care General Internist And Physician Leader Name Role Phone Richardson QUIROZ, Leonora Pérez Primary Care Physician Encounter [facility] Date(s): 04/05/20 - 05/05/20 [facility] [address] [place], [place] [address] Allergies, Adverse Reactions, Alerts Substance Reaction [...] 14:12:00 EST, Powder, Route to Pharmacy Electronically, [id number], [facility]/pharmacy #[id number], 162.56, cm, 03/27/20 11:36:00... Start Date: 04/05/20 Status: Ordered albuterol 0.083% inhalation solution 3 mL = 2.5 mg, Inhalation, Every 4 hours, PRN for wheezing, # 100 each, 5 Refills, Maintenance, 06/27/19 14:32:00 EDT, Solution, [facility]/pharmacy #[id number], 160, cm, 06/01/19 14:08:00 EST, Height, 88.9, kg, 05/23/19 22:09:00 EST, Dry Weight Start Date: 06/27/19 Status: Ordered amitriptyline 50 mg oral tablet 1 tablet = 50 mg, By Mouth, Daily at bedtime, # 30 tablet, 5 Refills, Maintenance, 12/30/19 18:21:00 EDT, Tablet, [facility]/pharmacy #[id number], 163, cm, 12/26/19 13:58:00 EDT, Height, 80, kg, 10/29/19 0:29:00 EDT, Dry Weight Start Date: 12/30/19 Status: Ordered atorvastatin 20 mg oral tablet 1 tablet = 20 mg, By Mouth, Daily, # 90 tablet, 3 Refills, Maintenance, 04/05/20 14:11:00 EST, Tablet, [facility]/pharmacy #[id number], Partial fill upon patient request if the prescription is for a schedule II opioid drug., 162.56, cm, 03/27/20 11:36:00 EST, Heig... Start Date: 04/05/20 Status: Ordered capsaicin 0.025% topical cream 1 application, Topically, 3 times a day, # 45 Gm, 3 Refills, Maintenance, 11/01/19 15:25:00 EDT, Cream, [facility]/pharmacy #[id number], 1 application Topically 3 times a day, 163, cm, 11/01/19 14:40:00 EDT, Height, 80, kg, 10/29/19 0:29:00 EDT, Dry Weight Start Date: 11/01/19 Status: Ordered cetirizine 10 mg oral tablet 1 tablet = 10 mg, By Mouth, Daily, # 30 tablet, 5 Refills, Maintenance, 12/13/19 18:32:00 EDT, Tablet, [facility]/pharmacy #[id number], 163, cm, 12/13/19 15:57:00 EDT, Height, 80, kg, 10/29/19 0:29:00 EDT, Dry Weight Start Date: 12/13/19 Status: Ordered clonazePAM 0.5 mg oral tablet TAKE 1 TABLET BY MOUTH TWICE A DAY NEEDED Start Date: 06/02/19 Status: Ordered clotrimazole 1% topical cream 1 application, Topically, 2 times a day, # 30 Gm, 1 Refills, Maintenance, 02/03/20 13:47:00 EDT, Cream, [facility]/pharmacy #[id number], 1 application Topically 2 times [...] patch, 5 Refills, Maintenance, 03/09/20 8:53:00 EST, [facility]/pharmacy #[id number], 1 patch Topically Daily,Instr:For chronic [...] not to exceed 3000 mg/day. instructions in mongolian, # 120 tablet, 2 Refills, Maintenance, 11/01/19 15:24:00 EDT, Tablet, [facility]/pharmacy #[id number], 163, cm, 11/01/19 14:40:00 EDT, [...] Refills, Maintenance, 04/05/20 14:08:00 EST, Tablet, [facility]/pharmacy #[id number], Partial fill upon patient request if the prescription is for a schedule II opioid drug., 162.56, cm, 12/... Start Date: 04/05/20 Status: Ordered omeprazole 20 mg oral enteric coated capsule 1 capsule = 20 mg, By Mouth, Daily, Use as little as possible to control symptoms., # 30 capsule, 2Refills, Maintenance, 10/06/19 7:45:00 EDT, EC Capsule, [id number], cancel Ranitidine, 160,cm, 09/28/19 8:58:00 EDT, [...] Acute 05/31/20 17:54:00 EST, 05/03/20 17:54:00 EST, [id number], Partial fill upon patient request if the prescription is for a schedule II opioid drug. Client on c... Start Date: 05/03/20 Stop Date: 05/31/20 Status: Ordered Senna 8.6 mg oral tablet 8.6 mg, 1, tablet, By Mouth, Daily at bedtime, # 100 tablet, Refills 2, Tot. Refills 2, Maintenance, 06/10/19 16:12:00 EST, Route to Pharmacy Electronically, [facility]/pharmacy #[id number], 160, cm, 06/01/19 14:08:00 EST, [...] Route to Pharmacy Electronically, [facility]/pharmacy #[id number], 162, cm, 04/21/20 11:33:00 EST, [...] [address] Abd 09/18/16 at [facility], pending MRI 3urge and stress Social History Social History Type Response Tobacco Use: Pt states she q uit smoking 1 week ago. Sex
--- OUTSIDE RECORDS SUMMARY | 2023-03-25 08:28 | XMS_ITS | Continuity of Care Document ---
Author Name Unknown Organization [facility] Address [address], [address] [place] [address]- Care Team Providers Care Attendant Sales Name Role Phone Richardson QUIROZ, Leonora Pérez Primary Care Physician Encounter [facility] Date(s): 03/25/21 - 04/24/21 [facility] [address], [address] [place], [place] [address] Attending Physician: Clarence Reynaga Admitting Physician: [...] 19:30:00 EDT, Route to Pharmacy Electronically, [facility]/pharmacy #[id number], Partial fill upon patient request if the prescription is for a schedule II o... Start Date: 01/16/21 Status: Ordered Advair Diskus 500 mcg-50 mcg inhalation powder 1, puffs, Inhalation, 2 times a day, j45.909, # 1 each, Refills 11, Tot. Refills 11, Maintenance, 04/05/20 14:12:00 EST, Powder, Route to Pharmacy Electronically, [id number], [facility]/pharmacy #[id number], 162.56, [...] 45 each, 1 Refills, 03/21/21 16:11:00 EST, [facility]/pharmacy #[id number], 162.5, cm, 03/14/21 10:31:00 EST, [...] Maintenance, 06/20/20 13:18:00 EDT, Tablet, [facility]/pharmacy #[id number], 162, cm, 05/24/20 9:01:00 EST, Height, 80, kg, 04/18/20 9:48:00 EST, Dry Weight Start Date: 06/20/20 Status: Ordered cholecalciferol 5000 intl units oral capsule 1 capsule = 125 mcg, By Mouth, Daily, with food, # 100 capsule, 2 Refills, Maintenance, 02/11/21 11:17:00 EST, Capsule, [facility]/pharmacy [...] Refills, Maintenance, 12/05/20 12:42:00 EDT, Cream, [facility]/pharmacy [...] Maintenance, 02/18/21 15:09:00 EST, Capsule, [facility]/pharmacy [...] 16 mL, 1 Refills, Maintenance, [id number], 30, USE 1 SPRAY IN BOTH NOSTRILS [...] Refills, Maintenance, 03/01/21 12:42:00 EST, Tablet, [facility]/pharmacy #[id number], 155, cm, 02/18/21 14:54:00 EST, Height, 90.9, kg, 02/02/21 5:59:00 EDT, DryWeight Start Date: 03/01/21 Status: Ordered Lantus 100 u/ml subcutaneous solution = 40 units, Subcutaneous Injection, Daily, # 12 mL, 2 Refills, Maintenance, 03/01/21 12:42:00 EST, Solution, [facility]/pharmacy #[id number], increased dose 12/26/19, 155, cm, [...] Electronically, [facility]/pharmacy #[id number], 162.5, cm, 03/22/21 14:58:00 EST, [...] Maintenance, 12/31/20 15:58:00 EDT, ER Tablet, [facility]/pharmacy #[id number], [...] 1 Refills, Maintenance, 01/31/21 14:16:00 EDT, Tablet, [facility], Partial fill upon patient request if the prescription is for a schedule II opioid drJose. Start Date: 01/31/21 Status: Ordered omeprazole 40 mg oral enteric coated capsule 1 capsule = 40 mg, By Mouth, Daily, PRN Dyspepsia, # 90 capsule, 0 Refills, Maintenance, 01/11/21 13:46:00 EDT, EC Capsule, [facility]/pharmacy #[id number], 165, cm, 12/31/20 14:56:00 EDT, Height, 87.6, kg, 12/31/20 14:56:00 EDT, Dry Weight Start Date: 01/11/21 Status: Ordered oxyCODONE 15 mg oral tablet 1 tablet = 15 mg, By Mouth, 2 times a day, for 28 days, MASSPAT CHECKED PT ON CONTRACT AT [facility], # 56 tablet, 0 Refills, Acute 05/22/21 8:57:00 EST, 04/24/21 8:57:00 EST, [facility].SELENA CHECKED ; PT ON CONTRACT AT [facility]... Start Date: 04/24/21 Stop Date: 05/22/21 [...] EDT, [id number], cm, 08/15/20 14:23:00 EDT, Height, [...] 04/24/21 8:58:00 EST, Route to Pharmacy Electronically, [facility]., 162.5, cm, 03/22/21 14:58:00 EST, Height, 90.9, kg, 02/02/21... 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
--- OUTSIDE RECORDS SUMMARY | 2023-03-25 08:28 | XMS_ITS | Continuity of Care Document ---
Author Name Unknown Organization [facility] Address [address] [place], [place] [address]balwinder guerrero, [address] [place] [address]- Care Team Providers Care Rail Signal Mechanic Name Role Phone Richardson QUIROZ, Leonora Pérez Primary Care Physician Encounter [facility] Date(s): 06/03/21 - 06/10/21 [facility] [address] [place] [address] Drive, [address] [place], [place] [address] Attending Physician: Lizbeth Alfaro DO Referring Physician: Richardson QUIROZ, Leonora Pérez Allergies, Adverse Reactions, Alerts Substance Reaction Severity Status morphine Active gabapentin swelling Active Lyrica dysphagia Active SEROquel body swelling - all over Act tony MetFORMIN Hydrochloride ER black tarry stool Active Immunizations Given and Recorded Vaccine Date Status Refusal Reason SARS-CoV-2 mRNA ([id number]) vax 05/14/21 Given influenza virus vaccine, inactivated [...] 05/31/21 15:43:00 EST, Route to Pharmacy Electronically, [facility], Partial fill upon patient request if the prescription is for a sched... Start Date: 05/31/21 Status: Ordered Advair Diskus 500 mcg-50 mcg inhalation powder 1, puffs, Inhalation, 2 times a day, j45.909, # 1 each, Refills 5, Tot. Refills 5, Maintenance, 05/15/21 9:20:00 EST, Powder, Route to Pharmacy Electronically, [id number], [facility], 162.5, cm, 05/10/21 14:47... Start Date: 05/15/21 Status: Ordered albuterol 0.083% inhalation solution 3 mL = 2.5 mg, Inhalation, Every 4 hours, PRN for wheezing, # 100 each, 2 Refills, Maintenance, 05/15/21 9:30:00 EST, Solution, [facility], 162.5, cm, 05/10/21 14:47:00 EST, Height, 90.9, kg, 02/02/21 5:59:00 EDT, Dry Weight Start Date: 05/15/21 Status: Ordered amitriptyline 75 mg oral tablet 1 tablet = 75 mg, By Mouth, Daily at bedtime, # 90 tablet, 1 Refills, Maintenance, 05/07/21 10:21:00 EST, Tablet, [facility], Partial fill upon patient request if the prescription is for a schedule II opioid drug., 162.5, cm, 03/22/21... Start Date: 05/07/21 Status: Ordered atorvastatin 20 mg oral tablet 3 tablet = 60 mg, By Mouth, Daily, # 90 tablet, 3 Refills, Maintenance, 04/05/20 14:11:00 EST, Tablet, [facility]/pharmacy #[id number], Partial fill upon patient request if the prescription is for a schedule II opioid drug., 162.56, cm, 03/27/20 11:36:00 EST, Heig... Start Date: 04/05/20 Status: Ordered capsaicin 0.025% topical cream 1 application, Topically, 3 times a day, # 45 Gm, 3 Refills, Maintenance, 11/01/19 15:25:00 EDT, Cream, [facility]/pharmacy #[id number], 1 application Topically 3 times a day, 163, cm, 11/01/19 14:40:00 EDT, Height, 80, kg, 10/29/19 0:29:00 EDT, Dry Weight Start Date: 11/01/19 Status: Ordered cetirizine 10 mg oral tablet 1 tablet = 10 mg, By Mouth, Daily, # 30 tablet, 5 Refills, Maintenance, 06/20/20 13:18:00 EDT, Tablet, [facility]/pharmacy #[id number], 162, cm, 05/24/20 9:01:00 EST, Height, 80, kg, 04/18/20 9:48:00 EST, Dry Weight Start Date: 06/20/20 Status: Ordered cholecalciferol 5000 intl units oral capsule 1 capsule = 125 mcg, By Mouth, Daily, with food, # 100 capsule, 2 Refills, Maintenance, 02/11/21 11:17:00 EST, Capsule, [facility]/pharmacy #[id number], Partial fill upon patient request [...] 5 Refills, Maintenance, 02/18/21 15:09:00 EST, Capsule, [facility]/pharmacy #[id number], Partial fill upon patient request. [...] DAY, # 16 mL, 1 Refills, Maintenance, [id number], 30, USE 1 SPRAY IN BOTH NOSTRILS 2 TIMES A DAY, 163, cm, 08/15/20 14:23:00 EDT, Height,84.8, kg, 06/25/20 20:28:00 EDT, Dry Weight Start Date: 09/07/20 Status: Ordered hydrochlorothiazide 12.5 mg oral tablet 1 tablet = 12.5 mg, By Mouth, Daily, TAKE 1 TABLET BY MOUTH EVERY DAY, # 30 capsule, 2 Refills, Maintenance, 05/15/21 9:20:00 EST, [facility], 162.5, cm, 05/10/21 14:47:00 EST, [...] Moderate, 06/05/21 15:55:00 EST,Route to Pharmacy Electronically, [facility]... Start Date: 06/05/21 Stop Date: [...] 2 Refills, Maintenance, 03/01/21 12:42:00 EST, Tablet, [facility]/pharmacy #[id number], 155, cm, 02/18/21 14:54:00 EST, Height, 90.9, kg, 02/02/21 5:59:00 EDT, DryWeight Start Date: 03/01/21 Status: Ordered Lantus 100 u/ml subcutaneous solution = 40 units, Subcutaneous Injection, Daily, # 12 mL, 2 Refills, Maintenance, 03/01/21 12:42:00 EST, Solution, [facility]/pharmacy #[id number], increased dose 12/26/19, 155, cm, [...] 04/12/21 13:24:00 EST, Route to Pharmacy Electronically, [facility]/pharmacy #[id number], 162.5, cm, 03/22/21 14:58:00 EST, Height, 90.9, kg, 02/02/21 5:59:00 EDT, Dry Weight Start Date: 04/12/21 Status: Ordered loratadine 10 mg oral capsule 1 capsule = 10 mg, By Mouth, Daily, # 40 capsule, 0 Refills, Maintenance, 08/15/20 15:59:00 EDT, Capsule, [facility]/pharmacy #[id number], Partial fill upon patient request if the prescription is for a schedule II opioid drug., 163, cm, 08/15/20 14:23:00 EDT, Heig... Start Date: 08/15/20 Status: Ordered mirabegron 25 mg oral tablet, extended release 1 tablet = 25 mg, By Mouth, Daily, do not crush or chew, # 30 tablet, 11 Refills, Maintenance, 12/31/20 15:58:00 EDT, ER Tablet, [facility]/pharmacy #[id number], Partial fill upon patient request [...] Refills, Maintenance, 05/09/21 10:45:00 EST, EC Capsule, [facility], 162.5, cm, 03/22/21 14:58:00 EST, Height, 90.9,kg, 02/02/21 5:59:00 EDT, Dry Weight Start Date: 05/09/21 Status: Ordered oxyCODONE 15 mg oral tablet 1 tablet = 15 mg, By Mouth, 3 times a day, for 28 days, MASSPAT CHECKED PT ON CONTRACT AT [facility], # 84 tablet, 0 [...] 10/30/20 11:37:00 EDT, Route to Pharmacy Electronically, [facility]/pharmacy #[id number], 163, cm, 08/15/20 14:23:00 EDT, [...] 04/24/21 8:58:00 EST, Route to Pharmacy Electronically, [facility], 162.5, cm, 03/22/21 14:58:00 EST, Height, 90.9, kg, 02/02/21... 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 [phone](Confirmed) Active Syncope and collapse(Confirmed) Active Tobacco dependence(Confirmed) Active DM2 (diabetes mellitus, type 2)(Confirmed) 04/03/17 Active Incontinence of urine(Confirmed) 3 Active 1seen on MRI 10/2016, rec repeat imaging in October [address] Abd 09/18/16 at [facility], pending MRI 3urge and stress Vital Signs Most recent to oldest [Reference Range]: 1 Height 162.5 cm (06/03/21 1:08 PM) Weight 88 kg (06/03/21 1:08 PM) Body Mass Index [18.5-24.99] 33.33 *>HHI* (06/03/21 1:08 PM) Social History Social History Type Response Smoking Status Current every day sm oker; Type: Cigarettes; Tobacco use times per day: 1/2 ppd; entered on: 12/24/17 Sex
--- OUTSIDE RECORDS SUMMARY | 2023-03-25 08:28 | XMS_ITS | Continuity of Care Document ---
Author Name Unknown Organization [facility] Address [address] [place] [address]- Care Team Providers Care Kineseologist Name Role Phone Richardson QUIROZ, Leonora Pérez Primary Care Physician [facility]counter [facility] Date(s): 05/24/20 - 06/23/20 [facility] [address], [place] [address] Encounter Diagnosis INA (stress urinary incontinence, female)(Discharge [...] 14:12:00 EST, Powder, Route to Pharmacy Electronically, [id number], [facility]/pharmacy #[id number], 162.56, cm, 03/27/20 11:36:00... Start Date: 04/05/20 Status: Ordered albuterol 0.083% inhalation solution 3 mL = 2.5 mg, Inhalation, Every 4 hours, PRN for wheezing, # 100 each, 5 Refills, Maintenance, 06/27/19 14:32:00 EDT, Solution, [facility]/pharmacy #[id number], 160, cm, 06/01/19 14:08:00 EST, Height, 88.9, kg, 05/23/19 22:09:00 EST, Dry Weight Start Date: 06/27/19 Status: Ordered amitriptyline 50 mg oral tablet 1 tablet = 50 mg, By Mouth, Daily at bedtime, # 30 tablet, 5 Refills, Maintenance, 12/30/19 18:21:00 EDT, Tablet, [facility]/pharmacy #[id number], 163, cm, 12/26/19 13:58:00 EDT, Height, 80, kg, 10/29/19 0:29:00 EDT, Dry Weight Start Date: 12/30/19 Status: Ordered atorvastatin 20 mg oral tablet 1 tablet = 20 mg, By Mouth, Daily, # 90 tablet, 3 Refills, Maintenance, 04/05/20 14:11:00 EST, Tablet, [facility]/pharmacy #[id number], Partial fill upon patient request if the prescription is for a schedule II opioid drug., 162.56, cm, 03/27/20 11:36:00 EST, Heig... Start Date: 04/05/20 Status: Ordered capsaicin 0.025% topical cream 1 application, Topically, 3 times a day, # 45 Gm, 3 Refills, Maintenance, 11/01/19 15:25:00 EDT, Cream, [facility]/pharmacy #[id number], 1 application Topically 3 times [...] 1 Refills, Maintenance, 06/04/20 12:46:00 EST, Cream, [facility]/pharmacy #[id number], 1 application Topically 2 times [...] 12/30/19 18:21:00 EDT, Tablet, [facility]/pharmacy #[id number], 163, cm, 12/26/19 13:58:00 EDT, Height, 80, kg, 10/29/19 0:29:00 EDT, Dry Weight Start Date: 12/30/19 Status: Ordered Lantus 100 u/ml subcutaneous solution = 40 units, Subcutaneous Injection, Daily, # 12 mL, 11 Refills, Maintenance, 05/07/20 13:24:00 EST,Solution, [facility]/pharmacy #[id number], increased dose 12/26/19, 162, cm, 04/21/20 11:33:00 EST, Height, 80, kg, 04/18/20 9:48:00 EST, Dry Weight Start Date: 05/07/20 Status: Ordered lidocaine 5% topical film 1 patch, Topically, Daily, For chronic radicular back pain, # 30 patch, 5 Refills, Maintenance, 03/09/20 8:53:00 EST, [facility]/pharmacy #[id number], 1 patch Topically Daily,Instr:For chronic radicular back pain, 163, cm, 12/26/19 13:58:00 EDT, Height, 80, kg, 07... Start Date: 03/09/20 Status: Ordered lisinopril 20 mg oral tablet 20 mg, 1, tablet, By Mouth, Daily, # 30 tablet, Refills 11, Tot. Refills 11, Maintenance, 05/07/20 13:30:00 EST, Route to Pharmacy Electronically, [facility]/pharmacy #[id number], 162, cm, 04/21/20 11:33:00 EST, Height, 80, kg, 04/18/20 9:48:00 EST, Dry Weight Start Date: 05/07/20 Status: Ordered Mapap 325 mg oral tablet 2 tablet = 650 mg, By Mouth, Every 4 hours, PRN for pain, not to exceed 3000 mg/day. instructions in albanian, # 120 tablet, 2 Refills, Maintenance, 11/01/19 15:24:00 EDT, Tablet, [facility]/pharmacy #[id number], 163, cm, 11/01/19 14:40:00 EDT, [...] Refills, Maintenance, 04/05/20 14:08:00 EST, Tablet, [facility]/pharmacy #[id number], Partial fill upon patient request if the prescription is for a schedule II opioid drug., 162.56, cm, ... Start Date: 04/05/20 Status: Ordered omeprazole 40 mg oral enteric coated capsule 1 capsule = 40 mg, By Mouth, Daily, # 30 capsule, 3 Refills, Maintenance, 05/24/20 9:40:00 EST, EC Capsule, [facility]/pharmacy #[id number], note dose increase, 162, cm, [...] Acute 07/02/20 12:45:00 EDT, 06/04/20 12:45:00 EST, [facility]/pharmacy #[id number], Partial fill upon patient request if the prescription is for a schedule II opioid drug. Client on c... Start Date: 06/04/20 Stop Date: 07/02/20 Status: Ordered Senna 8.6 mg oral tablet 8.6 mg, 1, tablet, By Mouth, Daily at bedtime, # 100 tablet, Refills 2, Tot. Refills 2, Maintenance, 06/04/20 12:46:00 EST, Route to Pharmacy Electronically, [facility]/pharmacy #[id number], 162, cm, 05/24/20 9:01:00 EST, Height, 80, kg, 04/18/20 9:48:00 EST, Dry... Start Date: 06/04/20 Status: Ordered Soma 350 mg oral tablet 350 mg, 1, tablet, By Mouth, 3 times a day, # 9 tablet, Refills 0, Tot. Refills 0, Maintenance, 05/04/20 15:46:00 EST, [id number] Partial fill upon patient request if the prescription is for a schedule II opi... Start Date: 05/04/20 Status: Ordered Spiriva Respimat 60 ACT 2.5 mcg/inh inhalation aerosol 2 puffs, Inhalation, Daily, # 1 each, 11 Refills, Maintenance, 04/05/20 14:17:00 EST, [facility]/pharmacy #[id number], Partial fill upon patient request if the prescription is for a schedule II opioid drug., 162.56, cm, 03/27/20 11:36:00 EST, Height, 81.81, kg, 12... Start Date: 04/05/20 Status: Ordered tiZANidine 4 mg oral tablet 4 mg, 1, tablet, By Mouth, Every 8 hours, PRN, # 84 tablet, Refills 1, Tot. Refills 1, Maintenance,Spasm, 05/03/20 11:26:00 EST, Route to Pharmacy Electronically, [facility]/pharmacy #[id number], 162, cm, 04/21/20 11:33:00 EST, [...] at [place], pending MRI 3urge and stress Diagnosis Diagnosis Type Effective Dates Health Status Cl inical Service Informant INA (stress urinary incontinence, female) Discharge Diagnosis 02/11/19 Social History Social History Type Response Tobacco Use: Pt states she q uit smoking 1 week ago. Sex
--- OUTSIDE RECORDS SUMMARY | 2023-03-25 08:28 | XMS_ITS | Continuity of Care Document ---
Author Name Unknown Organization [facility] Address [address] [place] [address]- Care Team Providers Care Cleaning Porter Name Role Phone Richardson QUIROZ, Leonora Pérez Primary Care Physician Encounter [facility] Date(s): 07/27/20 - 08/26/20 [facility] [address] [place] [address]- Allergies, Adverse Reactions, Alerts Substance Reaction Severity [...] 14:12:00 EST, Powder, Route to Pharmacy Electronically, [id number], [facility]/pharmacy #[id number], 162.56, cm, 03/27/20 11:36:00... [...] 5 Refills, Maintenance, 08/16/20 11:58:00 EDT, Tablet, [facility]/pharmacy #[id number], Partial fill upon patient request if the prescription is for a schedule II opioid drug. INSTEAD OF 50mg SCRIPT PLEASE... Start Date: 08/16/20 Status: Ordered atorvastatin 20 mg oral tablet 1 tablet = 20 mg, By Mouth, Daily, # 90 tablet, 3 Refills, Maintenance, 04/05/20 14:11:00 EST, Tablet, [facility]/pharmacy #[id number], Partial fill [...] 5 Refills, Maintenance, 06/20/20 13:18:00 EDT, Tablet, [facility]/pharmacy #[id number], 162, cm, 05/24/20 9:01:00 EST, [...] Gm, 1 Refills, Maintenance, 08/15/20 15:59:00 EDT, [place], [id number], Partial fill upon patient request [...] not to exceed 3000 mg/day. instructions in jamaican, # 120 tablet, 2 Refills, Maintenance, 11/01/19 [...] day, for 28 days, on contract at [facility], # 56 tablet, 0 Refills, Acute 08/27/20 16:11:00 EDT, 07/30/20 16:11:00 EDT, [id number], Partial fill upon patient request if the prescription is for a schedule II opi... Start Date: 07/30/20 Stop Date: 08/27/20 Status: Ordered prazosin 2 mg oral capsule TAKE 1 CAPSULE BY MOUTH EVERYDAY AT BEDTIME Start Date: 08/09/20 Status: Ordered Senna 8.6 mg oral tablet 8.6 mg, 1, tablet, By Mouth, Daily at bedtime, # 100 tablet, Refills 2, Tot. Refills 2, Maintenance, 06/04/20 12:46:00 EST, Route to Pharmacy Electronically, [facility]/pharmacy #[id number], 162, cm, 05/24/20 9:01:00 EST, [...]
--- OUTSIDE RECORDS SUMMARY | 2023-03-25 08:28 | XMS_ITS | Continuity of Care Document ---
Author Name Unknown Organization [facility] Address [address] [place] [address]- Care Team Providers Care Ux Designer Name Role Phone Richardson QUIROZ, Leonora Pérez Primary Care Physician [phone] Encounter [facility] Date(s): 07/10/21 - 08/09/21 [facility] [address], [place] [address] Allergies, Adverse Reactions, Alerts Substance Reaction Severity Status morphine Active gabapentin swelling Active Lyrica dysphagia Active SEROquel body swelling - all over Act tony MetFORMIN Hydrochloride ER black tarry stool Active Immunizations Given and Recorded Vaccine Date Status Refusal Reason SARS-CoV-2 mRNA ([id number]) vax 05/14/21 Given influenza virus vaccine, inactivated [...] 07/18/21 15:15:00 EDT, Route to Pharmacy Electronically, [facility], Partial fill upon patient request if the prescription is for a sched... Start Date: 07/18/21 Status: Ordered Advair Diskus 500 mcg-50 mcg inhalation powder 1, puffs, Inhalation, 2 times a day, j45.909, # 1 each, Refills 5, Tot. Refills 5, Maintenance, 05/15/21 9:20:00 EST, Powder, Route to Pharmacy Electronically, [id number], [facility], 162.5, cm, 05/10/21 14:47... Start Date: 05/15/21 Status: Ordered albuterol 0.083% inhalation solution 3 mL = 2.5 mg, Inhalation, Every 4 hours, PRN for wheezing, # 100 each, 2 Refills, Maintenance, 05/15/21 9:30:00 EST, Solution, [facility], 162.5, cm, 05/10/21 14:47:00 EST, Height, 90.9, kg, 02/02/21 5:59:00 EDT, Dry Weight Start Date: 05/15/21 Status: Ordered amitriptyline 25 mg oral tablet 25 mg, 1, tablet, By Mouth, Daily at bedtime, Dose decrease, # 30 tablet, Refills 0, Tot. Refills 0, Maintenance, 08/01/21 15:07:00 EDT, Route to Pharmacy Electronically, [facility], Partial fill upon patient request if the prescriptio... Start Date: 08/01/21 Status: Ordered atorvastatin 40 mg oral tablet 1 tablet = 40 mg, By Mouth, Daily, # 90 tablet, 3 Refills, Maintenance, 07/08/21 9:47:00 EDT, Tablet, [facility], Partial fill upon patient request if the prescription is for a schedule II opioid drug., 162.5, cm, 07/08/21 8:49:00 EDT,... Start Date: 07/08/21 Status: Ordered cetirizine 10 mg oral tablet 1 tablet = 10 mg, By Mouth, Daily, # 30 tablet, 5 Refills, Maintenance, 07/08/21 9:44:00 EDT, Tablet, [facility]., 162.5, cm, 07/08/21 8:49:00 EDT, Height, [...] 1 Refills, Maintenance, 07/08/21 9:45:00 EDT, Cream, [facility], PLEASE CANCEL ESTRADIOL VAGINAL CREAM, 1 application [...] 5 Refills, Maintenance, 02/18/21 15:09:00 EST, Capsule, [facility]/pharmacy #[id number], Partial fill upon patient request. NOT INCREASED DOSE, 155, cm, 02/18/2114:54:00 EST, Height, 90.9, kg, 02/02/21 5:59:00 ED... Start Date: 02/18/21 Status: Ordered empagliflozin 10 mg oral tablet 1 tablet = 10 mg, By Mouth, Daily in AM, # 30 tablet, 5 Refills, Maintenance, 07/08/21 9:43:00 EDT,Tablet, [facility], Partial fill upon patient request if the prescription is for a schedule II opioid drug., 162.5, cm, 07/08/21 8:49:0... Start Date: 07/08/21 Status: Ordered fluticasone 50 mcg/inh nasal spray See Instructions, USE 1 SPRAY IN BOTH NOSTRILS 2 TIMES A DAY, # 16 mL, 1 Refills, 07/08/21 9:44:00 EDT, [facility]., 30, USE 1 SPRAY IN BOTH NOSTRILS 2 TIMES A DAY, 162.5, cm, :49:00 EDT, Height, 85.8, kg, 06/04/21 10:03:00 ES... Start Date: 07/08/21 Status: Ordered hydrochlorothiazide 12.5 mg oral tablet 1 tablet = 12.5 mg, By Mouth, Daily, TAKE 1 TABLET BY MOUTH EVERY DAY, # 30 capsule, 2 Refills, Maintenance, 05/15/21 9:20:00 EST, [facility]., 162.5, cm, 05/10/21 14:47:00 EST, Height, [...] 3 Refills, Maintenance, 06/18/21 21:04:00 EDT, Tablet, [facility]., 162.5, cm, 06/17/21 13:04:00 EDT, Height, 85.8, kg, 06/04/21 10:03:00 EST, Dry Weight Start Date: 06/18/21 Status: Ordered Lantus 100 u/ml subcutaneous solution = 50 units, Subcutaneous Injection, Daily, # 15 mL, 5 Refills, Maintenance, 07/08/21 9:38:00 EDT, Solution, [facility]., ;, 162.5, cm, 07/08/21 8:49:00 EDT, Height, 85.8, kg, 06/04/21 10:03:00 EST, Dry Weight Start Date: 07/08/21 Status: Ordered lisinopril 20 mg oral tablet 20 mg, 1, tablet, By Mouth, Daily, # 90 tablet, Refills 3, Tot. Refills 3, Maintenance, 04/12/21 13:24:00 EST, Route to Pharmacy Electronically, [facility]/pharmacy #[id number], 162.5, cm, 03/22/21 14:58:00 EST, Height, 90.9, kg, 02/02/21 5:59:00 EDT, Dry Weight Start Date: 04/12/21 Status: Ordered meloxicam 7.5 mg oral tablet 1 tablet = 7.5 mg, By Mouth, Daily, # 30 tablet, 1 Refills, Maintenance, 06/24/21 16:30:00 EDT, Tablet, [facility] Partial fill upon patient request if [...] Refills, Maintenance, 05/09/21 10:45:00 EST, EC Capsule, [facility], 162.5, cm, 03/22/21 14:58:00 EST, Height, 90.9,kg, 02/02/21 5:59:00 EDT, Dry Weight Start Date: 05/09/21 Status: Ordered OxyCONTIN 15 mg oral tablet, extended release 1 tablet = 15 mg, By Mouth, Every 12 hours, # 56 tablet, 0 Refills, Maintenance, 08/03/21 7:30:00 EDT, ER Tablet, [facility], Partial fill [...] 07/08/21 9:39:00 EDT, Route to Pharmacy Electronically, [facility], 162.5, cm, 07/08/21 8:49:00 EDT, Height, 85.8, kg, 06/04/21 10:0... Start Date: 07/08/21 Status: Ordered tiZANidine 4 mg oral tablet 4 mg, 1, tablet, By Mouth, Every 8 hours, PRN, # 84 tablet, Refills 1, Tot. Refills 1, Maintenance,Spasm, 06/24/21 19:16:00 EDT, Route to Pharmacy Electronically, [facility], 162.5, cm, 06/24/21 15:35:00 EDT, Height, 85.8, [...] 0 Refills, Maintenance, 08/01/21 14:59:00 EDT, Tablet, [facility]... 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
--- OUTSIDE RECORDS SUMMARY | 2023-03-25 08:28 | XMS_ITS | Continuity of Care Document ---
Author Name Unknown Organization [facility] mary Address [address] [place] [address] [address] [place] [address]- Care Team Providers Care Water Engineer Name Role Phone Richardson QUIROZ, Leonora Pérez Primary Care Physician Encounter [facility] Date(s): 11/28/20 - 01/26/21 [facility] [address] [place] [address]- Attending Physician: Latasha Lucio Referring Physician: Richardson QUIROZ, Leonora Pérez Allergies, [...] Route to Pharmacy Electronically, [facility]/pharmacy #[id number], Partial fill upon patient request if the prescription is for a schedule II o... Start Date: 01/16/21 Status: Ordered Advair Diskus 500 mcg-50 mcg inhalation powder 1, puffs, Inhalation, 2 times a day, j45.909, # 1 each, Refills 11, Tot. Refills 11, Maintenance, 04/05/20 14:12:00 EST, Pow[place], Route to Pharmacy Electronically, [id number], [facility]/pharmacy #[id number], 162.56, cm, 03/27/20 [...] Gm, 11 Refills, Maintenance, 12/31/20 15:58:00 EDT, [facility]/pharmacy #[id number], Partial fill upon [...] Refills, Soft Stop, 11/23/20 14:43:00 EDT, Tablet, [facility]/pharmacy #[id number], Partial fill upon patient request if the prescription is for a schedule II opioid... Start Date: 11/23/20 Status: Ordered fluticasone 50 mcg/inh nasal spray See Instructions, USE 1 SPRAY IN BOTH NOSTRILS 2 TIMES A DAY, # 16 mL, 1 Refills, Maintenance, [id number], 30, USE 1 SPRAY IN BOTH NOSTRILS 2 TIMES A DAY, 163, cm, 08/15/20 14:23:00 EDT, Height,84.8, kg, 06/25/20 20:28:00 EDT, Dry Weight Start Date: 09/07/20 Status: Ordered hydrochlorothiazide 12.5 mg oral tablet 1 tablet = 12.5 mg, By Mouth, Daily, # 90 tablet, 3 Refills, Maintenance, 01/19/20 10:28:00 EDT, Tablet, [facility]/pharmacy #[id number], 163, cm, 12/26/19 13:58:00 EDT, Height, 80, kg, 10/29/19 0:29:00 EDT, Dry Weight Start Date: 01/19/20 Status: Ordered Januvia 100 mg oral tablet 1 tablet = 100 mg, By Mouth, Daily, # 30 tablet, 2 Refills, Maintenance, 10/29/20 14:07:00 EDT, Tablet, [facility]/pharmacy #[id number], 163, cm, 08/15/20 14:23:00 EDT, Height, 84.8, kg, 06/25/20 20:28:00 EDT, Dry Weight Start Date: 10/29/20 Status: Ordered Lantus 100 u/ml subcutaneous solution = 40 units, Subcutaneous Injection, Daily, # 12 mL, 11 Refills, Maintenance, 05/07/20 13:24:00 EST,Solution, [facility]/pharmacy #[id number], increased dose 12/26/19, 162, cm, 04/21/20 [...] Refills, Maintenance, 01/11/21 13:46:00 EDT, EC Capsule, [facility]/pharmacy #[id number], 165, cm, 12/31/20 14:56:00 EDT, Height, [...] 11:37:00 EDT, Route to Pharmacy Electronically, [facility]/pharmacy #[id number], 163, cm, 08/15/20 14:23:00 EDT, Height, [...] 11 Refills, Maintenance, 04/05/20 14:17:00 EST, [facility]/pharmacy #[id number], Partial fill upon [...]
--- OUTSIDE RECORDS SUMMARY | 2023-03-25 08:28 | XMS_ITS | Continuity of Care Document ---
Author Name Unknown Organization [facility] Address [address] [place] [address]- Care Team Providers Care Machine Shop Worker Name Role Phone Richardson QUIROZ, Leonora Pérez Primary Care Physician Encounter [facility] Date(s): 03/22/21 - 04/21/21 [facility] [address] [place], [place] [address] Attending Physician: Clarence Reynaga Admitting Physician: AdmClarence brown Referring Physician: Admtr, Clarence Allergies, Adverse Reactions, [...] 19:30:00 EDT, Route to Pharmacy Electronically, [facility]/pharmacy #[id number], Partial fill upon patient request if the prescription is for a schedule II o... Start Date: 01/16/21 Status: Ordered Advair Diskus 500 mcg-50 mcg inhalation powder 1, puffs, Inhalation, 2 times a day, j45.909, # 1 each, Refills 11, Tot. Refills 11, Maintenance, 04/05/20 14:12:00 EST, Powder, Route to Pharmacy Electronically, [id number], [facility]/pharmacy #[id number], 162.56, cm, 03/27/20 11:36:00... Start Date: 04/05/20 Status: Ordered albuterol 0.083% inhalation solution 3 mL = 2.5 mg, Inhalation, Every 4 hours, PRN for wheezing, # 100 each, 2 Refills, Maintenance, 08/15/20 10:22:00 EDT, Solution, [facility]/pharmacy #[id number], 163, cm, 08/09/20 8:45:00 EDT, Height, 84.8, kg, 06/25/20 20:28:00 EDT, Dry Weight Start Date: 08/15/20 Status: Ordered amitriptyline 50 mg oral tablet See Instructions, 1.5 tablets by Mouth Daily at bedtime, # 45 each, 1 Refills, 03/21/21 16:11:00 EST, [facility]/pharmacy #[id number], 162.5, cm, 03/14/21 10:31:00 EST, Height, 90.9, kg, 02/02/21 5:59:00 EDT, DryWeight Start Date: 03/21/21 Status: Ordered atorvastatin 20 mg oral tablet 3 tablet = 60 mg, By Mouth, Daily, # 90 tablet, 3 Refills, Maintenance, 04/05/20 14:11:00 EST, Tablet, [facility]/pharmacy #[id number], Partial fill upon patient request if the prescription is for a schedule II opioid drug., 162.56, cm, 03/27/20 11:36:00 EST, Heig... Start Date: 04/05/20 Status: Ordered capsaicin 0.025% topical cream 1 application, Topically, 3 times a day, # 45 Gm, 3 Refills, Maintenance, 11/01/19 15:25:00 EDT, Cream, [facility]/pharmacy #[id number], 1 application Topically 3 times a day, 163, cm, 11/01/19 14:40:00 EDT, Height, 80, kg, 10/29/19 0:29:00 EDT, Dry Weight Start Date: 11/01/19 Status: Ordered cetirizine 10 mg oral tablet 1 tablet = 10 mg, By Mouth, Daily, # 30 tablet, 5 Refills, Maintenance, 06/20/20 13:18:00 EDT, Tablet, [facility]/pharmacy #[id number], 162, cm, 05/24/20 9:01:00 EST, Height, 80, kg, 04/18/20 9:48:00 EST, Dry Weight Start Date: 06/20/20 Status: Ordered cholecalciferol 5000 intl units oral capsule 1 capsule = 125 mcg, By Mouth, Daily, with food, # 100 capsule, 2 Refills, Maintenance, 02/11/21 11:17:00 EST, Capsule, [facility]/pharmacy #[id number], Partial fill upon patient request [...] 1 Refills, Maintenance, 12/05/20 12:42:00 EDT, Cream, [facility]/pharmacy #[id number], 1 application Topically 2 [...] Refills, Maintenance, 02/18/21 15:09:00 EST, Capsule, [facility]/pharmacy #[id number], Partial fill upon patient request. [...] 16 mL, 1 Refills, Maintenance, [id number], 30, USE 1 SPRAY IN BOTH NOSTRILS 2 TIMES A DAY, 163, cm, 08/15/20 14:23:00 EDT, Height,84.8, kg, 06/25/20 20:28:00 EDT, Dry Weight Start Date: 09/07/20 Status: Ordered hydrochlorothiazide 12.5 mg oral tablet 1 tablet = 12.5 mg, By Mouth, Daily, TAKE 1 TABLET BY MOUTH EVERY DAY, # 30 capsule, 2 Refills, Maintenance, 03/22/21 16:20:00 EST, [facility]/pharmacy #[id number], 162.5, cm, 03/14/21 10:31:00 EST, [...] Refills, Maintenance, 03/01/21 12:42:00 EST, Tablet, [facility]/pharmacy #[id number], 155, cm, 02/18/21 14:54:00 EST, Height, 90.9, kg, 02/02/21 5:59:00 EDT, DryWeight Start Date: 03/01/21 Status: Ordered Lantus 100 u/ml subcutaneous solution = 40 units, Subcutaneous Injection, Daily, # 12 mL, 2 Refills, Maintenance, 03/01/21 12:42:00 EST, Solution, [facility]/pharmacy #[id number], increased dose 12/26/19, 155, cm, 02/18/21 14:54:00 EST, Height, 90.9, kg, 02/02/21 5:59:00 EDT, Dry Weight Start Date: 03/01/21 Status: Ordered lidocaine 5% topical film 1 patch, Topically, Daily, For chronic radicular back pain, # 30 patch, 5 Refills, Maintenance, 10/11/20 8:15:00 EDT, [facility]/pharmacy #[id number], 1 patch Topically Daily,Instr:For chronic radicular back pain, 163, cm, 08/15/20 14:23:00 EDT, Height, 84.8, kg,... Start Date: 10/11/20 Status: Ordered lisinopril 20 mg oral tablet 20 mg, 1, tablet, By Mouth, Daily, # 90 tablet, Refills 3, Tot. Refills 3, Maintenance, 04/12/21 13:24:00 EST, Route to Pharmacy Electronically, [facility]/pharmacy #[id number], 162.5, cm, 03/22/21 14:58:00 EST, [...] Refills, Maintenance, 08/15/20 15:59:00 EDT, Capsule, [facility]/pharmacy #[id number], Partial fill upon patient request if the prescription is for a schedule II opioid drug., 163, cm, 08/15/20 14:23:00 EDT, Heig... Start Date: 08/15/20 Status: Ordered mirabegron 25 mg oral tablet, extended release 1 tablet = 25 mg, By Mouth, Daily, do not crush or chew, # 30 tablet, 11 Refills, Maintenance, 12/31/20 15:58:00 EDT, ER Tablet, [facility]/pharmacy #[id number], Partial fill upon patient request [...] prescription is for a schedule II opioid dr.Nishant. Start Date: 01/31/21 Status: Ordered omeprazole 40 [...] Acute 05/17/21 16:23:00 EST, 04/19/21 16:23:00 EST, [facility]/pharmacy #[id number], Client on contract at [facility],, 162.5, cm, 03/22/21 14:58:00 EST, Height, 90.9, [...] 11:37:00 EDT, Route to Pharmacy Electronically, [facility]/pharmacy #[id number], 163, cm, 08/15/20 14:23:00 EDT, Height, 84.8, kg, 06/25/20 20:28:00 EDT... Start Date: 10/30/20 Status: Ordered Spiriva Respimat 60 ACT 2.5 mcg/inh inhalation aerosol 2 puffs, Inhalation, Daily, # 1 each, 11 Refills, Maintenance, 04/05/20 14:17:00 EST, [facility]/pharmacy #[id number], Partial fill upon patient request [...] 12:45:00 EDT, Route to Pharmacy Electronically, [facility]/pharmacy #[id number], 165, cm, 11/22/20 8:40:00 EDT, Height, 84.8, kg, 06/25/20 20:28:00... 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
--- OUTSIDE RECORDS SUMMARY | 2023-03-25 08:28 | XMS_ITS | Continuity of Care Document ---
Author Name Unknown Organization [facility] Address [address] [place] [address]- Care Team Providers Care General Road Supervisor Name Role Phone Aaron GERARDO, Pura Mahajan Primary Care Physician [phone] [place]counter [facility] [place](s): 01/13/23 - 02/12/23 [facility] [address] [place] [address]- Allergies, Adverse Reactions, Alerts Substance Reaction Severity Status morphine Active gabapentin swelling Active Lyrica dysphagia Active SEROquel body swelling - all over Act tony MetFORMIN Hydrochloride ER black tarry stool Active Immunizations Given and Recorded Vaccine Date Status Refusal Reason [id number] 12y+ bivalent booster vax 01/30/22 Given influenza virus vaccine, inactivated 01/30/22 Give n influenza virus vaccine, inactivated 02/04/21 Give n influenza virus vaccine, inactivated 1 04/19/20 Gi tonio influenza virus vaccine, inactivated 03/12/19 Give n influenza virus vaccine, inactivated 01/19/18 Give n influenza virus vaccine, inactivated 02/16/17 Give n pneumococcal 20-valent conjugate vaccine 12/26/21 Given SARS-CoV-2 mRNA ([id number]) vax 05/14/21 Given SARS-CoV-2 (COVID-19) mRNA BNT-162b2 [...] 17:00:00 EDT, Route to Pharmacy Electronically, [facility], Partial fill upon patient request if the prescription is for a sched... Start Date: 09/25/22 Status: Ordered Advair Diskus 500 mcg-50 mcg inhalation powder 1, inhalation, Inhalation, 2 times a day, rinse mouth and throat after use, # 60 each, Refills 11, Tot. Refills 11, Maintenance, 09/25/22 17:00:00 EDT, Inhaler, Route to Pharmacy Electronically, [id number], [facility]... Start Date: 09/25/22 Status: Ordered albuterol 0.083% inhalation solution 3 mL = 2.5 mg, Neb, Every 4 hours, PRN Wheezing/Shortness of Breath, # 100 each, 11 Refills, Maintenance, 12/26/22 8:14:00 EDT, Inhalation Solution, [facility], Partial fill upon patient request if the prescription is for a schedule II... Start Date: 12/26/22 Status: Ordered All Day Allergy 10 mg oral tablet 1 tablet, By Mouth, Daily, # 90 tablet, 3 Refills, Maintenance, 11/20/22 16:48:00 EDT, [facility], 163, cm, 11/20/22 16:00:00 EDT, Height, 83, kg, 02/11/22 19:19:00 EST, Dry Weight Start Date: 11/20/22 Status: Ordered amLODIPine 5 mg oral tablet 5 mg, 1, tablet, By Mouth, Daily, # 90 tablet, Refills 3, Tot. Refills 3, Maintenance, 04/29/22 11:56:00 EST, Route to Pharmacy Electronically, [facility], Partial fill upon patient request if the prescription is for a schedule II opio... Start Date: 04/29/22 Status: Ordered atorvastatin 40 mg oral tablet 1 tablet = 40 mg, By Mouth, Daily, # 90 tablet, 3 Refills, Maintenance, 09/25/22 16:58:00 EDT, Tablet, [facility]., Partial fill upon patient request if [...] Gm, 2 Refills, Maintenance, 12/26/22 8:13:00 EDT, [facility]., 15, APPLY TOPICALLY TO AFFECTED AREA TWO TIMES A DAY FOR TWO WEEKS, 163, cm, ... Start Date: 12/26/22 Status: Ordered docusate-senna 50 mg-187 mg oral tablet 2 tablet, By Mouth, 2 times a day, PRN Constipation, # 100 tablet, 11 Refills, Maintenance, 08/14/22 16:57:00 EDT, Tablet, [facility]., Partial fill upon patient request if [...] 3 Refills, Maintenance, 09/25/22 17:01:00 EDT, Tablet, [facility], Partial fill upon patient request if the prescription is for aschedule II opioid drug., 163, cm, 09/25/22 16:20:0... Start Date: 09/25/22 Status: Ordered ibuprofen 800 mg oral tablet 1, tablet, By Mouth, 3 times a day, PRN, # 90 tablet, Refills 1, Tot. Refills 1, Maintenance, NEEDED FOR PAIN, 10/22/22 15:19:00 EDT, Route to Pharmacy Electronically, [facility], 163, cm, 09/25/22 16:20:00 EDT, Height, 83, kg, 11/0... Start Date: 10/22/22 Status: Ordered Januvia 100 mg oral tablet 1 tablet, By Mouth, Daily, # 30 tablet, 11 Refills, Maintenance, 11/26/22 10:02:00 EDT, [facility], 163, cm, 11/20/22 16:00:00 EDT, Height, 83, kg, 02/11/22 19:19:00 EST, Dry Weight Start Date: 11/26/22 Status: Ordered lidocaine 5% topical film 1 patch, Topically, Daily, PRN Pain , Mild, remove after 12 hours, # 13 each, 5 Refills, Maintenance, 09/25/22 16:59:00 EDT, Film, [facility], Partial fill upon patient request if theprescription is for a schedule II opioid drug., 1 p... Start Date: 09/25/22 Status: Ordered lisinopril 20 mg oral tablet 20 mg, 1, tablet, By Mouth, Daily, # 90 tablet, Refills 3, Tot. Refills 3, Maintenance, 11/20/22 16:48:00 EDT, Route to Pharmacy Electronically, [facility], 163, cm, 11/20/22 16:00:00EDT, Height, 83, kg, 02/11/22 19:19:00 EST, Dry Weight Start Date: 11/20/22 Status: Ordered mirtazapine 30 mg oral tablet 1 tablet = 30 mg, By Mouth, Daily at bedtime, # 90 tablet, 1 Refills, Maintenance, 09/25/22 17:00:00 EDT, Tablet, [facility]., Partial fill upon patient request if the prescription is for a schedule II opioid drug., 163, cm, 09/25/22 16... Start Date: 09/25/22 Status: Ordered omeprazole 40 mg oral enteric coated capsule 1 capsule, By Mouth, Daily, PRN NEEDED, # 90 capsule, 1 Refills, Maintenance, 11/25/22 10:53:00 EDT, [facility], 163, cm, 11/20/22 16:00:00 EDT, Height, 83, kg, 02/11/22 19:19:00 EST, Dry Weight Start Date: 11/25/22 Status: Ordered oxyCODONE 15 mg oral tablet 1 tablet = 15 mg, By Mouth, Every 8 hours, PRN Pain , Severe, # 84 tablet, 0 Refills, Maintenance, 01/21/23 9:27:00 EDT, [facility]., Partial fill upon patient request if [...] 01/27/23 9:28:00 EDT, Route to Pharmacy Electronically, [facility] 163, cm, 11/20/22 16:00:00 EDT, Height, 83, kg... Start Date: 01/27/23 Status: Ordered traZODone 50 mg oral tablet 1/2 TO 1 TABLET, By Mouth, Daily at bedtime, # 30 tablet, Refills 5, Maintenance, 08/29/22 11:31:00EDT, Route to Pharmacy Electronically, [facility], 163, cm, 08/14/22 16:50:00 EDT, Height, 83, kg, 02/11/22 19:19:00 EST, Dry Weight Start Date: 08/29/22 Status: Ordered triamcinolone 55 mcg/inh nasal spray 1 sprays = 55 mcg, Nares, Both, Daily, # 1 each, 5 Refills, Maintenance, 08/14/22 16:59:00 EDT, [facility], Partial fill upon patient request if the prescription is for a schedule II opioid drug., 1 sprays Nares, Both Daily, 163, cm, 0... 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 Charlene Fabian [phone] Confirmed Active Syncope and collapse Confirmed Active Tobacco dependence Confirmed Active DM2 (diabetes mellitus, type 2) Confirmed 04/03/17 Active Incontinence of urine 5 Confirmed Active 1on polysomnogram 2seen on MRI 10/2016, rec repeat imaging in October 2017 pain managemnt team/ Dr Diop indicated they thought pain was fibromyalgia 4seen on CT Abd 09/18/16 at [facility], pending [place] 5urge and stress Social History [...] Care Nurse Name: Keily Ortega RN Position: [facility] RN Member Role: Primary Care Nurse Name: Graciela Munroe RN Position: [facility] RN Member Role: Primary Care Nurse Name: Nichole Pichardo RN Position: [facility] RN Member Role: Primary Care Nurse Name: Melvin Whitfield RN Position: [facility] AMB Nurse Member Role: Primary Care Nurse Name: Phuong Berkowitz RN Position: [facility] RN Member Role: Primary Care Nurse Name: Pura Walker MD Position: [facility] Physician - Primary Care Member Role: PCP Address: Address: [address] [place] [address] [id number] Name: Joselyn Rain RN Position: [facility] Hospital Range Aid Member Role: Primary Care Nurse Care Team Related Persons Name: IRA ROMERO Address: home [address] [place] [address] Name: JHON LARSON Address: home [address] [place] [address] Name: JHON LARSON Address: home [address] [place] [address] Name: GALO CATALAN Name: NANCY CATALAN Address: home [address] [place] [address]
--- OUTSIDE RECORDS SUMMARY | 2023-03-25 08:28 | XMS_ITS | Continuity of Care Document ---
Author Name Unknown Organization [facility] Address [address] [place] [address]- Care Team Providers Care Manager Quality Name Role Phone Richardson QUIROZ, Leonora Pérez Primary Care Physician Encounter [facility] Date(s): 11/01/21 - 12/01/21 [facility] [address] [place], [place] [address] Allergies, Adverse Reactions, Alerts Substance Reaction Severity Status morphine Active gabapentin swelling Active Lyrica dysphagia Active SEROquel body swelling - all over Act tony MetFORMIN Hydrochloride ER black tarry stool Active Immunizations Given and Recorded Vaccine Date Status Refusal Reason SARS-CoV-2 mRNA (sydhqlp-vdtv-eceqy) vax 05/14/21 Given influenza virus vaccine, inactivated [...] 10/22/21 9:23:00 EDT, Route to Pharmacy Electronically, [facility], Partial fill uponpatient request if the prescription is for a schedu... Start Date: 10/22/21 Status: Ordered Advair Diskus 500 mcg-50 mcg inhalation powder 1, puffs, Inhalation, 2 times a day, j45.909, # 1 each, Refills 5, Tot. Refills 5, Maintenance, 05/15/21 9:20:00 EST, Powder, Route to Pharmacy Electronically, [id number], [facility], 162.5, cm, 05/10/21 14:47... Start Date: 05/15/21 Status: Ordered albuterol 0.083% inhalation solution 3 mL = 2.5 mg, Inhalation, Every 4 hours, PRN for wheezing, # 100 each, 2 Refills, Maintenance, 11/22/21 12:30:00 EDT, Solution, [facility], 162, cm, 11/14/21 11:01:00 EDT, Height, 86, kg, 07/23/21 0:58:00 EDT, Dry Weight Start Date: 11/22/21 Status: Ordered amitriptyline 25 mg oral tablet 25 mg, 1, tablet, By Mouth, Daily at bedtime, # 30 tablet, Refills 2, Tot. Refills 2, Maintenance, 08/30/21 12:06:00 EDT, [facility], [facility] [...] 5 Refills, Maintenance, 08/28/21 9:07:00 EDT, Tablet, [facility]., 162, cm, 08/22/21 9:46:00 EDT, [...] 1 Refills, Maintenance, 07/08/21 9:45:00 EDT, Cream, [facility]., PLEASE CANCEL ESTRADIOL VAGINAL CREAM, 1 [...] tablet, 0 Refills, Maintenance, 10/24/2219:09:00 EDT, Tablet, [facility] Partial fill upon patient request if the prescription is for a schedule II opioid drug., 2 tablet By... Start Date: 10/23/21 Status: Ordered duloxetine 60 mg oral enteric coated capsule 2 capsule = 120 mg, By Mouth, Daily, # 60 capsule, 5 Refills, Maintenance, 11/14/21 11:41:00 EDT, Capsule, [facility] Partial fill upon patient request. NOT INCREASED DOSE. Please cancel all other Duloxetine scripts, 162, cm, 11/14/21... Start Date: 11/14/21 Status: Ordered empagliflozin 10 mg oral tablet 1 tablet = 10 mg, By Mouth, Daily in AM, # 30 tablet, 5 Refills, Maintenance, 08/28/21 9:07:00 EDT,Tablet, [facility] Partial fill upon patient request if the prescription is for a schedule II opioid drug., 162, cm, 08/22/21 9:46:00... Start Date: 08/28/21 Status: Ordered fluticasone 50 mcg/inh nasal spray See Instructions, USE 1 SPRAY IN BOTH NOSTRILS 2 TIMES A DAY, # 16 mL, 1 Refills, 07/08/21 9:44:00 EDT, [facility] 30, USE 1 SPRAY [...] Mouth, Daily, # 30 tablet, 5 Refills, [facility], 162, cm, 11/14/21 11:01:00EDT, Height, 86, kg, 07/23/21 0:58:00 EDT, Dry Weight Start Date: 11/19/21 Status: Ordered ibuprofen 800 mg oral tablet 800 mg, 1, tablet, By Mouth, 3 times a day, PRN, # 90 tablet, Refills 1, Tot. Refills 1, Maintenance, Pain , Mild, 10/31/21 13:59:00 EDT, Route to Pharmacy Electronically, [facility],please fill 800mg instead of 600mg, 162, cm, [...] 3 Refills, Maintenance, 06/18/21 21:04:00 EDT, Tablet, [facility], 162.5, cm, 06/17/21 13:04:00 EDT, Height, 85.8, kg, 06/04/21 10:03:00 EST, Dry Weight Start Date: 06/18/21 Status: Ordered Lantus 100 u/ml subcutaneous solution = 50 units, Subcutaneous Injection, Daily, # 15 mL, 5 Refills, Maintenance, 07/08/21 9:38:00 EDT, Solution, [facility], ;, 162.5, cm, 07/08/21 8:49:00 EDT, Height, 85.8, kg, 06/04/21 10:03:00 EST, Dry Weight Start Date: 07/08/21 Status: Ordered lisinopril 20 mg oral tablet 20 mg, 1, tablet, By Mouth, Daily, # 90 tablet, Refills 3, Tot. Refills 3, Maintenance, 08/28/21 9:07:00 EDT, Route to Pharmacy Electronically, [facility], 162, cm, 08/22/21 9:46:00 EDT, Height, 86, kg, 07/23/21 0:58:00 EDT, Dry Weight Start Date: 08/28/21 Status: Ordered Melatonin 10 mg oral tablet 1 tablet = 10 mg, By Mouth, Daily at bedtime, # 30 each, 5 Refills, Maintenance, 11/14/21 11:42:00 EDT, [facility], Partial [...] PRN NEEDED, # 30 capsule, 2 Refills, [facility], 162, cm, 09/06/21 13:04:00 EDT, Height, 86, kg, 07/23/21 0:58:00 EDT, Dry Weight Start Date: 10/02/21 Status: Ordered OxyCONTIN 15 mg oral tablet, extended release 1 tablet = 15 mg, By Mouth, Every 12 hours, # 56 tablet, 0 Refills, Maintenance, 11/26/21 8:00:00 EDT, ER Tablet, [facility], Partial fill upon patient request if the prescription is for a schedule II opioid drug. For fill 11/26/21, dos... Start Date: 11/26/21 Stop Date: 12/24/21 Status: Ordered OxyCONTIN 30 mg oral tablet, extended release 1 tablet = 30 mg, By Mouth, Every 12 hours, # 56 tablet, 0 Refills, Maintenance, 10/29/21 17:34:00 EDT, ER Tablet, [facility]/pharmacy #[id number], Partial fill upon patient request if the prescription is for a schedule II opioid drug. ON contract at [facility], 30mg E... Start Date: 10/29/21 Stop Date: 11/26/21 Status: Ordered Senna 8.6 mg oral tablet 8.6 mg, 1, tablet, By Mouth, Daily at bedtime, # 100 tablet, Refills 11, Tot. Refills 11, Maintenance, 07/08/21 9:39:00 EDT, Route to Pharmacy Electronically, [facility], 162.5, cm, 07/08/21 8:49:00 EDT, Height, 85.8, kg, 06/04/21 10:0... Start Date: 07/08/21 Status: Ordered Tessalon Perles 100 mg oral capsule 1 capsule = 100 mg, By Mouth, 3 times a day, for 10 days, # 30 capsule, 0 Refills, Acute 12/02/21 13:25:00 EDT, 11/22/21 13:25:00 EDT, Capsule, [facility], Partial fill upon patient request if the prescription is for a schedule II opio... 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
--- OUTSIDE RECORDS SUMMARY | 2023-03-25 08:28 | XMS_ITS | Continuity of Care Document ---
Author Name Unknown Organization [facility] Address [address] [place] [address]- Care Team Providers Care Caster Helper Name Role Phone Richardson QUIROZ, Leonora Pérez Primary Care Physician Encounter [facility] Date(s): 07/15/21 - 08/14/21 [facility] [address] [place], [place] [address] Allergies, Adverse Reactions, Alerts Substance Reaction Severity Status morphine Active gabapentin swelling Active Lyrica dysphagia Active SEROquel body swelling - all over Act tony MetFORMIN Hydrochloride ER black tarry stool Active Immunizations Given and Recorded Vaccine Date Status Refusal Reason SARS-CoV-2 mRNA ([id number]-vibcl) vax 05/14/21 Given influenza virus vaccine, inactivated [...] 07/18/21 15:15:00 EDT, Route to Pharmacy Electronically, [facility], Partial fill upon patient request if the prescription is for a sched... Start Date: 07/18/21 Status: Ordered Advair Diskus 500 mcg-50 mcg inhalation powder 1, puffs, Inhalation, 2 times a day, j45.909, # 1 each, Refills 5, Tot. Refills 5, Maintenance, 05/15/21 9:20:00 EST, Powder, Route to Pharmacy Electronically, [id number], [facility], 162.5, cm, 05/10/21 14:47... Start Date: 05/15/21 Status: Ordered albuterol 0.083% inhalation solution 3 mL = 2.5 mg, Inhalation, Every 4 hours, PRN for wheezing, # 100 each, 2 Refills, Maintenance, 05/15/21 9:30:00 EST, Solution, [facility], 162.5, cm, 05/10/21 14:47:00 EST, Height, 90.9, kg, 02/02/21 5:59:00 EDT, Dry Weight Start Date: 05/15/21 Status: Ordered amitriptyline 25 mg oral tablet 25 mg, 1, tablet, By Mouth, Daily at bedtime, Dose decrease, # 30 tablet, Refills 0, Tot. Refills 0, Maintenance, 08/01/21 15:07:00 EDT, Route to Pharmacy Electronically, [facility], Partial fill upon patient request if the prescriptio... Start Date: 08/01/21 Status: Ordered atorvastatin 40 mg oral tablet 1 tablet = 40 mg, By Mouth, Daily, # 90 tablet, 3 Refills, Maintenance, 07/08/21 9:47:00 EDT, Tablet, [facility], Partial fill upon patient request if the prescription is for a schedule II opioid drug., 162.5, cm, 07/08/21 8:49:00 EDT,... Start Date: 07/08/21 Status: Ordered cetirizine 10 mg oral tablet 1 tablet = 10 mg, By Mouth, Daily, # 30 tablet, 5 Refills, Maintenance, 07/08/21 9:44:00 EDT, Tablet, [facility]., 162.5, cm, 07/08/21 8:49:00 EDT, Height, 85.8, kg, 06/04/21 10:03:00 EST, Dry Weight Start Date: 07/08/21 Status: Ordered cholecalciferol 5000 intl units oral capsule 1 capsule = 125 mcg, By Mouth, Daily, with food, # 100 capsule, 2 Refills, Maintenance, 02/11/21 11:17:00 EST, Capsule, [facility]/pharmacy #[id number], Partial [...] 1 Refills, Maintenance, 07/08/21 9:45:00 EDT, Cream, [facility], PLEASE CANCEL ESTRADIOL VAGINAL CREAM, 1 [...] 5 Refills, Maintenance, 02/18/21 15:09:00 EST, Capsule, [facility]/pharmacy #[id number], Partial fill upon patient request. NOT INCREASED DOSE, 155, cm, 02/18/2114:54:00 EST, Height, 90.9, kg, 02/02/21 5:59:00 ED... Start Date: 02/18/21 Status: Ordered empagliflozin 10 mg oral tablet 1 tablet = 10 mg, By Mouth, Daily in AM, # 30 tablet, 5 Refills, Maintenance, 07/08/21 9:43:00 EDT,Tablet, [facility], Partial fill upon patient request if the prescription is for a schedule II opioid drug., 162.5, cm, 07/08/21 8:49:0... Start Date: 07/08/21 Status: Ordered fluticasone 50 mcg/inh nasal spray See Instructions, USE 1 SPRAY IN BOTH NOSTRILS 2 TIMES A DAY, # 16 mL, 1 Refills, 07/08/21 9:44:00 EDT, [facility]., 30, USE 1 SPRAY IN BOTH NOSTRILS 2 TIMES A DAY, 162.5, cm, :49:00 EDT, Height, 85.8, kg, 06/04/21 10:03:00 ES... Start Date: 07/08/21 Status: Ordered hydrochlorothiazide 12.5 mg oral tablet 1 tablet = 12.5 mg, By Mouth, Daily, TAKE 1 TABLET BY MOUTH EVERY DAY, # 30 capsule, 2 Refills, Maintenance, 05/15/21 9:20:00 EST, [facility]., 162.5, cm, 05/10/21 14:47:00 EST, [...] Refills, Maintenance, 06/18/21 21:04:00 EDT, Tablet, [facility]., 162.5, cm, 06/17/21 13:04:00 EDT, Height, 85.8, kg, 06/04/21 10:03:00 EST, Dry Weight Start Date: 06/18/21 Status: Ordered Lantus 100 u/ml subcutaneous solution = 50 units, Subcutaneous Injection, Daily, # 15 mL, 5 Refills, Maintenance, 07/08/21 9:38:00 EDT, Solution, [facility]., ;, 162.5, cm, 07/08/21 8:49:00 EDT, Height, 85.8, kg, 06/04/21 10:03:00 EST, Dry Weight Start Date: 07/08/21 Status: Ordered lisinopril 20 mg oral tablet 20 mg, 1, tablet, By Mouth, Daily, # 90 tablet, Refills 3, Tot. Refills 3, Maintenance, 04/12/21 13:24:00 EST, Route to Pharmacy Electronically, [facility]/pharmacy #[id number], 162.5, cm, 03/22/21 14:58:00 EST, Height, 90.9, kg, 02/02/21 5:59:00 EDT, Dry Weight Start Date: 04/12/21 Status: Ordered meloxicam 7.5 mg oral tablet 1 tablet = 7.5 mg, By Mouth, Daily, # 30 tablet, 1 Refills, Maintenance, 06/24/21 16:30:00 EDT, Tablet, [facility] Partial [...] Refills, Maintenance, 05/09/21 10:45:00 EST, EC Capsule, [facility], 162.5, cm, 03/22/21 14:58:00 EST, Height, 90.9,kg, 02/02/21 5:59:00 EDT, Dry Weight Start Date: 05/09/21 Status: Ordered OxyCONTIN 15 mg oral tablet, extended release 1 tablet = 15 mg, By Mouth, Every 12 hours, # 56 tablet, 0 Refills, Maintenance, 08/03/21 7:30:00 EDT, ER Tablet, [facility], Partial fill upon patient request if [...] 07/08/21 9:39:00 EDT, Route to Pharmacy Electronically, [facility], 162.5, cm, 07/08/21 8:49:00 EDT, Height, 85.8, kg, 06/04/21 10:0... Start Date: 07/08/21 Status: Ordered tiZANidine 4 mg oral tablet 4 mg, 1, tablet, By Mouth, Every 8 hours, PRN, # 84 tablet, Refills 1, Tot. Refills 1, Maintenance,Spasm, 06/24/21 19:16:00 EDT, Route to Pharmacy Electronically, [facility], 162.5, cm, 06/24/21 15:35:00 EDT, Height, [...] 0 Refills, Maintenance, 08/01/21 14:59:00 EDT, Tablet, [facility]... 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
--- OUTSIDE RECORDS SUMMARY | 2023-03-25 08:28 | XMS_ITS | Continuity of Care Document ---
Author Name Unknown Organization [facility] Address [address] [place] [address]- Care Team Providers Care Operations Research Group Manager Name Role Phone Richardson MONITORING ANALYST, Leonora Pérez Primary Care Physician Encounter [facility] Date(s): 01/23/22 - 02/22/22 [facility] [address] [place] [address]- Allergies, Adverse Reactions, Alerts Substance Reaction Severity Status morphine Active gabapentin swelling Active Lyrica dysphagia Active SEROquel body swelling - all over Act tony MetFORMIN Hydrochloride ER black tarry stool Active Immunizations Given and Recorded Vaccine Date Status Refusal Reason [id number] 12y+ bivalent booster vax 01/30/22 Given influenza virus vaccine, inactivated 01/30/22 Give n influenza virus vaccine, inactivated 02/04/21 Give n influenza virus vaccine, inactivated 1 04/19/20 Gi tonio influenza virus vaccine, inactivated 03/12/19 Give n influenza virus vaccine, inactivated 01/19/18 Give n influenza virus vaccine, inactivated 02/16/17 Give n pneumococcal 20-valent conjugate vaccine 12/26/21 Given SARS-CoV-2 mRNA ([id number]) vax 05/14/21 Given SARS-CoV-2 (COVID-19) mRNA BNT-162b2 vac 2 10/19/20 Given SARS-CoV-2 (COVID-19) mRNA BNT-162b2 vac 09/28/20 Given pneumococcal 23-valent vaccine 03/12/19 Given tetanus/diphtheria/pertussis, acel(Tdap) 07/29/13 Given 1Early/Late Reason: Early/Late Reason: Patient Not Available/Off Unit 2? Unknown: Resend to [facility]. Resend to [facility]. Medications acetaminophen 325 mg oral tablet 650 mg, 2, tablet, By Mouth, 3 times a day, # 100 tablet, Refills 1, Tot. Refills 1, Maintenance, 10/22/21 9:23:00 EDT, Route to Pharmacy Electronically, [facility], Partial fill uponpatient request if the [...] 08/30/21 12:06:00 EDT, Route to Pharmacy Electronically, [facility], Partial fill upon patient request if the prescription is for a sche... Start Date: 08/30/21 Status: Ordered amLODIPine 5 mg oral tablet 5 mg, 1, tablet, By Mouth, Daily, # 90 tablet, Refills 0, Tot. Refills 0, Maintenance, 01/30/22 10:50:00 EDT, Route to Pharmacy Electronically, [facility], Partial fill upon patient request if the prescription is for a schedule II opio... Start Date: 01/30/22 Status: Ordered cetirizine 10 mg oral tablet 1 tablet = 10 mg, By Mouth, Daily, # 30 tablet, 5 Refills, Maintenance, 08/28/21 9:07:00 EDT, Tablet, [facility], 162, cm, 08/22/21 9:46:00 EDT, [...] 11 Refills, Maintenance, 02/21/22 10:35:00 EST, Tablet, [facility] Partial fill upon patient request if the prescription is for a schedule II opioid drug., 2 tablet By... Start Date: 02/21/22 Status: Ordered duloxetine 60 mg oral enteric coated capsule 2 capsule = 120 mg, By Mouth, Daily, # 60 capsule, 5 Refills, Maintenance, 11/14/21 11:41:00 EDT, Capsule, [facility] Partial fill upon patient request. NOT INCREASED DOSE. Please cancel all other Duloxetine scripts, 162, cm, 11/14/21... Start Date: 11/14/21 Status: Ordered empagliflozin 10 mg oral tablet 1 tablet = 10 mg, By Mouth, Daily in AM, # 30 tablet, 5 Refills, Maintenance, 02/20/22 12:04:00 EST, Tablet, [facility] Partial fill upon patient request if the prescription is for aschedule II opioid drug., 163, cm, 02/11/22 19:19:0... Start Date: 02/20/22 Status: Ordered fluticasone 50 mcg/inh nasal spray See Instructions, USE 1 SPRAY IN BOTH NOSTRILS 2 TIMES A DAY, # 16 mL, 1 Refills, 07/08/21 9:44:00 EDT, [facility] 30, USE 1 SPRAY [...] 01/06/22 12:22:00 EDT, Route to Pharmacy Electronically, [facility],please fill 800mg instead of 600mg, 163, cm, ... Start Date: 01/06/22 Status: Ordered Januvia 100 mg oral tablet 1 tablet = 100 mg, By Mouth, Daily, # 90 tablet, 3 Refills, Maintenance, 06/18/21 21:04:00 EDT, Tablet, [facility]., 162.5, cm, 06/17/21 13:04:00 EDT, Height, 85.8, kg, 06/04/21 10:03:00 EST, Dry Weight Start Date: 06/18/21 Status: Ordered Lantus 100 u/ml subcutaneous solution = 50 units, Subcutaneous Injection, Daily, # 15 mL, 2 Refills, Maintenance, 01/06/22 12:07:00 EDT, Solution, [facility], ;, 163, cm, 01/03/22 11:20:00 EDT, Height, 84, kg, 01/02/22 19:36:00 EDT, Dry Weight Start Date: 01/06/22 Status: Ordered lidocaine 5% topical film 1 patch, Topically, Daily, PRN Pain , Mild, remove after 12 hours, # 13 each, 5 Refills, Maintenance, 12/26/21 10:37:00 EDT, Film, [facility], Partial fill upon patient request if theprescription is for a schedule II opioid drug., 1 p... Start Date: 12/26/21 Status: Ordered lisinopril 20 mg oral tablet 20 mg, 1, tablet, By Mouth, Daily, # 90 tablet, Refills 3, Tot. Refills 3, Maintenance, 08/28/21 9:07:00 EDT, Route to Pharmacy Electronically, [facility]., 162, cm, 08/22/21 9:46:00 EDT, Height, 86, kg, 07/23/21 0:58:00 EDT, Dry Weight Start Date: 08/28/21 Status: Ordered Melatonin 10 mg oral tablet 1 tablet = 10 mg, By Mouth, Daily at bedtime, # 30 each, 5 Refills, Maintenance, 11/14/21 11:42:00 EDT, [facility], Partial fill upon patient request [...] PRN NEEDED, # 30 capsule, 2 Refills, [facility], 162, cm, 09/06/21 13:04:00 EDT, Height, 86, kg, 07/23/21 0:58:00 EDT, Dry Weight Start Date: 10/02/21 Status: Ordered oxyCODONE 15 mg oral tablet 1 tablet = 15 mg, By Mouth, 3 times a day, for 28 days, On contract at [facility]. Switching regimen and disposing of current tablets in exchange for these, # 84 tablet, 0 Refills, Acute 02/27/22 10:25:00 EST, 01/30/22 10:25:00 EDT, [facility]... Start Date: 01/30/22 Stop Date: 02/27/22 [...] 07/08/21 9:39:00 EDT, Route to Pharmacy Electronically, [facility]., 162.5, cm, 07/08/21 8:49:00 EDT, Height, 85.8, kg, 06/04/21 10:0... Start Date: 07/08/21 Status: Ordered tiZANidine 4 mg oral capsule 1 capsule = 4 mg, By Mouth, 3 times a day, # 90 capsule, 0 Refills, Maintenance, 02/06/22 15:53:00 EDT, [facility], Partial fill upon patient request if the prescription is for a schedule II opioid drug., 163, cm, 02/06/22 15:10:00 EDT... Start Date: 02/06/22 Stop Date: 03/08/22 Status: Ordered Trulicity Pen 3 mg/0.5 mL subcutaneous solution See Instructions, INJECT 0.5 ML SUBCUTANEOUSLY EVERY WEEK. ROTATE INJECTION SITES, # 2 mL, 5 Refills, Maintenance, 02/05/22 19:58:00 EDT, [facility], 163, cm, 02/05/22 11:00:00 EDT, Height,84, [...] Confirmed Active Panic attacks Confirmed Active BHN/BHCP Grader Marker Charlene Fabian [phone] Confirmed Active Syncope and collapse Confirmed Active Tobacco dependence Confirmed Active DM2 (diabetes mellitus, type 2) Confirmed 04/03/17 Active Incontinence of urine 3 Confirmed Active 1seen on MRI 10/2016, rec repeat imaging in October [address] [place]18[place] [facility] 3urge and stress Social History Social History Type Response Smoking Status Current every day sm oker; Type: Cigarettes; Tobacco use times per day: 1/2 ppd; entered on: 12/24/17 Sex Patient Care team information Care Team Personnel Name: Sindy Bernal RN Position: [facility] RN Member Role: Primary Care Nurse Name: Graciela Thrasher RN Position: [facility] SN RN Member Role: Primary Care Nurse Name: Stevie Angel RN Position: [facility] RN Member Role: Primary Care Nurse Name: Leonora Bai NP Position: [facility] PCO Associate Professional Member Role: PCP Address: Address: [address] [place] [id number] Name: Keily Ortega RN Position: [facility] RN Member Role: Primary Care Nurse Name: Graciela Munroe RN Position: [facility] RN Member Role: Primary Care Nurse Name: Nichole Pichardo RN Position: [facility] RN Member Role: Primary Care Nurse Name: Melvin Whitfield RN Position: [facility] PCO RN Member Role: Primary Care Nurse Name: Phuong Berkowitz RN Position: [facility] RN Member Role: Primary Care Nurse Name: Joselyn Rain RN Position: [facility] Desulfurizer Operator Member Role: Primary Care Nurse Care Team Related Persons Name: IRA ROMERO Address: home [address] [place] [address] Name: JHON LARSON Address: home [address] [place] [address] Name: JHON LARSON Address: home [address] [place] [address] Name: GALO CATALAN Name: NANCY CATALAN Address: home [address] [place] [address]
--- OUTSIDE RECORDS SUMMARY | 2023-03-25 08:28 | XMS_ITS | Continuity of Care Document ---
Author Name Unknown Organization [facility] Address [address] [place] [address]- Care Team Providers Care Fuller Brush Worker Name Role Phone Richardson QUIROZ, Leonora Pérez Primary Care Physician Encounter [facility] Date(s): 10/27/19 - 10/28/[address] [address]- [facility] Discharge Disposition: A-D/C Home Attending Physician: Shavon GERARDO, Paty Porter Admitting Physician: Shavon GERARDO, Paty Porter Referring Physician: Not on Staff, Referring MD [...] 12:48:00 EST, Powder, Route to Pharmacy Electronically, [id number], [facility]/pharmacy #[id number], 158, cm, 04/26/19 [...] tablet, 5 Refills, Maintenance, 10/06/19 7:45:00EDT, Tablet, [facility]/pharmacy #[id number], 160, cm, 09/28/19 [...] 5 Refills, Maintenance, 04/19/19 15:40:00 EST, Tablet, [facility]/pharmacy #[id number], 158, cm, 04/04/19 [...] 3 Refills, Maintenance, 09/02/19 10:23:00 EDT, Tablet, [facility]/pharmacy #[id number], PLEASE CANCEL LISINOPRIL, [...] 11/01/19 7:00:00 EDT, 10/27/19 7:30:00 EDT, Tablet, [facility]/... Start Date: 10/27/19 Stop Date: 11/01/19 Status: [...] 5 Refills, Maintenance, 04/28/19 16:05:00 EST, Tablet, [facility]/pharmacy #[id number], 158, cm, 04/28/19 14:51:00 EST, Height, 82, kg, 04/01/19 16:10:00 EST, Dry Weight Start Date: 04/28/19 Status: Ordered Lantus 100 u/ml subcutaneous solution = 13 units, Subcutaneous Injection, Daily, # 10 mL, 11 Refills, Maintenance, 09/05/19 14:10:00 EDT,Solution, [facility]/pharmacy #[id number], 160, cm, 07/22/19 15:08:00 EDT, Height, 86.8, kg, 07/22/19 15:13:00 EDT, Dry Weight Start Date: 09/05/19 Status: Ordered lidocaine 5% topical film 1 patch, Topically, Daily, For chronic radicular back pain, # 30 patch, 5 Refills, Maintenance, 06/27/19 14:37:00 EDT, [facility]/pharmacy #[id number], 1 patch [...] 6 Refills, Maintenance, 09/12/19 14:39:00 EDT, Tablet, [facility]/pharmacy #[id number], 160, cm, 07/22/19 15:08:00 [...] ... Start Date: 10/06/19 Status: Ordered Pen Sagle, 31 G x 5 mm BD Ultra [...] 05/30/19 18:52:00 EST, Route to Pharmacy Electronically, [facility]/pharmacy #[id number], 160, cm, 05/30/19 18:08:00 EST, Height, 88.9, kg, 05/23/19... Start Date: 05/30/19 Status: Ordered predniSONE 20 mg oral tablet 2 tablet = 40 mg, By Mouth, Daily, for 4 days, To begin taking the morning of 10/28/19, # 8 tablet, 0 Refills, Acute 10/31/19 23:53:00 EDT, 10/27/19 23:53:00 EDT, Tablet, [facility]/pharmacy #[id number], 163, cm, 10/27/19 21:10:00 EDT, Height, [...] each, 5 Refills, Maintenance, 04/26/19 10:30:00 EST, [facility]/pharmacy #[id number], 158, cm, 04/26/19 9:58:00 EST, Height, 82, kg, 04/01/19 16:10:00 EST, Dry Weight Start Date: 04/26/19 Status: Ordered tiZANidine 4 mg oral tablet 4 mg, 1, tablet, By Mouth, Every 8 hours, # 90 tablet, Refills 1, Tot. Refills 1, Maintenance, 09/02/19 10:12:00 EDT, Route to Pharmacy Electronically, [facility]/pharmacy #[id number], 160, cm, 07/22/19 15:08:00 [...] [address] Abd 09/18/16 at [facility], pending MRI 6surgically repaired July 2015 Dr. Sg MENDEZ 7urge and stress Vital Signs Most recent to oldest [Reference Range]: 1 2 3 Height 163 cm (10/28/19 12:02 AM) 163 cm (10/27/19 9:10 PM) Weight 75 kg (10/28/19 12:02 AM) 75 kg (10/27/19 9:10 PM) Oxygen Saturation [94-100 %] 98 % (10/28/19 12:02 AM) 99 % (10/27/19 9:10 PM) Pulse Rate [55-90 bpm] 93 bpm *H* (10/28/19 12:02 AM) 93 bpm *H* (10/27/19 9:10 PM) Body Mass Index [18.5-24.99] 28.23 *H* (10/28/19: AM) Blood Pressure [90-138/55-84 mm Hg] 127/81mm Hg (10/28/19 12:02 AM) 132/88mm Hg (10/27/19 9:10 PM) Respiratory Rate [16-30 br/min] 16 br/min (10/28/19 12:02 AM) 16 br/min (10/28/19 12:02 AM) 17 br/min (10/27/19 9:10 PM) Temperature [96.8-100.4 DegF] 98.5 DegF (10/27/19 9:10 PM) Mode of Delivery (Oxygen) Room air (10/28/19 12:02 AM) Room air (10/27/19 9:10 PM) Blood pressure sites Arm, left (10/28/19 12:02 AM) Arm, left (10/27/19 9:10 PM) Temperature Route Oral (10/27/19 9:10 PM) Dry Weight 75 kg (10/28/19 12:02 AM) 75 kg (10/27/19 9:10 PM) Weight Obtained Via Patient/family state d (10/27/19 9:10 PM) Dry Weight Obtained Via Patient/family s tated (10/27/19 9:10 PM) Social History Social History Type Response Tobacco Use: Pt states she q uit smoking 1 week ago. Sex Female
--- OUTSIDE RECORDS SUMMARY | 2023-03-25 08:29 | XMS_ITS | Continuity of Care Document ---
Author Name Unknown Organization [facility] Address [address] [place] [address]- Care Team Providers Care Posting Clerk Name Role Phone Richardson CUTTER HELPER, Leonora Pérez Primary Care Physician [phone] Encounter [facility] Date(s): 08/25/22 - 09/24/22 [facility] [address] [place] [address]- Allergies, Adverse Reactions, Alerts Substance Reaction Severity Status morphine Active gabapentin swelling Active Lyrica dysphagia Active MetFORMIN Hydrochloride ER black tarry stool Active SEROquel body swelling - all over Act tony Immunizations Given and Recorded Vaccine Date Status Refusal Reason [id number] 12y+ bivalent booster vax 01/30/22 Given influenza virus vaccine, inactivated 01/30/22 Give n influenza virus vaccine, inactivated 02/04/21 Give n influenza virus vaccine, inactivated 1 04/19/20 Gi tonio influenza virus vaccine, inactivated 03/12/19 Give n influenza virus vaccine, inactivated 01/19/18 Give n influenza virus vaccine, inactivated 02/16/17 Give n pneumococcal 20-valent conjugate vaccine 12/26/21 Given SARS-CoV-2 mRNA ([id number]-rlzyc) vax 05/14/21 Given SARS-CoV-2 (COVID-19) mRNA BNT-162b2 [...] 10/22/21 9:23:00 EDT, Route to Pharmacy Electronically, [facility], Partial fill uponpatient request if the [...] tablet, 1 Refills, Maintenance, 07/25/22 12:30:00 EDT, [facility] 163, cm, 07/11/22 14:19:00 EDT, Height, 83, kg, 02/11/22 19:19:00 EST, Dry Weight Start Date: 07/25/22 Status: Ordered amLODIPine 5 mg oral tablet 5 mg, 1, tablet, By Mouth, Daily, # 90 tablet, Refills 3, Tot. Refills 3, Maintenance, 04/29/22 11:56:00 EST, Route to Pharmacy Electronically, [facility], Partial fill upon patient request if the prescription is for a schedule II opio... Start Date: 04/29/22 Status: Ordered cholecalciferol 5000 intl units oral capsule 1 capsule = 125 mcg, By Mouth, Daily, with food, # 100 capsule, 2 Refills, Maintenance, 02/11/21 11:17:00 EST, Capsule, [facility]/pharmacy #[id number], Partial fill upon patient request if the prescription is for a schedule II opioid drug., 155, cm, 02/11/21 8:53... Start Date: 02/11/21 Status: Ordered clonazePAM 0.5 mg oral tablet 1 tablet = 0.5 mg, By Mouth, 2 times a day, # 60 tablet, 0 Refills, Maintenance, 07/25/22 17:58:00 EDT[facility] fill upon patient request [...] Gm, 1 Refills, Maintenance, 09/03/22 14:02:00 EDT, [facility], 15, APPLY TOPICALLY TO AFFECTED AREA TWO TIMES A DAY,163, cm, 08/14/22 16:50:00 EDT, Height, 83, kg, 11/... Start Date: 09/03/22 Status: Ordered docusate-senna 50 mg-187 mg oral tablet 2 tablet, By Mouth, 2 times a day, PRN Constipation, # 100 tablet, 11 Refills, Maintenance, 08/14/22 16:57:00 EDT, Tablet, [facility] Partial fill upon patient request if the prescription is for a schedule II opioid drug., 2 tablet By... Start Date: 08/14/22 Status: Ordered duloxetine 60 mg oral enteric coated capsule 2 capsule = 120 mg, By Mouth, Daily, # 60 capsule, 5 Refills, Maintenance, 05/26/22 17:03:00 EST, Capsule, [facility] Partial fill upon patient request. NOT INCREASED DOSE. Please cancel all other Duloxetine scripts, 163, cm, 05/19/22... Start Date: 05/26/22 Status: Ordered empagliflozin 10 mg oral tablet 1 tablet = 10 mg, By Mouth, Daily in AM, # 30 tablet, 5 Refills, Maintenance, 02/20/22 12:04:00 EST, Tablet, [facility], Partial fill upon patient request if the prescription is for aschedule II opioid drug., 163, cm, 02/11/22 19:19:0... Start Date: 02/20/22 Status: Ordered ibuprofen 800 mg oral tablet 1, tablet, By Mouth, 3 times a day, PRN, # 90 tablet, Refills 1, Tot. Refills 1, Maintenance, NEEDED FOR PAIN, 07/11/22 15:09:00 EDT, Route to Pharmacy Electronically, [facility], 163, cm, 07/11/22 14:19:00 EDT, Height, 83, kg, 110... Start Date: 07/11/22 Status: Ordered Lantus 100 u/ml subcutaneous solution = 50 units, Subcutaneous Injection, Daily, # 15 mL, 2 Refills, Maintenance, 01/06/22 12:07:00 EDT, Solution, [facility], ;, 163, cm, 01/03/22 11:20:00 EDT, Height, 84, kg, 01/02/22 19:36:00 EDT, Dry Weight Start Date: 01/06/22 Status: Ordered lidocaine 5% topical film 1 patch, Topically, Daily, PRN Pain , Mild, remove after 12 hours, # 13 each, 5 Refills, Maintenance, 04/29/22 11:56:00 EST, Film, [facility], Partial fill upon patient request if theprescription is for a schedule II opioid drug., 1 p... Start Date: 04/29/22 Status: Ordered lisinopril 20 mg oral tablet 20 mg, 1, tablet, By Mouth, Daily, # 90 tablet, Refills 1, Tot. Refills 1, Maintenance, 07/25/22 12:31:00 EDT, Route to Pharmacy Electronically, [facility], 163, cm, 07/11/22 14:19:00EDT, Height, 83, [...] 30 capsule, 2 Refills, 08/26/22 13:27:00 EDT, [facility], 163, cm, 08/14/22 16:50:00 EDT, Height, 83, kg, 02/11/22 19:19:00 EST, Dry Weight Start Date: 08/26/22 Status: Ordered oxyCODONE 15 mg oral tablet 1 tablet = 15 mg, By Mouth, 3 times a day, on contract at [facility] [address], # 84 tablet, 0 Refills, Maintenance, 08/26/22 13:21:00 EDT, [facility], Partial fill upon patient request if [...] capsule, 0 Refills, Maintenance, 08/26/22 13:22:00 EDT, [facility], 163, cm, 08/14/22 16:50:00 EDT, Height, 83, kg, ... Start Date: 08/26/22 Status: Ordered traZODone 50 mg oral tablet 1/2 TO 1 TABLET, By Mouth, Daily at bedtime, # 30 tablet, Refills 5, Maintenance, 08/29/22 11:31:00EDT, Route to Pharmacy Electronically, [facility], 163, cm, 08/14/22 16:50:00 EDT, Height, 83, kg, 02/11/22 19:19:00 EST, Dry Weight Start Date: 08/29/22 Status: Ordered triamcinolone 55 mcg/inh nasal spray 1 sprays = 55 mcg, Nares, Both, Daily, # 1 each, 5 Refills, Maintenance, 08/14/22 16:59:00 EDT, [facility]., Partial fill upon patient request if the prescription is for a schedule II opioid drug., 1 sprays Nares, Both Daily, 163, cm, 0... Start Date: 08/14/22 Status: Ordered Trulicity Pen 1.5 mg/0.5 mL subcutaneous solution = 1.5 mg, Subcutaneous Infusion, Every week, # 4 each, 5 Refills, Maintenance, 07/25/22 18:12:00 EDT, [facility]., Partial fill upon patient request if the [...] Confirmed Active Panic attacks Confirmed Active N/CP Direct Selling Counselor Charlene Fabian [phone] Confirmed Active Syncope and collapse Confirmed Active Tobacco dependence Confirmed Active DM2 (diabetes mellitus, type 2) Confirmed 04/03/17 Active Incontinence of urine 3 Confirmed Active 1seen on MRI 10/2016, rec repeat imaging in October [address] Abd 09/18/16 at [facility], pending MRI 3urge and stress Social History [...] Care Nurse Name: Leonora Bai NP Position: [facility] PCO Associate Professional Member Role: PCP Address: Address: [address] [place] [address] [place] [address]- Name: Keily Ortega RN [facility] [...] Care Nurse Name: Joselyn Rain RN Position: [facility] Hospital Maternity Nurse Member Role: Primary Care Nurse Care Team Related Persons Name: ROMERO IRA Address: home [address] [place] [address] Name: JHON LARSON Address: home [address] [place] [address] Name: JHON LARSON Address: home [address] [place] [address] Name: GALO CATALAN Name: NANCY CATALAN Address: home [address] [place] [address]
--- OUTSIDE RECORDS SUMMARY | 2023-03-25 08:29 | XMS_ITS | Continuity of Care Document ---
Author Name Unknown Organization [facility] Address [address] [place] [address]- Care Team Providers Care Forest Fire Officer Name Role Phone Richardson QUIROZ, Leonora Pérez Primary Care Phys[place] [facility] [place] - 01/19/[address] [address]- Attending Physician: Clarence Reynaga Admitting Physician: Clarence Reynaga Referring Physician: Clarence Reynaga Allergies, Adverse Reactions, Alerts Substance Reaction Severity Status morphine Active gabapentin swelling Active MetFORMIN Hydrochloride ER black tarry stool Active Lyrica dysphagia Active SEROquel body swelling - all over Act tony Immunizations Given and Recorded Vaccine Date Status Refusal Reason pneumococcal 20-valent conjugate vaccine 12/26/21 Given SARS-CoV-2 mRNA (ihcoacv-ldzn-iwmvg) vax 05/14/21 Given influenza virus vaccine, inactivated [...] 10/22/21 9:23:00 EDT, Route to Pharmacy Electronically, [facility], Partial fill uponpatient request if the prescription is for a schedu... Start Date: 10/22/21 Status: Ordered Advair Diskus 500 mcg-50 mcg inhalation powder 1, puffs, Inhalation, 2 times a day, j45.909, # 1 each, Refills 5, Tot. Refills 5, Maintenance, 05/15/21 9:20:00 EST, Powder, Route to Pharmacy Electronically, [id number], [facility], 162.5, cm, 05/10/21 14:47... Start Date: 05/15/21 Status: Ordered albuterol 0.083% inhalation solution 3 mL = 2.5 mg, Inhalation, Every 4 hours, PRN for wheezing, # 100 each, 2 Refills, Maintenance, 11/22/21 12:30:00 EDT, Solution, [facility], 162, cm, 11/14/21 11:01:00 EDT, Height, 86, kg, 07/23/21 0:58:00 EDT, Dry Weight Start Date: 11/22/21 Status: Ordered amitriptyline 25 mg oral tablet 25 mg, 1, tablet, By Mouth, Daily at bedtime, # 30 tablet, Refills 2, Tot. Refills 2, Maintenance, 08/30/21 12:06:00 EDT, Route to Pharmacy Electronically, [facility], Partial fill upon patient request if the prescription is for a sche... Start Date: 08/30/21 Status: Ordered Atrovent HFA 17 mcg/inh inhalation aerosol 2 puffs, Inhalation, 4 times a day, # 12.9 Gm, 5 Refills, Maintenance, 12/26/21 10:37:00 EDT, Aerosol, [facility] Partial fill upon patient request if the prescription is for a schedule II opioid drug., 162, cm, 12/26/21 10:16:00 EDT,... Start Date: 12/26/21 Status: Ordered cetirizine 10 mg oral tablet 1 tablet = 10 mg, By Mouth, Daily, # 30 tablet, 5 Refills, Maintenance, 08/28/21 9:07:00 EDT, Tablet, [facility] 162, cm, 08/22/21 9:46:00 EDT, Height, [...] 1 Refills, Maintenance, 12/26/21 10:38:00 EDT, Cream, [facility]., 1 application Topically 2 times a [...] tablet, 0 Refills, Maintenance, 10/24/2219:09:00 EDT, [facility] Partial fill upon patient request if the prescription is for a schedule II opioid drug., 2 tablet By... Start Date: 10/23/21 Status: Ordered duloxetine 60 mg oral enteric coated capsule 2 capsule = 120 mg, By Mouth, Daily, # 60 capsule, 5 Refills, Maintenance, 11/14/21 11:41:00 EDT, Capsule, [facility] Partial fill upon patient request. NOT INCREASED DOSE. Please cancel all other Duloxetine scripts, 162, cm, 11/14/21... Start Date: 11/14/21 Status: Ordered empagliflozin 10 mg oral tablet 1 tablet = 10 mg, By Mouth, Daily in AM, # 30 tablet, 5 Refills, Maintenance, 08/28/21 9:07:00 EDT,Tablet, [facility] Partial fill upon patient request if the prescription is for a schedule II opioid drug., 162, cm, 08/22/21 9:46:00... Start Date: 08/28/21 Status: Ordered fluticasone 50 mcg/inh nasal spray See Instructions, USE 1 SPRAY IN BOTH NOSTRILS 2 TIMES A DAY, # 16 mL, 1 Refills, 07/08/21 9:44:00 EDT, [facility] 30, USE 1 SPRAY [...] Mouth, Daily, # 30 tablet, 5 Refills, [facility], 162, cm, 11/14/21 11:01:00EDT, Height, 86, kg, 07/23/21 0:58:00 EDT, Dry Weight Start Date: 11/19/21 Status: Ordered ibuprofen 800 mg oral tablet 800 mg, 1, tablet, By Mouth, 3 times a day, PRN, # 90 tablet, Refills 1, Tot. Refills 1, Maintenance, Pain , Mild, 01/06/22 12:22:00 EDT, Route to Pharmacy Electronically, [facility],please fill 800mg instead of 600mg, 163, cm, [...] 3 Refills, Maintenance, 06/18/21 21:04:00 EDT, Tablet, [facility], 162.5, cm, 06/17/21 13:04:00 EDT, Height, 85.8, kg, 06/04/21 10:03:00 EST, Dry Weight Start Date: 06/18/21 Status: Ordered Lantus 100 u/ml subcutaneous solution = 50 units, Subcutaneous Injection, Daily, # 15 mL, 2 Refills, Maintenance, 01/06/22 12:07:00 EDT, Solution, [facility], ;, 163, cm, 01/03/22 11:20:00 EDT, Height, 84, kg, 01/02/22 19:36:00 EDT, Dry Weight Start Date: 01/06/22 Status: Ordered lidocaine 5% topical film 1 patch, Topically, Daily, PRN Pain , Mild, remove after 12 hours, # 13 each, 5 Refills, Maintenance, 12/26/21 10:37:00 EDT, Film, [facility]., Partial fill upon patient request if theprescription is for a schedule II opioid drug., 1 p... Start Date: 12/26/21 Status: Ordered lisinopril 20 mg oral tablet 20 mg, 1, tablet, By Mouth, Daily, # 90 tablet, Refills 3, Tot. Refills 3, Maintenance, 08/28/21 9:07:00 EDT, Route to Pharmacy Electronically, [facility], 162, cm, 08/22/21 9:46:00 EDT, Height, 86, kg, 07/23/21 0:58:00 EDT, Dry Weight Start Date: 08/28/21 Status: Ordered Melatonin 10 mg oral tablet 1 tablet = 10 mg, By Mouth, Daily at bedtime, # 30 each, 5 Refills, Maintenance, 11/14/21 11:42:00 EDT, [facility], Partial fill upon patient request if the prescription is for a schedule II opioid drug., 162, cm, 11/14/21 11:01:00 EDT... Start Date: 11/14/21 Status: Ordered mirtazapine 30 mg oral tablet 1 tablet = 30 mg, By Mouth, Daily at bedtime, Maintenance, 05/24/19 9:12:00 EST, Tablet Start Date: 05/24/19 Status: Ordered nystatin topical 142310 u/gm powder 1 application, Topically, 2 times a day, # 60 Gm, 1 Refills, Maintenance, 12/26/21 10:38:00 EDT, Powder, [facility]., Partial fill upon patient request if the prescription is for a schedule II opioid drug., 1 application Topically 2 quinton... Start Date: 12/26/21 Status: Ordered omeprazole 40 mg oral enteric coated capsule 1 capsule, By Mouth, Daily, PRN NEEDED, # 30 capsule, 2 Refills, [facility], 162, cm, 09/06/21 13:04:00 EDT, Height, 86, kg, 07/23/21 0:58:00 EDT, Dry Weight Start Date: 10/02/21 Status: Ordered oxyCODONE 5 mg oral tablet 5 mg, 1, tablet, By Mouth, 2 times a day, for 26 days, # 52 tablet, Refills 0, Tot. Refills 0, Acute 01/21/22 10:39:00 EDT, 12/26/21 10:39:00 EDT, Route to Pharmacy Electronically, [facility], Partial fill upon patient request if the p... Start Date: 12/26/21 Stop Date: 01/21/22 Status: Ordered OxyCONTIN 10 mg oral tablet, extended release 10 mg, 1, tablet, By Mouth, Every 12 hours, # 56 tablet, Refills 0, Tot. Refills 0, Maintenance, 12/23/21 17:17:00 EDT, Route to Pharmacy Electronically, [facility], Partial fill uponpatient request if the prescription is for a schedu... Start Date: 12/23/21 Stop Date: 01/20/22 Status: Ordered potassium chloride 10 mEq oral capsule, extended release 2 capsule = 20 mEq, By Mouth, Daily, do not crush or chew. with a full glass of water. with food., # 60 capsule, 0 Refills, Maintenance, 01/03/22 11:56:00 EDT, CR Capsule, [facility],Partial fill upon patient request if the pres... Start Date: 01/03/22 Stop Date: 02/02/22 Status: Ordered Senna 8.6 mg oral tablet 8.6 mg, 1, tablet, By Mouth, Daily at bedtime, # 100 tablet, Refills 11, Tot. Refills 11, Maintenance, 07/08/21 9:39:00 EDT, Route to Pharmacy Electronically, [facility], 162.5, cm, 07/08/21 8:49:00 EDT, Height, 85.8, kg, 06/04/21 10:0... 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
--- OUTSIDE RECORDS SUMMARY | 2023-03-25 08:29 | XMS_ITS | Continuity of Care Document ---
Author Name Unknown Organization [facility] Address [address] [place] [address]- Care Team Providers Care Operations Mgr Name Role Phone Richardson QUIROZ, Leonora Pérez Primary Care Physician Encounter [facility] Date(s): 07/12/19 - 07/19/19 [facility] [address] [place] [id number]- [facility] Attending Physician: Gelacio GERARDO, Tom Crutis Admitting Physician: Megha GERARDO, Alon Rdz Allergies, Adverse [...] 12:48:00 EST, Powder, Route to Pharmacy Electronically, [id number], [facility]/pharmacy #[id number], 158, cm, 04/26/19 9:58:00 EST, H... Start Date: 04/27/19 Status: Ordered albuterol 0.083% inhalation solution 3 mL = 2.5 mg, Inhalation, Every 4 hours, PRN for wheezing, # 100 each, 5 Refills, Maintenance, 06/27/19 14:32:00 EDT, Solution, [facility]/pharmacy #[id number], 160, cm, 06/01/19 14:08:00 [...] Maintenance, 04/19/19 15:40:00 EST, Tablet, [facility]/pharmacy #[id number], 158, cm, 04/04/19 15:21:00 EST, Height, 82, kg, 04/01/19 16:10:00 EST, Dry Weight Start Date: 04/19/19 Status: Ordered clonazePAM 0.5 mg oral tablet TAKE 1 TABLET BY MOUTH TWICE A DAY NEEDED Start Date: 06/02/19 Status: Ordered clotrimazole 1% topical cream 1 application, Topically, 2 times a day, # 30 Gm, 0 Refills, Maintenance, 05/30/19 19:02:00 EST, Cream, [facility]/pharmacy #[id number], 1 application Topically 2 [...] Maintenance, 04/28/19 16:05:00 EST, Tablet, [facility]/pharmacy #[id number], 158, cm, 04/28/19 14:51:00 EST, Height, 82, kg, 04/01/19 16:10:00 EST, Dry Weight Start Date: 04/28/19 Status: Ordered lidocaine 5% topical film 1 patch, Topically, Daily, For chronic radicular back pain, # 30 patch, 5 Refills, Maintenance, 06/27/19 14:37:00 EDT, [facility]/pharmacy #[id number], 1 patch Topically Daily,Instr:For chronic radicular back pain, 160, cm, 06/01/19 14:08:00 EST, Height, 88.9, kg,... Start Date: 06/27/19 Status: Ordered lisinopril 10 mg oral tablet 10 mg, 1, tablet, By Mouth, Daily, # 90 tablet, Refills 3, Tot. Refills 3, Maintenance, 05/08/19 20:27:00 EST, Route to Pharmacy Electronically, [facility]/pharmacy #[id number], to replace 2.5mg dose, [...] not to exceed 3000 mg/day. instructions in [place]ankan, # 120 tablet, 2 Refills, Maintenance, 05/04/19 9:35:00 EST, Tablet, [id number], 158, cm, 04/28/19 [...] pain, for 28 days, on contract at [facility]., # 56 tablet, 0 Refills, Acute 08/04/19 13:49:00 EDT, 07/07/19 13:49:00 EDT, [facility]/pharmacy #[id number], Partial fill upon patient request, 160, cm, 06/01/19 14:08:00 EST,... Start Date: 07/07/19 Stop Date: 08/04/19 Status: Ordered prazosin 1 mg oral capsule 1 mg, 1, capsule, By Mouth, Daily at bedtime, for nightmares, # 30 capsule, Refills 0, Tot. Refills0, Maintenance, 05/30/19 18:52:00 EST, Route to Pharmacy Electronically, [facility]/pharmacy #[id number], 160, cm, 05/30/19 18:08:00 [...] Refills, Maintenance, 05/04/19 9:35:00 EST, [facility]/pharmacy #[id number], 158, cm, 04/28/19 14:51:00 EST, Height, 82, kg, 04/01/19 16:10:00 EST, Dry Weight Start Date: 05/04/19 Status: Ordered Senna 8.6 mg oral tablet 8.6 mg, 1, tablet, By Mouth, Daily at bedtime, # 100 tablet, Refills 2, Tot. Refills 2, Maintenance, 06/10/19 16:12:00 EST, Route to Pharmacy Electronically, [facility]/pharmacy #[id number], 160, cm, 06/01/19 14:08:00 EST, Height, 88.9, kg, 05/23/19 22:09:00 EST,... Start Date: 06/10/19 Status: Ordered Spiriva Respimat 60 ACT 2.5 mcg/inh inhalation aerosol 2 puffs, Inhalation, Daily, # 1 each, 5 Refills, Maintenance, 04/26/19 10:30:00 EST, [facility]/pharmacy #[id number], 158, cm, 04/26/19 9:58:00 EST, Height, 82, kg, 04/01/19 16:10:00 EST, Dry Weight Start Date: 04/26/19 Status: Ordered tiZANidine 2 mg oral tablet 2 mg, 1, tablet, By Mouth, 2 times a day, PRN, # 30 tablet, Refills 2, Tot. Refills 2, Maintenance,as needed for muscle spasm, 06/13/19 18:17:00 EDT, Route to Pharmacy Electronically, [facility]/pharmacy #[id number], 160, cm, 06/01/19 14:08:00 [...] MARILIN on CPAP(Confirmed) Active Panic attacks(Confirmed) Active *BHN/CP/Efrem Macdonald-[phone]/Health group home, active care coordination(Confirmed) Active Acute [...] [address] [place] [facility] [place] 6surgically repaired July 2015 Dr. Sg MENDEZ 7urge and stress Social History Social History Type Response Tobacco Use: Pt states she q uit smoking 1 week ago. Sex Female
--- OUTSIDE RECORDS SUMMARY | 2023-03-25 08:29 | XMS_ITS | Continuity of Care Document ---
Author Name Unknown Organization [facility] Address [address] [place] [address]- Care Team Providers Care Room Server Name Role Phone Richardson QUIROZ, Leonora Pérez Primary Care Physician [phone] Encounter [facility] Date(s): 03/06/20 - 04/05/20 [facility] [address] [place], [place] [address] Allergies, Adverse Reactions, Alerts Substance [...] 14:12:00 EST, Powder, Route to Pharmacy Electronically, [id number], [id number], 162.56, cm, 03/27/20 11:36:00... Start [...] 1 Refills, Maintenance, 02/03/20 13:47:00 EDT, Cream, [facility]/pharmacy #[id number], 1 application Topically 2 times [...] 5 Refills, Maintenance, 12/30/19 18:21:00 EDT, Tablet, [facility]/pharmacy #[id number], 163, cm, 12/26/19 13:58:00 EDT, [...] patch, 5 Refills, Maintenance, 03/09/20 8:53:00 EST, [facility]/pharmacy #[id number], 1 patch Topically Daily,Instr:For chronic [...] not to exceed 3000 mg/day. instructions in [place], # 120 tablet, 2 Refills, Maintenance, 11/01/19 15:24:00 EDT, Tablet, [facility]/pharmacy #[id number], 163, cm, 11/01/19 14:40:00 EDT, [...] 2 Refills, Maintenance, 04/05/20 14:08:00 EST, Tablet, [facility]/pharmacy #[id number], Partial fill upon patient request if the prescription is for a schedule II opioid drug., 162.56, cm, ... Start Date: 04/05/20 Status: Ordered omeprazole 20 mg oral enteric coated capsule 1 capsule = 20 mg, By Mouth, Daily, Use as little as possible to control symptoms., # 30 capsule, 2Refills, Maintenance, 10/06/19 7:45:00 EDT, EC Capsule, [facility]/pharmacy #[id number], cancel Ranitidine, 160,cm, 09/28/19 8:58:00 [...] Acute 05/03/20 14:10:00 EST, 04/05/20 14:10:00 EST, [facility]/pharmacy #[id number], Partial fill upon patient request if the prescription is for a schedule II opioid drug. Client on c... Start Date: 04/05/20 Stop Date: 05/03/20 Status: Ordered Senna 8.6 mg oral tablet 8.6 mg, 1, tablet, By Mouth, Daily at bedtime, # 100 tablet, Refills 2, Tot. Refills 2, Maintenance, 06/10/19 16:12:00 EST, Route to Pharmacy Electronically, [facility]/pharmacy #[id number], 160, cm, 06/01/19 14:08:00 EST, Height, 88.9, kg, 05/23/19 22:09:00 EST,... Start Date: 06/10/19 Status: Ordered Spiriva Respimat 60 ACT 2.5 mcg/inh inhalation aerosol 2 puffs, Inhalation, Daily, # 1 each, 11 Refills, Maintenance, 04/05/20 14:17:00 EST, [facility]/pharmacy #[id number], Partial fill upon patient request if the prescription is for a schedule II opioid drug., 162.56, cm, 03/27/20 11:36:00 EST, Height, 81.81, kg, 12... Start Date: 04/05/20 Status: Ordered tiZANidine 4 mg oral tablet 4 mg, 1, tablet, By Mouth, Every 8 hours, PRN, # 84 tablet, Refills 1, Tot. Refills 1, Maintenance,Spasm, 02/03/20 13:47:00 EDT, Route to Pharmacy Electronically, [facility]/pharmacy #[id number], 163, cm, 12/26/19 13:58:00 EDT, [...] [place] [facility] [place] 3urge and stress Social History Social History Type Response Tobacco Use: Pt states she q uit smoking 1 week ago. Sex Female
--- OUTSIDE RECORDS SUMMARY | 2023-03-25 08:29 | XMS_ITS | Continuity of Care Document ---
Author Name Unknown Organization [facility] Address [address] [place] [address]- Care Team Providers Care Boilermaker Welder Name Role Phone Richardson QUIROZ, Leonora Pérez Primary Care Physician [facility]counter [facility] Date(s): 07/22/21 - 08/21/21 [facility] [address] [place], [place] [address] Allergies, Adverse Reactions, Alerts Substance Reaction Severity Status morphine Active gabapentin swelling Active Lyrica dysphagia Active SEROquel body swelling - all over Act tony MetFORMIN Hydrochloride ER black tarry stool Active Immunizations Given and Recorded Vaccine Date Status Refusal Reason SARS-CoV-2 mRNA (tuarfem-qtll-ntnca) vax 05/14/21 Given influenza virus vaccine, inactivated [...] 07/18/21 15:15:00 EDT, Route to Pharmacy Electronically, [facility], Partial fill upon patient request if the prescription is for a sched... Start Date: 07/18/21 Status: Ordered Advair Diskus 500 mcg-50 mcg inhalation powder 1, puffs, Inhalation, 2 times a day, j45.909, # 1 each, Refills 5, Tot. Refills 5, Maintenance, 05/15/21 9:20:00 EST, Powder, Route to Pharmacy Electronically, [id number], [facility], 162.5, cm, 05/10/21 14:47... Start Date: 05/15/21 Status: Ordered albuterol 0.083% inhalation solution 3 mL = 2.5 mg, Inhalation, Every 4 hours, PRN for wheezing, # 100 each, 2 Refills, Maintenance, 05/15/21 9:30:00 EST, Solution, [facility], 162.5, cm, 05/10/21 14:47:00 EST, Height, 90.9, kg, 02/02/21 5:59:00 EDT, Dry Weight Start Date: 05/15/21 Status: Ordered amitriptyline 25 mg oral tablet 25 mg, 1, tablet, By Mouth, Daily at bedtime, Dose decrease, # 30 tablet, Refills 0, Tot. Refills 0, Maintenance, 08/01/21 15:07:00 EDT, Route to Pharmacy Electronically, [facility], Partial fill upon patient request if the prescriptio... Start Date: 08/01/21 Status: Ordered atorvastatin 40 mg oral tablet 1 tablet = 40 mg, By Mouth, Daily, # 90 tablet, 3 Refills, Maintenance, 07/08/21 9:47:00 EDT, Tablet, [facility], Partial fill upon patient request if the prescription is for a schedule II opioid drug., 162.5, cm, 07/08/21 8:49:00 EDT,... Start Date: 07/08/21 Status: Ordered cetirizine 10 mg oral tablet 1 tablet = 10 mg, By Mouth, Daily, # 30 tablet, 5 Refills, Maintenance, 07/08/21 9:44:00 EDT, Tablet, [facility] 162.5, cm, 07/08/21 8:49:00 EDT, Height, 85.8, kg, 06/04/21 10:03:00 EST, Dry Weight Start Date: 07/08/21 Status: Ordered cholecalciferol 5000 intl units oral capsule 1 capsule = 125 mcg, By Mouth, Daily, with food, # 100 capsule, 2 Refills, Maintenance, 02/11/21 11:17:00 EST, Capsule, [facility]/pharmacy #[id number], Partial fill upon [...] 1 Refills, Maintenance, 07/08/21 9:45:00 EDT, Cream, [facility], PLEASE CANCEL ESTRADIOL VAGINAL CREAM, 1 [...] 5 Refills, Maintenance, 02/18/21 15:09:00 EST, Capsule, [facility]/pharmacy #[id number], Partial fill upon patient request. NOT INCREASED DOSE, 155, cm, 02/18/2114:54:00 EST, Height, 90.9, kg, 02/02/21 5:59:00 ED... Start Date: 02/18/21 Status: Ordered empagliflozin 10 mg oral tablet 1 tablet = 10 mg, By Mouth, Daily in AM, # 30 tablet, 5 Refills, Maintenance, 07/08/21 9:43:00 EDT,Tablet, [facility], Partial fill upon patient request if the prescription is for a schedule II opioid drug., 162.5, cm, 07/08/21 8:49:0... Start Date: 07/08/21 Status: Ordered fluticasone 50 mcg/inh nasal spray See Instructions, USE 1 SPRAY IN BOTH NOSTRILS 2 TIMES A DAY, # 16 mL, 1 Refills, 07/08/21 9:44:00 EDT, [facility]., 30, USE 1 SPRAY IN BOTH NOSTRILS 2 TIMES A DAY, 162.5, cm, :49:00 EDT, Height, 85.8, kg, 06/04/21 10:03:00 ES... Start Date: 07/08/21 Status: Ordered hydrochlorothiazide 12.5 mg oral tablet 1 tablet = 12.5 mg, By Mouth, Daily, TAKE 1 TABLET BY MOUTH EVERY DAY, # 30 capsule, 2 Refills, Maintenance, 05/15/21 9:20:00 EST, [facility]., 162.5, cm, 05/10/21 14:47:00 EST, Height, [...] Maintenance, 06/18/21 21:04:00 EDT, Tablet, [facility]., 162.5, cm, 06/17/21 13:04:00 EDT, Height, 85.8, kg, 06/04/21 10:03:00 EST, Dry Weight Start Date: 06/18/21 Status: Ordered Lantus 100 u/ml subcutaneous solution = 50 units, Subcutaneous Injection, Daily, # 15 mL, 5 Refills, Maintenance, 07/08/21 9:38:00 EDT, Solution, [facility]., ;, 162.5, cm, 07/08/21 8:49:00 EDT, Height, 85.8, kg, 06/04/21 10:03:00 EST, Dry Weight Start Date: 07/08/21 Status: Ordered lisinopril 20 mg oral tablet 20 mg, 1, tablet, By Mouth, Daily, # 90 tablet, Refills 3, Tot. Refills 3, Maintenance, 04/12/21 13:24:00 EST, Route to Pharmacy Electronically, [facility]/pharmacy #[id number], 162.5, cm, 03/22/21 14:58:00 EST, Height, 90.9, kg, 02/02/21 5:59:00 EDT, Dry Weight Start Date: 04/12/21 Status: Ordered meloxicam 7.5 mg oral tablet 1 tablet = 7.5 mg, By Mouth, Daily, # 30 tablet, 1 Refills, Maintenance, 06/24/21 16:30:00 EDT, Tablet, [facility] Partial fill upon patient request [...] Refills, Maintenance, 05/09/21 10:45:00 EST, EC Capsule, [facility], 162.5, cm, 03/22/21 14:58:00 EST, Height, 90.9,kg, 02/02/21 5:59:00 EDT, Dry Weight Start Date: 05/09/21 Status: Ordered OxyCONTIN 15 mg oral tablet, extended release 1 tablet = 15 mg, By Mouth, Every 12 hours, # 56 tablet, 0 Refills, Maintenance, 08/03/21 7:30:00 EDT, ER Tablet, [facility], Partial fill upon patient [...] 07/08/21 9:39:00 EDT, Route to Pharmacy Electronically, [facility], 162.5, cm, 07/08/21 8:49:00 EDT, Height, 85.8, kg, 06/04/21 10:0... Start Date: 07/08/21 Status: Ordered tiZANidine 4 mg oral tablet 4 mg, 1, tablet, By Mouth, Every 8 hours, PRN, # 84 tablet, Refills 1, Tot. Refills 1, Maintenance,Spasm, 06/24/21 19:16:00 EDT, Route to Pharmacy Electronically, [facility], 162.5, cm, 06/24/21 15:35:00 EDT, Height, [...] 0 Refills, Maintenance, 08/01/21 14:59:00 EDT, Tablet, [facility]... Start Date: 08/01/21 Status: Ordered Trulicity Pen 3 mg/0.5 mL subcutaneous solution 0.5 mL = 3 mg, Subcutaneous Injection, Every week, rotate injection sites, # 2 mL, 5 Refills, Maintenance, 08/05/21 17:53:00 EDT, Solution, [facility], Partial fill [...] on CPAP(Confirmed) Active Panic attacks(Confirmed) Active BHN/BHCP Chain Splitter Jb Fabian [phone](Confirmed) Active Syncope and collapse(Confirmed) Active Tobacco dependence(Confirmed) [...]
--- OUTSIDE RECORDS SUMMARY | 2023-03-25 08:29 | XMS_ITS | Continuity of Care Document ---
Author Name Unknown Organization [facility] Address [address] [place] [address]- Care Team Providers Care Manager Hydraulic Name Role Phone Richardson BEVELLER OPERATOR, Leonora Pérez Primary Care Physician Encounter [facility] Date(s): 05/28/22 - 06/27/22 [facility] [address] [place] [address]- Allergies, Adverse Reactions, Alerts Substance Reaction Severity Status morphine Active gabapentin swelling Active Lyrica dysphagia Active SEROquel body swelling - all over Act tony MetFORMIN Hydrochloride ER black tarry stool Active Immunizations Given and Recorded Vaccine Date Status Refusal Reason [id number] 12y+ bivalent booster vax 01/30/22 Given influenza virus vaccine, inactivated 01/30/22 Give n influenza virus vaccine, inactivated 02/04/21 Give n influenza virus vaccine, inactivated 1 04/19/20 Gi tonio influenza virus vaccine, inactivated 03/12/19 Give n influenza virus vaccine, inactivated 01/19/18 Give n influenza virus vaccine, inactivated 02/16/17 Give n pneumococcal 20-valent conjugate vaccine 12/26/21 Given SARS-CoV-2 mRNA ([id number]) vax 05/14/21 Given SARS-CoV-2 (COVID-19) mRNA [id number]-162b2 [...] 10/22/21 9:23:00 EDT, Route to Pharmacy Electronically, [facility], Partial fill uponpatient request if the prescription [...] tablet, 5 Refills, Maintenance, 04/03/22 11:25:00 EST, [facility], 163, cm, 02/11/22 19:19:00 EST, Height, 83, kg, 02/11/22 19:19:00 EST, Dry Weight Start Date: 04/03/22 Status: Ordered amitriptyline 25 mg oral tablet 25 mg, 1, tablet, By Mouth, Daily at bedtime, # 30 tablet, Refills 2, Tot. Refills 2, Maintenance, 08/30/21 12:06:00 EDT, Route to Pharmacy Electronically, [facility], Partial fill upon patient request if the prescription is for a sche... Start Date: 08/30/21 Status: Ordered amLODIPine 5 mg oral tablet 5 mg, 1, tablet, By Mouth, Daily, # 90 tablet, Refills 3, Tot. Refills 3, Maintenance, 04/29/22 11:56:00 EST, Route to Pharmacy Electronically, [facility], Partial fill upon patient request if the prescription is for a schedule II opio... Start Date: 04/29/22 Status: Ordered cholecalciferol 5000 intl units oral capsule 1 capsule = 125 mcg, By Mouth, Daily, with food, # 100 capsule, 2 Refills, Maintenance, 02/11/21 11:17:00 EST, Capsule, [facility]/pharmacy #[id number], Partial fill [...] 11 Refills, Maintenance, 02/21/22 10:35:00 EST, Tablet[facility] Partial fill upon patient request if the prescription is for a schedule II opioid drug., 2 tablet By... Start Date: 02/21/22 Status: Ordered duloxetine 60 mg oral enteric coated capsule 2 capsule = 120 mg, By Mouth, Daily, # 60 capsule, 5 Refills, Maintenance, 05/26/22 17:03:00 EST, [facility]apsule, [facility] Partial fill upon patient request. NOT INCREASED DOSE. Please cancel all other Duloxetine scripts, 163, cm, 05/19/22... Start Date: 05/26/22 Status: Ordered empagliflozin 10 mg oral tablet 1 tablet = 10 mg, By Mouth, Daily in AM, # 30 tablet, 5 Refills, Maintenance, 02/20/22 12:04:00 EST, Tablet, [facility] Partial fill upon patient request if the prescription is for aschedule II opioid drug., 163, cm, 02/11/22 19:19:0... Start Date: 02/20/22 Status: Ordered fluticasone 50 mcg/inh nasal spray See Instructions, USE 1 SPRAY IN BOTH NOSTRILS 2 TIMES A DAY, # 16 mL, 1 Refills, 07/08/21 9:44:00 EDT, [facility] 30, USE 1 SPRAY IN BOTH NOSTRILS 2 TIMES A DAY, 162.5, cm, :49:00 EDT, Height, 85.8, kg, 06/04/21 10:03:00 ES... Start Date: 07/08/21 Status: Ordered ibuprofen 800 mg oral tablet 1, tablet, By Mouth, 3 times a day, PRN, # 90 tablet, Refills 1, Tot. Refills 1, Maintenance, NEEDED FOR PAIN, 06/23/22 9:42:00 EDT, Route to Pharmacy Electronically, [facility], 163, cm, 05/19/22 15:33:00 EST, Height, 83, kg, 02/11... Start Date: 06/23/22 Status: Ordered Januvia 100 mg oral tablet 1 tablet = 100 mg, By Mouth, Daily, # 90 tablet, 3 Refills, Maintenance, 06/18/21 21:04:00 EDT, Tablet, [facility] 162.5, cm, 06/17/21 13:04:00 EDT, Height, 85.8, kg, 06/04/21 10:03:00 EST, Dry Weight Start Date: 06/18/21 Status: Ordered Lantus 100 u/ml subcutaneous solution = 50 units, Subcutaneous Injection, Daily, # 15 mL, 2 Refills, Maintenance, 01/06/22 12:07:00 EDT, Solution, [facility] ;, 163, cm, 01/03/22 11:20:00 EDT, Height, 84, kg, 01/02/22 19:36:00 EDT, Dry Weight Start Date: 01/06/22 Status: Ordered lidocaine 5% topical film 1 patch, Topically, Daily, PRN Pain , Mild, remove after 12 hours, # 13 each, 5 Refills, Maintenance, 04/29/22 11:56:00 EST, Film, [facility] Partial fill upon patient request if theprescription is for a schedule II opioid drug., 1 p... Start Date: 04/29/22 Status: Ordered lisinopril 20 mg oral tablet 20 mg, 1, tablet, By Mouth, Daily, # 90 tablet, Refills 3, Tot. Refills 3, Maintenance, 08/28/21 9:07:00 EDT, Route to Pharmacy Electronically, [facility], 162, cm, 08/22/21 9:46:00 EDT, Height, 86, kg, 07/23/21 0:58:00 EDT, Dry Weight Start Date: 08/28/21 Status: Ordered Melatonin 10 mg oral tablet 1 tablet = 10 mg, By Mouth, Daily at bedtime, # 30 each, 11 Refills, Maintenance, 04/29/22 11:56:00EST, [facility], Partial fill upon patient request if the [...] PRN NEEDED, # 30 capsule, 2 Refills, [facility], 162, cm, 09/06/21 13:04:00 EDT, Height, 86, kg, 07/23/21 0:58:00 EDT, Dry Weight Start Date: 10/02/21 Status: Ordered oxyCODONE 15 mg oral tablet 1 tablet = 15 mg, By Mouth, 3 times a day, on contract at [facility], # 84 tablet, 0 Refills, Maintenance, 06/24/22 13:16:00 EDT, [facility], Partial fill upon patient request if the [...] 07/08/21 9:39:00 EDT, Route to Pharmacy Electronically, [facility], 162.5, cm, 07/08/21 8:49:00 EDT, Height, 85.8, kg, 06/04/21 10:0... Start Date: 07/08/21 Status: Ordered tiZANidine 4 mg oral capsule See Instructions, PRN Pain , Severe, take as little as possible to control pain not to exceed 3 doses/day, # 60 capsule, 0 Refills, Maintenance, 06/24/22 13:18:00 EDT, [facility], 163, cm, 05/19/22 15:33:00 EST, Height, 83, kg, ... Start Date: 06/24/22 Status: Ordered Trulicity Pen 3 mg/0.5 mL subcutaneous solution See Instructions, INJECT 0.5 ML SUBCUTANEOUSLY EVERY WEEK. ROTATE INJECTION SITES, # 2 mL, 5 Refills, Maintenance, 02/05/22 19:58:00 EDT, [facility], 163, cm, 02/05/22 11:00:00 EDT, Height,84, [...] Confirmed Active Panic attacks Confirmed Active BHN/BHCP Care Information Associate Charlene Fabian [phone] Confirmed Active Syncope and collapse Confirmed Active Tobacco dependence Confirmed Active DM2 (diabetes mellitus, type 2) Confirmed 12/29/17 Active Incontinence of urine 3 Confirmed Active [...] Member Role: Primary Care Nurse Name: Richardson BEVELLER OPERATORLeonora Position: [facility] PCO Associate Professional Member Role: PCP Address: Address: [address] [place] [address] Name: Keily Ortega RN Position: [facility] RN Member Role: Primary Care Nurse Name: Graciela Munroe RN Position: [facility] RN Member Role: Primary Care Nurse Name: Nichole Pichardo RN Position: [facility] RN Member Role: Primary Care Nurse Name: Melvin Whitfield RN Position: [facility] PCO RN Member Role: Primary Care Nurse Name: Phuong Berkowitz RN Position: [facility] RN Member Role: Primary Care Nurse Name: Joselyn Rain RN Position: [facility] Supervisor [employer] Member Role: Primary Care Nurse Care Team Related Persons Name: IRA ROMERO Address: home [address] [place] [address] Name: JHON LARSON Address: home [address] [place] [address] Name: JHON LARSON Address: home [address] [place] [address] Name: GALO CATALAN Name: NANCY CATALAN Address: home [address] [place] [address]
--- OUTSIDE RECORDS SUMMARY | 2023-03-25 08:29 | XMS_ITS | Continuity of Care Document ---
Author Name Unknown Organization [facility] Address [address] [place] [address]- Care Team Providers Care Plate Stacker Name Role Phone Richardson QUIROZ, Leonora Pérez Primary Care Physician [facility]counter [facility] Date(s): 04/26/20 - 05/26/20 [facility] [address] [place] [address]- Allergies, Adverse Reactions, Alerts Substance Reaction Severity [...] 14:12:00 EST, Powder, Route to Pharmacy Electronically, [id number], [facility]/pharmacy #[id number], 162.56, cm, 03/27/20 11:36:00... [...] 1 Refills, Maintenance, 02/03/20 13:47:00 EDT, Cream, [facility]/pharmacy #[id number], 1 application Topically 2 times [...] 3 Refills, Maintenance, 01/19/20 10:28:00 EDT, Tablet, [facility]/pharmacy #[id number], 163, cm, [...] patch, 5 Refills, Maintenance, 03/09/20 8:53:00 EST, [facility]/pharmacy #[id number], 1 patch Topically Daily,Instr:For chronic [...] not to exceed 3000 mg/day. instructions in finnish, # 120 tablet, 2 Refills, Maintenance, 11/01/19 [...] Acute 05/31/20 17:54:00 EST, 05/03/20 17:54:00 EST, [facility]/pharmacy #[id number], Partial fill upon patient [...] each, 11 Refills, Maintenance, 04/05/20 14:17:00 EST, [facility]/pharmacy #[id number], Partial fill upon patient [...]
--- OUTSIDE RECORDS SUMMARY | 2023-03-25 08:29 | XMS_ITS | Continuity of Care Document ---
Author Name Unknown Organization [facility] Address [address] [place] [address]- Care Team Providers Care Senior Principal Process Engineer Name Role Phone Richardson QUIROZ, Leonora Pérez Primary Care Physician [facility]counter [facility] Date(s): 01/01/22 - 01/03/22 [facility] [address] [place] [address] Discharge Disposition: A-D/C Home Attending Physician: Daniela GERARDO, William Marr Admitting Physician: Pawel Harrell MD Referring Physician: Not on Staff, Referring MD Allergies, Adverse Reactions, Alerts Substance Reaction Severity Status morphine Active gabapentin swelling Active Lyrica dysphagia Active MetFORMIN Hydrochloride ER black tarry stool Active SEROquel body swelling - all over Act tony Immunizations Given and Recorded Vaccine Date Status Refusal Reason pneumococcal 20-valent conjugate vaccine 12/26/21 Given SARS-CoV-2 mRNA ([id number]) vax 05/14/21 Given influenza virus vaccine, inactivated [...] 10/22/21 9:23:00 EDT, Route to Pharmacy Electronically, [facility], Partial fill uponpatient request if the prescription is for a schedu... Start Date: 10/22/21 Status: Ordered Advair Diskus 500 mcg-50 mcg inhalation powder 1, puffs, Inhalation, 2 times a day, j45.909, # 1 each, Refills 5, Tot. Refills 5, Maintenance, 05/15/21 9:20:00 EST, Powder, Route to Pharmacy Electronically, [id number], [facility], 162.5, cm, 05/10/21 14:47... Start Date: 05/15/21 Status: Ordered albuterol 0.083% inhalation solution 3 mL = 2.5 mg, Inhalation, Every 4 hours, PRN for wheezing, # 100 each, 2 Refills, Maintenance, 11/22/21 12:30:00 EDT, Solution, [facility], 162, cm, 11/14/21 11:01:00 EDT, Height, 86, kg, 07/23/21 0:58:00 EDT, Dry Weight Start Date: 11/22/21 Status: Ordered amitriptyline 25 mg oral tablet 25 mg, 1, tablet, By Mouth, Daily at bedtime, # 30 tablet, Refills 2, Tot. Refills 2, Maintenance, 08/30/21 12:06:00 EDT, Route to Pharmacy Electronically, [facility], Partial fill upon patient request if [...] Maintenance, 08/28/21 9:07:00 EDT, Tablet, [facility]., 162, cm, 08/22/21 9:46:00 [...] 1 Refills, Maintenance, 12/26/21 10:38:00 EDT, Cream, [facility]., 1 application Topically 2 times a [...] tablet, 0 Refills, Maintenance, 10/24/2219:09:00 EDT, Tablet, [facility] Partial fill upon patient request if the prescription is for a schedule II opioid drug., 2 tablet By... Start Date: 10/23/21 Status: Ordered duloxetine 60 mg oral enteric coated capsule 2 capsule = 120 mg, By Mouth, Daily, # 60 capsule, 5 Refills, Maintenance, 11/14/21 11:41:00 EDT, Capsule, [facility] Partial fill upon patient request. NOT INCREASED DOSE. Please cancel all other Duloxetine scripts, 162, cm, 11/14/21... Start Date: 11/14/21 Status: Ordered empagliflozin 10 mg oral tablet 1 tablet = 10 mg, By Mouth, Daily in AM, # 30 tablet, 5 Refills, Maintenance, 08/28/21 9:07:00 EDT,Tablet, [facility] Partial fill upon patient request if the prescription is for a schedule II opioid drug., 162, cm, 08/22/21 9:46:00... Start Date: 08/28/21 Status: Ordered fluticasone 50 mcg/inh nasal spray See Instructions, USE 1 SPRAY IN BOTH NOSTRILS 2 TIMES A DAY, # 16 mL, 1 Refills, 07/08/21 9:44:00 EDT, [facility] 30, USE 1 SPRAY IN [...] Mouth, Daily, # 30 tablet, 5 Refills, [facility], 162, cm, 11/14/21 11:01:00EDT, Height, 86, kg, 07/23/21 0:58:00 EDT, Dry Weight Start Date: 11/19/21 Status: Ordered ibuprofen 800 mg oral tablet 800 mg, 1, tablet, By Mouth, 3 times a day, PRN, # 90 tablet, Refills 1, Tot. Refills 1, Maintenance, Pain , Mild, 10/31/21 13:59:00 EDT, Route to Pharmacy Electronically, [facility],please fill 800mg instead of 600mg, 162, [...] Maintenance, 06/18/21 21:04:00 EDT, Tablet, [facility]., 162.5, cm, 06/17/21 13:04:00 EDT, Height, 85.8, kg, 06/04/21 10:03:00 EST, Dry Weight Start Date: 06/18/21 Status: Ordered Lantus 100 u/ml subcutaneous solution = 50 units, Subcutaneous Injection, Daily, # 15 mL, 5 Refills, Maintenance, 07/08/21 9:38:00 EDT, Solution, [facility]., ;, 162.5, cm, 07/08/21 8:49:00 EDT, Height, 85.8, kg, 06/04/21 10:03:00 EST, Dry Weight Start Date: 07/08/21 Status: Ordered lidocaine 5% topical film 1 patch, Topically, Daily, PRN Pain , Mild, remove after 12 hours, # 13 each, 5 Refills, Maintenance, 12/26/21 10:37:00 EDT, Film, [facility], Partial fill upon patient request if theprescription is for a schedule II opioid drug., 1 p... Start Date: 12/26/21 Status: Ordered lisinopril 20 mg oral tablet 20 mg, Tablet, By Mouth, Hold for: SBP<100, 01/03/22 9:00:00 EDT Start Date: 01/03/22 Stop Date: 01/03/22 Status: Completed lisinopril 20 mg oral tablet 20 mg, 1, tablet, By Mouth, Daily, # 90 tablet, Refills 3, Tot. Refills 3, Maintenance, 08/28/21 9:07:00 EDT, Route to Pharmacy Electronically, [facility] 162, cm, 08/22/21 9:46:00 EDT, Height, 86, kg, 07/23/21 0:58:00 EDT, Dry Weight Start Date: 08/28/21 Status: Ordered Melatonin 10 mg oral tablet 1 tablet = 10 mg, By Mouth, Daily at bedtime, # 30 each, 5 Refills, Maintenance, 11/14/21 11:42:00 EDT, [facility], Partial fill upon patient request if the prescription is for a schedule II opioid drug., 162, cm, 11/14/21 11:01:00 EDT... Start Date: 11/14/21 Status: Ordered mirtazapine 30 mg oral tablet 1 tablet = 30 mg, By Mouth, Daily at bedtime, Maintenance, 05/24/19 9:12:00 EST, Tablet Start Date: 05/24/19 Status: Ordered nystatin topical 144799 u/gm powder 1 application, Topically, 2 times a day, # 60 Gm, 1 Refills, Maintenance, 12/26/21 10:38:00 EDT, Powder, [facility]., Partial fill upon patient request if the prescription is for a schedule II opioid drug., 1 application Topically 2 quinton... Start Date: 12/26/21 Status: Ordered omeprazole 40 mg oral enteric coated capsule 1 capsule, By Mouth, Daily, PRN NEEDED, # 30 capsule, 2 Refills, [facility], 162, cm, 09/06/21 13:04:00 EDT, Height, 86, kg, 07/23/21 0:58:00 EDT, Dry Weight Start Date: 10/02/21 Status: Ordered oxyCODONE 5 mg oral tablet 5 mg, 1, tablet, By Mouth, 2 times a day, for 26 days, # 52 tablet, Refills 0, Tot. Refills 0, Acute 01/21/22 10:39:00 EDT, 12/26/21 10:39:00 EDT, Route to Pharmacy Electronically, [facility], Partial fill upon patient request if the p... Start Date: 12/26/21 Stop Date: 01/21/22 Status: Ordered oxyCODONE 5 mg oral tablet 5 mg, Tablet, By Mouth, Every 12 hours, PRN for Pain , Moderate, Routine, 01/02/22 3:59:00 EDT Start Date: 01/02/22 Stop Date: 01/04/22 Status: Discontinued OxyCONTIN 10 mg oral tablet, extended release 10 mg, 1, tablet, By Mouth, Every 12 hours, # 56 tablet, Refills 0, Tot. Refills 0, Maintenance, 12/23/21 17:17:00 EDT, Route to Pharmacy Electronically, [facility], Partial fill uponpatient request if the prescription is for a schedu... Start Date: 12/23/21 Stop Date: 01/20/22 Status: Ordered OxyCONTIN 10 mg oral tablet, extended release 10 mg, ER Tablet, By Mouth, 01/03/22 8:00:00 EDT Start Date: 01/03/22 Stop Date: 01/03/22 Status: Completed potassium chloride 10 mEq oral capsule, extended release 2 capsule = 20 mEq, By Mouth, Daily, do not crush or chew. with a full glass of water. with food., # 60 capsule, 0 Refills, Maintenance, 01/03/22 11:56:00 EDT, CR Capsule, [facility],Partial fill upon patient request if the pres... Start Date: 01/03/22 Stop Date: 02/02/22 Status: Ordered predniSONE 20 mg oral tablet 2 tablet = 40 mg, By Mouth, Daily, for 3 days, # 6 tablet, 0 Refills, Acute 01/06/22 11:55:00 EDT, 01/03/22 11:55:00 EDT, Tablet, [facility], Partial fill upon patient request if the prescription is for a schedule II opioid drug., 163,... Start Date: 01/03/22 Stop Date: 01/06/22 Status: Ordered Senna 8.6 mg oral tablet 8.6 mg, 1, tablet, By Mouth, Daily at bedtime, # 100 tablet, Refills 11, Tot. Refills 11, Maintenance, 07/08/21 9:39:00 EDT, Route to Pharmacy Electronically, [facility], 162.5, cm, 07/08/21 8:49:00 EDT, Height, 85.8, kg, 06/04/21 10:0... Start Date: 07/08/21 Status: Ordered Tessalon Perles 100 mg oral capsule 1 capsule = 100 mg, By Mouth, 3 times a day, PRN Cough, for 14 days, # 42 capsule, 0 Refills, Acute01/17/22 11:55:00 EDT, 01/03/22 11:55:00 EDT, Capsule, [facility]., Partial fill upon patient request if the prescription is for a sched... 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 Charlene Fabian [phone] Confirmed Active Syncope and collapse Confirmed Active Tobacco dependence Confirmed Active DM2 (diabetes mellitus, type 2) Confirmed 04/03/17 Active Incontinence of urine 3 Confirmed Active 1seen on MRI 10/2016, rec repeat imaging in October [address] Abd 09/18/16 at [facility], pending MRI 3urge and stress Results Radiology Reports * Exam Date Time Procedure Performing Provider Status 01/01/22 7:40 PM Chest Portable Jes Guerrero; Auth (Verified) Notes: (Chest Portable) Reason For Exam: Shortness of Breath RESULT: Chest Portable Chest Portable Hx of Present Illness: Pt coming from home, SOB cough and cold s s for a couple days. Hx of asthma.; Reason: Shortness of Breath; Clinical Question(s): Pneumonia COMPARISON: 02/02/2021. FINDINGS: LINES AND TUBES: None. LUNGS AND PLEURA: Right hemidiaphragm is elevated. Clear lungs. Normal pulmonary vascularity. No pleural effusion. No pneumothorax. HEART, MEDIASTINUM AND [place]: Heart is normal in size. Normal mediastinal and hilar contour. BONES AND SOFT TISSUES: No acute abnormality. IMPRESSION: No acute abnormality. WSN: [id number] Ordering Physician: Pierce Vaughn Dictated By: Hui Womack MD Dictated Date/Time: 01/01/22 7:43 pm Reviewed By: Hui Womack MD Signed By: Hui Womack MD Signed Date/Time: 01/01/22 7:43 pm Transcribed By: WILVER Transcribed Date/Time: 01/01/22 7:42 pm Vital Signs Most recent to oldest [Reference Range]: 1 2 3 Height 163 cm (01/03/22 11:20 AM) 163 cm (01/03/22 7:42 AM) 163 cm (01/03/22 4:00 AM) Weight 83.5 kg (01/02/22 7:49 PM) 84 kg (01/02/22 6:50 PM) Oxygen Saturation [94-100 %] 94 % (01/03/22 11:20 AM) 98 % (01/03/22 7:42 AM) 97 % (01/03/22 4:00 AM) Pulse Rate [55-90 bpm] 67 bpm (01/03/22 11:20 AM) 57 bpm (01/03/22 7:42 AM) 61 bpm (01/03/22 4:00 AM) Body Mass Index [18.5-24.99 kg/m2] 31.62 kg/m2 *>HHI* (01/02/22 6:50 PM) Blood Pressure [90-138/55-84 mm Hg] 169/98mm Hg *H* (01/03/22 11:20 AM) 164/92mm Hg *H* (01/03/22 9:03 AM) 164/92mm Hg *H* (01/03/22 7:42 AM) Respiratory Rate [16-30 br/min] 18 br/min (01/03/22 12:37 PM) 16 br/min (01/03/22 11:20 AM) 18 br/min (01/03/22 9:03 AM) Temperature [96.8-100.4 DegF] 98.4 DegF (01/03/22 11:20 AM) 98.4 DegF (01/03/22 7:42 AM) 97.9 DegF (01/03/22 4:00 AM) Liters per Minute 2 L/min (01/02/22 11:35 AM) 2 L/min (01/02/22 4:11 AM) 2 L/min (01/02/22 2:00 AM) Mode of Delivery (Oxygen) Room air (01/03/22 11:20 AM) Room air (01/03/22 7:42 AM) Room air (01/03/22 4:00 AM) Blood pressure sites Arm, left (01/03/22 11:20 AM) Arm, left (01/03/22 7:42 AM) Arm, left (01/03/22 4:00 AM) Temperature Route Oral (01/03/22 11:20 AM) Oral (01/03/22 7:42 AM) Oral (01/03/22 4:00 AM) Dry Weight 84 kg (01/02/22 6:50 PM) Social History Social History Type Response Smoking Status Current every day sm oker; Type: Cigarettes; Tobacco use times per day: 1/2 ppd; entered on: 12/24/17 Sex Portable XR Chest Views * BHSPowerscribe , CIS S: TRANSCRIBE Hui Womack MD: VERIFY Event Display: Result: Authored Date: [id number] Chest Portable Hx of Present Illness: Pt coming from home, SOB cough and cold s s for a couple days. Hx of asthma.; Reason: Shortness of Breath; Clinical Question(s): Pneumonia COMPARISON: 02/02/2021. FINDINGS: LINES AND TUBES: None. LUNGS AND PLEURA: Right hemidiaphragm is elevated. Clear lungs. Normal pulmonary vascularity. No pleural effusion. No pneumothorax. HEART, MEDIASTINUM AND [place]: Heart is normal in size. Normal mediastinal and hilar contour. BONES AND SOFT TISSUES: No acute abnormality. IMPRESSION: No acute abnormality. WSN: [id number] Ordering Physician: Pierce Vaughn Dictated By: Hui Womack MD Dictated Date/Time: 01/01/22 7:43 pm Reviewed By: Hui Womack MD Signed By: Hui Womack MD Signed Date/Time: 01/01/22 7:43 pm Transcribed By: WILVER Transcribed Date/Time: 01/01/22 7:42 pm Patient Care team information Personnel Name: Leonora Bai NP Address: Address: [address] [place] [address]
--- OUTSIDE RECORDS SUMMARY | 2023-03-25 08:29 | XMS_ITS | Continuity of Care Document ---
Author Name Unknown Organization [facility] Address [address] [place] [address]- Care Team Providers Care Spare Person Name Role Phone Richardson QUIROZ, Leonora Pérez Primary Care Physician [phone] [facility]counter [facility] Date[facility]s): 04/16/20 - 05/16/20 [facility] [address] [place], [place] [address] Allergies, Adverse Reactions, Alerts [...] 14:12:00 EST, Powder, Route to Pharmacy Electronically, [id number], [facility]/pharmacy #[id number], [...] Acute 05/31/20 17:54:00 EST, 05/03/20 17:54:00 EST, [facility]/pharmacy [...] 05/03/20 11:26:00 EST, [facility]ically, [facility] [...] 2seen on CT Abd 09/18/16 at [facility], pending MRI 3urge and stress Social History Social History Type Response Tobacco Use: Pt states she q uit smoking 1 week ago. Sex
--- OUTSIDE RECORDS SUMMARY | 2023-03-25 08:29 | XMS_ITS | Continuity of Care Document ---
Author Name Unknown Organization [facility] Erika mary Address [address] [place] [address] [address] [place] [address]- Care Team Providers Care Biomedical Technician Name Role Phone Richardson QUIROZ, Leonora Pérez Primary Care Physician [phone] Encounter [facility] Date(s): 01/24/21 - 01/31/21 [facility] [address] [place] [address]- Attending Physician: Santana Hernandez MD Referring Physician: Richardson QUIROZ, Leonora Pérez [...] 19:30:00 EDT, Route to Pharmacy Electronically, [facility]/pharmacy #[id number], Partial fill upon patient request if the prescription is for a schedule II o... Start Date: 01/16/21 Status: Ordered Advair Diskus 500 mcg-50 mcg inhalation powder 1, puffs, Inhalation, 2 times a day, [id number], # 1 each, Refills 11, Tot. Refills 11, Maintenance, 04/05/20 14:12:00 EST, Powder, Route to Pharmacy Electronically, [id number], [facility]/pharmacy #[id number], 162.56, cm, 03/27/20 11:36:00... Start Date: 04/05/20 Status: Ordered albuterol 0.083% inhalation solution 3 mL = 2.5 mg, Inhalation, Every 4 hours, PRN for wheezing, # 100 each, 2 Refills, Maintenance, 08/15/20 10:22:00 EDT, Solution, [facility]/pharmacy #[id number], 163, cm, 08/09/20 8:45:00 EDT, Height, 84.8, kg, 06/25/20 20:28:00 EDT, Dry Weight Start Date: 08/15/20 Status: Ordered amitriptyline 75 mg oral tablet 1 tablet = 75 mg, By Mouth, Daily at bedtime, # 30 tablet, 5 Refills, Maintenance, 08/16/20 11:58:00 EDT, Tablet, [facility]/pharmacy #[id number], Partial fill [...] 11 Refills, Maintenance, 12/31/20 15:58:00 EDT, [facility]/pharmacy #[id number], Partial fill [...] Soft Stop, 11/23/20 14:43:00 EDT, Tablet, [facility]/pharmacy #[id number], Partial fill upon patient request if the prescription is for a schedule II opioid... Start Date: 11/23/20 Status: Ordered fluticasone 50 mcg/inh nasal spray See Instructions, USE 1 SPRAY IN BOTH NOSTRILS 2 TIMES A DAY, # 16 mL, 1 Refills, Maintenance, [id number], 30, USE 1 SPRAY IN BOTH NOSTRILS 2 TIMES A DAY, 163, cm, 08/15/20 14:23:00 EDT, Height,84.8, kg, 06/25/20 20:28:00 EDT, Dry Weight Start Date: 09/07/20 Status: Ordered hydrochlorothiazide 12.5 mg oral tablet 1 tablet = 12.5 mg, By Mouth, Daily, # 90 tablet, 3 Refills, Maintenance, 01/19/20 10:28:00 EDT, Tablet, [facility]/pharmacy #[id number], 163, cm, 12/26/19 13:58:00 EDT, Height, 80, kg, 10/29/19 0:29:00 EDT, Dry Weight Start Date: 01/19/20 Status: Ordered Januvia 100 mg oral tablet 1 tablet = 100 mg, By Mouth, Daily, # 30 tablet, 2 Refills, Maintenance, 10/29/20 14:07:00 EDT, Tablet, [facility]/pharmacy #[id number], 163, cm, 08/15/20 [...] Acute 02/28/21 14:14:00 EST, 01/31/21 14:14:00 EDT, [facility]., CANCEL OXYCODONE- DO NOT FILL. PRESCRIBING MORPHINE INSTEAD. ON CONTRACT AT [facility], 165, cm,... Start Date: 01/31/21 Stop Date: 02/28/21 Status: Ordered nabumetone 750 mg oral tablet 1 tablet = 750 mg, By Mouth, 2 times a day, Do not take with Naproxen, # 60 tablet, 1 Refills, Maintenance, 01/31/21 14:16:00 EDT, Tablet, [facility]., Partial fill upon patient request if the prescription is for a schedule II opioid dr... Start Date: 01/31/21 Status: Ordered naproxen 500 mg oral tablet 1 tablet = 500 mg, By Mouth, 2 times a day, For back pain, # 60 tablet, 2 Refills, Maintenance, 04/05/20 14:08:00 EST, Tablet, [facility]/pharmacy #[id number], Partial fill upon patient request if the prescription is for a schedule II opioid drug., 162.56, cm, 12/... Start Date: 04/05/20 Status: Ordered omeprazole 40 mg oral enteric coated capsule 1 capsule = 40 mg, By Mouth, Daily, PRN Dyspepsia, # 90 capsule, 0 Refills, Maintenance, 01/11/21 13:46:00 EDT, EC Capsule, [facility]/pharmacy #[id number], 165, cm, 12/31/20 14:56:00 EDT, Height, [...] 12:45:00 EDT, Route to Pharmacy Electronically, [facility]/pharmacy #[id number], 165, cm, 11/22/20 8:40:00 EDT, Height, 84.8, kg, 06/25/20 20:28:00... Start Date: 12/05/20 Stop Date: 01/30/21 Status: Ordered Trulicity Pen 0.75 mg/0.5 mL subcutaneous solution 0.5 mL = 0.75 mg, Subcutaneous Injection, Every week, rotate injection sites, # 2 mL, 5 Refills, Maintenance, 10/31/20 15:27:00 EDT, Solution, [facility]/pharmacy #[id number], Partial fill upon patient request ifthe [...] [facility] [place], pending MRI 3urge and stress Vital Signs Most recent to oldest [Reference Range]: 1 Height 165 cm (01/24/21 1:27 PM) Weight 87 kg (01/24/21 1:27 PM) Body Mass Index [18.5-24.99] 31.96 *>HHI* (01/24/21 1:27 PM) Temperature [96.8-100.4 DegF] 98.4 DegF (01/24/21 1:27 PM) Social History Social History Type Response Smoking Status Current every day kaitlin valle; Type: Cigarettes; Tobacco use times per day: 1/2 ppd; entered on: 12/24/17 Sex
--- OUTSIDE RECORDS SUMMARY | 2023-03-25 08:29 | XMS_ITS | Continuity of Care Document ---
Author Name Unknown Organization [facility] Address [address] [place] [address]- Care Team Providers Care Head Piece Assembler Name Role Phone Richardson QUIROZ, Leonora Pérez Primary Care Physician [phone] Encounter [facility] Date(s): 05/30/20 - 06/29/20 [facility] [address] [place], [place] [address] Allergies, Adverse Reactions, Alerts Substance Reaction [...] 14:12:00 EST, Powder, Route to Pharmacy Electronically, [id number], [facility]/pharmacy #[id number], 162.56, cm, 03/27/20 11:36:00... Start Date: 04/05/20 Status: Ordered albuterol 0.083% inhalation solution 3 mL = 2.5 mg, Inhalation, Every 4 hours, PRN for wheezing, # 100 each, 5 Refills, Maintenance, 06/27/19 14:32:00 EDT, Solution, [facility]/pharmacy #[id number], 160, cm, 06/01/19 14:08:00 EST, Height, [...] 3 Refills, Maintenance, 04/05/20 14:11:00 EST, Tablet, [facility]/pharmacy #[id number], Partial fill upon patient request if the prescription is for a schedule II opioid drug., 162.56, cm, 03/27/20 11:36:00 EST, Heig... Start Date: 04/05/20 Status: Ordered Bactrim DS 800 mg-160 mg oral tablet 1 tablet, By Mouth, 2 times a day, for 14 days, # 28 tablet, 0 Refills, Acute 07/10/20 5:36:00 EDT,06/26/20 5:36:00 EDT, Tablet, [facility]/pharmacy #[id number], Partial fill upon patient request if [...] 5 Refills, Maintenance, 12/30/19 18:21:00 EDT, Tablet, [facility]/pharmacy #[id number], 163, cm, 12/26/19 13:58:00 EDT, Height, 80, kg, 10/29/19 0:29:00 EDT, Dry Weight Start Date: 12/30/19 Status: Ordered Lantus 100 u/ml subcutaneous solution = 40 units, Subcutaneous Injection, Daily, # 12 mL, 11 Refills, Maintenance, 05/07/20 13:24:00 EST,Solution, [facility]/pharmacy #[id number], increased dose 12/26/19, 162, cm, 04/21/20 [...] 05/07/20 13:30:00 EST, Route to Pharmacy Electronically, [facility]/pharmacy #[id number], 162, cm, 04/21/20 11:33:00 EST, Height, 80, kg, 04/18/20 9:48:00 EST, Dry Weight Start Date: 05/07/20 Status: Ordered Mapap 325 mg oral tablet 2 tablet = 650 mg, By Mouth, Every 4 hours, PRN for pain, not to exceed 3000 mg/day. instructions in khmer, # 120 tablet, 2 Refills, Maintenance, 11/01/19 15:24:00 EDT, Tablet, [facility]/pharmacy #[id number], 163, cm, 11/01/19 14:40:00 EDT, Height, [...] 2 Refills, Maintenance, 04/05/20 14:08:00 EST, Tablet, [facility]/pharmacy #[id number], Partial fill upon patient request if the prescription is for a schedule II opioid drug., 162.56, cm, ... Start Date: 04/05/20 Status: Ordered omeprazole 40 mg oral enteric coated capsule 1 capsule = 40 mg, By Mouth, Daily, # 30 capsule, 3 Refills, Maintenance, 05/24/20 9:40:00 EST, EC Capsule, [facility]/pharmacy #[id number], note dose increase, 162, cm, 05/24/20 [...] day, for 28 days, on contract at [facility], # 56 tablet, 0 Refills, Acute 07/30/20 8:00:00 EDT, 07/02/20 8:00:00 EDT, [facility]/pharmacy #[id number], Partial fill upon patient request if the prescription is for a schedule II opioi... Start Date: 07/02/20 Stop Date: 07/30/20 Status: Ordered Senna 8.6 mg oral tablet 8.6 mg, 1, tablet, By Mouth, Daily at bedtime, # 100 tablet, Refills 2, Tot. Refills 2, Maintenance, 06/04/20 12:46:00 EST, Route to Pharmacy Electronically, [facility]/pharmacy #[id number], 162, cm, 05/24/20 9:01:00 EST, Height, 80, kg, 04/18/20 9:48:00 EST, Dry... Start Date: 06/04/20 Status: Ordered Soma 350 mg oral tablet 350 mg, 1, tablet, By Mouth, 3 times a day, # 9 tablet, Refills 0, Tot. Refills 0, Maintenance, 05/04/20 15:46:00 EST, Route to Pharmacy Electronically, [facility]/pharmacy #[id number], Partial fill upon patient request if the prescription is for a schedule II opi... Start Date: 05/04/20 Status: Ordered Spiriva Respimat 60 ACT 2.5 mcg/inh inhalation aerosol 2 puffs, Inhalation, Daily, # 1 each, 11 Refills, Maintenance, 04/05/20 14:17:00 EST, [facility]/pharmacy #[id number], Partial fill upon patient request if the prescription is for a schedule II opioid drug., 162.56, cm, 03/27/20 11:36:00 EST, Height, 81.81, kg, 12... Start Date: 04/05/20 Status: Ordered tiZANidine 4 mg oral tablet 4 mg, 1, tablet, By Mouth, Every 8 hours, PRN, # 84 tablet, Refills 1, Tot. Refills 1, Maintenance,Spasm, 05/03/20 11:26:00 EST, Route to Pharmacy Electronically, [facility]/pharmacy #[id number], 162, cm, 04/21/20 11:33:00 EST, Height, [...]
--- OUTSIDE RECORDS SUMMARY | 2023-03-25 08:29 | XMS_ITS | Continuity of Care Document ---
Author Name Unknown Organization [facility] Address [address] [place] [address]- Care Team Providers Care Bilingual Student Tutor Name Role Phone Pura Walker MD Primary Care Physician Encounter [facility] Date(s): 01/20/23 - 02/20/23 [facility] [address] [place] [address]- Attending Physician: Alon Cleveland MD Admitting Physician: Alon Cleveland MD Allergies, Adverse Reactions, Alerts Substance Reaction Severity Status morphine Active gabapentin swelling Active Lyrica dysphagia Active MetFORMIN Hydrochloride ER black tarry stool Active SEROquel body swelling - all over Act tony Immunizations Given and Recorded Vaccine Date Status Refusal Reason [id number] 12y+ bivalent booster vax 01/30/22 Given influenza virus vaccine, inactivated 01/30/22 Give n influenza virus vaccine, inactivated 02/04/21 Give n influenza virus vaccine, inactivated 1 04/19/20 Gi tonio influenza virus vaccine, inactivated 03/12/19 Give n influenza virus vaccine, inactivated 01/19/18 Give n influenza virus vaccine, inactivated 02/16/17 Give n pneumococcal 20-valent conjugate vaccine 12/26/21 Given SARS-CoV-2 mRNA ([id number]) vax 05/14/21 Given SARS-CoV-2 (COVID-19) mRNA [id number] [...] 17:00:00 EDT, Route to Pharmacy Electronically, [facility], Partial fill upon patient request if the prescription is for a sched... Start Date: 09/25/22 Status: Ordered Advair Diskus 500 mcg-50 mcg inhalation powder 1, inhalation, Inhalation, 2 times a day, rinse mouth and throat after use, # 60 each, Refills 11, Tot. Refills 11, Maintenance, 09/25/22 17:00:00 EDT, Inhaler, Route to Pharmacy Electronically, [id number], [facility]... Start Date: 09/25/22 Status: Ordered albuterol 0.083% inhalation solution 3 mL = 2.5 mg, Neb, Every 4 hours, PRN Wheezing/Shortness of Breath, # 100 each, 11 Refills, Maintenance, 12/26/22 8:14:00 EDT, Inhalation Solution, [facility], Partial fill upon patient request if the prescription is for a schedule II... Start Date: 12/26/22 Status: Ordered All Day Allergy 10 mg oral tablet 1 tablet, By Mouth, Daily, # 90 tablet, 3 Refills, Maintenance, 11/20/22 16:48:00 EDT, [facility], 163, cm, 11/20/22 16:00:00 EDT, Height, 83, kg, 02/11/22 19:19:00 EST, Dry Weight Start Date: 11/20/22 Status: Ordered amLODIPine 5 mg oral tablet 5 mg, 1, tablet, By Mouth, Daily, # 90 tablet, Refills 3, Tot. Refills 3, Maintenance, 04/29/22 11:56:00 EST, Route to Pharmacy Electronically, [facility] Partial fill upon patient request if the prescription is for a schedule II opio... Start Date: 04/29/22 Status: Ordered atorvastatin 40 mg oral tablet 1 tablet = 40 mg, By Mouth, Daily, # 90 tablet, 3 Refills, Maintenance, 09/25/22 16:58:00 EDT, Tablet, [facility]., Partial fill upon patient request if [...] Gm, 2 Refills, Maintenance, 12/26/22 8:13:00 EDT, [facility] 15, APPLY TOPICALLY TO AFFECTED AREA TWO TIMES A DAY FOR TWO WEEKS, 163, cm, ... Start Date: 12/26/22 Status: Ordered docusate-senna 50 mg-187 mg oral tablet 2 tablet, By Mouth, 2 times a day, PRN Constipation, # 100 tablet, 11 Refills, Maintenance, 08/14/22 16:57:00 EDT, Tablet, [facility]., Partial fill upon patient request if [...] Refills, Maintenance, 09/25/22 17:01:00 EDT, Tablet, [facility], Partial fill upon patient request if the prescription is for aschedule II opioid drug., 163, cm, 09/25/22 16:20:0... Start Date: 09/25/22 Status: Ordered ibuprofen 800 mg oral tablet 1, tablet, By Mouth, 3 times a day, PRN, # 90 tablet, Refills 1, Tot. Refills 1, Maintenance, NEEDED FOR PAIN, 10/22/22 15:19:00 EDT, Route to Pharmacy Electronically, [facility], 163, cm, 09/25/22 16:20:00 EDT, Height, 83, kg, 11/0... Start Date: 10/22/22 Status: Ordered Januvia 100 mg oral tablet 1 tablet, By Mouth, Daily, # 30 tablet, 11 Refills, Maintenance, 11/26/22 10:02:00 EDT, [facility], 163, cm, 11/20/22 16:00:00 EDT, Height, 83, kg, 02/11/22 19:19:00 EST, Dry Weight Start Date: 11/26/22 Status: Ordered lidocaine 5% topical film 1 patch, Topically, Daily, PRN Pain , Mild, remove after 12 hours, # 13 each, 5 Refills, Maintenance, 09/25/22 16:59:00 EDT, Film, [facility], Partial fill upon patient request if theprescription is for a schedule II opioid drug., 1 p... Start Date: 09/25/22 Status: Ordered lisinopril 20 mg oral tablet 20 mg, 1, tablet, By Mouth, Daily, # 90 tablet, Refills 3, Tot. Refills 3, Maintenance, 11/20/22 16:48:00 EDT, Route to Pharmacy Electronically, [facility], 163, cm, 11/20/22 16:00:00EDT, Height, 83, kg, 02/11/22 19:19:00 EST, Dry Weight Start Date: 11/20/22 Status: Ordered mirtazapine 30 mg oral tablet 1 tablet = 30 mg, By Mouth, Daily at bedtime, # 90 tablet, 1 Refills, Maintenance, 09/25/22 17:00:00 EDT, Tablet, [facility]., Partial fill upon patient request if the prescription is for a schedule II opioid drug., 163, cm, 09/25/22 16... Start Date: 09/25/22 Status: Ordered omeprazole 40 mg oral enteric coated capsule 1 capsule, By Mouth, Daily, PRN NEEDED, # 90 capsule, 1 Refills, Maintenance, 11/25/22 10:53:00 EDT, [facility], 163, cm, 11/20/22 16:00:00 EDT, Height, 83, kg, 02/11/22 19:19:00 EST, Dry Weight Start Date: 11/25/22 Status: Ordered oxyCODONE 15 mg oral tablet 1 tablet = 15 mg, By Mouth, Every 8 hours, PRN Pain , Severe, [employer] checked. Opioid agreement at [facility], # 84 tablet, 0 Refills, Maintenance, 02/18/23 16:52:00 EST, [facility]., Partial fill upon patient request if [...] 01/27/23 9:28:00 EDT, Route to Pharmacy Electronically, [facility] 163, cm, 11/20/22 16:00:00 EDT, Height, 83, kg... Start Date: 01/27/23 Status: Ordered traZODone 50 mg oral tablet 1/2 TO 1 TABLET, By Mouth, Daily at bedtime, # 30 tablet, Refills 5, Tot. Refills 5, Maintenance, 02/18/23 14:55:00 EST, Route to Pharmacy Electronically, [facility]., 163, cm, 11/20/22 16:00:00 EDT, Height, 83, kg, 02/11/22 19:19:00 ES... Start Date: 02/18/23 Status: Ordered triamcinolone 55 mcg/inh nasal spray 1 sprays = 55 mcg, Nares, Both, Daily, # 1 each, 5 Refills, Maintenance, 08/14/22 16:59:00 EDT, [facility], Partial fill upon patient request if the prescription is for a schedule II opioid drug., 1 sprays Nares, Both Daily, 163, cm, 0... Start Date: 08/14/22 Status: Ordered Trulicity Pen 1.5 mg/0.5 mL subcutaneous solution = 1.5 mg, Subcutaneous Infusion, Every week, # 4 each, 11 Refills, Maintenance, 11/20/22 16:49:00 EDT, [facility], Partial fill upon patient request if the [...] Active Panic attacks Confirmed Active [facility] Director Of Physical Education Charlene Fabian [phone] Confirmed Active Syncope and collapse Confirmed Active Tobacco dependence Confirmed Active DM2 (diabetes mellitus, type 2) Confirmed 04/03/17 Active Incontinence of urine 5 Confirmed Active 1on polysomnogram 2seen on MRI 10/2016, rec repeat imaging in October 2017 pain managemnt team/ Dr Diop indicated they thought pain was fibromyalgia 4seen on CT Abd 09/18/16 at [facility], pending MRI 5urge and stress Social History Social History Type Response Smoking Status Current every day sm oker; Type: Cigarettes; Tobacco use times per day: 1/2 ppd; entered on: 12/24/17 Sex Patient Care team information Care Team Personnel Name: Sindy Bernal RN Position: [facility] RN Member Role: Primary Care Nurse Name: Graciela Thrasher RN Position: [facility] SN RN Member Role: Primary Care Nurse Name: Stevie Angel RN Position: [facility] RN Member Role: Primary Care Nurse Name: Keily Ortega RN Position: [facility] RN Member Role: Primary Care Nurse Name: Graciela Munroe RN Position: [facility] RN Member Role: Primary Care Nurse Name: Nichole Pichardo RN Position: [facility] RN Member Role: Primary Care Nurse Name: Melvin Whitfield RN Position: [facility] AMB Nurse Member Role: Primary Care Nurse Name: Phuong Berkowitz RN Position: [facility] RN Member Role: Primary Care Nurse Name: Pura Walker MD Position: [facility] Physician - Primary Care Member Role: PCP Address: Address: [address] [place] [id number] Name: Joselyn Rain RN Position: [facility] Hospital Railway Signal Operator Member Role: Primary Care Nurse Care Team Related Persons Name: IRA ROMERO Address: home [address] [place] [address] Name: JHON LARSON Address: home [address] [place] [address] Name: JHON LARSON Address: [address] [place] [address] Name: GALO CATALAN Name: NANCY CATALAN Address: home [address] [place] [address]
--- OUTSIDE RECORDS SUMMARY | 2023-03-25 08:29 | XMS_ITS | Continuity of Care Document ---
Author Name Unknown Organization [facility] Address [address] [place] [address]- Care Team Providers Care Forensic Ballistics Expert Name Role Phone Richardson GLASS MOLD REPAIRER, Leonora Pérez Primary Care Physician Encounter [facility] Date(s): 10/23/22 - 11/22/22 [facility] [address] [place] [address]- Allergies, Adverse Reactions, Alerts Substance Reaction Severity Status morphine Active gabapentin swelling Active MetFORMIN Hydrochloride ER black tarry stool Active SEROquel body swelling - all over Act tony Lyrica dysphagia Active Immunizations Given and Recorded Vaccine Date Status Refusal Reason [id number] 12y+ bivalent booster vax 01/30/22 Given influenza virus vaccine, inactivated 01/30/22 Give n influenza virus vaccine, inactivated 02/04/21 Give n influenza virus vaccine, inactivated 1 04/19/20 Gi tonio influenza virus vaccine, inactivated 03/12/19 Give n influenza virus vaccine, inactivated 01/19/18 Give n influenza virus vaccine, inactivated 02/16/17 Give n pneumococcal 20-valent conjugate vaccine 12/26/21 Given SARS-CoV-2 mRNA ([id number]) vax 05/14/21 Given SARS-CoV-2 (COVID-19) mRNA BNT-162b2 [...] 09/25/22 17:00:00 EDT, Route to Pharmacy Electronically, [facility], Partial fill upon patient request if the prescription is for a sched... Start Date: 09/25/22 Status: Ordered Advair Diskus 500 mcg-50 mcg inhalation powder 1, inhalation, Inhalation, 2 times a day, rinse mouth and throat after use, # 60 each, Refills 11, Tot. Refills 11, Maintenance, 09/25/22 17:00:00 EDT, Inhaler, Route to Pharmacy Electronically, [id number], [facility]... Start Date: 09/25/22 Status: Ordered albuterol 0.083% inhalation solution 3 mL = 2.5 mg, 0 Refills, Maintenance, 02/06/22 16:39:00 EDT, Partial fill upon patient request if the prescription is for a schedule II opioid drug. Start Date: 02/06/22 Status: Ordered All Day Allergy 10 mg oral tablet 1 tablet, By Mouth, Daily, # 90 tablet, 3 Refills, Maintenance, 11/20/22 16:48:00 EDT, [facility], 163, cm, 11/20/22 16:00:00 EDT, Height, 83, kg, 02/11/22 19:19:00 EST, Dry Weight Start Date: 11/20/22 Status: Ordered amLODIPine 5 mg oral tablet 5 mg, 1, tablet, By Mouth, Daily, # 90 tablet, Refills 3, Tot. Refills 3, Maintenance, 04/29/22 11:56:00 EST, Route to Pharmacy Electronically, [facility], Partial fill upon patient request if the prescription is for a schedule II opio... Start Date: 04/29/22 Status: Ordered atorvastatin 40 mg oral tablet 1 tablet = 40 mg, By Mouth, Daily, # 90 tablet, 3 Refills, Maintenance, 09/25/22 16:58:00 EDT, Tablet, [facility] Partial fill upon patient request [...] tablet, 0 Refills, Maintenance, 07/25/22 17:58:00 EDT, [facility] Partial fill upon patient request if [...] Gm, 1 Refills, Maintenance, 09/03/22 14:02:00 EDT, [facility], 15, APPLY TOPICALLY TO AFFECTED AREA TWO TIMES A DAY,163, cm, 08/14/22 16:50:00 EDT, Height, 83, kg, 11/... Start Date: 09/03/22 Status: Ordered docusate-senna 50 mg-187 mg oral tablet 2 tablet, By Mouth, 2 times a day, PRN Constipation, # 100 tablet, 11 Refills, Maintenance, 08/14/22 16:57:00 EDT, Tablet, [facility] Partial fill upon patient request if the prescription is for a schedule II opioid drug., 2 tablet By... Start Date: 08/14/22 Status: Ordered doxycycline hyclate 100 mg oral tablet 1 tablet = 100 mg, By Mouth, 2 times a day, for 7 days, # 14 tablet, 0 Refills, Acute 11/27/22 16:35:00 EDT, 11/20/22 16:35:00 EDT, Tablet, [facility] Partial fill upon patient request if the prescription is for a schedule II opioid d... Start Date: 11/20/22 Stop Date: 11/27/22 Status: Ordered duloxetine 60 mg oral enteric coated capsule 2 capsule = 120 mg, By Mouth, Daily, # 60 capsule, 11 Refills, Maintenance, 11/20/22 16:48:00 EDT, Capsule, [facility] Partial fill upon patient request. NOT INCREASED DOSE. Please cancel all other Duloxetine scripts, 163, cm, ... Start Date: 11/20/22 Status: Ordered empagliflozin 10 mg oral tablet 1 tablet = 10 mg, By Mouth, Daily in AM, # 90 tablet, 3 Refills, Maintenance, 09/25/22 17:01:00 EDT, Tablet, [facility] Partial fill upon patient request if [...] 10/22/22 15:19:00 EDT, Route to Pharmacy Electronically, [facility] 163, cm, 09/25/22 16:20:00 EDT, Height, 83, kg, 11/0... Start Date: 10/22/22 Status: Ordered lidocaine 5% topical film 1 patch, Topically, Daily, PRN Pain , Mild, remove after 12 hours, # 13 each, 5 Refills, Maintenance, 09/25/22 16:59:00 EDT, Film, [facility] Partial fill upon patient request if theprescription is for a schedule II opioid drug., 1 p... Start Date: 09/25/22 Status: Ordered lisinopril 20 mg oral tablet 20 mg, 1, tablet, By Mouth, Daily, # 90 tablet, Refills 3, Tot. Refills 3, Maintenance, 11/20/22 16:48:00 EDT, Route to Pharmacy Electronically, [facility] 163, cm, 11/20/22 16:00:00EDT, Height, 83, kg, 02/11/22 19:19:00 EST, Dry Weight Start Date: 11/20/22 Status: Ordered mirtazapine 30 mg oral tablet 1 tablet = 30 mg, By Mouth, Daily at bedtime, # 90 tablet, 1 Refills, Maintenance, 09/25/22 17:00:00 EDT, Tablet, [facility] Partial fill upon patient request if the prescription is for a schedule II opioid drug., 163, cm, 09/25/22 16... Start Date: 09/25/22 Status: Ordered omeprazole 40 mg oral enteric coated capsule 1 capsule, By Mouth, Daily, PRN NEEDED, # 30 capsule, 2 Refills, 08/26/22 13:27:00 EDT, [facility], 163, cm, 08/14/22 16:50:00 EDT, Height, 83, kg, 02/11/22 19:19:00 EST, Dry Weight Start Date: 08/26/22 Status: Ordered oxyCODONE 15 mg oral tablet 1 tablet = 15 mg, By Mouth, 3 times a day, on contract at [facility], # 84 tablet, 0 Refills, Maintenance, 11/21/22 15:54:00 EDT, [facility] Partial fill upon patient request if [...] 11/21/22 15:54:00 EDT, Route to Pharmacy Electronically, [facility], 163, cm, 11/20/22 16:00:00 EDT, Height, 83, kg, 02/11/22 19:19:00 E... Start Date: 11/21/22 Status: Ordered traZODone 50 mg oral tablet 1/2 TO 1 TABLET, By Mouth, Daily at bedtime, # 30 tablet, Refills 5, Maintenance, 08/29/22 11:31:00EDT, [facility], 163, cm, 08/14/22 16:50:00 EDT, Height, 83, kg, 02/11/22 19:19:00 EST, Dry Weight Start Date: 08/29/22 Status: Ordered triamcinolone 55 mcg/inh nasal spray 1 sprays = 55 mcg, Nares, Both, Daily, # 1 each, 5 Refills, Maintenance, 08/14/22 16:59:00 EDT, [facility], Partial fill upon patient request if the prescription is for a schedule II opioid drug., 1 sprays Nares, Both Daily, 163, cm, 0... Start Date: 08/14/22 Status: Ordered Trulicity Pen 1.5 mg/0.5 mL subcutaneous solution = 1.5 mg, Subcutaneous Infusion, Every week, # 4 each, 11 Refills, Maintenance, 11/20/22 16:49:00 EDT, [facility], Partial fill upon patient [...] Confirmed Active Panic attacks Confirmed Active N/CP Clinical Informatics Specialist Charlene Fabian [phone] Confirmed Active Syncope and collapse Confirmed Active Tobacco dependence Confirmed Active DM2 (diabetes mellitus, type 2) Confirmed 04/03/17 Active Incontinence of urine 3 Confirmed Active 1seen on MRI 10/2016, rec repeat imaging in October [address] Abd 09/18/16 at [facility], pending MRI 3urge and stress Social History Social History Type Response Smoking Status Current every day sm oker; Type: Cigarettes; Tobacco use times per day: 1/2 ppd; entered on: 12/24/17 Sex Patient Care team information Care Team Personnel Name: Sindy Bernal RN Position: [facility] RN Member Role: Primary Care Nurse Name: Graciela Thrasher RN Position: [facility] SN RN Member Role: Primary Care Nurse Name: Stevie Angel RN Position: [facility] RN Member Role: Primary Care Nurse Name: Leonora Bai NP Position: [facility] PCO Associate Professional Member Role: PCP Address: Address: [address] [place] [address] Name: Keily Ortega RN Position: [facility] RN Member Role: Primary Care Nurse Name: Nichole Pichardo RN Position: [facility] RN Member Role: Primary Care Nurse Name: Melvin Whitfield RN Position: [facility] AMB Nurse Member Role: Primary Care Nurse Name: Phuong Berkowitz RN Position: [facility] RN Member Role: Primary Care Nurse Name: Joselyn Rain RN Position: [facility] Vehicle Operator Technician Member Role: Primary Care Nurse Care Team Related Persons Name: IRA ROMERO Address: home [address] [place] [address] Name: JHON LARSON Address: [address] [place] [address] Name: JHON LARSON Address: [address] [place] [address] Name: GALO CATALAN Name: NANCY CATALAN Address: home [address] [place] [address]
--- OUTSIDE RECORDS SUMMARY | 2023-03-25 08:29 | XMS_ITS | Continuity of Care Document ---
Author Name Unknown Organization [facility] Address [address] [place] [address]- Care Team Providers Care Newspaper Photojournalist Name Role Phone Aaron GERARDO, Pura Mahajan Primary Care Physician Encounter [facility] Date(s): 12/22/22 - 01/21/23 [facility] [address] [place] [address]- Allergies, Adverse Reactions, Alerts Substance Reaction Severity Status morphine Active gabapentin swelling Active Lyrica dysphagia Active SEROquel body swelling - all over Act tony MetFORMIN Hydrochloride ER black tarry stool Active Immunizations Given and Recorded Vaccine Date Status Refusal Reason [id number] 12y+ bivalent booster vax 01/30/22 Given influenza virus vaccine, inactivated 01/30/22 Give n influenza virus vaccine, inactivated 02/04/21 Give n influenza virus vaccine, inactivated 1 04/19/20 Gi tonio influenza virus vaccine, inactivated 03/12/19 Give n influenza virus vaccine, inactivated 01/19/18 Give n influenza virus vaccine, inactivated 02/16/17 Give n pneumococcal 20-valent conjugate vaccine 12/26/21 Given SARS-CoV-2 mRNA ([id number]) vax 05/14/21 Given SARS-CoV-2 (COVID-19) mRNA BNT-162b2 vac 2 10/19/20 Given SARS-CoV-2 (COVID-19) mRNA BNT-162b2 vac 09/28/20 Given pneumococcal 23-valent vaccine 03/12/19 Given tetanus/diphtheria/pertussis, acel(Tdap) 07/29/13 Given 1Early/Late Reason: Early/Late Reason: Patient Not Available/Off Unit 2? Unknown: Resend to [facility]. Resend to [facility]. Medications acetaminophen 325 mg oral tablet 650 mg, 2, tablet, By Mouth, 3 times a day, # 100 tablet, Refills 5, Tot. Refills 5, Maintenance, 09/25/22 17:00:00 EDT, Route to Pharmacy Electronically, [facility], Partial fill upon patient request if the prescription is for a sched... Start Date: 09/25/22 Status: Ordered Advair Diskus 500 mcg-50 mcg inhalation powder 1, inhalation, Inhalation, 2 times a day, rinse mouth and throat after use, # 60 each, Refills 11, Tot. Refills 11, Maintenance, 09/25/22 17:00:00 EDT, Inhaler, Route to Pharmacy Electronically, [id number], [facility]... Start Date: 09/25/22 Status: Ordered albuterol 0.083% inhalation solution 3 mL = 2.5 mg, Neb, Every 4 hours, PRN Wheezing/Shortness of Breath, # 100 each, 11 Refills, Maintenance, 12/26/22 8:14:00 EDT, Inhalation Solution, [facility], Partial fill upon patient request if the prescription is for a schedule II... Start Date: 12/26/22 Status: Ordered All Day Allergy 10 mg oral tablet 1 tablet, By Mouth, Daily, # 90 tablet, 3 Refills, Maintenance, 11/20/22 16:48:00 EDT, [facility], 163, cm, 11/20/22 16:00:00 EDT, Height, 83, kg, 02/11/22 19:19:00 EST, Dry Weight Start Date: 11/20/22 Status: Ordered amLODIPine 5 mg oral tablet 5 mg, 1, tablet, By Mouth, Daily, # 90 tablet, Refills 3, Tot. Refills 3, Maintenance, 04/29/22 11:56:00 EST, Route to Pharmacy Electronically, [facility], Partial fill upon patient request if the prescription is for a schedule II opio... Start Date: 04/29/22 Status: Ordered atorvastatin 40 mg oral tablet 1 tablet = 40 mg, By Mouth, Daily, # 90 tablet, 3 Refills, Maintenance, 09/25/22 16:58:00 EDT, Tablet, [facility] Partial fill upon patient request if [...] Gm, 2 Refills, Maintenance, 12/26/22 8:13:00 EDT, [facility] 15, APPLY TOPICALLY TO AFFECTED AREA TWO TIMES A DAY FOR TWO WEEKS, 163, cm, ... Start Date: 12/26/22 Status: Ordered docusate-senna 50 mg-187 mg oral tablet 2 tablet, By Mouth, 2 times a day, PRN Constipation, # 100 tablet, 11 Refills, Maintenance, 08/14/22 16:57:00 EDT, Tablet, [facility]., Partial fill upon patient request if [...] Refills, Maintenance, 09/25/22 17:01:00 EDT, Tablet, [facility], Partial fill upon patient request if the prescription is for aschedule II opioid drug., 163, cm, 09/25/22 16:20:0... Start Date: 09/25/22 Status: Ordered ibuprofen 800 mg oral tablet 1, tablet, By Mouth, 3 times a day, PRN, # 90 tablet, Refills 1, Tot. Refills 1, Maintenance, NEEDED FOR PAIN, 10/22/22 15:19:00 EDT, Route to Pharmacy Electronically, [facility], 163, cm, 09/25/22 16:20:00 EDT, Height, 83, kg, 11/0... Start Date: 10/22/22 Status: Ordered Januvia 100 mg oral tablet 1 tablet, By Mouth, Daily, # 30 tablet, 11 Refills, Maintenance, 11/26/22 10:02:00 EDT, [facility], 163, cm, 11/20/22 16:00:00 EDT, Height, 83, kg, 02/11/22 19:19:00 EST, Dry Weight Start Date: 11/26/22 Status: Ordered lidocaine 5% topical film 1 patch, Topically, Daily, PRN Pain , Mild, remove after 12 hours, # 13 each, 5 Refills, Maintenance, 09/25/22 16:59:00 EDT, Film, [facility], Partial fill upon patient request if theprescription is for a schedule II opioid drug., 1 p... Start Date: 09/25/22 Status: Ordered lisinopril 20 mg oral tablet 20 mg, 1, tablet, By Mouth, Daily, # 90 tablet, Refills 3, Tot. Refills 3, Maintenance, 11/20/22 16:48:00 EDT, Route to Pharmacy Electronically, [facility], 163, cm, 11/20/22 16:00:00EDT, Height, 83, kg, 02/11/22 19:19:00 EST, Dry Weight Start Date: 11/20/22 Status: Ordered mirtazapine 30 mg oral tablet 1 tablet = 30 mg, By Mouth, Daily at bedtime, # 90 tablet, 1 Refills, Maintenance, 09/25/22 17:00:00 EDT, Tablet, [facility]., Partial fill upon patient request if the prescription is for a schedule II opioid drug., 163, cm, 09/25/22 16... Start Date: 09/25/22 Status: Ordered omeprazole 40 mg oral enteric coated capsule 1 capsule, By Mouth, Daily, PRN NEEDED, # 90 capsule, 1 Refills, Maintenance, 11/25/22 10:53:00 EDT, [facility], 163, cm, 11/20/22 16:00:00 EDT, Height, 83, kg, 02/11/22 19:19:00 EST, Dry Weight Start Date: 11/25/22 Status: Ordered oxyCODONE 15 mg oral tablet 1 tablet = 15 mg, By Mouth, Every 8 hours, PRN Pain , Severe, # 84 tablet, 0 Refills, Maintenance, 01/21/23 9:27:00 EDT, [facility], Partial fill upon patient request if the prescription is for a schedule II opioid drug., 163, cm, 11/04... Start Date: 01/21/23 Stop Date: 02/18/23 Status: Ordered oxyCODONE 15 mg oral tablet 1 tablet = 15 mg, By Mouth, 3 times a day, through [facility]. Opiate agreement history, 0 Refills, Maintenance, 01/20/23 18:26:00 EDT, Partial fill upon patient request if the prescriptionis for a schedule II opioid drug. Start Date: 01/20/23 Status: Ordered prazosin 2 mg oral capsule via psychiatry [facility], 0 Refills, Maintenance, 01/19/23 21:19:00 EDT, Partial fill upon patient request if the prescription is for a schedule II opioid drug. Start Date: 01/19/23 Status: Ordered tiZANidine 4 mg oral tablet 1, tablet, By Mouth, 3 times a day, PRN, # 90 tablet, Refills 1, Maintenance, NEEDED FOR SEVERE PAIN, 11/21/22 15:54:00 EDT, Route to Pharmacy Electronically, [facility], 163, cm, 11/20/22 16:00:00 EDT, Height, 83, kg, 02/11/22 19:19:00 E... Start Date: 11/21/22 Status: Ordered traZODone 50 mg oral tablet 1/2 TO 1 TABLET, By Mouth, Daily at bedtime, # 30 tablet, Refills 5, Maintenance, 08/29/22 11:31:00EDT, Route to Pharmacy Electronically, [facility], 163, cm, 08/14/22 16:50:00 EDT, Height, 83, kg, 02/11/22 19:19:00 EST, Dry Weight Start Date: 08/29/22 Status: Ordered triamcinolone 55 mcg/inh nasal spray 1 sprays = 55 mcg, Nares, Both, Daily, # 1 each, 5 Refills, Maintenance, 08/14/22 16:59:00 EDT, [facility], Partial fill upon patient request if the prescription is for a schedule II opioid drug., 1 sprays Nares, Both Daily, 163, cm, 0... 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 Charlene Fabian [phone] Confirmed Active Syncope and collapse Confirmed Active Tobacco dependence Confirmed Active DM2 (diabetes mellitus, type 2) Confirmed 04/03/17 Active Incontinence of urine 5 Confirmed Active 1on polysomnogram 2seen on MRI 10/2016, rec repeat imaging in October 2017 pain managemnt team/ Dr Diop indicated they thought pain was fibromyalgia 4seen on CT Abd 09/18/16 at [facility], pending MRI 5urge and stress Social History Social History Type Response Smoking Status Current every day sm oker; Type: Cigarettes; Tobacco use times per day: 1/2 ppd; entered on: 12/24/17 Sex Patient Care team information Care Team Personnel Name: Sindy Bernal RN Position: [facility] RN Member Role: Primary Care Nurse Name: Graciela Thrasher RN Position: [facility] SN RN Member Role: Primary Care Nurse Name: Stevie Angel RN Position: [facility] RN Member Role: Primary Care Nurse Name: Keily Ortega RN Position: [facility] RN Member Role: Primary Care Nurse Name: Graciela Munroe RN Position: [facility] RN Member Role: Primary Care Nurse Name: Nichole Pichardo RN Position: [facility] RN Member Role: Primary Care Nurse Name: Melvin Whitfield RN Position: [facility] AMB Nurse Member Role: Primary Care Nurse Name: Phuong Berkowitz RN Position: [facility] RN Member Role: Primary Care Nurse Name: Pura Walker MD Position: [facility] Physician - Primary Care Member Role: PCP Address: Address: [address] [place] [id number] [[email or web address]] Name: Joselyn Rain RN Position: [facility] Hospital Wind Energy Technician Member Role: Primary Care Nurse Care Team Related Persons Name: IRA ROMERO Address: home [address] [place] [address] Name: JHON LARSON Address: [address] [place] [address] Name: JHON LARSON Address: [address] [place] [address] Name: GALO CATALAN Name: NANCY CATALAN Address: home [address] [place] [address]
--- OUTSIDE RECORDS SUMMARY | 2023-03-25 08:29 | XMS_ITS | Continuity of Care Document ---
Author Name Unknown Organization [facility] Address [address] [place] [address]- Care Team Providers Care Gamb Cutter Name Role Phone Richardson QUIROZ, Leonora Pérez Primary Care Physician [phone] [facility]counter [facility] Date[facility]s): 02/06/22 - 03/08/22 [facility] [address] [place] [address]- Encounter Diagnosis INA (stress urinary incontinence, female)(Discharge Diagnosis) - 02/11/19 Attending Physician: Clarence Reynaga Admitting Physician: Clarence Reynaga Referring Physician: Clarence Reynaga Allergies, Adverse Reactions, Alerts Substance Reaction Severity Status morphine Active gabapentin swelling Active MetFORMIN Hydrochloride ER black tarry stool Active Lyrica dysphagia Active SEROquel body swelling - all over Act tony Immunizations Given and Recorded Vaccine Date Status Refusal Reason [id number] 12y+ bivalent booster vax 01/30/22 Given influenza virus vaccine, inactivated 01/30/22 Give n influenza virus vaccine, inactivated 02/04/21 Give n influenza virus vaccine, inactivated 1 04/19/20 Gi tonio influenza virus vaccine, inactivated 03/12/19 Give n influenza virus vaccine, inactivated 01/19/18 Give n influenza virus vaccine, inactivated 02/16/17 Give n pneumococcal 20-valent conjugate vaccine 12/26/21 Given SARS-CoV-2 mRNA ([id number]) vax 05/14/21 Given SARS-CoV-2 (COVID-19) mRNA [id number]-[id number] [...] 01/30/22 10:50:00 EDT, Route to Pharmacy Electronically, [facility], Partial fill upon patient request if the prescription is for a schedule II opio... Start Date: 01/30/22 Status: Ordered cetirizine 10 mg oral tablet 1 tablet = 10 mg, By Mouth, Daily, # 30 tablet, 5 Refills, Maintenance, 08/28/21 9:07:00 EDT, Tablet, [facility] 162, cm, 08/22/21 9:46:00 EDT, Height, 86, kg, 07/23/21 0:58:00 EDT, Dry Weight Start Date: 08/28/21 Status: Ordered cholecalciferol 5000 intl units oral capsule 1 capsule = 125 mcg, By Mouth, Daily, with food, # 100 capsule, 2 Refills, Maintenance, 02/11/21 11:17:00 EST, Capsule, [facility]/pharmacy #[id number], Partial fill upon [...] 11 Refills, Maintenance, 02/21/22 10:35:00 EST, Tablet, [facility] Partial fill upon patient request if the prescription is for a schedule II opioid drug., 2 tablet By... Start Date: 02/21/22 Status: Ordered duloxetine 60 mg oral enteric coated capsule 2 capsule = 120 mg, By Mouth, Daily, # 60 capsule, 5 Refills, Maintenance, 11/14/21 11:41:00 EDT, Capsule, [facility] Partial fill upon patient request. NOT INCREASED DOSE. Please cancel all other Duloxetine scripts, 162, cm, 11/14/21... Start Date: 11/14/21 Status: Ordered empagliflozin 10 mg oral tablet 1 tablet = 10 mg, By Mouth, Daily in AM, # 30 tablet, 5 Refills, Maintenance, 02/20/22 12:04:00 EST, Tablet, [facility], Partial fill upon patient request if the prescription is for aschedule II opioid drug., 163, cm, 02/11/22 19:19:0... Start Date: 02/20/22 Status: Ordered fluticasone 50 mcg/inh nasal spray See Instructions, USE 1 SPRAY IN BOTH NOSTRILS 2 TIMES A DAY, # 16 mL, 1 Refills, 07/08/21 9:44:00 EDT, [facility] 30, USE 1 SPRAY IN BOTH NOSTRILS 2 TIMES A DAY, 162.5, cm, 228:49:00 EDT, Height, 85.8, kg, 06/04/21 10:03:00 ES... Start Date: 07/08/21 Status: Ordered ibuprofen 800 mg oral tablet 1, tablet, By Mouth, 3 times a day, PRN, # 90 tablet, Refills 1, Maintenance, NEEDED FOR PAIN, 03/05/22 15:56:00 EST, Route to Pharmacy Electronically, [facility], 163, cm, 02/11/22 19:19:00 EST, Height, [...] Refills, Maintenance, 01/06/22 12:07:00 EDT, Solution, [facility] ;, 163, cm, 01/03/22 11:20:00 EDT, Height, 84, kg, 01/02/22 19:36:00 EDT, Dry Weight Start Date: 01/06/22 Status: Ordered lidocaine 5% topical film 1 patch, Topically, Daily, PRN Pain , Mild, remove after 12 hours, # 13 each, 5 Refills, Maintenance, 12/26/21 10:37:00 EDT, Film, [facility], Partial fill upon patient request if theprescription is for a schedule II opioid drug., 1 p... Start Date: 12/26/21 Status: Ordered lisinopril 20 mg oral tablet 20 mg, 1, tablet, By Mouth, Daily, # 90 tablet, Refills 3, Tot. Refills 3, Maintenance, 08/28/21 9:07:00 EDT, Route to Pharmacy Electronically, [facility], 162, cm, 08/22/21 9:46:00 EDT, Height, 86, kg, 07/23/21 0:58:00 EDT, Dry Weight Start Date: 08/28/21 Status: Ordered Melatonin 10 mg oral tablet 1 tablet = 10 mg, By Mouth, Daily at bedtime, # 30 each, 5 Refills, Maintenance, 11/14/21 11:42:00 EDT, [facility], Partial fill upon patient [...] PRN NEEDED, # 30 capsule, 2 Refills, [facility], 162, cm, 09/06/21 13:04:00 EDT, Height, 86, kg, 07/23/21 0:58:00 EDT, Dry Weight Start Date: 10/02/21 Status: Ordered oxyCODONE 15 mg oral tablet 1 tablet = 15 mg, By Mouth, 3 times a day, for 28 days, On contract at [facility]., # 84 tablet, 0 Refills, Acute 03/26/22 15:15:00 EST, 02/26/22 15:15:00 EST, [facility], Partial fill uponpatient request [...] capsule, 0 Refills, Maintenance, 03/06/22 16:55:00 EST, [facility], [facility], cm, 02/11/22 19:19:00 EST, Height, 83, kg, 02/11/22 19:19:00 EST, Dry Weight Start Date: 03/06/22 Status: Ordered Trulicity Pen 3 mg/0.5 mL subcutaneous solution See Instructions, INJECT 0.5 ML SUBCUTANEOUSLY EVERY WEEK. ROTATE INJECTION SITES, # 2 mL, 5 Refills, Maintenance, 02/05/22 19:58:00 EDT, [facility], 163, cm, 02/05/22 11:00:00 EDT, Height,84, kg, [...] Confirmed Active Panic attacks Confirmed Active N/CP Neonatal Intensive Care Nurse Charlene Fabian [phone] Confirmed Active Syncope and collapse Confirmed Active Tobacco dependence Confirmed Active DM2 (diabetes mellitus, type 2) Confirmed 04/03/17 Active Incontinence of urine 3 Confirmed Active 1seen on MRI 10/2016, rec repeat imaging in October [address] Abd 09/18/16 at [facility] [place], pending MRI 3urge and stress Diagnosis Diagnosis [...] Team Personnel Name: Sindy Bernal RN Position: [facility] RN Member Role: Primary Care Nurse Name: Graciela Thrasher RN Position: [facility] SN RN Member Role: Primary Care Nurse Name: Stevie Angel RN Position: [facility] RN Member Role: Primary Care Nurse Name: Leonora Bai NP Position: [facility] Associate Professional Member Role: PCP Address: Address: [address] [place] [id number] Name: Keily Ortega RN Position: [facility] RN Member Role: Primary Care Nurse Name: Graciela Munroe RN Position: [facility] RN Member Role: Primary Care Nurse Name: Nichole Pichardo RN Position: [facility] RN Member Role: Primary Care Nurse Name: Melvin Whitfield RN Position: [facility] PCO RN Member Role: Primary Care Nurse Name: Phuong Berkowitz RN Position: [facility] RN Member Role: Primary Care Nurse Name: Joselyn Rain RN Position: [facility] Hospital Machine Biller Member Role: Primary Care Nurse Care Team Related Persons Name: NICK IRA Address: home [address] [place] [address] Name: JHON LARSON Address: [address] [place] [address] Name: JHON LARSON Address: [address] [place] [address] Name: GALO CATALAN Name: NANCY CATALAN Address: home [address] [place] [address]
--- OUTSIDE RECORDS SUMMARY | 2023-03-25 08:29 | XMS_ITS | Continuity of Care Document ---
Author Name Unknown Organization [facility] Address [address] [place] [address]- Care Team Providers Care Hydro Plant Technician Name Role Phone Richardson QUIROZ, Leonora Pérez Primary Care Physician [phone] [facility] Date[facility]s): 10/05/19 - 11/04/19 [facility] [address] [place] [address]- [facility] Allergies, Adverse Reactions, Alerts Substance Reaction [...] 12:48:00 EST, Powder, Route to Pharmacy Electronically, [id number], [id number], 158, cm, 04/26/19 9:58:00 EST, [...] tablet, 5 Refills, Maintenance, 10/06/19 7:45:00EDT, Tablet, [facility]/pharmacy #[id number], 160, cm, 09/28/19 8:58:00 EDT, [...] 3 Refills, Maintenance, 09/02/19 10:23:00 EDT, Tablet, [facility]/pharmacy #[id number], PLEASE CANCEL LISINOPRIL, 160, cm, [...] 6 Refills, Maintenance, 09/12/19 14:39:00 EDT, Tablet, [facility]/pharmacy #[id number], 160, cm, 07/22/19 15:08:00 [...] 2Refills, Maintenance, 10/06/19 7:45:00 EDT, EC Capsule, [facility]/pharmacy #[id number], cancel Ranitidine, 160,cm, 09/28/19 8:58:00 EDT, Height, 86.8, kg, ... Start Date: 10/06/19 Status: Ordered Pen [place], 31 G x 5 mm BD Ultra [...] 05/30/19 18:52:00 EST, Route to Pharmacy Electronically, [facility]/pharmacy #[id number], 160, cm, 05/30/19 18:08:00 EST, [...] 11/01/19 15:23:00 EDT, Route to Pharmacy Electronically, [facility]/pharmacy #[id number], 163, cm, 11/01/19 14:40:00 [...] [address] Abd 09/18/16 at [facility], [place] 6surgically repaired July 2015 Dr. Sg MENDEZ 7urge and stress Social History Social History Type Response Tobacco Use: Pt states she q uit smoking 1 week ago. Sex Female
--- OUTSIDE RECORDS SUMMARY | 2023-03-25 08:29 | XMS_ITS | Continuity of Care Document ---
Author Name Unknown Organization [facility] Address [address] [place] [address]- Care Team Providers Care Fuel Pilot Engineer Name Role Phone Richardson SENIOR SALES ADMINISTRATOR, Leonora Pérez Primary Care Physician [place] [facility] [place]s): 02/21/19 - 03/30/19 [facility] [address] [place] [address]- [facility] Attending Physician: Not on Staff, Attending [...] 15:03:51 EDT, Powder, Route to Pharmacy Electronically, [id number], [facility]/pharmacy #[id number] Start Date: 11/15/18 Status: Ordered albuterol [...] USE 1 SPRAY IN BOTH NOSTRILS DAILY, [facility]/pharmacy #[id number] Start Date: 12/01/18 Status: Ordered glipiZIDE [...] HOURS THEN LEAVE OFF FOR 12 HOURS, [facility]/pharmacy #[id number] Start Date: 12/20/18 Status: Ordered lisinopril 5 mg oral tablet 2.5 mg, 0.5, tablet, By Mouth, Daily, # 15 tablet, Refills 0, Tot. Refills 0, Maintenance, 03/15/1910:26:38 EST, Route to Pharmacy Electronically, [id number], [facility]/pharmacy #[id number], 163, cm, 03/15/19 6:25:33 EST, Height, [...] not to exceed 3000 mg/day. instructions in chinese, # 120 tablet, 2 Refills, Maintenance, 11/04/18 [...] EST, Compound Start Date: 02/24/19 Status: Ordered Pulmicort Flexhaler 180 mcg 1 [...] 1 TABLET BY MOUTH EVERYDAY AT BEDTIME, [facility]/pharmacy #[id number] Start Date: 01/27/19 Status: Ordered Senexon-S 2 tablet, By Mouth, Daily at bedtime, 0 Refills, Maintenance, 11/25/18 10:10:49 EDT Start Date: 11/25/18 Status: Ordered tiZANidine 4 mg oral tablet 4 mg, 1, tablet, By Mouth, Every 8 hours, # 90 tablet, Refills 2, Tot. Refills 2, Soft Stop, 03/10/19 12:35:20 EST, Route to Pharmacy Electronically, [id number], [facility]/pharmacy #[id number], 163, cm, 02/28/19 16:57:41 EST, Height, 81,... Start Date: 03/10/19 Status: Ordered Tums 500 mg oral tablet, chewable 500 mg, 1, tablet, Chew, 2 times a day, PRN, # 45 tablet, Refills 0, Tot. Refills 0, Maintenance, as needed for dyspepsia, 10/18/18 15:31:54 EDT, Route to Pharmacy Electronically, [id number], [facility]/pharmacy #[id number] Start Date: 10/18/18 Status: Ordered Urinary [...] on CPAP(Confirmed) Active Panic attacks(Confirmed) Active *BHN/BHCP/SARAHarmony MacdonaldLljjeyb-[phone]/[facility], active care coordination(Confirmed) Active Acute meniscal tear of right knee(Confirmed) 7 06/2015 Active Tobacco dependence(Confirmed) Active DM2 (diabetes mellitus, type 2)(Confirmed) 04/03/17 Active Incontinence of urine(Confirmed) 8 Active 1surgically repaired November 2015, Dr. Sg MENDEZ 2DJD Lumbar Spine per MRI 3L3-L4 disc herniation per client report 4seen on MRI 10/2016, rec repeat imaging in October 2017 5done in [place] 6[place] on CT Abd 09[place]18[place]16 [place] [facility] [place] 7surgically repaired July 2015 Dr. Sg MENDEZ 8urge and stress Social History Social History Type Response Tobacco Use: Pt states she q uit smoking 1 week ago. Sex
--- OUTSIDE RECORDS SUMMARY | 2023-03-25 08:29 | XMS_ITS | Continuity of Care Document ---
Author Name Unknown Organization [facility] Address [address] [place] [address]- Care Team Providers Care Consumer Credit Counselor Name Role Phone Richardson QUIROZ, Leonora Pérez Primary Care Physician [facility] Date(s): 06/01/19 - 08/24/[address] [address]- [facility] Attending Physician: Madhav Watson MD Admitting Physician: Madhav Watson MD Allergies, Adverse Reactions, Alerts Substance Reaction [...] 12:48:00 EST, Powder, Route to Pharmacy Electronically, [id number], [facility]/pharmacy #[id number], 158, cm, 04/26/19 9:58:00 EST, H... Start Date: 04/27/19 Status: Ordered albuterol 0.083% inhalation solution 3 mL = 2.5 mg, Inhalation, Every 4 hours, PRN for wheezing, # 100 each, 5 Refills, Maintenance, 06/27/19 14:32:00 EDT, Solution, [facility]/pharmacy #[id number], 160, cm, 06/01/19 14:08:00 [...] 5 Refills, Maintenance, 04/19/19 15:40:00 EST, Tablet, [facility]/pharmacy #[id number], 158, cm, 04/04/19 15:21:00 EST, Height, 82, kg, 04/01/19 16:10:00 EST, Dry Weight Start Date: 04/19/19 Status: Ordered clonazePAM 0.5 mg oral tablet TAKE 1 TABLET BY MOUTH TWICE A DAY NEEDED Start Date: 06/02/19 Status: Ordered clotrimazole 1% topical cream 1 application, Topically, 2 times a day, # 30 Gm, 0 Refills, Maintenance, 05/30/19 19:02:00 EST, Cream, [facility]/pharmacy #[id number], 1 application Topically 2 [...] 5 Refills, Maintenance, 04/28/19 16:05:00 EST, Tablet, [facility]/pharmacy #[id number], 158, cm, 04/28/19 14:51:00 EST, Height, 82, kg, 04/01/19 16:10:00 EST, Dry Weight Start Date: 04/28/19 Status: Ordered lidocaine 5% topical film 1 patch, Topically, Daily, For chronic radicular back pain, # 30 patch, 5 Refills, Maintenance, 06/27/19 14:37:00 EDT, [facility]/pharmacy #[id number], 1 patch Topically Daily,Instr:For chronic radicular back pain, 160, cm, 06/01/19 14:08:00 EST, Height, 88.9, kg,... Start Date: 06/27/19 Status: Ordered lisinopril 10 mg oral tablet 10 mg, 1, tablet, By Mouth, Daily, # 90 tablet, Refills 3, Tot. Refills 3, Maintenance, 05/08/19 20:27:00 EST, Route to Pharmacy Electronically, [facility]/pharmacy #[id number], to replace 2.5mg dose, [...] indonesian, # 120 tablet, 2 Refills, Maintenance, 07/25/19 [...] pain, for 28 days, on contract at [facility]., # 56 tablet, 0 Refills, Acute 09/12/19 14:55:00 EDT, 08/15/19 14:55:00 EDT, [facility]/pharmacy #[id number], Partial fill upon patient request, 160, cm, 07/22/19 15:08:00 EDT,... Start Date: 08/15/19 Stop Date: 09/12/19 Status: Ordered prazosin 1 mg oral capsule 1 mg, 1, capsule, By Mouth, Daily at bedtime, for nightmares, # 30 capsule, Refills 0, Tot. Refills0, Maintenance, 05/30/19 18:52:00 EST, Route to Pharmacy Electronically, [facility]/pharmacy #[id number], 160, cm, 05/30/19 18:08:00 [...] tablet, 5 Refills, Maintenance, 05/04/19 9:35:00 EST, [facility]/pharmacy #[id number], 158, cm, 04/28/19 14:51:00 EST, Height, 82, kg, 04/01/19 16:10:00 EST, Dry Weight Start Date: 05/04/19 Status: Ordered Senna 8.6 mg oral tablet 8.6 mg, 1, tablet, By Mouth, Daily at bedtime, # 100 tablet, Refills 2, Tot. Refills 2, Maintenance, 06/10/19 16:12:00 EST, Route to Pharmacy Electronically, [facility]/pharmacy #[id number], 160, cm, 06/01/19 14:08:00 EST, Height, 88.9, kg, 05/23/19 22:09:00 EST,... Start Date: 06/10/19 Status: Ordered Spiriva Respimat 60 ACT 2.5 mcg/inh inhalation aerosol 2 puffs, Inhalation, Daily, # 1 each, 5 Refills, Maintenance, 04/26/19 10:30:00 EST, [facility]/pharmacy #[id number], 158, cm, 04/26/19 9:58:00 EST, Height, 82, kg, 04/01/19 16:10:00 EST, Dry Weight Start Date: 04/26/19 Status: Ordered tiZANidine 2 mg oral tablet 2 mg, 1, tablet, By Mouth, 2 times a day, PRN, # 30 tablet, Refills 2, Tot. Refills 2, Maintenance,as needed for muscle spasm, 07/25/19 8:41:00 EDT, Route to Pharmacy Electronically, [facility]/pharmacy #[id number], 160, cm, 07/22/19 15:08:00 [...] on CPAP(Confirmed) Active Panic attacks(Confirmed) Active *BHN/CP/Efrem Macdonald-[phone]/Health [facility], active care coordination(Confirmed) Active Acute meniscal [...] 5[place] on CT [place] 09[place]18[place]16 [place] [facility] 6surgically repaired July 2015 Dr. Sg MENDEZ 7urge and stress Social History Social History Type Response Tobacco Use: Pt states she q uit smoking 1 week ago. Sex Female
--- OUTSIDE RECORDS SUMMARY | 2023-03-25 08:30 | XMS_ITS | Continuity of Care Document ---
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 YEARS TEACHER, Leonora Pérez Primary Care Physician Encounter [facility] Date(s): 12/04/21 - 01/03/22 [facility] [address] [place] [address]- Allergies, Adverse Reactions, Alerts Substance Reaction Severity Status morphine Active gabapentin swelling Active Lyrica dysphagia Active MetFORMIN Hydrochloride ER black tarry stool Active SEROquel body swelling - all over Act tony Immunizations Given and Recorded Vaccine Date Status Refusal Reason pneumococcal 20-valent conjugate vaccine 12/26/21 Given SARS-CoV-2 mRNA ([id number]) vax 05/14/21 Given influenza virus vaccine, inactivated [...] 9:20:00 EST, Powder, Route to Pharmacy Electronically, [id number], [facility], 162.5, cm, 05/10/21 14:47... Start Date: 05/15/21 Status: Ordered albuterol 0.083% inhalation solution 3 mL = 2.5 mg, Inhalation, Every 4 hours, PRN for wheezing, # 100 each, 2 Refills, Maintenance, 11/22/21 12:30:00 EDT, Solution, [facility]., 162, cm, 11/14/21 11:01:00 EDT, Height, 86, kg, 07/23/21 0:58:00 EDT, Dry Weight Start Date: 11/22/21 Status: Ordered amitriptyline 25 mg oral tablet 25 mg, 1, tablet, By Mouth, Daily at bedtime, # 30 tablet, Refills 2, Tot. Refills 2, Maintenance, 08/30/21 12:06:00 EDT, Route to Pharmacy Electronically, [facility], Partial fill upon patient request if the prescription is for a sche... Start Date: 08/30/21 Status: Ordered Atrovent HFA 17 mcg/inh inhalation aerosol 2 puffs, Inhalation, 4 times a day, # 12.9 Gm, 5 Refills, Maintenance, 12/26/21 10:37:00 EDT, Aerosol, [facility], Partial fill upon patient request if the prescription is for a schedule II opioid drug., 162, cm, 12/26/21 10:16:00 EDT,... Start Date: 12/26/21 Status: Ordered cetirizine 10 mg oral tablet 1 tablet = 10 mg, By Mouth, Daily, # 30 tablet, 5 Refills, Maintenance, 08/28/21 9:07:00 EDT, Tablet, [facility]., 162, cm, 08/22/21 9:46:00 EDT, Height, [...] 1 Refills, Maintenance, 12/26/21 10:38:00 EDT, Cream, [facility]., 1 application Topically 2 times a [...] tablet, 0 Refills, Maintenance, 10/24/2219:09:00 EDT, Tablet, [facility] Partial fill upon patient request if the prescription is for a schedule II opioid drug., 2 tablet By... Start Date: 10/23/21 Status: Ordered duloxetine 60 mg oral enteric coated capsule 2 capsule = 120 mg, By Mouth, Daily, # 60 capsule, 5 Refills, Maintenance, 11/14/21 11:41:00 EDT, Capsule, [facility] Partial fill upon patient request. NOT INCREASED DOSE. Please cancel all other Duloxetine scripts, 162, cm, 11/14/21... Start Date: 11/14/21 Status: Ordered empagliflozin 10 mg oral tablet 1 tablet = 10 mg, By Mouth, Daily in AM, # 30 tablet, 5 Refills, Maintenance, 08/28/21 9:07:00 EDT,Tablet, [facility] Partial fill upon patient request if the prescription is for a schedule II opioid drug., 162, cm, 08/22/21 9:46:00... Start Date: 08/28/21 Status: Ordered fluticasone 50 mcg/inh nasal spray See Instructions, USE 1 SPRAY IN BOTH NOSTRILS 2 TIMES A DAY, # 16 mL, 1 Refills, 07/08/21 9:44:00 EDT, [facility] 30, USE 1 SPRAY [...] Mouth, Daily, # 30 tablet, 5 Refills, [facility], 162, cm, 11/14/21 11:01:00EDT, Height, 86, kg, 07/23/21 0:58:00 EDT, Dry Weight Start Date: 11/19/21 Status: Ordered ibuprofen 800 mg oral tablet 800 mg, 1, tablet, By Mouth, 3 times a day, PRN, # 90 tablet, Refills 1, Tot. Refills 1, Maintenance, Pain , Mild, 10/31/21 13:59:00 EDT, Route to Pharmacy Electronically, [facility],please fill 800mg instead of 600mg, [...] Refills, Maintenance, 07/08/21 9:38:00 EDT, Solution, [facility], ;, 162.5, cm, 07/08/21 8:49:00 EDT, Height, 85.8, kg, 06/04/21 10:03:00 EST, Dry Weight Start Date: 07/08/21 Status: Ordered lidocaine 5% topical film 1 patch, Topically, Daily, PRN Pain , Mild, remove after 12 hours, # 13 each, 5 Refills, Maintenance, 12/26/21 10:37:00 EDT, Film, [facility], Partial fill upon patient request if theprescription is for a schedule II opioid drug., 1 p... Start Date: 12/26/21 Status: Ordered lisinopril 20 mg oral tablet 20 mg, 1, tablet, By Mouth, Daily, # 90 tablet, Refills 3, Tot. Refills 3, Maintenance, 08/28/21 9:07:00 EDT, Route to Pharmacy Electronically, [facility], 162, cm, 08/22/21 9:46:00 EDT, Height, 86, kg, 07/23/21 0:58:00 EDT, Dry Weight Start Date: 08/28/21 Status: Ordered Melatonin 10 mg oral tablet 1 tablet = 10 mg, By Mouth, Daily at bedtime, # 30 each, 5 Refills, Maintenance, 11/14/21 11:42:00 EDT, [facility], Partial fill upon patient request if the prescription is for a schedule II opioid drug., 162, cm, 11/14/21 11:01:00 EDT... Start Date: 11/14/21 Status: Ordered mirtazapine 30 mg oral tablet 1 tablet = 30 mg, By Mouth, Daily at bedtime, Maintenance, 05/24/19 9:12:00 EST, Tablet Start Date: 05/24/19 Status: Ordered nystatin topical 207465 u/gm powder 1 application, Topically, 2 times a day, # 60 Gm, 1 Refills, Maintenance, 12/26/21 10:38:00 EDT, Powder, [facility]., Partial fill upon patient request if the prescription is for a schedule II opioid drug., 1 application Topically 2 quinton... Start Date: 12/26/21 Status: Ordered omeprazole 40 mg oral enteric coated capsule 1 capsule, By Mouth, Daily, PRN NEEDED, # 30 capsule, 2 Refills, [facility], 162, cm, 09/06/21 13:04:00 EDT, Height, 86, kg, 07/23/21 0:58:00 EDT, Dry Weight Start Date: 10/02/21 Status: Ordered oxyCODONE 5 mg oral tablet 5 mg, 1, tablet, By Mouth, 2 times a day, for 26 days, # 52 tablet, Refills 0, Tot. Refills 0, Acute 01/21/22 10:39:00 EDT, 12/26/21 10:39:00 EDT, Route to Pharmacy Electronically, [facility]., Partial fill upon patient request if the p... Start Date: 12/26/21 Stop Date: 01/21/22 Status: Ordered OxyCONTIN 10 mg oral tablet, extended release 10 mg, 1, tablet, By Mouth, Every 12 hours, # 56 tablet, Refills 0, Tot. Refills 0, Maintenance, 12/23/21 17:17:00 EDT, Route to Pharmacy Electronically, [facility]., Partial fill uponpatient request if the prescription is for a schedu... Start Date: 12/23/21 Stop Date: 01/20/22 Status: Ordered potassium chloride 10 mEq oral capsule, extended release 2 capsule = 20 mEq, By Mouth, Daily, do not crush or chew. with a full glass of water. with food., # 60 capsule, 0 Refills, Maintenance, 01/03/22 11:56:00 EDT, CR Capsule, [facility].,Partial fill upon patient request if the pres... Start Date: 01/03/22 Stop Date: 02/02/22 Status: Ordered predniSONE 20 mg oral tablet 2 tablet = 40 mg, By Mouth, Daily, for 3 days, # 6 tablet, 0 Refills, Acute 01/06/22 11:55:00 EDT, 01/03/22 11:55:00 EDT, Tablet, [facility]., Partial fill upon patient request if the prescription is for a schedule II opioid drug., 163,... Start Date: 01/03/22 Stop Date: 01/06/22 Status: Ordered Senna 8.6 mg oral tablet 8.6 mg, 1, tablet, By Mouth, Daily at bedtime, # 100 tablet, Refills 11, Tot. Refills 11, Maintenance, 07/08/21 9:39:00 EDT, Route to Pharmacy Electronically, [facility]., 162.5, cm, 07/08/21 8:49:00 EDT, Height, 85.8, kg, 06/04/21 10:0... Start Date: 07/08/21 Status: Ordered Tessalon Perles 100 mg oral capsule 1 capsule = 100 mg, By Mouth, 3 times a day, PRN Cough, for 14 days, # 42 capsule, 0 Refills, Acute01/17/22 11:55:00 EDT, 01/03/22 11:55:00 EDT, Capsule, [facility]., Partial fill upon patient request if the prescription is for a sched... Start Date: 01/03/22 Stop Date: 01/17/22 Status: Ordered Trulicity Pen 3 mg/0.5 mL subcutaneous solution 0.5 mL = 3 mg, Subcutaneous Injection, Every week, rotate injection sites, # 2 mL, 5 Refills, Maintenance, 09/03/21 15:49:00 EDT, Solution, [facility]., Partial fill upon patient request if [...] Confirmed Active Panic attacks Confirmed Active BHN/BHCP Package Collector Charlene Fabian [phone] Confirmed Active Syncope and collapse Confirmed Active [...] Personnel Name: Leonora Bai NP Address: Address: [address] [place] [address]
--- OUTSIDE RECORDS SUMMARY | 2023-03-25 08:30 | XMS_ITS | Continuity of Care Document ---
Author Name Unknown Organization [facility] Address [address] [place] [address]- Care Team Providers Care Professor Of Political Science Name Role Phone Richardson QUIROZ, Leonora Pérez Primary Care Physician Encounter [facility] ACCT R [id number] Date(s): 02/02/21 - 04/12/21 [facility] [address], [place] [address] Attending Physician: Richardson QUIROZ, Leonora Pérez [...] 19:30:00 EDT, Route to Pharmacy Electronically, [facility]/pharmacy #[id number], Partial fill upon patient request if the prescription is for a schedule II o... Start Date: 01/16/21 Status: Ordered Advair Diskus 500 mcg-50 mcg inhalation powder 1, puffs, Inhalation, 2 times a day, j45.909, # 1 each, Refills 11, Tot. Refills 11, Maintenance, 04/05/20 14:12:00 EST, Powder, Route to Pharmacy Electronically, [id number], [facility]/pharmacy #[id number], 162.56, cm, 03/27/20 11:36:00... Start Date: 04/05/20 Status: Ordered albuterol 0.083% inhalation solution 3 mL = 2.5 mg, Inhalation, Every 4 hours, PRN for wheezing, # 100 each, 2 Refills, Maintenance, 08/15/20 10:22:00 EDT, Solution, [facility]/pharmacy #[id number], 163, cm, 08/09/20 8:45:00 EDT, Height, 84.8, kg, 06/25/20 20:28:00 EDT, Dry Weight Start Date: 08/15/20 Status: Ordered amitriptyline 50 mg oral tablet See Instructions, 1.5 tablets by Mouth Daily at bedtime, # 45 each, 1 Refills, 03/21/21 16:11:00 EST, [facility]/pharmacy #[id number], 162.5, cm, 03/14/21 10:31:00 EST, Height, 90.9, kg, 02/02/21 5:59:00 EDT, DryWeight Start Date: 03/21/21 Status: Ordered atorvastatin 20 mg oral tablet 3 tablet = 60 mg, By Mouth, Daily, # 90 tablet, 3 Refills, Maintenance, 04/05/20 14:11:00 EST, Tablet, [facility]/pharmacy #[id number], Partial fill upon patient request if the prescription is for a schedule II opioid drug., 162.56, cm, 03/27/20 11:36:00 EST, Heig... Start Date: 04/05/20 Status: Ordered capsaicin 0.025% topical cream 1 application, Topically, 3 times a day, # 45 Gm, 3 Refills, Maintenance, 11/01/19 15:25:00 EDT, Cream, [facility]/pharmacy #[id number], 1 application Topically 3 times a day, 163, cm, 11/01/19 14:40:00 EDT, Height, 80, kg, 10/29/19 0:29:00 EDT, Dry Weight Start Date: 11/01/19 Status: Ordered cetirizine 10 mg oral tablet 1 tablet = 10 mg, By Mouth, Daily, # 30 tablet, 5 Refills, Maintenance, 06/20/20 13:18:00 EDT, Tablet, [facility]/pharmacy #[id number], 162, cm, 05/24/20 9:01:00 EST, Height, 80, kg, 04/18/20 9:48:00 EST, Dry Weight Start Date: 06/20/20 Status: Ordered cholecalciferol 5000 intl units oral capsule 1 capsule = 125 mcg, By Mouth, Daily, with food, # 100 capsule, 2 Refills, Maintenance, 02/11/21 11:17:00 EST, Capsule, [facility]/pharmacy #[id number], Partial fill upon patient request if [...] Refills, Maintenance, 12/05/20 12:42:00 EDT, Cream, [facility]/pharmacy #[id number], 1 application Topically 2 times a [...] Refills, Maintenance, 02/18/21 15:09:00 EST, Capsule, [facility]/pharmacy #[id number], Partial fill upon patient request. NOT [...] 16 mL, 1 Refills, Maintenance, [id number], 30, USE 1 SPRAY IN BOTH NOSTRILS [...] Refills, Maintenance, 03/01/21 12:42:00 EST, Tablet, [facility]/pharmacy #[id number], 155, cm, 02/18/21 14:54:00 EST, Height, 90.9, kg, 02/02/21 5:59:00 EDT, DryWeight Start Date: 03/01/21 Status: Ordered Lantus 100 u/ml subcutaneous solution = 40 units, Subcutaneous Injection, Daily, # 12 mL, 2 Refills, Maintenance, 03/01/21 12:42:00 EST, Solution, [facility]/pharmacy #[id number], increased dose 12/26/19, 155, cm, 02/18/21 14:54:00 EST, Height, 90.9, kg, 02/02/21 5:59:00 EDT, Dry Weight Start Date: 03/01/21 Status: Ordered lidocaine 5% topical film 1 patch, Topically, Daily, For chronic radicular back pain, # 30 patch, 5 Refills, Maintenance, 10/11/20 8:15:00 EDT, [facility]/pharmacy #[id number], 1 patch Topically Daily,Instr:For chronic radicular back pain, 163, cm, 08/15/20 14:23:00 EDT, Height, 84.8, kg,... Start Date: 10/11/20 Status: Ordered lisinopril 20 mg oral tablet 20 mg, 1, tablet, By Mouth, Daily, # 90 tablet, Refills 3, Tot. Refills 3, Maintenance, 04/12/21 13:24:00 EST, Route to Pharmacy Electronically, [facility]/pharmacy #[id number], 162.5, cm, 03/22/21 14:58:00 EST, Height, [...] Refills, Maintenance, 08/15/20 15:59:00 EDT, Capsule, [facility]/pharmacy #[id number], Partial fill upon patient request if the prescription is for a schedule II opioid drug., 163, cm, 08/15/20 14:23:00 EDT, Heig... Start Date: 08/15/20 Status: Ordered mirabegron 25 mg oral tablet, extended release 1 tablet = 25 mg, By Mouth, Daily, do not crush or chew, # 30 tablet, 11 Refills, Maintenance, 12/31/20 15:58:00 EDT, ER Tablet, [facility]/pharmacy #[id number], Partial fill upon patient request if [...] 1 Refills, Maintenance, 01/31/21 14:16:00 EDT, Tablet, [facility], Partial fill upon patient request if the prescription is for a schedule II opioid dr.Nishant. Start Date: 01/31/21 Status: Ordered omeprazole 40 mg oral enteric coated capsule 1 capsule = 40 mg, By Mouth, Daily, PRN Dyspepsia, # 90 capsule, 0 Refills, Maintenance, 01/11/21 13:46:00 EDT, EC Capsule, [facility]/pharmacy #[id number], 165, cm, 12/31/20 14:56:00 EDT, Height, 87.6, kg, 12/31/20 14:56:00 EDT, Dry Weight Start Date: 01/11/21 Status: Ordered oxyCODONE 15 mg oral tablet 1 tablet = 15 mg, By Mouth, 2 times a day, for 28 days, # 56 tablet, 0 Refills, Acute 04/19/21 11:49:00 EST, 03/22/21 11:49:00 EST, [facility]/pharmacy #[id number], Client on contract at [facility], failed Morphine, switching to oxycodone 15mg BID [...] 11:37:00 EDT, Route to Pharmacy Electronically, [facility]/pharmacy #[id number], 163, cm, 08/15/20 14:23:00 EDT, Height, 84.8, kg, 06/25/20 20:28:00 EDT... Start Date: 10/30/20 Status: Ordered Spiriva Respimat 60 ACT 2.5 mcg/inh inhalation aerosol 2 puffs, Inhalation, Daily, # 1 each, 11 Refills, Maintenance, 04/05/20 14:17:00 EST, [facility]/pharmacy #[id number], Partial fill upon patient request if [...] 12:45:00 EDT, Route to Pharmacy Electronically, [facility]/pharmacy #[id number], 165, cm, 11/22/20 8:40:00 EDT, Height, 84.8, kg, 06/25/20 20:28:00... 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
--- OUTSIDE RECORDS SUMMARY | 2023-03-25 08:30 | XMS_ITS | Continuity of Care Document ---
Author Name Unknown Organization [facility] Address [address] [place] [address]- Care Team Providers Care Contaminated Land Consultant Name Role Phone Richardson ALUMINA REFINERY OPERATOR, Leonora Pérez Primary Care Physician [phone] Encounter [facility] Date(s): 12/27/20 - 01/26/21 [facility] [address] [place] [address]- Allergies, Adverse Reactions, Alerts Substance Reaction Severity [...] Route to Pharmacy Electronically, [facility]/pharmacy #[id number], Partial fill upon patient request if the prescription is for a schedule II o... Start Date: 01/16/21 Status: Ordered Advair Diskus 500 mcg-50 mcg inhalation powder 1, puffs, Inhalation, 2 times a day, j45.909, # 1 each, Refills 11, Tot. Refills 11, Maintenance, 04/05/20 14:12:00 EST, Powder, Route to Pharmacy Electronically, [id number], [facility]/pharmacy #[id number], 162.56, cm, 03/27/20 [...] Maintenance, 08/16/20 11:58:00 EDT, Tablet, [facility]/pharmacy #[id number], Partial fill [...] Refills, Soft Stop, 11/23/20 14:43:00 EDT, Tablet, [facility]/pharmacy #[id number], Partial fill upon patient request if the prescription is for a schedule II opioid... Start Date: 11/23/20 Status: Ordered fluticasone 50 mcg/inh nasal spray See Instructions, USE 1 SPRAY IN BOTH NOSTRILS 2 TIMES A DAY, # 16 mL, 1 Refills, Maintenance, [id number], 30, USE 1 SPRAY IN BOTH NOSTRILS [...] Refills, Maintenance, 10/11/20 8:15:00 EDT, [facility]/pharmacy #[id number], 1 patch Topically Daily,Instr:For chronic radicular back pain, 163, cm, 08/15/20 14:23:00 EDT, Height, 84.8, kg,... Start Date: 10/11/20 Status: Ordered lisinopril 20 mg oral tablet 20 mg, 1, tablet, By Mouth, Daily, # 30 tablet, Refills 11, Tot. Refills 11, Maintenance, 05/07/20 13:30:00 EST, Route to Pharmacy Electronically, [facility]/pharmacy #[id number], 162, cm, 04/21/20 11:33:00 EST, [...] Maintenance, 04/05/20 14:08:00 EST, Tablet, [facility]/pharmacy #[id number], Partial [...] 01/01/21 15:40:00 EDT, [facility], [facility] EST, Route to Pharmacy Electronically, [facility]/pharmacy [...]
--- OUTSIDE RECORDS SUMMARY | 2023-03-25 08:30 | XMS_ITS | Continuity of Care Document ---
Author Name Unknown Organization [facility] Address [address] [place] [address]- Care Team Providers Care Filter Tender Name Role Phone Richardson QUIROZ, Leonora Pérez Primary Care Physician [facility]counter [facility] Date(s): 03/06/20 - 04/05/20 [facility] [address], [place] [address] Allergies, Adverse Reactions, Alerts [...] 14:12:00 EST, Powder, Route to Pharmacy Electronically, [id number], [id number], 162.56, cm, 03/27/20 11:36:00... Start [...] 1 Refills, Maintenance, 02/03/20 13:47:00 EDT, Cream, [facility]/pharmacy #[id number], 1 application Topically 2 times a [...] Maintenance, 12/30/19 18:21:00 EDT, Tablet, [facility]/pharmacy #[id number], 163, cm, 12/26/19 13:58:00 EDT, Height, [...] patch, 5 Refills, Maintenance, 03/09/20 8:53:00 EST, [facility]/pharmacy #[id number], 1 patch Topically Daily,Instr:For chronic radicular [...] Maintenance, 11/01/19 15:24:00 EDT, Tablet, [facility]/pharmacy #[id number], 163, cm, 11/01/19 14:40:00 EDT, Height, [...] Maintenance, 04/05/20 14:08:00 EST, Tablet, [facility]/pharmacy #[id number], Partial fill upon patient request if the prescription is for a schedule II opioid drug., 162.56, cm, ... Start Date: 04/05/20 Status: Ordered omeprazole 20 mg oral enteric coated capsule 1 capsule = 20 mg, By Mouth, Daily, Use as little as possible to control symptoms., # 30 capsule, 2Refills, Maintenance, 10/06/19 7:45:00 EDT, EC Capsule, [facility]/pharmacy #[id number], cancel Ranitidine, 160,cm, 09/28/19 8:58:00 EDT, [...] Acute 05/03/20 14:10:00 EST, 04/05/20 14:10:00 EST, [facility]/pharmacy #[id number], Partial fill upon patient request if the prescription is for a schedule II opioid drug. Client on c... Start Date: 04/05/20 Stop Date: 05/03/20 Status: Ordered Senna 8.6 mg oral tablet 8.6 mg, 1, tablet, By Mouth, Daily at bedtime, # 100 tablet, Refills 2, Tot. Refills 2, Maintenance, 06/10/19 16:12:00 EST, Route to Pharmacy Electronically, [facility]/pharmacy #[id number], 160, cm, 06/01/19 14:08:00 EST, Height, 88.9, kg, 05/23/19 22:09:00 EST,... Start Date: 06/10/19 Status: Ordered Spiriva Respimat 60 ACT 2.5 mcg/inh inhalation aerosol 2 puffs, Inhalation, Daily, # 1 each, 11 Refills, Maintenance, 04/05/20 14:17:00 EST, [facility]/pharmacy #[id number], Partial fill upon [...] 02/03/20 13:47:00 EDT, Route to Pharmacy Electronically, [facility]/pharmacy #[id number], 163, cm, 12/26/19 13:58:00 EDT, Height, [...] [facility], pending MRI 3urge and stress Social History Social History Type Response Tobacco Use: Pt states she q uit smoking 1 week ago. Sex Female
--- OUTSIDE RECORDS SUMMARY | 2023-03-25 08:30 | XMS_ITS | Continuity of Care Document ---
Author Name Unknown Organization [facility] Address [address] [place] [address]- Care Team Providers Care Security Director Name Role Phone Gerry GERARDO, Rashmi Primary Care Physician [facility]22 - 01/10/23 [facility] [address], [place] [address] Allergies, Adverse Reactions, Alerts Substance Reaction Severity Status morphine Active gabapentin swelling Active Lyrica dysphagia Active SEROquel body swelling - all over Act tony MetFORMIN Hydrochloride ER black tarry stool Active Immunizations Given and Recorded Vaccine Date Status Refusal Reason [id number] 12y+ bivalent booster vax 01/30/22 Given influenza virus vaccine, inactivated 01/30/22 Give n influenza virus vaccine, inactivated 02/04/21 Give n influenza virus vaccine, inactivated 1 04/19/20 Gi tonio influenza virus vaccine, inactivated 03/12/19 Give n influenza virus vaccine, inactivated 01/19/18 Give n influenza virus vaccine, inactivated 02/16/17 Give n pneumococcal 20-valent conjugate vaccine 12/26/21 Given SARS-CoV-2 mRNA ([id number]) vax 05/14/21 Given SARS-CoV-2 (COVID-19) mRNA BNT-162b2 [...] 09/25/22 17:00:00 EDT, Route to Pharmacy Electronically, [facility], Partial fill upon patient request if the prescription is for a sched... Start Date: 09/25/22 Status: Ordered Advair Diskus 500 mcg-50 mcg inhalation powder 1, inhalation, Inhalation, 2 times a day, rinse mouth and throat after use, # 60 each, Refills 11, Tot. Refills 11, Maintenance, 09/25/22 17:00:00 EDT, Inhaler, Route to Pharmacy Electronically, [id number], [facility]... Start Date: 09/25/22 Status: Ordered albuterol 0.083% inhalation solution 3 mL = 2.5 mg, Neb, Every 4 hours, PRN Wheezing/Shortness of Breath, # 100 each, 11 Refills, Maintenance, 12/26/22 8:14:00 EDT, Inhalation Solution, [facility], Partial fill upon patient request if the prescription is for a schedule II... Start Date: 12/26/22 Status: Ordered All Day Allergy 10 mg oral tablet 1 tablet, By Mouth, Daily, # 90 tablet, 3 Refills, Maintenance, 11/20/22 16:48:00 EDT, [facility], 163, cm, 11/20/22 16:00:00 EDT, Height, 83, kg, 02/11/22 19:19:00 EST, Dry Weight Start Date: 11/20/22 Status: Ordered amLODIPine 5 mg oral tablet 5 mg, 1, tablet, By Mouth, Daily, # 90 tablet, Refills 3, Tot. Refills 3, Maintenance, 04/29/22 11:56:00 EST, Route to Pharmacy Electronically, [facility], Partial fill upon patient request if the prescription is for a schedule II opio... Start Date: 04/29/22 Status: Ordered atorvastatin 40 mg oral tablet 1 tablet = 40 mg, By Mouth, Daily, # 90 tablet, 3 Refills, Maintenance, 09/25/22 16:58:00 EDT, Tablet, [facility] Partial fill upon patient [...] tablet, 0 Refills, Maintenance, 07/25/22 17:58:00 EDT, [facility] Partial fill upon patient [...] Gm, 2 Refills, Maintenance, 12/26/22 8:13:00 EDT, [facility] 15, APPLY TOPICALLY TO AFFECTED AREA TWO TIMES A DAY FOR TWO WEEKS, 163, cm, ... Start Date: 12/26/22 Status: Ordered docusate-senna 50 mg-187 mg oral tablet 2 tablet, By Mouth, 2 times a day, PRN Constipation, # 100 tablet, 11 Refills, Maintenance, 08/14/22 16:57:00 EDT, Tablet, [facility] Partial fill upon patient request if the prescription is for a schedule II opioid drug., 2 tablet By... Start Date: 08/14/22 Status: Ordered duloxetine 60 mg oral enteric coated capsule 2 capsule = 120 mg, By Mouth, Daily, # 60 capsule, 11 Refills, Maintenance, 11/20/22 16:48:00 EDT, Capsule, [facility]., Partial fill upon patient request. NOT INCREASED DOSE. Please cancel all other Duloxetine scripts, 163, cm, ... Start Date: 11/20/22 Status: Ordered empagliflozin 10 mg oral tablet 1 tablet = 10 mg, By Mouth, Daily in AM, # 90 tablet, 3 Refills, Maintenance, 09/25/22 17:01:00 EDT, Tablet, [facility]., Partial fill upon patient request [...] 10/22/22 15:19:00 EDT, Route to Pharmacy Electronically, [facility]., 163, cm, 09/25/22 16:20:00 EDT, Height, 83, kg, 11/0... Start Date: 10/22/22 Status: Ordered Januvia 100 mg oral tablet 1 tablet, By Mouth, Daily, # 30 tablet, 11 Refills, Maintenance, 11/26/22 10:02:00 EDT, [facility], 163, cm, 11/20/22 16:00:00 EDT, Height, 83, kg, 02/11/22 19:19:00 EST, Dry Weight Start Date: 11/26/22 Status: Ordered lidocaine 5% topical film 1 patch, Topically, Daily, PRN Pain , Mild, remove after 12 hours, # 13 each, 5 Refills, Maintenance, 09/25/22 16:59:00 EDT, Film, [facility]., Partial fill upon patient request if theprescription is for a schedule II opioid drug., 1 p... Start Date: 09/25/22 Status: Ordered lisinopril 20 mg oral tablet 20 mg, 1, tablet, By Mouth, Daily, # 90 tablet, Refills 3, Tot. Refills 3, Maintenance, 11/20/22 16:48:00 EDT, Route to Pharmacy Electronically, [facility]., 163, cm, 11/20/22 16:00:00EDT, Height, 83, kg, 02/11/22 19:19:00 EST, Dry Weight Start Date: 11/20/22 Status: Ordered mirtazapine 30 mg oral tablet 1 tablet = 30 mg, By Mouth, Daily at bedtime, # 90 tablet, 1 Refills, Maintenance, 09/25/22 17:00:00 EDT, Tablet, [facility]., Partial fill upon patient request if the prescription is for a schedule II opioid drug., 163, cm, 09/25/22 16... Start Date: 09/25/22 Status: Ordered omeprazole 40 mg oral enteric coated capsule 1 capsule, By Mouth, Daily, PRN NEEDED, # 90 capsule, 1 Refills, Maintenance, 11/25/22 10:53:00 EDT, [facility], 163, cm, 11/20/22 16:00:00 EDT, Height, 83, kg, 02/11/22 19:19:00 EST, Dry Weight Start Date: 11/25/22 Status: Ordered oxyCODONE 15 mg oral tablet 1 tablet = 15 mg, By Mouth, 3 times a day, on contract at [facility], # 84 tablet, 0 Refills, Maintenance, 12/23/22 7:56:00 EDT, [facility]., Partial fill upon patient request [...] 11/21/22 15:54:00 EDT, [facility], [facility], 163, cm, 11/20/22 16:00:00 EDT, Height, 83, kg, 02/11/22 19:19:00 E... Start Date: 11/21/22 Status: Ordered traZODone 50 mg oral tablet 1/2 TO 1 TABLET, By Mouth, Daily at bedtime, # 30 tablet, Refills 5, Maintenance, 08/29/22 11:31:00EDT, Route to Pharmacy Electronically, [facility], 163, cm, 08/14/22 16:50:00 EDT, Height, 83, kg, 02/11/22 19:19:00 EST, Dry Weight Start Date: 08/29/22 Status: Ordered triamcinolone 55 mcg/inh nasal spray 1 sprays = 55 mcg, Nares, Both, Daily, # 1 each, 5 Refills, Maintenance, 08/14/22 16:59:00 EDT, [facility], Partial fill upon patient request if the prescription is for a schedule II opioid drug., 1 sprays Nares, Both Daily, 163, cm, 0... Start Date: 08/14/22 Status: Ordered Trulicity Pen 1.5 mg/0.5 mL subcutaneous solution = 1.5 mg, Subcutaneous Infusion, Every week, # 4 each, 11 Refills, Maintenance, 11/20/22 16:49:00 EDT, [facility], Partial fill upon patient request [...] Active Panic attacks Confirmed Active N/CP Senior C Software Engineer Charlene Fabian [phone] Confirmed Active Syncope and collapse Confirmed Active [...] Team Personnel Name: Sindy Bernal RN Position: [facility] RN Member Role: Primary Care Nurse Name: Graciela Thrasher RN Position: [facility] SN RN Member Role: Primary Care Nurse Name: Stevie Angel RN Position: [facility] RN Member Role: Primary Care Nurse Name: Rashmi Garrett MD Position: [facility] Physician - Primary Care Member Role: PCP Address: Address: [address] [place] [id number] Name: Keily Ortega RN Position: [facility] RN Member Role: Primary Care Nurse Name: Graciela Munroe RN Position: [facility] RN Member Role: Primary Care Nurse Name: Nichole Pichardo RN Position: [facility] RN Member Role: Primary Care Nurse Name: Melvin Whitfield RN Position: [facility] AMB Nurse Member Role: Primary Care Nurse Name: Phuong Berkowitz RN Position: [facility] RN Member Role: Primary Care Nurse Name: Joselyn Rain RN Position: [facility] Stone Driller Helper Member Role: Primary Care Nurse Care Team Related Persons Name: IRA ROMERO Address: home [address] [place] [address] Name: JHON LARSON Address: home [address] [place] [address] Name: JHON LARSON Address: [address] [place] [address] Name: GALO CATALAN Name: NANCY CATALAN Address: home [address] [place] [address]
--- OUTSIDE RECORDS SUMMARY | 2023-03-25 08:30 | XMS_ITS | Continuity of Care Document ---
Author Name Unknown Organization [facility] Address [address] [place] [address]- Care Team Providers Care Engineering Assistant Name Role Phone Richardson WIRE COATING OPERATOR METAL, Leonora Pérez Primary Care Physician [facility]21 - 02/14/21 [facility] [address] [place] [address]- Allergies, Adverse Reactions, Alerts Substance Reaction Severity [...] 01/16/21 19:30:00 EDT, Route to Pharmacy Electronically, [facility]/pharmacy #[id number], Partial fill upon patient request if the prescription is for a schedule II o... Start Date: 01/16/21 Status: Ordered Advair Diskus 500 mcg-50 mcg inhalation powder 1, puffs, Inhalation, 2 times a day, [id number], # 1 each, Refills 11, Tot. Refills 11, Maintenance, 04/05/20 14:12:00 EST, Powder, Route to Pharmacy Electronically, [id number], [facility]/pharmacy #[id number], 162.56, cm, 03/27/20 11:36:00... Start Date: 04/05/20 Status: Ordered albuterol 0.083% inhalation solution 3 mL = 2.5 mg, Inhalation, Every 4 hours, PRN for wheezing, # 100 each, 2 Refills, Maintenance, 08/15/20 10:22:00 EDT, Solution, [facility]/pharmacy #[id number], 163, cm, 08/09/20 8:45:00 EDT, Height, 84.8, kg, 06/25/20 20:28:00 EDT, Dry Weight Start Date: 08/15/20 Status: Ordered amitriptyline 50 mg oral tablet 1 tablet, By Mouth, Daily at bedtime, # 90 tablet, 1 Refills, [id number], 155, cm, 02/04/21 11:46:00 EDT, Height, 90.9, kg, 02/02/21 5:59:00 EDT, Dry Weight Start Date: 02/07/21 Status: Ordered atorvastatin 20 mg oral tablet 1 tablet = 20 mg, By Mouth, Daily, # 90 tablet, 3 Refills, Maintenance, 04/05/20 14:11:00 EST, Tablet, [facility]/pharmacy #[id number], Partial fill upon patient request if the prescription is for a schedule II opioid drug., 162.56, cm, 03/27/20 11:36:00 EST, [place]... Start Date: 04/05/20 Status: Ordered capsaicin 0.025% topical cream 1 application, Topically, 3 times a day, # 45 Gm, 3 Refills, Maintenance, 11/01/19 15:25:00 EDT, Cream, [facility]/pharmacy #[id number], 1 application Topically 3 [...] DAY, # 16 mL, 1 Refills, Maintenance, [id number], 30, USE 1 SPRAY IN BOTH NOSTRILS [...] 2 Refills, Maintenance, 10/29/20 14:07:00 EDT, Tablet, [facility]/pharmacy #[id number], 163, cm, 08/15/20 14:23:00 EDT, Height, 84.8, kg, 06/25/20 20:28:00 EDT, Dry Weight Start Date: 10/29/20 Status: Ordered Lantus 100 u/ml subcutaneous solution = 40 units, Subcutaneous Injection, Daily, # 12 mL, 11 Refills, Maintenance, 05/07/20 13:24:00 EST,Solution, [facility]/pharmacy #[id number], increased dose 12/26/19, 162, cm, 04/21/20 11:33:00 EST, Height, 80, kg, 04/18/20 9:48:00 EST, Dry Weight Start Date: 05/07/20 Status: Ordered lidocaine 5% topical film 1 patch, Topically, Daily, For chronic radicular back pain, # 30 patch, 5 Refills, Maintenance, 10/11/20 8:15:00 EDT, [facility]/pharmacy #[id number], 1 patch Topically Daily,Instr:For [...] 0 Refills, Maintenance, 08/15/20 15:59:00 EDT, Capsule, [facility]/pharmacy #[id number], Partial fill upon patient request if the prescription is for a schedule II opioid drug., 163, cm, 08/15/20 14:23:00 EDT, Heig... Start Date: 08/15/20 Status: Ordered mirabegron 25 mg oral tablet, extended release 1 tablet = 25 mg, By Mouth, Daily, do not crush or chew, # 30 tablet, 11 Refills, Maintenance, 12/31/20 15:58:00 EDT, ER Tablet, [facility]/pharmacy #[id number], Partial fill upon patient [...] Acute 02/28/21 14:14:00 EST, 01/31/21 14:14:00 EDT, [facility]., CANCEL OXYCODONE- DO NOT FILL. PRESCRIBING MORPHINE INSTEAD. ON CONTRACT AT [facility], 165, cm,... Start Date: 01/31/21 Stop Date: 02/28/21 Status: Ordered nabumetone 750 mg oral tablet 1 tablet = 750 mg, By Mouth, 2 times a day, Do not take with Naproxen, # 60 tablet, 1 Refills, Maintenance, 01/31/21 14:16:00 EDT, Tablet, [facility]., Partial fill upon patient request if the prescription is for a schedule II opioid drNishant.. Start Date: 01/31/21 Status: Ordered omeprazole 40 mg oral enteric coated capsule 1 capsule = 40 mg, By Mouth, Daily, PRN Dyspepsia, # 90 capsule, 0 Refills, Maintenance, 01/11/21 13:46:00 EDT, EC Capsule, [facility]/pharmacy #[id number], 165, cm, 12/31/20 14:56:00 EDT, Height, 87.6, kg, 12/31/20 14:56:00 EDT, Dry Weight Start Date: 01/11/21 Status: Ordered Senna 8.6 mg oral tablet 8.6 mg, 1, tablet, By Mouth, Daily at bedtime, # 100 tablet, Refills 11, Tot. Refills 11, Maintenance, 10/30/20 11:37:00 EDT, Route to Pharmacy Electronically, [facility]/pharmacy #[id number], 163, cm, 08/15/20 14:23:00 EDT, Height, 84.8, kg, 06/25/20 20:28:00 EDT... Start Date: 10/30/20 Status: Ordered Spiriva Respimat 60 ACT 2.5 mcg/inh inhalation aerosol 2 puffs, Inhalation, Daily, # 1 each, 11 Refills, Maintenance, 04/05/20 14:17:00 EST, [facility]/pharmacy #[id number], Partial fill upon patient [...] 12/05/20 12:45:00 EDT, Route to Pharmacy Electronically, [facility]/pharmacy #[id number], 165, cm, 11/22/20 8:40:00 EDT, Height, 84.8, kg, 06/25/20 20:28:00... Start Date: 12/05/20 Stop Date: 01/30/21 Status: Ordered Trulicity Pen 0.75 mg/0.5 mL subcutaneous solution 0.5 mL = 0.75 mg, Subcutaneous Injection, Every week, rotate injection sites, # 2 mL, 5 Refills, Maintenance, 10/31/20 15:27:00 EDT, Solution, [facility]/pharmacy #[id number], Partial fill upon patient [...]
--- OUTSIDE RECORDS SUMMARY | 2023-03-25 08:30 | XMS_ITS | Continuity of Care Document ---
Author Name Unknown Organization [facility] ter Address [address] [place] [id number]- Care Team Providers Care Warehouse Operations Associate Name Role Phone Richardson QUIROZ, Leonora Pérez Primary Care Physician [facility]19 - 07/09/[address] [address]- [facility] Attending Physician: Richardson QUIROZ, Leonora Pérez [...] 12:48:00 EST, Powder, Route to Pharmacy Electronically, [id number], [facility]/pharmacy #[id number], 158, cm, 04/26/19 9:58:00 EST, [...] 5 Refills, Maintenance, 04/19/19 15:40:00 EST, Tablet, [facility]/pharmacy #[id number], 158, cm, 04/04/19 15:21:00 EST, Height, 82, kg, 04/01/19 16:10:00 EST, Dry Weight Start Date: 04/19/19 Status: Ordered clonazePAM 0.5 mg oral tablet TAKE 1 TABLET BY MOUTH TWICE A DAY NEEDED Start Date: 06/02/19 Status: Ordered clotrimazole 1% topical cream 1 application, Topically, 2 times a day, # 30 Gm, 0 Refills, Maintenance, 05/30/19 19:02:00 EST, Cream, [facility]/pharmacy #[id number], [...] 5 Refills, Maintenance, 04/28/19 16:05:00 EST, Tablet, [facility]/pharmacy #[id number], 158, cm, 04/28/19 14:51:00 EST, Height, 82, kg, 04/01/19 16:10:00 EST, Dry Weight Start Date: 04/28/19 Status: Ordered lidocaine 5% topical film 1 patch, Topically, Daily, For chronic radicular back pain, # 30 patch, 5 Refills, Maintenance, 06/27/19 14:37:00 EDT, [facility]/pharmacy #[id number], 1 patch Topically Daily,Instr:For chronic radicular back pain, 160, cm, 06/01/19 14:08:00 EST, Height, 88.9, kg,... Start Date: 06/27/19 Status: Ordered lisinopril 10 mg oral tablet 10 mg, 1, tablet, By Mouth, Daily, # 90 tablet, Refills 3, Tot. Refills 3, Maintenance, 05/08/19 20:27:00 EST, Route to Pharmacy Electronically, [facility]/pharmacy #[id number], to replace 2.5mg dose, 158, [...] slovenian, # 120 tablet, 2 Refills, Maintenance, 05/04/19 9:35:00 EST, Tablet, [facility]/pharmacy #[id number], 158, cm, 04/28/19 14:51:00 EST, Height, 82, kg, 03/07... Start Date: 05/04/19 Status: Ordered metFORMIN 750 mg oral tablet, extended release 1 tablet = 750 mg, By Mouth, 2 times a day, # 60 tablet, 6 Refills, Maintenance, 05/30/19 18:54:00 EST, ER Tablet, [facility]/pharmacy #[id number], dose increased to BID 05/30/19, [...] pain, for 28 days, on contract at [facility]., # 56 tablet, 0 Refills, Acute 08/04/19 13:49:00 EDT, 07/07/19 13:49:00 EDT, [facility]/pharmacy #[id number], Partial fill upon patient request, 160, cm, 06/01/19 14:08:00 EST,... Start Date: 07/07/19 Stop Date: 08/04/19 Status: Ordered prazosin 1 mg oral capsule 1 mg, 1, capsule, By Mouth, Daily at bedtime, for nightmares, # 30 capsule, Refills 0, Tot. Refills0, Maintenance, 05/30/19 18:52:00 EST, Route to Pharmacy Electronically, [facility]/pharmacy #[id number], 160, cm, 05/30/19 18:08:00 EST, Height, 88.9, kg, 05/23/19... Start Date: 05/30/19 Status: Ordered raNITIdine 300 mg oral tablet See Instructions, # 30 tablet, Refills 2 Tot. Refills 2, TAKE 1 TABLET BY MOUTH EVERYDAY AT BEDTIME, [facility]/pharmacy #[id number] Start Date: 01/27/19 Status: Ordered Senexon-S 2 tablet, By Mouth, Daily at bedtime, 0 Refills, Maintenance, 11/25/18 10:10:49 EDT Start Date: 11/25/18 Status: Ordered senna 187 mg oral tablet 1 tablet = 8.6 mg, By Mouth, Daily at bedtime, PRN as needed for constipation, # 100 tablet, 5 Refills, Maintenance, 05/04/19 9:35:00 EST, [facility]/pharmacy #[id number], 158, cm, 04/28/19 14:51:00 EST, Height, 82, kg, 04/01/19 16:10:00 EST, Dry Weight Start Date: 05/04/19 Status: Ordered Senna 8.6 mg oral tablet 8.6 mg, 1, tablet, By Mouth, Daily at bedtime, # 100 tablet, Refills 2, Tot. Refills 2, Maintenance, 06/10/19 16:12:00 EST, Route to Pharmacy Electronically, [facility]/pharmacy #[id number], 160, cm, 06/01/19 14:08:00 EST, Height, 88.9, kg, 05/23/19 22:09:00 EST,... Start Date: 06/10/19 Status: Ordered Spiriva Respimat 60 ACT 2.5 mcg/inh inhalation aerosol 2 puffs, Inhalation, Daily, # 1 each, 5 Refills, Maintenance, 04/26/19 10:30:00 EST, [facility]/pharmacy #[id number], 158, cm, 04/26/19 9:58:00 EST, Height, 82, kg, 04/01/19 16:10:00 EST, Dry Weight Start Date: 04/26/19 Status: Ordered tiZANidine 2 mg oral tablet 2 mg, 1, tablet, By Mouth, 2 times a day, PRN, # 30 tablet, Refills 2, Tot. Refills 2, Maintenance,as needed for muscle spasm, 06/13/19 18:17:00 EDT, Route to Pharmacy Electronically, [facility]/pharmacy #[id number], 160, cm, [...] on CPAP(Confirmed) Active Panic attacks(Confirmed) Active *BHN/BHCP/Efrem Macdonald-[phone]/Health snf, active care coordination(Confirmed) Active Acute meniscal tear of right knee(Confirmed) 6 06/2015 Active Tobacco dependence(Confirmed) Active DM2 (diabetes mellitus, type 2)(Confirmed) 04/03/17 Active Incontinence of urine(Confirmed) 7 Active 1surgically repaired November 2015, Dr. Sg MENDEZ 2DJD Lumbar Spine per MRI 3L3-L4 disc herniation per client report 4seen on MRI 10/2016, rec repeat imaging in October [address] Abd 09/18/16 at [facility], pending MRI 6surgically repaired July 2015 Dr. Sg MENDEZ 7urge and stress Social History Social History Type Response Tobacco Use: Pt states she q uit smoking 1 week ago. Sex Female
--- OUTSIDE RECORDS SUMMARY | 2023-03-25 08:30 | XMS_ITS | Continuity of Care Document ---
Author Name Unknown Organization [facility] Address [address] [place] [address]- Care Team Providers Care Neonatal Doctor Name Role Phone Richardson QUIROZ, Leonora Pérez Primary Care Physician Encounter [facility] Date(s): 05/23/20 - 06/22/20 [facility] [address], [place] [address] Allergies, Adverse Reactions, Alerts [...] 14:12:00 EST, Powder, Route to Pharmacy Electronically, [id number], [facility]/pharmacy #[id number], 162.56, cm, 03/27/20 11:36:00... Start Date: 04/05/20 Status: Ordered albuterol 0.083% inhalation solution 3 mL = 2.5 mg, Inhalation, Every 4 hours, PRN for wheezing, # 100 each, 5 Refills, Maintenance, 06/27/19 14:32:00 EDT, Solution, [facility]/pharmacy #[id number], 160, cm, 06/01/19 14:08:00 EST, Height, 88.9, kg, 05/23/19 22:09:00 EST, Dry Weight Start Date: 06/27/19 Status: Ordered amitriptyline 50 mg oral tablet 1 tablet = 50 mg, By Mouth, Daily at bedtime, # 30 tablet, 5 Refills, Maintenance, 12/30/19 18:21:00 EDT, Tablet, [facility]/pharmacy #[id number], 163, cm, 12/26/19 13:58:00 EDT, Height, 80, kg, 10/29/19 0:29:00 EDT, Dry Weight Start Date: 12/30/19 Status: Ordered atorvastatin 20 mg oral tablet 1 tablet = 20 mg, By Mouth, Daily, # 90 tablet, 3 Refills, Maintenance, 04/05/20 14:11:00 EST, Tablet, [facility]/pharmacy #[id number], Partial fill upon patient request if the prescription is for a schedule II opioid drug., 162.56, cm, 03/27/20 11:36:00 EST, Heig... Start Date: 04/05/20 Status: Ordered capsaicin 0.025% topical cream 1 application, Topically, 3 times a day, # 45 Gm, 3 Refills, Maintenance, 11/01/19 15:25:00 EDT, Cream, [facility]/pharmacy #[id number], 1 application Topically 3 times a day, 163, cm, 11/01/19 14:40:00 EDT, Height, 80, kg, 10/29/19 0:29:00 EDT, Dry Weight Start Date: 11/01/19 Status: Ordered cetirizine 10 mg oral tablet 1 tablet = 10 mg, By Mouth, Daily, # 30 tablet, 5 Refills, Maintenance, 06/20/20 13:18:00 EDT, Tablet, [facility]/pharmacy #[id number], 162, cm, 05/24/20 9:01:00 [...] Maintenance, 12/30/19 18:21:00 EDT, Tablet, [facility]/pharmacy #[id number], 163, cm, 12/26/19 13:58:00 [...] not to exceed 3000 mg/day. instructions in bahraini, # 120 tablet, 2 Refills, Maintenance, 11/01/19 15:24:00 EDT, Tablet, [id number], 163, cm, 11/01/19 14:40:00 EDT, Height, 80, kg, .. Start Date: 11/01/19 Status: Ordered mirtazapine 30 mg oral tablet 1 tablet = 30 mg, By Mouth, Daily at bedtime, Maintenance, 05/24/19 9:12:00 EST, Tablet Start Date: 05/24/19 Status: Ordered naproxen 500 mg oral tablet 1 tablet = 500 mg, By Mouth, 2 times a day, For back pain, # 60 tablet, 2 Refills, Maintenance, 04/05/20 14:08:00 EST, Tablet, [facility]/pharmacy #[id number], Partial fill upon patient request if the prescription is for a schedule II opioid drug., 162.56, cm, . Start Date: 04/05/20 Status: Ordered omeprazole 40 mg oral enteric coated capsule 1 capsule = 40 mg, By Mouth, Daily, # 30 capsule, 3 Refills, Maintenance, 05/24/20 9:40:00 EST, EC Capsule, [facility]/pharmacy #[id number], note dose increase, 162, cm, 05/24/20 [...] Acute 07/02/20 12:45:00 EDT, 06/04/20 12:45:00 EST, [facility]/pharmacy #[id number], Partial fill upon patient request if the prescription is for a schedule II opioid drug. Client on c... Start Date: 06/04/20 Stop Date: 07/02/20 Status: Ordered Senna 8.6 mg oral tablet 8.6 mg, 1, tablet, By Mouth, Daily at bedtime, # 100 tablet, Refills 2, Tot. Refills 2, Maintenance, 06/04/20 12:46:00 EST, Route to Pharmacy Electronically, [facility]/pharmacy #[id number], 162, cm, 05/24/20 9:01:00 EST, Height, 80, kg, 04/18/20 9:48:00 EST, Dry... Start Date: 06/04/20 Status: Ordered Soma 350 mg oral tablet 350 mg, 1, tablet, By Mouth, 3 times a day, # 9 tablet, Refills 0, Tot. Refills 0, Maintenance, 05/04/20 15:46:00 EST, [id number], Partial fill upon patient request if the prescription is for a schedule II opi... Start Date: 05/04/20 Status: Ordered Spiriva Respimat 60 ACT 2.5 mcg/inh inhalation aerosol 2 puffs, Inhalation, Daily, # 1 each, 11 Refills, Maintenance, 04/05/20 14:17:00 EST, [facility]/pharmacy #[id number], Partial fill upon patient [...] EST, Route to Pharmacy Electronically, [facility]/pharmacy #[id number], 162, cm, 04/21/20 11:33:00 [...]
--- OUTSIDE RECORDS SUMMARY | 2023-03-25 08:30 | XMS_ITS | Continuity of Care Document ---
Author Name Unknown Organization [facility] Address [address] [place] [id number]- Care Team Providers Care Journeyman Welder Name Role Phone Richardson QUIROZ, Leonora Pérez Primary Care Physician Encounter [facility] [id number] Date(s): 09/09/22 - 10/10/[address] [address]- Encounter Diagnosis Intervertebral disc disorders with radiculopathy, lumbar region(Final) - Discharge Disposition: A-D/C Home Attending Physician: Richardson QUIROZ, Leonora Pérez Admitting Physician: Richardson QUIROZ, Leonora Pérez Referring Physician: Jose Morgan Allergies, Adverse Reactions, Alerts Substance Reaction Severity Status morphine Active gabapentin swelling Active Lyrica dysphagia Active MetFORMIN Hydrochloride ER black tarry stool Active SEROquel body swelling - all over Act tony Immunizations Given and Recorded Vaccine Date Status Refusal Reason [id number] 12y+ bivalent booster vax 01/30/22 Given influenza virus vaccine, inactivated 01/30/22 Give n influenza virus vaccine, inactivated 02/04/21 Give n influenza virus vaccine, inactivated 1 04/19/20 Gi tonio influenza virus vaccine, inactivated 03/12/19 Give n influenza virus vaccine, inactivated 01/19/18 Give n influenza virus vaccine, inactivated 02/16/17 Give n pneumococcal 20-valent conjugate vaccine 12/26/21 Given SARS-CoV-2 mRNA (olcowsr-tgmb-oibgh) vax 05/14/21 Given SARS-CoV-2 (COVID-19) mRNA BNT-162b2 [...] 17:00:00 EDT, Route to Pharmacy Electronically, [facility], Partial fill upon patient request if the prescription is for a sched... Start Date: 09/25/22 Status: Ordered Advair Diskus 500 mcg-50 mcg inhalation powder 1, inhalation, Inhalation, 2 times a day, rinse mouth and throat after use, # 60 each, Refills 11, Tot. Refills 11, Maintenance, 09/25/22 17:00:00 EDT, Inhaler, Route to Pharmacy Electronically, [id number], [facility]... Start Date: 09/25/22 Status: Ordered [...] 1 Refills, Maintenance, 07/25/22 12:30:00 EDT, [facility], 163, cm, 07/11/22 14:19:00 EDT, Height, [...] Refills, Maintenance, 09/25/22 16:58:00 EDT, Tablet, [facility] Partial fill upon patient request if the prescription is for a schedule II opioid drug., 163, cm, 09/25/22 16:20:00 EDT,... Start Date: 09/25/22 Status: Ordered clonazePAM 0.5 mg oral tablet 1 tablet = 0.5 mg, By Mouth, 2 times a day, # 60 tablet, 0 Refills, Maintenance, 07/25/22 17:58:00 EDT, [facility]., Partial fill upon patient request if [...] Gm, 1 Refills, Maintenance, 09/03/22 14:02:00 EDT, [facility], 15, APPLY TOPICALLY TO AFFECTED AREA TWO TIMES A DAY,163, cm, 08/14/22 16:50:00 EDT, Height, 83, kg, 11/... Start Date: 09/03/22 Status: Ordered docusate-senna 50 mg-187 mg oral tablet 2 tablet, By Mouth, 2 times a day, PRN Constipation, # 100 tablet, 11 Refills, Maintenance, 08/14/22 16:57:00 EDT, Tablet, [facility]., Partial fill upon patient request if the prescription is for a schedule II opioid drug., 2 tablet By... Start Date: 08/14/22 Status: Ordered duloxetine 60 mg oral enteric coated capsule 2 capsule = 120 mg, By Mouth, Daily, # 60 capsule, 5 Refills, Maintenance, 05/26/22 17:03:00 EST, [facility]apsule[facility] fill upon patient request. NOT INCREASED DOSE. Please cancel all other Duloxetine scripts, 163, cm, 05/19/22... Start Date: 05/26/22 Status: Ordered empagliflozin 10 mg oral tablet 1 tablet = 10 mg, By Mouth, Daily in AM, # 90 tablet, 3 Refills, Maintenance, 09/25/22 17:01:00 EDT, Tablet, [facility] Partial fill upon patient request [...] tablet, Refills 1, Maintenance, NEEDED FOR PAIN, 10/02/22 21:59:00 EDT, [facility], 163, cm, 09/25/22 16:20:00 EDT, Height, 83, kg, 02/11/22 19:19:00 EST, Dry... Start Date: 10/02/22 Status: Ordered lidocaine 5% topical film 1 patch, Topically, Daily, PRN Pain , Mild, remove after 12 hours, # 13 each, 5 Refills, Maintenance, 09/25/22 16:59:00 EDT, Film, [facility] Partial fill upon patient request if theprescription is for a schedule II opioid drug., 1 p... Start Date: 09/25/22 Status: Ordered lisinopril 20 mg oral tablet 20 mg, 1, tablet, By Mouth, Daily, # 90 tablet, Refills 1, Tot. Refills 1, Maintenance, 07/25/22 12:31:00 EDT, Route to Pharmacy Electronically, [facility]., 163, cm, 07/11/22 14:19:00EDT, Height, 83, kg, 02/11/22 19:19:00 EST, Dry Weight Start Date: 07/25/22 Status: Ordered mirtazapine 30 mg oral tablet 1 tablet = 30 mg, By Mouth, Daily at bedtime, # 90 tablet, 1 Refills, Maintenance, 09/25/22 17:00:00 EDT, Tablet, [facility], Partial fill upon patient request if the prescription is for a schedule II opioid drug., 163, cm, 09/25/22 16... Start Date: 09/25/22 Status: Ordered omeprazole 40 mg oral enteric coated capsule 1 capsule, By Mouth, Daily, PRN NEEDED, # 30 capsule, 2 Refills, 08/26/22 13:27:00 EDT, [facility], 163, cm, 08/14/22 16:50:00 EDT, Height, 83, kg, 02/11/22 19:19:00 EST, Dry Weight Start Date: 08/26/22 Status: Ordered oxyCODONE 15 mg oral tablet 1 tablet = 15 mg, By Mouth, 3 times a day, on contract at [facility], # 84 tablet, 0 Refills, Maintenance, 09/25/22 17:02:00 EDT, [facility], Partial fill upon patient request if the prescription is for a schedule II opioid drug., 163, cm, 0... Start Date: 09/25/22 Stop Date: 10/23/22 Status: Ordered prazosin 2 mg oral capsule 0 Refills, Maintenance, 02/06/22 16:42:00 EDT, Partial fill upon patient request if the prescription is for a schedule II opioid drug. Start Date: 02/06/22 Status: Ordered tiZANidine 4 mg oral capsule 1 capsule = 4 mg, By Mouth, 3 times a day, PRN Pain , Severe, # 90 capsule, 1 Refills, Maintenance,09/25/22 16:54:00 EDT, [facility]., 163, cm, 09/25/22 16:20:00 EDT, Height, 83, kg, 02/11/22 19:19:00 EST, Dry Weight Start Date: 09/25/22 Status: Ordered traZODone 50 mg oral tablet 1/2 TO 1 TABLET, By Mouth, Daily at bedtime, # 30 tablet, Refills 5, Maintenance, 08/29/22 11:31:00EDT, Route to Pharmacy Electronically, [facility], 163, cm, 08/14/22 16:50:00 EDT, Height, 83, kg, 02/11/22 19:19:00 EST, Dry Weight Start Date: 08/29/22 Status: Ordered triamcinolone 55 mcg/inh nasal spray 1 sprays = 55 mcg, Nares, Both, Daily, # 1 each, 5 Refills, Maintenance, 08/14/22 16:59:00 EDT, [facility], Partial fill upon patient request if the prescription is for a schedule II opioid drug., 1 sprays Nares, Both Daily, 163, cm, 0... Start Date: 08/14/22 Status: Ordered Trulicity Pen 1.5 mg/0.5 mL subcutaneous solution = 1.5 mg, Subcutaneous Infusion, Every week, # 4 each, 5 Refills, Maintenance, 07/25/22 18:12:00 EDT, [facility], Partial fill upon patient request if [...] Confirmed Active Panic attacks Confirmed Active BHN/BHCP Hose Handler Charlene Fabian [phone] Confirmed Active Syncope and collapse Confirmed Active Tobacco dependence Confirmed Active DM2 (diabetes mellitus, type 2) Confirmed 04/03/17 Active Incontinence of urine 3 Confirmed Active 1seen on MRI 10/2016, rec repeat imaging in October [address] Abd 09/18/16 at [facility] pending [place] 3urge and stress Social History [...] Care Nurse Name: Leonora Bai NP Position: [facility] PCO Associate Professional Member Role: PCP Address: Address: [address] [place] [address] Name: Keily Ortega RN Position: [facility] RN Member Role: Primary Care Nurse Name: Nichole Pichardo RN Position: [facility] RN Member Role: Primary Care Nurse Name: Melvin Whitfield RN Position: [facility] Nurse Member Role: Primary Care Nurse Name: Phuong Berkowitz RN Position: [facility] RN Member Role: Primary Care Nurse Name: Joselyn Rain RN Position: [facility] Hospital Network Technical Analyst Member Role: Primary Care Nurse Care Team Related Persons Name: IRA ROMERO Address: home [address] [place] [address] Name: JHON LARSON Address: [address] [place] [address] Name: JHON LARSON Address: [address] [place] [address] Name: GALO CATALAN Name: NANCY CATALAN Address: home [address] [place] [address]
--- OUTSIDE RECORDS SUMMARY | 2023-03-25 08:30 | XMS_ITS | Continuity of Care Document ---
Author Name Unknown Organization [facility] Address [address] [place] [address]- Care Team Providers Care Marketing Engineer Name Role Phone Richardson QUIROZ, Leonora Pérez Primary Care Physician [phone] Encounter [facility] Date(s): 03/28/20 - 05/05/20 [facility] [address], [place] [address] Attending Physician: Not on Staff, [...] 14:12:00 EST, Powder, Route to Pharmacy Electronically, [id number], [facility]/pharmacy #[id number], 162.56, cm, 03/27/20 11:36:00... Start [...] 3 Refills, Maintenance, 04/05/20 14:11:00 EST, Tablet, [facility]/pharmacy #[id number], Partial fill upon patient request if the prescription is for a schedule II opioid drug., 162.56, cm, 03/27/20 11:36:00 EST, Heig... Start Date: 04/05/20 Status: Ordered capsaicin 0.025% topical cream 1 application, Topically, 3 times a day, # 45 Gm, 3 Refills, Maintenance, 11/01/19 15:25:00 EDT, Cream, [facility]/pharmacy #[id number], 1 application Topically 3 times [...] swedish, # 120 tablet, 2 Refills, Maintenance, 11/01/19 [...] 05/04/20 15:46:00 EST, Route to Pharmacy Electronically, [facility] [...] 05/03/20 11:26:00 EST, Route to Pharmacy Electronically, [facility]/pharmacy #[id number], 162, cm, 04/21/20 11:33:00 EST, [...]
--- OUTSIDE RECORDS SUMMARY | 2023-03-25 08:30 | XMS_ITS | Continuity of Care Document ---
Author Name Unknown Organization [facility] Address [address] [place] [address]- Care Team Providers Care School Business Administrator Name Role Phone Richardson QUIROZ, Leonora Pérez Primary Care Physician [phone] Encounter [facility] [id number] Date(s): 10/08/21 - 11/07/[address] [address]- Attending Physician: Clarence Reynaga Admitting Physician: Clarence Reynaga Referring Physician: AdmtrClarence Allergies, Adverse Reactions, Alerts Substance Reaction Severity Status morphine Active gabapentin swelling Active MetFORMIN Hydrochloride ER black tarry stool Active Lyrica dysphagia Active SEROquel body swelling - all over Act tony Immunizations Given and Recorded Vaccine Date Status Refusal Reason SARS-CoV-2 mRNA (lwemdye-hkrt-elndb) vax 05/14/21 Given influenza virus vaccine, inactivated [...] 10/22/21 9:23:00 EDT, Route to Pharmacy Electronically, [facility], Partial fill uponpatient request if the prescription is for a schedu... Start Date: 10/22/21 Status: Ordered Advair Diskus 500 mcg-50 mcg inhalation powder 1, puffs, Inhalation, 2 times a day, [id number], # 1 each, Refills 5, Tot. Refills 5, Maintenance, 05/15/21 9:20:00 EST, Powder, Route to Pharmacy Electronically, [id number], [facility], 162.5, cm, 05/10/21 14:47... Start Date: 05/15/21 Status: Ordered albuterol 0.083% inhalation solution 3 mL = 2.5 mg, Inhalation, Every 4 hours, PRN for wheezing, # 100 each, 2 Refills, Maintenance, 05/15/21 9:30:00 EST, Solution, [facility], 162.5, cm, 05/10/21 14:47:00 EST, Height, 90.9, kg, 02/02/21 5:59:00 EDT, Dry Weight Start Date: 05/15/21 Status: Ordered amitriptyline 25 mg oral tablet 25 mg, 1, tablet, By Mouth, Daily at bedtime, # 30 tablet, Refills 2, Tot. Refills 2, Maintenance, 08/30/21 12:06:00 EDT, Route to Pharmacy Electronically, [facility], Partial fill upon patient request if the prescription is for a sche... Start Date: 08/30/21 Status: Ordered cetirizine 10 mg oral tablet 1 tablet = 10 mg, By Mouth, Daily, # 30 tablet, 5 Refills, Maintenance, 08/28/21 9:07:00 EDT, Tablet, [facility], 162, cm, 08/22/21 9:46:00 EDT, [...] 1 Refills, Maintenance, 07/08/21 9:45:00 EDT, Cream, [facility]., PLEASE CANCEL ESTRADIOL VAGINAL CREAM, 1 [...] tablet, 0 Refills, Maintenance, 10/24/2219:09:00 EDT, Tablet, [facility] Partial fill upon patient request if the prescription is for a schedule II opioid drug., 2 tablet By... Start Date: 10/23/21 Status: Ordered duloxetine 60 mg oral enteric coated capsule 2 capsule = 120 mg, By Mouth, Daily, # 60 capsule, 5 Refills, Maintenance, 10/21/21 21:05:00 EDT, Capsule, [facility] Partial fill upon patient request. NOT INCREASED DOSE, 162, cm, 10/10/21 9:11:00 EDT, Height, 86, kg, 07/23/21 0:58:... Start Date: 10/21/21 Status: Ordered empagliflozin 10 mg oral tablet 1 tablet = 10 mg, By Mouth, Daily in AM, # 30 tablet, 5 Refills, Maintenance, 08/28/21 9:07:00 EDT,Tablet, [facility] Partial fill upon patient request if the prescription is for a schedule II opioid drug., 162, cm, 08/22/21 9:46:00... Start Date: 08/28/21 Status: Ordered fluticasone 50 mcg/inh nasal spray See Instructions, USE 1 SPRAY IN BOTH NOSTRILS 2 TIMES A DAY, # 16 mL, 1 Refills, 07/08/21 9:44:00 EDT, [facility] 30, USE 1 SPRAY IN [...] capsule, 2 Refills, Maintenance, 08/28/21 9:07:00 EDT, [facility] 162, cm, 08/22/21 9:46:00 EDT, Height, 86, kg, 07/23/21 0:58:00 EDT, Dry Weight Start Date: 08/28/21 Status: Ordered ibuprofen 800 mg oral tablet 800 mg, 1, tablet, By Mouth, 3 times a day, PRN, # 90 tablet, Refills 1, Tot. Refills 1, Maintenance, Pain , Mild, 10/31/21 13:59:00 EDT, Route to Pharmacy Electronically, [facility],please fill 800mg instead of 600mg, [...] 06/18/21 21:04:00 EDT, Tablet, [facility], 162.5, cm, 06/17/21 13:04:00 EDT, Height, 85.8, kg, 06/04/21 10:03:00 EST, Dry Weight Start Date: 06/18/21 Status: Ordered Lantus 100 u/ml subcutaneous solution = 50 units, Subcutaneous Injection, Daily, # 15 mL, 5 Refills, Maintenance, 07/08/21 9:38:00 EDT, Solution, [facility], ;, 162.5, cm, 07/08/21 8:49:00 EDT, Height, 85.8, kg, 06/04/21 10:03:00 EST, Dry Weight Start Date: 07/08/21 Status: Ordered lisinopril 20 mg oral tablet 20 mg, 1, tablet, By Mouth, Daily, # 90 tablet, Refills 3, Tot. Refills 3, Maintenance, 08/28/21 9:07:00 EDT, Route to Pharmacy Electronically, [facility], 162, cm, 08/22/21 9:46:00 EDT, [...] PRN NEEDED, # 30 capsule, 2 Refills, [facility], 162, cm, 09/06/21 13:04:00 EDT, [...] schedule II opioid drug. ON contract at [facility], 30mg E... Start Date: 10/29/21 Stop Date: 11/26/21 Status: Ordered Senna 8.6 mg oral tablet 8.6 mg, 1, tablet, By Mouth, Daily at bedtime, # 100 tablet, Refills 11, Tot. Refills 11, Maintenance, 07/08/21 9:39:00 EDT, Route to Pharmacy Electronically, [facility], 162.5, cm, 07/08/21 8:49:00 EDT, Height, 85.8, kg, 06/04/21 10:0... Start Date: 07/08/21 Status: Ordered Trulicity Pen 3 mg/0.5 mL subcutaneous solution 0.5 mL = 3 mg, Subcutaneous Injection, Every week, rotate injection sites, # 2 mL, 5 Refills, Maintenance, 09/03/21 15:49:00 EDT, Solution, [facility], Partial [...] on CPAP(Confirmed) Active Panic attacks(Confirmed) Active BHN/BHCP Cloth Neutralizer Jb Fabian [phone](Confirmed) Active Syncope and collapse(Confirmed) Active Tobacco dependence(Confirmed) [...]
--- OUTSIDE RECORDS SUMMARY | 2023-03-25 08:30 | XMS_ITS | Continuity of Care Document ---
Author Name Unknown Organization [facility] Address [address] [place] [address]- Care Team Providers Care Intranet Support Name Role Phone Richardson QUIROZ, Leonora Pérez Primary Care Physician Encounter [facility] Date(s): 03/07/20 - 04/06/20 [facility] [address], [place] [address] Allergies, Adverse Reactions, Alerts Substance [...] 14:12:00 EST, Powder, Route to Pharmacy Electronically, [id number], [id number], 162.56, cm, 03/27/20 11:36:00... Start [...] 1 Refills, Maintenance, 02/03/20 13:47:00 EDT, Cream, [facility]/pharmacy #[id number], 1 application Topically 2 [...] 5 Refills, Maintenance, 12/30/19 18:21:00 EDT, Tablet, [facility]/pharmacy #[id number], 163, cm, 12/26/19 13:58:00 [...] patch, 5 Refills, Maintenance, 03/09/20 8:53:00 EST, [facility]/pharmacy #[id number], 1 patch Topically [...] not to exceed 3000 mg/day. instructions in rwandan, # 120 tablet, 2 Refills, Maintenance, 11/01/19 [...] 2 Refills, Maintenance, 04/05/20 14:08:00 EST, Tablet, [facility]/pharmacy #[id number], Partial fill upon [...] Acute 05/03/20 14:10:00 EST, 04/05/20 14:10:00 EST, [facility]/pharmacy #[id number], Partial fill upon [...] each, 11 Refills, Maintenance, 04/05/20 14:17:00 EST, [facility]/pharmacy #[id number], Partial fill upon [...] 02/03/20 13:47:00 EDT, Route to Pharmacy Electronically, [facility]/pharmacy #[id number], 163, cm, 12/26/19 13:58:00 [...] [address] Abd 09/18/16 at [facility], pending MRI 3urge and stress Social History Social History Type Response Tobacco Use: Pt states she q uit smoking 1 week ago. Sex Female
--- OUTSIDE RECORDS SUMMARY | 2023-03-25 08:30 | XMS_ITS | Continuity of Care Document ---
Author Name Unknown Organization [facility] Address [address] [place] [address]- Care Team Providers Care Commercial Estimator Name Role Phone Richardson WHARF TALLY CLERK, Leonora Pérez Primary Care Physician Encounter [facility] Date(s): 07/02/22 - 08/01/22 [facility] [address] [place] [address]- Allergies, Adverse Reactions, Alerts Substance Reaction Severity Status morphine Active gabapentin swelling Active Lyrica dysphagia Active SEROquel body swelling - all over Act tony MetFORMIN Hydrochloride ER black tarry stool Active Immunizations Given and Recorded Vaccine Date Status Refusal Reason [id number] 12y+ bivalent booster vax 01/30/22 Given influenza virus vaccine, inactivated 01/30/22 Give n influenza virus vaccine, inactivated 02/04/21 Give n influenza virus vaccine, inactivated 1 04/19/20 Gi tonio influenza virus vaccine, inactivated 03/12/19 Give n influenza virus vaccine, inactivated 01/19/18 Give n influenza virus vaccine, inactivated 02/16/17 Give n pneumococcal 20-valent conjugate vaccine 12/26/21 Given SARS-CoV-2 mRNA ([id number]) vax 05/14/21 Given SARS-CoV-2 (COVID-19) mRNA BNT-162b2 [...] 10/22/21 9:23:00 EDT, Route to Pharmacy Electronically, [facility], Partial fill uponpatient request if the [...] tablet, 1 Refills, Maintenance, 07/25/22 12:30:00 EDT, [facility]., 163, cm, 07/11/22 14:19:00 EDT, Height, 83, kg, 02/11/22 19:19:00 EST, Dry Weight Start Date: 07/25/22 Status: Ordered amLODIPine 5 mg oral tablet 5 mg, 1, tablet, By Mouth, Daily, # 90 tablet, Refills 3, Tot. Refills 3, Maintenance, 04/29/22 11:56:00 EST, Route to Pharmacy Electronically, [facility], Partial fill upon patient request if [...] tablet, 0 Refills, Maintenance, 07/25/22 17:58:00 EDT[facility] fill upon patient request [...] 07/11/22 15:09:00 EDT, Route to Pharmacy Electronically, [facility], 163, cm, 07/11/22 14:19:00 EDT, Height, 83, kg, 11/0... Start Date: 07/11/22 Status: Ordered Januvia 100 mg oral tablet 1 tablet = 100 mg, By Mouth, Daily, # 90 tablet, 3 Refills, Maintenance, 06/18/21 21:04:00 EDT, Tablet, [facility], 162.5, cm, 06/17/21 13:04:00 EDT, Height, 85.8, kg, 06/04/21 10:03:00 EST, Dry Weight Start Date: 06/18/21 Status: Ordered Lantus 100 u/ml subcutaneous solution = 50 units, Subcutaneous Injection, Daily, # 15 mL, 2 Refills, Maintenance, 01/06/22 12:07:00 EDT, Solution, [facility]., ;, 163, cm, 01/03/22 11:20:00 EDT, Height, 84, kg, 01/02/22 19:36:00 EDT, Dry Weight Start Date: 01/06/22 Status: Ordered lidocaine 5% topical film 1 patch, Topically, Daily, PRN Pain , Mild, remove after 12 hours, # 13 each, 5 Refills, Maintenance, 04/29/22 11:56:00 EST, Film, [facility], Partial fill upon patient request if theprescription is for a schedule II opioid drug., 1 p... Start Date: 04/29/22 Status: Ordered lisinopril 20 mg oral tablet 20 mg, 1, tablet, By Mouth, Daily, # 90 tablet, Refills 1, Tot. Refills 1, Maintenance, 07/25/22 12:31:00 EDT, Route to Pharmacy Electronically, [facility], 163, cm, 07/11/22 14:19:00EDT, Height, 83, kg, 02/11/22 19:19:00 EST, Dry Weight Start Date: 07/25/22 Status: Ordered mirtazapine 30 mg oral tablet 1 tablet = 30 mg, By Mouth, Daily at bedtime, Maintenance, 05/24/19 9:12:00 EST, Tablet Start Date: 05/24/19 Status: Ordered omeprazole 40 mg oral enteric coated capsule 1 capsule, By Mouth, Daily, PRN NEEDED, # 30 capsule, 2 Refills, [facility], 162, cm, 09/06/21 13:04:00 EDT, Height, 86, kg, 07/23/21 0:58:00 EDT, Dry Weight Start Date: 10/02/21 Status: Ordered oxyCODONE 15 mg oral tablet 1 tablet = 15 mg, By Mouth, 3 times a day, on contract at [facility], # 84 tablet, 0 Refills, Maintenance, 07/22/22 9:08:00 EDT, [facility], Partial fill upon patient request if [...] 07/08/21 9:39:00 EDT, Route to Pharmacy Electronically, [facility], 162.5, cm, 07/08/21 8:49:00 EDT, Height, 85.8, kg, 06/04/21 10:0... Start Date: 07/08/21 Status: Ordered tiZANidine 4 mg oral capsule See Instructions, PRN Pain , Severe, take as little as possible to control pain not to exceed 3 doses/day, # 60 capsule, 0 Refills, Maintenance, 07/25/22 17:17:00 EDT, [facility]., 163, cm, 07/11/22 14:19:00 EDT, Height, 83, kg, ... Start Date: 07/25/22 Status: Ordered traZODone 50 mg oral tablet See Instructions, 1/2- 1 tablet By Mouth Daily at bedtime, # 30 each, Refills 1, Tot. Refills 1, Maintenance, 06/30/22 14:07:00 EDT, Instructions Replace Required Details, Route to Pharmacy Electronically, [facility], Partial fill upon... Start Date: 06/30/22 Status: Ordered Trulicity Pen 1.5 mg/0.5 mL subcutaneous solution = 1.5 mg, Subcutaneous Infusion, Every week, # 4 each, 5 Refills, Maintenance, 07/25/22 18:12:00 EDT, [facility], Partial fill upon patient request if the prescription is for a schedule II opioid drug., 163, cm, 07/11/22 14:19:00 EDT,... Start Date: 07/25/22 Status: Ordered Trulicity Pen 3 mg/0.5 mL subcutaneous solution See Instructions, INJECT 0.5 ML SUBCUTANEOUSLY EVERY WEEK. 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 Charlene Chung Caren [phone] Confirmed Active Syncope and collapse Confirmed Active Tobacco dependence Confirmed Active DM2 (diabetes mellitus, type 2) Confirmed 04/03/17 Active Incontinence of urine 3 Confirmed Active 1seen on MRI 10/2016, rec repeat imaging in October [address] Abd 09/18/16 at [facility], pending MRI 3urge and stress Social History Social History Type Response Smoking Status Current every day sm oker; Type: Cigarettes; Tobacco use times per day: 1/2 ppd; entered on: 12/24/17 Sex Patient Care team information Care Team Personnel Name: Sindy Bernal RN Position: [facility] RN Member Role: Primary Care Nurse Name: Graciela Thrasher RN Position: [facility] SN RN Member Role: Primary Care Nurse Name: Stevie Angel RN Position: [facility] RN Member Role: Primary Care Nurse Name: Richardson QUIROZ, Leonora Pérez Position: [facility] PCO Associate Professional Member Role: PCP Address: Address: [address] [place] [id number] Name: Keily Ortega RN Position: [facility] RN Member Role: Primary Care Nurse Name: Graciela Munroe RN Position: [facility] RN Member Role: Primary Care Nurse Name: Nichole Pichardo RN Position: [facility] RN Member Role: Primary Care Nurse Name: Melvin Whitfield RN Position: [facility] PCO RN Member Role: Primary Care Nurse Name: Phuong Berkowitz RN Position: [facility] RN Member Role: Primary Care Nurse Name: Joselyn Rain RN Position: [facility] Streetsweeper Operator Member Role: Primary Care Nurse Care Team Related Persons Name: NICK IRA Address: home [address] [place] [address] Name: JHON LARSON Address: home [address] [place] [address] Name: JHON LARSON Address: home [address] [place] [address] Name: GALO CATALAN Name: NANCY CATALAN Address: home [address] [place] [address]
--- OUTSIDE RECORDS SUMMARY | 2023-03-25 08:30 | XMS_ITS | Continuity of Care Document ---
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 Start Date: 04/05/20 Status: Ordered albuterol 0.083% inhalation solution 3 mL = 2.5 mg, Inhalation, Every 4 hours, PRN for wheezing, # 100 each, 5 Refills, Maintenance, 06/27/19 14:32:00 EDT, Solution, [facility]/pharmacy #[id number], 160, cm, 06/01/19 14:08:00 EST, Height, 88.9, kg, 05/23/19 22:09:00 EST, Dry Weight Start Date: 06/27/19 Status: Ordered amitriptyline 50 mg oral tablet 1 tablet = 50 mg, By Mouth, Daily at bedtime, # 30 tablet, 5 Refills, Maintenance, 12/30/19 18:21:00 EDT, Tablet, [facility]/pharmacy #[id number], 163, cm, 12/26/19 13:58:00 EDT, Height, 80, kg, 10/29/19 0:29:00 EDT, Dry Weight Start Date: 12/30/19 Status: Ordered atorvastatin 20 mg oral tablet 1 tablet = 20 mg, By Mouth, Daily, # 90 tablet, 3 Refills, Maintenance, 04/05/20 14:11:00 EST, Tablet, [facility]/pharmacy #[id number], Partial fill upon patient request if the prescription is for a schedule II opioid drug., 162.56, cm, 03/27/20 11:36:00 EST, Heig... Start Date: 04/05/20 Status: Ordered capsaicin 0.025% topical cream 1 application, Topically, 3 times a day, # 45 Gm, 3 Refills, Maintenance, 11/01/19 15:25:00 EDT, Cream, [facility]/pharmacy #[id number], 1 application Topically 3 times a day, 163, cm, 11/01/19 14:40:00 EDT, Height, 80, kg, 10/29/19 0:29:00 EDT, Dry Weight Start Date: 11/01/19 Status: Ordered cetirizine 10 mg oral tablet 1 tablet = 10 mg, By Mouth, Daily, # 30 tablet, 5 Refills, Maintenance, 06/20/20 13:18:00 EDT, Tablet, [facility]/pharmacy #[id number], 162, cm, 05/24/20 9:01:00 EST, [...] Maintenance, 03/02/20 11:18:00 EST, Capsule, [facility]/pharmacy [...] Refills, Maintenance, 05/07/20 13:24:00 EST,Solution, [facility]/pharmacy #[id number], increased dose 12/26/19, 162, cm, [...] Electronically, [facility]/pharmacy #[id number], 162, cm, 04/21/20 11:33:00 EST, Height, 80, kg, 04/18/20 9:48:00 EST, Dry Weight Start Date: 05/07/20 Status: Ordered Mapap 325 mg oral tablet 2 tablet = 650 mg, By Mouth, Every 4 hours, PRN for pain, not to exceed 3000 mg/day. instructions in french, # 120 tablet, 2 Refills, Maintenance, 11/01/19 15:24:00 EDT, Tablet, [facility]/pharmacy #[id number], 163, cm, 11/01/19 14:40:00 EDT, [...] Maintenance, 04/05/20 14:08:00 EST, Tablet, [facility]/pharmacy #[id number], Partial fill upon patient request if the prescription is for a schedule II opioid drug., 162.56, cm, ... Start Date: 04/05/20 Status: Ordered omeprazole 40 mg oral enteric coated capsule 1 capsule = 40 mg, By Mouth, Daily, # 30 capsule, 3 Refills, Maintenance, 05/24/20 9:40:00 EST, EC Capsule, [facility]/pharmacy #[id number], note dose increase, 162, cm, [...] day, for 28 days, on contract at [facility], # 56 tablet, 0 Refills, Acute 08/27/20 16:11:00 EDT, 07/30/20 16:11:00 EDT, [facility]/pharmacy #[id number], Partial [...] Electronically, [facility]/pharmacy #[id number], 162, cm, 05/24/20 9:01:00 EST, Height, 80, kg, 04/18/20 9:48:00 EST, Dry... Start Date: 06/04/20 Status: Ordered Soma 350 mg oral tablet 350 mg, 1, tablet, By Mouth, 3 times a day, # 9 tablet, Refills 0, Tot. Refills 0, Maintenance, 05/04/20 15:46:00 EST, Route to Pharmacy Electronically, [facility]/pharmacy #[id number], Partial fill upon patient request if the prescription is for a schedule II opi... Start Date: 05/04/20 Status: Ordered Spiriva Respimat 60 ACT 2.5 mcg/inh inhalation aerosol 2 puffs, Inhalation, Daily, # 1 each, 11 Refills, Maintenance, 04/05/20 14:17:00 EST, [facility]/pharmacy #[id number], Partial [...] Electronically, [facility]/pharmacy #[id number], 162, cm, 04/21/20 11:33:00 EST, [...]
--- OUTSIDE RECORDS SUMMARY | 2023-03-25 08:30 | XMS_ITS | Continuity of Care Document ---
Author Name Unknown Organization [facility] Address [address] [place] [id number]- Care Team Providers Care Car Refinisher Name Role Phone Richardson DIE MOUNTER, Leonora Pérez Primary Care Physician Encounter [facility] Date(s): 08/20/21 - 09/19/[address] [address]- Allergies, Adverse Reactions, Alerts Substance Reaction Severity Status morphine Active gabapentin swelling Active Lyrica dysphagia Active MetFORMIN Hydrochloride ER black tarry stool Active SEROquel body swelling - all over Act tony Immunizations Given and Recorded Vaccine Date Status Refusal Reason SARS-CoV-2 mRNA ([id number]) vax 05/14/21 Given influenza virus vaccine, inactivated [...] 9:20:00 EST, Powder, Route to Pharmacy Electronically, [id number], [facility], 162.5, cm, 05/10/21 14:47... [...] 2 Refills, Maintenance, 02/11/21 11:17:00 EST, Capsule, [facility]/pharmacy #[id number], Partial [...] 1 Refills, Maintenance, 07/08/21 9:45:00 EDT, Cream[facility], PLEASE CANCEL ESTRADIOL VAGINAL CREAM, 1 [...] 5 Refills, Maintenance, 02/18/21 15:09:00 EST, Capsule, [facility]/pharmacy #[id number], Partial fill upon patient request. [...] Refills, Maintenance, 05/09/21 10:45:00 EST, EC Capsule, [facility], 162.5, cm, 03/22/21 14:58:00 EST, Height, 90.9,kg, 02/02/21 5:59:00 EDT, Dry Weight Start Date: 05/09/21 Status: Ordered OxyCONTIN 30 mg oral tablet, extended release 1 tablet = 30 mg, By Mouth, Every 12 hours, # 56 tablet, 0 Refills, Maintenance, 09/06/21 13:32:00 EDT, ER Tablet, [facility], Partial fill upon patient request if the prescription isfor a schedule II opioid drug. [facility] contract at [facility],... 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
--- OUTSIDE RECORDS SUMMARY | 2023-03-25 08:30 | XMS_ITS | Continuity of Care Document ---
Author Name Unknown Organization [facility] ter Address [address] [place] [address]- Care Team Providers Care Wind Up Operator Name Role Phone Richardson QUIROZ, Leonora Pérez Primary Care Physician [phone] Encounter [facility] Date(s): 02/20/21 - 02/21/21 [facility] [address] [place] [address]- Encounter Diagnosis Chronic back pain(Final) - 02/21/21 Discharge Disposition: A-D/C Home Attending Physician: Mariya Ovalles DO Admitting Physician: Mariya Ovalles DO Referring Physician: Not on Staff, Referring [...] 01/16/21 19:30:00 EDT, Route to Pharmacy Electronically, [facility]/pharmacy #[id number], Partial fill upon patient request if the prescription is for a schedule II o... Start Date: 01/16/21 Status: Ordered Advair Diskus 500 mcg-50 mcg inhalation powder 1, puffs, Inhalation, 2 times a day, j45.909, # 1 each, Refills 11, Tot. Refills 11, Maintenance, 04/05/20 14:12:00 EST, Powder, Route to Pharmacy Electronically, [id number], [facility]/pharmacy #[id number], 162.56, cm, 03/27/20 11:36:00... Start Date: 04/05/20 Status: Ordered albuterol 0.083% inhalation solution 3 mL = 2.5 mg, Inhalation, Every 4 hours, PRN for wheezing, # 100 each, 2 Refills, Maintenance, 08/15/20 10:22:00 EDT, Solution, [facility]/pharmacy #[id number], 163, cm, 08/09/20 8:45:00 EDT, Height, 84.8, kg, 06/25/20 20:28:00 EDT, Dry Weight Start Date: 08/15/20 Status: Ordered amitriptyline 50 mg oral tablet 1 tablet, By Mouth, Daily at bedtime, # 90 tablet, 1 Refills, [id number], 155, cm, 02/04/21 11:46:00 EDT, Height, 90.9, kg, 02/02/21 5:59:00 EDT, Dry Weight Start Date: 02/07/21 Status: Ordered atorvastatin 20 mg oral tablet 1 tablet = 20 mg, By Mouth, Daily, # 90 tablet, 3 Refills, Maintenance, 04/05/20 14:11:00 EST, Tablet, [facility]/pharmacy #[id number], Partial fill upon patient request if the prescription is for a schedule II opioid drug., 162.56, cm, 03/27/20 11:36:00 EST, Heig... Start Date: 04/05/20 Status: Ordered capsaicin 0.025% topical cream 1 application, Topically, 3 times a day, # 45 Gm, 3 Refills, Maintenance, 11/01/19 15:25:00 EDT, Cream, [facility]/pharmacy #[id number], 1 application Topically 3 times a day, 163, cm, 11/01/19 14:40:00 EDT, Height, 80, kg, 10/29/19 0:29:00 EDT, Dry Weight Start Date: 11/01/19 Status: Ordered cetirizine 10 mg oral tablet 1 tablet = 10 mg, By Mouth, Daily, # 30 tablet, 5 Refills, Maintenance, 06/20/20 13:18:00 EDT, Tablet, [facility]/pharmacy #[id number], 162, cm, 05/24/20 9:01:00 EST, Height, 80, kg, 04/18/20 9:48:00 EST, Dry Weight Start Date: 06/20/20 Status: Ordered cholecalciferol 5000 intl units oral capsule 1 capsule = 125 mcg, By Mouth, Daily, with food, # 100 capsule, 2 Refills, Maintenance, 02/11/21 11:17:00 EST, Capsule, [facility]/pharmacy #[id number], Partial fill upon patient request if [...] 1 Refills, Maintenance, 12/05/20 12:42:00 EDT, Cream, [facility]/pharmacy #[id number], 1 application Topically 2 times a [...] DAY, # 16 mL, 1 Refills, Maintenance, [id number], 30, USE 1 SPRAY IN BOTH NOSTRILS [...] 2 Refills, Maintenance, 10/29/20 14:07:00 EDT, Tablet, [facility]/pharmacy #[id number], 163, cm, 08/15/20 14:23:00 EDT, Height, 84.8, kg, 06/25/20 20:28:00 EDT, Dry Weight Start Date: 10/29/20 Status: Ordered Lantus 100 u/ml subcutaneous solution = 40 units, Subcutaneous Injection, Daily, # 12 mL, 11 Refills, Maintenance, 05/07/20 13:24:00 EST,Solution, [facility]/pharmacy #[id number], increased dose 12/26/19, 162, cm, 04/21/20 11:33:00 EST, Height, 80, kg, 04/18/20 9:48:00 EST, Dry Weight Start Date: 05/07/20 Status: Ordered lidocaine 5% topical film 1 patch, Topically, Daily, For chronic radicular back pain, # 30 patch, 5 Refills, Maintenance, 10/11/20 8:15:00 EDT, [facility]/pharmacy #[id number], 1 patch Topically Daily,Instr:For chronic radicular [...] 0 Refills, Maintenance, 08/15/20 15:59:00 EDT, Capsule, [facility]/pharmacy #[id number], Partial fill upon patient request if the prescription is for a schedule II opioid drug., 163, cm, 08/15/20 14:23:00 EDT, Heig... Start Date: 08/15/20 Status: Ordered mirabegron 25 mg oral tablet, extended release 1 tablet = 25 mg, By Mouth, Daily, do not crush or chew, # 30 tablet, 11 Refills, Maintenance, 12/31/20 15:58:00 EDT, ER Tablet, [facility]/pharmacy #[id number], Partial fill upon patient request if [...] Acute 02/28/21 14:14:00 EST, 01/31/21 14:14:00 EDT, [facility], CANCEL OXYCODONE- DO NOT FILL. PRESCRIBING MORPHINE INSTEAD. ON CONTRACT AT [facility], 165, cm,... Start Date: 01/31/21 Stop Date: 02/28/21 Status: Ordered nabumetone 750 mg oral tablet 1 tablet = 750 mg, By Mouth, 2 times a day, Do not take with Naproxen, # 60 tablet, 1 Refills, Maintenance, 01/31/21 14:16:00 EDT, Tablet, [facility], Partial fill upon patient request if the prescription is for a schedule II opioid . Start Date: 01/31/21 Status: Ordered omeprazole 40 mg oral enteric coated capsule 1 capsule = 40 mg, By Mouth, Daily, PRN Dyspepsia, # 90 capsule, 0 Refills, Maintenance, 01/11/21 13:46:00 EDT, EC Capsule, [facility]/pharmacy #[id number], 165, cm, 12/31/20 14:56:00 EDT, Height, 87.6, kg, 12/31/20 14:56:00 EDT, Dry Weight Start Date: 01/11/21 Status: Ordered oxyCODONE 15 mg oral tablet 1 tablet = 15 mg, By Mouth, 2 times a day, for 28 days, # 56 tablet, 0 Refills, Acute 03/18/21 15:20:00 EST, 02/18/21 15:20:00 EST, [facility], Client on contract at [facility], failed Morphine, switching to oxycodone 15mg BID today 02/18/21... Start Date: 02/18/21 Stop Date: 03/18/21 Status: Ordered Oxycontin ER Tablet 10 mg, ER Tablet, By Mouth, Once, STAT, 02/21/21 10:22:00 EST, Stop date 02/21/21 10:22:00 EST Notes: Do Not Crush. Start Date: 02/21/21 Stop Date: 02/21/21 Status: Completed Senna 8.6 mg oral tablet 8.6 mg, 1, tablet, By Mouth, Daily at bedtime, # 100 tablet, Refills 11, Tot. Refills 11, Maintenance, 10/30/20 11:37:00 EDT, Route to Pharmacy Electronically, [facility]/pharmacy #[id number], 163, cm, 08/15/20 14:23:00 EDT, Height, 84.8, kg, 06/25/20 20:28:00 EDT... 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 Jb Fabian [phone](Confirmed) Active Syncope and collapse(Confirmed) Active Tobacco dependence(Confirmed) Active DM2 (diabetes mellitus, type 2)(Confirmed) 04/03/17 Active Incontinence of urine(Confirmed) 3 Active 1seen on MRI 10/2016, rec repeat imaging in October [address] [place] [facility] [place] 3urge and stress Results Radiology Reports * Exam Date Time Procedure Performing Provider Status 02/20/21 1:41 PM XR Hip w/Pelvis 2-3 View Left Lakeisha Mao (Verified) Notes: (XR Hip w/Pelvis 2-3 View Left) Reason For Exam: Pain RESULT: XR Hip w/Pelvis 2-3 View Left XR Hip w/Pelvis 2-3 View Left HISTORY: Left hip pain, acutely worse. COMPARISON: None. FINDINGS: No fracture or dislocation. No suspicious osseous abnormalities. Mild multilevel degenerative changes of the lower lumbar spine. Hip joints appear normal. Sacrum appears normal. IMPRESSION: No acute osseous abnormality. I have personally reviewed the images and I agree with this report. WSN: [id number] Ordering Physician: Nate Josue Dictated By: Quincy GERARDO, Chuy Dotson Dictated Date/Time: 02/20/21 1:51 pm Reviewed By: Sebastian Feng MD Signed By: Sebastian Feng MD Signed Date/Time: 02/20/21 1:56 pm Transcribed By: WILVER Transcribed Date/Time: 02/20/21 1:48 pm Vital Signs Most recent to oldest [Reference Range]: 1 2 3 Weight 88.8 kg (02/21/21 9:04 AM) 88.8 kg (02/20/21 1:14 PM) Oxygen Saturation [94-100 %] 95 % (02/21/21 10:32 AM) 92 % *L* (02/21/21 7:52 AM) 94 % (02/21/21 5:38 AM) Pulse Rate [55-90 bpm] 84 bpm (02/21/21 10:32 AM) 73 bpm (02/21/21 7:52 AM) 77 bpm (02/21/21 5:38 AM) Blood Pressure [90-138/55-84 mm Hg] 175/95mm Hg *H* (02/21/21 10:32 AM) 135/104mm Hg (02/21/21 7:52 AM) 132/92mm Hg (02/21/21 5:38 AM) Respiratory Rate [16-30 br/min] 21 br/min (02/21/21 10:34 AM) 16 br/min (02/21/21 10:32 AM) 18 br/min (02/21/21 7:52 AM) Temperature [96.8-100.4 DegF] 98.4 DegF (02/21/21 7:52 AM) 98.3 DegF (02/21/21 5:38 AM) 98.5 DegF (02/21/21 3:39 AM) Mode of Delivery (Oxygen) Room air (02/21/21 10:32 AM) Room air (02/21/21 7:52 AM) Room air (02/21/21 5:38 AM) Blood pressure sites Arm, right (02/21/21 10:32 AM) Arm, right (02/21/21 7:52 AM) Arm, right (02/21/21 5:38 AM) Temperature Route Oral (02/21/21 7:52 AM) Oral (02/21/21 5:38 AM) Oral (02/21/21 3:39 AM) Social History Social History Type Response Smoking Status Current every day kaitlin valle; Type: Cigarettes; Tobacco use times per day: 1/2 ppd; entered on: 12/24/17 Sex
--- OUTSIDE RECORDS SUMMARY | 2023-03-25 08:30 | XMS_ITS | Continuity of Care Document ---
Author Name Unknown Organization [facility] Address [address] [place] [address]- Care Team Providers Care Animal Tech Name Role Phone Richardson QUIROZ, Leonora Pérez Primary Care Physician [phone] Encounter [facility] Date(s): 08/15/19 - 09/14/19 [facility] [address] [address]- [facility] Attending Physician: Clarence Reynaga Admitting Physician: Clarence [...] 12:48:00 EST, Powder, Route to Pharmacy Electronically, [id number], [facility]/pharmacy #[id number], 158, cm, 04/26/19 9:58:00 EST, H... Start Date: 04/27/19 Status: Ordered albuterol 0.083% inhalation solution 3 mL = 2.5 mg, Inhalation, Every 4 hours, PRN for wheezing, # 100 each, 5 Refills, Maintenance, 06/27/19 14:32:00 EDT, Solution, [facility]/pharmacy #[id number], 160, cm, 06/01/19 14:08:00 [...] 5 Refills, Maintenance, 04/19/19 15:40:00 EST, Tablet, [facility]/pharmacy #[id number], 158, cm, 04/04/19 15:21:00 EST, Height, 82, kg, 04/01/19 16:10:00 EST, Dry Weight Start Date: 04/19/19 Status: Ordered clonazePAM 0.5 mg oral tablet TAKE 1 TABLET BY MOUTH TWICE A DAY NEEDED Start Date: 06/02/19 Status: Ordered clotrimazole 1% topical cream 1 application, Topically, 2 times a day, # 30 Gm, 0 Refills, Maintenance, 05/30/19 19:02:00 EST, Cream, [facility]/pharmacy #[id number], 1 application Topically 2 [...] 3 Refills, Maintenance, 09/02/19 10:23:00 EDT, Tablet, [facility]/pharmacy #[id number], PLEASE CANCEL LISINOPRIL, 160, cm, 07/22/19 [...] patch, 5 Refills, Maintenance, 06/27/19 14:37:00 EDT, [facility]/pharmacy #[id number], 1 patch Topically Daily,Instr:For [...] jordanian, # 120 tablet, 2 Refills, Maintenance, 07/25/19 8:41:00 EDT, Tablet, [facility]/pharmacy #[id number], 160, cm, 07/22/19 15:08:00 EDT, Height, 86.8, kg, 04... Start Date: 07/25/19 Status: Ordered metFORMIN 1000 mg oral tablet 1 tablet = 1,000 mg, By Mouth, 2 times a day, # 60 tablet, 6 Refills, Maintenance, 09/12/19 14:39:00 EDT, Tablet, [facility]/pharmacy #[id number], 160, cm, 07/22/19 15:08:00 EDT, [...] pain, for 28 days, on contract at [facility]., # 56 tablet, 0 Refills, Acute 10/10/19 8:19:00 EDT, 09/12/19 8:19:00 EDT, [facility]/pharmacy #[id number], Partial fill uponpatient request, 160, cm, 07/22/19 15:08:00 EDT, He... Start Date: 09/12/19 Stop Date: 10/10/19 Status: Ordered Pen [place], 31 G x 5 mm BD Ultra [...] 05/30/19 18:52:00 EST, Route to Pharmacy Electronically, [facility]/pharmacy #[id number], 160, cm, 05/30/19 18:08:00 EST, Height, 88.9, kg, 05/23/19... Start Date: 05/30/19 Status: Ordered raNITIdine 300 mg oral tablet See Instructions, # 30 tablet, Refills 2 Tot. Refills 2, TAKE 1 TABLET BY MOUTH EVERYDAY AT BEDTIME, [facility]/pharmacy #[id number] Start Date: 01/27/19 Status: Ordered [...] 06/10/19 16:12:00 EST, Route to Pharmacy Electronically, [facility]/pharmacy #[id number], 160, cm, 06/01/19 14:08:00 EST, Height, 88.9, kg, 05/23/19 22:09:00 EST,... Start Date: 06/10/19 Status: Ordered Spiriva Respimat 60 ACT 2.5 mcg/inh inhalation aerosol 2 puffs, Inhalation, Daily, # 1 each, 5 Refills, Maintenance, 04/26/19 10:30:00 EST, [facility]/pharmacy #[id number], 158, cm, 04/26/19 9:58:00 EST, Height, 82, kg, 04/01/19 16:10:00 EST, Dry Weight Start Date: 04/26/19 Status: Ordered tiZANidine 4 mg oral tablet 4 mg, 1, tablet, By Mouth, Every 8 hours, # 90 tablet, Refills 1, Tot. Refills 1, Maintenance, 09/02/19 10:12:00 EDT, [id number], 160, cm, 07/22/19 15:08:00 EDT, Height, [...] MARILIN on CPAP(Confirmed) Active Panic attacks(Confirmed) Active *BHN/BHCP/SARA-Harmonyhalima MacdonaldUctyncp-[phone]/[facility], active care coordination(Confirmed) Active Acute meniscal tear of right knee(Confirmed) 6 06/2015 Active Tobacco dependence(Confirmed) Active DM2 (diabetes mellitus, type 2)(Confirmed) 04/03/17 Active Incontinence of urine(Confirmed) 7 Active 1surgically repaired November 2015, Dr. Sg MENDEZ 2DJD Lumbar Spine per MRI 3L3-L4 disc herniation per client report 4seen on MRI 10/2016, rec repeat imaging in October [address] Abd 09/18/16 at [facility] [place], pending MRI 6surgically repaired July 2015 Dr. Sg MENDEZ 7urge and stress Social History Social History Type Response Tobacco Use: Pt states she q uit smoking 1 week ago. Sex Female
--- OUTSIDE RECORDS SUMMARY | 2023-03-25 08:30 | XMS_ITS | Continuity of Care Document ---
Author Name Unknown Organization [facility] Address [address] [place] [address]- Care Team Providers Care Rn Telephonic Name Role Phone Richardson TOLL LINEMAN, Leonora Pérez Primary Care Physician Encounter [facility] Date(s): 07/29/21 - 08/28/[address] [address]- Allergies, Adverse Reactions, Alerts Substance Reaction Severity Status morphine Active gabapentin swelling Active MetFORMIN Hydrochloride ER black tarry stool Active Lyrica dysphagia Active SEROquel body swelling - all over Act tony Immunizations Given and Recorded Vaccine Date Status Refusal Reason SARS-CoV-2 mRNA ([id number]) vax 05/14/21 Given influenza virus vaccine, inactivated [...] 15:15:00 EDT, Route to Pharmacy Electronically, [facility], Partial fill upon patient request if the prescription is for a sched... Start Date: 07/18/21 Status: Ordered Advair Diskus 500 mcg-50 mcg inhalation powder 1, puffs, Inhalation, 2 times a day, j45.909, # 1 each, Refills 5, Tot. Refills 5, Maintenance, 05/15/21 9:20:00 EST, Powder, Route to Pharmacy Electronically, [id number], [facility], 162.5, cm, 05/10/21 14:47... Start Date: 05/15/21 Status: Ordered albuterol 0.083% inhalation solution 3 mL = 2.5 mg, Inhalation, Every 4 hours, PRN for wheezing, # 100 each, 2 Refills, Maintenance, 05/15/21 9:30:00 EST, Solution, [facility], 162.5, cm, 05/10/21 14:47:00 EST, Height, 90.9, kg, 02/02/21 5:59:00 EDT, Dry Weight Start Date: 05/15/21 Status: Ordered amitriptyline 25 mg oral tablet 25 mg, 1, tablet, By Mouth, Daily at bedtime, Dose decrease, # 30 tablet, Refills 0, Tot. Refills 0, Maintenance, 08/01/21 15:07:00 EDT, Route to Pharmacy Electronically, [facility], Partial fill upon patient request if the prescriptio... Start Date: 08/01/21 Status: Ordered cetirizine 10 mg oral tablet 1 tablet = 10 mg, By Mouth, Daily, # 30 tablet, 5 Refills, Maintenance, 08/28/21 9:07:00 EDT, Tablet, [facility], 162, cm, 08/22/21 9:46:00 EDT, Height, [...] 1 Refills, Maintenance, 07/08/21 9:45:00 EDT, [facility] P[facility] CANCEL ESTRADIOL VAGINAL CREAM, [...] 5 Refills, Maintenance, 08/28/21 9:07:00 EDT,Tablet, [facility], Partial fill upon patient request if [...] capsule, 2 Refills, Maintenance, 08/28/21 9:07:00 EDT, [facility]., 162, cm, 08/22/21 9:46:00 [...] Refills, Maintenance, 06/18/21 21:04:00 EDT, Tablet, [facility], 162.5, cm, 06/17/21 13:04:00 EDT, Height, 85.8, kg, 06/04/21 10:03:00 EST, Dry Weight Start Date: 06/18/21 Status: Ordered Lantus 100 u/ml subcutaneous solution = 50 units, Subcutaneous Injection, Daily, # 15 mL, 5 Refills, Maintenance, 07/08/21 9:38:00 EDT, Solution, [facility], ;, 162.5, cm, 07/08/21 8:49:00 EDT, Height, 85.8, kg, 06/04/21 10:03:00 EST, Dry Weight Start Date: 07/08/21 Status: Ordered lisinopril 20 mg oral tablet 20 mg, 1, tablet, By Mouth, Daily, # 90 tablet, Refills 3, Tot. Refills 3, Maintenance, 08/28/21 9:07:00 EDT, Route to Pharmacy Electronically, [facility], 162, cm, 08/22/21 9:46:00 EDT, Height, [...] Maintenance, 05/09/21 10:45:00 EST, EC Capsule, [facility], 162.5, cm, 03/22/21 14:58:00 EST, Height, 90.9,kg, 02/02/21 5:59:00 EDT, Dry Weight Start Date: 05/09/21 Status: Ordered OxyCONTIN 15 mg oral tablet, extended release 1 tablet = 15 mg, By Mouth, Every 12 hours, # 56 tablet, 0 Refills, Maintenance, 08/03/21 7:30:00 EDT, ER Tablet, [facility], Partial fill upon patient request if the prescription is for a schedule II opioid drug. Patient on contract.... Start Date: 08/03/21 Stop Date: 08/31/21 Status: Ordered Senna 8.6 mg oral tablet 8.6 mg, 1, tablet, By Mouth, Daily at bedtime, # 100 tablet, Refills 11, Tot. Refills 11, Maintenance, 07/08/21 9:39:00 EDT, Route to Pharmacy Electronically, [facility]., 162.5, cm, 07/08/21 8:49:00 EDT, Height, 85.8, kg, 06/04/21 10:0... Start Date: 07/08/21 Status: Ordered Trulicity Pen 3 mg/0.5 mL subcutaneous solution 0.5 mL = 3 mg, Subcutaneous Injection, Every week, rotate injection sites, # 2 mL, 5 Refills, Maintenance, 08/05/21 17:53:00 EDT, Solution, [facility], Partial fill upon patient [...] on CPAP(Confirmed) Active Panic attacks(Confirmed) Active BHN/BHCP Foreclosure Field Inspector Jb Fabian [phone](Confirmed) Active Syncope and collapse(Confirmed) Active Tobacco dependence(Confirmed) Active DM2 (diabetes mellitus, type 2)(Confirmed) 04/03/17 Active Incontinence of urine(Confirmed) 3 Active 1seen on MRI 10/2016, rec repeat imaging in October [address] Abd 09/18/16 at [facility] [place], pending MRI 3urge and stress Social History Social History Type Response Smoking Status Current every day kaitlin valle; Type: Cigarettes; Tobacco use times per day: 1/2 ppd; entered on: 12/24/17 Sex
--- OUTSIDE RECORDS SUMMARY | 2023-03-25 08:31 | XMS_ITS | Continuity of Care Document ---
Author Name Unknown Organization [facility] Address [address] [place] [address]- Care Team Providers Care Core Machine Operator Name Role Phone Aaron GERARDO, Pura Mahajan Primary Care Physician Encounter [facility] Date(s): 12/25/22 - 01/24/23 [facility] [address] [place] [address]- Allergies, Adverse Reactions, Alerts Substance Reaction Severity Status morphine Active gabapentin swelling Active Lyrica dysphagia Active SEROquel body swelling - all over Act tony MetFORMIN Hydrochloride ER black tarry stool Active Immunizations Given and Recorded Vaccine Date Status Refusal Reason [id number] 12y+ bivalent booster vax 01/30/22 Given influenza virus vaccine, inactivated 01/30/22 Give n influenza virus vaccine, inactivated 02/04/21 Give n influenza virus vaccine, inactivated 1 04/19/20 Gi tonio influenza virus vaccine, inactivated 03/12/19 Give n influenza virus vaccine, inactivated 01/19/18 Give n influenza virus vaccine, inactivated 02/16/17 Give n pneumococcal 20-valent conjugate vaccine 12/26/21 Given SARS-CoV-2 mRNA ([id number]) vax 05/14/21 Given SARS-CoV-2 (COVID-19) mRNA BNT-162b2 [...] 09/25/22 17:00:00 EDT, Route to Pharmacy Electronically, [facility], Partial fill upon patient request if the prescription is for a sched... Start Date: 09/25/22 Status: Ordered Advair Diskus 500 mcg-50 mcg inhalation powder 1, inhalation, Inhalation, 2 times a day, rinse mouth and throat after use, # 60 each, Refills 11, Tot. Refills 11, Maintenance, 09/25/22 17:00:00 EDT, Inhaler, Route to Pharmacy Electronically, [id number], [facility]... Start Date: 09/25/22 Status: Ordered albuterol 0.083% inhalation solution 3 mL = 2.5 mg, Neb, Every 4 hours, PRN Wheezing/Shortness of Breath, # 100 each, 11 Refills, Maintenance, 12/26/22 8:14:00 EDT, Inhalation Solution, [facility], Partial fill upon patient request if the prescription is for a schedule II... Start Date: 12/26/22 Status: Ordered All Day Allergy 10 mg oral tablet 1 tablet, By Mouth, Daily, # 90 tablet, 3 Refills, Maintenance, 11/20/22 16:48:00 EDT, [facility], 163, cm, 11/20/22 16:00:00 EDT, Height, 83, kg, 02/11/22 19:19:00 EST, Dry Weight Start Date: 11/20/22 Status: Ordered amLODIPine 5 mg oral tablet 5 mg, 1, tablet, By Mouth, Daily, # 90 tablet, Refills 3, Tot. Refills 3, Maintenance, 04/29/22 11:56:00 EST, Route to Pharmacy Electronically, [facility], Partial fill upon patient request if the prescription is for a schedule II opio... Start Date: 04/29/22 Status: Ordered atorvastatin 40 mg oral tablet 1 tablet = 40 mg, By Mouth, Daily, # 90 tablet, 3 Refills, Maintenance, 09/25/22 16:58:00 EDT, Tablet, [facility]., Partial fill upon patient request [...] Gm, 2 Refills, Maintenance, 12/26/22 8:13:00 EDT, [facility]., 15, APPLY TOPICALLY TO AFFECTED AREA TWO TIMES A DAY FOR TWO WEEKS, 163, cm, ... Start Date: 12/26/22 Status: Ordered docusate-senna 50 mg-187 mg oral tablet 2 tablet, By Mouth, 2 times a day, PRN Constipation, # 100 tablet, 11 Refills, Maintenance, 08/14/22 16:57:00 EDT, Tablet, [facility]., Partial fill upon patient request [...] 3 Refills, Maintenance, 09/25/22 17:01:00 EDT, Tablet, [facility], Partial fill upon patient request if the prescription is for aschedule II opioid drug., 163, cm, 09/25/22 16:20:0... Start Date: 09/25/22 Status: Ordered ibuprofen 800 mg oral tablet 1, tablet, By Mouth, 3 times a day, PRN, # 90 tablet, Refills 1, Tot. Refills 1, Maintenance, NEEDED FOR PAIN, 10/22/22 15:19:00 EDT, Route to Pharmacy Electronically, [facility], 163, cm, 09/25/22 16:20:00 EDT, Height, 83, kg, 11/0... Start Date: 10/22/22 Status: Ordered Januvia 100 mg oral tablet 1 tablet, By Mouth, Daily, # 30 tablet, 11 Refills, Maintenance, 11/26/22 10:02:00 EDT, [facility], 163, cm, 11/20/22 16:00:00 EDT, Height, 83, kg, 02/11/22 19:19:00 EST, Dry Weight Start Date: 11/26/22 Status: Ordered lidocaine 5% topical film 1 patch, Topically, Daily, PRN Pain , Mild, remove after 12 hours, # 13 each, 5 Refills, Maintenance, 09/25/22 16:59:00 EDT, Film, [facility], Partial fill upon patient request if theprescription is for a schedule II opioid drug., 1 p... Start Date: 09/25/22 Status: Ordered lisinopril 20 mg oral tablet 20 mg, 1, tablet, By Mouth, Daily, # 90 tablet, Refills 3, Tot. Refills 3, Maintenance, 11/20/22 16:48:00 EDT, Route to Pharmacy Electronically, [facility], 163, cm, 11/20/22 16:00:00EDT, Height, 83, kg, 02/11/22 19:19:00 EST, Dry Weight Start Date: 11/20/22 Status: Ordered mirtazapine 30 mg oral tablet 1 tablet = 30 mg, By Mouth, Daily at bedtime, # 90 tablet, 1 Refills, Maintenance, 09/25/22 17:00:00 EDT, Tablet, [facility]., Partial fill upon patient request if the prescription is for a schedule II opioid drug., 163, cm, 09/25/22 16... Start Date: 09/25/22 Status: Ordered omeprazole 40 mg oral enteric coated capsule 1 capsule, By Mouth, Daily, PRN NEEDED, # 90 capsule, 1 Refills, Maintenance, 11/25/22 10:53:00 EDT, [facility], 163, cm, 11/20/22 16:00:00 EDT, Height, 83, kg, 02/11/22 19:19:00 EST, Dry Weight Start Date: 11/25/22 Status: Ordered oxyCODONE 15 mg oral tablet 1 tablet = 15 mg, By Mouth, Every 8 hours, PRN Pain , Severe, # 84 tablet, 0 Refills, Maintenance, 01/21/23 9:27:00 EDT, [facility], Partial fill upon patient request if the prescription is for a schedule II opioid drug., 163, cm, 11/04... Start Date: 01/21/23 Stop Date: 02/18/23 Status: Ordered prazosin 2 mg oral capsule via psychiatry [facility], 0 Refills, Maintenance, 01/19/23 21:19:00 EDT, Partial fill upon patient request if the prescription is for a schedule II opioid drug. Start Date: 01/19/23 Status: Ordered tiZANidine 4 mg oral tablet 1, tablet, By Mouth, 3 times a day, PRN, # 90 tablet, Refills 1, Maintenance, NEEDED FOR SEVERE PAIN, 11/21/22 15:54:00 EDT, [facility] 163, cm, 11/20/22 16:00:00 EDT, Height, 83, kg, 02/11/22 19:19:00 E... Start Date: 11/21/22 Status: Ordered traZODone 50 mg oral tablet 1/2 TO 1 TABLET, By Mouth, Daily at bedtime, # 30 tablet, Refills 5, Maintenance, 08/29/22 11:31:00EDT, Route to Pharmacy Electronically, [facility], 163, cm, 08/14/22 16:50:00 EDT, Height, 83, kg, 02/11/22 19:19:00 EST, Dry Weight Start Date: 08/29/22 Status: Ordered triamcinolone 55 mcg/inh nasal spray 1 sprays = 55 mcg, Nares, Both, Daily, # 1 each, 5 Refills, Maintenance, 08/14/22 16:59:00 EDT, [facility], Partial fill upon patient request if the prescription is for a schedule II opioid drug., 1 sprays Nares, Both Daily, 163, cm, 0... Start Date: 08/14/22 Status: Ordered Trulicity Pen 1.5 mg/0.5 mL subcutaneous solution = 1.5 mg, Subcutaneous Infusion, Every week, # 4 each, 11 Refills, Maintenance, 11/20/22 16:49:00 EDT, [facility], Partial fill upon patient [...] Confirmed Active Panic attacks Confirmed Active BHN/BHCP Licensing Representative Charlene Fabian [phone] Confirmed Active Syncope and collapse Confirmed Active Tobacco dependence Confirmed Active DM2 (diabetes mellitus, type 2) Confirmed 04/03/17 Active Incontinence of urine 5 Confirmed Active 1on polysomnogram 2seen on MRI 10/2016, rec repeat imaging in October 2017 pain managemnt team/ Dr Diop indicated they thought pain was fibromyalgia 4seen on CT Abd 09/18/16 at [facility], pending MRI 5urge and stress Social History Social History Type Response Smoking Status Current every day sm oksánchez; Type: Cigarettes; Tobacco use times per day: 1/2 ppd; entered on: 12/24/17 Sex Patient Care team information Care Team Personnel Name: Sindy Bernal RN Position: [facility] RN Member Role: Primary Care Nurse Name: Graciela Thrasher RN Position: [facility] SN RN Member Role: Primary Care Nurse Name: Stevie Angel RN Position: [facility] RN Member Role: Primary Care Nurse Name: Keily Ortega RN Position: [facility] RN Member Role: Primary Care Nurse Name: Graciela Munroe RN Position: [facility] RN Member Role: Primary Care Nurse Name: Nichole Pichardo RN Position: [facility] RN Member Role: Primary Care Nurse Name: Melvin Whitfield RN Position: [facility] AMB Nurse Member Role: Primary Care Nurse Name: Phuong Berkowitz RN Position: [facility] RN Member Role: Primary Care Nurse Name: Pura Walker MD Position: [facility] Physician - Primary Care Member Role: PCP Address: Address: [address] [place] [address] Name: Joselyn Rain RN Position: [facility] Hospital Bus Greaser Member Role: Primary Care Nurse Care Team Related Persons Name: IRA ROMERO Address: home [address] [place] [address] Name: JHON LARSON Address: [address] [place] [address] Name: JHON LARSON Address: [address] [place] [address] Name: GALO CATALAN Name: NANCY CATALAN Address: home [address] [place] [address]
--- OUTSIDE RECORDS SUMMARY | 2023-03-25 08:31 | XMS_ITS | Continuity of Care Document ---
Author Name Unknown Organization [facility] Address [address] [place] [address]- Care Team Providers Care Workplace Rehabilitation Officer Name Role Phone Richardson QUIROZ, Leonora Pérez Primary Care Physician [phone] Encounter [facility] Date[facility]s): 07/28/19 - 08/04/19 [facility] [address] [place] [address]- [place] Encounter Diagnosis Asthma exacerbation(Discharge Diagnosis) - 07/28/19 Attending Physician: Jean Paul Alexandra MD Allergies, Adverse Reactions, Alerts Substance Reaction [...] 12:48:00 EST, Powder, Route to Pharmacy Electronically, [id number], [facility]/pharmacy #[id number], 158, cm, 04/26/19 9:58:00 EST, H... Start Date: 04/27/19 Status: Ordered albuterol 0.083% inhalation solution 3 mL = 2.5 mg, Inhalation, Every 4 hours, PRN for wheezing, # 100 each, 5 Refills, Maintenance, 06/27/19 14:32:00 EDT, Solution, [facility]/pharmacy #[id number], 160, cm, 06/01/19 14:08:00 EST, Height, [...] Maintenance, 04/19/19 15:40:00 EST, Tablet, [facility]/pharmacy #[id number], 158, cm, 04/04/19 15:21:00 EST, Height, 82, kg, 04/01/19 16:10:00 EST, Dry Weight Start Date: 04/19/19 Status: Ordered clonazePAM 0.5 mg oral tablet TAKE 1 TABLET BY MOUTH TWICE A DAY NEEDED Start Date: 06/02/19 Status: Ordered clotrimazole 1% topical cream 1 application, Topically, 2 times a day, # 30 Gm, 0 Refills, Maintenance, 05/30/19 19:02:00 EST, Cream, [facility]/pharmacy #[id number], 1 application [...] Maintenance, 04/28/19 16:05:00 EST, Tablet, [facility]/pharmacy #[id number], 158, cm, 04/28/19 14:51:00 EST, Height, 82, kg, 04/01/19 16:10:00 EST, Dry Weight Start Date: 04/28/19 Status: Ordered lidocaine 5% topical film 1 patch, Topically, Daily, For chronic radicular back pain, # 30 patch, 5 Refills, Maintenance, 06/27/19 14:37:00 EDT, [facility]/pharmacy #[id number], 1 patch Topically Daily,Instr:For chronic radicular back pain, 160, cm, 06/01/19 14:08:00 EST, Height, 88.9, kg,... Start Date: 06/27/19 Status: Ordered lisinopril 10 mg oral tablet 10 mg, 1, tablet, By Mouth, Daily, # 90 tablet, Refills 3, Tot. Refills 3, Maintenance, 05/08/19 20:27:00 EST, Route to Pharmacy Electronically, [facility]/pharmacy #[id number], to replace 2.5mg dose, 158, cm, [...] not to exceed 3000 mg/day. instructions in argentine, # 120 tablet, 2 Refills, Maintenance, 07/25/19 8:41:00 EDT, Tablet, [facility]/pharmacy #[id number], 160, cm, 07/22/19 15:08:00 EDT, Height, 86.8, kg, 04... Start Date: 07/25/19 Status: Ordered metFORMIN 750 mg oral tablet, extended release 1 tablet = 750 mg, By Mouth, 2 times a day, # 60 tablet, 6 Refills, Maintenance, 05/30/19 18:54:00 EST, ER Tablet, [facility]/pharmacy #[id number], dose increased to BID 05/30/19, 160, cm, 05/30/19 18:08:00 EST, Height, 88.9, kg, 05/23/19 22:09:00 EST, Dry Weight Start Date: 05/30/19 Status: Ordered mirtazapine 30 mg oral tablet 1 tablet = 30 mg, By Mouth, Daily at bedtime, Maintenance, 05/24/19 9:12:00 EST, Tablet Start Date: 05/24/19 Status: Ordered prazosin 1 mg oral capsule 1 mg, 1, capsule, By Mouth, Daily at bedtime, for nightmares, # 30 capsule, Refills 0, Tot. Refills0, Maintenance, 05/30/19 18:52:00 EST, Route to Pharmacy Electronically, [facility]/pharmacy #[id number], 160, cm, 05/30/19 18:08:00 EST, Height, 88.9, kg, 05/23/19... Start Date: 05/30/19 Status: Ordered raNITIdine 300 mg oral tablet See Instructions, # 30 tablet, Refills 2 Tot. Refills 2, TAKE 1 TABLET BY MOUTH EVERYDAY AT BEDTIME, [facility]/pharmacy #[id number] Start Date: 01/27/19 Status: Ordered Senexon-S 2 tablet, By Mouth, Daily at bedtime, 0 Refills, Maintenance, 11/25/18 10:10:49 EDT Start Date: 11/25/18 Status: Ordered senna 187 mg oral tablet 1 tablet = 8.6 mg, By Mouth, Daily at bedtime, PRN as needed for constipation, # 100 tablet, 5 Refills, Maintenance, 05/04/19 9:35:00 EST, [facility]/pharmacy #[id number], 158, cm, 04/28/19 14:51:00 EST, Height, 82, kg, 04/01/19 16:10:00 EST, Dry Weight Start Date: 05/04/19 Status: Ordered Senna 8.6 mg oral tablet 8.6 mg, 1, tablet, By Mouth, Daily at bedtime, # 100 tablet, Refills 2, Tot. Refills 2, Maintenance, 06/10/19 16:12:00 EST, Route to Pharmacy Electronically, [facility]/pharmacy #[id number], 160, cm, 06/01/19 14:08:00 EST, Height, 88.9, kg, 05/23/19 22:09:00 EST,... Start Date: 06/10/19 Status: Ordered Spiriva Respimat 60 ACT 2.5 mcg/inh inhalation aerosol 2 puffs, Inhalation, Daily, # 1 each, 5 Refills, Maintenance, 04/26/19 10:30:00 EST, [facility]/pharmacy #[id number], 158, cm, 04/26/19 9:58:00 EST, Height, 82, kg, 04/01/19 16:10:00 EST, Dry Weight Start Date: 04/26/19 Status: Ordered tiZANidine 2 mg oral tablet 2 mg, 1, tablet, By Mouth, 2 times a day, PRN, # 30 tablet, Refills 2, Tot. Refills 2, Maintenance,as needed for muscle spasm, 07/25/19 8:41:00 EDT, Route to Pharmacy Electronically, [facility]/pharmacy #[id number], 160, cm, 07/22/19 15:08:00 EDT, Height, [...] MARILIN on CPAP(Confirmed) Active Panic attacks(Confirmed) Active *BHN/BHCP/CP-Harmonyhalima MacdonaldWcanhno-[phone]/Health alf, active care coordination(Confirmed) Active Acute meniscal [...] 5seen on CT Abd 09/18/16 at [facility], pending MRI 6surgically repaired July 2015 Dr. Sg MENDEZ 7urge and stress Diagnosis Diagnosis Type Effective Dates Health Status Clinical Service Informant Asthma exacerbation Discharge Diagnosis 07/28/19 Social History Social History Type Response Tobacco Use: Pt states she q uit smoking 1 week ago. Sex Female
--- OUTSIDE RECORDS SUMMARY | 2023-03-25 08:31 | XMS_ITS | Continuity of Care Document ---
Author Name Unknown Organization [facility] Address [address] [place] [address]- Care Team Providers Care Director Consumer Affairs Name Role Phone Richardson QUIROZ, Leonora Pérez Primary Care Physician [facility] Date[facility]s): 09/10/20 - 10/10/20 [facility] [address] [place] [address]- Allergies, Adverse Reactions, Alerts Substance Reaction Severity [...] 14:12:00 EST, Powder, Route to Pharmacy Electronically, [id number], [facility]/pharmacy #[id number], 162.56, cm, 03/27/20 11:36:00... Start Date: 04/05/20 Status: Ordered albuterol 0.083% inhalation solution 3 mL = 2.5 mg, Inhalation, Every 4 hours, PRN for wheezing, # 100 each, 2 Refills, Maintenance, 08/15/20 10:22:00 EDT, Solution, [facility]/pharmacy #[id number], 163, cm, 08/09/20 [...] 3 Refills, Maintenance, 04/05/20 14:11:00 EST, Tablet, [facility]/pharmacy #[id number], Partial fill upon patient request if the prescription is for a schedule II opioid drug., 162.56, cm, 03/27/20 11:36:00 EST, Heig... Start Date: 04/05/20 Status: Ordered capsaicin 0.025% topical cream 1 application, Topically, 3 times a day, # 45 Gm, 3 Refills, Maintenance, 11/01/19 15:25:00 EDT, Cream, [facility]/pharmacy #[id number], 1 application Topically 3 [...] 1 Refills, Maintenance, 07/30/20 19:49:00 EDT, Cream, [facility]/pharmacy #[id number], 1 application Topically 2 [...] 5 Refills, Maintenance, 03/02/20 11:18:00 EST, Capsule, [facility]/pharmacy #[id number], Partial fill upon patient request. NOT INCREASED DOSE, 163, cm, 12/25/2012:58:00 EDT, Height, 80, kg, 10/29/19 0:29:00 EDT,... Start Date: 03/02/20 Status: Ordered fluticasone 50 mcg/inh nasal spray See Instructions, USE 1 SPRAY IN BOTH NOSTRILS 2 TIMES A DAY, # 16 mL, 1 Refills, Maintenance, [id number], 30, USE 1 SPRAY IN BOTH NOSTRILS [...] not to exceed 3000 mg/day. instructions in salvadorean, # 120 tablet, 2 Refills, Maintenance, 11/01/19 [...] 28 days, on contract at [facility], # 56 tablet, 0 Refills, Acute 10/25/20 15:14:00 EDT, 06/24/21 15:14:00 EDT, [facility]/pharmacy #[id number], Partial fill upon [...]
--- OUTSIDE RECORDS SUMMARY | 2023-03-25 08:31 | XMS_ITS | Continuity of Care Document ---
Author Name Unknown Organization [facility] Address [address] [place] [address]- Care Team Providers Care Lap Welder Name Role Phone Richardson QUIROZ, Leonora Pérez Primary Care Physician [facility] 12/13/19 - 01/12/20 [facility] [address] [place] [address]- [facility] Allergies, Adverse Reactions, Alerts Substance [...] 12:48:00 EST, Powder, Route to Pharmacy Electronically, [id number], [id number], 158, cm, 04/26/19 9:58:00 EST, [...] 1 Refills, Maintenance, 12/15/19 9:12:00 EDT, Cream, [facility]/pharmacy #[id number], [...] 3 Refills, Maintenance, 12/26/19 14:21:00 EDT, Tablet, [facility]/pharmacy #[id number], [...] mL, 11 Refills, Maintenance, 12/26/19 14:22:00 EDT,Solution, [facility]/pharmacy #[id number], increased dose 12/26/19, 163, cm, 12/26/19 13:58:00 EDT, Height, 80, kg, 10/29/19 0:29:00 EDT, Dry Weight Start Date: 12/26/19 Status: Ordered lidocaine 5% topical film 1 patch, Topically, Daily, For chronic radicular back pain, # 30 patch, 5 Refills, Maintenance, 06/27/19 14:37:00 EDT, [facility]/pharmacy #[id number], 1 patch [...] not to exceed 3000 mg/day. instructions in tristanian, # 120 tablet, 2 Refills, Maintenance, 11/01/19 [...] 01/16/20 15:00:00 EDT, 01/11/20 15:00:00 EDT, Capsule, [facility]/pharmacy #[id number], 163, cm, [...] pain, for 28 days, on contract at [facility]., # 56 tablet, 0 Refills, Acute 01/27/20 17:24:00 EDT, 12/30/19 17:24:00 EDT, [id number], Partial fill upon patient request, 163, cm, 12/26/19 13:58:00 EDT,... Start Date: 12/30/19 Stop Date: 01/27/20 Status: Ordered Pen [place], 31 G x 5 mm BD Ultra [...] 05/30/19 18:52:00 EST, Route to Pharmacy Electronically, [facility]/pharmacy #[id number], 160, cm, 05/30/19 18:08:00 [...] each, 5 Refills, Maintenance, 04/26/19 10:30:00 EST, [facility]/pharmacy #[id number], 158, cm, 04/26/19 9:58:00 EST, Height, 82, kg, 04/01/19 16:10:00 EST, Dry Weight Start Date: 04/26/19 Status: Ordered tiZANidine 4 mg oral tablet 4 mg, 1, tablet, By Mouth, Every 8 hours, # 84 tablet, Refills 1, Tot. Refills 1, Maintenance, 11/24/19 8:16:00 EDT, Route to Pharmacy Electronically, [facility] [...]
--- OUTSIDE RECORDS SUMMARY | 2023-03-25 08:31 | XMS_ITS | Continuity of Care Document ---
Author Name Unknown Organization [facility] Address [address] [place] [address]- Care Team Providers Care Organisation And Methods Analyst Name Role Phone Richardson QUIROZ, Leonora Pérez Primary Care Physician [phone] [facility]counter [facility] Date[facility]s): 09/25/20 - 10/25/20 [facility] [address] [place] [address]- Allergies, Adverse Reactions, Alerts Substance Reaction Severity [...] 14:12:00 EST, Powder, Route to Pharmacy Electronically, [id number], [facility]/pharmacy #[id number], 162.56, cm, 03/27/20 11:36:00... Start Date: 04/05/20 Status: Ordered albuterol 0.083% inhalation solution 3 mL = 2.5 mg, Inhalation, Every 4 hours, PRN for wheezing, # 100 each, 2 Refills, Maintenance, 08/15/20 10:22:00 EDT, Solution, [facility]/pharmacy #[id number], 163, cm, 08/09/20 8:45:00 [...] 16 mL, 1 Refills, Maintenance, [id number], 30, USE 1 SPRAY IN BOTH NOSTRILS [...] Refills, Maintenance, 08/27/20 11:00:00 EDT, Tablet, [facility]/pharmacy #[id number], 163, cm, 08/15/20 14:23:00 EDT, Height, 84.8, kg, 06/25/20 20:28:00 EDT, Dry Weight Start Date: 08/27/20 Status: Ordered Lantus 100 u/ml subcutaneous solution = 40 units, Subcutaneous Injection, Daily, # 12 mL, 11 Refills, Maintenance, 05/07/20 13:24:00 EST,Solution, [facility]/pharmacy #[id number], increased dose 12/26/19, 162, cm, 04/21/20 11:33:00 EST, Height, 80, kg, 04/18/20 9:48:00 EST, Dry Weight Start Date: 05/07/20 Status: Ordered lidocaine 5% topical film 1 patch, Topically, Daily, For chronic radicular back pain, # 30 patch, 5 Refills, Maintenance, 10/11/20 8:15:00 EDT, [facility]/pharmacy #[id number], 1 patch Topically Daily,Instr:For chronic radicular back pain, 163, cm, 08/15/20 14:23:00 EDT, Height, 84.8, kg,... Start Date: 10/11/20 Status: Ordered lisinopril 20 mg oral tablet 20 mg, 1, tablet, By Mouth, Daily, # 30 tablet, Refills 11, Tot. Refills 11, Maintenance, 05/07/20 13:30:00 EST, Route to Pharmacy Electronically, [facility]/pharmacy #[id number], 162, cm, 04/21/20 11:33:00 [...] not to exceed 3000 mg/day. instructions in prydeinig, # 120 tablet, 2 Refills, Maintenance, 11/01/19 [...] 12:46:00 EST, Route to Pharmacy Electronically, [facility]/pharmacy #[id number], 162, cm, 05/24/20 9:01:00 EST, Height, 80, kg, 04/18/20 9:48:00 EST, Dry... Start Date: 06/04/20 Status: Ordered Soma 350 mg oral tablet 350 mg, 1, tablet, By Mouth, 3 times a day, # 9 tablet, Refills 0, Tot. Refills 0, Maintenance, 05/04/20 15:46:00 EST, Route to Pharmacy Electronically, [facility]/pharmacy #[id number], Partial fill upon patient request if the prescription is for a schedule II opi... Start Date: 05/04/20 Status: Ordered Spiriva Respimat 60 ACT 2.5 mcg/inh inhalation aerosol 2 puffs, Inhalation, Daily, # 1 each, 11 Refills, Maintenance, 04/05/20 14:17:00 EST, [facility]/pharmacy #[id number], Partial [...] 11:59:00 EDT, Route to Pharmacy Electronically, [facility]/pharmacy #[id number], 163, cm, 08/15/20 14:23:00 [...]
--- OUTSIDE RECORDS SUMMARY | 2023-03-25 08:31 | XMS_ITS | Continuity of Care Document ---
Author Name Unknown Organization [facility] Address [address] [place] [address]- Care Team Providers Care Scratch Finisher Name Role Phone Richardson QUIROZ, Leonora Pérez Primary Care Physician [facility] 06/[facility]/19 - 07/04/19 [facility] [address] [place] [id number]- [facility] Encounter Diagnosis Anxiety(Discharge Diagnosis) - 06/27/19 Health education/counseling(Discharge Diagnosis) - 06/27/19 Asthma(Discharge Diagnosis) - 06/27/19 DM2 (diabetes mellitus, type 2)(Discharge Diagnosis) - 06/27/19 Attending Physician: Richardson QUIROZ, Leonora Pérez Allergies, [...] 12:48:00 EST, Powder, Route to Pharmacy Electronically, [id number], [facility]/pharmacy #[id number], 158, cm, 04/26/19 9:58:00 EST, H... Start Date: 04/27/19 Status: Ordered albuterol 0.083% inhalation solution 3 mL = 2.5 mg, Inhalation, Every 4 hours, PRN for wheezing, # 100 each, 5 Refills, Maintenance, 06/27/19 14:32:00 EDT, Solution, [facility]/pharmacy #[id number], 160, cm, 06/01/19 14:08:00 EST, Height, [...] Maintenance, 05/30/19 19:02:00 EST, Cream, [facility]/pharmacy [...] Refills, Maintenance, 06/27/19 14:37:00 EDT, [facility]/pharmacy #[id number], 1 patch Topically Daily,Instr:For chronic radicular [...] portuguese, # 120 tablet, 2 Refills, Maintenance, 05/04/19 9:35:00 EST, Tablet, [facility]/pharmacy #[id number], 158, cm, 04/28/19 14:51:00 EST, Height, 82, kg, 03/07... Start Date: 05/04/19 Status: Ordered metFORMIN 750 mg oral tablet, extended release 1 tablet = 750 mg, By Mouth, 2 times a day, # 60 tablet, 6 Refills, Maintenance, 05/30/19 18:54:00 EST, ER Tablet, [facility]/pharmacy #[id number], dose increased to BID 05/30/19, 160, [...] pain, for 28 days, on contract at [facility]., # 56 tablet, 0 Refills, Acute 07/08/19 10:04:00 EDT, 06/10/19 10:04:00 EST, [facility]/pharmacy #[id number], Partial fill upon patient request, 160, cm, 06/01/19 14:08:00 EST,... Start Date: 06/10/19 Stop Date: 07/08/19 Status: Ordered prazosin 1 mg oral capsule 1 mg, 1, capsule, By Mouth, Daily at bedtime, for nightmares, # 30 capsule, Refills 0, Tot. Refills0, Maintenance, 05/30/19 18:52:00 EST, Route to Pharmacy Electronically, [facility]/pharmacy #[id number], 160, cm, 05/30/19 18:08:00 EST, Height, [...] [facility]/pharmacy #[id number], 160, cm, 06/01/19 14:08:00 EST, Height, [...] EDT, Route to Pharmacy Electronically, [facility]/pharmacy #[id number], 160, cm, 06/01/19 14:08:00 EST, Height, [...] on CPAP(Confirmed) Active Panic attacks(Confirmed) Active *BHN/BHCP/SARAHarmony [id number]/Health snf, active care coordination(Confirmed) Active Acute meniscal [...] 5seen on CT Abd 09/18/16 at [facility], pending MRI 6surgically repaired July 2015 Dr. Sg MENDEZ 7urge and stress Diagnosis Diagnosis Type Effective Dates Health Status Cl inical Service Informant Anxiety Discharge Diagnosis 06/27/19 Health education/counse ling Discharge Diagnosis 06/27/19 Asthma Discharge Diagnosis 06/27/19 DM2 (diabetes mellitus, type 2) Discharge Diagnosis 06/27/19 Social History Social History Type Response Tobacco Use: Pt states she q uit smoking 1 week ago. Sex Female
--- OUTSIDE RECORDS SUMMARY | 2023-03-25 08:31 | XMS_ITS | Continuity of Care Document ---
Author Name Unknown Organization [facility] Address [address] [place] [id number]- Care Team Providers Care Condominium Property Manager Name Role Phone Richardson QUIROZ, Leonora Pérez Primary Care Physician [phone] [facility] Date(s): 02/02/21 - 02/04/21 [facility] [address] [place] [address]- Encounter Diagnosis Hypotension(Final) - 02/02/21 CONNIE (acute kidney injury)(Final) - 02/02/21 Discharge Disposition: A-D/C Home Attending Physician: Juan José GERARDO, Zion Craig Admitting Physician: Krzysztof GERARDO, Omero Valente Referring Physician: Not on Staff, Referring MD [...] 19:30:00 EDT, Route to Pharmacy Electronically, [facility]/pharmacy #[id number], Partial fill upon patient request if the prescription is for a schedule II o... Start Date: 01/16/21 Status: Ordered Advair Diskus 500 mcg-50 mcg inhalation powder 1, puffs, Inhalation, 2 times a day, [id number], # 1 each, Refills 11, Tot. Refills 11, Maintenance, 04/05/20 14:12:00 EST, Powder, Route to Pharmacy Electronically, [id number], [facility]/pharmacy #[id number], 162.56, cm, 03/27/20 11:36:00... Start Date: 04/05/20 Status: Ordered albuterol 0.083% inhalation solution 3 mL = 2.5 mg, Inhalation, Every 4 hours, PRN for wheezing, # 100 each, 2 Refills, Maintenance, 08/15/20 10:22:00 EDT, Solution, [facility]/pharmacy #[id number], 163, cm, 08/09/20 8:45:00 EDT, Height, 84.8, kg, 06/25/20 20:28:00 EDT, Dry Weight Start Date: 08/15/20 Status: Ordered amitriptyline 75 mg oral tablet 1 tablet = 75 mg, By Mouth, Daily at bedtime, # 30 tablet, 5 Refills, Maintenance, 08/16/20 11:58:00 EDT, Tablet, [facility]/pharmacy #[id number], Partial fill upon patient request if the prescription is for a schedule II opioid drug. INSTEAD OF 50mg SCRIPT PLEASE... Start Date: 08/16/20 Status: Ordered atorvastatin 20 mg oral tablet 1 tablet = 20 mg, By Mouth, Daily, # 90 tablet, 3 Refills, Maintenance, 04/05/20 14:11:00 EST, Tablet, [facility]/pharmacy #[id number], Partial fill upon patient request if the prescription is for a schedule II opioid drug., 162.56, cm, 03/27/20 11:36:00 EST, Heig... Start Date: 04/05/20 Status: Ordered capsaicin 0.025% topical cream 1 application, Topically, 3 times a day, # 45 Gm, 3 Refills, Maintenance, 11/01/19 15:25:00 EDT, Cream, [facility]/pharmacy #[id number], 1 application Topically 3 [...] Refills, Maintenance, 12/05/20 12:42:00 EDT, Cream, [facility]/pharmacy #[id number], [...] Refills, Maintenance, 03/02/20 11:18:00 EST, Capsule, [facility]/pharmacy #[id number], Partial fill upon patient request. NOT INCREASED DOSE, 163, cm, 12/25/2012:58:00 EDT, Height, 80, kg, 10/29/19 0:29:00 EDT,... Start Date: 03/02/20 Status: Ordered estradiol 0.1 mg/g vaginal cream = 1 Gm, Vaginally, Daily at bedtime, # 30 Gm, 11 Refills, Maintenance, 12/31/20 15:58:00 EDT, [facility]/pharmacy #[id number], Partial fill upon patient request if the prescription is for a schedule II opioid drug., 165, cm, 12/31/20 14:56:00 EDT, Height, 87.6, kg... Start Date: 12/31/20 Status: Ordered fluticasone 50 mcg/inh nasal spray See Instructions, USE 1 SPRAY IN BOTH NOSTRILS 2 TIMES A DAY, # 16 mL, 1 Refills, Maintenance, [id number], 30, USE 1 SPRAY IN BOTH NOSTRILS 2 TIMES A DAY, 163, cm, 08/15/20 14:23:00 EDT, Height,84.8, kg, 06/25/20 20:28:00 EDT, Dry Weight Start Date: 09/07/20 Status: Ordered Januvia 100 mg oral tablet 1 tablet = 100 mg, By Mouth, Daily, # 30 tablet, 2 Refills, Maintenance, 10/29/20 14:07:00 EDT, Tablet, [facility]/pharmacy #[id number], 163, cm, 08/15/20 14:23:00 EDT, Height, 84.8, kg, 06/25/20 20:28:00 EDT, Dry Weight Start Date: 10/29/20 Status: Ordered Lantus 100 u/ml subcutaneous solution = 40 units, Subcutaneous Injection, Daily, # 12 mL, 11 Refills, Maintenance, 05/07/20 13:24:00 EST,Solution, [facility]/pharmacy #[id number], increased dose 12/26/19, 162, [...] oral tablet 20 mg, Tablet, By Mouth, 02/04/21 9:00:00 EDT Start Date: 02/04/21 Stop Date: 02/04/21 Status: Completed loratadine 10 mg oral capsule 1 capsule = 10 mg, By Mouth, Daily, # 40 capsule, 0 Refills, Maintenance, 08/15/20 15:59:00 EDT, Capsule, [facility]/pharmacy #[id number], Partial fill upon patient request if the prescription is for a schedule II opioid drug., 163, cm, 08/15/20 14:23:00 EDT, Heig... Start Date: 08/15/20 Status: Ordered mirabegron 25 mg oral tablet, extended release 1 tablet = 25 mg, By Mouth, Daily, do not crush or chew, # 30 tablet, 11 Refills, Maintenance, 12/31/20 15:58:00 EDT, ER Tablet, [facility]/pharmacy #[id number], Partial fill upon patient [...] Acute 02/28/21 14:14:00 EST, 01/31/21 14:14:00 EDT, [facility]., CANCEL OXYCODONE- DO NOT FILL. PRESCRIBING MORPHINE INSTEAD. ON CONTRACT AT [facility], 165, cm,... Start Date: 01/31/21 Stop Date: 02/28/21 Status: Ordered MorPHINE Immediate Release Tablet 15 mg, Tablet, By Mouth, Every 6 hours, PRN for Pain , Severe, Routine, 02/03/21 9:46:00 EDT Start Date: 02/03/21 Stop Date: 02/10/21 Status: Ordered nabumetone 750 mg oral tablet 1 tablet = 750 mg, By Mouth, 2 times a day, Do not take with Naproxen, # 60 tablet, 1 Refills, Maintenance, 01/31/21 14:16:00 EDT, [facility] upon patient request if the prescription is for a schedule II opioid drJose. Start Date: 01/31/21 Status: Ordered omeprazole 40 mg oral enteric coated capsule 1 capsule = 40 mg, By Mouth, Daily, PRN Dyspepsia, # 90 capsule, 0 Refills, Maintenance, 01/11/21 13:46:00 EDT, EC Capsule, [facility]/pharmacy #[id number], 165, cm, 12/31/20 14:56:00 EDT, Height, 87.6, kg, 12/31/20 14:56:00 EDT, Dry Weight Start Date: 01/11/21 Status: Ordered Senna 8.6 mg oral tablet 8.6 mg, 1, tablet, By Mouth, Daily at bedtime, # 100 tablet, Refills 11, Tot. Refills 11, Maintenance, 10/30/20 11:37:00 EDT, Route to Pharmacy Electronically, [facility]/pharmacy #[id number], 163, cm, 08/15/20 14:23:00 EDT, Height, 84.8, kg, 06/25/20 20:28:00 EDT... Start Date: 10/30/20 Status: Ordered Spiriva Respimat 60 ACT 2.5 mcg/inh inhalation aerosol 2 puffs, Inhalation, Daily, # 1 each, 11 Refills, Maintenance, 04/05/20 14:17:00 EST, [facility]/pharmacy #[id number], Partial fill upon patient [...] 12:45:00 EDT, Route to Pharmacy Electronically, [facility]/pharmacy #[id number], 165, cm, 11/22/20 8:40:00 EDT, Height, 84.8, kg, 06/25/20 20:28:00... Start Date: 12/05/20 Stop Date: 01/30/21 Status: Ordered Trulicity Pen 0.75 mg/0.5 mL subcutaneous solution 0.5 mL = 0.75 mg, Subcutaneous Injection, Every week, rotate injection sites, # 2 mL, 5 Refills, Maintenance, 10/31/20 15:27:00 EDT, Solution, [facility]/pharmacy #[id number], Partial fill upon patient request ifthe prescription [...] [address] Abd 09/18/[address] [facility], pending MRI 3urge and stress Results Orders for Microbiology Reports Name Date Blood Culture 02/02/21 Blood Culture #2 02/02/21 Microbiology Reports TEST:Blood Culture, Second Order STATUS:Unauthenticated BODY SITE: SOURCE:Blood COLLECTED DATE/TIME:02/02/21 8:32 AM Blood Culture, Second Order SPECIMEN DESCRIPTION : BLOOD RT HAND SPECIAL REQUESTS : NONE CULTURE : NO GROWTH AFTER 48 HOURS REPORT STATUS : PRELIMINARY REPORT TEST:Blood Culture STATUS:Unauthenticated BODY SITE: SOURCE:Blood COLLECTED DATE/TIME:02/02/21 7:39 AM Blood Culture SPECIMEN DESCRIPTION : BLOOD RARM SPECIAL REQUESTS : NONE CULTURE : NO GROWTH AFTER 48 HOURS REPORT STATUS : PRELIMINARY REPORT Radiology Reports * Exam Date Time Procedure Performing Provider Status 02/02/21 12:44 AM Chest Portable Heather Montes; Au th (Verified) Notes: (Chest Portable) Reason For Exam: Shortness of Breath RESULT: Chest Portable AP semiupright portable chest dated February 02, 2021 at 0022 hours. Comparison films are from May 04, 2020. HISTORY: Shortness of breath. FINDINGS: The cardiac silhouette is within normal limits for size. Increased attenuation is presentat the lung bases right greater than left consistent with atelectasis or pneumonia and associated pleural effusion. There is a deformity of the right sixth rib consistent with prior old trauma. IMPRESSION: Bibasilar atelectasis or pneumonia with associated pleural effusion right greater than left. Examination [id number]. Thank you for allowing me to participate in the care of this patient. WSN: [id number] Ordering Physician: Ji House Dictated By: Robert Lund MD Dictated Date/Time: 02/02/21 8:15 am Reviewed By: Robert Lund MD Signed By: Robert Lund MD Signed Date/Time: 02/02/21 8:15 am Transcribed By: WILVER Transcribed Date/Time: 02/02/21 8:15 am Vital Signs Most recent to oldest [Reference Range]: 1 2 3 Height 155 cm (02/04/21 11:46 AM) 155 cm (02/04/21 10:11 AM) 155 cm (02/04/21 6:13 AM) Weight 90.9 kg (02/02/21 5:59 AM) Oxygen Saturation [94-100 %] 95 % (02/04/21 11:46 AM) 96 % (02/04/21 6:13 AM) 95 % (02/03/21 7:56 PM) Pulse Rate [55-90 bpm] 83 bpm (02/04/21 11:46 AM) 68 bpm (02/04/21 6:13 AM) 78 bpm (02/03/21 7:56 PM) Body Mass Index [18.5-24.99] 37.84 *>HHI* (02/02/21 5:59 AM) Blood Pressure [90-138/55-84 mm Hg] 106/53mm Hg (02/04/21 11:46 AM) 117/68mm Hg (02/04/21 11:06 AM) 133/89mm Hg (02/04/21 6:13 AM) Respiratory Rate [16-30 br/min] 19 br/min (02/04/21 1:40 PM) 16 br/min (02/04/21 11:46 AM) 18 br/min (02/04/21 6:34 AM) Temperature [96.8-100.4 DegF] 98.2 DegF (02/04/21 11:46 AM) 97.3 DegF (02/04/21 6:13 AM) 97.4 DegF (02/03/21 7:56 PM) Mode of Delivery (Oxygen) Room air (02/04/21 11:46 AM) Room air (02/03/21 7:56 PM) Room air (02/03/21 6:00 PM) Blood pressure sites Arm, right (02/04/21 11:46 AM) Arm, right (02/04/21 6:13 AM) Arm, right (02/03/21 7:56 PM) Temperature Route Oral (02/04/21 11:46 AM) Oral (02/04/21 6:13 AM) Oral (02/03/21 7:56 PM) Dry Weight 90.9 kg (02/02/21 5:59 AM) Social History Social History Type Response Smoking Status Current every day kaitlin valle; Type: Cigarettes; Tobacco use times per day: 1/2 ppd; entered on: 12/24/17 Sex
--- OUTSIDE RECORDS SUMMARY | 2023-03-25 08:31 | XMS_ITS | Continuity of Care Document ---
Author Name Unknown Organization [facility] Address [address] [place] [address]- Care Team Providers Care Online Advertising Director Name Role Phone Richardson STATION ATTENDANT, Leonora Pérez Primary Care Physician [facility] Date[facility]s): 11/27/20 - 12/27/20 [facility] [address] [place] [address]- Allergies, Adverse Reactions, Alerts Substance Reaction Severity [...] 14:12:00 EST, Powder, Route to Pharmacy Electronically, [id number], [id number], 162.56, cm, 03/27/20 11:36:00... Start Date: 04/05/20 Status: Ordered albuterol 0.083% inhalation solution 3 mL = 2.5 mg, Inhalation, Every 4 hours, PRN for wheezing, # 100 each, 2 Refills, Maintenance, 08/15/20 10:22:00 EDT, Solution, [facility]/pharmacy #[id number], 163, cm, 08/09/20 8:45:00 EDT, Height, 84.8, kg, 06/25/20 20:28:00 EDT, Dry Weight Start Date: 08/15/20 Status: Ordered amitriptyline 75 mg oral tablet 1 tablet = 75 mg, By Mouth, Daily at bedtime, # 30 tablet, 5 Refills, Maintenance, 08/16/20 11:58:00 EDT, Tablet, [facility]/pharmacy [...] 1 Refills, Maintenance, 12/05/20 12:42:00 EDT, Cream, [facility]/pharmacy [...] 16 mL, 1 Refills, Maintenance, [facility], 30, USE 1 SPRAY IN BOTH NOSTRILS 2 TIMES A DAY, 163, cm, 08/15/20 14:23:00 EDT, Height,84.8, kg, 06/25/20 20:28:00 EDT, Dry Weight Start Date: 09/07/20 Status: Ordered hydrochlorothiazide 12.5 mg oral tablet 1 tablet = 12.5 mg, By Mouth, Daily, # 90 tablet, 3 Refills, Maintenance, 01/19/20 10:28:00 EDT, Tablet, [facility]/pharmacy #[id number], 163, cm, 12/26/19 13:58:00 EDT, Height, 80, kg, 10/29/19 0:29:00 EDT, Dry Weight Start Date: 01/19/20 Status: Ordered Januvia 100 mg oral tablet 1 tablet = 100 mg, By Mouth, Daily, # 30 tablet, 2 Refills, Maintenance, 10/29/20 14:07:00 EDT, Tablet, [facility]/pharmacy #[id number], 163, cm, 08/15/20 14:23:00 EDT, [...] 0 Refills, Maintenance, 08/15/20 15:59:00 EDT, Capsule, [facility]/pharmacy #[id number], [...] 0 Refills, Maintenance, 08/13/20 10:34:00 EDT, ECCapsule, [facility]/pharmacy #[id number], 163, cm, 08/09/20 8:45:00 EDT, [...] 12/05/20 12:46:00 EDT, [facility] to Pharmacy Electronically, [facility] 10/30/20 11:37:00 EDT, Route to Pharmacy Electronically, [facility]/pharmacy #[id number], 163, cm, 08/15/20 14:23:00 EDT, [...] 12/05/20 12:45:00 EDT, Route to Pharmacy Electronically, [facility]/pharmacy #[id number], 165, cm, 11/22/20 8:40:00 EDT, Height, 84.8, kg, 06/25/20 20:28:00... Start Date: 12/05/20 Stop Date: 01/30/21 Status: Ordered Trulicity Pen 0.75 mg/0.5 mL subcutaneous solution 0.5 mL = 0.75 mg, Subcutaneous Injection, Every week, rotate injection sites, # 2 mL, 5 Refills, Maintenance, 10/31/20 15:27:00 EDT, Solution, [facility]/pharmacy #[id number], Partial [...] [address] Abd 09/18/16 at [facility], pending MRI 3urge and stress Social History Social History Type Response Tobacco Use: Pt states she q uit smoking 1 week ago. Sex
--- OUTSIDE RECORDS SUMMARY | 2023-03-25 08:31 | XMS_ITS | Continuity of Care Document ---
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 Name Role Phone Richardson QUIROZ, Leonora Pérez Primary Care Physician [phone] [facility]counter [facility] Date[facility]s): 11/10/19 - 12/10/19 [facility] [address] [place] [address]- [facility] Allergies, Adverse Reactions, Alerts Substance Reaction Severity [...] 12:48:00 EST, Powder, Route to Pharmacy Electronically, [id number], [id number], 158, cm, 04/26/19 9:58:00 EST, [...] tablet, 5 Refills, Maintenance, 10/06/19 7:45:00EDT, Tablet, [facility]/pharmacy #0488, 160, cm, 09/28/19 8:58:00 EDT, Height, 86.8, kg, 07/22/19 15:13:00EDT, Dry Weight Start Date: 10/06/19 Status: Ordered atorvastatin 20 mg oral tablet 1 tablet = 20 mg, By Mouth, Daily, Maintenance, 05/24/19 9:12:00 EST, Tablet Start Date: 05/24/19 Status: Ordered capsaicin 0.025% topical cream 1 application, Topically, 3 times a day, # 45 Gm, 3 Refills, Maintenance, 11/01/19 15:25:00 EDT, Cream, [facility]/pharmacy #[id number], 1 application Topically 3 times a day, 163, cm, 11/01/19 14:40:00 EDT, Height, 80, kg, 10/29/19 0:29:00 EDT, Dry Weight Start Date: 11/01/19 Status: Ordered cetirizine 10 mg oral tablet 1 tablet = 10 mg, By Mouth, Daily, # 30 tablet, 5 Refills, Maintenance, 04/19/19 15:40:00 EST, Tablet, [facility]/pharmacy #0488, 158, cm, 04/04/19 [...] 3 Refills, Maintenance, 09/02/19 10:23:00 EDT, Tablet, [facility]/pharmacy #0488, PLEASE CANCEL LISINOPRIL, 160, cm, [...] 5 Refills, Maintenance, 04/28/19 16:05:00 EST, Tablet, [facility]/pharmacy #0488, 158, cm, 04/28/19 [...] patch, 5 Refills, Maintenance, 06/27/19 14:37:00 EDT, [facility]/pharmacy #[id number], 1 patch Topically [...] not to exceed 3000 mg/day. instructions in urdu, # 120 tablet, 2 Refills, Maintenance, 11/01/19 15:24:00 EDT, Tablet, [facility]/pharmacy #0488, 163, cm, 11/01/19 14:40:00 EDT, Height, 80, kg, 07/... Start Date: 11/01/19 Status: Ordered metFORMIN 1000 mg oral tablet 1 tablet = 1,000 mg, By Mouth, 2 times a day, # 60 tablet, 2 Refills, Maintenance, 11/09/19 16:12:00 EDT, Tablet, [facility]/pharmacy #0488, 163, cm, 11/01/19 [...] 2Refills, Maintenance, 10/06/19 7:45:00 EDT, EC Capsule, [facility]/pharmacy #0488, cancel Ranitidine, 160,cm, 09/28/19 8:58:00 EDT, Height, 86.8, kg, ... Start Date: 10/06/19 Status: Ordered Oxycodone By Mouth, 0 Refills, Maintenance, 12/07/19 15:23:00 EDT, Partial fill upon patient request Start Date: 12/07/19 Status: Ordered Pen [place], 31 G x 5 mm BD Ultra [...] 05/30/19 18:52:00 EST, Route to Pharmacy Electronically, [facility]/pharmacy #[id number], 160, cm, 05/30/19 18:08:00 EST, [...] 06/10/19 16:12:00 EST, Route to Pharmacy Electronically, [facility]/pharmacy #[id number], 160, cm, 06/01/19 14:08:00 EST, Height, 88.9, kg, 05/23/19 22:09:00 EST,... Start Date: 06/10/19 Status: Ordered Spiriva Respimat 60 ACT 2.5 mcg/inh inhalation aerosol 2 puffs, Inhalation, Daily, # 1 each, 5 Refills, Maintenance, 04/26/19 10:30:00 EST, [facility]/pharmacy #0488, 158, cm, 04/26/19 9:58:00 EST, Height, 82, kg, 04/01/19 16:10:00 EST, Dry Weight Start Date: 04/26/19 Status: Ordered tiZANidine 4 mg oral tablet 4 mg, 1, tablet, By Mouth, Every 8 hours, # 84 tablet, Refills 1, Tot. Refills 1, Maintenance, 11/24/19 8:16:00 EDT, Route to Pharmacy Electronically, [facility]/pharmacy #[id number], 163, cm, 11/01/19 [...] [address] Abd 09/18/16 at [facility], pending MRI 6surgically repaired July 2015 Dr. Sg MENDEZ 7urge and stress Social History Social History Type Response Tobacco Use: Pt states she q uit smoking 1 week ago. Sex Female
--- OUTSIDE RECORDS SUMMARY | 2023-03-25 08:31 | XMS_ITS | Continuity of Care Document ---
Author Name Unknown Organization [facility] Address [address] [place] [address]- Care Team Providers Care Button Station Worker Name Role Phone Richardson PROJECT DEVELOPMENT MANAGER, Leonora Pérez Primary Care Physician [phone] [facility] Date[facility]s): 08/28/20 - 09/27/20 [facility] [address] [place] [address]- Allergies, Adverse Reactions, Alerts Substance Reaction Severity [...] 14:12:00 EST, Powder, Route to Pharmacy Electronically, [id number], [facility]/pharmacy #0488, 162.56, cm, [...] 1 Refills, Maintenance, 07/30/20 19:49:00 EDT, Cream, [facility]/pharmacy #0488, 1 application Topically 2 [...] 16 mL, 1 Refills, Maintenance, [facility], 30, USE 1 SPRAY IN BOTH NOSTRILS [...] 2 Refills, Maintenance, 08/27/20 11:00:00 EDT, Tablet, [facility]/pharmacy #0488, [...] 05/07/20 13:30:00 EST, Route to Pharmacy Electronically, [facility]/pharmacy #0488, 162, cm, 04/21/20 11:33:00 [...] 2 Refills, Maintenance, 11/01/19 15:24:00 EDT, Tablet, [facility]/pharmacy #0488, 163, cm, 11/01/19 14:40:00 [...] 2 Refills, Maintenance, 04/05/20 14:08:00 EST, Tablet, [facility]/pharmacy #0488, Partial fill upon patient request if the prescription is for a schedule II opioid drug., 162.56, cm, ... Start Date: 04/05/20 Status: Ordered omeprazole 40 mg oral enteric coated capsule 1 capsule = 40 mg, By Mouth, Daily, # 90 capsule, 0 Refills, Maintenance, 08/13/20 10:34:00 EDT, ECCapsule, [facility]/pharmacy #[id number], 163, cm, [...] days, on contract at [facility], # 56 tablet, 0 Refills, Acute [...] 06/04/20 12:46:00 EST, Route to Pharmacy Electronically, [facility]/pharmacy #0488, 162, cm, 05/24/20 9:01:00 EST, Height, 80, kg, 04/18/20 9:48:00 EST, Dry... Start Date: 06/04/20 Status: Ordered Soma 350 mg oral tablet 350 mg, 1, tablet, By Mouth, 3 times a day, # 9 tablet, Refills 0, Tot. Refills 0, Maintenance, 05/04/20 15:46:00 EST, Route to Pharmacy Electronically, [facility]/pharmacy #[id number], Partial fill [...] 08/16/20 11:59:00 EDT, [facility] Electron[facility], [facility]
--- OUTSIDE RECORDS SUMMARY | 2023-03-25 08:31 | XMS_ITS | Continuity of Care Document ---
Author Name Unknown Organization [facility] Address [address] [place] [address]- Care Team Providers Care Supervisor Curing Room Name Role Phone Richardson QUIROZ, Leonora Pérez Primary Care Physician Encounter [facility] ACCT R [id number] Date(s): 07/05/20 - 07/12/20 [facility] [address] [place] [address]- Attending Physician: Chalo GERARDO, Eloy Referring Physician: Richardson QUIROZ, Leonora Pérez Allergies, Adverse Reactions, Alerts Substance Reaction Severity Status gabapentin swelling Active Lyrica dysphagia Active SEROquel body swelling - all over Act tony MetFORMIN Hydrochloride ER black tarry stool Active Immunizations Given and Recorded Vaccine Date Status Refusal Reason influenza virus vaccine, inactivated 1 04/19/20 Gi toino influenza virus vaccine, inactivated 03/12/19 Give n [...] 14:12:00 EST, Powder, Route to Pharmacy Electronically, [id number], [facility]/pharmacy #[id number], 162.56, cm, 03/27/20 11:36:00... Start Date: 04/05/20 Status: Ordered albuterol 0.083% inhalation solution 3 mL = 2.5 mg, Inhalation, Every 4 hours, PRN for wheezing, # 100 each, 5 Refills, Maintenance, 06/27/19 14:32:00 EDT, Solution, [facility]/pharmacy #[id number], 160, cm, 06/01/19 14:08:00 EST, [...] 1 Refills, Maintenance, 06/04/20 12:46:00 EST, Cream, [facility]/pharmacy #[id number], 1 application [...] Refills, Maintenance, 03/02/20 11:18:00 EST, Capsule, [facility]/pharmacy #[id number], Partial [...] 11 Refills, Maintenance, 05/07/20 13:24:00 EST,Solution, [facility]/pharmacy #[id number], increased dose 12/26/19, 162, cm, [...] 13:30:00 EST, Route to Pharmacy Electronically, [facility]/pharmacy #[id number], 162, cm, 04/21/20 11:33:00 EST, Height, 80, kg, 04/18/20 9:48:00 EST, Dry Weight Start Date: 05/07/20 Status: Ordered Mapap 325 mg oral tablet 2 tablet = 650 mg, By Mouth, Every 4 hours, PRN for pain, not to exceed 3000 mg/day. instructions in [place] [facility], # 120 tablet, 2 Refills, Maintenance, 11/01/19 15:24:00 EDT, Tablet, [facility]/pharmacy #[id number], 163, cm, 11/01/19 14:40:00 EDT, [...] Refills, Maintenance, 04/05/20 14:08:00 EST, Tablet, [facility]/pharmacy #[id number], Partial fill upon patient request if the prescription is for a schedule II opioid drug., 162.56, cm, ... Start Date: 04/05/20 Status: Ordered omeprazole 40 mg oral enteric coated capsule 1 capsule = 40 mg, By Mouth, Daily, # 30 capsule, 3 Refills, Maintenance, 05/24/20 9:40:00 EST, EC Capsule, [facility]/pharmacy #[id number], note dose increase, 162, cm, [...] for 28 days, on contract at [facility], # 56 tablet, 0 Refills, Acute 07/30/20 8:00:00 EDT, 07/02/20 8:00:00 EDT, [facility]/pharmacy #[id number], Partial fill upon patient request if the prescription is for a schedule II opioi... Start Date: 07/02/20 Stop Date: 07/30/20 Status: Ordered Senna 8.6 mg oral tablet 8.6 mg, 1, tablet, By Mouth, Daily at bedtime, # 100 tablet, Refills 2, Tot. Refills 2, Maintenance, 06/04/20 12:46:00 EST, Route to Pharmacy Electronically, [facility]/pharmacy #[id number], 162, cm, 05/24/20 9:01:00 EST, Height, 80, kg, 04/18/20 9:48:00 EST, Dry... Start Date: 06/04/20 Status: Ordered Soma 350 mg oral tablet 350 mg, 1, tablet, By Mouth, 3 times a day, # 9 tablet, Refills 0, Tot. Refills 0, Maintenance, 05/04/20 15:46:00 EST, Route to Pharmacy Electronically, [facility]/pharmacy #[id number], Partial fill upon patient request if the prescription is for a schedule II opi... Start Date: 05/04/20 Status: Ordered Spiriva Respimat 60 ACT 2.5 mcg/inh inhalation aerosol 2 puffs, Inhalation, Daily, # 1 each, 11 Refills, Maintenance, 04/05/20 14:17:00 EST, [facility]/pharmacy #[id number], Partial fill upon [...] 11:26:00 EST, Route to Pharmacy Electronically, [facility]/pharmacy #[id number], 162, cm, 04/21/20 11:33:00 EST, [...] [place], pending MRI 3urge and stress Vital Signs Most recent to oldest [Reference Range]: 1 Height 163 cm (07/05/20 9:29 AM) Oxygen Saturation [94-100 %] 99 % (07/05/20 9:29 AM) Pulse Rate [55-90 bpm] 93 bpm *H* (07/05/20 9:29 AM) Blood Pressure [90-138/55-84 mm Hg] 154/ 104mm Hg *H* (07/05/20 9:29 AM) Respiratory Rate [16-30 br/min] 20 br/mi n (07/05/20 9:29 AM) Temperature [96.8-100.4 DegF] 97.3 DegF (07/05/20 9:29 AM) Mode of Delivery (Oxygen) Room air (07/05/20 9:29 AM) Blood pressure sites Arm, left (07/05/20 9:29 AM) Temperature Route Temporal (07/05/20 9:29 AM) Social History Social History Type Response Tobacco Use: Pt states she q uit smoking 1 week ago. Sex
--- OUTSIDE RECORDS SUMMARY | 2023-03-25 08:31 | XMS_ITS | Continuity of Care Document ---
Author Name Unknown Organization [facility] Address [address] [place] [address]- Care Team Providers Care Adaptive Physical Education Specialist Name Role Phone Richardson NURSE MONITORING, Leonora Pérez Primary Care Physician [phone] [place] [facility] [place]s): 05/26/22 - 06/25/22 [facility] [address] [place] [address]- Allergies, Adverse Reactions, Alerts Substance Reaction Severity Status morphine Active gabapentin swelling Active Lyrica dysphagia Active SEROquel body swelling - all over Act tony MetFORMIN Hydrochloride ER black tarry stool Active Immunizations Given and Recorded Vaccine Date Status Refusal Reason [id number] 12y+ bivalent booster vax 01/30/22 Given influenza virus vaccine, inactivated 01/30/22 Give n influenza virus vaccine, inactivated 02/04/21 Give n influenza virus vaccine, inactivated 1 04/19/20 Gi tonio influenza virus vaccine, inactivated 03/12/19 Give n influenza virus vaccine, inactivated 01/19/18 Give n influenza virus vaccine, inactivated 02/16/17 Give n pneumococcal 20-valent conjugate vaccine 12/26/21 Given SARS-CoV-2 mRNA ([id number]) vax 05/14/21 Given SARS-CoV-2 (COVID-19) mRNA BNT-162b2 [...] 10/22/21 9:23:00 EDT, Route to Pharmacy Electronically, [facility], Partial fill uponpatient request if the prescription [...] tablet, 5 Refills, Maintenance, 04/03/22 11:25:00 EST, [facility], 163, cm, 02/11/22 19:19:00 EST, Height, 83, kg, 02/11/22 19:19:00 EST, Dry Weight Start Date: 04/03/22 Status: Ordered amitriptyline 25 mg oral tablet 25 mg, 1, tablet, By Mouth, Daily at bedtime, # 30 tablet, Refills 2, Tot. Refills 2, Maintenance, 08/30/21 12:06:00 EDT, Route to Pharmacy Electronically, [facility], Partial fill upon patient request if the prescription is for a sche... Start Date: 08/30/21 Status: Ordered amLODIPine 5 mg oral tablet 5 mg, 1, tablet, By Mouth, Daily, # 90 tablet, Refills 3, Tot. Refills 3, Maintenance, 04/29/22 11:56:00 EST, Route to Pharmacy Electronically, [facility], Partial fill upon patient request if the prescription is for a schedule II opio... Start Date: 04/29/22 Status: Ordered cholecalciferol 5000 intl units oral capsule 1 capsule = 125 mcg, By Mouth, Daily, with food, # 100 capsule, 2 Refills, Maintenance, 02/11/21 11:17:00 EST, Capsule, [facility]/pharmacy #[id number], Partial fill [...] 11 Refills, Maintenance, 02/21/22 10:35:00 EST, [facility] Partial fill upon patient request if the prescription is for a schedule II opioid drug., 2 tablet By... Start Date: 02/21/22 Status: Ordered duloxetine 60 mg oral enteric coated capsule 2 capsule = 120 mg, By Mouth, Daily, # 60 capsule, 5 Refills, Maintenance, 05/26/22 17:03:00 EST, Capsule, [facility] Partial fill upon patient request. NOT INCREASED DOSE. Please cancel all other Duloxetine scripts, 163, cm, 05/19/22... Start Date: 05/26/22 Status: Ordered empagliflozin 10 mg oral tablet 1 tablet = 10 mg, By Mouth, Daily in AM, # 30 tablet, 5 Refills, Maintenance, 02/20/22 12:04:00 EST, Tablet, [facility] Partial fill upon patient request if the prescription is for aschedule II opioid drug., 163, cm, 02/11/22 19:19:0... Start Date: 02/20/22 Status: Ordered fluticasone 50 mcg/inh nasal spray See Instructions, USE 1 SPRAY IN BOTH NOSTRILS 2 TIMES A DAY, # 16 mL, 1 Refills, 07/08/21 9:44:00 EDT, [facility] 30, USE 1 SPRAY IN BOTH NOSTRILS 2 TIMES A DAY, 162.5, cm, :49:00 EDT, Height, 85.8, kg, 06/04/21 10:03:00 ES... Start Date: 07/08/21 Status: Ordered ibuprofen 800 mg oral tablet 1, tablet, By Mouth, 3 times a day, PRN, # 90 tablet, Refills 1, Tot. Refills 1, Maintenance, NEEDED FOR PAIN, 06/23/22 9:42:00 EDT, Route to Pharmacy Electronically, [facility], 163, cm, 05/19/22 15:33:00 EST, Height, 83, kg, 02/11... Start Date: 06/23/22 Status: Ordered Januvia 100 mg oral tablet 1 tablet = 100 mg, By Mouth, Daily, # 90 tablet, 3 Refills, Maintenance, 06/18/21 21:04:00 EDT, Tablet, [facility] 162.5, cm, 06/17/21 13:04:00 EDT, Height, 85.8, kg, 06/04/21 10:03:00 EST, Dry Weight Start Date: 06/18/21 Status: Ordered Lantus 100 u/ml subcutaneous solution = 50 units, Subcutaneous Injection, Daily, # 15 mL, 2 Refills, Maintenance, 01/06/22 12:07:00 EDT, Solution, [facility] ;, 163, cm, 01/03/22 11:20:00 EDT, Height, 84, kg, 01/02/22 19:36:00 EDT, Dry Weight Start Date: 01/06/22 Status: Ordered lidocaine 5% topical film 1 patch, Topically, Daily, PRN Pain , Mild, remove after 12 hours, # 13 each, 5 Refills, Maintenance, 04/29/22 11:56:00 EST, Film, [facility], Partial fill upon patient request if theprescription is for a schedule II opioid drug., 1 p... Start Date: 04/29/22 Status: Ordered lisinopril 20 mg oral tablet 20 mg, 1, tablet, By Mouth, Daily, # 90 tablet, Refills 3, Tot. Refills 3, Maintenance, 08/28/21 9:07:00 EDT, Route to Pharmacy Electronically, [facility], 162, cm, 08/22/21 9:46:00 EDT, Height, 86, kg, 07/23/21 0:58:00 EDT, Dry Weight Start Date: 08/28/21 Status: Ordered Melatonin 10 mg oral tablet 1 tablet = 10 mg, By Mouth, Daily at bedtime, # 30 each, 11 Refills, Maintenance, 04/29/22 11:56:00EST, [facility], Partial fill upon patient request if the [...] PRN NEEDED, # 30 capsule, 2 Refills, [facility], 162, cm, 09/06/21 13:04:00 EDT, Height, 86, kg, 07/23/21 0:58:00 EDT, Dry Weight Start Date: 10/02/21 Status: Ordered oxyCODONE 15 mg oral tablet 1 tablet = 15 mg, By Mouth, 3 times a day, on contract at [facility], # 84 tablet, 0 Refills, Maintenance, 06/24/22 13:16:00 EDT, [facility], Partial fill upon patient request if the [...] 07/08/21 9:39:00 EDT, Route to Pharmacy Electronically, [facility], 162.5, cm, 07/08/21 8:49:00 EDT, Height, 85.8, kg, 06/04/21 10:0... Start Date: 07/08/21 Status: Ordered tiZANidine 4 mg oral capsule See Instructions, PRN Pain , Severe, take as little as possible to control pain not to exceed 3 doses/day, # 60 capsule, 0 Refills, Maintenance, 06/24/22 13:18:00 EDT, [facility], 163, cm, 05/19/22 15:33:00 EST, Height, 83, kg, ... Start Date: 06/24/22 Status: Ordered Trulicity Pen 3 mg/0.5 mL subcutaneous solution See Instructions, INJECT 0.5 ML SUBCUTANEOUSLY EVERY WEEK. ROTATE INJECTION SITES, # 2 mL, 5 Refills, Maintenance, 02/05/22 19:58:00 EDT, [facility], 163, cm, 02/05/22 11:00:00 EDT, [...] Confirmed Active Panic attacks Confirmed Active BHN/BHCP Cover Cutter Machine Charlene Fabian [phone] Confirmed Active Syncope and collapse Confirmed Active Tobacco dependence Confirmed Active DM2 (diabetes mellitus, type 2) Confirmed 04/03/17 Active Incontinence of urine 3 Confirmed Active 1seen on MRI 10/2016, rec repeat imaging in October [address] [place] [facility] [place] 3urge and stress Social History Social History Type Response Smoking Status Current every day sm oker; Type: Cigarettes; Tobacco use times per day: 1/2 ppd; entered on: 12/24/17 Sex Patient Care team information Care Team Personnel Name: Sindy Bernal RN Position: [facility] RN Member Role: Primary Care Nurse Name: Graciela Thrasher RN Position: [facility] SN RN Member Role: Primary Care Nurse Name: Stevie Angel RN Position: [facility] RN Member Role: Primary Care Nurse Name: Richardson NURSE MONITORINGLeonora Position: [facility] PCO Associate Professional Member Role: PCP Address: Address: [address] [place] [id number] Name: Keily Ortega RN Position: [facility] RN Member Role: Primary Care Nurse Name: Graciela Munroe RN Position: [facility] RN Member Role: Primary Care Nurse Name: Nichole Pichardo RN Position: [facility] RN Member Role: Primary Care Nurse Name: Melvin Whitfield RN Position: [facility] PCO RN Member Role: Primary Care Nurse Name: Phuong Berkowitz RN Position: [facility] RN Member Role: Primary Care Nurse Name: Joselyn Rain RN Position: [facility] Change Management Analyst Member Role: Primary Care Nurse Care Team Related Persons Name: IRA ROMERO Address: home [address] [place] [address] Name: JHON LARSON Address: home [address] [place] [address] Name: JHON LARSON Address: [address] [place] [address] Name: GALO CATALAN Name: NANCY CATALAN Address: home [address] [place] [address]
--- OUTSIDE RECORDS SUMMARY | 2023-03-25 08:31 | XMS_ITS | Continuity of Care Document ---
Author Name Unknown Organization [facility] Address [address] [place] [address]- Care Team Providers Care Cage Operator Name Role Phone Richardson QUIROZ, Leonora Pérez Primary Care Physician Encounter [facility] Date(s): 07/22/19 - 08/01/[address] [facility] [address] [address]- [facility] Attending Physician: Clarence Reynaga Admitting Physician: AdmClarence [...] 12:48:00 EST, Powder, Route to Pharmacy Electronically, [id number], [facility]/pharmacy #[id number], 158, cm, 04/26/19 9:58:00 EST, H... Start Date: 04/27/19 Status: Ordered albuterol 0.083% inhalation solution 3 mL = 2.5 mg, Inhalation, Every 4 hours, PRN for wheezing, # 100 each, 5 Refills, Maintenance, 06/27/19 14:32:00 EDT, Solution, [facility]/pharmacy #[id number], 160, cm, 06/01/19 14:08:00 EST, [...] 5 Refills, Maintenance, 04/19/19 15:40:00 EST, Tablet, [facility]/pharmacy #[id number], 158, cm, 04/04/19 15:21:00 EST, Height, 82, kg, 04/01/19 16:10:00 EST, Dry Weight Start Date: 04/19/19 Status: Ordered clonazePAM 0.5 mg oral tablet TAKE 1 TABLET BY MOUTH TWICE A DAY NEEDED Start Date: 06/02/19 Status: Ordered clotrimazole 1% topical cream 1 application, Topically, 2 times a day, # 30 Gm, 0 Refills, Maintenance, 05/30/19 19:02:00 EST, Cream, [facility]/pharmacy #[id number], 1 application Topically [...] 5 Refills, Maintenance, 04/28/19 16:05:00 EST, Tablet, [facility]/pharmacy #[id number], 158, cm, 04/28/19 14:51:00 EST, Height, 82, kg, 04/01/19 16:10:00 EST, Dry Weight Start Date: 04/28/19 Status: Ordered lidocaine 5% topical film 1 patch, Topically, Daily, For chronic radicular back pain, # 30 patch, 5 Refills, Maintenance, 06/27/19 14:37:00 EDT, [facility]/pharmacy #[id number], 1 patch Topically Daily,Instr:For chronic radicular back pain, 160, cm, 06/01/19 14:08:00 EST, Height, 88.9, kg,... Start Date: 06/27/19 Status: Ordered lisinopril 10 mg oral tablet 10 mg, 1, tablet, By Mouth, Daily, # 90 tablet, Refills 3, Tot. Refills 3, Maintenance, 05/08/19 20:27:00 EST, Route to Pharmacy Electronically, [facility]/pharmacy #[id number], to replace 2.5mg dose, 158, [...] not to exceed 3000 mg/day. instructions in [place], # 120 tablet, 2 Refills, Maintenance, 07/25/19 8:41:00 EDT, Tablet, [facility]/pharmacy #[id number], 160, cm, 07/22/19 15:08:00 EDT, Height, 86.8, kg, 04... Start Date: 07/25/19 Status: Ordered metFORMIN 750 mg oral tablet, extended release 1 tablet = 750 mg, By Mouth, 2 times a day, # 60 tablet, 6 Refills, Maintenance, 05/30/19 18:54:00 EST, ER Tablet, [facility]/pharmacy #[id number], dose increased to BID 05/30/19, [...] pain, for 28 days, on contract at [facility] # 56 tablet, 0 Refills, Acute 08/04/19 13:49:00 EDT, 07/07/19 13:49:00 EDT, [facility]/pharmacy #[id number], Partial fill upon patient request, 160, cm, 06/01/19 14:08:00 EST,... Start Date: 07/07/19 Stop Date: 08/04/19 Status: Ordered prazosin 1 mg oral capsule 1 mg, 1, capsule, By Mouth, Daily at bedtime, for nightmares, # 30 capsule, Refills 0, Tot. Refills0, Maintenance, 05/30/19 18:52:00 EST, Route to Pharmacy Electronically, [facility]/pharmacy #[id number], 160, cm, 05/30/19 18:08:00 EST, Height, 88.9, kg, 05/23/19... Start Date: 05/30/19 Status: Ordered predniSONE 20 mg oral tablet 2 tablet = 40 mg, By Mouth, Daily, for 5 days, # 10 tablet, 0 Refills, Acute 08/02/19 11:55:00 EDT,04/23/20 11:55:00 EDT, [facility]/pharmacy #[id number], 160, cm, 07/22/19 15:08:00 EDT, [...] tablet, 5 Refills, Maintenance, 05/04/19 9:35:00 EST, [facility]/pharmacy #[id number], 158, cm, 04/28/19 14:51:00 EST, Height, 82, kg, 04/01/19 16:10:00 EST, Dry Weight Start Date: 05/04/19 Status: Ordered Senna 8.6 mg oral tablet 8.6 mg, 1, tablet, By Mouth, Daily at bedtime, # 100 tablet, Refills 2, Tot. Refills 2, Maintenance, 06/10/19 16:12:00 EST, Route to Pharmacy Electronically, [facility]/pharmacy #[id number], 160, cm, 06/01/19 14:08:00 EST, Height, 88.9, kg, 05/23/19 22:09:00 EST,... Start Date: 06/10/19 Status: Ordered Spiriva Respimat 60 ACT 2.5 mcg/inh inhalation aerosol 2 puffs, Inhalation, Daily, # 1 each, 5 Refills, Maintenance, 04/26/19 10:30:00 EST, [facility]/pharmacy #[id number], 158, cm, 04/26/19 9:58:00 EST, Height, 82, kg, 04/01/19 16:10:00 EST, Dry Weight Start Date: 04/26/19 Status: Ordered tiZANidine 2 mg oral tablet 2 mg, 1, tablet, By Mouth, 2 times a day, PRN, # 30 tablet, Refills 2, Tot. Refills 2, Maintenance,as needed for muscle spasm, 07/25/19 8:41:00 EDT, Route to Pharmacy Electronically, [facility]/pharmacy #[id number], 160, cm, 07/22/19 15:08:00 EDT, [...] on CPAP(Confirmed) Active Panic attacks(Confirmed) Active *BHN/BHCP/Efrem Macdonlad-[phone]/Health group home, active care coordination(Confirmed) Active Acute [...]
--- OUTSIDE RECORDS SUMMARY | 2023-03-25 08:31 | XMS_ITS | Continuity of Care Document ---
Author Name Unknown Organization [facility] ter Address [address] [place] [id number]- Care Team Providers Care X Ray Examiner Of Aircraft Name Role Phone Richardson QUIROZ, Leonora Pérez Primary Care Physician [place] [facility] [place] 04/21/[address] [address]- Encounter Diagnosis Diabetes(Final) - 04/18/20 Chest pain(Final) - 04/18/20 Discharge Disposition: A-D/C Home Attending Physician: [facility] Admitting Physician: Cornelius Davis DO Referring Physician: Not on Staff, Referring [...] 14:12:00 EST, Powder, Route to Pharmacy Electronically, [id number], [facility]/pharmacy #[id number], 162.56, cm, 03/27/20 11:36:00... Start [...] 5 Refills, Maintenance, 12/30/19 18:21:00 EDT, Tablet, [facility]/pharmacy #[id number], 163, cm, 12/26/19 13:58:00 EDT, Height, 80, kg, 10/29/19 0:29:00 EDT, Dry Weight Start Date: 12/30/19 Status: Ordered atorvastatin 20 mg oral tablet 1 tablet = 20 mg, By Mouth, Daily, # 90 tablet, 3 Refills, Maintenance, 04/05/20 14:11:00 EST, Tablet, [facility]/pharmacy #[id number], Partial fill upon patient request [...] 1 Refills, Maintenance, 02/03/20 13:47:00 EDT, Cream, [facility]/pharmacy #[id number], 1 application Topically 2 times a day, 163, cm, 12/26/19 13:58:00 EDT, Height, 80, kg, 10/29/19 0:29:00 EDT, Dry Weight Start Date: 02/03/20 Status: Ordered duloxetine 60 mg oral enteric coated capsule 2 capsule = 120 mg, By Mouth, Daily, # 60 capsule, 5 Refills, Maintenance, 03/02/20 11:18:00 EST, Capsule, [facility]/pharmacy #[id number], Partial fill upon patient request. NOT INCREASED DOSE, 163, cm, 12/25/2012:58:00 EDT, Height, 80, kg, 10/29/19 0:29:00 EDT,... Start Date: 03/02/20 Status: Ordered Fioricet oral capsule 1 capsule, By Mouth, Every 4 hours, PRN as needed, for 5 days, # 30 capsule, 0 Refills, Acute 04/26/20 14:25:00 EST, 04/21/20 14:25:00 EST, Capsule, [facility]/pharmacy #[id number], Partial fill upon patient request if the prescription is for a schedule II opioid... Start Date: 04/21/20 Stop Date: 04/26/20 Status: Ordered Fioricet Tablet 1 tablet, Tablet, By Mouth, Every 4 hours, PRN for Headache, Routine, 04/18/20 13:53:00 EST Notes: Butalbital 50mg, Not to exceed 4000mg of Acetaminophen per 24 hours. 325mg, Caffeine 40mg per tablet Start Date: 04/18/20 Stop Date: 04/22/20 Status: Discontinued hydrochlorothiazide 12.5 mg oral tablet 1 tablet = 12.5 mg, By Mouth, Daily, # 90 tablet, 3 Refills, Maintenance, 01/19/20 10:28:00 EDT, Tablet, [facility]/pharmacy #[id number], 163, cm, 12/26/19 13:58:00 EDT, Height, 80, kg, 10/29/19 0:29:00 EDT, Dry Weight Start Date: 01/19/20 Status: Ordered Januvia 100 mg oral tablet 1 tablet = 100 mg, By Mouth, Daily, # 30 tablet, 5 Refills, Maintenance, 12/30/19 18:21:00 EDT, Tablet, [facility]/pharmacy #[id number], 163, cm, 12/26/19 13:58:00 EDT, Height, 80, kg, 10/29/19 0:29:00 EDT, Dry Weight Start Date: 12/30/19 Status: Ordered Lantus 100 u/ml subcutaneous solution = 30 units, Subcutaneous Injection, Daily, # 10 mL, 11 Refills, Maintenance, 12/26/19 14:22:00 EDT,Solution, [facility]/pharmacy #[id number], increased dose 12/26/19, 163, cm, 12/26/19 13:58:00 EDT, Height, 80, kg, 10/29/19 0:29:00 EDT, Dry Weight Start Date: 12/26/19 Status: Ordered lidocaine 5% topical film 1 patch, Topically, Daily, For chronic radicular back pain, # 30 patch, 5 Refills, Maintenance, 03/09/20 8:53:00 EST, [facility]/pharmacy #[id number], 1 [...] not to exceed 3000 mg/day. instructions in thai, # 120 tablet, 2 Refills, Maintenance, 11/01/19 15:24:00 EDT, Tablet, [facility]/pharmacy #[id number], 163, cm, 11/01/19 14:40:00 EDT, Height, [...] 2 Refills, Maintenance, 04/05/20 14:08:00 EST, Tablet, [facility]/pharmacy #[id number], Partial fill upon patient request if the prescription is for a schedule II opioid drug., 162.56, cm, ... Start Date: 04/05/20 Status: Ordered omeprazole 20 mg oral enteric coated capsule 1 capsule = 20 mg, By Mouth, Daily, Use as little as possible to control symptoms., # 30 capsule, 2Refills, Maintenance, 10/06/19 7:45:00 EDT, EC Capsule, [facility]/pharmacy #[id number], cancel Ranitidine, 160,cm, 09/28/19 8:58:00 EDT, [...] Acute 05/03/20 14:10:00 EST, 04/05/20 14:10:00 EST, [facility]/pharmacy #[id number], Partial fill upon patient request if the prescription is for a schedule II opioid drug. Client on c... Start Date: 04/05/20 Stop Date: 05/03/20 Status: Ordered oxyCODONE 5 mg oral tablet 10 mg, Tablet, By Mouth, 04/21/20 9:00:00 EST Start Date: 04/21/20 Stop Date: 04/21/20 Status: Completed Senna 8.6 mg oral tablet [...] each, 11 Refills, Maintenance, 04/05/20 14:17:00 EST, [facility]/pharmacy #[id number], Partial fill upon patient request if the prescription is for a schedule II opioid drug., 162.56, cm, 03/27/20 11:36:00 EST, Height, 81.81, kg, 12... Start Date: 04/05/20 Status: Ordered tiZANidine 4 mg oral tablet 4 mg, 1, tablet, By Mouth, Every 8 hours, PRN, # 84 tablet, Refills 1, Tot. Refills 1, Maintenance,Spasm, 02/03/20 13:47:00 EDT, Route to Pharmacy Electronically, [facility]/pharmacy #[id number], 163, cm, 12/26/19 13:58:00 EDT, [...] [place], pending [place] 3urge and stress Results Radiology Reports * Exam Date Time Procedure Performing Provider Status 04/18/20 2:50 AM Chest Portable Lolis Stephens; Aut h (Verified) Notes: (Chest Portable) Reason For Exam: Shortness of Breath RESULT: Chest Portable Chest Portable HX OF PRESENT ILLNESS: pt w CC of high blood sugar; pt reporting home poc glucose >500 s p >400 readings at home x 1 day. 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 afebrile; initial poc glucose 424; Reason: Shortness of Breath; Clinical Question(s): CHF / CHF COMPARISON: 03/25/2020 FINDINGS: LINES AND TUBES: None. LUNGS AND PLEURA: A few mild linear areas of scarring or atelectasis. Otherwise clear lungs without evidence of consolidation or pulmonary edema. No pleural effusion. No pneumothorax. HEART, MEDIASTINUM AND [place]: Heart is normal in size. Normal mediastinal and hilar contour. BONES AND SOFT TISSUES: No acute abnormality. IMPRESSION: No evidence of acute abnormality. WSN: [id number] Ordering Physician: Charly Hinds Dictated By: Cuba Willis MD Dictated Date/Time: 04/18/20 7:06 am Reviewed By: Cuba Willis MD Signed By: Cuba Willis MD Signed Date/Time: 04/18/20 7:06 am Transcribed By: WILVER Transcribed Date/Time: 04/18/20 7:05 am Vital Signs Most recent to oldest [Reference Range]: 1 2 3 Height 162 cm (04/21/20 11:33 AM) 162 cm (04/21/20 8:08 AM) 162 cm (04/21/20 4:24 AM) Weight 80 kg (04/19/20 8:11 AM) 80 kg (04/18/20 9:48 AM) Oxygen Saturation [94-100 %] 94 % (04/21/20 11:33 AM) 98 % (04/21/20 8:08 AM) 98 % (04/21/20 4:24 AM) Pulse Rate [55-90 bpm] 60 bpm (04/21/20 11:33 AM) 54 bpm *L* (04/21/20 8:08 AM) 61 bpm (04/21/20 4:24 AM) Body Mass Index [18.5-24.99] 30.48 *>HHI* (04/18/20 9:48 AM) Blood Pressure [90-138/55-84 mm Hg] 110/74mm Hg (04/21/20 11:33 AM) 126/66mm Hg (04/21/20 8:08 AM) 119/72mm Hg (04/21/20 4:24 AM) Respiratory Rate [16-30 br/min] 16 br/min (04/21/20 11:33 AM) 20 br/min (04/21/20 10:16 AM) 20 br/min (04/21/20 8:23 AM) Temperature [96.8-100.4 DegF] 98.3 DegF (04/21/20 11:33 AM) 98.0 DegF (04/21/20 8:08 AM) 97.8 DegF (04/21/20 4:24 AM) Liters per Minute 3 L/min (04/21/20 4:24 AM) 2 L/min (04/21/20 12:17 AM) 2 L/min (04/20/20 8:18 PM) Mode of Delivery (Oxygen) Room air (04/21/20 11:33 AM) Room air (04/21/20 8:08 AM) Nasal cannula (04/21/20 4:24 AM) Blood pressure sites Arm, right (04/21/20 11:33 AM) Arm, left (04/21/20 8:08 AM) Arm, left (04/21/20 4:24 AM) Temperature Route Oral (04/21/20 11:33 AM) Oral (04/21/20 8:08 AM) Oral (04/21/20 4:24 AM) Dry Weight 80 kg (04/18/20 9:48 AM) Social History Social History Type Response Tobacco Use: Pt states she q uit smoking 1 week ago. Sex Female
--- OUTSIDE RECORDS SUMMARY | 2023-03-25 08:31 | XMS_ITS | Continuity of Care Document ---
Author Name Unknown Organization [facility] ter Address [address] [place] [address]- Care Team Providers Care Glass Etcher Name Role Phone Richardson QUIROZ, Leonora Pérez Primary Care Physician [phone] Encounter [facility] [place] Date(s): 09/22/19 - 11/28/[address] [address]- [facility] Attending Physician: Richardson QUIROZ, Leonora Pérez Admitting [...] 12:48:00 EST, Powder, Route to Pharmacy Electronically, [id number], [facility]/pharmacy #[id number], 158, cm, 04/26/19 [...] pain, for 28 days, on contract at [facility]., # 56 tablet, 0 Refills, Acute 12/05/19 9:20:00 EDT, 11/07/19 9:20:00 EDT, [facility]/pharmacy #[id number], Partial fill uponpatient request, 163, cm, 11/01/19 14:40:00 EDT, He... Start Date: 11/07/19 Stop Date: 12/05/19 Status: Ordered Pen [place], 31 G x 5 mm BD Ultra [...] [address] Abd 09/18/16 at [facility] [place], pending MRI 6surgically repaired July 2015 Dr. Sg MENDEZ 7urge and stress Social History Social History Type Response Tobacco Use: Pt states she q uit smoking 1 week ago. Sex Female
--- OUTSIDE RECORDS SUMMARY | 2023-03-25 08:31 | XMS_ITS | Continuity of Care Document ---
Author Name Unknown Organization [facility] Address [address] [place] [address]- Care Team Providers Care Washtub Worker Name Role Phone Richardson QUIROZ, Leonora Pérez Primary Care Physician Encounter [facility] Date(s): 04/24/20 - 05/24/20 [facility] [address], [place] [address] Allergies, Adverse Reactions, Alerts Substance [...] 14:12:00 EST, Powder, Route to Pharmacy Electronically, [id number], [facility]/pharmacy #[id number], 162.56, cm, 03/27/20 11:36:00... Start Date: 04/05/20 Status: Ordered albuterol 0.083% inhalation solution 3 mL = 2.5 mg, Inhalation, Every 4 hours, PRN for wheezing, # 100 each, 5 Refills, Maintenance, 06/27/19 14:32:00 EDT, Solution, [facility]/pharmacy #[id number], 160, cm, 06/01/19 14:08:00 EST, Height, 88.9, kg, 05/23/19 22:09:00 EST, Dry Weight Start Date: 06/27/19 Status: Ordered amitriptyline 50 mg oral tablet 1 tablet = 50 mg, By Mouth, Daily at bedtime, # 30 tablet, 5 Refills, Maintenance, 12/30/19 18:21:00 EDT, Tablet, [facility]/pharmacy #[id number], 163, cm, 12/26/19 13:58:00 EDT, [...] Maintenance, 12/13/19 18:32:00 EDT, Tablet, [facility]/pharmacy #[id number], 163, cm, 12/13/19 15:57:00 EDT, Height, 80, kg, 10/29/19 0:29:00 EDT, Dry Weight Start Date: 12/13/19 Status: Ordered clonazePAM 0.5 mg oral tablet TAKE 1 TABLET BY MOUTH TWICE A DAY NEEDED Start Date: 06/02/19 Status: Ordered clotrimazole 1% topical cream 1 application, Topically, 2 times a day, # 30 Gm, 1 Refills, Maintenance, 02/03/20 13:47:00 EDT, Cream, [facility]/pharmacy #[id number], 1 [...] Refills, Maintenance, 03/09/20 8:53:00 EST, [facility]/pharmacy #[id number], 1 patch Topically [...] not to exceed 3000 mg/day. instructions in algerian, # 120 tablet, 2 Refills, Maintenance, 11/01/19 15:24:00 EDT, Tablet, [facility]/pharmacy #0488, 163, cm, 11/01/19 14:40:00 EDT, [...] 05/24/20 9:40:00 EST, EC Capsule, [facility]/pharmacy #[id number], note dose increase, 162, cm, [...] 17:54:00 EST, 05/03/20 17:54:00 EST, [facility]/pharmacy #[id number], Partial fill [...] to Pharmacy Electronically, [facility]/pharmacy #[id number], 160, cm, 06/01/19 14:08:00 EST, [...]
--- OUTSIDE RECORDS SUMMARY | 2023-03-25 08:31 | XMS_ITS | Continuity of Care Document ---
Author Name Unknown Organization [facility] Address [address] [place] [address]- Care Team Providers Care Baker Test Name Role Phone Richardson AGRICULTURAL ENGINEERING TECHNICIAN, Leonora Pérez Primary Care Physician [phone] Encounter [facility] Date(s): 03/10/19 - 03/20/19 [facility] [address] [place] [address]- [facility] Attending Physician: Admkevin, Clarence Admitting Physician: Admtr, [...] 15:03:51 EDT, Powder, Route to Pharmacy Electronically, [id number], [facility]/pharmacy #[id number] Start Date: 11/15/18 Status: [...] USE 1 SPRAY IN BOTH NOSTRILS DAILY, [facility]/pharmacy #[id number] Start Date: 12/01/18 Status: [...] HOURS THEN LEAVE OFF FOR 12 HOURS, [facility]/pharmacy #[id number] Start Date: 12/20/18 Status: Ordered lisinopril 5 mg oral tablet 2.5 mg, 0.5, tablet, By Mouth, Daily, # 15 tablet, Refills 0, Tot. Refills 0, Maintenance, 03/15/1910:26:38 EST, Route to Pharmacy Electronically, [id number], [facility]/pharmacy #0488, 163, cm, 03/15/19 6:25:33 [...] filipino, # 120 tablet, 2 Refills, Maintenance, 11/04/18 [...] for 28 days, on contract at [facility]., # 56 tablet, 0 Refills, Acute 03/29/19 15:22:59 EST, 03/01/19 15:22:59 EST, Partial fill upon patient request Start Date: 03/01/19 Stop Date: 03/29/19 Status: Ordered Pulmicort Flexhaler 180 mcg 1 [...] 1 TABLET BY MOUTH EVERYDAY AT BEDTIME, [facility]/pharmacy #[id number] Start Date: 01/27/19 Status: Ordered Senexon-S 2 tablet, By Mouth, Daily at bedtime, 0 Refills, Maintenance, 11/25/18 10:10:49 EDT Start Date: 11/25/18 Status: Ordered tiZANidine 4 mg oral tablet 4 mg, 1, tablet, By Mouth, Every 8 hours, # 90 tablet, Refills 2, Tot. Refills 2, Soft Stop, 03/10/19 12:35:20 EST, Route to Pharmacy Electronically, [id number], [facility]/pharmacy #[id number], 163, cm, 02/28/19 16:57:41 EST, Height, 81,... Start Date: 03/10/19 Status: Ordered Tums 500 mg oral tablet, chewable 500 mg, 1, tablet, Chew, 2 times a day, PRN, # 45 tablet, Refills 0, Tot. Refills 0, Maintenance, as needed for dyspepsia, 10/18/18 15:31:54 EDT, Route to Pharmacy Electronically, [id number], [facility]/pharmacy #[id number] Start Date: 10/18/18 Status: [...] on CPAP(Confirmed) Active Panic attacks(Confirmed) Active *BHN/BHCP/SARAHarmony [phone]/Health skilled nursing, active care coordination(Confirmed) Active Acute meniscal tear of right knee(Confirmed) 7 06/2015 Active Tobacco dependence(Confirmed) Active DM2 (diabetes mellitus, type 2)(Confirmed) 04/03/17 Active Incontinence of urine(Confirmed) 8 Active 1surgically repaired November 2015, Dr. Sg MENDEZ 2DJD Lumbar Spine per MRI 3L3-L4 disc herniation per client report 4seen on MRI 10/2016, rec repeat imaging in October 2017 5done in [place] 6[place] on CT [place] [facility] [place] 7surgically repaired July 2015 Dr. Sg MENDEZ 8urge and stress Social History Social History Type Response Tobacco Use: Pt states she q uit smoking 1 week ago. Sex
--- OUTSIDE RECORDS SUMMARY | 2023-03-25 08:31 | XMS_ITS | Continuity of Care Document ---
Author Name Unknown Organization [facility] Address [address] [place] [address]- Care Team Providers Care Lean Specialist Name Role Phone Richardson QUIROZ, Leonora Pérez Primary Care Physician Encounter [facility] Date(s): 08/14/20 - 09/13/20 [facility] [address] [place] [address]- Allergies, Adverse Reactions, Alerts Substance Reaction Severity [...] 14:12:00 EST, Powder, Route to Pharmacy Electronically, [id number], [facility]/pharmacy #[id number], 162.56, cm, 03/27/20 11:36:00... Start Date: 04/05/20 Status: Ordered albuterol 0.083% inhalation solution 3 mL = 2.5 mg, Inhalation, Every 4 hours, PRN for wheezing, # 100 each, 2 Refills, Maintenance, 08/15/20 10:22:00 EDT, Solution, [facility]/pharmacy #[id number], 163, cm, 08/09/20 8:45:00 EDT, Height, 84.8, kg, 06/25/20 20:28:00 EDT, Dry Weight Start Date: 08/15/20 Status: Ordered amitriptyline 75 mg oral tablet 1 tablet = 75 mg, By Mouth, Daily at bedtime, # 30 tablet, 5 Refills, Maintenance, 08/16/20 11:58:00 EDT, Tablet, [facility]/pharmacy #[id number], Partial fill upon patient request if the prescription is for a schedule II opioid drug. INSTEAD OF 50mg SCRIPT PLEASE... Start Date: 08/16/20 Status: Ordered atorvastatin 20 mg oral tablet 1 tablet = 20 mg, By Mouth, Daily, # 90 tablet, 3 Refills, Maintenance, 04/05/20 14:11:00 EST, Tablet, [facility]/pharmacy #[id number], Partial fill upon patient request if the prescription is for a schedule II opioid drug., 162.56, cm, 03/27/20 11:36:00 EST, Heig... Start Date: 04/05/20 Status: Ordered capsaicin 0.025% topical cream 1 application, Topically, 3 times a day, # 45 Gm, 3 Refills, Maintenance, 11/01/19 15:25:00 EDT, Cream, [facility]/pharmacy #[id number], 1 application Topically 3 times a day, 163, cm, 11/01/19 14:40:00 EDT, Height, 80, kg, 10/29/19 0:29:00 EDT, Dry Weight Start Date: 11/01/19 Status: Ordered cetirizine 10 mg oral tablet 1 tablet = 10 mg, By Mouth, Daily, # 30 tablet, 5 Refills, Maintenance, 06/20/20 13:18:00 EDT, Tablet, [facility]/pharmacy #0488, 162, cm, 05/24/20 9:01:00 EST, Height, 80, kg, 04/18/20 9:48:00 EST, Dry Weight Start Date: 06/20/20 Status: Ordered clonazePAM 0.5 mg oral tablet TAKE 1 TABLET BY MOUTH TWICE A DAY NEEDED Start Date: 06/02/19 Status: Ordered clotrimazole 1% topical cream 1 application, Topically, 2 times a day, # 30 Gm, 1 Refills, Maintenance, 07/30/20 19:49:00 EDT, Cream, [facility]/pharmacy #0488, 1 [...] Maintenance, 03/02/20 11:18:00 EST, Capsule, [facility]/pharmacy #[id number], Partial fill upon patient request. NOT INCREASED DOSE, 163, cm, 12/25/2012:58:00 EDT, Height, 80, kg, 10/29/19 0:29:00 EDT,... Start Date: 03/02/20 Status: Ordered fluticasone 50 mcg/inh nasal spray See Instructions, USE 1 SPRAY IN BOTH NOSTRILS 2 TIMES A DAY, # 16 mL, 1 Refills, Maintenance, [id number], 30, USE 1 SPRAY IN BOTH NOSTRILS 2 TIMES A DAY, 163, cm, 08/15/20 14:23:00 EDT, Height,84.8, kg, 06/25/20 20:28:00 EDT, Dry Weight Start Date: 09/07/20 Status: Ordered hydrochlorothiazide 12.5 mg oral tablet 1 tablet = 12.5 mg, By Mouth, Daily, # 90 tablet, 3 Refills, Maintenance, 01/19/20 10:28:00 EDT, Tablet, [facility]/pharmacy #0488, 163, cm, 12/26/19 13:58:00 EDT, Height, 80, kg, 10/29/19 0:29:00 EDT, Dry Weight Start Date: 01/19/20 Status: Ordered Januvia 100 mg oral tablet 1 tablet = 100 mg, By Mouth, Daily, # 30 tablet, 2 Refills, Maintenance, 08/27/20 11:00:00 EDT, Tablet, [facility]/pharmacy #0488, 163, cm, 08/15/20 14:23:00 EDT, Height, 84.8, kg, 06/25/20 20:28:00 EDT, Dry Weight Start Date: 08/27/20 Status: Ordered Lantus 100 u/ml subcutaneous solution = 40 units, Subcutaneous Injection, Daily, # 12 mL, 11 Refills, Maintenance, 05/07/20 13:24:00 EST,Solution, [facility]/pharmacy #[id number], increased dose 12/26/19, 162, cm, 04/21/20 11:33:00 EST, Height, 80, kg, 04/18/20 9:48:00 EST, Dry Weight Start Date: 05/07/20 Status: Ordered lidocaine 5% topical film 1 patch, Topically, Daily, For chronic radicular back pain, # 30 patch, 5 Refills, Maintenance, 03/09/20 8:53:00 EST, [facility]/pharmacy #[id number], 1 patch Topically Daily,Instr:For chronic radicular back pain, 163, cm, 12/26/19 13:58:00 EDT, Height, 80, kg, 07... Start Date: 03/09/20 Status: Ordered lisinopril 20 mg oral tablet 20 mg, 1, tablet, By Mouth, Daily, # 30 tablet, Refills 11, Tot. Refills 11, Maintenance, 05/07/20 13:30:00 EST, Route to Pharmacy Electronically, [facility]/pharmacy #[id number], 162, cm, 04/21/20 11:33:00 EST, Height, 80, kg, 04/18/20 9:48:00 EST, Dry Weight Start Date: 05/07/20 Status: Ordered loratadine 10 mg oral capsule 1 capsule = 10 mg, By Mouth, Daily, # 40 capsule, 0 Refills, Maintenance, 08/15/20 15:59:00 EDT, Capsule, [facility]/pharmacy #[id number], Partial fill upon patient request if the prescription is for a schedule II opioid drug., 163, cm, 08/15/20 14:23:00 EDT, Heig... Start Date: 08/15/20 Status: Ordered Mapap 325 mg oral tablet 2 tablet = 650 mg, By Mouth, Every 4 hours, PRN for pain, not to exceed 3000 mg/day. instructions in faroese, # 120 tablet, 2 Refills, Maintenance, 11/01/19 [...] day, for 28 days, on contract at [facility], # 56 tablet, 0 Refills, [...] 12:46:00 EST, Route to Pharmacy Electronically, [facility]/pharmacy #[id number], 162, cm, 05/24/20 9:01:00 EST, Height, 80, kg, 04/18/20 9:48:00 EST, Dry... Start Date: 06/04/20 Status: Ordered Soma 350 mg oral tablet 350 mg, 1, tablet, By Mouth, 3 times a day, # 9 tablet, Refills 0, Tot. Refills 0, Maintenance, 05/04/20 15:46:00 EST, Route to Pharmacy Electronically, [facility]/pharmacy #[id number], Partial fill [...] [address] [place]18[place] [facility] [place] 3urge and stress Social History Social History Type Response Tobacco Use: Pt states she q uit smoking 1 week ago. Sex
--- OUTSIDE RECORDS SUMMARY | 2023-03-25 08:31 | XMS_ITS | Continuity of Care Document ---
Author Name Unknown Organization [facility] Address [address] [place] [address]- Care Team Providers Care Radio Message Router Name Role Phone Richardson ATHLETIC COORDINATOR, Leonora Pérez Primary Care Physician [phone] Encounter [facility] Date(s): 09/16/22 - 10/16/22 [facility] [address] [place] [address]- Allergies, Adverse Reactions, Alerts Substance Reaction Severity Status morphine Active gabapentin swelling Active MetFORMIN Hydrochloride ER black tarry stool Active Lyrica dysphagia Active SEROquel body swelling - all over Act tony Immunizations Given and Recorded Vaccine Date Status Refusal Reason [id number] 12y+ bivalent booster vax 01/30/22 Given influenza virus vaccine, inactivated 01/30/22 Give n influenza virus vaccine, inactivated 02/04/21 Give n influenza virus vaccine, inactivated 1 04/19/20 Gi tonio influenza virus vaccine, inactivated 03/12/19 Give n influenza virus vaccine, inactivated 01/19/18 Give n influenza virus vaccine, inactivated 02/16/17 Give n pneumococcal 20-valent conjugate vaccine 12/26/21 Given SARS-CoV-2 mRNA ([id number]) vax 05/14/21 Given SARS-CoV-2 (COVID-19) mRNA BNT-162b2 [...] 09/25/22 17:00:00 EDT, Route to Pharmacy Electronically, [facility], Partial fill upon patient request if the prescription is for a sched... Start Date: 09/25/22 Status: Ordered Advair Diskus 500 mcg-50 mcg inhalation powder 1, inhalation, Inhalation, 2 times a day, rinse mouth and throat after use, # 60 each, Refills 11, Tot. Refills 11, Maintenance, 09/25/22 17:00:00 EDT, Inhaler, Route to Pharmacy Electronically, [id number], [facility]... Start Date: 09/25/22 Status: Ordered albuterol 0.083% inhalation solution 3 mL = 2.5 mg, 0 Refills, Maintenance, 02/06/22 16:39:00 EDT, Partial fill upon patient request if the prescription is for a schedule II opioid drug. Start Date: 02/06/22 Status: Ordered All Day Allergy 10 mg oral tablet 1 tablet, By Mouth, Daily, # 90 tablet, 1 Refills, Maintenance, 07/25/22 12:30:00 EDT, [facility], 163, cm, 07/11/22 14:19:00 EDT, Height, 83, kg, 02/11/22 19:19:00 EST, Dry Weight Start Date: 07/25/22 Status: Ordered amLODIPine 5 mg oral tablet 5 mg, 1, tablet, By Mouth, Daily, # 90 tablet, Refills 3, Tot. Refills 3, Maintenance, 04/29/22 11:56:00 EST, Route to Pharmacy Electronically, [facility], Partial fill upon patient request if the prescription is for a schedule II opio... Start Date: 04/29/22 Status: Ordered atorvastatin 40 mg oral tablet 1 tablet = 40 mg, By Mouth, Daily, # 90 tablet, 3 Refills, Maintenance, 09/25/22 16:58:00 EDT, Tablet, [facility] Partial fill upon patient request if the prescription is for a schedule II opioid drug., 163, cm, 09/25/22 16:20:00 EDT,... Start Date: 09/25/22 Status: Ordered clonazePAM 0.5 mg oral tablet 1 tablet = 0.5 mg, By Mouth, 2 times a day, # 60 tablet, 0 Refills, Maintenance, 07/25/22 17:58:00 EDT, [facility] Partial fill upon patient [...] Gm, 1 Refills, Maintenance, 09/03/22 14:02:00 EDT, [facility], 15, APPLY TOPICALLY TO AFFECTED AREA TWO TIMES A DAY,163, cm, 08/14/22 16:50:00 EDT, Height, 83, kg, 11/... Start Date: 09/03/22 Status: Ordered docusate-senna 50 mg-187 mg oral tablet 2 tablet, By Mouth, 2 times a day, PRN Constipation, # 100 tablet, 11 Refills, Maintenance, 08/14/22 16:57:00 EDT, Tablet, [facility] Partial fill upon patient request if the prescription is for a schedule II opioid drug., 2 tablet By... Start Date: 08/14/22 Status: Ordered duloxetine 60 mg oral enteric coated capsule 2 capsule = 120 mg, By Mouth, Daily, # 60 capsule, 5 Refills, Maintenance, 05/26/22 17:03:00 EST, Capsule, [facility] Partial fill upon patient request. NOT INCREASED DOSE. Please cancel all other Duloxetine scripts, 163, cm, 05/19/22... Start Date: 05/26/22 Status: Ordered empagliflozin 10 mg oral tablet 1 tablet = 10 mg, By Mouth, Daily in AM, # 90 tablet, 3 Refills, Maintenance, 09/25/22 17:01:00 EDT, Tablet, [facility], Partial fill upon patient [...] 10/02/22 21:59:00 EDT, Route to Pharmacy Electronically, [facility], 163, cm, 09/25/22 16:20:00 EDT, Height, 83, kg, 02/11/22 19:19:00 EST, Dry... Start Date: 10/02/22 Status: Ordered lidocaine 5% topical film 1 patch, Topically, Daily, PRN Pain , Mild, remove after 12 hours, # 13 each, 5 Refills, Maintenance, 09/25/22 16:59:00 EDT, Film, [facility], Partial fill upon patient request if theprescription is for a schedule II opioid drug., 1 p... Start Date: 09/25/22 Status: Ordered lisinopril 20 mg oral tablet 20 mg, 1, tablet, By Mouth, Daily, # 90 tablet, Refills 1, Tot. Refills 1, Maintenance, 07/25/22 12:31:00 EDT, Route to Pharmacy Electronically, [facility] 163, cm, 07/11/22 14:19:00EDT, Height, 83, kg, [...] 30 capsule, 2 Refills, 08/26/22 13:27:00 EDT, [facility] 163, cm, 08/14/22 16:50:00 EDT, Height, 83, kg, 02/11/22 19:19:00 EST, Dry Weight Start Date: 08/26/22 Status: Ordered oxyCODONE 15 mg oral tablet 1 tablet = 15 mg, By Mouth, 3 times a day, on contract at [facility], # 84 tablet, 0 Refills, Maintenance, 09/25/22 17:02:00 EDT, [facility], Partial fill upon [...] 90 capsule, 1 Refills, Maintenance,09/25/22 16:54:00 EDT, [facility]., 163, cm, 09/25/22 16:20:00 EDT, Height, 83, kg, 02/11/22 19:19:00 EST, Dry Weight Start Date: 09/25/22 Status: Ordered traZODone 50 mg oral tablet 1/2 TO 1 TABLET, By Mouth, Daily at bedtime, # 30 tablet, Refills 5, Maintenance, 08/29/22 11:31:00EDT, Route to Pharmacy Electronically, [facility], 163, cm, 08/14/22 16:50:00 EDT, Height, 83, kg, 02/11/22 19:19:00 EST, Dry Weight Start Date: 08/29/22 Status: Ordered triamcinolone 55 mcg/inh nasal spray 1 sprays = 55 mcg, Nares, Both, Daily, # 1 each, 5 Refills, Maintenance, 08/14/22 16:59:00 EDT, [facility]., Partial fill upon patient request if the prescription is for a schedule II opioid drug., 1 sprays Nares, Both Daily, 163, cm, 0... 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 SN RN Member Role: Primary Care Nurse Name: Stevie Angel RN Position: [facility] RN Member Role: Primary Care Nurse Name: Leonora Bai NP Position: [facility] PCO Associate Professional Member Role: PCP Address: Address: [address] [place] [id number] Name: Keily Ortega RN Position: [facility] RN Member Role: Primary Care Nurse Name: Nichole Pichardo RN Position: [facility] RN Member Role: Primary Care Nurse Name: Melvin Whitfield RN Position: [facility] Nurse Member Role: Primary Care Nurse Name: Phuong Berkowitz RN Position: [facility] RN Member Role: Primary Care Nurse Name: Joselyn Rain RN Position: [facility] Hospital Insurance Salesman Member Role: Primary Care Nurse Care Team Related Persons Name: IRA ROMERO Address: home [address] [place] [address] Name: JHON LARSON Address: [address] [place] [address] Name: JHON LARSON Address: [address] [place] [address] Name: GALO CATALAN Name: NANCY CATALAN Address: home [address] [place] [address]
--- OUTSIDE RECORDS SUMMARY | 2023-03-25 08:31 | XMS_ITS | Continuity of Care Document ---
Author Name Unknown Organization [facility] Address [address] [place] [id number]- Care Team Providers Care Linux Vmware Administrator Name Role Phone Richardson REPACKER, Leonora Pérez Primary Care Physician Encounter [facility] Date(s): 12/27/18 - 03/23/19 [facility] [address] [place] [address]- [facility] Attending Physician: Not on Staff, Attending MD [...] 15:03:51 EDT, Powder, Route to Pharmacy Electronically, [id number], [facility]/pharmacy #[id number] Start Date: 11/15/18 [...] USE 1 SPRAY IN BOTH NOSTRILS DAILY, [facility]/pharmacy #[id number] Start Date: 12/01/18 [...] HOURS THEN LEAVE OFF FOR 12 HOURS, [facility]/pharmacy #[id number] Start Date: 12/20/18 Status: Ordered lisinopril 5 mg oral tablet 2.5 mg, 0.5, tablet, By Mouth, Daily, # 15 tablet, Refills 0, Tot. Refills 0, Maintenance, 03/15/1910:26:38 EST, Route to Pharmacy Electronically, [id number], [facility]/pharmacy #[id number], 163, cm, 03/15/19 [...] not to exceed 3000 mg/day. instructions in kenyan, # 120 tablet, 2 Refills, Maintenance, 11/04/18 [...] day, for 28 days, on contract at [facility]., # 56 tablet, 0 Refills, Acute 03/29/19 [...] 1 TABLET BY MOUTH EVERYDAY AT BEDTIME, [facility]/pharmacy #[id number] Start Date: 01/27/19 Status: Ordered Senexon-S 2 tablet, By Mouth, Daily at bedtime, 0 Refills, Maintenance, 11/25/18 10:10:49 EDT Start Date: 11/25/18 Status: Ordered tiZANidine 4 mg oral tablet 4 mg, 1, tablet, By Mouth, Every 8 hours, # 90 tablet, Refills 2, Tot. Refills 2, Soft Stop, 03/10/19 12:35:20 EST, Route to Pharmacy Electronically, [id number], [facility]/pharmacy #[id number], 163, cm, 02/28/19 16:57:41 EST, Height, 81,... Start Date: 03/10/19 Status: Ordered Tums 500 mg oral tablet, chewable 500 mg, 1, tablet, Chew, 2 times a day, PRN, # 45 tablet, Refills 0, Tot. Refills 0, Maintenance, as needed for dyspepsia, 10/18/18 15:31:54 EDT, Route to Pharmacy Electronically, [id number], [facility]/pharmacy #[id number] Start Date: 10/18/18 [...] on CPAP(Confirmed) Active Panic attacks(Confirmed) Active *BHN/BHCP/SARAHarmony [id number]-[phone]/Health [facility], active care coordination(Confirmed) Active Acute meniscal tear [...] [place] 6seen on CT Abd 09/18/16 at [facility], pending MRI 7surgically repaired July 2015 Dr. Sg MENDEZ 8urge and stress Social History Social History Type Response Tobacco Use: Pt states she q uit smoking 1 week ago. Sex
--- OUTSIDE RECORDS SUMMARY | 2023-03-25 08:31 | XMS_ITS | Continuity of Care Document ---
Author Name Unknown Organization [facility] Address [address] [place] [address]- Care Team Providers Care Conference Coordinator Name Role Phone Richardson RN TEAM LEADER, Leonora Pérez Primary Care Physician Encounter [facility] Date(s): 02/05/22 - 03/07/[address] [address]- Attending Physician: Clarence Reynaga Admitting Physician: Clarence Reynaga Referring Physician: Clarence Reynaga Allergies, Adverse Reactions, Alerts Substance Reaction Severity Status morphine Active gabapentin swelling Active Lyrica dysphagia Active MetFORMIN Hydrochloride ER black tarry stool Active SEROquel body swelling - all over Act tony Immunizations Given and Recorded Vaccine Date Status Refusal Reason [id number] 12y+ bivalent booster vax 01/30/22 Given influenza virus vaccine, inactivated 01/30/22 Give n influenza virus vaccine, inactivated 02/04/21 Give n influenza virus vaccine, inactivated 1 04/19/20 Gi tonio influenza virus vaccine, inactivated 03/12/19 Give n influenza virus vaccine, inactivated 01/19/18 Give n influenza virus vaccine, inactivated 02/16/17 Give n pneumococcal 20-valent conjugate vaccine 12/26/21 Given SARS-CoV-2 mRNA ([id number]) vax 05/14/21 Given SARS-CoV-2 (COVID-19) mRNA BNT-162b2 [...] 10/22/21 9:23:00 EDT, Route to Pharmacy Electronically, [facility], Partial fill uponpatient request if the [...] 08/30/21 12:06:00 EDT, Route to Pharmacy Electronically, [facility], Partial fill upon patient request if the prescription is for a sche... Start Date: 08/30/21 Status: Ordered amLODIPine 5 mg oral tablet 5 mg, 1, tablet, By Mouth, Daily, # 90 tablet, Refills 0, Tot. Refills 0, Maintenance, 01/30/22 10:50:00 EDT, Route to Pharmacy Electronically, [facility], Partial fill upon patient request if the prescription is for a schedule II opio... Start Date: 01/30/22 Status: Ordered cetirizine 10 mg oral tablet 1 tablet = 10 mg, By Mouth, Daily, # 30 tablet, 5 Refills, Maintenance, 08/28/21 9:07:00 EDT, Tablet, [facility], 162, cm, 08/22/21 9:46:00 EDT, Height, 86, kg, 07/23/21 0:58:00 EDT, Dry Weight Start Date: 08/28/21 Status: Ordered cholecalciferol 5000 intl units oral capsule 1 capsule = 125 mcg, By Mouth, Daily, with food, # 100 capsule, 2 Refills, Maintenance, 02/11/21 11:17:00 EST, Capsule, [facility]/pharmacy #[id number], Partial fill [...] 5 Refills, Maintenance, 11/14/21 11:41:00 EDT, Capsule, [facility] Partial fill [...] 16 mL, 1 Refills, 07/08/21 9:44:00 EDT, [facility]., 30, USE 1 SPRAY IN BOTH NOSTRILS 2 TIMES A DAY, 162.5, cm, 228:49:00 EDT, Height, 85.8, kg, 06/04/21 10:03:00 ES... Start Date: 07/08/21 Status: Ordered ibuprofen 800 mg oral tablet 1, tablet, By Mouth, 3 times a day, PRN, # 90 tablet, Refills 1, Maintenance, NEEDED FOR PAIN, 03/05/22 15:56:00 EST, Route to Pharmacy Electronically, [facility], 163, cm, 02/11/22 19:19:00 EST, Height, 83, kg, 02/11/22 19:19:00 EST, Dry... Start Date: 03/05/22 Status: Ordered Januvia 100 mg oral tablet 1 tablet = 100 mg, By Mouth, Daily, # 90 tablet, 3 Refills, Maintenance, 06/18/21 21:04:00 EDT, Tablet, [facility]., 162.5, cm, 06/17/21 13:04:00 EDT, Height, 85.8, kg, 06/04/21 10:03:00 EST, Dry Weight Start Date: 06/18/21 Status: Ordered Lantus 100 u/ml subcutaneous solution = 50 units, Subcutaneous Injection, Daily, # 15 mL, 2 Refills, Maintenance, 01/06/22 12:07:00 EDT, Solution, [facility]., ;, 163, cm, 01/03/22 11:20:00 EDT, Height, 84, kg, 01/02/22 19:36:00 EDT, Dry Weight Start Date: 01/06/22 Status: Ordered lidocaine 5% topical film 1 patch, Topically, Daily, PRN Pain , Mild, remove after 12 hours, # 13 each, 5 Refills, Maintenance, 12/26/21 10:37:00 EDT, Film, [facility], Partial fill upon patient request if theprescription is for a schedule II opioid drug., 1 p... Start Date: 12/26/21 Status: Ordered lisinopril 20 mg oral tablet 20 mg, 1, tablet, By Mouth, Daily, # 90 tablet, Refills 3, Tot. Refills 3, Maintenance, 08/28/21 9:07:00 EDT, Route to Pharmacy Electronically, [facility], 162, cm, 08/22/21 9:46:00 EDT, Height, 86, kg, 07/23/21 0:58:00 EDT, Dry Weight Start Date: 08/28/21 Status: Ordered Melatonin 10 mg oral tablet 1 tablet = 10 mg, By Mouth, Daily at bedtime, # 30 each, 5 Refills, Maintenance, 11/14/21 11:42:00 EDT, [facility], Partial fill upon patient [...] PRN NEEDED, # 30 capsule, 2 Refills, [facility], 162, cm, 09/06/21 13:04:00 EDT, Height, 86, kg, 07/23/21 0:58:00 EDT, Dry Weight Start Date: 10/02/21 Status: Ordered oxyCODONE 15 mg oral tablet 1 tablet = 15 mg, By Mouth, 3 times a day, for 28 days, On contract at [facility]., # 84 tablet, 0 Refills, Acute 03/26/22 15:15:00 EST, 02/26/22 15:15:00 EST, [facility], Partial fill uponpatient request if the [...] 07/08/21 9:39:00 EDT, Route to Pharmacy Electronically, [facility], 162.5, cm, 07/08/21 8:49:00 EDT, Height, 85.8, kg, 06/04/21 10:0... Start Date: 07/08/21 Status: Ordered tiZANidine 4 mg oral capsule 1 capsule, By Mouth, 3 times a day, # 90 capsule, 0 Refills, Maintenance, 03/06/22 16:55:00 EST, [facility], 163, cm, 02/11/22 19:19:00 EST, Height, 83, kg, 02/11/22 19:19:00 EST, Dry Weight Start Date: 03/06/22 Status: Ordered Trulicity Pen 3 mg/0.5 mL subcutaneous solution See Instructions, INJECT 0.5 ML SUBCUTANEOUSLY EVERY WEEK. 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 Charlene Fabian [phone] Confirmed Active Syncope and collapse Confirmed Active [...] Nurse Name: Richardson QUIROZ, Leonora Pérez Position: [facility] PCO Associate Professional Member Role: PCP Address: Address: [address] [place] [id number] Name: Keily Ortega RN Position: [facility] [...] Care Nurse Name: Joselyn Rain RN Position: [facility] Senior Ux Designer Member Role: Primary Care Nurse Care Team Related Persons Name: ROMERO IRA Address: home [address] [place] [address] Name: JHON LARSON Address: [address] [place] [address] Name: JHON LARSON Address: [address] [place] [address] Name: GALO CATALAN Name: NANCY CATALAN Address: home [address] [place] [address]
--- OUTSIDE RECORDS SUMMARY | 2023-03-25 08:32 | XMS_ITS | Continuity of Care Document ---
Author Name Unknown Organization [facility] Address [address] [place] [id number]- Care Team Providers Care Swatch Maker Name Role Phone Richardson QUIROZ, Leonora Pérez [id number] Date(s): 09/18/22 - 10/18/[address] [address] Attending Physician: Clarence Reynaga Admitting Physician: Clarence Reynaga Referring Physician: AdmtrClarence Allergies, Adverse Reactions, Alerts Substance Reaction Severity Status morphine Active gabapentin swelling Active Lyrica dysphagia Active SEROquel body swelling - all over Act tony MetFORMIN Hydrochloride ER black tarry stool Active Immunizations Given and Recorded Vaccine Date Status Refusal Reason [id number] 12y+ bivalent booster vax 01/30/22 Given influenza virus vaccine, inactivated 01/30/22 Give n influenza virus vaccine, inactivated 02/04/21 Give n influenza virus vaccine, inactivated 1 04/19/20 Gi tonio influenza virus vaccine, inactivated 03/12/19 Give n influenza virus vaccine, inactivated 01/19/18 Give n influenza virus vaccine, inactivated 02/16/17 Give n pneumococcal 20-valent conjugate vaccine 12/26/21 Given SARS-CoV-2 mRNA ([id number]-[id number]) vax 05/14/21 Given SARS-CoV-2 (COVID-19) mRNA BNT-162b2 [...] 09/25/22 17:00:00 EDT, Route to Pharmacy Electronically, [facility], Partial fill upon patient request if the prescription is for a sched... Start Date: 09/25/22 Status: Ordered Advair Diskus 500 mcg-50 mcg inhalation powder 1, inhalation, Inhalation, 2 times a day, rinse mouth and throat after use, # 60 each, Refills 11, Tot. Refills 11, Maintenance, 09/25/22 17:00:00 EDT, Inhaler, Route to Pharmacy Electronically, [id number], [facility]... Start Date: 09/25/22 Status: Ordered albuterol 0.083% inhalation solution 3 mL = 2.5 mg, 0 Refills, Maintenance, 02/06/22 16:39:00 EDT, Partial fill upon patient request if the prescription is for a schedule II opioid drug. Start Date: 02/06/22 Status: Ordered All Day Allergy 10 mg oral tablet 1 tablet, By Mouth, Daily, # 90 tablet, 1 Refills, Maintenance, 07/25/22 12:30:00 EDT, [facility], 163, cm, 07/11/22 14:19:00 EDT, Height, 83, kg, 02/11/22 19:19:00 EST, Dry Weight Start Date: 07/25/22 Status: Ordered amLODIPine 5 mg oral tablet 5 mg, 1, tablet, By Mouth, Daily, # 90 tablet, Refills 3, Tot. Refills 3, Maintenance, 04/29/22 11:56:00 EST, Route to Pharmacy Electronically, [facility], Partial fill upon patient request if the prescription is for a schedule II opio... Start Date: 04/29/22 Status: Ordered atorvastatin 40 mg oral tablet 1 tablet = 40 mg, By Mouth, Daily, # 90 tablet, 3 Refills, Maintenance, 09/25/22 16:58:00 EDT, Tablet, [facility] Partial fill upon patient request if the prescription is for a schedule II opioid drug., 163, cm, 09/25/22 16:20:00 EDT,... Start Date: 09/25/22 Status: Ordered clonazePAM 0.5 mg oral tablet 1 tablet = 0.5 mg, By Mouth, 2 times a day, # 60 tablet, 0 Refills, Maintenance, 07/25/22 17:58:00 EDT, [facility] Partial fill upon patient request [...] Gm, 1 Refills, Maintenance, 09/03/22 14:02:00 EDT, [facility], 15, APPLY TOPICALLY TO AFFECTED AREA TWO TIMES A DAY,163, cm, 08/14/22 16:50:00 EDT, Height, 83, kg, 11/... Start Date: 09/03/22 Status: Ordered docusate-senna 50 mg-187 mg oral tablet 2 tablet, By Mouth, 2 times a day, PRN Constipation, # 100 tablet, 11 Refills, Maintenance, 08/14/22 16:57:00 EDT, Tablet, [facility] Partial fill upon patient request if the prescription is for a schedule II opioid drug., 2 tablet By... Start Date: 08/14/22 Status: Ordered duloxetine 60 mg oral enteric coated capsule 2 capsule = 120 mg, By Mouth, Daily, # 60 capsule, 5 Refills, Maintenance, 05/26/22 17:03:00 EST, Capsule, [facility] Partial fill upon patient request. NOT INCREASED DOSE. Please cancel all other Duloxetine scripts, 163, cm, 05/19/22... Start Date: 05/26/22 Status: Ordered empagliflozin 10 mg oral tablet 1 tablet = 10 mg, By Mouth, Daily in AM, # 90 tablet, 3 Refills, Maintenance, 09/25/22 17:01:00 EDT, Tablet, [facility]., Partial fill upon patient request if [...] 10/02/22 21:59:00 EDT, Route to Pharmacy Electronically, [facility], 163, cm, 09/25/22 16:20:00 EDT, Height, 83, kg, 02/11/22 19:19:00 EST, Dry... Start Date: 10/02/22 Status: Ordered lidocaine 5% topical film 1 patch, Topically, Daily, PRN Pain , Mild, remove after 12 hours, # 13 each, 5 Refills, Maintenance, 09/25/22 16:59:00 EDT, Film, [facility]., Partial fill upon patient request if theprescription is for a schedule II opioid drug., 1 p... Start Date: 09/25/22 Status: Ordered lisinopril 20 mg oral tablet 20 mg, 1, tablet, By Mouth, Daily, # 90 tablet, Refills 1, Tot. Refills 1, Maintenance, 07/25/22 12:31:00 EDT, Route to Pharmacy Electronically, [facility]., 163, cm, 07/11/22 14:19:00EDT, Height, 83, kg, 02/11/22 19:19:00 EST, Dry Weight Start Date: 07/25/22 Status: Ordered mirtazapine 30 mg oral tablet 1 tablet = 30 mg, By Mouth, Daily at bedtime, # 90 tablet, 1 Refills, Maintenance, 09/25/22 17:00:00 EDT, Tablet, [facility]., Partial fill upon patient request if the prescription is for a schedule II opioid drug., 163, cm, 09/25/22 16... Start Date: 09/25/22 Status: Ordered omeprazole 40 mg oral enteric coated capsule 1 capsule, By Mouth, Daily, PRN NEEDED, # 30 capsule, 2 Refills, 08/26/22 13:27:00 EDT, [facility]., 163, cm, 08/14/22 16:50:00 EDT, Height, 83, kg, 02/11/22 19:19:00 EST, Dry Weight Start Date: 08/26/22 Status: Ordered oxyCODONE 15 mg oral tablet 1 tablet = 15 mg, By Mouth, 3 times a day, on contract at [facility], # 84 tablet, 0 Refills, Maintenance, 09/25/22 17:02:00 EDT, [facility], Partial fill upon patient request if [...] 90 capsule, 1 Refills, Maintenance,09/25/22 16:54:00 EDT, [facility]., 163, cm, 09/25/22 16:20:00 EDT, Height, 83, kg, 02/11/22 19:19:00 EST, Dry Weight Start Date: 09/25/22 Status: Ordered traZODone 50 mg oral tablet 1/2 TO 1 TABLET, By Mouth, Daily at bedtime, # 30 tablet, Refills 5, Maintenance, 08/29/22 11:31:00EDT, Route to Pharmacy Electronically, [facility], 163, cm, 08/14/22 16:50:00 EDT, Height, 83, kg, 02/11/22 19:19:00 EST, Dry Weight Start Date: 08/29/22 Status: Ordered triamcinolone 55 mcg/inh nasal spray 1 sprays = 55 mcg, Nares, Both, Daily, # 1 each, 5 Refills, Maintenance, 08/14/22 16:59:00 EDT, [facility], Partial fill upon patient request if the prescription is for a schedule II opioid drug., 1 sprays Nares, Both Daily, 163, cm, 0... 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 Charlene Fabian [phone] Confirmed Active Syncope and collapse Confirmed Active [...] Team Personnel Name: Sindy Bernal RN Position: [facility] RN Member Role: Primary Care Nurse Name: Graciela Thrasher RN Position: [facility] SN RN Member Role: Primary Care Nurse Name: Stevie Angel RN Position: [facility] RN Member Role: Primary Care Nurse Name: Leonora Bai NP Position: [facility] PCO Associate Professional Member Role: PCP Address: Address: [address] [place] [id number] Name: Keily Ortega RN Position: [facility] RN Member Role: Primary Care Nurse Name: Nichole Pichardo RN Position: [facility] RN Member Role: Primary Care Nurse Name: Melvin Whitfield RN Position: [facility] Nurse Member Role: Primary Care Nurse Name: Phuong Berkowitz RN Position: [facility] RN Member Role: Primary Care Nurse Name: Joselyn Rain RN Position: [facility] Hospital Furniture Manager Member Role: Primary Care Nurse Care Team Related Persons Name: IRA ROMERO Address: home [address] [place] [address] Name: JHON LARSON Address: [address] [place] [address] Name: JHON LASRON Address: [address] [place] [address] Name: GALO CATALAN Name: NANCY CATALAN Address: home [address] [place] [address]
--- OUTSIDE RECORDS SUMMARY | 2023-03-25 08:32 | XMS_ITS | Continuity of Care Document ---
Author Name Unknown Organization [facility] Address [address] [place] [address]- Care Team Providers Care Compliance Quality Performance Analyst Name Role Phone Richardson OCCUPATIONAL THERAPY DIRECTOR, Leonora Pérez Primary Care Physician [phone] Encounter [facility] Date(s): 12/10/21 - 01/09/22 [facility] [address] [place] [address]- Allergies, Adverse Reactions, Alerts Substance Reaction Severity Status morphine Active gabapentin swelling Active Lyrica dysphagia Active MetFORMIN Hydrochloride ER black tarry stool Active SEROquel body swelling - all over Act tony Immunizations Given and Recorded Vaccine Date Status Refusal Reason pneumococcal 20-valent conjugate vaccine 12/26/21 Given SARS-CoV-2 mRNA (ygspnei-[id number]) vax 05/14/21 Given influenza virus vaccine, inactivated [...] 10/22/21 9:23:00 EDT, Route to Pharmacy Electronically, [facility], Partial fill uponpatient request if the prescription is for a schedu... Start Date: 10/22/21 Status: Ordered Advair Diskus 500 mcg-50 mcg inhalation powder 1, puffs, Inhalation, 2 times a day, [id number], # 1 each, Refills 5, Tot. Refills 5, Maintenance, 05/15/21 9:20:00 EST, Powder, Route to Pharmacy Electronically, [id number], [facility], 162.5, cm, 05/10/21 14:47... Start Date: 05/15/21 Status: Ordered albuterol 0.083% inhalation solution 3 mL = 2.5 mg, Inhalation, Every 4 hours, PRN for wheezing, # 100 each, 2 Refills, Maintenance, 11/22/21 12:30:00 EDT, Solution, [facility]., 162, cm, 11/14/21 11:01:00 EDT, Height, 86, kg, 07/23/21 0:58:00 EDT, Dry Weight Start Date: 11/22/21 Status: Ordered amitriptyline 25 mg oral tablet 25 mg, 1, tablet, By Mouth, Daily at bedtime, # 30 tablet, Refills 2, Tot. Refills 2, Maintenance, 08/30/21 12:06:00 EDT, Route to Pharmacy Electronically, [facility], Partial fill upon patient request if the prescription is for a sche... Start Date: 08/30/21 Status: Ordered Atrovent HFA 17 mcg/inh inhalation aerosol 2 puffs, Inhalation, 4 times a day, # 12.9 Gm, 5 Refills, Maintenance, 12/26/21 10:37:00 EDT, Aerosol, [facility], Partial fill upon patient request if the prescription is for a schedule II opioid drug., 162, cm, 12/26/21 10:16:00 EDT,... Start Date: 12/26/21 Status: Ordered cetirizine 10 mg oral tablet 1 tablet = 10 mg, By Mouth, Daily, # 30 tablet, 5 Refills, Maintenance, 08/28/21 9:07:00 EDT, Tablet, [facility]., 162, cm, 08/22/21 9:46:00 EDT, Height, 86, kg, 07/23/21 0:58:00 EDT, Dry Weight Start Date: 08/28/21 Status: Ordered cholecalciferol 5000 intl units oral capsule 1 capsule = 125 mcg, By Mouth, Daily, with food, # 100 capsule, 2 Refills, Maintenance, 02/11/21 11:17:00 EST, Capsule, [facility]/pharmacy #[id number], Partial fill upon patient request if [...] 1 Refills, Maintenance, 12/26/21 10:38:00 EDT, Cream, [facility]., 1 application Topically 2 times a [...] Daily, # 30 tablet, 5 Refills, [facility], 162, cm, 11/14/21 11:01:00EDT, Height, 86, kg, 07/23/21 0:58:00 EDT, Dry Weight Start Date: 11/19/21 Status: Ordered ibuprofen 800 mg oral tablet 800 mg, 1, tablet, By Mouth, 3 times a day, PRN, # 90 tablet, Refills 1, Tot. Refills 1, Maintenance, Pain , Mild, 01/06/22 12:22:00 EDT, Route to Pharmacy Electronically, [facility],please fill 800mg instead of 600mg, 163, [...] 3 Refills, Maintenance, 06/18/21 21:04:00 EDT, Tablet, [facility], 162.5, cm, 06/17/21 13:04:00 EDT, Height, 85.8, kg, 06/04/21 10:03:00 EST, Dry Weight Start Date: 06/18/21 Status: Ordered Lantus 100 u/ml subcutaneous solution = 50 units, Subcutaneous Injection, Daily, # 15 mL, 2 Refills, Maintenance, 01/06/22 12:07:00 EDT, Solution, [facility], ;, 163, cm, 01/03/22 11:20:00 EDT, Height, 84, kg, 01/02/22 19:36:00 EDT, Dry Weight Start Date: 01/06/22 Status: Ordered lidocaine 5% topical film 1 patch, Topically, Daily, PRN Pain , Mild, remove after 12 hours, # 13 each, 5 Refills, Maintenance, 12/26/21 10:37:00 EDT, Film, [facility]., Partial fill upon patient request if theprescription is for a schedule II opioid drug., 1 p... Start Date: 12/26/21 Status: Ordered lisinopril 20 mg oral tablet 20 mg, 1, tablet, By Mouth, Daily, # 90 tablet, Refills 3, Tot. Refills 3, Maintenance, 08/28/21 9:07:00 EDT, Route to Pharmacy Electronically, [facility], 162, cm, 08/22/21 9:46:00 EDT, Height, 86, kg, 07/23/21 0:58:00 EDT, Dry Weight Start Date: 08/28/21 Status: Ordered Melatonin 10 mg oral tablet 1 tablet = 10 mg, By Mouth, Daily at bedtime, # 30 each, 5 Refills, Maintenance, 11/14/21 11:42:00 EDT, [facility], Partial fill upon patient request if the prescription is for a schedule II opioid drug., 162, cm, 11/14/21 11:01:00 EDT... Start Date: 11/14/21 Status: Ordered mirtazapine 30 mg oral tablet 1 tablet = 30 mg, By Mouth, Daily at bedtime, Maintenance, 05/24/19 9:12:00 EST, Tablet Start Date: 05/24/19 Status: Ordered nystatin topical 350539 u/gm powder 1 application, Topically, 2 times a day, # 60 Gm, 1 Refills, Maintenance, 12/26/21 10:38:00 EDT, Powder, [facility]., Partial fill upon patient request if the prescription is for a schedule II opioid drug., 1 application Topically 2 quinton... Start Date: 12/26/21 Status: Ordered omeprazole 40 mg oral enteric coated capsule 1 capsule, By Mouth, Daily, PRN NEEDED, # 30 capsule, 2 Refills, [facility], 162, cm, 09/06/21 13:04:00 EDT, Height, 86, kg, 07/23/21 0:58:00 EDT, Dry Weight Start Date: 10/02/21 Status: Ordered oxyCODONE 5 mg oral tablet 5 mg, 1, tablet, By Mouth, 2 times a day, for 26 days, # 52 tablet, Refills 0, Tot. Refills 0, Acute 01/21/22 10:39:00 EDT, 12/26/21 10:39:00 EDT, Route to Pharmacy Electronically, [facility], Partial fill upon patient request if the p... Start Date: 12/26/21 Stop Date: 01/21/22 Status: Ordered OxyCONTIN 10 mg oral tablet, extended release 10 mg, 1, tablet, By Mouth, Every 12 hours, # 56 tablet, Refills 0, Tot. Refills 0, Maintenance, 12/23/21 17:17:00 EDT, Route to Pharmacy Electronically, [facility], Partial fill uponpatient request if the prescription is for a schedu... Start Date: 12/23/21 Stop Date: 01/20/22 Status: Ordered potassium chloride 10 mEq oral capsule, extended release 2 capsule = 20 mEq, By Mouth, Daily, do not crush or chew. with a full glass of water. with food., # 60 capsule, 0 Refills, Maintenance, 01/03/22 11:56:00 EDT, CR Capsule, [facility],Partial fill upon patient request if the pres... Start Date: 01/03/22 Stop Date: 02/02/22 Status: Ordered Senna 8.6 mg oral tablet 8.6 mg, 1, tablet, By Mouth, Daily at bedtime, # 100 tablet, Refills 11, Tot. Refills 11, Maintenance, 07/08/21 9:39:00 EDT, Route to Pharmacy Electronically, [facility], 162.5, cm, 07/08/21 8:49:00 EDT, Height, 85.8, kg, 06/04/21 10:0... Start Date: 07/08/21 Status: Ordered Tessalon Perles 100 mg oral capsule 1 capsule = 100 mg, By Mouth, 3 times a day, PRN Cough, for 14 days, # 42 capsule, 0 Refills, Acute01/17/22 11:55:00 EDT, 01/03/22 11:55:00 EDT, Capsule, [facility]., Partial fill upon patient request if the prescription is for a sched... 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 Charlene Fabian [phone] Confirmed Active Syncope and collapse Confirmed Active Tobacco dependence Confirmed Active DM2 (diabetes mellitus, type 2) Confirmed 04/03/17 Active Incontinence of urine 3 Confirmed Active 1seen on MRI 10/2016, rec repeat imaging in October [address] Abd 09/18/16 at [facility], pending MRI 3urge and stress Social History Social History Type Response Smoking Status Current every day kaitlin valle; Type: Cigarettes; Tobacco use times per day: 1/2 ppd; entered on: 12/24/17 Sex Patient Care team information Personnel Name: Richardson QUIROZ, Leonora Pérez Address: Address: [address] [place] [address]
--- OUTSIDE RECORDS SUMMARY | 2023-03-25 08:32 | XMS_ITS | Continuity of Care Document ---
Author Name Unknown Organization [facility] Address [address] [place] [address]- Care Team Providers Care Appian Developer Name Role Phone Richardson QUIROZ, Leonora Pérez Primary Care Physician Encounter [facility] Date(s): 10/27/19 - 10/27/[address] [address]- [facility] Discharge Disposition: A-D/C Home Attending Physician: Shavon GERARDO, Paty Porter Admitting Physician: Paty Sands MD Referring Physician: Not on Staff, Referring [...] 12:48:00 EST, Powder, Route to Pharmacy Electronically, [id number], [facility]/pharmacy #[id number], 158, cm, 04/26/19 9:58:00 EST, H... Start Date: 04/27/19 Status: Ordered albuterol 0.083% inhalation solution 3 mL = 2.5 mg, Inhalation, Every 4 hours, PRN for wheezing, # 100 each, 5 Refills, Maintenance, 06/27/19 14:32:00 EDT, Solution, [facility]/pharmacy #[id number], 160, cm, 06/01/19 14:08:00 [...] tablet, 5 Refills, Maintenance, 10/06/19 7:45:00EDT, Tablet, [facility]/pharmacy #[id number], 160, cm, 09/28/19 8:58:00 EDT, [...] 5 Refills, Maintenance, 04/19/19 15:40:00 EST, Tablet, [facility]/pharmacy #[id number], 158, cm, 04/04/19 15:21:00 EST, [...] 3 Refills, Maintenance, 09/02/19 10:23:00 EDT, Tablet, [facility]/pharmacy #[id number], PLEASE CANCEL LISINOPRIL, 160, cm, [...] 11/01/19 7:00:00 EDT, 10/27/19 7:30:00 EDT, Tablet, [facility]/... Start Date: 10/27/19 Stop Date: 11/01/19 [...] 5 Refills, Maintenance, 04/28/19 16:05:00 EST, Tablet, [facility]/pharmacy #[id number], 158, cm, 04/28/19 14:51:00 EST, Height, 82, kg, 04/01/19 16:10:00 EST, Dry Weight Start Date: 04/28/19 Status: Ordered Lantus 100 u/ml subcutaneous solution = 13 units, Subcutaneous Injection, Daily, # 10 mL, 11 Refills, Maintenance, 09/05/19 14:10:00 EDT,Solution, [facility]/pharmacy #[id number], 160, cm, 07/22/19 15:08:00 EDT, Height, 86.8, kg, 07/22/19 15:13:00 EDT, Dry Weight Start Date: 09/05/19 Status: Ordered lidocaine 5% topical film 1 patch, Topically, Daily, For chronic radicular back pain, # 30 patch, 5 Refills, Maintenance, 06/27/19 14:37:00 EDT, [facility]/pharmacy #[id number], 1 patch Topically [...] 6 Refills, Maintenance, 09/12/19 14:39:00 EDT, Tablet, [facility]/pharmacy #[id number], 160, cm, 07/22/19 15:08:00 EDT, [...] Maintenance, 10/06/19 7:45:00 EDT, EC Capsule, [facility]/pharmacy #[id number], cancel Ranitidine, 160,cm, 09/28/19 8:58:00 EDT, Height, 86.8, kg, ... Start Date: 10/06/19 Status: Ordered Pen Ford, 31 G x 5 mm BD Ultra [...] 05/30/19 18:52:00 EST, Route to Pharmacy Electronically, [facility]/pharmacy #[id number], 160, cm, 05/30/19 18:08:00 EST, Height, 88.9, kg, 05/23/19... Start Date: 05/30/19 Status: Ordered predniSONE 20 mg oral tablet 2 tablet = 40 mg, By Mouth, Daily, for 4 days, To begin taking the morning of 10/28/19, # 8 tablet, 0 Refills, Acute 10/31/19 23:53:00 EDT, 10/27/19 23:53:00 EDT, Tablet, [facility]/pharmacy #[id number], 163, cm, 10/27/19 21:10:00 EDT, [...] 16:12:00 EST, Route to Pharmacy Electronically, [facility]/pharmacy #[id number], 160, cm, 06/01/19 14:08:00 EST, Height, 88.9, kg, 05/23/19 22:09:00 EST,... Start Date: 06/10/19 Status: Ordered Spiriva Respimat 60 ACT 2.5 mcg/inh inhalation aerosol 2 puffs, Inhalation, Daily, # 1 each, 5 Refills, Maintenance, 04/26/19 10:30:00 EST, [facility]/pharmacy #[id number], 158, cm, 04/26/19 9:58:00 EST, Height, 82, kg, 04/01/19 16:10:00 EST, Dry Weight Start Date: 04/26/19 Status: Ordered tiZANidine 4 mg oral tablet 4 mg, 1, tablet, By Mouth, Every 8 hours, # 90 tablet, Refills 1, Tot. Refills 1, Maintenance, 09/02/19 10:12:00 EDT, Route to Pharmacy Electronically, [facility]/pharmacy #[id number], 160, cm, 07/22/19 15:08:00 EDT, [...] Range]: 1 2 3 Height 163 cm (10/27/19 6:08 AM) Weight 73 kg (10/27/19 6:08 AM) Oxygen Saturation [94-100 %] 97 % (10/27/19 7:40 AM) 98 % (10/27/19 6:08 AM) Pulse Rate [55-90 bpm] 88 bpm (10/27/19 7:40 AM) 95 bpm *H* (10/27/19 6:08 AM) Blood Pressure [90-138/55-84 mm Hg] 103/62mm Hg (10/27/19 7:40 AM) 98/67mm Hg (10/27/19 6:08 AM) Respiratory Rate [16-30 br/min] 16 br/min (10/27/19 7:40 AM) 18 br/min (10/27/19 6:54 AM) 22 br/min (10/27/19 6:08 AM) Temperature [96.8-100.4 DegF] 99.2 DegF (10/27/19 6:08 AM) Mode of Delivery (Oxygen) Room air (10/27/19 7:40 AM) Room air (10/27/19 6:08 AM) Blood pressure sites Arm, right (10/27/19 6:08 AM) Temperature Route Oral (10/27/19 6:08 AM) Dry Weight 73 kg (10/27/19 6:08 AM) Weight Obtained Via Patient/family state d (10/27/19 6:08 AM) Social History Social History Type Response Tobacco Use: Pt states she q uit smoking 1 week ago. Sex Female
--- OUTSIDE RECORDS SUMMARY | 2023-03-25 08:32 | XMS_ITS | Continuity of Care Document ---
Author Name Unknown Organization [facility] mary Address [address] [place] [address] [address] [place] [address]- Care Team Providers Care Architectural Practice Manager Name Role Phone Richardson QUIROZ, Leonora Pérez Primary Care Physician [place] [facility] [place]): 01/24/21 - 02/23/21 [facility] [address] [place] [address]- Attending Physician: Clarence Ryenaga Admitting Physician: AdmtrClarence Referring Physician: Admtr, Ar8 [...] 19:30:00 EDT, Route to Pharmacy Electronically, [id number], Partial fill upon patient request if the prescription is for a schedule II o... Start Date: 01/16/21 Status: Ordered Advair Diskus 500 mcg-50 mcg inhalation powder 1, puffs, Inhalation, 2 times a day, j45.909, # 1 each, Refills 11, Tot. Refills 11, Maintenance, 04/05/20 14:12:00 EST, Powder, Route to Pharmacy Electronically, [id number], [facility]/pharmacy #[id number], 162.56, cm, 03/27/20 11:36:00... Start Date: 04/05/20 Status: Ordered albuterol 0.083% inhalation solution 3 mL = 2.5 mg, Inhalation, Every 4 hours, PRN for wheezing, # 100 each, 2 Refills, Maintenance, 08/15/20 10:22:00 EDT, [id number] 163, cm, 08/09/20 8:45:00 EDT, Height, 84.8, kg, 06/25/20 20:28:00 EDT, Dry Weight Start Date: 08/15/20 Status: Ordered amitriptyline 50 mg oral tablet 1 tablet, By Mouth, Daily at bedtime, # 90 tablet, 1 Refills, [facility] [id number], 155, cm, 02/04/21 11:46:00 EDT, Height, 90.9, kg, 02/02/21 5:59:00 EDT, Dry Weight Start Date: 02/07/21 Status: Ordered atorvastatin 20 mg oral tablet 1 tablet = 20 mg, By Mouth, Daily, # 90 tablet, 3 Refills, Maintenance, 04/05/20 14:11:00 EST, Tablet, [facility]/pharmacy #[id number], Partial fill upon patient request if the prescription is for a schedule II opioid drug., 162.56, cm, 03/27/20 11:36:00 EST, Heig... Start Date: 04/05/20 Status: Ordered capsaicin 0.025% topical cream 1 application, Topically, 3 times a day, # 45 Gm, 3 Refills, Maintenance, 11/01/19 15:25:00 EDT, Cream, [facility]/pharmacy #[id number], 1 application Topically 3 times a day, 163, cm, 11/01/19 14:40:00 EDT, Height, 80, kg, 10/29/19 0:29:00 EDT, Dry Weight Start Date: 11/01/19 Status: Ordered cetirizine 10 mg oral tablet 1 tablet = 10 mg, By Mouth, Daily, # 30 tablet, 5 Refills, Maintenance, 06/20/20 13:18:00 EDT, Tablet, [facility]/pharmacy #[id number], 162, cm, 05/24/20 9:01:00 EST, Height, 80, kg, 04/18/20 9:48:00 EST, Dry Weight Start Date: 06/20/20 Status: Ordered cholecalciferol 5000 intl units oral capsule 1 capsule = 125 mcg, By Mouth, Daily, with food, # 100 capsule, 2 Refills, Maintenance, 02/11/21 11:17:00 EST, [facility]ule[id number] Partial fill upon patient request [...] 1 Refills, Maintenance, 12/05/20 12:42:00 EDT, Cream, [facility]/pharmacy #[id number], 1 application Topically [...] 16 mL, 1 Refills, Maintenance, [id number], 30, USE 1 SPRAY IN BOTH NOSTRILS [...] patch, 5 Refills, Maintenance, 10/11/20 8:15:00 EDT, [facility]/pharmacy #[id number], 1 patch Topically [...] 0 Refills, Maintenance, 08/15/20 15:59:00 EDT, Capsule, [facility]/pharmacy #[id number], Partial [...] 1 Refills, Maintenance, 01/31/21 14:16:00 EDT, Tablet, [facility], Partial fill upon patient request if the prescription is for a schedule II opioid drJose. Start Date: 01/31/21 Status: Ordered omeprazole 40 mg oral enteric coated capsule 1 capsule = 40 mg, By Mouth, Daily, PRN Dyspepsia, # 90 capsule, 0 Refills, Maintenance, 01/11/21 13:46:00 EDT, EC Capsule, [facility]/pharmacy #[id number], 165, cm, 12/31/20 14:56:00 EDT, Height, 87.6, kg, 12/31/20 14:56:00 EDT, Dry Weight Start Date: 01/11/21 Status: Ordered oxyCODONE 15 mg oral tablet 1 tablet = 15 mg, By Mouth, 2 times a day, for 28 days, # 56 tablet, 0 Refills, Acute 03/18/21 15:20:00 EST, 02/18/21 15:20:00 EST, [facility], Client on contract at [facility], failed Morphine, switching to oxycodone 15mg BID today 02/18/21... Start Date: 02/18/21 Stop Date: 03/18/21 Status: Ordered Senna 8.6 mg oral tablet 8.6 mg, 1, tablet, By Mouth, Daily at bedtime, # 100 tablet, Refills 11, Tot. Refills 11, Maintenance, 10/30/20 11:37:00 EDT, Route to Pharmacy Electronically, [facility]/pharmacy #[id number], 163, cm, 08/15/20 14:23:00 EDT, Height, 84.8, kg, 06/25/20 20:28:00 EDT... Start Date: 10/30/20 Status: Ordered Spiriva Respimat 60 ACT 2.5 mcg/inh inhalation aerosol 2 puffs, Inhalation, Daily, # 1 each, 11 Refills, Maintenance, 04/05/20 14:17:00 EST, [facility]/pharmacy #[id number], Partial fill [...] 12/05/20 12:45:00 EDT, Route to Pharmacy Electronically, [facility]/pharmacy #[id number], 165, cm, 11/22/20 8:40:00 EDT, Height, 84.8, kg, 06/25/20 20:28:00... Start Date: 12/05/20 Stop Date: 01/30/21 Status: Ordered Trulicity Pen 0.75 mg/0.5 mL subcutaneous solution 0.5 mL = 0.75 mg, Subcutaneous Injection, Every week, rotate injection sites, # 2 mL, 5 Refills, Maintenance, 10/31/20 15:27:00 EDT, Solution, [facility]/pharmacy #[id number], Partial fill [...] on CPAP(Confirmed) Active Panic attacks(Confirmed) Active BHN/BHCP [employer] Jb Fabian [phone](Confirmed) Active Syncope and collapse(Confirmed) Active Tobacco dependence(Confirmed) [...]
--- OUTSIDE RECORDS SUMMARY | 2023-03-25 08:32 | XMS_ITS | Continuity of Care Document ---
Author Name Unknown Organization [facility] Address [address] [place] [address]- Care Team Providers Care Echo Vascular Technologist Name Role Phone Richardson QUIROZ, Leonora Pérez Primary Care Physician [place] [facility] [id number] Date(s): 09/21/20 - 11/28/20 [facility] [address] [place], [place] [address] Attending Physician: Richardson QUIROZ, Leonora Pérez [...] 14:12:00 EST, Powder, Route to Pharmacy Electronically, [id number], [id number], 162.56, cm, 03/27/20 11:36:00... Start [...] Refills, Maintenance, 08/16/20 11:58:00 EDT, Tablet, [facility]/pharmacy #[id number], Partial fill [...] Refills, Maintenance, 07/30/20 19:49:00 EDT, Cream, [facility]/pharmacy #[id number], 1 [...] 16 mL, 1 Refills, Maintenance, [facility], 30, USE 1 SPRAY IN BOTH NOSTRILS [...] Refills, Maintenance, 10/29/20 14:07:00 EDT, Tablet, [facility]/pharmacy #[id number], 163, cm, 08/15/20 [...] 13:30:00 EST, Route to Pharmacy Electronically, [facility]/pharmacy #[id number], 162, cm, 04/21/20 11:33:00 EST, [...] Refills, Maintenance, 04/05/20 14:08:00 EST, Tablet, [facility]/pharmacy #[id number], Partial fill upon patient request if the prescription is for a schedule II opioid drug., 162.56, cm, ... Start Date: 04/05/20 Status: Ordered omeprazole 40 mg oral enteric coated capsule 1 capsule = 40 mg, By Mouth, Daily, # 90 capsule, 0 Refills, Maintenance, 08/13/20 10:34:00 EDT, ECCapsule, [facility]/pharmacy #[id number], 163, cm, 08/09/20 [...] day, for 28 days, on contract at [facility], # 56 tablet, 0 Refills, Acute 12/26/20 13:59:00 EDT, 11/28/20 13:59:00 EDT, [id number], Partial fill upon patient [...] 11:59:00 EDT, [facility] Electronically, [facility] 3urge and stress Social History Social History Type Response Tobacco Use: Pt states she q uit smoking 1 week ago. Sex
--- OUTSIDE RECORDS SUMMARY | 2023-03-25 08:32 | XMS_ITS | Continuity of Care Document ---
Author Name Unknown Organization [facility] Address [address] [place] [address]- Care Team Providers Care Boiler Mechanic Name Role Phone Richardson QUIROZ, Leonora Pérez Primary Care Physician Encounter [facility] Date(s): 12/07/19 - 01/06/20 [facility] [address] [place] [address] Attending Physician: Clarence Reynaga Admitting [...] 12:48:00 EST, Powder, Route to Pharmacy Electronically, [id number], [facility]/pharmacy #[id number], 158, cm, [...] 1 Refills, Maintenance, 12/15/19 9:12:00 EDT, Cream, [facility]/pharmacy #[id number], [...] 3 Refills, Maintenance, 12/26/19 14:21:00 EDT, Tablet, [facility]/pharmacy #[id number], [...] mL, 11 Refills, Maintenance, 12/26/19 14:22:00 EDT,Solution, [facility]/pharmacy #[id number], increased dose 12/26/19, 163, cm, 12/26/19 13:58:00 EDT, Height, 80, kg, 10/29/19 0:29:00 EDT, Dry Weight Start Date: 12/26/19 Status: Ordered lidocaine 5% topical film 1 patch, Topically, Daily, For chronic radicular back pain, # 30 patch, 5 Refills, Maintenance, 06/27/19 14:37:00 EDT, [id number], 1 patch Topically Daily,Instr:For [...] pain, for 28 days, on contract at [facility]., # 56 tablet, 0 Refills, Acute 01/27/20 17:24:00 EDT, 12/30/19 17:24:00 EDT, [facility]/pharmacy #[id number], Partial fill upon patient request, 163, cm, 12/26/19 13:58:00 EDT,... Start Date: 12/30/19 Stop Date: 01/27/20 Status: Ordered Pen [place], 31 G x 5 mm BD Ultra [...] 11/24/19 8:16:00 EDT, Route to Pharmacy Electronically, [facility]/pharmacy #[id number], 163, cm, [...] 2seen on CT Abd 09/18/[address] [facility], pending MRI 3urge and stress Social History Social History Type Response Tobacco Use: Pt states she q uit smoking 1 week ago. Sex Female
--- OUTSIDE RECORDS SUMMARY | 2023-03-25 08:32 | XMS_ITS | Continuity of Care Document ---
Author Name Unknown Organization [facility] Address [address] [place] [address] Nicolette guerrero, [address] [place] [address]- Care Team Providers Care Cisco Network Engineer Name Role Phone Richardson QUIROZ, Leonora Pérez Primary Care Physician [place] [facility] [place] [facility] [address] [place] [address] Drive, [address] [place], [place] [address] Attending Physician: Admtr, Clarence Admitting Physician: Admtr, Ar8 Referring Physician: Admtr, Ar8 Allergies, Adverse Reactions, Alerts Substance Reaction Severity Status morphine Active gabapentin swelling Active Lyrica dysphagia Active SEROquel body swelling - all over Act tony MetFORMIN Hydrochloride ER black tarry stool Active Immunizations Given and Recorded Vaccine Date Status Refusal Reason SARS-CoV-2 mRNA ([id number]) vax 05/14/21 Given influenza virus vaccine, inactivated [...] 05/31/21 15:43:00 EST, Route to Pharmacy Electronically, [facility], Partial fill upon patient request if the prescription is for a sched... Start Date: 05/31/21 Status: Ordered Advair Diskus 500 mcg-50 mcg inhalation powder 1, puffs, Inhalation, 2 times a day, j45.909, # 1 each, Refills 5, Tot. Refills 5, Maintenance, 05/15/21 9:20:00 EST, Powder, Route to Pharmacy Electronically, [id number], [facility], 162.5, cm, 05/10/21 14:47... Start Date: 05/15/21 Status: Ordered albuterol 0.083% inhalation solution 3 mL = 2.5 mg, Inhalation, Every 4 hours, PRN for wheezing, # 100 each, 2 Refills, Maintenance, 05/15/21 9:30:00 EST, Solution, [facility], 162.5, cm, 05/10/21 14:47:00 EST, Height, 90.9, kg, 02/02/21 5:59:00 EDT, Dry Weight Start Date: 05/15/21 Status: Ordered amitriptyline 75 mg oral tablet 1 tablet = 75 mg, By Mouth, Daily at bedtime, # 90 tablet, 1 Refills, Maintenance, 05/07/21 10:21:00 EST, Tablet, [facility], Partial fill upon patient request if the prescription is for a schedule II opioid drug., 162.5, cm, 03/22/21... Start Date: 05/07/21 Status: Ordered atorvastatin 20 mg oral tablet 3 tablet = 60 mg, By Mouth, Daily, # 90 tablet, 3 Refills, Maintenance, 04/05/20 14:11:00 EST, Tablet, [facility]/pharmacy #[id number], Partial fill upon patient request if the prescription is for a schedule II opioid drug., 162.56, cm, 03/27/20 11:36:00 EST, Heig... Start Date: 04/05/20 Status: Ordered capsaicin 0.025% topical cream 1 application, Topically, 3 times a day, # 45 Gm, 3 Refills, Maintenance, 11/01/19 15:25:00 EDT, Cream, [facility]/pharmacy #[id number], 1 application Topically 3 times [...] 5 Refills, Maintenance, 02/18/21 15:09:00 EST, Capsule, [facility]/pharmacy #[id number], Partial fill upon patient request. [...] DAY, # 16 mL, 1 Refills, Maintenance, [facility], 30, USE 1 SPRAY IN BOTH NOSTRILS 2 TIMES A DAY, 163, cm, 08/15/20 14:23:00 EDT, Height,84.8, kg, 06/25/20 20:28:00 EDT, Dry Weight Start Date: 09/07/20 Status: Ordered hydrochlorothiazide 12.5 mg oral tablet 1 tablet = 12.5 mg, By Mouth, Daily, TAKE 1 TABLET BY MOUTH EVERY DAY, # 30 capsule, 2 Refills, Maintenance, 05/15/21 9:20:00 EST, [facility], 162.5, cm, 05/10/21 14:47:00 EST, Height, [...] Refills, Maintenance, 06/18/21 21:04:00 EDT, Tablet, [facility], 162.5, cm, 06/17/21 13:04:00 EDT, Height, 85.8, kg, 06/04/21 10:03:00 EST, Dry Weight Start Date: 06/18/21 Status: Ordered Lantus 100 u/ml subcutaneous solution = 40 units, Subcutaneous Injection, Daily, # 12 mL, 2 Refills, Maintenance, 03/01/21 12:42:00 EST, Solution, [facility]/pharmacy #[id number], increased dose 12/26/19, 155, cm, [...] 0 Refills, Maintenance, 08/15/20 15:59:00 EDT, Capsule, [facility]/pharmacy #[id number], Partial fill upon patient request if the prescription is for a schedule II opioid drug., 163, cm, 08/15/20 14:23:00 EDT, Heig... Start Date: 08/15/20 Status: Ordered meloxicam 7.5 mg oral tablet 1 tablet = 7.5 mg, By Mouth, Daily, # 30 tablet, 1 Refills, Maintenance, 06/24/21 16:30:00 EDT, Tablet, [facility] Partial fill upon patient request if the prescription is for a schedule II opioid drug., 162.5, cm, 06/24/21 15:35:00 E... Start Date: 06/24/21 Status: Ordered mirabegron 25 mg oral tablet, extended release 1 tablet = 25 mg, By Mouth, Daily, do not crush or chew, # 30 tablet, 11 Refills, Maintenance, 12/31/20 15:58:00 EDT, ER Tablet, [facility]/pharmacy #[id number], Partial fill upon patient request [...] Refills, Maintenance, 05/09/21 10:45:00 EST, EC Capsule, [facility]., 162.5, cm, 03/22/21 14:58:00 EST, Height, 90.9,kg, 02/02/21 5:59:00 EDT, Dry Weight Start Date: 05/09/21 Status: Ordered oxyCODONE 15 mg oral tablet 1 tablet = 15 mg, By Mouth, 3 times a day, for 28 days, [facility] CHECKED PT ON CONTRACT AT [facility], # 84 tablet, 0 Refills, Acute 07/11/21 16:22:00 EDT, 06/13/21 16:22:00 EST, [facility]., 162.5, cm, 06/06/21 9:12:00 EST, Height... Start [...] tablet, 0 Refills, Maintenance, 07/01/21 15:03:00 EDT, [facility], Partial fill upon patient request if the prescription is for a schedule II opioid drug., 162.5, cm, 07/01/21 14:34:00 EDT, Height... Start Date: 07/01/21 Stop Date: 07/06/21 Status: Ordered Senna 8.6 mg oral tablet 8.6 mg, 1, tablet, By Mouth, Daily at bedtime, # 100 tablet, Refills 11, Tot. Refills 11, Maintenance, 10/30/20 11:37:00 EDT, Route to Pharmacy Electronically, [facility]/pharmacy #[id number], 163, cm, 08/15/20 14:23:00 EDT, [...] 06/24/21 19:16:00 EDT, Route to Pharmacy Electronically, [facility] 162.5, cm, 06/24/21 15:35:00 EDT, Height, 85.8, kg, ... Start Date: 06/24/21 Stop Date: 08/19/21 Status: Ordered topiramate 25 mg oral tablet 2 tablet = 50 mg, By Mouth, Daily, For nerve pain and headaches, # 60 tablet, 1 Refills, Maintenance, 07/01/21 15:05:00 EDT, Tablet, [facility], Partial fill upon patient request if the prescription is for a schedule II opioid drug., 1... Start Date: 07/01/21 Status: Ordered Trulicity Pen 1.5 mg/0.5 mL subcutaneous solution 0.5 mL = 1.5 mg, Subcutaneous Injection, Every week, # 2.5 mL, 11 Refills, Maintenance, 04/30/21 12:00:00 EST, Solution, [facility], Partial fill upon patient request if [...] on CPAP(Confirmed) Active Panic attacks(Confirmed) Active BHN/BHCP [employer] Jb Fabian [phone](Confirmed) Active Syncope and collapse(Confirmed) Active Tobacco dependence(Confirmed) [...]
--- OUTSIDE RECORDS SUMMARY | 2023-03-25 08:32 | XMS_ITS | Continuity of Care Document ---
Author Name Unknown Organization [facility] Address [address] [place] [address]- Care Team Providers Care Conductor Orchestra Name Role Phone Richardson QUIROZ, Leonora Pérez Primary Care Physician Encounter [facility] Date(s): 10/02/20 - 11/01/20 [facility] [address] [place] [address]- Allergies, Adverse Reactions, Alerts Substance Reaction Severity [...] 14:12:00 EST, Powder, Route to Pharmacy Electronically, [id number], [facility]/pharmacy #[id number], 162.56, cm, [...] 16 mL, 1 Refills, Maintenance, [facility], 30, USE 1 SPRAY IN BOTH NOSTRILS [...] mL, 11 Refills, Maintenance, 05/07/20 13:24:00 EST,Solution, [facility]/pharmacy #[id number], increased dose 12/26/19, 162, cm, 04/21/20 11:33:00 EST, Height, 80, kg, 04/18/20 9:48:00 EST, Dry Weight Start Date: 05/07/20 Status: Ordered lidocaine 5% topical film 1 patch, Topically, Daily, For chronic radicular back pain, # 30 patch, 5 Refills, Maintenance, 10/11/20 8:15:00 EDT, [facility]/pharmacy #[id number], 1 patch Topically [...] 0 Refills, Maintenance, 08/15/20 15:59:00 EDT, Capsule, [facility]/pharmacy #0488, Partial fill [...] 0 Refills, Maintenance, 08/13/20 10:34:00 EDT, ECCapsule, [facility]/pharmacy #0488, 163, cm, 08/09/20 8:45:00 [...] [facility], # 56 tablet, 0 Refills, Acute 11/27/20 11:37:00 EDT, 10/30/20 11:37:00 EDT, [facility]/pharmacy #[id number], Partial fill [...] 10/30/20 11:37:00 EDT, Route to Pharmacy Electronically, [facility]/pharmacy #[id number], 163, cm, 08/15/20 14:23:00 [...] 08/16/20 11:59:00 EDT, Route to Pharmacy Electronically, [facility]/pharmacy #[id number], 163, cm, 08/15/20 14:23:00 EDT, Height, 84.8, kg, 06/25/20 20:28:00... Start Date: 08/16/20 Stop Date: 10/11/20 Status: Ordered Trulicity Pen 0.75 mg/0.5 mL subcutaneous solution 0.5 mL = 0.75 mg, Subcutaneous Injection, Every week, rotate injection sites, # 2 mL, 5 Refills, Maintenance, 10/31/20 15:27:00 EDT, Solution, [facility]/pharmacy #[id number], Partial fill upon patient request ifthe prescription [...]
[2023-03-25 08:58] VITALS: BP 130/68; PULSE 82; RESP 12; O2SAT 97
== END 2023-03-25 08:48 | disposition home or self-care (01) ==
LOC: HO.PMCPRC 08:16
PROVIDERS: PCP Nurse Practitioner Family; Visit Provider Internal Medicine
DX: M53.3 Sacrococcygeal disorders, not elsewhere classified (principal)
CPT/HCPCS: 27096

== ENCOUNTER 2023-03-27 10:55 | Outpatient (AMB) | payer OTHER, SELFPAY ==
--- NOTE | 2023-03-27 10:59 | MHC.OFFVIS ---
Intake Vital Signs 03/27/23 11:00 Height 5 ft 4 in Blood Pressure Location Lt brachial Position Sitting Respiration 12 Pulse Source Pulse Oximeter Intake Visit Reasons: s/p Left Dx SIJ inj/lvm Allergies morphine [From MS Contin] Allergy (Verified 03/27/23 11:02) Itching quetiapine [From Seroquel] Allergy (Verified 03/27/23 11:02) Swelling Medication List - Last Reconciled 03/27/23 by Robyn Watts LPN acetaminophen 650 mg PO TID PRN albuterol sulfate 2.5 mg inhalation BID PRN amlodipine 5 mg PO DAILY cetirizine 10 mg PO DAILY cholecalciferol (vitamin D3) 125 mcg PO DAILY clonazepam 0.5 mg PO BID PRN clonidine HCl 0.3 mg PO BEDTIME dulaglutide (Trulicity) 0.75 mg subcut QWEEK duloxetine 120 mg PO DAILY empagliflozin (Jardiance) 10 mg PO DAILY fluticasone propion-salmeterol 500-50 mcg/dose (Advair Diskus) 1 ea inhalation DAILY fluticasone propionate 50 mcg/actuation 2 sprays intranasal DAILY ibuprofen 800 mg PO Q8H PRN insulin glargine (Lantus U-100 Insulin) 40 units subcut BEDTIME PRN lidocaine 5% 1 patch topical DAILY lisinopril 20 mg PO DAILY mirtazapine 30 mg PO BEDTIME omeprazole 40 mg PO DAILY oxycodone 15 mg PO TID PRN prazosin 2 mg PO BEDTIME sennosides-docusate sodium 8.6-50 mg (Senna Plus) 2 tabs PO BEDTIME tizanidine 4 mg PO TID trazodone 50 mg PO BEDTIME HPI s/p Left Dx SIJ inj/lvm HPI Details 53-year-old female who presents today to the office for a status post left diagnostic SIJ injection. The patient reports 80% relief following the procedure. The patient is amenable to proceed with cortisone injection for her pain. Past procedure: 03/25/23: Sacroiliac Joint Injection, Left: 80%relief. [facility] Medical History (Updated 03/13/23 @ 09:10 by Ayaan Maza MD) Diabetes GERD (gastroesophageal reflux disease) Bipolar 1 disorder Anxiety Depression Numbness Sleep apnea Asthma Elevated cholesterol HTN (hypertension) Surgical History (Updated 12/09/22 @ 16:11 by SYLVIE Wise) History of back surgery Hx of knee surgery Hx of carpal tunnel repair Hx of cholecystectomy Hx of section Social History Are you a primary cardiac care unit nurse to a significant other at home: No Do you presently have visiting nurse or other home services: Yes Patient Tobacco Use Status: Current everyday Tobacco user Tobacco use type: Cigarette Cigarettes Per Day: 10 Review of Systems Const All systems reviewed & are unremarkable except as noted in HPI and below Physical Exam Vital Signs: Last Vital Signs Resp 12 03/27/23 11:00 General: Appears afebrile. Alert and oriented. Mood and affect appropriate. Follows and participates in conversation appropriately. Respiratory effort is unlabored. Able to transition from sit to stand unassisted. Ambulates with bilaterally normal heel strike and toe off. Results Reviewed Results Reviewed: No imaging is available for review. Assessment & Plan Assessment & Plan (1) Sacroiliac joint dysfunction: Code(s): M53.3 - Sacrococcygeal disorders, not elsewhere classified Plan Will schedule her for a left sided therapeutic injection and right sided diagnostic injection in the sacroiliac joint at the same time. Discussed the risks and benefits of the procedure with the patient in detail. All questions were answered. The patient is on board with the plan. Justification for interventional therapy: ? Patient with average pain > 6/10 ? Patient has exhausted conservative therapy ? Patient unable to tolerate physical therapy due to pain. ? Left diagnostic injection provided 80% relief for the duration of the anesthetic phase Scribed for Dr. Maza by Trino Sanchez, medical transcriber, on 03/27/2023. I, Dr. Maza, have personally reviewed and agree with the information entered by the scribe. Coding Level of Care Code Est Pt Level 3 (57929) Diagnoses Sacroiliac joint dysfunction M53.3
[2023-03-27 11:00] VITALS: RESP 12
== END 2023-03-27 11:46 | disposition home or self-care (01) ==
PROVIDERS: PCP Nurse Practitioner Family; Visit Provider Internal Medicine
DX: M53.3 Sacrococcygeal disorders, not elsewhere classified (principal)
CPT/HCPCS: 99213

== ENCOUNTER → 2023-03-27 10:55 | Outpatient (BNVA) | payer OTHER, SELFPAY | PROVIDERS: PCP Nurse Practitioner Family; Visit Provider Internal Medicine | DX: M53.3 Sacrococcygeal disorders, not elsewhere classified (principal) | CPT/HCPCS: 99212 ==

== ENCOUNTER 2023-04-03 18:10 | Emergency (ER) | payer OTHER, SELFPAY ==
[2023-04-03 19:25] VITALS: BP 162/90; PULSE 84; RESP 16; TEMP 36.6; O2SAT 97; BMI 28.8
--- NOTE | 2023-04-03 19:33 | ED_ITS ---
HPI - General Adult General Chief complaint: Skin/Abscess/Foreign Body Stated complaint: reffered from UC, allergic reaction? Time Seen by Provider: 04/04/23 03:16 Source: patient Mode of arrival: ambulatory Limitations: no limitations History of Present Illness HPI narrative: Patient comes to the emergency room complaining of a gluteal abscess. Patient states it has been there for 3 days. Patient states she has had in the past, sometimes they needed to be drained or sometimes a ruptured band cells. Today, patient went to urgent care and patient was asked to come to emergency room for further evaluation and treatment. Patient denies any fever chills. Patient denies any rectal pain Related Data Home Medications Medication Instructions Recorded Confirmed acetaminophen 325 mg tablet 650 mg PO TID PRN Headache 09/25/22 03/27/23 albuterol sulfate 2.5 mg/3 mL 2.5 mg inhalation BID PRN Wheezing 09/25/22 03/27/23 (0.083 %) solution for nebulization amlodipine 5 mg tablet 5 mg PO DAILY 09/25/22 03/27/23 cetirizine 10 mg tablet 10 mg PO DAILY 09/25/22 03/27/23 cholecalciferol (vitamin D3) 125 125 mcg PO DAILY 09/25/22 03/27/23 mcg (5,000 unit) tablet clonazepam 0.5 mg tablet 0.5 mg PO BID PRN Anxiety 09/25/22 03/27/23 clonidine HCl 0.3 mg tablet 0.3 mg PO BEDTIME 09/25/22 03/27/23 dulaglutide 0.75 mg/0.5 mL 0.75 mg subcut QWEEK 09/25/22 03/27/23 subcutaneous pen injector (Trulicity) duloxetine 60 mg capsule,delayed 120 mg PO DAILY 09/25/22 03/27/23 release empagliflozin 10 mg tablet 10 mg PO DAILY 09/25/22 03/27/23 (Jardiance) fluticasone 500 mcg-salmeterol 50 1 ea inhalation DAILY 09/25/22 03/27/23 mcg/dose blistr powdr for inhalation (Advair Diskus) fluticasone propionate 50 2 spray intranasal DAILY 09/25/22 03/27/23 mcg/actuation nasal spray,suspension ibuprofen 800 mg tablet 800 mg PO Q8H PRN Pain 09/25/22 03/27/23 insulin glargine 100 unit/mL 40 unit subcut BEDTIME PRN 09/25/22 03/27/23 subcutaneous solution (Lantus Hyperglycemia U-100 Insulin) lidocaine 5 % topical patch 1 patch topical DAILY 09/25/22 03/27/23 lisinopril 20 mg tablet 20 mg PO DAILY 09/25/22 03/27/23 mirtazapine 30 mg tablet 30 mg PO BEDTIME 09/25/22 03/27/23 omeprazole 40 mg capsule,delayed 40 mg PO DAILY 09/25/22 03/27/23 release oxycodone 15 mg tablet 15 mg PO TID PRN Pain 09/25/22 03/27/23 prazosin 2 mg capsule 2 mg PO BEDTIME 09/25/22 03/27/23 sennosides 8.6 mg-docusate sodium 2 tab PO BEDTIME 09/25/22 03/27/23 50 mg tablet (Senna Plus) tizanidine 4 mg tablet 4 mg PO TID 09/25/22 03/27/23 trazodone 50 mg tablet 50 mg PO BEDTIME 09/25/22 03/27/23 Previous Rx's Medication Instructions Recorded ibuprofen 600 mg tablet 600 mg PO TID PRN fever or pain 04/04/23 #20 tabs oxycodone 5 mg tablet 5 mg PO BID PRN pain #7 tabs 04/04/23 sulfamethoxazole 800 1 tab PO BID #19 tabs 04/04/23 mg-trimethoprim 160 mg tablet (Bactrim DS) Allergies Allergy/AdvReac Type Severity Reaction Status Date / Time morphine [From MS Contin] Allergy Itching Verified 04/03/23 19:24 pregabalin [From Lyrica] Allergy Unknown Verified 04/03/23 19:25 quetiapine [From Seroquel] Allergy Swelling Verified 04/03/23 19:24 Review of Systems 2 Review of Systems: Constitutional : No Weight loss, No Fever, No Chills, No Night Sweats, No Fatigue, No Malaise ENT/Mouth : No Hearing loss, No Ear Pain, No Nasal Congestion, No Sinus Pain, No Hoarseness, No sore throat, No Rhinorrhea, No Swallowing Difficulty Eyes: No Eye Pain, No Swelling, No Redness, No Foreign Body, No Discharge, No Vision Changes Cardiovascular : No Chest Pain, No SOB, No Dyspnea on Exertion, No Orthopnea, No Edema, No Palpitations Respiratory : No Cough, No Sputum, No Wheezing, No Smoke Exposure, No Dyspnea Gastrointestinal : No Nausea, No Vomiting, No Diarrhea, No Constipation, No abdominal Pain, No Hematochezia, No Melena Genitourinary : no irregular bleeding, No Dysuria, No Urinary Frequency, No Hematuria, No Urinary Incontinence, No Urgency, No Flank Pain, No Urinary Flow Changes, No Hesitancy Musculoskeletal : No joint pain, No Myalgias, No Joint Swelling Skin : Complaining of an abscess in the left upper gluteus Neuro : No Weakness, No Numbness, No Paresthesias, No Loss of Consciousness, No Dizziness, No Headache Psych : No Anxiety/Panic, No Depression, No SI/HI/AH/VH, No Social Issues, Heme/Lymph: No Bruising, No Bleeding,No Lymphadenopathy Endocrine : No Polyuria, No Polydipsia, No Temperature Intolerance PMFSH Past Medical History Medical History Diabetes GERD (gastroesophageal reflux disease) Bipolar 1 disorder Anxiety Depression Numbness Sleep apnea Asthma Elevated cholesterol HTN (hypertension) Surgical History (Updated 12/09/22 @ 16:11 by SYLVIE Wise) History of back surgery Hx of knee surgery Hx of carpal tunnel repair Hx of cholecystectomy Hx of section Social History Social History Are you a primary home care giver to a significant other at home: No Do you presently have visiting nurse or other home services: Yes Patient Tobacco Use Status: Current everyday Tobacco user Tobacco use type: Cigarette Cigarettes Per Day: 10 Advance Directives: No Advance Directives Information Provided: No Physical Exam ED Vital Signs: Vital Signs - 24 hr 04/03/23 19:25 04/04/23 00:55 04/04/23 03:39 Temperature 97.8 F Pulse Rate 84 84 Respiratory Rate 16 20 22 H Blood Pressure 162/90 H 143/88 H Pulse Oximetry 97 100 Oxygen Delivery Method Room Air Room Air BMI result Body Mass Index 28.8 Const Other: Appearance: Alert. Oriented X3. No acute distress. Eyes: Pupils equal, round and reactive to light. ENT: Pharynx normal. Neck: Normal inspection. Neck supple. No lymph nodes noted. No crepitus CVS: Normal heart rate and rhythm. Pulses normal. Normal S1 and S2 Respiratory: No respiratory distress. Breath sounds normal. No Wheezing. No rales Abdomen: Soft and nontender. No rigidity. No distention. Skin: Skin warm and dry. In the left gluteus on the upper part, there is a large abscess, ultrasound shows a depth of approximately 2 cm Extremities: No lower extremity edema. No Lacerations. No Rash Neuro: Oriented X 3. No motor deficit. No sensory deficit. Moving all extremities. No slurred speech. CN 2 through 12 grossly intact Psych: calm, cooperative, normal affect Course Course Course Narrative: This is a rapid medical exam: Additional HPI, ROS, PE not included below will be deferred to primary provider. Patient is a 53-year-old female presenting to the emergency department with complaint of abscess between buttocks for the past 3 days. Denies any drainage, reports subjective fevers. Reports history of same in the past requiring incision and drainage. Area not visualized in triage due to privacy concerns. Plan: labs including cultures and lactic Medications Administered Discontinued Medications Generic Name Dose Route Start Last Admin Trade Name Gilesq PRN Reason Stop Dose Admin Hydromorphone HCl 1 mg 04/04/23 03:26 04/04/23 03:39 Hydromorphone Hcl 1 Mg/Ml Syringe IM 04/04/23 03:27 1 mg ONCE ONE Administration Protocol Procedures Abscess I/D Site: other (Left gluteus) Side (if applicable): left Local Anesthetic: lidocaine 1% Amount of anesthesia used (mL): 10 Technique: incised with blade Amount of fluid expressed (mL): 25 Sent for culture/gram staining?: No Irrigation: No Packing used?: [email or web address] Medical Decision Making Medical Decision Making [facility] Narrative: -my interpretation of labs: Normal hematology, no significant abnormality in the chemistry, lactic acid normal -patient given IM Dilaudid prior to this starting the procedure. -discussed with the patient that I recommend incision and drainage, patient agreeable. -incision drainage successful, drained a large amount of pus -patient was given p.o. ibuprofen after the procedure and Bactrim Differential Diagnosis Differential Diagnoses: The differential diagnosis associated with the presentation includes (Abscess, pilonidal cyst, cellulitis) Lab Data [facility] Lab Attestation statement: I reviewed the patient's lab results. 04/03/23 20:21 04/03/23 20:20 Labs: Lab Results 04/03/23 04/03/23 Range/Units 20:20 20:21 WBC 9.7 (4.8-10.8) X10*3/uL RBC 4.80 (4.20-5.50) X10*6/uL Hgb 14.1 (12.0-16.0) g/dl Hct 42.0 (37.0-47.0) % MCV 87.5 (80.0-98.0) fL MCH 29.4 (27.0-33.0) pg MCHC 33.6 (31.0-35.0) g/dl RDW 14.0 (11.0-16.0) % Plt Count 266 (160-400) X10*3/uL MPV 10.1 (9.4-12.3) fL Immature Gran % (Auto) 0.4 (0.0-0.4) % Neut % (Auto) 82.1 H (45-73) % Lymph % (Auto) 10.3 L (20-40) % [place] % (Auto) 6.7 (2-11) % Eos % (Auto) 0.2 (0-4) % Baso % (Auto) 0.3 (0-2) % Lymph # (Auto) 1.0 L (1.2-4.9) X10*3/uL [place] # (Auto) 0.7 (0.1-1.2) X10*3/uL Eos # (Auto) 0.0 (0.0-0.4) X10*3/uL Baso # (Auto) 0.0 (0.0-0.2) X10*3/uL Abs Immat Gran (auto) 0.04 H (0.00-0.03) X10*3/uL Absolute Neuts (auto) 8.0 (2.0-8.3) x10*3/uL Absolute Nucleated RBC 0.000 (0.0-0.012) X10*3/uL Nucleated RBC % (auto) 0.0 (0.0-0.2) /100WBC ESR 28 H (0-20) MM/HR Sodium 142 (135-145) mmol/L Potassium 3.9 (3.3-5.1) mmol/L Chloride 109 H (96-108) mmol/L Carbon Dioxide 23 (22-29) mmol/L Anion Gap 14 (12-20) BUN 8 L (9-16) mg/dL Creatinine 0.83 (0.5-1.4) mg/dL Estim Creat Clear Calc 77.4 Estimated GFR > 60 Random Glucose 195 H (60-115) mg/dL Lactic Acid 1.3 (0.5-2.0) mmol/L Calcium 9.7 (8.4-10.2) mg/dL Total Bilirubin 0.2 (0.0-1.0) mg/dL AST 16 (5-31) U/L ALT 22 (0-31) U/L Alkaline Phosphatase 118 H (39-117) U/L C-Reactive Protein 2.03 H (< or = 0.50) mg/dL Total Protein 8.2 H (6.5-8.0) g/dL Albumin 4.6 (3.5-5.0) g/dL Discharge Plan Discharge Clinical Impression: Pilonidal abscess Patient Disposition: Home, Self-Care Instructions: Pilonidal Cyst (ED) Additional Instructions: Please follow-up with your primary care physician tomorrow. If you have any worsening or new symptoms, please return to the emergency room or call 911 Prescriptions: New oxycodone 5 mg tablet 5 mg PO BID PRN (Reason: pain) Qty: 7 0RF Rx Instructions: Partial Fill upon patient request. ibuprofen 600 mg tablet 600 mg PO TID PRN (Reason: fever or pain) Qty: 20 0RF sulfamethoxazole-trimethoprim [Bactrim DS] 800-160 mg tablet 1 tab PO BID Qty: 19 0RF No Action insulin glargine [Lantus U-100 Insulin] 100 unit/mL solution 40 unit subcut BEDTIME PRN (Reason: Hyperglycemia) Patient Comments: 10 units lantus last pm Dose Change Rx Instructions: if Blood sugar is greater that 140 duloxetine 60 mg capsule,delayed release(DR/EC) 120 mg PO DAILY cetirizine 10 mg tablet 10 mg PO DAILY tizanidine 4 mg tablet 4 mg PO TID cholecalciferol (vitamin D3) 125 mcg (5,000 unit) tablet 125 mcg PO DAILY fluticasone propionate 50 mcg/actuation [place],Suspension 2 spray INTRANASAL DAILY Rx Instructions: administer into each nostril fluticasone propion-salmeterol [Advair Diskus] 500-50 mcg/dose blister with device 1 ea inhalation DAILY sennosides-docusate sodium [Senna Plus] 8.6-50 mg tablet 2 tab PO BEDTIME oxycodone 15 mg tablet 15 mg PO TID PRN (Reason: Pain) lidocaine 5 % adhesive patch,medicated 1 patch topical DAILY prazosin 2 mg capsule 2 mg PO BEDTIME clonazepam 0.5 mg tablet 0.5 mg PO BID PRN (Reason: Anxiety) mirtazapine 30 mg tablet 30 mg PO BEDTIME albuterol sulfate 2.5 mg /3 mL (0.083 %) solution for nebulization 2.5 mg inhalation BID PRN (Reason: Wheezing) Trulicity 0.75 mg/0.5 mL Pen Injector 0.75 mg SUBCUT QWEEK Rx Instructions: thursday acetaminophen 325 mg Tablet 650 mg PO TID PRN (Reason: Headache) omeprazole 40 mg Capsule,Delayed Release(Dr/Ec) 40 mg PO DAILY trazodone 50 mg tablet 50 mg PO BEDTIME ibuprofen 800 mg Tablet 800 mg PO Q8H PRN (Reason: Pain) lisinopril 20 mg tablet 20 mg PO DAILY clonidine HCl 0.3 mg tablet 0.3 mg PO BEDTIME amlodipine 5 mg tablet 5 mg PO DAILY Jardiance 10 mg tablet 10 mg PO DAILY
--- OUTSIDE RECORDS SUMMARY | 2023-04-03 19:47 | XMS_ITS | Patient Health Record ---
Author Name Unknown Organization [facility] Address [address], [place] [id number] Support Name Relationship Address Phone [facility] [address] [place] [address] Josie Poole Guarantor Unknown ALLERGIES Allergen (clinical drug ingredient) Drug/Non Drug Allergy documented on EMR Reaction Allergy Type Onset Date Status tramadol tramadol vomiting Drug Allergy Active REASON FOR REFERRAL No Information SOCIAL HISTORY Sex Assigned At : Social History Observation Description Sex Assigned At Unknown PLAN OF TREATMENT No Information Insurance Providers Payer Name Payer Address Payer Phone Subscriber Number Group Number Insured Name Patient Relationship to Insured Coverage Start Date Coverage End Date [facility] [id number] [place] [address] [id number] Josie Poole Self - patient is the insured MEDICAL (GENERAL) HISTORY Medical History History ICD Code Asthma
--- NOTE | 2023-04-03 20:33 | MHC.EDTECH ---
Patient brought into triage,first and second set of blood cultures and labs were obtained and sent to lab,patient brought back to waiting area.
[2023-04-03 20:34] LABS: MANUAL DIFF FLAG NO
[2023-04-03 20:35] LABS: Basophils Percent Auto 0.3 % (0-2); Eosinophils Percent Auto 0.2 % (0-4); Hemoglobin 14.1 g/dl (12.0-16.0); Imm Gran Abs Auto 0.04 X10*3/uL (0.00-0.03); Imm Gran Pct Auto 0.4 % (0.0-0.4); Lymphocytes Percent Auto 10.3 % (20-40); Mean Corpuscular HGB Conc 33.6 g/dl (31.0-35.0); Mean Corpuscular Hemoglobin 29.4 pg (27.0-33.0); Mean Corpuscular Volume 87.5 fL (80.0-98.0); Mean Platelet Volume 10.1 fL (9.4-12.3); Monocytes Absolute Auto 0.7 X10*3/uL (0.1-1.2); Monocytes Percent Auto 6.7 % (2-11); Neutrophils Percent Auto 82.1 % (45-73); Platelet Count 266 X10*3/uL (160-400); White Blood Count 9.7 X10*3/uL (4.8-10.8)
[2023-04-03 20:47] LABS: Lactic Acid 1.3 mmol/L (0.5-2.0)
[2023-04-03 20:51] LABS: Alanine Aminotransferase 22 U/L (0-31); Albumin Level 4.6 g/dL (3.5-5.0); Alkaline Phosphatase 118 U/L (39-117); Anion Gap 14 (12-20); Aspartate Amino Transferase 16 U/L (5-31); Bilirubin Total 0.2 mg/dL (0.0-1.0); Blood Urea Nitrogen 8 mg/dL (9-16); C Reactive Protein 2.03 mg/dL (< or = 0.50); Calcium 9.7 mg/dL (8.4-10.2); Carbon Dioxide 23 mmol/L (22-29); Chloride 109 mmol/L (96-108); Creatinine Clr Calc Pharmacy 77.4; Estimated Glomerular Filt Rate > 60; Glucose Random 195 mg/dL (60-115); Potassium 3.9 mmol/L (3.3-5.1); Sodium 142 mmol/L (135-145); Total Protein 8.2 g/dL (6.5-8.0)
[2023-04-03 21:14] LABS: Erythrocyte Sedimentation Rate 28 MM/HR (0-20)
[2023-04-04 00:55] VITALS: BP 143/88; PULSE 84; RESP 20; O2SAT 100
[2023-04-04 03:39] VITALS: RESP 22
[2023-04-04] MEDS: HYDROmorphone HCl 1 MG/ML SYRINGE IM (03:39)
--- NOTE | 2023-04-04 04:28 | MHC.EDTECH ---
This tech assisted with an I&D of an abscess to the coccyx, Cleaned area with saline and applied a gauze dressing. Patient tolerated procedure well and is awaiting discharge at this time .
[2023-04-04 04:31] VITALS: BP 170/109; PULSE 103; RESP 22; TEMP 38.3; O2SAT 95
[2023-04-04] MEDS: Sulfamethox/Trimeth 800/160 TABLET 1 TAB PO (04:32)
[2023-04-04] MEDS: Ibuprofen 600 MG TABLET PO (04:32)
[2023-04-04] MEDS: Lidocaine HCl 1 % 20 ML VIAL 30 ML INFILTRATI (04:32)
--- NOTE | 2023-04-04 04:35 | PC.NURSE ---
pt medicated according to jun. pt reports 01/13 oral temp 100.9. this rn made dr william aware per dr william current medication orders remain appropriate for temp
--- NOTE | 2023-04-04 05:03 | PC.NURSE ---
pt ambulatory at discharge pt calm and cooperative. pt provided with discharge packet. pt verbalized understanding of discharge plan
== END 2023-04-04 05:05 | disposition home or self-care (01) ==
PROVIDERS: Emergency Provider Emergency Medicine
DX: L05.91 Pilonidal cyst without abscess (principal); L02.31 Cutaneous abscess of buttock; E11.9 Type 2 diabetes mellitus without complications; I10 Essential (primary) hypertension
CPT/HCPCS: 10060; 36415; 80053; 83605; 85025; 85652; 86140; 87040; 96372; 99284; J1170

== ENCOUNTER 2023-04-30 06:15 | Outpatient (REF) | payer OTHER, SELFPAY ==
--- NOTE | ~2023-04-30 | FL_ITS ---
EXAMINATION: XR FLUOROSCOPY WITH IMAGES CLINICAL INFORMATION: Sacrococcygeal disorders, not otherwise classified. COMPARISON: Fluoroscopy dated 03/25/2023. TECHNIQUE: Fluoroscopy Supervised By: Caren Rebollar. Fluoroscopy Time: 14.6 seconds. Cumulative Dose: 3.47 mGy. DAP: 0.372 Gycm2. Images: 2. FINDINGS: The submitted images demonstrate needle placement projecting over the sacrum. FL/FL guidance in treatment room IMPRESSION: Preoperative fluoroscopic guidance is provided during pain management procedure. Please see the patient's Operative Report for full procedural details.
== END 2023-04-30 06:16 | disposition home or self-care (01) ==
LOC: CF 06:15
PROVIDERS: Visit Provider Internal Medicine
DX: M53.3 Sacrococcygeal disorders, not elsewhere classified (principal)
CPT/HCPCS: 27096; J2795; J3301; Q9967

== ENCOUNTER 2023-04-30 09:56 | Outpatient (AMB) | payer OTHER, SELFPAY ==
[2023-04-30 10:40] VITALS: BP 112/77; PULSE 69; O2SAT 96
--- NOTE | 2023-04-30 10:40 | MHC.OFFVIS ---
Intake Vital Signs 04/30/23 10:40 Height 5 ft 4 in BP 112/77 Blood Pressure Location Rt brachial Position Sitting Pulse 69 Pulse Source Doppler Pulse Oximetry (%) 96 Oxygen Delivery Method Room Air Intake Visit Reasons: Right Dx SIJ, Left theraputic SIJ Allergies morphine [From MS Contin] Allergy (Verified 04/03/23 19:24) Itching pregabalin [From Lyrica] Allergy (Verified 04/03/23 19:25) Unknown quetiapine [From Seroquel] Allergy (Verified 04/03/23 19:24) Swelling HPI Right Dx SIJ, Left theraputic SIJ HPI Details Patient presents for scheduled procedure. Denies any recent cough, cold, infection, fever or other significant changes in medical history since last office visit. [facility] Medical History Diabetes GERD (gastroesophageal reflux disease) Bipolar 1 disorder Anxiety Depression Numbness Sleep apnea Asthma Elevated cholesterol HTN (hypertension) Surgical History (Updated 12/09/22 @ 16:11 by SYLVIE Wise) History of back surgery Hx of knee surgery Hx of carpal tunnel repair Hx of cholecystectomy Hx of section Social History Are you a primary primary care nurse to a significant other at home: No Do you presently have visiting nurse or other home services: Yes Patient Tobacco Use Status: Current everyday Tobacco user Tobacco use type: Cigarette Cigarettes Per Day: 10 Physical Exam Vital Signs: Last Vital Signs Pulse 69 04/30/23 10:40 BP 112/77 04/30/23 10:40 Pulse Ox 96 04/30/23 10:40 Oxygen Delivery Method Room Air 04/30/23 10:40 Office Procedures Joint Injection/Drain Joint Injection/Drain Details: Sacroiliac Joint Injection, Bilateral The procedure, its benefits, and its risks were explained and written informed consent was obtained from the patient. Immediately prior to starting the procedure, a time-out safety check was conducted. The patient's identification, procedure name, procedure site, and procedure laterality were confirmed with the patient. ? Patient was placed prone on the fluoroscopy table and the lumbosacral area was prepped using ChloraPrep and draped with sterile drapein standard fashion. The C-arm was rotated in a contralateral oblique fashion until the medial border of the iliac crest no longer foreshadowed the posterior sacroiliac joint line. The skin and subcutaneous tissue was anesthetized using 1 mL of 0.75% plain lidocaine with 1.5-inch 25-gauge needle in the middle region of the joint line.? A 3.5-inch 22-gauge spinal needle with small bend on the tip was slowly advanced towards the joint line, coaxial to the x-ray beam. Once bony content was obtained, the needle was easily slid into the intra-articular space.? Intra-articular needle position was confirmed using lateral fluoroscopy.?The stylet was reinserted and needle was removed. A total volume of 2.5mL of solution containing 40 mg Kenalog and rest 0.5% of ropivacaine was injected intra-articularly on the left side. 2 mL of plain 0.5% ropivacaine was injected on the right side. The patient tolerated the procedure well. Patient denied any lower extremity weakness or numbness. Patient was observed for 30 min and was discharged after fulfilling the standard discharge criteria. Coding 38958 - Sacroiliac (bilateral) Procedure code (CPT) selection complete Assessment & Plan Assessment & Plan (1) Sacroiliac joint dysfunction: Code(s): M53.3 - Sacrococcygeal disorders, not elsewhere classified Plan Patient is status post right diagnostic and left therapeutic SIJ injections. Patient tolerated procedure well and was discharged home in stable condition with discharge instructions. All questions were answered. We will follow-up via telephone or in clinic to assess response to therapy. A follow-up appointment was made during today's visit. Orders: Orders FL guidance in treatment room Today M53.3 - Sacrococcygeal disorders, not elsewhere classified Coding Level of Care Code Procedure Only Diagnoses Sacroiliac joint dysfunction M53.3 CPT Codes Coding - Joint 9: 28448 - Sacroiliac ([id number])
== END 2023-04-30 10:49 | disposition home or self-care (01) ==
LOC: HO.PMCPRC 09:56
PROVIDERS: Visit Provider Internal Medicine
DX: M53.3 Sacrococcygeal disorders, not elsewhere classified (principal)
CPT/HCPCS: 27096

== ENCOUNTER 2023-05-08 11:00 | Outpatient (AMB) | payer OTHER, SELFPAY ==
--- NOTE | 2023-05-08 11:05 | MHC.OFFVIS ---
Intake Vital Signs 05/08/23 11:06 Height 5 ft 4 in Weight 171 lb BMI 29.3 BP 141/65 H Blood Pressure Location Rt brachial Position Sitting Respiration 12 Pulse 104 H Pulse Source Pulse Oximeter Pulse Oximetry (%) 93 Oxygen Delivery Method Room Air Intake Visit Reasons: s/p Righty Dx, Left theraputic SIJ Allergies morphine [From MS Contin] Allergy (Verified 05/08/23 11:07) Itching pregabalin [From Lyrica] Allergy (Verified 05/08/23 11:07) Unknown quetiapine [From Seroquel] Allergy (Verified 05/08/23 11:07) Swelling Medication List - Last Reconciled 05/08/23 by Robyn Watts LPN acetaminophen 650 mg PO TID PRN albuterol sulfate 2.5 mg inhalation BID PRN amlodipine 5 mg PO DAILY cetirizine 10 mg PO DAILY cholecalciferol (vitamin D3) 125 mcg PO DAILY clonazepam 0.5 mg PO BID PRN clonidine HCl 0.3 mg PO BEDTIME dulaglutide (Trulicity) 0.75 mg subcut QWEEK duloxetine 120 mg PO DAILY empagliflozin (Jardiance) 10 mg PO DAILY fluticasone propion-salmeterol 500-50 mcg/dose (Advair Diskus) 1 ea inhalation DAILY fluticasone propionate 50 mcg/actuation 2 sprays intranasal DAILY ibuprofen 600 mg PO TID PRN ibuprofen 800 mg PO Q8H PRN insulin glargine (Lantus U-100 Insulin) 40 units subcut BEDTIME PRN lidocaine 5% 1 patch topical DAILY lisinopril 20 mg PO DAILY mirtazapine 30 mg PO BEDTIME omeprazole 40 mg PO DAILY oxycodone 15 mg PO TID PRN oxycodone 5 mg PO BID PRN prazosin 2 mg PO BEDTIME sennosides-docusate sodium 8.6-50 mg (Senna Plus) 2 tabs PO BEDTIME sulfamethoxazole-trimethoprim 800-160 mg (Bactrim DS) 1 tab PO BID tizanidine 4 mg PO TID trazodone 50 mg PO BEDTIME HPI s/p Righty Dx, Left theraputic SIJ HPI Details 53-year-old female who presents today to the office for a status post right diagnostic left therapeutic SIJ. The patient reports 100% relief following the procedure on the right side. Her right sided pain is improved and stable now. She reports improved in her left sided pain. She is walking at home. She noticed that her pain is aggravated after prolonged walking. Past procedure: 04/30/23: Right diagnostic and left therapeutic SIJ injections: 100% relief on the right side. 03/25/23: Sacroiliac Joint Injection, Left: 80%relief. [facility] Medical History Diabetes GERD (gastroesophageal reflux disease) Bipolar 1 disorder Anxiety Depression Numbness Sleep apnea Asthma Elevated cholesterol HTN (hypertension) Surgical History (Updated 12/09/22 @ 16:11 by SYLVIE Wise) History of back surgery Hx of knee surgery Hx of carpal tunnel repair Hx of cholecystectomy Hx of section Social History Are you a primary hospice spiritual care coordinator to a significant other at home: No Do you presently have visiting nurse or other home services: Yes Patient Tobacco Use Status: Current everyday Tobacco user Tobacco use type: Cigarette Cigarettes Per Day: 10 Review of Systems Const All systems reviewed & are unremarkable except as noted in HPI and below Physical Exam Vital Signs: Last Vital Signs Pulse 104 H 05/08/23 11:06 Resp 12 05/08/23 11:06 BP 141/65 H 05/08/23 11:06 Pulse Ox 93 05/08/23 11:06 Oxygen Delivery Method Room Air 05/08/23 11:06 BMI result Body Mass Index 29.3 General: Appears afebrile. Alert and oriented. Mood and affect appropriate. Follows and participates in conversation appropriately. Respiratory effort is unlabored. Able to transition from sit to stand unassisted. Ambulates with bilaterally normal heel strike and toe off. Results Reviewed Results Reviewed: No imaging is available for review. Assessment & Plan Assessment & Plan (1) Sacroiliac joint dysfunction: Code(s): M53.3 - Sacrococcygeal disorders, not elsewhere classified Plan If the patient's pain returns or worsens, she will follow up with us in the office. For now, she has good sustained relief from the right diagnostic injection and the left therapeutic injection. We will repeat injections on the relevance side depending on the pain symptoms in the future. Scribed for Dr. Maza by Trino Sanchez, medical office technician, on 05/08/2023. I, Dr. Maza, have personally reviewed and agree with the information entered by the scribe. Coding Level of Care Code Est Pt Level 3 (17343) Diagnoses Sacroiliac joint dysfunction M53.3
[2023-05-08 11:06] VITALS: BP 141/65; PULSE 104; RESP 12; O2SAT 93; BMI 29.3
== END 2023-05-08 11:14 | disposition home or self-care (01) ==
PROVIDERS: PCP Family Medicine; Visit Provider Internal Medicine
DX: M53.3 Sacrococcygeal disorders, not elsewhere classified (principal)
CPT/HCPCS: 99213

== ENCOUNTER → 2023-05-08 11:00 | Outpatient (BNVA) | payer OTHER, SELFPAY | PROVIDERS: PCP Family Medicine; Visit Provider Internal Medicine | DX: M53.3 Sacrococcygeal disorders, not elsewhere classified (principal) | CPT/HCPCS: 99212 ==

== ENCOUNTER 2023-12-31 06:07 | Outpatient (REF) | payer OTHER, SELFPAY | END 2023-12-31 06:08 | disposition home or self-care (01) | LOC: CF 06:07 | PROVIDERS: Visit Provider Internal Medicine | DX: M53.3 Sacrococcygeal disorders, not elsewhere classified (principal) | CPT/HCPCS: 27096; J2795; J3301 ==

== ENCOUNTER 2023-12-31 10:41 | Outpatient (AMB) | payer OTHER, SELFPAY ==
--- OUTSIDE RECORDS SUMMARY | 2023-12-31 10:42 | XMS_ITS | Continuity of Care Document ---
Author Organization [facility] Address [address] [place] [address]- Care Team Providers Care Assembler Camper Name Role Phone Aaron GERARDO, Pura Mahajan Primary Care Physician [phone] Encounter [facility] Date(s): 05/20/23 - 06/19/23 [facility] [address], [place] [address] Allergies, Adverse Reactions, Alerts Substance Reaction [...] influenza virus vaccine, inactivated 02/16/17 Give n [id number] 12y+ bivalent booster vax 01/30/22 Given SARS-CoV-2 mRNA ([id number]) vax 05/14/21 Given SARS-CoV-2 (COVID-19) mRNA BNT-162b2 [...] 03/05/23 16:21:00 EST, Route to Pharmacy Electronically, [facility], Partial fill upon patient request if the prescription is for a sched... Start Date: 03/05/23 Status: Ordered Advair Diskus 500 mcg-50 mcg inhalation powder 1, inhalation, Inhalation, 2 times a day, rinse mouth and throat after use, # 60 each, Refills 11, Tot. Refills 11, Maintenance, 09/25/22 17:00:00 EDT, Inhaler, Route to Pharmacy Electronically, [id number], [facility]... Start Date: 09/25/22 Status: Ordered All Day Allergy 10 mg oral tablet 1 tablet, By Mouth, Daily, # 90 tablet, 3 Refills, Maintenance, 11/20/22 16:48:00 EDT, [facility] 163, cm, 11/20/22 16:00:00 EDT, Height, 83, kg, 02/11/22 19:19:00 EST, Dry Weight Start Date: 11/20/22 Status: Ordered amLODIPine 5 mg oral tablet 5 mg, 1, tablet, By Mouth, Daily, # 90 tablet, Refills 3, Tot. Refills 3, Maintenance, 03/05/23 16:29:00 EST, Route to Pharmacy Electronically, [facility]., Partial fill upon patient request if the prescription is for a schedule II opio... Start Date: 03/05/23 Status: Ordered atorvastatin 40 mg oral tablet 1 tablet = 40 mg, By Mouth, Daily, # 90 tablet, 3 Refills, Maintenance, 09/25/22 16:58:00 EDT, Tablet, [facility]., Partial fill upon patient request if the prescription is for a schedule II opioid drug., 163, cm, 09/25/22 16:20:00 EDT,... Start Date: 09/25/22 Status: Ordered clonazePAM 0.5 mg oral tablet 1 tablet = 0.5 mg, By Mouth, 2 times a day, 0 Refills, Maintenance, 05/07/23 17:53:00 EST, Tablet, Partial fill upon patient request if the prescription is for a schedule II opioid drug. Start Date: 05/07/23 Status: Ordered cloNIDine 0.3 mg oral tablet 1 tablet = 0.3 mg, By Mouth, Daily at bedtime, # 180 tablet, 0 Refills, Maintenance, 05/07/23 17:53:00 EST, Tablet, Partial fill upon patient request if the prescription is for a schedule II opioid drug. Start Date: 05/07/23 Status: Ordered cloNIDine 0.3 mg oral tablet via psychiatry A [facility], 0 Refills, Maintenance, 01/19/23 21:19:00 EDT, Partial fill upon patient request if the prescription is for a schedule II opioid drug. Start Date: 01/19/23 Status: Ordered clotrimazole 1% topical cream See Instructions, APPLY TOPICALLY TO AFFECTED AREA TWO TIMES A DAY FOR TWO WEEKS, # 30 Gm, 2 Refills, Maintenance, 05/07/23 17:52:00 EST[facility], APPLY TOPICALLY TO AFFECTED AREA TWO TIMES A DAY FOR TWO WEEKS, 163, cm, ... Start Date: 05/07/23 Status: Ordered diclofenac 1% topical gel 1 application, Topically, 4 times a day, # 100 Gm, 4 Refills, Maintenance, 03/05/23 16:21:00 EST, Gel, [facility] Partial fill upon patient request if the prescription is for a schedule II opioid drug., 163, cm, 03/05/23 15:09:00 EST,... Start Date: 03/05/23 Status: Ordered docusate-senna 50 mg-187 mg oral tablet 2 tablet, By Mouth, 2 times a day, PRN Constipation, # 360 tablet, 3 Refills, Maintenance, 03/05/2316:29:00 EST, Tablet, [facility] Partial fill upon patient request if the prescription is for a schedule II opioid drug., 2 tablet By... Start Date: 03/05/23 Status: Ordered duloxetine 20 mg oral enteric coated capsule 1 capsule, By Mouth, Daily at bedtime, # 30 capsule, 1 Refills, Maintenance, 05/07/23 17:40:00 EST,[facility], 163, cm, 05/07/23 16:54:00 EST, Height, 78, kg, 04/03/23 15:11:00 EST, Dry Weight Start Date: 05/07/23 Status: Ordered duloxetine 20 mg oral enteric coated capsule 1 capsule = 20 mg, By Mouth, Daily, # 180 capsule, 0 Refills, Maintenance, 05/07/23 17:53:00 EST, [facility], Partial fill upon patient request if the prescription is for a schedule II opioid drug. Start Date: 05/07/23 Status: Ordered empagliflozin 10 mg oral tablet 1 tablet = 10 mg, By Mouth, Daily in AM, # 90 tablet, 3 Refills, Maintenance, 09/25/22 17:01:00 EDT, Tablet, [facility]., Partial fill upon patient request if the prescription is for aschedule II opioid drug., 163, cm, 09/25/22 16:20:0... Start Date: 09/25/22 Status: Ordered ibuprofen 800 mg oral tablet 1, tablet, By Mouth, 3 times a day, PRN, # 90 tablet, Refills 0, Maintenance, NEEDED FOR PAIN, 05/07/23 17:40:00 EST, [facility], [facility], 163, cm, 05/07/23 16:54:00 EST, Height, 78, kg, 04/03/23 15:11:00 EST, Dry... Start Date: 05/07/23 Status: Ordered lidocaine 5% topical film 1 patch, Topically, Daily, PRN Pain , Mild, remove after 12 hours, # 13 each, 5 Refills, Maintenance, 09/25/22 16:59:00 EDT, Film, [facility]., Partial fill upon patient request if theprescription is for a schedule II opioid drug., 1 p... Start Date: 09/25/22 Status: Ordered Lidoderm 5% film 2 patch, Topically, Daily, remove patches after 12 hours; 2 patches to pain areas; can cut patches in half; do not excede 2 patches., # 60 patch, 4 Refills, Maintenance, 03/05/23 16:22:00 EST, [facility]., Partial fill upon patient requ... Start Date: 03/05/23 Stop Date: 08/02/23 Status: Ordered lisinopril 20 mg oral tablet 20 mg, 1, tablet, By Mouth, Daily, # 90 tablet, Refills 3, Tot. Refills 3, Maintenance, 11/20/22 16:48:00 EDT, Route to Pharmacy Electronically, [facility] 163, cm, 11/20/22 16:00:00EDT, Height, 83, kg, 02/11/22 19:19:00 EST, Dry Weight Start Date: 11/20/22 Status: Ordered melatonin 10 mg oral tablet 1 tablet = 10 mg, By Mouth, Daily at bedtime, PRN as needed for insomnia, # 90 tablet, 3 Refills, Maintenance, 05/07/23 17:52:00 EST, Tablet, [facility], Partial fill upon patient request if the prescription is for a schedule II opioid... Start Date: 05/07/23 Status: Ordered MELATONIN 10 MG TABS 10 Tablet MELATONIN 10 MG TABS 10 Tablet, 1, tablet, By Mouth, Daily at bedtime, # 30 tablet, 11 Refills, Maintenance, 05/07/23 17:40:00 EST, 163, cm, 05/07/23 16:54:00 EST, Height, 78, kg, 04/03/23 15:11:00 EST, Dry Weight Start Date: 05/07/23 Status: Ordered mirtazapine 30 mg oral tablet 1 tablet = 30 mg, By Mouth, Daily at bedtime, # 90 tablet, 3 Refills, Maintenance, 04/22/23 20:57:00 EST, Tablet, [facility]., Partial fill upon patient request if the prescription is for a schedule II opioid drug., 163, cm, 04/03/23 15... Start Date: 04/22/23 Status: Ordered omeprazole 40 mg oral enteric coated capsule 1 capsule, By Mouth, Daily, PRN GERD, # 90 capsule, 3 Refills, Maintenance, 04/22/23 21:00:00 EST, [facility] 163, cm, 04/03/23 15:11:00 EST, Height, 78, kg, 04/03/23 15:11:00 EST, Dry Weight Start Date: 04/22/23 Status: Ordered oxyCODONE 15 mg oral tablet 1 tablet = 15 mg, By Mouth, Every 8 hours, PRN Pain , Severe, [employer] checked. Opioid agreement at [facility], # 84 tablet, 0 Refills, Maintenance, 06/18/23 12:10:00 EDT, [facility], Partial fill upon patient request if the prescription is... Start Date: 06/18/23 Stop Date: 07/16/23 Status: Ordered prazosin 2 mg oral capsule via psychiatry A [facility], 0 Refills, Maintenance, 01/19/23 21:19:00 EDT, Partial fill upon patient request if the prescription is for a schedule II opioid drug. Start Date: 01/19/23 Status: Ordered tiZANidine 4 mg oral tablet 1, tablet, By Mouth, 3 times a day, PRN, # 90 tablet, Refills 3, Tot. Refills 3, Maintenance, NEEDED FOR SEVERE PAIN, 05/11/23 8:53:00 EST, Route to Pharmacy Electronically, [facility], 163, cm, 05/07/23 16:54:00 EST, Height, 78, kg... Start Date: 05/11/23 Status: Ordered topiramate 25 mg oral capsule 2 capsule = 50 mg, By Mouth, Daily, take 1 cap daily x 2 weeks then 2 caps daily, # 60 capsule, 4 Refills, Maintenance, 03/05/23 16:23:00 EST, Capsule, [facility]., Partial fill upon patient request if the prescription is for a schedule... Start Date: 03/05/23 Status: Ordered traZODone 50 mg oral tablet 1/2 TO 1 TABLET, By Mouth, Daily at bedtime, # 90 tablet, Refills 3, Tot. Refills 3, Maintenance, 04/22/23 20:58:00 EST, Route to Pharmacy Electronically, [facility] 163, cm, 04/03/23 15:11:00 EST, Height, 78, kg, 04/03/23 15:11:00 ES... Start Date: 04/22/23 Stop Date: 04/16/24 Status: Ordered triamcinolone 55 mcg/inh nasal spray 1 sprays = 55 mcg, Nares, Both, Daily, # 3 each, 3 Refills, Maintenance, 03/05/23 16:29:00 EST, [facility] Partial fill upon patient request if the prescription is for a schedule II opioid drug., 1 sprays Nares, Both Daily, 163, cm, 1... Start Date: 03/05/23 Status: Ordered Trulicity Pen 1.5 mg/0.5 mL subcutaneous solution = 1.5 mg, Subcutaneous Infusion, Every week, # 4 each, 11 Refills, Maintenance, 11/20/22 16:49:00 EDT, [facility]., Partial fill upon patient request if the prescription is for a schedule II opioid drug., 163, cm, 11/20/22 16:00:00 EDT,... Start Date: 11/20/22 Status: Ordered Ventolin HFA 108 mcg/inh inhalation aerosol with adapter 2 puffs, Inhalation, 4 times a day, PRN for wheezing, # 1 each, 11 Refills, Maintenance, 05/07/23 17:55:00 EST, Aerosol, [facility]., Partial fill upon patient request if the prescription is for a schedule II opioid drug., 163, cm, 02/0... Start Date: 05/07/23 Status: Ordered Problem List Condition Confirmation Course Effective Dates Status H ealth Status Informant Carpal tunnel syndrome, right Confirmed Active Anxiety Confirmed Active Chronic low back pain Confirmed Active Pancreatic lesion 1 Confirmed Active Hypertension Confirmed Active Fibromyalgia - PMR Dr Diop thought this was source/cause of pain 2 Confirmed Active Food insecurity Confirmed Active Hyperlipidemia Confirmed Active Hypokalemia Confirmed Active Lesion of liver 3 Confirmed Active Hyperactivity of bladder Confirmed Active Lumbar radiculopathy - s/p surgery, still with some L3-L4 disc protrution, stable from last MRI, 2022 Confirmed Active 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 Active Depression: Major depressive disorder/ setting of bipolar Confirmed Active Obesity Confirmed Active MARILIN on CPAP - Obstructive sleep apnea, sleep team /due Confirmed Active Panic attacks Confirmed Active 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 Sex Patient Care team information Care Team Personnel Name: Graciela Thrasher RN Position: [facility] SN RN Member Role: Primary Care Nurse Name: Stevie Angel RN Position: [facility] RN Member Role: Primary Care Nurse Name: Keily Ortega RN Position: [facility] RN Member Role: Primary Care Nurse Name: Graciela Munroe RN Position: [facility] RN Member Role: Primary Care Nurse Name: Nichole Pichardo RN Position: [facility] RN Member Role: Primary Care Nurse Name: Melvin Whitfield RN Position: [facility] AMB Nurse Member Role: Primary Care Nurse Name: Phuong Berkowitz RN Position: [facility] RN Member Role: Primary Care Nurse Name: Pura Walker MD Position: [facility] Physician - Primary Care Member Role: PCP Address: Address: [address] [place] [id number] Name: Joselyn Rain RN Position: [facility] Hospital Roofer Applicator Member Role: Primary Care Nurse Care Team Related Persons Name: IRA ROMERO Address: home [address] [place] [address] Name: JHON LARSON Address: home [address] [place] [address] Name: JHON LARSON Address: home [address] [place] [address] Name: GALO CATALAN Name: NANCY CATALAN Address: home [address] [place] [address]
--- OUTSIDE RECORDS SUMMARY | 2023-12-31 10:43 | XMS_ITS | Continuity of Care Document ---
Author Organization [facility] ter Address [address] [place] [address]- Care Team Providers Care Clinic Supervisor Name Role Phone Pura Walker MD Primary Care Physician [phone] Encounter [facility] Date(s): 05/12/23 - 06/12/[address] [address] Attending Physician: Pura Walker MD Admitting Physician: Pura Walker MD Referring Physician: Pura Walker MD Allergies, Adverse Reactions, Alerts Substance Reaction [...] influenza virus vaccine, inactivated 02/16/17 Give n [id number] 12y+ bivalent booster vax 01/30/22 Given SARS-CoV-2 mRNA ([id number]) vax 05/14/21 Given SARS-CoV-2 (COVID-19) mRNA BNT-162b2 [...] 03/05/23 16:21:00 EST, Route to Pharmacy Electronically, [facility], Partial fill upon patient request if the prescription is for a sched... Start Date: 03/05/23 Status: Ordered Advair Diskus 500 mcg-50 mcg inhalation powder 1, inhalation, Inhalation, 2 times a day, rinse mouth and throat after use, # 60 each, Refills 11, Tot. Refills 11, Maintenance, 09/25/22 17:00:00 EDT, Inhaler, Route to Pharmacy Electronically, [id number], [facility]... Start Date: 09/25/22 Status: Ordered All Day Allergy 10 mg oral tablet 1 tablet, By Mouth, Daily, # 90 tablet, 3 Refills, Maintenance, 11/20/22 16:48:00 EDT, [facility], 163, cm, 11/20/22 16:00:00 EDT, Height, 83, kg, 02/11/22 19:19:00 EST, Dry Weight Start Date: 11/20/22 Status: Ordered amLODIPine 5 mg oral tablet 5 mg, 1, tablet, By Mouth, Daily, # 90 tablet, Refills 3, Tot. Refills 3, Maintenance, 03/05/23 16:29:00 EST, Route to Pharmacy Electronically, [facility], Partial fill upon patient request if the prescription is for a schedule II opio... Start Date: 03/05/23 Status: Ordered atorvastatin 40 mg oral tablet 1 tablet = 40 mg, By Mouth, Daily, # 90 tablet, 3 Refills, Maintenance, 09/25/22 16:58:00 EDT, Tablet, [facility] Partial fill [...] Gm, 2 Refills, Maintenance, 05/07/23 17:52:00 EST, [facility] 15, APPLY TOPICALLY TO AFFECTED AREA TWO TIMES A DAY FOR TWO WEEKS, 163, cm, ... Start Date: 05/07/23 Status: Ordered diclofenac 1% topical gel 1 application, Topically, 4 times a day, # 100 Gm, 4 Refills, Maintenance, 03/05/23 16:21:00 EST, Gel, [facility] Partial fill upon patient request if the prescription is for a schedule II opioid drug., 163, cm, 03/05/23 15:09:00 EST,... Start Date: 03/05/23 Status: Ordered docusate-senna 50 mg-187 mg oral tablet 2 tablet, By Mouth, 2 times a day, PRN Constipation, # 360 tablet, 3 Refills, Maintenance, 03/05/2316:29:00 EST, Tablet, [facility] Partial fill upon patient request if the prescription is for a schedule II opioid drug., 2 tablet By... Start Date: 03/05/23 Status: Ordered duloxetine 20 mg oral enteric coated capsule 1 capsule, By Mouth, Daily at bedtime, # 30 capsule, 1 Refills, Maintenance, 05/07/23 17:40:00 EST,[facility], 163, cm, 05/07/23 16:54:00 EST, Height, [...] 3 Refills, Maintenance, 09/25/22 17:01:00 EDT, Tablet, [facility]., Partial fill upon patient request if the prescription is for aschedule II opioid drug., 163, cm, 09/25/22 16:20:0... Start Date: 09/25/22 Status: Ordered ibuprofen 800 mg oral tablet 1, tablet, By Mouth, 3 times a day, PRN, # 90 tablet, Refills 0, Maintenance, NEEDED FOR PAIN, 05/07/23 17:40:00 EST, Route to Pharmacy Electronically, [facility], 163, cm, 05/07/23 16:54:00 EST, Height, 78, kg, 04/03/23 15:11:00 EST, Dry... Start Date: 05/07/23 Status: Ordered lidocaine 5% topical film 1 patch, Topically, Daily, PRN Pain , Mild, remove after 12 hours, # 13 each, 5 Refills, Maintenance, 09/25/22 16:59:00 EDT, Film, [facility]., Partial fill upon patient request if theprescription is for a schedule II opioid drug., 1 p... Start Date: 09/25/22 Status: Ordered Lidoderm 5% film 2 patch, Topically, Daily, remove patches after 12 hours; 2 patches to pain areas; can cut patches in half; do not excede 2 patches., # 60 patch, 4 Refills, Maintenance, 03/05/23 16:22:00 EST, [facility]., Partial fill upon patient requ... Start Date: 03/05/23 Stop Date: 08/02/23 Status: Ordered lisinopril 20 mg oral tablet 20 mg, 1, tablet, By Mouth, Daily, # 90 tablet, Refills 3, Tot. Refills 3, Maintenance, 11/20/22 16:48:00 EDT, Route to Pharmacy Electronically, [facility] 163, cm, 11/20/22 16:00:00EDT, Height, 83, kg, 02/11/22 19:19:00 EST, Dry Weight Start Date: 11/20/22 Status: Ordered melatonin 10 mg oral tablet 1 tablet = 10 mg, By Mouth, Daily at bedtime, PRN as needed for insomnia, # 90 tablet, 3 Refills, Maintenance, 05/07/23 17:52:00 EST, Tablet, [facility], Partial fill upon patient [...] 3 Refills, Maintenance, 04/22/23 20:57:00 EST, Tablet, [facility]., Partial fill upon patient request if the prescription is for a schedule II opioid drug., 163, cm, 04/03/23 15... Start Date: 04/22/23 Status: Ordered omeprazole 40 mg oral enteric coated capsule 1 capsule, By Mouth, Daily, PRN GERD, # 90 capsule, 3 Refills, Maintenance, 04/22/23 21:00:00 EST, [facility] 163, cm, 04/03/23 15:11:00 EST, Height, 78, kg, 04/03/23 15:11:00 EST, Dry Weight Start Date: 04/22/23 Status: Ordered oxyCODONE 15 mg oral tablet 1 tablet = 15 mg, By Mouth, Every 8 hours, PRN Pain , Severe, [employer] checked. Opioid agreement at [facility], # 84 tablet, 0 Refills, Maintenance, 05/19/23 17:33:00 EST, [facility]., Partial fill upon patient request if the prescription is... Start Date: 05/19/23 Stop Date: 06/16/23 Status: Ordered prazosin 2 mg oral capsule [...] 05/11/23 8:53:00 EST, Route to Pharmacy Electronically, [facility], 163, cm, 05/07/23 16:54:00 EST, Height, 78, kg... Start Date: 05/11/23 Status: Ordered topiramate 25 mg oral capsule 2 capsule = 50 mg, By Mouth, Daily, take 1 cap daily x 2 weeks then 2 caps daily, # 60 capsule, 4 Refills, Maintenance, 03/05/23 16:23:00 EST, Capsule, [facility]., Partial fill upon patient request if the prescription is for a schedule... Start Date: 03/05/23 Status: Ordered traZODone 50 mg oral tablet 1/2 TO 1 TABLET, By Mouth, Daily at bedtime, # 90 tablet, Refills 3, Tot. Refills 3, Maintenance, 04/22/23 20:58:00 EST, Route to Pharmacy Electronically, [facility] 163, cm, 04/03/23 15:11:00 EST, Height, 78, kg, 04/03/23 15:11:00 ES... Start Date: 04/22/23 Stop Date: 04/16/24 Status: Ordered triamcinolone 55 mcg/inh nasal spray 1 sprays = 55 mcg, Nares, Both, Daily, # 3 each, 3 Refills, Maintenance, 03/05/23 16:29:00 EST, [facility]., Partial fill upon patient request if the prescription is for a schedule II opioid drug., 1 sprays Nares, Both Daily, 163, cm, 1... Start Date: 03/05/23 Status: Ordered Trulicity Pen 1.5 mg/0.5 mL subcutaneous solution = 1.5 mg, Subcutaneous Infusion, Every week, # 4 each, 11 Refills, Maintenance, 11/20/22 16:49:00 EDT, [facility]., Partial fill upon patient request if the prescription is for a schedule II opioid drug., 163, cm, 11/20/22 16:00:00 EDT,... Start Date: 11/20/22 Status: Ordered Ventolin HFA 108 mcg/inh inhalation aerosol with adapter 2 puffs, Inhalation, 4 times a day, PRN for wheezing, # 1 each, 11 Refills, Maintenance, 05/07/23 17:55:00 EST, Aerosol, [facility]., Partial fill upon patient request if [...] Confirmed Active Panic attacks Confirmed Active N/CP Pediatric Licensed Practical Nurse Charlene Fabian [phone] Confirmed Active Syncope and collapse Confirmed Active Tobacco dependence Confirmed Active DM2 (diabetes mellitus, type 2) Confirmed 04/03/17 Active Incontinence of urine 4 Confirmed Active 1seen on MRI 10/2016, rec repeat imaging in October 2017 pain managemnt team/ Dr Diop indicated they thought pain was fibromyalgia 3seen on CT Abd 09/18/16 at [facility], pending MRI 4urge and stress Social History Social History Type Response Tobacco Other: tobacco 2 - 3 per day (cut down 2 weeks ago). Sex Patient Care team information Care Team Personnel Name: Graciela Thrasher RN Position: [facility] RN Member Role: Primary Care Nurse Name: Stevie Angel RN Position: [facility] RN Member Role: Primary Care Nurse Name: Keily Ortega RN Position: [facility] RN Member Role: Primary Care Nurse Name: Graceila Munroe RN Position: [facility] RN Member Role: Primary Care Nurse Name: Nichole Pichardo RN Position: [facility] RN Member Role: Primary Care Nurse Name: Melvin Whitfield RN Position: [facility] AMB Nurse Member Role: Primary Care Nurse Name: Phuong Berkowitz RN Position: [facility] RN Member Role: Primary Care Nurse Name: Puar Walker MD Position: [facility] Physician - Primary Care Member Role: PCP Address: Address: [address] [place] [address] Name: Joselyn Rain RN Position: [facility] Hospital Design Eng Member Role: Primary Care Nurse Care Team Related Persons Name: IRA ROMERO Address: home [address] [place] [address] Name: JHON LARSON Address: [address] [place] [address] Name: JHON LARSON Address: [address] [place] [address] Name: GALO CATALAN Name: NANCY CATALAN Address: home [address] [place] [address]
--- OUTSIDE RECORDS SUMMARY | 2023-12-31 10:43 | XMS_ITS | Continuity of Care Document ---
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 Name Role Phone Aaron GERARDO, Pura Mahajan Primary Care Physician [phone] Encounter [facility] Date(s): 09/21/23 - 10/21/23 [facility] [address] [place] [address]- Allergies, Adverse Reactions, Alerts Substance Reaction Severity [...] influenza virus vaccine, inactivated 02/16/17 Give n [id number] 12y+ bivalent booster vax 01/30/22 Given SARS-CoV-2 mRNA ([id number]-chtn-gybes) vax 05/14/21 Given SARS-CoV-2 (COVID-19) mRNA BNT-162b2 [...] 03/05/23 16:21:00 EST, Route to Pharmacy Electronically, [facility], Partial fill upon patient request if the prescription is for a sched... Start Date: 03/05/23 Status: Ordered Advair Diskus 500 mcg-50 mcg inhalation powder 1, inhalation, Inhalation, 2 times a day, rinse mouth and throat after use, # 60 each, Refills 11, Tot. Refills 11, Maintenance, 08/13/23 20:46:00 EDT, Inhaler, Route to Pharmacy Electronically, [id number], [facility]... Start Date: 08/13/23 Status: Ordered All Day Allergy 10 mg oral tablet 1 tablet, By Mouth, Daily, # 90 tablet, 3 Refills, Maintenance, 08/13/23 20:47:00 EDT, [facility]., 163, cm, 08/13/23 18:05:00 EDT, Height, 78, kg, 04/03/23 15:11:00 EST, Dry Weight Start Date: 08/13/23 Status: Ordered amLODIPine 10 mg oral tablet 10 mg, 1, tablet, By Mouth, Daily, # 30 tablet, Refills 4, Tot. Refills 4, Maintenance, 08/13/23 19:14:00 EDT, Route to Pharmacy Electronically, [facility], Partial fill upon patient request if the prescription is for a schedule II opi... Start Date: 08/13/23 Status: Ordered atorvastatin 40 mg oral tablet 1 tablet = 40 mg, By Mouth, Daily, # 90 tablet, 3 Refills, Maintenance, 08/13/23 20:46:00 EDT, Tablet, [facility], Partial fill upon patient request if the prescription is for a schedule II opioid drug., 163, eugenia, 08/13/23 18:05:00 EDT,... Start Date: 08/13/23 Status: Ordered AutoCPAP 10-15 AutoCPAP 10-15, See Instructions, # 1 each, Refills 0, Tot. Refills 0, Maintenance, use overnight and naps from [employer], 07/29/23 15:28:00 EDT, Compound Start Date: 07/29/23 Status: Ordered clonazePAM 0.5 mg oral tablet 1 tablet = 0.5 mg, By Mouth, 2 times a day, # 60 tablet, 5 Refills, Maintenance, 07/08/23 15:30:00 EDT, Tablet, [facility] Partial fill upon patient request if the prescription is for a schedule II opioid drug., 163, eugenia, 07/08/23 9:38... Start Date: 07/08/23 Status: Ordered cloNIDine 0.3 mg oral tablet 1 tablet = 0.3 mg, By Mouth, Daily at bedtime, # 180 tablet, 0 Refills, Maintenance, 05/07/23 17:53:00 EST, Tablet, Partial fill upon patient request if the prescription is for a schedule II opioid drug. Start Date: 05/07/23 Status: Ordered clotrimazole 1% topical cream See Instructions, APPLY TOPICALLY TO AFFECTED AREA TWO TIMES A DAY FOR TWO WEEKS, # 30 Gm, 2 Refills, Maintenance, 05/07/23 17:52:00 EST, [facility] 15, APPLY TOPICALLY TO AFFECTED AREA TWO TIMES A DAY FOR TWO WEEKS, 163, eugenia, ... Start Date: 05/07/23 Status: Ordered diclofenac 1% topical gel 1 application, Topically, 4 times a day, # 100 Gm, 4 Refills, Maintenance, 03/05/23 16:21:00 EST, Gel, [facility] Partial fill upon patient request if the prescription is for a schedule II opioid drug., 163, eugenia, 03/05/23 15:09:00 EST,... Start Date: 03/05/23 Status: Ordered docusate-senna 50 mg-187 mg oral tablet 2 tablet, By Mouth, 2 times a day, PRN Constipation, # 360 tablet, 3 Refills, Maintenance, 03/05/2316:29:00 EST, Tablet, [facility]., Partial fill upon patient request if the prescription is for a schedule II opioid drug., 2 tablet By... Start Date: 03/05/23 Status: Ordered duloxetine 20 mg oral enteric coated capsule 1 capsule, By Mouth, Daily at bedtime, # 30 capsule, 1 Refills, Maintenance, 05/07/23 17:40:00 EST,[facility], 163, cm, 05/07/23 16:54:00 EST, Height, 78, kg, 04/03/23 15:11:00 EST, Dry Weight Start Date: 05/07/23 Status: Ordered empagliflozin 10 mg oral tablet 1 tablet = 10 mg, By Mouth, Daily in AM, # 90 tablet, 3 Refills, Maintenance, 08/13/23 20:46:00 EDT, Tablet, [facility]., Partial fill upon patient request if the prescription is for aschedule II opioid drug., 163, cm, 08/13/23 18:05:0... Start Date: 08/13/23 Status: Ordered Freestyle Lite Lancets See Instructions, # 200 each, Refills 11, Tot. Refills 11, Maintenance, Check POC daily and if symptoms of sweats, dizziness, confusion,, DX E11.9, 08/13/23 20:46:00 EDT, Compound, 163, cm, 08/13/23 18:05:00 EDT, Height, 78, kg, 04/03/23 15:11:00 EST,... Start Date: 08/13/23 Status: Ordered Freestyle Lite Monitor See Instructions, # 1 each, Refills 11, Tot. Refills 11, Maintenance, Check POC daily and if symptoms of sweats, dizziness, confusion, DX E11.9, Z79.4, 08/13/23 20:46:00 EDT, Compound, 163, cm, 08/13/23 18:05:00 EDT, Height, 78, kg, 04/03/23 15:11:00... Start Date: 08/13/23 Status: Ordered Freestyle Lite Test Strips See Instructions, # 200 each, Refills 11, Tot. Refills 11, Maintenance, Check POC daily and if symptoms of sweats, dizziness, confusion, DX E11.9, 08/13/23 20:46:00 EDT, Compound, 163, cm, 08/13/23 18:05:00 EDT, Height, 78, kg, 04/03/23 15:11:00 EST,... Start Date: 08/13/23 Status: Ordered ipratropium nasal 21 mcg/inh spray See Instructions, PRN Nasal Congestion, 1 spray each nostril BID, # 1 each, 4 Refills, Maintenance,07/29/23 15:10:00 EDT, [facility], Partial fill upon patient request if the prescription is for a schedule II opioid drug., 1 spray eac... Start Date: 07/29/23 Status: Ordered Lidoderm 5% film 2 patch, Topically, Daily, remove patches after 12 hours; 2 patches to pain areas; can cut patches in half; do not excede 2 patches., # 180 patch, 3 Refills, Maintenance, 08/13/23 19:20:00 EDT, [facility], Partial fill upon patient req... Start Date: 08/13/23 Stop Date: 08/07/24 Status: Ordered lisinopril 20 mg oral tablet 20 mg, 1, tablet, By Mouth, Daily, # 90 tablet, Refills 3, Tot. Refills 3, Maintenance, 08/13/23 20:46:00 EDT, Route to Pharmacy Electronically, [facility]., 163, cm, 08/13/23 18:05:00EDT, Height, 78, kg, 04/03/23 15:11:00 EST, Dry Weight Start Date: 08/13/23 Status: Ordered melatonin 10 mg oral tablet 1 tablet = 10 mg, By Mouth, Daily at bedtime, PRN as needed for insomnia, # 90 tablet, 3 Refills, Maintenance, 05/07/23 17:52:00 EST, Tablet, [facility], Partial fill upon patient request [...] 3 Refills, Maintenance, 04/22/23 20:57:00 EST, Tablet[facility] Partial fill upon patient request if the prescription is for a schedule II opioid drug., 163, cm, 04/03/23 15... Start Date: 04/22/23 Status: Ordered Mounjaro 2.5 mg/0.5 mL subcutaneous solution = 2.5 mg, Subcutaneous Injection, Every week, rotate injection sites; use Tirzepatide 0.25mg weeklyx 4 weeks then increase dose, # 4 each, 0 Refills, Maintenance, 08/13/23 19:13:00 EDT, Solution, [facility] fill upon patient... Start Date: 08/13/23 Status: Ordered Mounjaro 5 mg/0.5 mL subcutaneous solution = 5 mg, Subcutaneous Injection, Every week, rotate injection sites; use Tirzepatide 0.25mg weekly x4 weeks then increase dose, # 4 each, 0 Refills, Maintenance, 08/13/23 19:14:00 EDT, Solution, [facility] Partial fill upon patient re... Start Date: 08/13/23 Status: Ordered Mounjaro 5 mg/0.5 mL subcutaneous solution = 5 mg, Subcutaneous Injection, Every week, d/c dulaglutide, # 4 each, 4 Refills, Maintenance, 09/21/23 13:38:00 EDT, Solution, [facility] Partial fill upon patient request if the prescription is for a schedule II opioid drug., 163, c... Start Date: 09/21/23 Status: Ordered omeprazole 40 mg oral enteric coated capsule 1 capsule, By Mouth, Daily, PRN GERD, # 90 capsule, 3 Refills, Maintenance, 04/22/23 21:00:00 EST, [facility], 163, cm, 04/03/23 15:11:00 EST, Height, 78, kg, 04/03/23 15:11:00 EST, Dry Weight Start Date: 04/22/23 Status: Ordered oxyCODONE 15 mg oral tablet 1 tablet = 15 mg, By Mouth, Every 8 hours, PRN Pain , Severe, [facility] checked. Opioid agreement at [facility], # 84 tablet, 0 Refills, Maintenance, 10/09/23 15:23:00 EDT, [facility], Partial fill upon patient request if the prescription is... Start Date: 10/09/23 Stop Date: 11/06/23 Status: Ordered prazosin 2 mg oral capsule via psychiatry [facility], 0 Refills, Maintenance, 01/19/23 21:19:00 EDT, Partial fill upon patient request if the prescription is for a schedule II opioid drug. Start Date: 01/19/23 Status: Ordered tiZANidine 4 mg oral tablet 1, tablet, By Mouth, 3 times a day, PRN, # 90 tablet, Refills 3, Maintenance, NEEDED FOR SEVERE PAIN, 10/09/23 13:08:00 EDT, Route to Pharmacy Electronically, [facility], 163, cm, 09/14/23 14:23:00 EDT, Height, 78, kg, 04/03/23 15:11:00 E... Start Date: 10/09/23 Status: Ordered topiramate 100 mg oral tablet 1 tablet = 100 mg, By Mouth, Daily, increase dose, # 30 tablet, 4 Refills, Maintenance, 08/13/23 19:21:00 EDT, Tablet, [facility], Partial fill upon patient request if the prescription is for a schedule II opioid drug., 163, cm, ... Start Date: 08/13/23 Status: Ordered triamcinolone 55 mcg/inh nasal spray 1 sprays = 55 mcg, Nares, Both, Daily, # 3 each, 3 Refills, Maintenance, 03/05/23 16:29:00 EST, [facility], Partial fill upon patient request if the prescription is for a schedule II opioid drug., 1 sprays Nares, Both Daily, 163, cm, 1... Start Date: 03/05/23 Status: Ordered Trulicity Pen 1.5 mg/0.5 mL subcutaneous solution = 1.5 mg, Subcutaneous Infusion, Every week, # 4 each, 11 Refills, Maintenance, 08/14/23 12:21:00 EDT, [facility] fill upon patient request if the prescription is for a schedule II opioid drug., 163, cm, 08/13/23 18:05:00 EDT,... Start Date: 08/14/23 Status: Ordered Ventolin HFA 108 mcg/inh inhalation aerosol with adapter 2 puffs, Inhalation, 4 times a day, PRN for wheezing, # 1 each, 11 Refills, Maintenance, 05/07/23 17:55:00 EST, Aerosol, [facility]., Partial fill upon patient request if the prescription is for a schedule II opioid drug., 163, cm, 0... 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 Sex Patient Care team information Care Team Personnel Name: Price PETERSON, Graciela Position: [facility] SN RN Member [...] Name: Melvin Whitfield RN Position: [facility] AMB Nurse Member Role: Primary Care Nurse Name: Phuong Berkowitz RN Position: [facility] RN Member Role: Primary Care Nurse Name: Pura Walker MD Position: [facility] Physician - Primary Care Member Role: PCP Address: Address: [address] [place] [address] Name: Joselyn Rain RN Position: [facility] Hospital Material Requirements Worker Member Role: Primary Care Nurse Care Team Related Persons Name: IRA ROMERO Address: home [address] [place] [address] Name: JHON LARSON Address: home [address] [place] [address] Name: JHON LARSON Address: [address] [place] [address] Name: GALO CATALAN Name: NANCY CATALAN Address: home [address] [place] [address]
--- OUTSIDE RECORDS SUMMARY | 2023-12-31 10:43 | XMS_ITS | Continuity of Care Document ---
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 Role Phone Pura Walker MD Primary Care Physician [phone] [place] [facility] [place] - 05/29/[address] [address] Attending Physician: Clarence Reynaga Admitting Physician: AdmClarence [...] influenza virus vaccine, inactivated 02/16/17 Give n [id number] 12y+ bivalent booster vax 01/30/22 Given SARS-CoV-2 mRNA (zxccmmt-flat-ncecw) vax 05/14/21 Given SARS-CoV-2 (COVID-19) mRNA BNT-162b2 [...] 03/05/23 16:21:00 EST, Route to Pharmacy Electronically, [facility], Partial fill upon patient request if the prescription is for a sched... Start Date: 03/05/23 Status: Ordered Advair Diskus 500 mcg-50 mcg inhalation powder 1, inhalation, Inhalation, 2 times a day, rinse mouth and throat after use, # 60 each, Refills 11, Tot. Refills 11, Maintenance, 09/25/22 17:00:00 EDT, Inhaler, Route to Pharmacy Electronically, [id number], [facility]-... Start Date: 09/25/22 Status: Ordered All Day Allergy 10 mg oral tablet 1 tablet, By Mouth, Daily, # 90 tablet, 3 Refills, Maintenance, 11/20/22 16:48:00 EDT, [facility], 163, cm, 11/20/22 16:00:00 EDT, Height, 83, kg, 02/11/22 19:19:00 EST, Dry Weight Start Date: 11/20/22 Status: Ordered amLODIPine 5 mg oral tablet 5 mg, 1, tablet, By Mouth, Daily, # 90 tablet, Refills 3, Tot. Refills 3, Maintenance, 03/05/23 16:29:00 EST, Route to Pharmacy Electronically, [facility], Partial fill upon patient request [...] Gm, 2 Refills, Maintenance, 05/07/23 17:52:00 EST, [facility] 15, APPLY TOPICALLY TO AFFECTED AREA TWO TIMES A DAY FOR TWO WEEKS, 163, cm, ... Start Date: 05/07/23 Status: Ordered diclofenac 1% topical gel 1 application, Topically, 4 times a day, # 100 Gm, 4 Refills, Maintenance, 03/05/23 16:21:00 EST, Gel, [facility] Partial fill upon patient request if the prescription is for a schedule II opioid drug., 163, cm, 03/05/23 15:09:00 EST,... Start Date: 03/05/23 Status: Ordered docusate-senna 50 mg-187 mg oral tablet 2 tablet, By Mouth, 2 times a day, PRN Constipation, # 360 tablet, 3 Refills, Maintenance, 03/05/2316:29:00 EST, Tablet, [facility] Partial fill upon patient request if the prescription is for a schedule II opioid drug., 2 tablet By... Start Date: 03/05/23 Status: Ordered duloxetine 20 mg oral enteric coated capsule 1 capsule, By Mouth, Daily at bedtime, # 30 capsule, 1 Refills, Maintenance, 05/07/23 17:40:00 EST,[facility], 163, cm, 05/07/23 16:54:00 EST, [...] 3 Refills, Maintenance, 09/25/22 17:01:00 EDT, Tablet, [facility]., Partial fill upon patient request if the prescription is for aschedule II opioid drug., 163, cm, 09/25/22 16:20:0... Start Date: 09/25/22 Status: Ordered ibuprofen 800 mg oral tablet 1, tablet, By Mouth, 3 times a day, PRN, # 90 tablet, Refills 0, Maintenance, NEEDED FOR PAIN, 05/07/23 17:40:00 EST, Route to Pharmacy Electronically, [facility], 163, cm, 05/07/23 16:54:00 EST, Height, 78, kg, 04/03/23 15:11:00 EST, Dry... Start Date: 05/07/23 Status: Ordered lidocaine 5% topical film 1 patch, Topically, Daily, PRN Pain , Mild, remove after 12 hours, # 13 each, 5 Refills, Maintenance, 09/25/22 16:59:00 EDT, Film, [facility] Partial fill upon patient request if theprescription is for a schedule II opioid drug., 1 p... Start Date: 09/25/22 Status: Ordered Lidoderm 5% film 2 patch, Topically, Daily, remove patches after 12 hours; 2 patches to pain areas; can cut patches in half; do not excede 2 patches., # 60 patch, 4 Refills, Maintenance, 03/05/23 16:22:00 EST, [facility]., Partial fill upon patient requ... Start Date: 03/05/23 Stop Date: 08/02/23 Status: Ordered lisinopril 20 mg oral tablet 20 mg, 1, tablet, By Mouth, Daily, # 90 tablet, Refills 3, Tot. Refills 3, Maintenance, 11/20/22 16:48:00 EDT, Route to Pharmacy Electronically, [facility]., 163, cm, 11/20/22 16:00:00EDT, Height, 83, kg, 02/11/22 19:19:00 EST, Dry Weight Start Date: 11/20/22 Status: Ordered melatonin 10 mg oral tablet 1 tablet = 10 mg, By Mouth, Daily at bedtime, PRN as needed for insomnia, # 90 tablet, 3 Refills, Maintenance, 05/07/23 17:52:00 EST, Tablet, [facility], Partial fill upon patient request [...] 3 Refills, Maintenance, 04/22/23 20:57:00 EST, Tablet, [facility]., Partial fill upon patient request if the prescription is for a schedule II opioid drug., 163, cm, 04/03/23 15... Start Date: 04/22/23 Status: Ordered omeprazole 40 mg oral enteric coated capsule 1 capsule, By Mouth, Daily, PRN GERD, # 90 capsule, 3 Refills, Maintenance, 04/22/23 21:00:00 EST, [facility] 163, cm, 04/03/23 15:11:00 EST, Height, 78, kg, 04/03/23 15:11:00 EST, Dry Weight Start Date: 04/22/23 Status: Ordered oxyCODONE 15 mg oral tablet 1 tablet = 15 mg, By Mouth, Every 8 hours, PRN Pain , Severe, [employer] checked. Opioid agreement at [facility], # 84 tablet, 0 Refills, Maintenance, 05/19/23 17:33:00 EST, [facility], Partial fill upon patient request [...] 05/11/23 8:53:00 EST, Route to Pharmacy Electronically, [facility], 163, cm, 05/07/23 16:54:00 EST, Height, 78, kg... Start Date: 05/11/23 Status: Ordered topiramate 25 mg oral capsule 2 capsule = 50 mg, By Mouth, Daily, take 1 cap daily x 2 weeks then 2 caps daily, # 60 capsule, 4 Refills, Maintenance, 03/05/23 16:23:00 EST, Capsule, [facility]., Partial fill upon patient request if the prescription is for a schedule... Start Date: 03/05/23 Status: Ordered traZODone 50 mg oral tablet 1/2 TO 1 TABLET, By Mouth, Daily at bedtime, # 90 tablet, Refills 3, Tot. Refills 3, Maintenance, 04/22/23 20:58:00 EST, Route to Pharmacy Electronically, [facility] 163, cm, 04/03/23 15:11:00 EST, Height, 78, kg, 04/03/23 15:11:00 ES... Start Date: 04/22/23 Stop Date: 04/16/24 Status: Ordered triamcinolone 55 mcg/inh nasal spray 1 sprays = 55 mcg, Nares, Both, Daily, # 3 each, 3 Refills, Maintenance, 03/05/23 16:29:00 EST, [facility]., Partial fill upon patient request if the prescription is for a schedule II opioid drug., 1 sprays Nares, Both Daily, 163, cm, 1... Start Date: 03/05/23 Status: Ordered Trulicity Pen 1.5 mg/0.5 mL subcutaneous solution = 1.5 mg, Subcutaneous Infusion, Every week, # 4 each, 11 Refills, Maintenance, 11/20/22 16:49:00 EDT, [facility]., Partial fill upon patient request if the prescription is for a schedule II opioid drug., 163, cm, 11/20/22 16:00:00 EDT,... 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 Sex Patient Care team information Care Team Personnel Name: Graciela Thrasher RN Position: [facility] RN Member Role: Primary Care Nurse Name: Stevie Angel RN Position: [facility] RN Member Role: Primary Care Nurse Name: Keily Ortega RN Position: [facility] RN Member Role: Primary Care Nurse Name: Graciela Munroe RN Position: [facility] [...] Care Nurse Name: Pura Walker MD Position: [facility] Physician - Primary Care Member Role: PCP Address: Address: [address] [place] [address] Name: Joselyn Rain RN Position: [facility] Hospital Material Cutter Member Role: Primary Care Nurse Care Team Related Persons Name: IRA ROMERO Address: home [address] [place] [address] Name: JHON LARSON Address: [address] [place] [address] Name: JHON LARSON Address: [address] [place] [address] Name: GALO CATALAN Name: NANCY CATALAN Address: home [address] [place] [address]
--- OUTSIDE RECORDS SUMMARY | 2023-12-31 10:45 | XMS_ITS | Continuity of Care Document ---
Author Organization [facility] Address [address] [place] [address]- Care Team Providers Care Safety Security Officer Name Role Phone Aaron GERARDO, Pura Mahajan Primary Care Physician [phone] [facility] 10[facility]23 - 11/26/23 [facility] [address] [place], [place] [phone] Allergies, Adverse Reactions, Alerts Substance Reaction Severity [...] influenza virus vaccine, inactivated 02/16/17 Give n [id number] 12y+ bivalent booster vax 01/30/22 Given SARS-CoV-2 mRNA ([id number]) vax 05/14/21 Given SARS-CoV-2 (COVID-19) mRNA BNT-162b2 [...] 03/05/23 16:21:00 EST, Route to Pharmacy Electronically, [place] [...] 20:46:00 EDT, Inhaler, Route to Pharmacy Electronically, [id number], [facility]-... Start Date: 08/13/23 Status: Ordered All Day Allergy 10 mg oral tablet 1 tablet, By Mouth, Daily, # 90 tablet, 3 Refills, Maintenance, 08/13/23 20:47:00 EDT, [facility]., 163, cm, 08/13/23 18:05:00 EDT, Height, 78, kg, 04/03/23 15:11:00 EST, Dry Weight Start Date: 08/13/23 Status: Ordered amLODIPine 10 mg oral tablet 10 mg, 1, tablet, By Mouth, Daily, # 30 tablet, Refills 4, Tot. Refills 4, Maintenance, 08/13/23 19:14:00 EDT, Route to Pharmacy Electronically, [facility], Partial fill upon patient request if the prescription is for a schedule II opi... Start Date: 08/13/23 Status: Ordered atorvastatin 40 mg oral tablet 1 tablet = 40 mg, By Mouth, Daily, # 90 tablet, 3 Refills, Maintenance, 08/13/23 20:46:00 EDT, Tablet, [facility]., Partial fill upon patient request if the prescription is for a schedule II opioid drug., 163, cm, 08/13/23 18:05:00 EDT,... Start Date: 08/13/23 Status: [...] 5 Refills, Maintenance, 07/08/23 15:30:00 EDT, Tablet, [facility]., Partial fill upon [...] Gm, 2 Refills, Maintenance, 05/07/23 17:52:00 EST, [facility] 15, APPLY TOPICALLY TO AFFECTED AREA TWO TIMES A DAY FOR TWO WEEKS, 163, eugenia, ... Start Date: 05/07/23 Status: Ordered diclofenac 1% topical gel 1 application, Topically, 4 times a day, # 100 Gm, 4 Refills, Maintenance, 03/05/23 16:21:00 EST, Gel, [facility] Partial fill upon patient request if the prescription is for a schedule II opioid drug., 163, eugenia, 03/05/23 15:09:00 EST,... Start Date: 03/05/23 Status: Ordered docusate-senna 50 mg-187 mg oral tablet 2 tablet, By Mouth, 2 times a day, PRN Constipation, # 360 tablet, 3 Refills, Maintenance, 03/05/2316:29:00 EST, Tablet, [facility]., Partial fill upon patient request if the prescription is for a schedule II opioid drug., 2 tablet By... Start Date: 03/05/23 Status: Ordered duloxetine 20 mg oral enteric coated capsule 1 capsule, By Mouth, Daily at bedtime, # 30 capsule, 1 Refills, Maintenance, 05/07/23 17:40:00 EST[facility], 163, cm, 05/07/23 16:54:00 EST, Height, 78, kg, 04/03/23 15:11:00 EST, Dry Weight Start Date: 05/07/23 Status: Ordered empagliflozin 25 mg oral tablet 1 tablet = 25 mg, By Mouth, Daily in AM, # 90 tablet, 1 Refills, Maintenance, 11/06/23 14:33:00 EDT, Tablet, [facility], Partial fill upon patient request if the prescription is for aschedule II opioid drug., 163, cm, 09/14/23 14:23:0... Start Date: 11/06/23 Stop Date: 05/04/24 Status: Ordered Freestyle Lite Lancets See Instructions, [...] 1 each, 4 Refills, Maintenance,07/29/23 15:10:00 EDT, [facility], Partial [...] patch, 3 Refills, Maintenance, 08/13/23 19:20:00 EDT, [facility], Partial fill upon patient req... Start Date: 08/13/23 Stop Date: 08/07/24 Status: Ordered lisinopril 20 mg oral tablet 20 mg, 1, tablet, By Mouth, Daily, # 90 tablet, Refills 3, Tot. Refills 3, Maintenance, 08/13/23 20:46:00 EDT, Route to Pharmacy Electronically, [facility]., 163, cm, 08/13/23 18:05:00EDT, Height, 78, kg, 04/03/23 15:11:00 EST, Dry Weight Start Date: 08/13/23 Status: Ordered melatonin 10 mg oral tablet 1 tablet = 10 mg, By Mouth, Daily at bedtime, PRN as needed for insomnia, # 90 tablet, 3 Refills, Maintenance, 05/07/23 17:52:00 EST, Tablet, [facility], Partial [...] 3 Refills, Maintenance, 04/22/23 20:57:00 EST, Tablet, [facility]., Partial fill upon patient request if the prescription is for a schedule II opioid drug., 163, cm, 04/03/23 15... Start Date: 04/22/23 Status: Ordered Mounjaro 5 mg/0.5 mL subcutaneous solution = 5 mg, Subcutaneous Injection, Every week, rotate injection sites; use Tirzepatide 0.25mg weekly x4 weeks then increase dose, # 4 each, 4 Refills, Maintenance, 10/22/23 20:13:00 EDT, Solution, [facility]., Partial fill upon patient re... Start Date: 10/22/23 Status: Ordered Mounjaro 5 mg/0.5 mL subcutaneous solution = 5 mg, Subcutaneous Injection, Every week, d/c dulaglutide, # 4 each, 4 Refills, Maintenance, 09/21/23 13:38:00 EDT, Solution, [facility]., Partial fill upon patient request if the prescription is for a schedule II opioid drug., 163, c... Start Date: 09/21/23 Status: Ordered omeprazole 40 mg oral enteric coated capsule 1 capsule, By Mouth, Daily, PRN GERD, # 90 capsule, 3 Refills, Maintenance, 04/22/23 21:00:00 EST, [facility] 163, cm, 04/03/23 15:11:00 EST, Height, 78, kg, 04/03/23 15:11:00 EST, Dry Weight Start Date: 04/22/23 Status: Ordered oxyCODONE 15 mg oral tablet 1 tablet = 15 mg, By Mouth, Every 8 hours, PRN Pain , Severe, [place] checked. Opioid agreement at [facility], # 84 tablet, 0 Refills, Maintenance, 11/09/23 13:44:00 EDT, [facility]., Partial fill upon patient request if the prescription is... Start Date: 11/09/23 Stop Date: 12/07/23 Status: Ordered prazosin 2 mg oral capsule [...] 10/09/23 13:08:00 EDT, [facility], 163, cm, 09/14/23 14:23:00 EDT, Height, 78, kg, 04/03/23 15:11:00 E... Start Date: 10/09/23 Status: Ordered topiramate 100 mg oral tablet 1 tablet = 100 mg, By Mouth, Daily, increase dose, # 30 tablet, 4 Refills, Maintenance, 08/13/23 19:21:00 EDT, Tablet, [facility]., Partial fill upon patient request if the prescription is for a schedule II opioid drug., 163, cm, ... Start Date: 08/13/23 Status: Ordered triamcinolone 55 mcg/inh nasal spray 1 sprays = 55 mcg, Nares, Both, Daily, # 3 each, 3 Refills, Maintenance, 03/05/23 16:29:00 EST, [facility]., Partial fill upon patient request if the prescription is for a schedule II opioid drug., 1 sprays Nares, Both Daily, 163, cm, 1... Start Date: 03/05/23 Status: Ordered Ventolin HFA 108 mcg/inh inhalation aerosol with adapter 2 puffs, Inhalation, 4 times a day, PRN for wheezing, # 1 each, 11 Refills, Maintenance, 05/07/23 17:55:00 EST, Aerosol, [facility] Partial fill upon patient request if the prescription is for a schedule II opioid drug., 163, cm, ... Start Date: 05/07/23 Status: Ordered Problem List [...] Confirmed Active Panic attacks Confirmed Active N/CP [employer] Charlene Fabian [phone] Confirmed Active Perianal abscess Confirmed Active Syncope and collapse Confirmed Active Tobacco dependence Confirmed Active DM2 (diabetes mellitus, type 2) Confirmed 04/03/17 Active Incontinence of urine 4 Confirmed Active 1seen on MRI 10/2016, rec repeat imaging in October 2017 pain managemnt team/ Dr Diop indicated they thought pain was fibromyalgia 3seen on CT Abd 09/18/16 at [facility], pending MRI 4urge and stress Social History Social History Type Response Tobacco Other: Quit 07/2023. Sex Patient Care team information Care Team Personnel Name: Graciela Thrasher RN Position: [facility] RN Member Role: Primary Care Nurse Name: Stevie Angel RN Position: [facility] RN Member Role: Primary Care Nurse Name: Keily Ortega RN Position: [facility] RN Member Role: Primary Care Nurse Name: Graciela Munroe RN Position: [facility] RN Member Role: Primary Care Nurse Name: Nichole Pichardo RN Position: [facility] RN Member Role: Primary Care Nurse Name: Melvin Whitfield RN Position: [facility] RASHID Nurse Member Role: Primary Care Nurse Name: Phuong Berkowitz RN Position: [facility] RN Member Role: Primary Care Nurse Name: Pura Walker MD Position: [facility] Physician - Primary Care Member Role: PCP Address: Address: [address] [place] [address] [place] [address]- Name: Joselyn Rain RN Position: [facility] Lab[employer] Member Role: Primary Care Nurse Care Team Related Persons Name: IRA ROMERO Address: home [address] [place] [address] Name: JHON LARSON Address: [address] [place] [address] Name: JHON LARSON Address: home [address] [place] [address] Name: GLAO CATALAN Name: NANCY CATALAN Address: home [address] [place] [address]
--- OUTSIDE RECORDS SUMMARY | 2023-12-31 10:45 | XMS_ITS | Continuity of Care Document ---
Author Organization [facility] Address [address] [place] [address]- Care Team Providers Care Seasonal Warehouse Associate Name Role Phone Aaron GERARDO, Pura Mahajan Primary Care Physician [phone] [facility]): 10[facility]05/23 - 11/04/23 [facility] [address] [place], [place] [phone] Allergies, Adverse Reactions, Alerts Substance Reaction Severity [...] influenza virus vaccine, inactivated 02/16/17 Give n [id number] 12y+ bivalent booster vax 01/30/22 Given SARS-CoV-2 mRNA ([id number]) vax 05/14/21 Given SARS-CoV-2 (COVID-19) mRNA BNT-162b2 [...] 03/05/23 16:21:00 EST, Route to Pharmacy Electronically, [facility], Partial fill upon patient request if the prescription is for a sched... Start Date: 03/05/23 Status: Ordered Advair Diskus 500 mcg-50 mcg inhalation powder 1, inhalation, Inhalation, 2 times a day, rinse mouth and throat after use, # 60 each, Refills 11, Tot. Refills 11, Maintenance, 08/13/23 20:46:00 EDT, Inhaler, Route to Pharmacy Electronically, [id number], [facility]-... Start Date: 08/13/23 Status: Ordered All Day Allergy 10 mg oral tablet 1 tablet, By Mouth, Daily, # 90 tablet, 3 Refills, Maintenance, 08/13/23 20:47:00 EDT, [facility]., 163, cm, 08/13/23 18:05:00 EDT, Height, 78, kg, 04/03/23 15:11:00 EST, Dry Weight Start Date: 08/13/23 Status: Ordered amLODIPine 10 mg oral tablet 10 mg, 1, tablet, By Mouth, Daily, # 30 tablet, Refills 4, Tot. Refills 4, Maintenance, 08/13/23 19:14:00 EDT, Route to Pharmacy Electronically, [facility]., Partial fill upon patient request if the prescription is for a schedule II opi... Start Date: 08/13/23 Status: Ordered atorvastatin 40 mg oral tablet 1 tablet = 40 mg, By Mouth, Daily, # 90 tablet, 3 Refills, Maintenance, 08/13/23 20:46:00 EDT, Tablet, [facility]., Partial fill upon patient request if [...] 5 Refills, Maintenance, 07/08/23 15:30:00 EDT, Tablet, [facility] Partial fill upon patient request [...] Gm, 2 Refills, Maintenance, 05/07/23 17:52:00 EST, [facility] 15, APPLY TOPICALLY TO AFFECTED AREA TWO TIMES A DAY FOR TWO WEEKS, 163[place], ... Start Date: 05/07/23 Status: Ordered diclofenac 1% topical gel 1 application, Topically, 4 times a day, # 100 Gm, 4 Refills, Maintenance, 03/05/23 16:21:00 EST, Gel, [facility] Partial fill upon patient request if the prescription is for a schedule II opioid drug., 163[place], 03/05/23 15:09:00 EST,... Start Date: 03/05/23 Status: Ordered docusate-senna 50 mg-187 mg oral tablet 2 tablet, By Mouth, 2 times a day, PRN Constipation, # 360 tablet, 3 Refills, Maintenance, 03/05/2316:29:00 EST, Tablet, [facility]., Partial fill upon patient request if the prescription is for a schedule II opioid drug., 2 tablet By... Start Date: 03/05/23 Status: Ordered duloxetine 20 mg oral enteric coated capsule 1 capsule, By Mouth, Daily at bedtime, # 30 capsule, 1 Refills, Maintenance, 05/07/23 17:40:00 EST,[facility] 163, cm, 05/07/23 16:54:00 EST, Height, 78, kg, 04/03/23 15:11:00 EST, Dry Weight Start Date: 05/07/23 Status: Ordered empagliflozin 10 mg oral tablet 1 tablet = 10 mg, By Mouth, Daily in AM, # 90 tablet, 3 Refills, Maintenance, 08/13/23 20:46:00 EDT, Tablet, [facility], Partial fill upon patient request if [...] 1 each, 4 Refills, Maintenance,07/29/23 15:10:00 EDT, [facility], Partial fill upon patient request if the prescription is for a schedule II opioid drug., 1 spray eac... Start Date: 07/29/23 Status: Ordered Lidoderm 5% film 2 patch, Topically, Daily, remove patches after 12 hours; 2 patches to pain areas; can cut patches in half; do not excede 2 patches., # 180 patch, 3 Refills, Maintenance, 08/13/23 19:20:00 EDT, [facility], Partial fill upon patient req... Start Date: 08/13/23 Stop Date: 08/07/24 Status: Ordered lisinopril 20 mg oral tablet 20 mg, 1, tablet, By Mouth, Daily, # 90 tablet, Refills 3, Tot. Refills 3, Maintenance, 08/13/23 20:46:00 EDT, Route to Pharmacy Electronically, [facility]., 163, cm, 08/13/23 18:05:00EDT, Height, 78, kg, 04/03/23 15:11:00 EST, Dry Weight Start Date: 08/13/23 Status: Ordered melatonin 10 mg oral tablet 1 tablet = 10 mg, By Mouth, Daily at bedtime, PRN as needed for insomnia, # 90 tablet, 3 Refills, Maintenance, 05/07/23 17:52:00 EST, Tablet, [facility], Partial fill upon patient request if [...] 3 Refills, Maintenance, 04/22/23 20:57:00 EST, Tablet, [facility] Partial fill upon patient request if the prescription is for a schedule II opioid drug., 163, cm, 04/03/23 15... Start Date: 04/22/23 Status: Ordered Mounjaro 2.5 mg/0.5 mL subcutaneous solution = 2.5 mg, Subcutaneous Injection, Every week, rotate injection sites; use Tirzepatide 0.25mg weeklyx 4 weeks then increase dose, # 4 each, 0 Refills, Maintenance, 08/13/23 19:13:00 EDT, Solution, [facility] Partial fill upon patient... Start Date: 08/13/23 Status: Ordered Mounjaro 5 mg/0.5 mL subcutaneous solution = 5 mg, Subcutaneous Injection, Every week, rotate injection sites; use Tirzepatide 0.25mg weekly x4 weeks then increase dose, # 4 each, 4 Refills, Maintenance, 10/22/23 20:13:00 EDT, Solution, [facility] Partial fill upon patient re... Start Date: 10/22/23 Status: Ordered Mounjaro 5 mg/0.5 mL subcutaneous solution = 5 mg, Subcutaneous Injection, Every week, d/c dulaglutide, # 4 each, 4 Refills, Maintenance, 09/21/23 13:38:00 EDT, Solution, [facility] Partial fill upon patient request if the prescription is for a schedule II opioid drug., 163, c... Start Date: 09/21/23 Status: Ordered omeprazole 40 mg oral enteric coated capsule 1 capsule, By Mouth, Daily, PRN GERD, # 90 capsule, 3 Refills, Maintenance, 04/22/23 21:00:00 EST, [facility] 163, cm, 04/03/23 15:11:00 EST, Height, 78, kg, 04/03/23 15:11:00 EST, Dry Weight Start Date: 04/22/23 Status: Ordered oxyCODONE 15 mg oral tablet 1 tablet = 15 mg, By Mouth, Every 8 hours, PRN Pain , Severe, [employer] checked. Opioid agreement at [facility], # 84 tablet, 0 Refills, Maintenance, 10/09/23 15:23:00 EDT, [facility], Partial fill upon patient request if the prescription is... Start Date: 10/09/23 Stop Date: 11/06/23 Status: Ordered prazosin 2 mg oral capsule via psychiatry [facility], 0 Refills, Maintenance, 01/19/23 21:19:00 EDT, Partial fill upon patient request if the prescription is for a schedule II opioid drug. Start Date: 01/19/23 Status: Ordered tiZANidine 4 mg oral tablet 1, tablet, By Mouth, 3 times a day, PRN, # 90 tablet, Refills 3, Maintenance, NEEDED FOR SEVERE PAIN, 10/09/23 13:08:00 EDT, Route to Pharmacy Electronically, [facility], 163, cm, 09/14/23 14:23:00 EDT, Height, 78, kg, 04/03/23 15:11:00 E... Start Date: 10/09/23 Status: Ordered topiramate 100 mg oral tablet 1 tablet = 100 mg, By Mouth, Daily, increase dose, # 30 tablet, 4 Refills, Maintenance, 08/13/23 19:21:00 EDT, Tablet, [facility], Partial fill upon patient request if the prescription is for a schedule II opioid drug., 163, cm, ... Start Date: 08/13/23 Status: Ordered triamcinolone 55 mcg/inh nasal spray 1 sprays = 55 mcg, Nares, Both, Daily, # 3 each, 3 Refills, Maintenance, 03/05/23 16:29:00 EST, [facility]., Partial fill upon patient request if the prescription is for a schedule II opioid drug., 1 sprays Nares, Both Daily, 163, cm, 1... Start Date: 03/05/23 Status: Ordered Trulicity Pen 1.5 mg/0.5 mL subcutaneous solution = 1.5 mg, Subcutaneous Infusion, Every week, # 4 each, 11 Refills, Maintenance, 08/14/23 12:21:00 EDT, [facility] Partial fill upon patient request if the prescription is for a schedule II opioid drug., 163, cm, 08/13/23 18:05:00 EDT,... Start Date: 08/14/23 Status: Ordered Ventolin HFA 108 mcg/inh inhalation aerosol with adapter 2 puffs, Inhalation, 4 times a day, PRN for wheezing, # 1 each, 11 Refills, Maintenance, 05/07/23 17:55:00 EST, Aerosol, [facility]., Partial fill upon patient request if [...] of bipolar Confirmed Active Obesity Confirmed Active [place] on CPAP - Obstructive sleep apnea, sleep team /due Confirmed Active Panic attacks Confirmed Active BHN/BHCP Decision Unit Rn Charlene Fabian [phone] Confirmed Active Perianal abscess Confirmed Active Syncope and collapse Confirmed Active Tobacco dependence Confirmed Active DM2 (diabetes mellitus, type 2) Confirmed 04/03/17 Active Incontinence of urine 4 Confirmed Active 1seen on MRI 10/2016, rec repeat imaging in October 2017 pain managemnt team/ Dr Diop indicated they thought pain was fibromyalgia 3seen on CT [place]18[place] [facility] pending MRI 4urge and stress Social History Social History Type Response Tobacco Other: Quit 07/2023. Sex Patient Care team information Care Team Personnel Name: Graciela Thrasher RN Position: [facility] SN RN Member Role: Primary Care Nurse Name: Stevie Angel RN Position: [facility] RN Member Role: Primary Care Nurse Name: Keily Ortega RN Position: [facility] RN Member Role: Primary Care Nurse Name: Graciela Munroe RN Position: [facility] RN Member Role: Primary Care Nurse Name: Nichole Pichardo RN Position: [facility] RN Member Role: Primary Care Nurse Name: Melvin Whitfield RN Position: [facility] AMB Nurse Member Role: Primary Care Nurse Name: Phuong Berkowitz RN Position: [facility] RN Member Role: Primary Care Nurse Name: Pura Walker MD Position: [facility] Physician - Primary Care Member Role: PCP Address: Address: [address] [place] [id number] Name: Joselyn Rain RN Position: [facility] Hospital [employer] Warehouse Worker Member Role: Primary Care Nurse Care Team Related Persons Name: IRA ROMERO Address: home [address] [place] [address] Name: JHON LARSON Address: [address] [place] [address] Name: JHON LARSON Address: [address] [place] [address] Name: GALO CATALAN Name: NANCY CATALAN Address: home [address] [place] [address]
--- OUTSIDE RECORDS SUMMARY | 2023-12-31 10:46 | XMS_ITS | Continuity of Care Document ---
Author Organization [facility] Address [address] [place] [address]- Care Team Providers Care Telesales Team Leader Name Role Phone Aaron GERARDO, Pura Mahajan Primary Care Physician [facility]23 - 11/25/23 [facility] [address] [place], [place] [phone] Allergies, Adverse Reactions, Alerts Substance Reaction Severity [...] influenza virus vaccine, inactivated 02/16/17 Give n [id number] 12y+ bivalent booster vax 01/30/22 Given SARS-CoV-2 mRNA ([id number]) vax 05/14/21 Given SARS-CoV-2 (COVID-19) mRNA BNT-162b2 [...] 03/05/23 16:21:00 EST, Route to Pharmacy Electronically, [facility], Partial fill upon patient request if the prescription is for a sched... Start Date: 03/05/23 Status: Ordered Advair Diskus 500 mcg-50 mcg inhalation powder 1, inhalation, Inhalation, 2 times a day, rinse mouth and throat after use, # 60 each, Refills 11, Tot. Refills 11, Maintenance, 08/13/23 20:46:00 EDT, Inhaler, Route to Pharmacy Electronically, [id number], [facility]-... Start Date: 08/13/23 Status: Ordered All Day Allergy 10 mg oral tablet 1 tablet, By Mouth, Daily, # 90 tablet, 3 Refills, Maintenance, 08/13/23 20:47:00 EDT, [facility] 163, cm, 08/13/23 18:05:00 EDT, Height, 78, kg, 04/03/23 15:11:00 EST, Dry Weight Start Date: 08/13/23 Status: Ordered amLODIPine 10 mg oral tablet 10 mg, 1, tablet, By Mouth, Daily, # 30 tablet, Refills 4, Tot. Refills 4, Maintenance, 08/13/23 19:14:00 EDT, Route to Pharmacy Electronically, [facility], Partial fill upon patient request if the prescription is for a schedule II opi... Start Date: 08/13/23 Status: Ordered atorvastatin 40 mg oral tablet 1 tablet = 40 mg, By Mouth, Daily, # 90 tablet, 3 Refills, Maintenance, 08/13/23 20:46:00 EDT, Tablet, [facility] Partial fill upon patient request if the [...] 5 Refills, Maintenance, 07/08/23 15:30:00 EDT, Tablet, [facility] Partial fill upon patient request if the [...] Gm, 2 Refills, Maintenance, 05/07/23 17:52:00 EST, [facility] 15, APPLY TOPICALLY TO AFFECTED AREA TWO TIMES A DAY FOR TWO WEEKS, 163, eugenia, ... Start Date: 05/07/23 Status: Ordered diclofenac 1% topical gel 1 application, Topically, 4 times a day, # 100 Gm, 4 Refills, Maintenance, 03/05/23 16:21:00 EST, Gel, [facility] Partial fill upon patient request if the prescription is for a schedule II opioid drug., 163, eugenia, 03/05/23 15:09:00 EST,... Start Date: 03/05/23 Status: Ordered docusate-senna 50 mg-187 mg oral tablet 2 tablet, By Mouth, 2 times a day, PRN Constipation, # 360 tablet, 3 Refills, Maintenance, 03/05/2316:29:00 EST, Tablet, [facility] Partial fill upon patient request if the prescription is for a schedule II opioid drug., 2 tablet By... Start Date: 03/05/23 Status: Ordered duloxetine 20 mg oral enteric coated capsule 1 capsule, By Mouth, Daily at bedtime, # 30 capsule, 1 Refills, Maintenance, 05/07/23 17:40:00 EST,[facility], 163, cm, 05/07/23 16:54:00 EST, Height, 78, kg, 04/03/23 15:11:00 EST, Dry Weight Start Date: 05/07/23 Status: Ordered empagliflozin 25 mg oral tablet 1 tablet = 25 mg, By Mouth, Daily in AM, # 90 tablet, 1 Refills, Maintenance, 11/06/23 14:33:00 EDT, Tablet, [facility], Partial fill upon patient request [...] 1 each, 4 Refills, Maintenance,07/29/23 15:10:00 EDT, [facility], Partial fill upon patient request if the prescription is for a schedule II opioid drug., 1 spray eac... Start Date: 07/29/23 Status: Ordered Lidoderm 5% film 2 patch, Topically, Daily, remove patches after 12 hours; 2 patches to pain areas; can cut patches in half; do not excede 2 patches., # 180 patch, 3 Refills, Maintenance, 08/13/23 19:20:00 EDT, [facility], Partial fill upon patient req... Start Date: 08/13/23 Stop Date: 08/07/24 Status: Ordered lisinopril 20 mg oral tablet 20 mg, 1, tablet, By Mouth, Daily, # 90 tablet, Refills 3, Tot. Refills 3, Maintenance, 08/13/23 20:46:00 EDT, Route to Pharmacy Electronically, [facility] 163, cm, 08/13/23 18:05:00EDT, Height, 78, kg, 04/03/23 15:11:00 EST, Dry Weight Start Date: 08/13/23 Status: Ordered melatonin 10 mg oral tablet 1 tablet = 10 mg, By Mouth, Daily at bedtime, PRN as needed for insomnia, # 90 tablet, 3 Refills, Maintenance, 05/07/23 17:52:00 EST, Tablet, [facility], Partial fill upon patient request [...] 3 Refills, Maintenance, 04/22/23 20:57:00 EST, Tablet, [facility] Partial fill upon patient request if the prescription is for a schedule II opioid drug., 163, cm, 04/03/23 15... Start Date: 04/22/23 Status: Ordered Mounjaro 5 mg/0.5 mL subcutaneous solution = 5 mg, Subcutaneous Injection, Every week, rotate injection sites; use Tirzepatide 0.25mg weekly x4 weeks then increase dose, # 4 each, 4 Refills, Maintenance, 10/22/23 20:13:00 EDT, Solution, [facility] Partial fill upon patient re... Start Date: 10/22/23 Status: Ordered Mounjaro 5 mg/0.5 mL subcutaneous solution = 5 mg, Subcutaneous Injection, Every week, d/c dulaglutide, # 4 each, 4 Refills, Maintenance, 09/21/23 13:38:00 EDT, Solution, [facility] Partial fill upon patient request if the prescription is for a schedule II opioid drug., 163, c... Start Date: 09/21/23 Status: Ordered omeprazole 40 mg oral enteric coated capsule 1 capsule, By Mouth, Daily, PRN GERD, # 90 capsule, 3 Refills, Maintenance, 04/22/23 21:00:00 EST[facility], cm, 04/03/23 15:11:00 EST, Height, 78, kg, 04/03/23 15:11:00 EST, Dry Weight Start Date: 04/22/23 Status: Ordered oxyCODONE 15 mg oral tablet 1 tablet = 15 mg, By Mouth, Every 8 hours, PRN Pain , Severe, [employer] checked. Opioid agreement at [facility], # 84 tablet, 0 Refills, Maintenance, 11/09/23 13:44:00 EDT, [facility] Partial fill upon patient request if the [...] 10/09/23 13:08:00 EDT, [facility], [facility], 163, cm, 09/14/23 14:23:00 EDT, Height, 78, kg, 04/03/23 15:11:00 E... Start Date: 10/09/23 Status: Ordered topiramate 100 mg oral tablet 1 tablet = 100 mg, By Mouth, Daily, increase dose, # 30 tablet, 4 Refills, Maintenance, 08/13/23 19:21:00 EDT, Tablet, [facility] Partial fill upon patient request if the prescription is for a schedule II opioid drug., 163, cm, ... Start Date: 08/13/23 Status: Ordered triamcinolone 55 mcg/inh nasal spray 1 sprays = 55 mcg, Nares, Both, Daily, # 3 each, 3 Refills, Maintenance, 03/05/23 16:29:00 EST, [facility] Partial fill upon patient request if the prescription is for a schedule II opioid drug., 1 sprays Nares, Both Daily, 163, cm, 1... 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 Sex Patient Care team information Care Team Personnel Name: Graciela Thrasher RN Position: [facility] RN Member Role: Primary Care Nurse Name: Stevie Angel RN Position: [facility] RN Member Role: Primary Care Nurse Name: Keily Ortega RN Position: [facility] RN Member Role: Primary Care Nurse Name: Graciela Munroe RN Position: [facility] RN Member Role: Primary Care Nurse Name: Nichole Pichardo RN Position: [facility] RN Member Role: Primary Care Nurse Name: Melvin Whitfield RN Position: [facility] RASHID Nurse Member Role: Primary Care Nurse Name: Phuong Berkowitz RN Position: [facility] RN Member Role: Primary Care Nurse Name: Pura Walker MD Position: [facility] Physician - Primary Care Member Role: PCP Address: Address: [address] [place] [address] [place] [address]- Name: Joselyn Rain RN Position: [facility] Nurse Member Role: Primary Care Nurse Care Team Related Persons Name: IRA ROMERO Address: [address] [place] [address] Name: JHON LARSON Address: home [address] [place] [address] Name: JHON LARSON Address: [address] [place] [address] Name: GALO CATALAN Name: NANCY CATALAN Address: home [address] [place] [address]
--- OUTSIDE RECORDS SUMMARY | 2023-12-31 10:47 | XMS_ITS | Continuity of Care Document ---
Author Organization [facility] Address [address] [place] [address]- Care Team Providers Care Fly Fishing Guide Name Role Phone Aaron GERARDO, Pura Mahajan Primary Care Physician [phone] [facility]23 - 07/18/23 [facility] [address] [place], [place] [phone] Allergies, Adverse Reactions, Alerts Substance Reaction Severity [...] influenza virus vaccine, inactivated 02/16/17 Give n [id number] 12y+ bivalent booster vax 01/30/22 Given SARS-CoV-2 mRNA (bhdiqtc-poho-ytois) vax 05/14/21 Given SARS-CoV-2 (COVID-19) mRNA BNT-162b2 [...] 03/05/23 16:21:00 EST, Route to Pharmacy Electronically, [facility], Partial fill upon patient request if the prescription is for a sched... Start Date: 03/05/23 Status: Ordered Advair Diskus 500 mcg-50 mcg inhalation powder 1, inhalation, Inhalation, 2 times a day, rinse mouth and throat after use, # 60 each, Refills 11, Tot. Refills 11, Maintenance, 09/25/22 17:00:00 EDT, Inhaler, Route to Pharmacy Electronically, [id number], [facility]... Start Date: 09/25/22 Status: Ordered All Day Allergy 10 mg oral tablet 1 tablet, By Mouth, Daily, # 90 tablet, 3 Refills, Maintenance, 11/20/22 16:48:00 EDT, [facility] 163, cm, 11/20/22 16:00:00 EDT, Height, 83, kg, 02/11/22 19:19:00 EST, Dry Weight Start Date: 11/20/22 Status: Ordered amLODIPine 5 mg oral tablet 5 mg, 1, tablet, By Mouth, Daily, # 90 tablet, Refills 3, Tot. Refills 3, Maintenance, 03/05/23 16:29:00 EST, Route to Pharmacy Electronically, [facility]., Partial fill upon patient request if the prescription is for a schedule II opio... Start Date: 03/05/23 Status: Ordered atorvastatin 40 mg oral tablet 1 tablet = 40 mg, By Mouth, Daily, # 90 tablet, 3 Refills, Maintenance, 09/25/22 16:58:00 EDT, Tablet, [facility] Partial fill upon patient request if the prescription is for a schedule II opioid drug., 163, cm, 09/25/22 16:20:00 EDT,... Start Date: 09/25/22 Status: Ordered clonazePAM 0.5 mg oral tablet 1 tablet = 0.5 mg, By Mouth, 2 times a day, # 60 tablet, 5 Refills, Maintenance, 07/08/23 15:30:00 EDT, Tablet, [facility]., Partial fill upon patient request if the prescription is for a schedule II opioid drug., 163, cm, 07/08/23 9:38... Start Date: 07/08/23 Status: Ordered [...] Gm, 2 Refills, Maintenance, 05/07/23 17:52:00 EST, [facility] 15, APPLY TOPICALLY TO AFFECTED AREA TWO TIMES A DAY FOR TWO WEEKS, 163, eugenia, ... Start Date: 05/07/23 Status: Ordered diclofenac 1% topical gel 1 application, Topically, 4 times a day, # 100 Gm, 4 Refills, Maintenance, 03/05/23 16:21:00 EST, Gel, [facility] Partial fill upon patient request if the prescription is for a schedule II opioid drug., 163, eugenia, 03/05/23 15:09:00 EST,... Start Date: 03/05/23 Status: Ordered docusate-senna 50 mg-187 mg oral tablet 2 tablet, By Mouth, 2 times a day, PRN Constipation, # 360 tablet, 3 Refills, Maintenance, 03/05/2316:29:00 EST, Tablet, [facility] Partial fill upon patient request if the prescription is for a schedule II opioid drug., 2 tablet By... Start Date: 03/05/23 Status: Ordered duloxetine 20 mg oral enteric coated capsule 1 capsule, By Mouth, Daily at bedtime, # 30 capsule, 1 Refills, Maintenance, 05/07/23 17:40:00 EST,[facility], 163, cm, 05/07/23 16:54:00 EST, Height, [...] 3 Refills, Maintenance, 09/25/22 17:01:00 EDT, Tablet, [facility]., Partial fill upon patient request if the prescription is for aschedule II opioid drug., 163, cm, 09/25/22 16:20:0... Start Date: 09/25/22 Status: Ordered ibuprofen 800 mg oral tablet 1, tablet, By Mouth, 3 times a day, PRN, # 90 tablet, Refills 0, Maintenance, NEEDED FOR PAIN, 05/07/23 17:40:00 EST, [facility], [facility], 163, cm, 05/07/23 16:54:00 EST, Height, 78, kg, 04/03/23 15:11:00 EST, Dry... Start Date: 05/07/23 Status: Ordered lidocaine 5% topical film 1 patch, Topically, Daily, PRN Pain , Mild, remove after 12 hours, # 13 each, 5 Refills, Maintenance, 09/25/22 16:59:00 EDT, Film, [facility] Partial fill upon patient request if theprescription is for a schedule II opioid drug., 1 p... Start Date: 09/25/22 Status: Ordered Lidoderm 5% film 2 patch, Topically, Daily, remove patches after 12 hours; 2 patches to pain areas; can cut patches in half; do not excede 2 patches., # 60 patch, 4 Refills, Maintenance, 03/05/23 16:22:00 EST, [facility] Partial fill upon patient requ... Start Date: 03/05/23 Stop Date: 08/02/23 Status: Ordered lisinopril 20 mg oral tablet 20 mg, 1, tablet, By Mouth, Daily, # 90 tablet, Refills 3, Tot. Refills 3, Maintenance, 11/20/22 16:48:00 EDT, Route to Pharmacy Electronically, [facility] 163, cm, 11/20/22 16:00:00EDT, Height, 83, kg, 02/11/22 19:19:00 EST, Dry Weight Start Date: 11/20/22 Status: Ordered melatonin 10 mg oral tablet 1 tablet = 10 mg, By Mouth, Daily at bedtime, PRN as needed for insomnia, # 90 tablet, 3 Refills, Maintenance, 05/07/23 17:52:00 EST, Tablet, [facility]., Partial fill upon patient request if [...] 3 Refills, Maintenance, 04/22/23 20:57:00 EST, Tablet, [facility] Partial fill upon patient request if the prescription is for a schedule II opioid drug., 163, cm, 04/03/23 15... Start Date: 04/22/23 Status: Ordered omeprazole 40 mg oral enteric coated capsule 1 capsule, By Mouth, Daily, PRN GERD, # 90 capsule, 3 Refills, Maintenance, 04/22/23 21:00:00 EST, [facility] 163, cm, 04/03/23 15:11:00 EST, Height, 78, kg, 04/03/23 15:11:00 EST, Dry Weight Start Date: 04/22/23 Status: Ordered oxyCODONE 15 mg oral tablet 1 tablet = 15 mg, By Mouth, Every 8 hours, PRN Pain , Severe, [employer]Pat checked. Opioid agreement at [facility], # 84 tablet, 0 Refills, Maintenance, 06/18/23 12:10:00 EDT, [facility], Partial fill upon patient request [...] 05/11/23 8:53:00 EST, Route to Pharmacy Electronically, [facility], 163, cm, 05/07/23 16:54:00 EST, Height, 78, kg... Start Date: 05/11/23 Status: Ordered topiramate 25 mg oral capsule 2 capsule = 50 mg, By Mouth, Daily, take 1 cap daily x 2 weeks then 2 caps daily, # 60 capsule, 4 Refills, Maintenance, 03/05/23 16:23:00 EST, Capsule, [facility] Partial fill upon patient request if the prescription is for a schedule... Start Date: 03/05/23 Status: Ordered traZODone 50 mg oral tablet 1/2 TO 1 TABLET, By Mouth, Daily at bedtime, # 90 tablet, Refills 3, Tot. Refills 3, Maintenance, 04/22/23 20:58:00 EST, Route to Pharmacy Electronically, [facility] 163, cm, 04/03/23 15:11:00 EST, Height, 78, kg, 04/03/23 15:11:00 ES... Start Date: 04/22/23 Stop Date: 04/16/24 Status: Ordered triamcinolone 55 mcg/inh nasal spray 1 sprays = 55 mcg, Nares, Both, Daily, # 3 each, 3 Refills, Maintenance, 03/05/23 16:29:00 EST, [facility] Partial fill upon patient request if the prescription is for a schedule II opioid drug., 1 sprays Nares, Both Daily, 163, cm, 1... Start Date: 03/05/23 Status: Ordered Trulicity Pen 1.5 mg/0.5 mL subcutaneous solution = 1.5 mg, Subcutaneous Infusion, Every week, # 4 each, 11 Refills, Maintenance, 11/20/22 16:49:00 EDT, [facility], Partial fill upon patient request if the prescription is for a schedule II opioid drug., 163, cm, 11/20/22 16:00:00 EDT,... 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 Sex Patient Care team information Care Team Personnel Name: Graciela Thrasher RN Position: [facility] RN Member Role: Primary Care [...] Name: Melvin Whitfield RN Position: [facility] Nurse Member Role: Primary Care Nurse Name: Phuong Berkowitz RN Position: [facility] RN Member Role: Primary Care Nurse Name: Pura Walker MD Position: [facility] Physician - Primary Care Member Role: PCP Address: Address: [address] [place] [id number] Name: Joselyn Rain RN Position: [facility] [employer] Tester Member Role: Primary Care Nurse Care Team Related Persons Name: IRA ROMERO Address: home [address] [place] [address] Name: JHON LARSON Address: [address] [place] [address] Name: JHON LARSON Address: [address] [place] [address] Name: GALO CATALAN Name: NANCY CATALAN Address: home [address] [place] [address]
--- OUTSIDE RECORDS SUMMARY | 2023-12-31 10:48 | XMS_ITS | Continuity of Care Document ---
Author Organization [facility] Address [address] [place] [address]- Care Team Providers Care Service Liaison Representative Name Role Phone Aaron GERARDO, Pura Mahajan Primary Care Physician [facility]): [facility]23 - 06/18/23 [facility] [address] [place], [place] [address] [[email or web address]] Allergies, Adverse Reactions, [...] influenza virus vaccine, inactivated 02/16/17 Give n [id number] 12y+ bivalent booster vax 01/30/22 Given SARS-CoV-2 mRNA ([id number]) vax 05/14/21 Given SARS-CoV-2 (COVID-19) mRNA BNT-162b2 [...] 03/05/23 16:21:00 EST, Route to Pharmacy Electronically, [facility], Partial fill upon patient request if the prescription is for a sched... Start Date: 03/05/23 Status: Ordered Advair Diskus 500 mcg-50 mcg inhalation powder 1, inhalation, Inhalation, 2 times a day, rinse mouth and throat after use, # 60 each, Refills 11, Tot. Refills 11, Maintenance, 09/25/22 17:00:00 EDT, Inhaler, Route to Pharmacy Electronically, [id number], [facility]-... Start Date: 09/25/22 Status: Ordered All Day Allergy 10 mg oral tablet 1 tablet, By Mouth, Daily, # 90 tablet, 3 Refills, Maintenance, 11/20/22 16:48:00 EDT, [facility]., 163, cm, 11/20/22 16:00:00 EDT, Height, 83, kg, 02/11/22 19:19:00 EST, Dry Weight Start Date: 11/20/22 Status: Ordered amLODIPine 5 mg oral tablet 5 mg, 1, tablet, By Mouth, Daily, # 90 tablet, Refills 3, Tot. Refills 3, Maintenance, 03/05/23 16:29:00 EST, Route to Pharmacy Electronically, [facility]., Partial fill upon patient request if the prescription is for a schedule II opio... Start Date: 03/05/23 Status: Ordered atorvastatin 40 mg oral tablet 1 tablet = 40 mg, By Mouth, Daily, # 90 tablet, 3 Refills, Maintenance, 09/25/22 16:58:00 EDT, Tablet, [facility]., Partial fill upon patient request if [...] Gm, 2 Refills, Maintenance, 05/07/23 17:52:00 EST[facility], APPLY TOPICALLY TO AFFECTED AREA TWO TIMES A DAY FOR TWO WEEKS, 163, cm, ... Start Date: 05/07/23 Status: Ordered diclofenac 1% topical gel 1 application, Topically, 4 times a day, # 100 Gm, 4 Refills, Maintenance, 03/05/23 16:21:00 EST, Gel, [facility] Partial fill upon patient request if the prescription is for a schedule II opioid drug., 163, cm, 03/05/23 15:09:00 EST,... Start Date: 03/05/23 Status: Ordered docusate-senna 50 mg-187 mg oral tablet 2 tablet, By Mouth, 2 times a day, PRN Constipation, # 360 tablet, 3 Refills, Maintenance, 03/05/2316:29:00 EST, Tablet, [facility] Partial fill upon patient request if the prescription is for a schedule II opioid drug., 2 tablet By... Start Date: 03/05/23 Status: Ordered duloxetine 20 mg oral enteric coated capsule 1 capsule, By Mouth, Daily at bedtime, # 30 capsule, 1 Refills, Maintenance, 05/07/23 17:40:00 EST,[facility], 163, cm, 05/07/23 16:54:00 EST, Height, 78, [...] 3 Refills, Maintenance, 09/25/22 17:01:00 EDT, Tablet, [facility]., Partial fill upon patient request if the prescription is for aschedule II opioid drug., 163, cm, 09/25/22 16:20:0... Start Date: 09/25/22 Status: Ordered ibuprofen 800 mg oral tablet 1, tablet, By Mouth, 3 times a day, PRN, # 90 tablet, Refills 0, Maintenance, NEEDED FOR PAIN, 05/07/23 17:40:00 EST, [facility], 163, cm, 05/07/23 16:54:00 EST, Height, 78, kg, 04/03/23 15:11:00 EST, Dry... Start Date: 05/07/23 Status: Ordered lidocaine 5% topical film 1 patch, Topically, Daily, PRN Pain , Mild, remove after 12 hours, # 13 each, 5 Refills, Maintenance, 09/25/22 16:59:00 EDT, Film, [facility]., Partial fill upon patient request if theprescription is for a schedule II opioid drug., 1 p... Start Date: 09/25/22 Status: Ordered Lidoderm 5% film 2 patch, Topically, Daily, remove patches after 12 hours; 2 patches to pain areas; can cut patches in half; do not excede 2 patches., # 60 patch, 4 Refills, Maintenance, 03/05/23 16:22:00 EST, [facility]., Partial fill upon patient requ... Start Date: 03/05/23 Stop Date: 08/02/23 Status: Ordered lisinopril 20 mg oral tablet 20 mg, 1, tablet, By Mouth, Daily, # 90 tablet, Refills 3, Tot. Refills 3, Maintenance, 11/20/22 16:48:00 EDT, Route to Pharmacy Electronically, [facility]., 163, cm, 11/20/22 16:00:00EDT, Height, 83, kg, 02/11/22 19:19:00 EST, Dry Weight Start Date: 11/20/22 Status: Ordered melatonin 10 mg oral tablet 1 tablet = 10 mg, By Mouth, Daily at bedtime, PRN as needed for insomnia, # 90 tablet, 3 Refills, Maintenance, 05/07/23 17:52:00 EST, Tablet, [facility], Partial fill upon patient request if [...] 3 Refills, Maintenance, 04/22/23 20:57:00 EST, Tablet, [facility]., Partial fill upon patient request if the prescription is for a schedule II opioid drug., 163, cm, 04/03/23 15... Start Date: 04/22/23 Status: Ordered omeprazole 40 mg oral enteric coated capsule 1 capsule, By Mouth, Daily, PRN GERD, # 90 capsule, 3 Refills, Maintenance, 04/22/23 21:00:00 EST, [facility]., 163, cm, 04/03/23 15:11:00 EST, Height, 78, kg, 04/03/23 15:11:00 EST, Dry Weight Start Date: 04/22/23 Status: Ordered oxyCODONE 15 mg oral tablet 1 tablet = 15 mg, By Mouth, Every 8 hours, PRN Pain , Severe, [employer] checked. Opioid agreement at [facility], # 84 tablet, 0 Refills, Maintenance, 06/18/23 12:10:00 EDT, [facility], Partial fill upon patient request if the prescription is... Start Date: 06/18/23 Stop Date: 07/16/23 Status: Ordered prazosin 2 mg oral capsule via psychiatry A [facility], 0 Refills, Maintenance, 01/19/23 21:19:00 EDT, Partial fill upon patient request if the prescription is for a schedule II opioid drug. Start Date: 01/19/23 Status: Ordered tiZANidine 4 mg oral tablet 1, tablet, By Mouth, 3 times a day, PRN, # 90 tablet, Refills 3, Tot. Refills 3, Maintenance, NEEDED FOR SEVERE PAIN, 05/11/23 8:53:00 EST, Route to Pharmacy Electronically, [facility], 163, cm, 05/07/23 16:54:00 EST, Height, 78, kg... Start Date: 05/11/23 Status: Ordered topiramate 25 mg oral capsule 2 capsule = 50 mg, By Mouth, Daily, take 1 cap daily x 2 weeks then 2 caps daily, # 60 capsule, 4 Refills, Maintenance, 03/05/23 16:23:00 EST, Capsule, [facility]., Partial fill upon patient request if the prescription is for a schedule... Start Date: 03/05/23 Status: Ordered traZODone 50 mg oral tablet 1/2 TO 1 TABLET, By Mouth, Daily at bedtime, # 90 tablet, Refills 3, Tot. Refills 3, Maintenance, 04/22/23 20:58:00 EST, Route to Pharmacy Electronically, [facility]., 163, cm, 04/03/23 15:11:00 EST, Height, 78, kg, 04/03/23 15:11:00 ES... Start Date: 04/22/23 Stop Date: 04/16/24 Status: Ordered triamcinolone 55 mcg/inh nasal spray 1 sprays = 55 mcg, Nares, Both, Daily, # 3 each, 3 Refills, Maintenance, 03/05/23 16:29:00 EST, [facility] Partial fill upon patient request if the prescription is for a schedule II opioid drug., 1 sprays Nares, Both Daily, 163, cm, 1... Start Date: 03/05/23 Status: Ordered Trulicity Pen 1.5 mg/0.5 mL subcutaneous solution = 1.5 mg, Subcutaneous Infusion, Every week, # 4 each, 11 Refills, Maintenance, 11/20/22 16:49:00 EDT, [facility]., Partial fill upon patient request if the prescription is for a schedule II opioid drug., 163, cm, 11/20/22 16:00:00 EDT,... Start Date: 11/20/22 Status: Ordered Ventolin HFA 108 mcg/inh inhalation aerosol with adapter 2 puffs, Inhalation, 4 times a day, PRN for wheezing, # 1 each, 11 Refills, Maintenance, 05/07/23 17:55:00 EST, Aerosol, [facility]., Partial fill upon patient request if [...] Confirmed Active Panic attacks Confirmed Active BHN/BHCP Radiology Ct Technologist Charlene Chung Caren [phone] Confirmed Active Syncope and collapse Confirmed Active Tobacco dependence Confirmed Active DM2 (diabetes mellitus, type 2) Confirmed 04/03/17 Active Incontinence of urine 4 Confirmed Active 1seen on MRI 10/2016, rec repeat imaging in October 2017 pain managemnt team/ Dr Diop indicated they thought pain was fibromyalgia 3[place] CT [place] [facility] 4urge and stress Social History Social History Type Response Tobacco Other: tobacco 2 - 3 per day (cut down 2 weeks ago). Sex Patient Care team information Care Team Personnel Name: Graciela Thrasher RN Position: [facility] SN RN Member Role: Primary Care Nurse Name: Stevie Angel RN Position: [facility] RN Member Role: Primary Care Nurse Name: Keily Ortega RN Position: [facility] RN Member Role: Primary Care Nurse Name: Graciela Munroe RN Position: [facility] RN Member Role: Primary Care Nurse Name: Nichole Pichardo RN Position: [facility] RN Member Role: Primary Care Nurse Name: Melvin Whitfield RN Position: [facility] AMB Nurse Member Role: Primary Care Nurse Name: Phuong Berkowitz RN Position: [facility] RN Member Role: Primary Care Nurse Name: Pura Walker MD Position: [facility] Physician - Primary Care Member Role: PCP Address: Address: [address] [place] [id number] Name: Joselyn Rain RN Position: [facility] Hospital Instrument Sterilizer Member Role: Primary Care Nurse Care Team Related Persons Name: IRA ROMERO Address: home [address] [place] [address] Name: JHON LARSON Address: home [address] [place] [address] Name: JHON LARSON Address: home [address] [place] [address] Name: GALO CATALAN Name: NANCY CATALAN Address: home [address] [place] [address]
--- OUTSIDE RECORDS SUMMARY | 2023-12-31 10:48 | XMS_ITS | Continuity of Care Document ---
Author Organization [facility] Address [address] [place] [address]- Care Team Providers Care Clerical Grader Name Role Phone Aaron GERARDO, Pura Mahajan Primary Care Physician [facility] - 06[facility]07/23 [facility] [address] [place], [place] [address] Allergies, Adverse Reactions, Alerts Substance Reaction [...] influenza virus vaccine, inactivated 02/16/17 Give n [id number] 12y+ bivalent booster vax 01/30/22 Given SARS-CoV-2 mRNA ([id number]) vax 05/14/21 Given SARS-CoV-2 (COVID-19) mRNA BNT-162b2 [...] 03/05/23 16:21:00 EST, Route to Pharmacy Electronically, [facility], Partial fill upon patient request if the prescription is for a sched... Start Date: 03/05/23 Status: Ordered Advair Diskus 500 mcg-50 mcg inhalation powder 1, inhalation, Inhalation, 2 times a day, rinse mouth and throat after use, # 60 each, Refills 11, Tot. Refills 11, Maintenance, 09/25/22 17:00:00 EDT, Inhaler, Route to Pharmacy Electronically, [id number], [facility]-... Start Date: 09/25/22 Status: Ordered All Day Allergy 10 mg oral tablet 1 tablet, By Mouth, Daily, # 90 tablet, 3 Refills, Maintenance, 11/20/22 16:48:00 EDT, [facility]., 163, cm, 11/20/22 16:00:00 EDT, Height, 83, kg, 02/11/22 19:19:00 EST, Dry Weight Start Date: 11/20/22 Status: Ordered amLODIPine 5 mg oral tablet 5 mg, 1, tablet, By Mouth, Daily, # 90 tablet, Refills 3, Tot. Refills 3, Maintenance, 03/05/23 16:29:00 EST, Route to Pharmacy Electronically, [facility]., Partial fill upon patient request if the prescription is for a schedule II opio... Start Date: 03/05/23 Status: Ordered atorvastatin 40 mg oral tablet 1 tablet = 40 mg, By Mouth, Daily, # 90 tablet, 3 Refills, Maintenance, 09/25/22 16:58:00 EDT, Tablet, [facility]., Partial fill upon patient request [...] Gm, 2 Refills, Maintenance, 05/07/23 17:52:00 EST, [facility] 15, APPLY TOPICALLY TO AFFECTED AREA TWO TIMES A DAY FOR TWO WEEKS, 163, cm, ... Start Date: 05/07/23 Status: Ordered diclofenac 1% topical gel 1 application, Topically, 4 times a day, # 100 Gm, 4 Refills, Maintenance, 03/05/23 16:21:00 EST, Gel, [facility] Partial fill upon patient request if the prescription is for a schedule II opioid drug., 163, cm, 03/05/23 15:09:00 EST,... Start Date: 03/05/23 Status: Ordered docusate-senna 50 mg-187 mg oral tablet 2 tablet, By Mouth, 2 times a day, PRN Constipation, # 360 tablet, 3 Refills, Maintenance, 03/05/2316:29:00 EST, Tablet, [facility] Partial fill upon patient request if the prescription is for a schedule II opioid drug., 2 tablet By... Start Date: 03/05/23 Status: Ordered duloxetine 20 mg oral enteric coated capsule 1 capsule, By Mouth, Daily at bedtime, # 30 capsule, 1 Refills, Maintenance, 05/07/23 17:40:00 EST,[facility], 163, cm, 05/07/23 16:54:00 EST, Height, [...] 3 Refills, Maintenance, 09/25/22 17:01:00 EDT, Tablet, [facility]., Partial fill upon patient request if the prescription is for aschedule II opioid drug., 163, cm, 09/25/22 16:20:0... Start Date: 09/25/22 Status: Ordered ibuprofen 800 mg oral tablet 1, tablet, By Mouth, 3 times a day, PRN, # 90 tablet, Refills 0, Maintenance, NEEDED FOR PAIN, 05/07/23 17:40:00 EST, Route to Pharmacy Electronically, [facility], 163, cm, 05/07/23 16:54:00 EST, Height, 78, kg, 04/03/23 15:11:00 EST, Dry... Start Date: 05/07/23 Status: Ordered lidocaine 5% topical film 1 patch, Topically, Daily, PRN Pain , Mild, remove after 12 hours, # 13 each, 5 Refills, Maintenance, 09/25/22 16:59:00 EDT, Film, [facility]., Partial fill upon patient request if theprescription is for a schedule II opioid drug., 1 p... Start Date: 09/25/22 Status: Ordered Lidoderm 5% film 2 patch, Topically, Daily, remove patches after 12 hours; 2 patches to pain areas; can cut patches in half; do not excede 2 patches., # 60 patch, 4 Refills, Maintenance, 03/05/23 16:22:00 EST, [facility]., Partial fill upon patient requ... Start Date: 03/05/23 Stop Date: 08/02/23 Status: Ordered lisinopril 20 mg oral tablet 20 mg, 1, tablet, By Mouth, Daily, # 90 tablet, Refills 3, Tot. Refills 3, Maintenance, 11/20/22 16:48:00 EDT, Route to Pharmacy Electronically, [facility]., 163, cm, 11/20/22 16:00:00EDT, Height, 83, kg, 02/11/22 19:19:00 EST, Dry Weight Start Date: 11/20/22 Status: Ordered melatonin 10 mg oral tablet 1 tablet = 10 mg, By Mouth, Daily at bedtime, PRN as needed for insomnia, # 90 tablet, 3 Refills, Maintenance, 05/07/23 17:52:00 EST, Tablet, [facility], Partial fill upon patient [...] 3 Refills, Maintenance, 04/22/23 20:57:00 EST, Tablet, [facility]., Partial fill upon patient request if the prescription is for a schedule II opioid drug., 163, cm, 04/03/23 15... Start Date: 04/22/23 Status: Ordered omeprazole 40 mg oral enteric coated capsule 1 capsule, By Mouth, Daily, PRN GERD, # 90 capsule, 3 Refills, Maintenance, 04/22/23 21:00:00 EST, [facility]., 163, cm, 04/03/23 15:11:00 EST, Height, 78, kg, 04/03/23 15:11:00 EST, Dry Weight Start Date: 04/22/23 Status: Ordered oxyCODONE 15 mg oral tablet 1 tablet = 15 mg, By Mouth, Every 8 hours, PRN Pain , Severe, [employer] checked. Opioid agreement at [facility], # 84 tablet, 0 Refills, Maintenance, 05/19/23 17:33:00 EST, [facility], Partial fill upon patient request if the prescription is... Start Date: 05/19/23 Stop Date: 06/16/23 Status: Ordered prazosin 2 mg oral capsule via psychiatry A [facility], 0 Refills, Maintenance, 01/19/23 21:19:00 EDT, Partial fill upon patient request if the prescription is for a schedule II opioid drug. Start Date: 01/19/23 Status: Ordered tiZANidine 4 mg oral tablet 1, tablet, By Mouth, 3 times a day, PRN, # 90 tablet, Refills 3, Tot. Refills 3, Maintenance, NEEDED FOR SEVERE PAIN, 05/11/23 8:53:00 EST, Route to Pharmacy Electronically, [facility], 163, cm, 05/07/23 16:54:00 EST, Height, 78, kg... Start Date: 05/11/23 Status: Ordered topiramate 25 mg oral capsule 2 capsule = 50 mg, By Mouth, Daily, take 1 cap daily x 2 weeks then 2 caps daily, # 60 capsule, 4 Refills, Maintenance, 03/05/23 16:23:00 EST, Capsule, [facility]., Partial fill upon patient request if the prescription is for a schedule... Start Date: 03/05/23 Status: Ordered traZODone 50 mg oral tablet 1/2 TO 1 TABLET, By Mouth, Daily at bedtime, # 90 tablet, Refills 3, Tot. Refills 3, Maintenance, 04/22/23 20:58:00 EST, Route to Pharmacy Electronically, [facility]., 163, cm, 04/03/23 15:11:00 EST, Height, 78, kg, 04/03/23 15:11:00 ES... Start Date: 04/22/23 Stop Date: 04/16/24 Status: Ordered triamcinolone 55 mcg/inh nasal spray 1 sprays = 55 mcg, Nares, Both, Daily, # 3 each, 3 Refills, Maintenance, 03/05/23 16:29:00 EST, [facility]., Partial fill upon patient request if the prescription is for a schedule II opioid drug., 1 sprays Nares, Both Daily, 163, cm, 1... Start Date: 03/05/23 Status: Ordered Trulicity Pen 1.5 mg/0.5 mL subcutaneous solution = 1.5 mg, Subcutaneous Infusion, Every week, # 4 each, 11 Refills, Maintenance, 11/20/22 16:49:00 EDT, [facility]., Partial fill upon patient request if the prescription is for a schedule II opioid drug., 163, cm, 11/20/22 16:00:00 EDT,... 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 Sex Patient Care team information Care Team Personnel Name: Graciela Thrasher RN Position: [facility] RN Member Role: Primary Care Nurse Name: Stevie Angel RN Position: [facility] RN Member Role: Primary Care Nurse Name: Keily Ortega RN Position: [facility] RN Member Role: Primary Care Nurse Name: Graciela Munroe RN Position: [facility] RN Member Role: Primary Care Nurse Name: Nichole Pichardo RN Position: [facility] RN Member Role: Primary Care Nurse Name: Melvin Whitfield RN Position: [facility] AMB Nurse Member Role: Primary Care Nurse Name: Phuong Berkowitz RN Position: [facility] RN Member Role: Primary Care Nurse Name: Pura Walker MD Position: [facility] Physician - Primary Care Member Role: PCP Address: Address: [address] [place] [id number] Name: Joselyn Rain RN Position: [facility] Hospital Feeder Operator Member Role: Primary Care Nurse Care Team Related Persons Name: IRA ROMERO Address: home [address] [place] [address] Name: JHON LARSON Address: [address] [place] [address] Name: JHON LARSON Address: [address] [place] [address] Name: GALO CATALAN Name: NANCY CATALAN Address: home [address] [place] [address]
--- OUTSIDE RECORDS SUMMARY | 2023-12-31 10:48 | XMS_ITS | Continuity of Care Document ---
Author Organization [facility] ter Address [address] [place] [id number]- Care Team Providers Care Hand Scraper Name Role Phone Pura Walker MD Primary Care Physician Encounter [facility] Date(s): 06/02/23 - 07/30/[address] [address] Attending Physician: Pura Walker MD Admitting Physician: [...] influenza virus vaccine, inactivated 02/16/17 Give n [id number] 12y+ bivalent booster vax 01/30/22 Given SARS-CoV-2 mRNA ([id number]) vax 05/14/21 Given SARS-CoV-2 (COVID-19) mRNA BNT-162b2 [...] 03/05/23 16:21:00 EST, Route to Pharmacy Electronically, [facility], Partial fill upon patient request if the prescription is for a sched... Start Date: 03/05/23 Status: Ordered Advair Diskus 500 mcg-50 mcg inhalation powder 1, inhalation, Inhalation, 2 times a day, rinse mouth and throat after use, # 60 each, Refills 11, Tot. Refills 11, Maintenance, 09/25/22 17:00:00 EDT, Inhaler, Route to Pharmacy Electronically, [id number], [facility]... Start Date: 09/25/22 Status: Ordered All Day Allergy 10 mg oral tablet 1 tablet, By Mouth, Daily, # 90 tablet, 3 Refills, Maintenance, 11/20/22 16:48:00 EDT, [facility], 163, cm, 11/20/22 16:00:00 EDT, Height, 83, kg, 02/11/22 19:19:00 EST, Dry Weight Start Date: 11/20/22 Status: Ordered amLODIPine 5 mg oral tablet 5 mg, 1, tablet, By Mouth, Daily, # 90 tablet, Refills 3, Tot. Refills 3, Maintenance, 03/05/23 16:29:00 EST, Route to Pharmacy Electronically, [facility], Partial fill upon patient request if [...] 16:20:00 EDT,... Start Date: 09/25/22 Status: Ordered AutoCPAP 10-15 AutoCPAP 10-15, See Instructions, # 1 each, Refills 0, Tot. Refills 0, Maintenance, use overnight and naps from [employer], 07/29/23 15:28:00 EDT, Compound Start Date: 07/29/23 Status: Ordered clonazePAM 0.5 mg oral tablet 1 tablet = 0.5 mg, By Mouth, 2 times a day, # 60 tablet, 5 Refills, Maintenance, 07/08/23 15:30:00 EDT, Tablet, [facility]., Partial fill upon patient request [...] Gm, 2 Refills, Maintenance, 05/07/23 17:52:00 EST, [facility] 15, APPLY TOPICALLY TO AFFECTED AREA TWO TIMES A DAY FOR TWO WEEKS, 163, cm, ... Start Date: 05/07/23 Status: Ordered diclofenac 1% topical gel 1 application, Topically, 4 times a day, # 100 Gm, 4 Refills, Maintenance, 03/05/23 16:21:00 EST, Gel, [facility] Partial fill upon patient request if the prescription is for a schedule II opioid drug., 163, cm, 03/05/23 15:09:00 EST,... Start Date: 03/05/23 Status: Ordered docusate-senna 50 mg-187 mg oral tablet 2 tablet, By Mouth, 2 times a day, PRN Constipation, # 360 tablet, 3 Refills, Maintenance, 03/05/2316:29:00 EST, Tablet, [facility]., Partial fill upon patient request if the prescription is for a schedule II opioid drug., 2 tablet By... Start Date: 03/05/23 Status: Ordered duloxetine 20 mg oral enteric coated capsule 1 capsule, By Mouth, Daily at bedtime, # 30 capsule, 1 Refills, Maintenance, 05/07/23 17:40:00 EST,[facility], 163, cm, 05/07/23 16:54:00 EST, Height, [...] 3 Refills, Maintenance, 09/25/22 17:01:00 EDT, Tablet, [facility]., Partial fill upon patient request if the prescription is for aschedule II opioid drug., 163, cm, 09/25/22 16:20:0... Start Date: 09/25/22 Status: Ordered ibuprofen 800 mg oral tablet 1, tablet, By Mouth, 3 times a day, PRN, # 90 tablet, Refills 0, Maintenance, NEEDED FOR PAIN, 05/07/23 17:40:00 EST, Route to Pharmacy Electronically, [facility], 163, cm, 05/07/23 16:54:00 EST, Height, 78, kg, 04/03/23 15:11:00 EST, Dry... Start Date: 05/07/23 Status: Ordered ipratropium nasal 21 mcg/inh spray See Instructions, PRN Nasal Congestion, 1 spray each nostril BID, # 1 each, 4 Refills, Maintenance,07/29/23 15:10:00 EDT, [facility], Partial fill upon patient request if the prescription is for a schedule II opioid drug., 1 spray eac... Start Date: 07/29/23 Status: Ordered lidocaine 5% topical film 1 patch, Topically, Daily, PRN Pain , Mild, remove after 12 hours, # 13 each, 5 Refills, Maintenance, 09/25/22 16:59:00 EDT, Film, [facility], Partial fill upon patient request if theprescription is for a schedule II opioid drug., 1 p... Start Date: 09/25/22 Status: Ordered Lidoderm 5% film 2 patch, Topically, Daily, remove patches after 12 hours; 2 patches to pain areas; can cut patches in half; do not excede 2 patches., # 60 patch, 4 Refills, Maintenance, 03/05/23 16:22:00 EST, [facility], Partial fill upon patient requ... Start Date: 03/05/23 Stop Date: 08/02/23 Status: Ordered lisinopril 20 mg oral tablet 20 mg, 1, tablet, By Mouth, Daily, # 90 tablet, Refills 3, Tot. Refills 3, Maintenance, 11/20/22 16:48:00 EDT, Route to Pharmacy Electronically, [facility], 163, cm, 11/20/22 16:00:00EDT, Height, 83, kg, 02/11/22 19:19:00 EST, Dry Weight Start Date: 11/20/22 Status: Ordered melatonin 10 mg oral tablet 1 tablet = 10 mg, By Mouth, Daily at bedtime, PRN as needed for insomnia, # 90 tablet, 3 Refills, Maintenance, 05/07/23 17:52:00 EST, Tablet, [facility], Partial fill upon patient request if [...] 3 Refills, Maintenance, 04/22/23 20:57:00 EST, Tablet, [facility] Partial fill upon patient request if the prescription is for a schedule II opioid drug., 163, cm, 04/03/23 15... Start Date: 04/22/23 Status: Ordered omeprazole 40 mg oral enteric coated capsule 1 capsule, By Mouth, Daily, PRN GERD, # 90 capsule, 3 Refills, Maintenance, 04/22/23 21:00:00 EST, [facility]., 163, cm, 04/03/23 15:11:00 EST, Height, 78, kg, 04/03/23 15:11:00 EST, Dry Weight Start Date: 04/22/23 Status: Ordered oxyCODONE 15 mg oral tablet 1 tablet = 15 mg, By Mouth, Every 8 hours, PRN Pain , Severe, [employer] checked. Opioid agreement at [facility], # 84 tablet, 0 Refills, Maintenance, 07/20/23 10:39:00 EDT, [facility]., Partial fill upon patient request if the prescription is... Start Date: 07/20/23 Stop Date: 08/17/23 Status: Ordered prazosin 2 mg oral capsule [...] 05/11/23 8:53:00 EST, Route to Pharmacy Electronically, [facility] 163, cm, 05/07/23 16:54:00 EST, Height, 78, kg... Start Date: 05/11/23 Status: Ordered topiramate 25 mg oral capsule 2 capsule = 50 mg, By Mouth, Daily, take 1 cap daily x 2 weeks then 2 caps daily, # 60 capsule, 4 Refills, Maintenance, 03/05/23 16:23:00 EST, Capsule, [facility]., Partial fill upon patient request if the prescription is for a schedule... Start Date: 03/05/23 Status: Ordered triamcinolone 55 mcg/inh nasal spray 1 sprays = 55 mcg, Nares, Both, Daily, # 3 each, 3 Refills, Maintenance, 03/05/23 16:29:00 EST, [facility]., Partial fill upon patient request if the prescription is for a schedule II opioid drug., 1 sprays Nares, Both Daily, 163, cm, 1... Start Date: 03/05/23 Status: Ordered Trulicity Pen 1.5 mg/0.5 mL subcutaneous solution = 1.5 mg, Subcutaneous Infusion, Every week, # 4 each, 11 Refills, Maintenance, 11/20/22 16:49:00 EDT, [facility]., Partial fill upon patient request if the prescription is for a schedule II opioid drug., 163, cm, 11/20/22 16:00:00 EDT,... 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 Sex Patient Care team information Care Team Personnel Name: Graciela Thrasher RN Position: [facility] RN Member Role: Primary Care Nurse Name: Stevie Angel RN Position: [facility] RN Member Role: Primary Care Nurse Name: Keily Ortega RN Position: [facility] RN Member Role: Primary Care Nurse Name: Graciela Munroe RN Position: [facility] RN Member Role: Primary Care Nurse Name: Nichole Pichardo RN Position: [facility] RN Member Role: Primary Care Nurse Name: Melvin Whitfield RN Position: [facility] AMB Nurse Member Role: Primary Care Nurse Name: Phuong Berkowitz RN Position: [facility] RN Member Role: Primary Care Nurse Name: Pura Walker MD Position: [facility] Physician - Primary Care Member Role: PCP Address: Address: [address] [place] [address]- Name: Joselyn Rain RN Position: [facility] Hospital Environmental Lead Member Role: Primary Care Nurse Care Team Related Persons Name: IRA ROMERO Address: home [address] [place] [address] Name: JHON LARSON Address: home [address] [place] [address] Name: JHON LARSON Address: home [address] [place] [address] Name: GALO CATALAN Name: NANCY CATALAN Address: home [address] [place] [address]
--- OUTSIDE RECORDS SUMMARY | 2023-12-31 10:48 | XMS_ITS | Continuity of Care Document ---
Author Organization [facility] Address [address] [place] [address]- Care Team Providers Care Freight Representative Name Role Phone Aaron GERARDO, Pura Mahajan Primary Care Physician Encounter [facility] Date(s): 07/17/23 - 08/16/23 [facility] [address] [place], [place] [phone] Allergies, Adverse Reactions, Alerts Substance Reaction Severity [...] influenza virus vaccine, inactivated 02/16/17 Give n [id number] 12y+ bivalent booster vax 01/30/22 Given SARS-CoV-2 mRNA (cbfqoxq-[id number]-camlo) vax 05/14/21 Given SARS-CoV-2 (COVID-19) mRNA BNT-162b2 [...] 03/05/23 16:21:00 EST, Route to Pharmacy Electronically, [facility], Partial fill upon patient request if the prescription is for a sched... Start Date: 03/05/23 Status: Ordered Advair Diskus 500 mcg-50 mcg inhalation powder 1, inhalation, Inhalation, 2 times a day, rinse mouth and throat after use, # 60 each, Refills 11, Tot. Refills 11, Maintenance, 08/13/23 20:46:00 EDT, Inhaler, Route to Pharmacy Electronically, [id number], [facility]-... Start Date: 08/13/23 Status: Ordered All Day Allergy 10 mg oral tablet 1 tablet, By Mouth, Daily, # 90 tablet, 3 Refills, Maintenance, 08/13/23 20:47:00 EDT, [facility]., 163, cm, 08/13/23 18:05:00 EDT, Height, 78, kg, 04/03/23 15:11:00 EST, Dry Weight Start Date: 08/13/23 Status: Ordered amLODIPine 10 mg oral tablet 10 mg, 1, tablet, By Mouth, Daily, # 30 tablet, Refills 4, Tot. Refills 4, Maintenance, 08/13/23 19:14:00 EDT, Route to Pharmacy Electronically, [facility], Partial fill upon patient request if the prescription is for a schedule II opi... Start Date: 08/13/23 Status: Ordered atorvastatin 40 mg oral tablet 1 tablet = 40 mg, By Mouth, Daily, # 90 tablet, 3 Refills, Maintenance, 08/13/23 20:46:00 EDT, Tablet, [facility]., Partial fill [...] 5 Refills, Maintenance, 07/08/23 15:30:00 EDT, Tablet, [facility]., Partial fill [...] Gm, 2 Refills, Maintenance, 05/07/23 17:52:00 EST, [facility] 15, APPLY TOPICALLY TO AFFECTED AREA TWO TIMES A DAY FOR TWO WEEKS, 163, eugenia, ... Start Date: 05/07/23 Status: Ordered diclofenac 1% topical gel 1 application, Topically, 4 times a day, # 100 Gm, 4 Refills, Maintenance, 03/05/23 16:21:00 EST, Gel, [facility] Partial fill upon patient request if the prescription is for a schedule II opioid drug., 163, eugenia, 03/05/23 15:09:00 EST,... Start Date: 03/05/23 Status: Ordered docusate-senna 50 mg-187 mg oral tablet 2 tablet, By Mouth, 2 times a day, PRN Constipation, # 360 tablet, 3 Refills, Maintenance, 03/05/2316:29:00 EST, Tablet, [facility]., Partial fill upon patient request if the prescription is for a schedule II opioid drug., 2 tablet By... Start Date: 03/05/23 Status: Ordered duloxetine 20 mg oral enteric coated capsule 1 capsule, By Mouth, Daily at bedtime, # 30 capsule, 1 Refills, Maintenance, 05/07/23 17:40:00 EST,[facility], 163, cm, 05/07/23 16:54:00 EST, Height, 78, kg, 04/03/23 15:11:00 EST, Dry Weight Start Date: 05/07/23 Status: Ordered empagliflozin 10 mg oral tablet 1 tablet = 10 mg, By Mouth, Daily in AM, # 90 tablet, 3 Refills, Maintenance, 08/13/23 20:46:00 EDT, Tablet, [facility], Partial fill upon patient request [...] 1 each, 4 Refills, Maintenance,07/29/23 15:10:00 EDT, [facility], Partial fill upon patient request if the prescription is for a schedule II opioid drug., 1 spray eac... Start Date: 07/29/23 Status: Ordered Lidoderm 5% film 2 patch, Topically, Daily, remove patches after 12 hours; 2 patches to pain areas; can cut patches in half; do not excede 2 patches., # 180 patch, 3 Refills, Maintenance, 08/13/23 19:20:00 EDT, [facility], Partial fill upon patient req... Start Date: 08/13/23 Stop Date: 08/07/24 Status: Ordered lisinopril 20 mg oral tablet 20 mg, 1, tablet, By Mouth, Daily, # 90 tablet, Refills 3, Tot. Refills 3, Maintenance, 08/13/23 20:46:00 EDT, Route to Pharmacy Electronically, [facility]., 163, cm, 08/13/23 18:05:00EDT, Height, 78, kg, 04/03/23 15:11:00 EST, Dry Weight Start Date: 08/13/23 Status: Ordered melatonin 10 mg oral tablet 1 tablet = 10 mg, By Mouth, Daily at bedtime, PRN as needed for insomnia, # 90 tablet, 3 Refills, Maintenance, 05/07/23 17:52:00 EST, Tablet, [facility], Partial fill upon patient request [...] 3 Refills, Maintenance, 04/22/23 20:57:00 EST, Tablet, [facility] Partial fill upon patient request if the prescription is for a schedule II opioid drug., 163, cm, 04/03/23 15... Start Date: 04/22/23 Status: Ordered Mounjaro 2.5 mg/0.5 mL subcutaneous solution = 2.5 mg, Subcutaneous Injection, Every week, rotate injection sites; use Tirzepatide 0.25mg weeklyx 4 weeks then increase dose, # 4 each, 0 Refills, Maintenance, 08/13/23 19:13:00 EDT, Solution, [facility] Partial fill upon patient... Start Date: 08/13/23 Status: Ordered Mounjaro 5 mg/0.5 mL subcutaneous solution = 5 mg, Subcutaneous Injection, Every week, rotate injection sites; use Tirzepatide 0.25mg weekly x4 weeks then increase dose, # 4 each, 0 Refills, Maintenance, 08/13/23 19:14:00 EDT, Solution, [facility] Partial fill upon patient re... Start Date: 08/13/23 Status: Ordered omeprazole 40 mg oral enteric coated capsule 1 capsule, By Mouth, Daily, PRN GERD, # 90 capsule, 3 Refills, Maintenance, 04/22/23 21:00:00 EST, [facility] 163, cm, 04/03/23 15:11:00 EST, Height, 78, kg, 04/03/23 15:11:00 EST, Dry Weight Start Date: 04/22/23 Status: Ordered oxyCODONE 15 mg oral tablet 1 tablet = 15 mg, By Mouth, Every 8 hours, PRN Pain , Severe, [employer]Pat checked. Opioid agreement at [facility], # 84 tablet, 0 Refills, Maintenance, 08/13/23 19:24:00 EDT, [facility]., Partial fill upon patient request if the prescription is... Start Date: 08/13/23 Stop Date: 09/10/23 Status: Ordered prazosin 2 mg oral capsule [...] 05/11/23 8:53:00 EST, Route to Pharmacy Electronically, [facility] 163, cm, 05/07/23 16:54:00 EST, Height, 78, kg... Start Date: 05/11/23 Status: Ordered topiramate 100 mg oral tablet 1 tablet = 100 mg, By Mouth, Daily, increase dose, # 30 tablet, 4 Refills, Maintenance, 08/13/23 19:21:00 EDT, Tablet, [facility], Partial fill upon patient request if the prescription is for a schedule II opioid drug., 163, cm, ... Start Date: 08/13/23 Status: Ordered triamcinolone 55 mcg/inh nasal spray 1 sprays = 55 mcg, Nares, Both, Daily, # 3 each, 3 Refills, Maintenance, 03/05/23 16:29:00 EST, [facility], Partial fill upon patient request if the prescription is for a schedule II opioid drug., 1 sprays Nares, Both Daily, 163, cm, 1... Start Date: 03/05/23 Status: Ordered Trulicity Pen 1.5 mg/0.5 mL subcutaneous solution = 1.5 mg, Subcutaneous Infusion, Every week, # 4 each, 11 Refills, Maintenance, 08/14/23 12:21:00 EDT, [facility]., Partial fill upon patient request if the prescription is for a schedule II opioid drug., 163, cm, 08/13/23 18:05:00 EDT,... Start Date: 08/14/23 Status: Ordered Ventolin HFA 108 mcg/inh inhalation aerosol with adapter 2 puffs, Inhalation, 4 times a day, PRN for wheezing, # 1 each, 11 Refills, Maintenance, 05/07/23 17:55:00 EST, Aerosol, [facility], Partial fill upon patient request if the prescription is for a schedule II opioid drug., 163, cm, 020... 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 Sex Patient Care team information Care Team Personnel Name: Graciela Thrasher RN Position: S RN [...] Primary Care Member Role: PCP Address: Address: [address] [place] [id number] Name: Joselyn Rain RN Position: [facility] Hospital Exchange Clerk Member Role: Primary Care Nurse Care Team Related Persons Name: IRA ROMERO Address: home [address] [place] [address] Name: JHON LARSON Address: home [address] [place] [address] Name: JHON LARSON Address: [address] [place] [address] Name: GALO CATALAN Name: NANCY CATALAN Address: home [address] [place] [address]
--- OUTSIDE RECORDS SUMMARY | 2023-12-31 10:49 | XMS_ITS | Continuity of Care Document ---
Author Organization [facility] Address [address] [place] [address] ve [address] [place] [address]- Care Team Providers Care Driver Name Role Phone Pura Walker MD Primary Care Physician [phone] Encounter [facility] Date(s): 09/14/23 - 09/21/[address] [place] [address]- Attending Physician: Rubi Dave MD Referring Physician: Pura Walker MD Allergies, [...] influenza virus vaccine, inactivated 02/16/17 Give n [id number] 12y+ bivalent booster vax 01/30/22 Given SARS-CoV-2 mRNA ([id number]-[id number]) vax 05/14/21 Given SARS-CoV-2 (COVID-19) mRNA BNT-162b2 [...] 03/05/23 16:21:00 EST, Route to Pharmacy Electronically, [facility] [...] 20:46:00 EDT, Inhaler, Route to Pharmacy Electronically, [id number], [facility]... Start Date: 08/13/23 Status: Ordered All Day Allergy 10 mg oral tablet 1 tablet, By Mouth, Daily, # 90 tablet, 3 Refills, Maintenance, 08/13/23 20:47:00 EDT, [facility], 163, cm, 08/13/23 18:05:00 EDT, Height, 78, kg, 04/03/23 15:11:00 EST, Dry Weight Start Date: 08/13/23 Status: Ordered amLODIPine 10 mg oral tablet 10 mg, 1, tablet, By Mouth, Daily, # 30 tablet, Refills 4, Tot. Refills 4, Maintenance, 08/13/23 19:14:00 EDT, Route to Pharmacy Electronically, [facility], Partial fill upon patient request if the prescription is for a schedule II opi... Start Date: 08/13/23 Status: Ordered atorvastatin 40 mg oral tablet 1 tablet = 40 mg, By Mouth, Daily, # 90 tablet, 3 Refills, Maintenance, 08/13/23 20:46:00 EDT, Tablet, [facility], [...] 5 Refills, Maintenance, 07/08/23 15:30:00 EDT, Tablet, [facility] Partial fill [...] Gm, 2 Refills, Maintenance, 05/07/23 17:52:00 EST, [facility] 15, APPLY TOPICALLY TO AFFECTED AREA TWO TIMES A DAY FOR TWO WEEKS, 163, [place], ... Start Date: 05/07/23 Status: Ordered diclofenac 1% topical gel 1 application, Topically, 4 times a day, # 100 Gm, 4 Refills, Maintenance, 03/05/23 16:21:00 EST, Gel, [facility]., Partial fill upon patient request if the prescription is for a schedule II opioid drug., 163, [place], 03/05/23 15:09:00 EST,... Start Date: 03/05/23 Status: Ordered docusate-senna 50 mg-187 mg oral tablet 2 tablet, By Mouth, 2 times a day, PRN Constipation, # 360 tablet, 3 Refills, Maintenance, 03/05/2316:29:00 EST, Tablet, [facility] Partial fill upon patient request if the prescription is for a schedule II opioid drug., 2 tablet By... Start Date: 03/05/23 Status: Ordered duloxetine 20 mg oral enteric coated capsule 1 capsule, By Mouth, Daily at bedtime, # 30 capsule, 1 Refills, Maintenance, 05/07/23 17:40:00 EST,[facility], 163, cm, 05/07/23 16:54:00 EST, Height, 78, kg, 04/03/23 15:11:00 EST, Dry Weight Start Date: 05/07/23 Status: Ordered empagliflozin 10 mg oral tablet 1 tablet = 10 mg, By Mouth, Daily in AM, # 90 tablet, 3 Refills, Maintenance, 08/13/23 20:46:00 EDT, Tablet, [facility]., Partial fill [...] 1 each, 4 Refills, Maintenance,07/29/23 15:10:00 EDT, [facility], Partial [...] patch, 3 Refills, Maintenance, 08/13/23 19:20:00 EDT, [facility], Partial fill upon patient req... Start Date: 08/13/23 Stop Date: 08/07/24 Status: Ordered lisinopril 20 mg oral tablet 20 mg, 1, tablet, By Mouth, Daily, # 90 tablet, Refills 3, Tot. Refills 3, Maintenance, 08/13/23 20:46:00 EDT, Route to Pharmacy Electronically, [facility], 163, cm, 08/13/23 18:05:00EDT, Height, 78, kg, 04/03/23 15:11:00 EST, Dry Weight Start Date: 08/13/23 Status: Ordered melatonin 10 mg oral tablet 1 tablet = 10 mg, By Mouth, Daily at bedtime, PRN as needed for insomnia, # 90 tablet, 3 Refills, Maintenance, 05/07/23 17:52:00 EST, Tablet, [facility], [...] 3 Refills, Maintenance, 04/22/23 20:57:00 EST, Tablet, [facility] Partial fill upon patient request if the prescription is for a schedule II opioid drug., 163, cm, 04/03/23 15... Start Date: 04/22/23 Status: Ordered Mounjaro 2.5 mg/0.5 mL subcutaneous solution = 2.5 mg, Subcutaneous Injection, Every week, rotate injection sites; use Tirzepatide 0.25mg weeklyx 4 weeks then increase dose, # 4 each, 0 Refills, Maintenance, 08/13/23 19:13:00 EDT, [facility] fill upon patient... Start Date: 08/13/23 Status: Ordered Mounjaro 5 mg/0.5 mL subcutaneous solution = 5 mg, Subcutaneous Injection, Every week, rotate injection sites; use Tirzepatide 0.25mg weekly x4 weeks then increase dose, # 4 each, 0 Refills, Maintenance, 08/13/23 19:14:00 EDT, [facility] fill upon patient re... Start Date: 08/13/23 Status: Ordered Mounjaro 5 mg/0.5 mL subcutaneous solution = 5 mg, Subcutaneous Injection, Every week, d/c dulaglutide, # 4 each, 4 Refills, Maintenance, 09/21/23 13:38:00 EDT, Solution, [facility] Partial fill upon patient request if the prescription is for a schedule II opioid drug., 163, c... Start Date: 09/21/23 Status: Ordered omeprazole 40 mg oral enteric coated capsule 1 capsule, By Mouth, Daily, PRN GERD, # 90 capsule, 3 Refills, Maintenance, 04/22/23 21:00:00 EST, [facility] 163, cm, 04/03/23 15:11:00 EST, Height, 78, kg, 04/03/23 15:11:00 EST, Dry Weight Start Date: 04/22/23 Status: Ordered oxyCODONE 15 mg oral tablet 1 tablet = 15 mg, By Mouth, Every 8 hours, PRN Pain , Severe, [facility] checked. Opioid agreement at [facility], # 84 tablet, 0 Refills, Maintenance, 09/10/23 12:50:00 EDT, [facility], Partial fill upon patient request if the prescription is... Start Date: 09/10/23 Stop Date: 10/08/23 Status: Ordered prazosin 2 mg oral capsule via psychiatry [facility], 0 Refills, Maintenance, 01/19/23 21:19:00 EDT, Partial fill upon patient request if the prescription is for a schedule II opioid drug. Start Date: 01/19/23 Status: Ordered tiZANidine 4 mg oral tablet 1, tablet, By Mouth, 3 times a day, PRN, # 90 tablet, Refills 3, Tot. Refills 3, Maintenance, NEEDED FOR SEVERE PAIN, 05/11/23 8:53:00 EST, Route to Pharmacy Electronically, [facility] 163, cm, 05/07/23 16:54:00 EST, Height, 78, kg... Start Date: 05/11/23 Status: Ordered topiramate 100 mg oral tablet 1 tablet = 100 mg, By Mouth, Daily, increase dose, # 30 tablet, 4 Refills, Maintenance, 08/13/23 19:21:00 EDT, Tablet, [facility] Partial fill upon patient request if the prescription is for a schedule II opioid drug., 163, cm, ... Start Date: 08/13/23 Status: Ordered triamcinolone 55 mcg/inh nasal spray 1 sprays = 55 mcg, Nares, Both, Daily, # 3 each, 3 Refills, Maintenance, 03/05/23 16:29:00 EST, [facility] Partial fill upon patient request if the prescription is for a schedule II opioid drug., 1 sprays Nares, Both Daily, 163, cm, 1... Start Date: 03/05/23 Status: Ordered Trulicity Pen 1.5 mg/0.5 mL subcutaneous solution = 1.5 mg, Subcutaneous Infusion, Every week, # 4 each, 11 Refills, Maintenance, 08/14/23 12:21:00 EDT[facility] upon patient request if the prescription is for a schedule II opioid drug., 163, cm, 08/13/23 18:05:00 EDT,... 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 Charlene Fabian [phone] Confirmed Active Perianal abscess Confirmed Active Syncope and collapse Confirmed Active Tobacco dependence Confirmed Active DM2 (diabetes mellitus, type 2) Confirmed 04/03/17 Active Incontinence of urine 4 Confirmed Active 1seen on MRI 10/2016, rec repeat imaging in October 2017 pain managemnt team/ Dr Diop indicated they thought pain was fibromyalgia 3[place] on CT [place] [facility] [place] 4urge and stress Vital Signs Most recent to oldest [Reference Range]: 1 Height 163 cm (09/14/23 2:23 PM) Weight 76.3 kg (09/14/23 2:23 PM) Pulse Rate [55-90 bpm] 79 bpm (09/14/23 2:23 PM) Body Mass Index [18.5-24.99 kg/m2] 28.72 kg/m2 *H* (09/14/23 2:23 PM) Blood Pressure [90-138/55-84 mm Hg] 148/ 72mm Hg *H* (09/14/23 2:23 PM) Temperature [96.8-100.4 DegF] 99 DegF (09/14/23 2:23 PM) Blood pressure sites Arm, right (09/14/23 2:23 PM) Temperature Route Temporal (09/14/23 2:23 PM) Social History Social History Type Response Tobacco Other: Quit 07/2023. Sex Patient Care team information Care Team Personnel Name: Graciela Thrasher RN Position: [facility] RN Member Role: Primary Care Nurse Name: Stevie Angel RN Position: [facility] RN Member Role: Primary Care Nurse Name: Keily Ortega RN Position: [facility] RN Member Role: Primary Care Nurse Name: Graciela Munroe RN Position: [facility] RN Member Role: Primary Care Nurse Name: Nichole Pichardo RN Position: [facility] RN Member Role: Primary Care Nurse Name: Melvin Whitfield RN Position: [facility] AMB Nurse Member Role: Primary Care Nurse Name: Phuong Berkowitz RN Position: [facility] RN Member Role: Primary Care Nurse Name: Pura Walker MD Position: [facility] Physician - Primary Care Member Role: PCP Address: Address: [address] [place] [address] Adult [place], [place] [address] Name: Joselyn Rain RN Position: [facility] Hospital [employer] Technician Member Role: Primary Care Nurse Care Team Related Persons Name: IRA ROMERO Address: home [address] [place] [address] Name: JHON LARSON Address: [address] [place] [address] Name: JHON LARSON Address: [address] [place] [address] Name: GALO CATALAN Name: CATALAN, JOENALL Address: home [address] [place] [address]
--- OUTSIDE RECORDS SUMMARY | 2023-12-31 10:49 | XMS_ITS | Continuity of Care Document ---
Author Organization [facility] ter Address [address] [place] [id number] Care Team Providers Care Melon Packer Name Role Phone Pura Walker MD Primary Care Physician Encounter [facility] Date(s): 07/31/23 - 07/31/[address] [address]- Encounter Diagnosis Abdominal pain(Final) - 07/31/23 Diverticulosis(Final) - 07/31/23 Diarrhea(Final) - 07/31/23 Discharge Disposition: A-D/C Home Attending Physician: Brian GERARDO, Opal Carey Admitting Physician: Opal Torres MD Referring Physician: Not on Staff, Referring [...] influenza virus vaccine, inactivated 02/16/17 Give n [id number] 12y+ bivalent booster vax 01/30/22 Given SARS-CoV-2 mRNA ([id number]) vax 05/14/21 Given SARS-CoV-2 (COVID-19) mRNA BNT-162b2 [...] 03/05/23 16:21:00 EST, Route to Pharmacy Electronically, [facility], Partial fill upon patient request if the prescription is for a sched... Start Date: 03/05/23 Status: Ordered Advair Diskus 500 mcg-50 mcg inhalation powder 1, inhalation, Inhalation, 2 times a day, rinse mouth and throat after use, # 60 each, Refills 11, Tot. Refills 11, Maintenance, 09/25/22 17:00:00 EDT, Inhaler, Route to Pharmacy Electronically, [id number], [facility]... Start Date: 09/25/22 Status: Ordered All Day Allergy 10 mg oral tablet 1 tablet, By Mouth, Daily, # 90 tablet, 3 Refills, Maintenance, 11/20/22 16:48:00 EDT, [facility], 163, cm, 11/20/22 16:00:00 EDT, Height, 83, kg, 02/11/22 19:19:00 EST, Dry Weight Start Date: 11/20/22 Status: Ordered amLODIPine 5 mg oral tablet 5 mg, 1, tablet, By Mouth, Daily, # 90 tablet, Refills 3, Tot. Refills 3, Maintenance, 03/05/23 16:29:00 EST, Route to Pharmacy Electronically, [facility], Partial fill upon patient request if the prescription is for a schedule II opio... Start Date: 03/05/23 Status: Ordered atorvastatin 40 mg oral tablet 1 tablet = 40 mg, By Mouth, Daily, # 90 tablet, 3 Refills, Maintenance, 09/25/22 16:58:00 EDT, Tablet, [facility] Partial fill upon patient request if the prescription is for a schedule II opioid drug., [place], 09/25/22 16:20:00 EDT,... Start Date: 09/25/22 Status: [...] 5 Refills, Maintenance, 07/08/23 15:30:00 EDT, Tablet, [facility] Partial fill upon patient request if the prescription is for a schedule II opioid drug., [place], 07/08/23 9:38... Start Date: 07/08/23 Status: Ordered cloNIDine 0.3 mg oral tablet 1 tablet = 0.3 mg, By Mouth, Daily at bedtime, # 180 tablet, 0 Refills, Maintenance, 05/07/23 17:53:00 EST, Tablet, Partial fill upon patient request if the prescription is for a schedule II opioid drug. Start Date: 05/07/23 Status: Ordered cloNIDine 0.3 mg oral tablet via psychiatry A [facility], 0 Refills, Maintenance, 01/19/23 21:19:00 EDT, Partial fill upon patient request if the prescription is for a schedule II opioid drug. Start Date: 01/19/23 Status: Ordered clotrimazole 1% topical cream See Instructions, APPLY TOPICALLY TO AFFECTED AREA TWO TIMES A DAY FOR TWO WEEKS, # 30 Gm, 2 Refills, Maintenance, 05/07/23 17:52:00 EST, [facility] 15, APPLY TOPICALLY TO AFFECTED AREA TWO TIMES A DAY FOR TWO WEEKS, 163, [place], ... Start Date: 05/07/23 Status: Ordered diclofenac 1% topical gel 1 application, Topically, 4 times a day, # 100 Gm, 4 Refills, Maintenance, 03/05/23 16:21:00 EST, Gel, [facility] Partial fill upon patient request if the prescription is for a schedule II opioid drug., 163, cm, 03/05/23 15:09:00 EST,... Start Date: 03/05/23 Status: Ordered docusate-senna 50 mg-187 mg oral tablet 2 tablet, By Mouth, 2 times a day, PRN Constipation, # 360 tablet, 3 Refills, Maintenance, 03/05/2316:29:00 EST, Tablet, [facility] Partial fill upon patient request if the prescription is for a schedule II opioid drug., 2 tablet By... Start Date: 03/05/23 Status: Ordered duloxetine 20 mg oral enteric coated capsule 1 capsule, By Mouth, Daily at bedtime, # 30 capsule, 1 Refills, Maintenance, 05/07/23 17:40:00 EST,[facility], 163, cm, 05/07/23 16:54:00 EST, Height, 78, [...] 3 Refills, Maintenance, 09/25/22 17:01:00 EDT, Tablet, [facility] Partial fill upon patient request if the prescription is for aschedule II opioid drug., 163, cm, 09/25/22 16:20:0... Start Date: 09/25/22 Status: Ordered ibuprofen 800 mg oral tablet 1, tablet, By Mouth, 3 times a day, PRN, # 90 tablet, Refills 0, Maintenance, NEEDED FOR PAIN, 05/07/23 17:40:00 EST, Route to Pharmacy Electronically, [facility], 163, cm, 05/07/23 16:54:00 EST, Height, 78, kg, 04/03/23 15:11:00 EST, Dry... Start Date: 05/07/23 Status: Ordered ipratropium nasal 21 mcg/inh spray See Instructions, PRN Nasal Congestion, 1 spray each nostril BID, # 1 each, 4 Refills, Maintenance,07/29/23 15:10:00 EDT, [facility], Partial fill upon patient request if the prescription is for a schedule II opioid drug., 1 spray eac... Start Date: 07/29/23 Status: Ordered lidocaine 5% topical film 1 patch, Topically, Daily, PRN Pain , Mild, remove after 12 hours, # 13 each, 5 Refills, Maintenance, 09/25/22 16:59:00 EDT, Film, [facility], Partial fill upon patient request if theprescription is for a schedule II opioid drug., 1 p... Start Date: 09/25/22 Status: Ordered Lidoderm 5% film 2 patch, Topically, Daily, remove patches after 12 hours; 2 patches to pain areas; can cut patches in half; do not excede 2 patches., # 60 patch, 4 Refills, Maintenance, 03/05/23 16:22:00 EST, [facility], Partial fill upon patient requ... Start Date: 03/05/23 Stop Date: 08/02/23 Status: Ordered lisinopril 20 mg oral tablet 20 mg, 1, tablet, By Mouth, Daily, # 90 tablet, Refills 3, Tot. Refills 3, Maintenance, 11/20/22 16:48:00 EDT, Route to Pharmacy Electronically, [facility] 163, cm, 11/20/22 16:00:00EDT, Height, 83, kg, 02/11/22 19:19:00 EST, Dry Weight Start Date: 11/20/22 Status: Ordered melatonin 10 mg oral tablet 1 tablet = 10 mg, By Mouth, Daily at bedtime, PRN as needed for insomnia, # 90 tablet, 3 Refills, Maintenance, 05/07/23 17:52:00 EST, Tablet, [facility], Partial fill upon [...] 3 Refills, Maintenance, 04/22/23 20:57:00 EST, Tablet, [facility], Partial fill upon patient request if the prescription is for a schedule II opioid drug., 163, cm, 04/03/23 15... Start Date: 04/22/23 Status: Ordered omeprazole 40 mg oral enteric coated capsule 1 capsule, By Mouth, Daily, PRN GERD, # 90 capsule, 3 Refills, Maintenance, 04/22/23 21:00:00 EST, [facility]., 163, cm, 04/03/23 15:11:00 EST, Height, 78, kg, 04/03/23 15:11:00 EST, Dry Weight Start Date: 04/22/23 Status: Ordered oxyCODONE 15 mg oral tablet 1 tablet = 15 mg, By Mouth, Every 8 hours, PRN Pain , Severe, [employer] checked. Opioid agreement at [facility], # 84 tablet, 0 Refills, Maintenance, 07/20/23 10:39:00 EDT, [facility]., Partial fill upon patient request [...] 05/11/23 8:53:00 EST, Route to Pharmacy Electronically, [facility] 163, cm, 05/07/23 16:54:00 EST, Height, 78, kg... Start Date: 05/11/23 Status: Ordered topiramate 25 mg oral capsule 2 capsule = 50 mg, By Mouth, Daily, take 1 cap daily x 2 weeks then 2 caps daily, # 60 capsule, 4 Refills, Maintenance, 03/05/23 16:23:00 EST, Capsule, [facility]., Partial fill upon patient request if the prescription is for a schedule... Start Date: 03/05/23 Status: Ordered triamcinolone 55 mcg/inh nasal spray 1 sprays = 55 mcg, Nares, Both, Daily, # 3 each, 3 Refills, Maintenance, 03/05/23 16:29:00 EST, [facility]., Partial fill upon patient request if the prescription is for a schedule II opioid drug., 1 sprays Nares, Both Daily, 163, cm, 1... Start Date: 03/05/23 Status: Ordered Trulicity Pen 1.5 mg/0.5 mL subcutaneous solution = 1.5 mg, Subcutaneous Infusion, Every week, # 4 each, 11 Refills, Maintenance, 11/20/22 16:49:00 EDT, [facility]., Partial fill upon patient request if the prescription is for a schedule II opioid drug., 163, cm, 11/20/22 16:00:00 EDT,... 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 Caren [phone] Confirmed Active Perianal abscess Confirmed Active Syncope and collapse Confirmed Active Tobacco dependence Confirmed Active DM2 (diabetes mellitus, type 2) Confirmed 04/03/17 Active Incontinence of urine 4 Confirmed Active 1seen on MRI 10/2016, rec repeat imaging in October 2017 pain managemnt team/ Dr Diop indicated they thought pain was fibromyalgia 3seen on CT Abd 09/18/16 at [facility], pending MRI 4urge and stress Results Radiology Reports * Exam Date Time Procedure Performing Provider Status 07/31/23 12:[address] Abd/Pelvis W/ IV + Oral Contrast Eve Mckeon; Auth (Verified) Notes: (CT Abd/Pelvis W/ IV + Oral Contrast) Reason For Exam: Epigastric abdominal pain;Other: RESULT: CT Abd/Pelvis W/ IV + Oral Contrast CT Abd/Pelvis W/ IV + Oral Contrast Hx of Present Illness: here with midline abdominal pain with associated chills and diarrhea ongoingfor 1 week endorses very dry mouth and mouth irritation; Reason: Other:; Epigastric abdominal pain;Clinical Question(s): Diverticulitis; Order Comment: TECHNIQUE: Spiral CT through the abdomen and pelvis with IV contrast formatted in 3 planes. 100 cc of Omnipaque 300 was administered intravenously. This study was performed with oral contrast. Weight-based protocol using automatic tube modulation was used to optimize exposure parameters. CTDIvol Body: 15.00 mGy, DLP Body: 829 mGy*cm. COMPARISON: CT abdomen and pelvis 11/20/2016 . MRI abdomen 02/04/2022.. FINDINGS: Seasonal Tax Preparer View Findings, Lines and Tubes: None. Visualized Chest: Mild bibasilar atelectasis. No pleural effusion. The heart is normal in size. No pericardial effusion. Diaphragm: Normal. Liver: [1 cm enhancing lesion in the posterior right hepatic lobe in segment 7, decreased in conspicuity since CT of 2017 but similar in size to MRI of 2021, likely flash filling hemangioma as suggested on MRI. Gallbladder: Absent consistent with prior cholecystectomy. Bile ducts: No biliary ductal dilation. Spleen: Normal. Pancreas: Known small pancreatic cystic lesions were better seen on prior MRI, not well appreciatedon CTA. Pancreas appears atrophic. No ductal dilatation. Adrenal glands: Normal. Kidneys and ureters: No hydronephrosis, stones, or suspicious masses. Simple appearing left renal cyst is noted, as seen on MRI, requiring no dedicated follow up. Bladder: Normal. Reproductive organs: Uterus is surgically absent. No adnexal mass.. Stomach, small bowel, and large bowel: Enteric contrast reaches the distal small bowel. There is noevidence of obstruction. Moderate retained stool is present in the colon, with fluid levels, which may reflect diarrhea. Moderate colonic diverticulosis is noted. There is no surrounding inflammatorychange to suggest diverticulitis or colitis. Appendix: Normal. Peritoneum and retroperitoneum: No ascites or pneumoperitoneum. No omental or mesenteric lesions. Lymph nodes: No enlarged lymph nodes. Blood vessels: Normal. No aneurysm. No evidence of venous thrombosis. Abdominal and pelvic wall: No acute abnormality. Calcified granuloma in the subcutaneous fat of theright buttock.. Bones: No acute abnormality. Mild degenerative changes of the spine. IMPRESSION: 1. No acute abnormality of the abdomen and pelvis. 2. Colonic diverticulosis without diverticulitis. 3. Moderate retained fecal material in the colon with fluid levels, which can be seen in the setting of diarrhea, but no significant surrounding inflammatory change. WSN: [id number] Ordering Physician: Nanda Jha Dictated By: Maylin Soto MD Dictated Date/Time: 07/31/23 1:25 pm Reviewed By: Maylin Soto MD Signed By: Maylin Soto MD Signed Date/Time: 07/31/23 1:25 pm Transcribed By: WILVER Transcribed Date/Time: 07/31/23 1:12 pm Vital Signs Most recent to oldest [Reference Range]: 1 2 3 Weight 76.6 kg (07/31/23 10:03 AM) 76.6 kg (07/31/23 9:14 AM) 76.6 kg (07/31/23 7:10 AM) Oxygen Saturation [94-100 %] 100 % (07/31/23 2:22 PM) 100 % (07/31/23 11:22 AM) 97 % (07/31/23 10:03 AM) Pulse Rate [55-90 bpm] 73 bpm (07/31/23 2:22 PM) 58 bpm (07/31/23 11:22 AM) 58 bpm (07/31/23 10:03 AM) Blood Pressure [90-138/55-84 mm Hg] 128/81mm Hg (07/31/23 2:22 PM) 130/85mm Hg (07/31/23 11:22 AM) 95/68mm Hg (07/31/23 10:03 AM) Respiratory Rate [16-30 br/min] 16 br/min (07/31/23 2:22 PM) 13 br/min *L* (07/31/23 11:22 AM) 19 br/min (07/31/23 10:03 AM) Temperature [96.8-100.4 DegF] 98.5 DegF (07/31/23 2:22 PM) 97.9 DegF (07/31/23 11:22 AM) 98.2 DegF (07/31/23 6:17 AM) Mode of Delivery (Oxygen) Room air (07/31/23 2:22 PM) Room air (07/31/23 11:22 AM) Room air (07/31/23 10:03 AM) Blood pressure sites Arm, left (07/31/23 2:22 PM) Arm, left (07/31/23 11:22 AM) Arm, left (07/31/23 10:03 AM) Temperature Route Oral (07/31/23 2:22 PM) Oral (07/31/23 11:22 AM) Oral (07/31/23 5:31 AM) Social History Social History Type Response Tobacco Other: Quit 07/2023. Sex EKG study * Event Display: ECG 12-Lead Authored Date: Please click on pdf link to open report * Event Display: ECG 12-Lead Authored Date: Ventricular Rate: 71 BPM Atrial Rate: 71 BPM P-R Interval: 176 ms QRS Duration: 96 ms Q-T Interval: 396 ms QTC Calculation(Bazett): 430 ms P Goehner: 49 degrees R Goehner: 6 degrees T Goehner: -14 degrees Normal sinus rhythm Nonspecific T wave abnormality Abnormal ECG When compared with ECG of 11-JUL-2022 14:55, No significant change was found Confirmed by Stevie Jose ([id number]) on 07/31/2023 7:29:40 AM Also confirmed by Stevie Jose ([id number]) on 07/31/2023 7:33:33 AM [place]: Stevie Jose Note * Nanda Jha MD: PERFORM Event Display: Patient Education Leaflets Authored Date: [id number] Unknown Causes of Abdominal Pain(Adult) ?? [id number] Unknown Causes of Abdominal Pain(Adult) The exact cause of your belly (abdominal) pain is not clear. Your exam and tests don't suggest a dangerous cause at this time. This does not mean that this is something to worry about. Everyone likesto know the exact cause of the problem. But sometimes with belly pain, there is no clear-cut cause,and this could be a good thing. Your symptoms can be treated, and you should feel better.?? Your condition does not seem serious now. But sometimes the signs of a serious problem may take more time to appear. For this reason,??it's important for you to watch for any new symptoms, problems,??or worsening of your condition. Over the next few days, the abdominal pain may come and go. Or it may be constant. Other common symptoms can include nausea and vomiting. Sometimes it can be difficult to tell if you feel nauseous. You may just feel bad and not connect that feeling to nausea. Constipation, diarrhea, and a fever maygo along with the pain. The pain may continue even if treated correctly over the following days. Depending on how things go, sometimes the cause can become clear and you may need more??or different treatment. You may also need other evaluations, medicines, or tests. Home care Your healthcare provider may prescribe medicine for pain, symptoms, or an infection. ??Follow the healthcare provider's instructions for taking these medicines. General care ??? Rest as much as you can until your next exam. No strenuous activities. ??? Try to not do anything that may have caused your symptoms. This might be not taking any medicines unless otherwise directed by your healthcare provider. It might be not eating certain foods or doing certain activities. ??? Find positions that ease discomfort. A small pillow placed on your belly may help relieve pain. ??? Something warm on your belly such as a heating pad may help, but be careful not to burn yourself. Diet ??? Don???t??force yourself to eat, especially if having cramps, vomiting, or diarrhea. ??? Water is important so you don't get dehydrated. Soup may also be good. Sports drinks may also help, especially if they are not too acidic. Don't drink sugary drinks as this can make things worse. Take liquids in small amounts. Don???t??guzzle them. ??? Caffeine sometimes makes the pain and cramping worse. ??? Don???t take??dairy products if you have vomiting or diarrhea. ??? Don't eat large amounts at a time. Eat several small meals during the day instead of 2 or 3 larger meals. Wait a few minutesbetween bites. ??? Eat a diet low in fiber (called a low-residue diet). Foods allowed include refined breads, white rice, fruit and vegetable juices without pulp, tender meats. These foods will pass more easily through the intestine. ??? Don???t have??whole-grain foods, whole fruits and vegetables,meats, seeds and nuts, fried or fatty foods, dairy, alcohol and spicy foods until your symptoms go away. ?? Follow-up care Follow up with your healthcare provider, or as advised, if your pain does not begin to improve in the next 24 hours. ?? Call 911 Call?? 911 if any of these occur: ??? Trouble breathing ??? Confusion ??? Fainting or loss of consciousness ??? Rapid heart rate ??? Seizure ?? When to seek medical advice Call your healthcare provider right away if any of these occur: ??? Pain gets worse or moves to theright lower abdomen ??? New or worsening vomiting or diarrhea ??? Swelling of the abdomen ??? Unable to pass stool for more than??3 days ??? Fever of 100.4??F (38??C) or higher, or as directed by your healthcare provider ??? Blood in vomit or bowel movements (dark red or black color) ??? Yellow color of eyes and skin (jaundice) ??? Weakness, dizziness ??? Chest, arm, back, neck, or jaw pain ??? Can't keep down medicines, liquids, or water because of too much vomiting ??? If you have a vagina: unexpected vaginal bleeding or missed period ?? Last Reviewed Date: 2021 ?? [id number] [employer]. All rights reserved. This information is not intended as a substitute for professional medical care. Always follow your healthcare professional's instructions. ?? Patient Care team information Care Team Personnel Name: Graciela Thrasher RN Position: [facility] RN Member Role: Primary Care Nurse Name: Stevie Angel RN Position: [facility] RN Member Role: Primary Care Nurse Name: Keily Ortega RN Position: [facility] RN Member Role: Primary Care Nurse Name: Graciela Munroe RN Position: [facility] RN Member Role: Primary Care Nurse Name: Nichole Pichardo RN Position: [facility] RN Member Role: Primary Care Nurse Name: Melvin Whitfield RN Position: [facility] Nurse Member Role: Primary Care Nurse Name: Phuong Berkowitz RN Position: [facility] RN Member Role: Primary Care Nurse Name: Pura Walker MD Position: [facility] Physician - Primary Care Member Role: PCP Address: Address: [address] [place] [id number] Name: Joselyn Rain RN Position: [facility] Hospital Manager Software Development Member Role: Primary Care Nurse Care Team Related Persons Name: NANDA ROMERO Address: home [address] [place] [address] Name: JHON LARSON Address: [address] [place] [address] Name: JHON LARSON Address: [address] [place] [address] Name: GALO CATALAN Name: NANCY CATALAN Address: home [address] [place] [address]
--- OUTSIDE RECORDS SUMMARY | 2023-12-31 10:49 | XMS_ITS | Continuity of Care Document ---
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 Name Role Phone Aaron GERARDO, Pura Mahajan Primary Care Physician [facility]23 - 11/08/23 [facility] [address] [place], [place] [phone] Allergies, Adverse Reactions, Alerts Substance Reaction Severity [...] influenza virus vaccine, inactivated 02/16/17 Give n [id number] 12y+ bivalent booster vax 01/30/22 Given SARS-CoV-2 mRNA ([id number]) vax 05/14/21 Given SARS-CoV-2 (COVID-19) mRNA BNT-162b2 [...] 03/05/23 16:21:00 EST, Route to Pharmacy Electronically, [facility], Partial fill upon patient request if the prescription is for a sched... Start Date: 03/05/23 Status: Ordered Advair Diskus 500 mcg-50 mcg inhalation powder 1, inhalation, Inhalation, 2 times a day, rinse mouth and throat after use, # 60 each, Refills 11, Tot. Refills 11, Maintenance, 08/13/23 20:46:00 EDT, Inhaler, Route to Pharmacy Electronically, [id number], [facility]-... Start Date: 08/13/23 Status: Ordered All Day Allergy 10 mg oral tablet 1 tablet, By Mouth, Daily, # 90 tablet, 3 Refills, Maintenance, 08/13/23 20:47:00 EDT, [facility]., 163, cm, 08/13/23 18:05:00 EDT, Height, 78, kg, 04/03/23 15:11:00 EST, Dry Weight Start Date: 08/13/23 Status: Ordered amLODIPine 10 mg oral tablet 10 mg, 1, tablet, By Mouth, Daily, # 30 tablet, Refills 4, Tot. Refills 4, Maintenance, 08/13/23 19:14:00 EDT, Route to Pharmacy Electronically, [facility], Partial fill upon patient request if the prescription is for a schedule II opi... Start Date: 08/13/23 Status: Ordered atorvastatin 40 mg oral tablet 1 tablet = 40 mg, By Mouth, Daily, # 90 tablet, 3 Refills, Maintenance, 08/13/23 20:46:00 EDT, Tablet, [facility]., Partial fill upon patient request [...] 5 Refills, Maintenance, 07/08/23 15:30:00 EDT, Tablet, [facility]., Partial fill upon patient request [...] Gm, 2 Refills, Maintenance, 05/07/23 17:52:00 EST, [facility] 15, APPLY TOPICALLY TO AFFECTED AREA TWO TIMES A DAY FOR TWO WEEKS, 163, eugenia, ... Start Date: 05/07/23 Status: Ordered diclofenac 1% topical gel 1 application, Topically, 4 times a day, # 100 Gm, 4 Refills, Maintenance, 03/05/23 16:21:00 EST, Gel, [facility] Partial fill upon patient request if the prescription is for a schedule II opioid drug., 163, eugenia, 03/05/23 15:09:00 EST,... Start Date: 03/05/23 Status: Ordered docusate-senna 50 mg-187 mg oral tablet 2 tablet, By Mouth, 2 times a day, PRN Constipation, # 360 tablet, 3 Refills, Maintenance, 03/05/2316:29:00 EST, Tablet, [facility]., Partial fill upon patient request if the prescription is for a schedule II opioid drug., 2 tablet By... Start Date: 03/05/23 Status: Ordered duloxetine 20 mg oral enteric coated capsule 1 capsule, By Mouth, Daily at bedtime, # 30 capsule, 1 Refills, Maintenance, 05/07/23 17:40:00 EST[facility], [facility], cm, 05/07/23 16:54:00 EST, Height, 78, kg, 04/03/23 15:11:00 EST, Dry Weight Start Date: 05/07/23 Status: Ordered empagliflozin 25 mg oral tablet 1 tablet = 25 mg, By Mouth, Daily in AM, # 90 tablet, 1 Refills, Maintenance, 11/06/23 14:33:00 EDT, Tablet, [facility], Partial fill upon [...] 1 each, 4 Refills, Maintenance,07/29/23 15:10:00 EDT, [facility], Partial fill upon patient request if the prescription is for a schedule II opioid drug., 1 spray eac... Start Date: 07/29/23 Status: Ordered Lidoderm 5% film 2 patch, Topically, Daily, remove patches after 12 hours; 2 patches to pain areas; can cut patches in half; do not excede 2 patches., # 180 patch, 3 Refills, Maintenance, 08/13/23 19:20:00 EDT, [facility], Partial fill upon patient req... Start Date: 08/13/23 Stop Date: 08/07/24 Status: Ordered lisinopril 20 mg oral tablet 20 mg, 1, tablet, By Mouth, Daily, # 90 tablet, Refills 3, Tot. Refills 3, Maintenance, 08/13/23 20:46:00 EDT, Route to Pharmacy Electronically, [facility]., 163, cm, 08/13/23 18:05:00EDT, Height, 78, kg, 04/03/23 15:11:00 EST, Dry Weight Start Date: 08/13/23 Status: Ordered melatonin 10 mg oral tablet 1 tablet = 10 mg, By Mouth, Daily at bedtime, PRN as needed for insomnia, # 90 tablet, 3 Refills, Maintenance, 05/07/23 17:52:00 EST, Tablet, [facility], Partial fill upon patient [...] 3 Refills, Maintenance, 04/22/23 20:57:00 EST, Tablet, [facility]., Partial fill upon patient request if the prescription is for a schedule II opioid drug., 163, cm, 04/03/23 15... Start Date: 04/22/23 Status: Ordered Mounjaro 5 mg/0.5 mL subcutaneous solution = 5 mg, Subcutaneous Injection, Every week, rotate injection sites; use Tirzepatide 0.25mg weekly x4 weeks then increase dose, # 4 each, 4 Refills, Maintenance, 10/22/23 20:13:00 EDT, Solution, [facility]., Partial fill upon patient re... Start Date: 10/22/23 Status: Ordered Mounjaro 5 mg/0.5 mL subcutaneous solution = 5 mg, Subcutaneous Injection, Every week, d/c dulaglutide, # 4 each, 4 Refills, Maintenance, 09/21/23 13:38:00 EDT, Solution, [facility] Partial fill upon patient request if the prescription is for a schedule II opioid drug., 163, c... Start Date: 09/21/23 Status: Ordered omeprazole 40 mg oral enteric coated capsule 1 capsule, By Mouth, Daily, PRN GERD, # 90 capsule, 3 Refills, Maintenance, 04/22/23 21:00:00 EST[facility] 163, cm, 04/03/23 15:11:00 EST, Height, 78, kg, 04/03/23 15:11:00 EST, Dry Weight Start Date: 04/22/23 Status: Ordered oxyCODONE 15 mg oral tablet 1 tablet = 15 mg, By Mouth, Every 8 hours, PRN Pain , Severe, [employer] checked. Opioid agreement at [facility], # 84 tablet, 0 Refills, Maintenance, 10/09/23 15:23:00 EDT, [facility]., Partial fill upon patient request [...] 10/09/23 13:08:00 EDT, Route to Pharmacy Electronically, [facility], 163, cm, 09/14/23 14:23:00 EDT, Height, 78, kg, 04/03/23 15:11:00 E... Start Date: 10/09/23 Status: Ordered topiramate 100 mg oral tablet 1 tablet = 100 mg, By Mouth, Daily, increase dose, # 30 tablet, 4 Refills, Maintenance, 08/13/23 19:21:00 EDT, Tablet, [facility]., Partial fill upon patient request if the prescription is for a schedule II opioid drug., 163, cm, ... Start Date: 08/13/23 Status: Ordered triamcinolone 55 mcg/inh nasal spray 1 sprays = 55 mcg, Nares, Both, Daily, # 3 each, 3 Refills, Maintenance, 03/05/23 16:29:00 EST, [facility]., Partial fill upon patient request if the prescription is for a schedule II opioid drug., 1 sprays Nares, Both Daily, 163, cm, 1... 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 Fabian [phone] Confirmed Active Perianal abscess Confirmed Active Syncope [...] Team Personnel Name: Graciela Thrasher RN Position: [facility] RN [...] Whitfield RN Position: [facility] RASHID Nurse Member Role: Primary Care Nurse Name: Phuong Berkowitz RN Position: [facility] RN Member Role: Primary Care Nurse Name: Pura Walker MD Position: [facility] Physician - Primary Care Member Role: PCP Address: Address: [address] [place] [address] [place] [address]- Name: Joselyn Rain RN Position: [facility] [employer] Hose Cutter Member Role: Primary Care Nurse Care Team Related Persons Name: IRA ROMERO Address: home [address] [place] [address] Name: JHON LARSON Address: [address] [place] [address] Name: JHON LARSON Address: [address] [place] [address] Name: GALO CATALAN Name: NANCY CATALAN Address: home [address] [place] [address]
--- OUTSIDE RECORDS SUMMARY | 2023-12-31 10:50 | XMS_ITS | Continuity of Care Document ---
Author Organization 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 [address] [place], [place] [phone] Encounter Diagnosis INA (stress urinary incontinence, female)(Discharge [...] influenza virus vaccine, inactivated 02/16/17 Give n [id number] 12y+ bivalent booster vax 01/30/22 Given SARS-CoV-2 mRNA (qnvwbmn-tzry-wygjv) vax 05/14/21 Given SARS-CoV-2 (COVID-19) mRNA BNT-162b2 [...] 03/05/23 16:21:00 EST, Route to Pharmacy Electronically, [facility], Partial fill upon patient request if the prescription is for a sched... Start Date: 03/05/23 Status: Ordered Advair Diskus 500 mcg-50 mcg inhalation powder 1, inhalation, Inhalation, 2 times a day, rinse mouth and throat after use, # 60 each, Refills 11, Tot. Refills 11, Maintenance, 08/13/23 20:46:00 EDT, Inhaler, Route to Pharmacy Electronically, [id number], [facility]-... Start Date: 08/13/23 Status: Ordered All Day Allergy 10 mg oral tablet 1 tablet, By Mouth, Daily, # 90 tablet, 3 Refills, Maintenance, 08/13/23 20:47:00 EDT, [facility], 163, cm, 08/13/23 18:05:00 EDT, Height, 78, kg, 04/03/23 15:11:00 EST, Dry Weight Start Date: 08/13/23 Status: Ordered amLODIPine 10 mg oral tablet 10 mg, 1, tablet, By Mouth, Daily, # 30 tablet, Refills 4, Tot. Refills 4, Maintenance, 08/13/23 19:14:00 EDT, Route to Pharmacy Electronically, [facility], Partial fill upon patient request if the prescription is for a schedule II opi... Start Date: 08/13/23 Status: Ordered atorvastatin 40 mg oral tablet 1 tablet = 40 mg, By Mouth, Daily, # 90 tablet, 3 Refills, Maintenance, 08/13/23 20:46:00 EDT, Tablet, [facility] Partial fill upon patient request [...] 5 Refills, Maintenance, 07/08/23 15:30:00 EDT, Tablet, [facility] Partial fill upon patient request [...] Gm, 2 Refills, Maintenance, 05/07/23 17:52:00 EST, [facility] 15, APPLY TOPICALLY TO AFFECTED AREA TWO TIMES A DAY FOR TWO WEEKS, 163, cm, ... Start Date: 05/07/23 Status: Ordered diclofenac 1% topical gel 1 application, Topically, 4 times a day, # 100 Gm, 4 Refills, Maintenance, 03/05/23 16:21:00 EST, Gel, [facility] Partial fill upon patient request if the prescription is for a schedule II opioid drug., 163, eugenia, 03/05/23 15:09:00 EST,... Start Date: 03/05/23 Status: Ordered docusate-senna 50 mg-187 mg oral tablet 2 tablet, By Mouth, 2 times a day, PRN Constipation, # 360 tablet, 3 Refills, Maintenance, 03/05/2316:29:00 EST, Tablet, [facility], Partial fill upon patient request if the prescription is for a schedule II opioid drug., 2 tablet By... Start Date: 03/05/23 Status: Ordered duloxetine 20 mg oral enteric coated capsule 1 capsule, By Mouth, Daily at bedtime, # 30 capsule, 1 Refills, Maintenance, 05/07/23 17:40:00 EST,[facility], 163, cm, 05/07/23 16:54:00 EST, Height, 78, kg, 04/03/23 15:11:00 EST, Dry Weight Start Date: 05/07/23 Status: Ordered empagliflozin 25 mg oral tablet 1 tablet = 25 mg, By Mouth, Daily in AM, # 90 tablet, 1 Refills, Maintenance, 11/06/23 14:33:00 EDT, Tablet, [facility]., Partial fill upon patient request [...] 1 each, 4 Refills, Maintenance,07/29/23 15:10:00 EDT, [facility], Partial fill upon patient request if the prescription is for a schedule II opioid drug., 1 spray eac... Start Date: 07/29/23 Status: Ordered Lidoderm 5% film 2 patch, Topically, Daily, remove patches after 12 hours; 2 patches to pain areas; can cut patches in half; do not excede 2 patches., # 180 patch, 3 Refills, Maintenance, 08/13/23 19:20:00 EDT, [facility], Partial fill upon patient req... Start Date: 08/13/23 Stop Date: 08/07/24 Status: Ordered lisinopril 20 mg oral tablet 20 mg, 1, tablet, By Mouth, Daily, # 90 tablet, Refills 3, Tot. Refills 3, Maintenance, 08/13/23 20:46:00 EDT, Route to Pharmacy Electronically, [facility], 163, cm, 08/13/23 18:05:00EDT, Height, 78, kg, 04/03/23 15:11:00 EST, Dry Weight Start Date: 08/13/23 Status: Ordered melatonin 10 mg oral tablet 1 tablet = 10 mg, By Mouth, Daily at bedtime, PRN as needed for insomnia, # 90 tablet, 3 Refills, Maintenance, 05/07/23 17:52:00 EST, Tablet, [facility], Partial fill upon patient [...] 3 Refills, Maintenance, 04/22/23 20:57:00 EST, [facility] [...] 4 Refills, Maintenance, 10/22/23 20:13:00 EDT, [facility] fill upon patient re... Start Date: 10/22/23 Status: Ordered Mounjaro 5 mg/0.5 mL subcutaneous solution = 5 mg, Subcutaneous Injection, Every week, d/c dulaglutide, # 4 each, 4 Refills, Maintenance, 09/21/23 13:38:00 EDT, Solution, [facility] Partial fill upon patient request if the prescription is for a schedule II opioid drug., 163, c... Start Date: 09/21/23 Status: Ordered omeprazole 40 mg oral enteric coated capsule 1 capsule, By Mouth, Daily, PRN GERD, # 90 capsule, 3 Refills, Maintenance, 04/22/23 21:00:00 EST, [facility] 163, cm, 04/03/23 15:11:00 EST, Height, 78, kg, 04/03/23 15:11:00 EST, Dry Weight Start Date: 04/22/23 Status: Ordered oxyCODONE 15 mg oral tablet 1 tablet = 15 mg, By Mouth, Every 8 hours, PRN Pain , Severe, [employer] checked. Opioid agreement at [facility], # 84 tablet, 0 Refills, Maintenance, 12/08/23 13:52:00 EDT, [facility], Partial fill upon patient request if the prescription is... Start Date: 12/08/23 Stop Date: 01/05/24 Status: Ordered prazosin 2 mg oral capsule [...] 10/09/23 13:08:00 EDT, [facility], 163, cm, 09/14/23 14:23:00 EDT, Height, 78, kg, 04/03/23 15:11:00 E... Start Date: 10/09/23 Status: Ordered topiramate 100 mg oral tablet 1 tablet = 100 mg, By Mouth, Daily, increase dose, # 30 tablet, 4 Refills, Maintenance, 08/13/23 19:21:00 EDT, Tablet, [facility], Partial fill upon patient request if the prescription is for a schedule II opioid drug., 163, cm, ... Start Date: 08/13/23 Status: Ordered triamcinolone 55 mcg/inh nasal spray 1 sprays = 55 mcg, Nares, Both, Daily, # 3 each, 3 Refills, Maintenance, 03/05/23 16:29:00 EST, [facility]., Partial fill upon patient request if the prescription is for a schedule II opioid drug., 1 sprays Nares, Both Daily, 163, cm, 1... 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 Sex Radiology * Event Display: MRI Spine, Non- BH Authored Date: * Event Display: MRI Spine, Non- BH Authored Date: * Event Display: X-Ray Spine, Non- BH Authored Date: * Event Display: MRI Spine, Non- BH Authored Date: * Event Display: IR Special Procedures, Non-BH Authored Date: Patient Care team information Care Team Personnel Name: Graciela Thrasher RN Position: [facility] SN RN Member Role: Primary Care Nurse Name: Stevie Angel RN Position: [facility] RN Member Role: Primary Care Nurse Name: Keily Ortega RN Position: [facility] RN Member Role: Primary Care Nurse Name: Graciela Munroe RN Position: [facility] RN Member Role: Primary Care Nurse Name: Nichole Pichardo RN Position: [facility] RN Member Role: Primary Care Nurse Name: Melvin Whitfield RN Position: [facility] AMB Nurse Member Role: Primary Care Nurse Name: Phuong Berkowitz RN Position: [facility] RN Member Role: Primary Care Nurse Name: Pura Walker MD Position: [facility] Physician - Primary Care Member Role: PCP Address: Address: [address] [place] [id number] Name: Joselyn Rain RN Position: [facility] Tank Cooper Member Role: Primary Care Nurse Care Team Related Persons Name: IRA ROMERO Address: home [address] [place] [address] Name: JHON LARSON Address: [address] [place] [address] Name: JHON LARSON Address: [address] [place] [address] Name: GALO CATALAN Name: NANCY CATALAN Address: home [address] [place] [address]
--- OUTSIDE RECORDS SUMMARY | 2023-12-31 10:50 | XMS_ITS | Continuity of Care Document ---
Author Organization [facility] Address [address] [place] [address]- Care Team Providers Care Radiologist Name Role Phone Aaron GERARDO, Pura Mahajan Primary Care Physician [phone] [facility]23 - 10/11/23 [facility] [address] [place] [address]- Allergies, Adverse Reactions, Alerts Substance Reaction Severity [...] influenza virus vaccine, inactivated 02/16/17 Give n [id number] 12y+ bivalent booster vax 01/30/22 Given SARS-CoV-2 mRNA ([id number]) vax 05/14/21 Given SARS-CoV-2 (COVID-19) mRNA BNT-162b2 [...] 03/05/23 16:21:00 EST, Route to Pharmacy Electronically, [facility], Partial fill upon patient request if the prescription is for a sched... Start Date: 03/05/23 Status: Ordered Advair Diskus 500 mcg-50 mcg inhalation powder 1, inhalation, Inhalation, 2 times a day, rinse mouth and throat after use, # 60 each, Refills 11, Tot. Refills 11, Maintenance, 08/13/23 20:46:00 EDT, Inhaler, Route to Pharmacy Electronically, [id number], [facility]-... Start Date: 08/13/23 Status: Ordered All Day Allergy 10 mg oral tablet 1 tablet, By Mouth, Daily, # 90 tablet, 3 Refills, Maintenance, 08/13/23 20:47:00 EDT, [facility]., 163, cm, 08/13/23 18:05:00 EDT, Height, 78, kg, 04/03/23 15:11:00 EST, Dry Weight Start Date: 08/13/23 Status: Ordered amLODIPine 10 mg oral tablet 10 mg, 1, tablet, By Mouth, Daily, # 30 tablet, Refills 4, Tot. Refills 4, Maintenance, 08/13/23 19:14:00 EDT, Route to Pharmacy Electronically, [facility], Partial fill upon patient request if the prescription is for a schedule II opi... Start Date: 08/13/23 Status: Ordered atorvastatin 40 mg oral tablet 1 tablet = 40 mg, By Mouth, Daily, # 90 tablet, 3 Refills, Maintenance, 08/13/23 20:46:00 EDT, Tablet, [facility], Partial fill upon patient [...] 5 Refills, Maintenance, 07/08/23 15:30:00 EDT, Tablet, [facility] Partial fill upon patient [...] Gm, 2 Refills, Maintenance, 05/07/23 17:52:00 EST, [facility] 15, APPLY TOPICALLY TO AFFECTED AREA TWO TIMES A DAY FOR TWO WEEKS, 163, eugenia, ... Start Date: 05/07/23 Status: Ordered diclofenac 1% topical gel 1 application, Topically, 4 times a day, # 100 Gm, 4 Refills, Maintenance, 03/05/23 16:21:00 EST, Gel, [facility] Partial fill upon patient request if the prescription is for a schedule II opioid drug., 163, eugenia, 03/05/23 15:09:00 EST,... Start Date: 03/05/23 Status: Ordered docusate-senna 50 mg-187 mg oral tablet 2 tablet, By Mouth, 2 times a day, PRN Constipation, # 360 tablet, 3 Refills, Maintenance, 03/05/2316:29:00 EST, Tablet, [facility]., Partial fill upon patient request if the prescription is for a schedule II opioid drug., 2 tablet By... Start Date: 03/05/23 Status: Ordered duloxetine 20 mg oral enteric coated capsule 1 capsule, By Mouth, Daily at bedtime, # 30 capsule, 1 Refills, Maintenance, 05/07/23 17:40:00 EST,[facility], 163, cm, 05/07/23 16:54:00 EST, Height, 78, kg, 04/03/23 15:11:00 EST, Dry Weight Start Date: 05/07/23 Status: Ordered empagliflozin 10 mg oral tablet 1 tablet = 10 mg, By Mouth, Daily in AM, # 90 tablet, 3 Refills, Maintenance, 08/13/23 20:46:00 EDT, Tablet, [facility]., Partial fill upon patient request [...] 1 each, 4 Refills, Maintenance,07/29/23 15:10:00 EDT, [facility], Partial fill upon patient request if the prescription is for a schedule II opioid drug., 1 spray eac... Start Date: 07/29/23 Status: Ordered Lidoderm 5% film 2 patch, Topically, Daily, remove patches after 12 hours; 2 patches to pain areas; can cut patches in half; do not excede 2 patches., # 180 patch, 3 Refills, Maintenance, 08/13/23 19:20:00 EDT, [facility], Partial fill upon patient req... Start Date: 08/13/23 Stop Date: 08/07/24 Status: Ordered lisinopril 20 mg oral tablet 20 mg, 1, tablet, By Mouth, Daily, # 90 tablet, Refills 3, Tot. Refills 3, Maintenance, 08/13/23 20:46:00 EDT, Route to Pharmacy Electronically, [facility]., 163, cm, 08/13/23 18:05:00EDT, Height, 78, kg, 04/03/23 15:11:00 EST, Dry Weight Start Date: 08/13/23 Status: Ordered melatonin 10 mg oral tablet 1 tablet = 10 mg, By Mouth, Daily at bedtime, PRN as needed for insomnia, # 90 tablet, 3 Refills, Maintenance, 05/07/23 17:52:00 EST, Tablet, [facility], Partial fill upon patient [...] 3 Refills, Maintenance, 04/22/23 20:57:00 EST, [facility] Partial fill upon patient request if the prescription is for a schedule II opioid drug., 163, cm, 04/03/23 15... Start Date: 04/22/23 Status: Ordered Mounjaro 2.5 mg/0.5 mL subcutaneous solution = 2.5 mg, Subcutaneous Injection, Every week, rotate injection sites; use Tirzepatide 0.25mg weeklyx 4 weeks then increase dose, # 4 each, 0 Refills, Maintenance, 08/13/23 19:13:00 EDT, Solution, [facility] Partial fill upon patient... Start Date: 08/13/23 Status: Ordered Mounjaro 5 mg/0.5 mL subcutaneous solution = 5 mg, Subcutaneous Injection, Every week, rotate injection sites; use Tirzepatide 0.25mg weekly x4 weeks then increase dose, # 4 each, 0 Refills, Maintenance, 08/13/23 19:14:00 EDT, Solution, [facility] Partial fill upon patient re... Start Date: 08/13/23 Status: Ordered Mounjaro 5 mg/0.5 mL subcutaneous solution = 5 mg, Subcutaneous Injection, Every week, d/c dulaglutide, # 4 each, 4 Refills, Maintenance, 09/21/23 13:38:00 EDT, Solution, [facility] Partial fill upon patient request if the prescription is for a schedule II opioid drug., 163, c... Start Date: 09/21/23 Status: Ordered omeprazole 40 mg oral enteric coated capsule 1 capsule, By Mouth, Daily, PRN GERD, # 90 capsule, 3 Refills, Maintenance, 04/22/23 21:00:00 EST, [facility], 163, cm, 04/03/23 15:11:00 EST, Height, 78, kg, 04/03/23 15:11:00 EST, Dry Weight Start Date: 04/22/23 Status: Ordered oxyCODONE 15 mg oral tablet 1 tablet = 15 mg, By Mouth, Every 8 hours, PRN Pain , Severe, Mass[employer] checked. Opioid agreement at [facility], # 84 tablet, 0 Refills, Maintenance, 10/09/23 15:23:00 EDT, [facility], Partial fill upon patient request if the prescription is... Start Date: 10/09/23 Stop Date: 11/06/23 Status: Ordered prazosin 2 mg oral capsule via psychiatry A [facility], 0 Refills, Maintenance, 01/19/23 21:19:00 EDT, Partial fill upon patient request if the prescription is for a schedule II opioid drug. Start Date: 01/19/23 Status: Ordered tiZANidine 4 mg oral tablet 1, tablet, By Mouth, 3 times a day, PRN, # 90 tablet, Refills 3, Maintenance, NEEDED FOR SEVERE PAIN, 10/09/23 13:08:00 EDT, Route to Pharmacy Electronically, [facility], 163, cm, 09/14/23 14:23:00 EDT, Height, 78, kg, 04/03/23 15:11:00 E... Start Date: 10/09/23 Status: Ordered topiramate 100 mg oral tablet 1 tablet = 100 mg, By Mouth, Daily, increase dose, # 30 tablet, 4 Refills, Maintenance, 08/13/23 19:21:00 EDT, Tablet, [facility], Partial fill upon patient request if the prescription is for a schedule II opioid drug., 163, cm, ... Start Date: 08/13/23 Status: Ordered triamcinolone 55 mcg/inh nasal spray 1 sprays = 55 mcg, Nares, Both, Daily, # 3 each, 3 Refills, Maintenance, 03/05/23 16:29:00 EST, [facility], Partial fill upon patient request if the prescription is for a schedule II opioid drug., 1 sprays Nares, Both Daily, 163, cm, 1... Start Date: 03/05/23 Status: Ordered Trulicity Pen 1.5 mg/0.5 mL subcutaneous solution = 1.5 mg, Subcutaneous Infusion, Every week, # 4 each, 11 Refills, Maintenance, 08/14/23 12:21:00 EDT, [facility] Partial fill upon patient request if the prescription is for a schedule II opioid drug., 163, cm, 08/13/23 18:05:00 EDT,... Start Date: 08/14/23 Status: Ordered Ventolin HFA 108 mcg/inh inhalation aerosol with adapter 2 puffs, Inhalation, 4 times a day, PRN for wheezing, # 1 each, 11 Refills, Maintenance, 05/07/23 17:55:00 EST, Aerosol, [facility]., Partial fill upon patient request [...] Confirmed Active Panic attacks Confirmed Active BHN/BHCP Firefighting Equipment Specialist Charlene Fabian [phone] Confirmed Active Perianal abscess Confirmed Active Syncope and collapse Confirmed Active Tobacco dependence Confirmed Active DM2 (diabetes mellitus, type 2) Confirmed 04/03/17 Active Incontinence of urine 4 Confirmed Active 1seen on MRI 10/2016, rec repeat imaging in October 2017 pain managemnt team/ Dr Diop indicated they thought pain was fibromyalgia 3seen on CT Abd 09/18/16 at [facility], pending MRI 4urge and stress Social History Social History Type Response Tobacco Other: Quit 07/2023. Sex Patient Care team information Care Team Personnel Name: Price PETERSON, Graciela Position: [facility] SN RN Member Role: Primary Care Nurse Name: Stevie Angel RN Position: [facility] RN Member Role: Primary Care Nurse Name: Keily Ortega RN Position: [facility] RN Member Role: Primary Care Nurse Name: Graciela Munroe RN Position: [facility] RN Member Role: Primary Care Nurse Name: Nichole Pichardo RN Position: [facility] RN Member Role: Primary Care Nurse Name: Melvin Whitfield RN Position: [facility] AMB Nurse Member Role: Primary Care Nurse Name: Phuong Berkowitz RN Position: [facility] RN Member Role: Primary Care Nurse Name: Pura Walker MD Position: [facility] Physician - Primary Care Member Role: PCP Address: Address: [address] [place] [id number] Name: Joselyn Rain RN Position: [facility] Hospital Bobbin Cleaner Member Role: Primary Care Nurse Care Team Related Persons Name: IRA ROMERO Address: home [address] [place] [address] Name: JHON LARSON Address: [address] [place] [address] Name: JHON LARSON Address: home [address] [place] [address] Name: GALO CATALAN Name: NANCY CATALAN Address: home [address] [place] [address]
--- OUTSIDE RECORDS SUMMARY | 2023-12-31 10:50 | XMS_ITS | Continuity of Care Document ---
Author Organization [facility] Address [address] [place] [address]- Care Team Providers Care Carburetor Repairer Name Role Phone Aaron GERARDO, Pura Mahajan Primary Care Physician [phone] [facility]): [facility]23 - 12/12/23 [facility] [address] [place], [place] [phone] Attending Physician: Alon Cleveland MD Admitting Physician: [...] influenza virus vaccine, inactivated 02/16/17 Give n [id number] 12y+ bivalent booster vax 01/30/22 Given SARS-CoV-2 mRNA ([id number]) vax 05/14/21 Given SARS-CoV-2 (COVID-19) mRNA BNT-162b2 vac 2 10/19/20 Given SARS-CoV-2 (COVID-19) mRNA BNT-162b2 vac 09/28/20 Given pneumococcal 23-valent vaccine 12/7/19 Given tetanus/diphtheria/pertussis, acel(Tdap) 07/29/13 Given 1Early/Late Reason: Early/Late Reason: Patient Not Available/Off Unit 2? Unknown: Resend to [facility]. Resend to [facility]. Medications acetaminophen 325 mg oral tablet 650 mg, 2, tablet, By Mouth, 3 times a day, # 540 tablet, Refills 3, Tot. Refills 3, Maintenance, 03/05/23 16:21:00 EST, Route to Pharmacy Electronically, [facility], Partial fill upon patient request if the prescription is for a sched... Start Date: 03/05/23 Status: Ordered Advair Diskus 500 mcg-50 mcg inhalation powder 1, inhalation, Inhalation, 2 times a day, rinse mouth and throat after use, # 60 each, Refills 11, Tot. Refills 11, Maintenance, 08/13/23 20:46:00 EDT, Inhaler, Route to Pharmacy Electronically, [id number], [facility]... Start Date: 08/13/23 Status: Ordered All Day Allergy 10 mg oral tablet 1 tablet, By Mouth, Daily, # 90 tablet, 3 Refills, Maintenance, 08/13/23 20:47:00 EDT, [facility], 163, cm, 08/13/23 18:05:00 EDT, Height, 78, kg, 04/03/23 15:11:00 EST, Dry Weight Start Date: 08/13/23 Status: Ordered amLODIPine 10 mg oral tablet 10 mg, 1, tablet, By Mouth, Daily, # 30 tablet, Refills 4, Tot. Refills 4, Maintenance, 08/13/23 19:14:00 EDT, Route to Pharmacy Electronically, [facility], Partial fill upon patient request if the prescription is for a schedule II opi... Start Date: 08/13/23 Status: Ordered atorvastatin 40 mg oral tablet 1 tablet = 40 mg, By Mouth, Daily, # 90 tablet, 3 Refills, Maintenance, 08/13/23 20:46:00 EDT, Tablet, [facility] Partial fill [...] Maintenance, 07/08/23 15:30:00 EDT, Tablet, [facility] Partial fill upon patient request if [...] Refills, Maintenance, 05/07/23 17:52:00 EST, [facility]., 15, APPLY TOPICALLY TO AFFECTED AREA TWO TIMES A DAY FOR TWO WEEKS, 163, cm, ... Start Date: 05/07/23 Status: Ordered diclofenac 1% topical gel 1 application, Topically, 4 times a day, # 100 Gm, 4 Refills, Maintenance, 03/05/23 16:21:00 EST, Gel, [facility]., Partial fill upon patient request if the prescription is for a schedule II opioid drug., 163, cm, 03/05/23 15:09:00 EST,... Start Date: 03/05/23 Status: Ordered docusate-senna 50 mg-187 mg oral tablet 2 tablet, By Mouth, 2 times a day, PRN Constipation, # 360 tablet, 3 Refills, Maintenance, 03/05/2316:29:00 EST, Tablet, [facility], Partial fill upon patient request if the prescription is for a schedule II opioid drug., 2 tablet By... Start Date: 03/05/23 Status: Ordered duloxetine 20 mg oral enteric coated capsule 1 capsule, By Mouth, Daily at bedtime, # 30 capsule, 1 Refills, Maintenance, 05/07/23 17:40:00 EST,[facility], 163, cm, 05/07/23 16:54:00 EST, Height, 78, kg, 04/03/23 15:11:00 EST, Dry Weight Start Date: 05/07/23 Status: Ordered empagliflozin 25 mg oral tablet 1 tablet = 25 mg, By Mouth, Daily in AM, # 90 tablet, 1 Refills, Maintenance, 11/06/23 14:33:00 EDT, Tablet, [facility], Partial fill [...] 1 each, 4 Refills, Maintenance,07/29/23 15:10:00 EDT, [facility], Partial fill [...] patch, 3 Refills, Maintenance, 08/13/23 19:20:00 EDT, [facility], Partial fill upon patient req... Start Date: 08/13/23 Stop Date: 08/07/24 Status: Ordered lisinopril 20 mg oral tablet 20 mg, 1, tablet, By Mouth, Daily, # 90 tablet, Refills 3, Tot. Refills 3, Maintenance, 08/13/23 20:46:00 EDT, Route to Pharmacy Electronically, [facility]., 163, cm, 08/13/23 18:05:00EDT, Height, 78, kg, 04/03/23 15:11:00 EST, Dry Weight Start Date: 08/13/23 Status: Ordered melatonin 10 mg oral tablet 1 tablet = 10 mg, By Mouth, Daily at bedtime, PRN as needed for insomnia, # 90 tablet, 3 Refills, Maintenance, 05/07/23 17:52:00 EST, Tablet, [facility], Partial fill [...] 3 Refills, Maintenance, 04/22/23 20:57:00 EST, Tablet, [facility] Partial fill upon patient request if the prescription is for a schedule II opioid drug., 163, cm, 04/03/23 15... Start Date: 04/22/23 Status: Ordered Mounjaro 5 mg/0.5 mL subcutaneous solution = 5 mg, Subcutaneous Injection, Every week, rotate injection sites; use Tirzepatide 0.25mg weekly x4 weeks then increase dose, # 4 each, 4 Refills, Maintenance, 10/22/23 20:13:00 EDT, Solution, [facility] Partial fill upon patient re... Start Date: 10/22/23 Status: Ordered Mounjaro 5 mg/0.5 mL subcutaneous solution = 5 mg, Subcutaneous Injection, Every week, d/c dulaglutide, # 4 each, 4 Refills, Maintenance, 09/21/23 13:38:00 EDT, Solution, [facility] Partial fill upon patient request if the prescription is for a schedule II opioid drug., 163, c... Start Date: 09/21/23 Status: Ordered omeprazole 40 mg oral enteric coated capsule 1 capsule, By Mouth, Daily, PRN GERD, # 90 capsule, 3 Refills, Maintenance, 04/22/23 21:00:00 EST, [facility] 163, cm, 04/03/23 15:11:00 EST, Height, 78, kg, 04/03/23 15:11:00 EST, Dry Weight Start Date: 04/22/23 Status: Ordered oxyCODONE 15 mg oral tablet 1 tablet = 15 mg, By Mouth, Every 8 hours, PRN Pain , Severe, MassPat checked. Opioid agreement at [facility], # 84 tablet, 0 Refills, Maintenance, 12/08/23 13:52:00 EDT, [facility]., Partial fill upon patient request if [...] 10/09/23 13:08:00 EDT, [facility], 163, cm, 09/14/23 14:23:00 EDT, Height, 78, kg, 04/03/23 15:11:00 E... Start Date: 10/09/23 Status: Ordered topiramate 100 mg oral tablet 1 tablet = 100 mg, By Mouth, Daily, increase dose, # 30 tablet, 4 Refills, Maintenance, 08/13/23 19:21:00 EDT, Tablet, [facility]., Partial fill upon patient request if the prescription is for a schedule II opioid drug., 163, cm, ... Start Date: 08/13/23 Status: Ordered triamcinolone 55 mcg/inh nasal spray 1 sprays = 55 mcg, Nares, Both, Daily, # 3 each, 3 Refills, Maintenance, 03/05/23 16:29:00 EST, [facility] Partial fill upon patient request if the prescription is for a schedule II opioid drug., 1 sprays Nares, Both Daily, 163, cm, 1... Start Date: 03/05/23 Status: Ordered Ventolin HFA 108 mcg/inh inhalation aerosol with adapter 2 puffs, Inhalation, 4 times a day, PRN for wheezing, # 1 each, 11 Refills, Maintenance, 05/07/23 17:55:00 EST, Aerosol, [facility]., Partial fill upon patient request if [...] Confirmed Active Panic attacks Confirmed Active N/CP Foreign Law Consultant Charlene Fabian [phone] Confirmed Active Perianal abscess Confirmed Active Syncope and collapse Confirmed Active Tobacco dependence Confirmed Active DM2 (diabetes mellitus, type 2) Confirmed 04/03/17 Active Incontinence of urine 4 Confirmed Active 1seen on MRI 10/2016, rec repeat imaging in October 2017 pain managemnt team/ Dr Diop indicated they thought pain was fibromyalgia 3seen on CT Abd 09/18/16 at [facility], pending MRI 4urge and stress Social History Social History Type Response Tobacco Other: Quit 07/2023. Sex Patient Care team information Care Team Personnel Name: Graciela Thrasher RN Position: [facility] SN RN Member Role: Primary Care Nurse Name: Stevie Angel RN Position: [facility] RN Member Role: Primary Care Nurse Name: Keily Ortega RN Position: [facility] RN Member Role: Primary Care Nurse Name: Graciela Munroe RN Position: [facility] RN Member Role: Primary Care Nurse Name: Nichole Pichardo RN Position: [facility] RN Member Role: Primary Care Nurse Name: Melvin Whitfield RN Position: [facility] RASHID Nurse Member Role: Primary Care Nurse Name: Phuong Berkowitz RN Position: [facility] RN Member Role: Primary Care Nurse Name: Pura Walker MD Position: [facility] Physician - Primary Care Member Role: PCP Address: Address: [address] [facility] [place] [address]- [place] Name: Joselyn Rain RN Position: [facility] Hospital Pressing Machine Tender Member Role: Primary Care Nurse Care Team Related Persons Name: IRA ROMERO Address: home [address] [place] [address] Name: JHON LARSON Address: [address] [place] [address] Name: JHON LARSON Address: [address] [place] [address] Name: GALO CATALAN Name: NANCY CATALAN Address: home [address] [place] [address]
--- OUTSIDE RECORDS SUMMARY | 2023-12-31 10:50 | XMS_ITS | Continuity of Care Document ---
Author Organization [facility] Address [address] [place] [address]- Care Team Providers Care Marketing Professional Name Role Phone Aaron GERARDO, Pura Mahajan Primary Care Physician [phone] [facility]counter [facility]): 09/07/23 - 10/07/23 [facility] [address] [place] [address]- Allergies, Adverse Reactions, Alerts Substance Reaction Severity [...] influenza virus vaccine, inactivated 02/16/17 Give n [id number] 12y+ bivalent booster vax 01/30/22 Given SARS-CoV-2 mRNA (aamarkr-dbng-guvsu) vax 05/14/21 Given SARS-CoV-2 (COVID-19) mRNA BNT-162b2 [...] 16:21:00 EST, Route to Pharmacy Electronically, [facility], Partial fill upon patient request if the prescription is for a sched... Start Date: 03/05/23 Status: Ordered Advair Diskus 500 mcg-50 mcg inhalation powder 1, inhalation, Inhalation, 2 times a day, rinse mouth and throat after use, # 60 each, Refills 11, Tot. Refills 11, Maintenance, 08/13/23 20:46:00 EDT, Inhaler, Route to Pharmacy Electronically, [id number], [facility]... Start Date: 08/13/23 Status: Ordered [...] 19:14:00 EDT, Route to Pharmacy Electronically, [facility], Partial fill upon patient request if the prescription is for a schedule II opi... Start Date: 08/13/23 Status: Ordered atorvastatin 40 mg oral tablet 1 tablet = 40 mg, By Mouth, Daily, # 90 tablet, 3 Refills, Maintenance, 08/13/23 20:46:00 EDT, Tablet, [facility], Partial fill upon patient request [...] 5 Refills, Maintenance, 07/08/23 15:30:00 EDT, Tablet, [facility] Partial fill upon patient request if [...] Gm, 2 Refills, Maintenance, 05/07/23 17:52:00 EST, [facility] 15, APPLY TOPICALLY TO AFFECTED AREA TWO TIMES A DAY FOR TWO WEEKS, 163, eugenia, ... Start Date: 05/07/23 Status: Ordered diclofenac 1% topical gel 1 application, Topically, 4 times a day, # 100 Gm, 4 Refills, Maintenance, 03/05/23 16:21:00 EST, Gel, [facility] Partial fill upon patient request if [...] 30 capsule, 1 Refills, Maintenance, 05/07/23 17:40:00 EST,[facility], 163, cm, 05/07/23 16:54:00 EST, Height, [...] each, 4 Refills, Maintenance,07/29/23 15:10:00 EDT, [facility], Partial fill upon patient request if the prescription is for a schedule II opioid drug., 1 spray eac... Start Date: 07/29/23 Status: Ordered Lidoderm 5% film 2 patch, Topically, Daily, remove patches after 12 hours; 2 patches to pain areas; can cut patches in half; do not excede 2 patches., # 180 patch, 3 Refills, Maintenance, 08/13/23 19:20:00 EDT, [facility], Partial fill upon patient req... [...] Refills, Maintenance, 05/07/23 17:52:00 EST, Tablet, [facility], Partial fill upon patient request [...] 3 Refills, Maintenance, 04/22/23 20:57:00 EST, Tablet, [facility] Partial fill upon patient request if the prescription is for a schedule II opioid drug., 163, cm, 04/03/23 15... Start Date: 04/22/23 Status: Ordered Mounjaro 2.5 mg/0.5 mL subcutaneous solution = 2.5 mg, Subcutaneous Injection, Every week, rotate injection sites; use Tirzepatide 0.25mg weeklyx 4 weeks then increase dose, # 4 each, 0 Refills, Maintenance, 08/13/23 19:13:00 EDT, Solution, [facility] Partial fill upon patient... Start Date: 08/13/23 Status: Ordered Mounjaro 5 mg/0.5 mL subcutaneous solution = 5 mg, Subcutaneous Injection, Every week, rotate injection sites; use Tirzepatide 0.25mg weekly x4 weeks then increase dose, # 4 each, 0 Refills, Maintenance, 08/13/23 19:14:00 EDT, Solution, [facility] Partial fill upon patient re... Start Date: 08/13/23 Status: Ordered Mounjaro 5 mg/0.5 mL subcutaneous solution = 5 mg, Subcutaneous Injection, Every week, d/c dulaglutide, # 4 each, 4 Refills, Maintenance, 09/21/23 13:38:00 EDT, Solution, [facility] Partial fill upon patient request if the prescription is for a schedule II opioid drug., 163, c... Start Date: 09/21/23 Status: Ordered omeprazole 40 mg oral enteric coated capsule 1 capsule, By Mouth, Daily, PRN GERD, # 90 capsule, 3 Refills, Maintenance, 04/22/23 21:00:00 EST, [facility] 163, cm, 04/03/23 15:11:00 EST, Height, 78, kg, 04/03/23 15:11:00 EST, Dry Weight Start Date: 04/22/23 Status: Ordered oxyCODONE 15 mg oral tablet 1 tablet = 15 mg, By Mouth, Every 8 hours, PRN Pain , Severe, [employer] checked. Opioid agreement at [facility], # 84 tablet, 0 Refills, Maintenance, 09/10/23 12:50:00 EDT, [facility], Partial fill upon patient request if the prescription is... Start Date: 09/10/23 Stop Date: 10/08/23 Status: Ordered prazosin 2 mg oral capsule via psychiatry A [facility], 0 Refills, Maintenance, 01/19/23 21:19:00 EDT, Partial fill upon patient request if the prescription is for a schedule II opioid drug. Start Date: 01/19/23 Status: Ordered tiZANidine 4 mg oral tablet 1, tablet, By Mouth, 3 times a day, PRN, # 90 tablet, Refills 3, Tot. Refills 3, Maintenance, NEEDED FOR SEVERE PAIN, 05/11/23 8:53:00 EST, Route to Pharmacy Electronically, [facility] 163, cm, 05/07/23 16:54:00 EST, Height, 78, kg... Start Date: 05/11/23 Status: Ordered topiramate 100 mg oral tablet 1 tablet = 100 mg, By Mouth, Daily, increase dose, # 30 tablet, 4 Refills, Maintenance, 08/13/23 19:21:00 EDT, Tablet, [facility]., Partial fill upon patient request if the prescription is for a schedule II opioid drug., 163, cm, ... Start Date: 08/13/23 Status: Ordered triamcinolone 55 mcg/inh nasal spray 1 sprays = 55 mcg, Nares, Both, Daily, # 3 each, 3 Refills, Maintenance, 03/05/23 16:29:00 EST, [facility]., Partial fill upon patient request if the prescription is for a schedule II opioid drug., 1 sprays Nares, Both Daily, 163, cm, 1... 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 Sex Patient Care team information Care Team Personnel Name: Graciela Thrasher RN [facility] Care Member Role: PCP Address: Address: [address] [place] [id number] Name: Joselyn Rain RN Position: [facility] Shoe Shiner Member Role: Primary Care Nurse Care Team Related Persons Name: IRA ROMERO Address: home [address] [place] [address] Name: JHON LARSON Address: [address] [place] [address] Name: JHON LARSON Address: [address] [place] [address] Name: GALO CATALAN Name: NANCY CATALAN Address: home [address] [place] [address]
--- OUTSIDE RECORDS SUMMARY | 2023-12-31 10:50 | XMS_ITS | Continuity of Care Document ---
Author Organization [facility] Address [address] [address]- Care Team Providers Care Corporate Legal Intern Name Role Phone Aaron GERARDO, Pura Mahajan Primary Care Physician [facility]s): 05[facility]23 - 06/27/23 [facility] [address] [address] Allergies, Adverse Reactions, Alerts Substance Reaction Severity [...] influenza virus vaccine, inactivated 02/16/17 Give n [id number] 12y+ bivalent booster vax 01/30/22 Given SARS-CoV-2 mRNA (cplacid-tfpe-jzuae) vax 05/14/21 Given SARS-CoV-2 (COVID-19) mRNA BNT-162b2 [...] 03/05/23 16:21:00 EST, Route to Pharmacy Electronically, [facility], Partial fill upon patient request if the prescription is for a sched... Start Date: 03/05/23 Status: Ordered Advair Diskus 500 mcg-50 mcg inhalation powder 1, inhalation, Inhalation, 2 times a day, rinse mouth and throat after use, # 60 each, Refills 11, Tot. Refills 11, Maintenance, 09/25/22 17:00:00 EDT, Inhaler, Route to Pharmacy Electronically, [id number], [facility]... Start Date: 09/25/22 Status: Ordered All Day Allergy 10 mg oral tablet 1 tablet, By Mouth, Daily, # 90 tablet, 3 Refills, Maintenance, 11/20/22 16:48:00 EDT, [facility] 163, cm, 11/20/22 16:00:00 EDT, Height, 83, kg, 02/11/22 19:19:00 EST, Dry Weight Start Date: 11/20/22 Status: Ordered amLODIPine 5 mg oral tablet 5 mg, 1, tablet, By Mouth, Daily, # 90 tablet, Refills 3, Tot. Refills 3, Maintenance, 03/05/23 16:29:00 EST, Route to Pharmacy Electronically, [facility]., Partial fill upon patient request if the prescription is for a schedule II opio... Start Date: 03/05/23 Status: Ordered atorvastatin 40 mg oral tablet 1 tablet = 40 mg, By Mouth, Daily, # 90 tablet, 3 Refills, Maintenance, 09/25/22 16:58:00 EDT, Tablet, [facility]., Partial fill upon patient request if [...] 2 Refills, Maintenance, 05/07/23 17:52:00 EST, [facility] 15, APPLY TOPICALLY TO AFFECTED AREA TWO TIMES A DAY FOR TWO WEEKS, 163, cm, ... Start Date: 05/07/23 Status: Ordered diclofenac 1% topical gel 1 application, Topically, 4 times a day, # 100 Gm, 4 Refills, Maintenance, 03/05/23 16:21:00 EST, Gel, [facility] Partial fill upon patient request if the prescription is for a schedule II opioid drug., 163, cm, 03/05/23 15:09:00 EST,... Start Date: 03/05/23 Status: Ordered docusate-senna 50 mg-187 mg oral tablet 2 tablet, By Mouth, 2 times a day, PRN Constipation, # 360 tablet, 3 Refills, Maintenance, 03/05/2316:29:00 EST, Tablet, [facility] Partial fill upon patient request if the prescription is for a schedule II opioid drug., 2 tablet By... Start Date: 03/05/23 Status: Ordered duloxetine 20 mg oral enteric coated capsule 1 capsule, By Mouth, Daily at bedtime, # 30 capsule, 1 Refills, Maintenance, 05/07/23 17:40:00 EST[facility], cm, 05/07/23 16:54:00 EST, [...] 3 Refills, Maintenance, 09/25/22 17:01:00 EDT, Tablet, [facility]., Partial fill upon patient request if the prescription is for aschedule II opioid drug., 163, cm, 09/25/22 16:20:0... Start Date: 09/25/22 Status: Ordered ibuprofen 800 mg oral tablet 1, tablet, By Mouth, 3 times a day, PRN, # 90 tablet, Refills 0, Maintenance, NEEDED FOR PAIN, 05/07/23 17:40:00 EST, [facility] 163, cm, 05/07/23 16:54:00 EST, Height, 78, kg, 04/03/23 15:11:00 EST, Dry... Start Date: 05/07/23 Status: Ordered lidocaine 5% topical film 1 patch, Topically, Daily, PRN Pain , Mild, remove after 12 hours, # 13 each, 5 Refills, Maintenance, 09/25/22 16:59:00 EDT, Film, [facility]., Partial fill upon patient request if theprescription is for a schedule II opioid drug., 1 p... Start Date: 09/25/22 Status: Ordered Lidoderm 5% film 2 patch, Topically, Daily, remove patches after 12 hours; 2 patches to pain areas; can cut patches in half; do not excede 2 patches., # 60 patch, 4 Refills, Maintenance, 03/05/23 16:22:00 EST, [facility]., Partial fill upon patient requ... Start Date: 03/05/23 Stop Date: 08/02/23 Status: Ordered lisinopril 20 mg oral tablet 20 mg, 1, tablet, By Mouth, Daily, # 90 tablet, Refills 3, Tot. Refills 3, Maintenance, 11/20/22 16:48:00 EDT, Route to Pharmacy Electronically, [facility]., 163, cm, 11/20/22 16:00:00EDT, Height, 83, kg, 02/11/22 19:19:00 EST, Dry Weight Start Date: 11/20/22 Status: Ordered melatonin 10 mg oral tablet 1 tablet = 10 mg, By Mouth, Daily at bedtime, PRN as needed for insomnia, # 90 tablet, 3 Refills, Maintenance, 05/07/23 17:52:00 EST, Tablet, [facility], Partial fill upon patient request if [...] 3 Refills, Maintenance, 04/22/23 20:57:00 EST, Tablet, [facility]., Partial fill upon patient request if the prescription is for a schedule II opioid drug., 163, cm, 04/03/23 15... Start Date: 04/22/23 Status: Ordered omeprazole 40 mg oral enteric coated capsule 1 capsule, By Mouth, Daily, PRN GERD, # 90 capsule, 3 Refills, Maintenance, 04/22/23 21:00:00 EST, [facility], 163, cm, 04/03/23 15:11:00 EST, Height, 78, kg, 04/03/23 15:11:00 EST, Dry Weight Start Date: 04/22/23 Status: Ordered oxyCODONE 15 mg oral tablet 1 tablet = 15 mg, By Mouth, Every 8 hours, PRN Pain , Severe, [employer] checked. Opioid agreement at [facility], # 84 tablet, 0 Refills, Maintenance, 06/18/23 12:10:00 EDT, [facility], Partial fill upon patient request if [...] 05/11/23 8:53:00 EST, Route to Pharmacy Electronically, [facility], 163, cm, 05/07/23 16:54:00 EST, Height, 78, kg... Start Date: 05/11/23 Status: Ordered topiramate 25 mg oral capsule 2 capsule = 50 mg, By Mouth, Daily, take 1 cap daily x 2 weeks then 2 caps daily, # 60 capsule, 4 Refills, Maintenance, 03/05/23 16:23:00 EST, Capsule, [facility]., Partial fill upon patient request if the prescription is for a schedule... Start Date: 03/05/23 Status: Ordered traZODone 50 mg oral tablet 1/2 TO 1 TABLET, By Mouth, Daily at bedtime, # 90 tablet, Refills 3, Tot. Refills 3, Maintenance, 04/22/23 20:58:00 EST, Route to Pharmacy Electronically, [facility] 163, cm, 04/03/23 15:11:00 EST, Height, 78, kg, 04/03/23 15:11:00 ES... Start Date: 04/22/23 Stop Date: 04/16/24 Status: Ordered triamcinolone 55 mcg/inh nasal spray 1 sprays = 55 mcg, Nares, Both, Daily, # 3 each, 3 Refills, Maintenance, 03/05/23 16:29:00 EST, [facility] Partial fill upon patient request if the prescription is for a schedule II opioid drug., 1 sprays Nares, Both Daily, 163, cm, 1... Start Date: 03/05/23 Status: Ordered Trulicity Pen 1.5 mg/0.5 mL subcutaneous solution = 1.5 mg, Subcutaneous Infusion, Every week, # 4 each, 11 Refills, Maintenance, 11/20/22 16:49:00 EDT, [facility]., Partial fill upon patient request if the prescription is for a schedule II opioid drug., 163, cm, 11/20/22 16:00:00 EDT,... 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 Sex Patient Care team information Care Team Personnel Name: Graciela Thrasher RN Position: [facility] RN Member Role: Primary Care Nurse Name: Stevie Angel RN Position: [facility] RN Member Role: Primary Care Nurse Name: Keily Ortega RN Position: [facility] RN Member Role: Primary Care Nurse Name: Graciela Munroe RN Position: [facility] RN Member Role: Primary Care Nurse Name: Nichole Pichardo RN Position: [facility] RN Member Role: Primary Care Nurse Name: Melvin Whitfield RN Position: [facility] AMB Nurse Member Role: Primary Care Nurse Name: Phuong Berkowitz RN Position: [facility] RN Member Role: Primary Care Nurse Name: Pura Walker MD Position: [facility] Physician - Primary Care Member Role: PCP Address: Address: [address] [place] [id number] Name: Joselyn Rain RN Position: [facility] Hospital Pet Caretaker Member Role: Primary Care Nurse Care Team Related Persons Name: IRA ROMERO Address: home [address] [place] [address] Name: JHON LARSON Address: [address] [place] [address] Name: JHON LARSON Address: [address] [place] [address] Name: GALO CATALAN Name: NANCY CATALAN Address: home [address] [place] [address]
--- OUTSIDE RECORDS SUMMARY | 2023-12-31 10:51 | XMS_ITS | Continuity of Care Document ---
Author Organization [facility] Address [address] [place] [address]- Care Team Providers Care Superintendent Refuse Disposal Name Role Phone Aaron GERARDO, Pura Mahajan Primary Care Physician [phone] Encounter [facility] Date(s): 07/30/23 - 08/29/23 [facility] [address] [place], [place] [phone] Allergies, Adverse Reactions, Alerts Substance Reaction Severity [...] influenza virus vaccine, inactivated 02/16/17 Give n [id number] 12y+ bivalent booster vax 01/30/22 Given SARS-CoV-2 mRNA ([id number]) vax 05/14/21 Given SARS-CoV-2 (COVID-19) mRNA BNT-162b2 [...] 16:21:00 EST, Route to Pharmacy Electronically, [facility], Partial fill upon patient request if the prescription is for a sched... Start Date: 03/05/23 Status: Ordered Advair Diskus 500 mcg-50 mcg inhalation powder 1, inhalation, Inhalation, 2 times a day, rinse mouth and throat after use, # 60 each, Refills 11, Tot. Refills 11, Maintenance, 08/13/23 20:46:00 EDT, Inhaler, Route to Pharmacy Electronically, [id number], [facility]... Start Date: 08/13/23 Status: Ordered All Day Allergy 10 mg oral tablet 1 tablet, By Mouth, Daily, # 90 tablet, 3 Refills, Maintenance, 08/13/23 20:47:00 EDT, [facility] 163, cm, 08/13/23 18:05:00 EDT, Height, 78, kg, 04/03/23 15:11:00 EST, Dry Weight Start Date: 08/13/23 Status: Ordered amLODIPine 10 mg oral tablet 10 mg, 1, tablet, By Mouth, Daily, # 30 tablet, Refills 4, Tot. Refills 4, Maintenance, 08/13/23 19:14:00 EDT, Route to Pharmacy Electronically, [facility]., Partial fill upon patient request if the prescription is for a schedule II opi... Start Date: 08/13/23 Status: Ordered atorvastatin 40 mg oral tablet 1 tablet = 40 mg, By Mouth, Daily, # 90 tablet, 3 Refills, Maintenance, 08/13/23 20:46:00 EDT, Tablet, [facility]., Partial fill upon patient request if the [...] 5 Refills, Maintenance, 07/08/23 15:30:00 EDT, Tablet, [facility] Partial fill upon patient request [...] Gm, 2 Refills, Maintenance, 05/07/23 17:52:00 EST, [facility] 15, APPLY TOPICALLY TO AFFECTED AREA TWO TIMES A DAY FOR TWO WEEKS, [place], ... Start Date: 05/07/23 Status: Ordered diclofenac 1% topical gel 1 application, Topically, 4 times a day, # 100 Gm, 4 Refills, Maintenance, 03/05/23 16:21:00 EST, Gel, [facility] Partial fill upon patient request if the prescription is for a schedule II opioid drug., [place], 03/05/23 15:09:00 EST,... Start Date: 03/05/23 Status: Ordered docusate-senna 50 mg-187 mg oral tablet 2 tablet, By Mouth, 2 times a day, PRN Constipation, # 360 tablet, 3 Refills, Maintenance, 03/05/2316:29:00 EST, Tablet, [facility]., Partial fill upon patient request if the prescription is for a schedule II opioid drug., 2 tablet By... Start Date: 03/05/23 Status: Ordered duloxetine 20 mg oral enteric coated capsule 1 capsule, By Mouth, Daily at bedtime, # 30 capsule, 1 Refills, Maintenance, 05/07/23 17:40:00 EST,[facility], 163, cm, 05/07/23 16:54:00 EST, Height, 78, kg, 04/03/23 15:11:00 EST, Dry Weight Start Date: 05/07/23 Status: Ordered empagliflozin 10 mg oral tablet 1 tablet = 10 mg, By Mouth, Daily in AM, # 90 tablet, 3 Refills, Maintenance, 08/13/23 20:46:00 EDT, Tablet, [facility], Partial fill upon patient request [...] each, 4 Refills, Maintenance,07/29/23 15:10:00 EDT, [facility], Partial fill upon patient request if the prescription is for a schedule II opioid drug., 1 spray eac... Start Date: 07/29/23 Status: Ordered Lidoderm 5% film 2 patch, Topically, Daily, remove patches after 12 hours; 2 patches to pain areas; can cut patches in half; do not excede 2 patches., # 180 patch, 3 Refills, Maintenance, 08/13/23 19:20:00 EDT, [facility], Partial fill upon patient req... Start Date: 08/13/23 Stop Date: 08/07/24 Status: Ordered lisinopril 20 mg oral tablet 20 mg, 1, tablet, By Mouth, Daily, # 90 tablet, Refills 3, Tot. Refills 3, Maintenance, 08/13/23 20:46:00 EDT, Route to Pharmacy Electronically, [facility]., 163, cm, 08/13/23 18:05:00EDT, Height, 78, kg, 04/03/23 15:11:00 EST, Dry Weight Start Date: 08/13/23 Status: Ordered melatonin 10 mg oral tablet 1 tablet = 10 mg, By Mouth, Daily at bedtime, PRN as needed for insomnia, # 90 tablet, 3 Refills, Maintenance, 05/07/23 17:52:00 EST, Tablet, [facility], Partial fill upon patient request [...] 3 Refills, Maintenance, 04/22/23 20:57:00 EST, Tablet, [facility] Partial fill upon patient request if the prescription is for a schedule II opioid drug., 163, cm, 04/03/23 15... Start Date: 04/22/23 Status: Ordered Mounjaro 2.5 mg/0.5 mL subcutaneous solution = 2.5 mg, Subcutaneous Injection, Every week, rotate injection sites; use Tirzepatide 0.25mg weeklyx 4 weeks then increase dose, # 4 each, 0 Refills, Maintenance, 08/13/23 19:13:00 EDT, Solution, [facility] Partial fill upon patient... Start Date: 08/13/23 Status: Ordered Mounjaro 5 mg/0.5 mL subcutaneous solution = 5 mg, Subcutaneous Injection, Every week, rotate injection sites; use Tirzepatide 0.25mg weekly x4 weeks then increase dose, # 4 each, 0 Refills, Maintenance, 08/13/23 19:14:00 EDT, Solution, [facility] Partial fill upon patient re... Start Date: 08/13/23 Status: Ordered omeprazole 40 mg oral enteric coated capsule 1 capsule, By Mouth, Daily, PRN GERD, # 90 capsule, 3 Refills, Maintenance, 04/22/23 21:00:00 EST, [facility] 163, cm, 04/03/23 15:11:00 EST, Height, 78, kg, 04/03/23 15:11:00 EST, Dry Weight Start Date: 04/22/23 Status: Ordered oxyCODONE 15 mg oral tablet 1 tablet = 15 mg, By Mouth, Every 8 hours, PRN Pain , Severe, [employer] checked. Opioid agreement at [facility], # 84 tablet, 0 Refills, Maintenance, 08/13/23 19:24:00 EDT, [facility]., Partial fill upon patient request if the [...] 05/11/23 8:53:00 EST, Route to Pharmacy Electronically, [facility] 163, cm, 05/07/23 16:54:00 EST, Height, 78, kg... Start Date: 05/11/23 Status: Ordered topiramate 100 mg oral tablet 1 tablet = 100 mg, By Mouth, Daily, increase dose, # 30 tablet, 4 Refills, Maintenance, 08/13/23 19:21:00 EDT, Tablet, [facility]., Partial fill upon patient request if the prescription is for a schedule II opioid drug., 163, cm, ... Start Date: 08/13/23 Status: Ordered triamcinolone 55 mcg/inh nasal spray 1 sprays = 55 mcg, Nares, Both, Daily, # 3 each, 3 Refills, Maintenance, 03/05/23 16:29:00 EST, [facility]., Partial fill upon patient request if the prescription is for a schedule II opioid drug., 1 sprays Nares, Both Daily, 163, cm, 1... Start Date: 03/05/23 Status: Ordered Trulicity Pen 1.5 mg/0.5 mL subcutaneous solution = 1.5 mg, Subcutaneous Infusion, Every week, # 4 each, 11 Refills, Maintenance, 08/14/23 12:21:00 EDT, [facility]., Partial fill upon patient request if the prescription is for a schedule II opioid drug., 163, cm, 08/13/23 18:05:00 EDT,... 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 [phone] Confirmed Active Perianal abscess Confirmed Active Syncope [...] Nurse Name: Melvin Whitfield RN Position: [facility] AMB Nurse Member Role: Primary Care Nurse Name: Phuong Berkowitz RN Position: [facility] RN Member Role: Primary Care Nurse Name: Pura Walker MD Position: [facility] Physician - Primary Care Member Role: PCP Address: Address: [address] [place] [id number] Name: Joselyn Rain RN Position: [facility] Hospital Detective Supervisor Member Role: Primary Care Nurse Care Team Related Persons Name: IRA ROMERO Address: home [address] [place] [address] Name: JHON LARSON Address: home [address] [place] [address] Name: JHON LARSON Address: [address] [place] [address] Name: GALO CATALAN Name: NANCY CATALAN Address: home [address] [place] [address]
--- OUTSIDE RECORDS SUMMARY | 2023-12-31 10:51 | XMS_ITS | Continuity of Care Document ---
Author Organization [facility] Address [address] [place] [address] ve [address] [place] [address]- Care Team Providers Care Automatic Pattern Edger Name Role Phone Pura Walker MD Primary Care Physician [phone] [place] [facility] [place] - 10/14/[address] [place] [address]- Attending Physician: Clarence Reynaga Admitting Physician: Clarence [...] 02/04/21 Give n influenza virus vaccine, inactivated 04/19/20 Gi tonio influenza virus vaccine, inactivated 03/12/19 Give n influenza virus vaccine, inactivated 01/19/18 Give n influenza virus vaccine, inactivated 02/16/17 Give n [id number] 12y+ bivalent booster vax 01/30/22 Given SARS-CoV-2 mRNA ([id number]-[id number]) vax 05/14/21 Given SARS-CoV-2 (COVID-19) mRNA BNT-162b2 [...] 03/05/23 16:21:00 EST, Route to Pharmacy Electronically, [facility], Partial fill upon patient request if the prescription is for a sched... Start Date: 03/05/23 Status: Ordered Advair Diskus 500 mcg-50 mcg inhalation powder 1, inhalation, Inhalation, 2 times a day, rinse mouth and throat after use, # 60 each, Refills 11, Tot. Refills 11, Maintenance, 08/13/23 20:46:00 EDT, Inhaler, Route to Pharmacy Electronically, [id number], [facility]... Start Date: 08/13/23 Status: Ordered All Day Allergy 10 mg oral tablet 1 tablet, By Mouth, Daily, # 90 tablet, 3 Refills, Maintenance, 08/13/23 20:47:00 EDT, [facility], 163, cm, 08/13/23 18:05:00 EDT, Height, 78, kg, 04/03/23 15:11:00 EST, Dry Weight Start Date: 08/13/23 Status: Ordered amLODIPine 10 mg oral tablet 10 mg, 1, tablet, By Mouth, Daily, # 30 tablet, Refills 4, Tot. Refills 4, Maintenance, 08/13/23 19:14:00 EDT, Route to Pharmacy Electronically, [facility], Partial fill upon patient request if the prescription is for a schedule II opi... Start Date: 08/13/23 Status: Ordered atorvastatin 40 mg oral tablet 1 tablet = 40 mg, By Mouth, Daily, # 90 tablet, 3 Refills, Maintenance, 08/13/23 20:46:00 EDT, Tablet, [facility] Partial fill upon patient request [...] 5 Refills, Maintenance, 07/08/23 15:30:00 EDT, Tablet, [facility] Partial fill upon patient request [...] Gm, 2 Refills, Maintenance, 05/07/23 17:52:00 EST, [facility] 15, APPLY TOPICALLY TO AFFECTED AREA TWO TIMES A DAY FOR TWO WEEKS, 163, cm, ... Start Date: 05/07/23 Status: Ordered diclofenac 1% topical gel 1 application, Topically, 4 times a day, # 100 Gm, 4 Refills, Maintenance, 03/05/23 16:21:00 EST, Gel, [facility] Partial fill upon patient request if the prescription is for a schedule II opioid drug., 163, cm, 03/05/23 15:09:00 EST,... Start Date: 03/05/23 Status: Ordered docusate-senna 50 mg-187 mg oral tablet 2 tablet, By Mouth, 2 times a day, PRN Constipation, # 360 tablet, 3 Refills, Maintenance, 03/05/2316:29:00 EST, Tablet, [facility], Partial fill upon patient request if the prescription is for a schedule II opioid drug., 2 tablet By... Start Date: 03/05/23 Status: Ordered duloxetine 20 mg oral enteric coated capsule 1 capsule, By Mouth, Daily at bedtime, # 30 capsule, 1 Refills, Maintenance, 05/07/23 17:40:00 EST,[facility], 163, cm, 05/07/23 16:54:00 EST, Height, 78, kg, 04/03/23 15:11:00 EST, Dry Weight Start Date: 05/07/23 Status: Ordered empagliflozin 10 mg oral tablet 1 tablet = 10 mg, By Mouth, Daily in AM, # 90 tablet, 3 Refills, Maintenance, 08/13/23 20:46:00 EDT, Tablet, [facility], Partial fill upon [...] 1 each, 4 Refills, Maintenance,07/29/23 15:10:00 EDT, [facility], Partial fill upon patient request if the prescription is for a schedule II opioid drug., 1 spray eac... Start Date: 07/29/23 Status: Ordered Lidoderm 5% film 2 patch, Topically, Daily, remove patches after 12 hours; 2 patches to pain areas; can cut patches in half; do not excede 2 patches., # 180 patch, 3 Refills, Maintenance, 08/13/23 19:20:00 EDT, [facility], Partial fill upon patient req... Start Date: 08/13/23 Stop Date: 08/07/24 Status: Ordered lisinopril 20 mg oral tablet 20 mg, 1, tablet, By Mouth, Daily, # 90 tablet, Refills 3, Tot. Refills 3, Maintenance, 08/13/23 20:46:00 EDT, Route to Pharmacy Electronically, [facility]., 163, cm, 08/13/23 18:05:00EDT, Height, 78, kg, 04/03/23 15:11:00 EST, Dry Weight Start Date: 08/13/23 Status: Ordered melatonin 10 mg oral tablet 1 tablet = 10 mg, By Mouth, Daily at bedtime, PRN as needed for insomnia, # 90 tablet, 3 Refills, Maintenance, 05/07/23 17:52:00 EST, Tablet, [facility], Partial fill upon patient [...] 3 Refills, Maintenance, 04/22/23 20:57:00 EST, [facility] fill upon patient request if the prescription is for a schedule II opioid drug., 163, cm, 04/03/23 15... Start Date: 04/22/23 Status: Ordered Mounjaro 2.5 mg/0.5 mL subcutaneous solution = 2.5 mg, Subcutaneous Injection, Every week, rotate injection sites; use Tirzepatide 0.25mg weeklyx 4 weeks then increase dose, # 4 each, 0 Refills, Maintenance, 08/13/23 19:13:00 EDT, [facility] fill upon patient... Start Date: 08/13/23 Status: Ordered Mounjaro 5 mg/0.5 mL subcutaneous solution = 5 mg, Subcutaneous Injection, Every week, rotate injection sites; use Tirzepatide 0.25mg weekly x4 weeks then increase dose, # 4 each, 0 Refills, Maintenance, 08/13/23 19:14:00 EDT, Solution, [facility] Partial fill upon patient re... Start Date: 08/13/23 Status: Ordered Mounjaro 5 mg/0.5 mL subcutaneous solution = 5 mg, Subcutaneous Injection, Every week, d/c dulaglutide, # 4 each, 4 Refills, Maintenance, 09/21/23 13:38:00 EDT, Solution, [facility] Partial fill upon patient request if the prescription is for a schedule II opioid drug., 163, c... Start Date: 09/21/23 Status: Ordered omeprazole 40 mg oral enteric coated capsule 1 capsule, By Mouth, Daily, PRN GERD, # 90 capsule, 3 Refills, Maintenance, 04/22/23 21:00:00 EST, [facility]., 163, cm, 04/03/23 15:11:00 EST, Height, 78, kg, 04/03/23 15:11:00 EST, Dry Weight Start Date: 04/22/23 Status: Ordered oxyCODONE 15 mg oral tablet 1 tablet = 15 mg, By Mouth, Every 8 hours, PRN Pain , Severe, [employer] checked. Opioid agreement at [facility], # 84 tablet, 0 Refills, Maintenance, 10/09/23 15:23:00 EDT, [facility], Partial fill upon patient [...] 10/09/23 13:08:00 EDT, Route to Pharmacy Electronically, [facility], 163, cm, 09/14/23 14:23:00 EDT, Height, 78, kg, 04/03/23 15:11:00 E... Start Date: 10/09/23 Status: Ordered topiramate 100 mg oral tablet 1 tablet = 100 mg, By Mouth, Daily, increase dose, # 30 tablet, 4 Refills, Maintenance, 08/13/23 19:21:00 EDT, Tablet, [facility]., Partial fill upon patient request if the prescription is for a schedule II opioid drug., 163, cm, ... Start Date: 08/13/23 Status: Ordered triamcinolone 55 mcg/inh nasal spray 1 sprays = 55 mcg, Nares, Both, Daily, # 3 each, 3 Refills, Maintenance, 03/05/23 16:29:00 EST, [facility]., Partial fill upon patient request if the prescription is for a schedule II opioid drug., 1 sprays Nares, Both Daily, 163, cm, 1... Start Date: 03/05/23 Status: Ordered Trulicity Pen 1.5 mg/0.5 mL subcutaneous solution = 1.5 mg, Subcutaneous Infusion, Every week, # 4 each, 11 Refills, Maintenance, 08/14/23 12:21:00 EDT, [facility]., Partial fill upon patient request if the prescription is for a schedule II opioid drug., 163, cm, 08/13/23 18:05:00 EDT,... 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 Sex Patient Care team information Care Team Personnel Name: Graciela Thrasher RN Position: [facility] SN RN Member Role: Primary Care Nurse Name: Stevie Angel RN Position: [facility] RN Member Role: Primary Care Nurse Name: Keily Ortega RN Position: [facility] RN Member Role: Primary Care Nurse Name: Graciela Munroe RN Position: [facility] RN Member Role: Primary Care Nurse Name: Nichole Pichardo RN Position: [facility] RN Member Role: Primary Care Nurse Name: Melvin Whitfield RN Position: [facility] AMB Nurse Member Role: Primary Care Nurse Name: Phuong Berkowitz RN Position: [facility] RN Member Role: Primary Care Nurse Name: Pura Walker MD Position: [facility] Physician - Primary Care Member Role: PCP Address: Address: [address] [place] [id number] Name: Joselyn Rain RN Position: [facility] Hospital Brim Curler Member Role: Primary Care Nurse Care Team Related Persons Name: IRA ROMERO Address: home [address] [place] [address] Name: JHON LARSON Address: [address] [place] [address] Name: JHON LARSON Address: [address] [place] [address] Name: GALO CATALAN Name: NANCY CATALAN Address: home [address] [place] [address]
--- OUTSIDE RECORDS SUMMARY | 2023-12-31 10:51 | XMS_ITS | Continuity of Care Document ---
Author Organization [facility] Adult Medicine Address [address] [place] [address]- Care Team Providers Care Conference Services Manager Name Role Phone Pura Walker MD Primary Care Physician Encounter [facility] Date(s): 05/07/23 - 06/06/23 [facility] Medicine [address], [place] [address] Encounter Diagnosis INA (stress urinary incontinence, [...] influenza virus vaccine, inactivated 02/16/17 Give n [id number] 12y+ bivalent booster vax 01/30/22 Given SARS-CoV-2 mRNA ([id number]) vax 05/14/21 Given SARS-CoV-2 (COVID-19) mRNA BNT-162b2 [...] 17:00:00 EDT, Inhaler, Route to Pharmacy Electronically, [id number], [facility]... Start Date: 09/25/22 Status: Ordered All Day [...] 3 Refills, Maintenance, 09/25/22 16:58:00 EDT, Tablet, [facility]., Partial fill upon patient request if [...] Gm, 2 Refills, Maintenance, 05/07/23 17:52:00 EST, [facility] 15, APPLY TOPICALLY TO AFFECTED AREA TWO TIMES A DAY FOR TWO WEEKS, 163, cm, ... Start Date: 05/07/23 Status: Ordered diclofenac 1% topical gel 1 application, Topically, 4 times a day, # 100 Gm, 4 Refills, Maintenance, 03/05/23 16:21:00 EST, Gel, [facility] Partial fill upon patient request if the prescription is for a schedule II opioid drug., 163, cm, 03/05/23 15:09:00 EST,... Start Date: 03/05/23 Status: Ordered docusate-senna 50 mg-187 mg oral tablet 2 tablet, By Mouth, 2 times a day, PRN Constipation, # 360 tablet, 3 Refills, Maintenance, 03/05/2316:29:00 EST, Tablet, [facility] Partial fill upon patient request if the prescription is for a schedule II opioid drug., 2 tablet By... Start Date: 03/05/23 Status: Ordered duloxetine 20 mg oral enteric coated capsule 1 capsule, By Mouth, Daily at bedtime, # 30 capsule, 1 Refills, Maintenance, 05/07/23 17:40:00 EST[facility], 163, cm, 05/07/23 16:54:00 EST, Height, [...] 3 Refills, Maintenance, 09/25/22 17:01:00 EDT, Tablet, [facility]., Partial fill upon patient request if the prescription is for aschedule II opioid drug., 163, cm, 09/25/22 16:20:0... Start Date: 09/25/22 Status: Ordered ibuprofen 800 mg oral tablet 1, tablet, By Mouth, 3 times a day, PRN, # 90 tablet, Refills 0, Maintenance, NEEDED FOR PAIN, 05/07/23 17:40:00 EST, [facility], 163, cm, 05/07/23 16:54:00 EST, Height, 78, kg, 04/03/23 15:11:00 EST, Dry... Start Date: 05/07/23 Status: Ordered lidocaine 5% topical film 1 patch, Topically, Daily, PRN Pain , Mild, remove after 12 hours, # 13 each, 5 Refills, Maintenance, 09/25/22 16:59:00 EDT, Film, [facility] Partial fill upon patient request if theprescription is for a schedule II opioid drug., 1 p... Start Date: 09/25/22 Status: Ordered Lidoderm 5% film 2 patch, Topically, Daily, remove patches after 12 hours; 2 patches to pain areas; can cut patches in half; do not excede 2 patches., # 60 patch, 4 Refills, Maintenance, 03/05/23 16:22:00 EST, [facility] Partial fill upon patient requ... Start Date: 03/05/23 Stop Date: 08/02/23 Status: Ordered lisinopril 20 mg oral tablet 20 mg, 1, tablet, By Mouth, Daily, # 90 tablet, Refills 3, Tot. Refills 3, Maintenance, 11/20/22 16:48:00 EDT, Route to Pharmacy Electronically, [facility]., 163, cm, 11/20/22 16:00:00EDT, Height, 83, kg, 02/11/22 19:19:00 EST, Dry Weight Start Date: 11/20/22 Status: Ordered melatonin 10 mg oral tablet 1 tablet = 10 mg, By Mouth, Daily at bedtime, PRN as needed for insomnia, # 90 tablet, 3 Refills, Maintenance, 05/07/23 17:52:00 EST, Tablet, [facility]., Partial fill upon patient request if [...] 3 Refills, Maintenance, 04/22/23 20:57:00 EST, Tablet, [facility] Partial fill upon patient request if the prescription is for a schedule II opioid drug., 163, cm, 04/03/23 15... Start Date: 04/22/23 Status: Ordered omeprazole 40 mg oral enteric coated capsule 1 capsule, By Mouth, Daily, PRN GERD, # 90 capsule, 3 Refills, Maintenance, 04/22/23 21:00:00 EST, [facility]., 163, cm, 04/03/23 15:11:00 EST, Height, 78, kg, 04/03/23 15:11:00 EST, Dry Weight Start Date: 04/22/23 Status: Ordered oxyCODONE 15 mg oral tablet 1 tablet = 15 mg, By Mouth, Every 8 hours, PRN Pain , Severe, MassPat checked. Opioid agreement at [facility], # 84 tablet, 0 Refills, Maintenance, 05/19/23 17:33:00 EST, [facility], Partial fill [...] 05/11/23 8:53:00 EST, Route to Pharmacy Electronically, [facility], 163, cm, 05/07/23 16:54:00 EST, Height, 78, kg... Start Date: 05/11/23 Status: Ordered topiramate 25 mg oral capsule 2 capsule = 50 mg, By Mouth, Daily, take 1 cap daily x 2 weeks then 2 caps daily, # 60 capsule, 4 Refills, Maintenance, 03/05/23 16:23:00 EST, Capsule, [facility]., Partial fill upon patient request if the prescription is for a schedule... Start Date: 03/05/23 Status: Ordered traZODone 50 mg oral tablet 1/2 TO 1 TABLET, By Mouth, Daily at bedtime, # 90 tablet, Refills 3, Tot. Refills 3, Maintenance, 04/22/23 20:58:00 EST, Route to Pharmacy Electronically, [facility]., 163, cm, 04/03/23 15:11:00 EST, Height, 78, kg, 04/03/23 15:11:00 ES... Start Date: 04/22/23 Stop Date: 04/16/24 Status: Ordered triamcinolone 55 mcg/inh nasal spray 1 sprays = 55 mcg, Nares, Both, Daily, # 3 each, 3 Refills, Maintenance, 03/05/23 16:29:00 EST, [facility]., Partial fill upon patient request if the prescription is for a schedule II opioid drug., 1 sprays Nares, Both Daily, 163, cm, 1... Start Date: 03/05/23 Status: Ordered Trulicity Pen 1.5 mg/0.5 mL subcutaneous solution = 1.5 mg, Subcutaneous Infusion, Every week, # 4 each, 11 Refills, Maintenance, 11/20/22 16:49:00 EDT, [facility], Partial fill upon patient request if the prescription is for a schedule II opioid drug., 163, cm, 11/20/22 16:00:00 EDT,... 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 Fabian [phone] Confirmed Active Syncope and collapse Confirmed Active Tobacco dependence Confirmed Active DM2 (diabetes mellitus, type 2) Confirmed 04/03/17 Active Incontinence of urine 4 Confirmed Active 1seen on MRI 10/2016, rec repeat imaging in October 2017 pain managemnt team/ Dr Diop indicated they thought pain was fibromyalgia 3seen on CT Abd 09/18/16 at [facility], pending MRI 4urge and stress Diagnosis Diagnosis Type Effective Dates Health Status Cl inical Service Informant INA (stress urinary incontinence, female) Discharge Diagnosis 02/11/19 Social History Social History Type Response Tobacco Other: tobacco 2 - 3 per day (cut down 2 weeks ago). Sex Radiology * Event Display: MRI Spine, Non- Authored Date: * Event Display: MRI Spine, Non- Authored Date: * Event Display: X-Ray Spine, Non- Authored Date: * Event Display: MRI Spine, Non- Authored Date: * Event Display: IR Special Procedures, Non- Authored Date: Patient Care team information Care Team Personnel Name: Graciela Thrasher RN Position: [facility] RN Member Role: Primary Care Nurse Name: Stevie Angel RN Position: [facility] RN Member Role: Primary Care Nurse Name: Keily Ortega RN Position: [facility] RN Member Role: Primary Care Nurse Name: Graciela Munroe RN Position: [facility] RN Member Role: Primary Care Nurse Name: Nichole Pichardo RN Position: [facility] RN Member Role: Primary Care Nurse Name: Melvin Whitfield RN Position: [facility] RASHID Nurse Member Role: Primary Care Nurse Name: Phuong Berkowitz RN Position: [facility] RN Member Role: Primary Care Nurse Name: Pura Walker MD Position: [facility] Physician - Primary Care Member Role: PCP Address: Address: [address] [place] [address] [place] [address]- Name: Joselyn Rain RN Position: [facility] Drafter Assistant Member Role: Primary Care Nurse Care Team Related Persons Name: NICK IRA Address: home [address] [place] [address] Name: JHON LARSON Address: home [address] [place] [address] Name: JHON LARSON Address: [address] [place] [address] Name: GALO CATALAN Name: NANCY CATALAN Address: home [address] [place] [address]
--- OUTSIDE RECORDS SUMMARY | 2023-12-31 10:51 | XMS_ITS | Continuity of Care Document ---
Author Organization [facility] Address [address] [place] [address]- Care Team Providers Care Upper Tier Name Role Phone Pura Walker MD Primary Care Physician [place] [facility] [place]s): 04/03/23 - 05/03/23 [facility] [address], [place] [address] Attending Physician: Clarence Reynaga Admitting Physician: AdmClarence brown Referring Physician: Admtr, ArJeny Allergies, Adverse Reactions, Alerts Substance Reaction Severity [...] influenza virus vaccine, inactivated 02/16/17 Give n [id number] 12y+ bivalent booster vax 01/30/22 Given SARS-CoV-2 mRNA ([id number]) vax 05/14/21 Given SARS-CoV-2 (COVID-19) mRNA BNT-162b2 [...] 03/05/23 16:21:00 EST, Route to Pharmacy Electronically, [facility], Partial fill upon patient request if the prescription is for a sched... Start Date: 03/05/23 Status: Ordered Advair Diskus 500 mcg-50 mcg inhalation powder 1, inhalation, Inhalation, 2 times a day, rinse mouth and throat after use, # 60 each, Refills 11, Tot. Refills 11, Maintenance, 09/25/22 17:00:00 EDT, Inhaler, Route to Pharmacy Electronically, [id number], [facility]... Start Date: 09/25/22 Status: Ordered albuterol 0.083% inhalation solution 3 mL = 2.5 mg, Neb, Every 4 hours, PRN Wheezing/Shortness of Breath, # 100 each, 11 Refills, Maintenance, 12/26/22 8:14:00 EDT, Inhalation Solution, [facility], Partial fill upon patient request if the prescription is for a schedule II... Start Date: 12/26/22 Status: Ordered All Day Allergy 10 mg oral tablet 1 tablet, By Mouth, Daily, # 90 tablet, 3 Refills, Maintenance, 11/20/22 16:48:00 EDT, [facility], 163, cm, 11/20/22 16:00:00 EDT, Height, 83, kg, 02/11/22 19:19:00 EST, Dry Weight Start Date: 11/20/22 Status: Ordered amLODIPine 5 mg oral tablet 5 mg, 1, tablet, By Mouth, Daily, # 90 tablet, Refills 3, Tot. Refills 3, Maintenance, 03/05/23 16:29:00 EST, Route to Pharmacy Electronically, [facility], Partial fill upon patient request if the prescription is for a schedule II opio... Start Date: 03/05/23 Status: Ordered atorvastatin 40 mg oral tablet 1 tablet = 40 mg, By Mouth, Daily, # 90 tablet, 3 Refills, Maintenance, 09/25/22 16:58:00 EDT, Tablet, [facility], Partial fill upon patient request if [...] Gm, 2 Refills, Maintenance, 12/26/22 8:13:00 EDT, [facility] 15, APPLY TOPICALLY TO AFFECTED AREA TWO TIMES A DAY FOR TWO WEEKS, 163, cm, ... Start Date: 12/26/22 Status: Ordered diclofenac 1% topical gel 1 application, Topically, 4 times a day, # 100 Gm, 4 Refills, Maintenance, 03/05/23 16:21:00 EST, Gel, [facility]., Partial fill upon patient request if the prescription is for a schedule II opioid drug., 163, cm, 03/05/23 15:09:00 EST,... Start Date: 03/05/23 Status: Ordered docusate-senna 50 mg-187 mg oral tablet 2 tablet, By Mouth, 2 times a day, PRN Constipation, # 360 tablet, 3 Refills, Maintenance, 03/05/2316:29:00 EST, Tablet, [facility]., Partial fill upon patient request [...] 3 Refills, Maintenance, 09/25/22 17:01:00 EDT, Tablet, [facility]., Partial fill upon patient request if the prescription is for aschedule II opioid drug., 163, cm, 09/25/22 16:20:0... Start Date: 09/25/22 Status: Ordered ibuprofen 800 mg oral tablet 1, tablet, By Mouth, 3 times a day, PRN, # 90 tablet, Refills 1, Tot. Refills 1, Maintenance, NEEDED FOR PAIN, 10/22/22 15:19:00 EDT, Route to Pharmacy Electronically, [facility]., 163, cm, 09/25/22 16:20:00 EDT, Height, 83, kg, 11/0... Start Date: 10/22/22 Status: Ordered Januvia 100 mg oral tablet 1 tablet, By Mouth, Daily, # 30 tablet, 11 Refills, Maintenance, 11/26/22 10:02:00 EDT, [facility], 163, cm, 11/20/22 16:00:00 EDT, Height, 83, kg, 02/11/22 19:19:00 EST, Dry Weight Start Date: 11/26/22 Status: Ordered lidocaine 5% topical film 1 patch, Topically, Daily, PRN Pain , Mild, remove after 12 hours, # 13 each, 5 Refills, Maintenance, 09/25/22 16:59:00 EDT, Film, [facility]., Partial fill upon patient request if theprescription is for a schedule II opioid drug., 1 p... Start Date: 09/25/22 Status: Ordered Lidoderm 5% film 2 patch, Topically, Daily, remove patches after 12 hours; 2 patches to pain areas; can cut patches in half; do not excede 2 patches., # 60 patch, 4 Refills, Maintenance, 03/05/23 16:22:00 EST, [facility], Partial fill upon patient requ... Start Date: 03/05/23 Stop Date: 08/02/23 Status: Ordered lisinopril 20 mg oral tablet 20 mg, 1, tablet, By Mouth, Daily, # 90 tablet, Refills 3, Tot. Refills 3, Maintenance, 11/20/22 16:48:00 EDT, Route to Pharmacy Electronically, [facility], 163, cm, 11/20/22 16:00:00EDT, Height, 83, kg, 02/11/22 19:19:00 EST, Dry Weight Start Date: 11/20/22 Status: Ordered mirtazapine 30 mg oral tablet 1 tablet = 30 mg, By Mouth, Daily at bedtime, # 90 tablet, 3 Refills, Maintenance, 04/22/23 20:57:00 EST, Tablet, [facility], Partial fill upon patient request if the prescription is for a schedule II opioid drug., 163, cm, 04/03/23 15... Start Date: 04/22/23 Status: Ordered omeprazole 40 mg oral enteric coated capsule 1 capsule, By Mouth, Daily, PRN GERD, # 90 capsule, 3 Refills, Maintenance, 04/22/23 21:00:00 EST, [facility], 163, cm, 04/03/23 15:11:00 EST, Height, 78, kg, 04/03/23 15:11:00 EST, Dry Weight Start Date: 04/22/23 Status: Ordered oxyCODONE 15 mg oral tablet 1 tablet = 15 mg, By Mouth, Every 8 hours, PRN Pain , Severe, MassPat checked. Opioid agreement at [facility], # 84 tablet, 0 Refills, Maintenance, 04/16/23 21:28:00 EST, [facility]/pharm[facility] #[id number], Partial fill upon patient request if the prescription is for a sc... Start Date: 04/16/23 Stop Date: 05/14/23 Status: Ordered prazosin 2 mg oral capsule [...] 01/27/23 9:28:00 EDT, Route to Pharmacy Electronically, [facility] 163, cm, 11/20/22 16:00:00 EDT, Height, 83, kg... Start Date: 01/27/23 Status: Ordered topiramate 25 mg oral capsule 2 capsule = 50 mg, By Mouth, Daily, take 1 cap daily x 2 weeks then 2 caps daily, # 60 capsule, 4 Refills, Maintenance, 03/05/23 16:23:00 EST, Capsule, [facility]., Partial fill upon patient request if the prescription is for a schedule... Start Date: 03/05/23 Status: Ordered traZODone 50 mg oral tablet 1/2 TO 1 TABLET, By Mouth, Daily at bedtime, # 90 tablet, Refills 3, Tot. Refills 3, Maintenance, 04/22/23 20:58:00 EST, Route to Pharmacy Electronically, [facility]., 163, cm, 04/03/23 15:11:00 EST, Height, 78, kg, 04/03/23 15:11:00 ES... Start Date: 04/22/23 Stop Date: 04/16/24 Status: Ordered triamcinolone 55 mcg/inh nasal spray 1 sprays = 55 mcg, Nares, Both, Daily, # 3 each, 3 Refills, Maintenance, 03/05/23 16:29:00 EST, [facility]., Partial fill upon patient request if the prescription is for a schedule II opioid drug., 1 sprays Nares, Both Daily, 163, cm, 1... 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 Charlene Fabian [phone] Confirmed Active Syncope and collapse Confirmed Active Tobacco dependence Confirmed Active DM2 (diabetes mellitus, type 2) Confirmed 04/03/17 Active Incontinence of urine 5 Confirmed Active 1on polysomnogram 2seen on MRI 10/2016, rec repeat imaging in October 2017 pain managemnt team/ Dr Diop indicated they thought pain was fibromyalgia 4seen on CT Abd 09[place]18[place]16 [place] [facility], [place] 5urge and stress Social History Social History Type Response Smoking Status Current every day sm oker; Type: Cigarettes; Tobacco use times per day: 1/2 ppd; entered on: 12/24/17 Sex Patient Care team information Care Team Personnel Name: Graciela Thrasher RN Position: [facility] RN Member Role: Primary Care Nurse Name: Stevie Angel RN Position: S RN Member Role: Primary Care Nurse Name: Keily Ortega RN Position: S RN Member Role: Primary Care Nurse Name: Graciela Munroe RN Position: S RN Member Role: Primary Care Nurse Name: Nichole Pichardo RN Position: [facility] RN Member Role: Primary Care Nurse Name: Melvin Whitfield RN Position: [facility] Nurse Member Role: Primary Care Nurse Name: Phuong Berkowitz RN Position: [facility] RN Member Role: Primary Care Nurse Name: Pura Walker MD Position: [facility] Physician - Primary Care Member Role: PCP Address: Address: [address] [place] [id number] Name: Joselyn Rain RN Position: [facility] Elementary Vocal Music Teacher Member Role: Primary Care Nurse Care Team Related Persons Name: NICK IRA Address: home [address] [place] [address] Name: JHON LARSON Address: home [address] [place] [address] Name: JHON LARSON Address: home [address] [place] [address] Name: GALO CATALAN Name: NANCY CATALAN Address: home [address] [place] [address]
--- OUTSIDE RECORDS SUMMARY | 2023-12-31 10:52 | XMS_ITS | Continuity of Care Document ---
Author Organization [facility] Address [address] [place] [address] Dr [address] [place] [address]- Care Team Providers Care Precision Assembler Bench Name Role Phone Pura Walker MD Primary Care Physician Encounter [facility] Date(s): 07/08/23 - 07/15/[address] [place] [address]- Encounter Diagnosis Perianal abscess(Discharge Diagnosis) - 07/08/23 Attending Physician: Caren Chance MD Referring Physician: Pura Walker MD Allergies, [...] influenza virus vaccine, inactivated 02/16/17 Give n [id number] 12y+ bivalent booster vax 01/30/22 Given SARS-CoV-2 mRNA ([id number]-[id number]-gjyuk) vax 05/14/21 Given SARS-CoV-2 (COVID-19) mRNA BNT-162b2 [...] 03/05/23 16:21:00 EST, Route to Pharmacy Electronically, [facility], Partial fill upon patient request if the prescription is for a sched... Start Date: 03/05/23 Status: Ordered Advair Diskus 500 mcg-50 mcg inhalation powder 1, inhalation, Inhalation, 2 times a day, rinse mouth and throat after use, # 60 each, Refills 11, Tot. Refills 11, Maintenance, 09/25/22 17:00:00 EDT, Inhaler, Route to Pharmacy Electronically, [id number], [facility]... Start Date: 09/25/22 Status: Ordered All Day Allergy 10 mg oral tablet 1 tablet, By Mouth, Daily, # 90 tablet, 3 Refills, Maintenance, 11/20/22 16:48:00 EDT, [facility], 163, cm, 11/20/22 16:00:00 EDT, Height, 83, kg, 02/11/22 19:19:00 EST, Dry Weight Start Date: 11/20/22 Status: Ordered amLODIPine 5 mg oral tablet 5 mg, 1, tablet, By Mouth, Daily, # 90 tablet, Refills 3, Tot. Refills 3, Maintenance, 03/05/23 16:29:00 EST, [facility] [...] 5 Refills, Maintenance, 07/08/23 15:30:00 EDT, Tablet, [facility]., Partial fill upon patient [...] Gm, 2 Refills, Maintenance, 05/07/23 17:52:00 EST, [facility] 15, APPLY TOPICALLY TO AFFECTED AREA TWO TIMES A DAY FOR TWO WEEKS, 163, eugenia, ... Start Date: 05/07/23 Status: Ordered diclofenac 1% topical gel 1 application, Topically, 4 times a day, # 100 Gm, 4 Refills, Maintenance, 03/05/23 16:21:00 EST, Gel, [facility]., Partial fill upon patient request if the prescription is for a schedule II opioid drug., 163, eugenia, 03/05/23 15:09:00 EST,... Start Date: 03/05/23 Status: Ordered docusate-senna 50 mg-187 mg oral tablet 2 tablet, By Mouth, 2 times a day, PRN Constipation, # 360 tablet, 3 Refills, Maintenance, 03/05/2316:29:00 EST, Tablet, [facility]., Partial fill upon patient request if the prescription is for a schedule II opioid drug., 2 tablet By... Start Date: 03/05/23 Status: Ordered duloxetine 20 mg oral enteric coated capsule 1 capsule, By Mouth, Daily at bedtime, # 30 capsule, 1 Refills, Maintenance, 05/07/23 17:40:00 EST,[facility], 163, cm, 05/07/23 16:54:00 EST, Height, [...] 3 Refills, Maintenance, 09/25/22 17:01:00 EDT, Tablet, [facility], Partial fill upon patient request if the prescription is for aschedule II opioid drug., 163, cm, 09/25/22 16:20:0... Start Date: 09/25/22 Status: Ordered ibuprofen 800 mg oral tablet 1, tablet, By Mouth, 3 times a day, PRN, # 90 tablet, Refills 0, Maintenance, NEEDED FOR PAIN, 05/07/23 17:40:00 EST, Route to Pharmacy Electronically, [facility], 163, cm, 05/07/23 16:54:00 EST, Height, 78, kg, 04/03/23 15:11:00 EST, Dry... Start Date: 05/07/23 Status: Ordered lidocaine 5% topical film 1 patch, Topically, Daily, PRN Pain , Mild, remove after 12 hours, # 13 each, 5 Refills, Maintenance, 09/25/22 16:59:00 EDT, Film, [facility]., Partial fill upon patient request if theprescription is for a schedule II opioid drug., 1 p... Start Date: 09/25/22 Status: Ordered Lidoderm 5% film 2 patch, Topically, Daily, remove patches after 12 hours; 2 patches to pain areas; can cut patches in half; do not excede 2 patches., # 60 patch, 4 Refills, Maintenance, 03/05/23 16:22:00 EST, [facility]., Partial fill upon patient requ... Start Date: 03/05/23 Stop Date: 08/02/23 Status: Ordered lisinopril 20 mg oral tablet 20 mg, 1, tablet, By Mouth, Daily, # 90 tablet, Refills 3, Tot. Refills 3, Maintenance, 11/20/22 16:48:00 EDT, Route to Pharmacy Electronically, [facility]., 163, cm, 11/20/22 16:00:00EDT, Height, 83, kg, 02/11/22 19:19:00 EST, Dry Weight Start Date: 11/20/22 Status: Ordered melatonin 10 mg oral tablet 1 tablet = 10 mg, By Mouth, Daily at bedtime, PRN as needed for insomnia, # 90 tablet, 3 Refills, Maintenance, 05/07/23 17:52:00 EST, Tablet, [facility]., Partial fill upon patient [...] 3 Refills, Maintenance, 04/22/23 20:57:00 EST, Tablet, [facility]., Partial fill upon patient request if the prescription is for a schedule II opioid drug., 163, cm, 12/29/23 15... Start Date: 04/22/23 Status: Ordered omeprazole 40 mg oral enteric coated capsule 1 capsule, By Mouth, Daily, PRN GERD, # 90 capsule, 3 Refills, Maintenance, 04/22/23 21:00:00 EST, [facility]., 163, cm, 04/03/23 15:11:00 EST, Height, 78, kg, 04/03/23 15:11:00 EST, Dry Weight Start Date: 04/22/23 Status: Ordered oxyCODONE 15 mg oral tablet 1 tablet = 15 mg, By Mouth, Every 8 hours, PRN Pain , Severe, [facility] checked. Opioid agreement at [facility], # 84 tablet, 0 Refills, Maintenance, 06/18/23 12:10:00 EDT, [facility], Partial fill upon [...] 05/11/23 8:53:00 EST, Route to Pharmacy Electronically, [facility]., 163, cm, 05/07/23 16:54:00 EST, Height, 78, kg... Start Date: 05/11/23 Status: Ordered topiramate 25 mg oral capsule 2 capsule = 50 mg, By Mouth, Daily, take 1 cap daily x 2 weeks then 2 caps daily, # 60 capsule, 4 Refills, Maintenance, 03/05/23 16:23:00 EST, Capsule, [facility]., Partial fill upon patient request if the prescription is for a schedule... Start Date: 03/05/23 Status: Ordered traZODone 50 mg oral tablet 1/2 TO 1 TABLET, By Mouth, Daily at bedtime, # 90 tablet, Refills 3, Tot. Refills 3, Maintenance, 04/22/23 20:58:00 EST, Route to Pharmacy Electronically, [facility]., 163, cm, 04/03/23 15:11:00 EST, Height, 78, kg, 04/03/23 15:11:00 ES... Start Date: 04/22/23 Stop Date: 04/16/24 Status: Ordered triamcinolone 55 mcg/inh nasal spray 1 sprays = 55 mcg, Nares, Both, Daily, # 3 each, 3 Refills, Maintenance, 03/05/23 16:29:00 EST, [facility]., Partial fill upon patient request if the prescription is for a schedule II opioid drug., 1 sprays Nares, Both Daily, 163, cm, 1... Start Date: 03/05/23 Status: Ordered Trulicity Pen 1.5 mg/0.5 mL subcutaneous solution = 1.5 mg, Subcutaneous Infusion, Every week, # 4 each, 11 Refills, Maintenance, 11/20/22 16:49:00 EDT, [facility], Partial fill upon patient request if the prescription is for a schedule II opioid drug., 163, cm, 11/20/22 16:00:00 EDT,... 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 [place] 4urge and stress Diagnosis Diagnosis Type Effective Dates Health Status Cl inical Service Informant Perianal abscess Discharge Diagnosis 07/08/23 Vital Signs Most recent to oldest [Reference Range]: 1 Height 163 cm (07/08/23 9:38 AM) Weight 80.9 kg (07/08/23 9:38 AM) Pulse Rate [55-90 bpm] 87 bpm (07/08/23 9:38 AM) Body Mass Index [18.5-24.99 kg/m2] 30.45 kg/m2 *>HHI* (07/08/23 9:38 AM) Blood Pressure [90-138/55-84 mm Hg] 132/ 73mm Hg (07/08/23 9:38 AM) Temperature [96.8-100.4 DegF] 96.8 DegF (07/08/23 9:38 AM) Blood pressure sites Arm, right (07/08/23 9:38 AM) Temperature Route Temporal (07/08/23 9:38 AM) Social History Social History Type Response Tobacco Other: tobacco 2 - 3 per day (cut down 2 weeks ago). Sex Patient Care team information Care Team Personnel Name: Graciela Thrasher RN Position: [facility] RN Member Role: Primary Care Nurse Name: Stevie Angel RN Position: S RN Member Role: Primary Care Nurse Name: Keily Ortega RN Position: S RN Member Role: Primary Care Nurse Name: Graciela Munroe RN Position: S RN Member Role: Primary Care Nurse Name: Nichole Pichardo RN Position: [facility] RN Member Role: Primary Care Nurse Name: Melvin Whitfield RN Position: [facility] AMB Nurse Member Role: Primary Care Nurse Name: Phuong Berkowitz RN Position: [facility] RN Member Role: Primary Care Nurse Name: Pura Walker MD Position: [facility] Physician - Primary Care Member Role: PCP Address: Address: [address] [place] [id number] Name: Joselyn Rain RN Position: [facility] Hospital Generator Technician Member Role: Primary Care Nurse Care Team Related Persons Name: IRA ROMERO Address: home [address] [place] [address] Name: JHON LARSON Address: [address] [place] [address] Name: JHON LARSON Address: [address] [place] [address] Name: GALO CATALAN Name: NANCY CATALAN Address: home [address] [place] [address]
--- OUTSIDE RECORDS SUMMARY | 2023-12-31 10:52 | XMS_ITS | Continuity of Care Document ---
Author Organization [facility] Address [address] [place] [address]- Care Team Providers Care Offal Baler Name Role Phone Pura Walker MD Primary Care Physician Encounter [facility] [place] Date(s[place] 04/29/23 - 05/20/[address] [address]- Encounter Diagnosis Postlaminectomy syndrome, not elsewhere classified(Final) - Discharge Disposition: A-D/C Home Attending Physician: Pura Walker MD Admitting Physician: [...] influenza virus vaccine, inactivated 02/16/17 Give n [id number] 12y+ bivalent booster vax 01/30/22 Given SARS-CoV-2 mRNA (zaoucol-gpet-lsrnt) vax 05/14/21 Given SARS-CoV-2 (COVID-19) mRNA BNT-162b2 [...] 17:00:00 EDT, Inhaler, Route to Pharmacy Electronically, [id number], [facility]-... Start Date: 09/25/22 Status: Ordered All Day Allergy 10 mg oral tablet 1 tablet, By Mouth, Daily, # 90 tablet, 3 Refills, Maintenance, 11/20/22 16:48:00 EDT, [facility], 163, cm, 11/20/22 16:00:00 EDT, Height, 83, kg, 02/11/22 19:19:00 EST, Dry Weight Start Date: 11/20/22 Status: Ordered amLODIPine 5 mg oral tablet 5 mg, 1, tablet, By Mouth, Daily, # 90 tablet, Refills 3, Tot. Refills 3, Maintenance, 03/05/23 16:29:00 EST, Route to Pharmacy Electronically, [facility], Partial fill upon patient request if the prescription is for a schedule II opio... Start Date: 03/05/23 Status: Ordered atorvastatin 40 mg oral tablet 1 tablet = 40 mg, By Mouth, Daily, # 90 tablet, 3 Refills, Maintenance, 09/25/22 16:58:00 EDT, Tablet, [facility]., Partial fill upon patient [...] Gm, 2 Refills, Maintenance, 05/07/23 17:52:00 EST, [facility] 15, APPLY TOPICALLY TO AFFECTED AREA TWO TIMES A DAY FOR TWO WEEKS, 163, cm, ... Start Date: 05/07/23 Status: Ordered diclofenac 1% topical gel 1 application, Topically, 4 times a day, # 100 Gm, 4 Refills, Maintenance, 03/05/23 16:21:00 EST, Gel, [facility] Partial fill upon patient request if the prescription is for a schedule II opioid drug., 163, cm, 03/05/23 15:09:00 EST,... Start Date: 03/05/23 Status: Ordered docusate-senna 50 mg-187 mg oral tablet 2 tablet, By Mouth, 2 times a day, PRN Constipation, # 360 tablet, 3 Refills, Maintenance, 03/05/2316:29:00 EST, Tablet, [facility] Partial fill upon patient request if the prescription is for a schedule II opioid drug., 2 tablet By... Start Date: 03/05/23 Status: Ordered duloxetine 20 mg oral enteric coated capsule 1 capsule, By Mouth, Daily at bedtime, # 30 capsule, 1 Refills, Maintenance, 05/07/23 17:40:00 EST,[facility], 163, cm, 05/07/23 16:54:00 EST, Height, [...] Refills, Maintenance, 09/25/22 17:01:00 EDT, Tablet, [facility]., Partial fill upon patient request if the prescription is for aschedule II opioid drug., 163, cm, 09/25/22 16:20:0... Start Date: 09/25/22 Status: Ordered ibuprofen 800 mg oral tablet 1, tablet, By Mouth, 3 times a day, PRN, # 90 tablet, Refills 0, Maintenance, NEEDED FOR PAIN, 05/07/23 17:40:00 EST, Route to [facility]acy [facility]ically, [facility], 163, cm, 05/07/23 16:54:00 EST, Height, 78, kg, 04/03/23 15:11:00 EST, Dry... Start Date: 05/07/23 Status: Ordered lidocaine 5% topical film 1 patch, Topically, Daily, PRN Pain , Mild, remove after 12 hours, # 13 each, 5 Refills, Maintenance, 09/25/22 16:59:00 EDT, Film, [facility] Partial fill upon patient request if theprescription is for a schedule II opioid drug., 1 p... Start Date: 09/25/22 Status: Ordered Lidoderm 5% film 2 patch, Topically, Daily, remove patches after 12 hours; 2 patches to pain areas; can cut patches in half; do not excede 2 patches., # 60 patch, 4 Refills, Maintenance, 03/05/23 16:22:00 EST, [facility] Partial fill upon patient requ... Start Date: 03/05/23 Stop Date: 08/02/23 Status: Ordered lisinopril 20 mg oral tablet 20 mg, 1, tablet, By Mouth, Daily, # 90 tablet, Refills 3, Tot. Refills 3, Maintenance, 11/20/22 16:48:00 EDT, Route to Pharmacy Electronically, [facility]., 163, cm, 11/20/22 16:00:00EDT, Height, 83, kg, 02/11/22 19:19:00 EST, Dry Weight Start Date: 11/20/22 Status: Ordered melatonin 10 mg oral tablet 1 tablet = 10 mg, By Mouth, Daily at bedtime, PRN as needed for insomnia, # 90 tablet, 3 Refills, Maintenance, 05/07/23 17:52:00 EST, Tablet, [facility]., Partial fill upon patient [...] 3 Refills, Maintenance, 04/22/23 20:57:00 EST, Tablet, [facility] Partial fill upon patient request if the prescription is for a schedule II opioid drug., 163, cm, 04/03/23 15... Start Date: 04/22/23 Status: Ordered omeprazole 40 mg oral enteric coated capsule 1 capsule, By Mouth, Daily, PRN GERD, # 90 capsule, 3 Refills, Maintenance, 04/22/23 21:00:00 EST, [facility] 163, cm, 04/03/23 15:11:00 EST, Height, 78, kg, 04/03/23 15:11:00 EST, Dry Weight Start Date: 04/22/23 Status: Ordered oxyCODONE 15 mg oral tablet 1 tablet = 15 mg, By Mouth, Every 8 hours, PRN Pain , Severe, [employer] checked. Opioid agreement at [facility], # 84 tablet, 0 Refills, Maintenance, 05/19/23 17:33:00 EST, [facility], Partial fill upon [...] 05/11/23 8:53:00 EST, Route to Pharmacy Electronically, [facility] 163, cm, 05/07/23 16:54:00 EST, Height, 78, kg... Start Date: 05/11/23 Status: Ordered topiramate 25 mg oral capsule 2 capsule = 50 mg, By Mouth, Daily, take 1 cap daily x 2 weeks then 2 caps daily, # 60 capsule, 4 Refills, Maintenance, 03/05/23 16:23:00 EST, Capsule, [facility]., Partial fill upon patient request if the prescription is for a schedule... Start Date: 03/05/23 Status: Ordered traZODone 50 mg oral tablet 1/2 TO 1 TABLET, By Mouth, Daily at bedtime, # 90 tablet, Refills 3, Tot. Refills 3, Maintenance, 04/22/23 20:58:00 EST, Route to Pharmacy Electronically, [facility] 163, cm, 04/03/23 15:11:00 EST, Height, 78, kg, 04/03/23 15:11:00 ES... Start Date: 04/22/23 Stop Date: 04/16/24 Status: Ordered triamcinolone 55 mcg/inh nasal spray 1 sprays = 55 mcg, Nares, Both, Daily, # 3 each, 3 Refills, Maintenance, 03/05/23 16:29:00 EST, [facility]., Partial fill upon patient request if the prescription is for a schedule II opioid drug., 1 sprays Nares, Both Daily, 163, cm, 1... Start Date: 03/05/23 Status: Ordered Trulicity Pen 1.5 mg/0.5 mL subcutaneous solution = 1.5 mg, Subcutaneous Infusion, Every week, # 4 each, 11 Refills, Maintenance, 11/20/22 16:49:00 EDT, [facility], Partial fill upon patient request if the prescription is for a schedule II opioid drug., 163, cm, 11/20/22 16:00:00 EDT,... Start Date: 11/20/22 Status: Ordered Ventolin HFA 108 mcg/inh inhalation aerosol with adapter 2 puffs, Inhalation, 4 times a day, PRN for wheezing, # 1 each, 11 Refills, Maintenance, 05/07/23 17:55:00 EST, Aerosol, [facility], Partial fill upon patient [...] Confirmed Active Panic attacks Confirmed Active N/CP Maker Up Folding Charlene Chung Caren [phone] Confirmed Active Syncope and collapse Confirmed Active Tobacco dependence Confirmed Active DM2 (diabetes mellitus, type 2) Confirmed 04/03/17 Active Incontinence of urine 4 Confirmed Active 1seen on MRI 10/2016, rec repeat imaging in October 2017 pain managemnt team/ Dr Diop indicated they thought pain was fibromyalgia 3seen on CT Abd 09/18/16 at [facility] [place], pending MRI 4urge and stress Social History Social History Type Response Tobacco Other: tobacco 2 - 3 per day (cut down 2 weeks ago). Sex Patient Care team information Care Team Personnel Name: Graciela Thrasher RN Position: [facility] RN Member Role: Primary Care Nurse Name: Stevie Angel RN Position: [facility] RN Member Role: Primary Care Nurse Name: Keily Ortega RN Position: [facility] RN Member Role: Primary Care Nurse Name: Graciela Munroe RN Position: [facility] RN Member Role: Primary Care Nurse Name: Nichole Pichardo RN Position: [facility] RN Member Role: Primary Care Nurse Name: Melvin Whitfield RN Position: [facility] AMB Nurse Member Role: Primary Care Nurse Name: Phuong Berkowitz RN Position: [facility] RN Member Role: Primary Care Nurse Name: Pura Walker MD Position: [facility] Physician - Primary Care Member Role: PCP Address: Address: [address] [place] [address] [place], [place] [address] Name: Joselyn Rain RN Position: [facility] Software Support Technician Member Role: Primary Care Nurse Care Team Related Persons Name: NICK IRA Address: home [address] [place] [address] Name: JHON LARSON Address: [address] [place] [address] Name: JHON LARSON Address: [address] [place] [address] Name: GALO CATALAN Name: NANCY CATALAN Address: home [address] [place] [address]
--- OUTSIDE RECORDS SUMMARY | 2023-12-31 10:52 | XMS_ITS | Continuity of Care Document ---
Author Organization [facility] Address [address] [place] [address]- Care Team Providers Care Valve And Regulator Repairer Name Role Phone Aaron GERARDO, Pura Mahajan Primary Care Physician [facility]): 10[facility]/23 - 11/21/23 [facility] [address] [place] [address]- Allergies, Adverse Reactions, Alerts Substance Reaction Severity [...] influenza virus vaccine, inactivated 02/16/17 Give n [id number] 12y+ bivalent booster vax 01/30/22 Given SARS-CoV-2 mRNA (shlcimw-ludn-rwixf) vax 05/14/21 Given SARS-CoV-2 (COVID-19) mRNA BNT-162b2 [...] 03/05/23 16:21:00 EST, Route to Pharmacy Electronically, [facility], Partial fill upon patient request if the prescription is for a sched... Start Date: 03/05/23 Status: Ordered Advair Diskus 500 mcg-50 mcg inhalation powder 1, inhalation, Inhalation, 2 times a day, rinse mouth and throat after use, # 60 each, Refills 11, Tot. Refills 11, Maintenance, 08/13/23 20:46:00 EDT, Inhaler, Route to Pharmacy Electronically, [id number], [facility]... Start Date: 08/13/23 Status: Ordered All Day Allergy 10 mg oral tablet 1 tablet, By Mouth, Daily, # 90 tablet, 3 Refills, Maintenance, 08/13/23 20:47:00 EDT, [facility] 163, cm, 08/13/23 18:05:00 EDT, Height, 78, kg, 04/03/23 15:11:00 EST, Dry Weight Start Date: 08/13/23 Status: Ordered amLODIPine 10 mg oral tablet 10 mg, 1, tablet, By Mouth, Daily, # 30 tablet, Refills 4, Tot. Refills 4, Maintenance, 08/13/23 19:14:00 EDT, Route to Pharmacy Electronically, [facility], Partial fill upon patient request if the prescription is for a schedule II opi... Start Date: 08/13/23 Status: Ordered atorvastatin 40 mg oral tablet 1 tablet = 40 mg, By Mouth, Daily, # 90 tablet, 3 Refills, Maintenance, 08/13/23 20:46:00 EDT, Tablet, [facility]., Partial fill upon patient request if [...] 5 Refills, Maintenance, 07/08/23 15:30:00 EDT, Tablet, [facility] Partial fill upon patient request [...] Gm, 2 Refills, Maintenance, 05/07/23 17:52:00 EST, [facility] 15, APPLY TOPICALLY TO AFFECTED AREA TWO TIMES A DAY FOR TWO WEEKS, 163, eugenia, ... Start Date: 05/07/23 Status: Ordered diclofenac 1% topical gel 1 application, Topically, 4 times a day, # 100 Gm, 4 Refills, Maintenance, 03/05/23 16:21:00 EST, Gel, [facility] Partial fill upon patient request if the prescription is for a schedule II opioid drug., 163, eugenia, 03/05/23 15:09:00 EST,... Start Date: 03/05/23 Status: Ordered docusate-senna 50 mg-187 mg oral tablet 2 tablet, By Mouth, 2 times a day, PRN Constipation, # 360 tablet, 3 Refills, Maintenance, 03/05/2316:29:00 EST, Tablet, [facility]., Partial fill upon patient request if the prescription is for a schedule II opioid drug., 2 tablet By... Start Date: 03/05/23 Status: Ordered duloxetine 20 mg oral enteric coated capsule 1 capsule, By Mouth, Daily at bedtime, # 30 capsule, 1 Refills, Maintenance, 05/07/23 17:40:00 EST,[facility], 163, cm, 05/07/23 16:54:00 EST, Height, 78, kg, 04/03/23 15:11:00 EST, Dry Weight Start Date: 05/07/23 Status: Ordered empagliflozin 25 mg oral tablet 1 tablet = 25 mg, By Mouth, Daily in AM, # 90 tablet, 1 Refills, Maintenance, 11/06/23 14:33:00 EDT, Tablet, [facility]., Partial fill upon patient request if [...] 1 each, 4 Refills, Maintenance,07/29/23 15:10:00 EDT, [facility], Partial fill upon patient request if the prescription is for a schedule II opioid drug., 1 spray eac... Start Date: 07/29/23 Status: Ordered Lidoderm 5% film 2 patch, Topically, Daily, remove patches after 12 hours; 2 patches to pain areas; can cut patches in half; do not excede 2 patches., # 180 patch, 3 Refills, Maintenance, 08/13/23 19:20:00 EDT, [facility], Partial fill upon patient req... Start Date: 08/13/23 Stop Date: 08/07/24 Status: Ordered lisinopril 20 mg oral tablet 20 mg, 1, tablet, By Mouth, Daily, # 90 tablet, Refills 3, Tot. Refills 3, Maintenance, 08/13/23 20:46:00 EDT, Route to Pharmacy Electronically, [facility], 163, cm, 08/13/23 18:05:00EDT, Height, 78, kg, 04/03/23 15:11:00 EST, Dry Weight Start Date: 08/13/23 Status: Ordered melatonin 10 mg oral tablet 1 tablet = 10 mg, By Mouth, Daily at bedtime, PRN as needed for insomnia, # 90 tablet, 3 Refills, Maintenance, 05/07/23 17:52:00 EST, Tablet, [facility], Partial fill upon patient request if [...] 3 Refills, Maintenance, 04/22/23 20:57:00 EST, [facility] fill upon patient request if the prescription is for a schedule II opioid drug., 163, cm, 04/03/23 15... Start Date: 04/22/23 Status: Ordered Mounjaro 5 mg/0.5 mL subcutaneous solution = 5 mg, Subcutaneous Injection, Every week, rotate injection sites; use Tirzepatide 0.25mg weekly x4 weeks then increase dose, # 4 each, 4 Refills, Maintenance, 10/22/23 20:13:00 EDT, Solution, [facility] Partial fill upon patient re... Start Date: 10/22/23 Status: Ordered Mounjaro 5 mg/0.5 mL subcutaneous solution = 5 mg, Subcutaneous Injection, Every week, d/c dulaglutide, # 4 each, 4 Refills, Maintenance, 09/21/23 13:38:00 EDT, Solution, [facility] Partial fill upon patient request if the prescription is for a schedule II opioid drug., 163, c... Start Date: 09/21/23 Status: Ordered omeprazole 40 mg oral enteric coated capsule 1 capsule, By Mouth, Daily, PRN GERD, # 90 capsule, 3 Refills, Maintenance, 04/22/23 21:00:00 EST, [facility] 163, cm, 04/03/23 15:11:00 EST, Height, 78, kg, 04/03/23 15:11:00 EST, Dry Weight Start Date: 04/22/23 Status: Ordered oxyCODONE 15 mg oral tablet 1 tablet = 15 mg, By Mouth, Every 8 hours, PRN Pain , Severe, MassPat checked. Opioid agreement at [facility], # 84 tablet, 0 Refills, Maintenance, 11/09/23 13:44:00 EDT, [facility] Partial fill upon patient request if [...] 10/09/23 13:08:00 EDT, [facility], 163, cm, 09/14/23 14:23:00 EDT, Height, 78, kg, 04/03/23 15:11:00 E... Start Date: 10/09/23 Status: Ordered topiramate 100 mg oral tablet 1 tablet = 100 mg, By Mouth, Daily, increase dose, # 30 tablet, 4 Refills, Maintenance, 08/13/23 19:21:00 EDT, Tablet, [facility]., Partial fill upon patient request if the prescription is for a schedule II opioid drug., 163, cm, ... Start Date: 08/13/23 Status: Ordered triamcinolone 55 mcg/inh nasal spray 1 sprays = 55 mcg, Nares, Both, Daily, # 3 each, 3 Refills, Maintenance, 03/05/23 16:29:00 EST, [facility] Partial fill upon patient request if the prescription is for a schedule II opioid drug., 1 sprays Nares, Both Daily, 163, cm, 1... 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 Sex Patient Care team information Care Team Personnel Name: Graciela Thrasher RN Position: [facility] RN Member [...] Melvin Whitfield RN Position: [facility] RASHID Nurse Member Role: Primary Care Nurse Name: Phuong Berkowitz RN Position: [facility] RN Member Role: Primary Care Nurse Name: Pura Walker MD Position: [facility] Physician - Primary Care Member Role: PCP Address: Address: [address] [place] [address] [place] [address]- Name: Joselyn Rain RN Position: [facility] Senior Care Provider Member Role: Primary Care Nurse Care Team Related Persons Name: NICK IRA Address: home [address] [place] [address] Name: JHON LARSON Address: [address] [place] [address] Name: JHON LARSON Address: [address] [place] [address] Name: GALO CATALAN Name: NANCY CATALAN Address: home [address] [place] [address]
--- OUTSIDE RECORDS SUMMARY | 2023-12-31 10:53 | XMS_ITS | Continuity of Care Document ---
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.. Start Date: 03/05/23 Status: Ordered Advair Diskus 500 mcg-50 mcg inhalation powder 1, inhalation, Inhalation, 2 times a day, rinse mouth and throat after use, # 60 each, Refills 11, Tot. Refills 11, Maintenance, 09/25/22 17:00:00 EDT, Inhaler, Route to Pharmacy Electronically, [id number], [facility]-... Start Date: 09/25/22 Status: Ordered All Day Allergy 10 mg oral tablet 1 tablet, By Mouth, Daily, # 90 tablet, 3 Refills, Maintenance, 11/20/22 16:48:00 EDT, [facility] 163, cm, 11/20/22 16:00:00 EDT, Height, 83, kg, 02/11/22 19:19:00 EST, Dry Weight Start Date: 11/20/22 Status: Ordered amLODIPine 5 mg oral tablet 5 mg, 1, tablet, By Mouth, Daily, # 90 tablet, Refills 3, Tot. Refills 3, Maintenance, 03/05/23 16:29:00 EST, Route to Pharmacy Electronically, [facility] Partial fill upon patient request if the prescription is for a schedule II opio... Start Date: 03/05/23 Status: Ordered atorvastatin 40 mg oral tablet 1 tablet = 40 mg, By Mouth, Daily, # 90 tablet, 3 Refills, Maintenance, 09/25/22 16:58:00 EDT, Tablet, [facility]., Partial fill upon patient request if [...] Gm, 2 Refills, Maintenance, 05/07/23 17:52:00 EST, [facility] 15, APPLY TOPICALLY TO AFFECTED AREA [...] 3 Refills, Maintenance, 09/25/22 17:01:00 EDT, Tablet, [facility]., Partial fill upon patient request if the prescription is for aschedule II opioid drug., 163, cm, 09/25/22 16:20:0... Start Date: 09/25/22 Status: Ordered ibuprofen 800 mg oral tablet 1, tablet, By Mouth, 3 times a day, PRN, # 90 tablet, Refills 0, Maintenance, NEEDED FOR PAIN, 05/07/23 17:40:00 EST, [facility], 163, cm, 05/07/23 16:54:00 EST, Height, 78, kg, 04/03/23 15:11:00 EST, Dry... Start Date: 05/07/23 Status: Ordered lidocaine 5% topical film 1 patch, Topically, Daily, PRN Pain , Mild, remove after 12 hours, # 13 each, 5 Refills, Maintenance, 09/25/22 16:59:00 EDT, Film, [facility]., Partial fill upon patient request if theprescription is for a schedule II opioid drug., 1 p... Start Date: 09/25/22 Status: Ordered Lidoderm 5% film 2 patch, Topically, Daily, remove patches after 12 hours; 2 patches to pain areas; can cut patches in half; do not excede 2 patches., # 60 patch, 4 Refills, Maintenance, 03/05/23 16:22:00 EST, [facility]., Partial fill upon patient requ... Start Date: 03/05/23 Stop Date: 08/02/23 Status: Ordered lisinopril 20 mg oral tablet 20 mg, 1, tablet, By Mouth, Daily, # 90 tablet, Refills 3, Tot. Refills 3, Maintenance, 11/20/22 16:48:00 EDT, Route to Pharmacy Electronically, [facility]., 163, cm, 11/20/22 16:00:00EDT, Height, 83, kg, 02/11/22 19:19:00 EST, Dry Weight Start Date: 11/20/22 Status: Ordered melatonin 10 mg oral tablet 1 tablet = 10 mg, By Mouth, Daily at bedtime, PRN as needed for insomnia, # 90 tablet, 3 Refills, Maintenance, 05/07/23 17:52:00 EST, Tablet, [facility], Partial fill upon patient request if [...] 3 Refills, Maintenance, 04/22/23 20:57:00 EST, Tablet, [facility]., Partial fill upon patient request if the prescription is for a schedule II opioid drug., 163, cm, 04/03/23 15... Start Date: 04/22/23 Status: Ordered omeprazole 40 mg oral enteric coated capsule 1 capsule, By Mouth, Daily, PRN GERD, # 90 capsule, 3 Refills, Maintenance, 04/22/23 21:00:00 EST, [facility]., 163, cm, 04/03/23 15:11:00 EST, Height, 78, kg, 04/03/23 15:11:00 EST, Dry Weight Start Date: 04/22/23 Status: Ordered oxyCODONE 15 mg oral tablet 1 tablet = 15 mg, By Mouth, Every 8 hours, PRN Pain , Severe, MassPat checked. Opioid agreement at [facility], # 84 tablet, 0 Refills, Maintenance, 04/16/23 21:28:00 EST, [facility]/pharmacy #[id number], Partial fill upon patient request [...] 05/11/23 8:53:00 EST, Route to Pharmacy Electronically, [facility], 163, cm, 05/07/23 16:54:00 EST, Height, 78, kg... Start Date: 05/11/23 Status: Ordered topiramate 25 mg oral capsule 2 capsule = 50 mg, By Mouth, Daily, take 1 cap daily x 2 weeks then 2 caps daily, # 60 capsule, 4 Refills, Maintenance, 03/05/23 16:23:00 EST, Capsule, [facility]., Partial fill upon patient request if the prescription is for a schedule... Start Date: 03/05/23 Status: Ordered traZODone 50 mg oral tablet 1/2 TO 1 TABLET, By Mouth, Daily at bedtime, # 90 tablet, Refills 3, Tot. Refills 3, Maintenance, 04/22/23 20:58:00 EST, Route to Pharmacy Electronically, [facility] 163, cm, 04/03/23 15:11:00 EST, Height, 78, kg, 04/03/23 15:11:00 ES... Start Date: 04/22/23 Stop Date: 04/16/24 Status: Ordered triamcinolone 55 mcg/inh nasal spray 1 sprays = 55 mcg, Nares, Both, Daily, # 3 each, 3 Refills, Maintenance, 03/05/23 16:29:00 EST, [facility] Partial fill upon patient request if the prescription is for a schedule II opioid drug., 1 sprays Nares, Both Daily, 163, cm, 1... Start Date: 03/05/23 Status: Ordered Trulicity Pen 1.5 mg/0.5 mL subcutaneous solution = 1.5 mg, Subcutaneous Infusion, Every week, # 4 each, 11 Refills, Maintenance, 11/20/22 16:49:00 EDT, [facility]., Partial fill upon patient request if the prescription is for a schedule II opioid drug., 163, cm, 11/20/22 16:00:00 EDT,... Start Date: 11/20/22 Status: Ordered Ventolin HFA 108 mcg/inh inhalation aerosol with adapter 2 puffs, Inhalation, 4 times a day, PRN for wheezing, # 1 each, 11 Refills, Maintenance, 05/07/23 17:55:00 EST, Aerosol, [facility]., Partial fill upon patient request if [...] Confirmed Active Panic attacks Confirmed Active BHN/BHCP Production Supv Charlene Fabian [phone] Confirmed Active Syncope and collapse Confirmed Active Tobacco dependence Confirmed Active DM2 (diabetes mellitus, type 2) Confirmed 04/03/17 Active Incontinence of urine 4 Confirmed Active 1seen on MRI 10/2016, rec repeat imaging in October 2017 pain managemnt team/ Dr Diop indicated they thought pain was fibromyalgia 3seen on CT Abd 09/18/16 at [facility] [place], pending MRI 4urge and stress Social History Social History Type Response Tobacco Other: tobacco 2 - 3 per day (cut down 2 weeks ago). Sex Patient Care team information Care Team Personnel Name: Graciela Thrasher RN Position: [facility] RN Member Role: Primary Care Nurse Name: Stevie Angel RN Position: [facility] RN Member Role: Primary Care Nurse Name: Keily Ortega RN Position: [facility] RN Member Role: Primary Care Nurse Name: Graciela Munroe RN Position: [facility] RN Member Role: Primary Care Nurse Name: Nichole Pichardo RN Position: [facility] RN Member Role: Primary Care Nurse Name: Melvin Whitfield RN Position: [facility] AMB Nurse Member Role: Primary Care Nurse Name: Phuong Berkowitz RN Position: [facility] RN Member Role: Primary Care Nurse Name: Pura Walker MD Position: [facility] Physician - Primary Care Member Role: PCP Address: Address: [address] [place] [id number] Name: Joselyn Rain RN Position: [facility] Hospital Stonecutter Assistant Member Role: Primary Care Nurse Care Team Related Persons Name: IRA ROMERO Address: home [address] [place] [address] Name: JHON ALRSON Address: [address] [place] [address] Name: JHON LARSON Address: [address] [place] [address] Name: GALO CATALAN Name: NANCY CATALAN Address: home [address] [place] [address]
--- OUTSIDE RECORDS SUMMARY | 2023-12-31 10:53 | XMS_ITS | Continuity of Care Document ---
Author Organization [facility] Address [address] [place] [address]- Care Team Providers Care Talk Show Host Name Role Phone Aaron GERARDO, Pura Mahajan Primary Care Physician [phone] [facility]counter [facility] 07[facility]17[facility]23 - 08/16/23 [facility] [address] [place], [place] [phone] Allergies, Adverse Reactions, Alerts Substance Reaction Severity [...] influenza virus vaccine, inactivated 02/16/17 Give n [id number] 12y+ bivalent booster vax 01/30/22 Given SARS-CoV-2 mRNA (napcekc-uygv-shmop) vax 05/14/21 Given SARS-CoV-2 (COVID-19) mRNA BNT-162b2 [...] 03/05/23 16:21:00 EST, Route to Pharmacy Electronically, [facility], Partial fill upon patient request if the prescription is for a sched... Start Date: 03/05/23 Status: Ordered Advair Diskus 500 mcg-50 mcg inhalation powder 1, inhalation, Inhalation, 2 times a day, rinse mouth and throat after use, # 60 each, Refills 11, Tot. Refills 11, Maintenance, 08/13/23 20:46:00 EDT, Inhaler, Route to Pharmacy Electronically, [id number], [facility]... Start Date: 08/13/23 Status: Ordered [...] 08/13/23 19:14:00 EDT, Route to Pharmacy Electronically, [facility] Partial fill upon patient [...] 30 capsule, 1 Refills, Maintenance, 05/07/23 17:40:00 EST,[facility], 163, cm, 05/07/23 16:54:00 EST, Height, 78, kg, 04/03/23 15:11:00 EST, Dry Weight Start Date: 05/07/23 Status: Ordered empagliflozin 10 mg oral tablet 1 tablet = 10 mg, By Mouth, Daily in AM, # 90 tablet, 3 Refills, Maintenance, 08/13/23 20:46:00 EDT, Tablet, [facility], Partial fill upon patient [...] 1 each, 4 Refills, Maintenance,07/29/23 15:10:00 EDT, [facility], Partial fill upon patient request if the prescription is for a schedule II opioid drug., 1 spray eac... Start Date: 07/29/23 Status: Ordered Lidoderm 5% film 2 patch, Topically, Daily, remove patches after 12 hours; 2 patches to pain areas; can cut patches in half; do not excede 2 patches., # 180 patch, 3 Refills, Maintenance, 08/13/23 19:20:00 EDT, [facility], Partial fill upon patient req... Start [...] 3 Refills, Maintenance, 05/07/23 17:52:00 EST, Tablet, [facility], Partial fill upon patient [...] 3 Refills, Maintenance, 04/22/23 20:57:00 EST, Tablet, [facility] Partial fill [...] 0 Refills, Maintenance, 08/13/23 19:13:00 EDT, Solution, [facility] Partial fill upon patient... Start Date: 08/13/23 Status: Ordered Mounjaro 5 mg/0.5 mL subcutaneous solution = 5 mg, Subcutaneous Injection, Every week, rotate injection sites; use Tirzepatide 0.25mg weekly x4 weeks then increase dose, # 4 each, 0 Refills, Maintenance, 08/13/23 19:14:00 EDT, Solution, [facility] Partial fill upon patient re... Start Date: 08/13/23 Status: Ordered omeprazole 40 mg oral enteric coated capsule 1 capsule, By Mouth, Daily, PRN GERD, # 90 capsule, 3 Refills, Maintenance, 04/22/23 21:00:00 EST, [facility] 163, cm, 04/03/23 15:11:00 EST, Height, 78, kg, 04/03/23 15:11:00 EST, Dry Weight Start Date: 04/22/23 Status: Ordered oxyCODONE 15 mg oral tablet 1 tablet = 15 mg, By Mouth, Every 8 hours, PRN Pain , Severe, MassPat checked. Opioid agreement at [facility], # 84 tablet, 0 Refills, Maintenance, 08/13/23 19:24:00 EDT, [facility]., Partial fill upon [...] 05/11/23 8:53:00 EST, Route to Pharmacy Electronically, [facility] 163, cm, 05/07/23 16:54:00 EST, Height, [...] each, 11 Refills, Maintenance, 08/14/23 12:21:00 EDT, [facility]., Partial fill upon patient request if the prescription is for a schedule II opioid drug., 163, cm, 08/13/23 18:05:00 EDT,... Start Date: 08/14/23 Status: Ordered Ventolin HFA 108 mcg/inh inhalation aerosol with adapter 2 puffs, Inhalation, 4 times a day, PRN for wheezing, # 1 each, 11 Refills, Maintenance, 05/07/23 17:55:00 EST, Aerosol, 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 [phone] Confirmed Active Perianal abscess Confirmed Active Syncope and collapse Confirmed Active Tobacco dependence Confirmed Active DM2 (diabetes mellitus, type 2) Confirmed 04/03/17 Active Incontinence of urine 4 Confirmed Active 1seen on MRI 10/2016, rec repeat imaging in October 2017 pain managemnt team/ Dr Diop indicated they thought pain was fibromyalgia 3seen on CT Abd 09/18/16 at [facility] [place], pending MRI 4urge and stress [...] Care Nurse Name: Melvin Whitfield RN Position: [facility] AMB Nurse Member Role: Primary Care Nurse Name: Phuong Berkowitz RN Position: [facility] RN Member Role: Primary Care Nurse Name: Pura Walker MD Position: [facility] Physician - Primary Care Member Role: PCP Address: Address: [address] [place] [id number] Name: Joselyn Rain RN Position: [facility] Best Worker Member Role: Primary Care Nurse Care Team Related Persons Name: IRA ROMERO Address: home [address] [place] [address] Name: JHON LARSON Address: [address] [place] [address] Name: JHON LARSON Address: [address] [place] [address] Name: GALO CATALAN Name: NANCY CATALAN Address: home [address] [place] [address]
--- OUTSIDE RECORDS SUMMARY | 2023-12-31 10:53 | XMS_ITS | Continuity of Care Document ---
Author Organization [facility] Address [address] [place] [address]- Care Team Providers Care Wrapping Machine Tender Name Role Phone Aaron GERARDO, Pura Mahajan Primary Care Physician [facility] Date(s): 11/09/23 - 12/09/23 [facility] [address] [place], [place] [phone] Allergies, Adverse Reactions, Alerts Substance Reaction Severity [...] influenza virus vaccine, inactivated 02/16/17 Give n [id number] 12y+ bivalent booster vax 01/30/22 Given SARS-CoV-2 mRNA ([id number]) vax 05/14/21 Given SARS-CoV-2 (COVID-19) mRNA BNT-162b2 [...] 16:21:00 EST, Route to Pharmacy Electronically, [facility], Partial fill upon patient request if the prescription is for a sched... Start Date: 03/05/23 Status: Ordered Advair Diskus 500 mcg-50 mcg inhalation powder 1, inhalation, Inhalation, 2 times a day, rinse mouth and throat after use, # 60 each, Refills 11, Tot. Refills 11, Maintenance, 08/13/23 20:46:00 EDT, Inhaler, Route to Pharmacy Electronically, [id number], [facility]-... Start Date: 08/13/23 Status: Ordered All Day Allergy 10 mg oral tablet 1 tablet, By Mouth, Daily, # 90 tablet, 3 Refills, Maintenance, 08/13/23 20:47:00 EDT, [facility] 163, cm, 08/13/23 18:05:00 EDT, Height, 78, kg, 04/03/23 15:11:00 EST, Dry Weight Start Date: 08/13/23 Status: Ordered amLODIPine 10 mg oral tablet 10 mg, 1, tablet, By Mouth, Daily, # 30 tablet, Refills 4, Tot. Refills 4, Maintenance, 08/13/23 19:14:00 EDT, Route to Pharmacy Electronically, [facility], Partial fill upon patient request if the prescription is for a schedule II opi... Start Date: 08/13/23 Status: Ordered atorvastatin 40 mg oral tablet 1 tablet = 40 mg, By Mouth, Daily, # 90 tablet, 3 Refills, Maintenance, 08/13/23 20:46:00 EDT, Tablet, [facility]., Partial fill upon [...] 5 Refills, Maintenance, 07/08/23 15:30:00 EDT, Tablet, [facility]., Partial fill upon [...] Gm, 2 Refills, Maintenance, 05/07/23 17:52:00 EST, [facility] 15, APPLY TOPICALLY TO AFFECTED AREA TWO TIMES A DAY FOR TWO WEEKS, 163, [place], ... Start Date: 05/07/23 Status: Ordered diclofenac 1% topical gel 1 application, Topically, 4 times a day, # 100 Gm, 4 Refills, Maintenance, 03/05/23 16:21:00 EST, Gel, [facility] Partial fill upon patient request if the prescription is for a schedule II opioid drug., 163, [place], 03/05/23 15:09:00 EST,... Start Date: 03/05/23 Status: Ordered docusate-senna 50 mg-187 mg oral tablet 2 tablet, By Mouth, 2 times a day, PRN Constipation, # 360 tablet, 3 Refills, Maintenance, 03/05/2316:29:00 EST, Tablet, [facility]., Partial fill upon patient request if the prescription is for a schedule II opioid drug., 2 tablet By... Start Date: 03/05/23 Status: Ordered duloxetine 20 mg oral enteric coated capsule 1 capsule, By Mouth, Daily at bedtime, # 30 capsule, 1 Refills, Maintenance, 05/07/23 17:40:00 EST[facility], [facility], cm, 05/07/23 16:54:00 EST, Height, 78, kg, 04/03/23 15:11:00 EST, Dry Weight Start Date: 05/07/23 Status: Ordered empagliflozin 25 mg oral tablet 1 tablet = 25 mg, By Mouth, Daily in AM, # 90 tablet, 1 Refills, Maintenance, 11/06/23 14:33:00 EDT, Tablet, [facility], Partial fill [...] each, 4 Refills, Maintenance,07/29/23 15:10:00 EDT, [facility], Partial fill upon [...] 3 Refills, Maintenance, 08/13/23 19:20:00 EDT, [facility], Partial fill upon patient req... Start Date: 08/13/23 Stop Date: 08/07/24 Status: Ordered lisinopril 20 mg oral tablet 20 mg, 1, tablet, By Mouth, Daily, # 90 tablet, Refills 3, Tot. Refills 3, Maintenance, 08/13/23 20:46:00 EDT, Route to Pharmacy Electronically, [facility]., 163, cm, 08/13/23 18:05:00EDT, Height, 78, kg, 04/03/23 15:11:00 EST, Dry Weight Start Date: 08/13/23 Status: Ordered melatonin 10 mg oral tablet 1 tablet = 10 mg, By Mouth, Daily at bedtime, PRN as needed for insomnia, # 90 tablet, 3 Refills, Maintenance, 05/07/23 17:52:00 EST, Tablet, [facility], Partial fill upon [...] 4 Refills, Maintenance, 10/22/23 20:13:00 EDT, Solution, [facility]., Partial fill upon patient re... Start Date: 10/22/23 Status: Ordered Mounjaro 5 mg/0.5 mL subcutaneous solution = 5 mg, Subcutaneous Injection, Every week, d/c dulaglutide, # 4 each, 4 Refills, Maintenance, 09/21/23 13:38:00 EDT, Solution, [facility]., Partial fill upon patient request if the prescription is for a schedule II opioid drug., 163, c... Start Date: 09/21/23 Status: Ordered omeprazole 40 mg oral enteric coated capsule 1 capsule, By Mouth, Daily, PRN GERD, # 90 capsule, 3 Refills, Maintenance, 04/22/23 21:00:00 EST, [facility] 163, cm, 04/03/23 15:11:00 EST, Height, 78, kg, 04/03/23 15:11:00 EST, Dry Weight Start Date: 04/22/23 Status: Ordered oxyCODONE 15 mg oral tablet 1 tablet = 15 mg, By Mouth, Every 8 hours, PRN Pain , Severe, [facility] checked. Opioid agreement at [facility], # 84 tablet, 0 Refills, Maintenance, 12/08/23 13:52:00 EDT, [facility]., Partial fill upon patient [...] 10/09/23 13:08:00 EDT, Route to Pharmacy Electronically, [facility], 163, cm, 09/14/23 14:23:00 EDT, Height, 78, kg, 04/03/23 15:11:00 E... 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 Sex Patient Care team information Care Team Personnel Name: Graciela Thrasher RN Position: [facility] RN Member [...] Primary Care Member Role: PCP Address: Address: [address] [place] [address] [place] [address]- Name: Joselyn Rain RN Position: [facility] Slope Tender Member Role: Primary Care Nurse Care Team Related Persons Name: IRA ROMERO Address: home [address] [place] [address] Name: JHON LARSON Address: home [address] [place] [address] Name: JHON LARSON Address: home [address] [place] [address] Name: GALO CATALAN Name: NANCY CATALAN Address: home [address] [place] [address]
--- OUTSIDE RECORDS SUMMARY | 2023-12-31 10:54 | XMS_ITS | Continuity of Care Document ---
Author Organization [facility] Address [address] [place] [id number]- Care Team Providers Care Facilities Technician Name Role Phone Aaron GERARDO, Pura Mahajan Primary Care Physician [facility]counter [facility] Date[facility]s): 10/[facility]/23 - 11/05/[address] [address]- Allergies, Adverse Reactions, Alerts Substance Reaction Severity [...] influenza virus vaccine, inactivated 02/16/17 Give n [id number] 12y+ bivalent booster vax 01/30/22 Given SARS-CoV-2 mRNA ([id number]) vax 05/14/21 Given SARS-CoV-2 (COVID-19) mRNA BNT-162b2 [...] 16:21:00 EST, [facility], [facility] [...] 20:46:00 EDT, Inhaler, Route to Pharmacy Electronically, [id number], [facility]-... Start Date: 08/13/23 Status: Ordered All Day Allergy 10 mg oral tablet 1 tablet, By Mouth, Daily, # 90 tablet, 3 Refills, Maintenance, 08/13/23 20:47:00 EDT, [facility]., 163, cm, 08/13/23 18:05:00 EDT, Height, 78, kg, 04/03/23 15:11:00 EST, Dry Weight Start Date: 08/13/23 Status: Ordered amLODIPine 10 mg oral tablet 10 mg, 1, tablet, By Mouth, Daily, # 30 tablet, Refills 4, Tot. Refills 4, Maintenance, 08/13/23 19:14:00 EDT, Route to Pharmacy Electronically, [facility]., Partial fill upon patient request if the prescription is for a schedule II opi... Start Date: 08/13/23 Status: Ordered atorvastatin 40 mg oral tablet 1 tablet = 40 mg, By Mouth, Daily, # 90 tablet, 3 Refills, Maintenance, 08/13/23 20:46:00 EDT, Tablet, [facility]., Partial fill upon [...] 5 Refills, Maintenance, 07/08/23 15:30:00 EDT, Tablet, [facility] Partial fill [...] Gm, 2 Refills, Maintenance, 05/07/23 17:52:00 EST, [facility] 15, APPLY TOPICALLY TO AFFECTED AREA TWO TIMES A DAY FOR TWO WEEKS, [place], ... Start Date: 05/07/23 Status: Ordered diclofenac 1% topical gel 1 application, Topically, 4 times a day, # 100 Gm, 4 Refills, Maintenance, 03/05/23 16:21:00 EST, Gel, [facility] Partial fill upon patient request if the prescription is for a schedule II opioid drug., [place], 03/05/23 15:09:00 EST,... Start Date: 03/05/23 Status: Ordered docusate-senna 50 mg-187 mg oral tablet 2 tablet, By Mouth, 2 times a day, PRN Constipation, # 360 tablet, 3 Refills, Maintenance, 03/05/2316:29:00 EST, Tablet, [facility]., Partial fill upon patient request if the prescription is for a schedule II opioid drug., 2 tablet By... Start Date: 03/05/23 Status: Ordered duloxetine 20 mg oral enteric coated capsule 1 capsule, By Mouth, Daily at bedtime, # 30 capsule, 1 Refills, Maintenance, 05/07/23 17:40:00 EST,[facility], 163, cm, 05/07/23 16:54:00 EST, Height, 78, kg, 04/03/23 15:11:00 EST, Dry Weight Start Date: 05/07/23 Status: Ordered empagliflozin 10 mg oral tablet 1 tablet = 10 mg, By Mouth, Daily in AM, # 90 tablet, 3 Refills, Maintenance, 08/13/23 20:46:00 EDT, Tablet, [facility], [...] 1 each, 4 Refills, Maintenance,07/29/23 15:10:00 EDT, [facility], Partial [...] patch, 3 Refills, Maintenance, 08/13/23 19:20:00 EDT, [facility], Partial fill upon patient req... Start Date: 08/13/23 Stop Date: 08/07/24 Status: Ordered lisinopril 20 mg oral tablet 20 mg, 1, tablet, By Mouth, Daily, # 90 tablet, Refills 3, Tot. Refills 3, Maintenance, 08/13/23 20:46:00 EDT, Route to Pharmacy Electronically, [facility] 163, cm, 08/13/23 18:05:00EDT, Height, 78, kg, 04/03/23 15:11:00 EST, Dry Weight Start Date: 08/13/23 Status: Ordered melatonin 10 mg oral tablet 1 tablet = 10 mg, By Mouth, Daily at bedtime, PRN as needed for insomnia, # 90 tablet, 3 Refills, Maintenance, 05/07/23 17:52:00 EST, Tablet, [facility], Partial [...] 3 Refills, Maintenance, 04/22/23 20:57:00 EST, Tablet, [facility] Partial fill upon patient request if the prescription is for a schedule II opioid drug., 163, cm, 04/03/23 15... Start Date: 04/22/23 Status: Ordered Mounjaro 2.5 mg/0.5 mL subcutaneous solution = 2.5 mg, Subcutaneous Injection, Every week, rotate injection sites; use Tirzepatide 0.25mg weeklyx 4 weeks then increase dose, # 4 each, 0 Refills, Maintenance, 08/13/23 19:13:00 EDT, Solution, [facility] Partial fill upon patient... Start Date: 08/13/23 Status: Ordered Mounjaro 5 mg/0.5 mL subcutaneous solution = 5 mg, Subcutaneous Injection, Every week, rotate injection sites; use Tirzepatide 0.25mg weekly x4 weeks then increase dose, # 4 each, 4 Refills, Maintenance, 10/22/23 20:13:00 EDT, Solution, [facility] Partial fill upon patient re... Start Date: 10/22/23 Status: Ordered Mounjaro 5 mg/0.5 mL subcutaneous solution = 5 mg, Subcutaneous Injection, Every week, d/c dulaglutide, # 4 each, 4 Refills, Maintenance, 09/21/23 13:38:00 EDT, Solution, [facility] Partial fill upon patient request if the prescription is for a schedule II opioid drug., 163, c... Start Date: 09/21/23 Status: Ordered omeprazole 40 mg oral enteric coated capsule 1 capsule, By Mouth, Daily, PRN GERD, # 90 capsule, 3 Refills, Maintenance, 04/22/23 21:00:00 EST, [facility] 163, cm, 04/03/23 15:11:00 EST, Height, 78, kg, 04/03/23 15:11:00 EST, Dry Weight Start Date: 04/22/23 Status: Ordered oxyCODONE 15 mg oral tablet 1 tablet = 15 mg, By Mouth, Every 8 hours, PRN Pain , Severe, [employer] checked. Opioid agreement at [facility], # 84 tablet, 0 Refills, Maintenance, 10/09/23 15:23:00 EDT, [facility], Partial fill upon patient request if the prescription is... Start Date: 10/09/23 Stop Date: 11/06/23 Status: Ordered prazosin 2 mg oral capsule via psychiatry A [facility], 0 Refills, Maintenance, 01/19/23 21:19:00 EDT, Partial fill upon patient request if the prescription is for a schedule II opioid drug. Start Date: 01/19/23 Status: Ordered tiZANidine 4 mg oral tablet 1, tablet, By Mouth, 3 times a day, PRN, # 90 tablet, Refills 3, Maintenance, NEEDED FOR SEVERE PAIN, 10/09/23 13:08:00 EDT, Route to Pharmacy Electronically, [facility], 163, cm, 09/14/23 14:23:00 EDT, Height, 78, kg, 04/03/23 15:11:00 E... Start Date: 10/09/23 Status: Ordered topiramate 100 mg oral tablet 1 tablet = 100 mg, By Mouth, Daily, increase dose, # 30 tablet, 4 Refills, Maintenance, 08/13/23 19:21:00 EDT, Tablet, [facility], Partial fill upon patient request if the prescription is for a schedule II opioid drug., 163, cm, ... Start Date: 08/13/23 Status: Ordered triamcinolone 55 mcg/inh nasal spray 1 sprays = 55 mcg, Nares, Both, Daily, # 3 each, 3 Refills, Maintenance, 03/05/23 16:29:00 EST, [facility] Partial fill upon patient request if the prescription is for a schedule II opioid drug., 1 sprays Nares, Both Daily, 163, cm, 1... Start Date: 03/05/23 Status: Ordered Trulicity Pen 1.5 mg/0.5 mL subcutaneous solution = 1.5 mg, Subcutaneous Infusion, Every week, # 4 each, 11 Refills, Maintenance, 08/14/23 12:21:00 EDT, [facility] Partial fill upon patient request if the prescription is for a schedule II opioid drug., 163, cm, 08/13/23 18:05:00 EDT,... Start Date: 08/14/23 Status: Ordered Ventolin HFA 108 mcg/inh inhalation aerosol with adapter 2 puffs, Inhalation, 4 times a day, PRN for wheezing, # 1 each, 11 Refills, Maintenance, 05/07/23 17:55:00 EST, Aerosol, [facility]., Partial fill upon patient request [...] Confirmed Active Panic attacks Confirmed Active BHN/BHCP Psychology Tech Charlene Fabian [phone] Confirmed Active Perianal abscess Confirmed Active Syncope and collapse Confirmed Active Tobacco dependence Confirmed Active DM2 (diabetes mellitus, type 2) Confirmed 04/03/17 Active Incontinence of urine 4 Confirmed Active 1seen on MRI 10/2016, rec repeat imaging in October 2017 pain managemnt team/ Dr Diop indicated they thought pain was fibromyalgia 3seen on CT Abd 09/18/16 at [facility], pending MRI 4urge and stress Social History Social History Type Response Tobacco Other: Quit 07/2023. Sex Patient Care team information Care Team Personnel Name: Graciela Thrasher RN Position: [facility] SN RN Member Role: Primary Care Nurse Name: Stevie Angel RN Position: [facility] RN Member Role: Primary Care Nurse Name: Keily Ortega RN Position: [facility] RN Member Role: Primary Care Nurse Name: Graciela Munroe RN Position: [facility] RN Member Role: Primary Care Nurse Name: Nichole Pichardo RN Position: [facility] RN Member Role: Primary Care Nurse Name: Melvin Whitfield RN Position: [facility] AMB Nurse Member Role: Primary Care Nurse Name: Phuong Berkowitz RN Position: [facility] RN Member Role: Primary Care Nurse Name: Pura Walker MD Position: [facility] Physician - Primary Care Member Role: PCP Address: Address: [address] [place] [id number] Name: Joselyn Rain RN Position: [facility] Hospital Clinical Advisor Member Role: Primary Care Nurse Care Team Related Persons Name: IRA ROMERO Address: home [address] [place] [address] Name: JHON LARSON Address: [address] [place] [address] Name: JHON LARSON Address: home [address] [place] [address] Name: GALO CATALAN Name: NANCY CATALAN Address: home [address] [place] [address]
--- OUTSIDE RECORDS SUMMARY | 2023-12-31 10:55 | XMS_ITS | Continuity of Care Document ---
Author Organization [facility] Address [address] [place] [address]- Care Team Providers Care Glass Melt Operator Name Role Phone Aaron GERARDO, Pura Mahajan Primary Care Physician [facility] Date[facility]): 07/06/23 - 08/05/23 [facility] [address] [place], [place] [phone] Allergies, Adverse Reactions, Alerts Substance Reaction Severity [...] influenza virus vaccine, inactivated 02/16/17 Give n [id number] 12y+ bivalent booster vax 01/30/22 Given SARS-CoV-2 mRNA ([id number]) vax 05/14/21 Given SARS-CoV-2 (COVID-19) mRNA BNT-162b2 [...] 03/05/23 16:21:00 EST, Route to Pharmacy Electronically, [facility], Partial fill upon patient request if the prescription is for a sched... Start Date: 03/05/23 Status: Ordered Advair Diskus 500 mcg-50 mcg inhalation powder 1, inhalation, Inhalation, 2 times a day, rinse mouth and throat after use, # 60 each, Refills 11, Tot. Refills 11, Maintenance, 09/25/22 17:00:00 EDT, Inhaler, Route to Pharmacy Electronically, [id number], [facility]-... Start Date: 09/25/22 Status: Ordered All Day Allergy 10 mg oral tablet 1 tablet, By Mouth, Daily, # 90 tablet, 3 Refills, Maintenance, 11/20/22 16:48:00 EDT, [facility]., 163, cm, 11/20/22 16:00:00 EDT, Height, 83, kg, 02/11/22 19:19:00 EST, Dry Weight Start Date: 11/20/22 Status: Ordered amLODIPine 5 mg oral tablet 5 mg, 1, tablet, By Mouth, Daily, # 90 tablet, Refills 3, Tot. Refills 3, Maintenance, 03/05/23 16:29:00 EST, Route to Pharmacy Electronically, [facility]., Partial fill upon patient request if the prescription is for a schedule II opio... Start Date: 03/05/23 Status: Ordered atorvastatin 40 mg oral tablet 1 tablet = 40 mg, By Mouth, Daily, # 90 tablet, 3 Refills, Maintenance, 09/25/22 16:58:00 EDT, Tablet, [facility]., Partial fill upon patient request [...] 5 Refills, Maintenance, 07/08/23 15:30:00 EDT, Tablet, [facility]., Partial fill upon patient request [...] Gm, 2 Refills, Maintenance, 05/07/23 17:52:00 EST, [facility] 15, APPLY TOPICALLY TO AFFECTED AREA TWO TIMES A DAY FOR TWO WEEKS, [address], ... Start Date: 05/07/23 Status: Ordered diclofenac 1% topical gel 1 application, Topically, 4 times a day, # 100 Gm, 4 Refills, Maintenance, 03/05/23 16:21:00 EST, Gel, [facility] Partial fill upon patient request if the prescription is for a schedule II opioid drug., [address], 03/05/23 15:09:00 EST,... Start Date: 03/05/23 Status: Ordered docusate-senna 50 mg-187 mg oral tablet 2 tablet, By Mouth, 2 times a day, PRN Constipation, # 360 tablet, 3 Refills, Maintenance, 03/05/2316:29:00 EST, Tablet, [facility]., Partial fill upon patient request if the prescription is for a schedule II opioid drug., 2 tablet By... Start Date: 03/05/23 Status: Ordered duloxetine 20 mg oral enteric coated capsule 1 capsule, By Mouth, Daily at bedtime, # 30 capsule, 1 Refills, Maintenance, 05/07/23 17:40:00 EST[facility], cm, 05/07/23 16:54:00 EST, Height, [...] 3 Refills, Maintenance, 09/25/22 17:01:00 EDT, Tablet, [facility]., Partial fill upon patient request if the prescription is for aschedule II opioid drug., 163, cm, 09/25/22 16:20:0... Start Date: 09/25/22 Status: Ordered ibuprofen 800 mg oral tablet 1, tablet, By Mouth, 3 times a day, PRN, # 90 tablet, Refills 0, Maintenance, NEEDED FOR PAIN, 05/07/23 17:40:00 EST, [facility], cm, 05/07/23 16:54:00 EST, Height, 78, kg, 04/03/23 15:11:00 EST, Dry... Start Date: 05/07/23 Status: Ordered ipratropium nasal 21 mcg/inh spray See Instructions, PRN Nasal Congestion, 1 spray each nostril BID, # 1 each, 4 Refills, Maintenance,07/29/23 15:10:00 EDT, [facility], Partial fill upon patient request if the prescription is for a schedule II opioid drug., 1 spray eac... Start Date: 07/29/23 Status: Ordered lidocaine 5% topical film 1 patch, Topically, Daily, PRN Pain , Mild, remove after 12 hours, # 13 each, 5 Refills, Maintenance, 09/25/22 16:59:00 EDT, Film, [facility], Partial fill upon patient request if theprescription is for a schedule II opioid drug., 1 p... Start Date: 09/25/22 Status: Ordered Lidoderm 5% film 2 patch, Topically, Daily, remove patches after 12 hours; 2 patches to pain areas; can cut patches in half; do not excede 2 patches., # 60 patch, 4 Refills, Maintenance, 03/05/23 16:22:00 EST, [facility], Partial fill upon patient requ... Start Date: 03/05/23 Stop Date: 08/02/23 Status: Ordered lisinopril 20 mg oral tablet 20 mg, 1, tablet, By Mouth, Daily, # 90 tablet, Refills 3, Tot. Refills 3, Maintenance, 11/20/22 16:48:00 EDT, Route to Pharmacy Electronically, [facility], 163, cm, 11/20/22 16:00:00EDT, Height, 83, kg, 02/11/22 19:19:00 EST, Dry Weight Start Date: 11/20/22 Status: Ordered melatonin 10 mg oral tablet 1 tablet = 10 mg, By Mouth, Daily at bedtime, PRN as needed for insomnia, # 90 tablet, 3 Refills, Maintenance, 05/07/23 17:52:00 EST, Tablet, [facility], Partial fill upon patient request if [...] 3 Refills, Maintenance, 04/22/23 20:57:00 EST, Tablet, [facility]., Partial fill upon patient request if the prescription is for a schedule II opioid drug., 163, cm, 04/03/23 15... Start Date: 04/22/23 Status: Ordered omeprazole 40 mg oral enteric coated capsule 1 capsule, By Mouth, Daily, PRN GERD, # 90 capsule, 3 Refills, Maintenance, 04/22/23 21:00:00 EST, [facility]., 163, cm, 04/03/23 15:11:00 EST, Height, 78, kg, 04/03/23 15:11:00 EST, Dry Weight Start Date: 04/22/23 Status: Ordered oxyCODONE 15 mg oral tablet 1 tablet = 15 mg, By Mouth, Every 8 hours, PRN Pain , Severe, [employer] checked. Opioid agreement at [facility], # 84 tablet, 0 Refills, Maintenance, 07/20/23 10:39:00 EDT, [facility]., Partial fill upon patient request [...] 05/11/23 8:53:00 EST, Route to Pharmacy Electronically, [facility] 163, cm, 05/07/23 16:54:00 EST, Height, 78, kg... Start Date: 05/11/23 Status: Ordered topiramate 25 mg oral capsule 2 capsule = 50 mg, By Mouth, Daily, take 1 cap daily x 2 weeks then 2 caps daily, # 60 capsule, 4 Refills, Maintenance, 03/05/23 16:23:00 EST, Capsule, [facility] Partial fill upon patient request if the prescription is for a schedule... Start Date: 03/05/23 Status: Ordered triamcinolone 55 mcg/inh nasal spray 1 sprays = 55 mcg, Nares, Both, Daily, # 3 each, 3 Refills, Maintenance, 03/05/23 16:29:00 EST, [facility] Partial fill upon patient request if the prescription is for a schedule II opioid drug., 1 sprays Nares, Both Daily, 163, cm, 1... Start Date: 03/05/23 Status: Ordered Trulicity Pen 1.5 mg/0.5 mL subcutaneous solution = 1.5 mg, Subcutaneous Infusion, Every week, # 4 each, 11 Refills, Maintenance, 11/20/22 16:49:00 EDT, [facility]., Partial fill upon patient request if the prescription is for a schedule II opioid drug., 163, cm, 11/20/22 16:00:00 EDT,... Start Date: 11/20/22 Status: Ordered Ventolin HFA 108 mcg/inh inhalation aerosol with adapter 2 puffs, Inhalation, 4 times a day, PRN for wheezing, # 1 each, 11 Refills, Maintenance, 05/07/23 17:55:00 EST, Aerosol, [facility]., Partial fill upon patient request [...] Confirmed Active Panic attacks Confirmed Active N/CP Consulting Services Associate Charlene Chung Caren [phone] Confirmed Active Perianal abscess Confirmed Active Syncope and collapse Confirmed Active Tobacco dependence Confirmed Active DM2 (diabetes mellitus, type 2) Confirmed 04/03/17 Active Incontinence of urine 4 Confirmed Active 1seen on MRI 10/2016, rec repeat imaging in October 2017 pain managemnt team/ Dr Diop indicated they thought pain was fibromyalgia 3seen on CT Abd 09/18/16 at [facility] [place], pending MRI 4urge and stress Social History Social History Type Response Tobacco Other: Quit 07/2023. Sex Patient Care team information Care Team Personnel Name: Graciela Thrasher RN Position: [facility] RN Member Role: Primary Care Nurse Name: Stevie Angel RN Position: [facility] RN Member Role: Primary Care Nurse Name: Keily Ortega RN Position: [facility] RN Member Role: Primary Care Nurse Name: Graciela Munroe RN Position: [facility] RN Member Role: Primary Care Nurse Name: Nichole Pichardo RN Position: [facility] RN Member Role: Primary Care Nurse Name: Melvin Whitfield RN Position: [facility] AMB Nurse Member Role: Primary Care Nurse Name: Phuong Berkowitz RN Position: [facility] RN Member Role: Primary Care Nurse Name: Pura Walker MD Position: [facility] Physician - Primary Care Member Role: PCP Address: Address: [address] [place] [address] [place] [address]- Name: Joselyn Rain RN Position: [facility] Hospital Hiv Cts Specialist Member Role: Primary Care Nurse Care Team Related Persons Name: IRA ROMERO Address: home [address] [place] [address] Name: JHON LARSON Address: [address] [place] [address] Name: JHON LARSON Address: [address] [place] [address] Name: GALO CATALAN Name: NANCY CATALAN Address: home [address] [place] [address]
--- OUTSIDE RECORDS SUMMARY | 2023-12-31 10:56 | XMS_ITS | Continuity of Care Document ---
Author Organization [facility] Address [address] [place] [address]- Care Team Providers Care Shipper Receiver Name Role Phone Aaron GERARDO, Pura Mahajan Primary Care Physician [facility]23 - 12/09/23 [facility] [address] [place], [place] [phone] Allergies, Adverse Reactions, Alerts Substance Reaction Severity [...] influenza virus vaccine, inactivated 02/16/17 Give n [id number] 12y+ bivalent booster vax 01/30/22 Given SARS-CoV-2 mRNA ([id number]) vax 05/14/21 Given SARS-CoV-2 (COVID-19) mRNA BNT-162b2 [...] 03/05/23 16:21:00 EST, [place] Pharmacy Electronically, [place] [...] 20:46:00 EDT, Inhaler, Route to Pharmacy Electronically, [id number], [facility]-... Start Date: 08/13/23 Status: Ordered All Day Allergy 10 mg oral tablet 1 tablet, By Mouth, Daily, # 90 tablet, 3 Refills, Maintenance, 08/13/23 20:47:00 EDT, [facility]., 163, cm, 08/13/23 18:05:00 EDT, Height, 78, kg, 04/03/23 15:11:00 EST, Dry Weight Start Date: 08/13/23 Status: Ordered amLODIPine 10 mg oral tablet 10 mg, 1, tablet, By Mouth, Daily, # 30 tablet, Refills 4, Tot. Refills 4, Maintenance, 08/13/23 19:14:00 EDT, Route to Pharmacy Electronically, [facility]., Partial fill upon patient request if the prescription is for a schedule II opi... Start Date: 08/13/23 Status: Ordered atorvastatin 40 mg oral tablet 1 tablet = 40 mg, By Mouth, Daily, # 90 tablet, 3 Refills, Maintenance, 08/13/23 20:46:00 EDT, Tablet, [facility]., Partial fill [...] 5 Refills, Maintenance, 07/08/23 15:30:00 EDT, Tablet, [facility] Partial fill upon patient request [...] Gm, 2 Refills, Maintenance, 05/07/23 17:52:00 EST, [facility] 15, APPLY TOPICALLY TO AFFECTED AREA TWO TIMES A DAY FOR TWO WEEKS, [address], ... Start Date: 05/07/23 Status: Ordered diclofenac 1% topical gel 1 application, Topically, 4 times a day, # 100 Gm, 4 Refills, Maintenance, 03/05/23 16:21:00 EST, Gel, [facility] Partial fill upon patient request if the prescription is for a schedule II opioid drug., [address], 03/05/23 15:09:00 EST,... Start Date: 03/05/23 Status: Ordered docusate-senna 50 mg-187 mg oral tablet 2 tablet, By Mouth, 2 times a day, PRN Constipation, # 360 tablet, 3 Refills, Maintenance, 03/05/2316:29:00 EST, Tablet, [facility]., Partial fill upon patient request if the prescription is for a schedule II opioid drug., 2 tablet By... Start Date: 03/05/23 Status: Ordered duloxetine 20 mg oral enteric coated capsule 1 capsule, By Mouth, Daily at bedtime, # 30 capsule, 1 Refills, Maintenance, 05/07/23 17:40:00 EST,[facility], cm, 05/07/23 16:54:00 EST, Height, 78, kg, 04/03/23 15:11:00 EST, Dry Weight Start Date: 05/07/23 Status: Ordered empagliflozin 25 mg oral tablet 1 tablet = 25 mg, By Mouth, Daily in AM, # 90 tablet, 1 Refills, Maintenance, 11/06/23 14:33:00 EDT, Tablet, [facility], Partial [...] 1 each, 4 Refills, Maintenance,07/29/23 15:10:00 EDT, [facility], [...] patch, 3 Refills, Maintenance, 08/13/23 19:20:00 EDT, [facility], Partial fill upon patient req... Start Date: 08/13/23 Stop Date: 08/07/24 Status: Ordered lisinopril 20 mg oral tablet 20 mg, 1, tablet, By Mouth, Daily, # 90 tablet, Refills 3, Tot. Refills 3, Maintenance, 08/13/23 20:46:00 EDT, Route to Pharmacy Electronically, [facility]., 163, cm, 08/13/23 18:05:00EDT, Height, 78, kg, 04/03/23 15:11:00 EST, Dry Weight Start Date: 08/13/23 Status: Ordered melatonin 10 mg oral tablet 1 tablet = 10 mg, By Mouth, Daily at bedtime, PRN as needed for insomnia, # 90 tablet, 3 Refills, Maintenance, 05/07/23 17:52:00 EST, Tablet, [facility], Partial [...] 3 Refills, Maintenance, 04/22/23 20:57:00 EST, Tablet, [facility] Partial fill upon patient request if the prescription is for a schedule II opioid drug., 163, cm, 04/03/23 15... Start Date: 04/22/23 Status: Ordered Mounjaro 5 mg/0.5 mL subcutaneous solution = 5 mg, Subcutaneous Injection, Every week, rotate injection sites; use Tirzepatide 0.25mg weekly x4 weeks then increase dose, # 4 each, 4 Refills, Maintenance, 10/22/23 20:13:00 EDT, Solution, [facility]., Partial fill upon patient re... Start Date: 10/22/23 Status: Ordered Mounjaro 5 mg/0.5 mL subcutaneous solution = 5 mg, Subcutaneous Injection, Every week, d/c dulaglutide, # 4 each, 4 Refills, Maintenance, 09/21/23 13:38:00 EDT, Solution, [facility] Partial fill upon patient request if the prescription is for a schedule II opioid drug., 163, c... Start Date: 09/21/23 Status: Ordered omeprazole 40 mg oral enteric coated capsule 1 capsule, By Mouth, Daily, PRN GERD, # 90 capsule, 3 Refills, Maintenance, 04/22/23 21:00:00 EST, [facility] 163, cm, 04/03/23 15:11:00 EST, Height, 78, kg, 04/03/23 15:11:00 EST, Dry Weight Start Date: 04/22/23 Status: Ordered oxyCODONE 15 mg oral tablet 1 tablet = 15 mg, By Mouth, Every 8 hours, PRN Pain , Severe, [employer] checked. Opioid agreement at [facility], # 84 tablet, 0 Refills, Maintenance, 12/08/23 13:52:00 ED[facility] fill upon patient request [...] 10/09/23 13:08:00 EDT, Route to Pharmacy Electronically, [facility], 163, cm, 09/14/23 14:23:00 EDT, Height, 78, kg, 04/03/23 15:11:00 E... Start Date: 10/09/23 Status: Ordered topiramate 100 mg oral tablet 1 tablet = 100 mg, By Mouth, Daily, increase dose, # 30 tablet, 4 Refills, Maintenance, 08/13/23 19:21:00 EDT, Tablet, [facility]., Partial fill upon patient request if the prescription is for a schedule II opioid drug., 163, cm, ... Start Date: 08/13/23 Status: Ordered triamcinolone 55 mcg/inh nasal spray 1 sprays = 55 mcg, Nares, Both, Daily, # 3 each, 3 Refills, Maintenance, 03/05/23 16:29:00 EST, [facility]., Partial fill upon patient request if the prescription is for a schedule II opioid drug., 1 sprays Nares, Both Daily, 163, cm, 1... Start Date: 03/05/23 Status: Ordered Ventolin HFA 108 mcg/inh inhalation aerosol with adapter 2 puffs, Inhalation, 4 times a day, PRN for wheezing, # 1 each, 11 Refills, Maintenance, 05/07/23 17:55:00 EST, Aerosol, [facility] Partial fill upon patient request [...] Confirmed Active Panic attacks Confirmed Active N/CP Review Consultant Charlene Fabian [phone] Confirmed Active Perianal abscess Confirmed Active Syncope and collapse Confirmed Active Tobacco dependence Confirmed Active DM2 (diabetes mellitus, type 2) Confirmed 04/03/17 Active Incontinence of urine 4 Confirmed Active 1seen on MRI 10/2016, rec repeat imaging in October 2017 pain managemnt team/ Dr Diop indicated they thought pain was fibromyalgia 3seen on CT Abd 09/18/16 at [facility], pending MRI 4urge and stress Social History Social History Type Response Tobacco Other: Quit 07/2023. Sex Patient Care team information Care Team Personnel Name: Graciela Thrasher RN Position: [facility] RN Member Role: Primary Care Nurse Name: [...] Whitfield RN Position: [facility] Nurse Member Role: Primary Care Nurse Name: Phuong Berkowitz RN Position: [facility] RN Member Role: Primary Care Nurse Name: Pura Walker MD Position: [facility] Physician - Primary Care Member Role: PCP Address: Address: [address] [place] [address] [place] [address]- Name: Joselyn Rain RN Position: [facility] Security Representative Member Role: Primary Care Nurse Care Team Related Persons Name: IRA ROMERO Address: [address] [place] [address] Name: JHON LARSON Address: [address] [place] [address] Name: JHON LARSON Address: [address] [place] [address] Name: GALO CATALAN Name: NANCY CATALAN Address: home [address] [place] [address]
--- OUTSIDE RECORDS SUMMARY | 2023-12-31 10:56 | XMS_ITS | Continuity of Care Document ---
Author Organization [facility] Address [address] [place] [address]- Care Team Providers Care Cyber Special Agent Name Role Phone Aaron GERARDO, Pura Mahajan Primary Care Physician [facility]): 09[facility]14[facility]23 - 10/14/23 [facility] [address] [place] [address]- Allergies, Adverse Reactions, Alerts Substance Reaction Severity [...] influenza virus vaccine, inactivated 02/16/17 Give n [id number] 12y+ bivalent booster vax 01/30/22 Given SARS-CoV-2 mRNA ([id number]) vax 05/14/21 Given SARS-CoV-2 (COVID-19) mRNA BNT-162b2 [...] 16:21:00 EST, Route to Pharmacy Electronically, [facility], Partial fill upon patient request if the prescription is for a sched... Start Date: 03/05/23 Status: Ordered Advair Diskus 500 mcg-50 mcg inhalation powder 1, inhalation, Inhalation, 2 times a day, rinse mouth and throat after use, # 60 each, Refills 11, Tot. Refills 11, Maintenance, 08/13/23 20:46:00 EDT, Inhaler, Route to Pharmacy Electronically, [id number], [facility]... Start Date: 08/13/23 Status: Ordered All Day Allergy 10 mg oral tablet 1 tablet, By Mouth, Daily, # 90 tablet, 3 Refills, Maintenance, 08/13/23 20:47:00 EDT, [facility]., 163, cm, 08/13/23 18:05:00 EDT, Height, 78, kg, 04/03/23 15:11:00 EST, Dry Weight Start Date: 08/13/23 Status: Ordered amLODIPine 10 mg oral tablet 10 mg, 1, tablet, By Mouth, Daily, # 30 tablet, Refills 4, Tot. Refills 4, Maintenance, 08/13/23 19:14:00 EDT, Route to Pharmacy Electronically, [facility], Partial fill upon patient request if the prescription is for a schedule II opi... Start Date: 08/13/23 Status: Ordered atorvastatin 40 mg oral tablet 1 tablet = 40 mg, By Mouth, Daily, # 90 tablet, 3 Refills, Maintenance, 08/13/23 20:46:00 EDT, Tablet, [facility], Partial fill upon patient [...] 5 Refills, Maintenance, 07/08/23 15:30:00 EDT, Tablet, [facility] Partial [...] Gm, 2 Refills, Maintenance, 05/07/23 17:52:00 EST, [facility] 15, APPLY TOPICALLY TO AFFECTED AREA TWO TIMES A DAY FOR TWO WEEKS, 163, [place], ... Start Date: 05/07/23 Status: Ordered diclofenac 1% topical gel 1 application, Topically, 4 times a day, # 100 Gm, 4 Refills, Maintenance, 03/05/23 16:21:00 EST, Gel, [facility] Partial fill upon patient request if the prescription is for a schedule II opioid drug., 163, e[place], 03/05/23 15:09:00 EST,... Start Date: 03/05/23 Status: Ordered docusate-senna 50 mg-187 mg oral tablet 2 tablet, By Mouth, 2 times a day, PRN Constipation, # 360 tablet, 3 Refills, Maintenance, 03/05/2316:29:00 EST, Tablet, [facility]., Partial fill upon patient request if the prescription is for a schedule II opioid drug., 2 tablet By... Start Date: 03/05/23 Status: Ordered duloxetine 20 mg oral enteric coated capsule 1 capsule, By Mouth, Daily at bedtime, # 30 capsule, 1 Refills, Maintenance, 05/07/23 17:40:00 EST,[facility], 163, cm, 05/07/23 16:54:00 EST, Height, 78, kg, 04/03/23 15:11:00 EST, Dry Weight Start Date: 05/07/23 Status: Ordered empagliflozin 10 mg oral tablet 1 tablet = 10 mg, By Mouth, Daily in AM, # 90 tablet, 3 Refills, Maintenance, 08/13/23 20:46:00 EDT, Tablet, [facility]., Partial fill upon patient request if [...] each, 4 Refills, Maintenance,07/29/23 15:10:00 EDT, [facility], Partial fill upon patient request if the prescription is for a schedule II opioid drug., 1 spray eac... Start Date: 07/29/23 Status: Ordered Lidoderm 5% film 2 patch, Topically, Daily, remove patches after 12 hours; 2 patches to pain areas; can cut patches in half; do not excede 2 patches., # 180 patch, 3 Refills, Maintenance, 08/13/23 19:20:00 EDT, [facility], Partial fill upon patient req... Start Date: 08/13/23 Stop Date: 08/07/24 Status: Ordered lisinopril 20 mg oral tablet 20 mg, 1, tablet, By Mouth, Daily, # 90 tablet, Refills 3, Tot. Refills 3, Maintenance, 08/13/23 20:46:00 EDT, Route to Pharmacy Electronically, [facility] 163, cm, 08/13/23 18:05:00EDT, Height, 78, kg, 04/03/23 15:11:00 EST, Dry Weight Start Date: 08/13/23 Status: Ordered melatonin 10 mg oral tablet 1 tablet = 10 mg, By Mouth, Daily at bedtime, PRN as needed for insomnia, # 90 tablet, 3 Refills, Maintenance, 05/07/23 17:52:00 EST, Tablet, [facility], Partial fill upon patient [...] 3 Refills, Maintenance, 04/22/23 20:57:00 EST, Tablet[facility] Partial fill upon patient request if the prescription is for a schedule II opioid drug., 163, cm, 04/03/23 15... Start Date: 04/22/23 Status: Ordered Mounjaro 2.5 mg/0.5 mL subcutaneous solution = 2.5 mg, Subcutaneous Injection, Every week, rotate injection sites; use Tirzepatide 0.25mg weeklyx 4 weeks then increase dose, # 4 each, 0 Refills, Maintenance, 08/13/23 19:13:00 EDT, Solution[facility] fill upon patient... Start Date: 08/13/23 Status: Ordered Mounjaro 5 mg/0.5 mL subcutaneous solution = 5 mg, Subcutaneous Injection, Every week, rotate injection sites; use Tirzepatide 0.25mg weekly x4 weeks then increase dose, # 4 each, 0 Refills, Maintenance, 08/13/23 19:14:00 EDT, Solution, [facility] Partial fill upon patient re... Start Date: 08/13/23 Status: Ordered Mounjaro 5 mg/0.5 mL subcutaneous solution = 5 mg, Subcutaneous Injection, Every week, d/c dulaglutide, # 4 each, 4 Refills, Maintenance, 09/21/23 13:38:00 EDT, Solution, [facility] Partial fill upon patient request if the prescription is for a schedule II opioid drug., 163, c... Start Date: 09/21/23 Status: Ordered omeprazole 40 mg oral enteric coated capsule 1 capsule, By Mouth, Daily, PRN GERD, # 90 capsule, 3 Refills, Maintenance, 04/22/23 21:00:00 EST, [facility], 163, cm, 04/03/23 15:11:00 EST, Height, 78, kg, 04/03/23 15:11:00 EST, Dry Weight Start Date: 04/22/23 Status: Ordered oxyCODONE 15 mg oral tablet 1 tablet = 15 mg, By Mouth, Every 8 hours, PRN Pain , Severe, [employer] checked. Opioid agreement at [facility], # 84 tablet, 0 Refills, Maintenance, 10/09/23 15:23:00 EDT, [facility], Partial fill upon patient request if the prescription is... Start Date: 10/09/23 Stop Date: 11/06/23 Status: Ordered prazosin 2 mg oral capsule via psychiatry [facility], 0 Refills, Maintenance, 01/19/23 21:19:00 EDT, Partial fill upon patient request if the prescription is for a schedule II opioid drug. Start Date: 01/19/23 Status: Ordered tiZANidine 4 mg oral tablet 1, tablet, By Mouth, 3 times a day, PRN, # 90 tablet, Refills 3, Maintenance, NEEDED FOR SEVERE PAIN, 10/09/23 13:08:00 EDT, Route to Pharmacy Electronically, [facility], 163, cm, 09/14/23 14:23:00 EDT, Height, 78, kg, 04/03/23 15:11:00 E... Start Date: 10/09/23 Status: Ordered topiramate 100 mg oral tablet 1 tablet = 100 mg, By Mouth, Daily, increase dose, # 30 tablet, 4 Refills, Maintenance, 08/13/23 19:21:00 EDT, Tablet, [facility], Partial fill upon patient request if the prescription is for a schedule II opioid drug., 163, cm, ... Start Date: 08/13/23 Status: Ordered triamcinolone 55 mcg/inh nasal spray 1 sprays = 55 mcg, Nares, Both, Daily, # 3 each, 3 Refills, Maintenance, 03/05/23 16:29:00 EST, [facility], Partial fill upon patient request if the prescription is for a schedule II opioid drug., 1 sprays Nares, Both Daily, 163, cm, 1... Start Date: 03/05/23 Status: Ordered Trulicity Pen 1.5 mg/0.5 mL subcutaneous solution = 1.5 mg, Subcutaneous Infusion, Every week, # 4 each, 11 Refills, Maintenance, 08/14/23 12:21:00 EDT, [facility] Partial fill upon patient request if the prescription is for a schedule II opioid drug., 163, cm, 08/13/23 18:05:00 EDT,... Start Date: 08/14/23 Status: Ordered Ventolin HFA 108 mcg/inh inhalation aerosol with adapter 2 puffs, Inhalation, 4 times a day, PRN for wheezing, # 1 each, 11 Refills, Maintenance, 05/07/23 17:55:00 EST, Aerosol, [facility]., Partial fill upon patient request if [...] Confirmed Active Panic attacks Confirmed Active BHN/BHCP Binder Caser Charlene Fabian [phone] Confirmed Active Perianal abscess Confirmed Active Syncope and collapse Confirmed Active Tobacco dependence Confirmed Active DM2 (diabetes mellitus, type 2) Confirmed 04/03/17 Active Incontinence of urine 4 Confirmed Active 1seen on MRI 10/2016, rec repeat imaging in October 2017 pain managemnt team/ Dr Diop indicated they thought pain was fibromyalgia 3seen on CT Abd 09/18/16 at [facility], pending MRI 4urge and stress Social History Social History Type Response Tobacco Other: Quit 07/2023. Sex Patient Care team information Care Team Personnel Name: Price PETERSON, Graciela Position: [facility] SN RN Member Role: Primary Care [...] Primary Care Member Role: PCP Address: Address: [address] [place] [id number] Name: Joselyn Rain RN Position: [facility] Hospital Director Index Member Role: Primary Care Nurse Care Team Related Persons Name: IRA ROMERO Address: home [address] [place] [address] Name: JHON LARSON Address: [address] [place] [address] Name: JHON LARSON Address: [address] [place] [address] Name: GALO CATALAN Name: NANCY CATALAN Address: home [address] [place] [address]
--- OUTSIDE RECORDS SUMMARY | 2023-12-31 10:56 | XMS_ITS | Continuity of Care Document ---
Author Organization [facility] Address [address] [place] [address]- Care Team Providers Care Lot Technician Name Role Phone Aaron GERARDO, Pura Mahajan Primary Care Physician [facility]23 - 04/19/23 [facility] [address] [place], [place] [address] Allergies, Adverse Reactions, Alerts Substance [...] influenza virus vaccine, inactivated 02/16/17 Give n [id number] 12y+ bivalent booster vax 01/30/22 Given SARS-CoV-2 mRNA ([id number]) vax 05/14/21 Given SARS-CoV-2 (COVID-19) mRNA BNT-162b2 [...] 03/05/23 16:21:00 EST, Route to Pharmacy Electronically, [facility], Partial fill upon patient request if the prescription is for a sched... Start Date: 03/05/23 Status: Ordered Advair Diskus 500 mcg-50 mcg inhalation powder 1, inhalation, Inhalation, 2 times a day, rinse mouth and throat after use, # 60 each, Refills 11, Tot. Refills 11, Maintenance, 09/25/22 17:00:00 EDT, Inhaler, Route to Pharmacy Electronically, [id number], [facility]... Start Date: 09/25/22 Status: Ordered albuterol 0.083% inhalation solution 3 mL = 2.5 mg, Neb, Every 4 hours, PRN Wheezing/Shortness of Breath, # 100 each, 11 Refills, Maintenance, 12/26/22 8:14:00 EDT, Inhalation Solution, [facility], Partial fill upon patient request if the prescription is for a schedule II... Start Date: 12/26/22 Status: Ordered All Day Allergy 10 mg oral tablet 1 tablet, By Mouth, Daily, # 90 tablet, 3 Refills, Maintenance, 11/20/22 16:48:00 EDT, [facility], 163, cm, 11/20/22 16:00:00 EDT, Height, 83, kg, 02/11/22 19:19:00 EST, Dry Weight Start Date: 11/20/22 Status: Ordered amLODIPine 5 mg oral tablet 5 mg, 1, tablet, By Mouth, Daily, # 90 tablet, Refills 3, Tot. Refills 3, Maintenance, 03/05/23 16:29:00 EST, Route to Pharmacy Electronically, [facility], Partial fill upon patient request if the prescription is for a schedule II opio... Start Date: 03/05/23 Status: Ordered atorvastatin 40 mg oral tablet 1 tablet = 40 mg, By Mouth, Daily, # 90 tablet, 3 Refills, Maintenance, 09/25/22 16:58:00 EDT, Tablet, [facility] Partial fill upon patient request [...] Gm, 2 Refills, Maintenance, 12/26/22 8:13:00 EDT, [facility] 15, APPLY TOPICALLY TO AFFECTED AREA TWO TIMES A DAY FOR TWO WEEKS, 163, cm, ... Start Date: 12/26/22 Status: Ordered diclofenac 1% topical gel 1 application, Topically, 4 times a day, # 100 Gm, 4 Refills, Maintenance, 03/05/23 16:21:00 EST, Gel, [facility] Partial fill upon patient request if the prescription is for a schedule II opioid drug., 163, cm, 03/05/23 15:09:00 EST,... Start Date: 03/05/23 Status: Ordered docusate-senna 50 mg-187 mg oral tablet 2 tablet, By Mouth, 2 times a day, PRN Constipation, # 360 tablet, 3 Refills, Maintenance, 03/05/2316:29:00 EST, Tablet, [facility] Partial fill upon patient request [...] 3 Refills, Maintenance, 09/25/22 17:01:00 EDT, Tablet, [facility], Partial fill upon patient request if the prescription is for aschedule II opioid drug., 163, cm, 09/25/22 16:20:0... Start Date: 09/25/22 Status: Ordered ibuprofen 800 mg oral tablet 1, tablet, By Mouth, 3 times a day, PRN, # 90 tablet, Refills 1, Tot. Refills 1, Maintenance, NEEDED FOR PAIN, 10/22/22 15:19:00 EDT, Route to Pharmacy Electronically, [facility], 163, cm, 09/25/22 16:20:00 EDT, Height, 83, kg, 11/0... Start Date: 10/22/22 Status: Ordered Januvia 100 mg oral tablet 1 tablet, By Mouth, Daily, # 30 tablet, 11 Refills, Maintenance, 11/26/22 10:02:00 EDT, [facility], 163, cm, 11/20/22 16:00:00 EDT, Height, 83, kg, 02/11/22 19:19:00 EST, Dry Weight Start Date: 11/26/22 Status: Ordered lidocaine 5% topical film 1 patch, Topically, Daily, PRN Pain , Mild, remove after 12 hours, # 13 each, 5 Refills, Maintenance, 09/25/22 16:59:00 EDT, Film, [facility], Partial fill upon patient request if theprescription is for a schedule II opioid drug., 1 p... Start Date: 09/25/22 Status: Ordered Lidoderm 5% film 2 patch, Topically, Daily, remove patches after 12 hours; 2 patches to pain areas; can cut patches in half; do not excede 2 patches., # 60 patch, 4 Refills, Maintenance, 03/05/23 16:22:00 EST, [facility], Partial fill upon patient requ... Start Date: 03/05/23 Stop Date: 08/02/23 Status: Ordered lisinopril 20 mg oral tablet 20 mg, 1, tablet, By Mouth, Daily, # 90 tablet, Refills 3, Tot. Refills 3, Maintenance, 11/20/22 16:48:00 EDT, Route to Pharmacy Electronically, [facility], 163, cm, 11/20/22 16:00:00EDT, Height, 83, kg, 02/11/22 19:19:00 EST, Dry Weight Start Date: 11/20/22 Status: Ordered mirtazapine 30 mg oral tablet 1 tablet = 30 mg, By Mouth, Daily at bedtime, # 90 tablet, 1 Refills, Maintenance, 09/25/22 17:00:00 EDT, Tablet, [facility], Partial fill upon patient request if the prescription is for a schedule II opioid drug., 163, cm, 09/25/22 16... Start Date: 09/25/22 Status: Ordered omeprazole 40 mg oral enteric coated capsule 1 capsule, By Mouth, Daily, PRN NEEDED, # 90 capsule, 1 Refills, Maintenance, 11/25/22 10:53:00 EDT, [facility], 163, cm, 11/20/22 16:00:00 EDT, Height, 83, kg, 02/11/22 19:19:00 EST, Dry Weight Start Date: 11/25/22 Status: Ordered oxyCODONE 15 mg oral tablet 1 tablet = 15 mg, By Mouth, Every 8 hours, PRN Pain , Severe, [employer] checked. Opioid agreement at [facility], # 84 tablet, 0 Refills, Maintenance, 04/16/23 21:28:00 EST, [facility]/pharmacy #[id number], Partial fill upon [...] 01/27/23 9:28:00 EDT, Route to Pharmacy Electronically, [facility] 163, cm, 11/20/22 16:00:00 EDT, Height, 83, kg... Start Date: 01/27/23 Status: Ordered topiramate 25 mg oral capsule 2 capsule = 50 mg, By Mouth, Daily, take 1 cap daily x 2 weeks then 2 caps daily, # 60 capsule, 4 Refills, Maintenance, 03/05/23 16:23:00 EST, Capsule, [facility] Partial fill upon patient request if the prescription is for a schedule... Start Date: 03/05/23 Status: Ordered traZODone 50 mg oral tablet 1/2 TO 1 TABLET, By Mouth, Daily at bedtime, # 30 tablet, Refills 5, Tot. Refills 5, Maintenance, 02/18/23 14:55:00 EST, Route to Pharmacy Electronically, [facility] 163, cm, 11/20/22 16:00:00 EDT, Height, 83, kg, 02/11/22 19:19:00 ES... Start Date: 02/18/23 Status: Ordered triamcinolone 55 mcg/inh nasal spray 1 sprays = 55 mcg, Nares, Both, Daily, # 3 each, 3 Refills, Maintenance, 03/05/23 16:29:00 EST, [facility] Partial fill upon patient request if the prescription is for a schedule II opioid drug., 1 sprays Nares, Both Daily, 163, cm, 1... 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 Fabian [phone] Confirmed Active Syncope and collapse Confirmed Active Tobacco dependence Confirmed Active DM2 (diabetes mellitus, type 2) Confirmed 04/03/17 Active Incontinence of urine 5 Confirmed Active 1on polysomnogram 2seen on MRI 10/2016, rec repeat imaging in October 2017 pain managemnt team/ Dr Diop indicated they thought pain was fibromyalgia 4seen on CT Abd 09/18/16 at [facility], pending MRI 5urge and stress Social History Social History Type Response Smoking Status Current every day sm oker; Type: Cigarettes; Tobacco use times per day: 1/2 ppd; entered on: 12/24/17 Sex Patient Care team information Care Team Personnel Name: Graciela Thrasher RN Position: [facility] SN RN Member Role: Primary Care Nurse Name: Stevie Angel RN Position: [facility] RN Member Role: Primary Care Nurse Name: Keily Ortega RN Position: [facility] RN Member Role: Primary Care Nurse Name: Graciela Munroe RN Position: [facility] RN Member Role: Primary Care Nurse Name: Nichole Pichardo RN Position: [facility] RN Member Role: Primary Care Nurse Name: Melvin Whitfield RN Position: [facility] AMB Nurse Member Role: Primary Care Nurse Name: Phuong Berkowitz RN Position: [facility] RN Member Role: Primary Care Nurse Name: Pura Walker MD Position: [facility] Physician - Primary Care Member Role: PCP Address: Address: [address] [place] [id number] Name: Joselyn Rain RN Position: [facility] Hospital Gold Stamper Member Role: Primary Care Nurse Care Team Related Persons Name: IRA ROMERO Address: home [address] [place] [address] Name: JHON LARSON Address: [address] [place] [address] Name: JHON LARSON Address: [address] [place] [address] Name: GALO CATALAN Name: NANCY CATALAN Address: home [address] [place] [address]
--- OUTSIDE RECORDS SUMMARY | 2023-12-31 10:56 | XMS_ITS | Continuity of Care Document ---
Author Organization [facility] Address [address] [place] [address]- Care Team Providers Care Metallography Teacher Name Role Phone Pura Walker MD Primary Care Physician [phone] Encounter [facility] [place] Date(s): 04/03/23 - 04/10/23 [facility] [address] [place], [place] [address] Attending Physician: Megan Levy MD Referring Physician: Pura Walker MD Allergies, [...] influenza virus vaccine, inactivated 02/16/17 Give n [id number] 12y+ bivalent booster vax 01/30/22 Given SARS-CoV-2 mRNA ([id number]-krvc-envlc) vax 05/14/21 Given SARS-CoV-2 (COVID-19) mRNA BNT-162b2 [...] 03/05/23 16:21:00 EST, Route to Pharmacy Electronically, [facility], Partial fill upon patient request if the prescription is for a sched... Start Date: 03/05/23 Status: Ordered Advair Diskus 500 mcg-50 mcg inhalation powder 1, inhalation, Inhalation, 2 times a day, rinse mouth and throat after use, # 60 each, Refills 11, Tot. Refills 11, Maintenance, 09/25/22 17:00:00 EDT, Inhaler, Route to Pharmacy Electronically, [id number], [facility]... Start Date: 09/25/22 Status: [...] 03/05/23 16:29:00 EST, Route to Pharmacy Electronically, [facility], Partial fill upon patient request if the prescription is for a schedule II opio... Start Date: 03/05/23 Status: Ordered amoxicillin-clavulanate 875 mg-125 mg oral tablet 1 tablet, By Mouth, Every 12 hours, for 10 days, # 20 tablet, 0 Refills, Acute 04/13/23 16:09:00 EST, 04/03/23 16:09:00 EST, Tablet, [facility]/pharmacy #[id number], Partial fill upon patient request if the prescription is for a schedule II opioid drug., 163, cm,... Start Date: 04/03/23 Stop Date: 04/13/23 Status: Ordered atorvastatin 40 mg oral tablet 1 tablet = 40 mg, By Mouth, Daily, # 90 tablet, 3 Refills, Maintenance, 09/25/22 16:58:00 EDT, Tablet, [facility], Partial [...] Gm, 2 Refills, Maintenance, 12/26/22 8:13:00 EDT, [facility]., 15, APPLY TOPICALLY TO AFFECTED AREA TWO TIMES A DAY FOR TWO WEEKS, 163, cm, ... Start Date: 12/26/22 Status: Ordered diclofenac 1% topical gel 1 application, Topically, 4 times a day, # 100 Gm, 4 Refills, Maintenance, 03/05/23 16:21:00 EST, Gel, [facility]., Partial fill upon patient request if the prescription is for a schedule II opioid drug., 163, cm, 03/05/23 15:09:00 EST,... Start Date: 03/05/23 Status: Ordered docusate-senna 50 mg-187 mg oral tablet 2 tablet, By Mouth, 2 times a day, PRN Constipation, # 360 tablet, 3 Refills, Maintenance, 03/05/2316:29:00 EST, Tablet, [facility]., Partial fill upon patient [...] tablet, 11 Refills, Maintenance, 11/26/22 10:02:00 EDT, [facility], 163, cm, 11/20/22 16:00:00 EDT, Height, [...] patch, 4 Refills, Maintenance, 03/05/23 16:22:00 EST, [facility]., Partial fill upon patient requ... Start Date: [...] Refills, Maintenance, 09/25/22 17:00:00 EDT, Tablet, [facility], Partial fill upon patient request if the prescription is for a schedule II opioid drug., 163, cm, 09/25/22 16... Start Date: 09/25/22 Status: Ordered omeprazole 40 mg oral enteric coated capsule 1 capsule, By Mouth, Daily, PRN NEEDED, # 90 capsule, 1 Refills, Maintenance, 11/25/22 10:53:00 EDT, [facility], 163, cm, 11/20/22 16:00:00 EDT, Height, 83, kg, 02/11/22 19:19:00 EST, Dry Weight Start Date: 11/25/22 Status: Ordered oxyCODONE 15 mg oral tablet 1 tablet = 15 mg, By Mouth, Every 8 hours, PRN Pain , Severe, MassPat checked. Opioid agreement at [facility], # 84 tablet, 0 Refills, Maintenance, 03/20/23 9:34:00 EST, [facility], Partialfill upon patient request if the prescription [...] 9:28:00 EDT, Route to Pharmacy Electronically, [facility], 163, cm, 11/20/22 16:00:00 EDT, Height, 83, kg... Start Date: 01/27/23 Status: Ordered topiramate 25 mg oral capsule 2 capsule = 50 mg, By Mouth, Daily, take 1 cap daily x 2 weeks then 2 caps daily, # 60 capsule, 4 Refills, Maintenance, 03/05/23 16:23:00 EST, Capsule, [facility], Partial fill upon patient request if the prescription is for a schedule... Start Date: 03/05/23 Status: Ordered traZODone 50 mg oral tablet 1/2 TO 1 TABLET, By Mouth, Daily at bedtime, # 30 tablet, Refills 5, Tot. Refills 5, Maintenance, 02/18/23 14:55:00 EST, Route to Pharmacy Electronically, [facility]., 163, cm, 11/20/22 16:00:00 EDT, Height, 83, kg, 02/11/22 19:19:00 ES... Start Date: 02/18/23 Status: Ordered triamcinolone 55 mcg/inh nasal spray 1 sprays = 55 mcg, Nares, Both, Daily, # 3 each, 3 Refills, Maintenance, 03/05/23 16:29:00 EST, [facility]., Partial fill upon patient request if the prescription is for a schedule II opioid drug., 1 sprays Nares, Both Daily, 163, cm, 1... Start Date: 03/05/23 Status: Ordered Trulicity Pen 1.5 mg/0.5 mL subcutaneous solution = 1.5 mg, Subcutaneous Infusion, Every week, # 4 each, 11 Refills, Maintenance, 11/20/22 16:49:00 EDT, [facility]., Partial fill upon patient [...] Confirmed Active Panic attacks Confirmed Active [facility]N/BHCP Digital Director Charlene Fabian [phone] Confirmed Active Syncope and collapse Confirmed Active [...] – [place], pending MRI 5urge and stress Vital Signs Most recent to oldest [Reference Range]: 1 Height 163 cm (04/03/23 3:11 PM) Weight 78 kg (04/03/23 3:11 PM) Oxygen Saturation [94-100 %] 100 % (04/03/23 3:11 PM) Pulse Rate [55-90 bpm] 78 bpm (04/03/23 3:11 PM) Body Mass Index [18.5-24.99 kg/m2] 29.36 kg/m2 *H* (04/03/23 3:11 PM) Blood Pressure [90-138/55-84 mm Hg] 137/ 94mm Hg (04/03/23 3:11 PM) Respiratory Rate [16-30 br/min] 16 br/mi n (04/03/23 3:11 PM) Temperature [96.8-100.4 DegF] 97.9 DegF (04/03/23 3:11 PM) Mode of Delivery (Oxygen) Room air (04/03/23 3:11 PM) Blood pressure sites Arm, right (04/03/23 3:11 PM) Temperature Route Oral (04/03/23 3:11 PM) Dry Weight 78 kg (04/03/23 3:11 PM) Weight Obtained Via Patient/family state d (04/03/23 3:11 PM) Dry Weight Obtained Via Patient/family s tated (04/03/23 3:11 PM) Social History Social History Type Response Smoking Status Current every day sm oker; Type: Cigarettes; Tobacco use times per day: 1/2 ppd; entered on: 12/24/17 Sex Note * Nichole Rain: PERFORM, SIGN, VERIFY Event Display: Patient Education/Instruction Authored Date: [id number] [facility] *[facility] Clinical Summary Name HUANG YIN Age 53 Years 1970 PCP Aaron GERARDO, Pura Mahajan PCP Visit Date 04/03/2023 13:51:00 Additional Instructions: Scheduled Appointments?? Future Appointments ?*[facility] [address] ?[place],??[place],??[address] ?Phone:??--?Fax:??-- ?Appt. Date:??05/07/2023?5:00 PM ?Scheduled Provider:??Aaron GERARDO, Pura Mahajan Follow-Up Instructions ?? Diagnosis Medications: Please continue your medications until treatment is completed or stopped by your provider. Discuss any questions related to medications with your provider. New Medications [facility]/pharmacy #[id number], [address] [place], [place] [id number], [phone] Amoxicillin-Clavulanate (amoxicillin-clavulanate 875 mg-125 mg oral tablet) 1 tab(s) Oral every 12 hours for 10 Days. Refills: 0. Next Dose: Medications to Continue with No Changes These medications were not printed or sent to your pharmacy Acetaminophen (acetaminophen 325 mg oral tablet) 2 tab(s) Oral 3 times a day. Refills: 3. Next Dose: Albuterol (albuterol 0.083% inhalation solution) 3 Milliliter Nebulized inhalation every 4 hours asneeded Wheezing/Shortness of Breath. Refills: 11. Next Dose: Amlodipine (amLODIPine 5 mg oral tablet) 1 tab(s) Oral Daily. Refills: 3. Next Dose: Atorvastatin (atorvastatin 40 mg oral tablet) 1 tab(s) Oral Daily. Refills: 3. Next Dose: Cetirizine (All Day Allergy 10 mg oral tablet) 1 tab(s) Oral Daily. Refills: 3. Next Dose: Clonazepam (clonazePAM 0.5 mg oral tablet) via psychiatry A Lara. Next Dose: Clonidine (cloNIDine 0.3 mg oral tablet) via psychiatry A Lara. Next Dose: Clotrimazole Topical (clotrimazole 1% topical cream) APPLY TOPICALLY TO AFFECTED AREA TWO TIMES A DAY FOR TWO WEEKS. Refills: 2. Next Dose: Diclofenac Topical (diclofenac 1% topical gel) 1 summer Topically 4 times a day. Refills: 4. Next Dose: Docusate-Senna (docusate-senna 50 mg-187 mg oral tablet) 2 tab(s) Oral twice a day as needed Constipation. Refills: 3. Next Dose: dulaglutide (Trulicity Pen 1.5 mg/0.5 mL subcutaneous solution) 1.5 Milligram Subcutaneous Infusionevery week. Refills: 11. Next Dose: Duloxetine (duloxetine 20 mg oral enteric coated capsule) via psychiatry A Lara. Next Dose: empagliflozin (empagliflozin 10 mg oral tablet) 1 tab(s) Oral Daily in the morning. Refills: 3. Next Dose: Fluticasone-Salmeterol (Advair Diskus 500 mcg-50 mcg inhalation powder) 1 inhalation Inhalation twice a day. rinse mouth and throat after use. Refills: 11. Next Dose: Ibuprofen (ibuprofen 800 mg oral tablet) 1 tab(s) Oral 3 times a day as needed NEEDED FOR PAIN. Refills: 1. Next Dose: Lidocaine Topical (lidocaine 5% topical film) 1 patch(es) Topically Daily as needed Pain , Mild. remove after 12 hours. Refills: 5. Next Dose: Lidocaine Topical (Lidoderm 5% film) 2 patch Topically Daily for 30 Days. remove patches after 12 hours; 2 patches to pain areas; can cut patches in half; do not excede 2 patches.. Refills: 4. Next Dose: Lisinopril (lisinopril 20 mg oral tablet) 1 tab(s) Oral Daily. Refills: 3. Next Dose: Mirtazapine (mirtazapine 30 mg oral tablet) 1 tab(s) Oral Daily at Bedtime. Refills: 1. Next Dose: Omeprazole (omeprazole 40 mg oral enteric coated capsule) 1 capsule Oral Daily as needed. Refills: 1. Next Dose: Oxycodone (oxyCODONE 15 mg oral tablet) 1 tab(s) Oral every 8 hours as needed Pain , Severe for 28 Days. MassPat checked. Opioid agreement at [facility]. Refills: 0. Next Dose: Prazosin (prazosin 2 mg oral capsule) via psychiatry A Lara. Next Dose: sitagliptin (Januvia 100 mg oral tablet) 1 tab(s) Oral Daily. Refills: 11. Next Dose: Tizanidine (tiZANidine 4 mg oral tablet) 1 tab(s) Oral 3 times a day as needed NEEDED FOR SEVEREPAIN. Refills: 3. Next Dose: Topiramate (topiramate 25 mg oral capsule) 2 capsule Oral Daily. take 1 cap daily x 2 weeks then 2 caps daily. Refills: 4. Next Dose: Trazodone (traZODone 50 mg oral tablet) 1/2 TO 1 TABLET Oral Daily at Bedtime. Refills: 5. Next Dose: Triamcinolone Nasal (triamcinolone 55 mcg/inh nasal spray) 1 spray(s) Nares, Both Daily. Refills: 3. Next Dose: Allergy Info:?? MetFORMIN Hydrochloride ER; SEROquel; Lyrica; gabapentin; morphine Medications Given This Visit Future Orders ?No future orders Vital Signs Height 163 cm Weight 78 kg BMI 29.36 kg/m2 Blood Pressure 137 mm Hg/94 mm Hg Temperature 97.9 DegF Pulse Rate 78 bpm Respiratory Rate 16 br/min 02 Sat Mode of Delivery 100 %/Room air You can now view a summary of your hospital visit from the comfort of your home through a free online portal called [employer]. [employer] is a website that allows you to securely view your medical information including discharge summary, medications and follow-up visits. ??You can alsosend a secure electronic message to your doctor???s office to request appointments, renew medications or just ask a question. You can enroll at [email or web address] or register during your next office [...] primary care provider, you may find a [facility] provider by calling [facility] Theme [employer] News (TTN) Link at [phone]. [facility], in keeping with [facility] guidance, no longer requires face masks for staff, patientsor visitors in most situations. Similar to time spent indoors at other locations, there is the chance that you were exposed to respiratory viruses during your time with us (such as flu or COVID-19).? If you develop symptoms concerning for a viral respiratory infection, please seek testing (and treatment if indicated) from your medical provider or home test kit. For information about the plan of care [...] Team Personnel Name: Graciela Thrasher RN Position: [facility] RN Member Role: Primary Care Nurse Name: Stevie Angel RN Position: [facility] RN Member Role: Primary Care Nurse Name: Keily Ortega RN Position: [facility] RN Member Role: Primary Care Nurse Name: Graciela Munroe RN Position: [facility] RN Member Role: Primary Care Nurse Name: Nichole Pichardo RN Position: [facility] RN Member Role: Primary Care Nurse Name: Melvin Whitfield RN Position: [facility] AMB Nurse Member Role: Primary Care Nurse Name: Phuong Berkowitz RN Position: [facility] RN Member Role: Primary Care Nurse Name: Pura Walker MD Position: [facility] Physician - Primary Care Member Role: PCP Address: Address: [address] [place] [address] [place] [address]- Name: Joselyn Rain RN Position: [facility] Hospital Card Maker Member Role: Primary Care Nurse Care Team Related Persons Name: IRA ROMERO Address: home [address] [place] [address] Name: JHON LARSON Address: [address] [place] [address] Name: JHON LARSON Address: [address] [place] [address] Name: GALO CATALAN Name: NANCY CATALAN Address: home [address] [place] [address]
--- OUTSIDE RECORDS SUMMARY | 2023-12-31 10:56 | XMS_ITS | Continuity of Care Document ---
Author Organization [facility] Address [address] [place] [address]- Care Team Providers Care Machine Sizer Name Role Phone Aaron GERARDO, Pura Mahajan Primary Care Physician Encounter [facility] Date(s): 03/19/23 - 04/18/23 [facility] [address] [place], [place] [address] Allergies, Adverse [...] influenza virus vaccine, inactivated 02/16/17 Give n [id number] 12y+ bivalent booster vax 01/30/22 Given SARS-CoV-2 mRNA (kiawons-kxol-qlned) vax 05/14/21 Given SARS-CoV-2 (COVID-19) mRNA BNT-162b2 [...] 03/05/23 16:21:00 EST, Route to Pharmacy Electronically, [facility], Partial fill upon patient request if the prescription is for a sched... Start Date: 03/05/23 Status: Ordered Advair Diskus 500 mcg-50 mcg inhalation powder 1, inhalation, Inhalation, 2 times a day, rinse mouth and throat after use, # 60 each, Refills 11, Tot. Refills 11, Maintenance, 09/25/22 17:00:00 EDT, Inhaler, Route to Pharmacy Electronically, [id number], [facility]-... Start Date: 09/25/22 Status: Ordered albuterol 0.083% inhalation solution 3 mL = 2.5 mg, Neb, Every 4 hours, PRN Wheezing/Shortness of Breath, # 100 each, 11 Refills, Maintenance, 12/26/22 8:14:00 EDT, Inhalation Solution, [facility], Partial fill upon patient request if the prescription is for a schedule II... Start Date: 12/26/22 Status: Ordered All Day Allergy 10 mg oral tablet 1 tablet, By Mouth, Daily, # 90 tablet, 3 Refills, Maintenance, 11/20/22 16:48:00 EDT, [facility], 163, cm, 11/20/22 16:00:00 EDT, Height, 83, kg, 02/11/22 19:19:00 EST, Dry Weight Start Date: 11/20/22 Status: Ordered amLODIPine 5 mg oral tablet 5 mg, 1, tablet, By Mouth, Daily, # 90 tablet, Refills 3, Tot. Refills 3, Maintenance, 03/05/23 16:29:00 EST, Route to Pharmacy Electronically, [facility], Partial fill upon patient request if the prescription is for a schedule II opio... Start Date: 03/05/23 Status: Ordered atorvastatin 40 mg oral tablet 1 tablet = 40 mg, By Mouth, Daily, # 90 tablet, 3 Refills, Maintenance, 09/25/22 16:58:00 EDT, Tablet[facility] fill upon patient [...] Gm, 2 Refills, Maintenance, 12/26/22 8:13:00 EDT, [facility] 15, APPLY TOPICALLY TO AFFECTED AREA TWO TIMES A DAY FOR TWO WEEKS, 163, cm, ... Start Date: 12/26/22 Status: Ordered diclofenac 1% topical gel 1 application, Topically, 4 times a day, # 100 Gm, 4 Refills, Maintenance, 03/05/23 16:21:00 EST, Gel, [facility] Partial fill upon patient request if the prescription is for a schedule II opioid drug., 163, cm, 03/05/23 15:09:00 EST,... Start Date: 03/05/23 Status: Ordered docusate-senna 50 mg-187 mg oral tablet 2 tablet, By Mouth, 2 times a day, PRN Constipation, # 360 tablet, 3 Refills, Maintenance, 03/05/2316:29:00 EST, Tablet, [facility] Partial fill upon patient request [...] 3 Refills, Maintenance, 09/25/22 17:01:00 EDT, Tablet, [facility], Partial fill upon patient request if the prescription is for aschedule II opioid drug., 163, cm, 09/25/22 16:20:0... Start Date: 09/25/22 Status: Ordered ibuprofen 800 mg oral tablet 1, tablet, By Mouth, 3 times a day, PRN, # 90 tablet, Refills 1, Tot. Refills 1, Maintenance, NEEDED FOR PAIN, 10/22/22 15:19:00 EDT, Route to Pharmacy Electronically, [facility], 163, cm, 09/25/22 16:20:00 EDT, Height, 83, kg, 11/0... Start Date: 10/22/22 Status: Ordered Januvia 100 mg oral tablet 1 tablet, By Mouth, Daily, # 30 tablet, 11 Refills, Maintenance, 11/26/22 10:02:00 EDT, [facility], 163, cm, 11/20/22 16:00:00 EDT, Height, 83, kg, 02/11/22 19:19:00 EST, Dry Weight Start Date: 11/26/22 Status: Ordered lidocaine 5% topical film 1 patch, Topically, Daily, PRN Pain , Mild, remove after 12 hours, # 13 each, 5 Refills, Maintenance, 09/25/22 16:59:00 EDT, Film, [facility], Partial fill upon patient request if theprescription is for a schedule II opioid drug., 1 p... Start Date: 09/25/22 Status: Ordered Lidoderm 5% film 2 patch, Topically, Daily, remove patches after 12 hours; 2 patches to pain areas; can cut patches in half; do not excede 2 patches., # 60 patch, 4 Refills, Maintenance, 03/05/23 16:22:00 EST, [facility], Partial fill upon patient requ... Start Date: 03/05/23 Stop Date: 08/02/23 Status: Ordered lisinopril 20 mg oral tablet 20 mg, 1, tablet, By Mouth, Daily, # 90 tablet, Refills 3, Tot. Refills 3, Maintenance, 11/20/22 16:48:00 EDT, Route to Pharmacy Electronically, [facility], 163, cm, 11/20/22 16:00:00EDT, Height, 83, kg, 02/11/22 19:19:00 EST, Dry Weight Start Date: 11/20/22 Status: Ordered mirtazapine 30 mg oral tablet 1 tablet = 30 mg, By Mouth, Daily at bedtime, # 90 tablet, 1 Refills, Maintenance, 09/25/22 17:00:00 EDT, Tablet, [facility], Partial fill upon patient request if the prescription is for a schedule II opioid drug., 163, cm, 09/25/22 16... Start Date: 09/25/22 Status: Ordered omeprazole 40 mg oral enteric coated capsule 1 capsule, By Mouth, Daily, PRN NEEDED, # 90 capsule, 1 Refills, Maintenance, 11/25/22 10:53:00 EDT, [facility], 163, cm, 11/20/22 16:00:00 EDT, Height, 83, kg, 02/11/22 19:19:00 EST, Dry Weight Start Date: 11/25/22 Status: Ordered oxyCODONE 15 mg oral tablet 1 tablet = 15 mg, By Mouth, Every 8 hours, PRN Pain , Severe, MassPat checked. Opioid agreement at [facility], # 84 tablet, 0 Refills, Maintenance, 04/16/23 21:28:00 EST, [facility]/pharmacy #[id number], Partial fill upon patient request if [...] 01/27/23 9:28:00 EDT, Route to Pharmacy Electronically, [facility] 163, cm, 11/20/22 16:00:00 EDT, Height, 83, kg... Start Date: 01/27/23 Status: Ordered topiramate 25 mg oral capsule 2 capsule = 50 mg, By Mouth, Daily, take 1 cap daily x 2 weeks then 2 caps daily, # 60 capsule, 4 Refills, Maintenance, 03/05/23 16:23:00 EST, Capsule, [facility] Partial fill upon patient request if the prescription is for a schedule... Start Date: 03/05/23 Status: Ordered traZODone 50 mg oral tablet 1/2 TO 1 TABLET, By Mouth, Daily at bedtime, # 30 tablet, Refills 5, Tot. Refills 5, Maintenance, 02/18/23 14:55:00 EST, Route to Pharmacy Electronically, [facility] 163, cm, 11/20/22 16:00:00 EDT, Height, 83, kg, 02/11/22 19:19:00 ES... 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 [phone] Confirmed Active Syncope and collapse Confirmed Active [...] Team Personnel Name: Graciela Thrasher RN Position: [facility] [...] Primary Care Member Role: PCP Address: Address: [address] [place] [address]- Name: Joselyn Rain RN Position: [facility] Hospital Building Equipment Inspector Member Role: Primary Care Nurse Care Team Related Persons Name: IRA ROMERO Address: home [address] [place] [address] Name: JHON LARSON Address: [address] [place] [address] Name: JHON LARSON Address: [address] [place] [address] Name: GALO CATALAN Name: NANCY CATALAN Address: home [address] [place] [address]
--- OUTSIDE RECORDS SUMMARY | 2023-12-31 10:58 | XMS_ITS | Continuity of Care Document ---
Author Organization [facility] Address [address] [place] [id number] Care Team Providers Care Advisory Application Developer Name Role Phone Aaron GERARDO, Pura Mahajan Primary Care Phys[place] [facility] [place] - 08/28/[address] [id number] Attending Physician: Clarence Reynaga Admitting [...] influenza virus vaccine, inactivated 02/16/17 Give n [id number] 12y+ bivalent booster vax 01/30/22 Given SARS-CoV-2 mRNA ([id number]) vax 05/14/21 Given SARS-CoV-2 (COVID-19) mRNA BNT-162b2 [...] 03/05/23 16:21:00 EST, Route to Pharmacy Electronically, [facility], Partial fill upon patient request if the prescription is for a sched... Start Date: 03/05/23 Status: Ordered Advair Diskus 500 mcg-50 mcg inhalation powder 1, inhalation, Inhalation, 2 times a day, rinse mouth and throat after use, # 60 each, Refills 11, Tot. Refills 11, Maintenance, 08/13/23 20:46:00 EDT, Inhaler, Route to Pharmacy Electronically, [id number], [facility]... Start Date: 08/13/23 Status: Ordered All Day Allergy 10 mg oral tablet 1 tablet, By Mouth, Daily, # 90 tablet, 3 Refills, Maintenance, 08/13/23 20:47:00 EDT, [facility], 163, cm, 08/13/23 18:05:00 EDT, Height, 78, kg, 04/03/23 15:11:00 EST, Dry Weight Start Date: 08/13/23 Status: Ordered amLODIPine 10 mg oral tablet 10 mg, 1, tablet, By Mouth, Daily, # 30 tablet, Refills 4, Tot. Refills 4, Maintenance, 08/13/23 19:14:00 EDT, Route to Pharmacy Electronically, [facility], [...] 5 Refills, Maintenance, 07/08/23 15:30:00 EDT, Tablet, [facility] Partial fill upon patient request [...] tablet, 3 Refills, Maintenance, 03/05/2316:29:00 EST, Tablet, [facility], Partial fill upon patient request if the prescription is for a schedule II opioid drug., 2 tablet By... Start Date: 03/05/23 Status: Ordered duloxetine 20 mg oral enteric coated capsule 1 capsule, By Mouth, Daily at bedtime, # 30 capsule, 1 Refills, Maintenance, 05/07/23 17:40:00 EST,[facility], 163, cm, 05/07/23 16:54:00 EST, Height, 78, kg, 04/03/23 15:11:00 EST, Dry Weight Start Date: 05/07/23 Status: Ordered empagliflozin 10 mg oral tablet 1 tablet = 10 mg, By Mouth, Daily in AM, # 90 tablet, 3 Refills, Maintenance, 08/13/23 20:46:00 EDT, Tablet, [facility], Partial fill upon patient request [...] 1 each, 4 Refills, Maintenance,07/29/23 15:10:00 EDT, [facility], Partial fill upon patient request if the prescription is for a schedule II opioid drug., 1 spray eac... Start Date: 07/29/23 Status: Ordered Lidoderm 5% film 2 patch, Topically, Daily, remove patches after 12 hours; 2 patches to pain areas; can cut patches in half; do not excede 2 patches., # 180 patch, 3 Refills, Maintenance, 08/13/23 19:20:00 EDT, [facility], Partial fill upon patient req... Start Date: 08/13/23 Stop Date: 08/07/24 Status: Ordered lisinopril 20 mg oral tablet 20 mg, 1, tablet, By Mouth, Daily, # 90 tablet, Refills 3, Tot. Refills 3, Maintenance, 08/13/23 20:46:00 EDT, Route to Pharmacy Electronically, [facility], 163, cm, 08/13/23 18:05:00EDT, Height, 78, kg, 04/03/23 15:11:00 EST, Dry Weight Start Date: 08/13/23 Status: Ordered melatonin 10 mg oral tablet 1 tablet = 10 mg, By Mouth, Daily at bedtime, PRN as needed for insomnia, # 90 tablet, 3 Refills, Maintenance, 05/07/23 17:52:00 EST, Tablet, [facility], Partial fill upon patient request [...] 3 Refills, Maintenance, 04/22/23 20:57:00 EST, Tablet, [facility] Partial [...] 0 Refills, Maintenance, 08/13/23 19:13:00 EDT, Solution, [facility] Partial fill upon patient... Start Date: 08/13/23 Status: Ordered Mounjaro 5 mg/0.5 mL subcutaneous solution = 5 mg, Subcutaneous Injection, Every week, rotate injection sites; use Tirzepatide 0.25mg weekly x4 weeks then increase dose, # 4 each, 0 Refills, Maintenance, 08/13/23 19:14:00 EDT, Solution, [facility] Partial fill upon patient re... Start Date: 08/13/23 Status: Ordered omeprazole 40 mg oral enteric coated capsule 1 capsule, By Mouth, Daily, PRN GERD, # 90 capsule, 3 Refills, Maintenance, 04/22/23 21:00:00 EST, [facility] 163, cm, 04/03/23 15:11:00 EST, Height, 78, kg, 04/03/23 15:11:00 EST, Dry Weight Start Date: 04/22/23 Status: Ordered oxyCODONE 15 mg oral tablet 1 tablet = 15 mg, By Mouth, Every 8 hours, PRN Pain , Severe, MassPat checked. Opioid agreement at [facility], # 84 tablet, 0 Refills, Maintenance, 08/13/23 19:24:00 EDT, [facility]., Partial fill upon patient request [...] 05/11/23 8:53:00 EST, Route to Pharmacy Electronically, [facility] 163, cm, 05/07/23 16:54:00 EST, Height, 78, kg... Start Date: 05/11/23 Status: Ordered topiramate 100 mg oral tablet 1 tablet = 100 mg, By Mouth, Daily, increase dose, # 30 tablet, 4 Refills, Maintenance, 08/13/23 19:21:00 EDT, Tablet, [facility]., Partial fill upon patient request if the prescription is for a schedule II opioid drug., 163, cm, ... Start Date: 08/13/23 Status: Ordered triamcinolone 55 mcg/inh nasal spray 1 sprays = 55 mcg, Nares, Both, Daily, # 3 each, 3 Refills, Maintenance, 03/05/23 16:29:00 EST, [facility]., Partial fill upon patient request if the prescription is for a schedule II opioid drug., 1 sprays Nares, Both Daily, 163, cm, 1... Start Date: 03/05/23 Status: Ordered Trulicity Pen 1.5 mg/0.5 mL subcutaneous solution = 1.5 mg, Subcutaneous Infusion, Every week, # 4 each, 11 Refills, Maintenance, 08/14/23 12:21:00 EDT, [facility]., Partial fill upon patient request if the prescription is for a schedule II opioid drug., 163, cm, 08/13/23 18:05:00 EDT,... Start Date: 08/14/23 Status: Ordered Ventolin HFA 108 mcg/inh inhalation aerosol with adapter 2 puffs, Inhalation, 4 times a day, PRN for wheezing, # 1 each, 11 Refills, Maintenance, 05/07/23 17:55:00 EST, 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 [phone] Confirmed Active Perianal abscess Confirmed Active Syncope and collapse Confirmed Active Tobacco dependence Confirmed Active DM2 (diabetes mellitus, type 2) Confirmed 04/03/17 Active Incontinence of urine 4 Confirmed Active 1seen on MRI 10/2016, rec repeat imaging in October 2017 pain managemnt team/ Dr Diop indicated they thought pain was fibromyalgia 3[place] on CT [place] [facility] [place] [...] Care Nurse Name: Graciela Munroe RN Position: [facility] RN Member Role: Primary Care Nurse Name: Nichole Pichardo RN Position: [facility] RN Member Role: Primary Care Nurse Name: Melvin Whitfield RN Position: [facility] AMB Nurse Member Role: Primary Care Nurse Name: Phuong Berkowitz RN Position: [facility] RN Member Role: Primary Care Nurse Name: Pura Walker MD Position: [facility] Physician - Primary Care Member Role: PCP Address: Address: [address] [place] [id number] Name: Koffi PETERSON, Joselyn Position: [facility] Hospital Preflight Inspector Member Role: Primary Care Nurse Care Team Related Persons Name: PRASHANT ROMEROHANIE Address: home [address] [place] [address] Name: JHON LARSON Address: home [address] [place] [address] Name: JHON LARSON Address: [address] [place] [address] Name: GALO CATALAN Name: NANCY CATALAN Address: home [address] [place] [address]
--- OUTSIDE RECORDS SUMMARY | 2023-12-31 10:58 | XMS_ITS | Patient Health Record ---
Author Organization [facility] Address [address], [place] [id number] Support Name Relationship Address Phone [facility] Contact [address] [place] [address] Josie Poole Guarantor Unknown [phone] ALLERGIES Allergen (clinical drug ingredient) Drug/Non Drug [...] End Date [facility] [address] [place] [address] [id number] Josie Poole Self - patient is the insured MEDICAL (GENERAL) HISTORY Medical History History ICD Code Asthma
[2023-12-31 11:00] VITALS: BP 113/86; PULSE 97; RESP 15; O2SAT 95
--- NOTE | 2023-12-31 11:25 | A.OFFVIS_ITS ---
Vital Signs 12/31/23 11:00 12/31/23 11:38 BP 113/86 130/77 Blood Pressure Location Lt brachial Lt brachial Position Sitting Sitting Respiration 15 17 Pulse 97 93 Pulse Source Pulse Oximeter Pulse Oximeter Pulse Oximetry (%) 95 98 Oxygen Delivery Method Room Air Room Air Comment Pre-op Post-op Intake Visit Reasons: Left theraputic SIJ inj Allergies morphine [From MS Contin] Allergy (Verified 05/08/23 11:07) Itching pregabalin [From Lyrica] Allergy (Verified 05/08/23 11:07) Unknown quetiapine [From Seroquel] Allergy (Verified 05/08/23 11:07) Swelling HPI HPI Left theraputic SIJ inj: Details: Patient presents for scheduled procedure. Denies any recent cough, cold, infection, fever or other significant changes in medical history since last office visit. [facility] Medical History Diabetes GERD (gastroesophageal reflux disease) Bipolar 1 disorder Anxiety Depression Numbness Sleep apnea Asthma Elevated cholesterol HTN (hypertension) Surgical History (Updated 12/09/22 @ 16:11 by SYLVIE Wise) History of back surgery Hx of knee surgery Hx of carpal tunnel repair Hx of cholecystectomy Hx of section Social History Are you a primary chiropractic care to a significant other at home: No Do you presently have visiting nurse or other home services: Yes Patient Tobacco Use Status: Current everyday Tobacco user Tobacco use type: Cigarette Cigarettes Per Day: 10 Office Procedures Joint Injection/Aspiration Joint Injection/Aspiration Details: Therapeutic Sacroiliac Joint Injection, LEFT The procedure, its benefits, and its risks were explained and written informed consent was obtained from the patient. Immediately prior to starting the procedure, a time-out safety check was conducted. The patient's identification, procedure name, procedure site, and procedure laterality were confirmed with the patient. ? Patient was placed prone on the fluoroscopy table and the lumbosacral area was prepped using ChloraPrep and draped with sterile drapein standard fashion. The C-arm was rotated in a contralateral oblique fashion until the medial border of the iliac crest no longer foreshadowed the posterior sacroiliac joint line. The skin and subcutaneous tissue was anesthetized using 1 mL of 0.75% plain lidocaine with 1.5-inch 25-gauge needle in the middle region of the joint line.? A 3.5-inch 22-gauge spinal needle with small bend on the tip was slowly advanced towards the joint line, coaxial to the x-ray beam. Once bony content was obtained, the needle was easily slid into the intra-articular space.? Intra- articular needle position was confirmed using lateral fluoroscopy.? A total volume of 2.5mL of solution containing 40 mg triamcinolone and rest 0.5% of ropivacaine was injected intra-articularly. The stylet was reinserted and needle was removed. The patient tolerated the procedure well. Patient denied any lower extremity weakness or numbness. Patient was observed for 30 min and was discharged after fulfilling the standard discharge criteria. Coding 77552 - Sacroiliac Procedure code (CPT) selection complete Assessment & Plan Assessment & Plan (1) Sacroiliac joint dysfunction: Code(s): M53.3 - Sacrococcygeal disorders, not elsewhere classified Category: Medical Plan Patient is status post therapeutic left SI joint injection. Patient tolerated procedure well and was discharged home in stable condition with discharge instructions. All questions were answered. We will follow-up via telephone or in clinic to assess response to therapy. A follow-up appointment was made during today's visit. Orders: Orders FL guidance in treatment room Today M53.3 - Sacrococcygeal disorders, not elsewhere classified Coding Level of Care Code Procedure Only Diagnoses Sacroiliac joint dysfunction M53.3 CPT Codes Coding - Joint 9: 21722 - Sacroiliac ([id number])
[2023-12-31 11:38] VITALS: BP 130/77; PULSE 93; RESP 17; O2SAT 98
== END 2023-12-31 11:41 | disposition home or self-care (01) ==
LOC: HO.PMCPRC 10:41
PROVIDERS: PCP Family Medicine; Visit Provider Internal Medicine
DX: M53.3 Sacrococcygeal disorders, not elsewhere classified (principal)
CPT/HCPCS: 27096

== ENCOUNTER 2024-01-05 11:40 | Emergency (ER) | payer OTHER, SELFPAY ==
[2024-01-05 12:02] VITALS: BP 132/84; PULSE 109; RESP 18; TEMP 36.6; O2SAT 97; BMI 25.7
--- NOTE | 2024-01-05 12:03 | ED_ITS ---
HPI - General Adult General Chief complaint: Skin/Abscess/Foreign Body Stated complaint: Abscess L leg Time Seen by Provider: 01/05/24 18:33 Source: patient Mode of arrival: ambulatory Limitations: no limitations History of Present Illness ED Provider: DR. Can HPI narrative: 53-year-old female came in for evaluation of right buttock abscess and left side groin abscesses started 3-4 days ago [facility] B[facility]rim returned today for pain in those 2 location, no fever, no chills. Patient is prone to skin abscesses in the past As runs in the family, declined using IV drugs. Related Data Home Medications ?Medication ?Instructions ?Recorded ?Confirmed acetaminophen 325 mg tablet 650 mg PO TID PRN Headache 09/25/22 05/08/23 albuterol sulfate 2.5 mg/3 mL 2.5 mg inhalation BID PRN Wheezing 09/25/22 05/08/23 (0.083 %) solution for nebulization amlodipine 5 mg tablet 5 mg PO DAILY 09/25/22 05/08/23 cetirizine 10 mg tablet 10 mg PO DAILY 09/25/22 05/08/23 cholecalciferol (vitamin D3) 125 125 mcg PO DAILY 09/25/22 05/08/23 mcg (5,000 unit) tablet clonazepam 0.5 mg tablet 0.5 mg PO BID PRN Anxiety 09/25/22 05/08/23 clonidine HCl 0.3 mg tablet 0.3 mg PO BEDTIME 09/25/22 05/08/23 dulaglutide 0.75 mg/0.5 mL 0.75 mg subcut QWEEK 09/25/22 05/08/23 subcutaneous pen injector (Trulicity) duloxetine 60 mg capsule,delayed 120 mg PO DAILY 09/25/22 05/08/23 release empagliflozin 10 mg tablet 10 mg PO DAILY 09/25/22 05/08/23 (Jardiance) fluticasone 500 mcg-salmeterol 50 1 ea inhalation DAILY 09/25/22 05/08/23 mcg/dose blistr powdr for inhalation (Advair Diskus) fluticasone propionate 50 2 spray intranasal DAILY 09/25/22 05/08/23 mcg/actuation nasal spray,suspension ibuprofen 800 mg tablet 800 mg PO Q8H PRN Pain 09/25/22 05/08/23 insulin glargine 100 unit/mL 40 unit subcut BEDTIME PRN 09/25/22 05/08/23 subcutaneous solution (Lantus Hyperglycemia U-100 Insulin) lidocaine 5 % topical patch 1 patch topical DAILY 09/25/22 05/08/23 lisinopril 20 mg tablet 20 mg PO DAILY 09/25/22 05/08/23 mirtazapine 30 mg tablet 30 mg PO BEDTIME 09/25/22 05/08/23 omeprazole 40 mg capsule,delayed 40 mg PO DAILY 09/25/22 05/08/23 release oxycodone 15 mg tablet 15 mg PO TID PRN Pain 09/25/22 05/08/23 prazosin 2 mg capsule 2 mg PO BEDTIME 09/25/22 05/08/23 sennosides 8.6 mg-docusate sodium 2 tab PO BEDTIME 09/25/22 05/08/23 50 mg tablet (Senna Plus) tizanidine 4 mg tablet 4 mg PO TID 09/25/22 05/08/23 trazodone 50 mg tablet 50 mg PO BEDTIME 09/25/22 05/08/23 Previous Rx's ?Medication ?Instructions ?Recorded ibuprofen 600 mg tablet 600 mg PO TID PRN fever or pain 04/04/23 #20 tabs oxycodone 5 mg tablet 5 mg PO BID PRN pain #7 tabs 04/04/23 sulfamethoxazole 800 1 tab PO BID #19 tabs 04/04/23 mg-trimethoprim 160 mg tablet (Bactrim DS) Allergies Allergy/AdvReac Type Severity Reaction Status Date / Time morphine [From MS Contin] Allergy Itching Verified 01/05/24 12:05 pregabalin [From Lyrica] Allergy Unknown Verified 01/05/24 12:05 quetiapine [From Seroquel] Allergy Swelling Verified 01/05/24 12:05 Review of Systems Review of Systems: All other systems are reviewed and are negative Constitutional: Reports as per HPI and Reports no additional constitutional complaints Eyes: Reports as per HPI and Reports no additional eye complaints Reports system reviewed and no additional complaints, except as documented Cardiovascular: Reports as per HPI and Reports no additional cardiovascular complaints Respiratory: Reports as per HPI and Reports no additional respiratory complaints Gastrointestinal: Reports as per HPI and Reports no additional gastrointestinal complaints Genitourinary: Reports no additional female genitourinary complaints Musculoskeletal: Reports no additional musculoskeletal complaints Skin/Breast: Reports system reviewed and no additional complaints, except as docu Psychiatric: Reports no additional psychiatric complaints Endocrine: Reports no additional endocrine complaints Hematologic/Lymphatic: Reports no additional hematologic/lymphatic complaints Allergic/Immunologic: Reports no additional allergic/immunologic complaints Reports system reviewed and no additional complaints, except as documented and Reports Abnormal speech present [facility] Past Medical History Medical History Diabetes GERD (gastroesophageal reflux disease) Bipolar 1 disorder Anxiety Depression Numbness Sleep apnea Asthma Elevated cholesterol HTN (hypertension) Surgical History History of back surgery Hx of knee surgery Hx of carpal tunnel repair Hx of cholecystectomy Hx of section Social History Social History Are you a primary housekeeper child care to a significant other at home: No Do you presently have visiting nurse or other home services: Yes Patient Tobacco Use Status: Current everyday Tobacco user Tobacco use type: Cigarette Cigarettes Per Day: 10 Advance Directives: No Advance Directives Information Provided: No Do you have a plan to hurt others: No Plan Physical Exam ED Vital Signs: Vital Signs - 24 hr 01/05/24 12:02 Temperature 97.9 F Pulse Rate 109 H Respiratory Rate 18 Blood Pressure 132/84 Pulse Oximetry 97 Oxygen Delivery Method Room Air BMI result Body Mass Index 25.7 Vital signs have been reviewed and appear to be correct. Blood pressure elevated. Heart rate normal. Respiratory rate normal. Temperature normal. Oxygen saturation normal. Appearance: Alert. Oriented X3. No acute distress. Head: Normal external exam. Normocephalic. Atraumatic. No Reynoso signs noted. No raccoon eyes noted Eyes: PERRLA. EOMI. Conjunctiva and sclera normal. Eyelids normal. ENT: TM's Normal. Pharynx normal. Uvula midline. Moist mucous membranes. No trismus noted. No drooling noted. No muffled voice noted. Neck: Normal inspection. Neck supple. FROM. No adenopathy. Thyroid Normal. No meningeal signs. No neck mass noted. CVS: Normal heart rate and rhythm. Heart sound normal. No murmurs noted. Pulses normal throughout. Respiratory: No respiratory distress. Painless inspiration. Breath sounds normal. No wheezes/rales/rhonchi noted. Chest nontender. No accessory muscle usage noted or decreased air movement noted. Abdomen: Soft and nontender. Bowel sounds normal in all 4 quadrants. No distention noted. No organomegaly noted. No visible injury noted. Back: No CVA tenderness. Full range of motion noted. Skin: Skin warm and dry. Normal skin color. Normal skin turgor. No rashes/lesions/lacerations noted. Extremities: In the presence of female corporate strategy associate in room patient has 3 x 3 cm area of fluctuation on right buttock area that is severely tender, another area of fluctuation 1 x 1 cm area of right groin area. Neuro: Oriented X 3. Cranial nerve exam: II-XII are grossly intact No motor deficit. No sensory deficit. Reflexes normal. Course Course Course Narrative: RME, this is a rapid medical exam performed by Joselo Simon please refer to primary provider for complete H&P- 53-year-old female presents for evaluation of ?abscess to my left lower buttocks. She reports 2 smaller ones to the right groin. The patient is currently taking Bactrim prescribed by her PCP Reevaluation(s) Reevaluation #1: S/p I&D of 2 abscesses in the right lower extremity. Time: 19:01 Medications Administered Discontinued Medications Generic Name Dose Route Start Last Admin Trade Name Freq PRN Reason Stop Dose Admin Lidocaine HCl 10 ml 01/05/24 18:39 01/05/24 18:44 Lidocaine Hcl 1 % Mpf 5 Ml Vial SUBCUT 01/05/24 18:40 10 ml ONCE ONE Administration Procedures Abscess I/D Site: lower extremity Side (if applicable): right Local Anesthetic: lidocaine 1% Amount of anesthesia used (mL): 10 Technique: incised with blade Amount of fluid expressed (mL): 4 Sent for culture/gram staining?: No Irrigation: No Packing used?: none Medical Decision Making Differential Diagnosis Differential Diagnoses: The differential diagnosis associated with the presentation includes ( right lower extremity abscess, cellulitis.) Admission/Observation Consideration of admission/observation: Escalation of care including admission/observation considered Discharge Plan Discharge Clinical Impression: Abscess of buttock, right Patient Disposition: Home, Self-Care Instructions: Incision and Drainage (ED) Prescriptions: No Action insulin glargine [Lantus U-100 Insulin] 100 unit/mL solution 40 unit subcut BEDTIME PRN (Reason: Hyperglycemia) Patient Comments: 10 units lantus last pm Dose Change Rx Instructions: if Blood sugar is greater that 140 duloxetine 60 mg capsule,delayed release(DR/EC) 120 mg PO DAILY cetirizine 10 mg tablet 10 mg PO DAILY tizanidine 4 mg tablet 4 mg PO TID cholecalciferol (vitamin D3) 125 mcg (5,000 unit) tablet 125 mcg PO DAILY fluticasone propionate 50 mcg/actuation [place],Suspension 2 spray INTRANASAL DAILY Rx Instructions: administer into each nostril fluticasone propion-salmeterol [Advair Diskus] 500-50 mcg/dose blister with device 1 ea inhalation DAILY sennosides-docusate sodium [Senna Plus] 8.6-50 mg tablet 2 tab PO BEDTIME oxycodone 15 mg tablet 15 mg PO TID PRN (Reason: Pain) lidocaine 5 % adhesive patch,medicated 1 patch topical DAILY prazosin 2 mg capsule 2 mg PO BEDTIME clonazepam 0.5 mg tablet 0.5 mg PO BID PRN (Reason: Anxiety) mirtazapine 30 mg tablet 30 mg PO BEDTIME albuterol sulfate 2.5 mg /3 mL (0.083 %) solution for nebulization 2.5 mg inhalation BID PRN (Reason: Wheezing) Trulicity 0.75 mg/0.5 mL Pen Injector 0.75 mg SUBCUT QWEEK Rx Instructions: thursday acetaminophen 325 mg Tablet 650 mg PO TID PRN (Reason: Headache) omeprazole 40 mg Capsule,Delayed Release(Dr/Ec) 40 mg PO DAILY trazodone 50 mg tablet 50 mg PO BEDTIME ibuprofen 800 mg Tablet 800 mg PO Q8H PRN (Reason: Pain) lisinopril 20 mg tablet 20 mg PO DAILY clonidine HCl 0.3 mg tablet 0.3 mg PO BEDTIME amlodipine 5 mg tablet 5 mg PO DAILY Jardiance 10 mg tablet 10 mg PO DAILY oxycodone 5 mg tablet 5 mg PO BID PRN (Reason: pain) Qty: 7 0RF Rx Instructions: Partial Fill upon patient request. ibuprofen 600 mg tablet 600 mg PO TID PRN (Reason: fever or pain) Qty: 20 0RF sulfamethoxazole-trimethoprim [Bactrim DS] 800-160 mg tablet 1 tab PO BID Qty: 19 0RF Print Language: Macedonian
--- OUTSIDE RECORDS SUMMARY | 2024-01-05 16:43 | XMS_ITS | Continuity of Care Document ---
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 Name Role Phone Pura Walker MD Primary Care Physician Encounter [facility] [place] Date(s): 01/02/24 - 01/02/[address] [address]- Encounter Diagnosis Cellulitis of perineum(Final) - 01/02/24 Discharge Disposition: A-D/C Home Attending Physician: Rei Castañeda DO Admitting Physician: Rei Castañeda DO Referring Physician: Not on Staff, Referring [...] influenza virus vaccine, inactivated 02/16/17 Give n [id number] 12y+ bivalent booster vax 01/30/22 Given SARS-CoV-2 mRNA (yktzbwm-[id number]-boels) vax 05/14/21 Given SARS-CoV-2 (COVID-19) mRNA BNT-162b2 [...] tablet, Refills 3, Tot. Refills 3, Maintenance, 12/15/23 15:32:00 EDT, Route to Pharmacy Electronically, [facility], Partial fill upon patient request if the prescription is for a sched... Start Date: 12/15/23 Status: Ordered Advair Diskus 500 mcg-50 mcg inhalation powder 1, inhalation, Inhalation, 2 times a day, rinse mouth and throat after use, # 60 each, Refills 11, Tot. Refills 11, Maintenance, 08/13/23 20:46:00 EDT, Inhaler, Route to Pharmacy Electronically, [id number], [facility]-... Start Date: 08/13/23 Status: Ordered [...] tablet, Refills 3, Tot. Refills 3, Maintenance, 12/15/23 15:32:00 EDT, Route to Pharmacy Electronically, [facility], Partial fill upon patient request if the prescription is for a schedule II opi... Start Date: 12/15/23 Status: Ordered atorvastatin 40 mg oral tablet 1 tablet = 40 mg, By Mouth, Daily, # 90 tablet, 3 Refills, Maintenance, 08/13/23 20:46:00 EDT, Tablet, [facility] Partial fill upon patient request if the prescription is for a schedule II opioid drug., 163, cm, 08/13/23 18:05:00 EDT,... Start Date: 08/13/23 Status: Ordered Augmentin 875 mg-125 mg oral tablet 1 tablet, By Mouth, Every 12 hours, for 7 days, # 14 tablet, 0 Refills, Acute 01/09/24 12:49:00 EDT, 01/02/24 12:49:00 EDT, Tablet, [facility] Partial fill upon patient request if the prescription is for a schedule II opioid drug., 16... Start Date: 01/02/24 Stop Date: 01/09/24 Status: Ordered AutoCPAP 10-15 AutoCPAP 10-15, See Instructions, # 1 each, Refills 0, Tot. Refills 0, Maintenance, use overnight and naps from [employer], 07/29/23 15:28:00 EDT, Compound Start Date: 07/29/23 Status: Ordered Bactrim DS 800 mg-160 mg oral tablet 1 tablet, By Mouth, 2 times a day, for 7 days, # 14 tablet, 0 Refills, Acute 01/09/24 12:35:00 EDT,01/02/24 12:35:00 EDT, Tablet, [facility] Partial fill upon patient request if theprescription is for a schedule II opioid drug., 1 t... Start Date: 01/02/24 Stop Date: 01/09/24 Status: Ordered cloNIDine 0.3 mg oral tablet 1 tablet = 0.3 mg, By Mouth, 2 times a day, prn anxiety, # 180 tablet, 0 Refills, Maintenance, 12/15/23 15:21:00 EDT, Tablet, Partial fill upon patient request if the prescription is for a schedule II opioid drug. Start Date: 12/15/23 Status: Ordered clotrimazole 1% topical cream 1 applicator, Topically, 2 times a day, # 15 Gm, 2 Refills, Maintenance, 12/28/23 12:51:00 EDT, [facility] 1 applicator Topically 2 times a day,x7 days, 163, cm, 12/15/23 15:02:00 EDT, Height, 78, kg, 04/03/23 15:11:00 EST, Dry Weight Start Date: 12/28/23 Stop Date: 01/18/24 Status: Ordered diclofenac 1% topical gel 1 application, Topically, 4 times a day, # 100 Gm, 4 Refills, Maintenance, 12/15/23 15:32:00 EDT, Gel, [facility]., Partial fill upon patient request if the prescription is for a schedule II opioid drug., 163, cm, 12/15/23 15:02:00 EDT,... Start Date: 12/15/23 Status: Ordered docusate-senna 50 mg-187 mg oral tablet 2 tablet, By Mouth, 2 times a day, PRN Constipation, # 360 tablet, 3 Refills, Maintenance, 12/14/2414:32:00 EDT, Tablet, [facility]., Partial fill upon patient request if the prescription is for a schedule II opioid drug., 2 tablet By... Start Date: 12/15/23 Status: Ordered duloxetine 20 mg oral enteric coated capsule 1 capsule = 20 mg, By Mouth, Daily, # 180 capsule, 0 Refills, Maintenance, 12/15/23 15:22:00 EDT, EC Capsule, Partial fill upon patient request if the prescription is for a schedule II opioid drug. Start Date: 12/15/23 Status: Ordered empagliflozin 25 mg oral tablet 1 tablet = 25 mg, By Mouth, Daily in AM, # 90 tablet, 1 Refills, Maintenance, 11/06/23 14:33:00 EDT, Tablet, [facility] Partial fill upon patient request [...] 15:11:00 EST,... Start Date: 08/13/23 Status: Ordered ibuprofen 800 mg oral tablet 1, tablet, By Mouth, 3 times a day, PRN, use sparingly, can cause stomach ulcers and kidney failure, # 90 tablet, Refills 0, Tot. Refills 0, Maintenance, NEEDED FOR PAIN, 12/25/23 17:06:00 EDT, Route to Pharmacy Electronically, [facility]... Start Date: 12/25/23 Status: Ordered ipratropium nasal 21 mcg/inh spray See Instructions, PRN Nasal Congestion, 1 spray each nostril BID, # 1 each, 4 Refills, Maintenance,07/29/23 15:10:00 EDT[facility] fill upon patient request [...] bedtime, # 30 tablet, 0 Refills, Maintenance, 12/15/23 15:22:00 EDT, Tablet, Partial fill upon patient request if the prescription is for a schedule II opioid drug. Start Date: 12/15/23 Status: Ordered MorPHINE Inj 4 mg, Injection, IV Push Slowly, Every 20 minutes for 4 doses/times, PRN for Pain , Moderate, STAT,01/02/24 8:37:00 EDT, Stop date Limited # of times Start Date: 01/02/24 Stop Date: 01/03/24 Status: Discontinued Mounjaro 5 mg/0.5 mL subcutaneous solution = 5 mg, Subcutaneous Injection, Every week, rotate injection sites; use Tirzepatide 0.25mg weekly x4 weeks then increase dose, # 4 each, 4 Refills, Maintenance, 10/22/23 20:13:00 EDT, Solution, [facility], Partial fill upon patient re... Start Date: 10/22/23 Status: Ordered Mounjaro 5 mg/0.5 mL subcutaneous solution = 5 mg, Subcutaneous Injection, Every week, d/c dulaglutide, # 4 each, 4 Refills, Maintenance, 09/21/23 13:38:00 EDT, Solution, [facility], Partial fill upon patient request if the prescription is for a schedule II opioid drug., 163, c... Start Date: 09/21/23 Status: Ordered omeprazole 40 mg oral enteric coated capsule 1 capsule, By Mouth, Daily, PRN GERD, # 90 capsule, 3 Refills, Maintenance, 04/22/23 21:00:00 EST, [facility] 163, cm, 04/03/23 15:11:00 EST, Height, 78, kg, 04/03/23 15:11:00 EST, Dry Weight Start Date: 04/22/23 Status: Ordered oxyCODONE 15 mg oral tablet 1 tablet = 15 mg, By Mouth, Every 8 hours, PRN Pain , Severe, [place] checked. Opioid agreement at [facility], # 84 tablet, 0 Refills, Maintenance, 12/31/23 18:27:00 EDT, [facility], Earliest refill date of 01/05/2024* Partial fill upon christopher... Start Date: 12/31/23 Stop Date: 01/27/99 Status: Ordered prazosin 2 mg oral capsule 1 capsule = 2 mg, By Mouth, Daily at bedtime, # 90 capsule, 0 Refills, Maintenance, 12/15/23 15:22:00 EDT, Capsule, Partial fill upon patient request if the prescription is for a schedule II opioid drug. Start Date: 12/15/23 Status: Ordered tiZANidine 4 mg oral tablet 1, tablet, By Mouth, 3 times a day, PRN, # 90 tablet, Refills 3, Maintenance, NEEDED FOR SEVERE PAIN, 10/09/23 13:08:00 EDT, Route to Pharmacy Electronically, [facility], 163, cm, 09/14/23 14:23:00 EDT, Height, 78, kg, 04/03/23 15:11:00 E... Start Date: 10/09/23 Status: Ordered topiramate 100 mg oral tablet 1 tablet = 100 mg, By Mouth, Daily, # 90 tablet, 3 Refills, Maintenance, 12/15/23 15:34:00 EDT, Tablet, [facility], Partial fill upon patient request if the prescription is for a schedule II opioid drug., 163, cm, 12/15/23 15:02:00 EDT... Start Date: 12/15/23 Status: Ordered traZODone 100 mg oral tablet 100 mg, 1, tablet, By Mouth, Daily at bedtime, # 30 tablet, Refills 4, Tot. Refills 4, Maintenance,12/15/23 15:14:00 EDT, Route to Pharmacy Electronically, [facility], Partial fill upon patient request if the prescription is for a anna marie... Start Date: 12/15/23 Status: Ordered triamcinolone 55 mcg/inh nasal spray 1 sprays = 55 mcg, Nares, Both, Daily, # 3 each, 3 Refills, Maintenance, 12/15/23 15:32:00 EDT, [facility], Partial fill upon patient request if the prescription is for a schedule II opioid drug., 1 sprays Nares, Both Daily, 163, cm, 0... 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 x1 draining fluid. Pt reports fluid was initially puss, now clear bloody. All areas painful. One on each side of perineum, one posterior.Reports subjective fevers at home. Using tylenol for pain, last dose last night; Reason: Other:; left groin labia major pain; Clinical Question(s): Other:; perineal abscess; Order Comment: TECHNIQUE: Spiral CT through the abdomen and pelvis with IV contrast formatted in 3 planes. 100 cc of Omnipaque 300 was administered intravenously. This study was performed without oral contrast. Weight-based protocol using automatic tube modulation was used to optimize exposure parameters. CTDIvol Body: 11.70 mGy, DLP Body: 726 mGy*cm. COMPARISON: CT abdomen pelvis 07/31/2023 FINDINGS: Straightener And Aligner View Findings, Lines and Tubes: None. Visualized Chest: Dependent atelectasis both lower lobes. No pleural effusion. The heart is normal in size. No pericardial effusion. Diaphragm: Normal. Liver: Normal size and attenuation. Focal fat infiltration adjacent to the falciform ligament. Gallbladder: Absent consistent with prior cholecystectomy. Bile ducts: No biliary ductal dilation. Spleen: Normal. Pancreas: Normal. Adrenal glands: Normal. Kidneys and ureters: No hydronephrosis, stones, or suspicious masses. Simple appearing renal cysts and hypodensities that are too small to characterize are noted, requiring no dedicated follow up. Bladder: Normal. Reproductive organs: Status post hysterectomy. No adnexal mass. Stomach, small bowel, and large bowel: Stomach is physiologically distended. 1.5 x 0.6 cm oval areaof high attenuation along the dependent portion of the fundus (41/201) without definite adjacent wall thickening. Small and large bowel are normal caliber without obstruction. Diffuse diverticulosis of the left hemicolon without diverticulitis. Mild stool retention. Appendix: Normal. Peritoneum and retroperitoneum: No ascites or pneumoperitoneum. No omental or mesenteric lesions. Minimal skin thickening of the peritoneum without significant fat stranding. No drainable fluid collection. Lymph nodes: No enlarged lymph nodes. Blood vessels: Mild vascular calcifications but no aneurysm. No evidence of venous thrombosis. Abdominal and pelvic wall: Small fat-containing umbilical hernia. Small probable calcified granuloma in the right gluteal soft tissues. Bones: No acute abnormality. IMPRESSION: 1. Minimal skin thickening of the perineum without a drainable fluid collection or abscess. 2. 1.5 x 0.6 cm oval area of high attenuation along the dependent portion of the fundus without definite adjacent wall thickening. The appearance is favored to represent an area of dependent ingesteddebris within the stomach, though a small polyp is difficult to exclude. Consider assessment with endoscopy or alternatively short-term follow-up CT with contrast. 3. Colonic diverticulosis. WSN: [id number] Ordering Physician: Rei Castañeda Dictated By: Byron Bernabe MD Dictated Date/Time: 01/02/24 11:58 a Reviewed By: Byron Bernabe MD Signed By: Byron Bernabe MD Signed Date/Time: 01/02/24 11:58 am Transcribed By: WILVER Transcribed Date/Time: 01/02/24 11:46 am Vital Signs Most recent to oldest [Reference Range]: 1 2 3 Height 163 cm (9/28/24 10:48 AM) 163 cm (01/02/24 10:25 AM) 163 cm (01/02/24 8:40 AM) Oxygen Saturation [94-100 %] 99 % (01/02/24 10:48 AM) 96 % (01/02/24 10:25 AM) 97 % (01/02/24 8:40 AM) Pulse Rate [55-90 bpm] 77 bpm (01/02/24 10:48 AM) 76 bpm (01/02/24 10:25 AM) 82 bpm (01/02/24 8:40 AM) Blood Pressure [90-138/55-84 mm Hg] 107/81mm Hg (01/02/24 10:48 AM) 139/82mm Hg *H* (01/02/24 10:25 AM) 127/82mm Hg (01/02/24 8:40 AM) Respiratory Rate [16-30 br/min] 19 br/min (01/02/24 10:48 AM) 18 br/min (01/02/24 10:48 AM) 18 br/min (01/02/24 10:25 AM) Temperature [96.8-100.4 DegF] 97.5 DegF (01/02/24 10:25 AM) 97.3 DegF (01/02/24 8:40 AM) 99.9 DegF (01/02/24 8:19 AM) Mode of Delivery (Oxygen) Room air (01/02/24 10:48 AM) Room air (01/02/24 10:25 AM) Room air (01/02/24 8:40 AM) Blood pressure sites Arm, left (01/02/24 10:48 AM) Arm, right (01/02/24 10:25 AM) Arm, left (01/02/24 8:40 AM) Temperature Route Oral (01/02/24 10:25 AM) Oral (01/02/24 8:40 AM) Oral (01/02/24 8:19 AM) Dry Weight 68.1 kg (01/02/24 10:48 AM) 68.1 kg (01/02/24 10:25 AM) 68.1 kg (01/02/24 8:40 AM) Dry Weight Obtained Via Patient/family s tated (01/02/24 5:41 AM) Social History Social History Type Response Tobacco Use: 4 or less cigar ettes(less than 1/4 pack)/day in last 30 days. Sex Note * Rei Castañeda DO: PERFORM Event Display: Patient Education Leaflets Authored Date: [id number] Cellulitis ?? [id number] Cellulitis Cellulitis is an infection of the deep layers of skin. A break in the skin, such as a cut or scratch, can let bacteria under the skin. Cellulitis causes the affected skin to become red, swollen, warm, and sore. The reddened areas havea border you can see. An open sore may leak fluid (pus). You may have a fever, chills, and pain. Cellulitis is treated with antibiotics taken for 7 to 10 days. An open sore may be cleaned and covered with cool wet gauze. Symptoms should get better 1 to 2 days after treatment is started. Make sure to take all the antibiotics for the full number of days until they are gone. Keep taking the medicine even if your symptoms go away. If not treated, cellulitis can get into the bloodstream and lymph nodes. The infection can then spread throughout the body. This causes serious illness. Home care Follow these tips: ??? Limit the use of the part of your body with cellulitis.? If the infection is on your leg, keep your leg raised while sitting. This helps reduce swelling. ??? Take all of the antibiotic medicine exactly as directed until it is gone. Don't miss any doses, especially duringthe first 7 days. Finish taking all of the medicine even when your symptoms get better. ??? Keep the affected area clean and dry. ??? Wash your hands with soap and clean, running water before and after touching your skin. Anyone else who touches your skin should also wash his or her hands. Don't share towels. ?? Follow-up care Follow up with your healthcare provider, or as advised. If your infection doesn't go away after finishing the first antibiotic, your healthcare provider will prescribe a different one. ?? When to seek medical advice Call your healthcare provider right away if any of these occur: ??? Red areas that spread ??? Swelling or pain that gets worse ??? Fluid leaking from the skin (pus) ??? Fever higher of 100.4?? F (38.0?? C) or higher after 2 days on antibiotics ?? Last Reviewed Date: 2021 ?? [id number] [employer], [employer]. All rights reserved. This information is not intended as a substitute for professional medical care. Always follow your healthcare professional's instructions. ?? Patient Care team information Care Team Personnel Name: Graciela Thrasher RN Position: [facility] RN Member Role: Primary Care Nurse Name: Stevie Angel RN Position: [facility] RN Member Role: Primary Care Nurse Name: Keily Ortega RN Position: [facility] RN Member Role: Primary Care Nurse Name: Graciela Munroe RN Position: [facility] RN Member Role: Primary Care Nurse Name: Nichole Pichardo RN Position: [facility] RN Member Role: Primary Care Nurse Name: Melvin Whitfield RN Position: [facility] AMB Nurse Member Role: Primary Care Nurse Name: Phuong Berkowitz RN Position: [facility] RN Member Role: Primary Care Nurse Name: Pura Walker MD Position: [facility] Physician - Primary Care Member Role: PCP Address: Address: [address] [place] [address] Name: Joselyn Rain RN Position: [facility] Hospital Primary Health Organisation Manager Member Role: Primary Care Nurse Care Team Related Persons Name: IRA ROMERO Address: home [address] [place] [address] Name: JHON LARSON Address: [address] [place] [address] Name: JHON LARSON Address: [address] [place] [address] Name: GALO CATALAN Name: NANCY CATALAN Address: home [address] [place] [address]
--- OUTSIDE RECORDS SUMMARY | 2024-01-05 16:51 | XMS_ITS | Patient Health Record ---
Author Organization [facility] Address [address], [place] [id number] Support Name Relationship Address Phone [employer] [facility] [address] [place] [address] Josie Poole Guarantor Unknown ALLERGIES Allergen (clinical [...] Insured Coverage Start Date Coverage End Date [facility] [address] [facility] [place] [phone] [id number] Josie Poole Self - patient is the insured MEDICAL (GENERAL) HISTORY Medical History History ICD Code Asthma
[2024-01-05] MEDS: Lidocaine HCl 1 % MPF 5 ML VIAL 10 ML SUBCUT (18:44)
[2024-01-05 19:07] VITALS: BP 132/84; PULSE 109; RESP 18; TEMP 36.6; O2SAT 97
== END 2024-01-05 19:10 | disposition home or self-care (01) ==
PROVIDERS: Emergency Provider Emergency Medicine; PCP Internal Medicine
DX: L02.31 Cutaneous abscess of buttock (principal); L02.214 Cutaneous abscess of groin; E11.9 Type 2 diabetes mellitus without complications; I10 Essential (primary) hypertension; E78.5 Hyperlipidemia, unspecified; Z79.4 Long term (current) use of insulin; Z79.85 Long-term (current) use of injectable non-insulin antidiabetic drugs; Z79.899 Other long term (current) drug therapy
CPT/HCPCS: 10061; 99282; 99284; J2003

== ENCOUNTER 2024-01-29 08:54 | Outpatient (AMB) | payer OTHER, SELFPAY ==
--- NOTE | 2024-01-29 09:06 | A.OFFVIS_ITS ---
Vital Signs 01/29/24 09:07 Height 5 ft 4 in Weight 160 lb BMI 27.5 BP 152/85 H Blood Pressure Location Lt brachial Position Sitting Respiration 16 Pulse 101 H Pulse Source Pulse Oximeter Pulse Oximetry (%) 92 Oxygen Delivery Method Room Air Intake Visit Reasons: s/p left theraputic SIJ inj Allergies morphine [From MS Contin] Allergy (Verified 02/12/24 13:55) Itching pregabalin [From Lyrica] Allergy (Verified 02/12/24 13:55) Unknown quetiapine [From Seroquel] Allergy (Verified 02/12/24 13:55) Swelling Medication List - Last Reconciled 01/29/24 by Robyn Watts LPN acetaminophen 650 mg PO TID PRN albuterol sulfate 2.5 mg inhalation BID PRN amlodipine 5 mg PO DAILY cetirizine 10 mg PO DAILY cholecalciferol (vitamin D3) 125 mcg PO DAILY clonazepam 0.5 mg PO BID PRN clonidine HCl 0.3 mg PO BEDTIME dulaglutide (Trulicity) 0.75 mg subcut QWEEK duloxetine 120 mg PO DAILY empagliflozin (Jardiance) 10 mg PO DAILY fluticasone propion-salmeterol 500-50 mcg/dose (Advair Diskus) 1 ea inhalation DAILY fluticasone propionate 50 mcg/actuation 2 sprays intranasal DAILY ibuprofen 600 mg PO TID PRN ibuprofen 800 mg PO Q8H PRN insulin glargine (Lantus U-100 Insulin) 40 units subcut BEDTIME PRN lidocaine 5% 1 patch topical DAILY lisinopril 20 mg PO DAILY mirtazapine 30 mg PO BEDTIME omeprazole 40 mg PO DAILY oxycodone 15 mg PO TID PRN oxycodone 5 mg PO BID PRN prazosin 2 mg PO BEDTIME sennosides-docusate sodium 8.6-50 mg (Senna Plus) 2 tabs PO BEDTIME sulfamethoxazole-trimethoprim 800-160 mg (Bactrim DS) 1 tab PO BID tizanidine 4 mg PO TID trazodone 50 mg PO BEDTIME HPI HPI s/p left theraputic SIJ inj: Details: 53-year-old female who presents today to the office for status post left therapeutic sacroiliac joint injection. She still continues to experience pain on the left side. The pain starts in her lower back and radiates down her leg. She underwent a left L4-5 pk-laminotomy, a partial facetectomy, and a foraminotomy on October 30, 2022. She underwent L3-4 left-sided decompression in 2021, for which she had excellent initial results before worsening again. She has diabetes mellitus and does not remember her last HbA1C. She is hesitant to try stimulation therapy. She reports headaches and pain in her neck that radiates to her shoulder and back. She feels like fluid accumulation in her head and feels heavy and moving. The pain is sharp in nature.? Past procedures 12/31/23: Therapeutic Sacroiliac Joint Injection, LEFT: No relief. 04/30/23: Right diagnostic and left therapeutic SIJ injections: 100% relief on the right side. 03/25/23: Sacroiliac Joint Injection, Left: 80% relief. [facility], [facility] Medical History Diabetes GERD (gastroesophageal reflux disease) Bipolar 1 disorder Anxiety Depression Numbness Sleep apnea Asthma Elevated cholesterol HTN (hypertension) Surgical History History of back surgery Hx of knee surgery Hx of carpal tunnel repair Hx of cholecystectomy Hx of section Social History Are you a primary medicare interviewer to a significant other at home: No Do you presently have visiting nurse or other home services: Yes Patient Tobacco Use Status: Current everyday Tobacco user Tobacco use type: Cigarette Cigarettes Per Day: 10 Review of Systems Const All systems reviewed & are unremarkable except as noted in HPI and below Physical Exam Vital Signs: Last Vital Signs Pulse 101 H 01/29/24 09:07 Resp 16 01/29/24 09:07 BP 152/85 H 01/29/24 09:07 Pulse Ox 92 01/29/24 09:07 Oxygen Delivery Method Room Air 01/29/24 09:07 BMI result Body Mass Index 27.5 General: Appears afebrile. Alert and oriented. Mood and affect appropriate. Follows and participates in conversation appropriately. Respiratory effort is unlabored. Able to transition from sit to stand unassisted. Ambulates with bilaterally normal heel strike and toe off. Results Reviewed Results Reviewed: No imaging is available for review. Assessment & Plan Assessment & Plan (1) Cervical spondylosis: Code(s): M47.812 - Spondylosis without myelopathy or radiculopathy, cervical region Category: Medical (2) Left lumbar radiculopathy: Code(s): M54.16 - Radiculopathy, lumbar region Category: Medical (3) Post laminectomy syndrome: Code(s): M96.1 - Postlaminectomy syndrome, not elsewhere classified Category: Medical Plan 53-year-old female with prior history of L3-4 and L5-S1 back surgery with the left lower back pain that radiates down to the left leg. She does not seem to be having any sacroiliac joint-related symptoms. At this time, symptoms are likely secondary to lumbar radiculopathy in the setting of a prior pk-laminectomy. We will plan for left L4 transforaminal epidural steroid injection for lumbar radicular symptoms. I counseled her regarding controlling her diabetes mellitus with exercises and diet management to keep her HbA1C as low as possible. I offered her spinal cord stimulator as a therapeutic option in setting up her diabetes mellitus to avoid any further injections. The patient does not want any implants at this time. Discussed the risks and benefits of the procedure with the patient in detail. All questions were answered. The patient is on board with the plan. Justification for interventional therapy: ? Patient with average pain > 6/10 ? Patient has exhausted conservative therapy. ? Patient unable to tolerate physical therapy due to pain. . Patient has a good understanding of their pain condition and has appropriate mental and social support She also complains of cervicogenic headaches that originate in her neck and radiate up towards her occipital and orbits. I ordered a trial of physical therapy for cervical spondylosis to see if that might help with her headache situation. Scribed for Dr. Maza by Trino Sanchez, biomedical analytical scientist, on 01/29/2024. I, Dr. Maza, have personally reviewed and agree with the information entered by the scribe. Orders: Orders PT Evaluation and Treatment 01/29/24 M47.812 - Spondylosis without myelopathy or radiculopathy, cervical region Coding Level of Care Code Est Pt Level 3 (01631) Diagnoses Cervical spondylosis M47.812 Left lumbar radiculopathy M54.16 Post laminectomy syndrome M96.1
[2024-01-29 09:07] VITALS: BP 152/85; PULSE 101; RESP 16; O2SAT 92; BMI 27.5
== END 2024-01-29 09:53 | disposition home or self-care (01) ==
PROVIDERS: PCP Family Medicine; Visit Provider Internal Medicine
DX: M47.812 Spondylosis without myelopathy or radiculopathy, cervical region (principal); M54.16 Radiculopathy, lumbar region; M96.1 Postlaminectomy syndrome, not elsewhere classified
CPT/HCPCS: 99213

== ENCOUNTER → 2024-01-29 08:54 | Outpatient (BNVA) | payer OTHER, SELFPAY | PROVIDERS: PCP Family Medicine; Visit Provider Internal Medicine | DX: M47.812 Spondylosis without myelopathy or radiculopathy, cervical region (principal); M54.16 Radiculopathy, lumbar region; M96.1 Postlaminectomy syndrome, not elsewhere classified; G44.86 Cervicogenic headache | CPT/HCPCS: 99212 ==

== ENCOUNTER 2024-02-12 13:32 | Outpatient (AMB) | payer OTHER, SELFPAY ==
--- NOTE | 2024-02-12 13:54 | A.SPINEOV_ITS ---
Intake Visit Reasons: neck pain/pinch nerve Intake Note: Ms. Virgilio Silvestre is here today c/o neck pain/pinched nerve. 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 The patient states that she went to the emergency room at [facility] for headaches. The headaches start at the posterior neck then radiate to the front of her head. Her left side of face started twitching, which made her scared and therefore she went to [facility]. She was worked up with MRIs of the brain and cervical spine. She was discharge and advised to get an occipital nerve block in the near future. She comes by for a 2nd opinion. I reviewed the MRI of the brain and cervical spine and do not see any significant abnormalities. The patient is suffering from tension headaches. On further questioning, she admits that she has been taking Tylenol on a regular basis and I am wondering if this patient is suffering from energetic induced headaches. To exclude this diagnosis I advised her to stop any form of anti-inflammatories and Tylenol for 2 weeks to see if this will eliminate the headaches. If this does not help then I would advise the occipital nerve block as well. I spent 25 minutes in his consult to review imaging and to discuss plan of care. Perez Colmenares MD, PhD Spine Fellowship Trained Neurosurgeon Director, [facility] Coding Level of Care Code Est Pt Level 3 (85643) Diagnoses Tension headache G44.209
== END 2024-02-12 14:37 | disposition home or self-care (01) ==
PROVIDERS: PCP Family Medicine; Visit Provider Neurological Surgery
DX: G44.209 Tension-type headache, unspecified, not intractable (principal)
CPT/HCPCS: 99213

== ENCOUNTER → 2024-02-12 13:32 | Outpatient (BNVA) | payer OTHER, SELFPAY | PROVIDERS: PCP Family Medicine; Visit Provider Neurological Surgery | DX: G44.209 Tension-type headache, unspecified, not intractable (principal) | CPT/HCPCS: 99212 ==

== ENCOUNTER 2024-02-18 06:17 | Outpatient (REF) | payer OTHER, SELFPAY | END 2024-02-18 06:18 | disposition home or self-care (01) | LOC: CF 06:17 | PROVIDERS: Visit Provider Internal Medicine | DX: M96.1 Postlaminectomy syndrome, not elsewhere classified (principal); M54.16 Radiculopathy, lumbar region | CPT/HCPCS: 64483; J1100; J2003; Q9967 ==

== ENCOUNTER 2024-02-18 10:11 | Outpatient (AMB) | payer OTHER, SELFPAY ==
[2024-02-18 10:20] VITALS: BP 122/83; PULSE 82; O2SAT 96
--- NOTE | 2024-02-18 10:20 | A.OFFVIS_ITS ---
Vital Signs 02/18/24 10:20 02/18/24 11:07 BP 122/83 114/84 Blood Pressure Location Lt brachial Lt brachial Position Sitting Sitting Pulse 82 72 Pulse Source Pulse Oximeter Pulse Oximeter Pulse Oximetry (%) 96 96 Oxygen Delivery Method Room Air Room Air Intake Visit Reasons: Left L4 TFESI Allergies morphine [From MS Contin] Allergy (Verified 02/12/24 13:55) Itching pregabalin [From Lyrica] Allergy (Verified 02/12/24 13:55) Unknown quetiapine [From Seroquel] Allergy (Verified 02/12/24 13:55) Swelling HPI HPI Left L4 TFESI: Details: Patient presents for scheduled procedure. Denies any recent cough, cold, infection, fever or other significant changes in medical history since last office visit. [facility] Medical History Diabetes GERD (gastroesophageal reflux disease) Bipolar 1 disorder Anxiety Depression Numbness Sleep apnea Asthma Elevated cholesterol HTN (hypertension) Surgical History History of back surgery Hx of knee surgery Hx of carpal tunnel repair Hx of cholecystectomy Hx of section Social History Are you a primary rn palliative care to a significant other at home: No Do you presently have visiting nurse or other home services: Yes Patient Tobacco Use Status: Current everyday Tobacco user Tobacco use type: Cigarette Cigarettes Per Day: 10 Physical Exam Vital Signs: Last Vital Signs Pulse 82 02/18/24 10:20 BP 122/83 02/18/24 10:20 Pulse Ox 96 02/18/24 10:20 Oxygen Delivery Method Room Air 02/18/24 10:20 Office Procedures Details: Transforaminal epidural steroid injection, left L4 After obtaining written consent, pre-procedure blood pressure and heart rate were stable and recorded in the nursing record. The patient was placed in the prone position on the fluoroscopy table. The lumbosacral area was prepped with chloraprep, allowed to dry and draped in sterile fashion. Using fluoroscopy, the skin overlying our target was anesthetized with 0.5% lidocaine. A 22 gauge 3.5 inch spinal needle was advanced to the safe triangle in the upper pole of the left L4 foramen. No paresthesias were elicited with needle placement and aspiration was negative for blood and CSF. Correct needle position was confirmed with approximately 1 ml contrast dye (Omnipaque 180 mg/ml) injected under real-time fluoroscopy. No evidence of vascular or intrathecal uptake was seen and there was both epidural and periph eral spread of the contrast agent, with some perineural streaking. 10 mg dexamethasone plane without local anesthetic was slowly injected. The needle was flushed and removed. The skin was cleansed and a sterile bandages were applied. The patient tolerated the procedure well and no complications were encountered. Following the procedure the patient's vital signs were stable. The patient was discharged home in good condition with post-procedural instructions. Time Out: Immediately prior to the procedure, the following was verbally confirmed that there is a signed consent form and that the correct patient, planned procedure, site and side are consistent with documentation and that necessary equipment and/or blood products are available prior to the start of the case. Complications: none EBL: <5 cc 74675 - Lumbar/Sacral 51864 - Lumbar/Sacral, additional level Procedure code (CPT) selection complete Assessment & Plan Assessment & Plan (1) Left lumbar radiculopathy: Code(s): M54.16 - Radiculopathy, lumbar region Category: Medical Plan Patient is status post left L4 TFESI. Patient tolerated procedure well and was discharged home in stable condition with discharge instructions. All questions were answered. We will follow-up via telephone or in clinic to assess response to therapy. A follow-up appointment was made during today's visit. Orders: Orders FL guidance in treatment room Today M96.1 - Postlaminectomy syndrome, not elsewhere classified Coding Level of Care Code Procedure Only Diagnoses Left lumbar radiculopathy M54.16 CPT Codes Transforaminal Epidural Steroid Inj - TESI 3: 08720 - Lumbar/Sacral ([id number]) Transforaminal Epidural Steroid Inj - TESI 4: 36664 - Lumbar/Sacral, additional level ([id number])
[2024-02-18 11:07] VITALS: BP 114/84; PULSE 72; O2SAT 96
== END 2024-02-18 11:09 | disposition home or self-care (01) ==
LOC: HO.PMCPRC 10:11
PROVIDERS: PCP Family Medicine; Visit Provider Internal Medicine
DX: M54.16 Radiculopathy, lumbar region (principal)
CPT/HCPCS: 64483

== ENCOUNTER 2024-03-16 09:31 | Outpatient (AMB) | payer OTHER, SELFPAY ==
--- NOTE | 2024-03-16 09:31 | A.OFFVIS_ITS ---
Intake Visit Reasons: s/p Left L4 TFESI Allergies morphine [From MS Contin] Allergy (Verified 02/12/24 13:55) Itching pregabalin [From Lyrica] Allergy (Verified 02/12/24 13:55) Unknown quetiapine [From Seroquel] Allergy (Verified 02/12/24 13:55) Swelling HPI HPI s/p Left L4 TFESI: Details: 53-year-old female who attends through telemedicine today status post left T4 transforaminal epidural steroid injection. Patient reports 90% relief following the procedure. She has been working on her stretching and strengthening exercises. Past procedures: 02/18/24: Transforaminal epidural steroid injection, left L4, 90% relief. 12/31/23: Therapeutic sacroiliac joint injection, left. 04/30/23: Right diagnostic and left therapeutic SIJ injections: 100% relief on the right side. 03/25/23: Sacroiliac Joint Injection, Left: 80%relief. [facility] Medical History Diabetes GERD (gastroesophageal reflux disease) Bipolar 1 disorder Anxiety Depression Numbness Sleep apnea Asthma Elevated cholesterol HTN (hypertension) Surgical History History of back surgery Hx of knee surgery Hx of carpal tunnel repair Hx of cholecystectomy Hx of section Social History Are you a primary vehicle care specialist to a significant other at home: No Do you presently have visiting nurse or other home services: Yes Patient Tobacco Use Status: Current everyday Tobacco user Tobacco use type: Cigarette Cigarettes Per Day: 10 Review of Systems Const All systems reviewed & are unremarkable except as noted in HPI and below Telehealth Telehealth Telehealth Platform: [facility] Location of provider rendering services: practice address Location of patient: address on file Patient Identification confirmed using: Name, : Yes Telehealth method: video Patient verbally consented to treatment: Yes Patient verbally consented to billing insurance company: Yes Patient informed of any privacy concerns related to visit: Yes Minutes spent on Phone/Video with Pt.: 2 Results Reviewed Results Reviewed: No imaging is available for review. Assessment & Plan Assessment & Plan (1) Left lumbar radiculopathy: Code(s): M54.16 - Radiculopathy, lumbar region Category: Medical Plan The patient reports 90% relief following TFESI. She will follow up as needed when her symptoms get worse again. Scribed for Dr. Maza by Valencia Cabrera, diagnostic medical sonographer, on 03/16/2024.? I, Dr. Maza, have personally reviewed and agree with the information entered by the scribe. Coding Level of Care Code Tele Est Pt Level 2 (68591) Diagnoses Left lumbar radiculopathy M54.16
== END 2024-03-16 09:32 | disposition home or self-care (01) ==
LOC: HO.PMC 09:31
PROVIDERS: PCP Internal Medicine; Visit Provider Internal Medicine
DX: M54.16 Radiculopathy, lumbar region (principal)
CPT/HCPCS: 99212

== ENCOUNTER 2024-05-02 11:18 | Outpatient (AMB) | payer OTHER, SELFPAY ==
--- NOTE | 2024-05-02 11:24 | A.OFFVIS_ITS ---
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 Allergies morphine [From MS Contin] Allergy (Verified 05/02/24 11:27) Itching pregabalin [From Lyrica] Allergy (Verified 05/02/24 11:27) Unknown quetiapine [From Seroquel] Allergy (Verified 05/02/24 11:27) Swelling Medication List - Last Reconciled 05/02/24 by Robyn Watts LPN acetaminophen 650 mg PO TID PRN albuterol sulfate 2.5 mg inhalation BID PRN amlodipine 5 mg PO DAILY cetirizine 10 mg PO DAILY cholecalciferol (vitamin D3) 125 mcg PO DAILY clonazepam 0.5 mg PO BID PRN clonidine HCl 0.3 mg PO BEDTIME dulaglutide (Trulicity) 0.75 mg subcut QWEEK duloxetine 120 mg PO DAILY empagliflozin (Jardiance) 10 mg PO DAILY fluticasone propion-salmeterol 500-50 mcg/dose (Advair Diskus) 1 ea inhalation DAILY fluticasone propionate 50 mcg/actuation 2 sprays intranasal DAILY ibuprofen 600 mg PO TID PRN ibuprofen 800 mg PO Q8H PRN insulin glargine (Lantus U-100 Insulin) 40 units subcut BEDTIME PRN lidocaine 5% 1 patch topical DAILY lisinopril 20 mg PO DAILY mirtazapine 30 mg PO BEDTIME omeprazole 40 mg PO DAILY oxycodone 15 mg PO TID PRN oxycodone 5 mg PO BID PRN prazosin 2 mg PO BEDTIME sennosides-docusate sodium 8.6-50 mg (Senna Plus) 2 tabs PO BEDTIME sulfamethoxazole-trimethoprim 800-160 mg (Bactrim DS) 1 tab PO BID tizanidine 4 mg PO TID trazodone 50 mg PO BEDTIME HPI HPI FU increasing pain: Details: History of Present Illness The patient is a 54-year-old female presenting with increasing pain in the lower back. She was last seen in March for a transforaminal epidural steroid injection, which provided approximately 90% relief for two months. The pain has recurred over the past week, manifesting with similar intensity and distribution as before. The patient reports the pain radiating towards the left side, extending down to the foot. Her pain is exacerbated without apparent inciting trauma or event, and she expresses significant concern regarding the severity, fearing potential collapse due to intense pain episodes. Past interventions include medication and topical patches, which offer temporary relief for about two hours. Currently, her ability to conduct household activities is markedly reduced, impacting her quality of life. Pain Description - Onset and Timing: Recurrence over the past week, initially treated two months ago. - Quality and Character: Severe, radiating pain. - Primary Location: Lower back. - Areas of Radiation: Extends to the left side down to the foot. - Exacerbating Factors: General activities and lack of adequate intervention. - Relieving Factors: Medications and topical patches provide temporary relief. 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 Pain Management - Affect: The patient experiences significant psychological distress due to the ongoing and severe nature of the pain, with anxiety about potential physical c ollapse. - Analgesia: Current usage of pain medication and topical patches, providing temporary relief. Pain returned after two months following a steroid injection. - Adverse Effects: Temporary relief from medications; no detailed side effects reported. - Activities of Daily Living: Unable to engage fully in household activities; dependent on assistance. - Aberrant Drug-Related Behaviors: No indication of misuse of prescribed pain medications. [facility] Medical History Diabetes GERD (gastroesophageal reflux disease) Bipolar 1 disorder Anxiety Depression Numbness Sleep apnea Asthma Elevated cholesterol HTN (hypertension) Surgical History History of back surgery Hx of knee surgery Hx of carpal tunnel repair Hx of cholecystectomy Hx of section Social History Are you a primary care clinician to a significant other at home: No Do you presently have visiting nurse or other home services: Yes Patient Tobacco Use Status: Current everyday Tobacco user Tobacco use type: Cigarette Cigarettes Per Day: 10 Physical Exam Vital Signs: Last Vital Signs Pulse 115 H 05/02/24 11:26 Resp 16 05/02/24 11:26 BP 110/75 05/02/24 11:26 Pulse Ox 90 L 05/02/24 11:26 Oxygen Delivery Method Room Air 05/02/24 11:26 BMI result Body Mass Index 27.3 Assessment & Plan Assessment & Plan (1) Left lumbar radiculopathy: Code(s): M54.16 - Radiculopathy, lumbar region Category: Medical Plan Plan - Arrange insurance authorization for a repeat left lumbar L4 transforaminal epidural steroid injection upon patient request, due to past positive response. - Continue current use of pain medications and patches until the procedure is performed. Patient was informed and verbally consented to the use of an ambient scribe for clinic note documentation during this visit. Discussion Notes I discussed with the patient the role of repeat transforaminal epidural steroid injections, given the significant alleviation achieved from the previous injection. Should the injections cease to be effective, alternative pain management strategies such as the use of implanted devices for pain control were briefly mentioned. The patient understands the proposed treatment strategy and the need to continue current pain management practices while awaiting insurance authorization for the procedure. Future follow-ups will address response rate and potential adjustments if needed. Patient Instructions - Await notification for the next injection appointment once insurance authorization is secured. - Continue current pain medication regimen and use of topical patches as needed until procedure. - Report any significant changes or worsening of symptoms immediately. Coding Level of Care Code Est Pt Level 3 (40661) Diagnoses Left lumbar radiculopathy M54.16
[2024-05-02 11:26] VITALS: BP 110/75; PULSE 115; RESP 16; O2SAT 90; BMI 27.3
--- OUTSIDE RECORDS SUMMARY | 2024-05-02 16:13 | XMS_ITS | Clinical Summary ---
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 Colmenares Social History Tobacco Use Types Packs/Day Years Used Date Smoking Tobacco: Never Smokeless Tobacco: Never Sex and Gender Information Value Date Recorded Sex Assigned at Not on file Gender Identity Not on file Sexual Orientation Not on file Obstetrics History Last Filed Vital Signs Vital Sign Reading Time Taken Comments Blood Pressure - - Pulse - - Temperature - - Respiratory Rate - - Oxygen Saturation - - Inhaled Oxygen Concentration - - Weight 78 kg (172 lb) 11/13/2021 11:13 AM EDT Height 162.6 cm (5' 4 ) 11/13/2021 11:13 AM EDT Body Mass Index 29.52 11/13/2021 11:13 AM EDT Plan of Treatment Health Maintenance Due Date Last Done Comments Breast Cancer Screening 1969 DTaP,Tdap,and Td Vaccines (1 - Tdap) 1988 Hepatitis B Vaccines (1 of 3 - 19+ 3-dose series) 1988 Cervical Cancer Screening: P ap Smear 1990 Zoster Vaccines (1 of 2) 2019 Colorectal Cancer Screening: Colonoscopy 03/08/2022 Depression Screening 03/08/2022 HIV Screening 03/08/2022 Hepatitis C Screening 03/08/2022 Social Influencers of Health Screening 03/08/2022 COVID-19 Vaccine (2 - 2023-2 5 season) 2023 10/19/2020 Influenza Vaccine (#1) 2023 , 04/19/2020 HIB Vaccines Aged Out No longer eligi ble based on patient's age to complete this topic HPV Vaccines Aged Out No longer eligi ble based on patient's age to complete this topic Hepatitis A Vaccines Aged Out No long er eligible based on patient's age to complete this topic IPV Vaccines Aged Out No longer eligi ble based on patient's age to complete this topic MMR Vaccines Aged Out No longer eligi ble based on patient's age to complete this topic Meningococcal ACWY Vaccine Aged Out N o longer eligible based on patient's age to complete this topic Pneumococcal Vaccine: Pediatrics (0 to 5 Years) and At-Risk Patients (6 to 64 Years) Aged Out No longer eligible b ased on patient's age to complete this topic RSV Immunization Patients Under 20 months Aged Out No longer eligible b ased on patient's age to complete this topic Varicella Vaccines Aged Out No longer eligible based on patient's age to complete this topic Advance Directives Documents on File Type Date Recorded 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
== END 2024-05-02 11:40 | disposition home or self-care (01) ==
PROVIDERS: PCP Internal Medicine; Visit Provider Internal Medicine
DX: M54.16 Radiculopathy, lumbar region (principal)
CPT/HCPCS: 99213

== ENCOUNTER → 2024-05-02 11:18 | Outpatient (BNVA) | payer OTHER, SELFPAY | PROVIDERS: PCP Internal Medicine; Visit Provider Internal Medicine | DX: M54.16 Radiculopathy, lumbar region (principal) | CPT/HCPCS: 99212 ==

== ENCOUNTER 2024-05-02 14:49 | Outpatient (AMB) | payer OTHER, SELFPAY ==
--- NOTE | 2024-05-02 14:54 | HO.SPINEOV ---
Intake Visit Reasons: increase in pain Intake Note: Ms. Virgilio Silvestre is here today c/o increasing pain after injections. 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 Almost 2 years ago we did a left L4-5 decompression and she is not experience significant pain improvement since that time. She has only continued to have back pain pain shooting down her thigh to her outer calf. As far as she remembers she has not had any postoperative imaging. The pain has only escalated over time. She tried physical therapy but it was discontinued because it was aggravating her symptoms. She has done some injections up with the pain management office. She is not getting much success with those and I guess there is a conversation about spinal cord stimulator that may be happening. On exam she is able to stand but she walks with a walker uncomfortably, her wound is well healed on the back and she has full strength of bilateral lower extremities. I am going to order a new MRI as it has been almost 2 years since her surgery and we can see if there is any residual compression. Total amount of time spent in this visit was 20 minutes in discussion of symptoms, ordering imaging and subsequent plan of care Jose Colmenares MD,PhD [facility] Orders: Orders MR lumbar spine wo/w con Today M54.16 - Radiculopathy, lumbar region Coding Level of Care Code Est Pt Level 3 (73371) Diagnoses Left lumbar radiculopathy M54.16
--- OUTSIDE RECORDS SUMMARY | 2024-05-02 19:08 | XMS_ITS | Clinical Summary ---
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
--- OUTSIDE RECORDS SUMMARY | 2024-05-02 19:09 | XMS_ITS | Data Portability ---
Author Organization [place] - [facility] Address [address] [place] [address] Assessment Encounter Date Assessment Date Assessment LastModified by Organization Details LastModified Time 07/16/2023 07/16/2023 Nature of the diagnosis was discussed with the patient today. At this time I do feel the vast majority the pain discomfort is likely from degenerative medial compartment. Discussed multiple treatment options with her to include anti-inflammato delfino therapy and a cortisone injection. Patient responded very well to cortisone injections in the past and wishes to repeat such today. All questions were answered to patient's satisfaction, discussed the role of as needed injections every 3 to 6 months can call for such at her convenience. uchlila Not available 07/16/2023 15:44:37 Plan of Treatment Reminders Order Date Submit Date Provider Last Modified By Organization Details Last Modified Time Details Appointments None recorded. Lab None recorded. Referral None recorded. Procedures None recorded. Surgeries None recorded. Imaging XR, knee, 4 or more view - New bilateral knees, room [address], [address], [facility] [address], [place], [address], 4 14:34:13 Medication Orders None recorded. Patient TargetsNo targets recorded. Patient InstructionsNo instructions recorded. Reason for Referral None Reported. Results Created Date Observation Date Name Description Value Unit Range Abnormal Flag Note LastModifiedBy Organization Detail LastModifiedTime 12/04/19 24 12/19/2018 avinashi ng/saeid lauren tic resul t No observ ation record ed. [email or web address] Not Available 11/06 19:36:15 Result Notes None recorded. Problems Name Problem SNOMED Code Status Onset Date Resolution Date Notes Provider Name and Address Organization Details Recorded Time No complaint s [id number] Active Status: 'I'; Not Available [facility] 4 09:10:26 Chondroma lacia of right patella 106564850271 71453 Active 2015 Problem Code: M22.41; Problem Code Type: ICD-10; Status: 'A'; Not Available [facility] 4 10:55:29 Pain of left knee joint 700021165340 107 Active 2015 Problem Code: M25.562; Problem Code Type: ICD-10; Status: 'A'; Not Available [facility] 4 10:55:29 Pain of bilateral knee joints 749812463711 104 Active 2023 TOD wu [facility] 14:19:55 Problem Notes None recorded. Procedures Surgical History Date Name Laterality Status Provider Name and Address Organization Details Recorded Time 4 Knee Kenalog 40 1cc Injection, Bilateral completed Antonio Drew PA-C [address], [place], [address], [facility] 07/16/2023 15:44:06 Imaging Results Imaging Date Name Status LastModified by Organiz ation Details LastModified Time 12/19/2018 imaging/diag nostic result completed [email or web address] Information not available 12/04/2023 19:36:15 Procedure Notes None recorded. Medical Equipment None Reported. Allergies Allergen ID Allergen Name Allergen Category Reaction Reaction Severity Criticality Documentation Date Start Date Code Code System Note Provider Name and Address Organization Details Recorded Time 894117 gabapenti n medicatio n Not available Not available Not available 07/16/2023 25913 RxNorm TOD wu [facility] 4 14:18:37 661907 Seroquel medicatio n Not available Not available Not available 07/16/2023 27825 RxNorm TOD wu [facility] 14:18:44 511870 morphine medicatio n Not available Not available Not available 07/16/2023 7052 RxNorm TOD wu [facility] 04/11/202 4 14:19:00 Medications Name Sig Start Date Stop Date Status Note LastModified by Organization Details LastModified Time atorvastati n 40 mg tablet active Not Available Not Available Not Available acetaminoph en 325 mg tablet active Not Available Not Available Not Available albuterol sulfate 2.5 mg/3 mL (0.083 %) solution for nebulizatio n active Not Available Not Available Not Available trazodone 50 mg tablet active Not Available Not Available Not Available cetirizine 10 mg tablet active Not Available Not Available Not Available ibuprofen 800 mg tablet active Not Available Not Available Not Available tizanidine 4 mg tablet active Not Available Not Available Not Available lisinopril 20 mg tablet active Not Available Not Available Not Available clonazepam 0.5 mg tablet active Not Available Not Available Not Available clonidine HCl 0.3 mg tablet active Not Available Not Available Not Available amlodipine 5 mg tablet active Not Available Not Available Not Available sulfamethox azole 800 mg-trimetho prim 160 mg tablet TAKE 1 TABLET BY MOUTH TWICE A DAY active Not Available Not Available No t Available omeprazole 40 mg capsule,del ayed release active Not Available Not Available Not Available oxycodone 15 mg tablet TAKE 1 TABLET BY MOUTH EVERY 8 HOURS,FOR 28 DAYS, NEEDED FOR SEVERE PAIN active Not Available Not Available No t Available topiramate 25 mg sprinkle capsule active Not Available Not Available Not Available mirtazapine 30 mg tablet active Not Available Not Available Not Available pseudoephed rine-guaife nesin ER 80-700 mg tablet,exte nded release as directed 1 to 2 tablets q 8hrs prn pain 2015 active Statu s: 'Curr ent'; Not Available Not Available Not Available triamcinolo ne acetonide 55 mcg nasal spray aerosol active Not Available Not Available Not Available lidocaine 5 % topical patch active Not Available Not Available Not Available Advair Diskus 500 mcg-50 mcg/dose powder for inhalation active Not Available Not Available N ot Available clotrimazol e 1 % topical cream active Not Available Not Available Not Available doxycycline hyclate 100 mg tablet active Not Available Not Available No t Available prazosin 2 mg capsule active Not Available Not Available N ot Available Ventolin HFA 90 mcg/actuati on aerosol inhaler active Not Available Not Available Not Available oxycodone 5 mg tablet TAKE 1 TABLET BY MOUTH 2 TIMES A DAY NEEDED FOR PAIN PARTIAL FILL UPON PATIENT REQUEST. active Not Available Not Available No t Available Senna Plus 8.6 mg-50 mg tablet active Not Available Not Available No t Available duloxetine 20 mg capsule,del ayed release active Not Available Not Available Not Available duloxetine 60 mg capsule,del ayed release active Not Available Not Available Not Available ranitidine HCl raNITIdin e HCl 300MG Tablet 01/03 completed Statu s: 'Disc ontin ued'; Not Available Not Available Not Available Januvia 100 mg tablet active Not Available Not Available No t Available diclofenac 1 % topical gel active Not Available Not Available Not Available oxycodone HCl-oxycodo ne-ASA oxyCODONE HCl 5MG Tablet 01/03 completed Statu s: 'Disc ontin ued'; Not Available Not Available Not Available cholecalcif laureen (vitamin D3) 125 mcg (5,000 unit) tablet active Not Available Not Available Not Available Jardiance 10 mg tablet active Not Available Not Available Not Available Trulicity 1.5 mg/0.5 mL subcutaneou s pen injector active Not Available Not Available Not Available Vitals Date Recorded Body height Body mass index (BMI) Body weight Provider Name and Address Organization Details Last Updated DateTime 07/16/2023 160.02 cm 28.3 kg/m2 75645.78 g TOD LIMON [place] [facility] [place] [facility] 07/16/2023 14:18:13 Social History None recorded. Functional Status None recorded. Mental Status None recorded. Family History Nothing Reported. Medical History No medical history recorded. Gynecological HistoryNo gynecological history recorded. Obstetrics History GPAL:G 0 P 0 0 0 0 Past Encounters Encounter ID Performer Location Encounter Start Date Encounter Closed Date Diagnosis/Indication Diagnosis SNOMED-CT Code Diagnosis ICD10 Code Diagnosis Note [id number] DELM[facility] [address] [place] [address] 07/16/2023 13:06:11 08/05/2023 14:13:07 Pain of bilateral knee joints [id number] 41437 M25.569 You have been provided with a cortisone injection in order to reduce the pain and inflammati on that you are experienci ng. The injection consists of two medication s. Cortisone (an anti-infla mmatory that will take 48-72 hours to take effect) and Lidocaine (a numbing agent that will last 2-3 hours). Please note that not everyone will have a lasting response following the injection. PATIENT INSTRUCTIO NSOnce the Lidocaine wears off, you may have an increase in your pain. I recommend icing the affected area for 20 minutes 3-4 times per day.It is recommende d that you refrain from any high level activities using the joint or limb that was injected for approximat tate 24-48 hours. Normal day-to-day activities are generally not a problem.PO SSIBLE SIDE EFFECTSInd ividuals with dark complexion s may experience some skin discolorat ion locally at the site of the injection. There is the possibilit y of an increase in discomfort within 48 hours following the injection. This is called a ? f lare? . To help minimize the chances of this, please see the post-injec tion instructio ns above.Ther e is a less than 1% chance of an infection. If you notice any signs of infection (redness, warmth, drainage, fever greater than 100 degrees) please call our office or contact us through the portal [facility]. Health Concerns Section Related Observation LastModified by Organization Detai ls LastModified Time None Recorded Concern Status LastModified by Organization Details LastModified Time None Recorded Advance Directives Directive None Recorded Payers Encounter Date Sequence Insurance Name Policy Number Policy Barrios Covered Member ID Barrios Member ID Guarantor Name 07/16/2023 1 [facility] (MEDICAID HMO) [id number] Josie Poole [id number] Josie Poole Notes Date Note Type Note Provider Name and Address Organization Details Recorded Time 07/16/2023 text/html I am seeing the patient today under the supervision of {{ Dr. Bales#}} who was available but who did not see the patient. Patient comes in for evaluation of bilateral knee pain. Has history of bilateral knee arthroscop[place] [address] Bettencourt has had some underlying off-and-on pain discomfort over the last couple of years. States that its gotten significantly worse in the past 2 or 3 months. Pain is over the medial aspect of that knee. Pain and difficulty with knee flexion activities to include kneeling squatting going up and down stairs to get from a seated position. Patient reports that there is no new injury to account for this. Has had no recent modalities. Last cortisone injection was done by myself back in 2021 with excellent relief Antonio Drew PA-C [address], [place], [address], [facility] [place] [facility] 07/16/2023 15:45:10 OBGyn Episode No OBEpisode recorded.
== END 2024-05-02 15:24 | disposition home or self-care (01) ==
PROVIDERS: PCP Internal Medicine; Visit Provider Physician Assistant
DX: M54.16 Radiculopathy, lumbar region (principal)
CPT/HCPCS: 99213

== ENCOUNTER → 2024-05-08 16:43 | Outpatient (BNV) | payer OTHER, SELFPAY | PROVIDERS: PCP Internal Medicine; Visit Provider Radiology Diagnostic Radiology | DX: M47.897 Other spondylosis, lumbosacral region (principal) | CPT/HCPCS: 72158 ==

== ENCOUNTER 2024-05-08 16:59 | Outpatient (REF) | payer OTHER, SELFPAY ==
--- NOTE | ~2024-05-08 | MR_ITS ---
EXAMINATION: MR LUMBAR SPINE WITHOUT AND WITH CONTRAST CLINICAL INFORMATION: Low back pain, lumbar region. COMPARISON: MRI dated August 25, 2022. TECHNIQUE: MRI of the lumbar spine was obtained using routine sequences with and without contrast. Intravenous contrast: Gadolinium based 6.5 cc without reported immediate complications FINDINGS: Last rib-bearing vertebra labeled T12. No bone marrow STIR signal abnormality. No abnormal enhancement within the leptomeningeal structures, the prevertebral compartment or the central spinal canal. The conus medullaris ends at inferior endplate of T12 with normal signal. T12-L1: No disc herniation. No neuroforamina stenosis. 3 mm hyperintense T2 signal within the left ligamentum flavum probable cyst. L1-2: Broad-based disc bulging. No central spinal canal stenosis. No neuroforamina stenosis. No compression upon neural elements. L2-3: Broad-based disc bulging. Facet joint and ligamentum flavum hypertrophy. Reduced AP diameter of the thecal sac and the neural foramina. No compression upon neural elements. L3-4: Broad-based disc bulging. Facet joint and ligamentum flavum hypertrophy. Reduced AP diameter of the thecal sac and the neural foramina more conspicuous on the left side likely encroaching the neural elements. L4-5: Asymmetric to the right broad-based disc bulging. Facet joint hypertrophy. Reduced AP diameter of the thecal sac and the neural foramina likely encroaching the neural elements. L5-S1: Broad-based disc bulging. Facet joint hypertrophy. Reduced AP diameter of the thecal sac and the neural foramina. Prominent epidural fat in a circumferential fashion. No prevertebral compartment hematoma, mass or fluid collection. Probable cyst, left kidney. MR/MR lumbar spine wo/w con IMPRESSION: Multilevel spondylosis from L3-4 to L5-S1 more conspicuous at L4-5 likely encroaching the neural elements. No abnormal enhancement. Electronically signed by: Reggie Eli MD 05/09/2024 09:00 AM EST
--- OUTSIDE RECORDS SUMMARY | 2024-05-08 17:01 | XMS_ITS | Data Portability ---
Author Organization [place] - [facility] Address [address] [place] [address] Assessment Encounter Date Assessment Date Assessment LastModified [...] can call for such at her convenience. [email or web address] Not available 07/16/2023 15:44:37 Plan of Treatment Reminders Order Date Submit Date Provider Last Modified By Organization Details Last Modified Time Details Appointments None recorded. Lab None recorded. Referral None recorded. Procedures None recorded. Surgeries None recorded. Imaging XR, knee, 4 or more view - New bilateral knees, room 303 2023 [facility], [address], [facility] [address], [place], [address], 4 14:34:13 Medication Orders None recorded. Patient [...] Organization Details Recorded Time No complaint s [id number] Active Status: 'I'; Not Available [facility] 4 09:10:26 Chondroma lacia of right patella 628912596888 70701 Active 2015 Problem Code: M22.41; Problem Code Type: ICD-10; Status: 'A'; Not Available [facility] 4 10:55:29 Pain of left knee joint 317754634132 107 Active 2015 Problem Code: M25.562; Problem Code Type: ICD-10; Status: 'A'; Not Available [facility] 4 10:55:29 Pain of bilateral knee joints 711129076763 104 Active 2023 TOD wu [facility] 14:19:55 Problem Notes None recorded. Procedures Surgical History Date Name Laterality Status Provider Name and Address Organization Details Recorded Time 4 Knee Kenalog 40 1cc Injection, Bilateral completed Antonio Drew PA-C [address], [place], [address], [facility] 07/16/2023 15:44:06 Imaging Results Imaging Date Name Status LastModified by Organiz ation Details LastModified Time 12/19/2018 imaging/diag nostic result completed [email or web address] Information not available 12/04/2023 19:36:15 Procedure Notes None recorded. Medical Equipment None Reported. Allergies Allergen ID Allergen Name Allergen Category Reaction Reaction Severity Criticality Documentation Date Start Date Code Code System Note Provider Name and Address Organization Details Recorded Time 532067 gabapenti n medicatio n Not available Not available Not available 07/16/2023 83459 RxNorm TOD wu [facility] 4 14:18:37 210695 Seroquel medicatio n Not available Not available Not available 07/16/2023 82615 RxNorm TOD wu [facility] 14:18:44 451276 morphine medicatio n Not available Not available Not available 07/16/2023 7052 RxNorm TOD wu [facility] 04/11/202 4 14:19:00 Medications Name Sig Start [...] Not Available Vitals Date Recorded Body height Provider Name an d Address Organization Details Last Updated DateTime 07/16/2023 160.02 cm TOD LIMON [facility] 07/16/2023 14:18:06 Date Recorded Body mass index (BMI) Body weight Provider Name and Address Organization Details Last Updated DateTime 07/16/2023 28.3 kg/m2 48805.78 g TOD LIMON [facility] 07/16/2023 14:18:13 Social History None recorded. Functional Status None recorded. Mental Status None recorded. Family History Nothing Reported. Medical History No medical history recorded. Gynecological HistoryNo gynecological history recorded. Obstetrics History GPAL:G 0 P 0 0 0 0 Past Encounters Encounter ID Performer Location Encounter Start Date Encounter Closed Date Diagnosis/Indication Diagnosis SNOMED-CT Code Diagnosis ICD10 Code Diagnosis Note [id number] DELM[facility] [address] [place] [address] 07/16/2023 13:06:11 08/05/2023 14:13:07 Pain of bilateral knee joints [id number] 91406 M25.569 You have been provided with a [...] Barrios Member ID Guarantor Name 07/16/2023 1 [facility] (MEDICAID HMO) [id number] Josie Poole [id number] Josie Poole Notes Date Note Type Note [...] with excellent relief Antonio Drew PA-C [address] [facility] [address], [place], [address], [facility] 07/16/2023 15:45:10 OBGyn Episode No OBEpisode recorded.
--- OUTSIDE RECORDS SUMMARY | 2024-05-08 17:01 | XMS_ITS | Clinical Summary ---
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
[2024-05-08] MEDS: gadobutroL 7.5 ML VIAL IVPUSH (18:10)
== END 2024-05-08 17:00 | disposition home or self-care (01) ==
LOC: HO.MRI 16:59
PROVIDERS: PCP Internal Medicine; Visit Provider Physician Assistant
DX: M54.16 Radiculopathy, lumbar region (principal)
CPT/HCPCS: 72158; A9585

== ENCOUNTER 2024-06-09 06:15 | Outpatient (REF) | payer OTHER, SELFPAY ==
--- NOTE | ~2024-06-09 | FL_ITS ---
EXAMINATION: FL GUIDANCE ONLY HISTORY: M54.16 - Radiculopathy, lumbar region COMPARISON: None available. TECHNIQUE: Fluoroscopy time: 0.1 minutes. Cumulative Dose: 4.87 mGy. DAP: 0.0230 mGym2 Images: 3. FINDINGS: Images demonstrate a needle and contrast material in the region of the left L4-5 facet joint. FL/FL guidance in treatment room IMPRESSION: Fluoroscopy during procedure. Please see procedure report for additional information. Electronically signed by: Rocky Contreras MD 06/13/2024 07:18 AM EDT
--- OUTSIDE RECORDS SUMMARY | 2024-06-09 06:18 | XMS_ITS | Clinical Summary ---
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 Colmenares Social History Tobacco Use Types Packs/Day Years Used Date Smoking Tobacco: Never Smokeless Tobacco: Never Comments Unknown Sex and Gender Information Value Date Recorded Sex Assigned at Not on file Legal Sex Female 6:14 PM EST Gender Identity Not on file Sexual Orientation [...] Cervical Cancer Screening: P ap Smear 1990 Pneumococcal Vaccine: 50+ Years (1 of 1 - PCV) 2019 Zoster Vaccines (1 of 2) 2019 Colorectal Cancer Screening: Colonoscopy 03/08/2022 Depression Screening 03/08/2022 HIV Screening 03/08/2022 Hepatitis C Screening 03/08/2022 Social Influencers of Health Screening 03/08/2022 COVID-19 Vaccine (2 - 2023-2 5 season) 2023 10/19/2020 Influenza Vaccine (#1) 2023 1, 04/19/2020 HIB Vaccines Aged Out No longer [...] patient's age to complete this topic Meningococcal B Vacine Aged Out No lo nger eligible based on patient's age to complete [...] Documents on File Type Date Recorded 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
--- OUTSIDE RECORDS SUMMARY | 2024-06-09 06:19 | XMS_ITS | Data Portability ---
Author Organization [place] - [facility], [facility] Address [address] [place] [address] Assessment Encounter Date Assessment Date Assessment LastModified [...] New bilateral knees, room 303 2023 024 [facility], [address], [facility] [address], [place], [address], 4 14:34:13 Medication Orders None recorded. Patient [...] Organization Details Recorded Time No complaint s [id number] Active Status: 'I'; Not Available [facility] 4 09:10:26 Chondroma lacia of right patella [id number] 23891 Active 2015 Problem Code: M22.41; Problem Code Type: ICD-10; Status: 'A'; Not Available [facility] 4 10:55:29 Pain of left knee joint [id number] 107 Active 2015 Problem Code: M25.562; Problem Code Type: ICD-10; Status: 'A'; Not Available [facility] 4 10:55:29 Pain of bilateral knee joints [id number] 104 Active 2023 TOD wu [facility] 14:19:55 Problem Notes None recorded. Procedures Surgical History Date Name Laterality Status Provider Name and Address Organization Details Recorded Time 4 Knee Kenalog 40 1cc Injection, Bilateral completed Antonio Drew PA-C [address], [place], [address], [facility] 07/16/2023 15:44:06 Imaging Results Imaging Date Name Status LastModified by Organiz ation Details LastModified Time 12/19/2018 imaging/diag nostic result completed [id number] Information not available 12/04/2023 19:36:15 Procedure Notes None recorded. Medical Equipment None Reported. Allergies Allergen ID Allergen Name Allergen Category Reaction Reaction Severity Criticality Documentation Date Start Date Code Code System Note Provider Name and Address Organization Details Recorded Time 593307 gabapenti n medicatio n Not available Not available Not available 07/16/2023 97369 RxNorm TOD wu [facility] 4 14:18:37 706614 Seroquel medicatio n Not available Not available Not available 07/16/2023 79555 RxNorm TOD wu [facility] 14:18:44 [id number] morphine medicatio n Not available Not available Not available 07/16/2023 7052 RxNorm TOD wu [facility] 04/11/202 4 14:19:00 Medications Name [...] Updated DateTime 07/16/2023 160.02 cm 28.3 kg/m2 15011.78 g TOD LIMON [place] [facility] 07/16/2023 14:18:13 Social History None recorded. Functional Status None recorded. Mental Status None recorded. Family History Nothing Reported. Medical History No medical history recorded. Gynecological HistoryNo gynecological history recorded. Obstetrics History GPAL:G 0 P 0 0 0 0 Past Encounters Encounter ID Performer Location Encounter Start Date Encounter Closed Date Diagnosis/Indication Diagnosis SNOMED-CT Code Diagnosis ICD10 Code Diagnosis Note [id number] DELMIS [facility] [address] floor [address] [place] [address] 07/16/2023 13:06:11 08/05/2023 14:13:07 Pain of bilateral knee joints [id number] 97092 M25.569 You have been provided with a [...] Barrios Member ID Guarantor Name 07/16/2023 1 [facility] [employer] (MEDICAID HMO) [id number] Josie Poole [id number] Josie Poole Notes Date Note Type Note [...] with excellent relief Antonio Drew PA-C [address], [place], [address], [facility] [place] [facility] 07/16/2023 15:45:10 OBGyn Episode No OBEpisode recorded.
== END 2024-06-09 06:16 | disposition home or self-care (01) ==
LOC: CF 06:15
PROVIDERS: Visit Provider Internal Medicine
DX: M54.16 Radiculopathy, lumbar region (principal)
CPT/HCPCS: 64483; J1100; J2003; Q9967

== ENCOUNTER 2024-06-09 10:29 | Outpatient (AMB) | payer OTHER, SELFPAY ==
--- NOTE | 2024-06-09 10:30 | A.OFFVIS_ITS ---
Vital Signs 06/09/24 10:59 06/09/24 11:48 BP 123/66 109/75 Blood Pressure Location Lt brachial Lt brachial Position Sitting Sitting Pulse 80 84 Pulse Source Pulse Oximeter Pulse Oximeter Pulse Oximetry (%) 98 95 Oxygen Delivery Method Room Air Room Air Comment Pre-Op Post-Op Intake Visit Reasons: Left L4 TFESI Allergies morphine [From MS Contin] Allergy (Verified 05/02/24 11:27) Itching pregabalin [From Lyrica] Allergy (Verified 05/02/24 11:27) Unknown quetiapine [From Seroquel] Allergy (Verified 05/02/24 11:27) Swelling HPI HPI Left L4 TFESI: Details: Patient presents for scheduled procedure. Denies any recent cough, cold, infection, fever or other significant changes in medical history since last office visit. [facility] Medical History Diabetes GERD (gastroesophageal reflux disease) Bipolar 1 disorder Anxiety Depression Numbness Sleep apnea Asthma Elevated cholesterol HTN (hypertension) Surgical History History of back surgery Hx of knee surgery Hx of carpal tunnel repair Hx of cholecystectomy Hx of section Social History Are you a primary animal care supervisor to a significant other at home: No Do you presently have visiting nurse or other home services: Yes Patient Tobacco Use Status: Current everyday Tobacco user Tobacco use type: Cigarette Cigarettes Per Day: 10 Physical Exam Vital Signs: Last Vital Signs Pulse 80 06/09/24 10:59 BP 123/66 06/09/24 10:59 Pulse Ox 98 06/09/24 10:59 Oxygen Delivery Method Room Air 06/09/24 10:59 Office Procedures Details: Transforaminal epidural steroid injection, left L4 After obtaining written consent, pre-procedure blood pressure and heart rate were stable and recorded in the nursing record. The patient was placed in the prone position on the fluoroscopy table. The lumbosacral area was prepped with chloraprep, allowed to dry and draped in sterile fashion. Using fluoroscopy, the skin overlying our target was anesthetized with 0.5% lidocaine. A 22 gauge 3.5 inch spinal needle was advanced to the safe triangle in the upper pole of the left L4 foramen. No paresthesias were elicited with needle placement and aspiration was negative for blood and CSF. Correct needle position was confirmed with approximately 1 ml contrast dye (Omnipaque 180 mg/ml) injected under real-time fluoroscopy. No evidence of vascular or intrathecal uptake was seen and there was both epidural and peripheral spread of the contrast agent. 10 mg dexamethasone plus 1 ml containing 0.5% lidocaine was slowly injected. The needle was flushed and removed. The skin was cleansed and a sterile bandages were applied. The patient tolerated the procedure well and no complications were encountered. Following the procedure the patient's vital signs were stable. The patient was discharged home in good condition with post-procedural instructions. Time Out: Immediately prior to the procedure, the following was verbally confirmed that there is a signed consent form and that the correct patient, planned procedure, site and side are consistent with documentation and that necessary equipment and/or blood products are available prior to the start of the case. Complications: none EBL: <5 cc 92541 - Lumbar/Sacral Procedure code (CPT) selection complete Assessment & Plan Assessment & Plan (1) Left lumbar radiculopathy: Code(s): M54.16 - Radiculopathy, lumbar region Category: Medical Plan Patient is status post left L4 TFESI. Patient tolerated procedure well and was discharged home in stable condition with discharge instructions. All questions were answered. We will follow-up via telephone or in clinic to assess response to therapy. A follow-up appointment was made during today's visit. Orders: Orders FL guidance in treatment room Today M54.16 - Radiculopathy, lumbar region Coding Level of Care Code Procedure Only Diagnoses Left lumbar radiculopathy M54.16 CPT Codes Transforaminal Epidural Steroid Inj - TESI 3: 27148 - Lumbar/Sacral ([id number])
[2024-06-09 10:59] VITALS: BP 123/66; PULSE 80; O2SAT 98
[2024-06-09 11:48] VITALS: BP 109/75; PULSE 84; O2SAT 95
--- OUTSIDE RECORDS SUMMARY | 2024-06-09 12:31 | XMS_ITS | Clinical Summary ---
Author Organization 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
== END 2024-06-09 11:53 | disposition home or self-care (01) ==
LOC: HO.PMCPRC 10:29
PROVIDERS: PCP Internal Medicine; Visit Provider Internal Medicine
DX: M54.16 Radiculopathy, lumbar region (principal)
CPT/HCPCS: 64483

== ENCOUNTER 2024-11-18 09:48 | Outpatient (AMB) | payer OTHER, SELFPAY ==
[2024-11-18 09:53] VITALS: BP 174/97; PULSE 114; RESP 16; O2SAT 95; BMI 26.6
--- NOTE | 2024-11-18 09:53 | A.OFFVIS_ITS ---
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 Required: No Accompanied by: Other Relationship Allergies morphine (From MS Contin) Allergy (Verified 11/18/24 09:54) Itching pregabalin (From Lyrica) Allergy (Verified 11/18/24 09:54) Unknown quetiapine (From Seroquel) Allergy (Verified 11/18/24 09:54) Swelling Medication List - Last Reconciled 11/18/24 by Robyn Watts LPN acetaminophen 650 mg PO TID PRN albuterol sulfate 2.5 mg inhalation BID PRN amlodipine 5 mg PO DAILY cetirizine 10 mg PO DAILY cholecalciferol (vitamin D3) 125 mcg PO DAILY clonazepam 1 mg PO BID PRN clonidine HCl 0.3 mg PO BEDTIME duloxetine 120 mg PO DAILY fluticasone propion-salmeterol 500-50 mcg/dose (Advair Diskus) 1 ea inhalation DAILY fluticasone propionate 50 mcg/actuation 2 sprays intranasal DAILY insulin glargine (Lantus U-100 Insulin) 40 units subcut BEDTIME PRN lidocaine 5% 1 patch topical DAILY lisinopril 20 mg PO DAILY mirtazapine 30 mg PO BEDTIME omeprazole 40 mg PO DAILY oxycodone 15 mg PO TID PRN prazosin 2 mg PO BEDTIME sennosides-docusate sodium 8.6-50 mg (Senna Plus) 2 tabs PO BEDTIME tirzepatide (Mounjaro) mg subcut tizanidine 4 mg PO TID trazodone 50 mg PO BEDTIME HPI HPI Increased Pain/ Discuss Injection: Details: History of Present Illness The patient is a 54-year-old female presenting for follow-up regarding left leg pain management. She was previously seen in June for a transforaminal epidural steroid injection at the L4 level, which provided more than 50% relief for over three months. The pain has since returned, primarily affecting the left leg, and is suspected to be due to nerve compression. The patient reports that elevating the leg causes pain, but rubbing the area provides some relief. She has agreed to undergo another L4 transforaminal epidural injection to manage the recurring pain. Pain Description - Onset and Timing: Pain returned after initial relief from injection - Quality and Character: Pain is concentrated in the left leg - Primary Location: Left leg - Exacerbating Factors: Elevating the leg - Relieving Factors: Rubbing the area Physical Exam - Musculoskeletal: SLR + left leg Pain Management - Analgesia: Previous L4 transforaminal epidural injection provided more than 50% relief for over three months - Activities of Daily Living: Pain affects leg elevation PFSH Medical History Diabetes GERD (gastroesophageal reflux disease) Bipolar 1 disorder Anxiety Depression Numbness Sleep apnea Asthma Elevated cholesterol HTN (hypertension) Surgical History History of back surgery Hx of knee surgery Hx of carpal tunnel repair Hx of cholecystectomy Hx of section Social History Are you a primary urgent care nurse practitioner to a significant other at home: No Do you presently have visiting nurse or other home services: Yes Patient Tobacco Use Status: Current everyday Tobacco user Tobacco use type: Cigarette Cigarettes Per Day: 10 Physical Exam Vital Signs: Last Vital Signs Pulse 114 H 11/18/24 09:53 Resp 16 11/18/24 09:53 BP 174/97 H 11/18/24 09:53 Pulse Ox 95 11/18/24 09:53 Oxygen Delivery Method Room Air 11/18/24 09:53 BMI result Body Mass Index 26.6 Assessment & Plan Assessment & Plan (1) Left lumbar radiculopathy: Code(s): M54.16 - Radiculopathy, lumbar region Category: Medical Plan Plan - Schedule another L4 transforaminal epidural injection to manage left leg pain. Patient was informed and verbally consented to the use of an ambient scribe for clinic note documentation during this visit. Discussion Notes I discussed with the patient that the previous L4 transforaminal epidural injection provided significant relief for over three months, and we agreed to proceed with another injection to manage her recurring left leg pain. Patient Instructions - Schedule the next L4 transforaminal epidural injection as discussed. Coding Level of Care Code Est Pt Level 3 (39956) Diagnoses Left lumbar radiculopathy M54.16
--- OUTSIDE RECORDS SUMMARY | 2024-11-18 09:59 | XMS_ITS | Clinical Summary ---
Author Organization [facility] ity Address [address] [place] [address] Care Team Providers Care Supervisor Train Operations Name Role Phone Unavailable Primary Care Provider Unavailabl e Surgical History Surgery Date Site/Laterality Comments OTHER SURGICAL HISTORY 10/30/2021 PROCEDURE: [place] LAMNOTMY INCL W/DCMPRSN NRV ROOT 1 INTRSPC [...] 2) 2019 Colorectal Cancer Screening: Colonoscopy 03/08/2022 HIV Screening 03/08/2022 Hepatitis C Screening 03/08/2022 Social Influencers of Health Screening 03/08/2022 COVID-19 Vaccine (2 - 2023-2 5 season) 2023 10/19/2020 Depression Screening 04/06/2024 Influenza Vaccine (#1) 2024 1, 04/19/2020 HIB Vaccines Aged Out No [...] age to complete this topic Meningococcal B Vaccine Aged Out No l onger eligible based on patient's age to complete this topic RSV Immunization Patients Under 20 months Aged Out No longer eligible b ased on patient's age to complete this topic Varicella Vaccines Aged Out No longer eligible based on patient's age to complete this topic Advance Directives Documents on File Type Date Recorded Patient Network Pricing Consultant Expl 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
== END 2024-11-18 10:33 | disposition home or self-care (01) ==
LOC: HO.PMC 09:48
PROVIDERS: PCP Internal Medicine; Visit Provider Internal Medicine
DX: M54.16 Radiculopathy, lumbar region (principal)
CPT/HCPCS: 99213

== ENCOUNTER → 2024-11-18 09:48 | Outpatient (BNVA) | payer OTHER, SELFPAY | PROVIDERS: PCP Internal Medicine; Visit Provider Internal Medicine | DX: M54.16 Radiculopathy, lumbar region (principal) | CPT/HCPCS: 99212 ==

== ENCOUNTER 2024-12-22 06:23 | Outpatient (REF) | payer OTHER, SELFPAY ==
--- NOTE | ~2024-12-22 | FL_ITS ---
EXAMINATION: FL GUIDANCE ONLY HISTORY: M54.16 - Radiculopathy, lumbar region COMPARISON: Correlation is made with plain films of the lumbar spine dated 01/21/2023. TECHNIQUE: Fluoroscopy time: Less than 1 minute. Cumulative Dose: 1.55 mGy. DAP: 0.151 mGym2 Images: 3. FINDINGS: Fluoroscopic spot films of the lumbar spine demonstrate a needle and contrast material inferior to the left L4 pedicle. FL/FL guidance in treatment room IMPRESSION: Fluoroscopy during procedure. Please see procedure report for additional information. Electronically signed by: Rocky Contreras MD 12/22/2024 03:01 PM EDT
--- OUTSIDE RECORDS SUMMARY | 2024-12-22 06:25 | XMS_ITS | Clinical Summary ---
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 Name Role Phone Unavailable Primary Care Provider Unavailabl e Surgical History Surgery Date Site/Laterality Comments OTHER SURGICAL HISTORY 10/30/2021 PROCEDURE: [place] LAMNOTMY INCL W/DCMPRSN NRV ROOT 1 INTRSPC [...] 03/08/2022 Social Influencers of Health Screening 03/08/2022 Depression Screening 04/06/2024 COVID-19 Vaccine (2 - 2024-2 6 season) 2024 10/19/2020 Influenza Vaccine (#1) 2024 1, 04/19/2020 HIB [...] Documents on File Type Date Recorded 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
== END 2024-12-22 06:24 | disposition home or self-care (01) ==
LOC: CF 06:23
PROVIDERS: Visit Provider Internal Medicine
DX: M54.16 Radiculopathy, lumbar region (principal)
CPT/HCPCS: 64483; J1100; J2003; Q9967

== ENCOUNTER 2024-12-22 12:32 | Outpatient (AMB) | payer OTHER, SELFPAY ==
--- NOTE | 2024-12-22 12:40 | A.OFFVIS_ITS ---
Vital Signs 12/22/24 12:44 12/22/24 13:34 Height 5 ft 4 in Weight 155 lb BMI 26.6 BP 173/100 H 157/105 H Blood Pressure Location Lt radial Lt radial Position Sitting Sitting Respiration 16 16 Pulse 78 65 Pulse Source Pulse Oximeter Pulse Oximeter Pulse Oximetry (%) 98 97 Oxygen Delivery Method Room Air Room Air Intake Visit Reasons: Left L4 TFESI Allergies morphine (From MS Contin) Allergy (Verified 11/18/24 09:54) Itching pregabalin (From Lyrica) Allergy (Verified 11/18/24 09:54) Unknown quetiapine (From Seroquel) Allergy (Verified 11/18/24 09:54) Swelling HPI HPI Left L4 TFESI: Details: Patient presents for scheduled procedure. Denies any recent cough, cold, infection, fever or other significant changes in medical history since last office visit. [facility] Medical History Diabetes GERD (gastroesophageal reflux disease) Bipolar 1 disorder Anxiety Depression Numbness Sleep apnea Asthma Elevated cholesterol HTN (hypertension) Surgical History History of back surgery Hx of knee surgery Hx of carpal tunnel repair Hx of cholecystectomy Hx of section Social History Are you a primary primary care nurse practitioner to a significant other at home: No Do you presently have visiting nurse or other home services: Yes Patient Tobacco Use Status: Current everyday Tobacco user Tobacco use type: Cigarette Cigarettes Per Day: 10 Physical Exam Vital Signs: Last Vital Signs Pulse 65 12/22/24 13:34 Resp 16 12/22/24 13:34 BP 157/105 H 12/22/24 13:34 Pulse Ox 97 12/22/24 13:34 Oxygen Delivery Method Room Air 12/22/24 13:34 BMI result Body Mass Index 26.6 Office Procedures Details: Transforaminal epidural steroid injection, Left L4 After obtaining written consent, pre-procedure blood pressure and heart rate were stable and recorded in the nursing record. The patient was placed in the prone position on the fluoroscopy table. The lumbosacral area was prepped with chloraprep, allowed to dry and draped in sterile fashion. Using fluoroscopy, the skin overlying our target was anesthetized with 0.5% lidocaine. A 22 gauge 3.5 inch spinal needle was advanced to the safe triangle in the upper pole of the left L4 foramen. No paresthesias were elicited with needle placement and aspiration was negative for blood and CSF. Correct needle position was confirmed with approximately 1 ml contrast dye (Omnipaque 180 mg/ml) injected under real-time fluoroscopy. No evidence of vascular or intrathecal uptake was seen and there was both epidural and periph eral spread of the contrast agent. 10 mg dexamethasone plus 1 ml containing 0.5% lidocaine was slowly injected. The needle was flushed and removed. The skin was cleansed and a sterile bandages were applied. The patient tolerated the procedure well and no complications were encountered. Following the procedure the patient's vital signs were stable. The patient was discharged home in good condition with post-procedural instructions. Time Out: Immediately prior to the procedure, the following was verbally confirmed that there is a signed consent form and that the correct patient, planned procedure, site and side are consistent with documentation and that necessary equipment and/or blood products are available prior to the start of the case. Complications: none EBL: <5 cc 97286 - Lumbar/Sacral Procedure code (CPT) selection complete Assessment & Plan Assessment & Plan (1) Left lumbar radiculopathy: Code(s): M54.16 - Radiculopathy, lumbar region Category: Medical Plan Patient is status post left L4 TFESI. Patient tolerated procedure well and was discharged home in stable condition with discharge instructions. All questions were answered. We will follow-up via telephone or in clinic to assess response to therapy. A follow-up appointment was made during today's visit. Orders: Orders FL guidance in treatment room 12/22/24 M54.16 - Radiculopathy, lumbar region Coding Level of Care Code Procedure Only Diagnoses Left lumbar radiculopathy M54.16 CPT Codes Transforaminal Epidural Steroid Inj - TESI 3: 82458 - Lumbar/Sacral ([id number])
[2024-12-22 12:44] VITALS: BP 173/100; PULSE 78; RESP 16; O2SAT 98; BMI 26.6
[2024-12-22 13:34] VITALS: BP 157/105; PULSE 65; RESP 16; O2SAT 97
--- OUTSIDE RECORDS SUMMARY | 2024-12-22 14:38 | XMS_ITS | Clinical Summary ---
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
== END 2024-12-22 13:38 | disposition home or self-care (01) ==
LOC: HO.PMCPRC 12:32
PROVIDERS: PCP Internal Medicine; Visit Provider Internal Medicine
DX: M54.16 Radiculopathy, lumbar region (principal)
CPT/HCPCS: 64483

== ENCOUNTER 2025-01-11 10:07 | Outpatient (AMB) | payer OTHER, SELFPAY ==
--- NOTE | 2025-01-11 10:08 | A.OFFVIS_ITS ---
Vital Signs 01/11/25 10:10 Height 5 ft 4 in Weight 155 lb BMI 26.6 BP 110/62 Blood Pressure Location Lt brachial Position Sitting Respiration 16 Pulse 80 Pulse Source Pulse Oximeter Intake Visit Reasons: s/p Left L4 TFESI Door Maker Required: No Accompanied by: Other Relationship Allergies morphine (From MS Contin) Allergy (Verified 01/11/25 10:12) Itching pregabalin (From Lyrica) Allergy (Verified 01/11/25 10:12) Unknown quetiapine (From Seroquel) Allergy (Verified 01/11/25 10:12) Swelling Medication List - Last Reconciled 01/11/25 by Robyn Watts, TERRA acetaminophen 650 mg PO TID PRN albuterol sulfate 2.5 mg inhalation BID PRN amlodipine 5 mg PO DAILY cetirizine 10 mg PO DAILY cholecalciferol (vitamin D3) 125 mcg PO DAILY clonazepam 1 mg PO BID PRN clonidine HCl 0.3 mg PO BEDTIME duloxetine 120 mg PO DAILY fluticasone propion-salmeterol 500-50 mcg/dose (Advair Diskus) 1 ea inhalation DAILY fluticasone propionate 50 mcg/actuation 2 sprays intranasal DAILY insulin glargine (Lantus U-100 Insulin) 40 units subcut BEDTIME PRN lidocaine 5% 1 patch topical DAILY lisinopril 20 mg PO DAILY mirtazapine 30 mg PO BEDTIME omeprazole 40 mg PO DAILY oxycodone 15 mg PO TID PRN prazosin 2 mg PO BEDTIME sennosides-docusate sodium 8.6-50 mg (Senna Plus) 2 tabs PO BEDTIME tirzepatide (Mounjaro) mg subcut tizanidine 4 mg PO TID trazodone 50 mg PO BEDTIME HPI HPI s/p Left L4 TFESI: Details: History of Present Illness The patient is a 54-year-old female presenting for follow-up after a transforaminal epidural steroid injection for left lumbar radiculopathy. She reports that previous injections provided significant relief, but the most recent injection in December offered only one to two weeks of partial relief, approximately 50%, before the pain returned. The pain is described as concentrated in the leg, with sensations of needles and a hot spot, and it disrupts her sleep by waking her up at night. The patient also has a history of diabetes mellitus, which she is currently managing with medication. She experiences neuropathic symptoms such as a sensation of heat and numbness in both feet, and she has not had an HbA1c test recently. Pain Description - Onset and Timing: Pain relief lasted one to two weeks after the last injection. - Quality and Character: Described as needles and a hot spot sensation. - Primary Location: Concentrated in the leg. - Exacerbating Factors: Pain disrupts sleep, waking her up at night. Physical Exam - Continues to have back pain radiaiting to the leg Pain Management - Affect: Pain impacts sleep, causing fatigue. - Analgesia: Previous injections provided partial relief; current pain management includes considering acupuncture. - Activities of Daily Living: Pain interferes with walking and daily activities. [facility] Medical History (Updated 01/11/25 @ 10:34 by Ayaan Maza MD) Diabetes GERD (gastroesophageal reflux disease) Bipolar 1 disorder Anxiety Depression Numbness Sleep apnea Asthma Elevated cholesterol HTN (hypertension) Surgical History History of back surgery Hx of knee surgery Hx of carpal tunnel repair Hx of cholecystectomy Hx of section Social History Are you a primary pediatric acute care unit nurse to a significant other at home: No Do you presently have visiting nurse or other home services: Yes Patient Tobacco Use Status: Current everyday Tobacco user Tobacco use type: Cigarette Cigarettes Per Day: 10 Physical Exam Vital Signs: Last Vital Signs Pulse 80 01/11/25 10:10 Resp 16 01/11/25 10:10 BP 110/62 01/11/25 10:10 BMI result Body Mass Index 26.6 Assessment & Plan Assessment & Plan (1) Diabetes: Code(s): E11.9 - Type 2 diabetes mellitus without complications Category: Medical (2) Post laminectomy syndrome: Code(s): M96.1 - Postlaminectomy syndrome, not elsewhere classified Category: Medical (3) Lumbar disc herniation: Code(s): M51.26 - Other intervertebral disc displacement, lumbar region Category: Medical Plan Plan Patient was informed and verbally consented to the use of an ambient scribe for clinic note documentation during this visit. 1. Left Lumbar Radiculopathy - Plan to try acupuncture as an alternative treatment option. - Follow-up appointment scheduled in six weeks to assess the effectiveness of acupuncture. 2. Diabetes Mellitus - HbA1c test ordered to assess current glycemic control. - Referral to a warhead maintenance specialist if HbA1c is greater than 8. Discussion Notes I discussed with the patient the limited relief from the recent epidural injection and the potential benefits of acupuncture as an alternative treatment. We also talked about the importance of monitoring her diabetes with an HbA1c test and the criteria for referral to a warhead maintenance specialist. Patient Instructions - Try acupuncture as recommended and monitor its effects. - Return for a follow-up appointment in six weeks. Consider repeat VANDANA. - Complete the HbA1c test as ordered and discuss results at the next visit. Orders: Orders Hemoglobin A1c 01/11/25 E11.9 - Type 2 diabetes mellitus without complications Coding Level of Care Code Est Pt Level 3 (65328) Diagnoses Diabetes E11.9 Post laminectomy syndrome M96.1 Lumbar disc herniation M51.26
[2025-01-11 10:10] VITALS: BP 110/62; PULSE 80; RESP 16; BMI 26.6
== END 2025-01-11 10:39 | disposition home or self-care (01) ==
LOC: HO.PMC 10:08
PROVIDERS: PCP Internal Medicine; Visit Provider Internal Medicine
DX: E11.9 Type 2 diabetes mellitus without complications (principal); M96.1 Postlaminectomy syndrome, not elsewhere classified; M51.26 Other intervertebral disc displacement, lumbar region
CPT/HCPCS: 99213

== ENCOUNTER → 2025-01-11 10:07 | Outpatient (BNVA) | payer OTHER, SELFPAY | PROVIDERS: PCP Internal Medicine; Visit Provider Internal Medicine | DX: M51.26 Other intervertebral disc displacement, lumbar region (principal); M96.1 Postlaminectomy syndrome, not elsewhere classified; E11.9 Type 2 diabetes mellitus without complications | CPT/HCPCS: 99212 ==

== ENCOUNTER 2025-01-11 10:57 | Outpatient (REF) | payer OTHER, SELFPAY | END 2025-01-11 10:58 | disposition home or self-care (01) | LOC: HO.10HDL 10:57 | PROVIDERS: Visit Provider Internal Medicine | DX: E11.9 Type 2 diabetes mellitus without complications (principal) | CPT/HCPCS: 36415; 83036 ==

== ENCOUNTER 2025-02-10 14:47 | Outpatient (AMB) | payer OTHER, SELFPAY ==
--- NOTE | 2025-02-10 15:14 | HO.SPINEOV ---
Intake Visit Reasons: sciatic pain radiating to leg Intake Note: Ms. Gregg Silvestre is here today c/o Sciatica pain that radiates to the legs. 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 We previously did left side at L4-5 decompression. She continued to have postoperative pain. Subsequent follow up imaging did not show any nerve compression. She has been following up in your office and came down today to see if we had any other thoughts on her situation. Unfortunately we do not have any surgical intervention to offer her. She mentioned that the possibility of his spinal cord stimulator was discussed. She was concerned about her A1c level, but the most recent labs looks like it was down to 7. I urged her to follow up with your office to see if spinal cord stem is something that might be an option for her. We would be happy to see her back down the road if anything changes. Total amount of time spent in this visit was 20 minutes in discussion of symptoms, lumbar imaging results and subsequent plan of care Jose Colmenares MD,PhD [facility] Coding Level of Care Code Est Pt Level 3 (23533) Diagnoses Lumbar disc herniation M51.26
--- OUTSIDE RECORDS SUMMARY | 2025-02-10 16:13 | XMS_ITS | Data Portability ---
Author Organization JEAN PAUL - Boyd Nelson Ndju[facility], [facility] Address [address] [place] [address] Assessment Encounter Date Assessment Date Assessment LastModified [...] New bilateral knees, room 303 2023 024 ger[facility], [address], [facility] [address], [place], [address], 4 14:34:13 Medication Orders None recorded. Patient TargetsNo targets recorded. Patient InstructionsNo instructions recorded. Reason for Referral None Reported. Results Created Date Observation Date Name Description Value Unit Range Abnormal Flag Note LastModifiedBy Organization Detail LastModifiedTime 12/04/19 24 12/19/2018 imagi ng/di agnos tic resul t No observ ation record ed. [email or web address] Not Available 11/06 19:36:15 Result Notes None recorded. Problems Name Problem SNOMED Code Status Onset Date Resolution Date Notes Provider Name and Address Organization Details Recorded Time No complaint s 253093542 Active Status: 'I'; Not Available [facility] 4 09:10:26 Chondroma lacia of right patella 411340005128 43295 Active 2015 Problem Code: M22.41; Problem Code Type: ICD-10; Status: 'A'; Not Available [facility] 4 10:55:29 Pain of left knee joint 165592531973 107 Active 2015 Problem Code: M25.562; Problem Code Type: ICD-10; Status: 'A'; Not Available [facility] 4 10:55:29 Pain of bilateral knee joints 244043908986 104 [facility] 4 14:19:55 Problem Notes None recorded. Procedures Surgical History Date Name Laterality Status Provider Name and Address Organization Details Recorded Time 4 Knee Kenalog 40 1cc Injection, Bilateral completed Antonio Drew PA-C [address] [facility] [address], [place], [address], [facility] 07/16/2023 15:44:06 Imaging Results None recorded. Procedure Notes None recorded. Medical Equipment None Reported. Allergies Allergen ID Allergen Name Allergen Category Reaction Reaction Severity Criticality Documentation Date Start Date Code Code System Note Provider Name and Address Organization Details Recorded Time 163583 gabapenti n medicatio n Not available Not available Not available 07/16/2023 20037 RxNorm TOD wu [facility] 4 14:18:37 [id number] Seroquel medicatio n Not available Not available Not available 07/16/2023 09981 RxNorm TOD wu [facility] 4 14:18:44 853095 morphine medicatio n Not available Not available Not available 07/16/2023 7052 RxNorm TOD wu [facility] 4 14:19:00 Medications Name Sig Start Date [...] Updated DateTime 07/16/2023 160.02 cm 28.3 kg/m2 94331.78 g TOD [place] [facility] 07/16/2023 14:18:13 Social History None recorded. Functional Status None recorded. Mental Status None recorded. Family History Nothing Reported. Medical History No medical history recorded. Gynecological HistoryNo gynecological history recorded. Obstetrics History GPAL:G 0 P 0 0 0 0 Past Encounters Encounter ID Performer Location Encounter Start Date Encounter Closed Date Diagnosis/Indication Diagnosis SNOMED-CT Code Diagnosis ICD10 Code Diagnosis IMO Codes Diagnosis Note [id number] [facility] [address] [place] [address] 07/16/2023 13:06:11 08/05/2023 14:13:07 Pain of bilateral knee joints 4995094926 84168 M25.569 You have been provided with a [...] following the injection. This is called a f lare . To help minimize the chances of [...] Recorded Advance Directives Directive None Recorded Payers Insurance Date Sequence Insurance Name Policy Number Policy Barrios Covered Member ID Barrios Member ID Guarantor Name 08/05/2023 1 [facility] (MEDICAID HMO) [id number] Josie Poole [id number] Josie Poole Notes Date Note Type Note Provider Name and Address Organization Details Recorded Time 07/16/2023 text/html I am seeing the patient today under the supervision of Dr. Bales who was available but who did not [...] injection was done by myself back in 2022 with excellent relief Antonio Drew PA-C [address] [facility] [address] [address], [place], [address], [facility] - [facility] 07/16/2023 15:45:10 OBGyn Episode No OBEpisode recorded.
== END 2025-02-10 15:32 | disposition home or self-care (01) ==
LOC: HO.HNS 14:47
PROVIDERS: PCP Internal Medicine; Visit Provider Physician Assistant
DX: M51.26 Other intervertebral disc displacement, lumbar region (principal)
CPT/HCPCS: 99213

== ENCOUNTER → 2025-02-10 14:47 | Outpatient (BNVA) | payer OTHER, SELFPAY | PROVIDERS: PCP Internal Medicine; Visit Provider Physician Assistant | DX: M51.26 Other intervertebral disc displacement, lumbar region (principal); M96.1 Postlaminectomy syndrome, not elsewhere classified | CPT/HCPCS: 99212 ==

== ENCOUNTER 2025-03-13 11:46 | Outpatient (AMB) | payer OTHER, SELFPAY ==
--- NOTE | 2025-03-13 11:51 | MHC.OFFVIS ---
Vital Signs 03/13/25 11:53 Height 5 ft 4 in Weight 154 lb BMI 26.4 BP 121/82 Blood Pressure Location Lt brachial Position Sitting Respiration 16 Pulse 92 Pulse Source Pulse Oximeter Pulse Oximetry (%) 95 Oxygen Delivery Method Room Air Intake Visit Reasons: 6 Week f/u Infection Control Manager Required: No Allergies morphine (From MS Contin) Allergy (Verified 03/13/25 11:54) Itching pregabalin (From Lyrica) Allergy (Verified 03/13/25 11:54) Unknown quetiapine (From Seroquel) Allergy (Verified 03/13/25 11:54) Swelling Medication List - Last Reconciled 03/13/25 by Robyn Watts LPN acetaminophen 650 mg PO TID PRN albuterol sulfate 2.5 mg inhalation BID PRN amlodipine 5 mg PO DAILY cetirizine 10 mg PO DAILY cholecalciferol (vitamin D3) 125 mcg PO DAILY clonazepam 1 mg PO BID PRN clonidine HCl 0.3 mg PO BEDTIME duloxetine 120 mg PO DAILY fluticasone propion-salmeterol 500-50 mcg/dose (Advair Diskus) 1 ea inhalation DAILY fluticasone propionate 50 mcg/actuation 2 sprays intranasal DAILY insulin glargine (Lantus U-100 Insulin) 40 units subcut BEDTIME PRN lidocaine 5% 1 patch topical DAILY lisinopril 20 mg PO DAILY mirtazapine 30 mg PO BEDTIME omeprazole 40 mg PO DAILY oxycodone 15 mg PO TID PRN prazosin 2 mg PO BEDTIME sennosides-docusate sodium 8.6-50 mg (Senna Plus) 2 tabs PO BEDTIME tirzepatide (Mounjaro) mg subcut tizanidine 4 mg PO TID trazodone 50 mg PO BEDTIME HPI HPI 6 Week f/u: Details: History of Present Illness The patient is a 54 year old female presenting for a follow-up visit regarding her chronic pain, which she reports has worsened. She was last seen about two months ago when an epidural steroid injection was deferred due to poorly controlled diabetes, and acupuncture was recommended. The patient tried acupuncture but reports that it provided no relief. Her symptoms include a persistent hot and numb sensation in the left foot. A previous injection provided 50% relief for only a few weeks. A recent hemoglobin A1c test result was 7.1%. She reports smoking two to five cigarettes per day, which she associates with anxiety and drinking coffee. Pain Description - Character: The patient describes a hot and numb sensation in her left foot. - Progression: The patient's symptoms have worsened since her last visit. - Response to Treatment: Acupuncture provided no relief, while a previous injection provided 50% relief for a few weeks. Physical Exam - Musculoskeletal: Straight leg raise is positive on the left side. Results - Labs: Hemoglobin A1c is 7.1%. Pain Management - Affect: The patient reports anxiety, which she feels is associated with her smoking. - Analgesia: The patient reports her pain is worse. - She received no benefit from acupuncture and a prior injection provided only 50% relief for a few weeks. - The patient wants to proceed with another injection. [facility] Medical History (Updated 01/11/25 @ 10:34 by Ayaan Maza MD) Diabetes GERD (gastroesophageal reflux disease) Bipolar 1 disorder Anxiety Depression Numbness Sleep apnea Asthma Elevated cholesterol HTN (hypertension) Surgical History History of back surgery Hx of knee surgery Hx of carpal tunnel repair Hx of cholecystectomy Hx of section Social History Are you a primary home health care coordinator to a significant other at home: No Do you presently have visiting nurse or other home services: Yes Patient Tobacco Use Status: Current everyday Tobacco user Tobacco use type: Cigarette Cigarettes Per Day: 10 Physical Exam Vital Signs: Last Vital Signs Pulse 92 03/13/25 11:53 Resp 16 03/13/25 11:53 BP 121/82 03/13/25 11:53 Pulse Ox 95 03/13/25 11:53 Oxygen Delivery Method Room Air 03/13/25 11:53 BMI result Body Mass Index 26.4 Assessment & Plan Assessment & Plan (1) Left lumbar radiculopathy: Code(s): M54.16 - Radiculopathy, lumbar region Category: Medical Plan Plan Patient was informed and verbally consented to the use of an ambient scribe for clinic note documentation during this visit. 1. Left Lumbar Radiculopathy - Given her worsening symptoms and the ineffectiveness of acupuncture, the plan is to proceed with another left L4 transforaminal epidural steroid injection. - If this injection does not provide significant relief for more than a few weeks, consideration will be given to a spinal cord stimulator. 2. Nicotine Dependence - The patient reports smoking 2-5 cigarettes per day. - She was counseled that smoking cessation is strongly recommended, as it is a general requirement before considering a spinal cord stimulator and can affect its efficacy. - Advised to start planning for cessation. 3. Diabetes Mellitus - The patient's recent hemoglobin A1c was 7.1%. - Although a prior injection was deferred due to her diabetes, the decision was made to proceed with the epidural steroid injection at this time. Discussion Notes I discussed with the patient that her symptoms have worsened, and we reviewed that her recent trial of acupuncture was not effective. She agreed with the plan to try another left L4 transforaminal epidural steroid injection for her left lumbar radiculopathy. I informed her that the last injection gave only 50% relief for a few weeks, and if this injection does not provide better or more durable relief, our next step will be to consider a spinal cord stimulator. I counseled her on her smoking habit, explaining that we would want her to stop smoking before proceeding with a stimulator trial, and advised her to start planning for cessation. The patient voiced understanding and we will call her to schedule the procedure once insurance authorization is received. Patient Instructions - We will schedule another steroid injection in your lower back to help with your left leg pain. - Our office will call you to set up the appointment for the injection after we get approval from your insurance company. - If this injection does not provide long-lasting relief, the next step we will discuss is a spinal cord stimulator. - It is very important to stop smoking. You will need to quit smoking before we can consider a spinal cord stimulator, so it is best to start planning to quit now. Coding Level of Care Code Est Pt Level 4 (61351) Diagnoses Left lumbar radiculopathy M54.16
[2025-03-13 11:53] VITALS: BP 121/82; PULSE 92; RESP 16; O2SAT 95; BMI 26.4
== END 2025-03-13 12:09 | disposition home or self-care (01) ==
LOC: HO.PMC 11:46
PROVIDERS: PCP Internal Medicine; Visit Provider Internal Medicine
DX: M54.16 Radiculopathy, lumbar region (principal)
CPT/HCPCS: 99214

== ENCOUNTER → 2025-03-13 11:46 | Outpatient (BNVA) | payer OTHER, SELFPAY | PROVIDERS: PCP Internal Medicine; Visit Provider Internal Medicine | DX: M54.16 Radiculopathy, lumbar region (principal); R20.0 Anesthesia of skin; F17.210 Nicotine dependence, cigarettes, uncomplicated; E11.9 Type 2 diabetes mellitus without complications; Z79.4 Long term (current) use of insulin; Z79.85 Long-term (current) use of injectable non-insulin antidiabetic drugs | CPT/HCPCS: 99212 ==